=== PATIENT | female | born 1945 | race Caucasian/White ===

== ENCOUNTER 2018-05-11 12:46 | Outpatient (REF) | payer MEDICARE, BC, SELFPAY ==
[2018-05-11 13:46] LABS: Anion Gap 5.2 mmol/L (3-11); BUN 16 mg/dL (7-18); CO2 31.8 mmol/L (21.0-32.0); CREATININE 1.05 mg/dL (0.55-1.02); Calcium 9.4 mg/dL (8.5-10.1); Chloride 101 mmol/L (98-107); Estimated GFR 51.37 (mL/min/1.73m2); Glucose 179 mg/dL (70-100); Sodium 138 mmol/L (136-145)
== END 2018-05-11 13:06 ==
LOC: NCHCN 12:46
PROVIDERS: PCP Internal Medicine; Visit Provider Internal Medicine
DX: E10.9 Type 1 diabetes mellitus without complications (principal)
CPT/HCPCS: 80048

== ENCOUNTER 2018-05-24 00:45 | Outpatient (CLI) | payer MEDICARE, BC, SELFPAY ==
--- NOTE | 2018-05-24 09:15 | DI.CT_ITS ---
SYMPTOMS/DIAGNOSIS: PAROTID GLAND MASS, K11.[address]: CT scan of the neck was performed following the uneventful administration of intravenous contrast material. There are no priors for comparison. In the right parotid gland, there is an enhancing mass with cystic and solid components. The mass measures 2.9 cm AP x 2.6 cm transverse x 2.7 cm craniocaudad. No other right parotid masses are identified. The left parotid gland has a normal appearance. The submandibular glands are unremarkable. No significant cervical adenopathy is appreciated. The orbits and retro-orbital soft tissues are unremarkable. There is a mucous retention cyst or polyp in the right maxillary sinus. There is mild mucosal thickening in the right maxillary sinus. The remaining visualized paranasal sinuses are clear. The mastoid air cells are well pneumatized. The nasopharyngeal, oropharynx, hypopharynx and larynx are unremarkable. The thyroid gland has a normal appearance. The lung apices show no focal infiltrates. There is atherosclerosis of the cervical carotid arteries. The retropharyngeal soft tissues are unremarkable. There are degenerative changes seen in the cervical spine. IMPRESSION: 1. 2.9 cm complex right parotid mass. Differential considerations include both benign and malignant parotid tumors, lymphadenopathy or possible abscess. 2. No other cervical mass or adenopathy.
[2018-05-24] MEDS: Omnipaque 350 MG/ML 100 ML BTL IJ (09:23)
== END 2018-05-24 01:05 ==
PROVIDERS: PCP Internal Medicine; Visit Provider Internal Medicine
DX: K11.8 Other diseases of salivary glands (principal); J33.8 Other polyp of sinus
CPT/HCPCS: 70491; J3490

== ENCOUNTER 2018-11-28 14:05 | Outpatient (REF) | payer MEDICARE, BC, SELFPAY ==
[2018-11-28 22:20] LABS: Hemoglobin A1C 8.9 % (4.5-6.2)
== END 2018-11-28 14:25 ==
LOC: NCHCN 14:05
PROVIDERS: PCP Internal Medicine; Visit Provider Internal Medicine
DX: E10.9 Type 1 diabetes mellitus without complications (principal); I10 Essential (primary) hypertension; I25.810 Atherosclerosis of coronary artery bypass graft(s) without angina pectoris
CPT/HCPCS: 83036

== ENCOUNTER 2019-06-07 13:57 | Outpatient (REF) | payer MEDICARE, BC, SELFPAY ==
[2019-06-07 12:45] LABS: Anion Gap 8.2 mmol/L (3-11); BUN 16 mg/dL (7-18); CO2 28.8 mmol/L (21.0-32.0); CREATININE 0.98 mg/dL (0.55-1.02); Calculated LDL 61 mg/dL (<100); Chloride 104 mmol/L (98-107); Cholesterol 122 mg/dL (<200); Estimated GFR 55.48 (mL/min/1.73m2); Glucose 148 mg/dL (74-106); HDL Cholesterol 49 mg/dL (40-60); Potassium 4.7 mmol/L (3.5-5.1); Sodium 141 mmol/L (136-145); Triglyceride 60 mg/dL (<150)
== END 2019-06-07 14:17 ==
LOC: NCHCN 13:57
PROVIDERS: PCP Internal Medicine; Visit Provider Internal Medicine
DX: E78.5 Hyperlipidemia, unspecified (principal); I10 Essential (primary) hypertension
CPT/HCPCS: 80048; 80061

== ENCOUNTER 2019-10-23 01:13 | Outpatient (CLI) | payer MEDICARE, BC, SELFPAY ==
--- NOTE | 2019-10-23 | DI.MAMMO_ITS ---
EXAM: MG MAMMO SCREENING CLINICAL HISTORY: SCREENING, Z12.31 TECHNIQUE: Bilateral full field digital CC and MLO mammographic images were obtained with 3D tomosyn thesis and utilizing computer aided detection (CAD). COMPARISON: Available for comparison. FINDINGS: Masses/Architectural Distortion: There is an area of breast asymmetry in the medial posterior right b reast on the craniocaudad view. Microcalcifications: No suspicious pleomorphic-type are seen. Skin Thickening/Nipple Retraction: None. IMPRESSION: 1. Area of asymmetric breast tissue in the medial posterior right breast seen on the craniocaudad vie w. 2. Spot compression view and right breast ultrasound are requested for further evaluation. BI-RADS Category 0 - Assessment Incomplete: Need additional imaging evaluation Breast Density - Category C - Heterogeneously dense The mammogram demonstrates the patient's breast tissue is dense. Dense breast tissue is very common a nd is not abnormal but dense breast tissue can make it harder to find cancer on a mammogram. Also, de nse breast tissue may increase their breast cancer risk. This information [facility] the [facility] was provided to the patient to raise their awareness. Use this report when you speak wi th the patient about their risks for breast cancer, which includes their family history. At that time , you may recommend for more screening tests (Ultrasound or MRI) as they might be useful based on the ir risk. A negative radiographic report should not delay biopsy if a dominant or clinically suspicious mass is present. Up to ten percent of cancers are not identified on mammography. A negative report may reinforce clinical impression. Adenosis and dense breasts may obscure an underlying neoplasm. False positive reports average 6 to 10%. Patient will receive a letter notifying them of these results.
== END 2019-10-23 01:33 ==
PROVIDERS: PCP Internal Medicine; Visit Provider Internal Medicine
DX: Z12.31 Encounter for screening mammogram for malignant neoplasm of breast (principal); N64.89 Other specified disorders of breast
CPT/HCPCS: 77063; 77067

== ENCOUNTER 2019-11-06 01:01 | Outpatient (CLI) | payer MEDICARE, BC, SELFPAY ==
--- NOTE | 2019-11-06 09:10 | DI.MAMMO_ITS ---
EXAM: MG MAMMO SCREEN CALL BACK UNI CLINICAL HISTORY: F/U MAMMO, ASYMMETRIC BREAST TISSUE, MEDIAL POST RT BREAST TECHNIQUE: Mammograms were interpreted according to the usual protocol including computer analysis w ith CAD system, tomosynthesis and C-view imaging. COMPARISON: FINDINGS: Additional mammographic views of the right breast and right breast ultrasound are interpreted in conj unction. These examinations were obtained to evaluate questionable area asymmetric density projected in medial portion of right breast on CC view of recent mammogram. Additional mammographic views garrett l to show a discrete mass. Breast ultrasound shows no evidence of a mass or cyst. IMPRESSION: No specific evidence of malignancy at this time. Follow-up unilateral right breast mammogram recomme nded in 6 months. BI-RADS Category 3 - 6 month - Probably Benign Finding: Recommend follow-up mammography in 6 months Breast Density - Category C - Heterogeneously dense
== END 2019-11-06 01:21 ==
PROVIDERS: PCP Internal Medicine; Visit Provider Internal Medicine
DX: Z12.31 Encounter for screening mammogram for malignant neoplasm of breast (principal); R92.8 Other abnormal and inconclusive findings on diagnostic imaging of breast
CPT/HCPCS: 76642; 77063; 77067

== ENCOUNTER 2019-11-29 12:42 | Outpatient (REF) | payer MEDICARE, BC, SELFPAY | END 2019-11-29 13:02 | LOC: NCHCN 12:42 | PROVIDERS: PCP Internal Medicine; Visit Provider Internal Medicine | DX: R30.0 Dysuria (principal) | CPT/HCPCS: 87077; 87086; 87186 ==

== ENCOUNTER 2020-05-13 01:13 | Outpatient (CLI) | payer MEDICARE, BC, SELFPAY ==
--- NOTE | 2020-05-13 09:25 | DI.MAMMO_ITS ---
EXAM: MG MAMMO DIAGNOSTIC UNI CLINICAL HISTORY: DIAGNOSTIC, 6 MONTH FOLLOW UP, R92.8. TECHNIQUE: Craniocaudal and mediolateral oblique Full Field Digital Mammography views of the right b reast with Computer Aided Diagnosis followed by Tomosynthesis. COMPARISON: Priors available for comparison. FINDINGS: Mammography/Tomosynthesis: Masses/Architectural Distortion: None seen. Microcalcifictions: No suspicious pleomorphic-type are seen. Skin Thickening/Nipple Retraction: None. IMPRESSION: 1. No evidence of malignancy is noted. 2. Unless there is more urgent need, follow-up screening mammography is recommended, as per [employer] guidelines. 3. The findings were discussed with the patient on the date of the examination. BI-RADS Category 1 - Negative Breast Density - Category C - Heterogeneously dense Breast density Category C or D implies that the patient has dense breast tissue. Dense breast tissue can make it harder to find cancer on a mammogram. Dense breast tissue is also associated with an incr eased risk of breast cancer. This information about the result of the mammogram report was provided to the patient to raise their awareness. Use this report when you speak with the patient about their risks for breast cancer, which includes their family history. At that time, you may recommend additional screening tests (Ultrasoun d or MRI) as these tests may add significant information. A negative radiographic report should not delay biopsy if a dominant or clinically suspicious mass is present. Up to ten percent of cancers are not identified on mammography. A negative report may reinforce clinical impression. Adenosis and dense breasts may obscure an underlying neoplasm. False positive reports average 6 to 10%. Patient will receive a letter notifying them of these results.
== END 2020-05-13 01:14 ==
LOC: DI 01:13
PROVIDERS: PCP Internal Medicine; Visit Provider Internal Medicine
DX: R92.8 Other abnormal and inconclusive findings on diagnostic imaging of breast (principal); R92.2 Inconclusive mammogram
CPT/HCPCS: 77061; 77065; G0279

== ENCOUNTER 2020-06-19 08:53 | Outpatient (REF) | payer MEDICARE, BC, SELFPAY ==
--- OUTSIDE RECORDS SUMMARY | 2020-06-19 08:56 | XMS_ITS ---
:1945 Author Care Team Providers Name Role Phone DR. MAEGAN REY Primary Care Provider [phone] DR. MAEGAN REY Referring Provider [phone] DR. LO REY Primary Care Provider [phone] DR. LO REY Referring Provider [phone] Allergies Code Code System Name Reaction Severity Status Onset Adhesive Tape ? ? Active ? 703 RxNorm Amiodarone ? ? Active ? 623689 RxNorm Betadine ? ? Active ? 152860 RxNorm Boniva ? ? Active ? 778620 RxNorm Celebrex ? ? Active ? 2670 RxNorm Codeine ? ? Active ? DARVOCET-N ? ? Active ? 909203 RxNorm Fosamax ? ? Active ? 094451 RxNorm Macrobid ? ? Active ? 390013 RxNorm Neurontin ? ? Active ? 780 RxNorm Oxycodone ? ? Active ? 029137 RxNorm Pravachol ? ? Active ? 698822 RxNorm Zestril ? ? Active ? 468197 RxNorm Zetia ? ? Active ? 001407 RxNorm Zocor ? ? Active ? Medications Name Status Start Date Stop Date ? ? Asprin Ec Low Dose 81 mg tablet,delayed release Active ? Not available Take 1 tablet every day by oral route. atorvastatin 40 mg tablet Active ? Not av ailable Take 1 tablet every day by oral route for 90 days. bisoprolol fumarate 5 mg tablet Completed ? 01/26/2017 clindamycin HCl 300 mg capsule Completed ? 0 07/28/2016 Diovan 40 mg tablet Active ? Not availabl e Take 1 tablet every day by oral route. Embrace PRO test strips Active ? Not avai lable glucagon (human recombinant) 1 mg injection kit Active ? Not available INJECT 1 MILLILITER (1 MG) BY SUBCUTANEOUS ROUTE ONCE Humalog U-100 Insulin 100 unit/mL subcutaneous solution Active ? Not available 40-50 units via insulin pump Lantus Solostar U-100 Insulin 100 unit/mL (3 mL) subcutaneous pe n Active ? Not available Inject 28 units by subcutaneous route. meclizine 25 mg tablet Active ? Not avail able as needed Prevacid 30 mg capsule,delayed release Active ? Not available Take 1 capsule every day by oral route. tramadol 37.5 mg-acetaminophen 325 mg tablet Completed ? 08/09/2017 Take 1 tablet twice a day by oral route as needed. Vitamin B1 (Thiamine) 100 mg tablet Active ? Not available Take 1 tablet every day by oral route. Vitamin B6 200 mg tablet,extended release Active ? Not available Take 1 tablet every day by oral route. Vitamin D3 50 mcg (2,000 unit) capsule Active ? Not available Take 1 capsule every day by oral route. Problems Name Status Onset Date Source ? Charcot's Joint of Foot Active 07/28/2016 ? Type 1 Diabetes Mellitus Active 07/28/2016 ? Myocardial Infarction Active 07/28/2016 ? Osteoporosis Active 01/26/2017 ? Procedures Date Name Performed by ? ? Cataract Surgery Information not avai lable ? Cholecystectomy Information not avai lable ? Removal of Ovary(s) Information not avai lable ? Removal of Fallopian Tube Information no t available ? Hysterectomy Information not avai lable ? Breast Surgery Procedure Information not available ? Cardiac Surgery Procedure Information no t available ? Back Surgery Information not avai lable Notes: amputation great,2,3,4 to e right amputtion 2 toe left Results Lab Results Date Name Specimen Result Interpretation Description Value Range Status Address ? 08/24/2017 HbA1C ? No observation ? ? ? [facility] (Hemoglobin recorded. [facility] a1C), [facility]: [address] [place] [address] 08/09/2017 Glucose, Blood ? Blood 177 ? ? [facility] - Fingerstick, arterial Glucose: mg/dl Specialty: [address] [place] [address] 02/04/2017 HbA1C ? No observation ? ? ? [facility] (Hemoglobin recorded. [facility] a1C), [facility]: [address] [place] [address] 07/29/2016 HbA1C ? No observation ? ? ? [facility] (Hemoglobin recorded. [facility] a1C), [facility]: [address] [place] [address] ? Glucose, Blood ? Blood 119 ? ? [facility] - Fingerstick, capillary Glucose: mg/dl Specialty: [address] [facility] ? Glucose, Blood ? Blood 95 ? ? [facility] - Fingerstick, capillary Glucose: mg/dl Specialty: [address] [facility] Past Encounters None recorded. Social History Tobacco Smoking Status Never Smoker Notes: 7 Vaccine List None recorded. Plan of Care Reminders Provider Appointments None ? ? recorded. Lab None ? ? recorded. Referral None ? ? recorded. Procedures None ? ? recorded. Surgeries None ? ? recorded. Imaging None ? ? recorded. Vitals 08/09/2017 01:00PM ENDOCRINOLOGY FOLLOW UP 30 Height Weight BMI Blood Pressure 172.72 cm 80.29 kg 26.9 kg/m2 146/68 mm[Hg] 01/26/2017 08:30AM ENDOCRINOLOGY FOLLOW UP 30 Height Weight BMI Blood Pressure 172.72 cm 85.28 kg 28.6 kg/m2 146/72 mm[Hg] 07/28/2016 10:30AM ENDOCRINOLOGY NEW PATIENT 60 Height Weight BMI Blood Pressure 172.72 cm 83.46 kg 28 kg/m2 122/62 mm[Hg]
[2020-06-19 13:49] LABS: Anion Gap 8.9 mmol/L (3-11); BUN 22 mg/dL (7-18); CO2 27.1 mmol/L (21.0-32.0); Calcium 9.5 mg/dL (8.5-10.1); Chloride 102 mmol/L (98-107); Estimated GFR 54.05 (mL/min/1.73m2); Glucose 270 mg/dL (74-106); Potassium 4.3 mmol/L (3.5-5.1); Sodium 138 mmol/L (136-145)
== END 2020-06-19 08:54 | disposition home or self-care (01) ==
LOC: NCHCN 08:53
PROVIDERS: PCP Internal Medicine; Visit Provider Internal Medicine
DX: I10 Essential (primary) hypertension (principal)
CPT/HCPCS: 80048

== ENCOUNTER 2020-10-28 03:44 | Outpatient (CLI) | payer MEDICARE, BC, SELFPAY ==
[2020-10-28 07:50] LABS: Platelet Count 232 10^3/uL (130-400)
[2020-10-28 08:08] LABS: Prothrombin Time 9.9 sec (9.3-11.0)
== END 2020-10-28 03:45 | disposition home or self-care (01) ==
LOC: LBO 03:44
PROVIDERS: PCP Internal Medicine; Visit Provider Internal Medicine
DX: Z01.812 Encounter for preprocedural laboratory examination (principal); I25.810 Atherosclerosis of coronary artery bypass graft(s) without angina pectoris
CPT/HCPCS: 36415; 85049; 85610

== ENCOUNTER 2020-11-12 09:45 | Outpatient (REF) | payer MEDICARE, BC, SELFPAY ==
--- NOTE | 2020-11-12 08:30 | PAPNONF_PTH ---
PATIENT: Liane Cole LOC: [facility] U#:[id number] AGE/SX: 75/F ROOM: RE11/12/[address]: Domenico Perez MD : 1945 BED: DIS: 11/12/2020 SPEC #: [id number] RECD: 11/12/20 17:57 STATUS: VERA RERandy #: [id number] RADHA: 11/12/20 08:[address]: Domenico Perez DEPT: [facility] Cytology RECD BY: Daniela Montanez ENTERED: 11/12/20 17:57 SP TYPE: FANNY LLOYD DR: Alexander Adams Tissues: 1 - BODY FLUID CYTO-FINE NEEDLE [facility]IRATE[facility] Procedures: BODY FLUID CYTO-FINE NEEDLE ASPIRATE[facility] Comments: [id number]
== END 2020-11-12 09:46 | disposition home or self-care (01) ==
LOC: LBN 09:45
PROVIDERS: PCP Internal Medicine; Visit Provider Otolaryngology
DX: K11.8 Other diseases of salivary glands (principal)
CPT/HCPCS: 88104

== ENCOUNTER 2020-11-20 01:40 | Outpatient (CLI) | payer MEDICARE, BC, SELFPAY ==
--- NOTE | 2020-11-20 | DI.CT_ITS ---
Exam(s) CT LUMBAR SPINE WO EXAM: CT LUMBAR SPINE WO CLINICAL HISTORY: SPINAL STENOSIS, M48.06,DJD,M47.9,FAILED LUMBAR MYELOGRAM. TECHNIQUE: Imaging Protocol: Axial computed tomography images with coronal and sagittal reformatted images were created and reviewed COMPARISON: CR LUMBAR SPINE COMPLETE from 07/17/2013 CR LUMBAR SPINE AP, LAT from 07/25/2013 CR LUMBAR SPINE AP, LAT from 07/25/2013 FINDINGS: The prior 2013 plain films reveal transitional anatomy, with rudimentary 12th ribs CT SCAN LUMBAR SPINE: Bones: There is fusion hardware at L4-5 level comprised of posterior fusion bars and bilateral intra pedicular screws at these 2 levels. There is also an intervertebral disc space device at L4-5 level this is not retropulsed into the spinal canal.. There are no lytic osseous lesions evident. INDIVIDUAL LEVELS: T12-L1:No disc herniation nor canal stenosis. Facet joints unremarkable. No foraminal stenosis. L1-2: No disc herniation nor canal stenosis. Facet joints unremarkable. No foraminal stenosis. L2-3: This level now exhibits decreased disc height and vacuum phenomenon and there is a prominent S chmorl's node invagination into the inferior endplate of L2. There is mild posterior bony ridging. There is posterior annular bulging at this level which flattens the thecal sac resulting in mild-mode rate central spinal canal stenosis at this level. There are moderate degenerative changes in both fa cet joints at this level. There is mild bilateral foraminal stenosis due to the disc height loss. L3-4: This is 1 level above the fusion. This level maintains normal disc height. Somewhat difficul t to evaluate the disc because of beam hardening artifact from the somewhat cephalad angulated intra pedicular screw screws at L4 level. However, there does not appear to be an obvious disc herniation and central canal dimensions are lower normal. There is mild foraminal stenosis on both sides at thi s level. L4-5: This is the level of the fusion. There is 5 millimeter anterior fixed listhesis of L4 upon L5 , this secured by the hardware. On the left side of this disc space there is posterior bony ridging which extends posteriorly 5 millimeters. This extends into the left lateral recess. Similar finding is not seen on the opposite-right side at this level. There has been removal of posterior osseous e lements. Actual central canal dimensions are within normal limits. No significant foraminal stenosi s evident at this level. L5-S1: This is 1 level below the fusion. This level exhibits normal-preserved disc height on both s ides of the disc space and no evidence of disc herniation or central canal stenosis. Exiting neural foramina are patent bilaterally. There are mild-moderate degenerative facet joint changes at this le margo The visualized sacroiliac joints and sacrum appear unremarkable. PARASPINAL SOFT TISSUES: Visualized paraspinal tissues appear unremarkable. IMPRESSION: 1. Fusion hardware at L4-5 level. Findings as above. RADIATION DOSE DELIVERED: 764.43mGy.cm Total DLP DATA REPOSITORY: All CT scans at this facility are submitted to the National Radiology Data Registry (NRDR) Dose Index Registry (DIR) with the [employer] (ACR). RADIATION OPTIMIZATION: All CT scans at this facility use at least one of these dose optimization te chniques: automated exposure control; mA and/or kV adjustment per patient size (includes targeted exa ms where dose is matched to clinical indication); or iterative reconstruction.
== END 2020-11-20 02:00 ==
PROVIDERS: PCP Internal Medicine; Visit Provider Internal Medicine
DX: M47.817 Spondylosis without myelopathy or radiculopathy, lumbosacral region (principal); M48.061 Spinal stenosis, lumbar region without neurogenic claudication; M43.26 Fusion of spine, lumbar region
CPT/HCPCS: 72131

== ENCOUNTER 2021-05-19 09:43 | Outpatient (REF) | payer MEDICARE, BC, SELFPAY ==
--- NOTE | 2021-05-19 09:00 | PAPNONF_PTH ---
PATIENT: Liane Cole LOC: [facility] U#:[id number] AGE/SX: 75/F ROOM: RE05/19/[address]: Domenico Perez MD : 1945 BED: DIS: 05/19/2021 SPEC #: [id number] RECD: 05/19/21 16:24 STATUS: VERA RERandy #: [id number] RADHA: 05/19/21 09:[address]: Domenico Perez DEPT: [facility] Cytology RECD BY: Daniela Montanez ENTERED: 05/19/21 16:25 SP TYPE: FANNY LLOYD DR: Alexander Adams Tissues: 1 - BODY FLUID CYTO-FINE NEEDLE [facility]ATE[facility] Procedures: BODY FLUID CYTO-FINE NEEDLE ASPIRATE[facility] Comments: [id number] (OFFICE SUBMITTED IN [facility])
== END 2021-05-19 09:44 | disposition home or self-care (01) ==
LOC: LBN 09:43
PROVIDERS: PCP Internal Medicine; Visit Provider Otolaryngology
DX: D37.030 Neoplasm of uncertain behavior of the parotid salivary glands (principal)
CPT/HCPCS: 88104

== ENCOUNTER 2021-06-16 18:34 | Outpatient (REF) | payer MEDICARE, BC, SELFPAY ==
[2021-06-16 14:57] LABS: Anion Gap 7.8 mmol/L (3-11); BUN 20 mg/dL (7-18); CO2 27.2 mmol/L (21.0-32.0); Chloride 103 mmol/L (98-107); Estimated GFR 53.91 (mL/min/1.73m2); Glucose 139 mg/dL (74-106); Potassium 3.9 mmol/L (3.5-5.1); Sodium 138 mmol/L (136-145)
== END 2021-06-16 18:35 | disposition home or self-care (01) ==
LOC: NCHCN 18:34
PROVIDERS: PCP Internal Medicine; Visit Provider Internal Medicine
DX: I10 Essential (primary) hypertension (principal); E10.9 Type 1 diabetes mellitus without complications
CPT/HCPCS: 80048

== ENCOUNTER 2021-06-23 01:17 | Outpatient (CLI) | payer MEDICARE, BC, SELFPAY ==
--- NOTE | 2021-06-23 | DI.MAMMO_ITS ---
Exam(s) MAMMO SCREENING EXAM: MAMMO SCREENING CLINICAL HISTORY: SCREENING, Z12.39 TECHNIQUE: Mammograms were interpreted according to the usual protocol including computer analysis w [employer] CAD system, tomosynthesis and C-view imaging. COMPARISON: 2011 through 2020 FINDINGS: The breasts are composed of heterogeneously dense fibroglandular densities, Breast Density category C . No suspicious masses or suspicious microcalcifications are seen. Scarring left upper breast related to prior biopsy. Stable area of nodularity lower inner quadrant left breast. Vascular calcification s. Pacemaker over left pectoral muscle.. No skin thickening or abnormal axillary lymph nodes are seen. There has been no significant change from prior exams. IMPRESSION: BI-RADS Cat 2 - Benign Findings Yearly screening mammography is recommended. Breast Density Category C, heterogeneously Dense. The mammogram demonstrates the patient's breast tissue is dense. Dense breast tissue is very common a nd is not abnormal but dense breast tissue can make it harder to find cancer on a mammogram. Also, de nse breast tissue may increase breast cancer risk. This information about the result of the mammogram report was provided to the patient to raise their awareness. Use this report when you speak with the patient about their risks for breast cancer, which includes their family history. At that time, you may recommend additional screening tests (Ultrasound or MRI) as they might be useful based on their r isk. A negative radiographic report should not delay biopsy if a dominant or clinically suspicious mass is present. Up to ten percent of cancers are not identified on mammography. A negative report may reinforce clinical impression. Adenosis and dense breasts may obscure an underlying neoplasm. False positive reports average 6 to 10%.
== END 2021-06-23 01:37 ==
PROVIDERS: PCP Internal Medicine; Visit Provider Internal Medicine
DX: Z12.31 Encounter for screening mammogram for malignant neoplasm of breast (principal)
CPT/HCPCS: 77063; 77067

== ENCOUNTER 2021-12-23 17:57 | Outpatient (REF) | payer MEDICARE, BC, SELFPAY ==
[2021-12-23 16:47] LABS: Bilirubin Negative (Negative); Blood Negative (Negative); Clarity Clear (Clear); Glucose 500 mg/dL (Negative); Ketones Negative (Negative); Leukocyte Esterase Moderate (Negative); Nitrite Negative (Negative); Specific Gravity >= 1.030 (1.005-1.025)
[2021-12-23 16:59] LABS: Bacteria Few HPF (Negative); Crystals Many Calcium Oxalate HPF (Negative); Epithelial Cells Many HPF (Negative); Mucus Negative (Negative); Other Cells Negative (Negative); RBC Negative HPF (0-2); WBC >50 HPF (0-5)
[2021-12-23 17:00] LABS: C & S Indicated? No/Sq. Contamination; Casts Negative LPF (Negative)
== END 2021-12-23 17:58 | disposition home or self-care (01) ==
LOC: NCHCN 17:57
PROVIDERS: PCP Internal Medicine; Visit Provider Internal Medicine
DX: N39.3 Stress incontinence (female) (male) (principal)
CPT/HCPCS: 81003; 81015; 87086

== ENCOUNTER 2021-12-24 17:10 | Outpatient (REF) | payer MEDICARE, BC, SELFPAY ==
[2021-12-24 19:19] LABS: Bilirubin Negative (Negative); Blood Negative (Negative); Clarity Clear (Clear); Glucose 500 mg/dL (Negative); Ketones Negative (Negative); Leukocyte Esterase Negative (Negative); Nitrite Negative (Negative); Specific Gravity >= 1.030 (1.005-1.025)
[2021-12-24 19:41] LABS: Bacteria Rare HPF (Negative); Epithelial Cells Few HPF (Negative); RBC 0-2 HPF (0-2)
[2021-12-24 19:42] LABS: C & S Indicated? C&S Done As Ordered; Crystals Many Calcium Oxalate HPF (Negative); Mucus Trace (Negative)
== END 2021-12-24 17:11 | disposition home or self-care (01) ==
LOC: NCHCN 17:10
PROVIDERS: PCP Internal Medicine; Visit Provider Internal Medicine
DX: N39.3 Stress incontinence (female) (male) (principal)
CPT/HCPCS: 81003; 81015; 87086

== ENCOUNTER 2022-01-18 15:27 | Outpatient (REF) | payer MEDICARE, BC, SELFPAY | END 2022-01-18 15:28 | disposition home or self-care (01) | LOC: NCHCN 15:27 | PROVIDERS: PCP Internal Medicine; Visit Provider Internal Medicine | DX: R30.0 Dysuria (principal) | CPT/HCPCS: 87077; 87086; 87186 ==

== ENCOUNTER 2022-04-27 16:50 | Outpatient (REF) | payer MEDICARE, BC, SELFPAY | END 2022-04-27 16:51 | disposition home or self-care (01) | LOC: NCHCN 16:50 | PROVIDERS: PCP Internal Medicine; Visit Provider Internal Medicine | DX: R30.0 Dysuria (principal) | CPT/HCPCS: 87077; 87086; 87186 ==

== ENCOUNTER 2022-07-07 01:33 | Outpatient (CLI) | payer MEDICARE, BC, SELFPAY ==
--- NOTE | 2022-07-07 08:20 | DI.MAMMO_ITS ---
Exam(s) MAMMO SCREENING EXAM: MAMMO SCREENING CLINICAL HISTORY: SCREENING,Z12.31 TECHNIQUE: Mammograms were interpreted according to the usual protocol including computer analysis w [employer] CAD system, tomosynthesis and C-view imaging. COMPARISON: 2013 through 2021 FINDINGS: The breasts are composed of heterogeneously dense fibroglandular densities, Breast Density category C . No suspicious masses or suspicious microcalcifications are seen. No skin thickening or abnormal axillary lymph nodes are seen. There has been no significant change from prior exams. Pacemaker again noted over the left upper pec aisha muscle. IMPRESSION: BI-RADS Category 1, Negative mammogram. Yearly screening mammography is recommended. Breast Density Category C, heterogeneously Dense. The mammogram demonstrates the patient's breast tissue is dense. Dense breast tissue is very common a nd is not abnormal but dense breast tissue can make it harder to find cancer on a mammogram. Also, de nse breast tissue may increase breast cancer risk. This information about the result of the mammogram report was provided to the patient to raise their awareness. Use this report when you speak with the patient about their risks for breast cancer, which includes their family history. At that time, you may recommend additional screening tests (Ultrasound or MRI) as they might be useful based on their r isk. A negative radiographic report should not delay biopsy if a dominant or clinically suspicious mass is present. Up to ten percent of cancers are not identified on mammography. A negative report may reinforce clinical impression. Adenosis and dense breasts may obscure an underlying neoplasm. False positive reports average 6 to 10%.
== END 2022-07-07 01:53 ==
PROVIDERS: PCP Internal Medicine; Visit Provider Internal Medicine
DX: Z12.31 Encounter for screening mammogram for malignant neoplasm of breast (principal)
CPT/HCPCS: 77063; 77067

== ENCOUNTER 2022-08-03 09:28 | Outpatient (REF) | payer MEDICARE, BC, SELFPAY ==
[2022-08-03 14:35] LABS: HCT 37.7 % (36.0-46.0); HGB 12.3 g/dL (11.2-15.7); MCH 27.5 pg (27.0-33.0); MCHC 32.6 % (32.0-36.0); MCV 84 fL (80-95); Platelet Count 214 10^3/uL (130-400); RBC 4.48 10^6/uL (3.93-5.22); RDW 13.5 % (11.7-14.6); RDW-SD 41.8 fL; WBC 9.42 10^3/uL (4.4-10.8)
[2022-08-03 15:04] LABS: Anion Gap 5.8 mmol/L (3-11); BUN 19 mg/dL (7-18); CO2 29.2 mmol/L (21.0-32.0); CREATININE 1.1 mg/dL (0.55-1.02); Calcium 9.7 mg/dL (8.5-10.1); Chloride 104 mmol/L (98-107); Estimated GFR 51.75 (mL/min/1.73m2); Glucose 222 mg/dL (74-106); Potassium 4.7 mmol/L (3.5-5.1); Sodium 139 mmol/L (136-145)
== END 2022-08-03 09:29 | disposition home or self-care (01) ==
LOC: NCHCN 09:28
PROVIDERS: PCP Internal Medicine; Visit Provider Internal Medicine
DX: I10 Essential (primary) hypertension (principal); E10.40 Type 1 diabetes mellitus with diabetic neuropathy, unspecified; I25.810 Atherosclerosis of coronary artery bypass graft(s) without angina pectoris; K21.9 Gastro-esophageal reflux disease without esophagitis; F32.89 Other specified depressive episodes; R26.89 Other abnormalities of gait and mobility
CPT/HCPCS: 80048; 85027

== ENCOUNTER 2022-12-13 14:13 | Outpatient (REF) | payer MEDICARE, BC, SELFPAY | END 2022-12-13 14:14 | disposition home or self-care (01) | LOC: LBN 14:13 | PROVIDERS: PCP Internal Medicine; Visit Provider Podiatrist | DX: L03.032 Cellulitis of left toe (principal); S90.212A Contusion of left great toe with damage to nail, initial encounter | CPT/HCPCS: 87077; 87070; 87075; 87186; 87205 ==

== ENCOUNTER → 2022-12-20 02:29 | Outpatient (CLI) | payer MEDICARE, BC, SELFPAY ==
--- NOTE | 2022-12-20 10:13 | DI.RAD_ITS ---
Exam(s) XR FOOT LT COMPLETE EXAM: XR FOOT LT COMPLETE CLINICAL HISTORY: contusion left great toe,CELLULITIS,L03.90,S90.212A. TECHNIQUE: 2D digital imaging was performed of the left foot. Three images were obtained. AP, obli que and lateral views were obtained. COMPARISON: No exams were available for comparison FINDINGS: BONES: No acute fracture is present. No bony destructive lesion is seen. There are postsurgical torres es of an arthrodesis at the interphalangeal joint of the great toe. There has been resection of the distal phalanx of the 2nd toe. JOINTS: No dislocation present. There are degenerative changes seen in the foot characterized by join t space narrowing and osteophytes. There is chronic loss of the normal alignment of the tarsometatar otis joints. SOFT TISSUE: Atherosclerosis. There is soft tissue swelling of the great toe. IMPRESSION: Soft tissue swelling of the great toe. No findings radiographically to suggest osteomyelitis. DATA REPOSITORY: RADIATION DOSE DELIVERED:
== END ==
PROVIDERS: PCP Internal Medicine; Visit Provider Podiatrist
DX: X58.XXXA Exposure to other specified factors, initial encounter (principal); S90.212A Contusion of left great toe with damage to nail, initial encounter
CPT/HCPCS: 73630

== ENCOUNTER 2023-03-02 11:26 | Outpatient (REF) | payer MEDICARE, BC, SELFPAY | END 2023-03-02 11:27 | disposition home or self-care (01) | LOC: NCHCN 11:26 | PROVIDERS: PCP Family Medicine; Visit Provider Family Medicine | DX: N39.0 Urinary tract infection, site not specified (principal); R82.89 Other abnormal findings on cytological and histological examination of urine | CPT/HCPCS: 87086 ==

== ENCOUNTER → 2023-03-23 07:54 | Outpatient (BNVA) | payer MEDICARE, BC, SELFPAY | PROVIDERS: PCP Internal Medicine; Referring Provider Internal Medicine; Visit Provider Podiatrist | DX: E10.43 Type 1 diabetes mellitus with diabetic autonomic (poly)neuropathy (principal); E10.610 Type 1 diabetes mellitus with diabetic neuropathic arthropathy; E10.621 Type 1 diabetes mellitus with foot ulcer; L84 Corns and callosities; L60.3 Nail dystrophy; L03.90 Cellulitis, unspecified; I10 Essential (primary) hypertension | CPT/HCPCS: 11055; 11720; 97597 ==

== ENCOUNTER 2023-05-22 00:13 | Inpatient (IN) | payer MEDICARE, BC, SELFPAY ==
[2023-05-22] VITALS (20 sets, daily range): BP systolic 107–212; BP diastolic 20–84; PULSE 76–92; RESP 14–20; TEMP 35.8–37; O2SAT 97–100; BMI 25.5
--- NOTE | 2023-05-22 00:35 | W.ED.GENAD ---
HPI General Mode of arrival: EMS. Date/Time Provider Initiated Documentation: 05/22/23 00:26. Limitations to Documentation: no limitations. Information obtained by: patient and EMS. HPI Narrative: 77yo F with hx DM, HTN, HLD, CAD, ICD in place, presenting with left hip pain after a fall. Was in the bathroom, thought she was close to the wall but was not, lost her balance and fell landing on her left side. No HS or LOC. Baby ASA, no other AC. Reports pain in her left hip radiating down her left thigh, denies pain or injury elsewhere. No numbness or tingling in LLE. Was in her usual state of health prior to this event. No fevers, chills, rash, nausea, vomiting, lightheadedness, numbness, weakness, chest pain, shortness of breath, syncope, presycnope, or other concerns. Related Data Home Medications Medication Instructions Recorded Confirmed insulin aspart U-100 100 unit/mL 100 unit SQ DAILY 08/28/12 05/22/23 subcutaneous cartridge (Novolog PenFill U-100 Insulin aspart) thiamine mononitrate (vit B1) 100 200 mg PO DAILY 08/28/12 05/22/23 mg tablet (Vitamin B-1 (mononitrate)) atorvastatin 20 mg tablet (Lipitor) 40 mg PO DAILY 10/18/12 05/22/23 insulin glargine 100 unit/mL 28 units SQ DAILY PRN insulin pump 10/18/12 05/22/23 subcutaneous solution (Lantus failure U-100 Insulin) acetaminophen 500 mg capsule 500 mg PO Q6H PRN 11/05/20 05/22/23 cranberry extract 250 mg capsule 250 mg PO DAILY 11/05/20 05/22/23 glucagon 1 mg/0.2 mL subcutaneous 1 mg subcut ONCE 11/05/20 05/22/23 auto-injector vitamin B complex (B 1 tab PO DAILY 11/25/21 05/22/23 Complex-Vitamin B12 tablet) esomeprazole magnesium 40 mg 40 mg PO DAILY 12/30/21 05/22/23 capsule,delayed release pyridoxine (vitamin B6) 100 mg 200 mg PO DAILY 04/29/22 05/22/23 tablet sucralfate 1 gram tablet (Carafate) 1 g PO QACHS 04/29/22 05/22/23 aspirin 81 mg tablet,delayed 81 mg PO DAILY 05/09/22 05/22/23 release insulin regular human 100 unit/mL See Rx Instructions subcut 05/09/22 05/22/23 injection solution (Novolin R USEASDIRECTD Regular U-100 Insulin) meclizine 25 mg tablet 25 mg PO .Q6hrs PRN 05/09/22 05/22/23 valsartan 40 mg tablet 40 mg PO .COMPLEX PRN 05/10/22 05/22/23 cholecalciferol (vitamin D3) 50 5,000 unit PO DAILY 10/21/22 05/22/23 mcg (2,000 unit) tablet (Vitamin D3) duloxetine 40 mg capsule,delayed 40 mg PO DAILY 10/21/22 05/22/23 release silver sulfadiazine 1 % topical 1 applic topical ONCE #50 grams 03/23/23 05/22/23 cream (Silvadene) Previous Rx's Medication Instructions Recorded silver sulfadiazine 1 % topical 1 applic topical ONCE #50 grams 03/23/23 cream (Silvadene) Allergies Allergy/AdvReac Type Severity Reaction Status Date / Time alendronate sodium Allergy Severe chest pain Verified 05/22/23 00:21 [From Fosamax] ezetimibe [From Zetia] Allergy Severe Anaphylaxsi Verified 05/22/23 00:21 s lisinopril [From Zestril] Allergy Severe angioedema Verified 05/22/23 00:21 amiodarone Allergy Mild Skin Rash Verified 05/22/23 00:21 acetaminophen Allergy Other (See Verified 05/22/23 00:21 [From Darvocet-N] Comment) amoxicillin Allergy Other (See Verified 05/22/23 00:21 Comment) iodine Allergy Keller skin Verified 05/22/23 00:21 nitrofurantoin Allergy Other (See Verified 05/22/23 00:21 [From Macrobid] Comment) oxycodone Allergy Other (See Verified 05/22/23 00:21 Comment) propoxyphene Allergy Other (See Verified 05/22/23 00:21 [From Darvocet-N] Comment) pravastatin sodium AdvReac Severe dizziness Verified 05/22/23 00:21 [From Pravachol] celecoxib [From Celebrex] AdvReac Intermediate n/v/d Verified 05/22/23 00:21 gabapentin [From Neurontin] AdvReac Intermediate n/v/d Verified 05/22/23 00:21 simvastatin [From Zocor] AdvReac Intermediate mylagia Verified 05/22/23 00:21 povidone-iodine AdvReac Mild Skin Rash Verified 05/22/23 00:21 [From Betadine] codeine [Codeine] AdvReac n/v/d Verified 05/22/23 00:21 ibandronate sodium AdvReac joint pain Verified 05/22/23 00:21 [From Boniva] propoxyphene napsylate AdvReac n/v/d Verified 05/22/23 00:21 [From Darvocet-N 100] kiwi Allergy Severe Anaphylaxsi Uncoded 05/22/23 00:21 s Ivory Soap Allergy Itching Uncoded 05/22/23 00:21 adhesive tape AdvReac Skin Rash Uncoded 05/22/23 00:21 General Stated Complaint: Fall/Non TraumaCriteria MARJORIE: 3 Review of Systems Narrative: see HPI Exam Narrative Exam Narrative: GENERAL: Alert, no acute distress. SKIN: Warm and well perfused. No rashes, bruises, discolorations or abrasions. HEAD: Atraumatic, normocephalic without edema, discoloration or evidence of trauma. NECK: Trachea midline. No discolorations or edema. CV: Regular rate and rhythm, Normal s1 and s2. No murmurs, rubs, or gallops. PV: Radial pulses 2+ bilaterally and symmetric. Dorsalis pedis pulses 2+ bilaterally and symmetric. 2+ capillary refill. No extremity edema. CHEST: No abrasions or ecchymosis. Chest symmetric with respirations. No chest wall tenderness. Lungs are clear to auscultation bilaterally. ABDOMEN: No ecchymosis or abrasions. Soft, nondistended, nontender. BACK: No abrasions, skin openings, or ecchymosis. Spine without bony tenderness, no step offs. PELVIC: Pelvis stable, MSK: LLE internally rotated and shortened. NEURO: Alert and oriented to person, place, and time. GCS 15. Sensation grossly intact. Strength limited 2/t pain LLE, otherwise 5/5 in bilateral UE and LE. Course Vital Signs Vital signs: Vital Signs Temperature 36 C L 05/22/23 00:12 Pulse 79 05/22/23 00:12 Respiratory Rate 17 05/22/23 00:12 Blood Pressure 207/76 H 05/22/23 00:12 Pulse Oximetry 100 05/22/23 00:12 Temperature 36 C L 05/22/23 00:12 Temperature Source Oral 05/22/23 00:12 Pulse 79 05/22/23 00:12 Respiratory Rate 17 05/22/23 00:12 Respiratory Effort Normal 05/22/23 00:24 Blood Pressure 207/76 H 05/22/23 00:12 Blood Pressure Position Supine 05/22/23 00:12 Pulse Oximetry 100 05/22/23 00:12 Oxygen Delivery Method Room Air 05/22/23 00:12 Oxygen Flow Rate 0 05/22/23 00:12 Pain Level 7 05/22/23 00:12 Medical Decision Making 77yo F with hx DM, HTN, HLD, CAD, ICD in place, presenting with left hip pain after a MFFS. Hypertensive on arrival, vital signs otherwise reassuring. LLE internally rotated and foreshortened on exam, otherwise no significant traumatic findings. Pain control with tylenol/toradol/morphine. Plain films ordered and reviewed, no displaced fracture or dislocation on my view; agree with radiology read below. If no dislocation clinically concerning for occult fracture so CT ordered and independently reviewed, agree with radiology read below with intertroch left femur fracture. Labs reviewed as below, CBC & CMP reassuring with no actionable abnormalities. Discussed with Dr. Juarez orthopedics; plan for OR today. Discussed with hospitalist decontamination worker and accepted to medicine service; awaiting transfer to the floor. Imaging Data Radiologic Study: Imaging: X-Ray Radiologist's impression: IMPRESSION: No acute fracture Radiologic Study #2: Imaging: CT Scan Radiologist's impression: IMPRESSION: 1. Acute comminuted intertrochanteric left femur fracture. 2. Probable cystitis. Quality:SDOH Health Related Social Needs: No Data to Display PFSH All Active Problems (Updated 05/22/23 @ 03:58 by Anamaria Wyman MD) Coronary artery disease (Chronic) Diabetes (Chronic) Closed hip fracture (Acute) Intertrochanteric fracture of left hip (Acute 05/22/23) Diabetes mellitus with foot ulcer due to multiple causes (Acute) Contusion of left great toe with damage to nail (Acute) Cellulitis (Acute) Dystrophia unguium (Acute) Asymmetrical sensorineural hearing loss (Acute) S/P LORETTA-BSO (Acute) Insomnia (Acute) Renal insufficiency (Chronic) Hyperlipemia (Acute) CTS (carpal tunnel syndrome) (Acute) Ventricular arrhythmia (Acute) Spinal stenosis, lumbar (Acute) spinal fusion L4/5 Degenerative joint disease of spine (Acute) Loss of balance (Acute) GERD (gastroesophageal reflux disease) (Chronic) Osteoarthritis of fingers of both hands (Acute) Mass of parotid gland (Acute) Actinic keratoses (Acute) Urinary incontinence (Acute) with recurrent UTIs ICD (implantable cardioverter-defibrillator) in place (Acute 11/13/15) Medtronic John II VR, single lead 6947, [facility] [place] 07/01/2009 CAD (coronary artery disease) (Chronic 11/13/15) 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) (06/26/09) Surgical History H/O breast biopsy History of bilateral salpingo-oophorectomy (BSO) History of cataract surgery History of total abdominal hysterectomy Hx of cholecystectomy S/P CABG (coronary artery bypass graft) (11/13/15) Family History Father Heart disease Hypertension Mother Diabetes Heart disease Hypertension Social History Smoking/Tobacco Use Status: Former Tobacco Use Smoking risk assessment performed?: Yes Alcohol Intake: current Alcohol Intake frequency: holidays/special occasions only Alcohol type: wine Drug use: Never Household members: none What is your relationship status?: Panel score (0-1 are the most socially isolated patients): 0 Discharge Plan Disposition Patient Disposition: Admit to [facility] Condition: Serious Discharge Details Chief Complaint: Fall/Non TraumaCriteria Clinical Impression: Closed hip fracture, Diabetes, Coronary artery disease Primary Care Provider: Alexander Adams ED Provider: Anamaria Wyman Home Meds and New Rx's Prescriptions: No Action aspirin 81 mg tablet,delayed release (DR/EC) 81 mg PO DAILY Novolin R Regular U100 Insulin 100 unit/mL solution See Rx Instructions subcut USEASDIRECTD Rx Instructions: use with insulin pump meclizine 25 mg tablet 25 mg PO .Q6hrs PRN silver sulfadiazine [Silvadene] 1 % cream 1 applic topical ONCE Qty: 50 0RF Rx Instructions: apply a 1.5 mm thickness vitamin B complex [B Complex-Vitamin B12] Tablet 1 tab PO DAILY acetaminophen 500 mg capsule 500 mg PO Q6H PRN glucagon 1 mg/0.2 mL auto-injector 1 mg subcut ONCE Rx Instructions: as a single dose; may repeat once after 15 minutes if no response cranberry extract 250 mg capsule 250 mg PO DAILY Rx Instructions: administer with a meal esomeprazole magnesium 40 mg capsule,delayed release(DR/EC) 40 mg PO DAILY sucralfate [Carafate] 1 gram tablet 1 g PO QACHS pyridoxine (vitamin B6) 100 mg tablet 200 mg PO DAILY valsartan 40 mg tablet 40 mg PO .COMPLEX PRN Rx Instructions: 40 mg orally three times weekly only due to low bp PRN; cholecalciferol (vitamin D3) [Vitamin D3] 50 mcg (2,000 unit) tablet 5,000 unit PO DAILY duloxetine 40 mg capsule,delayed release(DR/EC) 40 mg PO DAILY insulin aspart U-100 [Novolog PenFill U-100 Insulin] 100 UNIT/1 ML cartridge 100 unit SQ DAILY Patient Comments: pt has insulin pump dose is between 40 and 50 units daily thiamine mononitrate (vit B1) [Vitamin B-1 (mononitrate)] 100 MG tablet 200 mg PO DAILY atorvastatin [Lipitor] 20 MG tablet 40 mg PO DAILY insulin glargine [Lantus U-100 Insulin] 100 UNITS/ML solution 28 units SQ DAILY PRN (Reason: insulin pump failure)
[2023-05-22 00:49] LABS: Abs Immature Grans 0.04 10^3/uL (0.0-0.06); Absolute Basophil Count 0.07 10^3/uL (0.0-0.2); Absolute Eosinophil Count 0.27 10^3/uL (0.0-0.7); Absolute Lymphocyte Count 2.43 10^3/uL (1.2-3.4); Absolute Monocyte Count 0.62 10^3/uL (0.1-0.8); Absolute Neutrophil Count 8.91 10^3/uL (1.2-6.7); Basophils % 0.6; Eosinophils % 2.2; HCT 35.8 % (36.0-46.0); HGB 11.7 g/dL (11.2-15.7); Immature Grans % 0.3; Lymphocytes % 19.7; MCH 26.8 pg (27.0-33.0); MCHC 32.7 % (32.0-36.0); MCV 82 fL (80-95); MPV 10.4 fL (8.0-11.0); Neutrophils % 72.2; Platelet Count 213 10^3/uL (130-400); RBC 4.37 10^6/uL (3.93-5.22); RDW 14.4 % (11.7-14.6); RDW-SD 42.4 fL; WBC 12.34 10^3/uL (4.4-10.8)
[2023-05-22] MEDS: Acetaminophen 500 MG TAB 1000 MG PO (00:52)
[2023-05-22] MEDS: MORPHine 10 MG/ML VIAL 2 MG IVP ×2 (00:53→02:16)
[2023-05-22] MEDS: Ketorolac 15 MG/ML VIAL IVP (00:53)
[2023-05-22 00:59] LABS: ALT 24 U/L (14-59); AST 22 U/L (15-37); Albumin 3.3 g/dL (3.4-5.0); Alkaline Phosphatase 98 U/L (46-116); Anion Gap 9.1 mmol/L (3-11); BUN 24 mg/dL (7-18); Bilirubin, Total 0.5 mg/dL (0.2-1.0); CO2 29.9 mmol/L (21.0-32.0); CREATININE 1.2 mg/dL (0.55-1.02); Calcium 9.4 mg/dL (8.5-10.1); Chloride 103 mmol/L (98-107); Estimated GFR 46.33 (mL/min/1.73m2); Glucose 177 mg/dL (74-106); Potassium 3.9 mmol/L (3.5-5.1); Sodium 142 mmol/L (136-145); Total Protein 7.1 g/dL (6.4-8.2)
--- NOTE | 2023-05-22 01:51 | DI.VRAD_ITS ---
PROCEDURE INFORMATION: Exam: XR Right Hip Exam date and time: 05/22/2023 12:59 AM Age: 77 years old Clinical indication: Injury or trauma; Blunt trauma (contusions or hematomas); Hip; Patient HX: Fall, left leg shortened and internally rotated TECHNIQUE: Imaging protocol: Radiologic exam of the right hip. Views: 2 or 3 views hip with pelvis when performed. COMPARISON: CT LUMBAR SPINE WO 11/20/2020 8:47 AM FINDINGS: Bones/joints: Osseous alignment is normal. No acute fracture. No significant arthritic change. Orthopedic hardware noted in the lower lumbar spine. Soft tissues: Unremarkable. IMPRESSION: No acute fracture Dictated and Authenticated by: Kendrick Lam MD. Ordering:GIANNI Conrad MD
--- NOTE | 2023-05-22 03:30 | DI.RAD_ITS ---
Exam(s) CT PELVIC WO XR HIP PELVIS ADULT BL XR FEMUR LT XR HIP LT AP LAT ONLY EXAM: CT PELVIC WO and XR femur LT, XR hip LT, XR hip bilateral CLINICAL HISTORY: fall, L leg internally rotated shortned, XR neg. TECHNIQUE: Imaging Protocol: Axial computed tomography images with coronal and sagittal reformatted images were created and reviewed. Ten images of the pelvis and hips were obtained. COMPARISON: Comparison x-ray is 03/29/2013. FINDINGS: X-rays: There is an acute intertrochanteric fracture of the left femur. The fracture is impacted. T here posterior spinal rods at L4-L5. There are degenerative changes of the hips bilaterally. No hip dislocation is seen. The sacroiliac joints are intact as is the symphysis pubis. Vascular calcific ations are present. Bones: There is an acute comminuted intertrochanteric fracture of the left femur. There is impactio n of the fracture. No other fractures identified. Mild degenerative changes are seen in the hips bi laterally. The sacroiliac joints are intact. Soft Tissues: Vascular calcifications are present. There is a small fat containing umbilical hernia. The patient is status post hysterectomy. The urinary bladder is intact. There is mild thickening of the wall of the urinary bladder which may be due to underdistention. Cystitis cannot be entirely excluded. IMPRESSION: Acute comminuted impacted intertrochanteric fracture of the left femur. RADIATION DOSE DELIVERED: 545.2mGy.cm Total DLP 545.2mGy.cmTotal DLP DATA REPOSITORY: All CT scans at this facility are submitted to the National Radiology Data Registry (NRDR) Dose Index Registry (DIR) with the [employer] (ACR). RADIATION OPTIMIZATION: All CT scans at this facility use at least one of these dose optimization te chniques: automated exposure control; mA and/or kV adjustment per patient size (includes targeted exa ms where dose is matched to clinical indication); or iterative reconstruction.
--- NOTE | 2023-05-22 03:30 | RT.EKG_ITS ---
APPROVED REPORT Exam: Resting ECG Reason for Exam: Pre OP Patient Location: E HR:88 bpm ECG Measurements Heart Rate 88 AXIS MT 203 P 53 QRSd 72 QRS 42 QT 378 T 64 QTc 457 Conclusion Sinus rhythm...normal P axis, V-rate 60- 99 Low voltage, extremity and precordial leads...extremity<0.5mV, precordial<1.0mV
--- NOTE | 2023-05-22 03:31 | DI.VRAD_ITS ---
PROCEDURE INFORMATION: Exam: CT Pelvis Without Contrast; Skeletal Exam date and time: 05/22/2023 2:26 AM Age: 77 years old Clinical indication: Injury or trauma; Blunt trauma (contusions or hematomas); Left; Hip; Patient HX: Fall, L leg internally rotated \T\ shortened, XR neg TECHNIQUE: Imaging protocol: Computed tomography of the pelvis without contrast. Exam focused on the skeleton. COMPARISON: CR XR HIP PELVIS ADULT BL 05/22/2023 12:59 AM FINDINGS: Urinary bladder: Probable cystitis. Bones/joints: Acute comminuted intertrochanteric left femur fracture. Soft tissues: Unremarkable. IMPRESSION: 1. Acute comminuted intertrochanteric left femur fracture. 2. Probable cystitis. Dictated and Authenticated by: Jin Hernadez MD. Ordering:GIANNI Conrad MD
--- NOTE | 2023-05-22 03:44 | W.ORTHOCONSU ---
Assessment and Plan Assessment and plan (1) Intertrochanteric fracture of left hip: Status: Acute Assessment and plan: 77 year old female with Left hip intertroch type fracture Balance issues, mechanical fall last night. Isolated left hip injury. Previous orthopedic shoulder surgeries. Denies any other injuries. Chronic foot problems, Charcot, diabetic neuropathy up to about the ankle, and diabetic wounds and toe amputations. No active infections on the left side. No significant pre-existing hip pain. Ambulated with a walker due to neuropathy and balance issues. Medical history as documented in the chart, reviewed EMR here and at [facility] with attention to cardiac history. Forwarded information to FACULTY SUPPORT COORDINATOR's. Exam shows comfortable patient, no signs of distress, no injuries or problems about bilateral shoulders or right lower extremity. Left hip soreness, not vigorously Tefft tested. Skin intact, no notable edema or ecchymosis yet. Knee and distal without signs of injury. Stiff foot and ankle, chronic. Neuropathy but sensory at baseline distally. Sluggish cap refill, also chronic. X-rays and CT scan show isolated left hip intertrochanteric type fracture. Discussed thoroughly, heightened risk for a problem due to cardiac disease, diabetes, neuropathy, and pre-existing ambulatory dysfunction. Also significant number of allergies and medical intolerances. Decision to proceed with surgery today Left hip intramedullary nailing The risks, benefits, and alternatives were thoroughly discussed. Patient was counseled regarding pain management, expected postoperative course, and recovery timeline. All questions were answered. Informed consent was obtained. Agree and understand treatment plan. Follow up 10-14 days after surgery. Hospitalist note reviewed. Discussed with FACULTY SUPPORT COORDINATOR and emergency room doctor. [facility] All Active Problems (Updated 05/22/23 @ 06:10 by Kory Garcia MD) Coronary artery disease (Chronic) Diabetes (Chronic) Closed hip fracture (Acute) Intertrochanteric fracture of left hip (Acute 05/22/23) Diabetes mellitus with foot ulcer due to multiple causes (Acute) Contusion of left great toe with damage to nail (Acute) Cellulitis (Acute) Dystrophia unguium (Acute) Asymmetrical sensorineural hearing loss (Acute) S/P LORETTA-BSO (Acute) Insomnia (Acute) Renal insufficiency (Chronic) Hyperlipemia (Acute) CTS (carpal tunnel syndrome) (Acute) Ventricular arrhythmia (Acute) Spinal stenosis, lumbar (Acute) spinal fusion L4/5 Degenerative joint disease of spine (Acute) Loss of balance (Acute) GERD (gastroesophageal reflux disease) (Chronic) Osteoarthritis of fingers of both hands (Acute) Mass of parotid gland (Acute) Actinic keratoses (Acute) Urinary incontinence (Acute) with recurrent UTIs ICD (implantable cardioverter-defibrillator) in place (Acute 11/13/15) [employer]tr[employer] John II VR, single lead 6947, [facility] [place] CAD (coronary artery disease) (Chronic 11/13/15) 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) (06/26/09) Surgical History H/O breast biopsy History of bilateral salpingo-oophorectomy (BSO) History of cataract surgery History of total abdominal hysterectomy Hx of cholecystectomy S/P CABG (coronary artery bypass graft) (11/13/15) Family History Father Heart disease Hypertension Mother Diabetes Heart disease Hypertension Social History Smoking/Tobacco Use Status: Former Tobacco Use Smoking risk assessment performed?: Yes Alcohol Intake: current Alcohol Intake frequency: holidays/special occasions only Alcohol type: wine Drug use: Never Household members: none Housing: house What is your relationship status?: Panel score (0-1 are the most socially isolated patients): 0 Results Last Vital Signs Temp 96.8 F L 05/22/23 00:12 Pulse 80 05/22/23 00:30 Resp 18 05/22/23 01:51 BP 212/84 H 05/22/23 00:30 Pulse Ox 100 05/22/23 01:51 Labs 05/22/23 00:38 05/22/23 00:38 Labs: Laboratory Results - last 24 hr 05/22/23 00:38 WBC 12.34 H RBC 4.37 Hgb 11.7 Hct 35.8 L MCV 82 MCH 26.8 L MCHC 32.7 RDW 14.4 Plt Count 213 MPV 10.4 Immature Gran % 0.3 Neutrophils % 72.2 Lymphocytes % 19.7 Monocytes % 5.0 Eosinophils % 2.2 Basophils % 0.6 Nucleated RBC % 0.0 Absolute Neutrophils 8.91 H Absolute Lymphocytes 2.43 Absolute Monocytes 0.62 Absolute Eosinophils 0.27 Absolute Basophils 0.07 Sodium 142 Potassium 3.9 Chloride 103 Carbon Dioxide 29.9 Anion Gap 9.1 BUN 24 H Creatinine 1.2 H Est GFR (CKD-EPI 2020) 46.33 Glucose 177 H Calcium 9.4 Total Bilirubin 0.5 AST 22 ALT 24 Alkaline Phosphatase 98 Total Protein 7.1 Albumin 3.3 L
[2023-05-22 04:47] LABS: Hemoglobin A1C 7.9 % (<5.7)
--- NOTE | 2023-05-22 05:01 | DI.VRAD_ITS ---
PROCEDURE INFORMATION: Exam: XR Left Femur Exam date and time: 05/22/2023 4:31 AM Age: 77 years old Clinical indication: Pain; Hip; Patient HX: Left intertroch FX TECHNIQUE: Imaging protocol: Radiologic exam of the left femur. Views: 2 views. COMPARISON: CR XR HIP LT AP LAT ONLY 05/22/2023 4:31 AM FINDINGS: Bones/joints: Acute intertrochanteric left femur fracture. Soft tissues: Unremarkable. IMPRESSION: Acute intertrochanteric left femur fracture. Dictated and Authenticated by: Jin Hernadez MD. Ordering:GIANNI Conrad MD
--- NOTE | 2023-05-22 05:03 | DI.VRAD_ITS ---
PROCEDURE INFORMATION: Exam: XR Left Hip Exam date and time: 05/22/2023 4:31 AM Age: 77 years old Clinical indication: Hip pain; Left hip; Patient HX: Left intertroch FX TECHNIQUE: Imaging protocol: Radiologic exam of the left hip. Views: 2 or 3 views hip with pelvis when performed. COMPARISON: CT PELVIC WO 05/22/2023 2:26 AM FINDINGS: Bones/joints: Acute intertrochanteric left femur fracture. No dislocation. Soft tissues: Unremarkable. IMPRESSION: Acute intertrochanteric left femur fracture. Dictated and Authenticated by: Jin Hernadez MD. Ordering:GIANNI Conrad MD
--- NOTE | 2023-05-22 05:23 | W.PM.HP.N ---
Date of service: 05/22/23 Time of Service: 05:24 Assessment and Plan Assessment and plan (1) Intertrochanteric fracture of left hip: Start date: 05/22/23 Start time: 05:52 Status: Acute Assessment and plan: The patient comes in w/ a fall today most likely attributed by her severe neuropathy and Charcot's foot w/ Type 1 DM. She did not hit her head or have any loss of consciousness. She is able to move her extremity but it results in pain with her left hip. Her X-ray reports of acute comminuted intertrochanteric left femur fracture. -Keep NPO and continue w/ pain management to include Morphine 2mg q3h, prn -Consult Ortho for ORIF -Suspect leukocytosis is most likely reactive w/ hip fx and pain. She has no other active symptoms. (2) Diabetes: Status: Chronic Assessment and plan: She is a type 1 DM and on an insulin pump. Her A1c is 7.9 and BG is 177. -Continue w/ basal insulin rate -BG 140-180 and use prn insulin if required -Recommend to discontinue prior to surgery Qualifiers: Diabetes mellitus type: type 1 Diabetes mellitus complication status: with hyperglycemia Qualified Code(s): E10.65 - Type 1 diabetes mellitus with hyperglycemia (3) HTN (hypertension): Status: Chronic Assessment and plan: Current Cr 1.2 w/ prior on 08/03/22 and Cr 1.1. Hold PO Valsartan for now -Use IV Hydralazine for BP >150/90 Qualifiers: Hypertension type: primary hypertension Qualified Code(s): I10 - Essential (primary) hypertension (4) Hyperlipemia: Status: Acute Assessment and plan: -Hold Lipitor 40mg daily and restart once surgery completed (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 The plan is to continue w/ active surveillance for now. -Evaluated by ENT DR Ana Acuña as well as at [facility] -Cont w/ active surveillance for now (6) CAD (coronary artery disease): Status: Chronic Assessment and plan: -Hold ASA 81mg daily -Hold Lipitor 40mg daily History of Present Illness History of Present Illness Chief Complaint: L Hip Pain Narrative: The patient is a 77 y/o C M w/ PMH CAD s/p CABG, type 1 DM on an insulin pump complicated with severe neuropathy and Charcot's foot who comes in today due to a fall. She has issues w/ gait instability due to her complications with diabetes. She was in the bathroom pulling up her underpants when she fell down on her left hip. She recalls hearing a pop when she fell and then noticed her leg was rotated. She was unable to get up or ambulate but she did not hit her head or have any loss of consciousness. She had to slowly crawl, which took over 1 hour, to her living room and the call her daughter and son-in-law for help. Her pain is only present when she moves her left leg at which time it is described as an intermittent dull pain. She is able to move her bilateral lower extremities but there is no worsening numbness. She has no fever, chills or night sweats. She has no chest pain, palpitations, coughing, wheezing or dyspnea. Review of Systems Constitutional Constitutional: Denies chills, Denies fatigue, Denies fever(s), Denies headache(s), Denies night sweats and Denies weight loss Eyes Eyes: Denies blurry vision, Denies loss of vision and Denies eye pain ENT Ears, Nose, Mouth, and Throat: Reports abnormal hearing (Hx of sensoineural hearing loss), Denies otalgia, Denies headache(s), Denies nasal congestion and Denies sinus pressure Cardiovascular Cardiovascular: Denies chest pain, Denies palpitations and Denies dyspnea Respiratory Respiratory: Denies cough, Denies dyspnea and Denies wheezing Gastrointestinal Gastrointestinal: Denies abdominal pain, Denies melena, Denies hematochezia, Denies constipation, Denies diarrhea, Denies nausea and Denies vomiting Musculoskeletal Musculoskeletal: Denies joint swelling and Denies muscle weakness Neurologic Neurologic: Reports abnormal hearing (Hx of sensoineural hearing loss), Denies abnormal speech, Denies confusion, Denies headache(s), Denies loss of vision and Reports paresthesias (Neuropathy w/ Type 1 DM) Psychiatric Psychiatric: Denies anxiety, Denies confusion and Denies depression Endocrine Endocrine: Denies fatigue and Denies palpitations Allergic/Immunologic Allergic/Immunologic: Denies wheezing PFSH All Active Problems (Updated 05/22/23 @ 06:10 by Kory Garcia MD) Coronary artery disease (Chronic) Diabetes (Chronic) Closed hip fracture (Acute) Intertrochanteric fracture of left hip (Acute 05/22/23) Diabetes mellitus with foot ulcer due to multiple causes (Acute) Contusion of left great toe with damage to nail (Acute) Cellulitis (Acute) Dystrophia unguium (Acute) Asymmetrical sensorineural hearing loss (Acute) S/P LORETTA-BSO (Acute) Insomnia (Acute) Renal insufficiency (Chronic) Hyperlipemia (Acute) CTS (carpal tunnel syndrome) (Acute) Ventricular arrhythmia (Acute) Spinal stenosis, lumbar (Acute) spinal fusion L4/5 Degenerative joint disease of spine (Acute) Loss of balance (Acute) GERD (gastroesophageal reflux disease) (Chronic) Osteoarthritis of fingers of both hands (Acute) Mass of parotid gland (Acute) Actinic keratoses (Acute) Urinary incontinence (Acute) with recurrent UTIs ICD (implantable cardioverter-defibrillator) in place (Acute 11/13/15) [email or web address], single lead [id number], [facility] 07/01/2009 CAD (coronary artery disease) (Chronic 11/13/15) 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) (06/26/09) Surgical History H/O breast biopsy History of bilateral salpingo-oophorectomy (BSO) History of cataract surgery History of total abdominal hysterectomy Hx of cholecystectomy S/P CABG (coronary artery bypass graft) (11/13/15) Family History Father Heart disease Hypertension Mother Diabetes Heart disease Hypertension Social History Smoking/Tobacco Use Status: Former Tobacco Use Smoking risk assessment performed?: Yes Alcohol Intake: current Alcohol Intake frequency: holidays/special occasions only Alcohol type: wine Drug use: Never Household members: none What is your relationship status?: Panel score (0-1 are the most socially isolated patients): 0 Meds Allergies and Home Medications Allergies Allergy/AdvReac Type Severity Reaction Status Date / Time alendronate sodium Allergy Severe chest pain Verified 05/22/23 00:21 [From Fosamax] ezetimibe [From Zetia] Allergy Severe Anaphylaxsi Verified 05/22/23 00:21 s lisinopril [From Zestril] Allergy Severe angioedema Verified 05/22/23 00:21 amiodarone Allergy Mild Skin Rash Verified 05/22/23 00:21 acetaminophen Allergy Other (See Verified 05/22/23 00:21 [From Darvocet-N] Comment) amoxicillin Allergy Other (See Verified 05/22/23 00:21 Comment) iodine Allergy Keller skin Verified 05/22/23 00:21 nitrofurantoin Allergy Other (See Verified 05/22/23 00:21 [From Macrobid] Comment) oxycodone Allergy Other (See Verified 05/22/23 00:21 Comment) propoxyphene Allergy Other (See Verified 05/22/23 00:21 [From Darvocet-N] Comment) pravastatin sodium AdvReac Severe dizziness Verified 05/22/23 00:21 [From Pravachol] celecoxib [From Celebrex] AdvReac Intermediate n/v/d Verified 05/22/23 00:21 gabapentin [From Neurontin] AdvReac Intermediate n/v/d Verified 05/22/23 00:21 simvastatin [From Zocor] AdvReac Intermediate mylagia Verified 05/22/23 00:21 povidone-iodine AdvReac Mild Skin Rash Verified 05/22/23 00:21 [From Betadine] codeine [Codeine] AdvReac n/v/d Verified 05/22/23 00:21 ibandronate sodium AdvReac joint pain Verified 05/22/23 00:21 [From Boniva] propoxyphene napsylate AdvReac n/v/d Verified 05/22/23 00:21 [From Yari-N 100] kiwi Allergy Severe Anaphylaxsi Uncoded 05/22/23 00:21 s Ivory Soap Allergy Itching Uncoded 05/22/23 00:21 adhesive tape AdvReac Skin Rash Uncoded 05/22/23 00:21 Home Medications Medication Instructions Recorded Confirmed Type insulin aspart U-100 100 unit/mL 100 unit SQ DAILY 08/28/12 05/22/23 History subcutaneous cartridge (Novolog PenFill U-100 Insulin aspart) thiamine mononitrate (vit B1) 100 200 mg PO DAILY 08/28/12 05/22/23 History mg tablet (Vitamin B-1 (mononitrate)) atorvastatin 20 mg tablet (Lipitor) 40 mg PO DAILY 10/18/12 05/22/23 History insulin glargine 100 unit/mL 28 units SQ DAILY PRN insulin pump 10/18/12 05/22/23 History subcutaneous solution (Lantus failure U-100 Insulin) acetaminophen 500 mg capsule 500 mg PO Q6H PRN 11/05/20 05/22/23 History cranberry extract 250 mg capsule 250 mg PO DAILY 11/05/20 05/22/23 History glucagon 1 mg/0.2 mL subcutaneous 1 mg subcut ONCE 11/05/20 05/22/23 History auto-injector vitamin B complex (B 1 tab PO DAILY 11/25/21 05/22/23 History Complex-Vitamin B12 tablet) esomeprazole magnesium 40 mg 40 mg PO DAILY 12/30/21 05/22/23 History capsule,delayed release pyridoxine (vitamin B6) 100 mg 200 mg PO DAILY 04/29/22 05/22/23 History tablet sucralfate 1 gram tablet (Carafate) 1 g PO QACHS 04/29/22 05/22/23 History aspirin 81 mg tablet,delayed 81 mg PO DAILY 05/09/22 05/22/23 History release insulin regular human 100 unit/mL See Rx Instructions subcut 05/09/22 05/22/23 History injection solution (Novolin R USEASDIRECTD Regular U-100 Insulin) meclizine 25 mg tablet 25 mg PO .Q6hrs PRN 05/09/22 05/22/23 History valsartan 40 mg tablet 40 mg PO .COMPLEX PRN 05/10/22 05/22/23 History cholecalciferol (vitamin D3) 50 5,000 unit PO DAILY 10/21/22 05/22/23 History mcg (2,000 unit) tablet (Vitamin D3) duloxetine 40 mg capsule,delayed 40 mg PO DAILY 10/21/22 05/22/23 History release silver sulfadiazine 1 % topical 1 applic topical ONCE #50 grams 03/23/23 05/22/23 Rx cream (Silvadene) Exam Const General: cooperative, healthy appearing, comfortable, no acute distress and well developed Nutritional Appearance: average body habitus Orientation: alert, awake and oriented x3 HENNM Head: normal to inspection Ears: external ears normal General nose exam: external nose normal Face and sinus: normal facial exam Eyes General: appearance normal, both eyes and all related structures Eyelids: eyelids normal Sclera: sclerae normal Pupils: PERRL Neck Neck: normal visual inspection and no lymphadenopathy Other: Enlarged right parotid gland Resp Effort & Inspection: normal respiratory effort, able to speak in complete sentences, no audible wheezes and no cough Auscultation: clear to auscultation bilaterally Cardio Rate: regular rate Rhythm: regular rhythm Heart Sounds: S1 normal and S2 normal GI Inspection: normal to inspection Palpation: soft Percussion: normal to percussion Auscultation: normal bowel sounds Skin General skin exam: no rashes or lesions noted Wounds: no wounds Neuro General: patient alert, patient awake, patient oriented x3 and CN's II-XI intact bilaterally Speech: speech normal Extrem General: normal to inspection Other: R foot w/ all of toes surgically resected Results Imaging Additional studies: 1. Acute comminuted intertrochanteric left femur fracture. Labs 05/22/23 00:38 05/22/23 00:38 Labs: Laboratory Results - last 24 hr 05/22/23 00:38 WBC 12.34 H RBC 4.37 Hgb 11.7 Hct 35.8 L MCV 82 MCH 26.8 L MCHC 32.7 RDW 14.4 Plt Count 213 MPV 10.4 Immature Gran % 0.3 Neutrophils % 72.2 Lymphocytes % 19.7 Monocytes % 5.0 Eosinophils % 2.2 Basophils % 0.6 Nucleated RBC % 0.0 Absolute Neutrophils 8.91 H Absolute Lymphocytes 2.43 Absolute Monocytes 0.62 Absolute Eosinophils 0.27 Absolute Basophils 0.07 Sodium 142 Potassium 3.9 Chloride 103 Carbon Dioxide 29.9 Anion Gap 9.1 BUN 24 H Creatinine 1.2 H Est GFR (CKD-EPI 2020) 46.33 Glucose 177 H Hemoglobin A1c 7.9 H Calcium 9.4 Total Bilirubin 0.5 AST 22 ALT 24 Alkaline Phosphatase 98 Total Protein 7.1 Albumin 3.3 L Last Vital Signs Temp 37 C 05/22/23 05:04 Pulse 92 H 05/22/23 05:04 Resp 20 05/22/23 05:04 BP 167/55 H 05/22/23 05:04 Pulse Ox 99 05/22/23 05:04 Time Spent Time spent with Patient: 40-54 minutes Time was spent: preparing to see the patient(eg.review tests), obtaining and/or reviewing separately otained hiistory, ordering medications,tests, procedures and counseling the patient
--- NOTE | 2023-05-22 08:45 | DI.VRAD_ITS ---
PROCEDURE INFORMATION: Exam: XR Chest Exam date and time: 05/22/2023 8:33 AM Age: 77 years old Clinical indication: Other: Preop; Prior surgery; Surgery date: 6+ months; Surgery type: Pacemaker TECHNIQUE: Imaging protocol: Radiologic exam of the chest. Views: 1 view. COMPARISON: No relevant prior studies are available for comparison. FINDINGS: Tubes, catheters and devices: Cardiac pacing device. Lungs: No focal consolidation seen. Pleural spaces: No large pleural effusion seen. Heart/Mediastinum: No cardiomegaly. Bones/joints: Degenerative changes in the glenohumeral joints. IMPRESSION: No acute findings to explain reported symptoms. Dictated and Authenticated by: Carisa Erwin MD. Ordering:MELISSA Victoria MD
--- NOTE | 2023-05-22 09:34 | DI.RAD_ITS ---
Exam(s) XR PORTABLE CHEST AP EXAM: XR PORTABLE CHEST AP CLINICAL HISTORY: Preop TECHNIQUE: 2D digital imaging was performed of the chest. One image was obtained. An AP view was ob tained. COMPARISON: CR PORTABLE AP CHEST from 06/21/2009 FINDINGS: MEDIASTINUM: Normal. HEART: Normal. Status post CABG. There is a cardiac device in place. PULMONARY VASCULATURE: Normal. LUNGS: Clear. PLEURAL SPACE: No pleural effusion or pneumothorax. BONE:Within normal limits for the patient's age. There are old healed right rib fractures. There are degenerative changes seen in the shoulders bilaterally, left greater than right. OTHER FINDINGS:There are surgical clips in the right upper quadrant of the abdomen and likely reflect ing prior cholecystectomy. IMPRESSION: No acute pulmonary findings. DATA REPOSITORY: RADIATION DOSE DELIVERED:
--- NOTE | 2023-05-22 09:42 | ANES.PREOP_ITS ---
General Info Date of Service Date Performed: 05/22/23 Height: 5 ft 8 in Weight: 76.2 kg Body Mass Index (BMI): 25.5 Surgical Procedure: Operation Date: 05/22/23 08:50 Proposed Procedure Side Surgeon p Femur IM Nailing Left Julien Penaloza MD Meds Allergies and Home Medications Allergies Allergy/AdvReac Type Severity Reaction Status Date / Time alendronate sodium Allergy Severe chest pain Verified 05/22/23 00:21 [From Fosamax] ezetimibe [From Zetia] Allergy Severe Anaphylaxsi Verified 05/22/23 00:21 s lisinopril [From Zestril] Allergy Severe angioedema Verified 05/22/23 00:21 amiodarone Allergy Mild Skin Rash Verified 05/22/23 00:21 acetaminophen Allergy Other (See Verified 05/22/23 00:21 [From Darvocet-N] Comment) amoxicillin Allergy Other (See Verified 05/22/23 00:21 Comment) iodine Allergy Keller skin Verified 05/22/23 00:21 nitrofurantoin Allergy Other (See Verified 05/22/23 00:21 [From Macrobid] Comment) oxycodone Allergy Other (See Verified 05/22/23 00:21 Comment) propoxyphene Allergy Other (See Verified 05/22/23 00:21 [From Darvocet-N] Comment) pravastatin sodium AdvReac Severe dizziness Verified 05/22/23 00:21 [From Pravachol] celecoxib [From Celebrex] AdvReac Intermediate n/v/d Verified 05/22/23 00:21 gabapentin [From Neurontin] AdvReac Intermediate n/v/d Verified 05/22/23 00:21 simvastatin [From Zocor] AdvReac Intermediate mylagia Verified 05/22/23 00:21 povidone-iodine AdvReac Mild Skin Rash Verified 05/22/23 00:21 [From Betadine] codeine [Codeine] AdvReac n/v/d Verified 05/22/23 00:21 ibandronate sodium AdvReac joint pain Verified 05/22/23 00:21 [From Boniva] propoxyphene napsylate AdvReac n/v/d Verified 05/22/23 00:21 [From Darvocet-N 100] kiwi Allergy Severe Anaphylaxsi Uncoded 05/22/23 00:21 s Ivory Soap Allergy Itching Uncoded 05/22/23 00:21 adhesive tape AdvReac Skin Rash Uncoded 05/22/23 00:21 Home Medication Medication Instructions Recorded insulin aspart U-100 100 unit/mL 100 unit SQ DAILY 08/28/12 subcutaneous cartridge (Novolog PenFill U-100 Insulin aspart) thiamine mononitrate (vit B1) 100 200 mg PO DAILY 08/28/12 mg tablet (Vitamin B-1 (mononitrate)) atorvastatin 20 mg tablet (Lipitor) 40 mg PO DAILY 10/18/12 insulin glargine 100 unit/mL 28 units SQ DAILY PRN insulin pump 10/18/12 subcutaneous solution (Lantus failure U-100 Insulin) acetaminophen 500 mg capsule 500 mg PO Q6H PRN 11/05/20 cranberry extract 250 mg capsule 250 mg PO DAILY 11/05/20 glucagon 1 mg/0.2 mL subcutaneous 1 mg subcut ONCE 11/05/20 auto-injector vitamin B complex (B 1 tab PO DAILY 11/25/21 Complex-Vitamin B12 tablet) esomeprazole magnesium 40 mg 40 mg PO DAILY 12/30/21 capsule,delayed release pyridoxine (vitamin B6) 100 mg 200 mg PO DAILY 04/29/22 tablet sucralfate 1 gram tablet (Carafate) 1 g PO QACHS 04/29/22 aspirin 81 mg tablet,delayed 81 mg PO DAILY 05/09/22 release insulin regular human 100 unit/mL See Rx Instructions subcut 05/09/22 injection solution (Novolin R USEASDIRECTD Regular U-100 Insulin) meclizine 25 mg tablet 25 mg PO .Q6hrs PRN 05/09/22 valsartan 40 mg tablet 40 mg PO .COMPLEX PRN 05/10/22 cholecalciferol (vitamin D3) 50 5,000 unit PO DAILY 10/21/22 mcg (2,000 unit) tablet (Vitamin D3) duloxetine 40 mg capsule,delayed 40 mg PO DAILY 10/21/22 release silver sulfadiazine 1 % topical 1 applic topical ONCE #50 grams 03/23/23 cream (Silvadene) Current Visit Medications: Current Medications Generic Name Dose Route Start Last Admin Trade Name Freq PRN Reason Stop Dose Admin Hydralazine HCl 10 mg 05/22/23 06:22 Hydralazine 20 Mg/Ml Vial IVP Q4H PRN PRN Insulin Aspart 0 units 05/22/23 06:32 Insulin Aspart 300 Units/3 Ml Pen SC Q4H PRN PRN Protocol Morphine Sulfate 2 mg 05/22/23 06:22 Morphine 10 Mg/Ml Vial IVP Q3H PRN PRN PFSH Active Problems Active Problems: Problem Status Onset Code Coronary artery disease I25.10 Diabetes E11.9 Closed hip fracture S72.009A Intertrochanteric fracture of left hip 05/22/23 S72.142A Diabetes mellitus with foot ulcer due to multiple causes E11.621, L97.509 Contusion of left great toe with damage to nail S90.212A Cellulitis L03.90 Dystrophia unguium L60.3 Asymmetrical sensorineural hearing loss H90.3 S/P LORETTA-BSO Z90.710, Z90.722, Z90.79 Insomnia G47.00 Renal insufficiency N28.9 Hyperlipemia E78.5 CTS (carpal tunnel syndrome) G56.00 Ventricular arrhythmia I49.9 Spinal stenosis, lumbar M48.061 Degenerative joint disease of spine M47.9 Loss of balance R26.89 GERD (gastroesophageal reflux disease) K21.9 Osteoarthritis of fingers of both hands M19.041, M19.042 Mass of parotid gland K11.8 Actinic keratoses L57.0 Urinary incontinence R32 ICD (implantable cardioverter-defibrillator) in place 11/13/15 Z95.810 CAD (coronary artery disease) 11/13/15 I25.10 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 11/13/15 E10.43 Essential hypertension 11/13/15 I10 Corns and callosities L84 Tumor of parotid gland D49.0 Sinusitis J32.9 Charcot foot due to diabetes mellitus HTN (hypertension) Follow up Z09 Medical History Medical History Abnormal mammogram of right breast History of pneumothorax History of sudden cardiac arrest (06/21/09) History of sudden cardiac arrest (11/13/15) History of tobacco use Mass of right parotid gland S/P CABG (coronary artery bypass graft) (06/26/09) Surgical History Surgical History H/O breast biopsy History of bilateral salpingo-oophorectomy (BSO) History of cataract surgery History of total abdominal hysterectomy Hx of cholecystectomy S/P CABG (coronary artery bypass graft) (11/13/15) Tobacco Smoking/Tobacco Use Status: Former Tobacco Use Alcohol Alcohol Intake: current Alcohol intake frequency: holidays/special occasions only Alcohol type: wine Substance Use Substance use: Never Vital Signs and Lab Results Vital Signs Most Recent Vital Signs in EMR: Most Recent Vital Signs Temp Pulse Resp BP Pulse Ox 36.1 C L 90 18 162/80 H 98 05/22/23 07:37 05/22/23 07:37 05/22/23 07:37 05/22/23 07:37 05/22/23 07:37 Lab Results 05/22/23 00:38 05/22/23 00:38 Blood Type / Crossmatch: 2 No Data to Display Complete Blood Count: 2 White Blood Count 12.34 10^3/uL (4.4-10.8) H 05/22/23 00:38 Red Blood Count 4.37 10^6/uL (3.93-5.22) 05/22/23 00:38 Hemoglobin 11.7 g/dL (11.2-15.7) 05/22/23 00:38 Hematocrit 35.8 % (36.0-46.0) L 05/22/23 00:38 Platelet Count 213 10^3/uL (130-400) 05/22/23 00:38 Complete Metabolic Panel: 2 Sodium 142 mmol/L (136-145) 05/22/23 00:38 Potassium 3.9 mmol/L (3.5-5.1) 05/22/23 00:38 Chloride 103 mmol/L (98-107) 05/22/23 00:38 Carbon Dioxide 29.9 mmol/L (21.0-32.0) 05/22/23 00:38 BUN 24 mg/dL (7-18) H 05/22/23 00:38 Creatinine 1.2 mg/dL (0.55-1.02) H 05/22/23 00:38 Est GFR (CKD-EPI 2020) 46.33 (mL/min/1.73m2) 05/22/23 00:38 Calcium 9.4 mg/dL (8.5-10.1) 05/22/23 00:38 Albumin 3.3 g/dL (3.4-5.0) L 05/22/23 00:38 Glucose 177 mg/dL (74-106) H 05/22/23 00:38 Hemoglobin A1c 7.9 % (<5.7) H 05/22/23 00:38 Liver Function Panel: 2 Alanine Aminotransferase (ALT/SGPT) 24 U/L (14-59) 05/22/23 00: 38 Aspartate Amino Transf (AST/SGOT) 22 U/L (15-37) 05/22/23 00:38 Coagulation Panel: 2 No Data to Display Cardiac Panel: 2 No Data to Display Arterial Blood Gas: 2 No Data to Display Venous Blood Gas: 2 No Data to Display Pancreas Panel: 2 No Data to Display Thyroid Panel: 2 No Data to Display Infectious Disease: 2 No Data to Display Blood Cultures: 2 No Data to Display Toxicology Panel: 2 No Data to Display Imaging and Studies Imaging and Studies Study information below may be from another EMR and interpreted by another provider. Please see original notes in EMR for more complete details. EKG Summary: 05/22/2023: Exam: Resting ECG Reason for Exam: Pre OP Patient Location: E HR:88 bpm ECG Measurements Heart Rate 88 AXIS OK 203 P 53 QRSd 72 QRS 42 QT 378 T64 QTc 457 Conclusion Sinus rhythm...normal P axis, V-rate 60- 99 Low voltage, extremity and precordial leads...extremity<0.5mV, precordial<1.0mV Anesthesia Assessment and Plan Anesthesia History Personal History: No History of Anesthesia Complications Family History: No Family History of Anesthesia Complications Exercise Tolerance Exercise Tolerance: Metabolic Equivalents>4 Cardiac & Pulmonary Exam Cardiac Exam: Normal S1/S2 Heart Sounds Pulmonary Exam: Clear Bilateral Breath Sounds Implantable Cardiac Device Does patient have a Pacemaker or an ICD?: Yes Device Rn Admission:: [employer] Reason for Placement:: Unclear: Known past cardiac arrest Date of Last Device Interrogation:: Overdue, per note in [facility] system, Dr. Penaloza and anesthesia aware Airway Exam Known Difficult Airway: No Mallampati Class: 1 Mouth Opening: Normal (> 3cm) Thyromental Distance: Greater than 3 cm Neck Range of Motion: Full ROM Neck Circumference: Normal Teeth Condition: Removable Dentures/Plates Upper ASA Classification ASA Score: ASA 3 Emergency Case?: Yes NPO Status NPO Status: NPO Clears >2 hours, Solids >8 hours (5pm) Anesthesia Plan Resuscitation Status: Full Code Anesthesia Technique: General Anesthesia Airway Planned: Endotracheal Tube Monitors Used: Standard Monitors and SedLine Preoperative Comments:: Overdue for pacer reprogramming, per [facility] note 2019 device battery exchange. [facility] notes reviewed to include last EP visit and last stress echo completed in 2013, EF 65%.
--- NOTE | 2023-05-22 10:05 | PDOC.CMIN ---
Date of service: 05/22/23 Time of Service: 10:05 Care Management Initial Assmt Initial Assessment REASON FOR HOSPITALIZATION:: L Hip Fracture PREVIOUS FUNCTIONAL STATUS/SOCIAL/FAMILY SUPPORTS:: Liane lives in [place] alone. for 30 years to Jose, but are not together. 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 CURRENT FUNCTIONAL STATUS:: Liane was sitting up in a chair when meeting with CM. Liane discussed her family; accomplishments and expressed how proud she was of her children and grandchildren. 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 Daughter Laura lives closest to Liane and is who Liane called when she fell and broke her hip. Liane described breaking her hip was her biggest fear. ADVANCE DIRECTIVES:: None on file INSURANCE COVERAGE / FINANCIAL ISSUES:: Medicare Part A & B /[facility] CURRENT HOME/COMMUNITY SERVICES/EQUIPMENT:: Cane, 2 electric scooters, crutches, reclining chair PRIMARY CARE PHYSICIAN:: Alexander Adams M.D. PATIENT/FAMILY EDUCATION NEEDS:: Review discharge instructions and limitations, discussion of care needs including Ask Me Three TRANSPORTATION:: Via private vehicle with family PLAN:: Liane will return home. She will follow up with her PCP and discharge plan of care. [facility] All Active Problems (Updated 05/23/23 @ 12:49 by Sadie Nevarez NP) Discharge planning issues (Acute) On deep vein thrombosis (DVT) prophylaxis (Acute) Coronary artery disease (Chronic) Diabetes (Chronic) Closed hip fracture (Acute) Intertrochanteric fracture of left hip (Acute 05/22/23) Diabetes mellitus with foot ulcer due to multiple causes (Acute) Contusion of left great toe with damage to nail (Acute) Cellulitis (Acute) Dystrophia unguium (Acute) Asymmetrical sensorineural hearing loss (Acute) S/P LORETTA-BSO (Acute) Insomnia (Acute) Renal insufficiency (Chronic) Hyperlipemia (Acute) CTS (carpal tunnel syndrome) (Acute) Ventricular arrhythmia (Acute) Spinal stenosis, lumbar (Acute) spinal fusion L4/5 Degenerative joint disease of spine (Acute) Loss of balance (Acute) GERD (gastroesophageal reflux disease) (Chronic) Osteoarthritis of fingers of both hands (Acute) Mass of parotid gland (Acute) Actinic keratoses (Acute) Urinary incontinence (Acute) with recurrent UTIs ICD (implantable cardioverter-defibrillator) in place (Acute 11/13/15) Medtronic John II VR[place] 6947[place] [facility] [place] CAD (coronary artery disease) (Chronic 11/13/15) 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) (06/26/09) Surgical History H/O breast biopsy History of bilateral salpingo-oophorectomy (BSO) History of cataract surgery History of total abdominal hysterectomy Hx of cholecystectomy S/P CABG (coronary artery bypass graft) (11/13/15) Family History Father Heart disease Hypertension Mother Diabetes Heart disease Hypertension Social History Smoking/Tobacco Use Status: Former Tobacco Use Smoking risk assessment performed?: Yes Alcohol Intake: current Alcohol Intake frequency: holidays/special occasions only Alcohol type: wine Drug use: Never Household members: none Housing: house What is your relationship status?: Panel score (0-1 are the most socially isolated patients): 0 SDOH(Care Management) Screening Will the Patient Participate in the Screening?: Yes Do you worry about having a steady place to live?: no In the past 12 months, have you had to go without electric, gas, oil or water in your home?: no Have you or anyone in your house had to go without enough food to eat?: no Has lack of transportation kept you from medical appointments or from doing things needed for daily living?: no Has anyone in your support network made you feel unsafe for any reason?: no
[2023-05-22] MEDS: Lactated Ringers 1,000 ML 30 ML IV (10:07)
[2023-05-22] MEDS: ceFAZolin 2 GM/50 ML BAG 100 GM (10:35)
[2023-05-22] MEDS: EPINEPHrine 10 MG/10 ML ML (11:16)
[2023-05-22] MEDS: Bupivacaine 0.25% Pres-Free 30 ML VIAL (11:16)
--- NOTE | 2023-05-22 11:29 | W.ANESVAS ---
Arterial Line Placement Date Performed: 05/22/23 Procedure Time: 10:57 Procedure Location: Operating Room Requesting Provider: Brittaney Stratton Requesting Provider (not listed above): Dr. Penaloza aware and agrees Timeout Performed: Yes Sedation Given (Indicate Dose Given): No Sedation given Patient Mental Status: Performed under general anesthesia Sterility: Hand Hygiene, Surgical Cap, Surgical Mask, Sterile Gloves and Chlorhexidine Laterality: Right Insertion Site: Radial Arterial Line Catheter: 20G Arrow Arterial Line Procedure: Vessel accessed with needle, Vessel accessed with catheter over needle, Guidewire met resistance and Unable to advance catheter Dressing: Other Ultrasound: Sterile probe cover and gel used Ultrasound Image Saved?: No Number of Attempts (See previous attempts in note section): 2 Procedure Tolerated: No Complications and Patient tolerated well Procedure Outcome: Unsuccessful Procedure Comment:: Able to hit the artery x2, unable to thread the catheter. Decision made to abort procedure and to continue with NIBP. Performed By: Brittaney Stratton
--- NOTE | 2023-05-22 11:37 | DI.RAD_ITS ---
Exam(s) XR HIP LT IN OR EXAM: XR HIP LT IN OR CLINICAL HISTORY: left hip fracture TECHNIQUE: 2D and realtime digital imaging was performed. CONTRAST MATERIAL: Refer to procedure report. COMPARISON: CT CT PELVIC WO from 05/22/2023 CR,XR XR HIP LT AP LAT ONLY from 05/22/2023 CR,XR XR HIP PELVIS ADULT BL from 05/22/2023 FINDINGS: Fluoroscopy was provided for Dr. Penaloza during the performance of a reduction and internal fixation of intertrochanteric fracture of the left femur. Please refer to the procedure report for complete d etails. Ka,r=7.52 mGy IMPRESSION: RADIATION DOSE DELIVERED:
--- NOTE | 2023-05-22 11:42 | W.PM.OP ---
Date of service: 05/22/23 Time of Service: 10:30 Operative Note Operative Note DATE OF PROCEDURE: 05/22/23 PRE-OP DIAGNOSIS: Left hip intertrochanteric fracture POST-OP DIAGNOSIS: same PROCEDURE: Left hip intramedullary nail, CPT #81808 SURGEON: Julien Penaloza INSULATION CUPOLA OPERATOR: Soren Snow ANESTHESIA TYPE: Local By Surgeon and General LMA/ETT Refer to Anesthesia Record ESTIMATED BLOOD LOSS: 10 COMPLICATIONS: None Patient was transported to: PACU Patient's condition: stable Implants: Synthes TFNA [id number] 130 deg, 95 mm TFNA helical blade, 34 mm 5.0mm distal locking screw Indications: Please see medical record for details Procedure Description: In the operating room, general anesthesia was induced. The patient was transferred and positioned supine on the fracture table. All bony prominences were well padded. Pre-operative antibiotics were administered. C-arm fluoroscopy was used to confirm appropriate provisional fracture reduction with traction and internal rotation. The correct patient, procedure, and side of the procedure were all verified prior to incision. The Left hip was prepped and draped in the usual sterile fashion. Local anesthetic with epinephrine was infiltrated about the planned start point as well as later about the lateral entry site for cephalomedullary and distal locking screws. C-arm fluoroscopy was used to locate the appropriate start point for the guide wire on the tip of the greater trochanter. This guide wire was advanced centrally down the proximal femur to the level of the lessor trochanter. Lateral images confirmed appropriate start point on the trochanter. Next the incision was extended about the guide wire to accommodate the nailing jig and this incision was carried down through the fascia and spread apart for ease of future instrument passage. The entry reamer was inserted used to open the proximal femur. The entry reamer and guidewire were removed from the proximal femur. The appropriately selected nail was assembled on the back table to the jig and tested to ensure proper passage of the cephalomedullary drill. This implant was manually inserted into the proximal femur and advanced to the appropriate level for cephalomedullary fixation. Another incision was made laterally to accommodate the cephalomedullary aiming tube and trochar, which were advanced down to bone. The guide wire was then advanced into the femoral neck and adjusted on AP and lateral fluoroscopy until it was placed near subchondral bone in the center-center position in the femoral head. The depth gauge was used to measure the helical blade length accommodating for depth of guidewire insertion. Next, the drills were used to open the lateral cortex, drill over the wire, and the helical blade was advanced to the appropriate depth by gentle mallet blows. The set screw was engaged and backed off 180 degrees to allow for rotationally-controlled sliding and compression. Traction was released, and the fracture was compressed appropriately via the buttress and compression nut on the jig. The setscrew was then retightened. The cephalomedullary aiming guide was removed. The distal locking screw guide was inserted through another small incision down the bone. The drill was used to drill for this static locking screw and measure the length. The appropriate length screw was then inserted bicortically. The jig was removed from the nail. Final AP and lateral fluoroscopic images were taken and confirmed appropriate fracture reduction and implant placement. All wounds were copiously irrigated. Deep layers were closed using 0 vicryl in an interrupted fashion. Subcutaneous tissue was closed using 2-0 monocryl in a buried interrupted fashion. Skin glue was applied to all incisions. Incisions were covered with Mepilex Band-Aids. The patient awoke from anesthesia without complication and was transferred to the recovery room in stable condition.
--- NOTE | 2023-05-22 11:49 | PGE_ITS ---
Date of Service Date of service: 05/22/23 Time of Service: 11:49 Assessment and Plan Assessment and plan (1) Intertrochanteric fracture of left hip: Status: Acute Assessment and plan: 77-year-old female postop day #0 status post Left hip IMN Comfortable, resting in PACU after surgery, left hip dressings clean dry intact, no significant edema or ecchymosis. Left lower extremity neurovascular exam at baseline. Tolerates passive hip motion without much difficulty. Complete 24 hours postoperative antibiotics Physical therapy: Weightbearing as tolerated with assist device Pain control-Multimodal May start chemical DVT prophylaxis this evening or tomorrow morning assuming hemodynamically stable: Recommend DVT prophylaxis for total 30 days with ADELAIDA vs SQH while inpatient and typically ASA 81 mg BID as outpatient Continue mechanical DVT prophylaxis with SCDs Follow-up with Dr. Penaloza outpatient [facility] in 10-14 days Appreciate medical management and discharge when medically appropriate Postop instructions? Keep bandages clean, dry and, intact for 7 to 10 days. May then remove and leave open to air or cover incisions with Band-Aids. Objective Last Vital Signs Temp 97.0 F L 05/22/23 07:37 Pulse 90 05/22/23 07:37 Resp 18 05/22/23 07:37 BP 162/80 H 05/22/23 07:37 Pulse Ox 98 05/22/23 07:37 Laboratory Results - last 24 hr 05/22/23 00:38 WBC 12.34 H RBC 4.37 Hgb 11.7 Hct 35.8 L MCV 82 MCH 26.8 L MCHC 32.7 RDW 14.4 Plt Count 213 MPV 10.4 Immature Gran % 0.3 Neutrophils % 72.2 Lymphocytes % 19.7 Monocytes % 5.0 Eosinophils % 2.2 Basophils % 0.6 Nucleated RBC % 0.0 Absolute Neutrophils 8.91 H Absolute Lymphocytes 2.43 Absolute Monocytes 0.62 Absolute Eosinophils 0.27 Absolute Basophils 0.07 Sodium 142 Potassium 3.9 Chloride 103 Carbon Dioxide 29.9 Anion Gap 9.1 BUN 24 H Creatinine 1.2 H Est GFR (CKD-EPI 2020) 46.33 Glucose 177 H Hemoglobin A1c 7.9 H Calcium 9.4 Total Bilirubin 0.5 AST 22 ALT 24 Alkaline Phosphatase 98 Total Protein 7.1 Albumin 3.3 L Time Spent with Patient Time Spent with Patient: 25-34 minutes Time was spent: preparing to see the patient(eg.review tests), ordering medications,tests, procedures, referring, communicating with other health chiropractic care, counseling the patient and care coordination
--- NOTE | 2023-05-22 14:52 | PT.INIE ---
PT Notes Visit Reasons: L Hip Fracture Inpatient Physical Therapy Evaluation Date: 05/22/23 Referring Doctor: Dr. Penaloza PT Orders: PT CONSULT: left intertrochanteric hip fx post op day 0 s/p left IM nail Precautions: WBAT LLE with assistive device Patient Profile/Admitting Diagnosis: 77 year old female with Left hip intertroch type fracture resulting from mechanical fall. Chronic foot problems, Charcot, diabetic neuropathy up to about the ankle, and diabetic wounds and toe amputations. Social History/Home Situation: Patient lives in a private home with 3 ARLETH. She uses a cane in the home and mobility scooter in the community. 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 She admits to several falls in the past, 2 within the past 6 months. Equipment Owned/DME: cane, FWW, scooter x 2 Subjective: Liane states that she is feeling well. Her hip is aching, but at a 2/10 for pain. Objective: General Observation: Resting in bed. Insulin pump in place. No additional lines. Toes amputated at PIP joints on right foot. Multiple areas of skin breakdown on both feet. Mental Status: A&Ox3. Very pleasant and cooperative. Pain: 2/10, increasing with ambulation Vital Signs: monitored by nursing throughout ROM: Right Upper Extremity: Shoulder flexion 120*. Elbow and wrist motion WFL. Left Upper Extremity: Shoulder flexion 70*, which patient reports is her baseline. Elbow and wrist motion WFL. Right Lower Extremity: Hip flexion to 100* or greater. Knee motion WFL. Ankle motion allows 40* arc of motion. Left Lower Extremity: Hip flexion to 90* or greater. Knee motion WFL. Ankle motion resticted in all planes. Strength: Right Upper Extremity: Shoulder flexion 3-/5. Biceps 5/5. Triceps 5/5. Composition Floor Setter is strong and equal. Left Upper Extremity: Shoulder flexion 3-/5. Biceps 5/5. Triceps 5/5. Composition Floor Setter is strong and equal. Right Lower Extremity: Hip flexoin 4/5. Quads 5/5. Ankle DF 3-/5. Left Lower Extremity: Hip flexion 3-/5. Quads 3/5 or greater. Ankle DF 3-/5. Sensation: generally asensate bilat feet. States that as of this morning, she's been able to feel pressure on the plantar aspects of her feet. Bed Mobility/Transfers: rolling in bed: mod A x 2 scooting in bed: max A x 2 supine-sit: min A sit-stand: min A stand-sit: min A Gait: Ambulates 3' x 2. Initially ambulates with CGA and FWW, with max cues for LLE placement to reduce pain. On second attempt at ambulation, she has a LOB to the left, requiring mod A for recovery. Assisted to chair, where she reports significant dizziness. Nursing present and monitoring vitals. Balance: Static Sitting: good Dynamic Sitting: good Static Standing: fair Dynamic Standing: poor Special Tests: Mobility Limitations Standardized Measure [facility] AM-PAC 6 clicks Basic Mobility Inpatient Short Form: Raw Score: 14 CMS Score: 61% impairment Informed Consent/Education: Patient instructed in purpose of PT consult and plan of care. Treatment: Initial evaluation (92154) Therapeutic Exercises (36944s2): Instructed in ankle pumps and quad sets for completion between PT sessions, 1 minute each every hour seated LAQ 5x each static standing, with gentle weight shifts to left to assess for weight bearing tolerance Therapeutic Activities (12527a3): instruction if FWW management during sit<->stand transfers -performed sit-stand x 3 gait training with WBAT LLE, cues for UE support through walker instruction in bed mobility technique Assessment: Patient is a 77 year old female referred to physical therapy services with the diagnosis of left intertrochanteric femur fx, s/p IM nail, post op day 0. Patient presents with clinical signs and symptoms consistent with diagnosis, and complicated by diabetic neuropathy with h/o toe amputations, Charcot foot, and balance impairments with h/o falls. She does have diabetic shoes and a right AFO, which she does not have here with her today; would benefit from having this available to improve safety and comfort with ambulation. She currently demonstrates the following impairment level findings: 1. decreased LE strength 2. post-op pain 3. decreased activity tolerance 4. decreased balance Impairments are contributing to the following functional limitations: 1. unable to ambulate independently 2. high fall risk with balance impairment and h/o falls 3. decreased activity tolerance Patient is assessed as Moderate 30375 complexity based on the following: History: as above. Complicating factors include baseline mobility impairments, balance deficits with h/o falls, and limited sensation in LEs. Examination: functional limitations as noted above Presentation: stable Decision Making: low Goals: Goals X1 week 1. Supine-Sit : independent 2. Sit-Supine : independent 3. Sit-Stand : independent 4. Stand-Sit : independent 5. Bed-Chair : supervision with FWW 6. Chair-Bed : supervision with FWW 7. Gait : supervision with FWW x 40' Plan of Care/Treatment Plan: 1-2x/day, 7 days/week x 1 week. Plan of care has been reviewed with the FIELD OPERATIONS MANAGER providing the service under Physical Therapy direction. Initiate Physical Therapy intervention for strengthening, bed mobility, transfers, gait, stairs, balance training, use of assistive device. DISCHARGE RECOMMENDATIONS: Home with PT vs SNF for rehabilitation prior to returning home. Will closely monitor patient's progress and mobility. TREATMENT CODE/TIME: [id number]; [id number] (22200, 97056, 71999) Please sign an return this page within 30 days if you agree with the above POC. Thank you! Physician Signature Date Chelo Molina, PT, DPT [facility] All Active Problems (Updated 05/22/23 @ 06:10 by Kory Garcia MD) Coronary artery disease (Chronic) Diabetes (Chronic) Closed hip fracture (Acute) Intertrochanteric fracture of left hip (Acute 05/22/23) Diabetes mellitus with foot ulcer due to multiple causes (Acute) Contusion of left great toe with damage to nail (Acute) Cellulitis (Acute) Dystrophia unguium (Acute) Asymmetrical sensorineural hearing loss (Acute) S/P LORETTA-BSO (Acute) Insomnia (Acute) Renal insufficiency (Chronic) Hyperlipemia (Acute) CTS (carpal tunnel syndrome) (Acute) Ventricular arrhythmia (Acute) Spinal stenosis, lumbar (Acute) spinal fusion L4/5 Degenerative joint disease of spine (Acute) Loss of balance (Acute) GERD (gastroesophageal reflux disease) (Chronic) Osteoarthritis of fingers of both hands (Acute) Mass of parotid gland (Acute) Actinic keratoses (Acute) Urinary incontinence (Acute) with recurrent UTIs ICD (implantable cardioverter-defibrillator) in place (Acute 11/13/15) Medtronic John II VR, single lead 6947, [facility] [place] CAD (coronary artery disease) (Chronic 11/13/15) 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) (06/26/09) Surgical History H/O breast biopsy History of bilateral salpingo-oophorectomy (BSO) History of cataract surgery History of total abdominal hysterectomy Hx of cholecystectomy S/P CABG (coronary artery bypass graft) (11/13/15)
[2023-05-22] MEDS: ceFAZolin 1 GM/50 ML BAG IVPB ×2 (15:08→22:28)
--- NOTE | 2023-05-22 16:06 | W.ANESPOSTOP ---
Postoperative Evaluation Date, Time and Location Date Performed: 05/22/23 Time Performed: 12:00 Patient Location: PACU Vital Signs Most Recent Imported Vital Signs: Most Recent Vital Signs Temp Pulse Resp BP Pulse Ox 35.8 C L 89 14 124/69 100 05/22/23 12:16 05/22/23 13:23 05/22/23 12:16 05/22/23 13:23 05/22/23 13:23 Pain Score Most Recent Pain Score: Most Recent Pain Score Pain Level 5 05/22/23 12:16 Assessment Mental Status: Awake (Alert & Oriented to Patient Baseline) Airway and Respiratory Function: Patent airway with normal (patient baseline) respiratory exam Cardiovascular Function: Hemodynamically Stable (Difficulty obtaining accurate diastolic reading. Patient reports no dizziness or symptoms of hypotension.) Hydration Status: Adequately Hydrated Nausea & Vomiting: No Nausea or Vomiting Pain: Pt. Denies Any Pain Peripheral Nerve Block: Patient did not receive a nerve block Postoperative Comments:: Verbal reports given to family in waiting room.
[2023-05-22] MEDS: ACETAMINOPHEN 1,000 MG/100 ML BTL 400 MG IVPB (17:39)
[2023-05-22] MEDS: Pantoprazole 40 MG VIAL IVP (17:59)
[2023-05-23] MEDS: ACETAMINOPHEN 1,000 MG/100 ML BTL 400 MG IVPB ×2 (00:30→09:06)
[2023-05-23 02:21] VITALS: BP 129/71; PULSE 82; RESP 18; TEMP 35.6; O2SAT 98
[2023-05-23] MEDS: ceFAZolin 1 GM/50 ML BAG IVPB (06:22)
[2023-05-23 07:34] LABS: Abs Immature Grans 0.03 10^3/uL (0.0-0.06); Absolute Basophil Count 0.02 10^3/uL (0.0-0.2); Absolute Lymphocyte Count 1.51 10^3/uL (1.2-3.4); Absolute Monocyte Count 0.57 10^3/uL (0.1-0.8); Absolute Neutrophil Count 4.82 10^3/uL (1.2-6.7); Basophils % 0.3; Eosinophils % 2.8; HCT 30.2 % (36.0-46.0); Immature Grans % 0.4; Lymphocytes % 21.1; MCH 27.2 pg (27.0-33.0); MCHC 33.1 % (32.0-36.0); MCV 82 fL (80-95); MPV 10.8 fL (8.0-11.0); Neutrophils % 67.4; Platelet Count 161 10^3/uL (130-400); RBC 3.67 10^6/uL (3.93-5.22); RDW 14.8 % (11.7-14.6); RDW-SD 44.7 fL; WBC 7.15 10^3/uL (4.4-10.8)
[2023-05-23 07:52] LABS: Anion Gap 7.9 mmol/L (3-11); BUN 30 mg/dL (7-18); CO2 29.1 mmol/L (21.0-32.0); CREATININE 1.5 mg/dL (0.55-1.02); Calcium 8.7 mg/dL (8.5-10.1); Chloride 101 mmol/L (98-107); Estimated GFR 35.45 (mL/min/1.73m2); Glucose 136 mg/dL (74-106); Potassium 3.9 mmol/L (3.5-5.1); Sodium 138 mmol/L (136-145)
--- NOTE | 2023-05-23 08:02 | W.PM.PROGNOT ---
Date of Service Date of service: 05/23/23 Time of Service: 08:02 Assessment and Plan Assessment and plan (1) Intertrochanteric fracture of left hip: Status: Acute Assessment and plan: 77-year-old female postop day #1 status post Left hip IMN Comfortable, awake alert resting in bed. Proximal left hip dressing with dry drainage. Early surrounding ecchymosis. Distal dressing clean dry intact. Thigh compartments soft. Tolerates passive hip motion without difficulty, neurovascular exam at baseline throughout the extremity with reasonable early active range of motion. Complete 24 hours postoperative antibiotics Physical therapy: Weightbearing as tolerated with assist device Pain control-Multimodal Start chemical DVT prophylaxis: Recommend DVT prophylaxis for total 30 days with ADELAIDA vs SQH while inpatient and typically ASA 81 mg BID as outpatient Continue mechanical DVT prophylaxis with SCDs Follow-up with Dr. Penaloza outpatient [facility] in 10-14 days Appreciate medical management and discharge when medically appropriate Postop instructions? Keep bandages clean, dry and, intact for 7 to 10 days. May then remove and leave open to air or cover incisions with Band-Aids. Objective Last Vital Signs Temp 96.1 F L 05/23/23 02:21 Pulse 82 05/23/23 02:21 Resp 18 05/23/23 02:21 BP 129/71 05/23/23 02:21 Pulse Ox 98 05/23/23 02:21 Laboratory Results - last 24 hr 05/23/23 07:10 WBC 7.15 RBC 3.67 L Hgb 10.0 L Hct 30.2 L MCV 82 MCH 27.2 MCHC 33.1 RDW 14.8 H Plt Count 161 MPV 10.8 Immature Gran % 0.4 Neutrophils % 67.4 Lymphocytes % 21.1 Monocytes % 8.0 Eosinophils % 2.8 Basophils % 0.3 Nucleated RBC % 0.0 Absolute Neutrophils 4.82 Absolute Lymphocytes 1.51 Absolute Monocytes 0.57 Absolute Eosinophils 0.20 Absolute Basophils 0.02 Sodium 138 Potassium 3.9 Chloride 101 Carbon Dioxide 29.1 Anion Gap 7.9 BUN 30 H Creatinine 1.5 H Est GFR (CKD-EPI 2020) 35.45 Glucose 136 H Calcium 8.7 Time Spent with Patient Time Spent with Patient: <25 minutes Time was spent: counseling the patient
[2023-05-23 09:01] VITALS: BP 113/50; PULSE 89; RESP 18; TEMP 36.5; O2SAT 100
[2023-05-23] MEDS: Pantoprazole 40 MG VIAL IVP (09:06)
--- NOTE | 2023-05-23 10:04 | PT.INTREAT ---
PT Notes Visit Reasons: L Hip Fracture Date: 05/23/23 PRECAUTIONS: WBAT LLE with assistive device SUBJECTIVE: Pt in when approached for therapy this morning, pt agrees to participating with session. pt seen later in the afternoon after pt family has been done visiting. pt agreed to participating. OBJECTIVE: ? PAIN: Incision site 3/10 at rest during weight bearing goes up to 6/10 when pt gets tired standing or walking Therapeutic Activities [id number]: Direct one-on-one instruction in dynamic activities to improve functional performance. ?? BED MOBILITY/TRANSFERS? Rolling L/R: Supervision Supine-sit:?Supervision ? Sit-supine: Supervision? Sit-stand: ?CGA? Stand-sit: ?CGA ? Bed-Chair:? CGA? Chair-bed: CGA Provided skilled cues and instruction on performance and technique throughout. GAIT? Assistive Device: ??FWW ? Weight bearing: WBAT Assist: CGA ?WC follow for seated rest break in between distances ? Distance:?10' AM, 50'x2 pm ? Deviation: ?Antalgic gait ? ASSESSMENT:?Pt pt able to go in and out of commode and was independent with perineal care. pt requested to stay in recliner post session to be able to eat lunch sitting up in recliner vs. laying down in bed. pt reported the pain slightly increasing after reaching 50' requiring pt to take seated rest break before heading back to pt room. Plan: Continue with global strengthening and general conditioning for improved mobility and activity tolerance. TREATMENT CODE/TIME: [id number] 15mins (8:39-8:54am). [id number] 25mins (4:05-4:30pm).
--- NOTE | 2023-05-23 12:41 | PGE_ITS ---
Date of Service Date of service: 05/23/23 Time of Service: 12:41 Assessment and Plan Assessment and plan (1) Intertrochanteric fracture of left hip: Status: Acute Assessment and plan: postop day #1 status post Left hip IMN has been re-amabulated with pain controlled continue routine post operative care per orthopedics Physical therapy: Weightbearing as tolerated with assist device Pain control-Multimodal Start chemical DVT prophylaxis: Recommend DVT prophylaxis for total 30 days with ADELAIDA vs SQH while inpatient and typically ASA 81 mg BID as outpatient Continue mechanical DVT prophylaxis with SCDs Follow-up with Dr. Penaloza outpatient [facility] in 10-14 days wound/dressing instructions? Keep bandages clean, dry and, intact for 7 to 10 days. May then remove and leave open to air or cover incisions with Band-Aids. (2) Diabetes: Status: Chronic Assessment and plan: She is a type 1 DM and on an insulin pump. Her A1c is 7.9 and BG well controlled -Continue w/ basal insulin rate -BG 140-180 and use prn insulin if required Qualifiers: Diabetes mellitus complication status: with hyperglycemia Diabetes mellitus type: type 1 Qualified Code(s): E10.65 - Type 1 diabetes mellitus with hyperglycemia (3) HTN (hypertension): Status: Chronic Assessment and plan: blood pressure has been controlled off medication continue to monitor and resume when appropriate Qualifiers: Hypertension type: primary hypertension Qualified Code(s): I10 - Essential (primary) hypertension (4) Hyperlipemia: Status: Acute Assessment and plan: resume Lipitor 40mg daily (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 The plan is to continue w/ active surveillance for now. -[place] ENT DR Ana Acuña [place] [facility] [place] for now (6) CAD (coronary artery disease): Status: Chronic Assessment and plan: -continue ASA 81mg daily -continue Lipitor 40mg daily (7) On deep vein thrombosis (DVT) prophylaxis: Status: Acute Assessment and plan: enoxaparin while hospitalized asa at discharge (8) Discharge planning issues: Status: Acute Assessment and plan: PT following case management following \ discussed with DR Mauricio Subjective Subjective Patient reports: no new complaints, feels better, pain is less and afebrile; denies shortness of breath Exam Const General: cooperative, healthy appearing, comfortable, no acute distress and well developed Nutritional Appearance: average body habitus Orientation: alert, awake and oriented x3 HENMT Head: normal to inspection Ears: external ears normal General nose exam: external nose normal Face and sinus: normal facial exam Eyes General: appearance normal, both eyes and all related structures Eyelids: eyelids normal Sclera: sclerae normal Pupils: PERRL Neck Neck: normal visual inspection Resp Effort & Inspection: normal respiratory effort and able to speak in complete sentences Auscultation: clear to auscultation bilaterally Cardio Rate: regular rate Rhythm: regular rhythm GI Inspection: normal to inspection Palpation: soft Percussion: normal to percussion Auscultation: normal bowel sounds Skin General skin exam: ecchymosis Lesions: other (surgical dressing CDI) Rashes: no rashes Neuro General: patient alert, patient awake and patient oriented x3 Extrem General: normal to inspection Other: R foot w/ all of toes surgically resected Objective Last Vital Signs Temp 36.5 C 05/23/23 09:01 Pulse 89 05/23/23 09:01 Resp 18 05/23/23 09:01 BP 113/50 L 05/23/23 09:01 Pulse Ox 100 05/23/23 09:01 Laboratory Results - last 24 hr 05/23/23 07:10 WBC 7.15 RBC 3.67 L Hgb 10.0 L Hct 30.2 L MCV 82 MCH 27.2 MCHC 33.1 RDW 14.8 H Plt Count 161 MPV 10.8 Immature Gran % 0.4 Neutrophils % 67.4 Lymphocytes % 21.1 Monocytes % 8.0 Eosinophils % 2.8 Basophils % 0.3 Nucleated RBC % 0.0 Absolute Neutrophils 4.82 Absolute Lymphocytes 1.51 Absolute Monocytes 0.57 Absolute Eosinophils 0.20 Absolute Basophils 0.02 Sodium 138 Potassium 3.9 Chloride 101 Carbon Dioxide 29.1 Anion Gap 7.9 BUN 30 H Creatinine 1.5 H Est GFR (CKD-EPI 2020) 35.45 Glucose 136 H Calcium 8.7 Time Spent with Patient Time Spent with Patient: 25-34 minutes Time was spent: preparing to see the patient(eg.review tests), obtaining and/or reviewing separately otained hiistory, ordering medications,tests, procedures, indepentently interpreting results and counseling the patient
[2023-05-23] MEDS: Enoxaparin 40 MG/0.4 ML SYR SC (13:17)
--- NOTE | 2023-05-23 14:28 | CMPROGNOTE_ITS ---
Date of service: 05/23/23 Care Management Progress Note Progress Note Text Progress Note Text: S/O: Liane was sitting in her chair when meeting with CM. Liane reported that she anticipates discharge this week. Reviewed discharge planning. Pt reported she would be agreeable to PT. A: Liane, a 77 year old female who was admitted to [facility] for L Hip Fracture P: Liane will discharge when medically cleared and transport home via private vehicle. She will F/U with her PCP and plan of care. SDOH(Care Management) Screening Will the Patient Participate in the Screening?: Yes Do you worry about having a steady place to live?: no In the past 12 months, have you had to go without electric, gas, oil or water in your home?: no Have you or anyone in your house had to go without enough food to eat?: no Has lack of transportation kept you from medical appointments or from doing things needed for daily living?: no Has anyone in your support network made you feel unsafe for any reason?: no
[2023-05-23 15:59] VITALS: BP 194/78; PULSE 67; RESP 18; TEMP 36.5; O2SAT 98
[2023-05-23] MEDS: Acetaminophen 500 MG TAB 1000 MG PO ×2 (16:38→23:48)
[2023-05-23] MEDS: Sucralfate 1 GM TAB PO ×2 (16:38→19:45)
[2023-05-24] MEDS: Enoxaparin 40 MG/0.4 ML SYR SC (07:41)
[2023-05-24] MEDS: Pantoprazole 40 MG TABCR PO (07:42)
[2023-05-24] MEDS: Atorvastatin 20 MG TAB 40 MG PO (07:42)
[2023-05-24] MEDS: Cholecalciferol (Vitamin D3) 1,000 UNIT TAB 5000 UNITS PO (07:42)
[2023-05-24] MEDS: Thiamine 100 MG TAB 200 MG PO (07:42)
[2023-05-24] MEDS: Aspirin E.C. 81 MG TABEC PO (07:43)
[2023-05-24] MEDS: Acetaminophen 500 MG TAB 1000 MG PO ×3 (07:43→23:34)
[2023-05-24] MEDS: Sucralfate 1 GM TAB PO ×4 (07:43→19:55)
[2023-05-24] MEDS: Vitamins B Comp w/C TAB 1 TAB PO (07:43)
[2023-05-24] MEDS: DULoxetine 20 MG CAP 40 MG PO (07:43)
[2023-05-24 08:29] VITALS: BP 164/56; PULSE 86; RESP 18; TEMP 36.7; O2SAT 97
--- NOTE | 2023-05-24 15:11 | PGE_ITS ---
Date of Service Date of service: 05/24/23 Time of Service: 15:11 Assessment and Plan Assessment and plan (1) Intertrochanteric fracture of left hip: Status: Acute Assessment and plan: postop day #2 status post Left hip IMN has been re-amabulated with pain controlled continue routine post operative care per orthopedics Physical therapy: Weightbearing as tolerated with assist device Pain control-Multimodal Start chemical DVT prophylaxis: Recommend DVT prophylaxis for total 30 days with ADELAIDA vs SQH while inpatient and typically ASA 81 mg BID as outpatient Continue mechanical DVT prophylaxis with SCDs Follow-up with Dr. Penaloza outpatient [facility] in 10-14 days wound/dressing instructions? Keep bandages clean, dry and, intact for 7 to 10 days. May then remove and leave open to air or cover incisions with Band-Aids. (2) Diabetes: Status: Chronic Assessment and plan: She is a type 1 DM and on an insulin pump. Her A1c is 7.9 and BG mostly well controlled but had a low overnight -Continue w/ basal insulin rate -BG 140-180 and use prn insulin if required Qualifiers: Diabetes mellitus type: type 1 Diabetes mellitus complication status: with hyperglycemia Qualified Code(s): E10.65 - Type 1 diabetes mellitus with hyperglycemia (3) HTN (hypertension): Status: Chronic Assessment and plan: blood pressure elevated today, will restart home meds continue to monitor and adjust as needed Qualifiers: Hypertension type: primary hypertension Qualified Code(s): I10 - Essential (primary) hypertension (4) Hyperlipemia: Status: Acute Assessment and plan: Lipitor 40mg daily (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 The plan is to continue w/ active surveillance for now. -[place] E[place] DR Ana Acuña [place] [facility] [place] w/ [place] for now (6) CAD (coronary artery disease): Status: Chronic Assessment and plan: -continue ASA 81mg daily -continue Lipitor 40mg daily (7) On deep vein thrombosis (DVT) prophylaxis: Status: Acute Assessment and plan: enoxaparin while hospitalized asa at discharge (8) Discharge planning issues: Status: Acute Assessment and plan: PT following case management following \anticipate home tomorrow with services. discussed with DR Campos Subjective Subjective Patient reports: still having pain, tolerating liquids well, tolerating a regular diet, voiding w/o difficulty and afebrile; denies shortness of breath Interval history since last seen: re-ambulated with PT, making good progress, able to do stairs Exam Const General: cooperative, healthy appearing, comfortable, no acute distress and well developed Nutritional Appearance: average body habitus Orientation: alert, awake and oriented x3 HENMT Head: normal to inspection Ears: external ears normal General nose exam: external nose normal Face and sinus: normal facial exam Eyes General: appearance normal, both eyes and all related structures Eyelids: eyelids normal Sclera: sclerae normal Pupils: PERRL Neck Neck: normal visual inspection Resp Effort & Inspection: normal respiratory effort and able to speak in complete sentences Auscultation: clear to auscultation bilaterally Cardio Rate: regular rate Rhythm: regular rhythm GI Inspection: normal to inspection Palpation: soft Percussion: normal to percussion Auscultation: normal bowel sounds Skin General skin exam: ecchymosis Lesions: other (surgical dressing CDI) Rashes: no rashes Neuro General: patient alert, patient awake and patient oriented x3 Extrem General: normal to inspection Other: R foot w/ all of toes surgically resected Objective Last Vital Signs Temp 36.7 C 05/24/23 08:29 Pulse 86 05/24/23 08:29 Resp 18 05/24/23 08:29 BP 164/56 H 05/24/23 08:29 Pulse Ox 97 05/24/23 08:29 Time Spent with Patient Time Spent with Patient: 35-49 minutes Time was spent: preparing to see the patient(eg.review tests), obtaining and/or reviewing separately otained hiistory, ordering medications,tests, procedures, indepentently interpreting results, counseling the patient and care coordination
[2023-05-24] MEDS: Ketorolac 15 MG/ML VIAL IVP (15:20)
[2023-05-24 15:49] VITALS: BP 151/76; PULSE 93; RESP 18; TEMP 36.1; O2SAT 98
--- NOTE | 2023-05-24 16:07 | PT.INTREAT ---
Date of service: 05/24/23 Time of Service: 09:30 PT Notes Visit Reasons: L Hip Fracture Inpatient Physical Therapy Treatment Note [facility] Date: 05/24/23 PRECAUTIONS: Fall, standard, activity as tolerated. WBAT LLE with AD. SUBJECTIVE: Patient reports feeling tender from walking yesterday. Steadfastly denies pain, but uses tender, sore, and discomfort frequently. AFTERNOON: Maintains sore and tender but not painful, agreeable to attempt stairs. After stairs, reports now that's hurting pretty good. OBJECTIVE: Supine in bed, agreeable to therapy ? PAIN: 07/12 AFTERNOON: 11/11, notified SANDRA Chaudhry and RHONDA Sainz. VITALS: monitored by nursing staff. BED MOBILITY/TRANSFERS? Rolling L/R: not assessed Supine-sit: modified independent with side rails? Sit-supine: min assist to raise affected leg into bed ? Sit-stand: SBA? Stand-sit: SBA ? Bed-Chair: CGA ? Chair-bed: CGA Gait Training ([id number]): Direct one-on-one instruction and skilled instruction in: [x] employing an assistive device [] modified weight-bearing status [x] movement sequencing [] turning and movement with proper form [] Provided verbal cues for equipment management and technique [x] Provided instruction in gait pattern [] Patient education regarding pacing and breathing techniques to maximize activity tolerance? GAIT? STAIRS: Patient ascends and descends 2x 2 four inch stairs with step to gait pattern, CGA, bilateral handrails. Cueing provided for gait sequence. ? Therapeutic Exercises ([id number]): Direct one-on-one instruction in therapeutic exercises to develop strength, endurance, range of motion and flexibility. ? Exercises ? [] Ambulation ? Assistive Device: FWW ? Weight bearing: WBAT Assist: CGA? Distance:? 150 feet ? Deviation: slow jacqueline, reduced step height and length, antalgic gait pattern with reduced stance time LLE. ? Provided skilled instruction in proper exercise performance Provided skilled manual cues to facilitate proper muscle recruitment and/or form. ASSESSMENT:? Patient reports increased pain after completing stairs in the afternoon, RN notified. PLAN: Continue global strengthening per plan of care until patient is medically cleared for discharge. TREATMENT CODE/TIME: 25 minutes beginning at 9:30 and 26 minutes beginning at 14:27 for a total of 51 minutes today.
--- NOTE | 2023-05-24 17:06 | PDOC.CMPRO ---
Date of service: 05/24/23 Time of Service: 17:06 Care Management Progress Note Progress Note Text Progress Note Text: S/O: Katelynn was sitting up in her chair when CM met with her. Her sister was visiting, but left shortly after CM entered the room. Katelynn discussed how supportive her family is, including her sister, brother, and children. She stated that her ex is a very close friend, and he will be taking her cat home with him, as she fears tripping over her. PT is recommending HH PT, and Katelynn reports that she feels that is a good plan, and she is looking forward to returning home. CM will continue to follow. A: Liane is a 77 year old female who was admitted to [facility] on 05/22/23 for L Hip Fracture. P: Liane will discharge when medically cleared with new orders for HH PT, and will transport home via private vehicle by her daughter. She will F/U with her PCP and discharge plan of care. SDOH(Care Management) Screening Will the Patient Participate in the Screening?: Yes Do you worry about having a steady place to live?: no In the past 12 months, have you had to go without electric, gas, oil or water in your home?: no Have you or anyone in your house had to go without enough food to eat?: no Has lack of transportation kept you from medical appointments or from doing things needed for daily living?: no Has anyone in your support network made you feel unsafe for any reason?: no
[2023-05-25 07:30] VITALS: BP 177/79; PULSE 79; RESP 16; TEMP 35.6; O2SAT 99
[2023-05-25] MEDS: Cholecalciferol (Vitamin D3) 1,000 UNIT TAB 5000 UNITS PO (08:44)
[2023-05-25] MEDS: DULoxetine 20 MG CAP 40 MG PO (08:45)
[2023-05-25] MEDS: Aspirin E.C. 81 MG TABEC PO (08:45)
[2023-05-25] MEDS: Atorvastatin 20 MG TAB 40 MG PO (08:45)
[2023-05-25] MEDS: Vitamins B Comp w/C TAB 1 TAB PO (08:45)
[2023-05-25] MEDS: Sucralfate 1 GM TAB PO ×2 (08:45→11:42)
[2023-05-25] MEDS: Acetaminophen 500 MG TAB 1000 MG PO (08:45)
[2023-05-25] MEDS: Pantoprazole 40 MG TABCR PO (08:45)
[2023-05-25] MEDS: Enoxaparin 40 MG/0.4 ML SYR SC (08:46)
[2023-05-25] MEDS: Normal Saline Flush 10 ML SYR IVP (08:46)
[2023-05-25] MEDS: Thiamine 100 MG TAB 200 MG PO (08:46)
--- NOTE | 2023-05-25 09:20 | PT.INTREAT ---
Date of service: 05/25/23 Time of Service: 09:22 PT Notes Visit Reasons: L Hip Fracture Inpatient Physical Therapy Treatment Note [facility] Date: 05/26/23 PRECAUTIONS: Fall, standard, activity as tolerated. WBAT LLE SUBJECTIVE: Patient reports soreness at distal anterior thigh that starts approximately 6 inches above knee and then shifts to the medial aspect of the knee. Denies any other discomfort. OBJECTIVE: Sitting up in bedside chair, agreeable to therapy ? PAIN: 07/12 VITALS: monitored by nursing staff. ? BED MOBILITY/TRANSFERS? Rolling L/R: not assessed Supine-sit: not assessed ? Sit-supine: not assessed ? Sit-stand: SBA ? Stand-sit: SBA ? Bed-Chair: SBA ? Chair-bed: SBA ? Therapeutic Exercises ([id number]): Direct one-on-one instruction in therapeutic exercises to develop strength, endurance, range of motion and flexibility. Ambulation ? Assistive Device: FWW? Weight bearing: WBAT Assist: SBA ? Distance:? 200 feet ? Deviation: antalgic gait pattern with reduced stance phase left side, reduced heel strike / toe off, reduced step height. ? Provided skilled instruction in proper exercise performance Provided skilled manual cues to facilitate proper muscle recruitment and/or form. ASSESSMENT:? Patient tolerates therapy well, declines additional stair training stating that she isn't worried about that. Reports no additional concerns about going home. PLAN: Patient is anticipated to discharge today with home health services. TREATMENT CODE/TIME: 26 minutes beginning at 9:22
--- NOTE | 2023-05-25 10:06 | PDOC.CMDIS ---
Date of service: 05/25/23 LACE Index Scoring Tool Questions: Length of Stay (in days): 3 Was the patient admitted via the E.D.?: Yes Comorbidities: Diabetes w/o Complication E.D. Visits: 0 Answers: Total Score: 7 Risk of Readmission: Low Risk Care Management Discharge Plan Reason for Hospitalization: L Hip Fracture Discharge Plan: Liane will return home via private vehicle. She will follow up with her PCP and plan of care as instructed. Liane will have new PT and RN. CM completed CO[facility] referral for meals on wheels. Patient/Family Education Needs: Review discharge instructions and discuss Ask ME Three [facility] Health Related Social Needs: No Data to Display
[2023-05-25] MEDS: Valsartan 40 MG TAB PO (10:32)
[2023-05-25] MEDS: Insulin Aspart 300 UNITS/3 ML PEN SC (13:58)
--- NOTE | 2023-05-25 14:39 | DSE_ITS ---
Date of service: 05/25/23 Time of Service: 09:30 DS: Diagnosis Discharge Diagnosis (1) Intertrochanteric fracture of left hip: Status: Acute (2) Diabetes: Status: Chronic (3) HTN (hypertension): Status: Chronic (4) Hyperlipemia: Status: Acute (5) Mass of parotid gland: Status: Acute (6) CAD (coronary artery disease): Status: Chronic Discharge Plan Disposition Patient Disposition: Home W/Home Health Services Condition: Improving Discharge Details Reason For Visit: L Hip Fracture Admit Date/Time: 05/22/23 06:18 Admit Provider: Kory Garcia Attending Provider: Kory Garcia Primary Care Provider: Alexander Adams Hospital Course Hospital Course: This 77 years old female patient's with past medical history of coronary artery disease status post CABG, type 1 diabetes mellitus on insulin pump complicated with severe neuropathy and Charcot's foot presented to the emergency room at [facility] on 05/22/2023 s/p fall. The patient reported hearing a pop after falling in the bathroom then noticing her left leg being internally rotated; was unable to get up or ambulate and at the time denied hitting her head or having loss consciousness. Patient reported slowly crawling over an hour to her living room and calling family members for help. Upon arrival to the ED patient complaining of pain radiating down her left leg. Pelvic CT showed an acute comminuted impacted intertrochanteric fracture of the left femur. Labs in the ED were unremarkable. An orthopedic consult was placed and repair in the operating room plan for the same day. The hospitalist was consulted and accepted the patient on the medical surgical floor for evaluation and management of left femur fracture. Upon arrival to the floor, the patient was kept n.p.o. and pain management was continued with morphine IV as needed. Hospitalists mentioned that suspected leukocytosis was most likely reactive with the trauma and pain. Her chronic condition was managed with her home med regimen including insulin pump for diabetes prior to call for surgery. Valsartan was held due to creatinine of 1.2 and IV push hydralazine with parameters was ordered for blood pressure management with parameters. ASA and Lipitor were initially held then resumed after surgery. Post surgical intervention with Dr. Penaloza, the recommendations were to continue DVT prophylaxis for total of 10 to 30 days with low molecular weight heparin or subcutaneous heparin while inpatient, and changed to aspirin 81 mg p.o. twice daily as outpatient. Mechanical DVT prophylaxis with SCDs was also recommended inpatient. Follow-up with Dr. Penaloza from orthopedics within 10 to 14 days is also needed; appointment made for 06/01/2023. A follow-up appointment with the primary care is also made for the same date. The dressing is to be kept intact for 7 to 10 days; will order home health nursing for dressing change every other day for that time frame. The patient was seen by physical therapy which followed the orthopedics recommendation for weight bearing as tolerated. The patient will be discharged with home health physical therapy to continue with global strengthening and general conditioning for improved mobility and activity tolerance, Occupational Therapy and nursing. The patient is also requesting assistance with meal preparation and care management is aware. Pain management initially done with, PRN morphine and ketorolac as well as scheduled acetaminophen. At the time of discharge, the patient is achieving pain management with scheduled acetaminophen; noting that the patient has allergies to celebrex, gabapetin and multiple opioids. Discussed with DR. Campos Home Meds and New Rx's Prescriptions: New aspirin 81 mg Tablet,Delayed Release (Dr/Ec) 81 mg PO BID Qty: 60 0RF Rx Instructions: Then refer to PCP after 30 days for low dose aspirin therapy acetaminophen 500 mg Tablet 1,000 mg PO Q8H Qty: 180 0RF Continued Novolin R Regular U100 Insulin 100 unit/mL solution See Rx Instructions subcut USEASDIRECTD Rx Instructions: use with insulin pump meclizine 25 mg tablet 25 mg PO .Q6hrs PRN silver sulfadiazine [Silvadene] 1 % cream 1 applic topical ONCE Qty: 50 0RF Rx Instructions: apply a 1.5 mm thickness vitamin B complex [B Complex-Vitamin B12] Tablet 1 tab PO DAILY glucagon 1 mg/0.2 mL auto-injector 1 mg subcut ONCE Rx Instructions: as a single dose; may repeat once after 15 minutes if no response cranberry extract 250 mg capsule 250 mg PO DAILY Rx Instructions: administer with a meal esomeprazole magnesium 40 mg capsule,delayed release(DR/EC) 40 mg PO DAILY sucralfate [Carafate] 1 gram tablet 1 g PO QACHS pyridoxine (vitamin B6) 100 mg tablet 200 mg PO DAILY valsartan 40 mg tablet 40 mg PO .COMPLEX PRN Rx Instructions: 40 mg orally three times weekly only due to low bp PRN; cholecalciferol (vitamin D3) [Vitamin D3] 50 mcg (2,000 unit) tablet 5,000 unit PO DAILY duloxetine 40 mg capsule,delayed release(DR/EC) 40 mg PO DAILY insulin aspart U-100 [Novolog PenFill U-100 Insulin] 100 UNIT/1 ML cartridge 100 unit SQ DAILY Patient Comments: pt has insulin pump dose is between 40 and 50 units daily thiamine mononitrate (vit B1) [Vitamin B-1 (mononitrate)] 100 MG tablet 200 mg PO DAILY atorvastatin [Lipitor] 20 MG tablet 40 mg PO DAILY insulin glargine [Lantus U-100 Insulin] 100 UNITS/ML solution 28 units SQ DAILY PRN (Reason: insulin pump failure) Discontinued aspirin 81 mg tablet,delayed release (DR/EC) 81 mg PO DAILY acetaminophen 500 mg capsule 500 mg PO Q6H PRN Discharge Instructions Additional Instructions: Per Dr. Penaloza- Recommend DVT prophylaxis for total 30 days with ADELAIDA vs SQH while inpatient and typically ASA 81 mg BID as outpatient Keep bandages clean, dry and, intact for 7 to 10 days. May then remove and leave open to air or cover incisions with Band-Aids. Follow up in 10-14 days Referrals: Vinayak Downs MD [ NON-[facility] STAFF PHYSICIAN] - 06/01/23 1:30 pm (Please arr nesha at 1:15pm.) Julien Penaloza MD [ [facility] STAFF PHYSICIAN] - 06/01/23 9:00 am Activity:: Activity as Tolerated Equipment/Supplies:: Walker Diet:: Diabetic and heart healthy Discharge Orders Discharge Orders: Discharge Order (Routine); Ordered 05/25/23 Ordered By: Melanie Chappell DS: Summary Time Spent with Patient providing and/or coordinating discharge services: Greater than 30 minutes Status at Discharge Functional status at discharge: uses cane/walker Overall status at discharge: patient is progressing back to baseline Mental Status: mental status grossly normal Speech and Movement: speech and movement normal Mood: congruent mood Affect: normal affect Quality:SDOH Health Related Social Needs: No Data to Display Exam Narrative Exam Narrative: Constitutional The patient is sitting in chair, doing morning hygiene care with assistance setting up, and cooperative during the interview. The patient is without acute distress HENMT: Head is atraumatic, normocephalic, no lymphadenopathy. Facial structures with normal appearance Eyes: Well aligned, intact ROM Neuro:alert and oriented to self, person, place, time and situation. No neurological focal deficit, PERRLA on ambient light Resp: Normal respiratory pattern, speaks in full sentences, unlabored breathing, clear lung bilaterally Cardio: regular rhythm, S1, S2, no murmur, capillary refill<3 sec., bilateral radial and dorsalis pedis pulses are positive but weak-tready at time, palpable GI: Abdomen is not distended, soft and non tender, bowel sounds are present : Negative Costovertebral angle tenderness, no bladder distension Back/spine/Pelvis: No back tenderness, normal alignment Integumentary: bruising to left hip, dressing ; mepilex dry clean and intact to surgical site Extremities: strength 4/5 to left lower extremity but 5/5 otherwise Psych: RASS 0, congruent mood and normal affect. Psych Mental Status: mental status grossly normal Speech and Movement: speech and movement normal Mood: congruent mood Affect: normal affect DS: Data Vitals/I&O Vitals and I&O: Vital Signs Temperature 35.6 C L 05/25/23 07:30 Temperature Source Tympanic 05/25/23 07:30 Pulse 79 05/25/23 07:30 Pulse Rhythm Regular 05/25/23 08:15 Pulse 78 05/22/23 01:51 Respiratory Rate 16 05/25/23 07:30 Respiratory Effort Normal 05/25/23 08:15 Respiratory Depth Normal 05/25/23 08:15 Respiratory Pattern Normal 05/25/23 08:15 Blood Pressure 177/79 H 05/25/23 07:30 Blood Pressure Mean 133 05/22/23 00:30 Blood Pressure Position Supine 05/22/23 00:12 Pulse Oximetry 99 05/25/23 07:30 Respiratory End-tidal CO2 36 05/22/23 12:00 Oxygen Delivery Method Room Air 05/25/23 07:30 Oxygen Flow Rate 0 05/25/23 07:30 Pain Level 1 05/25/23 09:45 Intake & Output 05/24/23 05/25/23 05/25/23 23:59 11:59 23:59 Intake Total 230 / 470 180 / 360 180 / 360 Output Total 350 / 350 Balance -120 / 120 180 / 360 180 / 360 Intake: IV Oral 220 / 460 180 / 360 180 / 360 Output: Urine 350 / 350 Other: Urine Color Straw Yellow Urine Appearance Clear Clear Urine Odor Normal None Stool Size Moderate Stool Characteristics Formed Voiding Methods Bedside Commode Data Completed and Pending Labs on day of discharge: Labs from last 24 hours 05/22/23 15:19 Urine Color Pending Urine Clarity Pending Urine pH Pending Ur Specific [place] Pending Urine Protein Pending Urine Ketones Pending Urine Blood Pending Urine Nitrite Pending Urine Bilirubin Pending Urine Urobilinogen Pending Ur Leukocyte Esterase Pending Urine Glucose Pending PFSH All Active Problems (Updated 05/23/23 @ 12:49 by Sadie Nevarez NP) Discharge planning issues (Acute) On deep vein thrombosis (DVT) prophylaxis (Acute) Coronary artery disease (Chronic) Diabetes (Chronic) Closed hip fracture (Acute) Intertrochanteric fracture of left hip (Acute 05/22/23) Diabetes mellitus with foot ulcer due to multiple causes (Acute) Contusion of left great toe with damage to nail (Acute) Cellulitis (Acute) Dystrophia unguium (Acute) Asymmetrical sensorineural hearing loss (Acute) S/P LORET[place]-BSO (Acute) Insomnia (Acute) Renal insufficiency (Chronic) Hyperlipemia (Acute) CTS (carpal tunnel syndrome) (Acute) Ventricular arrhythmia (Acute) Spinal stenosis, lumbar (Acute) spinal fusion L4/5 Degenerative joint disease of spine (Acute) Loss of balance (Acute) GERD (gastroesophageal reflux disease) (Chronic) Osteoarthritis of fingers of both hands (Acute) Mass of parotid gland (Acute) Actinic keratoses (Acute) Urinary incontinence (Acute) with recurrent UTIs ICD (implantable cardioverter-defibrillator) in place (Acute 11/13/15) [employer] John II VR, single lead [id number], [place] [facility] [place] 07/01/2009 CAD (coronary artery disease) (Chronic 11/13/15) 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) (06/26/09) Surgical History H/O breast biopsy History of bilateral salpingo-oophorectomy (BSO) History of cataract surgery History of total abdominal hysterectomy Hx of cholecystectomy S/P CABG (coronary artery bypass graft) (11/13/15) Family History Father Heart disease Hypertension Mother Diabetes Heart disease Hypertension Social History Smoking/Tobacco Use Status: Former Tobacco Use Smoking risk assessment performed?: Yes Alcohol Intake: current Alcohol Intake frequency: holidays/special occasions only Alcohol type: wine Drug use: Never Household members: none Housing: house What is your relationship status?: Panel score (0-1 are the most socially isolated patients): 0 Time Spent with Patient Time Spent with Patient: >85 minutes Time was spent: preparing to see the patient(eg.review tests), obtaining and/or reviewing separately otained hiistory, ordering medications,tests, procedures, referring, communicating with other health healthcare social worker, indepentently interpreting results, counseling the patient, care coordination and other
--- NOTE | 2023-05-25 15:33 | PDOC.HHF2F_ITS ---
Home Health Referral Home Health Orders Clinical synopsis of why skilled professionals are needed: S/p fall and left acute communited impacted intertrochanteric femur fracture and repair on 05/22/2023. Worked with PT and still needs home PT; assistance for ADL-hygiene, and meals. Will need dressing change every other day with mepilex application every other day; dressing to be kept dry, clean and covered 7-10 days post up after surgery. F/u with orthopedics and PCP on 06/01/23. Medical diagnosis necessitation home health referral: S/p repair of left acute communited impacted intertrochanteric femur fracture Registered Nurse: Check all that apply Assess for exacerbation of medical condition, instruct patient/caregivers on signs and symptoms to report for early detection: Ordered Assess wound for signs and symptoms of infection, instruct on wound care and/or provide skilled wound care consisting of: Dressing change: Wash with sterile saline, with sterile 4X4 compress and apply Mepilex every other day Physical Therapist: Check all that apply Increase strength & endurance for safe mobility at home: Ordered To design/establish home maintenance program: Ordered Fall reduction therapy program for patient with history of frequent falls: Ordered Home safety evaluation and teaching/gait training including stair management (if applicable): Ordered Occupational Therapist: Evaluate and treat for patient unable to perform ADL/IADL/self-care: Ordered Lead Systems Architect: Assist with community resources: Ordered Assist with ocean transportation intermediary care planning: Ordered Home Bound Status Requires the aid of supportive device (check all that apply): Walker Describe why leaving home would require a considerable and taxing effort: Requires frequent rest periods and Safety Concerns: describe (S/p fall and left femur fracture repair on 05/22/2023) Encounter Date and Reason: I certify that a FTF encounter for this patient was performed on May 25, 2023 and that such encounter was related to the primary reason the patient requires home health services. The encounter was conducted in the following manner: * By me as the certifying physician, COMPUTER HARDWARE TECHNICIAN, PA or * By an inpatient physician, COMPUTER HARDWARE TECHNICIAN or PA during an inpatient stay who communicated findings to me, Certification And Authentication I certify that I composed the above information based on my clinical judgment relating to this patient's medical condition and, if applicable, clinical findings communicated to me by the NPP or inpatient physician who performed the FTF encounter. Name of Provider that will be monitoring home health services: Alexander Adams
== END 2023-05-25 16:21 | disposition home health service (06) | DRG 482 ==
LOC: ER 06:54 → MS 07:27
PROVIDERS: Nurse Practitioner Acute Care; Student in an Organized Health Care Education/Training Program; Admitting Provider Student in an Organized Health Care Education/Training Program; Emergency Provider Student in an Organized Health Care Education/Training Program; PCP Internal Medicine; Visit Provider Student in an Organized Health Care Education/Training Program
PROC: 0QS706Z Reposition Left Upper Femur with Intramedullary Internal Fixation Device, Open Approach (ICD-10-PCS; CPT 27245; principal; 2023-05-22 08:50)
DX: S72.142A Displaced intertrochanteric fracture of left femur, initial encounter for closed fracture (principal); E78.5 Hyperlipidemia, unspecified; K11.8 Other diseases of salivary glands; Z79.899 Other long term (current) drug therapy; I25.10 Atherosclerotic heart disease of native coronary artery without angina pectoris; Z79.4 Long term (current) use of insulin; G47.00 Insomnia, unspecified; M48.061 Spinal stenosis, lumbar region without neurogenic claudication; K21.9 Gastro-esophageal reflux disease without esophagitis; Z95.810 Presence of automatic (implantable) cardiac defibrillator; Z95.1 Presence of aortocoronary bypass graft; Z87.891 Personal history of nicotine dependence; Z86.74 Personal history of sudden cardiac arrest; W18.39XA Other fall on same level, initial encounter; N18.9 Chronic kidney disease, unspecified; I12.9 Hypertensive chronic kidney disease with stage 1 through stage 4 chronic kidney disease, or unspecified chronic kidney disease; Z98.1 Arthrodesis status; M19.042 Primary osteoarthritis, left hand; M19.041 Primary osteoarthritis, right hand; E10.43 Type 1 diabetes mellitus with diabetic autonomic (poly)neuropathy; E10.22 Type 1 diabetes mellitus with diabetic chronic kidney disease; E10.42 Type 1 diabetes mellitus with diabetic polyneuropathy; E10.610 Type 1 diabetes mellitus with diabetic neuropathic arthropathy; D72.829 Elevated white blood cell count, unspecified; Z96.41 Presence of insulin pump (external) (internal); E10.65 Type 1 diabetes mellitus with hyperglycemia
CPT/HCPCS: 27245; 00123; 36415; 73521; 73552; 80048; 80053; 93005; 96374; 96375; 96376; 97110; 97116; 97161; 97530; 99223; 99285; J1650; 71045; 72192; 73501; 73502; 81003; 83036; 85025; 93010; 99222; 99232; 99239; J0131; J0665; J0690; J1100; J1805; J1815; J1885; J2001; J2270; J2371; J2405; J2470; J2704

== ENCOUNTER 2023-06-01 11:42 | Outpatient (CLI) | payer MEDICARE, BC, SELFPAY ==
--- NOTE | 2023-06-01 09:00 | DI.RAD_ITS ---
Exam(s) XR HIP LT AP LAT ONLY EXAM: XR HIP LT AP LAT ONLY INDICATION: F/U FRACTURE. COMPARISON: XA XR HIP LT IN OR from 05/22/2023 CR,XR XR HIP LT AP LAT ONLY from 05/22/2023 TECHNIQUE: 2D digital imaging was performed. Two views. FINDINGS: Intramedullary jamal and compression nail are noted in the proximal left femur. The hardware and fract ure alignment appears satisfactory. DATA REPOSITORY: RADIATION DOSE DELIVERED:
== END 2023-06-01 11:43 | disposition home or self-care (01) ==
LOC: DIORS 11:42
PROVIDERS: PCP Family Medicine; Referring Provider Internal Medicine; Visit Provider Student in an Organized Health Care Education/Training Program
DX: S72.142D Displaced intertrochanteric fracture of left femur, subsequent encounter for closed fracture with routine healing; X58.XXXD Exposure to other specified factors, subsequent encounter
CPT/HCPCS: 73502

== ENCOUNTER 2023-06-07 15:32 | Outpatient (REF) | payer MEDICARE, BC, SELFPAY ==
[2023-06-07 14:42] LABS: Hemoglobin A1C 7.7 % (<5.7)
== END 2023-06-07 15:33 | disposition home or self-care (01) ==
LOC: NCHCN 15:32
PROVIDERS: PCP Family Medicine; Visit Provider Family Medicine
DX: E10.9 Type 1 diabetes mellitus without complications (principal)
CPT/HCPCS: 83036

== ENCOUNTER → 2023-06-14 11:39 | Outpatient (BNVA) | payer MEDICARE, BC, SELFPAY | PROVIDERS: PCP Family Medicine; Referring Provider Family Medicine; Visit Provider Podiatrist | DX: E11.621 Type 2 diabetes mellitus with foot ulcer; E11.610 Type 2 diabetes mellitus with diabetic neuropathic arthropathy; L84 Corns and callosities | CPT/HCPCS: 11720; 17110 ==

== ENCOUNTER 2023-07-20 15:22 | Outpatient (CLI) | payer MEDICARE, BC, SELFPAY ==
--- NOTE | 2023-07-20 09:30 | DI.RAD_ITS ---
Exam(s) XR HIP LT AP LAT ONLY EXAM: XR HIP LT AP LAT ONLY INDICATION: F/U FRACTURE. COMPARISON: CR XR HIP LT AP LAT ONLY from 06/01/2023 TECHNIQUE: 2D digital imaging was performed. Two views. FINDINGS: There has been no change in fracture or hardware alignment. There has been some increased healing at the fracture site. No new abnormalities are seen. DATA REPOSITORY: RADIATION DOSE DELIVERED:
== END 2023-07-20 15:23 | disposition home or self-care (01) ==
LOC: DIORS 15:38
PROVIDERS: PCP Family Medicine; Referring Provider Family Medicine; Visit Provider Student in an Organized Health Care Education/Training Program
DX: S72.142D Displaced intertrochanteric fracture of left femur, subsequent encounter for closed fracture with routine healing (principal); X58.XXXD Exposure to other specified factors, subsequent encounter
CPT/HCPCS: 73502

== ENCOUNTER → 2023-08-17 07:59 | Outpatient (BNVA) | payer MEDICARE, BC, SELFPAY | PROVIDERS: PCP Family Medicine; Referring Provider Family Medicine; Visit Provider Podiatrist | DX: I70.203 Unspecified atherosclerosis of native arteries of extremities, bilateral legs; E11.621 Type 2 diabetes mellitus with foot ulcer; L84 Corns and callosities | CPT/HCPCS: 11719; 11720 ==

== ENCOUNTER 2023-12-11 18:40 | Observation (INO) | payer MEDICARE, BC, SELFPAY ==
[2023-12-11] VITALS (29 sets, daily range): BP systolic 114–174; BP diastolic 41–121; PULSE 83–94; RESP 14–26; TEMP 36.5–36.8; O2SAT 95–100
--- NOTE | 2023-12-11 18:45 | RT.EKG_ITS ---
APPROVED REPORT Exam: Resting ECG Reason for Exam: baseline/screening Patient Location: E HR:89 bpm ECG Measurements Heart Rate 89 AXIS PA 197 P 37 QRSd 77 QRS 47 QT 348 T 72 QTc 423 Conclusion Sinus rhythm 89 normal axis no stemi
--- NOTE | 2023-12-11 19:02 | ED.GENADUL_ITS ---
Discharge Plan Disposition Patient Disposition: Admit to [facility] Condition: Stable Discharge Details Chief Complaint: Nausea/Vomit/Diar Clinical Impression: Accidental overdose of insulin Primary Care Provider: Vinayak Downs ED Provider: Brenden Nevarez Home Meds and New Rx's Prescriptions: No Action Novolin R Regular U100 Insulin 100 unit/mL solution See Rx Instructions subcut USEASDIRECTD Rx Instructions: use with insulin pump meclizine 25 mg tablet 25 mg PO .Q6hrs PRN duloxetine 40 mg capsule,delayed release(DR/EC) 40 mg PO DAILY Rx Instructions: pt takes an additional 20mg (60mg dose total) prn. vitamin B complex [B Complex-Vitamin B12] Tablet 1 tab PO DAILY aspirin 81 mg tablet,delayed release (DR/EC) 81 mg PO DAILY glucagon 1 mg/0.2 mL auto-injector 1 mg subcut ONCE Rx Instructions: as a single dose; may repeat once after 15 minutes if no response cranberry extract 250 mg capsule 250 mg PO DAILY Rx Instructions: administer with a meal esomeprazole magnesium 40 mg capsule,delayed release(DR/EC) 40 mg PO DAILY sucralfate [Carafate] 1 gram tablet 1 g PO QACHS pyridoxine (vitamin B6) 100 mg tablet 200 mg PO DAILY valsartan 40 mg tablet 40 mg PO .COMPLEX PRN Rx Instructions: 40 mg orally three times weekly only due to low bp PRN; cholecalciferol (vitamin D3) [Vitamin D3] 50 mcg (2,000 unit) tablet 5,000 unit PO DAILY insulin aspart U-100 [Novolog PenFill U-100 Insulin] 100 UNIT/1 ML cartridge 100 unit SQ DAILY Patient Comments: pt has insulin pump dose is between 40 and 50 units daily atorvastatin [Lipitor] 20 MG tablet 40 mg PO DAILY insulin glargine [Lantus U-100 Insulin] 100 UNITS/ML solution 28 units SQ DAILY PRN (Reason: insulin pump failure) Patient Comments: 28 units at 1800 acetaminophen 500 mg Tablet 1,000 mg PO Q8H Qty: 180 0RF HPI General Date/Time Provider Initiated Documentation: 12/11/23 18:48 . HPI Narrative: 78 year-old female presents to ED today by EMS with a chief complaint of elevated blood sugar readings for the past 3 days, chronic type 1 diabetic. Quality described as feeling nauseous for the past few days, really crummy, no radiation to syncope, shakiness, altered mentation, chest pain, shortness of breath. Severity is described as moderate. Palliating factors include patient has an insulin pump on basal rate 1u/hr- took 28u of lantus at 1700 today. Provoking factors include nothing specific. Events leading up to the incident/Associated Symptoms: Patient had been treated for UTI recently. Patient not anticoagulated. Related Data Home Medications ?Medication ?Instructions ?Recorded ?Confirmed insulin aspart U-100 100 unit/mL 100 unit SQ DAILY 08/28/12 12/11/23 subcutaneous cartridge (Novolog PenFill U-100 Insulin aspart) atorvastatin 20 mg tablet (Lipitor) 40 mg PO DAILY 10/18/12 12/11/23 insulin glargine 100 unit/mL 28 units SQ DAILY PRN insulin pump 10/18/12 12/11/23 subcutaneous solution (Lantus failure U-100 Insulin) cranberry extract 250 mg capsule 250 mg PO DAILY 11/05/20 12/11/23 glucagon 1 mg/0.2 mL subcutaneous 1 mg subcut ONCE 11/05/20 12/11/23 auto-injector vitamin B complex (B 1 tab PO DAILY 11/25/21 12/11/23 Complex-Vitamin B12 tablet) esomeprazole magnesium 40 mg 40 mg PO DAILY 12/30/21 12/11/23 capsule,delayed release pyridoxine (vitamin B6) 100 mg 200 mg PO DAILY 04/29/22 12/11/23 tablet sucralfate 1 gram tablet (Carafate) 1 g PO QACHS 04/29/22 12/11/23 insulin regular human 100 unit/mL See Rx Instructions subcut 05/09/22 12/11/23 injection solution (Novolin R USEASDIRECTD Regular U-100 Insulin) meclizine 25 mg tablet 25 mg PO .Q6hrs PRN 05/09/22 12/11/23 valsartan 40 mg tablet 40 mg PO .COMPLEX PRN 05/10/22 12/11/23 cholecalciferol (vitamin D3) 50 5,000 unit PO DAILY 10/21/22 12/11/23 mcg (2,000 unit) tablet (Vitamin D3) acetaminophen 500 mg tablet 1,000 mg (2 x 500 mg) PO Q8H #180 02/21/24 09/08/24 tabs aspirin 81 mg tablet,delayed 81 mg PO DAILY 07/20/23 12/11/23 release duloxetine 40 mg capsule,delayed 40 mg PO DAILY 08/17/23 12/11/23 release Previous Rx's ?Medication ?Instructions ?Recorded acetaminophen 500 mg tablet 1,000 mg (2 x 500 mg) PO Q8H #180 05/25/23 tabs Allergies Allergy/AdvReac Type Severity Reaction Status Date / Time alendronate sodium (From Allergy Severe chest pain Verified 12/11/23 18:35 Fosamax) ezetimibe (From Zetia) Allergy Severe Anaphylaxsi Verified 12/11/23 18:35 s lisinopril (From Zestril) Allergy Severe angioedema Verified 12/11/23 18:35 amiodarone Allergy Mild Skin Rash Verified 12/11/23 18:35 amoxicillin Allergy Other (See Verified 12/11/23 18:35 Comment) iodine Allergy Keller skin Verified 12/11/23 18:35 nitrofurantoin (From Allergy Other (See Verified 12/11/23 18:35 Macrobid) Comment) oxycodone Allergy Other (See Verified 12/11/23 18:35 Comment) propoxyphene (From Allergy Other (See Verified 12/11/23 18:35 Darvocet-N) Comment) pravastatin sodium (From AdvReac Severe dizziness Verified 12/11/23 18:35 Pravachol) celecoxib (From Celebrex) AdvReac Intermediate n/v/d Verified 12/11/23 18:35 gabapentin (From Neurontin) AdvReac Intermediate n/v/d Verified 12/11/23 18:35 simvastatin (From Zocor) AdvReac Intermediate mylagia Verified 12/11/23 18:35 povidone-iodine (From AdvReac Mild Skin Rash Verified 12/11/23 18:35 Betadine) codeine (Codeine) AdvReac n/v/d Verified 12/11/23 18:35 ibandronate sodium (From AdvReac joint pain Verified 12/11/23 18:35 Boniva) propoxyphene napsylate (From AdvReac n/v/d Verified 12/11/23 18:35 Darvocet-N 100) kiwi Allergy Severe Anaphylaxsi Uncoded 12/11/23 18:35 s Ivory Soap Allergy Itching Uncoded 12/11/23 18:35 adhesive tape AdvReac Skin Rash Uncoded 12/11/23 18:35 General Stated Complaint: Nausea/Vomit/Diar MARJORIE: 3 Review of Systems All systems reviewed & are unremarkable except as noted in HPI and below Exam Narrative Exam Narrative: GENERAL APPEARANCE: Well-nourished, non-toxic, awake and alert, atraumatic, no acute distress. SKIN: Warm, pink, dry, intact, without rashes/lesions/ulcerations. HEAD: Normocephalic, atraumatic, normal hair distribution for gender/age. EYES: Normal conjunctiva, no exudates on lids/lashes. ENT: Nares patent, no circumoral cyanosis, no facial swelling NECK: Supple, trachea midline, painless cervical ROM. LUNGS/CHEST: Lungs CTA bilaterally - no rhonchi/rales/wheezes diffusely, non- labored respirations, normal A/P diameter, symmetrical expansion, no chest wall deformity HEART (CV/PV): Regular rate and rhythm without murmur, no peripheral edema, no JVD. ABDOMEN: Soft, non-distended, no guarding. MSK: Normal ROM, no swelling/deformity to bilateral UEs or LEs, moving all extremities without weakness, no cyanosis, spine midline without tenderness, normal curvature. NEURO: Mental Status AAOx4 - alert to person, place, time, events No facial droop, no forehead involvement. Motor: No focal weakness - strength 5/5 in bilateral UEs and LEs, proximal and distal, symmetric. Sensory: sensation intact to light touch globally. Gait normal: patient ambulated without ataxia into ED room. PSYCH: euthymic, cooperative, pleasant, appropriate speech Course Vital Signs Vital signs: Vital Signs Temperature 36.8 C 12/11/23 18:37 Pulse 94 H 12/11/23 18:37 Respiratory Rate 16 12/11/23 18:37 Pulse Oximetry 100 12/11/23 18:37 Temperature 36.8 C 12/11/23 18:37 Temperature Source Oral 12/11/23 18:37 Pulse 94 H 12/11/23 18:37 Respiratory Rate 16 12/11/23 18:37 Respiratory Effort Normal, Non-Labored 12/11/23 18:41 Blood Pressure Position Sitting 12/11/23 18:37 Pulse Oximetry 100 12/11/23 18:37 Oxygen Delivery Method Room Air 12/11/23 18:37 Oxygen Flow Rate 0 12/11/23 18:37 Pain Level 0 12/11/23 18:37 Medical Decision Making This dictation utilizes [id number] dictation software and may contain unedited grammatical errors. 78 year-old female presents to ED today by EMS with a chief complaint of elevated blood sugar readings for the past 3 days, chronic type 1 diabetic. Quality described as feeling nauseous for the past few days, really crummy, no radiation to syncope, shakiness, altered mentation, chest pain, shortness of breath. Severity is described as moderate. Palliating factors include patient has an insulin pump on basal rate 1u/hr- took 28u of lantus at 1700 today. Provoking factors include nothing specific. Events leading up to the incident/Associated Symptoms: Patient had been treated for UTI recently. Patients' medical history: Coronary artery disease, hypertension, history of sudden cardiac arrest, status post CABG, implanted ICD. Family and social history: Noncontributory. Pertinent exam findings / vital signs include nontoxic vitals, afebrile, benign cardiopulmonary exam, neuro intact, benign abdomen. Differential / pathologies of concern include diabetic ketoacidosis, insulin overdose, symptomatic hyperglycemia. Diagnostic studies of: -CBC, CMP, lactate, VBG, procalcitonin, lipase, magnesium, EKG. -CBC shows elevated leukocytes of 12.6, chronic anemia -Mild hyponatremia on CMP, elevated creatinine to 1.9 suspect mild dehydration, no anion gap -Glucose 322 on arrival -Lipase negative -Lactate 2.0, procalcitonin 3.8-concern for infectious etiology -VBG shows a pH of 7.34, no DKA -EKG without abnormalities Interventions of: -500 mL of fluid bolus, consult with hospitalist as the patient's blood sugars rapidly dropping on her glucose monitor to 200 by 2100hrs > OBS for glucose checks ED Course/Assessment/Plan: 78-year-old female presents with alma phenomenon hyperglycemia for the past 3 days, underwent treatment for UTI recently, has had numbers in the 5-6 100s today, her insulin pump is at a basal rate of 1 unit/h, her blood sugars have been improving by the end of the day but are very high in the morning, initially plan to consult the hospitalist to calculate for a bedtime Lantus long-acting dose which with 4 units was recommended. This brought to my attention that the patient injected 28 units subcutaneously with con current insulin pump use at 1700 hrs. today and has a high likelihood of developing hypoglycemia, will be ops overnight for glucose checks. Findings not consistent with DKA. Disposition of Accidental Overdose of Insulin. Patient verbalized understanding of the plan and return to ED criteria and engaged in shared decision making. Medical Records Medical records reviewed: Yes I reviewed the patient's medical records. Lab Data Lab results reviewed: Yes I reviewed the patient's lab results. Labs: Laboratory Tests Range/Units 12/11/23 12/11/23 18:43 19:06 WBC (4.4-10.8) 10^3/uL 12.69 H RBC (3.93-5.22) 10^6/uL 3.74 L Hgb (11.2-15.7) g/dL 10.0 L Hct (36.0-46.0) % 31.1 L MCV (80-95) fL 83 MCH (27.0-33.0) pg 26.7 L MCHC (32.0-36.0) % 32.2 RDW (11.7-14.6) % 14.9 H Plt Count (130-400) 10^3/uL 251 MPV (8.0-11.0) fL 9.9 Immature Gran % % 0.6 Neutrophils % % 84.5 Lymphocytes % % 9.5 Monocytes % % 5.2 Eosinophils % % 0.0 Basophils % % 0.2 Nucleated RBC % (0.0-0.3) % 0.0 Absolute Neutrophils (1.2-6.7) 10^3/uL 10.72 H Absolute Lymphocytes (1.2-3.4) 10^3/uL 1.21 Absolute Monocytes (0.1-0.8) 10^3/uL 0.66 Absolute Eosinophils (0.0-0.7) 10^3/uL 0.00 Absolute Basophils (0.0-0.2) 10^3/uL 0.03 VBG pH (7.31-7.41) 7.34 VBG pCO2 (41-51) mmHg 45 VBG pO2 mmHg 31 VBG HCO3 (23-28) mmol/L 25 VBG Total CO2 (24-29) mmol/L 23 L VBG O2 Saturation % 58 VBG Base Excess (-2-3) mmol/L -1 VBG Lactate (0.6-1.4) mmol/L 2.0 H Sodium (136-145) mmol/L 128 L Potassium (3.5-5.1) mmol/L 4.1 Chloride (98-107) mmol/L 94 L Carbon Dioxide (21.0-32.0) mmol/L 25.0 Anion Gap (3-11) mmol/L 9.0 BUN (7-18) mg/dL 44 H Creatinine (0.55-1.02) mg/dL 1.9 H Est GFR (CKD-EPI 2020) (mL/min/1.73m2) 26.53 Glucose (74-106) mg/dL 322 H Calcium (8.5-10.1) mg/dL 9.4 Magnesium (1.8-2.4) mg/dL 1.9 Total Bilirubin (0.2-1.0) mg/dL 0.54 AST (15-37) U/L 18 ALT (14-59) U/L 22 Alkaline Phosphatase (46-116) U/L 113 Total Protein (6.4-8.2) g/dL 7.0 Albumin (3.4-5.0) g/dL 3.4 Lipase (16-77) U/L 13 L Procalcitonin ng/mL 3.8 Quality:SDOH Health Related Social Needs: No Data to Display 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 (Acute) Contusion of left great toe with damage to nail (Acute) Cellulitis (Acute) Dystrophia unguium (Acute) Asymmetrical sensorineural hearing loss (Acute) S/P LORETTA-BSO (Acute) Insomnia (Acute) Renal insufficiency (Chronic) CTS (carpal tunnel syndrome) (Acute) Ventricular arrhythmia (Acute) Spinal stenosis, lumbar (Acute) spinal fusion L4/5 Degenerative joint disease of spine (Acute) Loss of balance (Acute) GERD (gastroesophageal reflux disease) (Chronic) Osteoarthritis of fingers of both hands (Acute) Actinic keratoses (Acute) Urinary incontinence (Acute) with recurrent UTIs ICD (implantable cardioverter-defibrillator) in place (Acute 11/13/15) [employer] John II VR, single lead [id number], [facility] [place] 07/01/2009 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) History of sudden cardiac arrest (06/21/09) Surgical History S/P CABG (coronary artery bypass graft) (11/13/15) History of cataract surgery Hx of cholecystectomy H/O breast biopsy History of bilateral salpingo-oophorectomy (BSO) History of total abdominal hysterectomy Family History Father Heart disease Hypertension Mother Diabetes Heart disease Hypertension Social History Smoking/Tobacco Use Status: Former Tobacco Use Smoking risk assessment performed?: Yes Alcohol Intake: current Alcohol Intake frequency: holidays/special occasions only Alcohol type: wine Drug use: Never Household members: none Housing: house What is your relationship status?: Panel score (0-1 are the most socially isolated patients): 0 Do you feel safe at home: Yes Do you feel safe in your relationship?: Yes
[2023-12-11 19:03] LABS: BE (Venous) -1 mmol/L (-2-3); HCO3 (Venous) 25 mmol/L (23-28); O2 Sat (Venous) 58 %; TCO2 (Venous) 23 mmol/L (24-29); pCO2 (Venous) 45 mmHg (41-51); pH (Venous) 7.34 (7.31-7.41); pO2 (Venous) 31 mmHg
[2023-12-11 19:10] LABS: Abs Immature Grans 0.08 10^3/uL (0.0-0.06); Absolute Basophil Count 0.03 10^3/uL (0.0-0.2); Absolute Lymphocyte Count 1.21 10^3/uL (1.2-3.4); Absolute Monocyte Count 0.66 10^3/uL (0.1-0.8); Absolute Neutrophil Count 10.72 10^3/uL (1.2-6.7); Basophils % 0.2 %; HCT 31.1 % (36.0-46.0); Immature Grans % 0.6 %; Lymphocytes % 9.5 %; MCH 26.7 pg (27.0-33.0); MCHC 32.2 % (32.0-36.0); MCV 83 fL (80-95); MPV 9.9 fL (8.0-11.0); Monocytes % 5.2 %; Neutrophils % 84.5 %; Platelet Count 251 10^3/uL (130-400); RBC 3.74 10^6/uL (3.93-5.22); RDW 14.9 % (11.7-14.6); WBC 12.69 10^3/uL (4.4-10.8)
[2023-12-11 19:22] LABS: ALT 22 U/L (14-59); AST 18 U/L (15-37); Albumin 3.4 g/dL (3.4-5.0); Alkaline Phosphatase 113 U/L (46-116); BUN 44 mg/dL (7-18); Bilirubin, Total 0.54 mg/dL (0.2-1.0); CREATININE 1.9 mg/dL (0.55-1.02); Calcium 9.4 mg/dL (8.5-10.1); Chloride 94 mmol/L (98-107); Estimated GFR 26.53 (mL/min/1.73m2); Glucose 322 mg/dL (74-106); Lipase 13 U/L (16-77); Magnesium 1.9 mg/dL (1.8-2.4); Potassium 4.1 mmol/L (3.5-5.1); Sodium 128 mmol/L (136-145)
[2023-12-11] MEDS: Normal Saline 1,000 ML 1000 ML IV (19:48)
[2023-12-11 19:56] LABS: Procalcitonin 3.8 ng/mL
--- NOTE | 2023-12-11 20:56 | HPE_ITS ---
Date of service: 12/11/23 Time of Service: 21:33 Assessment and Plan Assessment and plan (1) Accidental overdose of insulin: Status: Acute Assessment and plan: - Patient being admitted for concern of accidental overdose of insulin -While her insulin pump is working on his usual 1 unit/h, she states that she has been having blood sugars in the 500s over the last few days, prompting her to take 20 units of subcu Lantus at 5 PM prior to arrival to the emergency department which is normally reserved for when her insulin pump is not working -Upon arrival to the emergency department her blood sugar level was 322 and subsequently decreased to the low 200s, increased concern for potential development of hypoglycemia overnight -Will continue insulin pump at this time, as it is still possible that additional subcu Lantus and resulting decrease in blood sugar is appropriate reaction to appropriate dose -However, given the concern for potential hypoglycemia, will check [id number] blood sugar every 3 hours, and either give additional glucose/discontinue insulin pump (2) Essential hypertension: Status: Acute Assessment and plan: - (3) 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: Status: Acute Assessment and plan: - As noted above (4) Coronary artery disease: Assessment and plan: - Continue home daily aspirin, 40 mg atorvastatin, 40 mg valsartan, (5) GERD (gastroesophageal reflux disease): Status: Chronic Assessment and plan: - Continue home PPI History of Present Illness History of Present Illness Chief Complaint: hyperglycemia Narrative: 78-year-old female with past medical history of type 1 diabetes on insulin pump, hypertension, GERD, coronary artery disease status post CABG who presents to the emergency department with a chief complaint of elevated blood sugars over the last 3 days. Patient states that over the last few days she has felt nauseous, crummy, and weak, noting that her a.m. blood sugars have been in the 500s when she is historically very well controlled with her diabetes. She is on an insulin pump and runs about 1 unit/h, but given that she had persistently elevated blood sugars at home she took 28 units of Lantus at around 1700 today which is normally reserved for when her subcutaneous pump is not working. She denies any headache, lightheadedness, dizziness, chest pain, did complain of nausea but has since resolved. CBC unremarkable, CMP showed an initial blood glucose in the emergency department of 322 without anion gap, and VBG showed normal pH alleviating concerns for DKA. She did have mildly elevated lactic of 2.0, while she had an elevated procalcitonin given normal white blood cell count, afebrile, no symptoms to suggest an acute infection no antibiotics were initiated. Patient was given 500 mL bolus in the emergency department. However, after joint discussion with hospitalist decision was made for patient to be observed overnight for concerns of developing hypoglycemia. Review of Systems All systems reviewed & are unremarkable except as noted in HPI and below 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 (Acute) Contusion of left great toe with damage to nail (Acute) Cellulitis (Acute) Dystrophia unguium (Acute) Asymmetrical sensorineural hearing loss (Acute) S/P LORETTA-BSO (Acute) Insomnia (Acute) Renal insufficiency (Chronic) CTS (carpal tunnel syndrome) (Acute) Ventricular arrhythmia (Acute) Spinal stenosis, lumbar (Acute) spinal fusion L4/5 Degenerative joint disease of spine (Acute) Loss of balance (Acute) GERD (gastroesophageal reflux disease) (Chronic) Osteoarthritis of fingers of both hands (Acute) Actinic keratoses (Acute) Urinary incontinence (Acute) with recurrent UTIs ICD (implantable cardioverter-defibrillator) in place (Acute 11/13/15) [employer] John II VR, single lead [id number], [facility] [place] 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) History of sudden cardiac arrest (06/21/09) Surgical History S/P CABG (coronary artery bypass graft) (11/13/15) History of cataract surgery Hx of cholecystectomy H/O breast biopsy History of bilateral salpingo-oophorectomy (BSO) History of total abdominal hysterectomy Family History Father Heart disease Hypertension Mother Diabetes Heart disease Hypertension Social History Smoking/Tobacco Use Status: Former Tobacco Use Smoking risk assessment performed?: Yes Alcohol Intake: current Alcohol Intake frequency: holidays/special occasions only Alcohol type: wine Drug use: Never Household members: none Housing: house What is your relationship status?: Panel score (0-1 are the most socially isolated patients): 0 Do you feel safe at home: Yes Do you feel safe in your relationship?: Yes Meds Allergies and Home Medications Allergies Allergy/AdvReac Type Severity Reaction Status Date / Time alendronate sodium (From Allergy Severe chest pain Verified 12/11/23 18:35 Fosamax) ezetimibe (From Zetia) Allergy Severe Anaphylaxsi Verified 12/11/23 18:35 s lisinopril (From Zestril) Allergy Severe angioedema Verified 12/11/23 18:35 amiodarone Allergy Mild Skin Rash Verified 12/11/23 18:35 amoxicillin Allergy Other (See Verified 12/11/23 18:35 Comment) iodine Allergy Keller skin Verified 12/11/23 18:35 nitrofurantoin (From Allergy Other (See Verified 12/11/23 18:35 Macrobid) Comment) oxycodone Allergy Other (See Verified 12/11/23 18:35 Comment) propoxyphene (From Allergy Other (See Verified 12/11/23 18:35 Darvocet-N) Comment) pravastatin sodium (From AdvReac Severe dizziness Verified 12/11/23 18:35 Pravachol) celecoxib (From Celebrex) AdvReac Intermediate n/v/d Verified 12/11/23 18:35 gabapentin (From Neurontin) AdvReac Intermediate n/v/d Verified 12/11/23 18:35 simvastatin (From Zocor) AdvReac Intermediate mylagia Verified 12/11/23 18:35 povidone-iodine (From AdvReac Mild Skin Rash Verified 12/11/23 18:35 Betadine) codeine (Codeine) AdvReac n/v/d Verified 12/11/23 18:35 ibandronate sodium (From AdvReac joint pain Verified 12/11/23 18:35 Boniva) propoxyphene napsylate (From AdvReac n/v/d Verified 12/11/23 18:35 Darvocet-N 100) kiwi Allergy Severe Anaphylaxsi Uncoded 12/11/23 18:35 s Ivory Soap Allergy Itching Uncoded 12/11/23 18:35 adhesive tape AdvReac Skin Rash Uncoded 12/11/23 18:35 Home Medications ?Medication ?Instructions ?Recorded ?Confirmed ?Type insulin aspart U-100 100 unit/mL 100 unit SQ DAILY 08/28/12 12/11/23 History subcutaneous cartridge (Novolog PenFill U-100 Insulin aspart) atorvastatin 20 mg tablet (Lipitor) 40 mg PO DAILY 10/18/12 12/11/23 History insulin glargine 100 unit/mL 28 units SQ DAILY PRN insulin pump 10/18/12 12/11/23 History subcutaneous solution (Lantus failure U-100 Insulin) cranberry extract 250 mg capsule 250 mg PO DAILY 11/05/20 12/11/23 History glucagon 1 mg/0.2 mL subcutaneous 1 mg subcut ONCE 11/05/20 12/11/23 History auto-injector vitamin B complex (B 1 tab PO DAILY 11/25/21 12/11/23 History Complex-Vitamin B12 tablet) esomeprazole magnesium 40 mg 40 mg PO DAILY 12/30/21 12/11/23 History capsule,delayed release pyridoxine (vitamin B6) 100 mg 200 mg PO DAILY 04/29/22 12/11/23 History tablet sucralfate 1 gram tablet (Carafate) 1 g PO QACHS 04/29/22 12/11/23 History insulin regular human 100 unit/mL See Rx Instructions subcut 05/09/22 12/11/23 History injection solution (Novolin R USEASDIRECTD Regular U-100 Insulin) meclizine 25 mg tablet 25 mg PO .Q6hrs PRN 05/09/22 12/11/23 History valsartan 40 mg tablet 40 mg PO .COMPLEX PRN 05/10/22 12/11/23 History cholecalciferol (vitamin D3) 50 5,000 unit PO DAILY 10/21/22 12/11/23 History mcg (2,000 unit) tablet (Vitamin D3) acetaminophen 500 mg tablet 1,000 mg (2 x 500 mg) PO Q8H #180 05/25/23 12/11/23 Rx tabs aspirin 81 mg tablet,delayed 81 mg PO DAILY 07/20/23 12/11/23 History release duloxetine 40 mg capsule,delayed 40 mg PO DAILY 08/17/23 12/11/23 History release Exam Narrative Exam Narrative: well appearing female laying in bed in no acute distress, AOx4, heart RRR, lungs CTAB, abddomen soft, non-tender, non-distended Results Labs 12/12/23 06:10 12/11/23 18:43 Labs: Laboratory Results - last 24 hr 12/11/23 12/11/23 18:43 19:06 WBC 12.69 H RBC 3.74 L Hgb 10.0 L Hct 31.1 L MCV 83 MCH 26.7 L MCHC 32.2 RDW 14.9 H Plt Count 251 MPV 9.9 Immature Gran % 0.6 Neutrophils % 84.5 Lymphocytes % 9.5 Monocytes % 5.2 Eosinophils % 0.0 Basophils % 0.2 Nucleated RBC % 0.0 Absolute Neutrophils 10.72 H Absolute Lymphocytes 1.21 Absolute Monocytes 0.66 Absolute Eosinophils 0.00 Absolute Basophils 0.03 VBG pH 7.34 VBG pCO2 45 VBG pO2 31 VBG HCO3 25 VBG Total CO2 23 L VBG O2 Saturation 58 VBG Base Excess -1 VBG Lactate 2.0 H Sodium 128 L Potassium 4.1 Chloride 94 L Carbon Dioxide 25.0 Anion Gap 9.0 BUN 44 H Creatinine 1.9 H Est GFR (CKD-EPI 2020) 26.53 Glucose 322 H Calcium 9.4 Magnesium 1.9 Total Bilirubin 0.54 AST 18 ALT 22 Alkaline Phosphatase 113 Total Protein 7.0 Albumin 3.4 Lipase 13 L Procalcitonin 3.8 Last Vital Signs Temp 98.2 F 12/11/23 18:37 Pulse 94 H 12/11/23 18:37 Resp 16 12/11/23 18:37 Pulse Ox 100 12/11/23 18:37 Time Spent Time spent with Patient: >75 minutes Time was spent: preparing to see the patient(eg.review tests), obtaining and/or reviewing separately otained hiistory, ordering medications,tests, procedures, referring, communicating with other health childcare aide, indepentently interpreting results, counseling the patient and care coordination
--- NOTE | 2023-12-11 22:04 | W.PC.ACHO ---
Registration Status: Primary Language: Preferred Language: ED Information & Data Chief Complaint Nausea/Vomit/Diar 12/11/23 19:03 Triage Note pt with DM1 recent uti 12/11/23 18:37 finished abx, elevated bg over 500 for 3 days, emesis today, nonfever/chills, no nausea on arrival, iv by ems , alert and oriented. Medical / Surgical History (Last Reviewed 08/23/23 @ 09:30 by Domenico Perez MD) Coronary artery disease Diabetes Closed hip fracture Hyperlipemia Mass of parotid gland CAD (coronary artery disease) (11/13/15) HTN (hypertension) History of tobacco use Abnormal mammogram of right breast History of sudden cardiac arrest (11/13/15) Mass of right parotid gland History of pneumothorax S/P CABG (coronary artery bypass graft) (06/26/09) History of sudden cardiac arrest (06/21/09) (Last Reviewed 08/23/23 @ 09:30 by Domenico Perez MD) S/P CABG (coronary artery bypass graft) (11/13/15) History of cataract surgery Hx of cholecystectomy H/O breast biopsy History of bilateral salpingo-oophorectomy (BSO) History of total abdominal hysterectomy Most Recent Vital Signs Temperature 36.8 C 12/11/23 18:37 Temperature Source Oral 12/11/23 18:37 Pulse 83 12/11/23 21:00 Pulse 88 12/11/23 21:10 Respiratory Rate 24 12/11/23 21:10 Respiratory Effort Normal, Non-Labored 12/11/23 18:41 Blood Pressure 158/46 H 12/11/23 21:00 Blood Pressure Mean 87 12/11/23 21:00 Blood Pressure Position Sitting 12/11/23 18:37 Pulse Oximetry 96 12/11/23 21:01 Oxygen Delivery Method Room Air 12/11/23 18:37 Oxygen Flow Rate 0 12/11/23 18:37 Pain Level 0 12/11/23 18:37 Allergies alendronate sodium (From Fosamax) Allergy (Severe, Verified 12/11/23 18:35) chest pain ezetimibe (From Zetia) Allergy (Severe, Verified 12/11/23 18:35) Anaphylaxsis lisinopril (From Zestril) Allergy (Severe, Verified 12/11/23 18:35) angioedema amiodarone Allergy (Mild, Verified 12/11/23 18:35) Skin Rash amoxicillin Allergy (Verified 12/11/23 18:35) Other (See Comment) unk iodine Allergy (Verified 12/11/23 18:35) Keller skin nitrofurantoin (From Macrobid) Allergy (Verified 12/11/23 18:35) Other (See Comment) unk oxycodone Allergy (Verified 12/11/23 18:35) Other (See Comment) unk propoxyphene (From Darvocet-N) Allergy (Verified 12/11/23 18:35) Other (See Comment) unk pravastatin sodium (From Pravachol) Adverse Reaction (Severe, Verified 12/11/23 18:35) dizziness celecoxib (From Celebrex) Adverse Reaction (Intermediate, Verified 12/11/23 18:35) n/v/d gabapentin (From Neurontin) Adverse Reaction (Intermediate, Verified 12/11/23 18:35) n/v/d simvastatin (From Zocor) Adverse Reaction (Intermediate, Verified 12/11/23 18:35) mylagia povidone-iodine (From Betadine) Adverse Reaction (Mild, Verified 12/11/23 18:35) Skin Rash codeine (Codeine) Adverse Reaction (Verified 12/11/23 18:35) n/v/d ibandronate sodium (From Boniva) Adverse Reaction (Verified 12/11/23 18:35) joint pain propoxyphene napsylate (From Darvocet-N 100) Adverse Reaction (Verified 12/11/23 18:35) n/v/d kiwi Allergy (Severe, Uncoded 12/11/23 18:35) Anaphylaxsis Ivory Soap Allergy (Uncoded 12/11/23 18:35) Itching adhesive tape Adverse Reaction (Uncoded 12/11/23 18:35) Skin Rash Precautions Isolation Standard precaution 12/11/23 18:41 IV IV Catheter Type [Right Saline Lock Antecubital] IV Catheter Gauge [Right 20 Antecubital] Diagnostics 12/11/23 12/11/23 Range/Units 19:06 18:43 WBC 12.69 H (4.4-10.8) 10^3/uL RBC 3.74 L (3.93-5.22) 10^6/uL Hgb 10.0 L (11.2-15.7) g/dL Hct 31.1 L (36.0-46.0) % MCV 83 (80-95) fL MCH 26.7 L (27.0-33.0) pg MCHC 32.2 (32.0-36.0) % RDW 14.9 H (11.7-14.6) % Plt Count 251 (130-400) 10^3/uL MPV 9.9 (8.0-11.0) fL Immature Gran % 0.6 % Neutrophils % 84.5 % Lymphocytes % 9.5 % Monocytes % 5.2 % Eosinophils % 0.0 % Basophils % 0.2 % Nucleated RBC % 0.0 (0.0-0.3) % Absolute Neutrophils 10.72 H (1.2-6.7) 10^3/uL Absolute Lymphocytes 1.21 (1.2-3.4) 10^3/uL Absolute Monocytes 0.66 (0.1-0.8) 10^3/uL Absolute Eosinophils 0.00 (0.0-0.7) 10^3/uL Absolute Basophils 0.03 (0.0-0.2) 10^3/uL VBG pH 7.34 (7.31-7.41) VBG pCO2 45 (41-51) mmHg VBG pO2 31 mmHg VBG HCO3 25 (23-28) mmol/L VBG Total CO2 23 L (24-29) mmol/L VBG O2 Saturation 58 % VBG Base Excess -1 (-2-3) mmol/L VBG Lactate 2.0 H (0.6-1.4) mmol/L Sodium 128 L (136-145) mmol/L Potassium 4.1 (3.5-5.1) mmol/L Chloride 94 L (98-107) mmol/L Carbon Dioxide 25.0 (21.0-32.0) mmol/L Anion Gap 9.0 (3-11) mmol/L BUN 44 H (7-18) mg/dL Creatinine 1.9 H (0.55-1.02) mg/dL Est GFR (CKD-EPI 2020) 26.53 (mL/min/1.73m2) Glucose 322 H (74-106) mg/dL Calcium 9.4 (8.5-10.1) mg/dL Magnesium 1.9 (1.8-2.4) mg/dL Total Bilirubin 0.54 (0.2-1.0) mg/dL AST 18 (15-37) U/L ALT 22 (14-59) U/L Alkaline Phosphatase 113 (46-116) U/L Total Protein 7.0 (6.4-8.2) g/dL Albumin 3.4 (3.4-5.0) g/dL Lipase 13 L (16-77) U/L Procalcitonin 3.8 ng/mL [id number] Documentation Fingerstick Glucose Start: 12/11/23 18:40 Freq: Status: Active Protocol: Activity Type Activity Date Activity User E-sign Co-sign Detail Recorded Client Recorded Date Recorded By Document 12/11/23 18:36 BKG DAEMON(3) [id number] 12/11/23 18:40 BKG DAEMON(4) Intake and Output - 24 Hour Total 12/11/23 18:23 thru 12/11/23 21:01 Intake Total 1000 Balance 1000 Weight 72.575 kg Intake: IV 1000 Other: Emesis Description None Falls Risk Assessment History of Falls Previous History 12/11/23 18:48 Ambulatory Aids Independent 12/11/23 18:48 Tubes/Lines W/no contributing factors 12/11/23 18:48 Gait Evaluation No gait disturbance 12/11/23 18:48 Cognition No cognitive impairment 12/11/23 18:48 Fall Total Score 25 12/11/23 18:48 Level of Risk Moderate Risk 12/11/23 18:48 Problems (Last Reviewed 08/23/23 @ 09:30 by Domenico Perez MD) Accidental overdose of insulin (Acute) GERD (gastroesophageal reflux disease) (Chronic) 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 Information / Comments: Insulin pump is turned off, last blood sugar was 191; family member brought food in for pt and pt tolerating well, no nausea or vomiting. Report received from:MICHEL Urban RN
[2023-12-11 23:05] LABS: Bilirubin Moderate (Negative); Blood Negative (Negative); Clarity Clear (Clear); Glucose 500 mg/dL (Negative); Ketones 15 mg/dL (Negative); Leukocyte Esterase Small (Negative); Nitrite Negative (Negative); Specific Gravity 1.025 (1.005-1.025); Urobilinogen 0.2 mg/dL (Up to 0.2); pH 5.5 (5-8)
[2023-12-11 23:14] LABS: Bacteria Few HPF (Negative); C & S Indicated? Yes; Casts 0-2 Hyaline LPF (Negative); Crystals Negative HPF (Negative); Epithelial Cells Few HPF (Negative); Mucus Moderate (Negative); RBC 0-2 HPF (0-2)
[2023-12-12 02:02] VITALS: BP 121/49; PULSE 79; RESP 16; TEMP 37; O2SAT 94
[2023-12-12 06:43] LABS: HCT 28.8 % (36.0-46.0); HGB 9.5 g/dL (11.2-15.7); MCV 82 fL (80-95); MPV 10.4 fL (8.0-11.0); Platelet Count 209 10^3/uL (130-400); RBC 3.52 10^6/uL (3.93-5.22); RDW 15.2 % (11.7-14.6); RDW-SD 44.5 fL; WBC 12.82 10^3/uL (4.4-10.8)
[2023-12-12 07:07] LABS: Anion Gap 7.9 mmol/L (3-11); BUN 44 mg/dL (7-18); CO2 25.1 mmol/L (21.0-32.0); CREATININE 1.6 mg/dL (0.55-1.02); Chloride 99 mmol/L (98-107); Glucose 148 mg/dL (74-106); Magnesium 1.9 mg/dL (1.8-2.4); Potassium 3.5 mmol/L (3.5-5.1); Sodium 132 mmol/L (136-145)
[2023-12-12 07:12] LABS: Calcium 9.1 mg/dL (8.5-10.1)
[2023-12-12 07:18] VITALS: BP 140/56; PULSE 75; RESP 16; TEMP 37.1; O2SAT 94
[2023-12-12] MEDS: Aspirin E.C. 81 MG TABEC PO (08:05)
[2023-12-12] MEDS: Normal Saline Flush 10 ML SYR IVP ×3 (08:06→20:16)
[2023-12-12] MEDS: DULoxetine 20 MG CAP 40 MG PO (08:06)
[2023-12-12] MEDS: Esomeprazole 40 MG CAPCR PO (08:06)
[2023-12-12] MEDS: Acetaminophen 325 MG TAB PO (10:30)
[2023-12-12 11:26] VITALS: BP 189/69; PULSE 85; RESP 16; TEMP 36.8; O2SAT 95
[2023-12-12] MEDS: Valsartan 40 MG TAB PO (12:01)
--- NOTE | 2023-12-12 12:03 | W.PM.PROGNOT ---
Date of Service Date of service: 12/12/23 Time of Service: 12:04 Assessment and Plan Assessment and plan (1) Hyperglycemia: Status: Acute Assessment and plan: secondary to uti, begin Rocephin 1 gm iv daily pending her urine cultures. continue supplement of her insulin pump w/ Lantus. I gave her 14 units this morning. She took 28 units and her glucose got too low this morning. she is now back on her insulin at 1.2 units per hour. She was scheduled to go down to 1.05 units at noon and 1 unit/hr at 5 pm. I told her to stay on the 1.2 units per hour and if her glucose continues to go up then I will have her increase her to 1.5 units and give her additional longer acting insulin, possibly add carb coverage to her insulin regimen. 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 transplanted heart: [place] heart Associated angina: without angina Qualified Code(s): I25.10 - Atherosclerotic heart disease of [place] coronary artery without angina pectoris (5) GERD (gastroesophageal reflux disease): Status: Chronic Assessment and plan: - Continue home PPI Qualifiers: Esophagitis presence: without esophagitis Qualified Code(s): K21.9 - Gastro-esophageal reflux disease without esophagitis Subjective Subjective Interval history since last seen: 78 yr old female w/ hx of type I DM well controlled (last a1c 6.7% as of 09/14/23) who presented w/ rising glucose >500 mg/dL (too high for her meter or her CGM to read). She normally is controlled on her insulin pump. However she had recent UTI and reportedly has finished the last of her oral antibiotic on the day of her admission. When her glucose was not coming down at home while on her insulin pump she took 28 units of Lantus last night and overnight her glucose came down to 148 (lab drawn at 06:10 am,165 mg/dL per fingerstick at 07:17 am, although she got as low as 102 mg/dL at 04:25 am) She was as high as 322 mg/dL per labs on arrival last night. She was not in DKA (AG 9, HCO3 25, UA w/ trace of ketones. However her UA did suggest an ongoing UTI w/ small leukocyte esterase, 10-20 WBC/HPF, and a few bacteria, moderate mucus and few epithelial cells. WBC were also elevated at 12,690 and remain elevated at 12,820 and her procalcitonin is up at 3.8. She is afebrile but has dysuria. I have told her that we will put her on Rocephin 1 gm iv while awaiting her culture results. She is now back on her insulin pump but I have given her another dose of Lantus this morning to smooth the transition as her glucose has risen over 300 mg/dL this morning. Exam Narrative Exam Narrative: Liane is sitting up in her chair visiting w/ her family. she is eating lunch Lungs: clear Heart: RRR, no murmur or rub Abdomen: soft, nontender Objective Last Vital Signs Temp 36.8 C 12/12/23 11:26 Pulse 85 12/12/23 11:26 Resp 16 12/12/23 11:26 BP 189/69 H 12/12/23 11:26 Pulse Ox 95 12/12/23 11:26 Laboratory Results - last 24 hr 12/11/23 12/11/23 12/11/23 18:43 19:06 22:35 WBC 12.69 H RBC 3.74 L Hgb 10.0 L Hct 31.1 L MCV 83 MCH 26.7 L MCHC 32.2 RDW 14.9 H Plt Count 251 MPV 9.9 Immature Gran % 0.6 Neutrophils % 84.5 Lymphocytes % 9.5 Monocytes % 5.2 Eosinophils % 0.0 Basophils % 0.2 Nucleated RBC % 0.0 Absolute Neutrophils 10.72 H Absolute Lymphocytes 1.21 Absolute Monocytes 0.66 Absolute Eosinophils 0.00 Absolute Basophils 0.03 VBG pH 7.34 VBG pCO2 45 VBG pO2 31 VBG HCO3 25 VBG Total CO2 23 L VBG O2 Saturation 58 VBG Base Excess -1 VBG Lactate 2.0 H Sodium 128 L Potassium 4.1 Chloride 94 L Carbon Dioxide 25.0 Anion Gap 9.0 BUN 44 H Creatinine 1.9 H Est GFR (CKD-EPI 2020) 26.53 Glucose 322 H Calcium 9.4 Magnesium 1.9 Total Bilirubin 0.54 AST 18 ALT 22 Alkaline Phosphatase 113 Total Protein 7.0 Albumin 3.4 Lipase 13 L Procalcitonin 3.8 Urine Color Yellow Urine Clarity Clear Urine pH 5.5 Ur Specific [place] 1.025 Urine Protein Negative Urine Ketones 15 H Urine Blood Negative Urine Nitrite Negative Urine Bilirubin Moderate H Urine Urobilinogen 0.2 Ur Leukocyte Esterase Small H Urine RBC 0-2 Urine WBC 10-20 H Ur Epithelial Cells Few Urine Crystals Negative Urine Bacteria Few Urine Casts 0-2 Hyaline Urine Mucus Moderate Ur Culture Indicated? Yes Urine Glucose 500 H 12/12/23 06:10 WBC 12.82 H RBC 3.52 L Hgb 9.5 L Hct 28.8 L MCV 82 MCH 27.0 MCHC 33.0 RDW 15.2 H Plt Count 209 MPV 10.4 Immature Gran % Neutrophils % Lymphocytes % Monocytes % Eosinophils % Basophils % Nucleated RBC % Absolute Neutrophils Absolute Lymphocytes Absolute Monocytes Absolute Eosinophils Absolute Basophils VBG pH VBG pCO2 VBG pO2 VBG HCO3 VBG Total CO2 VBG O2 Saturation VBG Base Excess VBG Lactate Sodium 132 L Potassium 3.5 Chloride 99 Carbon Dioxide 25.1 Anion Gap 7.9 BUN 44 H Creatinine 1.6 H Est GFR (CKD-EPI 2020) 32.60 Glucose 148 H Calcium 9.1 Magnesium 1.9 Total Bilirubin AST ALT Alkaline Phosphatase Total Protein Albumin Lipase Procalcitonin Urine Color Urine Clarity Urine pH Ur Specific [place] Urine Protein Urine Ketones Urine Blood Urine Nitrite Urine Bilirubin Urine Urobilinogen Ur Leukocyte Esterase Urine RBC Urine WBC Ur Epithelial Cells Urine Crystals Urine Bacteria Urine Casts Urine Mucus Ur Culture Indicated? Urine Glucose Time Spent with Patient Time Spent with Patient: 25-34 minutes Time was spent: preparing to see the patient(eg.review tests), ordering medications,tests, procedures, referring, communicating with other health pediatric critical care nurse, indepentently interpreting results, counseling the patient and care coordination
[2023-12-12] MEDS: cefTRIAXone 1 GM/50 ML BAG IVPB (13:02)
--- NOTE | 2023-12-12 13:16 | INITIAL_ITS ---
Date of service: 12/12/23 Time of Service: 13:16 Care Management Initial Assmt Initial Assessment Reason for Hospitalization: hyperglycemia Functional Status/Living Situation Patient Presentation: Liane was sitting up in her chair eating lunch and visiting with her . She shared that although they are still , they live in separate homes, which works well for them. Liane stated that she just spoke with MD, and they discussed her remaining overnight for further observation, as her blood sugars have not stabilized. She stated that although she is looking forward to returnin home, she is ok with staying, as she wants to do what is best for her health. She reported that she is very active and independent, and has been working up until recently at [employer], and she is looking for another job at this time. She does not anticipate the need for any services upon discharge. CM will continue to follow. Town of Residence: [place] Resides with: Alone Significant Other/Family: Local Natural Supports: , Jose (do not live together, but are very supportive of each other) Daughter, Laura, lives in [place] Employment Status: Unemployed (currently looking for employment) Activities/Hobbies/SocialSupport: Liane likes to stay busy Medications Medication Management: No Issues/Barriers identified Advance Directives Advance Directives: Do you have an Advance Directive: N 11/17/20 09:52 AD On File at [facility]: N 11/17/20 09:52 Date Asked 12/11/23 12/11/23 19:04 AD Date Reviewed COLST On File at [facility] COLST Date Scanned Code Status Resuscitation Status Full Code Insurance Coverage/Financial Issues Insurance: [facility]/ Care Team Visit Care Team Role Provider Type Vinayak Downs MD Primary Care Provider NON-[facility] STAFF PHYSICIAN LAURA Lerma Emergency Provider [facility] Daniel Mauricio MD Admit Provider [facility] STAFF PHYSICIAN Attending Provider Discharge Potential Discharge Needs: PCP F/U Appt Anticipated Barriers to Discharge: None Identified Patient/Family Education Needs: Review discharge instructions, discuss Ask Me Three Transportation: Private vehicle Plan: Liane will return home once medically cleared with no anticipated services. Her will drive her home via private vehicle when ready. She will follow up with her PCP and discharge plan of care. CM will continue to follow. 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 (Acute) Contusion of left great toe with damage to nail (Acute) Cellulitis (Acute) Dystrophia unguium (Acute) Asymmetrical sensorineural hearing loss (Acute) S/P L[place]ET[place]-BSO (Acute) Insomnia (Acute) Renal insufficiency (Chronic) CTS (carpal tunnel syndrome) (Acute) Ventricular arrhythmia (Acute) Spinal stenosis, lumbar (Acute) spinal fusion L4/5 Degenerative joint disease of spine (Acute) Loss of balance (Acute) GERD (gastroesophageal reflux disease) (Chronic) Osteoarthritis of fingers of both hands (Acute) Actinic keratoses (Acute) Urinary incontinence (Acute) with recurrent UTIs ICD (implantable cardioverter-defibrillator) in place (Acute 11/13/15) [employer], single lead [id number], [facility] [place] 07/01/2009 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) History of sudden cardiac arrest (06/21/09) Surgical History S/P CABG (coronary artery bypass graft) (11/13/15) History of cataract surgery Hx of cholecystectomy H/O breast biopsy History of bilateral salpingo-oophorectomy (BSO) History of total abdominal hysterectomy Family History Father Heart disease Hypertension Mother Diabetes Heart disease Hypertension Social History Smoking/Tobacco Use Status: Former Tobacco Use Smoking risk assessment performed?: Yes Alcohol Intake: current Alcohol Intake frequency: holidays/special occasions only Alcohol type: wine Drug use: Never Household members: none Housing: house What is your relationship status?: Panel score (0-1 are the most socially isolated patients): 0 Do you feel safe at home: Yes Do you feel safe in your relationship?: Yes SDOH(Care Management) Screening Will the Patient Participate in the Screening?: Yes Do you worry about having a steady place to live?: no Problems where you live: no known problems In the past 12 months, have you had to go without electric, gas, oil or water in your home?: no Have you or anyone in your house had to go without enough food to eat?: no Has lack of transportation kept you from medical appointments or from doing things needed for daily living?: no Has anyone in your support network made you feel unsafe for any reason?: no
--- NOTE | 2023-12-12 13:33 | PHA.REVIEW2 ---
Pharmacy Admission Review Admission Clinical Review Admission Pharmacy Review: Accidental overdose of insulin (Acute) 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 (Acute 11/13/15) Essential hypertension (Acute 11/13/15) alendronate sodium (From Fosamax) Allergy (Severe, Verified 12/11/23 18:35) chest pain ezetimibe (From Zetia) Allergy (Severe, Verified 12/11/23 18:35) Anaphylaxsis lisinopril (From Zestril) Allergy (Severe, Verified 12/11/23 18:35) angioedema amiodarone Allergy (Mild, Verified 12/11/23 18:35) Skin Rash amoxicillin Allergy (Verified 12/11/23 18:35) Other (See Comment) iodine Allergy (Verified 12/11/23 18:35) Keller skin nitrofurantoin (From Macrobid) Allergy (Verified 12/11/23 18:35) Other (See Comment) oxycodone Allergy (Verified 12/11/23 18:35) Other (See Comment) propoxyphene (From Darvocet-N) Allergy (Verified 12/11/23 18:35) Other (See Comment) pravastatin sodium (From Pravachol) Adverse Reaction (Severe, Verified 12/11/23 18:35) dizziness celecoxib (From Celebrex) Adverse Reaction (Intermediate, Verified 12/11/23 18:35) n/v/d gabapentin (From Neurontin) Adverse Reaction (Intermediate, Verified 12/11/23 18:35) n/v/d simvastatin (From Zocor) Adverse Reaction (Intermediate, Verified 12/11/23 18:35) mylagia povidone-iodine (From Betadine) Adverse Reaction (Mild, Verified 12/11/23 18:35) Skin Rash codeine (Codeine) Adverse Reaction (Verified 12/11/23 18:35) n/v/d ibandronate sodium (From Boniva) Adverse Reaction (Verified 12/11/23 18:35) joint pain propoxyphene napsylate (From Darvocet-N 100) Adverse Reaction (Verified 12/11/23 18:35) n/v/d kiwi Allergy (Severe, Uncoded 12/11/23 18:35) Anaphylaxsis Ivory Soap Allergy (Uncoded 12/11/23 18:35) Itching adhesive tape Adverse Reaction (Uncoded 12/11/23 18:35) Skin Rash Resuscitation Status Full Code Height 5 ft 8 in Weight 74.843 kg Comments Comments/Follow Ups: Follow up with nursing regarding duloxetine dose if don't hear back Pharmacy Admission Review Renal Dosing Renal Dosing: BUN 44 mg/dL (7-18) H 12/12/23 06:10 Creatinine 1.6 mg/dL (0.55-1.02) H 12/12/23 06:10 Medications needing adjustments: Reviewed (CrCl 33.69 mL/min, SCr decreased from 1.9) List of meds needing interventions: Current medications are okay Anticoagulation Anticoagulation: Hgb 9.5 g/dL (11.2-15.7) L 12/12/23 06:10 Hct 28.8 % (36.0-46.0) L 12/12/23 06:10 Plt Count 209 10^3/uL (130-400) 12/12/23 06:10 Creatinine 1.6 mg/dL (0.55-1.02) H 12/12/23 06:10 DVT Prophylaxis: Intervened (None at this time, reached out to provider. Per provider, if patient is not discharged today then will put in order.) Relevant Labs Relevant Labs: Sodium 132 mmol/L (136-145) L 12/12/23 06:10 Potassium 3.5 mmol/L (3.5-5.1) 12/12/23 06:10 Chloride 99 mmol/L (98-107) 12/12/23 06:10 Magnesium 1.9 mg/dL (1.8-2.4) 12/12/23 06:10 Electrolytes, C-Reactive P, ESR: Reviewed (Na increased from 128) DM Control DM Control: Glucose 148 mg/dL (74-106) H 12/12/23 06:10 Finger Stick Blood Glucose 340 1249 Finger Stick Blood Glucose 340 1249 Finger Stick Blood Glucose 327 1134 Finger Stick Blood Glucose 327 1134 Finger Stick Blood Glucose 311 1008 Finger Stick Blood Glucose 311 1008 Finger Stick Blood Glucose 311 1000 Finger Stick Blood Glucose 165 0730 Finger Stick Blood Glucose 165 0717 Finger Stick Blood Glucose 165 0717 DM Control: Reviewed Insulin Dosing, Diabetic Medication: Patient has order pending for glargine 14 units at bedtime as well as patients own insulin pump. Waiting to hear back from provider before verifying glargine order - put order in as 14 units HS with now dose at 1210? Cardiac Review Cardiac Review: Blood Pressure 189/69 1126 Blood Pressure 140/56 0718 Blood Pressure 121/49 0202 BP, HR, EF%: Reviewed (HR WNL) List meds needing interventions: Patient takes valsartan 40mg three times a week QTc Review QTc: Reviewed (423 from 12/11/23) IV to PO Switch IV Medications: Reviewed (ceftriaxone) Home Meds Home Med List reviewed: Intervened Relevent Home Meds Not ordered & why?: Vitamin D3, cranberry, insulin aspart (has insulin pump), meclizine (PRN), vitamin B6, sucralfate and vitamin B complex Called nursing to confirm dose of duloxetine. On home med list it is 40mg daily but patient recently filled prescription for 20mg daily. Waiting to hear back. Reached out to provider as progress note stated to continue home valsartan but no order was put in. Provider then put order in. Current Meds Current Medication Order Review: Intervened Comments: Changed timing of esomeprazole from 0830 to 0730 per pharmacy protocol Pharmacy Antibiotic Review Relevant Labs: Relevant Labs 12/11/23 18:43 Procalcitonin 3.8 WBC 12.82 10^3/uL (4.4-10.8) H 12/12/23 06:10 Procalcitonin 3.8 ng/mL 12/11/23 18:43 Temperature 36.8 C Temperature 37.1 C Temperature 37 C Comments: Patient is on ceftriaxone, day 1, for possible UTI. WBC slightly increased from 12.69. Urine culture pending. Comments Comments/Follow Ups: Follow up with nursing regarding duloxetine dose if don't hear back
[2023-12-12] MEDS: Insulin Glargine 300 UNITS/3 ML PEN 14 UNITS SC (14:19)
--- NOTE | 2023-12-12 14:44 | W.NUTRFU ---
Date of service: 12/12/23 Time of Service: 14:00 Nutrition Note NOTE: Visited with Liane and family to see if any questions on diabtes mgt or concerns with nutrition status. Liane had elevated glucose for multiple days and gave herself basal insulin injection along with her usual insulin pump dosing. Was observation for nocturnal hypoglycemia but UTI was found and IV abx required. Kiwi allergy noted by patient states last A1C was 6.7% - been managing diabetes for >60 years. She has a good knowledge of management with diet and insulin administration at baseline and most likely experienced the concerning hyperglycemia due to her UTI infection. No significant education needs at this time and patient has no concerns regarding weight, intake, nutrition status. Time Spent in Nutritional Counseling and Treatment: 15 min
[2023-12-12 15:17] VITALS: BP 174/63; PULSE 76; RESP 16; TEMP 36.8; O2SAT 96
[2023-12-12] MEDS: Insulin NPH-Human 300 UNITS/3 ML PEN 20 UNIT SC (16:42)
[2023-12-12] MEDS: Insulin Aspart 300 UNITS/3 ML PEN SC (18:00)
[2023-12-12 19:42] VITALS: BP 166/66; PULSE 82; RESP 16; TEMP 36; O2SAT 97
[2023-12-12] MEDS: Atorvastatin 20 MG TAB 40 MG PO (20:15)
[2023-12-12] MEDS: Insulin Glargine 300 UNITS/3 ML PEN 10 UNITS SC (20:16)
[2023-12-12 23:21] VITALS: BP 161/67; PULSE 74; RESP 18; TEMP 36.5; O2SAT 92
[2023-12-13 03:08] VITALS: BP 130/50; PULSE 75; RESP 17; TEMP 36.2; O2SAT 98
[2023-12-13 06:16] LABS: Abs Immature Grans 0.02 10^3/uL (0.0-0.06); Absolute Basophil Count 0.04 10^3/uL (0.0-0.2); Absolute Eosinophil Count 0.41 10^3/uL (0.0-0.7); Absolute Lymphocyte Count 2.18 10^3/uL (1.2-3.4); Absolute Monocyte Count 0.53 10^3/uL (0.1-0.8); Absolute Neutrophil Count 4.52 10^3/uL (1.2-6.7); Basophils % 0.5 %; Eosinophils % 5.3 %; HCT 30.8 % (36.0-46.0); HGB 9.9 g/dL (11.2-15.7); Immature Grans % 0.3 %; Lymphocytes % 28.3 %; MCH 26.7 pg (27.0-33.0); MCHC 32.1 % (32.0-36.0); MCV 83 fL (80-95); MPV 10.7 fL (8.0-11.0); Monocytes % 6.9 %; Neutrophils % 58.7 %; Platelet Count 194 10^3/uL (130-400); RBC 3.71 10^6/uL (3.93-5.22); RDW 15.1 % (11.7-14.6); RDW-SD 45.1 fL
[2023-12-13 06:47] LABS: Anion Gap 7.4 mmol/L (3-11); BUN 30 mg/dL (7-18); CO2 28.6 mmol/L (21.0-32.0); CREATININE 1.3 mg/dL (0.55-1.02); Calcium 9.2 mg/dL (8.5-10.1); Chloride 102 mmol/L (98-107); Estimated GFR 41.83 (mL/min/1.73m2); Glucose 92 mg/dL (74-106); Potassium 3.9 mmol/L (3.5-5.1); Sodium 138 mmol/L (136-145)
[2023-12-13 07:18] VITALS: BP 148/57; PULSE 82; RESP 18; TEMP 36.8; O2SAT 97
[2023-12-13] MEDS: Enoxaparin 40 MG/0.4 ML SYR SC (07:39)
[2023-12-13] MEDS: Normal Saline Flush 10 ML SYR IVP ×2 (07:39→11:40)
[2023-12-13] MEDS: Esomeprazole 40 MG CAPCR PO (07:40)
[2023-12-13] MEDS: Aspirin E.C. 81 MG TABEC PO (07:41)
[2023-12-13] MEDS: DULoxetine 20 MG CAP 40 MG PO (07:41)
[2023-12-13 08:50] LABS: Ferritin 28 ng/mL (8-252); Folate 9.9 ng/mL (8.6-20.0); Vitamin B12 > 2000 pg/mL (193-986)
[2023-12-13 09:11] LABS: Iron 19 ug/dL (50-170); Total Iron Binding Capacity 291 ug/dL (250-450); Transferrin Sat 7 % (15-50)
--- NOTE | 2023-12-13 11:23 | DSE_ITS ---
Date of service: 12/13/23 Time of Service: 11:24 DS: Diagnosis Discharge Diagnosis (1) Hypoglycemia due to insulin: Status: Acute Asessment and Plan: Initially presented with hyperglycemia blood sugars greater than 500 at home glucose readings were unreadable on her glucometer. On arrival to the emergency department blood sugar readings were in the 300s per lab draw. However patient already treated herself with extra Lantus 28 units and her blood sugars are already on the way down she was monitored overnight found to have hypoglycemia. Her insulin pump was turned off and then the patient subsequently developed hyperglycemia the next day with blood sugars up in the 400s. Patient required additional intermediate long-acting insulin to bring her blood sugars down but then she had another hypoglycemic spell during the night from 12/11 to 12/13/2023 with blood sugars in the 70s. Her insulin pump was stopped and that her blood sugars came up on her own with additional oral carbohydrate supplementation. Patient's blood sugars are now running between 110-200 and she is back on her insulin pump. (2) UTI (urinary tract infection): Status: Acute Asessment and Plan: Greater than 100,000 colonies of mixed gram-positive vincent. Of note patient was symptomatic with dysuria and leukocytosis which is since resolved after initiation of ceftriaxone. Patient will be maintained on cefpodoxime 200 mg p.o. twice daily for 7 days. 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 This apparently has been a chronic issue and review of her outpatient labs going back to May 23, 2023 showed hemoglobin similar level of 10 g. Outpatient workup should be pursued including EGD and colonoscopy. B12 level and folate levels were checked and found to be normal however her serum iron is low at 19 and her ferritin is low at 28 with a transferrin saturation of 7% and a TIBC of 291. These findings are consistent with iron deficiency anemia. Patient be placed on iron supplementation however further evaluation should be performed as an outpatient to find the source of her anemia Discharge Plan Disposition Patient Disposition: Home Condition: Good Discharge Details Reason For Visit: Hypreglycemia Admit Date/Time: 12/11/23 20:56 Admit Provider: Daniel Mauricio Attending Provider: Daniel Mauricio Primary Care Provider: Vinayak Downs Hospital Course Hospital Course: This 78-year-old female with history of type 1 diabetes mellitus controlled with insulin pump presented to the emergency department with symptoms of hyperglycemia. Patient had recently been treated for UTI and just finished a 5- day course of Bactrim but was still having symptoms of dysuria and noted her blood sugars were over 500 at home. When her insulin pump failed to bring her blood sugars down she took 28 units of Lantus and then developed symptomatic hypoglycemia. She was admitted to hospital for observation while we adjusted her insulin and started her on treatment with antibiotics for UTI. Glucose readings on the evening of her admission were still elevated in the 350s but rapidly came down into the mid 100s and dropped as low as 102 on the following morning necessitating discontinuation of her insulin pump. However with that her blood sugars then evita throughout the day on 12/12/2023 and went up to as high as 421 necessitating additional intermediate and long-acting insulin including NPH and Lantus. However because of the overlap of the NPH and the Lantus as well as resumption of her insulin pump her blood sugars dropped during the night down to as low as 75. On the morning of discharge her blood sugars were running from 111-203 and she was feeling fine. Urine cultures were obtained on admission but she was not started on antibiotics initially however when I saw her on December 12, 2023 started on Rocephin 1 g IV daily. Her elevated leukocytosis of 12,820 came down to normal to 7700. Her dysuria symptoms resolved. Final urine culture is pending at this time but she appears to be growing gram-positive vincent greater than 100,000 colonies. She will be discharged home on 7-day course of cefpodoxime 200 mg p.o. twice daily. She should follow-up with her primary care provider in the next week. She is to resume her insulin pump at her previous settings and report any hypoglycemia or severe hyperglycemia. She should return the hospital if she has any nausea vomiting fever chills or uncontrollable blood sugars. Home Meds and New Rx's Prescriptions: New cefpodoxime 200 mg tablet 200 mg PO BID 7 Days Qty: 14 0RF Rx Instructions: must administer with a meal/food Continued Novolin R Regular U100 Insulin 100 unit/mL solution See Rx Instructions subcut USEASDIRECTD Rx Instructions: use with insulin pump meclizine 25 mg tablet 25 mg PO .Q6hrs PRN duloxetine 40 mg capsule,delayed release(DR/EC) 40 mg PO DAILY Rx Instructions: pt takes an additional 20mg (60mg dose total) prn. vitamin B complex [B Complex-Vitamin B12] Tablet 1 tab PO DAILY aspirin 81 mg tablet,delayed release (DR/EC) 81 mg PO DAILY glucagon 1 mg/0.2 mL auto-injector 1 mg subcut ONCE Rx Instructions: as a single dose; may repeat once after 15 minutes if no response cranberry extract 250 mg capsule 250 mg PO DAILY Rx Instructions: administer with a meal esomeprazole magnesium 40 mg capsule,delayed release(DR/EC) 40 mg PO DAILY sucralfate [Carafate] 1 gram tablet 1 g PO QACHS pyridoxine (vitamin B6) 100 mg tablet 200 mg PO DAILY valsartan 40 mg tablet 40 mg PO .COMPLEX PRN Rx Instructions: 40 mg orally three times weekly only due to low bp PRN; cholecalciferol (vitamin D3) [Vitamin D3] 50 mcg (2,000 unit) tablet 5,000 unit PO DAILY insulin aspart U-100 [Novolog PenFill U-100 Insulin] 100 UNIT/1 ML cartridge 100 unit SQ DAILY Patient Comments: pt has insulin pump dose is between 40 and 50 units daily insulin glargine [Lantus U-100 Insulin] 100 UNITS/ML solution 28 units SQ DAILY PRN (Reason: insulin pump failure) Patient Comments: 28 units at 1800 acetaminophen 500 mg Tablet 1,000 mg PO Q8H Qty: 180 0RF atorvastatin 40 mg tablet 40 mg PO DAILY Discharge Instructions Instructions: Low blood sugar in people with diabetes, Cefpodoxime, Urinary Tract Infection, Adult ED Additional Instructions: You developed hyperglycemia (elevated glucose levels) due to a UTI and then sustained hypoglycemia from over correction w/ the additional Lantus you took. we admitted you to monitor for further hypoglycemia. However you glucose levels evita into the 400's and necessitated additional insulin beyond your usual dosing from your pump. This caused you to have another hypoglycemia spell and we kept you one additional day. You glucose readings now seem to be more moderate from 110's to 200. You should continue on a week of antibiotics for your UTI and continue your insulin pump at your prior settings and follow your provider's instructions on managing elevated glucose readings. Return to the hospital for any severe glucose readings which you are not able to control or if you develope confusion, fevers, nausea or vomiting. Stand Alone Forms: Nursing Discharge Form Referrals: Vinayak Downs MD [Primary Care Provider] - 12/21/23 9:15 am Activity:: Activity as Tolerated Equipment/Supplies:: No Equipment Needed Diet:: Carb Counting Discharge Orders Discharge Orders: Discharge Order (Routine); Ordered 12/13/23 Ordered By: Soren Rob DS: Summary Time Spent with Patient providing and/or coordinating discharge services: Less than 30 minutes Specific discharge activities: Interview/exam of patient; review of discharge instructions, completion of prescriptions/discharge instructions; discussion w/ nursing and CM; documentation of hospital visit Status at Discharge Functional status at discharge: independent ambulation Overall status at discharge: patient is back to baseline Mental Status: mental status grossly normal Speech and Movement: speech and movement normal Mood: congruent mood Affect: normal affect Quality:SDOH Health Related Social Needs: No Data to Display Exam Narrative Exam Narrative: Liane is sitting up in bed, she has completed her breakfast, she feels fine. She did have a hypoglcyemia spell this morning d/t the overlap of the NPH given yesterday afternoon and the Lantus given at bedtime. Glucose was down to 75 during the night. She says she feels tired but otherwise fine. No nausea or vomiting. Eating well. Glucose now up to 111 before breakfast and up to 203 post breakfast Psych Mental Status: mental status grossly normal Speech and Movement: speech and movement normal Mood: congruent mood Affect: normal affect DS: Data Vitals/I&O Vitals and I&O: Vital Signs Temperature 36.8 C 12/13/23 07:18 Temperature Source Tympanic 12/13/23 07:18 Pulse 82 12/13/23 07:18 Pulse 88 12/11/23 21:10 Respiratory Rate 18 12/13/23 07:18 Respiratory Effort Normal, Non-Labored 12/11/23 22:30 Respiratory Depth Normal 12/11/23 22:30 Respiratory Pattern Normal 12/11/23 22:30 Blood Pressure 148/57 H 12/13/23 07:18 Blood Pressure Mean 87 12/11/23 21:00 Blood Pressure Position Sitting 12/11/23 18:37 Pulse Oximetry 97 12/13/23 07:18 Oxygen Delivery Method Room Air 12/13/23 07:18 Oxygen Flow Rate 0 12/13/23 07:18 Pain Level 0 12/13/23 07:18 Comment 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 I'll get vitals done afterwards. 12/13/23 11:21 Intake & Output 12/12/23 12/12/23 12/13/23 11:59 23:59 11:59 Intake Total 420 / 420 Output Total 325 / 2125 1800 / 2125 450 / 450 Balance -325 / -2125 -1800 / -2125 -30 / -30 Intake: Oral 420 / 420 Output: Urine 325 / 2125 1800 / 2125 450 / 450 Other: Urine Color Pale Yellow Pale Yellow Urine Appearance Clear Clear Clear Urine Odor Normal Voiding Methods Toilet Toilet Data Completed and Pending Labs on day of discharge: Labs from last 24 hours 12/13/23 12/13/23 12/13/23 Unknown 08:10 05:52 WBC 7.70 RBC 3.71 L Hgb 9.9 L Hct 30.8 L MCV 83 MCH 26.7 L MCHC 32.1 RDW 15.1 H Plt Count 194 MPV 10.7 Immature Gran % 0.3 Neutrophils % 58.7 Lymphocytes % 28.3 Monocytes % 6.9 Eosinophils % 5.3 Basophils % 0.5 Nucleated RBC % 0.0 Absolute Neutrophils 4.52 Absolute Lymphocytes 2.18 Absolute Monocytes 0.53 Absolute Eosinophils 0.41 Absolute Basophils 0.04 Sodium 138 Potassium 3.9 Chloride 102 Carbon Dioxide 28.6 Anion Gap 7.4 BUN 30 H Creatinine 1.3 H Est GFR (CKD-EPI 2020) 41.83 Glucose 92 Calcium 9.2 Iron 19 L TIBC 291 Transferrin % Sat 7 L Ferritin 28 C-Reactive Protein 1.00 H Vitamin B12 > 2000 H Folate 9.9 Add-On Test Request TNP Preliminary micro results at discharge 12/11/23 22:35 Urine Culture - Preliminary Urine - Reflex from Ua Gram Positive Vincent,Mixed PFSH All Active Problems (Updated 12/13/23 @ 11:35 by Soren Rob MD) Iron deficiency anemia (Acute) Hypoglycemia due to insulin (Acute) UTI (urinary tract infection) (Acute) Hyperglycemia (Acute) Accidental overdose of insulin (Acute) Skin ulcer of left ankle (Acute) Atherosclerosis of artery of both lower extremities (Acute) On deep vein thrombosis (DVT) prophylaxis (Acute) Intertrochanteric fracture of left hip (Acute 05/22/23) Diabetes mellitus with foot ulcer due to multiple causes (Acute) Contusion of left great toe with damage to nail (Acute) Cellulitis (Acute) Dystrophia unguium (Acute) Asymmetrical sensorineural hearing loss (Acute) S/P LORETTA-BSO (Acute) Insomnia (Acute) Renal insufficiency (Chronic) CTS (carpal tunnel syndrome) (Acute) Ventricular arrhythmia (Acute) Spinal stenosis, lumbar (Acute) spinal fusion L4/5 Degenerative joint disease of spine (Acute) Loss of balance (Acute) GERD (gastroesophageal reflux disease) (Chronic) Osteoarthritis of fingers of both hands (Acute) Actinic keratoses (Acute) Urinary incontinence (Acute) with recurrent UTIs ICD (implantable cardioverter-defibrillator) in place (Acute 11/13/15) [employer] John II VR, single lead [id number], [facility] [place] 07/01/2009 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) History of sudden cardiac arrest (06/21/09) Surgical History S/P CABG (coronary artery bypass graft) (11/13/15) History of cataract surgery Hx of cholecystectomy H/O breast biopsy History of bilateral salpingo-oophorectomy (BSO) History of total abdominal hysterectomy Family History Father Heart disease Hypertension Mother Diabetes Heart disease Hypertension Social History Smoking/Tobacco Use Status: Former Tobacco Use Smoking risk assessment performed?: Yes Alcohol Intake: current Alcohol Intake frequency: holidays/special occasions only Alcohol type: wine Drug use: Never Household members: none Housing: house What is your relationship status?: Panel score (0-1 are the most socially isolated patients): 0 Do you feel safe at home: Yes Do you feel safe in your relationship?: Yes Time Spent with Patient Time Spent with Patient: <45 minutes Time was spent: preparing to see the patient(eg.review tests), ordering medications,tests, procedures, referring, communicating with other health ocular care aide, indepentently interpreting results, counseling the patient and care coordination
[2023-12-13 11:33] VITALS: BP 193/76; PULSE 91; RESP 20; TEMP 37; O2SAT 95
[2023-12-13] MEDS: cefTRIAXone 1 GM/50 ML BAG IVPB (11:40)
[2023-12-13] MEDS: Insulin Aspart 300 UNITS/3 ML PEN SC (11:47)
[2023-12-13] MEDS: Valsartan 40 MG TAB PO (12:00)
[2023-12-13 12:57] VITALS: BP 155/78; PULSE 88; RESP 17; TEMP 36.9; O2SAT 97
--- NOTE | 2023-12-13 14:52 | CHAPLAIN ---
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 She was happy to tell me that she is being discharged today. She came in for a UTI that was also causing problems with her blood sugar levels.
--- NOTE | 2023-12-13 15:08 | PDOC.CMDIS ---
Date of service: 12/13/23 Time of Service: 15:08 Care Management Discharge Plan Reason for Hospitalization: Hyperglycemia Discharge Plan: Liane will return home when ready per MD; no additional services anticipated at this time. She will transport via private vehicle with family. Patient/Family Education Needs: Review discharge instructions, discuss Ask Me Three. SDOH Health Related Social Needs: No Data to Display
== END 2023-12-13 13:57 | disposition home or self-care (01) ==
LOC: ER 21:00 → MS 22:16
PROVIDERS: Internal Medicine; Admitting Provider Family Medicine; Emergency Provider Physician Assistant; PCP Family Medicine; Visit Provider Family Medicine
DX: T38.3X1A Poisoning by insulin and oral hypoglycemic [antidiabetic] drugs, accidental (unintentional), initial encounter (principal); E10.649 Type 1 diabetes mellitus with hypoglycemia without coma; I10 Essential (primary) hypertension; E10.65 Type 1 diabetes mellitus with hyperglycemia; E10.43 Type 1 diabetes mellitus with diabetic autonomic (poly)neuropathy; I25.10 Atherosclerotic heart disease of native coronary artery without angina pectoris; K21.9 Gastro-esophageal reflux disease without esophagitis; Z96.41 Presence of insulin pump (external) (internal); Z95.1 Presence of aortocoronary bypass graft; N39.0 Urinary tract infection, site not specified; Z95.810 Presence of automatic (implantable) cardiac defibrillator
CPT/HCPCS: 00123; 36415; 36416; 80048; 80053; 82805; 82962; 83690; 84145; 85027; 93005; 96361; 96365; 96366; 96372; 99285; J1650; 81003; 81015; 82607; 82728; 82746; 83540; 83550; 83605; 83735; 85025; 86140; 87086; 93010; 99223; 99231; 99238; G0378; J0696; J1815

== ENCOUNTER 2024-02-15 21:55 | Outpatient (REF) | payer MEDICARE, BC, SELFPAY ==
[2024-02-15 15:36] LABS: COMMENT (LAB VIEW ONLY) 166.61 mg/dL; Microalb ug/mg Crea 28.5 ug/mg Cr
--- OUTSIDE RECORDS SUMMARY | 2024-02-15 22:01 | XMS_ITS | Encounter Summary ---
Author Organization [facility] [place] [address] Care Team Providers Care Nursing Services Manager Name Role Phone Vinayak Downs MD Primary Care Provider [phone] Encounter Details Date Type Department Care Team (Latest Contact Info) Description 09/21/2023 Travel Social History Tobacco Use Types Packs/Day Years Used Date Smoking Tobacco: Former Cigarettes Q uit: 06/20/1975 Smokeless Tobacco: Never Alcohol Use Standard Drinks/Week Comments No 0 (1 standard drink = 0.6 oz pur e alcohol) Sex and Gender Information Value Date Recorded Sex Assigned at Not on file Gender Identity Not on file Sexual Orientation Not on file documented as of this encounter Plan of Treatment Upcoming Encounters Date Type Department Care Team (Late st Contact Info) Description 02/29/2024 10:00 AM EST Office Visit Cardiology at [address] [place] [id number] Ruben Hartman, PA [facility] [place] [address] 04/26/2024 10:00 AM EST Hospital Encounter Non-Invasive [place] [address] Arrived 09/24/2024 4:00 PM EDT Office Visit Cardiology at [address] [place] [address] Nathaniel Keita MD [facility] [place] [address] documented as of this encounter Visit Diagnoses Not on filedocumented in this encounter Care Teams Nursing Services Manager Relationship Specialty Start Date End Date Vinayak Downs MD [address] [place] [address] PCP - General Family Medicine 07/27/23 documented as of this encounter
--- OUTSIDE RECORDS SUMMARY | 2024-02-15 22:01 | XMS_ITS | Encounter Summary ---
[place] [address] Care Team Providers Care Manager Of Training And Development Name Role Phone Vinayak Downs MD Primary Care Provider [phone] Encounter Details Date Type Department Care Team (Latest Contact Info) Description 10/29/2023 10:00 AM EDT - 10/29/2023 11:59 PM EDT Hospital Encounter Non-[place] [id number] Discharge Disposition: Home Social History Tobacco Use Types Packs/Day Years Used Date Smoking Tobacco: Former Cigarettes Q uit: 06/20/1975 Smokeless Tobacco: Never Alcohol Use Standard Drinks/Week Comments No 0 (1 standard drink = 0.6 oz pur e alcohol) Sex and Gender Information Value Date Recorded Sex Assigned at Not on file Gender Identity Not on file Sexual Orientation Not on file documented as of this encounter Medications at Time of Discharge Medication Sig Dispensed Refills Start Date End Date DULoxetine DR (Cymbalta) [address] capsule Take 60 mg by mouth daily. Cranberry Extract 250 mg Capsule Taking 2 capsules daily 11/05/2020 sucralfate (Carafate) 1 gram Tablet 1 g 4 times daily as needed. 06/09/2021 esomeprazole (NexIUM) 20 mg Capsule, Delayed Release(E.C.) Take 40 mg by mouth every morning (before breakfast). cyanocobalamin, vitamin B-12, 500 mcg Tablet Take 1,000 mcg by mouth daily. cholecalciferol, Vitamin D3, 5,000 unit Tablet Take 2,000 Units by mouth daily. acetaminophen (TYLENOL) 500 mg Tablet Take 1,000 mg by mouth every 6 hours as needed for Pain. valsartan (DIOVAN) 40 mg Tablet Take 40 mg by mouth daily. Takes 2-3 times per week thiamine 100 mg Tablet Take 100 mg by mouth daily. insulin glargine (LANTUS) Solution Inject 28 Units subcutaneously daily. PRN for pump failure 10 mL 09/08/2015 insulin lispro (HUMALOG) Solution Inject 35-40 Units subcutaneously continuous. Daily via insulin pump diag code E10.319 40 mL 3 04/30/2015 atorvastatin (LIPITOR) 40 mg Tablet Take 40 mg by mouth daily. glucagon, human recombinant, 1 mg injection Inject 1 mL into the muscle as needed. 1 each prn 05/08/2013 aspirin 81 mg chewable tablet Take 81 mg by mouth daily. Pyridoxine (VITAMIN B-6) 200 mg Tab 200 mg PO Once daily 03/24/2010 documented as of this encounter Plan of Treatment Upcoming Encounters Date Type Department Care Team (Late st Contact Info) Description 02/29/2024 10:00 AM EST Office Visit Cardiology at [address] [address] Ruben Hartman, PA [facility] [place] [address] 04/26/2024 10:00 AM EST Hospital Encounter Non-[place] [address] Arrived 09/24/2024 4:00 PM EDT Office Visit Cardiology at [address] [address] Nathaniel Keita MD [facility] [place] [address] documented as of this encounter Procedures Procedure Name Priority Date/Time Associated Diagnosis Comments PRO ICD INTERROGATION REMOTE UP TO 90 DAYS Routine 08/31/2023 12:16 PM EDT documented in this encounter Results * Cardiac Device Check - Remote (08/31/2023 12:16 PM EDT) Anatomical Region Laterality Modality Other 08/31/2023 12:1 6 PM EDT Vimal Meyers MD IMPLANTABLE CARDIAC DEVICE documented in this encounter Visit Diagnoses Not on filedocumented in this encounter Care Teams Manager Of Training And Development Relationship Specialty Start Date End Date Vinayak Downs MD [address] [place] [id number] PCP - General Family Medicine 07/27/23 documented as of this encounter
--- OUTSIDE RECORDS SUMMARY | 2024-02-15 22:01 | XMS_ITS | Encounter Summary ---
[place] [address] Care Team Providers Care Technical Specialist Cytology Name Role Phone Vinayak Downs MD Primary Care Provider [phone] Encounter Details Date Type Department Care Team (Latest Contact Info) Description 01/27/2024 10:00 AM EDT - 01/27/2024 11:59 PM EDT Hospital Encounter Non-[place] [phone] Discharge Disposition: Home Social History Tobacco Use [...] 10:00 AM EST Office Visit Cardiology at [address] [phone] Ruben Hartman, PA [facility] [place] [address] 04/26/2024 10:00 AM EST Hospital Encounter Non-[place]vasive [place] [address] Arrived 09/24/2024 4:00 PM EDT Office Visit Cardiology at [address] [address] Nathaniel Keita MD [facility] [place] [address] documented as of this encounter Visit Diagnoses Not on filedocumented in this encounter Care Teams Technical Specialist Cytology Relationship Specialty Start Date End Date Vinayak Downs MD [address] [place] [address] PCP - General Family Medicine 07/27/23 documented as of this encounter
--- OUTSIDE RECORDS SUMMARY | 2024-02-15 22:01 | XMS_ITS | Encounter Summary ---
Author Organization [facility] Address [facility] [place] [address] Care Team Providers Care Apartment Maintenance Manager Name Role Phone Vinayak Downs MD Primary Care Provider [phone] Reason for Visit * Reason Comments Ventricular Arrhythmia Medtronic ICD for Ventricular fibrillation Coronary Artery Disease Hypertension Encounter Details Date Type Department Care Team (Late st Contact Info) Description 09/21/2023 3:40 PM EDT Office Visit Cardiology at [address] [address] Nathaniel Keita MD [facility] [place] [address] Coronary artery disease, unspecified vessel or lesion type, unspecified whether angina present, unspecified whether ewiiaapaayp or transplanted heart; Ventricular fibrillation- with Medtronic ICD implanted 2009 Social History Tobacco Use Types Packs/Day Years Used Date Smoking Tobacco: Former Cigarettes Q uit: 06/20/1975 Smokeless Tobacco: Never Alcohol Use Standard Drinks/Week Comments No 0 (1 standard drink = 0.6 oz pur e alcohol) Sex and Gender Information Value Date Recorded Sex Assigned at Not on file Gender Identity Not on file Sexual Orientation Not on file documented as of this encounter Last Filed Vital Signs Vital Sign Reading Time Taken Comments Blood Pressure 120/66 09/21/2023 3:56 PM EDT Pulse 78 09/21/2023 3:56 PM EDT Temperature - - Respiratory Rate - - Oxygen Saturation - - Inhaled Oxygen Concentration - - Weight 73.9 kg (163 lb) 09/21/2023 3:56 PM EDT Height 172.7 cm (5' 8) 09/21/2023 3:56 PM EDT Body Mass Index 24.78 09/21/2023 3:56 PM EDT documented in this encounter Progress Notes * Nathaniel Keita MD - 09/21/2023 3:40 PM EDT Images from the original note were not included. Subjective: Patient ID: Liane Cole is a 77 y.o. female who presents on follow-up for: Chief Complaint Patient presents with Ventricular Arrhythmia Medtronic ICD for Ventricular fibrillation Coronary Artery Disease Hypertension HPI Last seen by me 10/2018, at which time her device was at [facility]. . The generator was changed, and she last saw EP 07/2023 at which time no changes were made. Since then, she has been doing well from a cardiovascular standpoint. Limited activity is due to MSK issues (hip, back, balance) but is without angina nor utnoward dyspnea (unless she overdoes it). No palpitation/LH. Looking forward to going camping in the [facility] area. Bp well controlled Current Outpatient Medications Medication Instructions acetaminophen (TYLENOL) 1,000 mg, Oral, EVERY 6 HOURS PRN aspirin 81 mg, DAILY atorvastatin (LIPITOR) 40 mg, Oral, DAILY cholecalciferoL (Vitamin D3) (VITAMIN D3) 2,000 Units, Oral, DAILY Cranberry Extract 250 mg Capsule Taking 2 capsules daily cyanocobalamin (vitamin B-12) (VITAMIN B-12) 1,000 mcg, Oral, DAILY DULoxetine DR (CYMBALTA) 60 mg, Oral, DAILY esomeprazole (NEXIUM) 40 mg, Oral, EVERY MORNING BEFORE BREAKFAST glucagon (human recombinant) 1 mg, Intramuscular, PRN insulin glargine (LANTUS U-100 INSULIN) 28 Units, Subcutaneous, DAILY, PRN for pump failure insulin lispro (HUMALOG) 35-40 Units, Subcutaneous, CONTINUOUS, Daily via insulin pump diag code E10.319 Pyridoxine (VITAMIN B-6) 200 mg Tab 200 mg PO Once daily sucralfate (CARAFATE) 1 g, 4 TIMES DAILY PRN thiamine (VITAMIN B-1) 100 mg, Oral, DAILY valsartan (DIOVAN) 40 mg, Oral, DAILY, Takes 2-3 times per week Patient Active Problem List Diagnosis Ventricular fibrillation- with Medtronic ICD implanted 200906/21/2009 [facility]--- VF presenting, ROSC post shock by EMS, intubated; Dual chamber ICD - 07/02/2009 Medtronic John II VR Model# [id number], Serial# [id number] (pulse generator replaced 01/12/2019) (Old) Ventricular electrode: Medtronic Sprint Quattro MRI Model# 6947-58cm, Serial #[id number] Implanted 07/01/2009 (New)Pulse generator: Medtronic VISIA AF MRI Model# [id number], Serial# [id number] Implanted 01/12/2019 CAD, out of hosp arrest and 2v CABG in 2009, preserved LV function 06/2009: out of hospital cardiac VF arrest. cath >> 3vD and EDP 30 >> 2v CABG (Dr. Bonilla) and ICD implantation. 01/2012: Echo --- EF 60% with no wma's and no valve disease. 09/2013: Preop DSE-- very small area of apical ischemia. 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 Gen: pleasant female in NAD Cor: rrr, s1/s2 of nl character and amplitude, no pathologic m/r/g. Estimated RAP not elevated. Carotids with normal upstroke without bruit. Pulm: CTAB. Normal diaphragmatic movement without use of accessory muscles Assessment and Plan: CAD, out of hosp arrest and 2v CABG in 2009, preserved LV function No angina per history. - Anti-Thrombosis: asa 81 - Anti- Lipemic: lipitor 40 - Anti- Anginals:none Ventricular fibrillation- with Medtronic ICD implanted 2009 Well functioning device per recent interrogation. RTC 12 months; will check device then (remote checks active) Nathaniel Keita MD documented in this encounter Miscellaneous Notes * Assessment & Plan Note - Nathaniel Keita MD - 09/21/2023 4:13 PM EDT Associated Problem(s): Ventricular fibrillation- with Medtronic ICD implanted 2009 Well functioning device per recent interrogation. * Assessment & Plan Note - Nathaniel Keita MD - 09/21/2023 4:13 PM EDT Associated Problem(s): CAD, out of hosp arrest and 2v CABG in 2009, preserved LV function No angina per history. - Anti-Thrombosis: asa 81 - Anti- Lipemic: lipitor 40 - Anti- Anginals:none documented in this encounter Plan of Treatment Upcoming Encounters Date Type Department Care Team (Late st Contact Info) Description 02/29/2024 10:00 AM EST Office Visit Cardiology at [address] [phone] Ruben Hartman PA [facility] [place] [address] 04/26/2024 10:00 AM EST Hospital Encounter Non[place] [address] Arrived 09/24/2024 4:00 PM EDT Office Visit Cardiology at [address] [phone] Nathaniel Keita MD [facility] [place] [address] documented as of this encounter Visit Diagnoses Diagnosis Coronary artery disease, unspecified vessel or lesion type, unspecified whether angina present, unspecified whether ewiiaapaayp or transplanted heart Ventricular fibrillation- with Medtronic ICD implanted 2009 Ventricular fibrillation documented in this encounter Care Teams Apartment Maintenance Manager Relationship Specialty Start Date End Date Vinayak Downs MD [address] [place] [address] PCP - General Family Medicine 07/27/23 documented as of this encounter
--- OUTSIDE RECORDS SUMMARY | 2024-02-15 22:01 | XMS_ITS | Encounter Summary ---
Author Organization [facility] [place] [address] Care Team Providers Care Cafe Operator Name Role Phone Vinayak Downs MD Primary Care Provider [phone] Reason for Referral * Diagnostic Test (Routine) - Closed Specialty Diagnoses / Procedures Referred By Contac t Referred To Contact Cardiology Diagnoses Ventricular fibrillation Coronary artery disease without angina pectoris, unspecified vessel or lesion type, unspecified whether te-moak or transplanted heart Hypertension, unspecified type Procedures Echocardiogram Transthoracic Ruben Hartman PA [facility] [place] [address] Referral ID Status Reason Start Date Expiration Date V isits Requested Visits Authorized [id number] Closed Specialty Service Requested 07/27/2023 01/23/2024 1 1 Reason for Visit * Reason Comments Ventricular Arrhythmia Ventricular Fibri llation Encounter Details Date Type Department Care Team (Late st Contact Info) Description 07/27/2023 9:00 AM EDT Office Visit Cardiology at [address] [place] [address] Ruben Hartman PA [facility] [place] [address] Ventricular fibrillation- with Medtronic ICD implanted 2009; Coronary artery disease without angina pectoris, unspecified vessel or lesion type, unspecified whether te-moak or transplanted heart; Hypertension, unspecified type Social History Tobacco Use Types Packs/Day Years [...] Sign Reading Time Taken Comments Blood Pressure 155/71 07/27/2023 9:19 AM EDT Pulse 93 07/27/2023 9:19 AM EDT Temperature - - Respiratory Rate - - Oxygen Saturation - - Inhaled Oxygen Concentration - - Weight 72.6 kg (160 lb) 07/27/2023 9:19 AM EDT Height 172.7 cm (5' 8) 07/27/2023 9:19 AM EDT Body Mass Index 24.33 07/27/2023 9:19 AM EDT documented in this encounter Progress Notes * Ruben Hartman PA - 07/27/2023 9:00 AM EDT Cardiac Electrophysiology Clinic Visit Subjective: Patient ID: Liane Cole is a 77 y.o. female. CC: Follow up of ICD programming HPI: 77 y.o. female with past medical history of out of hospital cardiac arrest - following which she was found to have 3-vessel CAD and underwent a 2V CABG (considered to have had an incomplete revascularisaton), s/p single-chamber ICD implant June 2009, generator change January 2019, placed on amiodarone for a period, but had intolerable nausea on this and it was discontinued, so her beta beto was maximised instead. Fortunately, she has done well on this, with no recurrent ventricular arrhythmias. Subjective: - Patient reports a history of a broken hip and was treated in hospital. Patient expressed, I'm dealing with a broken hip and noted a rapid recovery, stating the hip is almost healed. 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 Patient also has a history of smoking but quit 48 years ago at age 29. Objective History: - Patient is remotely monitored for ICD function, with the last transmission on June 07 showing good battery life and no significant issues. - Patient is mobile and able to perform daily activities. - No recent echocardiogram; last one was in 2011 Patient Active Problem List Diagnosis Ventricular fibrillation- with Medtronic ICD implanted 2009 Overview Note: 06/21/2009 [facility]--- VF presenting, ROSC post shock by EMS, intubated; Dual chamber ICD - 07/02/2009 Medtronic John II VR Model# [id number], Serial# [id number] (pulse generator replaced 01/12/2019) (Old) Ventricular electrode: Medtronic Sprint Quattro MRI Model# 6947-58cm, Serial #[id number] Implanted 07/01/2009 (New)Pulse generator: Medtronic VISIA AF MRI Model# [id number], Serial# [id number] Implanted 01/12/2019 CAD, out of hosp arrest and 2v CABG in 2009, preserved LV function Overview Note: 06/2009: out of hospital cardiac VF arrest. cath >> 3vD and EDP 30 >> 2v CABG (Dr. Bonilla) and ICD implantation. 01/2012: Echo --- EF 60% with no wma's and no valve disease. 09/2013: Preop DSE-- very small area of apical ischemia. 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 Cranberry Extract 250 mg Capsule Taking 2 capsules daily sucralfate (Carafate) 1 gram Tablet 1 g 4 times daily as needed. esomeprazole (NexIUM) 20 mg Capsule, Delayed Release(E.C.) Take 40 mg by mouth every morning (before breakfast). cyanocobalamin, vitamin B-12, 500 mcg Tablet Take 1,000 mcg by mouth daily. cholecalciferol, Vitamin D3, 5,000 unit Tablet Take 2,000 Units by mouth daily. acetaminophen (TYLENOL) 500 mg Tablet Take 1,000 mg by mouth every 6 hours as needed for Pain. thiamine 100 mg Tablet Take 100 mg by mouth daily. insulin glargine (LANTUS) Solution Inject 28 Units subcutaneously daily. PRN for pump failure 10 mLprn insulin lispro (HUMALOG) Solution Inject 35-40 Units subcutaneously continuous. Daily via insulin pump diag code E10.319 (Patient taking differently: Inject 40- 50 Units subcutaneously continuous. Daily via insulin pump diag code E10.319) 40 mL 3 atorvastatin (LIPITOR) 40 mg Tablet Take 40 mg by mouth daily. glucagon, human recombinant, 1 mg injection Inject 1 mL into the muscle as needed. 1 each prn aspirin 81 mg chewable tablet Take 81 mg by mouth daily. Pyridoxine (VITAMIN B-6) 200 mg Tab 200 mg PO Once daily valsartan (DIOVAN) 40 mg Tablet Take 40 mg by mouth daily. 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 Tobacco Use Smoking status: Former Types: Cigarettes Quit date: 06/20/1975 Years since quittin.1 Smokeless tobacco: Never Vaping Use Vaping Use: Never used Substance and Sexual Activity Alcohol use: No Drug use: Not on file Sexual activity: Not on file Other Topics Concern Not on file Social History Narrative Not on file Social Determinants of Health Financial Resource Strain: Not on file Food Insecurity: Not on file Transportation Needs: Not on file Physical Activity: Not on file Intimate Partner Violence: Not on file Housing Stability: Not on file Objective: Vitals: Vitals: 07/27/23 0919 BP: 155/71 BP Location (NBP): Left arm Patient Position: Sitting Pulse: 93 Weight: 72.6 kg (160 lb) Height: 172.7 cm (5' 8) Physical Exam: General- No acute distress, sitting comfortably in exam room chair HEENT- Head atraumatic, normocephalic Skin- Pocket incision is well healed. No evidence of erosion or need of revision Neck- No JVD noted Cardiovascular- S1/S2 regular rate and rhythm. No murmur, rub or gallop Lungs- Clear to auscultation bilaterally Extremities- Pulses equal bilaterally. No edema noted Neuro- A&Ox3 Data Single-chamber ICD - 07/02/2009 Medtronic John II VR Model# [id number], Serial# [id number] (pulse generator replaced 01/12/2019) Ventricular electrode: Medtronic Sprint Quattro MRI Model# 6947-58cm, Serial #[id number] Implanted 07/01/2009 (New)Pulse generator: Medtronic VISIA AF MRI Model# [id number], Serial# [id number] Implanted 01/12/2019 Diagnostics Tachy Mode: AF Monitor VF ON >200 bpm ATP During Charging, 35J x 6 FVT Via VF 200-250 bpm Burst(1), 35J x 5 VT ON 182-200 bpm Burst(3), 20J, 35J x 4 Pacing Mode: VVI 40 Presenting EGMs: V-sensed Underlying Rhythm: Sinus 90's Atrial Episodes: --- Ventricular Episodes: 678 NSVT episodes since 02/14/2019 with available EGM showing only a few episodes of NSVT lasting seconds; other EGM's showing SVT lasting upwards of 4 minutes on January 09, 2023. Atrial Pacing: --- Ventricular Pacing: <0.1% Thoracic Impedance: OptiVol impedence below threshold (was previously above threshold earlier this year) HR Histogram Distribution: Appropriate Battery and Leads Voltage: N/A Status: 7.6 yrs Magnet Rate: --- Charge Time: N/A Impedances (ohms) Sensing (mV) Thresholds HV RA RV LV RA RV LV RA RV LV RV=43 SVC=58 ---- 703 --- --- 7.0 --- --- 0.75V @ 0.40ms ---- Comments: - Pocket incision is well healed without signs or symptoms of infection - Device is functioning appropriately Assessment and Plan: 1. ICD Follow-up - Assessment: Stable ICD function with no recent cardiac events. - Investigations planned: Device interrogation performed during the visit confirmed proper functionand battery life. - Treatment planned: Continue current management and remote monitoring. - Relevant referrals: None indicated at this time. 2. Hyperlipidemia - Assessment: Managed on Lipitor 40 mg. - Investigations planned: Annual cholesterol checks by primary care physician. - Treatment planned: Continue current dose of Lipitor. 3. Hypertension - Assessment: Uncontrolled in clinic today - Investigations planned: Monitor BP trends at home. - Treatment planned: Consider increase antihypertensives depending on blood pressure trends at homelonger term. - Referral: Discuss findings with PCP 4. Post-operative Hip Recovery - Assessment: Rapid healing of broken hip with minimal pain and good mobility. - Investigations planned: None indicated at this time. - Treatment planned: Encouraged continued recovery and mobility exercises at home. - Relevant referrals: None indicated at this time. 5. Paroxysmal SVT/PVC's/NSVT, asymptomatic - Assessment: No significant arrhythmias noted on remote monitoring; occasional SVT and PVCs without symptoms. - Investigations planned: None indicated at this time as patient is asymptomatic. - Treatment planned: Advised to possibly avoid caffeine to reduce SVT episodes. Consider trial of low-dose diltiazem or metoprolol if recurring episodes and/or symptoms develop. - Relevant referrals: None indicated at this time. 6. Follow-Up/Disposition - Assessment: Patient is an active individual with a positive outlook and extensive social support. - Investigations planned: Echocardiogram recommended before next follow-up with Doctor Keita to assess cardiac function. - Treatment planned: Encouraged healthy lifestyle and continuation of current activities. - Relevant referrals: Schedule follow-up with Doctor Keita and arrange for echocardiogram prior tothe appointment. Follow-up with in for device check in 6 months. documented in this encounter Plan of Treatment Upcoming Encounters Date Type Department Care Team (Late st Contact Info) Description 02/29/2024 10:00 AM EST Office Visit Cardiology at [address] [place] [phone] Ruben Hartman PA [facility] [place] [address] 04/26/2024 10:00 AM EST Hospital Encounter Non-Invasive [facility] [place] [address] Arrived 09/24/2024 4:00 PM EDT Office Visit Cardiology at [address] [place] [address] Nathaniel Keita MD [facility] [place] [address] Scheduled Orders Name Type Priority Associated Diagnoses Orde r Schedule Echocardiogram Transthoracic Echocardiography Routine Ventricular fibrillation- with Medtronic ICD implanted 2009 Coronary artery disease without angina pectoris, unspecified vessel or lesion type, unspecified whether te-moak or transplanted heart Hypertension, unspecified type Expected: 10/26/2023, Expires: 04/26/2024 documented as of this encounter Visit Diagnoses Diagnosis Ventricular fibrillation- with Medtronic ICD implanted 2009 Ventricular fibrillation Coronary artery disease without angina pectoris, unspecified vessel or lesion type, unspecified whether te-moak or transplanted heart Hypertension, unspecified type documented in this encounter Care Teams Cafe Operator Relationship Specialty Start Date End Date Vinayak Downs MD [address] [place] [address] PCP - General Family Medicine 07/27/23 documented as of this encounter
--- OUTSIDE RECORDS SUMMARY | 2024-02-15 22:01 | XMS_ITS | Encounter Summary ---
[place] [address] Care Team Providers Care Facilities Assistant Name Role Phone Alexander Adams MD Primary Care Provider [phone] Encounter Details Date Type Department Care Team (Late st Contact Info) Description 05/23/2023 Telephone Cardiology at [address] [place] [address] Tammy Machado, RN Social History Tobacco Use Types Packs/Day Years Used Date Smoking Tobacco: Former Cigarettes Q uit: 06/20/1975 Smokeless Tobacco: Never Alcohol Use Standard Drinks/Week Comments No 0 (1 standard drink = 0.6 oz pur e alcohol) Sex and Gender Information Value Date Recorded Sex Assigned at Not on file Gender Identity Not on file Sexual Orientation Not on file documented as of this encounter Miscellaneous Notes * Telephone Encounter - Tammy Machado, RN - 05/23/2023 10:14 AM EST Liane called from her patient bed at [facility]. She is recovering from a fractured hip and cannot keep the planned appointment with Carlos Hartman on 06/01/2023. documented in this encounter Plan of Treatment Upcoming Encounters Date Type Department Care Team (Late st Contact Info) Description 02/29/2024 10:00 AM EST Office Visit Cardiology at [address] [phone] Ruben Hartman PA [facility] [place] [address] 04/26/2024 10:00 AM EST Hospital Encounter Non-Invasive [place] [address] Arrived 09/24/2024 4:00 PM EDT Office Visit Cardiology at [address] [phone] Nathaniel Keita MD [facility] [place] [address] documented as of this encounter Visit Diagnoses Not on filedocumented in this encounter Care Teams Facilities Assistant Relationship Specialty Start Date End Date Alexander Adams MD [address] [place] [address] PCP - General 04/06/12 07/26/23 documented as of this encounter
--- OUTSIDE RECORDS SUMMARY | 2024-02-15 22:01 | XMS_ITS | Encounter Summary ---
Author Organization [facility] [place] [address] Care Team Providers Care Software Security Consultant Name Role Phone Vinayak Downs MD Primary Care Provider [phone] Encounter Details Date Type Department Care Team (Latest Contact Info) Description 07/27/2023 Travel Social History Tobacco Use Types Packs/Day [...] 10:00 AM EST Office Visit Cardiology at [address] [place] [phone] Ruben Hartman, PA [facility] [place] [address] 04/26/2024 10:00 AM EST Hospital Encounter Non-Invasive [place] [address] Arrived 09/24/2024 4:00 PM EDT Office Visit Cardiology at [address] [place] [address] Nathaniel Keita MD [facility] [place] [address] documented as of this encounter Visit Diagnoses Not on filedocumented in this encounter Care Teams Software Security Consultant Relationship Specialty Start Date End Date Vinayak Downs MD [address] [place] [address] PCP - General Family Medicine 07/27/23 documented as of this encounter
--- OUTSIDE RECORDS SUMMARY | 2024-02-15 22:01 | XMS_ITS | Clinical Summary ---
[place] [address] Care Team Providers Care Neurology Director Name Role Phone Vinayak Downs MD Primary Care Provider [phone] Allergies Active Allergy Reactions Criticality Noted Date Comments Adhesive 08/29/2018 Adhesive Tape Alendronate Sodium Other (See Comments) chest pain Amiodarone Other (See Comments) Medium fatigue and dsypnea Povidone-Iodine Other (See Comments) 05/29/2014 Localized skin irritation / burning Carvedilol Medium 06/23/2015 dizzy Celecoxib Nausea And Vomiting Nausea/Vomiting Codeine Nausea And Vomiting 11/28/2014 Codeine Phosphate Nausea And Vomiting Ezetimibe Lipid Results Elevated with 40 MG dosage Gabapentin Nausea And Vomiting Ibandronate Sodium Medium multiple joint aches and edema Kiwi Other (See Comments) SWELLING AND RASH Lisinopril Anaphylaxis High Metoprolol Medium 06/23/2015 dizzy Propoxyphene N-Acetaminophen Nausea And Vomiting Medications Medication Sig Dispensed Refills Start Date End Date Status Pyridoxine (VITAMIN B-6) 200 mg Tab 200 mg PO Once daily 03/24/2010 Acti ve aspirin 81 mg chewable tablet Take 81 mg by mouth daily. Active glucagon, human recombinant, 1 mg injection Inject 1 mL into the muscle as needed. 1 each prn 05/08/2013 Active atorvastatin (LIPITOR) 40 mg Tablet Take 40 mg by mouth daily. Active insulin lispro (HUMALOG) Solution Inject 35-40 Units subcutaneously continuous. Daily via insulin pump diag code E10.319 40 mL 3 04/30/2015 Active Additional Information Patient taking differently: 40-50 UnitsSubcutaneous CONTINUOUS, Daily via insulin pump diag code E10.319, Reported on 03/31/2017 insulin glargine (LANTUS) Solution Inject 28 Units subcutaneously daily. PRN for pump failure 10 mL 09/08/2015 Active thiamine 100 mg Tablet Take 100 mg by mouth daily. Active acetaminophen (TYLENOL) 500 mg Tablet Take 1,000 mg by mouth every 6 hours as needed for Pain. Active valsartan (DIOVAN) 40 mg Tablet Take 40 mg by mouth daily. Takes 2-3 times per week Active cholecalciferol, Vitamin D3, 5,000 unit Tablet Take 2,000 Units by mouth daily. Active cyanocobalamin, vitamin B-12, 500 mcg Tablet Take 1,000 mcg by mouth daily. Active Cranberry Extract 250 mg Capsule Taking 2 capsules daily 11/05/2020 Active sucralfate (Carafate) 1 gram Tablet 1 g 4 times daily as needed. 06/09/2021 Active esomeprazole (NexIUM) 20 mg Capsule, Delayed Release(E.C.) Take 40 mg by mouth every morning (before breakfast). Active DULoxetine DR (Cymbalta) [address] capsule Take 60 mg by mouth daily. Active Active Problems Problem Noted Date Diagnosed Date Ventricular fibrillation- with Medtronic ICD imp lanted 200907/20/2010 Overview (01/12/2019): 06/21/2009 [facility]--- VF presenting, ROSC post shock by EMS, intubated; Dual chamber ICD - 07/02/2009 Medtronic John II VR Model# [id number], Serial# [id number] (pulse generator replaced 01/12/2019) (Old) Ventricular electrode: Medtronic Sprint Quattro MRI Model# 6947-58cm, Serial #[id number] Implanted 07/01/2009 (New)Pulse generator: Medtronic VISIA AF MRI Model# [id number], Serial# [id number] Implanted 01/12/2019 Assessment & Plan (09/21/2023 4:13 PM EDT): Well functioning device per recent interrogation. 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 cath >> 3vD and EDP 30 >> 2v CABG (Dr. Bonilla) and ICD implantation. 01/2012: Echo --- EF 60% with no wma's and no valve disease. 09/2013: Preop DSE-- very small area of apical ischemia. Assessment & Plan (09/21/2023 4:13 PM EDT): No angina per history. - Anti-Thrombosis: asa 81 - Anti- Lipemic: lipitor 40 - Anti- Anginals:none Gastroesophageal reflux disease Hypertension Encounters Date Type Department Care Team Description 01/27/2024 10:00 AM EDT - 01/27/2024 11:59 PM EDT Hospital Encounter Non-[place] [address] Discharge Disposition: Home from Last 3 Months Immunizations Name Administration Dates Next Due Influenza PF, Split 02/17/2015,01/11/2013 Influenza Vaccine, Whole 04/21/2009 Pneumococcal 23-Valent Polysaccharide (Pneumovax 23) 01/02/1985 Family History Medical History Relation Comments Heart Disease Brother 1 Heart Disease Brother 2 Heart Disease Father Hypertension Father Heart Disease Maternal Grandfather Diabetes Maternal Grandmother Heart Disease Maternal Grandmother Diabetes Maternal Uncle 1 Diabetes Maternal Uncle 2 Diabetes Mother Heart Disease Mother Hypertension Mother Stroke Mother Heart Disease Paternal Grandmother Hypertension Paternal Grandmother Amblyopia Neg Hx Blindness Neg Hx Cancer Neg Hx Cataracts Neg Hx Glaucoma Neg Hx Macular Degeneration Neg Hx Retinal Detachment Neg Hx Strabismus Neg Hx Thyroid Disease Neg Hx Relation Status Comments Brother 1 Brother 2 Alive Father Maternal Grandfather Maternal Grandmother Maternal Uncle 1 Maternal Uncle 2 Mother Paternal Grandmother Social History Tobacco Use Types Packs/Day Years Used Date Smoking Tobacco: Former Cigarettes Q uit: 06/20/1975 Smokeless Tobacco: Never Alcohol Use Standard Drinks/Week Comments No 0 (1 standard drink = 0.6 oz pur e alcohol) Sex and Gender Information Value Date Recorded Sex Assigned at Not on file Gender Identity Not on file Sexual Orientation Not on file Last Filed Vital Signs Vital Sign Reading Time Taken Comments Blood Pressure 120/66 09/21/2023 3:56 PM EDT Pulse 78 09/21/2023 3:56 PM EDT Temperature 36.8 ??C (98.2 ??F) 01/12/2019 7:26 AM ED T Respiratory Rate 16 07/02/2021 11:25 AM EDT Oxygen Saturation 100% 07/02/2021 11:25 AM EDT Inhaled Oxygen Concentration - - Weight 73.9 kg (163 lb) 09/21/2023 3:56 PM EDT Height 172.7 cm (5' 8) 09/21/2023 3:56 PM EDT Body Mass Index 24.78 09/21/2023 3:56 PM EDT Plan of Treatment Upcoming Encounters Date Type Department Care Team (Late st Contact Info) Description 02/29/2024 10:00 AM EST Office Visit Cardiology at [address] [phone] Ruben Hartman PA [facility] [place] [address] 04/26/2024 10:00 AM EST Hospital Encounter Non-Invasive [place] [address] Arrived 09/24/2024 4:00 PM EDT Office Visit Cardiology at [address] [phone] Nathaniel Keita MD [facility] [place] [address] Health Maintenance Due Date Last Done Comments Hepatitis C Screening 1963 Tetanus/Diphtheria/Pertussis Vaccines (1 - Tdap) 10/31/1963 Pneumoccocal Vaccine: 65+ (2 of 2 - PCV) 01/02/1986 01/02/1985 Zoster vaccine (1 of 2) 1994 Advance Directive 10/31/1999 Bone Density Scan 2009 DM Opthalmology Exam 08/14/2015 08/13/2014, 07/31/2014, 05/29/2014, Additional history exists DM Hemoglobin A1c 12/09/2015 09/08/2015, , 08/15/2014, Additional history exists DM Urine Microalbumin yearly 02/18/2016, 02/14/2014, 05/08/2013, Additional history exists DM Creatinine yearly 01/13/2020 01/12/2019, 02/17/2015, 02/14/2014, Additional history exists Covid-19 Vaccine ( - 2023-2 5 season) 2023 Influenza (Flu) vaccine (1 o f 1 - Influenza standard series) 12/04/2023 02/17/2015, 01/11/2013, 04/21/2009 Medical Devices Implanted Type Area Furnace Mechanic Helper Device Identifier Shelf Expiration Date Model / Serial / Lot Mdt : [id number] John Ii Vr : [id number] Implanted: (Quantity not on file) Explanted:02/2019 by Vimal Meyers MD (Quantity not on file) Defibrillator Medtronic Inc. JOHN II VR [id number] / [id number] / Description:Medtronic : [id number] John II VR : [id number] Mdt : [id number] : [id number] Implanted:02/2019 by Vimal Meyers MD (Quantity not on file) Defibrillator Left: Chest Medtronic Inc. [id number] / [id number] / Procedures Procedure Name Priority Date/Time Associated Diagnosis Comments BMP W/FASTING GLUCOSE STAT 01/12/2019 7:18 AM EDT HEMOGLOBIN A1C Routine 09/08/2015 3:01 PM EDT Type 1 diabetes mellitus with diabetic retinopathy without macular edema U ALBUMIN/CRE RATIO STAT 02/17/2015 9 :27 AM EST Type 1 diabetes mellitus with diabetic neuropathy from Last 3 Months or Most Recently Relevant to Health Maintenance Results * (ABNORMAL) BMP w/fasting Glucose (01/12/2019 7:18 AM EDT) Glucose Fasting 216(H) 65 - 99 mg/dL [facility] Comment: ?Fasting* Glucose Interpretive Criteria Normal ?65-99 mg/dL Impaired Fasting glucose ?100-125 mg/dL Consistent with Diabetes Mellitus ? >or= 126 mg/dL *Fasting is defined as no caloric intake for at least 8 hours In the absence of unequivocal hyperglycemia a plasma glucose value of >or= 126 mg/dL should be repeated on a subsequent day. Diagnosis and Classification of Diabetes Mellitus, Position Statement from the [place] [employer]. ??Diabetes Care, Volume 33, Supplement 1, Apr 2009 Blood Urea Nitrogen 18 8 - 18 mg/dL [facility] Creatinine 0.89 0.70 - 1.20 mg/dL [facility] Sodium 141 135 - 145 mmol/L [facility] Potassium 4.4 3.5 - 5.0 mmol/L [facility] Comment: Please note: ??Patients with WBC >100,000 may have falsely elevated Potassium levels. ??For accurate Potassium quantification in these patients send serum separator tube (gold top) for subsequent determinations. ??Contact the Clinical Chemistry Laboratory if there are any questions. Chloride 101 98 - 107 mmol/L [facility] Carbon Dioxide 27 22 - 31 mmol/L [facility] Anion Gap 13 5 - 15 mmol/L [facility] Calcium 9.4 8.5 - 10.5 mg/dL [facility] Est Glomerular Filtration Rate 64 >=60 mL/min/1. 73 m?? [facility] Comment: The eGFR was calculated using the CKD-EPI equation. As with all creatinine based estimates of kidney function, eGFR values calculated with the CKD-EPI equation are not accurate in patients with acute kidney failure, extremes of body mass or the acutely ill. [email or web address] [email or web address] eGFR 74 >=60 mL/min/1. 73 m?? [facility] Comment: The eGFR was calculated using the CKD-EPI equation. As with all creatinine based estimates of kidney function, eGFR values calculated with the CKD-EPI equation are not accurate in patients with acute kidney failure, extremes of body mass or the acutely ill. [email or web address] [email or web address] Blood specimen (specimen) 01/12/2019 7:18 AM EDT 01/12/2019 7:38 AM EDT Narrative Resulting Agency Comment Spec In Lab Vimal Meyers MD CHEMISTRY ORDERABLES [facility] [place] [address] * (ABNORMAL) Hemoglobin A1c (09/08/2015 3:01 PM EDT) Hemoglobin A1c 8.4(H) 4.3 - 5.6 % [facility] Comment: Reference Range: 4.3 - 5.6% 5.7 - 6.4% - Increased Risk of Developing Diabetes Mellitus >= 6.5% - Consistent with diagnosis of Diabetes Mellitus In the absence of hyperglycemia (i.e. plasma glucose > 200 mg/dL) or classic symptoms of hyperglycemia a repeat measurement of HbA1c should be performed on a separate sample to confirm the diagnosis. Diagnosis and Classification of Diabetes Mellitus, Diabetes Care 2013; 36: Suppl. 1, D47-49 Estimated Average Glucose See note mg/dL [facility] Comment: Estimated Average Glucose not appropriate for patients over 70 years of age. eAG equivalents for HbA1c percentages: HbA1c(%) ?eAG(mg/dL) 6.0 ?126 6.5 ?140 7.0 ?154 7.5 ?169 8.0 ?183 8.5 ?197 9.0 ?212 9.5 ?226 10.0 ? 240 Limitations: The eAG calculation has not been validated on women, individuals below 18 years old and above 70 years old, and individuals with hemoglobinopathies. Additional resources are available on the ADA website: [email or web address] Alfred JEFFRIES, Risa J, Sergio R, et al. ??Translating the A1C assay into estimated average glucose values. ??Diabetes Care 2008:31(8):3872-3611. Blood specimen (specimen) 09/08/2015 3:01 PM EDT 09/08/2015 3:13 PM EDT Narrative Resulting Agency Comment Spec In Lab Chris Chatman MD CHEMISTRY ORDERABLES [facility] [place] [address] * Microalbumin, urine, random (02/17/2015 9:27 AM EST) Creatinine, Urine 102 mg/dL CE RNER MILLENNIUM Albumin, Urine <3.0 mg/L CERNE R MILLENNIUM Albumin / Creatinin Ratio, Urine <3 mcg/mg Cr [facility] Comment: Reference Range* Random collection (mcg/mg creatinine) Normal ?<30 Microalbuminuria ?? 30 - 300 Clinical Albuminuria ?? >300 *[place] Diabetes Association. Diabetic Nephropathy. Diabetes Care 1997;(Suppl 1):S24-S27 Exercise within 24 hour, infection, fever, CHF, marked hyperglycemia, and marked hypertension may elevate urinary albumin excretion over baseline values. Urine specimen (specimen) 02/17/2015 9:27 AM EST 02/17/2015 9:34 AM EST Narrative Resulting Agency Comment Spec In Lab Elisha Nichols MD URINE ORDERABLES CERNER MILLENNIUM from Last 3 Months or Most Recently Relevant to Health Maintenance Advance Directives * Full Code (Latest Code Status on File) Date Activated Date Inactivated Comments 01/12/2019 8:08 AM 01/12/2019 2:17 PM Question Answer Comments Does patient have capacity to make decision: Yes Care Teams Neurology Director Relationship Specialty Start Date End Date Vinayak Downs MD [address] [place] [address] PCP - General Family Medicine 07/27/23
--- OUTSIDE RECORDS SUMMARY | 2024-02-15 22:01 | XMS_ITS | Encounter Summary ---
[place] [address] Care Team Providers Care Title One Kindergarten Teacher Name Role Phone Alexander Adams MD Primary Care Provider [phone] Encounter Details Date Type Department Care Team (Late st Contact Info) Description 06/13/2023 Telephone Cardiology at [address] [phone] Lorenza Velazquez Social History Tobacco Use Types Packs/Day Years [...] encounter Miscellaneous Notes * Telephone Encounter - Lorenza Velazquez - 06/13/2023 3:36 PM EDT LVM to call back and schedule patient for a device check. Ok to have it done in [place] with Ruben or Dr Meyers. In the comments, please put, B>AX Lorenza Velazquez EP Scheduling documented in this encounter Plan of Treatment Upcoming Encounters Date Type Department Care Team (Late st Contact Info) Description 02/29/2024 10:00 AM EST Office Visit Cardiology at [address] [phone] Ruben Hartman, [facility] [place] [address] 04/26/2024 10:00 AM EST Hospital Encounter Non-Invasive [place] [address] Arrived 09/24/2024 4:00 PM EDT Office Visit Cardiology at [address] [phone] Nathaniel Keita MD [facility] [place] [address] documented as of this encounter Visit Diagnoses Not on filedocumented in this encounter Care Teams Title One Kindergarten Teacher Relationship Specialty Start Date End Date Alexander Adams MD [address] [place] [address] PCP - General 04/06/12 07/26/23 documented as of this encounter
--- OUTSIDE RECORDS SUMMARY | 2024-02-15 22:01 | XMS_ITS | Encounter Summary ---
[place] [address] Care Team Providers Care Health Administration Teacher Name Role Phone Vinayak Downs MD Primary Care Provider [phone] Encounter Details Date Type Department Care Team (Latest Contact Info) Description 07/31/2023 10:00 AM EDT - 07/31/2023 11:59 PM EDT Hospital Encounter Non-[place] [phone] Discharge Disposition: Home Social History Tobacco Use [...] 10:00 AM EST Office Visit Cardiology at [address] [phone] Ruben Hartman, PA [facility] [place] [address] 04/26/2024 10:00 AM EST Hospital Encounter Non-[place]vasive [place] [address] Arrived 09/24/2024 4:00 PM EDT Office Visit Cardiology at [address] [phone] Nathaniel Keita MD [facility] [place] [address] documented as of this encounter Procedures Procedure Name Priority Date/Time Associated Diagnosis Comments PRO ICD INTERROGATION REMOTE UP TO 90 DAYS Routine 06/08/2023 1:25 PM EST documented in this encounter Results * Cardiac Device Check - Remote (06/08/2023 1:25 PM EST) Anatomical Region Laterality Modality Other 06/08/2023 1:25 PM EST Ifeanyi Pardo MD IMPLANTABLE CARDIAC DEVICE documented in this encounter Visit Diagnoses Not on filedocumented in this encounter Care Teams Health Administration Teacher Relationship Specialty Start Date End Date Vinayak Downs MD [address] [place] [address] PCP - General Family Medicine 07/27/23 documented as of this encounter
--- OUTSIDE RECORDS SUMMARY | 2024-02-15 22:02 | XMS_ITS | Encounter Summary ---
Author Organization [facility] Address [facility] [place] [address] Care Team Providers Care Safety Instruction Police Officer Name Role Phone Alexander Adams MD Primary Care Provider [phone] Encounter Details Date Type Department Care Team (Late st Contact Info) Description 06/10/2021 External Results [place] [phone] Provider, Scanning Social History Tobacco Use Types Packs/Day Years [...] 10:00 AM EST Office Visit Cardiology at [address] [phone] Ruben Hartman PA [facility] [place] [address] 04/26/2024 10:00 AM EST Hospital Encounter Non-Invasive Cardiology Lab [facility] [place] [address] Arrived 09/24/2024 4:00 PM EDT Office Visit Cardiology at [address] [place] [address] Nathaniel Keita MD [facility] [place] [address] documented as of this encounter Procedures Procedure Name Priority Date/Time Associated Diagnosis Comments CYTOLOGY SCAN Routine 06/10/2021 documented in this encounter Results * Scan Doc: Cytology (06/10/2021) Historical Provider MD PEÑA MGR SCAN EX T ORDR/RSLT documented in this encounter Visit Diagnoses Not on filedocumented in this encounter Care Teams Safety Instruction Police Officer Relationship Specialty Start Date End Date Alexander Adams MD [address] [place] [address] PCP - General 04/06/12 07/26/23 documented as of this encounter
--- OUTSIDE RECORDS SUMMARY | 2024-02-15 22:02 | XMS_ITS | Encounter Summary ---
[place] [address] Care Team Providers Care Business Partner Name Role Phone Alexander Adams MD Primary Care Provider [phone] Reason for Visit * Reason Comments Follow-up 6 month f/u Medtr[employer] Pacer. No complaints Encounter Details Date Type Department Care Team (Late st Contact Info) Description 05/25/2018 8:20 AM EST Office Visit Cardiology at [address] [phone] Rudy Moralez Jr., MD [address] [place] [address] [phone] Coronary artery disease, angina presence unspecified, unspecified vessel or lesion type, unspecified whether [place] or transplanted heart; Ventricular fibrillation- with Medtronic ICD implanted 2009; Essential hypertension; ICD (implantable cardioverter-defibril lator) battery depletion Social History Tobacco Use Types Packs/Day Years [...] Sign Reading Time Taken Comments Blood Pressure 118/60 05/25/2018 8:35 AM EST Pulse 92 05/25/2018 8:35 AM EST Temperature - - Respiratory Rate - - Oxygen Saturation - - Inhaled Oxygen Concentration - - Weight 73.5 kg (162 lb) 05/25/2018 8:35 AM EST Height 172.7 cm (5' 8) 05/25/2018 8:35 AM EST Body Mass Index 24.63 05/25/2018 8:35 AM EST documented in this encounter Progress Notes * Rudy Moralez Jr., MD - 05/25/2018 8:20 AM EST Subjective: Patient ID: Liane Cole is a 72 y.o. female. Chief Complaint Patient presents with ??? Follow-up 6 month f/u [employer] Pacer. No complaints HPI She has been feeling well and has been very active walking and working again. She denies chest pain or limiting dyspnea. She does get tired at the end of a long day. She feels occasional brief palpitations, no prolonged episodes and denies dizziness. She has had no edema, PND or orthopnea. Her energy level is good. Review of Systems blood sugar variable, otherwise negative except as above Allergies Allergen Reactions ??? Lisinopril Anaphylaxis ??? Amiodarone Other (See Comments) fatigue and dsypnea ??? Carvedilol dizzy ??? Ibandronate Sodium multiple joint aches and edema ??? Metoprolol dizzy ??? Adhesive Tape ??? Alendronate Sodium Other (See Comments) chest pain ??? Betadine [Povidone-Iodine] Other (See Comments) Localized skin irritation / burning ??? Celecoxib Nausea And Vomiting Nausea/Vomiting ??? Codeine Nausea And Vomiting ??? Codeine Phosphate Nausea And Vomiting ??? Ezetimibe Lipid Results Elevated with 40 MG dosage ??? Gabapentin Nausea And Vomiting ??? Kiwi Other (See Comments) SWELLING AND RASH ??? Propoxyphene N-Acetaminophen Nausea And Vomiting Current Outpatient Medications Medication Sig Dispense Refill ??? acetaminophen (TYLENOL) 500 mg Tablet Take 1,000 mg by mouth every 6 hours as needed for Pain. ??? valsartan (DIOVAN) 40 mg Tablet Take 40 mg by mouth daily. ??? thiamine 100 mg Tablet Take 100 mg by mouth daily. ??? insulin glargine (LANTUS) Solution Inject 28 Units subcutaneously daily. PRN for pump failure 10 mL prn ??? insulin lispro (HUMALOG) Solution Inject 35-40 Units subcutaneously continuous. Daily via insulin pump diag code E10.319 (Patient taking differently: Inject 40-50 Units subcutaneously continuous.Daily via insulin pump diag code E10.319) 40 mL 3 ??? atorvastatin (LIPITOR) 40 mg Tablet Take 40 mg by mouth daily. ??? lansoprazole (PREVACID) 30 mg capsule Take 30 mg by mouth daily. ??? glucagon, human recombinant, 1 mg injection Inject 1 mL into the muscle as needed. 1 each prn ??? Cholecalciferol, Vitamin D3, (VITAMIN D-3) 2,000 unit Cap Take 2,000 Units by mouth daily. ??? aspirin 81 mg chewable tablet Take 81 mg by mouth daily. ??? Pyridoxine (VITAMIN B-6) 200 mg Tab 200 mg PO Once daily No current facility-administered medications for this visit. Patient Active Problem List Diagnosis ??? Ventricular fibrillation- with Medtronic ICD implanted 200906/21/2009 [facility]--- VF presenting, ROSC post shock by EMS, intubated; Dual chamber ICD - 07/02/2009 Medtronic John II VR Model# [id number], Serial# [id number] ??? CAD, out of hosp arrest and 2v CABG in 2009, preserved LV function 06/2009: out of hospital cardiac VF arrest. cath >> 3vD and EDP 30 >> 2v CABG (Dr. Bonilla) and ICD implantation. 01/2012: Echo --- EF 60% with no wma's and no valve disease. 09/2013: Preop DSE-- very small area of apical ischemia. ??? Gastroesophageal reflux disease ??? Hypertension ??? 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 NAD No JVD/HJR Chest clear Cor RR, no murmur Abd benign Ext no edema Interrogation: VT 0 VT-NS 68 VF 0 Mode VVI 40 Ventricular Impedance (ohms) 703, defib 41 Threshold (volts) 1.5 P/R (mVolts) 3.1 % paced <0.1 Battery Voltage: 2.64 V (FILTER MACHINE OPERATOR 2.63) charge time 11.3 Rate Responsiveness adequate for level of activity Electrogram clean Reprogramming: Increased V output to 3V Assessment and Plan: Normal ICD function- reprogram to give adequate safety margin for rare V pacing. Nearing but not atRRT Stable frequency of NSVT Well controlled angina Good BP Follow up 3 months to check battery status documented in this encounter Plan of Treatment Upcoming Encounters Date Type Department Care Team (Late st Contact Info) Description 02/29/2024 10:00 AM EST Office Visit Cardiology at [address] [phone] Ruben Hartman, LAURA [facility] [place] [address] 04/26/2024 10:00 AM EST Hospital Encounter [place] [address] Arrived 09/24/2024 4:00 PM EDT Office Visit Cardiology at [address] [phone] Nathaniel Keita MD [facility] [place] [address] documented as of this encounter Visit Diagnoses Diagnosis Coronary artery disease, angina presence unspecified, unspecified vessel or lesion type, unspecified whether [place] or transplanted heart Ventricular fibrillation- with Medtronic ICD implanted 2009 Ventricular fibrillation Essential hypertension Unspecified essential hypertension ICD (implantable cardioverter-defibrillator) battery depletion documented in this encounter Care Teams Business Partner Relationship Specialty Start Date End Date Alexander Adams MD [address] [place] [address] PCP - General 04/06/12 07/26/23 documented as of this encounter
--- OUTSIDE RECORDS SUMMARY | 2024-02-15 22:02 | XMS_ITS | Encounter Summary ---
[place] [address] Care Team Providers Care Clinical Statistics Manager Name Role Phone Alexander Adams MD Primary Care Provider [phone] Encounter Details Date Type Department Care Team (Latest Contact Info) Description 06/21/2020 - 06/21/2020 11:59 PM EDT Hospital Encounter Non[place] [address] Norm Garcia MD [facility] [place] [address] Ventricular fibrillation Discharge Disposition: Home Social History Tobacco Use [...] Sig Dispensed Refills Start Date End Date cyanocobalamin, vitamin B-12, 500 mcg Tablet Take [...] Tab 200 mg PO Once daily 03/24/2010 loratadine (CLARITIN) 10 mg Tablet Take 10 mg by mouth daily as needed. 07/27/2023 lansoprazole (PREVACID) 30 mg capsule Take 30 mg by mouth daily. 07/27/2023 documented as of this encounter Plan of Treatment Upcoming Encounters Date Type Department Care Team (Late st Contact Info) Description 02/29/2024 10:00 AM EST Office Visit Cardiology at [address] [phone] Ruben Hartman, PA [facility] [place] [address] 04/26/2024 10:00 AM EST Hospital Encounter Non[place] [address] Arrived 09/24/2024 4:00 PM EDT Office Visit Cardiology at [address] [phone] Nathaniel Keita MD [facility] [place] [address] documented as of this encounter Procedures Procedure Name Priority Date/Time Associated Diagnosis Comments ICD INTERROGATION 3 MONTH Routine 06/23/2020 7:21 AM EDT Ventricular fibrillation documented in this encounter Results * ICD INTERROGATION 3 MONTH (06/23/2020 7:21 AM EDT) Anatomical Region Laterality Modality Other Narrative 06/23/2020 4:21 PM EDT Outpatient remote interrogation report: See full report as a linked pdf document Date of transmission: 06/21/2020 Device wheel setter: SWATHI Device type: SC ICD Presenting rhythm: vs MAIL CARRIER TECHNICIAN <1% Battery: 3.03V, 10.5 years Episodes: Frequent brief episodes of tachy; uncertain if these events represent ventricular or supraventricular events in this single chamber device. no AF Stable lead trends. Activity 1 hr/day Alyson Oshea MD 06/23/2020 4:15 PM Norm Garcia MD IMPLANTABLE CARDIAC DEVICE documented in this encounter Visit Diagnoses Diagnosis Ventricular fibrillation documented in this encounter Care Teams Clinical Statistics Manager Relationship Specialty Start Date End Date Alexander Adams MD [address] [place] [address] PCP - General 04/06/12 07/26/23 documented as of this encounter
--- OUTSIDE RECORDS SUMMARY | 2024-02-15 22:02 | XMS_ITS | Encounter Summary ---
[place] [address] Care Team Providers Care Drafting Teacher Name Role Phone Alexander Adams MD Primary Care Provider [phone] Encounter Details Date Type Department Care Team (Late st Contact Info) Description 08/28/2019 Notes Only Cardiology at [address] [phone] Vimal Meyers MD [facility] [place] [address] Social History Tobacco Use Types Packs/Day Years Used Date Smoking Tobacco: Former Cigarettes Q uit: 06/20/1975 Smokeless Tobacco: Never Alcohol Use Standard Drinks/Week Comments No 0 (1 standard drink = 0.6 oz pur e alcohol) Sex and Gender Information Value Date Recorded Sex Assigned at Not on file Gender Identity Not on file Sexual Orientation Not on file documented as of this encounter Progress Notes * Vimal Meyers MD - 08/28/2019 10:55 AM EDT Cardiac Device Remote Monitoring Report Summary Medtronic Carelink 08/28/19 Device: ICD Model: VISIA AF MRI VR Battery: 3.06 v, estimated longevity 11 year,1 month Pacing percentage: 100% v sensed Events: Low amplitude R wave (stable for years) Non sustained ventricular high rate events are noted (brief, a few seconds) Impression Normal device function Follow Up As per schedule - in-clinic and remote VIMAL MEYERS MD documented in this encounter Plan of Treatment Upcoming Encounters Date Type Department Care Team (Late st Contact Info) Description 02/29/2024 10:00 AM EST Office Visit Cardiology at [address] [phone] Ruben Hartman PA [facility] [place] [address] 04/26/2024 10:00 AM EST Hospital Encounter Non-[place] [address] Arrived 09/24/2024 4:00 PM EDT Office Visit Cardiology at [address] [phone] Nathaniel Keita MD [facility] [place] [address] documented as of this encounter Visit Diagnoses Not on filedocumented in this encounter Care Teams Drafting Teacher Relationship Specialty Start Date End Date Alexander Adams MD [address] [place] [address] PCP - General 04/06/12 07/26/23 documented as of this encounter
--- OUTSIDE RECORDS SUMMARY | 2024-02-15 22:02 | XMS_ITS | Encounter Summary ---
[place] [address] Care Team Providers Care Shake Out Worker Name Role Phone Alexander Adams MD Primary Care Provider [phone] Encounter Details Date Type Department Care Team (Late st Contact Info) Description 08/10/2019 Telephone Cardiology at [address] [phone] Vimal Meyers MD [facility] [place] [address] Social History Tobacco Use Types Packs/Day Years [...] encounter Miscellaneous Notes * Telephone Encounter - Liane Gutierrez - 08/10/2019 8:15 AM EDT Patient appt for 08/15/2019 has been cancelled, she is very receptive to having remote downloads of her pacemaker. She is doing fine. She asks to have the downloads done in the night time as she is not always at home during the day. Thank you. documented in this encounter Plan of Treatment Upcoming Encounters Date Type Department Care Team (Late st Contact Info) Description 02/29/2024 10:00 AM EST Office Visit Cardiology at [address] [phone] Ruben Hartman PA [facility] [place] [address] 04/26/2024 10:00 AM EST Hospital Encounter Non-[place]vasive [place] [address] Arrived 09/24/2024 4:00 PM EDT Office Visit Cardiology at [address] [phone] Nathaniel Keita MD [facility] [place] [address] documented as of this encounter Visit Diagnoses Not on filedocumented in this encounter Care Teams Shake Out Worker Relationship Specialty Start Date End Date Alexander Adams MD [address] [place] [address] PCP - General 04/06/12 07/26/23 documented as of this encounter
--- OUTSIDE RECORDS SUMMARY | 2024-02-15 22:02 | XMS_ITS | Encounter Summary ---
[place] [address] Care Team Providers Care Inbound Telemarketer Name Role Phone Alexander Adams MD Primary Care Provider [phone] Reason for Referral * Diagnostic Test (Routine) - Closed Specialty Diagnoses / Procedures Referred By Contac t Referred To Contact Radiology Diagnoses Mass of right parotid gland Procedures CT Neck Soft Tissue w Contrast (Generic) Otoniel Brown PA [facility] [place] [address] [facility] [place] [address] Referral ID Status Reason Start Date Expiration Date V isits Requested Visits Authorized [id number] Closed Specialty Service Requested 06/29/2021 08/27/2021 1 1 Reason for Visit * Diagnostic Test (Routine) - Closed Specialty Diagnoses / Procedures Referred By Contbonifacio t Referred To Contact Radiology Diagnoses Mass of right parotid gland Procedures CT Neck Soft Tissue w Contrast (Generic) Otoniel Brown PA [facility] [place] [address] [facility] [place] [address] Referral ID Status Reason Start Date Expiration Date V isits Requested Visits Authorized [id number] Closed Specialty Service Requested 06/29/2021 08/27/2021 1 1 Encounter Details Date Type Department Care Team (Latest Contact Info) Description 07/02/2021 8:28 AM EDT - 07/02/2021 11:59 PM EDT Hospital Encounter CT Scan at [facility] [place] [address] Inocente [place] MD [facility] [place] [address] Mass of right parotid gland Discharge Disposition: Home Social History Tobacco Use [...] Sig Dispensed Refills Start Date End Date Cranberry Extract 250 mg Capsule Taking 2 [...] 10:00 AM EST Office Visit Cardiology at [address] [phone] Ruben Hartman PA [facility] [place] [address] 04/26/2024 10:00 AM EST Hospital Encounter Non-Invasive [place] [address] Arrived 09/24/2024 4:00 PM EDT Office Visit Cardiology at [address] [phone] Nathaniel Keita MD [facility] [place] [address] documented as of this encounter Procedures Procedure Name Priority Date/Time Associated Diagnosis Comments CT NECK SOFT TISSUE W CONTRAST Routine 07/02/2021 8:52 AM EDT Mass of right parotid gland documented in this encounter Results * CT Neck Soft Tissue w Contrast (Generic) (07/02/2021 8:52 AM EDT) Anatomical Region Laterality Modality Neck, Head Computed Tomogra phy 07/02/2021 9:24 AM EDT Impressions 07/02/2021 10:11 AM EDT 1. ??A nonspecific heterogeneous 3.2 cm right parotid mass with adjacent parotid and periparotid edema with equivocal internal hemorrhage in the setting of contrast. 2. ??No cervical lymphadenopathy. 3. ??No evidence of regional distant metastases. Thank you for letting us participate in the care of this patient. ??If you are a health care provider and have any questions regarding this report, please contact the number below. ??For patients who have questions please contact the health patient care specialist that requested your imaging first. ? Electronically signed by: Giovanni Gonzalez MD, [facility] ([phone]), at 07/02/2021 10:11 AM Narrative 07/02/2021 10:11 AM EDT EXAMINATION: CT NECK SOFT TISSUE W CONTRAST (GENERIC) CLINICAL HISTORY: Neck mass, nonpulsatile; Right parotid mass. Right parotid mass for many years, FNA x 2 non-diagnostic. TECHNIQUE: CT neck performed after the intravenous administration of contrast. Administered 110.0 ml of OMNIPAQUE 350.00 mg/ml. COMPARISON: None FINDINGS: There is an enhancing heterogeneous mass in the right parotid gland superficial lobe that measures 3.2 cm in transverse width by 2.9 cm in craniocaudad length by 2.8 cm in AP diameter. There is mild surrounding edema within the parotid glands and mildly so in the adjacent subcutaneous fat and likely in the adjacent sternocleidomastoid muscle. There may be internal hemorrhage but this is difficult to discern in the setting of contrast. No additional primary mass lesion throughout the neck. No cervical lymphadenopathy. The visualized portions of the lungs show no pulmonary nodules. No osseous abnormalities to suggest metastases. The visualized portions the brain are grossly normal. Incidental nonobstructing mucus retention cyst in the right maxillary sinus. Procedure Note Giovanni Gonzalez MD - 07/02/2021 EXAMINATION: CT NECK SOFT TISSUE W CONTRAST (GENERIC) CLINICAL HISTORY: Neck mass, nonpulsatile; Right parotid mass. Right parotid mass for many years, FNA x 2 non-diagnostic. TECHNIQUE: CT neck performed after the intravenous administration of contrast.Administered 110.0 ml of OMNIPAQUE 350.00 mg/ml. COMPARISON: None FINDINGS: There is an enhancing heterogeneous mass in the right parotid glandsuperficial lobe that measures 3.2 cm in transverse width by 2.9 cm in craniocaudadlength by 2.8 cm in AP diameter. There is mild surrounding edema within theparotid glands and mildly so in the adjacent subcutaneous fat and likely in theadjacent sternocleidomastoid muscle. There may be internal hemorrhage but this is difficult to discern in the setting of contrast. No additional primary mass lesion throughout the neck. No cervical lymphadenopathy. The visualized portions of the lungs show no pulmonary nodules. Noosseous abnormalities to suggest metastases. The visualized portions the brainare grossly normal. Incidental nonobstructing mucus retention cyst in the right maxillarysinus. IMPRESSION 1. A nonspecific heterogeneous 3.2 cm right parotid mass with adjacentparotid and periparotid edema with equivocal internal hemorrhage in the settingof contrast. 2. No cervical lymphadenopathy. 3. No evidence of regional distant metastases. Thank you for letting us participate in the care of this patient. If youare a health care provider and have any questions regarding this report,please contact the number below. For patients who have questions please contactthe health patient care specialist that requested your imaging first. Electronically signed by: Giovanni Gonzalez MD, [facility]([phone]), at 07/02/2021 10:11 AM Inocente [place] MD IM CT ORDERABLES documented in this encounter Visit Diagnoses Diagnosis Mass of right parotid gland documented in this encounter Administered Medications Inactive Administered Medications - up to 3 most recent administrations Medication Order MAR Action Action Date Dose Rate Site iohexoL (Omnipaque) (350 mg/mL) solution 0-200 mL 0-200 mL, Intravenous, ONCE PRN, 1 dose, Starting on Beatriz 07/02/21 at 0852, Until Beatriz 07/02/21 at 0852, Per Protocol, Warning Vesicant/Irritant Medication , Radiology Contrast, Routine Given 07/02/2021 8:52 AM EDT 110 mLs documented in this encounter Care Teams Inbound Telemarketer Relationship Specialty Start Date End Date Alexander Adams MD [address] [place] [address] PCP - General 04/06/12 07/26/23 documented as of this encounter
--- OUTSIDE RECORDS SUMMARY | 2024-02-15 22:02 | XMS_ITS | Encounter Summary ---
[place] [address] Care Team Providers Care Biomedical Scientist Name Role Phone Alexander Adams MD Primary Care Provider [phone] Reason for Visit * Reason Comments Follow-up 6 month F/U CAD, VT, HTN, Medtronic ICD Encounter Details Date Type Department Care Team (Late st Contact Info) Description 09/29/2017 11:20 AM EDT Office Visit Cardiology at [address] [phone] Rudy Moralez Jr., MD [address] [place] [phone] Ventricular fibrillation- with Medtronic ICD implanted 2009; Essential hypertension; Coronary artery disease, angina presence unspecified, unspecified vessel or lesion type, unspecified whether iroquois or transplanted heart Social History Tobacco Use Types Packs/Day Years [...] Sign Reading Time Taken Comments Blood Pressure 136/68 09/29/2017 11:19 AM EDT Pulse 82 09/29/2017 11:14 AM EDT Temperature - - Respiratory Rate - - Oxygen Saturation - - Inhaled Oxygen Concentration - - Weight 80.7 kg (178 lb) 09/29/2017 11:14 AM EDT Height 172.7 cm (5' 8) 09/29/2017 11:14 AM EDT Body Mass Index 27.06 09/29/2017 11:14 AM EDT documented in this encounter Progress Notes * Rudy Moralez Jr., MD - 09/29/2017 11:20 AM EDT Subjective: Patient ID: Liane Cole is a 71 y.o. female. Chief Complaint Patient presents with ??? Follow-up 6 month F/U CAD, VT, HTN, Medtronic ICD HPI She is feeling well and doing her usual activities comfortably. She has an occasional brief flutter but no prolonged episodes. She denies chest pain or worsening dyspnea. She has had no dizziness, edema, PND or orthopnea. She has not felt any ICD discharges. Review of Systems denies other issues Allergies Allergen Reactions ??? Lisinopril Anaphylaxis ??? [...] Propoxyphene N-Acetaminophen Nausea And Vomiting Current Outpatient Prescriptions Medication Sig Dispense Refill ??? acetaminophen (TYLENOL) 500 mg Tablet Take 1,000 mg by mouth every 6 hours as needed for Pain. ??? valsartan (DIOVAN) 40 mg Tablet Take 40 mg by mouth daily. ??? thiamine 100 mg Tablet Take 100 mg by mouth daily. ??? insulin lispro (HUMALOG) Solution Inject 35-40 [...] mg Tab 200 mg PO Once daily ??? insulin glargine (LANTUS) Solution Inject 28 Units subcutaneously daily. PRN for pump failure 10 mL prn No current facility-administered medications for this visit. Patient Active Problem List Diagnosis ??? Ventricular fibrillation- with Medtronic ICD implanted 200906/21/2009 [facility]--- VF presenting, ROSC post shock by EMS, intubated; Dual chamber ICD - 07/02/2009 Medtronic John II VR Model# [id number], Serial# [id number] ??? CAD, out of hosp arrest and [...] - Insulin pump Objective: Physical Exam BP 136/68 (BP Location (NBP): Left arm, Patient Position: Standing) Pulse 82 Ht 172.7 cm (5' 8) Wt 80.7 kg (178 lb) BMI 27.06 kg/m2 NAD No JVD/HJR Chest clear Cor RR, no murmur Abd benign Ext no edema Interrogation: VT 0 VT-NS 55 VF 0 Mode VVI 40 Ventricular Impedance (ohms) 741, defib 45 Threshold (volts) x P/R (mVolts) 3.0 % paced 0 Battery 2.75 V charge time 10.5 s Rate Responsiveness adequate for level of activity Electrogram clean Reprogramming: none Assessment and Plan: Normal ICD function Brief NSVT- minimal symptoms- continue to monitor Well controlled angina Good BP Follow up 6 months documented in this encounter Plan of Treatment Upcoming Encounters Date Type Department Care Team (Late st Contact Info) Description 02/29/2024 10:00 AM EST Office Visit Cardiology at [address] [phone] Ruben Hartman, LAURA [facility] [place] [address] 04/26/2024 10:00 AM EST Hospital Encounter Non-Invasive [place] [address] Arrived 09/24/2024 4:00 PM EDT Office Visit Cardiology at [address] [phone] Nathaniel Keita MD [facility] [place] [address] documented as of this encounter Visit Diagnoses Diagnosis Ventricular fibrillation- with Medtronic ICD implanted 2009 Ventricular fibrillation Essential hypertension Unspecified essential hypertension Coronary artery disease, angina presence unspecified, unspecified vessel or lesion type, unspecified whether iroquois or transplanted heart documented in this encounter Care Teams Biomedical Scientist Relationship Specialty Start Date End Date Alexander Adams MD [address] [place] [address] PCP - General 04/06/12 07/26/23 documented as of this encounter
--- OUTSIDE RECORDS SUMMARY | 2024-02-15 22:02 | XMS_ITS | Encounter Summary ---
[place] [address] Care Team Providers Care Debt Collection Specialist Name Role Phone Alexander Adams MD Primary Care Provider [phone] Encounter Details Date Type Department Care Team (Latest Contact Info) Description 08/05/2022 10:00 AM EDT - 08/05/2022 11:59 PM EDT Hospital Encounter Non-[place] [phone] Discharge Disposition: Home Social History Tobacco Use [...] 10:00 AM EST Office Visit Cardiology at [address] [phone] Ruben Hartman PA [facility] [place] [address] 04/26/2024 10:00 AM EST Hospital Encounter Non-[place]vasive [place] [address] Arrived 09/24/2024 4:00 PM EDT Office Visit Cardiology at [address] [phone] Nathaniel Keita MD [facility] [address] [place] [address] documented as of this encounter Procedures Procedure Name Priority Date/Time Associated Diagnosis Comments PRO ICD INTERROGATION REMOTE UP TO 90 DAYS Routine 06/09/2022 10:22 AM EST documented in this encounter Results * Cardiac Device Check - Remote (06/09/2022 10:22 AM EST) Anatomical Region Laterality Modality Other 06/09/2022 10:2 2 AM EST Ifeanyi Pardo MD IMPLANTABLE CARDIAC DEVICE documented in this encounter Visit Diagnoses Not on filedocumented in this encounter Care Teams Debt Collection Specialist Relationship Specialty Start Date End Date Alexander Adams MD [address] [place] [address] PCP - General 04/06/12 07/26/23 documented as of this encounter
--- OUTSIDE RECORDS SUMMARY | 2024-02-15 22:02 | XMS_ITS | Encounter Summary ---
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 [place] [address] Referral ID Status Reason Start Date Expiration Date V isits Requested Visits Authorized [id number] Closed Consult, Test & Treat 05/28/2021 05/28/2022 1 1 Encounter Details Date Type Department Care Team (Late st Contact Info) Description 07/02/2021 11:40 AM EDT Office [place] [address] Inocente Phoenix MD [facility] [place] [address] Mass of right parotid gland Social History Tobacco Use Types Packs/Day Years [...] Sign Reading Time Taken Comments Blood Pressure - - Pulse 96 07/02/2021 11:25 AM EDT Temperature - - Respiratory Rate 16 07/02/2021 11:25 AM EDT Oxygen Saturation 100% 07/02/2021 11:25 AM EDT Inhaled Oxygen Concentration - - Weight 77.1 kg (170 lb) 07/02/2021 11:25 AM EDT Height 172.7 cm (5' 8) 07/02/2021 11:25 AM EDT Body Mass Index 25.85 07/02/2021 11:25 AM EDT documented in this encounter Progress Notes * Inocente Phoenix MD - 07/02/2021 11:40 AM EDT [facility] OTOLARYNGOLOGY NEW PATIENT CONSULTATION I was asked to see Liane Cole in consultation by Domenico Perez for right parotid mass. History was obtained through review of the relevant records, discussion with referring physician and/or patient interview. History of present illness: This is a 75 y.o. 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 Has been seeing Dr. Perez for this Had a CT in the past at [facility], we do not have this image in our system. She does not think it has gotten any bigger, but she does think its fluctuant. Has been biopsied twice with no specific diagnosis. Most recent one within the past month. Does not cause any pain. No skinchanges. No difficulty with swallowing. No ear problems. No eye twitching. No drooping of the lip. No facial paralysis. No fever, chills or night sweats. No other lumps or bumps on the face or neck. Multiple orthopedic surgeries. Most recent major surgery was 7 years ago. No head and neck surgeries. Occasionally has a glass of wine. Hasn't smoked since 1975, smoked 3 packs a day for 5 years, 15 pack year hx. No skin cancers on the head and neck in the past. Patient only interested in surgery ifabsolutely necessary. 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 She lives in [place] alone withher cat named Loree. PROBLEM LIST Patient Active Problem List Diagnosis Code ??? CAD, out of hosp arrest and 2v CABG in 2009, preserved LV function I25.10 ??? 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 Gastroesophageal reflux disease K21.9 ??? Hypertension I10 ??? Ventricular fibrillation- with Medtronic ICD implanted 2009 I49.01 PAST MEDICAL HISTORY Past Medical History: Diagnosis Date ??? Allergic state ??? Allergy ??? Arthritis ??? CAD (coronary artery disease) ??? Cardiac disease 2010 Hear attack ??? Diabetes mellitus ??? Diabetic oculopathy ??? DM eyes ??? GERD (gastroesophageal reflux disease) ??? Hyperlipidemia ??? Hypertension ??? [place] (myocardial infarction) 2009 ??? Neuropathy ??? 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 Smoking status: Former Smoker Types: Cigarettes Quit date: 06/20/1975 Years since quittin.0 ??? Smokeless tobacco: Never Used Substance Use Topics ??? Alcohol use: No MEDICATIONS Current Outpatient Medications on File Prior to Visit Medication Sig Dispense Refill ??? cyanocobalamin, vitamin B-12, 500 mcg Tablet Take 1,000 mcg by mouth daily. ??? cholecalciferol, Vitamin D3, 5,000 unit Tablet Take 5,000 Units by mouth daily. ??? loratadine (CLARITIN) 10 mg Tablet Take 10 mg by mouth daily as needed. ??? acetaminophen (TYLENOL) 500 mg Tablet Take [...] muscle as needed. 1 each prn ??? aspirin 81 mg chewable tablet Take 81 mg by mouth daily. ??? Pyridoxine (VITAMIN B-6) 200 mg Tab 200 mg PO Once daily Current Facility-Administered Medications on File Prior to Visit Medication Dose Route Frequency Provider Last Rate Last Admin ??? [COMPLETED] iohexoL (Omnipaque) (350 mg/mL) solution 0-200 mL 0-200 mL Intravenous Once PRN Brittaney Pearl MD 110 mL at 07/02/21 0852 ALLERGIES Allergies Allergen Reactions ??? Lisinopril Anaphylaxis ??? Amiodarone Other (See Comments) fatigue and dsypnea ??? Carvedilol dizzy ??? Ibandronate Sodium multiple joint aches and edema ??? Metoprolol dizzy ??? Adhesive ??? Adhesive Tape ??? Alendronate Sodium Other [...] RASH ??? Propoxyphene N-Acetaminophen Nausea And Vomiting ROS 8 point Review of Systems was normal except for pertinent positives and negatives included in the History of Present Illness. PHYSICAL EXAMINATION Physical Examination: VITALS - Pulse 96, resp. rate 16, height 172.7 cm (5' 8), weight 77.1 kg (170 lb), SpO2 100 %. GENERAL - Well dressed and well nourished. - Breathing comfortably without stridor. - No acute distress. FACE - Full and symmetric facial movement. - No dysmorphic facial features. EYES - Periocular structures and conjunctiva healthy without lesions. - Pupils are equal, round, and reactive to light. - Extraocular movement is full and intact. - No evidence of nystagmus. EARS Left: - Auricle normal exam. - External auditory canal normal exam. - Tympanic membrane champion and translucent. Right: - Auricle normal exam. - External auditory canal normal exam. - Tympanic membrane champion and translucent. NOSE - Patent anteriorly with adequate airflow, healthy pink mucosa. - Septal spur on right. - Inferior turbinates normal exam. MOUTH - Lips and gingiva pink, moist, without lesions. - Upper denture. Partial bridge, bottom left. - Tongue and floor of mouth soft without lesions or masses. - Hard palate without lesions. SALIVARY - right tail of parotid mass 3x 2.5 non adherent to the skin, mobile. - Normal exam of the submandibular glands. PHARYNX - Soft palate without lesions. - Uvula is midline. - Oropharynx symmetric. NECK - Soft, supple, without significant lymphadenopathy. - Thyroid gland without masses or asymmetry. - Trachea midline without deviation. SKIN - Skin survey of the head and neck is without concerning lesion. NEURO - Cranial nerves II-XII intact and symmetric. - Responds appropriately to questions. PSYCHE - Normal mood and affect. PROCEDURES - REVIEW OF IMAGES/STUDIES 07/02/2021 EXAMINATION: CT NECK SOFT TISSUE W CONTRAST (GENERIC) ?? CLINICAL HISTORY: Neck mass, nonpulsatile; Right parotid mass. Right parotid mass for many years, FNA x 2 non-diagnostic. ?? TECHNIQUE: CT neck performed after the intravenous administration of contrast. Administered 110.0 ml of OMNIPAQUE 350.00 mg/ml. ?? COMPARISON: None ?? FINDINGS: There is an enhancing heterogeneous mass [...] to discern in the setting of contrast. ?? No additional primary mass lesion throughout the neck. ?? No cervical lymphadenopathy. ?? The visualized portions of the lungs show no pulmonary nodules. No osseous abnormalities to suggest metastases. The visualized portions the brain are grossly normal. ?? Incidental nonobstructing mucus retention cyst in the right maxillary sinus. ? IMPRESSION 1. A nonspecific heterogeneous 3.2 cm right parotid mass with adjacent parotid and periparotid edema with equivocal internal hemorrhage in the setting of contrast. 2. No cervical lymphadenopathy. 3. No evidence of regional distant metastases. ASSESSMENT/RECOMMENDATIONS Liane Cole is a 75 y.o. female with right parotid mass. Patient counseled that given the lack of growth, symptoms and biopsies this is likely a benign mass. Unfortunately we will not likely know what the etiology of the mass is without taking it out. Patient is not interested in doing surgery at this time. Patient counseled that these masses can transform to a malignant mass so it should continue to be monitored. She would like to continue to being monitored with Dr. Perez. Will request original imaging to compare. - The patient expressed understanding of these points and agreement with the plan, and all questions that were asked were answered to the patient's satisfaction. Plan: > Continue monitoring mass with Dr. Perez. > Follow up with us PRN. > Patient should call if their symptoms worsen or fail to improve, if new concerning symptoms arise, or if they have any questions or concerns regarding their treatment. I appreciate the opportunity to be involved in Ms. Cole's care. Yadira Mayo PA-C [place], [place] [address] Office 07/02/2021 [facility] Otolaryngology Attending Note Patient seen and examined with the Associate Provider. I have reviewed and agree with the history, physical, and assessment and plan. Pertinent Exam Findings/Procedure Performed/Imaging Reviewed This patient presents with a several year history of a right parotid mass. No real symptoms, no facial weakness, pain, blepharospasm, etc. CT of the neck was reviewed and there is no adenopathy or evidence of infiltration of tumor. On exam she has normal facial nerve function. 3 cm mass in the left parotid. FNA was reviewed at [facility] and no neoplastic cells although low cellularity. She has had a prior FNA one year ago which was also low cellularity with malignancy (although we donot have those records). Assessment/Recommendations Stable parotid mass over a several year period. Statistically and given her history and imaging/biopsy results this is very likely benign. I did explain to her that I could not say 100% without removing the mass however, I would be comfortable with continued clinical monitoring. I did recommend that she continue to follow up with Dr. Perez and to call my office if she should notice any changes such as progression in size, pain, facial weakness, or other masses/adenopathy. Follow up as needed. documented in this encounter Plan of Treatment Upcoming Encounters Date Type Department Care Team (Late st Contact Info) Description 02/29/2024 10:00 AM EST Office Visit Cardiology at [address] [phone] Ruben Hartman, LAURA [facility] [place] [address] 04/26/2024 10:00 AM EST Hospital Encounter Non-[place] [address] Arrived 09/24/2024 4:00 PM EDT Office Visit Cardiology at [address] [phone] Nathaniel Keita MD [facility] [place] [address] documented as of this encounter Visit Diagnoses Diagnosis Mass of right parotid gland documented in this encounter Care Teams Anesthesiologist Attending Relationship Specialty Start Date End Date Alexander Adams MD [address] [place] [address] PCP - General 04/06/12 07/26/23 documented as of this encounter
--- OUTSIDE RECORDS SUMMARY | 2024-02-15 22:02 | XMS_ITS | Encounter Summary ---
Author Organization [facility] [place] [address] Care Team Providers Care Publications Manager Name Role Phone Alexander Adams MD Primary Care Provider [phone] Reason for Visit * Reason Onset Date Comments Medication Refill 09/23/2016 Encounter Details Date Type Department Care Team (Late st Contact Info) Description 09/23/2016 [place] [address] Donna Driscoll LNA Social History Tobacco Use Types Packs/Day Years [...] 10:00 AM EST Office Visit Cardiology at [address] [phone] Ruben Hartman, LAURA [facility] [place] [address] 04/26/2024 10:00 AM EST Hospital Encounter Non-Invasive Cardiology Lab [facility] [place] [address] Arrived 09/24/2024 4:00 PM EDT Office Visit Cardiology at [address] [place] [address] Nathaniel Keita MD [facility] [place] [address] documented as of this encounter Visit Diagnoses Not on filedocumented in this encounter Care Teams Publications Manager Relationship Specialty Start Date End Date Alexander Adams MD [address] [place] [address] PCP - General 04/06/12 07/26/23 documented as of this encounter
--- OUTSIDE RECORDS SUMMARY | 2024-02-15 22:02 | XMS_ITS | Encounter Summary ---
[place] [address] Care Team Providers Care Executive Director Global Brand Marketing Name Role Phone Alexander Adams MD Primary Care Provider [phone] Encounter Details Date Type Department Care Team (Latest Contact Info) Description 12/23/2020 - 12/23/2020 11:59 PM EDT Hospital Encounter Non-[place] [address] Vimal Meyers MD [facility] [place] [address] Ventricular fibrillation Discharge Disposition: Home Social History [...] mg Capsule Taking 2 capsules daily 11/05/2020 cyanocobalamin, vitamin B-12, 500 mcg Tablet Take [...] AM EST Office Visit Cardiology at [address] [phone] Ruben Hartman PA [facility] [place] [address] 04/26/2024 10:00 AM EST Hospital Encounter Non-[place]vasive [place] [address] Arrived 09/24/2024 4:00 PM EDT Office Visit Cardiology at [address] [phone] Nathaniel Keita MD [facility] [place] [address] documented as of this encounter Procedures Procedure Name Priority Date/Time Associated Diagnosis Comments ICD INTERROGATION 3 MONTH Routine 12/24/2020 7:31 AM EDT Ventricular fibrillation documented in this encounter Results * ICD INTERROGATION 3 MONTH (12/24/2020 7:31 AM EDT) Anatomical Region Laterality Modality Other Narrative 12/24/2020 8:31 AM EDT Cardiac Device Remote Monitoring Report Summary [employer] Carelink Device: ICD Model: VISIA AF Battery: 3.02 v, estimated longevity 10 years 3 months Pacing percentage: minimal RV pacing Events: The presenting rhythm is ventricular sensed Brief ventricular high rate episodes are observed Impression Normal device function Follow Up As per schedule - in-clinic and remote VIMAL MEYERS MD 12/24/20 Vimal Meyers MD IMPLANTABLE CARDIAC DEVICE documented in this encounter Visit Diagnoses Diagnosis Ventricular fibrillation documented in this encounter Care Teams Executive Director Global Brand Marketing Relationship Specialty Start Date End Date Alexander Adams MD [address] [place] [address] PCP - General 04/06/12 07/26/23 documented as of this encounter
--- OUTSIDE RECORDS SUMMARY | 2024-02-15 22:02 | XMS_ITS | Encounter Summary ---
[place] [address] Care Team Providers Care Mobile Marketing Manager Name Role Phone Alexander Adams MD Primary Care Provider [phone] Encounter Details Date Type Department Care Team (Late st Contact Info) Description 04/08/2016 Telephone Cardiology at [address] [phone] Katelyn Cespedes Social History Tobacco Use Types Packs/Day Years [...] encounter Miscellaneous Notes * Telephone Encounter - Katelyn Byrd - 04/08/2016 9:43 AM EST Spoke with patient. She has transferred her care to a local [facility], Dr. Smith in [place], [place].They will be following her ICD as well. documented in this encounter Plan of Treatment Upcoming Encounters Date Type Department Care Team (Late st Contact Info) Description 02/29/2024 10:00 AM EST Office Visit Cardiology at [address] [phone] Ruben Hartman PA [facility] [place] [address] 04/26/2024 10:00 AM EST Hospital Encounter Non-Invasive [place] [address] Arrived 09/24/2024 4:00 PM EDT Office Visit Cardiology at [address] [phone] Nathaniel Keita MD [facility] [place] [address] documented as of this encounter Visit Diagnoses Not on filedocumented in this encounter Care Teams Mobile Marketing Manager Relationship Specialty Start Date End Date Alexander Adams MD [address] [place] [address] PCP - General 04/06/12 07/26/23 documented as of this encounter
--- OUTSIDE RECORDS SUMMARY | 2024-02-15 22:02 | XMS_ITS | Encounter Summary ---
Author Organization [facility] Address [facility] [place] [address] Care Team Providers Care Automotive Worker Name Role Phone Alexander Adams MD Primary Care Provider [phone] Reason for Visit * Reason Comments Establish Care Medtronic ICD * Consultation (Routine) - Closed Specialty Diagnoses / Procedures Referred By Contact Referred To Contact Electrophysiology / Cardiology Diagnoses Ventricular fibrillation StormsNathaniel MD [facility] [place] [address] [facility] Cardiology [address] [place] [phone] Referral ID Status Reason Start Date Expiration Date V isits Requested Visits Authorized [id number] Closed Consult, Test & Treat 2018 2019 1 1 Encounter Details Date Type Department Care Team (Late st Contact Info) Description 12/13/2018 2:20 PM EDT Office Visit Cardiology at [address] [phone] Parvez Meyers MD [facility] [place] [address] ICD (implantable cardioverter-defibril lator) in place Social History Tobacco Use Types Packs/Day Years [...] Sign Reading Time Taken Comments Blood Pressure 137/57 12/13/2018 2:33 PM EDT Pulse 78 12/13/2018 2:29 PM EDT Temperature - - Respiratory Rate - - Oxygen Saturation - - Inhaled Oxygen Concentration - - Weight 78 kg (172 lb) 12/13/2018 2:29 PM EDT Height 172.7 cm (5' 8) 12/13/2018 2:29 PM EDT Body Mass Index 26.15 12/13/2018 2:29 PM EDT documented in this encounter Patient Instructions * Patient Instructions* Parvez Meyers MD - 12/13/2018 2:20 PM EDT Images from the original note were not included. It was nice to see you in the Cardiac Electrophysiology Clinic today. We discussed the ICD, the role of the battery replacement for the ICD You should continue with your medicines as before I made no changes to your medicines today I will arrange for the followin) ICD replacement under moderate sedation If you do not hear from our schedulers in the next 2 weeks, call [phone] and speak to'Ruma', ' Laura' For any questions, call my office: [phone] To access your health care information, go to the web at: [email or web address] (you will need to register) For educational materials: [email or web address], Clinical Cardiac Electrophysiology, [facility], [facility] A Healthy Heart: After Your Visit Heart disease occurs when the vessels that supply oxygen-rich blood to your heart become narrow or blocked. A heart attack happens when blood flow is completely blocked. A high-fat diet, smoking, andother factors increase the risk of heart disease. Abnormal heart rhythms can occur in the presence and absence of other heart disease. You can do lots of things to keep your heart healthy. It may not be easy, but you can change your diet, exercise more, and quit smoking. These steps really work to lower your chance of heart disease. Follow-up care is a mauricio part of your treatment and safety. Be sure to make and go to all appointments, and call your doctor if you are having problems. It???s also a good idea to know your test results and keep a list of the medicines you take. A heart-healthy lifestyle is important for everyone, not just for people with existing health problems. It can help you keep your heart and blood vessels healthy. If you already have heart or blood vessel problems, such as high cholesterol or high blood pressure, a healthy lifestyle can help you lower your risk of a heart attack and stroke. If you have children, you can be their healthy role model. If your habits are healthy, your children are more likely to build those habits in their own lives. Don't smoke Everyone who uses tobacco would benefit from quitting. When you quit smoking--no matter how old youare--you will decrease your risk of heart attack, stroke, and many other health problems. For help with quitting smoking, see these topics: Your Care Instructions How can you care for yourself at home? Diet ?? Use less salt when you cook and eat. This helps lower your blood pressure. Taste food before salting. Add only a little salt when you think you need it. With time, your taste buds will adjust to less salt. ?? Eat fewer snack items, fast foods, canned soups, and other high-salt, high- fat, processed foods. ?? Read food labels and try to avoid saturated and trans fats. They increase your risk of heart disease by raising cholesterol levels. ?? Limit the amount of solid fat--butter, margarine, and shortening--you eat. Use olive, peanut, orcanola oil when you cook. Bake, broil, and steam foods instead of frying them. ?? Eating fish can lower your risk for heart disease. Eat at least 2 servings of fish a week. Mcallen, mackerel, valdez, sardines, and chunk light tuna are very good choices. These fish contain omega-3 fatty acids. ?? Eat a variety of fruit and vegetables every day. Dark green, deep orange, red, or yellow fruits and vegetables are especially good for you. Examples include spinach, carrots, peaches, and berries.You may need to eat these in moderation if you are taking coumadin or warfarin ?? Foods high in fiber can reduce your cholesterol and provide important vitamins and minerals. High-fiber foods include whole-grain cereals and breads, oatmeal, beans, brown rice, citrus fruits, andapples. ?? Limit drinks and foods with added sugar. These include candy, desserts, and soda pop. Lifestyle changes ?? If your doctor recommends it, get more exercise. Walking is a good choice. Bit by bit, increase the amount you walk every day. Try for at least 30 minutes on most days of the week. You also may want to swim, bike, or do other activities. ?? Do not smoke. If you need help quitting, talk to your doctor about stop- smoking programs and medicines. These can increase your chances of quitting for good. Quitting smoking may be the most important step you can take to protect your heart. It is never too late to quit. You will get health benefits right away. ?? Limit alcohol to 2 drinks a day for men and 1 drink a day for women. Too much alcohol can cause health problems. Medicines ?? Take your medicines exactly as prescribed. Call your doctor if you think you are having a problem with your medicine. ?? If your doctor recommends aspirin, take the amount directed each day. Make sure you take aspirinand not another kind of pain reliever, such as acetaminophen (Tylenol). If you take ibuprofen (suchas Advil or Motrin) for other problems, take aspirin at least 2 hours before taking ibuprofen. When should you call for help? Call 911 if you have symptoms of a heart attack. These may include: ?? You have chest pain or pressure. This may occur with: ?? Chest pain or pressure, or a strange feeling in the chest. ?? Sweating. ?? Shortness of breath. ?? Pain, pressure, or a strange feeling in the back, neck, jaw, or upper belly or in one or both shoulders or arms. ?? Lightheadedness or sudden weakness. ?? A fast or irregular heartbeat. After you call 911, the bending machine operator may tell you to chew 1 adult-strength or 2 to 4 low-dose aspirin. Wait for an ambulance. Do not try to drive yourself. Watch closely for changes in your health, and be sure to contact your doctor if: ?? Your symptoms are slowly getting worse. ?? You do not get better as expected. Where can you learn more? Visit our health information library at [email or web address]/healthinfo. You can alsoview health information on [employer], your personal patient account. Log in or sign up today. Enter F075 in the search box to learn more about A Healthy Heart: After Your Visit. ?? [id number] [employer] documented in this encounter Progress Notes * Parvez Meyers MD - 12/13/2018 2:20 PM EDT Images from the original note were not included. Section of Cardiology/Cardiac Electrophysiology Clinical Cardiac Electrophysiology Consult Patient ID Liane Cole 1945 [id number] Liane Cole is referred to the EP clinic by Dr Keita Chief Complaint ICD approaching/at KP History This is a 73 y.o. female following up/being seen in clinic for an ICD that is at elective replacement voltage. 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 She was placed on amiodarone for a period, but had intolerable nausea on this and it was discontinued, so her beta beto was maximised instead. Fortunately, she has done well on this, with no recurrent ventricular arrhythmias. The device is a Medtronic single chamber ICD that has been programmed to VVI 40. She has remained active, with no significant limitations to activity. There have been no ICD discharges since her initial implant. No lightheadedness, dizziness or syncope. No chest pain. No heart failure symptoms (no edema, PND, orthopnea). 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 No heavy lifting; can climb one flight. No pain or discomfort at the site. Problem List Patient Active Problem List Diagnosis ??? Ventricular fibrillation- with Medtronic ICD implanted 200906/21/2009 [facility]--- VF presenting, ROSC post shock by EMS, intubated; Dual chamber ICD - 07/02/2009 Medtronic John II VR Model# [id number], Serial# [id number] ??? CAD, out of hosp arrest and [...] laser surgery, - microalbuminuria - Insulin pump Review of Systems Review of Systems Cardiovascular: Positive for irregular heartbeat (rare). Musculoskeletal: Positive for back pain. Meds Current Outpatient Medications Medication Sig Dispense Refill ??? cholecalciferol, Vitamin D3, 5,000 unit Tablet [...] No current facility-administered medications for this visit. Social History Social History Socioeconomic History ??? Marital status: Spouse name: None ??? Number of children: None ??? Years of education: None ??? Highest education level: None Occupational History ??? 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 Financial resource strain: None ??? Food insecurity: Worry: None Inability: None ??? Transportation needs: Medical: None Non-medical: None Tobacco Use ??? Smoking status: Former Smoker Types: Cigarettes Last attempt to quit: 06/20/1975 Years since quittin.5 ??? Smokeless tobacco: Never Used Substance and Sexual Activity ??? Alcohol use: No ??? Drug use: None ??? Sexual activity: None Lifestyle ??? Physical activity: Days per week: None Minutes per session: None ??? Stress: None Relationships ??? Social connections: Talks on phone: None Gets together: None Attends spiritism service: None Active member of club or organization: None Attends meetings of clubs or organizations: None Relationship status: None ??? Intimate partner violence: Fear of current or ex partner: None Emotionally abused: None Physically abused: None Forced sexual activity: None Other Topics Concern ??? None Social History Narrative ??? None Family History Family History Problem Relation Age of Onset ??? Heart Disease Brother ??? Heart Disease Brother ??? Diabetes Mother ??? Hypertension Mother ??? Stroke Mother ??? Heart Disease Mother ??? Hypertension Father ??? Heart Disease Father ??? Diabetes Maternal Uncle ??? Diabetes Maternal Grandmother ??? Heart Disease Maternal Grandmother ??? Heart Disease Maternal Grandfather ??? Hypertension Paternal Grandmother ??? Heart Disease Paternal Grandmother ??? Diabetes Maternal Uncle ??? Amblyopia Neg Hx ??? Blindness Neg Hx ??? Cancer Neg Hx ??? Cataracts Neg Hx ??? Glaucoma Neg Hx ??? Macular Degeneration Neg Hx ??? Retinal Detachment Neg Hx ??? Strabismus Neg Hx ??? Thyroid Disease Neg Hx Exam Most Recent Vitals: 12/13/18 1433 BP: 137/57 Pulse: Physical Exam Constitutional: She is oriented to person, place, and time. She appears well- developed. No distress. Body mass index is 26.15 kg/m??. Pulmonary/Chest: Effort normal. Well healed left sided ICD site Abdominal: Soft. Neurological: She is alert and oriented to person, place, and time. Skin: Skin is warm and dry. I personally performed a device interrogation Likewise Software JOHN II VR Serial Number [id number] Battery 2.63 v, KP 2.63v RV lead 703 ohms, RV 41 ohms, SVC 52 ohms No noise on RV lead maneuvers with maneuvers Impression Liane Cole is seen in the EP clinic for follow up of her ICD. The ICD is at elective replacement voltage, although the elective replacement indicator has not yet treated. We had a discussion about the role of pulse generator change, and the approach used. There appearedto be no issues concerning for lead integrity, although she understands that if there were issues during the procedure she may end up with an additional lead. For now I think we should start planning for a pulse generator change under moderate sedation (she has mild back pain, I believe she would tolerate this procedure under moderate sedation), in the next several weeks. 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 documented in this encounter Plan of Treatment Upcoming Encounters Date Type Department Care Team (Late st Contact Info) Description 02/29/2024 10:00 AM EST Office Visit Cardiology at [address] [phone] Ruben Hartman PA [facility] [place] [address] 04/26/2024 10:00 AM EST Hospital Encounter Non-Invasive Cardiology Lab [facility] [place] [address] Arrived 09/24/2024 4:00 PM EDT Office Visit Cardiology at [address] [phone] Nathaniel Keiat MD [facility] [place] [address] documented as of this encounter Procedures Procedure Name Priority Date/Time Associated Diagnosis Comments ELECTROPHYSIOLOGY PROCEDURE Routine 01/12/2019 9:43 AM EDT ICD (implantable cardioverter-defi brillator) in place documented in this encounter Results * ELECTROPHYSIOLOGY PROCEDURE (01/12/2019 9:43 AM EDT) Anatomical Region Laterality Modality Other Narrative 01/12/2019 10:24 AM EDT VVIR ICD Pulse Generator Change, Moderate Sedation Indications: Cardiomyopathy with LVEF <=35% and Congestive Heart Failure, ICD at KP Operators: ??PARVEZ MEYERS MD Procedure: ??The patient was brought to the Electrophysiology Lab in the fasting state and continuous electrocardiographic monitoring was instituted. ??Moderate sedation was performed with incremental doses of midazolam and fentanyl. The left subclavicular fossa was prepped and draped in the usual sterile fashion and a 2:3 mixture of 2% lidocaine and 0.5% bupivicaine was instilled for local anesthesia and postoperative analgesia through the old incision scar. ??The incision was made and the dissection was carried down to the level of the old pocket, which was entered with a combination of ?? blunt and sharp dissection and cautious use of 'PlasmaBlade' electrocautery. The old device was liberated from the pocket ( there was extensive scar tissue). The old lead(s) were intact where visible (although only a short portion of lead could be mobilised secondary to extensive scar tissue) The old lead(s) were detached from the old device and tested with the PSA, there were satisfactory lead parameters. After flushing the pocket extensively with Neosporin antibiotic solution, the old lead(s) were attached to a new device. A 'tug' test was performed; it was difficult to mobilise enough proximal lead to insert into the header. The old lead and new device were placed in the previously formed pocket with the electrode situated beneath it after it had been flushed with Neosporin antibiotic solution. ?? Final Parameters: (Old) Ventricular electrode: ?? MedMaxta Sprint Quattro MRI Model# 6947-58cm, Serial #[id number] Implanted 07/01/2009 ? Bipolar, steroid-tipped, active-fixation, DF-1 lead ? Access: ?Axillary vein ? Location: ?? Right ventricular apex ? R wave, PSA: ?3.0 mV (chronic) ? R wave, ICD: ?4.8 mV (progammed tip to RV coil) ? Pacing threshold, PSA: 0.6 V at 0.5 ms ? Pacing threshold, ICD: 0.75 V at 0.4 ms ? Impedance, PSA: ??650 ohms ? Impedance, ICD: ??551 ohms ? HVB Impedance ?? 38 ohms ? SVC Impedance ?? 49 ohms (New)Pulse generator: ? Medtronic VISIA AF MRI ??Model# MNAH2R0, Serial# [id number] Implanted 01/12/2019 ? VVIR ICD ? Location: ?? Subcutaneous Defibrillation testing was not performed. Explanted device Medtronic [id number] Serial Number [id number] Implanted 07/01/2009, explanted 01/12/2019 The wound was closed with interrupted stitches of 2-0 Monocryl, continuous 2-0 Monocryl (ie two layers) ??and the skin was closed with a subcuticular stitch of 4-0 Monocryl. ??Medical adhesive (Dermabond) was applied to the incision which was covered with a Mepilex dressing. ??Cinefluoroscopy documented the final implant positions. Antibiotic: 2 grasm cefazolin IV at 0831 Incision time: 0855 Fluoroscopy time: 0 seconds Sedation Start: 836 Sedation End: 942 Estimated ??Blood loss: < 10 cc The patient tolerated the procedure well. PARVEZ MEYERS MD was the switch operators supervisor, present for the entire sedation period and performed the procedure without a fellow or resident. Parvez Meyers MD EP PROCEDURE ORDERAB LES documented in this encounter Visit Diagnoses Diagnosis ICD (implantable cardioverter-defibrillator) in place ICD (implantable cardioverter-defibrillator) in place documented in this encounter Care Teams Automotive Worker Relationship Specialty Start Date End Date Alexander Adams MD [address] [place] [address] PCP - General 04/06/12 07/26/23 documented as of this encounter
--- OUTSIDE RECORDS SUMMARY | 2024-02-15 22:02 | XMS_ITS | Encounter Summary ---
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 / 2nd opinion Domenico Perez MD [address] [place] [address] [place] [address] Inocente Phoenix MD [facility] [place] [address] Referral ID Status Reason Start Date Expiration Date V isits Requested Visits Authorized [id number] Closed Consult, Test & Treat 05/28/2021 05/28/2022 1 1 Encounter Details Date Type Department Care Team (Late st Contact Info) Description 05/28/2021 Transcribe Orders [place] [phone] Domenico Perez MD [address] [place] [address] [place] [address] Mass of right parotid gland Social History [...] 10:00 AM EST Office Visit Cardiology at [address] [phone] Ruben Hartman, PA [facility] [place] [address] 04/26/2024 10:00 AM EST Hospital Encounter Non-[place]vasive [place] [address] Arrived 09/24/2024 4:00 PM EDT Office Visit Cardiology at [address] [phone] Nathaniel Keita MD [facility] [place] [address] Scheduled Referrals Name Type Priority Associated Diagnoses Orde r Schedule Referral to ENT Outpatient Referral Routine Mass of right parotid gland Ordered: 05/28/2021 documented as of this encounter Visit Diagnoses Diagnosis Mass of right parotid gland documented in this encounter Care Teams Roll Plugger Machine Operator Relationship Specialty Start Date End Date Alexander Adams MD [address] [place] [address] PCP - General 04/06/12 07/26/23 documented as of this encounter
--- OUTSIDE RECORDS SUMMARY | 2024-02-15 22:02 | XMS_ITS | Encounter Summary ---
[place] [address] Care Team Providers Care Pond Sawyer Name Role Phone Alexander Adams MD Primary Care Provider [phone] Encounter Details Date Type Department Care Team (Latest Contact Info) Description 05/02/2023 10:00 AM EST - 05/02/2023 11:59 PM [facility] Hospital Encounter Non-Invasive [place] [phone] Discharge Disposition: Home Social History Tobacco Use [...] 10:00 AM EST Office Visit Cardiology at [address] [phone] Ruben Hartman PA [facility] [place] [address] 04/26/2024 10:00 AM EST Hospital Encounter Non-Invasive [place] [address] Arrived 09/24/2024 4:00 PM EDT Office Visit Cardiology at [address] [phone] Nathaniel Keita MD [facility] [place] [address] documented as of this encounter Procedures Procedure Name Priority Date/Time Associated Diagnosis Comments PRO ICD INTERROGATION REMOTE UP TO 90 DAYS Routine 03/08/2023 10:37 AM EST documented in this encounter Results * Cardiac Device Check - Remote (03/08/2023 10:37 AM EST) Anatomical Region Laterality Modality Other 03/08/2023 10:3 7 AM EST Vimal Meyers MD IMPLANTABLE CARDIAC DEVICE documented in this encounter Visit Diagnoses Not on filedocumented in this encounter Care Teams Pond Sawyer Relationship Specialty Start Date End Date Alexander Adams MD [address] [place] [address] PCP - General 04/06/12 07/26/23 documented as of this encounter
--- OUTSIDE RECORDS SUMMARY | 2024-02-15 22:02 | XMS_ITS | Encounter Summary ---
[place] [address] Care Team Providers Care Operational Risk Analyst Name Role Phone Alexander Adams MD Primary Care Provider [phone] Reason for Visit * Reason Comments Follow-up Medtronic ICD device check Encounter Details Date Type Department Care Team (Late st Contact Info) Description 02/14/2019 8:30 AM EST Office Visit Cardiology at [address] [phone] Vimal Meyers MD [facility] [place] [address] ICD (implantable cardioverter-defibril lator) in place Social [...] Sign Reading Time Taken Comments Blood Pressure 154/70 02/14/2019 8:24 AM EST Pulse 78 02/14/2019 8:24 AM EST Temperature - - Respiratory Rate - - Oxygen Saturation - - Inhaled Oxygen Concentration - - Weight 81.2 kg (179 lb) 02/14/2019 8:24 AM EST Height 172.7 cm (5' 8) 02/14/2019 8:24 AM EST Body Mass Index 27.22 02/14/2019 8:24 AM EST documented in this encounter Progress Notes * Vimal Meyers MD - 02/14/2019 8:30 AM EST Images from the original note were not included. Section of Cardiology/Cardiac Electrophysiology [facility] Clinical Cardiac Electrophysiology Follow Up Patient ID Liane Cole [id number] Liane Cole is following up in EP clinic Chief Complaint ICD s/p pulse generator replacement History This is a 73 y.o. female following up/being seen in clinic for follow up after her recent ICD pulsegenerator change for an ICD that was elective replacement indicator. The procedure was performed on12 January 2019, and was uncomplicated. She was seen in the [facility] on 26 January for routine postop follow-up, her incision site appeared to be healing well at that time. She has been doing well since then and has resumed her normal activities. She returned to work within a couple of daysof her surgery. She was intolerant of amiodarone in the past. She is not currently on a beta- beto, she has had multiple adverse reactions. Otherwise she appears to be doing well, the incision site is healed nicely. No lightheadedness, dizziness or syncope. No chest pain. No heart failure symptoms (no edema, PND, orthopnea) Problem List Patient Active Problem List Diagnosis ??? Ventricular fibrillation- with Medtronic ICD implanted 200906/21/2009 [facility]--- VF presenting, ROSC post shock by EMS, intubated; Dual chamber ICD - 07/02/2009 Medtronic John II VR Model# [id number], Serial# [id number] (pulse generator replaced 01/12/2019) (Old) Ventricular electrode: Medtronic Sprint Quattro MRI Model# 6947-58cm, Serial #[id number] Implanted 07/01/2009 (New)Pulse generator: Medtronic VISIA AF MRI Model# [id number], Serial# [id number] Implanted 01/12/2019 ??? CAD, out of hosp arrest and [...] microalbuminuria - Insulin pump Review of Systems ROS Meds Current Outpatient Medications Medication Sig Dispense Refill ??? cyanocobalamin, vitamin [...] Socioeconomic History ??? Marital status: Spouse name: Not on file ??? Number of children: Not on file ??? Years of education: Not on file ??? Highest education level: Not on file Occupational History ??? 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 Financial resource strain: Not on file ??? Food insecurity: Worry: Not on file Inability: Not on file ??? Transportation needs: Medical: Not on file Non-medical: Not on file Tobacco Use ??? Smoking status: Former Smoker Types: Cigarettes Last attempt to quit: 06/20/1975 Years since quittin.6 ??? Smokeless tobacco: Never Used Substance and Sexual Activity ??? Alcohol use: No ??? Drug use: Not on file ??? Sexual activity: Not on file Lifestyle ??? Physical activity: Days per week: Not on file Minutes per session: Not on file ??? Stress: Not on file Relationships ??? Social connections: Talks on phone: Not on file Gets together: Not on file Attends christian service: Not on file Active member of club or organization: Not on file Attends meetings of clubs or organizations: Not on file Relationship status: Not on file ??? Intimate partner violence: Fear of current or ex partner: Not on file Emotionally abused: Not on file Physically abused: Not on file Forced sexual activity: Not on file Other Topics Concern ??? Not on file Social History Narrative ??? Not on file Family History Family History Problem Relation Age [...] Disease Neg Hx Exam Most Recent Vitals: 02/14/19 0824 BP: 154/70 Pulse: 78 Physical Exam Constitutional: She is oriented to person, place, and time. She appears well- developed. No distress. Body mass index is 27.22 kg/m??. Pulmonary/Chest: Left sided ICD site well healed Neurological: She is alert and oriented to person, place, and time. Skin: Skin is warm and dry. I personally reviewed the device interrogation Medtronic VISIA AF MRI VR Single-chamber ICD Programmed mode VVI lower rate limit 40 bpm R wave 7.5 mV, threshold 0.75 V 0.4 ms, pacing impedance 665 ohms RV pacing impedance 41 ohms, SVC impedance 54 ohms No significant arrhythmias Remaining longevity 11.3 years Impression Liane Cole is seen in the EP clinic for routine follow-up after her recent ICD pulse generator change. She recovered well from the procedure which was uncomplicated. Her ICD incision was checked a few weeks ago, and is healing nicely. Device function is normal today. She has been able to do remote downloads. No changes in medications. I do note that she is not currently on a beta-beto, she has had multiple adverse reactions. In the future, should it become necessary to start a beta- beto pindolol or nebivolol might be options. Recommendations / Plan A) No changes to current medications B) Routine follow-up in the ICD clinic at [place] in about 6 months time C) Continue to do 3 monthly remote downloads from her ICD D) Consideration for use of pindolol if she needs beta-beto therapy VIMAL MEYERS MD 15 minutes of this 20 minute encounter were spent in counselling, as described above 5minutes of time with device interrogation Cc: Alexander Adams MD documented in this encounter Plan of Treatment Upcoming Encounters Date Type Department Care Team (Late st Contact Info) Description 02/29/2024 10:00 AM EST Office Visit Cardiology at [address] [place] [address] Ruben Hartman, [facility] [place] [address] 04/26/2024 10:00 AM EST Hospital Encounter Non-Invasive Cardiology Lab [facility] [place] [address] Arrived 09/24/2024 4:00 PM EDT Office Visit Cardiology at [address] [place] [address] Nathaniel Keita MD [facility] [place] [address] documented as of this encounter Visit Diagnoses Diagnosis ICD (implantable cardioverter-defibrillator) in place documented in this encounter Care Teams Operational Risk Analyst Relationship Specialty Start Date End Date Alexander Adams MD [address] [place] [address] PCP - General 04/06/12 07/26/23 documented as of this encounter
--- OUTSIDE RECORDS SUMMARY | 2024-02-15 22:02 | XMS_ITS | Encounter Summary ---
[place] [address] Care Team Providers Care Wash Rack Operator Name Role Phone Alexander Adams MD Primary Care Provider [phone] Encounter Details Date Type Department Care Team (Latest Contact Info) Description 06/10/2021 9:08 AM EST - 06/10/2021 11:59 PM [facility] Hospital [place] [phone] Discharge Disposition: Home Social History Tobacco Use [...] g 4 times daily as needed. 06/09/2021 cyanocobalamin, vitamin B-12, 500 mcg Tablet Take [...] AM EST Office Visit Cardiology at [address] [phone] Ruben Hartman PA [facility] [place] [address] 04/26/2024 10:00 AM EST Hospital Encounter Non-Invasive [place] [address] Arrived 09/24/2024 4:00 PM EDT Office Visit Cardiology at [place] [address] [place] [phone] Nathaniel Keita MD [facility] [place] [address] documented as of this encounter Procedures Procedure Name Priority Date/Time Associated Diagnosis Comments NON-CLINCHING MACHINE OPERATOR FINAL REPORT Routine 06/10/2021 9:09 AM EST documented in this encounter Results * Non-Cloth Tearer Final Report (06/10/2021 9:09 AM EST) Non-Cloth Tearer Final Report [id number] ? Location: [facility]W The signing pathologist has (i) examined the relevant preparation(s) for the specimen(s) and (ii) rendered or confirmed the diagnosis(es). . ? Non-Cloth Tearer Final DIAGNOSIS Atypical Electronically signed by: ?Tracy GOMEZ, Brandyn Mendez Verified: ??06/13/2021 15:35 ??Pathologist Performed at: ??-[facility] Dept. of Pathology, [place], [place] DISCUSSION Parotid gland, right (FNA): Hypocellular aspirate; predominantly debris and white blood cells present. Rare atypical degenerated epithelioid cells noted. Scant cellularity precludes further characterization. CLINICAL INFORMATION CONSULTATION CASE Source: ? Parotid gland, right (FNA) Clinical History: ? Right parotid mass. Received 1 slide(s) labeled [id number] Received 0 block(s). Specimen collection date: ?05/19/2021. For the full text of the [facility] ([facility]) report(s), please refer to [facility] Tracking #: ? [id number] . Report to: [facility] Pathology & Laboratory Medicine Main [id number] [place] [address] LABORATORY 06/10/2021 9:09 AM EST Inocente Phoenix MD PATHOLOGY/CYTOLOGY ORDERABLES [facility] [address] documented in this encounter Visit Diagnoses Not on filedocumented in this encounter Care Teams Wash Rack Operator Relationship Specialty Start Date End Date Alexander Adams MD [address] [place] [address] PCP - General 04/06/12 07/26/23 documented as of this encounter
--- OUTSIDE RECORDS SUMMARY | 2024-02-15 22:02 | XMS_ITS | Encounter Summary ---
[place] [address] Care Team Providers Care Cash Register Balancer Name Role Phone Alexander Adams MD Primary Care Provider Reason for Visit * Reason Comments Establish Care medtronic Coronary Artery Disease * Consultation (Routine) - Closed Specialty Diagnoses / Procedures Referred By Contac t Referred To Contact Cardiology Diagnoses CORONARY ARTERY DISEASE Alexander Adams MD [address] [place] [address] Rudy Moralez Jr., MD [address] [place] [id number] Referral ID Status Reason Start Date Expiration Date V isits Requested Visits Authorized [id number] Closed Consult, Test & Treat Connection Center 02/10/2017 02/10/2018 1 1 Encounter Details Date Type Department Care Team (Late st Contact Info) Description 03/31/2017 11:20 AM EST Office Visit Cardiology at [address] [phone] Rudy Moralez Jr., MD [address] [place] [address] [phone] ASCVD (arteriosclerotic cardiovascular disease); VT (ventricular tachycardia); Essential hypertension Social History Tobacco Use Types Packs/Day Years [...] Sign Reading Time Taken Comments Blood Pressure 150/80 03/31/2017 11:46 AM EST Pulse 84 03/31/2017 11:46 AM EST Temperature - - Respiratory Rate 14 03/31/2017 11:46 AM EST Oxygen Saturation - - Inhaled Oxygen Concentration - - Weight 81.6 kg (180 lb) 03/31/2017 11:46 AM EST Height 172.7 cm (5' 8) 03/31/2017 11:46 AM EST Body Mass Index 27.37 03/31/2017 11:46 AM EST documented in this encounter Progress Notes * Rudy Moralez Jr., MD - 03/31/2017 11:20 AM EST Subjective: Patient ID: Liane Cole is a 71 y.o. female. Chief Complaint Patient presents with ??? Establish Care medtronic ??? Coronary Artery Disease HPI She is switching follow up to nm after previously following at [facility] [place] [place] then with [facility] cardiology. She has had no chest pain and has felt no limiting dyspnea or dizziness. She has rare brief palpitations with no associated symptoms. She has had no ICD discharge. Her energy level is stable. BP at home has been 110- 120 systolic. Review of Systems foot pain limits her walking, she uses a cane Allergies Allergen Reactions ??? Lisinopril Anaphylaxis ??? [...] Outpatient Prescriptions Medication Sig Dispense Refill ??? thiamine 100 mg Tablet Take 100 mg by mouth daily. ??? cyanocobalamin 1,000 mcg Tablet Take 1,000 mcg by mouth daily. ??? insulin glargine (LANTUS) Solution Inject 28 Units subcutaneously daily. PRN for pump failure 10 mL prn ??? insulin lispro (HUMALOG) Solution Inject 35-40 Units subcutaneously continuous. Daily via insulin pump diag code E10.319 (Patient taking differently: Inject 40-50 Units subcutaneously continuous.Daily via insulin pump diag code E10.319) 40 mL 3 ??? valsartan (DIOVAN) 40 mg Tablet Take 1 tablet by mouth every other day. (Alternating with carvedilol) (Patient taking differently: Take 40 mg by mouth daily. (Alternating with carvedilol)) 45 tablet 3 ??? traMADol-acetaminophen (ULTRACET) 37.5-325 mg Tablet Take 1 tablet by mouth 2 times daily as needed for Pain. 60 tablet 3 ??? atorvastatin (LIPITOR) 40 mg Tablet [...] Take 81 mg by mouth daily. ??? acetaminophen (TYLENOL) 325 mg tablet Take 650 mg by mouth every 4 hours as needed. ??? Pyridoxine (VITAMIN B-6) 200 mg Tab 200 mg PO Once daily No current facility-administered medications for this visit. Patient Active Problem List Diagnosis ??? Ventricular fibrillation- with Medtronic ICD implanted 200906/21/2009 [facility]--- VF presenting, ROSC post shock by EMS, intubated; Dual chamber ICD - 07/02/2009 Medtronic John II VR Model# [id number], Serial# [id number] ??? CAD, out of hosp arrest and [...] - Insulin pump Objective: Physical Exam BP 150/80 Pulse 84 Resp 14 Ht 172.7 cm (5' 8) Wt 81.6 kg (180 lb) BMI 27.37 kg/m2 NAD No JVD/HJR Chest clear Cor RR, no murmur Abd benign Ext no edema Interrogation: VT 1, pace terminated VT-NS 78 VF 0 Mode VVI 40 Ventricular Impedance (ohms) 741, defib 43 Threshold (volts) 0.75 P/R (mVolts) 3.8 % paced 0 Battery 2.86 V charge time 9.9 Rate Responsiveness adequate for level of activity Electrogram clean Reprogramming: cleared event counters Assessment and Plan: Normal ICD function, appropriate pace terminated VT. Stable rate of NSVT (reviewing data over years). As she is intolerant of beta blockers options are to continue as is with defibrillator protectingher from dangerous arrhythmias or add diltiazem to help with NSVT. For now will not add new meds Well controlled angina- encouraged to keep up activity as tolerated BP controlled (by home numbers) Phone check of defibrillator every 3 months, office visit in 6 months documented in this encounter Plan of Treatment Upcoming Encounters Date Type Department Care Team (Late st Contact Info) Description 02/29/2024 10:00 AM EST Office Visit Cardiology at [address] [phone] Ruben Hartman, PA [facility] [place] [address] 04/26/2024 10:00 AM EST Hospital Encounter Non-Invasive Cardiology Lab [facility] [place] [address] Arrived 09/24/2024 4:00 PM EDT Office Visit Cardiology at [address] [place] [phone] Nathaniel Keita MD [facility] [place] [address] documented as of this encounter Visit Diagnoses Diagnosis ASCVD (arteriosclerotic cardiovascular disease) Unspecified cardiovascular disease VT (ventricular tachycardia) Paroxysmal ventricular tachycardia Essential hypertension Unspecified essential hypertension documented in this encounter Care Teams Cash Register Balancer Relationship Specialty Start Date End Date Alexander Adams MD [address] [place] [address] PCP - General 04/06/12 07/26/23 documented as of this encounter
--- OUTSIDE RECORDS SUMMARY | 2024-02-15 22:02 | XMS_ITS | Encounter Summary ---
[place] [address] Care Team Providers Care Secretary Receptionist Name Role Phone Alexander Adams MD Primary Care Provider [phone] Encounter Details Date Type Department Care Team (Late Contact Info) Description 11/20/2020 Ancillary Procedure Radiology at [facility] [address] [place] [phone] Bhavna Malin MD [address] [place] [address] Social History Tobacco Use Types Packs/Day Years [...] 10:00 AM EST Office Visit Cardiology at [address] [phone] [facility]man[facility] [place] [address] 04/26/2024 10:00 AM EST Hospital Encounter Non-Invasive Cardiology Lab [facility] [place] [address] Arrived 09/24/2024 4:00 PM EDT Office Visit Cardiology at [address] [place] [phone] Nathaniel Keita MD [facility] [place] [address] documented as of this encounter Procedures Procedure Name Priority Date/Time Associated Diagnosis Comments FILM LIBRARY STORAGE ONLY CT SPINE Routine 11/20/2020 12:00 AM EDT documented in this encounter Results * Film Library- Storage Only CT Spine (11/20/2020 12:00 AM EDT) Narrative [facility] - 11/24/2020 9:59 AM EDT This exam is auto-finalizing. It's purpose is for storage only. Bhavna Malin MD IMG FILM LIBRARY ORDERABLES Performing Organization Address City/State/[facility] Co de Phone Number [place], [place] documented in this encounter Visit Diagnoses Not on filedocumented in this encounter Care Teams Secretary Receptionist Relationship Specialty Start Date End Date Alexander Adams MD [address] [place] [address] PCP - General 04/06/12 07/26/23 documented as of this encounter
--- OUTSIDE RECORDS SUMMARY | 2024-02-15 22:02 | XMS_ITS | Encounter Summary ---
Author Organization [facility] [place] [address] Care Team Providers Care Train Braker Name Role Phone Alexander Adams MD Primary Care Provider Reason for Referral * Consultation (Routine) - Duplicate Referral Specialty Diagnoses / Procedures Referred By Contac t Referred To Contact Otolaryngology Diagnoses Other diseases of salivary glands Domenico Perez MD [address] [place] [address] [place] [address] Inocente Phoenix MD [facility] [place] [address] Referral ID Status Reason Start Date Expiration Date Visits Requested Visits Authorized [id number] Duplicate Referral Consult, Test & Treat 06/19/2021 06/19/2022 1 1 Encounter Details Date Type Department Care Team (Late st Contact Info) Description 06/19/2021 Transcribe Orders eDH Incoming Referrals [phone] Domenico Perez MD [address] [place] [address] [address] [place], [place] [id number] Other diseases of salivary glands Social History Tobacco Use Types Packs/Day Years [...] AM EST Office Visit Cardiology at [address] [phone] Ruben Hartman PA [facility] [place] [address] 04/26/2024 10:00 AM EST Hospital Encounter Non-Invasive [place] [address] Arrived 09/24/2024 4:00 PM EDT Office Visit Cardiology at [address] [phone] Nathaniel Keita MD [facility] [place] [address] Scheduled Referrals Name Type Priority Associated Diagnoses Orde r Schedule Referral to ENT Outpatient Referral Routine Other diseases of salivary glands Ordered: 06/19/2021 documented as of this encounter Visit Diagnoses Diagnosis Other diseases of salivary glands documented in this encounter Care Teams Train Braker Relationship Specialty Start Date End Date Alexander Adams MD [address] [place] [address] PCP - General 04/06/12 07/26/23 documented as of this encounter
--- OUTSIDE RECORDS SUMMARY | 2024-02-15 22:02 | XMS_ITS | Encounter Summary ---
Author Organization [facility] [place] [address] Care Team Providers Care Stencil Printer Name Role Phone Alexander Adams MD Primary Care Provider [phone] Encounter Details Date Type Department Care Team (Late st Contact Info) Description 03/10/2022 Orders Only Cardiology at [address] [phone] Paolo Bailey MD [facility] [place] [address] Social History Tobacco Use Types Packs/Day Years [...] 10:00 AM EST Office Visit Cardiology at [address] [phone] Ruben Hartman, PA [facility] [place] [address] 04/26/2024 10:00 AM EST Hospital Encounter Non-Invasive Cardiology Lab Count Includes [facility] [place] [address] Arrived 09/24/2024 4:00 PM EDT Office Visit Cardiology at [address] [place] [phone] Nathaniel Keita MD [facility] [place] [address] documented as of this encounter Procedures Procedure Name Priority Date/Time Associated Diagnosis Comments CARDIAC DEVICE CHECK - REMOTE Routine 03/10/2022 11:28 AM EST documented in this encounter Results * Cardiac Device Check - Remote (03/10/2022 11:28 AM EST) Anatomical Region Laterality Modality Other 03/10/2022 11:2 8 AM EST Paolo Bailey MD IMPLANTABLE CARDIAC DEVICE documented in this encounter Visit Diagnoses Not on filedocumented in this encounter Care Teams Stencil Printer Relationship Specialty Start Date End Date Alexander Adams MD [address] [place] [address] PCP - General 04/06/12 07/26/23 documented as of this encounter
--- OUTSIDE RECORDS SUMMARY | 2024-02-15 22:02 | XMS_ITS | Encounter Summary ---
Author Organization [facility] [place] [address] Care Team Providers Care Hydroelectric Component Machinist Name Role Phone Alexander Adams MD Primary Care Provider [phone] Reason for Visit * Reason Onset Date Comments Medication Refill 11/14/2015 Encounter Details Date Type Department Care Team (Late st Contact Info) Description 11/14/2015 Refill [place] [address] Donna Driscoll LNA Social History Tobacco Use [...] AM EST Office Visit Cardiology at [address] [phone] Ruben Hartman, [facility] [place] [place] [address] 04/26/2024 10:00 AM EST Hospital Encounter Non-Invasive Cardiology Lab [facility] [address] Arrived 09/24/2024 4:00 PM EDT Office Visit Cardiology at [address] [place] [address] Nathaniel Keita MD [facility] [place] [address] documented as of this encounter Visit Diagnoses Not on filedocumented in this encounter Care Teams Hydroelectric Component Machinist Relationship Specialty Start Date End Date Alexander Adams MD [address] [place] [address] PCP - General 04/06/12 07/26/23 documented as of this encounter
--- OUTSIDE RECORDS SUMMARY | 2024-02-15 22:02 | XMS_ITS | Encounter Summary ---
[place] [address] Care Team Providers Care Security Clerk Name Role Phone Alexander Adams MD Primary Care Provider [phone] Encounter Details Date Type Department Care Team (Latest Contact Info) Description 02/01/2023 10:00 AM EDT - 02/01/2023 11:59 PM EDT Hospital Encounter [place] [phone] Discharge Disposition: Home Social History Tobacco Use [...] 10:00 AM EST Office Visit Cardiology at [address] [phone] Ruben Hartman PA [facility] [place] [address] 04/26/2024 10:00 AM EST Hospital Encounter Non-[place] [address] Arrived 09/24/2024 4:00 PM EDT Office Visit Cardiology at [address] [phone] Nathaniel Keita MD [facility] [place] [address] documented as of this encounter Procedures Procedure Name Priority Date/Time Associated Diagnosis Comments PRO ICD INTERROGATION REMOTE UP TO 90 DAYS Routine 12/08/2022 3:16 AM EDT documented in this encounter Results * Cardiac Device Check - Remote (12/08/2022 3:16 AM EDT) Anatomical Region Laterality Modality Other 12/08/2022 3:16 AM EDT Paolo Bailey MD IMPLANTABLE CARDIAC DEVICE documented in this encounter Visit Diagnoses Not on filedocumented in this encounter Care Teams Security Clerk Relationship Specialty Start Date End Date Alexander Adams MD [address] [place] [id number] PCP - General 04/06/12 07/26/23 documented as of this encounter
--- OUTSIDE RECORDS SUMMARY | 2024-02-15 22:02 | XMS_ITS | Encounter Summary ---
Author Organization [facility] Address [facility] [place] [address] Care Team Providers Care Granite Installer Name Role Phone Alexander Adams MD Primary Care Provider [phone] Reason for Referral * Consultation (Routine) - Closed Specialty Diagnoses / Procedures Referred By Contact Referred To Contact Electrophysiology / Cardiology Diagnoses Ventricular fibrillation Nathaniel Keita MD [facility] [place] [address] [address] Referral ID Status Reason Start Date Expiration Date V isits Requested Visits Authorized [id number] Closed Consult, Test & Treat 2018 2019 1 1 Reason for Visit * Reason Comments Follow-up 2 months, Medtronic pacemaker Encounter Details Date Type Department Care Team (Late st Contact Info) Description 2018 11:20 AM EDT Office Visit Cardiology at [address] [address] Nathaniel Keita MD [facility] [place] [address] Ventricular fibrillation- with Medtronic ICD implanted 2009 [...] Sign Reading Time Taken Comments Blood Pressure 131/56 2018 11:07 AM EDT Pulse 93 2018 11:07 AM EDT Temperature - - Respiratory Rate 16 2018 11:0 7 AM EDT Oxygen Saturation - - Inhaled Oxygen Concentration - - Weight 76.2 kg (168 lb) 2018 11:0 7 AM EDT previous weight was transposed (actual 164#) 2 months ago Height 172.7 cm (5' 8) 2018 11:0 7 AM EDT Body Mass Index 25.54 2018 11:07 AM EDT documented in this encounter Progress Notes * Nathaniel Keita MD - 2018 11:20 AM EDT Subjective: Patient ID: Liane Cole is a 73 y.o. female. Chief Complaint Patient presents with ??? Follow-up 2 months, Medtronic pacemaker HPI 73 F presents on follow-up for device check. It was last checked in August, at which time it was bordering on KP. In the interim, she has done well. No new symptoms. No hvt, lightheadedness. Has sporadic palpitations but for 1-4 seconds at a time. Denies syncope. Less active because of foot issues; however, walks around at work without angina, dyspnea. Review of Systems 11 point ros either negative or per hpi Allergies Allergen Reactions ??? Lisinopril Anaphylaxis ??? [...] Outpatient Medications Medication Sig Dispense Refill ??? loratadine (CLARITIN) 10 mg Tablet Take 10 mg by mouth daily. ??? acetaminophen (TYLENOL) 500 mg Tablet Take [...] Ventricular fibrillation- with Medtronic ICD implanted 200906/21/2009 [facility]--- VF presenting, ROSC post shock by EMS, intubated; Dual chamber ICD - 07/02/2009 Medtronic John II VR Model# [id number], Serial# [id number] ??? CAD, out of hosp arrest and [...] - Insulin pump Objective: Physical Exam BP 131/56 (BP Location (NBP): Left arm, Patient Position: Sitting, BP Cuff Sizes: Adult (25-34 cm)) Pulse 93 Resp 16 Ht 172.7 cm (5' 8) Wt 76.2 kg (168 lb) Comment: previous weight was transposed (actual 164#) 2 months ago LMP (LMP Unknown) BMI 25.54 kg/m?? General : pleasant female in NAD Cor: rrr, s1/s2 of nl character and amplitude, no mrg. jvp not elevated Pulm: ctab Ab: soft, nt, nd Ext: no cce. Dp/pt ++ Neuro: without focal deficit Ventricular Impedance (ohms) 741, defib 42 Threshold (volts) nt % paced 0 Battery 2.63 V (KP 2.63) charge time 12 s Rate Responsiveness adequate for level of activity Episodes: 1-2 episodes per occasional days with 1-4 seconds of slow unifocal VT Reprogramming: none Assessment and Plan: ICD at KP- will see EP here for consideration of battery change Well controlled angina Good BP RTC depending on device change timeframe Nathaniel Keita MD documented in this encounter Plan of Treatment Upcoming Encounters Date Type Department Care Team (Late st Contact Info) Description 02/29/2024 10:00 AM EST Office Visit Cardiology at [address] [phone] [address]en [address]LAURA [facility] [place] [address] 04/26/2024 10:00 AM EST Hospital Encounter Non-Invasive Cardiology Lab [facility] [place] [address] Arrived 09/24/2024 4:00 PM EDT Office Visit Cardiology at [address] [place] [phone] Nathaniel Keita MD [facility] [place] [address] Scheduled Referrals Name Type Priority Associated Diagnoses Order Schedule Referral to Cardiac Electrophysiology Outpatient Referral Routine Ventricular fibrillation- with Medtronic ICD implanted 2009 Ordered: 2018 documented as of this encounter Visit Diagnoses Diagnosis Ventricular fibrillation- with Medtronic ICD implanted 2009 Ventricular fibrillation documented in this encounter Care Teams Granite Installer Relationship Specialty Start Date End Date Alexander Adams MD [address] [place] [address] PCP - General 04/06/12 07/26/23 documented as of this encounter
--- OUTSIDE RECORDS SUMMARY | 2024-02-15 22:02 | XMS_ITS | Encounter Summary ---
[place] [address] Care Team Providers Care Per Diem Nurse Name Role Phone Alexander Adams MD Primary Care Provider [phone] Encounter Details Date Type Department Care Team (Late st Contact Info) Description 08/10/2019 Telephone Cardiology at [address] [place] [address] Nathaniel Keita MD [facility] [place] [address] Social History Tobacco Use Types Packs/Day Years [...] encounter Miscellaneous Notes * Telephone Encounter - Anamaria Wills RN - 08/10/2019 9:41 AM EDT See chart, patient scheduled a remote download. * Telephone Encounter - Liane Gutierrez - 08/10/2019 8:11 AM EDT Patient saw you end of October 2018. She had a new Pacemaker placed. She is asking when she should seeyou again. No issues. #[phone] documented in this encounter Plan of Treatment Upcoming Encounters Date Type Department Care Team (Late st Contact Info) Description 02/29/2024 10:00 AM EST Office Visit Cardiology at [address] [phone] Ruben Hartman PA [facility] [place] [address] 04/26/2024 10:00 AM EST Hospital Encounter Non-[place] [address] Arrived 09/24/2024 4:00 PM EDT Office Visit Cardiology at [address] [phone] Nathaniel Keita MD [facility] [place] [address] documented as of this encounter Visit Diagnoses Not on filedocumented in this encounter Care Teams Per Diem Nurse Relationship Specialty Start Date End Date Alexander Adams MD [address] [place] [address] PCP - General 04/06/12 07/26/23 documented as of this encounter
--- OUTSIDE RECORDS SUMMARY | 2024-02-15 22:02 | XMS_ITS | Encounter Summary ---
[place] [address] Care Team Providers Care Consumer Services Advisor Name Role Phone Alexander Adams MD Primary Care Provider [phone] Encounter Details Date Type Department Care Team (Latest Contact Info) Description 02/26/2020 - 02/26/2020 11:59 PM EST Hospital Encounter Non-Invasive [place] [address] Paolo Bailey MD [facility] [place] [address] Ventricular fibrillation Discharge Disposition: Home Social History [...] AM EST Office Visit Cardiology at [address] [phone] Ruben Hartmna PA [facility] [place] [address] 04/26/2024 10:00 AM EST Hospital Encounter Non-Invasive [place] [address] Arrived 09/24/2024 4:00 PM EDT Office Visit Cardiology at [address] [phone] Nathaniel Keita MD [facility] [place] [address] Pending Results Name Type Priority Associated Diagnoses Date /Time Cardiac Device Check - Remote Scheduled Implantable Cardiac Device Routine Ventricular fibrillation 02/27/2020 9:18 AM EST Scheduled Orders Name Type Priority Associated Diagnoses Orde r Schedule Cardiac Device Check - Remote Scheduled Implantable Cardiac Device Routine Ventricular fibrillation 1 Occurrences starting 02/27/2020 until 02/27/2020 documented as of this encounter Visit Diagnoses Diagnosis Ventricular fibrillation documented in this encounter Care Teams Consumer Services Advisor Relationship Specialty Start Date End Date Alexander Adams MD [address] [place] [address] PCP - General 04/06/12 07/26/23 documented as of this encounter
--- OUTSIDE RECORDS SUMMARY | 2024-02-15 22:02 | XMS_ITS | Encounter Summary ---
[place] [address] Care Team Providers Care General Operator Name Role Phone Alexander Adams MD Primary Care Provider [phone] Encounter Details Date Type Department Care Team (Late st Contact Info) Description 03/31/2023 Telephone Cardiology at [address] [phone] Lorenza Velazquez Social History Tobacco Use Types [...] * Telephone Encounter - Lorenza Velazquez - 03/31/2023 11:55 AM EST LVM for patient to call back - patient need an in-clinic device clinic visit scheduled for reprogramming of her ICD - Next available RN or RENEE Velazquez EP Scheduling documented in this encounter Plan of Treatment Upcoming Encounters Date Type Department Care Team (Late st Contact Info) Description 02/29/2024 10:00 AM EST Office Visit Cardiology at [address] [place] [address] Rubne Hartman PA [facility] [place] [place] [address] 04/26/2024 10:00 AM EST Hospital Encounter [place] [address] Arrived 09/24/2024 4:00 PM EDT Office Visit Cardiology at [address] [place] [phone] Nathaniel Keita MD [facility] [place] [address] documented as of this encounter Visit Diagnoses Not on filedocumented in this encounter Care Teams General Operator Relationship Specialty Start Date End Date Alexander Adams MD [address] [place] [address] PCP - General 04/06/12 07/26/23 documented as of this encounter
--- OUTSIDE RECORDS SUMMARY | 2024-02-15 22:02 | XMS_ITS | Encounter Summary ---
[place] [address] Care Team Providers Care Ham Sawyer Name Role Phone Alexander Adams MD Primary Care Provider Encounter Details Date Type Department Care Team (Late st Contact Info) Description 07/09/2019 External Results Cardiology at [address] [phone] Alexander Adams MD [address] [place], [place] [phone] Social History Tobacco Use Types Packs/Day Years [...] 10:00 AM EST Office Visit Cardiology at [address] [place] [address] Ruben Hartman, PA [facility] [place] [address] 04/26/2024 10:00 AM EST Hospital Encounter Non-Invasive Cardiology Lab [facility] [place] [address] Arrived 09/24/2024 4:00 PM EDT Office Visit Cardiology at [address] [place] [phone] Nathaniel Keita MD [facility] [place] [place] [address] documented as of this encounter Procedures Procedure Name Priority Date/Time Associated Diagnosis Comments EP DEVICE SCAN Routine 05/16/2019 documented in this encounter Results * Scan Doc: EP Device (05/16/2019) Anatomical Region Laterality Modality Other Alexander Adams MD MEDIA MGR SCAN EXT O RDR/RSLT documented in this encounter Visit Diagnoses Not on filedocumented in this encounter Care Teams Ham Sawyer Relationship Specialty Start Date End Date Alexander Adams MD [address] [place] [address] PCP - General 04/06/12 07/26/23 documented as of this encounter
--- OUTSIDE RECORDS SUMMARY | 2024-02-15 22:02 | XMS_ITS | Encounter Summary ---
[place] [address] Care Team Providers Care Studio Grip Name Role Phone Alexander Adams MD Primary Care Provider [phone] Reason for Referral * Diagnostic Test (Routine) - Closed Specialty Diagnoses / Procedures Referred By Contbonifacio enriquez Referred To Contact Radiology Diagnoses Mass of right parotid gland Procedures CT Neck Soft Tissue w Contrast (Generic) Otoniel Brown PA [facility] [address] [place] [address] [facility] [place] [address] Referral ID Status Reason Start Date Expiration Date V isits Requested Visits Authorized [id number] Closed Specialty Service Requested 06/29/2021 08/27/2021 1 1 Encounter Details Date Type Department Care Team (Late st Contact Info) Description 06/05/2021 Orders [place] [address] Otoniel Brown PA [facility] [place] [address] Mass of right parotid gland Social History [...] 10:00 AM EST Office Visit Cardiology at [address] [phone] Ruben Hartman PA [facility] [place] [address] 04/26/2024 10:00 AM EST Hospital Encounter Non-[place] [address] Arrived 09/24/2024 4:00 PM EDT Office Visit Cardiology at [address] [phone] Nathaniel Keita MD [facility] [place] [address] documented as of this encounter Procedures Procedure Name Priority Date/Time Associated Diagnosis Comments CARDIAC DEVICE CHECK - REMOTE Routine 02/05/2022 9:35 AM EDT documented in this encounter Results * Cardiac Device Check - Remote (02/05/2022 9:35 AM EDT) Anatomical Region Laterality Modality Other 02/05/2022 9:35 AM EDT Vimal Meyers MD IMPLANTABLE CARDIAC DEVICE * CT Neck Soft Tissue w Contrast [...] who have questions please contact the health medical care administrator that requested your imaging first. ? Narrative 07/02/2021 10:11 AM EDT EXAMINATION: CT [...] patients who have questions please contactthe health medical care administrator that requested your imaging first. 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
--- OUTSIDE RECORDS SUMMARY | 2024-02-15 22:02 | XMS_ITS | Encounter Summary ---
[place] [address] Care Team Providers Care Batteryman Name Role Phone Alexander Adams MD Primary Care Provider [phone] Reason for Visit * Auth/Cert Specialty Diagnoses / Procedures Referred By Contac t Referred To Contact Diagnoses ICD (implantable cardioverter-defibrillator) in place [Z95.810] Procedures ELECTROPHYSIOLOGY PROCEDURE Referral ID Status Reason Start Date Expiration Date Visits Re quested Visits Authorized [id number] 1 1 Encounter Details Date Type Department Care Team (Late st Contact Info) Description 01/12/2019 8:30 AM EDT - 01/12/2019 10:30 AM EDT Surgery [place] [address] Parvez Meyers MD [facility] [place] [address] ELECTROPHYSIOLOGY PROCEDURE Social History Tobacco Use Types Packs/Day Years [...] Sign Reading Time Taken Comments Blood Pressure 145/65 01/12/2019 10:20 AM EDT Pulse 90 01/12/2019 10:20 AM EDT Temperature 36.8 ??C (98.2 ??F) 01/12/2019 7:26 AM ED T Respiratory Rate 16 01/12/2019 10:20 AM EDT Oxygen Saturation 96% 01/12/2019 10:20 AM EDT Inhaled Oxygen Concentration - - Weight 74.8 kg (165 lb) 01/12/2019 7:26 AM EDT Height - - Body Mass Index 25.09 12/13/2018 2:29 PM EDT documented in this encounter Discharge Instructions * Patient Instructions* Parvez Meyers MD - 01/12/2019 9:48 AM EDT FINAL ICD/PACEMAKER RECOMMENDATIONS: 1. Standard post implant discharge instructions (see below): 2. Medications as listed above. ?? You may use ice packs over the incision. Make sure to use a clothes presser (such as a towel) in between the ice pack and the bare skin and that it stays DRY. 3. Follow up in pacemaker clinic in 10 days for a wound check and device check. DEVICE CLINIC 1. You will be scheduled for a ~10 day wound check in the Device Clinic for: ?? Incision check ?? Device interrogation ?? Review of remote follow up and set up of home monitor 2. Your device will be checked every 3 months (either in clinic or by remote). 3. Prior to discharge, you will be given a home monitor so that your device can send clinical data to the device clinic nurses. If you are unable to set this up at home prior to your wound check, we will review this at the time of your appointment NOTE: The device data we review from your home monitor is comparable to an in- office appointment. Therefore, your insurance company will be billed for review of your data. Depending on your coverage,you may be responsible for a portion of his charge. We recommend that you contact your insurance carrier for more details about your particular coverage. WOUND CARE FOR YOUR INCISION: Your wound will usually heal in 7-10 days. Your wound may be tender, it may appear slightly red andbumpy and there may be dry, crusty scabbing. These are all normal. How to Care for your Incision: - Either you or someone with you needs to look at the wound every day. - Report any signs of infection immediately: ?? Drainage ?? Swelling ?? Warmth ?? Increased pain ?? Fevers/chills - Call if you are concerned about infection or the edges of the wound separate - A needle should not be put into the wound area because this can damage the device. ?? You may need to remind your healthcare provider of this concern - There are sutures inside the incision that will dissolve on their own - Do not scratch or rub the wound - Do not apply creams, lotions, or ointments to the incision until is completely healed. - You may cover the wound with gauze if it rubs on clothing and causes discomfort - Protect your wound from injury until the skin has had sufficient time to heal - Do not shower for 48 hours after implant - While in the shower, turn your back to the water nozzle so you avoid direct water pressure on thewound. Continue this for 7-10 days. - After 48 hours, you may wash the wound gently with soap and water (unless there is DermaBond on the incision - see below) - Do not submerge the incision (bathtubs, hot tubs, or swimming) for at least two weeks Your incision has been covered with a Mepilex dressing. - This dressing will stay on for 7 days. - Please remove the dressing on: 01/22/2019 - If the edges pull up substantially or fluid gets underneath the Mepilex dressing, remove it sooner - Once removed, you may notice some grayish discoloration. This is normal. Your incision has been closed with: Dermabond - This is a sterile, liquid skin adhesive that holds wound edges together. The film will usually remain in place for a few weeks, then naturally sloughs (falls) off your skin. - Do not scratch, rub, or pick at the Dermabond adhesive film. This may loosen the film before yourwound is healed. - Protect the wound from prolonged exposure to sunlight or tanning lamps while the film is in place - You may occasionally and briefly wet your wound in the shower or bath. Do not soak or scrub your wound, do not swim, and avoid periods of heavy perspiration until the Dermabond adhesive has naturally fallen off. After showering or bathing, gently blot your wound dry with a soft towel CALL IMMEDIATELY: If you develop chest pain, shortness of breath, bleeding, discharge from the incision, opening of the incision and/or fever/temperature >100 degrees F. The office scheduling phone number is [phone]. ARM MOVEMENT RESTRICTIONS POST-IMPLANT - Do not raise your elbow on the operated side above the shoulder for 1 week - Do not lift greater than 7 pounds (equal to a gallon of milk) on the operated side for 1 week - Do not fully extend this arm in any direction away from the torso for 1 week - You may use your arm on the operated side, but do not make extreme movement (such as stretching or reaching for a heavy object) for 1 week If you have any questions or concerns about this product, please call the office at [phone]. documented in this encounter Medications at Time of Discharge Medication Sig Dispensed Refills Start Date End Date cholecalciferol, Vitamin D3, 5,000 unit Tablet Take [...] daily. 07/27/2023 documented as of this encounter H&P Notes * Parvez Meyers MD - 01/12/2019 7:55 AM EDT Liane Cole [id number] 01/12/2019 73 y.o. Cardiology EP History and Physical PCP: Alexander Adams MD I performed a history and physical exam of the patient Admission Diagnosis: ICD at [facility] for replacement Date of Evaluation: 01/12/2019 Date of Admission: 01/12/2019 Problem List: Active Non-Hospital Problems Diagnosis ??? Ventricular fibrillation- with Medtronic ICD implanted 2009 ??? CAD, out of hosp arrest and 2v CABG in 2009, preserved LV function ??? Gastroesophageal reflux disease ??? Hypertension ??? 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 cholecalciferol, Vitamin D3, 5,000 unit Tablet Take 5,000 Units by mouth daily. 01/10/2019 at Unknown time ??? valsartan (DIOVAN) 40 mg Tablet Take 40 mg by mouth daily. 01/11/2019 at Unknown time ??? thiamine 100 mg Tablet Take 100 mg by mouth daily. 01/10/2019 at Unknown time ??? insulin glargine (LANTUS) Solution Inject 28 Units subcutaneously daily. PRN for pump failure 10 mL prn Past Month at Unknown time ??? insulin lispro (HUMALOG) Solution Inject 35-40 Units subcutaneously continuous. Daily via insulin pump diag code E10.319 (Patient taking differently: Inject 40-50 Units subcutaneously continuous.Daily via insulin pump diag code E10.319) 40 mL 3 01/11/2019 at Unknown time ??? atorvastatin (LIPITOR) 40 mg Tablet Take 40 mg by mouth daily. 01/12/2019 at Unknown time ??? lansoprazole (PREVACID) 30 mg capsule Take 30 mg by mouth daily. 01/12/2019 at Unknown time ??? glucagon, human recombinant, 1 mg injection Inject 1 mL into the muscle as needed. 1 each prn 01/11/2019 at Unknown time ??? aspirin 81 mg chewable tablet Take 81 mg by mouth daily. 01/11/2019 at Unknown time ??? Pyridoxine (VITAMIN B-6) 200 mg Tab 200 mg PO Once daily 01/10/2019 at Unknown time ??? loratadine (CLARITIN) 10 mg Tablet Take 10 mg by mouth daily as needed. More than a month at Unknown time ??? acetaminophen (TYLENOL) 500 mg Tablet Take 1,000 mg by mouth every 6 hours as needed for Pain. More than a month at Unknown time HPI: This 73 y.o. female is admitted with a chief complaint of ICD at [facility]. When she was seen in the EP clinic recently '..The original device was implanted in 2009, after [...] this, with no recurrent ventricular arrhythmias. The deviceis a Medtronic single chamber ICD that has been programmed to VVI 40...' Since that visit, she has been doing well. No new symptoms. NPO since last night. No fevers, chills. Has an iodine allergy (skin, local reaction) I have reviewed the available records, interviewed and examined the patient. This patient is admitted post PCI for IV hydration, pain management, access site management in the setting of anticoagulation, serial cardiac biomarker monitoring, telemetry monitoring, evaluation oftheir medical condition, and cardiac rehabilitation. ROS/PMHx/Fam Hx/Soc Hx: Reviewed, see outpatient note. Physical Exam: Vital signs: BP 147/58 (BP Location (NBP): Left arm) Pulse 97 Temp 36.8 ??C (98.2 ??F) (Temporal) Resp 18 Wt 74.8 kg (165 lb) LMP (LMP Unknown) SpO2 100% BMI 25.09 kg/m?? Physical Exam Constitutional: She is oriented to person, place, and time. She appears well- developed. No distress. Body mass index is 25.09 kg/m??. HENT: Mouth/Throat: No oropharyngeal exudate. Eyes: No scleral icterus. Neck: No JVD present. Cardiovascular: Normal rate and regular rhythm. Pulmonary/Chest: Effort normal. Lymphadenopathy: She has no cervical adenopathy. Neurological: She is alert and oriented to person, place, and time. Skin: Skin is warm and dry. Psychiatric: She has a normal mood and affect. Lab (Last 24 Hours): Recent Results (from the past 24 hour(s)) Hemogram Result Value Ref Range WBC 8.8 4.0 - 9.5 x10(3)/mcL RBC 4.03 4.00 - 5.21 x10(6)/mcL Hemoglobin 11.7 11.7 - 15.5 gm/dL Hematocrit 36.2 35.7 - 45.8 % MCV 89.8 82.6 - 94.4 fL MCH 29.0 27.1 - 32.0 pg MCHC 32.3 31.7 - 35.0 gm/dL Platelets 224 145 - 357 x10(3)/mcL RDWSD 44.5 37.0 - 46.0 fL RDWCV 13.5 11.5 - 14.1 % MPV 10.6 7.6 - 12.9 fL nRBC % Auto 0.0 % nRBC Abs Auto 0.000 0.000 - 0.000 x10(3)/mcL Differential, Automated Result Value Ref Range Neutrophils % 59.6 % Neutr Abs (ANC) 5.23 1.70 - 6.10 x10(3)/mcL Lymphocytes % 29.0 % Lymphocytes Abs 2.5 0.9 - 3.2 x10(3)/mcL Monocytes % 6.6 % Monocyte Abs 0.6 0.3 - 0.9 x10(3)/mcL Eosinophils % 3.8 % Eosinophils Abs 0.3 0.0 - 0.4 x10(3)/mcL Basophils % 0.5 % Basophils Abs 0.0 0.0 - 0.1 x10(3)/mcL Immature Gran % 0.50 % Joana Gran Abs 0.04 0.00 - 0.04 x10(3)/mcL POCT Glucose Result Value Ref Range POC Glucose 224 (H) 65 - 199 mg/dL Assessment: 1. 73 y.o. woman with ICD at [facility] here for elective pulse generator replacement 2. Consent obtained, anticipate discharge to home later today Plan: 1. The working diagnosis and plan of management was reviewed with the patient, available family 2. Questions were addressed. 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 PARVEZ MEYERS MD 01/12/2019 documented in this encounter Plan of Treatment Upcoming Encounters Date Type Department Care Team (Late st Contact Info) Description 02/29/2024 10:00 AM EST Office Visit Cardiology at [address] [place] [address] Ruben Hartman, PA [facility] [place] [address] 04/26/2024 10:00 AM EST Hospital Encounter Non-Invasive Cardiology Lab [facility] [place] [address] Arrived 09/24/2024 4:00 PM EDT Office Visit Cardiology at [address] [address] Nathaniel Keita MD [facility] [place] [address] documented as of this encounter Procedures Procedure Name Priority Date/Time Associated Diagnosis Comments POCT GLUCOSE Routine 01/12/2019 10:09 AM EDT POCT GLUCOSE Routine 01/12/2019 7:33 AM EDT BMP W/FASTING GLUCOSE STAT 01/12/2019 7:18 AM EDT HEMOGRAM STAT 01/12/2019 7:18 AM EDT DIFFERENTIAL, AUTOMATED STAT 01/12/2019 7:18 AM EDT HC VENIPUNCTURE STAT 01/12/2019 7:18 AM EDT IMPLANTABLE DEVICES SCAN 01/12/2019 12:00 AM EDT documented in this encounter Results * (ABNORMAL) POCT Glucose (01/12/2019 10:09 AM EDT) Glucose, POC 351(H) 65 - 199 mg/dL [facility] Comment: Supplemental ranges: <140 mg/dL before meals <180 mg/dL all other times of the day Blood specimen (specimen) 01/12/2019 10:09 AM EDT 01/12/2019 10:09 AM EDT Parvez Meyers MD POINT OF CARE TEST O KAMARI Performing Organization Address [facility] Co de Phone Number [facility] [place] [address] * (ABNORMAL) POCT Glucose (01/12/2019 7:33 AM EDT) Glucose, POC 224(H) 65 - 199 mg/dL [facility] Comment: Supplemental ranges: <140 mg/dL before meals <180 mg/dL all other times of the day Blood specimen (specimen) 01/12/2019 7:33 AM EDT 01/12/2019 7:33 AM EDT Parvez Meyers MD POINT OF CARE TEST O KAMARI Performing Organization Address [facility] Co de Phone Number [facility] [place] [address] * Differential, Automated (01/12/2019 7:18 AM EDT) Neutrophil % 59.6 % [facility] Neutrophil Absolute 5.23 1.70 - 6.10 x10(3)/[facility] Lymph % 29.0 % [facility] Lymphocytes Abs 2.5 0.9 - 3.2 x10(3)/[facility] Monocyte % 6.6 % [facility] Monocyte Abs 0.6 0.3 - 0.9 x10(3)/[facility] Eos % 3.8 % [facility] Eosinophils Abs 0.3 0.0 - 0.4 x10(3)/[facility] Basophil % 0.5 % [facility] Baso Absolute 0.0 0.0 - 0.1 x10(3)/[facility] Immature Gran % 0.50 % [facility] Comment: Immature granulocytes(IG's)percentage and absolute count will include metamyelocytes, myelocytes, and promyelocytes. Blood smears from CBCs yielding IG's will be scanned manually for concordance. If this scan disagrees with the automated IG or if promyelocytes are noted, a manual differential will be performed. Immature Gran Absolute 0.04 0.00 - 0.04 x10(3)/[facility] Blood specimen (specimen) 01/12/2019 7:18 AM EDT 01/12/2019 7:38 AM EDT Narrative Resulting Agency Comment Spec In Lab Parvez Meyers MD HEMATOLOGY ORDERABLE S Performing Organization Address City/State/[facility] Co de Phone Number [facility] [place] [address] * Hemogram (01/12/2019 7:18 AM EDT) White Blood Cell 8.8 4.0 - 9.5 x10(3)/[facility] Red Blood Cell 4.03 4.00 - 5.21 x10(6)/[facility] Hemoglobin 11.7 11.7 - 15.5 gm/dL [facility] Hematocrit 36.2 35.7 - 45.8 % [facility] Mean Cell Volume 89.8 82.6 - 94.4 fL [facility] Mean Cell Hemoglobin 29.0 27.1 - 32.0 pg [facility] Mean Cell Hemoglobin Concentration 32.3 31.7 - 35.0 gm/dL [facility] Platelet 224 145 - 357 x10(3)/[facility] RDW Standard Deviation 44.5 37.0 - 46.0 fL [facility] RDW coefficient of variation 13.5 11.5 - 14.1 % [facility] Mean Platelet Volume 10.6 7.6 - 12.9 [facility] NRBC% auto 0.0 % [facility] NRBC Absolute 0.000 0.000 - 0.000 x10(3)/mcL [facility] Blood specimen (specimen) 01/12/2019 7:18 AM EDT 01/12/2019 7:38 AM EDT Narrative Resulting Agency Comment Spec In Lab Parvez Meyers MD HEMATOLOGY ORDERABLE S Performing Organization Address City/State/[facility] Co de Phone Number [facility] [place] [address] * (ABNORMAL) BMP w/fasting Glucose (01/12/2019 7:18 AM EDT) Glucose Fasting 216(H) 65 - 99 mg/dL [facility] Comment: ?Fasting* Glucose Interpretive Criteria Normal [...] of Diabetes Mellitus, Position Statement from the [place] [employer]. ??Diabetes Care, Volume 33, Supplement 1, Apr 2009 Blood Urea Nitrogen 18 8 - 18 mg/dL [facility] Creatinine 0.89 0.70 - 1.20 mg/dL [facility] Sodium 141 135 - 145 mmol/L [facility] Potassium 4.4 3.5 - 5.0 mmol/L [facility] Comment: Please note: ??Patients with WBC >100,000 may have falsely elevated Potassium levels. ??For accurate Potassium quantification in these patients send serum separator tube (gold top) for subsequent determinations. ??Contact the Clinical Chemistry Laboratory if there are any questions. Chloride 101 98 - 107 mmol/L [facility] Carbon Dioxide 27 22 - 31 mmol/L [facility] Anion Gap 13 5 - 15 mmol/L [facility] Calcium 9.4 8.5 - 10.5 mg/dL [facility] Est Glomerular Filtration Rate 64 >=60 mL/min/1. 73 m?? [facility] Comment: The eGFR was calculated using the CKD-EPI equation. As with all creatinine based estimates of kidney function, eGFR values calculated with the CKD-EPI equation are not accurate in patients with acute kidney failure, extremes of body mass or the acutely ill. [email or web address] eGFR 74 >=60 mL/min/1. 73 m?? [facility] Comment: The eGFR was calculated using the CKD-EPI equation. As with all creatinine based estimates of kidney function, eGFR values calculated with the CKD-EPI equation are not accurate in patients with acute kidney failure, extremes of body mass or the acutely ill. [email or web address] Blood specimen (specimen) 01/12/2019 7:18 AM EDT 01/12/2019 7:38 AM EDT Narrative Resulting Agency Comment Spec In Lab Parvez Meyers MD CHEMISTRY ORDERABLES [facility] [place] [address] * SCAN DOC: IMPLANTABLE DEVICES (01/12/2019 12:00 AM EDT) Narrative 01/12/2019 12:00 AM EDT Ordered by an unspecified provider. Scanning Provider MEDIA MGR SCAN EXT O RDR/RSLT documented in this encounter Visit Diagnoses Diagnosis ICD (implantable cardioverter-defibrillator) in place documented in this encounter Administered Medications Inactive Administered Medications - up to 3 most recent administrations Medication Order MAR Action Action Date Dose Rate Site BUpivacaine (PF) (MARCAINE) 0.5 % (5 mg/mL) injection 150 mg 150 mg (30 mL), Subcutaneous, ONCE, 1 dose, On Tue01/12/19 at 0900, EP (Intra-Procedure), Routine Given 01/12/2019 8:51 AM EDT 150 mg ceFAZolin (ANCEF) 2g in dextrose 5% 100 mL 2 g, Intravenous, ONCE, 1 dose, On Tue01/12/19 at 0800, Administer over 30 Minutes, For use in the electrophysiology lab (EP lab) only with direct provider supervision and verbal order., EP (Intra-Procedure), Indication for (Active or Suspected): Prophylaxis New Bag 01/12/2019 8:31 AM EDT 2 g 200 mL/hr fentaNYL (PF) 50mcg/mL injection 25-50 mcg, Intravenous, EVERY 5 MIN PRN, Starting on Tue01/12/19 at 0836, Until Tue01/12/19 at 1056, Pain, As needed to induce or maintain moderate sedation per [facility] Moderate Sedation Policy for the duration of the EP procedure., As needed to induce or maintain moderate sedation per [facility] Moderate Sedation Policy for the duration of the EP procedure. For use in the electrophysiology lab (EP lab) only for procedural sedation with direct provider supervision and verbal order. RASS goal (-)2 to (-)3. Start at 25 mcg, Dose not to exceed 50 mcg/dose, 250 mcg/hr, or 20 mcg/kg per case., EP (Intra-Procedure), Routine Given 01/12/2019 9:06 AM EDT 25 mcg Given 01/12/2019 8:53 AM EDT 25 mcg Given 01/12/2019 8:48 AM EDT 25 mcg lidocaine (XYLOCAINE) 20 mg/mL (2 %) injection 400 mg 400 mg (20 mL), Subcutaneous, ONCE, 1 dose, On Tue01/12/19 at 0900, EP (Intra-Procedure), Routine Given 01/12/2019 8:52 AM EDT 400 mg midazolam (PF) (VERSED) multi-dose injection 0.5-1 mg 0.5-1 mg, Intravenous, EVERY 5 MIN PRN, Starting on Tue01/12/19 at 0836, Until Tue01/12/19 at 1056, Anxiety, As needed to induce or maintain moderate sedation per [facility] Moderate Sedation Policy for the duration of the EP procedure., As needed to induce or maintain moderate sedation per [facility] Moderate Sedation Policy for the duration of the EP procedure. For use in the electrophysiology lab (EP lab) only for procedural sedation with direct provider supervision and verbal order. RASS goal (-)2 to (-)3. Dose not to exceed 1 mg per dose, 5mg/hour, or 0.2mg/kg per case., EP (Intra-Procedure), Routine Given 01/12/2019 9:09 AM EDT 0.5 mg Given 01/12/2019 8:53 AM EDT 0.5 mg Given 01/12/2019 8:48 AM EDT 0.5 mg neomycin-polymyxin B (NEOSPORIN) irrigation solution Irrigation, ONCE, On Tue01/12/19 at 0900, 1 dose, EP (Intra-Procedure) Given 01/12/2019 8:52 AM EDT documented in this encounter Active and Recently Administered Medications Times are shown in EDT. Scheduled Medication Order 01/10/2019 01/11/2019 01/12/2019 BUpivacaine (PF) (MARCAINE) 0.5 % (5 mg/mL) injection 150 mg (COMPLETED) 150 mg (30 mL), Subcutaneous, ONCE, 1 dose, On Tue01/12/19 at 0900, EP (Intra-Procedure), Routine 0851 (Given - Provid er: Parvez Meyers MD) ceFAZolin (ANCEF) 2g in dextrose 5% 100 mL (COMPLETED) 2 g, Intravenous, ONCE, 1 dose, On Tue01/12/19 at 0800, Administer over 30 Minutes, For use in the electrophysiology lab (EP lab) only with direct provider supervision and verbal order., EP (Intra-Procedure), Indication for (Active or Suspected): Prophylaxis 0831 (New Bag - Prov ider: Alyson Mercado RN)0850 (Stopped - Provider: Alyson Mercado RN) lidocaine (XYLOCAINE) 20 mg/mL (2 %) injection 400 mg (COMPLETED) 400 mg (20 mL), Subcutaneous, ONCE, 1 dose, On Tue01/12/19 at 0900, EP (Intra-Procedure), Routine 0852 (Given - Provid er: Parvez Meyers MD) neomycin-polymyxin B (NEOSPORIN) irrigation solution (COMPLETED) Irrigation, ONCE, On Tue01/12/19 at 0900, 1 dose, EP (Intra-Procedure) 0852 (Given - Provid er: Parvez Meyers MD) PRN Medication Order 01/10/2019 01/11/2019 01/12/2019 fentaNYL (PF) 50mcg/mL injection (CANCELED) 25-50 mcg, Intravenous, EVERY 5 MIN PRN, Starting on Tue01/12/19 at 0836, Until Tue01/12/19 at 1056, Pain, As needed to induce or maintain moderate sedation per [facility] Moderate Sedation Policy for the duration of the EP procedure., As needed to induce or maintain moderate sedation per [facility] Moderate Sedation Policy for the duration of the EP procedure. For use in the electrophysiology lab (EP lab) only for procedural sedation with direct provider supervision and verbal order. RASS goal (-)2 to (-)3. Start at 25 mcg, Dose not to exceed 50 mcg/dose, 250 mcg/hr, or 20 mcg/kg per case., EP (Intra-Procedure), Routine 0837 (Given - Provid er: Alyson Mercado RN)0841 (Given - Provider: Alyson Mercado RN)0848 (Given - Provider: Alyson Mercado RN)0853 (Given - Provider: Alyson Mercado RN)0906 (Given - Provider: Alyson Mercado RN) midazolam (PF) (VERSED) multi-dose injection 0.5-1 mg (CANCELED) 0.5-1 mg, Intravenous, EVERY 5 MIN PRN, Starting on Tue01/12/19 at 0836, Until Tue01/12/19 at 1056, Anxiety, As needed to induce or maintain moderate sedation per [facility] Moderate Sedation Policy for the duration of the EP procedure., As needed to induce or maintain moderate sedation per [facility] Moderate Sedation Policy for the duration of the EP procedure. For use in the electrophysiology lab (EP lab) only for procedural sedation with direct provider supervision and verbal order. RASS goal (-)2 to (-)3. Dose not to exceed 1 mg per dose, 5mg/hour, or 0.2mg/kg per case., EP (Intra-Procedure), Routine 0837 (Given - Provid er: Alyson Mercado RN)0841 (Given - Provider: Alyson Mercado RN)0848 (Given - Provider: Alyson Mercado RN)0853 (Given - Provider: Alyson Mercado RN)0909 (Given - Provider: Alyson Mercado RN) documented in this encounter Care Teams Batteryman Relationship Specialty Start Date End Date Alexander Adams MD [address] [place] [address] PCP - General 04/06/12 07/26/23 documented as of this encounter
--- OUTSIDE RECORDS SUMMARY | 2024-02-15 22:02 | XMS_ITS | Encounter Summary ---
[place] [address] Care Team Providers Care Software Clerk Name Role Phone Alexander Adams MD Primary Care Provider [phone] Encounter Details Date Type Department Care Team (Latest Contact Info) Description 11/03/2022 10:00 AM EDT - 11/03/2022 11:59 PM EDT Hospital Encounter Non-[place] [phone] Discharge Disposition: Home Social History Tobacco Use [...] 10:00 AM EST Office Visit Cardiology at [address] [phone] Ruben Hartman PA [facility] [address] 04/26/2024 10:00 AM EST Hospital Encounter Non-[place]vasive [place] [address] Arrived 09/24/2024 4:00 PM EDT Office Visit Cardiology at [address] [phone] Nathaniel Keita MD [facility] [place] [address] documented as of this encounter Procedures Procedure Name Priority Date/Time Associated Diagnosis Comments PRO ICD INTERROGATION REMOTE UP TO 90 DAYS Routine 09/08/2022 10:37 AM EDT documented in this encounter Results * Cardiac Device Check - Remote (09/08/2022 10:37 AM EDT) Anatomical Region Laterality Modality Other 09/08/2022 10:3 7 AM EDT Vimal Meyers MD IMPLANTABLE CARDIAC DEVICE documented in this encounter Visit Diagnoses Not on filedocumented in this encounter Care Teams Software Clerk Relationship Specialty Start Date End Date Alexander Adams MD [address] [place] [address] PCP - General 04/06/12 07/26/23 documented as of this encounter
--- OUTSIDE RECORDS SUMMARY | 2024-02-15 22:02 | XMS_ITS | Encounter Summary ---
[place] [address] Care Team Providers Care Occasional Caregiver Name Role Phone Alexander Adams MD Primary Care Provider [phone] Reason for Visit * Auth/Cert Specialty Diagnoses / Procedures Referred By Contac t Referred To Contact Diagnoses ICD (implantable cardioverter-defibrillator) in place [Z95.810] Procedures ELECTROPHYSIOLOGY PROCEDURE Referral ID Status Reason Start Date Expiration Date Visits Re quested Visits Authorized [id number] 1 1 Encounter Details Date Type Department Care Team (Latest Contact Info) Description 01/12/2019 6:54 AM EDT - 01/12/2019 12:00 PM EDT Hospital Encounter [place] [address] Parvez Meyers MD [facility] [place] [address] Discharge Disposition: Home Social History Tobacco Use [...] Sign Reading Time Taken Comments Blood Pressure 143/67 01/12/2019 10:45 AM EDT Pulse 92 01/12/2019 10:45 AM EDT Temperature 36.8 ??C (98.2 ??F) 01/12/2019 7:26 AM ED T Respiratory Rate 16 01/12/2019 10:45 AM EDT Oxygen Saturation 97% 01/12/2019 10:45 AM EDT Inhaled Oxygen Concentration - - [...] the incision. Make sure to use a cloth mercerizer back tender (such as a towel) in between the [...] F. The office scheduling phone number is [phone]. ARM MOVEMENT RESTRICTIONS POST-IMPLANT - Do not [...] this product, please call the office at [phone]. documented in this encounter Medications at Time [...] - 01/12/2019 7:55 AM EDT Liane Cole [id number] 01/12/2020 73 y.o. Cardiology EP History and [...] with a chief complaint of ICD at [facility]. When she was seen in the EP [...] 1. 73 y.o. woman with ICD at [facility] here for elective pulse generator replacement 2. [...] 10:00 AM EST Office Visit Cardiology at [address] [phone] Ruben Hartman, [facility] [place] [address] 04/26/2024 10:00 AM EST Hospital Encounter Non-Invasive Cardiology Lab [facility] [place] [address] Arrived 09/24/2024 4:00 PM EDT Office Visit Cardiology at [address] [place] [address] Nathaniel Keita MD [facility] [place] [address] documented as of this encounter Procedures Procedure [...] Glucose, POC 351(H) 65 - 199 mg/dL [facility] Comment: Supplemental ranges: <140 mg/dL before meals <180 mg/dL all other times of the day Blood specimen (specimen) 01/12/2019 10:09 AM EDT 01/12/2019 10:09 AM EDT Parvez Meyers MD POINT OF CARE TEST O KAMARI Performing Organization Address [facility] Co de Phone Number [facility] [place] [address] * (ABNORMAL) POCT Glucose (01/12/2019 7:33 AM EDT) Glucose, POC 224(H) 65 - 199 mg/dL [facility] Comment: Supplemental ranges: <140 mg/dL before meals <180 mg/dL all other times of the day Blood specimen (specimen) 01/12/2019 7:33 AM EDT 01/12/2019 7:33 AM EDT Parvez Meyers MD POINT OF CARE TEST O KAMARI Performing Organization Address City/[facility] Co de Phone Number [facility] [place] [address] * Differential, Automated (01/12/2019 7:18 AM EDT) Neutrophil % 59.6 % [facility] Neutrophil Absolute 5.23 1.70 - 6.10 x10(3)/[facility] Lymph % 29.0 % [facility] Lymphocytes Abs 2.5 0.9 - 3.2 x10(3)/[facility] Monocyte % 6.6 % [facility] Monocyte Abs 0.6 0.3 - 0.9 x10(3)/[facility] Eos % 3.8 % [facility] Eosinophils Abs 0.3 0.0 - 0.4 x10(3)/[facility] Basophil % 0.5 % [facility] Baso Absolute 0.0 0.0 - 0.1 x10(3)/[facility] Immature Gran % 0.50 % [facility] Comment: Immature granulocytes(IG's)percentage and absolute count will include metamyelocytes, myelocytes, and promyelocytes. Blood smears from CBCs yielding IG's will be scanned manually for concordance. If this scan disagrees with the automated IG or if promyelocytes are noted, a manual differential will be performed. Immature Gran Absolute 0.04 0.00 - 0.04 x10(3)/[facility] Blood specimen (specimen) 01/12/2019 7:18 AM EDT 01/12/2019 7:38 AM EDT Narrative Resulting Agency Comment Spec In Lab Parvez Meyers MD HEMATOLOGY ORDERABLE S [facility] [place] [address] * Hemogram (01/12/2019 7:18 AM EDT) White Blood Cell 8.8 4.0 - 9.5 x10(3)/[facility] Red Blood Cell 4.03 4.00 - 5.21 x10(6)/[facility] Hemoglobin 11.7 11.7 - 15.5 gm/dL [facility] Hematocrit 36.2 35.7 - 45.8 % [facility] Mean Cell Volume 89.8 82.6 - 94.4 fL [facility] Mean Cell Hemoglobin 29.0 27.1 - 32.0 pg [facility] Mean Cell Hemoglobin Concentration 32.3 31.7 - 35.0 gm/dL [facility] Platelet 224 145 - 357 x10(3)/[facility] RDW Standard Deviation 44.5 37.0 - 46.0 fL [facility] RDW coefficient of variation 13.5 11.5 - 14.1 % [facility] Mean Platelet Volume 10.6 7.6 - 12.9 fL [facility] NRBC% auto 0.0 % [facility] NRBC Absolute 0.000 0.000 - 0.000 x10(3)/mcL [facility] Blood specimen (specimen) 01/12/2019 7:18 AM EDT 01/12/2019 7:38 AM EDT Narrative Resulting Agency Comment Spec In Lab Parvez Meyers MD HEMATOLOGY ORDERABLE S [facility] [place] [address] * (ABNORMAL) BMP w/fasting Glucose (01/12/2019 7:18 AM EDT) Glucose Fasting 216(H) 65 - 99 mg/dL [facility] Comment: ?Fasting* Glucose Interpretive [...] of Diabetes Mellitus, Position Statement from the [place] [employer]. ??Diabetes Care, Volume 33, Supplement 1, Apr 2009 Blood Urea Nitrogen 18 8 - 18 mg/dL [facility] Creatinine 0.89 0.70 - 1.20 mg/dL [facility] Sodium 141 135 - 145 mmol/L [facility] Potassium 4.4 3.5 - 5.0 mmol/L [facility] Comment: Please note: ??Patients with WBC >100,000 may have falsely elevated Potassium levels. ??For accurate Potassium quantification in these patients send serum separator tube (gold top) for subsequent determinations. ??Contact the Clinical Chemistry Laboratory if there are any questions. Chloride 101 98 - 107 mmol/L [facility] Carbon Dioxide 27 22 - 31 mmol/L [facility] Anion Gap 13 5 - 15 mmol/L [facility] Calcium 9.4 8.5 - 10.5 mg/dL [facility] Est Glomerular Filtration Rate 64 >=60 mL/min/1. 73 m?? [facility] Comment: The eGFR was calculated using the CKD-EPI equation. As with all creatinine based estimates of kidney function, eGFR values calculated with the CKD-EPI equation are not accurate in patients with acute kidney failure, extremes of body mass or the acutely ill. [email or web address]/[facility] eGFR 74 >=60 mL/min/1. 73 m?? [facility] Comment: The eGFR was calculated using the CKD-EPI equation. As with all creatinine based estimates of kidney function, eGFR values calculated with the CKD-EPI equation are not accurate in patients with acute kidney failure, extremes of body mass or the acutely ill. [email or web address] Blood specimen (specimen) 01/12/2019 7:18 AM EDT 01/12/2019 7:38 AM EDT Narrative Resulting Agency Comment Spec In Lab Parvez Meyers MD CHEMISTRY ORDERABLES [facility] [place] [place] [address] * SCAN DOC: IMPLANTABLE DEVICES (01/12/2019 12:00 AM EDT) Narrative 01/12/2019 12:00 AM EDT Ordered by an unspecified provider. Scanning Provider MEDIA MGR SCAN EXT O RDR/RSLT documented in this encounter Visit Diagnoses Not on filedocumented in this encounter Administered Medications Inactive Administered [...] to induce or maintain moderate sedation per [facility] Moderate Sedation Policy for the duration of the EP procedure., As needed to induce or maintain moderate sedation per [facility] Moderate Sedation Policy for the duration of [...] to induce or maintain moderate sedation per [facility] Moderate Sedation Policy for the duration of the EP procedure., As needed to induce or maintain moderate sedation per [facility] Moderate Sedation Policy for the duration of [...] to induce or maintain moderate sedation per [facility] Moderate Sedation Policy for the duration of the EP procedure., As needed to induce or maintain moderate sedation per [facility] Moderate Sedation Policy for the duration of [...] to induce or maintain moderate sedation per [facility] Moderate Sedation Policy for the duration of the EP procedure., As needed to induce or maintain moderate sedation per [facility] Moderate Sedation Policy for the duration of [...] RN) documented in this encounter Care Teams Occasional Caregiver Relationship Specialty Start Date End Date Alexander Adams MD [address] [place] [address] PCP - General 04/06/12 07/26/23 documented as of this encounter
--- OUTSIDE RECORDS SUMMARY | 2024-02-15 22:02 | XMS_ITS | Encounter Summary ---
[place] [address] Care Team Providers Care Parts Driver Name Role Phone Alexander Adams MD Primary Care Provider [phone] Reason for Visit * Reason Comments Follow-up CAD, Medtronic pacem layton battery check Encounter Details Date Type Department Care Team (Late st Contact Info) Description 08/29/2018 8:20 AM EDT Office Visit Cardiology at [address] [phone] Rudy Moralez Jr., MD [address] [place] [address] Coronary artery disease, angina presence unspecified, unspecified vessel or lesion type, unspecified whether kaibab or transplanted heart; Ventricular fibrillation- with Medtronic ICD implanted 2009; Essential hypertension Social History Tobacco Use Types [...] Sign Reading Time Taken Comments Blood Pressure 132/70 08/29/2018 8:18 AM EDT Pulse 88 08/29/2018 8:18 AM EDT Temperature - - Respiratory Rate 16 08/29/2018 8:18 AM EDT Oxygen Saturation - - Inhaled Oxygen Concentration - - Weight 66.2 kg (146 lb) 08/29/2018 8:18 AM EDT Height 172.7 cm (5' 8) 08/29/2018 8:18 AM EDT Body Mass Index 22.2 08/29/2018 8:18 AM EDT documented in this encounter Progress Notes * Rudy Moralez Jr., MD - 08/29/2018 8:20 AM EDT Subjective: Patient ID: Liane Cole is a 72 y.o. female. Chief Complaint Patient presents with ??? Follow-up CAD, Medtronic pacemaker battery check HPI She is feeling well and denies chest pain or limiting dyspnea. Her foot issues limit long walksbut she has been doing chores and work comfortably. She denies palpitations or dizziness. She has had no ICD firing. She denies edema, PND or orthopnea. Review of Systems mild allergy symptoms- has been taking claritin-D Allergies Allergen Reactions ??? Lisinopril Anaphylaxis ??? [...] Ventricular fibrillation- with Medtronic ICD implanted 200906/21/2009 [facility]--- VF presenting, ROSC post shock by EMS, intubated; Dual chamber ICD - 07/02/2009 Medtronic John II VR Model# [id number], Serial# [id number] ??? CAD, out of hosp arrest and [...] - Insulin pump Objective: Physical Exam BP 132/70 (BP Location (NBP): Right arm, Patient Position: Sitting, BP Cuff Sizes: Adult (25-34 cm)) Pulse 88 Resp 16 Ht 172.7 cm (5' 8) Wt 66.2 kg (146 lb) LMP (LMP Unknown) BMI 22.20 kg/m?? NAD No JVD/HJR Chest clear Cor RR, no murmur Abd benign Ext no edema Interrogation: VT 0 VT-NS 19 VF 0 Mode VVI 40 Ventricular Impedance (ohms) 646, defib 51 Threshold (volts) nt P/R (mVolts) 3.1 % paced 0 Battery 2.64 V (KP 2.63) charge time 12 s Rate Responsiveness adequate for level of activity Electrogram clean Reprogramming: none Assessment and Plan: ICD nearing but not at KP- continue close monitoring Allergy medication- decongestant could trigger arrhythmias- advised to take regular claritin Well controlled angina Good BP Follow up 2 months to keep close eye on battery voltage documented in this encounter Plan of Treatment Upcoming Encounters Date Type Department Care Team (Late st Contact Info) Description 02/29/2024 10:00 AM EST Office Visit Cardiology at [address] [phone] Ruben Hartman, [facility] [place] [address] 04/26/2024 10:00 AM EST Hospital Encounter Non-[place] [address] Arrived 09/24/2024 4:00 PM EDT Office Visit Cardiology at [address] [phone] Nathaniel Keita MD [place] [address] documented as of this encounter Visit Diagnoses Diagnosis Coronary artery disease, angina presence unspecified, unspecified vessel or lesion type, unspecified whether kaibab or transplanted heart Ventricular fibrillation- with Medtronic ICD implanted 2009 Ventricular fibrillation Essential hypertension Unspecified essential hypertension documented in this encounter Care Teams Parts Driver Relationship Specialty Start Date End Date Alexander Adams MD [address] [place] [address] PCP - General 04/06/12 07/26/23 documented as of this encounter
--- OUTSIDE RECORDS SUMMARY | 2024-02-15 22:02 | XMS_ITS | Encounter Summary ---
Author Organization [facility] [place] [address] Care Team Providers Care Die Cutter Diamond Name Role Phone Alexander Admas MD Primary Care Provider [phone] Encounter Details Date Type Department Care Team (Late st Contact Info) Description 03/30/2017 Abstract Cardiology at [address] [phone] Laura Marin, RN Social History Tobacco Use Types Packs/Day [...] st Contact Info) Description 02/29/2024 10:00 AM [facility] Office Visit Cardiology at [address] [phone] Ruben Hartman PA [facility] [place] [address] 04/26/2024 10:00 AM EST Hospital Encounter Non-Invasive Cardiology Lab [facility] [place] [address] Arrived 09/24/2024 4:00 PM EDT Office Visit Cardiology at [address] [place] [address] Nathaniel Keita MD [facility] [place] [address] documented as of this encounter Visit Diagnoses Not on filedocumented in this encounter Care Teams Die Cutter Diamond Relationship Specialty Start Date End Date Alexander Adams MD [address] [place] [address] PCP - General 04/06/12 07/26/23 documented as of this encounter
--- OUTSIDE RECORDS SUMMARY | 2024-02-15 22:02 | XMS_ITS | Encounter Summary ---
[place] [address] Care Team Providers Care Cut Off Saw Operator Metal Name Role Phone Alexander Adams MD Primary Care Provider [phone] Encounter Details Date Type Department Care Team (Latest Contact Info) Description 09/24/2020 - 09/24/2020 11:59 PM EDT Hospital Encounter Non-[place] [address] Vimal Meyers MD [facility] [place] [address] Ventricular fibrillation Discharge Disposition: Home Social History [...] 10:00 AM EST Office Visit Cardiology at [address] [phone] Ruben Hartman, PA [facility] [place] [address] 04/26/2024 10:00 AM EST Hospital Encounter Non-[place]vasive [place] [address] Arrived 09/24/2024 4:00 PM EDT Office Visit Cardiology at [address] [phone] Nathaniel Keita MD [facility] [place] [address] documented as of this encounter Procedures Procedure Name Priority Date/Time Associated Diagnosis Comments ICD INTERROGATION 3 MONTH Routine 09/25/2020 8:03 AM EDT Ventricular fibrillation documented in this encounter Results * ICD INTERROGATION 3 MONTH (09/25/2020 8:03 AM EDT) Anatomical Region Laterality Modality Other Narrative 10/02/2020 2:23 PM EDT Cardiac Device Remote Monitoring Report Summary Medtronic Carelink Device: ICD Model: VISIA AF Battery: 3.01 v, estimated longevity 10 years, 6 months Pacing percentage: Minimal pacing Events: The presenting rhythm is ventricular sensed Slight decrease in nonsustained ventricular tachycardia since last remote download Impression Normal device function Follow Up As per schedule - in-clinic and remote VIMAL MEYERS MD 10/02/20 Vimal Meyers MD IMPLANTABLE CARDIAC DEVICE documented in this encounter Visit Diagnoses Diagnosis Ventricular fibrillation documented in this encounter Care Teams Cut Off Saw Operator Metal Relationship Specialty Start Date End Date Alexander Adams MD [address] [place] [address] PCP - General 04/06/12 07/26/23 documented as of this encounter
--- OUTSIDE RECORDS SUMMARY | 2024-02-15 22:02 | XMS_ITS | Encounter Summary ---
[place] [address] Care Team Providers Care Photographic Supervisor Name Role Phone Alexander Adams MD Primary Care Provider [phone] Encounter Details Date Type Department Care Team (Latest Contact Info) Description 03/25/2021 - 03/25/2021 11:59 PM EST Hospital Encounter Non-Invasive [place] [address] Alyson Oshea MD [facility] [place] [address] Ventricular fibrillation Discharge Disposition: Home Social History [...] AM EST Office Visit Cardiology at [address] [phone] Ruben Hartman, [facility] [place] [address] 04/26/2024 10:00 AM EST Hospital Encounter Non-Invasive Cardiology Lab [facility] [place] [address] Arrived 09/24/2024 4:00 PM EDT Office Visit Cardiology at [address] [phone] Nathaniel Keita MD [facility] [place] [address] documented as of this encounter Procedures Procedure Name Priority Date/Time Associated Diagnosis Comments ICD INTERROGATION 3 MONTH Routine 03/26/2021 12:48 PM EST Ventricular fibrillation documented in this encounter Results * ICD INTERROGATION 3 MONTH (03/26/2021 12:48 PM EST) Anatomical Region Laterality Modality Other Narrative 03/30/2021 1:19 PM EST Outpatient remote interrogation report: See full report as a linked pdf document Date of transmission: 03/26/2021 Device health and wellness director: SWATHI Device type: SC ICD Presenting rhythm: vs ADMINISTRATIVE SERVICES DIRECTOR <1% Battery: 3.01V, 10 years Episodes: Multiple brief tachy events; SVT vs NSVT Stable lead trends. Activity 1 hr/day Alyson Oshea MD 03/30/2021 1:17 PM Alyson Oshea MD IMPLANTABLE CARDIAC DEVICE documented in this encounter Visit Diagnoses Diagnosis Ventricular fibrillation documented in this encounter Care Teams Photographic Supervisor Relationship Specialty Start Date End Date Alexander Adams MD [address] [place] [address] PCP - General 04/06/12 07/26/23 documented as of this encounter
--- OUTSIDE RECORDS SUMMARY | 2024-02-15 22:03 | XMS_ITS | Encounter Summary ---
[place] [address] Care Team Providers Care Account Support Manager Name Role Phone Alexander Adams MD Primary Care Provider [phone] Reason for Visit * Reason Comments Cardiomyopathy ICD check Follow-up Encounter Details Date Type Department Care Team (Late st Contact Info) Description 05/16/2014 9:00 AM EST Office Visit Cardiology at [address] [phone] Kellie Geronimo, SANDRA Ventricular fibrillation- with Medtronic ICD implanted 2009 [...] Sign Reading Time Taken Comments Blood Pressure 130/60 05/16/2014 9:02 AM EST Pulse 88 05/16/2014 9:02 AM EST Temperature - - Respiratory Rate - - Oxygen Saturation 99% 05/16/2014 9:02 AM EST Inhaled Oxygen Concentration - - Weight 88.5 kg (195 lb) 05/16/2014 9:02 AM EST Height 172.7 cm (5' 8) 05/16/2014 9:02 AM EST Body Mass Index 29.65 05/16/2014 9:02 AM EST documented in this encounter Progress Notes * Kellie Green - 05/16/2014 9:25 AM EST DSE Monitoring Ms. Cole is a 68 years old female who presents to the clinic today for ICD interrogation. The ICDwas implanted 07/01/2009 due to Secondary prevention s/p ventricular fibrillation cardiac arrest. She voices no device-related complaints today and she is seeing Dr. Beasley as well. Pt enrolled in SLS study. PCP: ALEXANDER ADAMS MD Commutator V Ring Assembler: Milind Beasley MD Device and lead information Final Parameters: Ventricular lead: Viibartronic Sprint Quattro Model# 6947-58 cm Serial #[id number] ??? Bipolar, steroid-tipped, active-fixation IS-1, DF-1 lead ??? Access: Left axillary vein ??? Location: Right ventricular apex ??? R wave, ICD: 8.0 mV ??? Pacing threshold, ICD: 1.0 V at 0.5 ms ??? Impedance, ICD: 532 ohms ??? HVB Impedance 33 ohms ??? SVC Impedance 39 ohms ??? Pace the diaphragm at 10 V: No Pulse generator: Medtronic John II VR Model# [id number] Serial# [id number] ??? Single-chamber ICD ??? Location: Subcutaneous Parameters: VF detection rate: >200 bpm VF therapy: ATP during charging, 30J, 35J x 5 FVT detection rate: via VF 250 bpm FVT therapy: Burst(1), 30J, 35J x 4 VT detection rate:182 bpm VT therapy: Burst(3), 20J, 35J x 4 Enhancement: Wavelet, VT Monitor Bradycardia pacing: VVI 40 Follow-up Battery status: 3.08 V BREAD OVEN OPERATOR: 2.63 V Charge time: 8.8 sec 01/01/2014 SIC: 0 Pace/Sensing Leads -Right Ventricular: R wave: 5.1 mV (stable per trend review) Threshold: 0.75 V at 0.4 ms Impedance: 779 ohms EGM quality: clean -Shocking leads: V Defib impedance: 45 ohms SVC (HVX) impedance: 59 ohms EGM quality: clean Lead impedance values all stable Therapy Administered: None Observations: 12, NSVT seen on interrogation. EGMs suggest brief VT with VCL ~ 280ms-330 ms. 6-12 beats in duration. Patient states feeling the occasional palpitation. Pacing percentages: VS 100% Histogram is well distributed. Underlying rhythm: SR 80-90 bpm Incision site: well healed left chest. Impression: Appropriate ICD function. Changes made this session: None Plan: 3 mos Care Link. 6 mos device clinic I have personally analyzed and reviewed the device printout, and noted that the device is functioning normally. Donavan De La O MD documented in this encounter Plan of Treatment Upcoming Encounters Date Type Department Care Team (Late st Contact Info) Description 02/29/2024 10:00 AM EST Office Visit Cardiology at [address] [phone] Ruben Hartman, LAURA [facility] [place] [place] [address] 04/26/2024 10:00 AM EST Hospital Encounter Non-[place] [address] Arrived 09/24/2024 4:00 PM EDT Office Visit Cardiology at [address] [address] Nathaniel Keita MD [facility] [place] [place] [address] documented as of this encounter Visit Diagnoses Diagnosis Ventricular fibrillation- with Medtronic ICD implanted 2009 Ventricular fibrillation documented in this encounter Care Teams Account Support Manager Relationship Specialty Start Date End Date Alexander Adams MD [address] [place] [address] PCP - General 04/06/12 07/26/23 documented as of this encounter
--- OUTSIDE RECORDS SUMMARY | 2024-02-15 22:03 | XMS_ITS | Encounter Summary ---
[place] [address] Care Team Providers Care Vice President Research Name Role Phone Alexander Adams MD Primary Care Provider [phone] Reason for Visit * Reason Onset Date Comments Medication Refill 12/06/2014 Encounter Details Date Type Department Care Team (Late st Contact Info) Description 12/06/2014 [place] [address] Jaylin Salcido [facility] [place] [address] Social History Tobacco Use Types Packs/Day Years [...] 10:00 AM EST Office Visit Cardiology at [address] [place] [phone] Ruben Hartman, LAURA [facility] [place] [address] 04/26/2024 10:00 AM EST Hospital Encounter Non-Invasive Cardiology Lab [facility] [place] [address] Arrived 09/24/2024 4:00 PM EDT Office Visit Cardiology at [address] [place] [address] Nathaniel Keita MD [facility] [place] [address] documented as of this encounter Visit Diagnoses Not on filedocumented in this encounter Care Teams Vice President Research Relationship Specialty Start Date End Date Alexander Adams MD [address] [place] [address] PCP - General 04/06/12 07/26/23 documented as of this encounter
--- OUTSIDE RECORDS SUMMARY | 2024-02-15 22:03 | XMS_ITS | Encounter Summary ---
[place] [address] Care Team Providers Care Rn Float Name Role Phone Alexander Adams MD Primary Care Provider [phone] Reason for Visit * Reason Comments PDR 14 month F/U for PDR OU post PRP OU Encounter Details Date Type Department Care Team (Late st Contact Info) Description 05/29/2014 1:15 PM EST Follow-[place] [address] Melissa Cleary MD Diabetic retinopathy of left eye, due to underlying condition, without macular edema, with proliferative retinopathy Discharge Disposition: Home Social History Tobacco Use [...] as of this encounter Progress Notes * Melissa Cleary MD - 05/29/2014 2:51 PM EST Stable PDR OU, with full PRP and complete involution. Plan: RTC 1 yr. documented in this encounter Plan of Treatment Upcoming Encounters Date Type Department Care Team (Late st Contact Info) Description 02/29/2024 10:00 AM EST Office Visit Cardiology at [address] [address] Ruben Hartman, PA [facility] [place] [address] 04/26/2024 10:00 AM EST Hospital Encounter Non[place] [address] Arrived 09/24/2024 4:00 PM EDT Office Visit Cardiology at [address] [phone] Nathaniel Keita MD [facility] [place] [address] documented as of this encounter Visit Diagnoses Diagnosis Diabetic retinopathy of left eye, due to underlying condition, without macular edema, with proliferative retinopathy documented in this encounter Care Teams Rn Float Relationship Specialty Start Date End Date Alexander Adams MD [address] [place] [address] PCP - General 04/06/12 07/26/23 documented as of this encounter
--- OUTSIDE RECORDS SUMMARY | 2024-02-15 22:03 | XMS_ITS | Encounter Summary ---
[place] [address] Care Team Providers Care Seed Laboratory Technician Name Role Phone Alexander Adams MD Primary Care Provider [phone] Encounter Details Date Type Department Care Team (Late st Contact Info) Description 08/15/2014 External Results Cardiology at [address] [phone] Alexander Adams MD [address] [place], [place] [id number] Social History Tobacco Use Types Packs/Day Years [...] AM EST Office Visit Cardiology at [address] [place] [address] Ruben Hartman, PA [facility] [place] [address] 04/26/2024 10:00 AM EST Hospital Encounter Non-Invasive Cardiology [place] [address] Arrived 09/24/2024 4:00 PM EDT Office Visit Cardiology at [address] [place] [address] Nathaniel Keita MD [facility] [place] [address] documented as of this encounter Procedures Procedure Name Priority Date/Time Associated Diagnosis Comments EP DEVICE SCAN Routine 08/13/2014 documented in this encounter Results * Scan Doc: EP Device (08/13/2014) Anatomical Region Laterality Modality Other Alexander Adams MD MEDIA MGR SCAN EXT O RDR/RSLT documented in this encounter Visit Diagnoses Not on filedocumented in this encounter Care Teams Seed Laboratory Technician Relationship Specialty Start Date End Date Alexander Adams MD [address] [place] [address] PCP - General 04/06/12 07/26/23 documented as of this encounter
--- OUTSIDE RECORDS SUMMARY | 2024-02-15 22:03 | XMS_ITS | Encounter Summary ---
[place] [address] Care Team Providers Care Ornamental Ironworker Helper Name Role Phone Alexander Adams MD Primary Care Provider [phone] Encounter Details Date Type Department Care Team (Late st Contact Info) Description 08/13/2014 Orders Only Cardiology at [address] [address] Social History Tobacco Use Types Packs/Day Years [...] 10:00 AM EST Office Visit Cardiology at [address] [phone] Ruben Hartman, LAURA [place] [address] 04/26/2024 10:00 AM EST Hospital Encounter Non-Invasive [place] [address] Arrived 09/24/2024 4:00 PM EDT Office Visit Cardiology at [address] [place] [address] Nathaniel Keita MD [facility] [place] [address] documented as of this encounter Procedures Procedure Name Priority Date/Time Associated Diagnosis Comments CARDIAC DEVICE CHECK - REMOTE Routine 08/13/2014 7:35 AM EDT documented in this encounter Results * (ABNORMAL) Cardiac device check - Remote (08/13/2014 7:35 AM EDT) Date Time Interrogation Session [id number] IDCO Implantable Pulse Generator Geotechnical Engineer Medtronic IDCO Implantable Pulse Generator Model John II VR [id number] IDCO Implantable Pulse Generator Serial Number [id number] IDCO Type Interrogation Session Remote IDCO Implantable Pulse Generator Type Defibrillator IDCO Implantable Pulse Generator Implant Date [id number] IDCO Marcel Setting Mode (NBG Code) VVI IDCO Marcel Setting Lower Rate Limit 40 {beats}/ min IDCO Marcel Setting Hysterisis Rate DISABLED IDCO Lead Channel Setting Sensing Polarity Bipolar IDCO Lead Channel Setting Sensing Anode Location Right Ventricle IDCO Lead Channel Setting Sensing Anode Terminal Ring IDCO Lead Channel Setting Sensing Cathode Location Right Ventricle IDCO Lead Channel Setting Sensing Cathode Terminal Tip IDCO Lead Channel Setting Sensing Sensitivity 0.3 mV IDCO Lead Channel Setting Pacing Polarity Bipolar IDCO Lead Channel Setting Pacing Anode Location Right Ventricle IDCO Lead Channel Setting Pacing Anode Terminal Ring IDCO Lead Channel Setting Sensing Cathode Location Right Ventricle IDCO Lead Channel Setting Sensing Cathode Terminal Tip IDCO Lead Channel Setting Pacing Pulse Width 0.4 ms IDCO Lead Channel Setting Pacing Amplitude 2 V IDCO Zone Setting Type Category AT/AF IDCO Zone Setting Type Category VF IDCO Zone Setting Detection Interval 300 ms IDCO Zone Setting Detection Beats Numerator 18 {beats} IDCO Zone Setting Detection Beats Denominator 24 {beats} IDCO Zone Setting Type Category VT IDCO Zone Setting Detection Interval 240 ms IDCO Zone Setting Detection Interval 330 ms IDCO Zone Setting Detection Interval 370 ms IDCO Battery Date Time of Measurements [id number] IDCO Battery Status OK IDCO Battery BUSINESS MANAGEMENT ASSOCIATE Trigger 2.6251 IDCO Battery Voltage 3.06 V IDCO Capacitor Charge Type Reformation IDCO Capacitor Last Charge Date Time [id number] IDCO Capacitor Charge Time 8.908 s IDCO Capacitor Charge Energy 35 J IDCO Episode Identifier 104 IDCO Episode Date Time [id number] IDCO Episode Duration 6 s IDCO Episode Identifier 103 IDCO Episode Date Time [id number] IDCO Episode Duration 2 s IDCO Episode Identifier 102 IDCO Episode Date Time [id number] IDCO Episode Duration 1 s IDCO Episode Identifier 101 IDCO Episode Date Time [id number] IDCO Episode Duration 0 s IDCO Episode Identifier 100 IDCO Episode Date Time [id number] IDCO Episode Duration 1 s IDCO Episode Identifier 99 IDCO Episode Date Time [id number] IDCO Episode Duration 1 s IDCO Episode Identifier 98 IDCO Episode Date Time [id number] IDCO Episode Duration 2 s IDCO Episode Identifier 97 IDCO Episode Date Time [id number] IDCO Episode Duration 1 s IDCO Episode Identifier 96 IDCO Episode Date Time [id number] IDCO Episode Duration 3 s IDCO Episode Identifier 95 IDCO Episode Date Time [id number] IDCO Episode Duration 6 s IDCO Episode Identifier 94 IDCO Episode Date Time [id number] IDCO Episode Duration 3 s IDCO Episode Identifier 93 IDCO Episode Date Time [id number] IDCO Episode Duration 2 s IDCO Episode Identifier 92 IDCO Episode Date Time [id number] IDCO Episode Duration 3 s IDCO Episode Identifier 91 IDCO Episode Date Time [id number] IDCO Episode Duration 2 s IDCO Episode Identifier 90 IDCO Episode Date Time [id number] IDCO Episode Duration 1 s IDCO Marcel Statistic Date Time Start [id number] IDCO Marcel Statistic Date Time End 00558141332625 IDCO Marcel Statistic RV Percent Paced 0.00 % IDCO Therapy Statistic Recent Shocks Delivered 0 IDCO Therapy Statistic Recent Shocks Aborted 0 IDCO Therapy Statistic Recent ATP Delivered 0 IDCO Therapy Statistic Recent Date Time Start 18214280162185 IDCO Therapy Statistic Recent Date Time End [id number] IDCO Therapy Statistic Total Shocks Delivered 0 IDCO Therapy Statistic Total Shocks Aborted 0 IDCO Therapy Statistic Total ATP Delivered 0 IDCO Therapy Statistic Total Date Time Start 44850082370374 IDCO Therapy Statistic Total Date Time End [id number] IDCO Episode Statistic Recent Count 0 IDCO Episode Statistic Type Category VF IDCO Episode Statistic Recent Count 0 IDCO Episode Statistic Type Category VT IDCO Episode Statistic Recent Count 0 IDCO Episode Statistic Recent Count 0 IDCO Episode Statistic Recent Count 13 IDCO Episode Statistic Recent Count 0 IDCO Episode Statistic Type Category SVT IDCO Episode Statistic Recent Date Time Start 97587259743401 IDCO Episode Statistic Recent Date Time End 68703296162866 IDCO Episode Statistic Recent Date Time Start [id number] IDCO Episode Statistic Recent Date Time End 75043040318901 IDCO Episode Statistic Recent Date Time Start 99044622297756 IDCO Episode Statistic Recent Date Time End 49151494259582 IDCO Episode Statistic Recent Date Time Start 67762236172813 IDCO Episode Statistic Recent Date Time End 01935788001675 IDCO Episode Statistic Recent Date Time Start 47643507080856 IDCO Episode Statistic Recent Date Time End 92702316359675 IDCO Episode Statistic Recent Date Time Start 58242670273338 IDCO Episode Statistic Recent Date Time End 09073529926250 IDCO Episode Statistic Total Count 0 IDCO Episode Statistic Type Category VF IDCO Episode Statistic Total Count 0 IDCO Episode Statistic Type Category VT IDCO Episode Statistic Total Count 0 IDCO Episode Statistic Total Count 0 IDCO Episode Statistic Total Count 104 IDCO Episode Statistic Total Count 0 IDCO Episode Statistic Type Category SVT IDCO Episode Statistic Total Date Time Start 55040579513138 IDCO Episode Statistic Total Date Time End 08365058100499 IDCO Episode Statistic Total Date Time Start 10558984804804 IDCO Episode Statistic Total Date Time End 52729884623238 IDCO Episode Statistic Total Date Time Start 07766341366565 IDCO Episode Statistic Total Date Time End 43704264556172 IDCO Episode Statistic Total Date Time Start 87643575541473 IDCO Episode Statistic Total Date Time End 10913804461457 IDCO Episode Statistic Total Date Time Start 66129587064964 IDCO Episode Statistic Total Date Time End 65231411603234 IDCO Episode Statistic Total Date Time Start 42054338587465 IDCO Episode Statistic Total Date Time End 08875675833370 IDCO Anatomical Region Laterality Modality Other 08/13/2014 7:35 AM EDT Physician Cardiology IMPLANTABLE CARD IAC DEVICE documented in this encounter Visit Diagnoses Not on filedocumented in this encounter Care Teams Ornamental Ironworker Helper Relationship Specialty Start Date End Date Alexnader Adams MD [address] [place] [address] PCP - General 04/06/12 07/26/23 documented as of this encounter
--- OUTSIDE RECORDS SUMMARY | 2024-02-15 22:03 | XMS_ITS | Encounter Summary ---
Author Organization [facility] [place] [address] Care Team Providers Care Forest Resource Specialist Name Role Phone Alexander Adams MD Primary Care Provider [phone] Reason for Visit * Reason Onset Date Comments Medication Refill 11/12/2015 Encounter Details Date Type Department Care Team (Late st Contact Info) Description 11/12/2015 Refill [place]ocr[place] [address] Donna Driscoll LNA Social History Tobacco Use [...] 10:00 AM EST Office Visit Cardiology at [address] [phone] Ruben Hartman, LAURA [facility] [place] [address] 04/26/2024 10:00 AM EST Hospital Encounter Non-Invasive Cardiology Lab [facility] [place] [address] Arrived 09/24/2024 4:00 PM EDT Office Visit Cardiology at [address] [place] [address] Nathaniel Keita MD [facility] [place] [address] documented as of this encounter Visit Diagnoses Not on filedocumented in this encounter Care Teams Forest Resource Specialist Relationship Specialty Start Date End Date Alexander Adams MD [address] [place] [address] PCP - General 04/06/12 07/26/23 documented as of this encounter
--- OUTSIDE RECORDS SUMMARY | 2024-02-15 22:03 | XMS_ITS | Encounter Summary ---
[place] [address] Care Team Providers Care Recenterer Name Role Phone Alexander Adams MD Primary Care Provider [phone] Reason for Visit * Reason Onset Date Comments Appointment 08/26/2015 Encounter Details Date Type Department Care Team (Late st Contact Info) Description 08/26/2015 [place] [phone] Melissa Cleary MD Appointment Social History Tobacco Use Types Packs/Day Years [...] encounter Miscellaneous Notes * Telephone Encounter - Dagmar Betancourt - 08/26/2015 11:07 AM EDT Lft msg to lance 1Y w NOLAN due 05/2015. documented in this encounter Plan of Treatment Upcoming Encounters Date Type Department Care Team (Late st Contact Info) Description 02/29/2024 10:00 AM EST Office Visit Cardiology at [address] [phone] Ruben Hartman PA [facility] [place] [address] 04/26/2024 10:00 AM EST Hospital Encounter Non-[place] [address] Arrived 09/24/2024 4:00 PM EDT Office Visit Cardiology at [address] [phone] Nathaniel Keita MD [facility] [place] [address] documented as of this encounter Visit Diagnoses Not on filedocumented in this encounter Care Teams Recenterer Relationship Specialty Start Date End Date Alexander Adams MD [address] [place] [address] PCP - General 04/06/12 07/26/23 documented as of this encounter
--- OUTSIDE RECORDS SUMMARY | 2024-02-15 22:03 | XMS_ITS | Encounter Summary ---
[place] [address] Care Team Providers Care Car Repair Supervisor Name Role Phone Alexander Adams MD Primary Care Provider [phone] Reason for Visit * Reason Comments Cardiomyopathy Encounter Details Date Type Department Care Team (Late st Contact Info) Description 11/28/2014 2:40 PM EDT Office Visit Cardiology at [address] [phone] Thaddeus Cespedes RN Ventricular fibrillation- with Medtronic ICD implanted 2009 Discharge Disposition: Home Social History Tobacco Use [...] Sign Reading Time Taken Comments Blood Pressure 108/58 11/28/2014 2:52 PM EDT Pulse 85 11/28/2014 2:52 PM EDT Temperature - - Respiratory Rate - - Oxygen Saturation 98% 11/28/2014 2:52 PM EDT Inhaled Oxygen Concentration - - Weight 78.5 kg (173 lb) 11/28/2014 2:52 PM EDT Height 172.7 cm (5' 8) 11/28/2014 2:52 PM EDT Body Mass Index 26.3 11/28/2014 2:52 PM EDT documented in this encounter Progress Notes * Thaddeus Cespedes RN - 11/28/2014 3:00 PM EDT DSE Monitoring Ms. Cole is a 69 years old female who presents to the clinic today for ICD interrogation. The ICDwas implanted 07/01/2009 due to Secondary prevention s/p ventricular fibrillation cardiac arrest. She voices no device-related complaints today Pt enrolled in SLS study. PCP: ALEXANDER ADAMS MD (General) Band Reamer Machine Operator: Milind Beasley MD Device and lead information Final Parameters: Ventricular lead: Medtronic Sprint Quattro Model# 6947-58 cm Serial #[id number] ??? Bipolar, steroid-tipped, active-fixation IS-1, DF-1 lead ??? Access: Left axillary vein ??? Location: Right ventricular apex ??? R wave, ICD: 8.0 mV ??? Pacing threshold, ICD: 1.0 V at 0.5 ms ??? Impedance, ICD: 532 ohms ??? HVB Impedance 33 ohms ??? SVC Impedance 39 ohms ??? Pace the diaphragm at 10 V: No Pulse generator: Medtronic John II VR Model# [id number] Serial# [id number] ??? Single-chamber ICD ??? Location: Subcutaneous Parameters: VF detection rate: >200 bpm VF therapy: ATP during charging, 30J, 35J x 5 FVT detection rate: via VF 250 bpm FVT therapy: Burst(1), 30J, 35J x 4 VT detection rate:182 bpm VT therapy: Burst(3), 20J, 35J x 4 Enhancement: Wavelet, VT Monitor Bradycardia pacing: VVI 40 Follow-up Battery status: 3.05 V RN CLINICAL REVIEW: 2.63 V Charge time: 8.9 sec 07/03/2014 SIC: 0 Pace/Sensing Leads -Right Ventricular: R wave: 5 mV (stable per trend review) Threshold: 1 V at 0.4 ms Impedance: 798 ohms EGM quality: clean -Shocking leads: V Defib impedance: 46 ohms SVC (HVX) impedance: 63 ohms EGM quality: clean Lead impedance values all stable Therapy Administered: None Observations: 47 NSVT recorded. Avg vent rate 176-211 bpm, all brief, similar to that seen before Pacing percentages: VS 100% Histogram is well distributed. Underlying rhythm: SR 80-90 bpm Incision site: well healed left chest. I have reviewed the programming printouts, and the device is functioning normally. Changes made this session: None Plan: 3 mos Care Link. 6 mos device clinic Nathan Gale MD documented in this encounter Plan of Treatment Upcoming Encounters Date Type Department Care Team (Late st Contact Info) Description 02/29/2024 10:00 AM EST Office Visit Cardiology at [address] [address] Ruben Hartman PA [facility] [address] 04/26/2024 10:00 AM EST Hospital Encounter Non-[place] [address] Arrived 09/24/2024 4:00 PM EDT Office Visit Cardiology at [address] [address] Nathaniel Keita MD [facility] [place] [address] documented as of this encounter Visit Diagnoses Diagnosis Ventricular fibrillation- with Medtronic ICD implanted 2009 Ventricular fibrillation documented in this encounter Care Teams Car Repair Supervisor Relationship Specialty Start Date End Date Alexander Adams MD [address] [place] [address] PCP - General 04/06/12 07/26/23 documented as of this encounter
--- OUTSIDE RECORDS SUMMARY | 2024-02-15 22:03 | XMS_ITS | Encounter Summary ---
[place] [address] Care Team Providers Care Picking Table Worker Name Role Phone Alexander Adams MD Primary Care Provider [phone] Reason for Visit * Reason Comments Diabetes Encounter Details Date Type Department Care Team (Late st Contact Info) Description 02/14/2014 9:30 AM EST Office [place] [address] Jaylin Salcido APRN [facility] [place] [address] Type I (juvenile type) diabetes mellitus with neurological manifestations, not stated as uncontrolled(250.61) Discharge Disposition: Home Social History Tobacco Use [...] Sign Reading Time Taken Comments Blood Pressure 164/69 02/14/2014 10:57 AM EST Pulse 80 02/14/2014 10:57 AM EST Temperature - - Respiratory Rate - - Oxygen Saturation - - Inhaled Oxygen Concentration - - Weight 86.3 kg (190 lb 3.2 oz) 02/14/2014 10:57 AM EST Height 172.7 cm (5' 8) 02/14/2014 10:57 AM EST Body Mass Index 28.92 02/14/2014 10:57 AM EST documented in this encounter Patient Instructions * Patient Instructions* Jaylin Salcido APRN - 02/14/2014 12:10 PM EST May need 1 or 2 more units of bolus before meals to get HGBA1C <8% documented in this encounter Progress Notes * Jaylin Salcido APRN - 02/14/2014 12:03 PM EST DATE OF VISIT: 02/14/2014. REASON FOR VISIT: Followup type 1 DM, now in poor control. Also, hypertension close to goal, hyperlipidemia at goal, overweight. BRIEF HISTORY: Presents for 90-day followup for managing type 1 DM with MiniMed insulin pump. DATE OF DIAGNOSIS OF DIABETES: Over 50 years ago. DIABETES REGIMEN: MiniMed 723 insulin pump, uses Humalog. Basal rates 12 a.m., 1.1; 4 a.m., 1.2; 7 a.m., 1.3; 12 noon, 1.2; 10 p.m., 1.15. Total basal 28.8. Total daily doses range from 35.8 to 45.8. 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 Followed closely by autocad detailer. History of cardiac arrest in 2009. Prevention strategies are up-to-date. She plans to get a flu vaccine tomorrow at PCP office. REVIEW OF SYSTEMS: Depression and Mood: Overall, is doing very well. 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 Eyes: No recent vision changes. No recent headaches or chest pain or shortness of breath. No recent GI symptoms. Appetite is good. Sleep Pattern: States she has never been a good sleeper. Extremities: She has much less back pain since surgery for fusion, is very pleased with the outcome. PHYSICAL EXAM: Appearance: She is overweight, 190 pounds. Blood pressure 164/69. Appears in excellent health. Ambulates with assistance of a cane related to neuropathy in feet and partial toe amputations and Charcot changes. Pleasant and talkative with good eye contact. Eyes: No retinopathy with green light exam. Neck: No thyromegaly or lymphadenopathy. Heart: Regular rate and rhythm. No murmurs. Lungs are clear to auscultation. 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 Pulses are present. Neuro: No sensation to 10 g of pressure. She has podiatry care with Dr. King in [place]. Hemoglobin A1c 8.6%, previous was 7.8%. IMPRESSION AND PLAN: Diabetes mellitus type 1 with complications. Reviewed glucose results. The patient was surprised that hemoglobin A1c was higher because she states her home glucose readings are just as good now as they were at previous office visit if not better. Advised the patient okay to take 1 or 2 more units of boluses, but not to change the basal rates. The patient discusses the need to return to Endocrinology every nine days especially during the winter months. Advised okay to have next appointment with PCP and return to Endocrinology in [address] Nichols. Will check hemoglobin A1c and other labs that she is due for. This was a 35-minute office visit with 34 minutes spent counseling face to face with the patient in the management of glucose levels, she has not been having low glucose levels recently, reviewed prevention and treatment of low glucose levels, reviewed blood pressure targets and cholesterol targets, reviewed her lab results and gave her a copy. Recent Results (from the past 72 hour(s)) COMPREHENSIVE METABOLIC PANEL (NON-FASTING) Result Value Range Glucose Lvl 183 60 - 199 mg/dL BUN 22 (*) 8 - 18 mg/dL Creatinine 1.05 0.70 - 1.20 mg/dL Sodium 139 135 - 145 mmol/L Potassium 4.6 3.5 - 5.0 mmol/L Chloride 101 98 - 107 mmol/L CO2 29 22 - 31 mmol/L Anion Gap 9 5 - 15 mmol/L Calcium 9.8 8.5 - 10.5 mg/dL Total Protein 6.9 6.4 - 8.3 gm/dL Albumin 3.9 3.2 - 5.2 gm/dL AST 32 (*) 0 - 30 unit/L ALT 31 (*) 0 - 30 unit/L Alk Phos 130 (*) 40 - 104 unit/L Total Bilirubin 0.4 0.2 - 1.3 mg/dL Bili, Direct 0.1 0.0 - 0.3 mg/dL Estimated GFR 52 (*) >=60 HEMOGLOBIN A1C Result Value Range Hemoglobin A1C 8.6 (*) <=5.6 % Est Avg Gluc 200 HDL/CHOL PROFILE Result Value Range Chol, Total 146 <=199 mg/dL HDL 39 (*) >=40 mg/dL Chol/HDL Ratio 3.7 LDL CHOLESTEROL, DIRECT Result Value Range LDL Chol Direct 89 <=99 mg/dL MICROALBUMIN, URINE, RANDOM Result Value Range U Creatinine 196 U Ran Malb Conc 20.3 U Ran Malb Calc 10 documented in this encounter Plan of Treatment Upcoming Encounters Date Type Department Care Team (Late st Contact Info) Description 02/29/2024 10:00 AM EST Office Visit Cardiology at [address] [phone] Ruben Hartman PA [facility] [place] [address] 04/26/2024 10:00 AM EST Hospital Encounter Non-[place] [address] Arrived 09/24/2024 4:00 PM EDT Office Visit Cardiology at [address] [phone] Nathaniel Keita MD [facility] [place] [address] documented as of this encounter Procedures Procedure Name Priority Date/Time Associated Diagnosis Comments U ALBUMIN/CRE RATIO Routine 02/14/2014 9 :44 AM EST Type I (juvenile type) diabetes mellitus with neurological manifestations, not stated as uncontrolled(250.61) LDL CHOLESTEROL, DIRECT Routine 02/14/2014 9:38 AM EST Type I (juvenile type) diabetes mellitus with neurological manifestations, not stated as uncontrolled(250.61) HDL/CHOL PROFILE Routine 02/14/2014 9:38 AM EST Type I (juvenile type) diabetes mellitus with neurological manifestations, not stated as uncontrolled(250.61) HEMOGLOBIN A1C Routine 02/14/2014 9:38 AM EST Type I (juvenile type) diabetes mellitus with neurological manifestations, not stated as uncontrolled(250.61) COMPREHENSIVE METABOLIC PANEL Routine 02/14/2014 9:38 AM EST Type I (juvenile type) diabetes mellitus with neurological manifestations, not stated as uncontrolled(250.61) documented in this encounter Results * TSH (08/15/2014 12:55 PM EDT) Thyroid Stimulating Hormone 0.66 0.27 - 4.20 mcIU/mL [facility] Blood specimen (specimen) 08/15/2014 12:55 PM EDT 08/15/2014 1:04 PM EDT Narrative Resulting Agency Comment Spec In Lab Chris Chatman MD CHEMISTRY ORDERABLES [facility] * (ABNORMAL) Hemoglobin A1c (08/15/2014 12:55 PM EDT) Hemoglobin A1c 7.6(H) 4.3 - 5.6 % [facility] Comment: Reference Range: 4.3 - 5.6% 5.7 - 6.4% - Increased Risk of Developing Diabetes Mellitus 6.5% - Consistent with diagnosis of Diabetes Mellitus In the absence of hyperglycemia (i.e. plasma glucose > 200 mg/dL) or classic symptoms of hyperglycemia a repeat measurement of HbA1c should be performed on a separate sample to confirm the diagnosis. Diagnosis and Classification of Diabetes Mellitus, Diabetes Care 2013; 36: Suppl. 1, G20-68 Estimated Average Glucose 171 mg/dL [facility] Comment: eAG equivalents for HbA1c percentages: HbA1c(%) ?eAG(mg/dL) 6.0 ?126 6.5 ?140 7.0 ?154 7.5 ?169 8.0 ?183 8.5 ?197 9.0 ?212 9.5 ?226 10.0 ? 240 Limitations: The eAG calculation has not been validated on women, individuals below 18 years old and above 70 years old, and individuals with hemoglobinopathies. Additional resources are available on the ADA website: http://GumGum.kooldiner/DHMCadacalc Alfred JEFFRIES, Risa J, Sergio R, et al. ??Translating the A1C assay into estimated average glucose values. ??Diabetes Care 2008:31(8):4071-6033. Blood specimen (specimen) 08/15/2014 12:55 PM EDT 08/15/2014 1:04 PM EDT Narrative Resulting Agency Comment Spec In Lab Chris Chatman MD CHEMISTRY ORDERABLES [facility] * Microalbumin, urine, random (02/14/2014 9:44 AM EST) Creatinine, Urine 196 mg/dL BECKY JACKSONIUM Albumin, Urine 20.3 mg/L JOSE Connor MILLENNIUM Albumin / Creatinin Ratio, Urine 10 mcg/mg Cr [facility] Comment: Reference Range* Random collection (mcg/mg creatinine) Normal ?<30 Microalbuminuria ?? 30 - 300 Clinical Albuminuria ?? >300 *[place] Diabetes Association. Diabetic Nephropathy. Diabetes Care 1997;(Suppl 1):S24-S27 Exercise within 24 hour, infection, fever, CHF, marked hyperglycemia, and marked hypertension may elevate urinary albumin excretion over baseline values. Urine specimen (specimen) 02/14/2014 9:44 AM EST 02/14/2014 9:51 AM EST Narrative Resulting Agency Comment Spec In Lab Chris Chatman MD URINE ORDERABLES Performing Organization Address [facility] de Phone Number [facility] * LDL Cholesterol, Direct (02/14/2014 9:38 AM EST) LDL Cholesterol, Direct 89 <=99 mg/dL [facility] Comment: The National Cholesterol Education Program (NCEP) has set the following guidelines for LDL Cholesterol: Reference range: ?? Optimal: ?<100 mg/dL ?? Near Optimal/Above Optimal: ?? 100-129 mg/dL ?? Borderline high: ?130-159 mg/dL ?? High: ? 160-189 mg/dL ?? Very high: ?>ln=712 mg/dL REJI 2001: 285(19):3062-7444 Blood specimen (specimen) 02/14/2014 9:38 AM EST 02/14/2014 9:51 AM EST Narrative Resulting Agency Comment Spec In Lab Chris Chatman MD CHEMISTRY ORDERABLES Performing Organization Address [facility] de Phone Number [facility] * (ABNORMAL) HDL/Cholesterol Profile (02/14/2014 9:38 AM EST) Cholesterol, Total 146 <=199 mg/dL [facility] Comment: Recommendations of the NCEP Adult Treatment Panel for the following risk cutoff thresholds for the [place] population: Desirable: <200 mg/dL Borderline High: 200-239 mg/dL High: > or = 240 mg/dL HDL Cholesterol 39(L) >=40 mg/dL ZAKIYA OLIVIA JANELJUWANANNIKA Comment: Reference range: ??Low HDL: ?? < 40 mg/dL ??Normal: ?40-60 mg/dL ??Desirable: > 60 mg/dL REJI 2001; 285(19):2962-6692 Cholesterol/HDL Ratio 3.7 ratio THOMPSON JANELCHAY Comment: A Cholesterol to HDL ratio below 4:1 is desirable. ??Studies suggest that increased CAD risk occurs at ratios above 5 for females and above 6 for men. ? [place] Heart Association ??(http://www.americanheart.org) ? Aurelia Int Med, 1994; 121:641 ? AM J Med, 1998; 105(1A):48S Blood specimen (specimen) 02/14/2014 9:38 AM EST 02/14/2014 9:51 AM EST Narrative Resulting Agency Comment Spec In Lab Chris Chatman MD CHEMISTRY ORDERABLES [facility]OMPSON JANELJUWANANNIKA * (ABNORMAL) Hemoglobin A1c (02/14/2014 9:38 AM EST) Hemoglobin A1c 8.6(H) <=5.6 % JOSE TENA Comment: Reference Range: 4.3 - 5.6% 5.7 - 6.4% - Increased Risk of Developing Diabetes Mellitus 6.5% - Consistent with diagnosis of Diabetes Mellitus In the absence of hyperglycemia (i.e. plasma glucose > 200 mg/dL) or classic symptoms of hyperglycemia a repeat measurement of HbA1c should be performed on a separate sample to confirm the diagnosis. Diagnosis and Classification of Diabetes Mellitus, Diabetes Care 2013; 36: Suppl. 1, A33-46 Estimated Average Glucose 200 mg/dL [facility] Comment: eAG equivalents for HbA1c percentages: HbA1c(%) ?eAG(mg/dL) 6.0 ?126 6.5 ?140 7.0 ?154 7.5 ?169 8.0 ?183 8.5 ?197 9.0 ?212 9.5 ?226 10.0 ? 240 Limitations: The eAG calculation has not been validated on women, individuals below 18 years old and above 70 years old, and individuals with hemoglobinopathies. Additional resources are available on the ADA website: http://GumGum.com/[facility] VINITAadacalc Alfred JEFFRIES, Risa J, Sergio R, et al. ??Translating the A1C assay into estimated average glucose values. ??Diabetes Care 2008:31(8):0905-6486. Blood specimen (specimen) 02/14/2014 9:38 AM EST 02/14/2014 9:51 AM EST Narrative Resulting Agency Comment Spec In Lab Chris Chatman MD CHEMISTRY ORDERABLES [facility] * (ABNORMAL) Comprehensive metabolic panel (non-fasting) (02/14/2014 9:38 AM EST) Glucose 183 60 - 199 mg/dL [facility] MILLENNIUM Comment:Diabetes: >=200 mg/d L plus symptoms Blood Urea Nitrogen 22(H) 8 - 18 mg/dL CERNER MILLENNIUM Creatinine 1.05 0.70 - 1.20 mg/dL CERNER MILLENNIUM Comment: Please note that the pediatric reference intervals supplied above were not validated at [facility]. Results from pediatric patients should be interpreted in conjunction to the patient's age, height and muscle mass. Sodium 139 135 - 145 mmol/L CERNER MILLENNIUM Potassium 4.6 3.5 - 5.0 mmol/L CERNER MILLENNIUM Comment: Please note: ??Patients with WBC >100,000 may have falsely elevated Potassium levels. ??For accurate Potassium quantification in these patients send serum separator tube (gold top) for subsequent determinations. ??Contact the Clinical Chemistry Laboratory if there are any questions. Chloride 101 98 - 107 mmol/L CERNER MILLENNIUM Carbon Dioxide 29 22 - 31 mmol/L CERNER MILLENNIUM Anion Gap 9 5 - 15 mmol/L CERNER MILLENNIUM Calcium 9.8 8.5 - 10.5 mg/dL CERNER MILLENNIUM Protein, Total 6.9 6.4 - 8.3 gm/dL CERNER MILLENNIUM Albumin 3.9 3.2 - 5.2 gm/dL CERNER MILLENNIUM Aspartate Aminotransferase 32(H) 0 - 30 unit/L CERNER MILLENNIUM Alanine Aminotransferase 31(H) 0 - 30 unit/L CERNER MILLENNIUM Alkaline Phosphatase 130(H) 40 - 104 unit/L CERNER MILLENNIUM Bilirubin, Total 0.4 0.2 - 1.3 mg/dL CERNER MILLENNIUM Bilirubin, Direct 0.1 0.0 - 0.3 mg/dL CERNER MILLENNIUM Est Glomerular Filtration Rate 52(L) >=60 CERNER MILLENNIUM Comment: This estimated GFR (eGFR) value was calculated using the MDRD equation which has been validated on patients between the ages of 18 and 70. The MDRD should not be used to assess kidney function in patients < 18 years of age or in patients with extremes of body mass, or in patients with acute kidney failure. This value should be multiplied by 1.2 for patients. For further information please copy and paste the following links into your internet browser. http://[employer]/DHnkdep http://[employer]/DHMCnkf Blood specimen (specimen) 02/14/2014 9:38 AM EST 02/14/2014 9:51 AM EST Narrative Resulting Agency Comment Spec In Lab Chris Chatman MD CHEMISTRY ORDERABLES CERNE JACKSONIUM documented in this encounter Visit Diagnoses Diagnosis Type I (juvenile type) diabetes mellitus with neurological manifestations, not stated as uncontrolled(250.61) Type I (juvenile type) diabetes mellitus with neurological manifestations, not stated as uncontrolled documented in this encounter Care Teams Picking Table Worker Relationship Specialty Start Date End Date Alexander Adams MD [address] [place] [address] PCP - General 04/06/12 07/26/23 documented as of this encounter
--- OUTSIDE RECORDS SUMMARY | 2024-02-15 22:03 | XMS_ITS | Encounter Summary ---
[place] [address] Care Team Providers Care Lens Assistant Name Role Phone Alexander Adams MD Primary Care Provider [phone] Reason for Visit * Reason Comments Diabetes Encounter Details Date Type Department Care Team (Late st Contact Info) Description 09/08/2015 4:00 PM EDT Office [place] [address] Jaylin Salcido [facility] [place] [address] Type 1 diabetes mellitus with diabetic neuropathy Social History Tobacco Use Types Packs/Day Years [...] Sign Reading Time Taken Comments Blood Pressure 149/80 09/08/2015 3:45 PM EDT Pulse 91 09/08/2015 3:45 PM EDT Temperature - - Respiratory Rate - - Oxygen Saturation - - Inhaled Oxygen Concentration - - Weight 81.6 kg (180 lb) 09/08/2015 3:45 PM EDT Height 172.7 cm (5' 7.99) 09/08/2015 3:45 PM ED T Body Mass Index 27.38 09/08/2015 3:45 PM EDT documented in this encounter Patient Instructions * Patient Instructions* Jaylin Salcido APRN - 09/08/2015 4:30 PM EDT You continue to do an amazing job managing glucose levels!! documented in this encounter Progress Notes * Jaylin Salcido APRN - 09/08/2015 5:28 PM EDT REASON FOR VISIT: Followup type 1 DM, in continued good/fair overall control. Also, hypertension in good control; hyperlipidemia; overweight. BRIEF HISTORY: Presents for 90-day followup for managing type DM using a MiniMed pump, alternates visits between PCP office and Endocrinology. Date of diagnosis of diabetes: 53 years ago. Complications: Retinopathy, neuropathy. Diabetes regimen: MiniMed 723 pump. Basal rates, 12 a.m. 1.0, 4 a.m. 1.05, 7 a.m. 1.1, 12 noon 1.2, 5 p.m. 1.2, 10 p.m. 1.1. Total basal 26.8. SBGM 4 times a day. Reason for higher-frequency testing is to avoid severe hypoglycemia and avoid severe hyperglycemia. Patient lives along. Past medical history is significant for cardiac arrest in 2009. Has an ICD. Plans to have Cardiology followup in [facility]. Prevention strategies are up to date. Has dilated eye exams in [place], [place]. REVIEW OF SYSTEMS: Depression in mood. Recently returned from [employer] in [place]. 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 Eyes: No recent vision changes. No recent headaches. No chest pain or shortness of breath. No recent GI symptoms. Sleep patterns: States she has never been a good sleeper. Extremities: Followed closely by Dr. King in [place]. PHYSICAL EXAM: APPEARANCE: She appears in very good health. She is overweight, 180 pounds. Blood pressure 149/80. EYES: No retinopathy with green light exam. NECK: No thyromegaly or lymphadenopathy. HEART: Regular rate and rhythm. LUNGS: Clear to auscultation. FEET: The distal tips of her right toes, 1 through 4, have been surgically removed. Ambulates with assistance of a cane. Hemoglobin A1c result not available during office visit; at time of dictation, 8.4%, previous was 7.7%. Most likely related to traveling, she drove to [place]. Also, patient has had back surgery. Requested a vial of Lantus to be used in case of pump failure. Prescription was done. Patient does an excellent job managing glucose levels and always has treatment available to treat a low glucose level and always checks glucose level before driving. Return to Endocrinology [place] [address] Chatman. Will check hemoglobin A1c and creatinine. This was a 34-minute office visit with 33 minutes spent counseling face to face with patient on the management of glucose levels, reviewing prevention and treatment of hypoglycemia, filling prescription for Lantus to be used in case of pump failure. Recent Results (from the past 72 hour(s)) Hemoglobin A1c Result Value Ref Range Hemoglobin A1C 8.4 (H) 4.3 - 5.6 % Est Avg Gluc See note mg/dL TSH Result Value Ref Range TSH 0.86 0.27 - 4.20 mcIU/mL documented in this encounter Plan of Treatment Upcoming Encounters Date Type Department Care Team (Late st Contact Info) Description 02/29/2024 10:00 AM EST Office Visit Cardiology at [address] [place] [address] Ruben Hartman PA [facility] [place] [address] 04/26/2024 10:00 AM EST Hospital Encounter Non-Invasive Cardiology Lab [facility] [place] [address] Arrived 09/24/2024 4:00 PM EDT Office Visit Cardiology at [address] [place] [address] Nathaniel Keita MD [facility] [place] [address] documented as of this encounter Visit Diagnoses Diagnosis Type 1 diabetes mellitus with diabetic neuropathy Type I (juvenile type) diabetes mellitus with neurological manifestations, not stated as uncontrolled documented in this encounter Care Teams Lens Assistant Relationship Specialty Start Date End Date Alexander Adams MD [address] [place] [address] PCP - General 04/06/12 07/26/23 documented as of this encounter
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
--- OUTSIDE RECORDS SUMMARY | 2024-02-15 22:03 | XMS_ITS | Encounter Summary ---
[place] [address] Care Team Providers Care Mechanical Service Technician Name Role Phone Alexander Adams MD Primary Care Provider [phone] Encounter Details Date Type Department Care Team (Late st Contact Info) Description 12/19/2014 [place] [phone] Stella Hernandez LPN Social History Tobacco Use Types Packs/Day Years [...] encounter Miscellaneous Notes * Telephone Encounter - Stella Hernandez LPN - 12/20/2014 8:10 AM EDT Per patient she is getting her pump supplies from [facility] not [employer]. Denial faxed back to [employer]. * Telephone Encounter - Stella Hernandez LPN - 12/19/2014 4:26 PM EDT Rx request received from [employer] for insulin pump supplies and testing supplies. Called patient no answer. Message left on home v/m for patient to r/c to nurse to verify that she is getting supplies from [employer] as Rx in August went to [facility] diabetes. documented in this encounter Plan of Treatment Upcoming Encounters Date Type Department Care Team (Late st Contact Info) Description 02/29/2024 10:00 AM EST Office Visit Cardiology at [address] [address] Ruben Hartman PA [facility] [place] [address] 04/26/2024 10:00 AM EST Hospital Encounter Non-[place] [address] Arrived 09/24/2024 4:00 PM EDT Office Visit Cardiology at [address] [phone] Nathaniel Keita MD [facility] [place] [address] documented as of this encounter Visit Diagnoses Not on filedocumented in this encounter Care Teams Mechanical Service Technician Relationship Specialty Start Date End Date Alexander Adams MD [address] [place] [address] PCP - General 04/06/12 07/26/23 documented as of this encounter
--- OUTSIDE RECORDS SUMMARY | 2024-02-15 22:03 | XMS_ITS | Encounter Summary ---
[place] [address] Care Team Providers Care Smt Technician Name Role Phone Alexander Adams MD Primary Care Provider [phone] Reason for Visit * Reason Onset Date Comments Medication Refill 01/23/2014 Encounter Details Date Type Department Care Team (Late st Contact Info) Description 01/23/2014 Refill [place] [address] Jaylin Salcido [facility] DR ENDOCRINOLOGY [place] [address] Social History Tobacco Use Types Packs/Day Years [...] 10:00 AM EST Office Visit Cardiology at [address] [place] [phone] Ruben Hartman, [facility] [place] [address] 04/26/2024 10:00 AM EST Hospital Encounter Non-Invasive Cardiology Lab [facility] [place] [address] Arrived 09/24/2024 4:00 PM EDT Office Visit Cardiology at [address] [place] [address] Nathaniel Keita MD [facility] [place] [address] documented as of this encounter Visit Diagnoses Not on filedocumented in this encounter Care Teams Smt Technician Relationship Specialty Start Date End Date Alexander Adams MD [address] [place] [address] PCP - General 04/06/12 07/26/23 documented as of this encounter
--- OUTSIDE RECORDS SUMMARY | 2024-02-15 22:03 | XMS_ITS | Encounter Summary ---
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 [place] [address] 04/26/2024 10:00 AM EST Hospital Encounter Non-Invasive [place] [address] Arrived 09/24/2024 4:00 PM EDT Office Visit Cardiology at [address] [place] [address] Nathaniel Keita MD 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 1, S67-45 Estimated Average Glucose See note mg/dL [facility] Comment: Estimated Average Glucose not appropriate [...] resources are available on the ADA website: [email or web address] Alfred JEFFRIES, Risa J, Sergio R, et al. ??Translating the A1C assay into estimated average glucose values. ??Diabetes Care 2008:31(8):9106-3164. 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
--- OUTSIDE RECORDS SUMMARY | 2024-02-15 22:03 | XMS_ITS | Encounter Summary ---
[place] [address] Care Team Providers Care Analytical Laboratory Technician Name Role Phone Alexander Adams MD Primary Care Provider [phone] Reason for Visit * Reason Onset Date Comments Medication Refill 08/08/2014 Encounter Details Date Type Department Care Team (Late st Contact Info) Description 08/08/2014 [place] [address] Elisha Nichols MD [facility] [place] [address] Social History Tobacco Use Types Packs/Day Years [...] 10:00 AM EST Office Visit Cardiology at [address] [place] [phone] Ruben Hartman PA [facility] [place] [address] 04/26/2024 10:00 AM EST Hospital Encounter Non-Invasive Cardiology Lab [facility] [place] [address] Arrived 09/24/2024 4:00 PM EDT Office Visit Cardiology at [address] [place] [address] Nathaniel Keita MD [facility] [place] [address] documented as of this encounter Visit Diagnoses Not on filedocumented in this encounter Care Teams Analytical Laboratory Technician Relationship Specialty Start Date End Date Alexander Adams MD [address] [place] [address] PCP - General 04/06/12 07/26/23 documented as of this encounter
--- OUTSIDE RECORDS SUMMARY | 2024-02-15 22:03 | XMS_ITS | Encounter Summary ---
[place] [address] Care Team Providers Care Harness Rigger Name Role Phone Alexander Adams MD Primary Care Provider [phone] Encounter Details Date Type Department Care Team (Late st Contact Info) Description 09/23/2015 Orders Only Cardiology at [address] [phone] Social History Tobacco Use Types Packs/Day Years [...] as of this encounter Progress Notes * Norm Garcia MD - 09/23/2015 11:59 PM EDT Cardiac Electrophysiology Cardiac Rhythm Device Upload This patient's ICD data was uploaded September 23, 2015. I subsequently overread and reviewed the ICD interrogation data. For detailed pacemaker and lead specifics and detailed interrogation data, please refer to the Cardiac device check - Remote found under the Card/Vasc tab of eD-H. Comments (interval data since last reset June 23, 2015): Cell voltage (3.01 V) and charge time (9.1 seconds) acceptable Underlying conducted sinus rhythm Right Ventricular Lead: Acceptable ventricular lead impedances; sensing marginal at 2.4 mV, but stable Ventricular pacing <0.1% Ventricular dysrhythmias detected: Nonsustained x 12 Physiologic Monitoring: Patient activity during past week per sensor ~2.4/hour (average). Conclusion: Normal device function. Minimal ventricular pacing. No significant dysrhythmias detected. __ Norm Garcia MD documented in this encounter Plan of Treatment Upcoming Encounters Date Type Department Care Team (Late st Contact Info) Description 02/29/2024 10:00 AM EST Office Visit Cardiology at [address] [phone] Ruben Hartman PA [facility] [place] [address] 04/26/2024 10:00 AM EST Hospital Encounter Non-Invasive [place] [address] Arrived 09/24/2024 4:00 PM EDT Office Visit Cardiology at [address] [address] Nathaniel Keita MD [facility] [place] [address] documented as of this encounter Procedures Procedure Name Priority Date/Time Associated Diagnosis Comments CARDIAC DEVICE CHECK - REMOTE Routine 09/23/2015 6:28 AM EDT documented in this encounter Results * (ABNORMAL) Cardiac device check - Remote (09/23/2015 6:28 AM EDT) Date Time Interrogation Session [id number] [employer] Implantable Pulse Generator Grooming Assistant [employer] IDCO Implantable Pulse Generator Model MANUEL II VR [id number] [employer]CO Implantable Pulse Generator Serial Number [id number] IDCO Type Interrogation Session Remote [employer] Implantable Pulse Generator Type Defibrillator [employer] Implantable Pulse Generator Implant Date IDCO Macrel Setting Mode (NBG Code) VVI IDCO Marcel [...] ms IDCO Battery Date Time of Measurements [id number] IDCO Battery Status OK [employer]CO Battery DISTRIBUTION ASSOCIATE Trigger 2.6251 IDCO Battery Voltage 3.01 V IDCO Capacitor Charge Type Reformation IDCO Capacitor Last Charge Date Time [id number] IDCO Capacitor Charge Time 9.148 s IDCO Capacitor Charge Energy 35 J IDCO Episode Identifier 191 IDCO Episode Date Time [id number] IDCO Episode Duration 2 s IDCO Episode Identifier 190 IDCO Episode Date Time [id number] IDCO Episode Duration 0 s IDCO Episode Identifier 189 IDCO Episode Date Time [id number] IDCO Episode Duration 0 s IDCO Episode Identifier 188 IDCO Episode Date Time [id number] IDCO Episode Duration 1 s IDCO Episode Identifier 187 IDCO Episode Date Time [id number] IDCO Episode Duration 2 s IDCO Episode Identifier 186 IDCO Episode Date Time [id number] IDCO Episode Duration 1 s IDCO Episode Identifier 185 IDCO Episode Date Time [id number] IDCO Episode Duration 1 s IDCO Episode Identifier 184 IDCO Episode Date Time [id number] IDCO Episode Duration 1 s IDCO Episode Identifier 183 IDCO Episode Date Time [id number] IDCO Episode Duration 2 s IDCO Episode Identifier 182 IDCO Episode Date Time [id number] IDCO Episode Duration 0 s IDCO Episode Identifier 181 IDCO Episode Date Time [id number] IDCO Episode Duration 2 s IDCO Episode Identifier 180 IDCO Episode Date Time [id number] IDCO Episode Duration 0 s IDCO Episode Identifier 179 IDCO Episode Date Time [id number] IDCO Episode Duration 0 s IDCO Episode Identifier 178 IDCO Episode Date Time [id number] IDCO Episode Duration 0 s IDCO Episode Identifier 177 IDCO Episode Date Time [id number] IDCO Episode Duration 2 s IDCO Marcel Statistic Date Time Start [id number] IDCO Marcel Statistic Date Time End IDCO Marcel Statistic RV Percent Paced 0.00 % IDCO Therapy Statistic Recent Shocks Delivered 0 IDCO Therapy Statistic Recent Shocks Aborted 0 IDCO Therapy Statistic Recent ATP Delivered 0 IDCO Therapy Statistic Recent Date Time Start [id number] IDCO Therapy Statistic Recent Date Time End IDCO Therapy Statistic Total Shocks Delivered 0 IDCO Therapy Statistic Total Shocks Aborted 0 IDCO Therapy Statistic Total ATP Delivered 0 IDCO Therapy Statistic Total Date Time Start [id number] IDCO Therapy Statistic Total Date Time End IDCO Episode Statistic Recent Count 0 IDCO Episode Statistic Type Category VF IDCO Episode Statistic Recent Count 0 IDCO Episode Statistic Type Category [place] IDCO Episode Statistic Recent Count 0 IDCO Episode Statistic Recent Count 0 IDCO Episode Statistic Recent Count 12 IDCO Episode Statistic Recent Count 0 IDCO Episode Statistic Type Category SVT IDCO Episode Statistic Recent Date Time Start [id number] IDCO Episode Statistic Recent Date Time End IDCO Episode Statistic Recent Date Time Start [id number] IDCO Episode Statistic Recent Date Time End IDCO Episode Statistic Recent Date Time Start [id number] IDCO Episode Statistic Recent Date Time End IDCO Episode Statistic Recent Date Time Start [id number] IDCO Episode Statistic Recent Date Time End [id number] IDCO Episode Statistic Recent Date Time Start [id number] IDCO Episode Statistic Recent Date Time End IDCO Episode Statistic Recent Date Time Start [id number] IDCO Episode Statistic Recent Date Time End IDCO Episode Statistic Total Count 0 IDCO Episode Statistic Type Category VF IDCO Episode Statistic Total Count 0 IDCO Episode Statistic Type Category [place] IDCO Episode Statistic Total Count 0 IDCO Episode Statistic Total Count 0 IDCO Episode Statistic Total Count 190 IDCO Episode Statistic Total Count 1 IDCO Episode Statistic Type Category SVT IDCO Episode Statistic Total Date Time Start [id number] IDCO Episode Statistic Total Date Time End IDCO Episode Statistic Total Date Time Start [id number] IDCO Episode Statistic Total Date Time End IDCO Episode Statistic Total Date Time Start 12080386320331 IDCO Episode Statistic Total Date Time End IDCO Episode Statistic Total Date Time Start [id number] IDCO Episode Statistic Total Date Time End IDCO Episode Statistic Total Date Time Start [id number] IDCO Episode Statistic Total Date Time End IDCO Episode Statistic Total Date Time Start [id number] IDCO Episode Statistic Total Date Time End IDCO Anatomical Region Laterality Modality Other 09/23/2015 6:28 AM EDT Physician Cardiology IMPLANTABLE CARD IAC DEVICE documented in this encounter Visit Diagnoses Not on filedocumented in this encounter Care Teams Harness Rigger Relationship Specialty Start Date End Date Alexander Adams MD [address] [place] [address] PCP - General 04/06/12 07/26/23 documented as of this encounter
--- OUTSIDE RECORDS SUMMARY | 2024-02-15 22:03 | XMS_ITS | Encounter Summary ---
[place] [address] Care Team Providers Care Portfolio Architect Name Role Phone Alexander Adams MD Primary Care Provider [phone] Reason for Visit * Reason Onset Date Comments Medication Refill 04/30/2015 Encounter Details Date Type Department Care Team (Late st Contact Info) Description 04/30/2015 Ref[place] [address] Jaylin Salcido [facility] [place] [address] Social History Tobacco Use Types Packs/Day Years [...] encounter Miscellaneous Notes * Telephone Encounter - Richa Falcon RN - 04/30/2015 2:00 PM EST Liane calls nurse triage line and left voicemail message that she recently found out that Medicare Part B will cover insulin because it goes through her pump. States that she would like to get [facility] [place] so she make check on the damian of this. documented in this encounter Plan of Treatment Upcoming Encounters Date Type Department Care Team (Late st Contact Info) Description 02/29/2024 10:00 AM EST Office Visit Cardiology at [address] [address] Ruben Hartman, PA [facility] [place] [address] 04/26/2024 10:00 AM EST Hospital Encounter Non-[place] [address] Arrived 09/24/2024 4:00 PM EDT Office Visit Cardiology at [address] [address] Nathaniel Keita MD [facility] [place] [address] documented as of this encounter Visit Diagnoses Not on filedocumented in this encounter Care Teams Portfolio Architect Relationship Specialty Start Date End Date Alexander Adams MD [address] [place] [address] PCP - General 04/06/12 07/26/23 documented as of this encounter
--- OUTSIDE RECORDS SUMMARY | 2024-02-15 22:03 | XMS_ITS | Encounter Summary ---
[place] [address] Care Team Providers Care Advertising Sales Agent Name Role Phone Alexander Adams MD Primary Care Provider [phone] Reason for Visit * Reason Comments Diabetes Encounter Details Date Type Department Care Team (Late st Contact Info) Description 02/17/2015 10:30 AM EST Office [place] [address] [facility] 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 Given flu vaccine documented in this encounter Progress Notes * Jaylin Salcido APRN - 02/17/2015 2:05 PM EST DATE OF VISIT: 02/17/2015 REASON FOR VISIT: Follow up type 1 DM in continued good overall control. Also, hypertension in good control, hyperlipidemia at goal, overweight. BRIEF HISTORY: Presents for 90-day followup for managing type 1 DM using a MiniMed insulin pump. DATE OF DIAGNOSIS OF DIABETES: 53 years ago. DIABETES REGIMEN: MiniMed 723 pump. Basal rates 12 a.m. 1.0, 4 a.m. 1.05, 7 a.m. 1.1, noon 1.2, 5 p.m. 1.2, 10 p.m. 1.1. Total basal 26.8. Total daily doses range from 33.35 to 36.8. 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 PREVENTION STRATEGIES: Up to date. REVIEW OF SYSTEMS: Depression and Mood: from her approximately a year ago. States life is much better. Lives alone. Eyes: No recent vision changes. No recent headaches or chest pain or shortness of breath. No recent GI symptoms. Sleep Pattern: Same. States she has never been a good sleeper. Extremities: Followed closely by Dr. King. Recently had the tips of right second and third toes removed. History of back surgery. PHYSICAL EXAMINATION: Appearance: She appears in very good health. She is overweight, pleasant and talkative with good eye contact. Weight 171 pounds. Eyes: No retinopathy with green light exam. Neck: No thyromegaly or lymphadenopathy. Heart: Regular rate and rhythm. No murmurs. Has an ICD device implanted. Lungs: Clear to auscultation. Feet: Foot exam deferred. Has an appointment tomorrow with Dr. King. She is wearing a walking boot on right and ambulating with assistance of a cane. Hemoglobin A1c 7.7%, previous was 7.6%. IMPRESSION AND PLAN: Diabetes mellitus type 1 for over 50 years with complications of retinopathy and neuropathy. No change in regimen today. Reviewed prevention and treatment of hypoglycemia. SBGM, four times a day. Reason for higher frequency testing is to avoid severe hypoglycemia. The patient lives alone. Requested refill of medication for hypertension and tramadol, which were done. Gave the patient tramadol prescription. Has appointment with PCP in 90 days. Return to Endocrinology in 180 days. Will check hemoglobin A1c and TSH. This was a 34-minute office visit with 33 minutes spent counseling byix-la-nore with patient in the management of glucose levels, reviewing prevention and treatment of hypoglycemia. Immunization up date, offered patient Prevnar 13, but she states she had a terrible reaction to a pneumonia vaccine in the past and declines the Prevnar 13. documented in this encounter Plan of Treatment Upcoming Encounters Date Type Department Care Team (Late st Contact Info) Description 02/29/2024 10:00 AM EST Office Visit Cardiology at [address] [address] Ruben Hartman, PA [facility] [place] [address] 04/26/2024 10:00 AM EST Hospital Encounter Non-[place]vasive [place] [address] Arrived 09/24/2024 4:00 PM EDT Office Visit Cardiology at [address] [address] Nathaniel Keita MD [facility] [place] [place] [address] documented as of this encounter Results * TSH (09/08/2015 3:01 PM EDT) Thyroid Stimulating Hormone 0.86 0.27 - 4.20 mcIU/mL [facility] Blood specimen (specimen) 09/08/2015 3:01 PM EDT 09/08/2015 3:13 PM EDT Narrative Resulting Agency Comment Spec In Lab Chris Chatman MD CHEMISTRY ORDERABLES [facility] [place] [place] [address] * (ABNORMAL) Hemoglobin A1c (09/08/2015 3:01 PM EDT) Pathologist [facility] Hemoglobin A1c 8.4(H) 4.3 - 5.6 % [facility] Comment: Reference Range: 4.3 - [...] Mellitus, Diabetes Care 2013; 36: Suppl. 1, S84-29 Estimated Average Glucose See note mg/dL [facility] Comment: Estimated Average Glucose not [...] resources are available on the ADA website: http://[employer]/DHMCadacalc Alfred JEFFRIES, Risa J, Sergio R, et al. ??Translating the A1C assay into estimated average glucose values. ??Diabetes Care 2008:31(8):7456-2104. 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
--- OUTSIDE RECORDS SUMMARY | 2024-02-15 22:03 | XMS_ITS | Encounter Summary ---
[place] [address] Care Team Providers Care Biological Scientist Name Role Phone Alexander Adams MD Primary Care Provider [phone] Encounter Details Date Type Department Care Team (Late st Contact Info) Description 05/06/2015 Notes Only [place] [phone] Richa Falcon, RN Social History Tobacco Use Types Packs/Day [...] as of this encounter Progress Notes * Richa Falcon, RN - 05/06/2015 8:40 AM EST Faxed DWO to [facility]ara [facility]ura for Insulin documented in this encounter Plan of Treatment Upcoming Encounters Date Type Department Care Team (Late st Contact Info) Description 02/29/2024 10:00 AM EST Office Visit Cardiology at [address] [place] [address] Ruben Hartman, LAURA [facility] [place] [address] 04/26/2024 10:00 AM EST Hospital Encounter Non-Invasive Cardiology Lab [facility] [place] [address] Arrived 09/24/2024 4:00 PM EDT Office Visit Cardiology at [address] [place] [address] Nathaniel Keita MD [facility] [place] [address] documented as of this encounter Visit Diagnoses Not on filedocumented in this encounter Care Teams Biological Scientist Relationship Specialty Start Date End Date Alexander Adams MD [address] [place] [address] PCP - General 04/06/12 07/26/23 documented as of this encounter
--- OUTSIDE RECORDS SUMMARY | 2024-02-15 22:03 | XMS_ITS | Encounter Summary ---
[place] [address] Care Team Providers Care Finished Cloth Examiner Name Role Phone Alexander Adams MD Primary Care Provider [phone] Reason for Visit * Reason Onset Date Comments Medication Refill 05/20/2014 Encounter Details Date Type Department Care Team (Late st Contact Info) Description 05/20/2014 Refill [place] [address] Jaylin Salcido APRN [facility] DR [place] [address] Social History Tobacco Use Types Packs/Day Years [...] Telephone Encounter - Richa Falcon RN - 05/20/2014 2:05 PM EST Received faxed in request from [employer] for metoprolol for liane documented in this encounter Plan of Treatment Upcoming Encounters Date Type Department Care Team (Late st Contact Info) Description 02/29/2024 10:00 AM EST Office Visit Cardiology at [address] [phone] Ruben Hartman PA [facility] [place] [address] 04/26/2024 10:00 AM EST Hospital Encounter Non-Invasive Cardiology Lab [facility] [address] Arrived 09/24/2024 4:00 PM EDT Office Visit Cardiology at [address] [phone] Nathaniel Keita MD [facility] [address] documented as of this encounter Visit Diagnoses Not on filedocumented in this encounter Care Teams Finished Cloth Examiner Relationship Specialty Start Date End Date Alexander Adams MD [address] [place] [address] PCP - General 04/06/12 07/26/23 documented as of this encounter
--- OUTSIDE RECORDS SUMMARY | 2024-02-15 22:03 | XMS_ITS | Encounter Summary ---
[place] [address] Care Team Providers Care Pattern Stamper Name Role Phone Alexander Adams MD Primary Care Provider [phone] Reason for Visit * Reason Onset Date Comments Questions 09/16/2014 wants latest Rx, has notes we faxed earlier Encounter Details Date Type Department Care Team (Late st Contact Info) Description 09/16/2014 Telephone [place] [phone] Melissa Cleary MD Questions (wants latest Rx, has notes we faxed earlier) Social History Tobacco Use Types Packs/Day Years [...] encounter Miscellaneous Notes * Telephone Encounter - Milind Reilly COMT - 09/16/2014 2:15 PM EDT NO Rx done here. documented in this encounter Plan of Treatment Upcoming Encounters Date Type Department Care Team (Late st Contact Info) Description 02/29/2024 10:00 AM EST Office Visit Cardiology at [address] [phone] Ruben Hartman, LAURA [facility] [place] [address] 04/26/2024 10:00 AM EST Hospital Encounter Non-Invasive [place] [address] Arrived 09/24/2024 4:00 PM EDT Office Visit Cardiology at [address] [phone] Nathaniel Keita MD [facility] [place] [address] documented as of this encounter Visit Diagnoses Not on filedocumented in this encounter Care Teams Pattern Stamper Relationship Specialty Start Date End Date Alexander Adams MD [address] [place] [address] PCP - General 04/06/12 07/26/23 documented as of this encounter
--- OUTSIDE RECORDS SUMMARY | 2024-02-15 22:03 | XMS_ITS | Encounter Summary ---
[place] [address] Care Team Providers Care Biometrics Technician Name Role Phone Alexander Adams MD Primary Care Provider [phone] Encounter Details Date Type Department Care Team (Latest Contact Info) Description 03/04/2015 5:57 AM EST - 03/04/2015 11:59 PM [facility] Hospital Encounter [place] [address] Edita Myers MD [facility] [address] Discharge Disposition: Home Social History Tobacco Use [...] Sig Dispensed Refills Start Date End Date atorvastatin (LIPITOR) 40 mg Tablet Take 40 mg by mouth daily. glucagon, human recombinant, 1 mg injection Inject 1 mL into the muscle as needed. 1 each prn 05/08/2013 aspirin 81 mg chewable tablet Take 81 mg by mouth daily. Pyridoxine (VITAMIN B-6) 200 mg Tab 200 mg PO Once daily 03/24/2010 valsartan (DIOVAN) 40 mg TabletIndications:Ty pe 1 diabetes mellitus with diabetic retinopathy without macular edema, with unspecified retinopathy severity Take 1 tablet by mouth every other day. (Alternating with carvedilol) 45 tablet 3 02/17/2015 09/29/2017 traMADol-acetaminoph en (ULTRACET) 37.5-325 mg Tablet Take 1 tablet by mouth 2 times daily as needed for Pain. 60 tablet 3 02/17/2015 09/29/2017 insulin lispro (HUMALOG) Solution Inject 35-40 Units subcutaneously continuous. Daily via insulin pump 40 mL 3 12/11/2014 04/30/2015 Diabetic Supplies, [employer] [facility] Fax from to [facility] for pump supplies 100 each 12 08/27/2014 11/12/2015 Diabetic Supplies, [employer] [facility] Fax form to [facility] for testing supplies 100 each 12 08/08/2014 03/31/2017 carvedilol (COREG) 3.125 mg Tablet Take 3.125 mg by mouth every other day. (Alternating with DIOVAN) 06/23/2015 lansoprazole (PREVACID) 30 mg capsule Take 30 mg by mouth daily. 07/27/2023 insulin glargine (LANTUS) vial injection Inject 28 Units subcutaneously daily. PRN for pump failure 10 mL prn 05/08/2013 09/08/2015 Blood Sugar Diagnostic (ONE TOUCH ULTRA TEST) test strip Test BG 5-6 times daily. Diagnosis code 250.63 600 each 3 03/12/2013 03/31/2017 Blood-Glucose Meter (ONE TOUCH ULTRA 2) monitoring kit 1 each by [facility].(Non-Drug; Combo Route) route as needed for Other. Test BG 5-6 times daily. Diagnosis code 250.63 1 each 0 03/12/2013 03/31/2017 Lancets (ONE TOUCH ULTRASOFT LANCETS) Mis 1 each by [facility].(Non-Drug; Combo Route) route 6 times daily. Diag code 250.63 600 each 3 03/12/2013 03/31/2017 cholecalciferol, Vitamin D3, (CHOLECALCIFEROL, VITAMIN D3,) 2,000 unit Capsule Take 2,000 Units by mouth daily. 12/13/2018 Insulin [place], Disposable, (BD INSULIN PEN NEEDLE UF SHORT) 31 X 08/17 Ndle by [facility].(Non-Drug; Combo Route) route. 03/31/2017 SUBCUTANEOUS INSULIN PUMP (INSULIN PUMP [id number] [facility]) by [facility].(Non-Drug; Combo Route) route. 03/31/2017 acetaminophen (TYLENOL) 325 mg tablet Take 650 mg by mouth every 4 hours as needed. 09/29/2017 multivitamin (DAILY MULTIPLE) tablet 03/24/2010 03/31/2017 thiamine (VITAMIN B-1) 250 mg tablet 250 mg PO Once daily 03/24/2010 1 06/01/2016 documented as of this encounter Plan of Treatment Upcoming Encounters Date Type Department Care Team (Late st Contact Info) Description 02/29/2024 10:00 AM EST Office Visit Cardiology at [address] [phone] Ruben Hartman PA [facility] [place] [address] 04/26/2024 10:00 AM EST Hospital Encounter [place] [address] Arrived 09/24/2024 4:00 PM EDT Office Visit Cardiology at [address] [phone] Nathaniel Keita MD [facility] [place] [address] documented as of this encounter Visit Diagnoses Not on filedocumented in this encounter Care Teams Biometrics Technician Relationship Specialty Start Date End Date Alexander Adams MD [address] [place] [address] PCP - General 04/06/12 07/26/23 documented as of this encounter
--- OUTSIDE RECORDS SUMMARY | 2024-02-15 22:03 | XMS_ITS | Encounter Summary ---
[place] [address] Care Team Providers Care Gandy Dancer Name Role Phone Alexander Adams MD Primary Care Provider Encounter Details Date Type Department Care Team (Late st Contact Info) Description 03/26/2015 External Results Cardiology at [address] [phone] Alexander Adams MD [address] [place], [place] [id number] Social History Tobacco Use Types Packs/Day Years [...] 10:00 AM EST Office Visit Cardiology at [address] [place] [address] Ruben Hartman, PA [facility] [place] [address] 04/26/2024 10:00 AM EST Hospital Encounter Non-Invasive Cardiology Lab [facility] [place] [address] Arrived 09/24/2024 4:00 PM EDT Office Visit Cardiology at [address] [place] [phone] Nathaniel Keita MD [facility] [place] [address] documented as of this encounter Procedures Procedure Name Priority Date/Time Associated Diagnosis Comments EP DEVICE SCAN Routine 03/04/2015 documented in this encounter Results * Scan Doc: EP Device (03/04/2015) Anatomical Region Laterality Modality Other Alexander Adams MD MEDIA MGR SCAN EXT O RDR/RSLT documented in this encounter Visit Diagnoses Not on filedocumented in this encounter Care Teams Gandy Dancer Relationship Specialty Start Date End Date Alexander Adams MD [address] [place] [address] PCP - General 04/06/12 07/26/23 documented as of this encounter
--- OUTSIDE RECORDS SUMMARY | 2024-02-15 22:03 | XMS_ITS | Encounter Summary ---
[place] [address] Care Team Providers Care Color Dipper Name Role Phone Alexander Adams MD Primary Care Provider [phone] Reason for Visit * Reason Onset Date Comments Medication Refill 08/15/2014 Encounter Details Date Type Department Care Team (Late st Contact Info) Description 08/15/2014 Refill [place] [address] Elisha Nichols MD [facility] [address] [place] [address] Social History Tobacco Use Types Packs/Day Years [...] Telephone Encounter - Stella Hernandez LPN - 08/27/2014 7:57 AM EDT Message on endo nurse line from patient that she now get her insulin pump supplies from [facility]. * Telephone Encounter - Stella Hernandez LPN - 08/15/2014 3:05 PM EDT Rx request received from [facility] diabetes. Called patient. No answer message left on home v/m for patient to r/c to nurse to verify this is where she is not getting her pump supplies documented in this encounter Plan of Treatment Upcoming Encounters Date Type Department Care Team (Late st Contact Info) Description 02/29/2024 10:00 AM EST Office Visit Cardiology at [address] [address] Ruben Hartman PA [facility] [place] [address] 04/26/2024 10:00 AM EST Hospital Encounter Non-[place]vasive [place] [address] Arrived 09/24/2024 4:00 PM EDT Office Visit Cardiology at [address] [address] Nathaniel Keita MD [facility] [place] [address] documented as of this encounter Visit Diagnoses Not on filedocumented in this encounter Care Teams Color Dipper Relationship Specialty Start Date End Date Alexander Adams MD [address] [place] [address] PCP - General 04/06/12 07/26/23 documented as of this encounter
--- OUTSIDE RECORDS SUMMARY | 2024-02-15 22:03 | XMS_ITS | Encounter Summary ---
[place] [address] Care Team Providers Care Pneumatic Hoist Operator Name Role Phone Alexander Adams MD Primary Care Provider [phone] Reason for Visit * Reason Comments Blurred Vision 2 week F/U for Possi ble Vitrous Hemorrhage OS PDR 2.5 months since las t f/u for PDR OU post PRP OU Encounter Details Date Type Department Care Team (Late st Contact Info) Description 08/13/2014 8:00 AM EDT Follow[place] [address] Melissa Cleary MD Vitreous hemorrhage of left eye Discharge Disposition: Home Social History Tobacco Use [...] Progress Notes * Melissa Cleary MD - 08/13/2014 8:55 AM EDT Stable PDR OU, with full PRP and complete involution. 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 No intervention required. Call prn any decrease in central vision OS. Reassurance given. Plan: RTC 6 months. documented in this encounter Plan of Treatment Upcoming Encounters Date Type Department Care Team (Late st Contact Info) Description 02/29/2024 10:00 AM EST Office Visit Cardiology at [address] [address] Ruben Hartman, LAURA [facility] [place] [address] 04/26/2024 10:00 AM EST Hospital Encounter Non-[place] [address] Arrived 09/24/2024 4:00 PM EDT Office Visit Cardiology at [address] [address] Nathaniel Keita MD [facility] [place] [address] documented as of this encounter Visit Diagnoses Diagnosis Vitreous hemorrhage of left eye Vitreous hemorrhage documented in this encounter Care Teams Pneumatic Hoist Operator Relationship Specialty Start Date End Date Alexander Adams MD [address] [place] [address] PCP - General 04/06/12 07/26/23 documented as of this encounter
--- OUTSIDE RECORDS SUMMARY | 2024-02-15 22:03 | XMS_ITS | Encounter Summary ---
[place] [address] Care Team Providers Care Senior Construction Estimator Name Role Phone Alexander Adams MD Primary Care Provider [phone] Reason for Visit * Reason Onset Date Comments Eye Problem 07/31/2014 vision changes Encounter Details Date Type Department Care Team (Late st Contact Info) Description 07/31/2014 [place] [address] Celena Briceño MD [facility] [place] [address] Eye Problem (vision changes) Social History Tobacco Use Types Packs/Day Years [...] Miscellaneous Notes * Telephone Encounter - Liane Gillette, COT - 07/31/2014 9:04 AM EDT Patient with sudden onset of blurry vision in the left eye yesterday, used AT's with hopes would beimproved in AM. Not improved today, still very foggy/cloudy at distance and near. Denies any floaters, curtains, flashing lights etc. WTW with Dr. Briceño at 3:15PM today. S/p CE OU 2002/MEZ and PRP OU/NOLAN. * Telephone Encounter - Liane Gillette COT - 07/31/2014 8:54 AM EDT Patient Demographics Patient Name MRN Sex Address Phone Liane Cole [id number] Female 1945 [address] [facility] [phone] Message Good Morning, Yesterday I started having some cloudy vision with my right eye. Thought it would maybe just go away but is still there this morning. I had this same thing happen a few years ago (think it was my left eye that time) and it turned out that my lens implant needed to be zapped so Dr. Santoyo gave me atreatment and that took care if it. The last time this happened I waited several days and was told not to wait so long if it happened again so wanted to let you know about it. Thank you. Liane Hernández Kelsey : 1945 Melissa Cleary MD at 05/29/2014 2:51 PM Author Type: Physician Status: Signed Manager Civil: Melissa Cleary MD (Physician) Expand All Collapse All Stable PDR OU, with full PRP and complete involution. Plan: RTC 1 yr. documented in this encounter Plan of Treatment Upcoming Encounters Date Type Department Care Team (Late st Contact Info) Description 02/29/2024 10:00 AM EST Office Visit Cardiology at [address] [place] [phone] Ruben Hartman, LAURA [facility] [place] [address] 04/26/2024 10:00 AM EST Hospital Encounter Non-Invasive [place] [address] Arrived 09/24/2024 4:00 PM EDT Office Visit Cardiology at [address] [place] [phone] Nathaniel Keita MD [facility] [place] [address] documented as of this encounter Visit Diagnoses Not on filedocumented in this encounter Care Teams Senior Construction Estimator Relationship Specialty Start Date End Date Alexander Adams MD [address] [place] [address] PCP - General 04/06/12 07/26/23 documented as of this encounter
--- OUTSIDE RECORDS SUMMARY | 2024-02-15 22:03 | XMS_ITS | Encounter Summary ---
Author Organization [facility] [place] [address] Care Team Providers Care Automotive Service Professional Name Role Phone Alexander Adams MD Primary Care Provider [phone] Encounter Details Date Type Department Care Team (Latest Contact Info) Description 08/15/2014 12:51 PM EDT - 08/15/2014 11:59 PM EDT [place] [phone] Chris Chatman MD [facility] [place] [address] Type I (juvenile type) diabetes mellitus with neurological manifestations, not stated as uncontrolled Discharge Disposition: Home Social History Tobacco Use [...] Sig Dispensed Refills Start Date End Date glucagon, human recombinant, 1 mg injection Inject 1 mL into the muscle as needed. 1 each prn 05/08/2013 aspirin 81 mg chewable tablet Take 81 mg by mouth daily. Pyridoxine (VITAMIN B-6) 200 mg Tab 200 mg PO Once daily 03/24/2010 Diabetic Supplies, Miscellan. [facility] Fax from to [facility] diabetes for pump supplies 100 each 12 08/27/2014 11/12/2015 Diabetic Supplies, Miscellan. [facility] Fax form to [facility] for testing supplies 100 each 12 08/08/2014 03/31/2017 carvedilol (COREG) 3.125 mg Tablet Take 3.125 mg by mouth every other day. (Alternating with DIOVAN) 06/23/2015 traMADol-acetaminoph en (ULTRACET) 37.5-325 mg Tablet Take 1 tablet by mouth 2 times daily as needed for Pain. 60 tablet 5 07/29/2014 02/17/2015 Diabetic Supplies, cartmian. [facility] Fax form to [employer] for INSULIN PUMP SUPPLIES 100 each 12 01/23/2014 08/27/2014 valsartan (DIOVAN) 40 mg TabletIndications:DM (diabetes mellitus) Take 1 tablet by mouth daily. 90 tablet 3 01/04/2014 02/17/2015 insulin lispro (HUMALOG) Solution Inject 50-60 Units subcutaneously continuous. Daily via insulin pump 60 mL 3 12/21/2013 12/06/2014 lansoprazole (PREVACID) 30 mg capsule Take 30 [...] ULTRA 2) monitoring kit 1 each by [facility].(Non-Drug; Combo Route) route as needed for Other. Test BG 5-6 times daily. Diagnosis code 250.63 1 each 0 03/12/2013 03/31/2017 Lancets (ONE TOUCH ULTRASOFT LANCETS) Mis 1 each by [facility].(Non-Drug; Combo Route) route 6 times daily. Diag code 250.63 600 each 3 03/12/2013 03/31/2017 cholecalciferol, Vitamin D3, (CHOLECALCIFEROL, VITAMIN D3,) 2,000 unit Capsule Take 2,000 Units by mouth daily. 12/13/2018 atorvastatin (LIPITOR) 20 mg tablet Take 40 mg by mouth daily. 11/28/2014 Insulin [place], Disposable, (BD INSULIN PEN NEEDLE UF SHORT) 31 X 08/17 Ndle by [facility].(Non-Drug; Combo Route) route. 03/31/2017 SUBCUTANEOUS INSULIN PUMP (INSULIN PUMP SG0550 [facility]) by [facility].(Non-Drug; Combo Route) route. 03/31/2017 acetaminophen (TYLENOL) 325 [...] AM EST Office Visit Cardiology at [address] [address] Ruben Hartman PA [facility] [place] [place] [address] 04/26/2024 10:00 AM EST Hospital Encounter Non[place] [address] Arrived 09/24/2024 4:00 PM EDT Office Visit Cardiology at [address] [address] Nathaniel Keita MD [facility] [place] [address] documented as of this encounter Procedures Procedure Name Priority Date/Time Associated Diagnosis Comments TSH Routine 08/15/2014 12:55 PM EDT Type I (juvenile type) diabetes mellitus with neurological manifestations, not stated as uncontrolled HEMOGLOBIN A1C Routine 08/15/2014 12:55 PM EDT Type I (juvenile type) diabetes mellitus with neurological manifestations, not stated as uncontrolled documented in this encounter Results * TSH (08/15/2014 12:55 PM EDT) Thyroid Stimulating Hormone 0.66 0.27 - 4.20 mcIU/mL [facility] Blood specimen (specimen) 08/15/2014 12:55 PM EDT 08/15/2014 1:04 PM EDT Narrative Resulting Agency Comment Spec In Lab Chris Chatman MD CHEMISTRY ORDERABLES [facility] * (ABNORMAL) Hemoglobin A1c (08/15/2014 12:55 PM EDT) Hemoglobin A1c 7.6(H) 4.3 - 5.6 % [facility] Comment: Reference Range: 4.3 - 5.6% 5.7 [...] Mellitus, Diabetes Care 2013; 36: Suppl. 1, S67-74 Estimated Average Glucose 171 mg/dL [facility] Comment: eAG equivalents for HbA1c percentages: HbA1c(%) ?eAG(mg/dL) 6.0 ?126 6.5 ?140 7.0 ?154 7.5 ?169 8.0 ?183 8.5 ?197 9.0 ?212 9.5 ?226 10.0 ? 240 Limitations: The eAG calculation has not been validated on women, individuals below 18 years old and above 70 years old, and individuals with hemoglobinopathies. Additional resources are available on the ADA website: http://CorporateWorld.Hosted Systems/DHMCadacalc Alfred JEFFRIES, Risa J, Sergio R, et al. ??Translating the A1C assay into estimated average glucose values. ??Diabetes Care 2008:31(8):3234-0025. Blood specimen (specimen) 08/15/2014 12:55 PM EDT 08/15/2014 1:04 PM EDT Narrative Resulting Agency Comment Spec In Lab Chris Chatman MD CHEMISTRY ORDERABLES Performing Organization Address City/State/ZIP Co ks Phone Number [facility] documented in this encounter Visit Diagnoses Diagnosis Type I (juvenile type) diabetes mellitus with neurological manifestations, not stated as uncontrolled(250.61) Type I (juvenile type) diabetes mellitus with neurological manifestations, not stated as uncontrolled documented in this encounter Care Teams Automotive Service Professional Relationship Specialty Start Date End Date Alexander Adams MD [address] [place] [address] PCP - General 04/06/12 07/26/23 documented as of this encounter
--- OUTSIDE RECORDS SUMMARY | 2024-02-15 22:03 | XMS_ITS | Encounter Summary ---
[place] [address] Care Team Providers Care Electronic Prepress System Operator Name Role Phone Alexander Adams MD Primary Care Provider [phone] Encounter Details Date Type Department Care Team (Latest Contact Info) Description 09/23/2015 9:28 AM EDT - 09/23/2015 11:59 PM EDT Hospital Encounter Non-[place]vasive [place] [address] Norm Garcia MD [facility] [place] [address] Discharge Disposition: Home Social History Tobacco Use [...] Sig Dispensed Refills Start Date End Date insulin glargine (LANTUS) Solution Inject 28 Units [...] for Pain. 60 tablet 3 02/17/2015 09/29/2017 Diabetic Supplies, i-design Multimediaan. [facility] Fax from to [facility] for pump supplies 100 each 12 08/27/2014 11/12/2015 Diabetic Supplies, AiCuriscellan. [facility] Fax form to [facility] for testing supplies 100 each 12 08/08/2014 03/31/2017 lansoprazole (PREVACID) 30 mg capsule Take 30 mg by mouth daily. 07/27/2023 Blood Sugar Diagnostic (ONE TOUCH ULTRA TEST) test strip Test BG 5-6 times daily. Diagnosis code 250.63 600 each 3 03/12/2013 03/31/2017 Blood-Glucose Meter (ONE TOUCH ULTRA 2) monitoring kit 1 each by [facility].(Non-Drug; Combo Route) route as needed for Other. Test BG 5-6 times daily. Diagnosis code 250.63 1 each 0 03/12/2013 03/31/2017 Lancets (ONE TOUCH ULTRASOFT LANCETS) Misc 1 each by [facility].(Non-Drug; Combo Route) route 6 times daily. Diag code 250.63 600 each 3 03/12/2013 03/31/2017 cholecalciferol, Vitamin D3, (CHOLECALCIFEROL, VITAMIN D3,) 2,000 unit Capsule Take 2,000 Units by mouth daily. 12/13/2018 Insulin [place], Disposable, (BD INSULIN PEN NEEDLE UF SHORT) 31 X 08/17 Ndle by [facility].(Non-Drug; Combo Route) route. 03/31/2017 SUBCUTANEOUS INSULIN PUMP (INSULIN PUMP [id number] [facility]) by [facility].(Non-Drug; Combo Route) route. [...] AM EST Office Visit Cardiology at [address] [address] Ruben Hartman, PA [facility] [place] [address] 04/26/2024 10:00 AM EST Hospital Encounter Non-[place]vasive [place] [address] Arrived 09/24/2024 4:00 PM EDT Office Visit Cardiology at [address] [phone] Nathaniel Keita MD [facility] [place] [address] documented as of this encounter Visit Diagnoses Not on filedocumented in this encounter Care Teams Electronic Prepress System Operator Relationship Specialty Start Date End Date Alexander Adams MD [address] [place] [address] PCP - General 04/06/12 07/26/23 documented as of this encounter
--- OUTSIDE RECORDS SUMMARY | 2024-02-15 22:03 | XMS_ITS | Encounter Summary ---
[place] [address] Care Team Providers Care Director Life Sciences Name Role Phone Alexander Adams MD Primary Care Provider [phone] Reason for Visit * Reason Comments Cardiomyopathy Encounter Details Date Type Department Care Team (Late st Contact Info) Description 06/23/2015 3:00 PM EDT Office Visit Cardiology at [address] [phone] Thaddeus Cespedes, RN Ventricular fibrillation- with Medtronic ICD implanted [...] Time Taken Comments Blood Pressure 152/70 06/23/2015 2:50 PM EDT Pulse 88 06/23/2015 2:50 PM EDT Temperature - - Respiratory Rate - - Oxygen Saturation 98% 06/23/2015 2:50 PM EDT Inhaled Oxygen Concentration - - Weight 78 kg (172 lb) 06/23/2015 2:50 PM EDT Height 172.7 cm (5' 8) 06/23/2015 2:50 PM EDT Body Mass Index 26.15 06/23/2015 2:50 PM EDT documented in this encounter Progress Notes * Thaddeus Cespedes RN - 06/23/2015 2:52 PM EDT Ms. Cole is a 69 years old female who presents to the clinic today for ICD interrogation. The ICDwas implanted 07/01/2009 due to Secondary prevention s/p ventricular fibrillation cardiac arrest. She voices no device-related complaints today Pt enrolled in SLS study. PCP: ALEXANDER ADAMS MD Nail Feeder: Milind Beasley MD Device and lead information Final Parameters: Ventricular lead: Medtronic Sprint Quattro Model# 6947-58 cm Serial #[id number] ??? Bipolar, steroid-tipped, active-fixation IS-1, DF-1 lead ??? Access: Left axillary vein ??? Location: Right ventricular apex ??? R wave, ICD: 8.0 mV ??? Pacing threshold, ICD: 1.0 V at 0.5 ms ??? Impedance, ICD: 532 ohms ??? HVB Impedance 33 ohms ??? SVC Impedance 39 ohms ??? Pace the diaphragm at 10 V: No Pulse generator: Medtronic John II VR Model# [id number] Serial# [id number] ??? Single-chamber ICD ??? Location: Subcutaneous Parameters: VF detection rate: >200 bpm VF therapy: ATP during charging, 30J, 35J x 5 FVT detection rate: via VF 250 bpm FVT therapy: Burst(1), 30J, 35J x 4 VT detection rate:182 bpm VT therapy: Burst(3), 20J, 35J x 4 Enhancement: Wavelet, VT Monitor Bradycardia pacing: VVI 40 Follow-up Battery status: 3.05 V HELPER COORDINATOR: 2.63 V Charge time: 9.1 sec 01/02/2015 SIC: 0 Pace/Sensing Leads -Right Ventricular: R wave: 3.9 mV (stable per trend review) Threshold: 0.75 V at 0.4 ms Impedance: 779 ohms EGM quality: clean -Shocking leads: V Defib impedance: 43 ohms SVC impedance: 58 ohms EGM quality: clean Lead impedance values all stable Therapy Administered: None Observations: 40 NSVT recorded and 1 SVT. Avg vent rate 176-214 bpm, all brief, similar to that seen before Pacing percentages: VS 100% Histogram is well distributed. Underlying rhythm: SR 80 bpm Incision site: well healed left chest. Changes made this session: None Plan: 3 mos Care Link. 6 mos device clinic Addendum I have personally reviewed the device interrogation as performed by Thaddeus Cespedes RN Single chamber ICD 100% V sensed Reasonable rate histogram(s) Non sustained VT Probable SVT also seen Normal device function Summary 1) Normal device function 2) Routine follow up as planned VIMAL MEYERS MD documented in this encounter Plan of Treatment Upcoming Encounters Date Type Department Care Team (Late st Contact Info) Description 02/29/2024 10:00 AM EST Office Visit Cardiology at [address] [address] Ruben Hartman PA [facility] [place] [address] 04/26/2024 10:00 AM EST Hospital Encounter Non-[place]vasive [place] [address] Arrived 09/24/2024 4:00 PM EDT Office Visit Cardiology at [address] [phone] Nathaniel Keita MD [facility] [place] [place] [address] documented as of this encounter Visit Diagnoses Diagnosis Ventricular fibrillation- with Medtronic ICD implanted 2009 Ventricular fibrillation documented in this encounter Care Teams Director Life Sciences Relationship Specialty Start Date End Date Alexander Adams MD [address] [place] [address] PCP - General 04/06/12 07/26/23 documented as of this encounter
--- OUTSIDE RECORDS SUMMARY | 2024-02-15 22:03 | XMS_ITS | Encounter Summary ---
[place] [address] Care Team Providers Care Medical Staff Coordinator Name Role Phone Alexander Adams MD Primary Care Provider [phone] Reason for Visit * Reason Comments Blurred Vision DOC visit, 2 day h/o foggy vision OS Encounter Details Date Type Department Care Team (Latest Contact Info) Description 07/31/2014 3:15 PM EDT Office [place] [address] Celena Briceño MD [facility] [place] [address] Diabetic retinopathy of left eye, due to underlying condition, without macular edema, with proliferative retinopathy; Vitreous hemorrhage of left eye; Posterior vitreous detachment of left eye Discharge Disposition: Home Social [...] as of this encounter Progress Notes * Celena Briceño MD - 07/31/2014 3:49 PM EDT Liane Cole is a 68 y.o. 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 PDR OU s/p PRP OU in 1988. 2. Focal vitreous hemorrhage OS with vit debris. Appearance of traction at border of PRP scars. No fluid on OCT. Preserved vision 20/25, but pt notices foggy vision. No NV noted. ?hemorrhagic PVD. 3. Pseudophakic OU. Clear posterior capsule OU. Plan: F/u with Retina service (Dr. Cleary or Olga) in 3-4 weeks. She is leaving in 2 days for 2weeks to [place]. Patient to seek local care if sudden change in vision. Cleena Briceño MD documented in this encounter Plan of Treatment Upcoming Encounters Date Type Department Care Team (Late st Contact Info) Description 02/29/2024 10:00 AM EST Office Visit Cardiology at [address] [address] Ruben Hartman PA [facility] [address] [place] [address] 04/26/2024 10:00 AM EST Hospital Encounter Non-[place]vasive [place] [address] Arrived 09/24/2024 4:00 PM EDT Office Visit Cardiology at [address] [address] Nathaniel Keita MD [facility] [address] [place] [address] documented as of this encounter Procedures Procedure Name Priority Date/Time Associated Diagnosis Comments OCT RETINA - OS - LEFT EYE Routine 07/31/2014 5:43 PM EDT Diabetic retinopathy of left eye, due to underlying condition, without macular edema, with proliferative retinopathy Vitreous hemorrhage of left eye Posterior vitreous detachment of left eye documented in this encounter Results * OCT Omvxqw-EV-FLOO EYE (07/31/2014 5:43 PM EDT) Anatomical Region Laterality Modality Other Narrative 07/31/2014 5:43 PM EDT No macular edema. ??No vitreous traction noted in tested area. ?? Celena Briceño MD OPHTHALMOLOGY SERVIC ES ORDERABLES documented in this encounter Visit Diagnoses Diagnosis Diabetic retinopathy of left eye, due to underlying condition, without macular edema, with proliferative retinopathy Vitreous hemorrhage of left eye Vitreous hemorrhage Posterior vitreous detachment of left eye Vitreous degeneration documented in this encounter Care Teams Medical Staff Coordinator Relationship Specialty Start Date End Date Alexander Adams MD [address] [place] [address] PCP - General 04/06/12 07/26/23 documented as of this encounter
--- OUTSIDE RECORDS SUMMARY | 2024-02-15 22:03 | XMS_ITS | Encounter Summary ---
[place] [address] Care Team Providers Care Lithographic Platemaker Name Role Phone Alexander Adams MD Primary Care Provider [phone] Encounter Details Date Type Department Care Team (Late st Contact Info) Description 04/14/2015 Notes [place] [phone] Stella Hernandez LPN Social History Tobacco Use [...] as of this encounter Progress Notes * Stella Hernandez LPN - 04/14/2015 2:08 PM EST Statement of Certifying physician for therapeutic shoes signed by Dr Mendoza faxed to Dr Kan King documented in this encounter Plan of Treatment Upcoming Encounters Date Type Department Care Team (Late st Contact Info) Description 02/29/2024 10:00 AM EST Office Visit Cardiology at [address] [address] Ruben Hartman PA [place] [address] 04/26/2024 10:00 AM EST Hospital Encounter Non-Invasive Cardiology Lab [facility] [place] [address] Arrived 09/24/2024 4:00 PM EDT Office Visit Cardiology at [address] [phone] Nathaniel Keita MD [place] [address] documented as of this encounter Visit Diagnoses Not on filedocumented in this encounter Care Teams Lithographic Platemaker Relationship Specialty Start Date End Date Alexander Adams MD [address] [place] [address] PCP - General 04/06/12 07/26/23 documented as of this encounter
--- OUTSIDE RECORDS SUMMARY | 2024-02-15 22:03 | XMS_ITS | Encounter Summary ---
[place] [address] Care Team Providers Care Pediatrics Physician Name Role Phone Alexander Adams MD Primary Care Provider [phone] Reason for Visit * Reason Onset Date Comments Medication Refill 12/10/2014 Encounter Details Date Type Department Care Team (Late st Contact Info) Description 12/10/2014 Refill [place] [address] Jaylin Salcido [facility] DR END[place]IN[place] [address] Social History Tobacco Use Types Packs/Day Years [...] 10:00 AM EST Office Visit Cardiology at [address] [phone] Ruben Hartman, LAURA [facility] [place] [address] 04/26/2024 10:00 AM EST Hospital Encounter Non-Invasive Cardiology Lab [facility] [place] [address] Arrived 09/24/2024 4:00 PM EDT Office Visit Cardiology at [address] [address] Nathaniel Keita MD [facility] [place] [address] documented as of this encounter Visit Diagnoses Not on filedocumented in this encounter Care Teams Pediatrics Physician Relationship Specialty Start Date End Date Alexander Adams MD [address] [place] [address] PCP - General 04/06/12 07/26/23 documented as of this encounter
--- OUTSIDE RECORDS SUMMARY | 2024-02-15 22:03 | XMS_ITS | Encounter Summary ---
[place] [address] Care Team Providers Care Scallop Raker Name Role Phone Alexander Adams MD Primary Care Provider [phone] Reason for Visit * Reason Onset Date Comments Medication Refill 07/29/2014 Encounter Details Date Type Department Care Team (Late st Contact Info) Description 07/29/2014 Ref[place] [address] Jaylin Salcido [facility] [place] [address] Social History Tobacco Use Types Packs/Day Years [...] 10:00 AM EST Office Visit Cardiology at [address] [place] [phone] Ruben Hartman, LAURA [facility] [place] [address] 04/26/2024 10:00 AM EST Hospital Encounter Non-Invasive Cardiology Lab [facility] [place] [address] Arrived 09/24/2024 4:00 PM EDT Office Visit Cardiology at [address] [place] [address] Nathaniel Keita MD [facility] [place] [place] [address] documented as of this encounter Visit Diagnoses Not on filedocumented in this encounter Care Teams Scallop Raker Relationship Specialty Start Date End Date Alexander Adams MD [address] [place] [address] PCP - General 04/06/12 07/26/23 documented as of this encounter
--- OUTSIDE RECORDS SUMMARY | 2024-02-15 22:03 | XMS_ITS | Encounter Summary ---
[place] [address] Care Team Providers Care Cloth Wire Weaver Name Role Phone Alexander Adams MD Primary Care Provider [phone] Encounter Details Date Type Department Care Team (Late st Contact Info) Description 07/07/2015 Notes [place] [phone] [place] [address] Social History Tobacco Use Types Packs/Day Years [...] as of this encounter Progress Notes * Lu Huitron LD - 07/07/2015 11:26 AM EDT Insulin Pump Supplies Paperwork filled out and needs to be signed by Jaylin Salcido. Once signed paperwork will be faxed to [employer]. documented in this encounter Plan of Treatment Upcoming Encounters Date Type Department Care Team (Late st Contact Info) Description 02/29/2024 10:00 AM EST Office Visit Cardiology at [address] [phone] Ruben Hartman PA [facility] [place] [address] 04/26/2024 10:00 AM EST Hospital Encounter [place] [address] Arrived 09/24/2024 4:00 PM EDT Office Visit Cardiology at [address] [phone] Nathaniel Keita MD [facility] [place] [address] documented as of this encounter Visit Diagnoses Not on filedocumented in this encounter Care Teams Cloth Wire Weaver Relationship Specialty Start Date End Date Alexander Adams MD [address] [place] [address] PCP - General 04/06/12 07/26/23 documented as of this encounter
--- OUTSIDE RECORDS SUMMARY | 2024-02-15 22:03 | XMS_ITS | Encounter Summary ---
Author Organization [facility] [place] [address] Care Team Providers Care Bible Teacher Name Role Phone Alexander Adams MD Primary Care Provider [phone] Reason for Visit * Reason Comments Follow-up Encounter Details Date Type Department Care Team (Late st Contact Info) Description 05/16/2014 9:10 AM EST Follow-Up Cardiology at [address] [address] Thaddeus Cespedes RN Andrus, Bruce W, MD [facility] [place] [address] Ventricular fibrillation- with ICD; Essential hypertension; CHD, s/p arrest and 2v CABG in 2009, preserved LV function Discharge Disposition: Home Social History Tobacco Use [...] Time Taken Comments Blood Pressure 130/60 05/16/2014 9:09 AM EST Pulse 88 05/16/2014 9:09 AM EST Temperature - - Respiratory Rate - - Oxygen Saturation 99% 05/16/2014 9:09 AM EST Inhaled Oxygen Concentration - - Weight 88.5 kg (195 lb) 05/16/2014 9:09 AM EST Height 172.7 cm (5' 7.99) 05/16/2014 9:09 AM ES T Body Mass Index 29.66 05/16/2014 9:09 AM EST documented in this encounter Progress Notes * Milind Beasley MD - 05/16/2014 8:57 AM EST [facility] Cardiology Clinic Identification Ms. Cole is a 68 y.o. capsule filler followed by Dr. Adams, an auriculotherapist in [place], [place] with the following CV issues: 1. CAD presenting with OOH VF arrest, 2v CABG and ICD implanted June 2009, preserved LVEF 2. Medtronic defibrillator, single lead, implanted for secondary prevention in 2009 following out of hospital arrest (in bed at 2 am) 3. Hypertension, labile, likely autonomic neuropathy. Comorbidities include DM type 1 (onset age 16, on pump), GERD, and lumbar spine disease (s/p fusionJune 2013) Present Illness Last seen Jan 2013 Has spinal fusion in September at [facility] and it made a BIG difference No cardiac concerns. No angina, sob, edema, palpitations. No ICD discharges Had DSE preop in September and it showed only apical ischemia. Walking 3 miles per hour. Last A1c was 7.9. Increased insulin to 1 unit for every 8 gms of CHO. Social History (Phillip) Lives in [place], [place]. Near [facility]. 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 Family History Notable for diabetes, coronary disease, and strokes. Medications Current Outpatient Prescriptions Medication Sig Dispense Refill ??? Diabetic Supplies, Miscellan. [facility] Fax form to [employer] for INSULIN PUMP SUPPLIES 100 each 12 ??? valsartan (DIOVAN) 40 mg Tablet Take 1 tablet by mouth daily. 90 tablet 3 ??? insulin lispro (HUMALOG) Solution Inject 50-60 Units subcutaneously continuous. Daily via insulin pump 60 mL 3 ??? traMADol-acetaminophen (ULTRACET) 37.5-325 mg per tablet Take 1 tablet by mouth 2 times daily as needed for Pain. 60 tablet 5 ??? lansoprazole (PREVACID) 30 mg capsule Take 30 mg by mouth daily. ??? insulin glargine (LANTUS) vial injection Inject 28 Units subcutaneously daily. PRN for pump failure 10 mL prn ??? metoprolol succinate (TOPROL-XL) 25 mg 24 hr tablet Take 0.5 tablets by mouth daily. 45 tablet 3 ??? glucagon, human recombinant, 1 mg injection Inject 1 mL into the muscle as needed. 1 each prn ??? Blood Sugar Diagnostic (ONE TOUCH ULTRA TEST) test strip Test BG 5-6 times daily. Diagnosis code 250.63 600 each 3 ??? Blood-Glucose Meter (ONE TOUCH ULTRA 2) monitoring kit 1 each by [facility].(Non- Drug; Combo Route) route as needed for Other. Test BG 5-6 times daily. Diagnosis code 250.63 1 each 0 ??? Lancets (ONE TOUCH ULTRASOFT LANCETS) [facility] 1 each by [facility].(Non-Drug; Combo Route) route 6 timesdaily. Diag code 250.63 600 each 3 ??? Cholecalciferol, Vitamin D3, (VITAMIN D-3) 2,000 unit Cap Take 2,000 Units by mouth daily. ??? atorvastatin (LIPITOR) 20 mg tablet Take 20 mg by mouth daily. ??? Insulin [place], Disposable, (BD INSULIN PEN NEEDLE UF SHORT) 31 X 5/16 Ndle by [facility].(Non-Drug; Combo Route) route. ??? SUBCUTANEOUS INSULIN PUMP (INSULIN PUMP [id number] [facility]) by [facility].(Non-Drug; Combo Route) route. ??? aspirin 81 mg chewable tablet Take 81 mg by mouth daily. ??? acetaminophen (TYLENOL) 325 mg tablet Take 650 mg by mouth every 4 hours as needed. ??? multivitamin (DAILY MULTIPLE) tablet ??? thiamine (VITAMIN B-1) 250 mg tablet 250 mg PO Once daily ??? Pyridoxine (VITAMIN B-6) 200 mg Tab 200 mg PO Once daily No current facility-administered medications for this visit. Allergies Lisinopril; Amiodarone; Ibandronate sodium; Adhesive tape; Alendronate sodium; Celecoxib; Codeine phosphate; Ezetimibe; Gabapentin; Kiwi; and Propoxyphene n-acetaminophen Physical Exam VS: BP 130/60 Pulse 88 Ht 172.7 cm (5' 7.99) Wt 88.451 kg (195 lb) BMI 29.66 kg/m2 SpO2 99% General: She is a pleasant healthy appearing woman in no acute distress. She is here alone. Skin: Warm and dry. HEENT: No scleral icterus. Lungs: Clear. Heart: JVP not elevated. No hepatojugular reflux. No carotid bruits. Heart sounds regular without murmurs. Abd: Soft and nontender. Ext: No edema. Neuro: Good cognition. Psych: Appropriate affect Assessment 1. Coronary disease s/p 2v CABG in 2009 doing very well. No angina. 2. Hx ventricular fibrillation with defibrillator in 2010 stable 3. Labile hypertension well controlled Plan ?? Recommended increase in atorvastatin to 40 mg daily regardless of lipid results ?? RTC in 1 year Milind Beasley MD 05/16/2014 CC: ALEXANDER ADAMS MD [address] / [facility] [address] documented in this encounter Plan of Treatment Upcoming Encounters Date Type Department Care Team (Late st Contact Info) Description 02/29/2024 10:00 AM EST Office Visit Cardiology at [address] [phone] Ruben Hartman, PA [facility] [place] [address] 04/26/2024 10:00 AM EST Hospital Encounter Non-Invasive [place] [address] Arrived 09/24/2024 4:00 PM EDT Office Visit Cardiology at [address] [phone] Nathaniel Keita MD [facility] [place] [address] documented as of this encounter Visit Diagnoses Diagnosis Ventricular fibrillation- with ICD Ventricular fibrillation Essential hypertension Unspecified essential hypertension CHD, s/p arrest and 2v CABG in 2009, preserved LV function Coronary atherosclerosis of unspecified type of vessel, [place] or graft documented in this encounter Care Teams Bible Teacher Relationship Specialty Start Date End Date Alexander Adams MD [address] [place] [address] PCP - General 04/06/12 07/26/23 documented as of this encounter
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
--- OUTSIDE RECORDS SUMMARY | 2024-02-15 22:03 | XMS_ITS | Encounter Summary ---
[place] [address] Care Team Providers Care French Comber Name Role Phone Alexander Adams MD Primary Care Provider [phone] Encounter Details Date Type Department Care Team (Late st Contact Info) Description 03/04/2015 Orders Only Cardiology at [address] [address] Social History Tobacco Use Types Packs/Day Years [...] AM EST Office Visit Cardiology at [address] [phone] Ruben Hartman, [facility] [place] [address] 04/26/2024 10:00 AM EST Hospital Encounter Non-Invasive Cardiology Lab Formerly [facility] [place] [address] Arrived 09/24/2024 4:00 PM EDT Office Visit Cardiology at [address] [place] [address] Nathaniel Keita MD [facility] [place] [address] documented as of this encounter Procedures Procedure Name Priority Date/Time Associated Diagnosis Comments CARDIAC DEVICE CHECK - REMOTE Routine 03/04/2015 8:33 AM EST documented in this encounter Results * (ABNORMAL) Cardiac device check - Remote (03/04/2015 8:33 AM EST) Date Time Interrogation Session [id number] [employer]CO Implantable Pulse Generator Data Engineer Medtronic IDCO Implantable Pulse Generator Model John II VR [id number] IDCO Implantable Pulse Generator Serial Number [id number] IDCO Type Interrogation Session Remote IDCO Implantable Pulse Generator Type Defibrillator IDCO Implantable Pulse Generator Implant Date [id number] IDCO Marcel Setting Mode (NBG Code) VVI [...] ms IDCO Battery Date Time of Measurements [id number] IDCO Battery Status OK IDCO Battery CORK INSULATOR HELPER Trigger 2.6251 IDCO Battery Voltage 3.05 V IDCO Capacitor Charge Type Reformation IDCO Capacitor Last Charge Date Time [id number] IDCO Capacitor Charge Time 9.118 s IDCO Capacitor Charge Energy 35 J IDCO Episode Identifier 141 IDCO Episode Type Category SVT IDCO Episode Date Time [id number] IDCO Episode Duration 5 s IDCO Episode Identifier 153 IDCO Episode Date Time [id number] IDCO Episode Duration 1 s IDCO Episode Identifier 152 IDCO Episode Date Time [id number] IDCO Episode Duration 0 s IDCO Episode Identifier 151 IDCO Episode Date Time [id number] IDCO Episode Duration 1 s IDCO Episode Identifier 150 IDCO Episode Date Time [id number] IDCO Episode Duration 1 s IDCO Episode Identifier 149 IDCO Episode Date Time [id number] IDCO Episode Duration 1 s IDCO Episode Identifier 148 IDCO Episode Date Time [id number] IDCO Episode Duration 0 s IDCO Episode Identifier 147 IDCO Episode Date Time [id number] IDCO Episode Duration 0 s IDCO Episode Identifier 146 IDCO Episode Date Time [id number] IDCO Episode Duration 0 s IDCO Episode Identifier 145 IDCO Episode Date Time [id number] IDCO Episode Duration 2 s IDCO Episode Identifier 144 IDCO Episode Date Time [id number] IDCO Episode Duration 1 s IDCO Episode Identifier 143 IDCO Episode Date Time [id number] IDCO Episode Duration 1 s IDCO Episode Identifier 142 IDCO Episode Date Time [id number] IDCO Episode Duration 1 s IDCO Episode Identifier 140 IDCO Episode Date Time [id number] IDCO Episode Duration 1 s IDCO Episode Identifier 139 IDCO Episode Date Time [id number] IDCO Episode Duration 1 s IDCO Episode Identifier 138 IDCO Episode Date Time [id number] IDCO Episode Duration 2 s IDCO Marcel Statistic Date Time Start [id number] IDCO Marcel Statistic Date Time End [id number] IDCO Marcel Statistic RV Percent Paced 0.00 % IDCO Therapy Statistic Recent Shocks Delivered 0 IDCO Therapy Statistic Recent Shocks Aborted 0 IDCO Therapy Statistic Recent ATP Delivered 0 IDCO Therapy Statistic Recent Date Time Start [id number] IDCO Therapy Statistic Recent Date Time End [id number] IDCO Therapy Statistic Total Shocks Delivered 0 IDCO Therapy Statistic Total Shocks Aborted 0 IDCO Therapy Statistic Total ATP Delivered 0 IDCO Therapy Statistic Total Date Time Start [id number] IDCO Therapy Statistic Total Date Time End [id number] IDCO Episode Statistic Recent Count 0 IDCO Episode Statistic Type Category VF IDCO Episode Statistic Recent Count 0 IDCO Episode Statistic Type Category VT IDCO Episode Statistic Recent Count 0 IDCO Episode Statistic Recent Count 0 IDCO Episode Statistic Recent Count 14 IDCO Episode Statistic Recent Count 1 IDCO Episode Statistic Type Category SVT IDCO Episode Statistic Recent Date Time Start [id number] IDCO Episode Statistic Recent Date Time End [id number] IDCO Episode Statistic Recent Date Time Start [id number] IDCO Episode Statistic Recent Date Time End [id number] IDCO Episode Statistic Recent Date Time Start [id number] IDCO Episode Statistic Recent Date Time End [id number] IDCO Episode Statistic Recent Date Time Start 22167495074052 IDCO Episode Statistic Recent Date Time End [id number] IDCO Episode Statistic Recent Date Time Start 84577897834103 IDCO Episode Statistic Recent Date Time End [id number] IDCO Episode Statistic Recent Date Time Start 48911897129567 IDCO Episode Statistic Recent Date Time End [id number] IDCO Episode Statistic Total Count 0 IDCO Episode Statistic Type Category VF IDCO Episode Statistic Total Count 0 IDCO Episode Statistic Type Category VT IDCO Episode Statistic Total Count 0 IDCO Episode Statistic Total Count 0 IDCO Episode Statistic Total Count 152 IDCO Episode Statistic Total Count 1 IDCO Episode Statistic Type Category SVT IDCO Episode Statistic Total Date Time Start 04591688873383 IDCO Episode Statistic Total Date Time End [id number] IDCO Episode Statistic Total Date Time Start 29395706603418 IDCO Episode Statistic Total Date Time End 71286580067361 IDCO Episode Statistic Total Date Time Start 87614064707223 IDCO Episode Statistic Total Date Time End 79661499143036 IDCO Episode Statistic Total Date Time Start 11569334745638 IDCO Episode Statistic Total Date Time End [id number] IDCO Episode Statistic Total Date Time Start 80232619980606 IDCO Episode Statistic Total Date Time End 11318902375048 IDCO Episode Statistic Total Date Time Start 76888216053374 IDCO Episode Statistic Total Date Time End 95406554436111 IDCO Anatomical Region Laterality Modality Other 03/04/2015 8:33 AM EST Physician Cardiology IMPLANTABLE CARD IAC DEVICE documented in this encounter Visit Diagnoses Not on filedocumented in this encounter Care Teams French Comber Relationship Specialty Start Date End Date Alexander Adams MD [address] [place] [address] PCP - General 04/06/12 07/26/23 documented as of this encounter
--- OUTSIDE RECORDS SUMMARY | 2024-02-15 22:04 | XMS_ITS | Encounter Summary ---
Author Organization [facility] [place] [address] Care Team Providers Care Dry Plasterer Name Role Phone Alexander Adams MD Primary Care Provider [phone] Encounter Details Date Type Department Care Team (Latest Contact Info) Description 07/06/2012 9:19 AM EDT - 07/06/2012 11:59 PM EDT Hospital [place] [address] Chris Chatman MD [facility] [place] [address] Type I (juvenile type) diabetes mellitus with neurological manifestations, not stated as uncontrolled; Hyperlipidemia Discharge Disposition: Home Social History Tobacco Use [...] Sig Dispensed Refills Start Date End Date aspirin 81 mg chewable tablet Take 81 mg by mouth daily. Pyridoxine (VITAMIN B-6) 200 mg Tab 200 mg PO Once daily 03/24/2010 metoprolol succinate (TOPROL-XL) 25 mg 24 hr tabletIndications:H ypertension Take 0.5 tablets by mouth daily. 90 tablet 3 06/19/2012 05/08/2013 insulin aspart (NOVOLOG) 100 unit/mL vial injection Inject subcutaneously. 50 to 60 units daily 60 mL 5 01/20/2012 03/12/2013 Diabetic Supplies, Miscellan. Misc by [facility].(Non-Drug; Combo Route) route. Insulin Pump Supplies and Diabetes Testing Supplies. Pt. Tests BS 4x/day. 90 day supply. Manually faxed to [employer] @[phone]. 12/13/2011 02/22/2013 simvastatin (ZOCOR) 20 mg tabletIndications:H yperlipidemia Take 1 tablet by mouth nightly. 90 tablet 3 12/02/2011 10/09/2012 esomeprazole (NEXIUM) 40 mg capsule Take 1 capsule by mouth daily. 90 capsule 3 12/02/2011 01/11/2013 traMADol-acetaminop hen (ULTRACET) 37.5-325 mg per tablet Take 1 tablet by mouth 2 times daily as needed for Pain. 60 tablet PRN 12/02/2011 01/11/2013 insulin glargine (LANTUS) 100 unit/mL vial injection Inject 28 Units subcutaneously every evening. PRN for pump failure 10 mL prn 12/02/2011 05/08/2013 valsartan (DIOVAN) 40 mg tablet Take 1 tablet by mouth daily. 90 tablet 3 08/16/2011 11/04/2012 Blood Sugar Diagnostic, Drum (ACCU-CHEK COMPACT TEST) Strp 6 strips by [facility].(Non-Drug; Combo Route) route 6 times daily. 4-6 times daily 6 Box 3 03/15/2011 05/08/2013 Insulin Belle, Disposable, (BD INSULIN PEN NEEDLE UF SHORT) 31 X 08/17 Ndle by [facility].(Non-Drug; Combo Route) route. 03/31/2017 SUBCUTANEOUS INSULIN PUMP (INSULIN PUMP [id number] [facility]) by [facility].(Non-Drug; Combo Route) route. 03/31/2017 acetaminophen (TYLENOL) 325 mg tablet Take 650 mg by mouth every 4 hours as needed. 09/29/2017 multivitamin (DAILY MULTIPLE) tablet 03/24/2010 03/31/2017 glucagon, human recombinant, 1 mg injection as directed IM PRN 03/24/2010 4 thiamine (VITAMIN B-1) 250 mg tablet 250 mg PO Once daily 03/24/2010 1 06/01/2016 DOCOSAHEXANOIC ACID/EPA (FISH OIL ORAL) 03/24/2010 01/11/2013 Cholecalciferol, Vitamin D3, (VITAMIN D) 1,000 unit Cap 03/24/2010 01/11/2013 documented as of this encounter Plan of Treatment Upcoming Encounters Date Type Department Care Team (Late st Contact Info) Description 02/29/2024 10:00 AM EST Office Visit Cardiology at [address] [phone] Ruben Hartman PA [facility] [place] [address] 04/26/2024 10:00 AM EST Hospital Encounter Non-[place] [address] Arrived 09/24/2024 4:00 PM EDT Office Visit Cardiology at [address] [phone] Nathaniel Keita MD [facility] [place] [address] documented as of this encounter Procedures Procedure Name Priority Date/Time Associated Diagnosis Comments U ALBUMIN/CRE RATIO Routine 07/06/2012 9 :36 AM EDT Type I (juvenile type) diabetes mellitus with neurological manifestations, not stated as uncontrolled VITAMIN D, 25-HYDROXY Routine 07/06/2012 9:25 AM EDT Type I (juvenile type) diabetes mellitus with neurological manifestations, not stated as uncontrolled LDL CHOLESTEROL, DIRECT Routine 07/06/2012 9:25 AM EDT Hyperlipidemia HDL/CHOL PROFILE Routine 07/06/2012 9:25 AM EDT Hyperlipidemia HEMOGLOBIN A1C Routine 07/06/2012 9:25 AM EDT Type I (juvenile type) diabetes mellitus with neurological manifestations, not stated as uncontrolled COMPREHENSIVE METABOLIC PANEL Routine 07/06/2012 9:25 AM EDT documented in this encounter Results * Microalbumin, urine, random (07/06/2012 9:36 AM EDT) Creatinine, Urine 126 mg/dL CE RNER MILLENNIUM Albumin, Urine 10.0 mg/L CERNE R MILLENNIUM Albumin / Creatinin Ratio, Urine 8 mcg/mg Cr [facility] Comment: Reference Range* Random collection (mcg/mg creatinine) Normal ?<30 Microalbuminuria ?? 30 - 300 Clinical Albuminuria ?? >300 *Citizen Of [place] Diabetes Association. Diabetic Nephropathy. Diabetes Care 1997;(Suppl 1):S24-S27 Exercise within 24 hour, infection, fever, CHF, marked hyperglycemia, and marked hypertension may elevate urinary albumin excretion over baseline values. Urine specimen (specimen) 07/06/2012 9:36 AM EDT 07/06/2012 9:45 AM EDT Narrative Resulting Agency Comment Spec In Lab Chris Chatman MD URINE ORDERABLES [facility] * (ABNORMAL) Comprehensive metabolic panel (non-fasting) (07/06/2012 9:25 AM EDT) Glucose 295(H) 60 - 199 mg/dL [facility] Comment:Diabetes: >=200 mg/d L plus symptoms Blood Urea Nitrogen 19(H) 8 - 18 mg/dL [facility]ERNER MILLENNIUM Creatinine 1.16 0.70 - 1.20 mg/dL [facility]ENNI[facility] Comment: Please note that the pediatric reference intervals supplied above were not validated at [facility]. Results from pediatric patients should be interpreted in conjunction to the patient's age, height and muscle mass. Sodium 136 135 - 145 mmol/L [facility]ERN[facility] MILLENNI[facility] Potassium 4.1 3.5 - 5.0 mmol/L [facility]NI[facility] Comment: Please note: ??Patients with WBC >100,000 may have falsely elevated Potassium levels. ??For accurate Potassium quantification in these patients send serum separator tube (gold top) for subsequent determinations. ??Contact the Clinical Chemistry Laboratory if there are any questions. Chloride 97(L) 98 - 107 mmol/L [facility] Carbon Dioxide 30 22 - 31 mmol/L [facility]ILLENNI[facility] Anion Gap 9 5 - 15 mmol/L [facility] MILLENNI[facility] Calcium 10.0 8.5 - 10.5 mg/dL CERN[facility] MILLENNIUM Protein, Total 7.2 6.4 - 8.3 gm/dL CERNER MILLENNIUM Albumin 4.1 3.2 - 5.2 gm/dL [facility]ERN[facility] MILLENNIUM Aspartate Aminotransferase 27 0 - 30 unit/L CERNER MILLENNIUM Alanine Aminotransferase 23 0 - 30 unit/L CERNER MILLENNIUM Alkaline Phosphatase 102 40 - 104 unit/L CERNER MILLENNIUM Bilirubin, Total 0.4 0.2 - 1.3 mg/dL CERNER MILLENNIUM Bilirubin, Direct 0.1 0.0 - 0.3 mg/dL CERN[facility] MILLENNIUM Est Glomerular Filtration Rate 47(L) >=60 [facility]NI[facility] Comment: The National Kidney Disease Education Program (NKDEP) has recommended all laboratories report estimated GFR (eGFR) along with plasma creatinine measurements to assist you with recognition of early kidney disease. Caveats: ??Plasma creatinine should be at steady-state (unchanged within the past week). For patients multiply eGFR by 1.2. The MDRD equation was developed using patients between the ages of 18 and 70 years. ?? The MDRD equation has not been validated for patients < 18 years of age and should not be used to assess renal function in the pediatric population. ??The MDRD eGFR equation will also overestimate the true GFR of patients above the age of 70. ??This overestimation is variable but increases with age. At present, NKDEP does NOT recommend using the MDRD equation for drug dosing purposes and pharmacists should continue to use their current dosing methods. In addition, numerical eGFR values greater than 60 ml/min/1.73 square meters should be treated as > 60, and not an exact number due to greater inaccuracies at these higher values. Per NKDEP, they classify normal renal function as any GFR >60ml/min/1.73 square meters; chronic kidney disease when GFR <60, and renal failure when GFR <15. ??This calculation may not be valid for patients with atypical muscle mass (very lean or obese), acute renal failure, and in patients with diabetic kidney disease. References: http://nkdep.nih.gov/resources/NKDEP_Suggestn4Labs_0606_508.pdf http://www.kidney.org/professionals/kls/pdf/faq_gfr.pdf Azar K, Phylicia NA, Cristobal AK, Bob TS, Anup AD, Luis Daniel BENJAMIN. Relative performance of the MDRD and CKD-EPI equations for estimating glomerular filtration rate among patients with varied clinical presentations. Clin J Am Soc Nephrol;6:1963-72. Blood specimen (specimen) 07/06/2012 9:25 AM EDT 07/06/2012 9:46 AM EDT Narrative Resulting Agency Comment Spec In Lab Chris Chatman MD CHEMISTRY ORDERABLES [facility] * (ABNORMAL) LDL Cholesterol, Direct (07/06/2012 9:25 AM EDT) LDL Cholesterol, Direct 114(H) <=99 mg/dL [facility] Comment: The National Cholesterol Education Program (NCEP) has set the following guidelines for LDL Cholesterol: Reference range: ?? Optimal: ?<100 mg/dL ?? Near Optimal/Above Optimal: ?? 100-129 mg/dL ?? Borderline high: ?130-159 mg/dL ?? High: ? 160-189 mg/dL ?? Very high: ?>rg=699 mg/dL REJI 2001: 285(19):2831-9560 Blood specimen (specimen) 07/06/2012 9:25 AM EDT 07/06/2012 9:46 AM EDT Narrative Resulting Agency Comment Spec In Lab Chris Chatman MD CHEMISTRY ORDERABLES Performing Organization Address [facility] de Phone Number [facility] * HDL/Cholesterol Profile (07/06/2012 9:25 AM EDT) Cholesterol, Total 187 <=199 mg/dL [facility] Comment: Recommendations of the NCEP Adult Treatment Panel for the following risk cutoff thresholds for the [place] Citizen [place] population: Desirable: <200 mg/dL Borderline High: 200-239 mg/dL High: > or = 240 mg/dL HDL Cholesterol 43 >=40 mg/dL [facility] Comment: Reference range: ??Low HDL: ?? < 40 mg/dL ??Normal: ?40-60 mg/dL ??Desirable: > 60 mg/dL REJI 2001; 285(19):6988-0652 Cholesterol/HDL Ratio 4.3 ratio [facility] Comment: A Cholesterol to HDL ratio below 4:1 is desirable. ??Studies suggest that increased CAD risk occurs at ratios above 5 for females and above 6 for men. ? Citizen Of [place] Heart Association ??(http://www.americanheart.org) ? Aurelia Int Med, 1994; 121:641 ? AM J Med, 1998; 105(1A):48S Blood specimen (specimen) 07/06/2012 9:25 AM EDT 07/06/2012 9:46 AM EDT Narrative Resulting Agency Comment Spec In Lab Chris Chatman MD CHEMISTRY ORDERABLES Performing Organization Address [facility] de Phone Number [facility] * VIT D Total Evaluation (07/06/2012 9:25 AM EDT) Vitamin D Total 25 OH 36 30 - 100 ng/mL [facility] Comment: Deficient <10 ng/mL Insufficient 10 to 29 ng/mL Sufficient 30 to 100 ng/mL Potential Intoxication >100 ng/mL According to the US National Osteoporosis Foundation, Vitamin D concentrations >30 ng/mL are sufficient to protect bone health. ??The National Kidney Foundation has similarly stated that patients with Vitamin D concentrations <30ng/mL should be considered to be insufficient or deficient. http://www.kidney.org/professionals/KDOQI/guidelines_bone/Guide7.htm http://www.nof.org/professionals/clinical-guidelines The IDS iSYS Vitamin D Immunoassay detects both 25-OH Vitamin D2 and 25-OH Vitamin D3, but only a total Vitamin D concentration is reported. Blood specimen (specimen) 07/06/2012 9:25 AM EDT 07/06/2012 9:46 AM EDT Narrative Resulting Agency Comment Spec In Lab Chris Chatman MD CHEMISTRY ORDERABLES [facility] * (ABNORMAL) Hemoglobin A1c (07/06/2012 9:25 AM EDT) Hemoglobin A1c 7.8(H) 4.3 - 6.1 % [facility] Comment: The [place] Diabetes Association (ADA) has stated that HbA1c values >or= 6.5% are consistent with the diagnosis of diabetes mellitus. In the absence of hyperglycemia (i.e. plasma glucose > 200 mg/dL) or classic symptoms of hyperglycemia a repeat measurement of HbA1c should be performed on a separate sample to confirm the diagnosis. The ADA also considers an HbA1c value between 5.7% and 6.4% to be consistent with an increased risk of diabetes (prediabetes). Patients with an HbA1c value in this range should be counseled about their increased risk of progressing to diabetes. Reference: Position Statement: Standards of Medical Care in Diabetes 2013. Diabetes Care 2013:36;suppl 1:S11-S66. Estimated Average Glucose 177 mg/dL [facility] Comment: eAG equivalents for HbA1c percentages: HbA1c(%) ?eAG(mg/dL) 6.0 ?126 6.5 ?140 7.0 ?154 7.5 ?169 8.0 ?183 8.5 ?197 9.0 ?212 9.5 ?226 10.0 ? 240 Limitations: The eAG calculation has not been validated on women, individuals below 18 years old and above 70 years old, and individuals with hemoglobinopathies. Additional resources are available on the ADA website: ??http://professional.diabetes.org/glucosecalculator.aspx Alfred JEFFRIES, Risa J, Sergio R, et al. ??Translating the A1C assay into estimated average glucose values. ??Diabetes Care 2008:31(8):4184-0261. Blood specimen (specimen) 07/06/2012 9:25 AM EDT 07/06/2012 9:46 AM EDT Narrative Resulting Agency Comment Spec In Lab Chris Chatman MD CHEMISTRY ORDERABLES [facility] documented in this encounter Visit Diagnoses Diagnosis Type I (juvenile type) diabetes mellitus with neurological manifestations, not stated as uncontrolled(250.61) Type I (juvenile type) diabetes mellitus with neurological manifestations, not stated as uncontrolled Hyperlipidemia Other and unspecified hyperlipidemia documented in this encounter Care Teams Dry Plasterer Relationship Specialty Start Date End Date Alexander Adams MD [address] [place] [address] PCP - General 04/06/12 07/26/23 documented as of this encounter
--- OUTSIDE RECORDS SUMMARY | 2024-02-15 22:04 | XMS_ITS | Encounter Summary ---
[place] [address] Care Team Providers Care Wheel Blocker Name Role Phone Alexander Adams MD Primary Care Provider [phone] Reason for Visit * Reason Comments Medication Refill Encounter Details Date Type Department Care Team (Late st Contact Info) Description 08/02/2012 Refill [place] [address] [facility] [place] [address] Social History Tobacco Use Types Packs/Day Years [...] 10:00 AM EST Office Visit Cardiology at [address] [phone] Ruben Hartman, PA [facility] [place] [address] 04/26/2024 10:00 AM EST Hospital Encounter Non-Invasive Cardiology Lab [facility] [place] [address] Arrived 09/24/2024 4:00 PM EDT Office Visit Cardiology at [address] [place] [address] [address] [facility] [place] [address] documented as of this encounter Visit Diagnoses Not on filedocumented in this encounter Care Teams Wheel Blocker Relationship Specialty Start Date End Date Alexander Adams MD [address] [place] [address] PCP - General 04/06/12 07/26/23 documented as of this encounter
--- OUTSIDE RECORDS SUMMARY | 2024-02-15 22:04 | XMS_ITS | Encounter Summary ---
[place] [address] Care Team Providers Care Barrel Assembler Helper Name Role Phone Alexander Adams MD Primary Care Provider Encounter Details Date Type Department Care Team (Late st Contact Info) Description 10/18/2012 External Results Cardiology at [address] [phone] Neva Pugh MD [address] [place] [phone] Social History Tobacco Use Types Packs/Day Years [...] AM EST Office Visit Cardiology at [address] [place] [address] Rubne Hartman, PA [facility] [place] [address] 04/26/2024 10:00 AM EST Hospital Encounter Non-Invasive Cardiology Lab [facility] [place] [address] Arrived 09/24/2024 4:00 PM EDT Office Visit Cardiology at [address] [place] [phone] Nathaniel Keita MD [facility] [place] [address] documented as of this encounter Procedures Procedure Name Priority Date/Time Associated Diagnosis Comments EP DEVICE SCAN Routine 10/10/2012 documented in this encounter Results * Scan Doc: EP Device (10/10/2012) Anatomical Region Laterality Modality Other Neva Pugh MD MEDIA MGR SCAN EXT O RDR/RSLT documented in this encounter Visit Diagnoses Not on filedocumented in this encounter Care Teams Barrel Assembler Helper Relationship Specialty Start Date End Date Alexander Adams MD [address] [place] [address] PCP - General 04/06/12 07/26/23 documented as of this encounter
--- OUTSIDE RECORDS SUMMARY | 2024-02-15 22:04 | XMS_ITS | Encounter Summary ---
[place] [address] Care Team Providers Care Diesel Locomotive Crane Operator Name Role Phone Alexander Adams MD Primary Care Provider [phone] Reason for Visit * Reason Onset Date Comments Medication Refill 11/19/2013 Encounter Details Date Type Department Care Team (Late st Contact Info) Description 11/19/2013 Refill [place] [address] Jaylin Sandoval APRN [facility] [place] [address] Social History Tobacco Use Types Packs/Day Years [...] encounter Miscellaneous Notes * Telephone Encounter - Martha Rod RN - 11/20/2013 7:52 AM EDTFrom: Liane Cole To: Jaylin Sandoval APRN Sent: 11/19/2013 10:56 AM EDT Subject: Medication Renewal Request Original authorizing provider: PERLA NINO would like a refill of the following medications: traMADol-acetaminophen (ULTRACET) 37.5-325 mg per tablet [JAYLIN SANDOVAL APRN] Preferred pharmacy: [id number] - [place], [place] - [address] Comment: When I phoned for my refill today I was told that as of today this Rx. is now refillable only for 6months instead of 1 year as it used to be. Please renew this at [facility] in [place], [place] for the 60 tablets with 5 refills. Thanks so much. Katelynn Cole documented in this encounter Plan of Treatment Upcoming Encounters Date Type Department Care Team (Late st Contact Info) Description 02/29/2024 10:00 AM EST Office Visit Cardiology at [address] [address] Ruben Hartman PA [facility] [place] [address] 04/26/2024 10:00 AM EST Hospital Encounter Non-Invasive [place] [address] Arrived 09/24/2024 4:00 PM EDT Office Visit Cardiology at [address] [address] Nathaniel Keita MD [facility] [place] [address] documented as of this encounter Visit Diagnoses Not on filedocumented in this encounter Care Teams Diesel Locomotive Crane Operator Relationship Specialty Start Date End Date Alexander Adams MD [address] [place] [address] PCP - General 04/06/12 07/26/23 documented as of this encounter
--- OUTSIDE RECORDS SUMMARY | 2024-02-15 22:04 | XMS_ITS | Encounter Summary ---
[place] [address] Care Team Providers Care Cmm Technician Name Role Phone Alexander Adams MD Primary Care Provider [phone] Encounter Details Date Type Department Care Team (Latest Contact Info) Description 09/14/2013 10:00 AM EDT Clinical Support Cardiology at [address] [phone] Adrian Shrestha, HYDRAULIC PLUMBER HELPER [facility] [place] [address] Ventricular fibrillation Social History Tobacco Use Types Packs/Day Years [...] as of this encounter Progress Notes * Adrian Shrestha - 09/14/2013 10:25 AM EDT DSE Monitoring Ms. Cole is a 67 years old female who presents to the clinic today for ICD interrogation. The ICDwas implanted 07/01/2009 due to Secondary prevention s/p ventricular fibrillation cardiac arrest. She voices no device-related complaints today. I have been asked to monitor for a DSE. Pt enrolled in SLS study. PCP: ALEXANDER ADAMS MD Installer Interior Assemblies: Milind Beasley MD Device and lead information Final Parameters: Ventricular lead: Medtronic Sprint Quattro Model# 6947-58 cm Serial #[id number] Bipolar, steroid-tipped, active-fixation IS-1, DF-1 lead Access: Left axillary vein Location: Right ventricular apex R wave, ICD: 8.0 mV Pacing threshold, ICD: 1.0 V at 0.5 ms Impedance, ICD: 532 ohms HVB Impedance 33 ohms SVC Impedance 39 ohms Pace the diaphragm at 10 V: No Pulse generator: MedEmerald Logic John II VR Model# [id number] Serial# [id number] Single-chamber ICD Location: Subcutaneous Parameters: VF detection rate: >200 bpm VF therapy: ATP during charging, 30J, 35J x 5 FVT detection rate: via VF 250 bpm FVT therapy: Burst(1), 30J, 35J x 4 VT detection rate:182 bpm VT therapy: Burst(3), 20J, 35J x 4 Enhancement: Wavelet, VT Monitor Bradycardia pacing: VVI 40 Follow-up Battery status: 3.10 V MANUAL MACHINIST: 2.63 V Charge time: 8.7 sec 07/02/2009 SIC: 0 Pace/Sensing Leads -Right Ventricular: R wave: 2.9 mV (stable per trend review) Threshold: 1 V at 0.4 ms Impedance: 741 ohms EGM quality: clean -Shocking leads: V Defib impedance: 46 ohms SVC (HVX) impedance: 61 ohms EGM quality: clean Lead impedance values all stable Therapy Administered: None Observations: None. Pacing percentages: VS 100% Histogram is well distributed. Underlying rhythm: SR 80 bpm Incision site: Not evaluated, DSE. Impression: Appropriate ICD function. Changes made this session: Patient device interrogated prior to DSE and found to have normal function. No observations were noted and device detection suspended. The DSE was event free and once completed the device detection was resumed. Plan: 3 mos Care Link. 6 mos device clinic Adrian Shrestha, MSN, HYDRAULIC PLUMBER HELPER, CCDS documented in this encounter Plan of Treatment Upcoming Encounters Date Type Department Care Team (Late st Contact Info) Description 02/29/2024 10:00 AM EST Office Visit Cardiology at [address] [address] Ruben Hartman PA [facility] [place] [address] 04/26/2024 10:00 AM EST Hospital Encounter Non-[place] [address] Arrived 09/24/2024 4:00 PM EDT Office Visit Cardiology at [address] [address] Nathaniel Keita MD [facility] [place] [address] documented as of this encounter Visit Diagnoses Diagnosis Ventricular fibrillation documented in this encounter Care Teams Cmm Technician Relationship Specialty Start Date End Date Alexander Adams MD [address] [place] [address] PCP - General 04/06/12 07/26/23 documented as of this encounter
--- OUTSIDE RECORDS SUMMARY | 2024-02-15 22:04 | XMS_ITS | Encounter Summary ---
Author Organization [facility] [place] [address] Care Team Providers Care Inside Finisher Name Role Phone Alexander Adams MD Primary Care Provider [phone] Encounter Details Date Type Department Care Team (Late st Contact Info) Description 10/22/2013 Interpretation Only Radiology [address] [place] [address] [place] [phone] Unknown None Social History Tobacco Use Types Packs/Day Years [...] AM EST Office Visit Cardiology at [address] [phone] Ruben Hartman, [facility] [place] [address] 04/26/2024 10:00 AM EST Hospital Encounter Non-Invasive Cardiology Lab [address] [place] [address] Arrived 09/24/2024 4:00 PM EDT Office Visit Cardiology at [address] [place] [address] Nathaniel Keita MD [facility] [place] [address] documented as of this encounter Procedures Procedure Name Priority Date/Time Associated Diagnosis Comments XR LUMBAR SPINE AP FLEXION AND EXTENSION ONLY Routine 10/22/2013 1:23 PM EDT documented in this encounter Results * XR Lumbar Spine AP & Flexion & Extension Only (10/22/2013 1:23 PM EDT) Anatomical Region Laterality Modality L-spine N/A Radiographic Bushra ging 10/22/2013 1:23 PM EDT Narrative 10/22/2013 1:23 PM EDT APD Historical Result Principal Filter Machine Operator: ??DEEPTI ??HOOVER LUMBAR SPINE - FLEXION AND EXTENSION: HISTORY: ??Status post L4-5 posterior lumbar interbody fusion. COMPARISON: ??September 17, 2013, C-arm images. FINDINGS: Lateral neutral, flexion, and extension images submitted. ??Posterior interpedicular fusion, L4-5, with interposition graft is intact. ??The L5 pedicle screws extend to the posterior half of the L5 vertebral body. One of the L4 pedicle screws projects at the pedicle and does not breach the posterior vertebral body cortical margin while the other L4 pedicle screw minimally extends into the posterior L4 vertebral body. ??The appearance is grossly unchanged when compared to the limited C-arm images. ??There is approximately 7 mm anterolisthesis of L4 on L5 again noted. ??The remainder of the alignment is anatomic. ??Relative disc space narrowing and sclerosis at L4-5 is re-identified as well as at L2-3. Increased facet sclerosis consistent with facet osteoarthritis is noted. On voluntarily-positioned flexion and extension imaging, there is suggestion of mild increase of anterolisthesis of L4 on L5 measuring 9 to 10 mm on flexion imaging when compared to the neutral position. There does not appear to be significant change on extension imaging of the subluxation. ??The remainder of the alignment is unchanged. Extensive vascular calcifications are noted. IMPRESSION: Status post L4-5 posterior lumbar interbody fusion. ??There is suggestion of motion at the fusion on flexion imaging. Deepti Hoover MD BALAJI/radha [id number] CC: Procedure Note Unknown - 10/02/2018 APD Historical Result Principal Filter Machine Operator: DEEPTI HOOVER LUMBAR SPINE - FLEXION AND EXTENSION: HISTORY: Status post L4-5 posterior lumbar interbody fusion. COMPARISON: September 17, 2013, C-arm images. FINDINGS: Lateral neutral, flexion, and extension images submitted. Posteriorinterpedicular fusion, L4-5, with interposition graft is intact. The L5 pedicle screws extend tothe posterior half of the L5 vertebral body. One of the L4 pedicle screws projects at the pedicle anddoes not breach the posterior vertebral body cortical margin while the other L4 pedicle screwminimally extends into the posterior L4 vertebral body. The appearance is grossly unchanged whencompared to the limited C-arm images. There is approximately 7 mm anterolisthesis of L4 on U9kfogm noted. The remainder of the alignment is anatomic. Relative disc space narrowing and sclerosis atL4-5 is re-identified as well as at L2-3. Increased facet sclerosis consistent with facetosteoarthritis is noted. On voluntarily-positioned flexion and extension imaging, there issuggestion of mild increase of anterolisthesis of L4 on L5 measuring 9 to 10 mm on flexion imagingwhen compared to the neutral position. There does not appear to be significant change on extensionimaging of the subluxation. The remainder of the alignment is unchanged. Extensive vascular calcifications are noted. IMPRESSION: Status post L4-5 posterior lumbar interbody fusion. There issuggestion of motion at the fusion on flexion imaging. Deepti Hoover MD BALAJI/radha [id number] CC: Unknown IMG DX ORDERABLES documented in this encounter Visit Diagnoses Not on filedocumented in this encounter Care Teams Inside Finisher Relationship Specialty Start Date End Date Alexander Adams MD [address] [place] [address] PCP - General 04/06/12 07/26/23 documented as of this encounter
--- OUTSIDE RECORDS SUMMARY | 2024-02-15 22:04 | XMS_ITS | Encounter Summary ---
[place] [address] Care Team Providers Care Circulation Crew Leader Name Role Phone Alexander Adams MD Primary Care Provider [phone] Reason for Visit * Reason Comments Diabetes Encounter Details Date Type Department Care Team (Late st Contact Info) Description 05/08/2013 10:00 AM EST Office [place] [phone] [facility] 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 .. ALL 52 years of managing them! 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 BRIEF HISTORY: Presents and states glucose levels have generally been okay. SBGM: Four times a day. DX CODE: 250.53. Reason for higher frequency testing is to avoid severe hypoglycemia. DIABETES REGIMEN: MiniMed insulin pump. Basal rate 12 a.m. 1.2, 5 a.m. 1.15, 7 a.m. 1.2, 12 noon 1.2, 5 p.m. 1.25, 10 p.m. 1.15. Total basal 28.85. Insulin to carb 1:10 and correction factor 25. Target glucose 95 to 110. 24-HOUR MEAL PLAN: Same as at previous office visit. DATE OF DIAGNOSIS OF DIABETES: Fifty two years ago at age 16. Interestingly, two other family members were diagnosed with DM at age 16 as well. PREVENTION STRATEGIES: Prevention strategies are up to date. REVIEW OF SYSTEMS: Depression and Mood: Overall is doing okay. 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 Eyes: Followed closely by senior bookkeeper. No recent headaches or chest pain, has an ICD. GI symptoms: States she had cold symptoms and was vomiting for a while, but now that has resolved. Sleep pattern varies depending on amount of back pain she has. Extremities: Has little feeling in her feet, followed by building maintenance supervisor, Dr. King in [place]. PHYSICAL EXAMINATION: Appearance: She is overweight. Appears in good health. Weight today 191 pounds, same as January. Blood pressure 127/78. Eyes: No retinopathy with green light exam. Neck: No thyromegaly or lymphadenopathy. Heart: Regular rate and rhythm. No murmurs. Lungs are clear to auscultation. Feet: Right first toe, distal amputation, second left toe with distal amputation. Charcot changes. No arches. Pulses are present. Neuro: Decreased sensation to 10 g of pressure. LAB DONE TODAY: Hemoglobin A1c 8.2%, previous was 8.1% and other labs were drawn. 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 No change in regimen today. Advised the Patient that hemoglobin A1c at 8.2 % is acceptable to avoid hypoglycemia which she has had in the past. Requested refills which were done and sent to her pharmacy. Blood pressure is at goal. Return to office in [address] Nichols. Will check hemoglobin A1c and CMP. Gave the patient copy of her lab results today and reviewed them with her. This was a 35-minute office visit with 34 minutes spent counseling face to face with the patient in the management of glucose levels, reviewing prevention and treatment of hypoglycemia, reviewing her lab results, and gave her a copy. Recent Results (from the past 72 hour(s)) HEMOGLOBIN A1C Component Value Range Hemoglobin A1C 8.2 (*) <=5.6 % Est Avg Gluc 189 TSH Component Value Range TSH 1.21 0.27 - 4.20 mcIU/mL MICROALBUMIN, URINE, RANDOM Component Value Range U Creatinine 134 U Ran Malb Conc 16.4 U Ran Malb Calc 12 documented in this encounter Plan of Treatment Upcoming Encounters Date Type Department Care Team (Late st Contact Info) Description 02/29/2024 10:00 AM EST Office Visit Cardiology at [address] [phone] Ruben Hartman PA [facility] [place] [address] 04/26/2024 10:00 AM EST Hospital Encounter Non-Invasive Cardiology Lab [facility] [place] [address] Arrived 09/24/2024 4:00 PM EDT Office Visit Cardiology at [address] [place] [address] Nathaniel Keita MD [facility] [place] [address] documented as of this encounter Procedures Procedure Name Priority Date/Time Associated Diagnosis Comments U ALBUMIN/CRE RATIO Routine 05/08/2013 9 :51 AM EST Type I (juvenile type) diabetes mellitus with neurological manifestations, 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 This change is accompanied by a new interpretive statement and flags. Please review the new interpretive statement and contact Dr. Murphy or Dr. Gunter with questions. Reference Range: 4.3 ? 5.6% 5.7 ? 6.4% - Increased Risk of Developing Diabetes Mellitus 6.5% - Consistent with diagnosis of Diabetes Mellitus In the absence of hyperglycemia (i.e. plasma glucose > 200 mg/dL) or classic symptoms of hyperglycemia a repeat measurement of HbA1c should be performed on a separate sample to confirm the diagnosis. Diagnosis and Classification of Diabetes Mellitus, Diabetes Care 2013; 36: Suppl. 1, J38-70 Estimated Average Glucose 206 mg/dL THOMPSON TENA Comment: eAG equivalents for HbA1c percentages: HbA1c(%) [...] into estimated average glucose values. ??Diabetes Care 2008:31(8):1540-3407. Blood specimen (specimen) 08/08/2013 9:44 AM EDT 08/08/2013 9:52 AM EDT Narrative Resulting Agency Comment Spec In Lab Chris Chatman MD CHEMISTRY ORDERABLES THOMPSON JANELJUWANIUM * Microalbumin, urine, random (05/08/2013 9:51 AM EST) Creatinine, Urine 134 mg/dL CE RNMICHEL MILLENNIUM Albumin, Urine 16.4 mg/L JOSE R MILLENNIUM Albumin / Creatinin Ratio, Urine 12 mcg/mg Cr THOMPSON JACKSONIUM Comment: Reference Range* Random collection (mcg/mg creatinine) Normal ?<30 Microalbuminuria ?? 30 - 300 Clinical Albuminuria ?? >300 *[place] Diabetes Association. Diabetic Nephropathy. Diabetes Care 1997;(Suppl 1):S24-S27 Exercise within 24 hour, infection, fever, CHF, marked hyperglycemia, and marked hypertension may elevate urinary albumin excretion over baseline values. Urine specimen (specimen) 05/08/2013 9:51 AM EST 05/08/2013 10:09 AM EST Narrative Resulting Agency Comment Spec In Lab Chris Chatman MD URINE ORDERABLES Performing Organization Address [facility] de Phone Number [facility] * TSH (05/08/2013 9:49 AM EST) Thyroid Stimulating Hormone 1.21 0.27 - 4.20 mcIU/mL [facility] Blood specimen (specimen) 05/08/2013 9:49 AM EST 05/08/2013 10:09 AM EST Narrative Resulting Agency Comment Spec In Lab Chris Chatman MD CHEMISTRY ORDERABLES Performing Organization Address [facility] de Phone Number [facility] * (ABNORMAL) Hemoglobin A1c (05/08/2013 9:49 AM EST) Hemoglobin A1c 8.2(H) <=5.6 % JOSE TENA Comment: As of 2013 the methodology for Hemoglobin A1c testing has changed. This change is accompanied by a new interpretive statement and flags. Please review the new interpretive statement and contact Dr. Murphy or Dr. Gunter with questions. Reference Range: 4.3 ? 5.6% 5.7 ? 6.4% - Increased Risk of Developing Diabetes [...] 36: Suppl. 1, S67-74 Estimated Average Glucose 189 mg/dL [facility] Comment: eAG equivalents for HbA1c percentages: HbA1c(%) [...] into estimated average glucose values. ??Diabetes Care 2008:31(8):1665-4166. 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
--- OUTSIDE RECORDS SUMMARY | 2024-02-15 22:04 | XMS_ITS | Encounter Summary ---
Author Organization [facility] [place] [address] Care Team Providers Care Level Designer Name Role Phone Alexander Adams MD Primary Care Provider [phone] Encounter Details Date Type Department Care Team (Late st Contact Info) Description 01/09/2014 Interpretation Only Radiology [address] [place] [address] [place] [address] Unknown None Social History Tobacco Use Types [...] AM EST Office Visit Cardiology at [address] [address] Ruben Hartman, [facility] [place] [address] 04/26/2024 10:00 AM EST Hospital Encounter Non-Invasive Cardiology Lab [facility] [place] [address] Arrived 09/24/2024 4:00 PM EDT Office Visit Cardiology at [address] [place] [address] Nathaniel Keita MD [facility] [place] [place] [address] documented as of this encounter Procedures Procedure Name Priority Date/Time Associated Diagnosis Comments XR LUMBAR SPINE AP FLEXION AND EXTENSION ONLY Routine 01/09/2014 10:07 AM EDT documented in this encounter Results * XR Lumbar Spine AP & Flexion & Extension Only (01/09/2014 10:07 AM EDT) Anatomical Region Laterality Modality L-spine N/A Radiographic Bushra ging 01/09/2014 10:0 7 AM EDT Narrative 01/09/2014 10:07 AM EDT APD Historical Result Principal Coin Machine Supervisor: ??ANTOINE ??CHEO LUMBAR SPINE - TWO VIEWS: HISTORY: ??Posterior lumbar interpedicular fusion. FINDINGS: Lateral views of the lumbar spine are obtained in neutral, flexion, and extension positioning. The patient is status post fusion of L4-5 with laminotomy, September 17, 2013. ??Interbody fusion device is in place. ??The anterolisthesis of L4 on L5 appears fixated and stable with flexion, extension, and neutral positioning. ??There is no apparent motion within the limits of radiographic measurement. Degenerative change is present at the L2-3 level. ??Appropriate motion is demonstrated above the fused level. ??There is no appreciable motion of L5 on S1. IMPRESSION: Fused level remains stable with flexion, extension, and neutral positioning. Antoine Holden MD OL/radha [id number] CC: Procedure Note Unknown - 10/02/2018 APD Historical Result Principal Coin Machine Supervisor: ANTOINE HOLDEN LUMBAR SPINE - TWO VIEWS: HISTORY: Posterior lumbar interpedicular fusion. FINDINGS: Lateral views of the lumbar spine are obtained in neutral, flexion, andextension positioning. The patient is status post fusion of L4-5 with laminotomy, September 17, 2013.Interbody fusion device is in place. The anterolisthesis of L4 on L5 appears fixated and stable withflexion, extension, and neutral positioning. There is no apparent motion within the limits ofradiographic measurement. Degenerative change is present at the L2-3 level. Appropriate motion isdemonstrated above the fused level. There is no appreciable motion of L5 on S1. IMPRESSION: Fused level remains stable with flexion, extension, andneutral positioning. Antoine Holden MD OL/radha [id number] CC: Unknown IMG DX ORDERABLES documented in this encounter Visit Diagnoses Not on filedocumented in this encounter Care Teams Level Designer Relationship Specialty Start Date End Date Alexander Adams MD [address] [place] [address] PCP - General 04/06/12 07/26/23 documented as of this encounter
--- OUTSIDE RECORDS SUMMARY | 2024-02-15 22:04 | XMS_ITS | Encounter Summary ---
[place] [address] Care Team Providers Care Director Advertising Name Role Phone Alexander Adams MD Primary Care Provider [phone] Encounter Details Date Type Department Care Team (Late st Contact Info) Description 02/28/2013 [place] [address] Melissa Cleary MD Social History Tobacco Use Types Packs/Day Years [...] 10:00 AM EST Office Visit Cardiology at [address] [phone] Ruben Hartman, LAURA [facility] [address] 04/26/2024 10:00 AM EST Hospital Encounter Non-Invasive Cardiology Lab [facility] [address] Arrived 09/24/2024 4:00 PM EDT Office Visit Cardiology at [address] [place] [address] Nathaniel Keita MD [facility] [place] [address] documented as of this encounter Visit Diagnoses Not on filedocumented in this encounter Care Teams Director Advertising Relationship Specialty Start Date End Date Alexander Adams MD [address] [place] [address] PCP - General 04/06/12 07/26/23 documented as of this encounter
--- OUTSIDE RECORDS SUMMARY | 2024-02-15 22:04 | XMS_ITS | Encounter Summary ---
[place] [address] Care Team Providers Care Embroidery Supervisor Name Role Phone Alexander Adams MD Primary Care Provider [phone] Reason for Visit * Reason Onset Date Comments Medication Refill 05/08/2013 Encounter Details Date Type Department Care Team (Late st Contact Info) Description 05/08/2013 Refill [place] [address] Jaylin Salcido [facility] [address] [place] [address] Social History Tobacco Use Types Packs/Day Years [...] 10:00 AM EST Office Visit Cardiology at [address] [place] [phone] Ruben Hartman, LAURA [facility] [place] [address] 04/26/2024 10:00 AM EST Hospital Encounter Non-Invasive Cardiology Lab [place] [address] Arrived 09/24/2024 4:00 PM EDT Office Visit Cardiology at [address] [place] [address] Nathaniel Keita MD [facility] [place] [address] documented as of this encounter Visit Diagnoses Not on filedocumented in this encounter Care Teams Embroidery Supervisor Relationship Specialty Start Date End Date Alexander Adams MD [address] [place] [address] PCP - General 04/06/12 07/26/23 documented as of this encounter
--- OUTSIDE RECORDS SUMMARY | 2024-02-15 22:04 | XMS_ITS | Encounter Summary ---
[place] [address] Care Team Providers Care Cardiology Fellow Name Role Phone Alexander Adams MD Primary Care Provider [phone] Encounter Details Date Type Department Care Team (Late st Contact Info) Description 03/05/2013 Telephone [place] [phone] Stella Hernandez LPN Social History Tobacco Use [...] Telephone Encounter - Stella Hernandez LPN - 03/05/2013 3:28 PM EST C-peptide,FBG and last office note faxed to [employer]. Confirmation on fax received. documented in this encounter Plan of Treatment Upcoming Encounters Date Type Department Care Team (Late st Contact Info) Description 02/29/2024 10:00 AM EST Office Visit Cardiology at [address] [address] Ruben Hartman PA [facility] [place] [address] 04/26/2024 10:00 AM EST Hospital Encounter Non-Invasive Cardiology Lab [facility] [place] [address] Arrived 09/24/2024 4:00 PM EDT Office Visit Cardiology at [address] [phone] Nathaniel Keita MD [facility] [place] [address] documented as of this encounter Visit Diagnoses Not on filedocumented in this encounter Care Teams Cardiology Fellow Relationship Specialty Start Date End Date Alexander Adams MD [address] [place] [address] PCP - General 04/06/12 07/26/23 documented as of this encounter
--- OUTSIDE RECORDS SUMMARY | 2024-02-15 22:04 | XMS_ITS | Encounter Summary ---
[place] [address] Care Team Providers Care Laborer Steel Handling Name Role Phone Alexander Adams MD Primary Care Provider [phone] Encounter Details Date Type Department Care Team (Late Contact Info) Description 06/15/2013 Telephone [place] [phone] Stella Hernandez LPN Social History Tobacco Use [...] encounter Miscellaneous Notes * Telephone Encounter - tSella Hernandez LPN - 06/15/2013 9:51 AM EDT Message on endo nurse line from patient that due to insurance change she will need to get insulin pump supplies form new supplier. [facility] will be faxing a request to our office documented in this encounter Plan of Treatment Upcoming Encounters Date Type Department Care Team (Late Contact Info) Description 02/29/2024 10:00 AM EST Office Visit Cardiology at [address] [phone] Ruben Hartman PA [facility] [place] [address] 04/26/2024 10:00 AM EST Hospital Encounter [place] [address] Arrived 09/24/2024 4:00 PM EDT Office Visit Cardiology at [address] [phone] Nathaniel Keita MD [facility] [place] [address] documented as of this encounter Visit Diagnoses Not on filedocumented in this encounter Care Teams Laborer Steel Handling Relationship Specialty Start Date End Date Alexander Adams MD [address] [place] [address] PCP - General 04/06/12 07/26/23 documented as of this encounter
--- OUTSIDE RECORDS SUMMARY | 2024-02-15 22:04 | XMS_ITS | Encounter Summary ---
[place] [address] Care Team Providers Care Top Precipitator Operator Name Role Phone Alexander Adams MD Primary Care Provider [phone] Reason for Visit * Reason Onset Date Comments Medication Refill 01/04/2014 Encounter Details Date Type Department Care Team (Late st Contact Info) Description 01/04/2014 Refill [place] [address] Melisa Randhawa MD [facility] [place] [address] DM (diabetes mellitus) (Primary Dx) Social History Tobacco Use Types Packs/Day Years [...] AM EST Office Visit Cardiology at [address] [phone] Ruben Hartman, LAURA [facility] [address] 04/26/2024 10:00 AM EST Hospital Encounter Non-Invasive Cardiology Lab [facility] [place] [address] Arrived 09/24/2024 4:00 PM EDT Office Visit Cardiology at [address] [place] [phone] Nathaniel Keita MD [facility] [place] [address] documented as of this encounter Visit Diagnoses Diagnosis DM (diabetes mellitus)- Primary Type II or unspecified type diabetes mellitus without mention of complication, not stated as uncontrolled documented in this encounter Care Teams Top Precipitator Operator Relationship Specialty Start Date End Date Alexander Adams MD [address] [place] [address] PCP - General 04/06/12 07/26/23 documented as of this encounter
--- OUTSIDE RECORDS SUMMARY | 2024-02-15 22:04 | XMS_ITS | Encounter Summary ---
[place] [address] Care Team Providers Care Solution Maker Name Role Phone Alexander Adams MD Primary Care Provider Encounter Details Date Type Department Care Team (Late st Contact Info) Description 06/08/2013 External Results Cardiology at [address] [phone] Neva Pugh MD [address] [place] [id number] Social History Tobacco Use Types Packs/Day Years [...] AM EST Office Visit Cardiology at [address] [place] [address] Ruben Hartman, PA [facility] [place] [address] 04/26/2024 10:00 AM EST Hospital Encounter Non-Invasive Cardiology Lab [facility] [place] [address] Arrived 09/24/2024 4:00 PM EDT Office Visit Cardiology at [address] [place] [phone] Nathaniel Keita MD [facility] [place] [address] documented as of this encounter Procedures Procedure Name Priority Date/Time Associated Diagnosis Comments EP DEVICE SCAN Routine 04/17/2013 documented in this encounter Results * Scan Doc: EP Device (04/17/2013) Anatomical Region Laterality Modality Other Neva Pugh MD MEDIA MGR SCAN EXT O RDR/RSLT documented in this encounter Visit Diagnoses Not on filedocumented in this encounter Care Teams Solution Maker Relationship Specialty Start Date End Date Alexander Adams MD [address] [place] [address] PCP - General 04/06/12 07/26/23 documented as of this encounter
--- OUTSIDE RECORDS SUMMARY | 2024-02-15 22:04 | XMS_ITS | Encounter Summary ---
[place] [address] Care Team Providers Care Pelletizer Operator Name Role Phone Alexander Adams MD Primary Care Provider [phone] Reason for Visit * Reason Comments Cardiomyopathy ICD interrogation Encounter Details Date Type Department Care Team (Late st Contact Info) Description 01/11/2013 9:15 AM EDT Follow-Up Cardiology at [address] [address] Thaddeus Cespedes RN Sangha, Rajbir S, MD [facility] [place] [address] CHD, s/p arrest and 2v CABG in 2009, preserved LV function (Primary Dx) Discharge Disposition: Home Social History Tobacco Use [...] as of this encounter Progress Notes * Thaddeus Cespedes RN - 01/11/2013 9:58 AM EDT ICD Clinic Follow-up Ms. Cole is a 67 years old female who presents to the clinic today for ICD interrogation. The ICDwas implanted 07/01/2009 due to Secondary prevention s/p ventricular fibrillation cardiac arrest. She voices no device-related complaints today. Pt enrolled in SLS study. PCP: ALEXANDER ADAMS MD Fishing Rod Mechanic: Milind Beasley MD Device and lead information Final Parameters: Ventricular lead: Medtronic Sprint Quattro Model# 6947-58 cm Serial #[id number] Bipolar, steroid-tipped, active-fixation IS-1, DF-1 lead Access: Left axillary vein Location: Right ventricular apex R wave, ICD: 8.0 mV Pacing threshold, ICD: 1.0 V at 0.5 ms Impedance, ICD: 532 ohms HVB Impedance 33 ohms SVC Impedance 39 ohms Pace the diaphragm at 10 V: No Pulse generator: Medtronic John II VR Model# [id number] Serial# [id number] Single-chamber ICD Location: Subcutaneous Parameters: VF detection rate: >200 bpm VF therapy: ATP during charging, 30J, 35J x 5 FVT detection rate: via VF 250 bpm FVT therapy: Burst(1), 30J, 35J x 4 VT detection rate:182 bpm VT therapy: Burst(3), 20J, 35J x 4 Enhancement: Wavelet, VT Monitor Bradycardia pacing: VVI 40 Follow-up Battery status: 3.10 V HYDRAULIC PRESS OPERATOR: 2.63 V Charge time: 8.6 sec 01/01/2013 SIC: 0 Pace/Sensing Leads -Right Ventricular: R wave: 2.4 mV (stable) Threshold: 1 V at 0.4 ms Impedance: 703 ohms EGM quality: clean -Shocking leads: V Defib impedance: 45 ohms SVC (HVX) impedance: 58 ohms EGM quality: clean Lead impedance values all stable Therapy Administered: None Events: 21 Monitored VT episodes, available EGMs show a tachy morphology similar to that of the underlying rhythm, abrupt onset and spontaneous termination, VCL ~360 to 300 ms, could represent VT or SVT, similar to events detected before Pacing percentages: VS 100% Histogram is well distributed. Underlying rhythm: SR 85 bpm Incision site: well healed L chest good skin thickness Impression: Appropriate ICD function. Changes made this session: None Plan: 3 mos Care Link. 6 mos device clinic Addendum I have personally reviewed the device interrogation as performed by Thaddeus Cespedes RN Single chamber ICD 100% V sensed Reasonable rate histogram Non sustained tachy episodes seen - might be SVT versus non sustained VT Summary 1) Normal device function 2) Routine follow up as planned VIMAL MEYERS MD documented in this encounter Plan of Treatment Upcoming Encounters Date Type Department Care Team (Late st Contact Info) Description 02/29/2024 10:00 AM EST Office Visit Cardiology at [address] [phone] Ruben Hartman PA [facility] [place] [address] 04/26/2024 10:00 AM EST Hospital Encounter Non-Invasive [place] [address] Arrived 09/24/2024 4:00 PM EDT Office Visit Cardiology at [address] [phone] Nathaniel Keita MD [facility] [place] [address] documented as of this encounter Visit Diagnoses Diagnosis CHD, s/p arrest and 2v CABG in 2009, preserved LV function- Primary Coronary atherosclerosis of unspecified type of vessel, [place] or graft documented in this encounter Care Teams Pelletizer Operator Relationship Specialty Start Date End Date Alexander Adams MD [address] [place] [address] PCP - General 04/06/12 07/26/23 documented as of this encounter
--- OUTSIDE RECORDS SUMMARY | 2024-02-15 22:04 | XMS_ITS | Encounter Summary ---
Author [place] [address] Care Team Providers Care Video Games Mechanic Name Role Phone Alexander Adams MD Primary Care Provider [phone] Reason for Visit * Reason Comments Diabetes Encounter Details Date Type Department Care Team (Late st Contact Info) Description 11/13/2013 9:30 AM EDT Office [place] [address] Jaylin Salcido [facility] [place] [address] DM (diabetes mellitus) (Primary Dx); Type I (juvenile type) diabetes mellitus with [...] Sign Reading Time Taken Comments Blood Pressure 136/61 11/13/2013 10:31 AM EDT Pulse 86 11/13/2013 10:31 AM EDT Temperature - - Respiratory Rate - - Oxygen Saturation - - Inhaled Oxygen Concentration - - Weight 86.2 kg (190 lb) 11/13/2013 10:31 AM EDT Height - - Body Mass Index 28.89 08/08/2013 10:28 AM EDT documented in this encounter Patient Instructions * Patient Instructions* Jaylin Salcido APRN - 11/13/2013 10:53 AM EDT Have advanced directives scanned into medical record documented in this encounter Progress Notes * Jaylin Salcido APRN - 11/13/2013 11:36 AM EDT DATE OF VISIT: 11/13/2013 REASON FOR VISIT: Follow up type 1 DM in good control. Also, hypertension in good control, hyperlipidemia in good control. BRIEF HISTORY: Presents and discusses how much better she feels since she had spinal fusion done at [email or web address]. She states she is walking every morning and has very Little back pain now. DIABETES REGIMEN: MiniMed insulin pump. Basal rates 12 a.m. 1.1, 4 a.m. 1.15, 7 a.m. 1.3, 12 noon 1.2, 5 p.m. 1.2, and 10 p.m. 1.1. Total basal 28.55. [id number] 1 to 15. Correction factor 25. Target glucose 95 to 125. COMPLICATIONS: Retinopathy treated in the past, neuropathy, and Charcot foot changes. PAST MEDICAL HISTORY: Significant for bypass, had ICD placed, history of cardiac arrest. REVIEW OF SYSTEMS: Depression and Mood: At home is her supportive . He walks with her in the mornings. 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 Eyes: No recent vision changes. No recent headaches or chest pain or shortness of breath. No recent GI symptoms. Appetite is good. Sleep pattern is better since surgery. Extremities: Has no feeling in her feet. Has podiatry care with Dr. King in [place]. DATE OF DIAGNOSIS OF DIABETES: 1962. PHYSICAL EXAMINATION: Appearance: She appears in excellent health. Weight 190 pounds. She has lost 2 pounds since previous office visit. Blood pressure 136/61. Eyes: No retinopathy with panophthalmoscope. Neck: No thyromegaly or lymphadenopathy. Heart: Regular rate and rhythm. No murmurs. Lungs are clear to auscultation. Feet: Second left toe tip amputation, right first toe tip amputation, Charcot changes. Pulses are present. Neuro: No sensation to 10 g of pressure. Does have sensation on her lower legs. Ambulates with the assistance of a cane to prevent falls. Hemoglobin A1c is 7.8%, previous was 8.8%. No hypoglycemia recently. IMPRESSION AND PLAN: Diabetes mellitus type 1 with complications. No change in regimen today. The patient is happy to be able to be walking daily. She is considering purchasing a treadmill for the winter months. She does have a stationary bike. Blood pressure is at goal. Requested refill of Diovan, which was done. Return to office in February. Will check hemoglobin A1c, CMP, HDL, VLDL, and microalbumin. This was a 35-minute office visit with 34 minutes spent counseling [id number] with the patient in the management of glucose levels, reviewing blood pressure targets and cholesterol targets, reviewing prevention and treatment of hypoglycemia. She does not need temporary basal during her walk at this time because she usually walks after Breakfast. Recent Results (from the past 72 hour(s)) HEMOGLOBIN A1C Component Value Range Hemoglobin A1C 7.8 (*) <=5.6 % Est Avg Gluc 177 documented in this encounter Plan of Treatment Upcoming Encounters Date Type Department Care Team (Late st Contact Info) Description 02/29/2024 10:00 AM EST Office Visit Cardiology at [address] [place] [address] Ruben Hartman, LAURA [facility] [place] [address] 04/26/2024 10:00 AM EST Hospital Encounter Non-Invasive Cardiology Lab [facility] [place] [address] Arrived 09/24/2024 4:00 PM EDT Office Visit Cardiology at [address] [place] [address] Nathaniel Keita MD [facility] [place] [address] documented as of this encounter Results * Microalbumin, urine, random (02/14/2014 9:44 AM EST) Creatinine, Urine 196 mg/dL CE RNER MILLENNIUM Albumin, Urine 20.3 mg/L CERNE R MILLENNIUM Albumin / Creatinin Ratio, Urine 10 mcg/mg Cr CERNER MILLENNIUM Comment: Reference Range* Random collection (mcg/mg creatinine) Normal ?<30 Microalbuminuria ?? 30 - 300 Clinical Albuminuria ?? >300 *[place] Diabetes Association. Diabetic Nephropathy. Diabetes Care 1997;(Suppl 1):S24-S27 Exercise within 24 hour, infection, fever, CHF, marked hyperglycemia, and marked hypertension may elevate urinary albumin excretion over baseline values. Urine specimen (specimen) 02/14/2014 9:44 AM EST 02/14/2014 9:51 AM EST Narrative Resulting Agency Comment Spec In Lab Chris Chatman MD URINE ORDERABLES [facility] * LDL Cholesterol, Direct (02/14/2014 9:38 AM EST) LDL Cholesterol, Direct 89 <=99 mg/dL [facility] Comment: The National Cholesterol Education Program (NCEP) has set the following guidelines for LDL Cholesterol: Reference range: ?? Optimal: ?<100 mg/dL ?? Near Optimal/Above Optimal: ?? 100-129 mg/dL ?? Borderline high: ?130-159 mg/dL ?? High: ? 160-189 mg/dL ?? Very high: ?>jt=461 mg/dL REJI 2001: 285(19):9846-3463 Blood specimen (specimen) 02/14/2014 9:38 AM EST 02/14/2014 9:51 AM EST Narrative Resulting Agency Comment Spec In Lab Chris Chatman MD CHEMISTRY ORDERABLES Performing Organization Address [facility] de Phone Number THOMPSON JACKSONIUM * (ABNORMAL) HDL/Cholesterol Profile (02/14/2014 9:38 AM EST) Cholesterol, Total 146 <=199 mg/dL CERNER MILLENNIUM Comment: Recommendations of the NCEP Adult Treatment Panel for the following risk cutoff thresholds for the [place] population: Desirable: <200 mg/dL Borderline High: 200-239 mg/dL High: > or = 240 mg/dL HDL Cholesterol 39(L) >=40 mg/dL CER NER MILLENNIUM Comment: Reference range: ??Low HDL: ?? < 40 mg/dL ??Normal: ?40-60 mg/dL ??Desirable: > 60 mg/dL REJI 2001; 285(19):6768-9409 Cholesterol/HDL Ratio 3.7 ratio CERNER MILLENNIUM Comment: A Cholesterol to HDL ratio below 4:1 is desirable. ??Studies suggest that increased CAD risk occurs at ratios above 5 for females and above 6 for men. ? [place] Heart Association ??(http://www.americanheart.org) ? Aurelia Int Med, 1994; 121:641 ? AM J Med, 1998; 105(1A):48S Blood specimen (specimen) 02/14/2014 9:38 AM EST 02/14/2014 9:51 AM EST Narrative Resulting Agency Comment Spec In Lab Chris Chatman MD CHEMISTRY ORDERABLES Performing Organization Address [facility] Co de Phone Number THOMPSON ISLASENNIUM * (ABNORMAL) Hemoglobin A1c (02/14/2014 9:38 AM EST) Hemoglobin A1c 8.6(H) <=5.6 % JOSE Connor [facility] Comment: Reference Range: 4.3 - 5.6% 5.7 [...] 36: Suppl. 1, S67-74 Estimated Average Glucose 200 mg/dL [facility]OM[facility]ON [facility] Comment: eAG equivalents for HbA1c percentages: HbA1c(%) ?eAG(mg/dL) 6.0 ?126 6.5 ?140 7.0 ?154 7.5 ?169 8.0 ?183 8.5 ?197 9.0 ?212 9.5 ?226 10.0 ? 240 Limitations: The eAG calculation has not been validated on women, individuals below 18 years old and above 70 years old, and individuals with hemoglobinopathies. Additional resources are available on the ADA website: [email or web address].com/DHMCadacalc Alfred JEFFRIES, Risa J, Sergio R, et al. ??Translating the A1C assay into estimated average glucose values. ??Diabetes Care 2008:31(8):2947-8568. Blood specimen (specimen) 02/14/2014 9:38 AM EST 02/14/2014 9:51 AM EST Narrative Resulting Agency Comment Spec In Lab Chris Chatman MD CHEMISTRY ORDERABLES THOMPSON MILLENNIUM * (ABNORMAL) Comprehensive metabolic panel (non-fasting) (02/14/2014 9:38 AM EST) [facility] Glucose 183 60 - 199 mg/dL CERNER MILLENNIUM Comment:Diabetes: >=200 mg/d L plus symptoms Blood Urea Nitrogen 22(H) 8 - 18 mg/dL CERNER MILLENNIUM Creatinine 1.05 0.70 - 1.20 mg/dL CERNER MILLENNIUM Comment: Please note that the pediatric reference intervals supplied above were not validated at [facility]. Results from pediatric patients should be interpreted [...] the following links into your internet browser. [email or web address] Blood specimen (specimen) 02/14/2014 9:38 AM EST 02/14/2014 9:51 AM EST Narrative Resulting Agency Comment Spec In Lab Chris Chatman MD CHEMISTRY ORDERABLES [facility] documented in this encounter Visit Diagnoses Diagnosis DM (diabetes mellitus)- Primary Type II or unspecified type diabetes mellitus without mention of complication, not stated as uncontrolled Type I (juvenile type) diabetes mellitus with neurological manifestations, not stated as uncontrolled(250.61) Type I (juvenile type) diabetes mellitus with neurological manifestations, not stated as uncontrolled documented in this encounter Care Teams Video Games Mechanic Relationship Specialty Start Date End Date Alexander Adams MD [address] [place] [address] PCP - General 04/06/12 07/26/23 documented as of this encounter
--- OUTSIDE RECORDS SUMMARY | 2024-02-15 22:04 | XMS_ITS | Encounter Summary ---
[place] [address] Care Team Providers Care Property Analyst Name Role Phone Alexander Adams MD Primary Care Provider [phone] Encounter Details Date Type Department Care Team (Late st Contact Info) Description 08/20/2013 Notes [place] [phone] Kusum Lutz RN Social History Tobacco Use Types Packs/Day [...] as of this encounter Progress Notes * Kusum Lutz RN - 08/20/2013 1:[address] [facility] Diabetes form Insulin Pump & Pump Supplies Replacement Form/Certificate of Medical Necessity completed and given to Dr. Nichols for signature, along with requested office notes/A1c of 08/08/13 and 05/08/13. To be faxed back to [facility] at [phone]. documented in this encounter Plan of Treatment Upcoming Encounters Date Type Department Care Team (Late st Contact Info) Description 02/29/2024 10:00 AM EST Office Visit Cardiology at [address] [phone] Ruben Hartman PA [facility] [place] [address] 04/26/2024 10:00 AM EST Hospital Encounter Non-Invasive Cardiology Lab [facility] [place] [address] Arrived 09/24/2024 4:00 PM EDT Office Visit Cardiology at [address] [phone] Nathaniel Keita MD [facility] [place] [address] documented as of this encounter Visit Diagnoses Not on filedocumented in this encounter Care Teams Property Analyst Relationship Specialty Start Date End Date Alexander Adams MD [address] [place] [address] PCP - General 04/06/12 07/26/23 documented as of this encounter
--- OUTSIDE RECORDS SUMMARY | 2024-02-15 22:04 | XMS_ITS | Encounter Summary ---
[place] [address] Care Team Providers Care Blocker Metal Base Name Role Phone Alexander Adams MD Primary Care Provider [phone] Reason for Visit * Reason Comments Medication Refill Encounter Details Date Type Department Care Team (Late st Contact Info) Description 11/04/2012 Refill [place] [phone] Jaylin Salcido [facility] [place] [address] DM (diabetes mellitus) (Primary Dx) Social History [...] 10:00 AM EST Office Visit Cardiology at [address] [place] [address] Ruben Hartman PA [facility] [address] 04/26/2024 10:00 AM EST Hospital Encounter Non-Invasive Cardiology Lab [facility] [place] [address] Arrived 09/24/2024 4:00 PM EDT Office Visit Cardiology at [address] [place] [address] Nathaniel Keita MD [facility] [address] documented as of this encounter Visit Diagnoses Diagnosis DM (diabetes mellitus)- Primary Type II or unspecified type diabetes mellitus without mention of complication, not stated as uncontrolled documented in this encounter Care Teams Blocker Metal Base Relationship Specialty Start Date End Date Alexander Adams MD [address] [place] [address] PCP - General 04/06/12 07/26/23 documented as of this encounter
--- OUTSIDE RECORDS SUMMARY | 2024-02-15 22:04 | XMS_ITS | Encounter Summary ---
[place] [address] Care Team Providers Care Permit Review Assistant Name Role Phone Alexander Adams MD Primary Care Provider [phone] Reason for Visit * Reason Onset Date Comments Medication Refill 03/13/2013 Encounter Details Date Type Department Care Team (Late st Contact Info) Description 03/13/2013 Refill [place] [address] Jaylin Salcido [facility] [place] [address] Social History Tobacco Use Types Packs/Day Years [...] 10:00 AM EST Office Visit Cardiology at [address] [place] [phone] Ruben Hartman, LAURA [facility] [place] [address] 04/26/2024 10:00 AM EST Hospital Encounter Non-Invasive Cardiology Lab [facility] [place] [address] Arrived 09/24/2024 4:00 PM EDT Office Visit Cardiology at [address] [place] [address] Nathaniel Keita MD [facility] [place] [address] documented as of this encounter Visit Diagnoses Not on filedocumented in this encounter Care Teams Permit Review Assistant Relationship Specialty Start Date End Date Alexander Adams MD [address] [place] [address] PCP - General 04/06/12 07/26/23 documented as of this encounter
--- OUTSIDE RECORDS SUMMARY | 2024-02-15 22:04 | XMS_ITS | Encounter Summary ---
[place] [address] Care Team Providers Care Tools Administrator Name Role Phone Alexander Adams MD Primary Care Provider [phone] Encounter Details Date Type Department Care Team (Late st Contact Info) Description 06/06/2013 Notes [place] [phone] Ruthy Moody LPN Social History Tobacco Use Types Packs/Day [...] as of this encounter Progress Notes * Ruthy Moody LPN - 06/06/2013 1:46 PM EST Faxed requested documents to Kyra at [employer] [facility], last BP reading in 2012, office visit note dated before 10/01/12 with HTN as diagnosis (faxed documented in this encounter Plan of Treatment Upcoming Encounters Date Type Department Care Team (Late st Contact Info) Description 02/29/2024 10:00 AM EST Office Visit Cardiology at [address] [place] [address] Ruben Hartman, LAURA [facility] [place] [address] 04/26/2024 10:00 AM EST Hospital Encounter Non-[place] [address] Arrived 09/24/2024 4:00 PM EDT Office Visit Cardiology at [address] [phone] Nathaniel Keita MD [facility] [place] [address] documented as of this encounter Visit Diagnoses Not on filedocumented in this encounter Care Teams Tools Administrator Relationship Specialty Start Date End Date Alexander Adams MD [address] [place] [address] PCP - General 04/06/12 07/26/23 documented as of this encounter
--- OUTSIDE RECORDS SUMMARY | 2024-02-15 22:04 | XMS_ITS | Encounter Summary ---
[place] [address] Care Team Providers Care Surface Mount Technology Operator Name Role Phone Alexander Adams MD Primary Care Provider [phone] Reason for Visit * Reason Onset Date Comments Medication Refill 06/15/2013 Encounter Details Date Type Department Care Team (Late st Contact Info) Description 06/15/2013 [place] [address] Chris Chatman MD [facility] [place] [address] Social History Tobacco Use Types Packs/Day Years [...] AM EST Office Visit Cardiology at [address] [phone] Ruben Hartman, LAURA [facility] [address] 04/26/2024 10:00 AM EST Hospital Encounter Non-Invasive Cardiology Lab [facility] [address] [place] [address] Arrived 09/24/2024 4:00 PM EDT Office Visit Cardiology at [address] [place] [address] Nathaniel Keita MD [facility] [place] [address] documented as of this encounter Visit Diagnoses Not on filedocumented in this encounter Care Teams Surface Mount Technology Operator Relationship Specialty Start Date End Date Alexander Adams MD [address] [place] [address] PCP - General 04/06/12 07/26/23 documented as of this encounter
--- OUTSIDE RECORDS SUMMARY | 2024-02-15 22:04 | XMS_ITS | Encounter Summary ---
Author Organization [facility] [place] [address] Care Team Providers Care Nail Sticker Name Role Phone Alexander Adams MD Primary Care Provider [phone] Encounter Details Date Type Department Care Team (Latest Contact Info) Description 11/13/2013 9:23 AM EDT - 11/13/2013 11:59 PM EDT Hospital [place] [address] Elisha Nichols MD [facility] 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 90 tablet 3 11/13/2013 01/04/2014 lansoprazole (PREVACID) 30 mg capsule Take 30 mg by mouth daily. 07/27/2023 Diabetic Supplies, [facility] Fax form to [facility] Diabetes INSULIN PUMP SUPPLIES 100 each 12 06/15/2013 01/23/2014 insulin glargine (LANTUS) vial injection Inject 28 Units subcutaneously daily. PRN for pump failure 10 mL prn 05/08/2013 09/08/2015 insulin lispro (HUMALOG) injection Inject 50-60 Units subcutaneously daily. 60 mL 3 05/08/2013 12/20/2013 metoprolol succinate (TOPROL-XL) 25 mg 24 hr tabletIndications:Hy pertension Take 0.5 tablets by mouth daily. 45 tablet 3 05/08/2013 05/20/2014 Blood Sugar Diagnostic (ONE TOUCH ULTRA TEST) test strip Test BG 5-6 times daily. Diagnosis code 250.63 600 each 3 03/12/2013 03/31/2017 Blood-Glucose Meter (ONE TOUCH ULTRA 2) monitoring kit [address] [facility].(Non-Drug; Combo Route) route as needed for Other. Test BG 5-6 times daily. Diagnosis code 250.63 1 each 0 03/12/2013 03/31/2017 Lancets (ONE TOUCH ULTRASOFT LANCETS) Misc [address] [facility].(Non-Drug; Combo Route) route 6 times daily. Diag code 250.63 600 each 3 03/12/2013 03/31/2017 cholecalciferol, Vitamin D3, (CHOLECALCIFEROL, VITAMIN D3,) 2,000 unit Capsule Take 2,000 Units by mouth daily. 12/13/2018 traMADol-acetaminoph en (ULTRACET) 37.5-325 mg per tablet Take 1 tablet by mouth 2 times daily as needed for Pain. 60 tablet 11 01/11/2013 11/20/2013 atorvastatin (LIPITOR) 20 mg tablet Take 40 mg by mouth daily. 11/28/2014 Insulin Dinosaur, Disposable, (BD INSULIN PEN NEEDLE UF SHORT) 31 X 08/[address] [facility].(Non-Drug; Combo Route) route. 03/31/2017 SUBCUTANEOUS INSULIN PUMP (INSULIN PUMP [id number] [facility]) by [facility].(Non-Drug; Combo Route) route. 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 5.6% 5.7 ? [...] Mellitus, Diabetes Care 2013; 36: Suppl. 1, M27-51 Estimated Average Glucose 177 mg/dL [facility] Comment: eAG equivalents for HbA1c percentages: HbA1c(%) ?eAG(mg/dL) 6.0 ?126 6.5 ?140 7.0 ?154 7.5 ?169 8.0 ?183 8.5 ?197 9.0 ?212 9.5 ?226 10.0 ? 240 Limitations: The eAG calculation has not been validated on women, individuals below 18 years old and above 70 years old, and individuals with hemoglobinopathies. Additional resources are available on the ADA website: http://Eyepic.com/DHMCadacalc Alfred JEFFRIES, Risa J, Sergio R, et al. ??Translating the A1C assay into estimated average glucose values. ??Diabetes Care 2008:31(8):2187-2818. 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
--- OUTSIDE RECORDS SUMMARY | 2024-02-15 22:04 | XMS_ITS | Encounter Summary ---
Author Organization [facility] Vanessa [place]ias [place] [address] Care Team Providers Care Area Development Consultant Name Role Phone Alexander Adams MD Primary Care Provider [phone] Encounter Details Date Type Department Care Team (Late st Contact Info) Description 09/17/2013 Interpretation Only Radiology [address] [place] [address] [place] [phone] Unknown None Social History Tobacco Use Types [...] AM EST Office Visit Cardiology at [address] [address] Ruben Hartman, LAURA [facility] [place] [place] [address] 04/26/2024 10:00 AM EST Hospital Encounter Non-Invasive Cardiology Lab [facility] [place] [address] Arrived 09/24/2024 4:00 PM EDT Office Visit Cardiology at [address] [place] [phone] Nathaniel Keita MD [facility] [place] [address] documented as of this encounter Procedures Procedure Name Priority Date/Time Associated Diagnosis Comments XR FLUORO NO RAD <1HR - RADIOLOGY USE Routine 09/17/2013 6:34 AM EDT documented in this encounter Results * XR Fluoro <1Hr - Radiology Use (09/17/2013 6:34 AM EDT) Anatomical Region Laterality Modality N/A Radiographic Bushra ging 09/17/2013 6:34 AM EDT Narrative 09/17/2013 6:34 AM EDT [facility] Historical Result Principal Blow Pit Helper: ??DEEPTI ??JEANMARIE C-ARM: HISTORY: ??Left L4-5 posterior lumbar interbody fusion,screw fusion, and laminotomy. COMPARISON: ??CT lumbar spine, May 04, 2013. FINDINGS: Fluoroscopy was provided for Dr Malin. ??No Radiologist was present for the procedure. ??A total of 7 image intensifier films were archived to PACS, demonstrating interval steps for L4-5 posterior fusion with interposition graft. ??Minimal anterolisthesis of L3 on L4 is again noted. ?? Laminotomy changes are suggested. Total fluoro time equals 41.5 seconds. ??The estimated cumulative dose is 3.4 rad. IMPRESSION: Postsurgical changes. ??Please refer to separate procedure report. Deepti Hoover MD Melanie [id number] CC: Procedure Note Unknown - 10/02/2018 APD Historical Result Principal Blow Pit Helper: DEEPTI HOOVER C-ARM: HISTORY: Left L4-5 posterior lumbar interbody fusion,screw fusion, andlaminotomy. COMPARISON: CT lumbar spine, May 04, 2013. FINDINGS: Fluoroscopy was provided for Dr Malin. No Radiologist was presentfor the procedure. A total of 7 image intensifier films were archived to PACS, demonstratinginterval steps for L4-5 posterior fusion with interposition graft. Minimal anterolisthesis of L3 on L4 isagain noted. Laminotomy changes are suggested. Total fluoro time equals 41.5 seconds. The estimated cumulative dose is3.4 rad. IMPRESSION: Postsurgical changes. Please refer to separate procedurereport. Deepti Hoover MD BALAJI/radha [id number] CC: Unknown IMG FLUORO ORDERABLE S documented in this encounter Visit Diagnoses Not on filedocumented in this encounter Care Teams Area Development Consultant Relationship Specialty Start Date End Date Alexander Adams MD [address] [place] [address] PCP - General 04/06/12 07/26/23 documented as of this encounter
--- OUTSIDE RECORDS SUMMARY | 2024-02-15 22:04 | XMS_ITS | Encounter Summary ---
[place] [address] Care Team Providers Care Log Preparer Name Role Phone Alexander Adams MD Primary Care Provider [phone] Encounter Details Date Type Department Care Team (Late st Contact Info) Description 06/18/2013 Telephone [place] [phone] Stella Hernandez LPN Social History Tobacco Use [...] Telephone Encounter - Stella Hernandez LPN - 06/18/2013 10:30 AM EDT Rx request received from [facility] Called patient [facility] will supply pump supplies. [facility] will be supplier for testing supplies for now. documented in this encounter Plan of Treatment Upcoming Encounters Date Type Department Care Team (Late st Contact Info) Description 02/29/2024 10:00 AM EST Office Visit Cardiology at [address] [phone] Ruben Hartman PA [facility] [place] [address] 04/26/2024 10:00 AM EST Hospital Encounter Non-[place] [address] Arrived 09/24/2024 4:00 PM EDT Office Visit Cardiology at [address] [phone] Nathaniel Keita MD [facility] [place] [address] documented as of this encounter Visit Diagnoses Not on filedocumented in this encounter Care Teams Log Preparer Relationship Specialty Start Date End Date Alexander Adams MD [address] [place] [address] PCP - General 04/06/12 07/26/23 documented as of this encounter
--- OUTSIDE RECORDS SUMMARY | 2024-02-15 22:04 | XMS_ITS | Encounter Summary ---
[place] [address] Care Team Providers Care Marketing Education Teacher Name Role Phone Alexander Adams MD Primary Care Provider [phone] Reason for Visit * Reason Comments PDR 14 months FU PDR OU post PRP OU. Encounter Details Date Type Department Care Team (Late st Contact Info) Description 03/21/2013 3:30 PM EST [place] [address] Melissa Cleary MD PDR (proliferative diabetic retinopathy) (Primary Dx) Discharge Disposition: Home Social History [...] Progress Notes * Melissa Cleary MD - 03/21/2013 5:20 PM EST Stable PDR OU, with full PRP and complete involution. Plan: RTC 1 yr. documented in this encounter Plan of Treatment Upcoming Encounters Date Type Department Care Team (Late st Contact Info) Description 02/29/2024 10:00 AM EST Office Visit Cardiology at [address] [address] Ruben Hartman PA [facility] [place] [address] 04/26/2024 10:00 AM EST Hospital Encounter Non-Invasive Cardiology Lab [facility] [place] [address] Arrived 09/24/2024 4:00 PM EDT Office Visit Cardiology at [address] [address] Nathaniel Keita MD [facility] [place] [address] documented as of this encounter Visit Diagnoses Diagnosis PDR (proliferative diabetic retinopathy)- Primary Type II or unspecified type diabetes mellitus with ophthalmic manifestations, not stated as uncontrolled documented in this encounter Care Teams Marketing Education Teacher Relationship Specialty Start Date End Date Alexander Adams MD [address] [place] [address] PCP - General 04/06/12 07/26/23 documented as of this encounter
--- OUTSIDE RECORDS SUMMARY | 2024-02-15 22:04 | XMS_ITS | Encounter Summary ---
[place] [address] Care Team Providers Care Cell Lead Name Role Phone Alexander Adams MD Primary Care Provider [phone] Reason for Visit * Reason Comments Diabetes Encounter Details Date Type Department Care Team (Late st Contact Info) Description 10/09/2012 10:00 AM EDT Office [place] [address] Jaylin Salcido [facility] [address] Type I (juvenile type) diabetes mellitus with neurological manifestations, uncontrolled (Primary Dx); Hyperlipidemia Discharge Disposition: Home Social History Tobacco [...] Sign Reading Time Taken Comments Blood Pressure 160/73 10/09/2012 11:02 AM EDT Pulse 81 10/09/2012 11:02 AM EDT Temperature - - Respiratory Rate - - Oxygen Saturation - - Inhaled Oxygen Concentration - - Weight 87.8 kg (193 lb 9.6 oz) 10/09/2012 11:02 AM EDT with black boot on Height - - Body Mass Index 29.44 01/06/2012 8:58 AM EDT documented in this encounter Patient Instructions * Patient Instructions* Jaylin Salcido APRN - 10/09/2012 11:27 AM EDT Consider changing target glucose to 95-115 or 120 Scooter store soon documented in this encounter Progress Notes * Jaylin Salcido APRN - 10/09/2012 11:34 AM EDT DATE OF VISIT: 10/09/2012 REASON FOR VISIT: 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 BRIEF HISTORY: Presents and states she was on antibiotics at the end of August for a sinus infection and then she was on antibiotics recently for a right first toe infection. Has planned partial right first toe amputation for October [address] King in [place], [place]. DIABETES REGIMEN: NovoLog vial, MiniMed insulin pump 722. Basal Rates: 12 a.m., 1.2; 4 a.m., 1.15; 6 a.m., 1.2; 12 noon, 1.15; 5 p.m., 1.2; 10 p.m., 1.1. Total basal 28.25. Zaqfzpy-db-tmjw 1:10. Correction factor 25. Target glucose 95 to 125. DATE OF DIAGNOSIS OF DIABETES: 1962. SBGM: Six times a day to prevent severe hypo- or hyper-glycemia. DX CODE: 250.63. Prevention strategies are up to date. She does take a statin and an ARB. REVIEW OF SYSTEMS: Depression and Mood: Overall is doing okay. Discusses how lousy she felt when she had the sinus infection. Eyes: No recent vision changes. Has some floaters at times. GI Symptoms: Takes Nexium for GERD. Sleep Pattern: Has never slept well. Extremities: Ambulating with use of crutches today and wearing a walking soft shoe splint on right. PHYSICAL EXAMINATION: Appearance: She appears in very good health. She is overweight, 193 pounds. She has lost 3 pounds since April. Blood pressure 160/73. Eyes: No retinopathy by green light exam. Neck: No thyromegaly or lymphadenopathy. Heart: Regular rate and rhythm. No murmurs. Lungs are clear to auscultation. She declines a foot exam since she is followed closely by Dr. King and has appointment for distal partial amputation of first right toe scheduled for next week. 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 LABORATORY DATA: Hemoglobin A1c 8.9% today, previous was 7.8%. The patient states she is not surprised that it is elevated since she has been taking antibiotics for so long and did not feel well while treating the sinus infection. Consider lowering target blood glucose from 125 to 120 or even 115. The patient states she will think about that. 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 She states she will contact the scooter store to start the process. This was a 30-minute office visit with 29 minutes spent counseling [id number] with the patient in the management of glucose levels, encouraging her to consider lowering target glucose from 125 to 120 and encouraging her to use a scooter to prevent further skin changes on her feet in the future. Return to office in 90 days per Medicare. Will check hemoglobin A1c and other labs that she is due for. Recent Results (from the past 72 hour(s)) HEMOGLOBIN A1C Component Value Range Hemoglobin A1C 8.9 (*) 4.3 - 6.1 % Est Avg Gluc 209 documented in this encounter Plan of Treatment Upcoming Encounters Date Type Department Care Team (Late st Contact Info) Description 02/29/2024 10:00 AM EST Office Visit Cardiology at [address] [place] [address] Ruben Hartman, LAURA [facility] [place] [address] 04/26/2024 10:00 AM EST Hospital Encounter Non-Invasive Cardiology Lab [facility] [place] [address] Arrived 09/24/2024 4:00 PM EDT Office Visit Cardiology at [address] [place] [phone] Nathaniel Keita MD [facility] [place] [address] documented as of this encounter Results * HDL/Cholesterol Profile (01/11/2013 9:48 AM EDT) [facility] Signature Cholesterol, Total 161 <=199 mg/dL [facility] Comment: Recommendations of the NCEP Adult Treatment Panel for the following risk cutoff thresholds for the [place] population: Desirable: <200 mg/dL Borderline High: 200-239 mg/dL High: > or = 240 mg/dL HDL Cholesterol 50 >=40 mg/dL [facility]AKIYA OLIVIA [facility] Comment: Reference range: ??Low HDL: ?? < 40 mg/dL ??Normal: ?40-60 mg/dL ??Desirable: > 60 mg/dL REJI 2001; 285(19):1365-2747 Cholesterol/HDL Ratio 3.2 ratio [facility] Comment: A Cholesterol to HDL ratio below 4:1 is desirable. ??Studies suggest that increased CAD risk occurs at ratios above 5 for females and above 6 for men. ? [place] Heart Association ??(http://www.americanheart.org) ? Aurelia Int Med, 1994; 121:641 ? AM J Med, 1998; 105(1A):48S Blood specimen (specimen) 01/11/2013 9:48 AM EDT 01/11/2013 9:57 AM EDT Narrative Resulting Agency Comment Spec In Lab Chris Chatman MD CHEMISTRY ORDERABLES [facility] * LDL Cholesterol, Direct (01/11/2013 9:48 AM EDT) LDL Cholesterol, Direct 98 <=99 mg/dL [facility] Comment: The National Cholesterol Education Program (NCEP) has set the following guidelines for LDL Cholesterol: Reference range: ?? Optimal: ?<100 mg/dL ?? Near Optimal/Above Optimal: ?? 100-129 mg/dL ?? Borderline high: ?130-159 mg/dL ?? High: ? 160-189 mg/dL ?? Very high: ?>vb=962 mg/dL REJI 2001: 285(27):0910-7717 Blood specimen (specimen) 01/11/2013 9:48 AM EDT 01/11/2013 9:57 AM EDT Narrative Resulting Agency Comment Spec In Lab Chris Chatman MD CHEMISTRY ORDERABLES [facility] * (ABNORMAL) Hemoglobin A1c (01/11/2013 9:48 AM EDT) [facility] Hemoglobin A1c 8.1(H) 4.3 - 6.1 % [facility] Comment: The [place] Diabetes Association (ADA) has stated that HbA1c [...] Diabetes Care 2013:36;suppl 1:S11-S66. Estimated Average Glucose 186 mg/dL [facility] Comment: eAG equivalents for HbA1c percentages: [...] into estimated average glucose values. ??Diabetes Care 2008:31(8):4271-3452. Blood specimen (specimen) 01/11/2013 9:48 AM EDT 01/11/2013 9:57 AM EDT Narrative Resulting Agency Comment Spec In Lab Chris Chatman MD CHEMISTRY ORDERABLES [facility] * (ABNORMAL) Comprehensive metabolic panel (non-fasting) (01/11/2013 9:48 AM EDT) Glucose 315(H) 60 - 199 mg/dL [facility] Comment:Diabetes: >=200 mg/d L plus symptoms Blood Urea Nitrogen 21(H) 8 - 18 mg/dL [facility] Creatinine 1.17 0.70 - 1.20 mg/dL [facility] Comment: Please note that the pediatric reference intervals supplied above were not validated at [facility] [place] [place]. Results from pediatric patients should be interpreted in conjunction to the patient's age, height and muscle mass. Sodium 136 135 - 145 mmol/L [facility]ILLENNIUM Potassium 4.5 3.5 - 5.0 mmol/L [facility] Comment: Please note: ??Patients with WBC >100,000 may have falsely elevated Potassium levels. ??For accurate Potassium quantification in these patients send serum separator tube (gold top) for subsequent determinations. ??Contact the Clinical Chemistry Laboratory if there are any questions. Chloride 99 98 - 107 mmol/L [facility] MILLENNIUM Carbon Dioxide 29 22 - 31 mmol/L [facility] MILLENNIUM Anion Gap 8 5 - 15 mmol/L [facility] MILLENNIUM Calcium 9.5 8.5 - 10.5 mg/dL [facility] MILLENNIUM Protein, Total 7.4 6.4 - 8.3 gm/dL [facility] MILLENNIUM Albumin 4.3 3.2 - 5.2 gm/dL [facility] MILLENNIUM Aspartate Aminotransferase 29 0 - 30 unit/L [facility] MILLENNIUM Alanine Aminotransferase 29 0 - 30 unit/L [facility] MILLENNIUM Alkaline Phosphatase 116(H) 40 - 104 unit/L [facility] MILLENNIUM Bilirubin, Total 0.4 0.2 - 1.3 mg/dL [facility] MILLENNIUM Bilirubin, Direct 0.1 0.0 - 0.3 mg/dL [facility] MILLENNIUM Est Glomerular Filtration Rate 46(L) >=60 [facility]ILLENNI[facility] Comment: This estimated GFR [...] the following links into your internet browser. http://www.nkdep.nih.gov/lab-evaluation.shtml http://www.kidney.org/professionals/ Blood specimen (specimen) 01/11/2013 9:48 AM EDT 01/11/2013 9:57 AM EDT Narrative Resulting Agency Comment Spec In Lab Chris Chatman MD CHEMISTRY ORDERABLES [facility] documented in this encounter Visit Diagnoses Diagnosis Type I (juvenile type) diabetes mellitus with neurological manifestations, uncontrolled(250.63)- Primary Type I (juvenile type) diabetes mellitus with neurological manifestations, uncontrolled Hyperlipidemia Other and unspecified hyperlipidemia documented in this encounter Care Teams Cell Lead Relationship Specialty Start Date End Date Alexander Adams MD [address] [place] [id number] PCP - General 04/06/12 07/26/23 documented as of this encounter
--- OUTSIDE RECORDS SUMMARY | 2024-02-15 22:04 | XMS_ITS | Encounter Summary ---
[place] [address] Care Team Providers Care Grip Wrapper Name Role Phone Alexander Adams MD Primary Care Provider [phone] Reason for Visit * Reason Onset Date Comments Medication Refill 02/22/2013 Encounter Details Date Type Department Care Team (Late st Contact Info) Description 02/22/2013 Refill [place] [address] Elisha Nichols MD [facility] [place] [address] Social History Tobacco Use Types Packs/Day Years [...] AM EST Office Visit Cardiology at [address] [place] [phone] Ruben Hartman PA [facility] [place] [address] 04/26/2024 10:00 AM EST Hospital Encounter Non-Invasive Cardiology Lab [facility] [place] [address] Arrived 09/24/2024 4:00 PM EDT Office Visit Cardiology at [address] [place] [address] Nathaniel Keita MD [facility] [place] [address] documented as of this encounter Visit Diagnoses Not on filedocumented in this encounter Care Teams Grip Wrapper Relationship Specialty Start Date End Date Alexander Adams MD [address] [place] [id number] PCP - General 04/06/12 07/26/23 documented as of this encounter
--- OUTSIDE RECORDS SUMMARY | 2024-02-15 22:04 | XMS_ITS | Encounter Summary ---
[place] [address] Care Team Providers Care Traffic Safety Administrator Name Role Phone Alexander Adams MD Primary Care Provider [phone] Reason for Visit * Reason Comments Diabetes Encounter Details Date Type Department Care Team (Late st Contact Info) Description 08/08/2013 9:30 AM EDT Office Visit [place] [address] Elisha Nichols MD [facility] [place] [address] Type 1 diabetes mellitus with diabetic nephropathy; [...] Sign Reading Time Taken Comments Blood Pressure 137/76 08/08/2013 10:28 AM EDT Pulse 78 08/08/2013 10:28 AM EDT Temperature - - Respiratory Rate - - Oxygen Saturation - - Inhaled Oxygen Concentration - - Weight 87.4 kg (192 lb 9.6 oz) 08/08/2013 10:28 AM EDT Height 172.7 cm (5' 8) 08/08/2013 10:28 AM EDT Body Mass Index 29.28 08/08/2013 10:28 AM EDT documented in this encounter Progress Notes * Elisha Nichols MD - 08/05/2013 8:08 AM EDT PRIMARY CARE PROVIDER: Alexander Adams M.D. [...] need x___ lifetime until ___/___/___ Last Hga1c 8.8, 08/15; 8.2, 05/18; 8.1, 01/14; 7.8%, 07/15; 7.9%, 04/16 Regimen: MiniMed 722 insulin pump, uses NovoLog. Basal rates 12 a.m. 1.15, 5 a.m. 1.15, 7:30 a.m. 1.20, 12 noon 1.20, 5 p.m. 1.30, and 10 p.m. 1.15. Total basal 28.85. Yyfzlhp-ss-ozbl 1:12. Correction factor 25. Target 95 to 125. Complications: dentist-01/14; eyes- IPDR 04/17 ; Cr-1.17, 01/14; ma-12, 05/18 ; neuropathy-Charcot feet ; CAD-CABG 2009; lipids- TChol 161, HDL- 50, LDL- 98, 01/14 DM health maintenance: beta beto-metoprolol 25 ; ASA 81 ; SLOANE/ARB-diovan 40 ; statin-simvastatin 20 ; flu shot-2012 ; pneomovax-had one with bad reaction ; smoking-no ; TSH-1.21, 05/18 Since her last visit, Ms. Cole has had a couple of upper respiratory infections, a urinary tract infection, worsening back pain, and is actually going to have back surgery done in mid September. With these illnesses and the pain, she has noticed blood sugars have been up a little bit in the morning. She has made some adjustments in her basal rate on her pump and sugars are coming down now. Mornings were running 130 to 160, now they are back down to about 120 to 140. Lunch and supper less than 120. Bedtime, she aims for about 140 to 150, if she is lower than that she will have a low blood sugar overnight. EXERCISE: She cannot do anything because of her back. Her diet, for breakfast bagel thin with factory cream cheese. For lunch usually a sandwich and an apple or an orange and for supper last night she had a small piece of steak, potatoes, and green beans and no snacks. Complication evaluation is up-to-date. Her proliferative retinopathy is involutional and stable. Renal function has been stable. She has dense neuropathy in her feet with significant Charcot changes, but no recent ulceration. She sees her lead cytogenetic technologist regularly. She has coronary disease. She had a bypass and an ICD placed, but recent EKG showed no evidence of any past heart injury and she is asymptomatic. No angina and doing well. Lipids are noted above. PAST MEDICAL HISTORY: Type 1 diabetes complicated [...] shoulder surgery, hysterectomy, endometriosis surgery, three breast lumpectomies. Current Outpatient Prescriptions Medication Sig Dispense Refill ??? lansoprazole (PREVACID) 30 mg capsule Take 30 mg by mouth daily. ??? Diabetic Supplies, Miscellan. [facility] [place] form to [facility] Diabetes INSULIN PUMP SUPPLIES 100 each 12 ??? insulin glargine (LANTUS) vial injection Inject 28 Units subcutaneously daily. PRN for pump failure 10 mL prn ??? insulin lispro (HUMALOG) injection Inject 50-60 Units subcutaneously daily. 60 mL 3 ??? metoprolol succinate (TOPROL-XL) 25 mg 24 [...] ULTRA 2) monitoring kit 1 each by [facility]Non- Drug; Combo Route) route as needed for Other. Test BG 5-6 times daily. Diagnosis code 250.63 1 each 0 ??? Lancets (ONE TOUCH ULTRASOFT LANCETS) [facility] 1 each by [facility]Non-Drug; Combo Route) route 6 timesdaily. Diag code 250.63 600 each 3 ??? Cholecalciferol, Vitamin D3, (VITAMIN D-3) 2,000 unit Cap Take 2,000 Units by mouth daily. ??? traMADol-acetaminophen (ULTRACET) 37.5-325 mg per tablet Take 1 tablet by mouth 2 times daily as needed for Pain. 60 tablet 11 ??? DIOVAN 40 mg tablet TAKE ONE TABLET BY MOUTH EVERY DAY 90 tablet 3 ??? atorvastatin (LIPITOR) 20 mg tablet Take 20 mg by mouth daily. ??? Insulin [place] [employer], Disposable, (BD INSULIN PEN NEEDLE UF SHORT) 31 X 5/16 Ndle by [facility].(Non-Drug; Combo Route) route. ??? SUBCUTANEOUS INSULIN PUMP (INSULIN PUMP QZ8859 [facility]) by [facility].(Non-Drug; Combo Route) route. ??? aspirin 81 mg chewable tablet Take 81 mg by mouth daily. ??? acetaminophen (TYLENOL) 325 mg tablet Take 650 mg by mouth every 4 hours as needed. ??? multivitamin (DAILY MULTIPLE) tablet ??? thiamine (VITAMIN B-1) 250 mg tablet 250 mg PO Once daily ??? Pyridoxine (VITAMIN B-6) 200 mg Tab 200 mg PO Once daily Allergies Allergen Reactions ??? Lisinopril Anaphylaxis ??? Amiodarone Other (See Comments) fatigue and dsypnea ??? Ibandronate Sodium multiple joint aches and edema ??? Adhesive Tape ??? Alendronate Sodium Other (See Comments) chest pain ??? Celecoxib Nausea And Vomiting Nausea/Vomiting ??? Codeine Phosphate Nausea And Vomiting ??? Ezetimibe Lipid Results Elevated with 40 MG dosage ??? Gabapentin Nausea And Vomiting ??? Kiwi Other (See Comments) SWELLING AND RASH ??? Propoxyphene N-Acetaminophen Nausea And Vomiting SOCIAL HISTORY: Nonsmoker and nondrinker. twice. Most recently for 23 years. Two children, 49 and 46. 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 REVIEW OF SYSTEMS: Complete review of systems, occasional dizziness, which she attributes to some of her medications. Lot of significant back pain and left hip pain. Occasional dysuria and urinary tract infections, but otherwise negative. PHYSICAL EXAMINATION: On physical exam, blood pressure is 137/76, pulse 78, weight 192, height 5 feet 8 inches. In general, she really looks well. Her skin is smooth, warm, and dry. No ulceration. Some hypertrophic toenail. Cardiovascular, 2+ pulses. No edema. On neurologic exam, marked decrease to light touch sensation up to the knees. Extremities: Her foot shows Charcot deformity. Psych: Mood and affect are appropriate. LABORATORY TESTS: Hemoglobin A1c 8.8%. IMPRESSION: 1. Diabetes. Blood pressure control has worsened since May, most likely explained by her upper respiratory tract and urinary tract infections and her pain. She has made some adjustments in her pump and blood sugars are coming down. PLAN: 1. Continue current insulin. 2. She will come and see Jaylin Salcido in three months. We will check hemoglobin A1c at that time. documented in this encounter Plan of Treatment Upcoming Encounters Date Type Department Care Team (Late st Contact Info) Description 02/29/2024 10:00 AM EST Office Visit Cardiology at [address] [place] [phone] Ruben Hartman PA [facility] [place] [address] 04/26/2024 10:00 AM EST Hospital Encounter Non-Invasive Cardiology Lab [facility] [place] [address] Arrived 09/24/2024 4:00 PM EDT Office Visit Cardiology at [address] [place] [phone] Nathaniel Keita MD [facility] [place] [address] documented as of this encounter Results * (ABNORMAL) Hemoglobin A1c (11/13/2013 9:26 AM EDT) [facility] Hemoglobin A1c 7.8(H) <=5.6 % [facility] TENA [...] Mellitus, Diabetes Care 2013; 36: Suppl. 1, Y57-12 Estimated Average Glucose 177 mg/dL [facility] Comment: eAG equivalents for HbA1c percentages: HbA1c(%) ?eAG(mg/dL) 6.0 ?126 6.5 ?140 7.0 ?154 7.5 ?169 8.0 ?183 8.5 ?197 9.0 ?212 9.5 ?226 10.0 ? 240 Limitations: The eAG calculation has not been validated on women, individuals below 18 years old and above 70 years old, and individuals with hemoglobinopathies. Additional resources are available on the ADA website: http://[employer].com/DHMCadacalc Alfred JEFFRIES, Risa J, Sergio R, et al. ??Translating the A1C assay into estimated average glucose values. ??Diabetes Care 2008:31(8):6646-0430. 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
--- OUTSIDE RECORDS SUMMARY | 2024-02-15 22:04 | XMS_ITS | Encounter Summary ---
[place] [address] Care Team Providers Care Marketing Planning Manager Name Role Phone Alexander Adams MD Primary Care Provider Encounter Details Date Type Department Care Team (Late st Contact Info) Description 12/19/2013 External Results Cardiology at [address] [phone] Alexander Adams MD [address] [place], [place] [id number] Social History Tobacco Use Types Packs/Day Years [...] AM EST Office Visit Cardiology at [address] [place] [address] Ruben Hartman, PA [facility] [place] [address] 04/26/2024 10:00 AM EST Hospital Encounter Non-Invasive Cardiology Lab [facility] [place] [address] Arrived 09/24/2024 4:00 PM EDT Office Visit Cardiology at [address] [place] [phone] Nathaniel Keita MD [facility] [place] [address] documented as of this encounter Procedures Procedure Name Priority Date/Time Associated Diagnosis Comments EP DEVICE SCAN Routine 12/18/2013 documented in this encounter Results * Scan Doc: EP Device (12/18/2013) Anatomical Region Laterality Modality Other Alexander Adams MD MEDIA MGR SCAN EXT O RDR/RSLT documented in this encounter Visit Diagnoses Not on filedocumented in this encounter Care Teams Marketing Planning Manager Relationship Specialty Start Date End Date Alexander Adams MD [address] [place] [address] PCP - General 04/06/12 07/26/23 documented as of this encounter
--- OUTSIDE RECORDS SUMMARY | 2024-02-15 22:04 | XMS_ITS | Encounter Summary ---
[place] [address] Care Team Providers Care Anesthesiologist Physician Name Role Phone Alexander Adams MD Primary Care Provider [phone] Reason for Visit * Reason Onset Date Comments Medication Refill 12/20/2013 Encounter Details Date Type Department Care Team (Late st Contact Info) Description 12/20/2013 Refill [place] [address] Jaylin Salcido [facility] [place] [address] Social History Tobacco Use Types Packs/Day Years [...] 10:00 AM EST Office Visit Cardiology at [address] [place] [phone] Ruben Hartman, LAURA [facility] [place] [address] 04/26/2024 10:00 AM EST Hospital Encounter Non-Invasive Cardiology Lab [facility] [place] [address] Arrived 09/24/2024 4:00 PM EDT Office Visit Cardiology at [address] [place] [address] Nathaniel Keita MD [facility] [place] [address] documented as of this encounter Visit Diagnoses Not on filedocumented in this encounter Care Teams Anesthesiologist Physician Relationship Specialty Start Date End Date Alexander Adams MD [address] [place] [address] PCP - General 04/06/12 07/26/23 documented as of this encounter
--- OUTSIDE RECORDS SUMMARY | 2024-02-15 22:04 | XMS_ITS | Encounter Summary ---
[place] [address] Care Team Providers Care Professor Of Geology Name Role Phone Alexander Adams MD Primary Care Provider [phone] Reason for Visit * Reason Comments Diabetes Encounter Details Date Type Department Care Team (Late st Contact Info) Description 07/06/2012 9:30 AM EDT Office [place] [address] Elisha Nichols MD [facility] [place] [address] Type I (juvenile type) diabetes mellitus with neurological manifestations, not stated as uncontrolled (Primary Dx); Type I (juvenile type) diabetes mellitus with ophthalmic manifestations, not stated as uncontrolled Discharge Disposition: [...] Sign Reading Time Taken Comments Blood Pressure 168/81 07/06/2012 10:23 AM EDT Pulse 87 07/06/2012 10:23 AM EDT Temperature - - Respiratory Rate - - Oxygen Saturation - - Inhaled Oxygen Concentration - - Weight 89.7 kg (197 lb 12.8 oz) 013 10:23 AM EDT Height - - Body Mass Index 30.08 01/06/2012 8:58 AM EDT documented in this encounter Patient Instructions * Patient Instructions* Elisha Nichols MD - 07/06/2012 10:36 AM EDT Recent Results (from the past 24 hour(s)) HEMOGLOBIN A1C Component Value Range Hemoglobin A1C 7.8 (*) 4.3 - 6.1 % Est Avg Gluc 177 HDL/CHOL PROFILE Component Value Range Chol, Total 187 <=199 mg/dL HDL 43 >=40 mg/dL Chol/HDL Ratio 4.3 LDL CHOLESTEROL, DIRECT Component Value Range LDL Chol Direct 114 (*) <=99 mg/dL COMPREHENSIVE METABOLIC PANEL (NON-FASTING) Component Value Range Glucose Lvl 295 (*) 60 - 199 mg/dL BUN 19 (*) 8 - 18 mg/dL Creatinine 1.16 0.70 - 1.20 mg/dL Sodium 136 135 - 145 mmol/L Potassium 4.1 3.5 - 5.0 mmol/L Chloride 97 (*) 98 - 107 mmol/L CO2 30 22 - 31 mmol/L Anion Gap 9 5 - 15 mmol/L Calcium 10.0 8.5 - 10.5 mg/dL Total Protein 7.2 6.4 - 8.3 gm/dL Albumin 4.1 3.2 - 5.2 gm/dL AST 27 0 - 30 unit/L ALT 23 0 - 30 unit/L Alk Phos 102 40 - 104 unit/L Total Bilirubin 0.4 0.2 - 1.3 mg/dL Bili, Direct 0.1 0.0 - 0.3 mg/dL Estimated GFR 47 (*) >=60 MICROALBUMIN, URINE, RANDOM Component Value Range U Creatinine 126 U Ran Malb Conc 10.0 U Ran Malb Calc 8 documented in this encounter Progress Notes * Elisha Nichols MD - 07/04/2012 5:31 PM EDT PRIMARY CARE PROVIDER: Alexander Adams M.D. CC: Here for f/u of type 1 DM Year of diagnosis: 1962 Regimen ____ oral agents only ____ basal insulin __x__ insulin/pump Diagnosis codes 250.03 _x__ Type 1 250.02 ____Type 2 Glucose test strip brand: accochek compact Number of Tests prescribed per day ___ 2 ___ 3 ___ 4 _x__ 5-8 ___>8 Prescriber: _ ELROY Chatman MD _LYNN Perdue _ Carlos Heart MD _ Fuazia Saha MD x_ José Nichols MD Justification for more than 3 tests a day ___x_ prevent severe hypoglycemia ____ prevent severe hyperglycemia ____ widely fluctuating blood sugars ____ overnight hypoglycemia Duration of need x___ lifetime until ___/___/___ Last Hga1c 7.8%, 07/15; 7.9%, 04/16 Regimen: MiniMed 722 insulin pump, uses NovoLog. Basal rates 12 a.m. 1.15, 4 a.m. 1.15, 6 a.m. 1.2, 12 noon 1.15, 5 p.m. 1.2, and 10 p.m. 1.1. Total basal 28.05. Cmvaqcf-mg-zplt 1:10. Correction factor 25. Target 95 to 125. Complications: dentist-01/13 ; eyes- PDR 01/13 ; Cr-1.16, 07/15 ; ma-8, 07/15 ; neuropathy-Charcot feet ; CAD-CABG 2011 ; lipids- TChol 187, HDL-43 , LDL-114, 07/15 DM health maintenance: beta beto-metoprolol 25 ; ASA 81 ; SLOANE/ARB-diovan 40 ; statin-mjynexwxqte42 ; flu shot-2011 ; pneomovax-had one with bad reaction ; smoking-no ; TSH-0.78, 11/13 Since her last visit, MsRobert Kelsey has been doing very well. Checks her blood sugars usually four to six times a day. Fastings are running 110 to 130, lunch and supper usually below 120, bedtime she likes it to be 140 or more, she will have a low overnight and she tried lowering the overnight basal rates then she was high in the morning, so she will just take a little snack if her blood sugars below 140 and then she does fine. DIET: For breakfast, usually small bagel with fat free strawberry cream cheese. For lunch, yesterday she had a chicken sandwich and a cutie. For supper, she had roast beef, potato, and peas, and evening snack another cutie. She is up-to-date with her complications and then feeling well. PAST MEDICAL HISTORY: Type 1 diabetes, coronary artery disease, CABG in 2010, hypertension, hyperlipidemia, GERD, and allergic rhinitis. PAST SURGICAL HISTORY: Had 22 surgeries left second toe-tip amputation, CABG in 2009, hysterectomy, endometriosis surgery, three breast lumpectomies, bilateral shoulder surgery, thumb surgery, left great toe fusion, couple of other toe surgeries. Current Outpatient Prescriptions on File Prior to Visit Medication Sig Dispense Refill ??? metoprolol succinate (TOPROL-XL) 25 mg 24 hr tablet Take 0.5 tablets by mouth daily. 90 tablet 3 ??? insulin aspart (NOVOLOG) 100 unit/mL vial injection Inject subcutaneously. 50 to 60 units daily 60 mL 5 ??? Diabetic Supplies, Miscellan. Misc by Misc.(Non-Drug; Combo Route) route. Insulin Pump Suppliesand Diabetes Testing Supplies. Pt. Tests BS 4x/day. 90 day supply. Manually faxed to [employer] @ . ??? simvastatin (ZOCOR) 20 mg tablet Take 1 tablet by mouth nightly. 90 tablet 3 ??? esomeprazole (NEXIUM) 40 mg capsule Take 1 capsule by mouth daily. 90 capsule 3 ??? traMADol-acetaminophen (ULTRACET) 37.5-325 mg per tablet Take 1 tablet by mouth 2 times daily as needed for Pain. 60 tablet PRN ??? insulin glargine (LANTUS) 100 unit/mL vial injection Inject 28 Units subcutaneously every evening. PRN for pump failure 10 mL prn ??? valsartan (DIOVAN) 40 mg tablet Take 1 tablet by mouth daily. 90 tablet 3 ??? Blood Sugar Diagnostic, Drum (ACCU-CHEK COMPACT TEST) Strp 6 strips by [facility].(Non-Drug; Combo Route) route 6 times daily. 4-6 times daily 6 Box 3 ??? Insulin Grace, Disposable, (BD INSULIN PEN NEEDLE UF SHORT) 31 X 5/16 Ndle by [facility].(Non-Drug; Combo Route) route. ??? SUBCUTANEOUS INSULIN PUMP (INSULIN PUMP AZ4342 [facility]) by [facility].(Non-Drug; Combo Route) route. ??? aspirin 81 mg chewable tablet Take 81 mg by mouth daily. ??? acetaminophen (TYLENOL) 325 mg tablet Take 650 mg by mouth every 4 hours as needed. ??? multivitamin (DAILY MULTIPLE) tablet ??? thiamine (VITAMIN B-1) 250 mg tablet 250 mg PO Once daily ??? Pyridoxine (VITAMIN B-6) 200 mg Tab 200 mg PO Once daily ??? DOCOSAHEXANOIC ACID/EPA (FISH OIL ORAL) ??? Cholecalciferol, Vitamin D3, (VITAMIN D) 1,000 unit Cap ??? glucagon, human recombinant, 1 mg injection as directed IM PRN Allergies Allergen Reactions ??? Lisinopril Anaphylaxis ??? 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 She is , nonsmoker, nondrinker. Review of systems is positive for a lot of back pain and diffuse arthralgias mostly in the morning. She is stiff when she gets up. PHYSICAL EXAMINATION: Initial blood pressure 116/81, this morning it was 118/54, pulse 87, weight 197 pounds, decreased 3 pounds. In general, she looks well. Her skin is smooth, warm, and dry. She has calluses on both feet on the great toe and thus over the fifth metatarsal head, and on her right foot on the fifth toe as well. No ulcerations. Cardiovascular: 1+ pulses, no edema. On neurologic exam, she has marked decreased to light touch sensation to the knees in the feet. Her gait is unsteady. Psych: Mood and affect are appropriate. LABORATORY TESTS: Hemoglobin A1c 7.8%; lipids, creatinine, microalbumin are noted above. IMPRESSION: 1. Diabetes, is under good control, but post breakfast blood sugar today was high at 295 and I expect Ms. Omer might spike blood sugars after eating and this could explain why her hemoglobin A1c is 7.8% despite good premeal blood sugars. She is going to start checking some postprandial blood sugars and if they are high she might try taking her bolus insulin 15 to 30 minutes before her meals to see if she can help smooth things out a little bit. 2. Hypertension, is under good control at home. 3. Hyperlipidemia, reasonable control. 4. Coronary artery disease, is stable, no recent angina. PLAN: 1. Adjust insulin as noted above. 2. Followup in three months with hemoglobin A1c in a quick draw lab. Results for LIANE OMER ( ) as of 07/10/2012 12:12 Ref. Range 07/06/2012 09:25 07/06/2012 09:36 Sodium Latest Range: 135-145 mmol/L 136 Potassium Latest Range: 3.5-5.0 mmol/L 4.1 Chloride Latest Range: 98-107 mmol/L 97 (L) CO2 Latest Range: 22-31 mmol/L 30 Anion Gap Latest Range: 5-15 mmol/L 9 BUN Latest Range: 8-18 mg/dL 19 (H) Creatinine Latest Range: 0.70-1.20 mg/dL 1.16 Estimated GFR Latest Range: >=60 47 (L) Glucose Lvl Latest Range: 60-199 mg/dL 295 (H) Calcium Latest Range: 8.5-10.5 mg/dL 10.0 Hemoglobin A1C Latest Range: 4.3-6.1 % 7.8 (H) Est Avg Gluc No range found 177 Total Protein Latest Range: 6.4-8.3 gm/dL 7.2 Albumin Latest Range: 3.2-5.2 gm/dL 4.1 Total Bilirubin Latest Range: 0.2-1.3 mg/dL 0.4 Bili, Direct Latest Range: 0.0-0.3 mg/dL 0.1 Alk Phos Latest Range: 40-104 unit/L 102 AST Latest Range: 0-30 unit/L 27 ALT Latest Range: 0-30 unit/L 23 25-OH Vit D Total Latest Range: 30-100 ng/mL 36 Chol, Total Latest Range: <=199 mg/dL 187 HDL Latest Range: >=40 mg/dL 43 Chol/HDL Ratio No range found 4.3 LDL Chol Direct Latest Range: <=99 mg/dL 114 (H) U Creatinine No range found 126 U Ran Malb Calc No range found 8 U Ran Malb Conc No range found 10.0 documented in this encounter Plan of Treatment Upcoming Encounters Date Type Department Care Team (Late st Contact Info) Description 02/29/2024 10:00 AM EST Office Visit Cardiology at [address] [address] Ruben Hartman, PA [facility] [address] 04/26/2024 10:00 AM EST Hospital Encounter Non-[place] [address] Arrived 09/24/2024 4:00 PM EDT Office Visit Cardiology at [address] [address] Nathaniel Keita MD [facility] [address] documented as of this encounter Results * (ABNORMAL) Hemoglobin A1c (10/09/2012 10:01 AM EDT) Hemoglobin A1c 8.9(H) 4.3 - 6.1 % [facility] Comment: The [place] Diabetes Association (ADA) has stated that HbA1c [...] Diabetes Care 2013:36;suppl 1:S11-S66. Estimated Average Glucose 209 mg/dL [facility] Comment: eAG equivalents for HbA1c percentages: [...] into estimated average glucose values. ??Diabetes Care 2008:31(8):1337-4936. Blood specimen (specimen) 10/09/2012 10:01 AM EDT 10/09/2012 10:09 AM EDT Narrative Resulting Agency Comment Spec In Lab Elisha Nichols MD CHEMISTRY ORDERAB LES [facility] documented in this encounter Visit Diagnoses Diagnosis Type I (juvenile type) diabetes mellitus with neurological manifestations, not stated as uncontrolled(250.61)- Primary Type I (juvenile type) diabetes mellitus with neurological manifestations, not stated as uncontrolled Type I (juvenile type) diabetes mellitus with ophthalmic manifestations, not stated as uncontrolled(250.51) Type I (juvenile type) diabetes mellitus with ophthalmic manifestations, not stated as uncontrolled documented in this encounter Care Teams Professor Of Geology Relationship Specialty Start Date End Date Alexander Adams MD [address] [place] [id number] PCP - General 04/06/12 07/26/23 documented as of this encounter
--- OUTSIDE RECORDS SUMMARY | 2024-02-15 22:04 | XMS_ITS | Encounter Summary ---
[place] [address] Care Team Providers Care Underwriting Account Representative Name Role Phone Alexander Adams MD Primary Care Provider [phone] Reason for Visit * Reason Onset Date Comments Medication Refill 03/12/2013 Encounter Details Date Type Department Care Team (Late st Contact Info) Description 03/12/2013 Refill [place] [address] Jaylin Salcido [facility] [place] [address] Social History Tobacco Use Types Packs/Day Years [...] 10:00 AM EST Office Visit Cardiology at [address] [place] [phone] Ruben Hartman, LAURA [facility] [place] [address] 04/26/2024 10:00 AM EST Hospital Encounter Non-Invasive Cardiology Lab [facility] [place] [address] Arrived 09/24/2024 4:00 PM EDT Office Visit Cardiology at [address] [place] [address] Nathaniel Keita MD [facility] [place] [address] documented as of this encounter Visit Diagnoses Not on filedocumented in this encounter Care Teams Underwriting Account Representative Relationship Specialty Start Date End Date Alexander Adams MD [address] [place] [id number] PCP - General 04/06/12 07/26/23 documented as of this encounter
--- OUTSIDE RECORDS SUMMARY | 2024-02-15 22:04 | XMS_ITS | Encounter Summary ---
Author [place] [address] Care Team Providers Care Purchasing Manager Name Role Phone Alexander Adams MD Primary Care Provider [phone] Encounter Details Date Type Department Care Team (Late st Contact Info) Description 01/11/2013 8:40 AM EDT Follow-Up Cardiology at [address] [phone] Milind Quezada MD [facility] [place] [address] CHD, s/p arrest and 2v CABG in 2009, preserved LV function (Primary Dx); Hypertension; Ventricular fibrillation- with ICD Discharge Disposition: Home Social History Tobacco Use [...] Sign Reading Time Taken Comments Blood Pressure 166/86 01/11/2013 8:45 AM EDT Pulse 90 01/11/2013 8:45 AM EDT Temperature - - Respiratory Rate - - Oxygen Saturation 99% 01/11/2013 8:45 AM EDT Inhaled Oxygen Concentration - - Weight 87.5 kg (193 lb) 01/11/2013 8:45 AM EDT Height 172.7 cm (5' 8) 01/11/2013 8:45 AM EDT Body Mass Index 29.35 01/11/2013 8:45 AM EDT documented in this encounter Progress Notes * Milind Quezada MD - 01/10/2013 8:51 PM EDT Images from the original note were not included. Milind Quezada MD, MS, [facility] [address] Cardiology Office Visit Patient Active Problem List Diagnosis Code ??? 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 Diabetes mellitus type 1 250.01 ??? GERD (gastroesophageal reflux disease) 530.81 ??? Hypertension 401.9 ??? Ventricular fibrillation- with ICD 427.41 History Ms. Cole is a patient of Dr. Alexander Adams, an director of clinical education in [place], [place]. Her cardiovascular history includes the following details... 06/2009: out of hospital cardiac VF arrest. cath >> 3vD and EDP 30 >> 2v CABG (Dr. Bonilla) and ICD implantation. 01/2012: Echo --- EF 60% with no wma's and no valve disease. Today, she is doing well now 3 years following out of hospital cardiac arrest and urgent bypass with defibrillator implantation. She's had no defibrillator shocks. She's had no angina. 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 She notices some orthostatic lightheadedness and her blood pressures at home are consistently in the 80/60 range when she is feeling lightheaded. Normally her blood pressures are 110-120 systolic at home. She feels she has office hypertension. She's been compliant with her medications. She's managed to lose some weight. Lipids were checked by Dr. Adams and revealed a total cholesterol of 152. Social History She is to [place] and lives in [place], [place]. 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 Family History Notable for diabetes, coronary disease, and strokes. Medications has a current medication list which includes the following prescription(s): cholecalciferol (vitamin d3), diovan, atorvastatin, accu-chek compact test, metoprolol succinate, insulin aspart, diabetic supplies, miscellan., esomeprazole, tramadol-acetaminophen, insulin glargine, blood sugar diagnostic, drum, insulin needles (disposable), subcutaneous insulin pump, aspirin, acetaminophen, daily multiple, glucagon (human recombinant), vitamin b-1, and vitamin b-6. Allergies Lisinopril; Amiodarone; Ibandronate sodium; Adhesive tape; Alendronate sodium; Celecoxib; Codeine phosphate; Ezetimibe; Gabapentin; Kiwi; and Propoxyphene n-acetaminophen Physical Exam VS: BP 166/86 Pulse 90 Ht 172.7 cm (5' 8) Wt 87.544 kg (193 lb) BMI 29.35 kg/m2 SpO2 99% General: She is a pleasant healthy appearing woman in no acute distress. She is here alone. Skin: Warm and dry. HEENT: No scleral icterus. Lungs: Clear. Heart: JVP not elevated. No hepatojugular reflux. No carotid bruits. Heart sounds regular without murmurs. Abd: Soft and nontender. Ext: No edema. Neuro: Good cognition. Psych: Appropriate affect Labs As noted above. Twelve-lead ECG is normal. Assessment/Plan 1. Coronary disease status post emergent 2 vessel bypass surgery--- doing very well. No angina. Sheis on an appropriate medical regimen. We'll make no changes 2. History of ventricular fibrillation with defibrillator--- stable. We'll get overdue ICD check today. 3. Labile hypertension--- given her relatively elevated blood pressure here in the office, I don't wish to decrease her antihypertensives. 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 Follow up: One year. MILIND QUEZADA MD 01/11/2013 CC: ALEXANDER ADAMS MD [address] / [facility] [address] documented in this encounter Plan of Treatment Upcoming Encounters Date Type Department Care Team (Late st Contact Info) Description 02/29/2024 10:00 AM EST Office Visit Cardiology at [address] [place] [phone] Ruben Hartman PA [facility] [place] [address] 04/26/2024 10:00 AM EST Hospital Encounter Non-Invasive Cardiology Lab [facility] [place] [address] Arrived 09/24/2024 4:00 PM EDT Office Visit Cardiology at [address] [place] [phone] Nathaniel Keita MD [facility] [place] [address] documented as of this encounter Procedures Procedure Name Priority Date/Time Associated Diagnosis Comments EKG 12-LEAD Routine 01/11/2013 8:54 AM EDT CHD, s/p arrest and 2v CABG in 2009, preserved LV function documented in this encounter Results * EKG 12 Lead (01/11/2013 8:54 AM EDT) Ventricular rate 80 BPM MUSE SYSTEM Atrial Rate 80 BPM MUSE SYSTEM P-R Interval 180 ms MUSE SYSTEM QRS Duration 80 ms MUSE SYSTEM Q-T Interval 362 ms MUSE SYSTEM QTC Calculated (Bezet) 417 ms MUSE SYSTEM Calculated P [place] 82 degrees MUSE SYSTEM Calculated R [place] 66 degrees MUSE SYSTEM Calculated T [place] 69 degrees MUSE SYSTEM INTERPRETATION Normal sinus rhythm Low voltage QRS Borderline ECG When compared with ECG of 24-MAR-2010 07:53, No significant change was found Confirmed by MD HUI, VANESSA ([id number]) on 01/11/2013 10:28:31 AM MUSE SYSTEM 01/11/2013 8:54 AM EDT 01/11/2013 10:28 AM EDT Milind Quezada MD ECG ORDERABLES [employer] [facility] documented in this encounter Visit Diagnoses Diagnosis CHD, s/p arrest and 2v CABG in 2009, preserved LV function- Primary Coronary atherosclerosis of unspecified type of vessel, sho[place] or graft Hypertension Unspecified essential hypertension Ventricular fibrillation- with ICD Ventricular fibrillation documented in this encounter Care Teams Purchasing Manager Relationship Specialty Start Date End Date Alexander Adams MD [address] [place] [address] PCP - General 04/06/12 07/26/23 documented as of this encounter
--- OUTSIDE RECORDS SUMMARY | 2024-02-15 22:04 | XMS_ITS | Encounter Summary ---
[place] [address] Care Team Providers Care Mig Tig Welder Name Role Phone Alexander Adams MD Primary Care Provider [phone] Encounter Details Date Type Department Care Team (Latest Contact Info) Description 09/14/2013 9:21 AM EDT - 09/14/2013 11:59 PM EDT Hospital Encounter Non[place] [id number] CLINIC, Bhavna Moura MD Heart disease, unspecified; Pre-op evaluation Discharge Disposition: Home Social History Tobacco Use [...] Sign Reading Time Taken Comments Blood Pressure 176/73 09/14/2013 10:27 AM EDT Pulse 84 09/14/2013 10:27 AM EDT Temperature - - Respiratory Rate - - Oxygen Saturation 99% 09/14/2013 10:27 AM EDT Inhaled Oxygen Concentration - - Weight 87 kg (191 lb 12.8 oz) 09/14/2013 10:27 A M EDT Height - - Body Mass Index 29.16 08/08/2013 10:28 AM EDT documented in this encounter Medications at Time of Discharge Medication Sig Dispensed Refills Start Date End Date glucagon, human recombinant, 1 mg injection Inject 1 mL into the muscle as needed. 1 each prn 05/08/2013 aspirin 81 mg chewable tablet Take 81 mg by mouth daily. Pyridoxine (VITAMIN B-6) 200 mg Tab 200 mg PO Once daily 03/24/2010 lansoprazole (PREVACID) 30 mg capsule Take 30 mg by mouth daily. 07/27/2023 Diabetic Supplies, [employer]. [facility] Fax form to [facility] Diabetes INSULIN PUMP SUPPLIES 100 [...] [facility] [place]Non-Drug; Combo Route) route as needed for Other. Test BG 5-6 times daily. Diagnosis code 250.63 1 each 0 03/12/2013 03/31/2017 Lancets (ONE TOUCH ULTRASOFT LANCETS) Misc 1 each by [facility].(Non-Drug; Combo Route) route 6 times daily. Diag code 250.63 600 each 3 03/12/2013 03/31/2017 cholecalciferol, Vitamin D3, (CHOLECALCIFEROL, VITAMIN D3,) 2,000 unit Capsule Take 2,000 Units by mouth daily. 12/13/2018 traMADol-acetaminoph en (ULTRACET) 37.5-325 mg per tablet Take 1 tablet by mouth 2 times daily as needed for Pain. 60 tablet 11 01/11/2013 11/20/2013 DIOVAN 40 mg tabletIndications:DM (diabetes mellitus) TAKE ONE TABLET BY MOUTH EVERY DAY 90 tablet 3 11/04/2012 11/13/2013 atorvastatin (LIPITOR) 20 mg tablet Take 40 mg by mouth daily. 11/28/2014 Insulin [place], Disposable, (BD INSULIN PEN NEEDLE UF SHORT) 31 X 08/17 Ndle by [facility].(Non-Drug; Combo Route) route. 03/31/2017 SUBCUTANEOUS INSULIN PUMP (INSULIN PUMP [id number] [facility]) by [facility].(Non-Drug; Combo Route) route. 03/31/2017 acetaminophen (TYLENOL) 325 [...] AM EST Office Visit Cardiology at [address] [address] Ruben Hartman, LAURA [facility] [place] [address] 04/26/2024 10:00 AM EST Hospital Encounter Non-[place] [address] Arrived 09/24/2024 4:00 PM EDT Office Visit Cardiology at [address] [address] Nathaniel Keita MD [facility] [place] [address] documented as of this encounter Procedures Procedure Name Priority Date/Time Associated Diagnosis Comments ECHOCARDIOGRAM PHARMACOLOGICAL STRESS TEST (DSE) Routine 09/14/2013 10:47 AM EDT Heart disease, unspecified Pre-op evaluation documented in this encounter Results * Echo pharm stress test (DSE) (09/14/2013 10:47 AM EDT) EF 65 HEARTLAB SYSTEM Anatomical Region Laterality Modality Other 09/14/2013 Narrative 09/14/2013 11:37 AM EDT Procedure: ? Stress Echocardiogram Patient: ? KAN Tyler ? (Age): 1945(67) Med Rec#: ?[id number] ? Sex: ?F ? [place] [place] Ht / Wt: ??172(cm)/87(kg) Pt. Loc: ? Echo Lab ? BSA: ?2 Study Date: ?09/14/2013 ? Pt. Type: Outpatient Tape: ? Referring: Bhavna Malin Referring: BHAVNA MALIN B Regional Economist: Gifty Fleming Nurse: Esvin Messer RN Diagnosis:CPT Code(s): ??Color Doppler (06301), ??ECG Interpretation (46310), ??Definity (48859UJ), ??Stress Echo (42724), ??Spectral Doppler (48165), Indication(s): ??Pre-op cardiovascular evaluation Medication(s): ?? Rhythm: Stage ?HR ?BP Rest ? 88 ?176/73 ?? Low dose ? 90 ?207/93 ?? Peak ? 134 ? 182/64 ?? Recovery ? 84 ?181/77 ?? SUMMARY: 1. REST: Left ventricular chamber size, wall thickness, global and segmental systolic function are within normal limits. Ejection fraction is estimated to be 65%. Right ventricular chamber size, wall thickness, and systolic function are within normal limits. Other echo and stress findings as noted in report. 2. STRESS: The patient received incremental doses of Dobutamine to a peak of 20 mcg/kg/min, achieving a peak heart rate of 134 bpm (max pred.), and peak BP of 207/93 mmHg. ??With stress he was asymptomatic, hemodynamically stable, had no arrhythmias and developed no significant ST-TW changes. With stress the apical cap became akinetic. All other segments became appropriately hyperdynamic. 3. IMPRESSION: There was a very small area of apical ischemia at this diagnostic level of stress. FINDINGS: Rest Left Ventricle ?Left ventricular chamber size, wall thickness, global and segmental systolic function are within normal limits. Ejection fraction is estimated to be 65%. Left Atrium ?The left atrium is probably normal in size. Right Ventricle ?Right ventricular chamber size, wall thickness, and systolic function are within normal limits. ?A pacemaker wire is visualized in the right ventricle. Right Atrium ?The right atrium is probably normal in size. ?A pacemaker wire is visualized in the right atrium. Aortic Valve ?The aortic valve is tricuspid. ?The aortic valve leaflets are mildly thickened. ?There is no evidence of aortic valve stenosis. ?There is no evidence of aortic regurgitation. Mitral Valve ?The mitral valve appears normal in structure and function. ?There is trace mitral regurgitation present. Tricuspid Valve ?The tricuspid valve appears normal in structure and function. ?There is trace tricuspid regurgitation present. Pericardium ?The pericardium appears normal and there is no evidence of a pericardial effusion. Aorta ?The ascending aorta is normal in size. Stress ?EKG: normal sinus rhythm. ?The patient's oxygen saturation was 98-99% throughout test ?The patient is taking a beta beto. ?The patient is taking a lipid lowering agent. ?The patient is taking aspirin. Misc ?Other echo and stress findings as noted in report. ?Definity contrast (one 1.5 ml vial)was used to enhance endocardial definition. Excess contrast was discarded. ?Stress echo, limited spectral Doppler, color Doppler and ECG interpretation performed. FINDINGS: Low dose Stress ?EKG: normal sinus rhythm. FINDINGS: Peak Left Ventricle ?Global left ventricular systolic function appears hyperdynamic. Stress ?Maximum heart rate achieved was 134, which is 88% of the maximum(152 beats/min). ?The target heart rate was achieved. ?The peak dose of Dobutamine infused was 20 ug/kg/min. ?The patient was administered 3 mg of Metoprolol during recovery. ?The patient performed hand squeezes to accelerate heart rate. ?The patient did not express feelings of chest discomfort. ?The blood pressure response was hypertensive. ?There were no arrhythmias. ?There were no significant ST segment changes. ?This was a positive echocardiographic stress test. ?EKG: sinus tachycardia. Wall Motion: Segment Name ?Rest ?Peak ? Base-Anteroseptal ?? Normal ?Normal ? Base-Anterior ? Normal ?Normal ? Base-Anterolateral ??Normal ?Normal ? Base-Posterolateral Normal ?Normal ? Base-Inferior ? Normal ?Normal ? Base-Inferoseptal ?? Normal ?Normal ? Mid-Anteroseptal ?Normal ?Normal ? Mid-Anterior ?Normal ?Normal ? Mid-Anterolateral ?? Normal ?Normal ? Mid-Posterolateral ??Normal ?Normal ? Mid-Inferior ?Normal ?Normal ? Mid-Inferoseptal ?Normal ?Normal ? Alto-Septal ? Normal ?Normal ? Alto-Anterior ? Normal ?Normal ? Alto-Lateral ?Normal ?Normal ? Alto-Inferior ? Normal ?Normal ? Alto-Tip ?Normal ?Akinetic ? Chambers ?Value ?Units (Range) ? LV EF Est ? 65 ? % (55 to 80) ? Asc Ao ?3 ?cm (2 to 3.5) ? Mitral Valve ?Value ?Units (Range) ? E peak ?1.08 ? m/sec ? E/A ratio ? 1 ?ratio ? MVDT ?225 ?msec ? E1 ?0.03 ? m/sec ? E/E1 ?36 ? ratio ? Tricuspid/Pulmonic Valves ?Value ?Units (Range) ? TR peak margo ? 2.7 ?m/sec ? This report has been electronically signed by: Carter Mota MD ? 09/14/2013 11:22:11 Images reviewed and interpretation verified [facility] Cardiac Ultrasound Laboratory Procedure Note Carter Mota MD - 09/14/2013 Procedure: Stress Echocardiogram Patient: KAN MATHIS(Age): 1945(67) Med Rec#: [id number] Sex: F [place] [facility] Ht / Wt: 172(cm)/87(kg) Pt. Loc: Echo Lab BSA: 2 Study Date: 09/14/2013 Pt. Type: Outpatient Tape: Referring: Bhavna Malin Referring: BHAVNA MALIN B Regional Economist: Gifty Fleming Nurse: Esvin Messer RN Diagnosis:CPT Code(s): Color Doppler (77989), ECG Interpretation (26336), Definity ([id number]), Stress Echo (60944), Spectral Doppler (47085), Indication(s): Pre-op cardiovascular evaluation Medication(s): Rhythm: Stage HR BP Rest 88 176/73 Low dose 90 207/93 Peak 134 182/64 Recovery 84 181/77 SUMMARY: 1. REST: Left ventricular chamber size, wall thickness, global and segmental systolic function are within normal limits. Ejection fraction is estimated to be 65%. Right ventricular chamber size, wall thickness, and systolic function are within normal limits. Other echo and stress findings as noted in report. 2. STRESS: The patient received incremental doses of Dobutamine to a peak of 20 mcg/kg/min, achieving a peak heart rate of 134 bpm (max pred.), and peak BP of 207/93 mmHg. With stress he was asymptomatic, hemodynamically stable, had no arrhythmias and developed no significant ST-TW changes. With stress the apical cap became akinetic. All other segments became appropriately hyperdynamic. 3. IMPRESSION: There was a very small area of apical ischemia at this diagnostic level of stress. FINDINGS: Rest Left Ventricle Left ventricular chamber size, wall thickness, global and segmental systolic function are within normal limits. Ejection fraction is estimated to be 65%. Left Atrium The left atrium is probably normal in size. Right Ventricle Right ventricular chamber size, wall thickness, and systolic function are within normal limits. A pacemaker wire is visualized in the right ventricle. Right Atrium The right atrium is probably normal in size. A pacemaker wire is visualized in the right atrium. Aortic Valve The aortic valve is tricuspid. The aortic valve leaflets are mildly thickened. There is no evidence of aortic valve stenosis. There is no evidence of aortic regurgitation. Mitral Valve The mitral valve appears normal in structure and function. There is trace mitral regurgitation present. Tricuspid Valve The tricuspid valve appears normal in structure and function. There is trace tricuspid regurgitation present. Pericardium The pericardium appears normal and there is no evidence of a pericardial effusion. Aorta The ascending aorta is normal in size. Stress EKG: normal sinus rhythm. The patient's oxygen saturation was 98-99% throughout test The patient is taking a beta beto. The patient is taking a lipid lowering agent. The patient is taking aspirin. [facility] Other echo and stress findings as noted in report. Definity contrast (one 1.5 ml vial)was used to enhance endocardial definition. Excess contrast was discarded. Stress echo, limited spectral Doppler, color Doppler and ECG interpretation performed. FINDINGS: Low dose Stress EKG: normal sinus rhythm. FINDINGS: Peak Left Ventricle Global left ventricular systolic function appears hyperdynamic. Stress Maximum heart rate achieved was 134, which is 88% of the maximum(152 beats/min). The target heart rate was achieved. The peak dose of Dobutamine infused was 20 ug/kg/min. The patient was administered 3 mg of Metoprolol during recovery. The patient performed hand squeezes to accelerate heart rate. The patient did not express feelings of chest discomfort. The blood pressure response was hypertensive. There were no arrhythmias. There were no significant ST segment changes. This was a positive echocardiographic stress test. EKG: sinus tachycardia. Wall Motion: Segment Name Rest Peak Base-Anteroseptal Normal Normal Base-Anterior Normal Normal Base-Anterolateral Normal Normal Base-Posterolateral Normal Normal Base-Inferior Normal Normal Base-Inferoseptal Normal Normal Mid-Anteroseptal Normal Normal Mid-Anterior Normal Normal Mid-Anterolateral Normal Normal Mid-Posterolateral Normal Normal Mid-Inferior Normal Normal Mid-Inferoseptal Normal Normal Alto-Septal Normal Normal Alto-Anterior Normal Normal Alto-Lateral Normal Normal Alto-Inferior Normal Normal Alto-Tip Normal Akinetic Chambers Value Units (Range) LV EF Est 65 % (55 to 80) Asc Ao 3 cm (2 to 3.5) Mitral Valve Value Units (Range) E peak 1.08 m/sec E/A ratio 1 ratio MVDT 225 msec E1 0.03 m/sec E/E1 36 ratio Tricuspid/Pulmonic Valves Value Units (Range) TR peak margo 2.7 m/sec This report has been electronically signed by: Carter Mota MD 09/14/2013 11:22:11 Images reviewed and interpretation verified [facility] Cardiac Ultrasound Laboratory Bhavna Malin MD ECHO ORDERABLES documented in this encounter Visit Diagnoses Diagnosis Heart disease, unspecified Pre-op evaluation Preoperative examination, unspecified documented in this encounter Administered Medications Inactive Administered Medications - up to 3 most recent administrations Medication Order MAR Action Action Date Dose Rate Site DOBUTamine 500 mg in sodium chloride 0.9% 250 mL (ECHO LAB) 20 mcg/kg/min ? 87 kg (rounded to 52.2 mL/hr), Intravenous, ONCE, 1 dose, On Tue09/14/13 at 1045, Echo Lab (Intra-Procedure) Given 09/14/2013 10:45 AM EDT 1.74 mg/min 52.2 mL/hr metoprolol (LOPRESSOR) injection 3 mg 3 mg, Intravenous, ONCE, 1 dose, On Tue09/14/13 at 1045, Echo Lab (Intra-Procedure), Routine Given 09/14/2013 10:45 AM EDT 3 mg perflutren lipid microspheres (DEFINITY) injection 0.7 mL 0.7 mL (0.675 mL), Intravenous, ONCE PRN, 1 dose, Starting on Tue09/14/13 at 1048, Until Tue09/14/13 at 1015, Other, for enhancement of sub-optimal echo images, Echo Lab (Intra-Procedure), Routine Given 09/14/2013 10:15 AM EDT 0.7 mLs documented in this encounter Care Teams Mig Tig Welder Relationship Specialty Start Date End Date Alexander Adams MD [address] [place] [address] PCP - General 04/06/12 07/26/23 documented as of this encounter
--- OUTSIDE RECORDS SUMMARY | 2024-02-15 22:04 | XMS_ITS | Encounter Summary ---
Author Organization [facility] [place] [address] Care Team Providers Care Inspector Finishing Name Role Phone Alexander Adams MD Primary Care Provider [phone] Encounter Details Date Type Department Care Team (Latest Contact Info) Description 10/09/2012 9:52 AM EDT - 10/09/2012 11:59 PM EDT [place] [address] Elisha Nichols MD [facility] [place] [address] Type I (juvenile type) diabetes mellitus with [...] Tab 200 mg PO Once daily 03/24/2010 atorvastatin (LIPITOR) 20 mg tablet Take 40 mg by mouth daily. 11/28/2014 ACCU-CHEK COMPACT TEST Strp USE ONE STRIP 4-6 TIMES DAILY 500 each 4 08/02/2012 05/08/2013 metoprolol succinate (TOPROL-XL) 25 mg 24 hr tabletIndications:H ypertension Take 0.5 tablets by mouth daily. 90 tablet 3 06/19/2012 05/08/2013 insulin aspart (NOVOLOG) 100 unit/mL vial injection Inject subcutaneously. 50 to 60 units daily 60 mL 5 01/20/2012 03/12/2013 Diabetic Supplies, [employer]. Misc by [facility]Non-Drug; Combo Route) route. Insulin Pump Supplies and Diabetes Testing Supplies. Pt. Tests BS 4x/day. 90 day supply. Manually faxed to [employer] @[phone]. 12/13/2011 02/22/2013 esomeprazole (NEXIUM) 40 mg capsule Take 1 [...] (ACCU-CHEK COMPACT TEST) Strp 6 strips by [facility].(Non-Drug; Combo Route) route 6 times daily. 4-6 times daily 6 Box 3 03/15/2011 05/08/2013 Insulin [place], Disposable, (BD INSULIN PEN NEEDLE UF SHORT) 31 X 08/17 Ndle by [facility]Non-Drug; Combo Route) route. 03/31/2017 SUBCUTANEOUS INSULIN PUMP (INSULIN PUMP [id number] [facility]) by [facility]Non-Drug; Combo Route) route. 03/31/2017 acetaminophen (TYLENOL) 325 [...] 10:00 AM EST Office Visit Cardiology at [address] [address] Ruben Hartman, PA [facility] [place] [address] 04/26/2024 10:00 AM EST Hospital Encounter [place] [address] Arrived 09/24/2024 4:00 PM EDT Office Visit Cardiology at [address] [address] Nathaniel Keita MD [facility] [place] [address] documented as of this encounter Procedures Procedure Name Priority Date/Time Associated Diagnosis Comments HEMOGLOBIN A1C STAT 10/09/2012 10:01 AM EDT 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 Estimated Average Glucose 209 mg/dL [facility] Comment: eAG equivalents for HbA1c percentages: HbA1c(%) [...] into estimated average glucose values. ??Diabetes Care 2008:31(8):5888-9976. 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
--- OUTSIDE RECORDS SUMMARY | 2024-02-15 22:04 | XMS_ITS | Encounter Summary ---
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 [address] [facility] [address] [place] [phone] Referral ID Status Reason Start Date Expiration Date Visits Requested Visits Authorized [id number] Complete-Ref Provider Notified Consult, Test & Treat 3 07/10/2013 1 1 Reason for Visit * Reason Comments Diabetes Encounter Details Date Type Department Care Team (Late st Contact Info) Description 01/11/2013 9:30 AM EDT Office [place] [address] Jaylin Salcido APRN [facility] ENDOCRINOLOGY DEPT. [facility] [place] [address] Type I (juvenile type) diabetes mellitus with neurological manifestations, uncontrolled; Hyperlipidemia Discharge Disposition: Home Social History [...] Sign Reading Time Taken Comments Blood Pressure 181/94 01/11/2013 10:36 AM EDT Pulse 83 01/11/2013 10:36 AM EDT Temperature - - Respiratory Rate - - Oxygen Saturation - - Inhaled Oxygen Concentration - - Weight 87.1 kg (192 lb) 01/11/2013 10:36 AM EDT Height - - Body Mass Index 29.19 01/11/2013 8:45 AM EDT documented in this encounter Patient Instructions * Patient Instructions* Jaylin Salcido APRN - 01/11/2013 11:06 AM EDT Keep up the good work managing diabetes! I love my pancreas song by ritesh Hart advanced directives Lowered target glucose 95--110 documented in this encounter Progress Notes * Jaylin Salcido APRN - 01/11/2013 1:27 PM EDT DATE OF VISIT: 01/11/2013. REASON FOR VISIT: Follow up type 1 DM, in good overall control with complications of retinopathy, neuropathy, Charcot foot. BRIEF HISTORY: She had an appointment earlier this a.m. with urban planning teacher, Dr. Beasley. She states they discussed that today's blood pressure result was high. She states she does not have high blood pressure when she checks it at home. Date of dx : 50 yrs ago DIABETES REGIMEN: MiniMed insulin pump. Basal rates: 12 a.m., 1.2; 5 a.m., 1.15; 7 a.m., 1.2; 12 noon, 1.2; 5 p.m., 1.25; 10 p.m., 1.15. Total basal, 28.85. Insulin to carb, 1:10. Correction factor 25. Target glucose 95 to 125. Prevention strategies are up to date. REVIEW OF SYSTEMS: Depression and Mood: Overall, is doing well. She is bothered by persistent back pain. Eyes: Due for annual appointment with district court reporter. No recent headaches or chest pain or shortness of breath. No recent GI symptoms. Appetite is good. Sleep Pattern: She is bothered by back pain. Extremities: No feeling in her lower legs and feet. PHYSICAL EXAMINATION: Appearance: She is overweight. She appears in very good health. Weight 192 pounds. Blood pressure today 181/94. Eyes: Scars noted by green light exam. Neck: No thyromegaly or lymphadenopathy. Heart: Regular rate and rhythm, has a pacemaker. Lungs are clear to auscultation. 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 King, sales engineer account manager in [place]. 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 Hemoglobin A1c 8.1%, previous was 8.9%. IMPRESSION AND PLAN: Diabetes mellitus type 1, diagnosed 51 years ago, with complications. Will change target on pump to 95 to 110. She has not had low glucose levels recently. SBGM: Four to six times a day. She uses the Accu-Chek drum. Reason for higher frequency testing is to avoid severe hypoglycemia. IMMUNIZATION UPDATE: Given flu vaccine by Dariel Hubbard LPN. Prescription sent for Tramadol, which helps to manage neuropathy. Encouraged the patient to follow up with PCP for management of back pain. 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 She has never tried acupuncture. Return to office in 90 days, per Medicare. Will check hemoglobin A1c and other labs that she is due for. This was a 36-minute office visit with 35 minutes spent counseling [id number] with the patient in the management of glucose levels, lowering target glucose on pump to 110, reviewing blood pressure targets and cholesterol targets. Recent Results (from the past 72 hour(s)) EKG 12-LEAD Component Value Range Ventricular rate 80 Atrial Rate 80 P-R Interval 180 QRS Duration 80 Q-T Interval 362 QTC Calculated (Bezet) 417 Calculated P Torrey 82 Calculated R Torrey 66 Calculated T Torrey 69 INTERPRETATION Value: Normal sinus rhythm Low voltage QRS Borderline ECG When compared with ECG of 24-MAR-2010 07:53, No significant change was found Confirmed by MD HUI, VANESSA ([id number]) on 01/11/2013 10:28:31 AM COMPREHENSIVE METABOLIC PANEL (NON-FASTING) Component Value Range Glucose Lvl 315 (*) 60 - 199 mg/dL BUN 21 (*) 8 - 18 mg/dL Creatinine 1.17 0.70 - 1.20 mg/dL Sodium 136 135 - 145 mmol/L Potassium 4.5 3.5 - 5.0 mmol/L Chloride 99 98 - 107 mmol/L CO2 29 22 - 31 mmol/L Anion Gap 8 5 - 15 mmol/L Calcium 9.5 8.5 - 10.5 mg/dL Total Protein 7.4 6.4 - 8.3 gm/dL Albumin 4.3 3.2 - 5.2 gm/dL AST 29 0 - 30 unit/L ALT 29 0 - 30 unit/L Alk Phos 116 (*) 40 - 104 unit/L Total Bilirubin 0.4 0.2 - 1.3 mg/dL Bili, Direct 0.1 0.0 - 0.3 mg/dL Estimated GFR 46 (*) >=60 HEMOGLOBIN A1C Component Value Range Hemoglobin A1C 8.1 (*) 4.3 - 6.1 % Est Avg Gluc 186 LDL CHOLESTEROL, DIRECT Component Value Range LDL Chol Direct 98 <=99 mg/dL HDL/CHOL PROFILE Component Value Range Chol, Total 161 <=199 mg/dL HDL 50 >=40 mg/dL Chol/HDL Ratio 3.2 documented in this encounter Plan of Treatment Upcoming Encounters Date Type Department Care Team (Late st Contact Info) Description 02/29/2024 10:00 AM EST Office Visit Cardiology at [address] [place] [address] Ruben Hartman, PA [facility] [place] [address] 04/26/2024 10:00 AM EST Hospital Encounter Non-Invasive Cardiology Lab [facility] [place] [address] Arrived 09/24/2024 4:00 PM EDT Office Visit Cardiology at [address] [place] [phone] Nathaniel Keita MD [facility] [place] [address] Scheduled Referrals Name Type Priority Associated Diagnoses Orde r Schedule Referral to Ophthalmology Outpatient Referral Routine Type I (juvenile type) diabetes mellitus with neurological manifestations, uncontrolled Ordered: 01/11/2013 documented as of this encounter Procedures Procedure Name Priority Date/Time Associated Diagnosis Comments LDL CHOLESTEROL, DIRECT Routine 01/11/2013 9:48 AM EDT Hyperlipidemia HDL/CHOL PROFILE Routine 01/11/2013 9:48 AM EDT Hyperlipidemia HEMOGLOBIN A1C Routine 01/11/2013 9:48 AM EDT Type I (juvenile type) diabetes mellitus with neurological manifestations, uncontrolled COMPREHENSIVE METABOLIC PANEL Routine 01/11/2013 9:48 AM EDT Type I (juvenile type) diabetes mellitus with neurological manifestations, uncontrolled documented in this encounter Results * Microalbumin, urine, random (05/08/2013 9:51 AM EST) Creatinine, Urine 134 mg/dL CE ERROL MILLENNIUM Albumin, Urine 16.4 mg/L JOSE Connor MILLENNIUM Albumin / Creatinin Ratio, Urine 12 mcg/mg Cr THOMPSON MILLENNIUM Comment: Reference Range* Random collection (mcg/mg creatinine) Normal ?<30 Microalbuminuria ?? 30 - 300 Clinical Albuminuria ?? >300 *[place] Diabetes Association. Diabetic Nephropathy. Diabetes Care 1997;(Suppl 1):S24-S27 Exercise within 24 hour, infection, fever, CHF, marked hyperglycemia, and marked hypertension may elevate urinary albumin excretion over baseline values. Urine specimen (specimen) 05/08/2013 9:51 AM EST 05/08/2013 10:09 AM EST Narrative Resulting Agency Comment Spec In Lab Chris Chatman MD URINE ORDERABLES Performing Organization Address [facility] Co de Phone Number [facility] * TSH (05/08/2013 9:49 AM EST) Thyroid Stimulating Hormone 1.21 0.27 - 4.20 mcIU/mL [facility] Blood specimen (specimen) 05/08/2013 9:49 AM EST 05/08/2013 10:09 AM EST Narrative Resulting Agency Comment Spec In Lab Chris Chatman MD CHEMISTRY ORDERABLES Performing Organization Address [facility] Co de Phone Number [facility] * (ABNORMAL) Hemoglobin A1c (05/08/2013 9:49 AM EST) Hemoglobin A1c 8.2(H) <=5.6 % [facility] Comment: As of 2013 the methodology for [...] Mellitus, Diabetes Care 2013; 36: Suppl. 1, T27-57 Estimated Average Glucose 189 mg/dL [facility] Comment: eAG equivalents for HbA1c [...] into estimated average glucose values. ??Diabetes Care 2008:31(8):9932-0347. Blood specimen (specimen) 05/08/2013 9:49 AM EST 05/08/2013 10:09 AM EST Narrative Resulting Agency Comment Spec In Lab Chris Chatman MD CHEMISTRY ORDERABLES [facility] * HDL/Cholesterol Profile (01/11/2013 9:48 AM EDT) Cholesterol, Total 161 <=199 mg/dL [facility] Comment: Recommendations of the NCEP Adult Treatment Panel for the following risk cutoff thresholds for the [place] population: Desirable: <200 mg/dL Borderline High: 200-239 mg/dL High: > or = 240 mg/dL HDL Cholesterol 50 >=40 mg/dL [facility] Comment: Reference range: ??Low HDL: ?? < 40 mg/dL ??Normal: ?40-60 mg/dL ??Desirable: > 60 mg/dL REJI 2001; 285(19):4118-2523 Cholesterol/HDL Ratio 3.2 ratio [facility] Comment: A Cholesterol to HDL ratio below 4:1 is desirable. ??Studies suggest that increased CAD risk occurs at ratios above 5 for females and above 6 for men. ? [place] Heart Association ??(http://www.americanheart.org) ? Aurelia Int Med, 1994; 121:641 ? AM J Med, 1998; 105(1A):48S Blood specimen (specimen) 01/11/2013 9:48 AM EDT 01/11/2013 9:57 AM EDT Narrative Resulting Agency Comment Spec In Lab Chris Chatman MD CHEMISTRY ORDERABLES Performing Organization Address [email or web address]] de Phone Number [facility] * LDL Cholesterol, Direct (01/11/2013 9:48 AM EDT) LDL Cholesterol, Direct 98 <=99 mg/dL [facility] Comment: The National Cholesterol Education Program (NCEP) has set the following guidelines for LDL Cholesterol: Reference range: ?? Optimal: ?<100 mg/dL ?? Near Optimal/Above Optimal: ?? 100-129 mg/dL ?? Borderline high: ?130-159 mg/dL ?? High: ? 160-189 mg/dL ?? Very high: ?>jr=925 mg/dL REJI 2001: 285(19):1988-2784 Blood specimen (specimen) 01/11/2013 9:48 AM EDT 01/11/2013 9:57 AM EDT Narrative Resulting Agency Comment Spec In Lab Chris Chatman MD CHEMISTRY ORDERABLES Performing Organization Address [facility] [[email or web address]] de Phone Number [facility] * (ABNORMAL) Hemoglobin A1c (01/11/2013 9:48 AM EDT) Hemoglobin A1c 8.1(H) 4.3 - 6.1 % [facility] Comment: The [place] Diabetes Association (ADA) has stated that HbA1c [...] 2013:36;suppl 1:S11-S66. Estimated Average Glucose 186 mg/dL [facility] Comment: eAG equivalents for HbA1c [...] into estimated average glucose values. ??Diabetes Care 2008:31(8):9459-3725. Blood specimen (specimen) 01/11/2013 9:48 AM EDT 01/11/2013 9:57 AM EDT Narrative Resulting Agency Comment Spec In Lab Chris Chatman MD CHEMISTRY ORDERABLES CERNER MILLENNIUM * (ABNORMAL) Comprehensive metabolic panel (non-fasting) (01/11/2013 9:48 AM EDT) Glucose 315(H) 60 - 199 mg/dL [facility] MILLENNI[facility] Comment:Diabetes: >=200 mg/d L plus symptoms Blood Urea Nitrogen 21(H) 8 - 18 mg/dL CERNER MILLENNIUM Creatinine 1.17 0.70 - 1.20 mg/dL [facility] MILLENNI[facility] Comment: Please note that the pediatric reference intervals supplied above were not validated at [facility]. 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
--- OUTSIDE RECORDS SUMMARY | 2024-02-15 22:04 | XMS_ITS | Encounter Summary ---
[place] [address] Care Team Providers Care Agricultural Commodities Inspector Name Role Phone Alexander Adams MD Primary Care Provider [phone] Reason for Visit * Reason Onset Date Comments Medication Refill 12/21/2013 Encounter Details Date Type Department Care Team (Late st Contact Info) Description 12/21/2013 Refill [place] [address] Jaylin Salcido [facility] [place] [address] Social History Tobacco Use Types Packs/Day Years [...] AM EST Office Visit Cardiology at [address] [place] [phone] Ruben Hartman, LAURA [facility] [place] [address] 04/26/2024 10:00 AM EST Hospital Encounter Non-Invasive Cardiology Lab [facility] [place] [address] Arrived 09/24/2024 4:00 PM EDT Office Visit Cardiology at [address] [place] [address] Nathaniel Keita MD [facility] [place] [address] documented as of this encounter Visit Diagnoses Not on filedocumented in this encounter Care Teams Agricultural Commodities Inspector Relationship Specialty Start Date End Date Alexander dAams MD [address] [place] [id number] PCP - General 04/06/12 07/26/23 documented as of this encounter
--- OUTSIDE RECORDS SUMMARY | 2024-02-15 22:04 | XMS_ITS | Encounter Summary ---
Author Organization [facility] [place] [address] Care Team Providers Care Supervisor Gas Meter Repair Name Role Phone Alexander Adams MD Primary Care Provider [phone] Encounter Details Date Type Department Care Team (Latest Contact Info) Description 08/08/2013 9:38 AM EDT - 08/08/2013 11:59 PM EDT Hospital [place] [phone] Chris Chatman MD 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 07/27/2023 [facility] Fax form to [facility] INSULIN PUMP SUPPLIES 100 each 12 [...] ULTRA 2) monitoring kit 1 each by [facility].(Non-Drug; Combo Route) route as needed for Other. Test BG 5-6 times daily. Diagnosis code 250.63 1 each 0 03/12/2013 03/31/2017 Lancets (ONE TOUCH ULTRASOFT LANCETS) [facility] 1 each by [facility].(Non-Drug; Combo Route) route 6 times daily. Diag [...] 40 mg by mouth daily. 11/28/2014 Insulin [place], Disposable, (BD INSULIN PEN NEEDLE UF SHORT) 31 X 08/17 Ndle by Misc.(Non-Drug; Combo Route) route. 03/31/2017 SUBCUTANEOUS INSULIN PUMP (INSULIN PUMP [id number] MIS) by Misc.(Non-Drug; Combo Route) route. 03/31/2017 acetaminophen (TYLENOL) 325 [...] 10:00 AM EST Office Visit Cardiology at [address] [address] Ruben Hartman, PA [facility] [place] [address] 04/26/2024 10:00 AM EST Hospital Encounter Non-[place] [address] Arrived 09/24/2024 4:00 PM EDT Office Visit Cardiology at [address] [address] [facility] [place] [address] documented as of this encounter Procedures Procedure Name Priority Date/Time Associated Diagnosis Comments HEMOGLOBIN A1C Routine 08/08/2013 9:44 AM EDT Type I (juvenile type) diabetes [...] 36: Suppl. 1, S67-74 Estimated Average Glucose 206 mg/dL [facility] Comment: eAG equivalents for [...] into estimated average glucose values. ??Diabetes Care 2008:31(8):4814-2163. 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
--- OUTSIDE RECORDS SUMMARY | 2024-02-15 22:05 | XMS_ITS | Encounter Summary ---
[place] [address] Care Team Providers Care Technology Program Manager Name Role Phone Alexander Adams MD Primary Care Provider [phone] Reason for Visit * Reason Onset Date Comments Medication Refill 06/19/2012 Encounter Details Date Type Department Care Team (Late st Contact Info) Description 06/19/2012 [place] [address] Elisha Nichols MD [facility] [place] [address] Hypertension (Primary Dx) Social History Tobacco Use Types [...] 10:00 AM EST Office Visit Cardiology at [address] [address] Ruben Hartman PA [facility] [place] [address] 04/26/2024 10:00 AM EST Hospital Encounter Non-Invasive Cardiology Lab Count Includes [facility] [address] Arrived 09/24/2024 4:00 PM EDT Office Visit Cardiology at [address] [place] [address] Nathaniel Keita MD [facility] [place] [address] documented as of this encounter Visit Diagnoses Diagnosis Hypertension- Primary Unspecified essential hypertension documented in this encounter Care Teams Technology Program Manager Relationship Specialty Start Date End Date Alexander Adams MD [address] [place] [address] PCP - General 04/06/12 07/26/23 documented as of this encounter
--- OUTSIDE RECORDS SUMMARY | 2024-02-15 22:05 | XMS_ITS | Encounter Summary ---
Author Organization [facility] [place] [address] Care Team Providers Care Nut Feeder Name Role Phone Neva Pugh MD Primary Care Provider [phone] Encounter Details Date Type Department Care Team (Latest Contact Info) Description 08/09/2011 12:38 PM EDT - 08/09/2011 11:59 PM EDT Hospital [place] [phone] Elisha Nichols MD [facility] [place] [address] DM type 1 (diabetes mellitus, type 1) Discharge Disposition: Home Social History Tobacco Use [...] Once daily 03/24/2010 valsartan (DIOVAN) 40 mg tablet Take 40 mg by mouth daily. 08/16/2011 Blood Sugar Diagnostic, Drum (ACCU-CHEK COMPACT TEST) Strp 6 strips [place] [facility]Non-Drug; Combo Route) route 6 times daily. 4-6 times daily 6 Box 3 03/15/2011 05/08/2013 furosemide (LASIX) 20 mg tabletIndications:h ypertension Take by mouth daily as needed. Tue/tue/tue Indications: Hypertension 90 tablet 3 01/25/2011 12/02/2011 insulin aspart (NOVOLOG) 100 unit/mL vial injection Inject 50-60 Units subcutaneously daily. 60 mL PRN 12/29/2010 01/11/2012 traMADol-acetaminop hen (ULTRACET) 37.5-325 mg per tablet Take 1 tablet by mouth 2 times daily as needed for Pain. 40 tablet PRN 12/29/2010 12/02/2011 esomeprazole (NEXIUM) 40 mg capsule Take 1 capsule by mouth daily. 90 capsule 3 12/17/2010 12/02/2011 metoprolol succinate (TOPROL-XL) 25 mg 24 hr tabletIndications:H ypertension Take 1 tablet by mouth daily. 90 tablet 3 10/19/2010 12/02/2011 simvastatin (ZOCOR) 20 mg tabletIndications:H yperlipidemia Take 1 tablet by mouth nightly. 90 tablet 3 10/19/2010 12/02/2011 Insulin [place], Disposable, (BD INSULIN PEN NEEDLE UF SHORT) 31 X 5/16 [place]dle by [facility]Non-Drug; Combo Route) route. 03/31/2017 SUBCUTANEOUS INSULIN PUMP (INSULIN PUMP [id number] [facility] by [facility].(Non-Drug; Combo Route) route. 03/31/2017 acetaminophen (TYLENOL) 325 mg tablet Take 650 mg by mouth every 4 hours as needed. 09/29/2017 multivitamin (DAILY MULTIPLE) tablet 03/24/2010 03/31/2017 glucagon, human recombinant, 1 mg injection as directed IM PRN 03/24/2010 4 thiamine (VITAMIN B-1) 250 mg tablet 250 mg PO Once daily 03/24/2010 1 06/01/2016 insulin glargine (LANTUS) 100 unit/mL injection 22 units SQ prn pump failure 03/24/2010 12/02/2011 DOCOSAHEXANOIC ACID/EPA (FISH OIL ORAL) 03/24/2010 01/11/2013 Cholecalciferol, Vitamin D3, (VITAMIN D) 1,000 unit Cap 03/24/2010 01/11/2013 senna-docusate (SENOKOT-S) 8.6-50 mg per tablet 2 Tablet(s), PO, Once daily,PRN 03/24/2010 07/06/2012 documented as of this encounter Plan of Treatment Upcoming Encounters Date Type Department Care Team (Late st Contact Info) Description 02/29/2024 10:00 AM EST Office Visit Cardiology at [address] [phone] Ruebn Hartman PA [facility] [address] 04/26/2024 10:00 AM EST Hospital Encounter Non-Invasive [place] [address] Arrived 09/24/2024 4:00 PM EDT Office Visit Cardiology at [address] [phone] Nathaniel Keita MD [facility] [place] [address] documented as of this encounter Procedures Procedure Name Priority Date/Time Associated Diagnosis Comments LDL CHOLESTEROL, DIRECT Routine 08/09/2011 12:43 PM EDT DM type 1 (diabetes mellitus, type 1) HDL/CHOL PROFILE Routine 08/09/2011 12:4 3 PM EDT DM type 1 (diabetes mellitus, type 1) HEMOGLOBIN A1C Routine 08/09/2011 12:43 PM EDT DM type 1 (diabetes mellitus, type 1) documented in this encounter Results * (ABNORMAL) HDL/Cholesterol Profile (08/09/2011 12:43 PM EDT) Cholesterol, Total 222(H) <=199 mg/dL [facility] Comment: Recommendations of the NCEP Adult Treatment Panel for the following risk cutoff thresholds for the [place] population: Desirable: <200 mg/dL Borderline High: 200-239 mg/dL High: > or = 240 mg/dL HDL Cholesterol 49 >=40 mg/dL [facility] Comment: Reference range: ??Low HDL: ?? < 40 mg/dL ??Normal: ?40-60 mg/dL ??Desirable: > 60 mg/dL REJI 2001; 285(19):6014-0075 Cholesterol/HDL Ratio 4.5 ratio [facility] Comment: A Cholesterol to HDL ratio below 4:1 is desirable. ??Studies suggest that increased CAD risk occurs at ratios above 5 for females and above 6 for men. ? [place] Heart Association ??(http://www.americanheart.org) ? Aurelia Int Med, 1994; 121:641 ? AM J Med, 1998; 105(1A):48S Blood specimen (specimen) 08/09/2011 12:43 PM EDT 08/09/2011 12:54 PM EDT Narrative Resulting Agency Comment Spec In Lab Elisha Nichols MD CHEMISTRY ORDERAB LES [facility] * (ABNORMAL) LDL Cholesterol, Direct (08/09/2011 12:43 PM EDT) LDL Cholesterol, Direct 142(H) <=99 mg/dL [facility] Comment: The National Cholesterol Education Program (NCEP) has set the following guidelines for LDL Cholesterol: Reference range: ?? Optimal: ?<100 mg/dL ?? Near Optimal/Above Optimal: ?? 100-129 mg/dL ?? Borderline high: ?130-159 mg/dL ?? High: ? 160-189 mg/dL ?? Very high: ?>ip=281 mg/dL REJI 2001: 285(19):2182-8191 Blood specimen (specimen) 08/09/2011 12:43 PM EDT 08/09/2011 12:54 PM EDT Narrative Resulting Agency Comment Spec In Lab Elisha Nichols MD CHEMISTRY ORDERAB LES [facility] * (ABNORMAL) Hemoglobin A1c (08/09/2011 12:43 PM EDT) Hemoglobin A1c 8.6(H) 4.3 - 6.1 % [facility] Estimated Average Glucose 200 mg/dL [facility] Comment: eAG equivalents for HbA1c percentages: HbA1c(%) ?eAG(mg/dL) 6.0 ?126 6.5 ?140 7.0 ?154 7.5 ?169 8.0 ?183 8.5 ?197 9.0 ?212 9.5 ?226 10.0 ? 240 Limitations: The eAG calculation has not been validated on women, individuals below 18 years old and above 70 years old, and individuals with hemoglobinopathies. Additional resources are available on the ADA website: ??http://professional.diabetes.org/glucosecalculator.aspx Reference: Alfred JEFFRIES, Risa J, Sergio R, et al. ??Translating the A1C assay into estimated average glucose values. ??Diabetes Care 2008:31(8):8885-9404. Blood specimen (specimen) 08/09/2011 12:43 PM EDT 08/09/2011 12:54 PM EDT Narrative Resulting Agency Comment Spec In Lab Elisha Nichols MD CHEMISTRY ORDERAB LES Performing Organization Address City/State/[facility] Co de Phone Number [facility] documented in this encounter Visit Diagnoses Diagnosis DM type 1 (diabetes mellitus, type 1) Type I (juvenile type) diabetes mellitus without mention of complication, not stated as uncontrolled documented in this encounter Care Teams Nut Feeder Relationship Specialty Start Date End Date Neva Pugh MD [address] [place] [address] PCP - General 02/24/10 04/05/12 documented as of this encounter
--- OUTSIDE RECORDS SUMMARY | 2024-02-15 22:05 | XMS_ITS | Encounter Summary ---
[place] [address] Care Team Providers Care Operations Administrative Assistant Name Role Phone Neva Pugh MD Primary Care Provider [phone] Reason for Visit * Reason Onset Date Comments Medication Refill 12/29/2010 Encounter Details Date Type Department Care Team (Late st Contact Info) Description 12/29/2010 Ref[place] [address] Elisha Nichols MD [facility] [place] [address] Social History Tobacco Use Types Packs/Day Years [...] AM EST Office Visit Cardiology at [address] [place] [phone] Ruben Hartman PA [facility] [place] [address] 04/26/2024 10:00 AM EST Hospital Encounter Non-Invasive Cardiology Lab [facility] [place] [address] Arrived 09/24/2024 4:00 PM EDT Office Visit Cardiology at [address] [place] [address] Nathaniel Keita MD [facility] [place] [address] documented as of this encounter Visit Diagnoses Not on filedocumented in this encounter Care Teams Operations Administrative Assistant Relationship Specialty Start Date End Date Neva Pugh MD [address] [place] [address] PCP - General 02/24/10 04/05/12 documented as of this encounter
--- OUTSIDE RECORDS SUMMARY | 2024-02-15 22:05 | XMS_ITS | Encounter Summary ---
[place] [address] Care Team Providers Care Index Clerk Name Role Phone Neva Pugh MD Primary Care Provider [phone] Reason for Visit * Reason Onset Date Comments Medication Refill 08/16/2011 Encounter Details Date Type Department Care Team (Late st Contact Info) Description 08/16/2011 Ref[place] [address] Jaylin Salcido [facility] DR ENDOCRINOLOGY [place] [address] Social History Tobacco Use Types Packs/Day Years [...] AM EST Office Visit Cardiology at [address] [place] [phone] Ruben Hartman, LAURA [facility] [place] [address] 04/26/2024 10:00 AM EST Hospital Encounter Non-Invasive Cardiology Lab Count Includes [facility] [address] Arrived 09/24/2024 4:00 PM EDT Office Visit Cardiology at [address] [place] [address] Nathaniel Keita MD [facility] [address] documented as of this encounter Visit Diagnoses Not on filedocumented in this encounter Care Teams Index Clerk Relationship Specialty Start Date End Date Neva Pugh MD [address] [place] [address] PCP - General 02/24/10 04/05/12 documented as of this encounter
--- OUTSIDE RECORDS SUMMARY | 2024-02-15 22:05 | XMS_ITS | Encounter Summary ---
[place] [address] Care Team Providers Care Telecommunications Manager Name Role Phone Neva uPgh MD Primary Care Provider [phone] Encounter Details Date Type Department Care Team (Latest Contact Info) Description 01/06/2012 12:46 PM EDT - 01/06/2012 11:59 PM EDT Hospital Encounter Non-Invasive [place] [phone] CARDIO, ECHO SIXTY MIN APPT None Milind Beasley MD [facility] [place] [address] Fatigue Discharge Disposition: Home Social History Tobacco Use [...] tablets by mouth daily. 90 tablet 3 01/06/2012 06/19/2012 Diabetic Supplies, Miscellan. Misc by [facility].(Non-Drug; Combo Route) route. Insulin Pump Supplies and Diabetes Testing Supplies. Pt. Tests BS 4x/day. 90 day supply. Manually faxed to [employer] [phone]. 12/13/2011 02/22/2013 simvastatin (ZOCOR) 20 mg tabletIndications:H [...] (ACCU-CHEK COMPACT TEST) Strp 6 strips by [facility].(Non-Drug; Combo Route) route 6 times daily. 4-6 times daily 6 Box 3 03/15/2011 05/08/2013 insulin aspart (NOVOLOG) 100 unit/mL vial injection Inject 50-60 Units subcutaneously daily. 60 mL PRN 12/29/2010 01/11/2012 Insulin [place], Disposable, (BD INSULIN PEN NEEDLE UF SHORT) 31 X 5/16 Ndle by [facility].(Non-Drug; Combo Route) route. 03/31/2017 SUBCUTANEOUS INSULIN PUMP (INSULIN PUMP [id number] [facility]) by [facility].(Non-Drug; Combo Route) route. 03/31/2017 [...] AM EST Office Visit Cardiology at [address] [phone] Ruben Hartman PA [facility] [place] [address] 04/26/2024 10:00 AM EST Hospital Encounter Non-Invasive [place] [address] Arrived 09/24/2024 4:00 PM EDT Office Visit Cardiology at [address] [phone] Nathaniel Keita MD [facility] [place] [address] documented as of this encounter Procedures Procedure Name Priority Date/Time Associated Diagnosis Comments ECHOCARDIOGRAM TRANSTHORACIC Routine 01/06/2012 2:30 PM EDT Fatigue documented in this encounter Results * Echo Transthoracic (Complete) (01/06/2012 2:30 PM EDT) EF 60 HEARTLAB SYSTEM Anatomical Region Laterality Modality Other 01/06/2012 Narrative 01/06/2012 2:42 PM EDT Procedure: ? Transthoracic Echocardiogram Patient: ? KAN Tyler ? (Age): 1945(66) Med Rec#: ?[id number] ? Sex: ?F ? Site Loc: [place] ? Ht / Wt: ??172(cm)/91(kg) Pt. Loc: ? Echo Lab ? BSA: ?2.09 Study Date: ?01/06/2012 ? Pt. Type: Outpatient Tape: ? Referring: Milind Beasley ([id number]) Chain Maker Machine: Erendira Keller RDCS Diagnosis: ??CAD, unspecified (414.4) ??Fatigue (780.79) CPT Code(s): ??Echo Full (60468), ??Spectral Doppler (71075), ??Color Doppler (53744), ??Definity (21814WI), Indication(s): ??Fatigue Rhythm: HR ?BP 85 ?145/80 ?? SUMMARY: 1. Technically difficult study. ??Definity contrast was used to enhance endocardial definition. 2. Left ventricular chamber size, wall thickness, global and segmental systolic function are within normal limits. Ejection fraction is estimated to be 60%. 3. Right ventricular chamber size, wall thickness, and systolic function are within normal limits. 4. There is no hemodynamically significant valve disease. 5. See remainder of report for additional findings. FINDINGS: Left Ventricle ?Left ventricular chamber size, wall thickness, global and segmental systolic function are within normal limits. Ejection fraction is estimated to be 60%. ?There are no left ventricular segmental wall motion abnormalities. ?Doppler assessment is consistent with normal left sided filling pressure. Left Atrium ?The left atrium is normal in size. Right Ventricle ?Right ventricular chamber size, wall thickness, and systolic function are within normal limits. ?A pacemaker wire is visualized in the right ventricle. ?No pulmonary hypertension is noted. ?The estimated pulmonary artery systolic pressure is 37 mmHg. ?The estimated right atrial pressure is 3 mmHg. Right Atrium ?The right atrium is normal in size. Aortic Valve ?The aortic valve is trileaflet. The leaflets are thin with normal excursion. There is no aortic stenosis or regurgitation present. Mitral Valve ?The mitral valve appears normal in structure and function. ?There is mild (1+/4+) mitral regurgitation present. Tricuspid Valve ?The tricuspid valve appears normal in structure and function. ?There is mild (1+/4+) tricuspid regurgitation present. Pulmonic Valve ?The pulmonic valve appears normal in structure and function. Pericardium ?The pericardium appears normal and there is no evidence of a pericardial effusion. Pulmonary Artery ?The main pulmonary artery appears normal. Venous ?The inferior vena cava appears normal in size. ?There is a greater than 50% respiratory change in the inferior vena cava dimension. Misc ?Technically difficult study. ?See remainder of report for additional findings. ?Two-dimensional echo, spectral Doppler and color Doppler performed. ?Definity contrast (one 1.5 ml vial)was used to enhance endocardial definition. Excess contrast was discarded. Wall Motion: Segment Name ?Rest ? Base-Anteroseptal ?? Normal ? Base-Anterior ? Normal ? Base-Anterolateral ??Normal ? Base-Posterolateral Normal ? Base-Inferior ? Normal ? Base-Inferoseptal ?? Normal ? Mid-Anteroseptal ?Normal ? Mid-Anterior ?Normal ? Mid-Anterolateral ?? Normal ? Mid-Posterolateral ??Normal ? Mid-Inferior ?Normal ? Mid-Inferoseptal ?Normal ? [place]-Septal ? Normal ? [place]-Anterior ? Normal ? [place]-Lateral ?Normal ? [place]-Inferior ? Normal ? [place]-Tip ?Normal ? Chambers ?Value ?Units (Range) ? LV EF Est ? 60 ? % (55 to 80) ? LVIDd 2D ?5 ?cm ? LA area ? 13 ? cm2 (<21) ? RA area ? 13 ? cm2 (<18) ? Ao root ? 2.9 ?cm (2.1 to 3.6) ? Asc Ao ?2.7 ?cm (2 to 3.5) ? Mitral Valve ?Value ?Units (Range) ? E peak ?1.1 ?m/sec ? E/A ratio ? 1 ?ratio ? MVDT ?122 ?msec ? E1 ?0.08 ? m/sec ? E/E1 ?13 ? ratio ? Tricuspid/Pulmonic Valves ?Value ?Units (Range) ? TR peak margo ? 2.9 ?m/sec ? RAP ? 3 ?mmHg ? RVSP/PASP ? 37 ? mmHg ? This report has been electronically signed by: Alexander Abernathy M.D. ? 01/06/2012 14:41:31 Images reviewed and interpretation verified [facility] Cardiac Ultrasound Laboratory Procedure Note Alexander Abernathy MD - 01/06/2012 Procedure: Transthoracic Echocardiogram Patient: KAN MATHIS(Age): 1945(66) Med Rec#: [id number] Sex: F Site Loc: [facility] Ht / Wt: 172(cm)/91(kg) Pt. Loc: Echo Lab BSA: 2.09 Study Date: 01/06/2012 Pt. Type: Outpatient Tape: Referring: Milind Beasley ([id number]) Chain Maker Machine: Erendira Keller RUST Diagnosis: CAD, unspecified (414.4) Fatigue (780.79) CPT Code(s): Echo Full (58900), Spectral Doppler (02064), Color Doppler (32381), Definity (12322UP), Indication(s): Fatigue Rhythm: HR BP 85 145/80 SUMMARY: 1. Technically difficult study. Definity contrast was used to enhance endocardial definition. 2. Left ventricular chamber size, wall thickness, global and segmental systolic function are within normal limits. Ejection fraction is estimated to be 60%. 3. Right ventricular chamber size, wall thickness, and systolic function are within normal limits. 4. There is no hemodynamically significant valve disease. 5. See remainder of report for additional findings. FINDINGS: Left Ventricle Left ventricular chamber size, wall thickness, global and segmental systolic function are within normal limits. Ejection fraction is estimated to be 60%. There are no left ventricular segmental wall motion abnormalities. Doppler assessment is consistent with normal left sided filling pressure. Left Atrium The left atrium is normal in size. Right Ventricle Right ventricular chamber size, wall thickness, and systolic function are within normal limits. A pacemaker wire is visualized in the right ventricle. No pulmonary hypertension is noted. The estimated pulmonary artery systolic pressure is 37 mmHg. The estimated right atrial pressure is 3 mmHg. Right Atrium The right atrium is normal in size. Aortic Valve The aortic valve is trileaflet. The leaflets are thin with normal excursion. There is no aortic stenosis or regurgitation present. Mitral Valve The mitral valve appears normal in structure and function. There is mild (1+/4+) mitral regurgitation present. Tricuspid Valve The tricuspid valve appears normal in structure and function. There is mild (1+/4+) tricuspid regurgitation present. Pulmonic Valve The pulmonic valve appears normal in structure and function. Pericardium The pericardium appears normal and there is no evidence of a pericardial effusion. Pulmonary Artery The main pulmonary artery appears normal. Venous The inferior vena cava appears normal in size. There is a greater than 50% respiratory change in the inferior vena cava dimension. Misc Technically difficult study. See remainder of report for additional findings. Two-dimensional echo, spectral Doppler and color Doppler performed. Definity contrast (one 1.5 ml vial)was used to enhance endocardial definition. Excess contrast was discarded. Wall Motion: Segment Name Rest Base-Anteroseptal Normal Base-Anterior Normal Base-Anterolateral Normal Base-Posterolateral Normal Base-Inferior Normal Base-Inferoseptal Normal Mid-Anteroseptal Normal Mid-Anterior Normal Mid-Anterolateral Normal Mid-Posterolateral Normal Mid-Inferior Normal Mid-Inferoseptal Normal [place]-Septal Normal [place]-Anterior Normal [place]-Lateral Normal [place]-Inferior Normal [place]-Tip Normal Chambers Value Units (Range) LV EF Est 60 % (55 to 80) LVIDd 2D 5 cm LA area 13 cm2 (<21) RA area 13 cm2 (<18) Ao root 2.9 cm (2.1 to 3.6) Asc Ao 2.7 cm (2 to 3.5) Mitral Valve Value Units (Range) E peak 1.1 m/sec E/A ratio 1 ratio MVDT 122 msec E1 0.08 m/sec E/E1 13 ratio Tricuspid/Pulmonic Valves Value Units (Range) TR peak margo 2.9 m/sec RAP 3 mmHg RVSP/PASP 37 mmHg This report has been electronically signed by: Alexander Abernathy M.D. 01/06/2012 14:41:31 Images reviewed and interpretation verified [facility] Cardiac Ultrasound Laboratory Milind Beasley MD ECHO ORDERABLES documented in this encounter Visit Diagnoses Diagnosis Fatigue Other malaise and fatigue documented in this encounter Administered Medications Inactive Administered Medications - up to 3 most recent administrations Medication Order MAR Action Action Date Dose Rate Site perflutren lipid microspheres (DEFINITY) injection 0.5 mL 0.5 mL, Intravenous, IMG ONCE PRN, 1 dose, Starting on Beatriz 10 at 1431, Until Beatriz 10 at 1431, Other, for enhancement of sub-optimal echo images, Echo Lab (Intra-Procedure), Routine Given 01/06/2012 2:31 PM EDT 0.5 mLs documented in this encounter Care Teams Telecommunications Manager Relationship Specialty Start Date End Date Neva Pugh MD [address] [place] [address] PCP - General 02/24/10 04/05/12 documented as of this encounter
--- OUTSIDE RECORDS SUMMARY | 2024-02-15 22:05 | XMS_ITS | Encounter Summary ---
[place] [address] Care Team Providers Care Utility Forester Name Role Phone Alexander Adams MD Primary Care Provider [phone] Reason for Visit * Reason Comments Diabetes Encounter Details Date Type Department Care Team (Late st Contact Info) Description 04/06/2012 9:00 AM EST Office [place] [id number] Jaylin Salcido [facility] ENDOCRINOLOGY [place] [address] Diabetes mellitus; DM neuro manif type I; Hyperlipidemia Discharge Disposition: Home Social History Tobacco [...] Sign Reading Time Taken Comments Blood Pressure 145/64 04/06/2012 10:09 AM EST Pulse 88 04/06/2012 10:09 AM EST Temperature - - Respiratory Rate - - Oxygen Saturation - - Inhaled Oxygen Concentration - - Weight 88.9 kg (196 lb) 04/06/2012 10:09 AM EST Height - - Body Mass Index 29.81 01/06/2012 8:58 AM EDT documented in this encounter Patient Instructions * Patient Instructions* Jaylin Salcido APRN - 04/06/2012 10:35 AM EST Keep up the good work managing glucose levels Hydration daily! documented in this encounter Progress Notes * Jaylin Salcido APRN - 04/06/2012 11:47 AM EST DATE OF VISIT: 04/06/2012 REASON FOR VISIT: Followup DM with many complications. BRIEF HISTORY: Presents and states she feels well. States glucose levels have generally been okay. DIABETES REGIMEN: MiniMed 722 insulin pump, uses NovoLog. Basal rates 12 a.m. 1.15, 4 a.m. 1.15, 6 a.m. 1.2, 12 noon 1.15, 5 p.m. 1.2, and 10 p.m. 1.1. Total basal 28.05. [id number] 1:10. Correction factor 25. Target 95 to 125. PAST MEDICAL HISTORY: Significant for CABG status post cardiac arrest in 2009. 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 Retinopathy with laser to both eyes. Nephropathy. 24-HOUR MEAL PLAN: Breakfast is toast. Lunch varies, sometimes a chicken sandwich. Dinner was pork roast, carrots, and potatoes. PHYSICAL ACTIVITY: Not much related to low back pain. Does have a stationary bike that she tries to use as often as possible. Prevention strategies are up-to-date. REVIEW OF SYSTEMS: Depression and Mood: States generally she is doing well. Does have fatigue and low back pain. Eyes: No recent vision changes. No recent headaches or chest pain. Has an annual visit with adjudication specialist. No recent shortness of breath. No recent GI symptoms. Appetite is good. Sleep pattern is good. Skin: No rashes. No sores. Had basal cell cancer removed from upper L arm. Feet: Followed by Dr. King, regroover in [place], [place]. PHYSICAL EXAMINATION: Appearance: She appears in very good health. Overweight. Blood pressure 145/64. States her home blood pressure this morning was 104/56. Eyes: No retinopathy by green light exam. Neck: No thyromegaly or lymphadenopathy. Heart: Regular rate and rhythm. No murmurs. Lungs are clear to auscultation. Feet: Changes consistent with Charcot. Pulses are normal. Neuro: Has decreased sensation from mid lower legs distally. Hemoglobin A1c 7.9%, previous was 8.0%. Creatinine is elevated and GFR is 31. IMPRESSION AND PLAN: Diabetes mellitus with complications. Consider referral to proration clerk. The patient states she definitely could drink more water daily and she is going to try to do that. Will consider referral to proration clerk at next office visit if kidney function continues to deteriorate. Blood pressure is at goal from home reading results. No recent hypoglycemia. No change in diabetes regimen today. Weight 196 pounds same as it has been, unfortunately the patient is not able to be more physically active related to low back pain. This was a 34-minute office visit with 33 minutes spent counseling with the patient in the management of glucose levels, reviewing her lab results, gave her copy, and reviewing prevention and treatment of hypoglycemia. Return to office in [address] Nichols. Will check hemoglobin A1c and BMP. LDL is not at goal, but she is not able to tolerate a higher dose of statin. Has tried that in the past. documented in this encounter Plan of Treatment Upcoming Encounters Date Type Department Care Team (Late st Contact Info) Description 02/29/2024 10:00 AM EST Office Visit Cardiology at [address] [place] [address] Ruben Hartman, LAURA [facility] [place] [address] 04/26/2024 10:00 AM EST Hospital Encounter Non-Invasive Cardiology Lab [facility] [place] [address] Arrived 09/24/2024 4:00 PM EDT Office Visit Cardiology at [address] [place] [address] Nathaniel Keita MD [facility] [place] [address] documented as of this encounter Procedures Procedure Name Priority Date/Time Associated Diagnosis Comments DIFFERENTIAL, AUTOMATED Routine 04/06/2012 9:08 AM EST CBC (WITH DIFF) Routine 04/06/2012 9:08 AM EST Diabetes mellitus HEMOGLOBIN A1C Routine 04/06/2012 9:08 AM EST Diabetes mellitus COMPREHENSIVE METABOLIC PANEL Routine 04/06/2012 9:08 AM EST Diabetes mellitus documented in this encounter Results * Microalbumin, urine, random (07/06/2012 9:36 AM EDT) Creatinine, Urine 126 mg/dL CE ERROL MILLENNIUM Albumin, Urine 10.0 mg/L JOSE Connor MILLENNIUM Albumin / Creatinin Ratio, Urine 8 mcg/mg Cr [facility] [employer] Comment: Reference Range* Random collection (mcg/mg creatinine) Normal ?<30 Microalbuminuria ?? 30 - 300 Clinical Albuminuria ?? >300 *[place] Diabetes Association. Diabetic Nephropathy. Diabetes Care 1997;(Suppl 1):S24-S27 Exercise within 24 hour, infection, fever, CHF, marked hyperglycemia, and marked hypertension may elevate urinary albumin excretion over baseline values. Urine specimen (specimen) 07/06/2012 9:36 AM EDT 07/06/2012 9:45 AM EDT Narrative Resulting Agency Comment Spec In Lab Chris Chatman MD URINE ORDERABLES [facility] [employer] * (ABNORMAL) LDL Cholesterol, Direct (07/06/2012 9:25 AM EDT) LDL Cholesterol, Direct 114(H) <=99 mg/dL [facility] Comment: The National Cholesterol Education Program (NCEP) has set the following guidelines for LDL Cholesterol: Reference range: ?? Optimal: ?<100 mg/dL ?? Near Optimal/Above Optimal: ?? 100-129 mg/dL ?? Borderline high: ?130-159 mg/dL ?? High: ? 160-189 mg/dL ?? Very high: ?>tl=850 mg/dL REJI 2001: 285(19):2014-3902 Blood specimen (specimen) 07/06/2012 9:25 AM EDT 07/06/2012 9:46 AM EDT Narrative Resulting Agency Comment Spec In Lab Chris Chatman MD CHEMISTRY ORDERABLES [facility] * HDL/Cholesterol Profile (07/06/2012 9:25 AM EDT) Cholesterol, Total 187 <=199 mg/dL [facility] Comment: Recommendations of the NCEP Adult Treatment Panel for the following risk cutoff thresholds for the [place] population: Desirable: <200 mg/dL Borderline High: 200-239 mg/dL High: > or = 240 mg/dL HDL Cholesterol 43 >=40 mg/dL [facility] Comment: Reference range: ??Low HDL: ?? < 40 mg/dL ??Normal: ?40-60 mg/dL ??Desirable: > 60 mg/dL REJI 2001; 285(19):6782-1254 Cholesterol/HDL Ratio 4.3 ratio [facility] Comment: A Cholesterol to HDL ratio below 4:1 is desirable. ??Studies suggest that increased CAD risk occurs at ratios above 5 for females and above 6 for men. ? [place] Heart Association ??(http://www.americanheart.org) ? Aurelia Int Med, 1994; 121:641 ? AM J Med, 1998; 105(1A):48S Blood specimen (specimen) 07/06/2012 9:25 AM EDT 07/06/2012 9:46 AM EDT Narrative Resulting Agency Comment Spec In Lab Chris Chatman MD CHEMISTRY ORDERABLES Performing Organization Address [facility] de Phone Number [facility] * VIT D Total Evaluation (07/06/2012 9:25 AM EDT) Vitamin D Total 25 OH 36 30 - 100 ng/mL [facility] Comment: Deficient <10 ng/mL Insufficient 10 to [...] Narrative Resulting Agency Comment Spec In Lab Chrsi Chatman MD CHEMISTRY ORDERABLES Performing Organization Address [facility] de Phone Number [facility] * (ABNORMAL) Hemoglobin A1c (07/06/2012 9:25 AM EDT) Hemoglobin A1c 7.8(H) 4.3 - 6.1 % [facility] Comment: The [place] Diabetes Association (ADA) has stated that HbA1c [...] 2013:36;suppl 1:S11-S66. Estimated Average Glucose 177 mg/dL [facility] Comment: eAG equivalents for HbA1c percentages: [...] the ADA website: ??http://professional.diabetes.org/glucosecalculator.aspx Alfred JEFFRIES, Risa Chavez, Sergio R, et al. ??Translating the A1C assay into estimated average glucose values. ??Diabetes Care 2008:31(8):1322-2342. Blood specimen (specimen) 07/06/2012 9:25 AM EDT 07/06/2012 9:46 AM EDT Narrative Resulting Agency Comment Spec In Lab Chris Chatman MD CHEMISTRY ORDERABLES [facility] * Differential, Automated (04/06/2012 9:08 AM EST) Neutrophil % 62.5 34.0 - 71.0 % CERNER MILLENNIUM Neutrophil Absolute 5.91 1.50 - 6.30 x10(3)/mcL CERNER MILLENNIUM Lymph % 30.0 19.0 - 53.0 % CERNER MILLENNIUM Lymphocytes Abs 2.8 1.0 - 3.6 x10(3)/mcL CERNER MILLENNIUM Monocyte % 4.6 4.0 - 13.0 % CERNER MILLENNIUM Monocyte Abs 0.4 0.2 - 1.0 x10(3)/mcL CERNER MILLENNIUM Eos % 2.5 0.0 - 7.0 % CERNER MILLENNIUM Eosinophils Abs 0.2 0.0 - 0.5 x10(3)/mcL CERNER MILLENNIUM Basophil % 0.3 0.0 - 2.0 % CERNER MILLENNIUM Baso Absolute 0.0 0.0 - 0.2 x10(3)/mcL CERNER MILLENNIUM Immature Gran % 0.10 0.00 - 0.66 % CERNER MILLENNIUM Comment: Immature granulocytes(IG's)percentage and absolute count will include metamyelocytes, myelocytes, and promyelocytes. Blood smears from CBCs yielding IG's will be scanned manually for concordance. If this scan disagrees with the automated IG or if promyelocytes are noted, a manual differential will be performed. Immature Gran Absolute 0.01 0.00 - 0.05 x10(3)/mcL CERNER MILLENNIUM Blood specimen (specimen) 04/06/2012 9:08 AM EST 04/06/2012 9:10 AM EST Chris Chatman MD HEMATOLOGY ORDERABLE S CERNER MILLENNIUM * CBC (with Diff) (04/06/2012 9:08 AM EST) White Blood Cell 9.5 4.0 - 10.0 x10(3)/mcL CERNER MILLENNIUM Red Blood Cell 4.62 3.93 - 5.22 x10(6)/mcL CERNER MILLENNIUM Hemoglobin 13.6 11.2 - 15.7 gm/dL CERNER MILLENNIUM Hematocrit 40.5 34.0 - 45.0 % CERNER MILLENNIUM Mean Cell Volume 87.7 79.0 - 94.0 fL CERNER MILLENNIUM Mean Cell Hemoglobin 29.4 26.6 - 32.2 pg CERNER MILLENNIUM Mean Cell Hemoglobin Concentration 33.6 32.0 - 36.5 gm/dL CERNER MILLENNIUM Platelet 205 145 - 370 x10(3)/mcL CERNER MILLENNIUM RDW Standard Deviation 42.5 35.0 - 46.0 fL CERNER MILLENNIUM RDW coefficient of variation 13.4 10.9 - 14.4 % CERNER MILLENNIUM Mean Platelet Volume 10.3 9.0 - 12.0 fL CERNER MILLENNIUM Blood specimen (specimen) 04/06/2012 9:08 AM EST 04/06/2012 9:10 AM EST Narrative Resulting Agency Comment Spec In Lab Chris Chatman MD HEMATOLOGY ORDERABLE S [facility] * (ABNORMAL) Hemoglobin A1c (04/06/2012 9:08 AM EST) Hemoglobin A1c 7.9(H) 4.3 - 6.1 % CERNER MILLENNIUM Estimated Average Glucose 180 mg/dL CERNER MILLENNIUM Comment: eAG equivalents for HbA1c percentages: HbA1c(%) [...] into estimated average glucose values. ??Diabetes Care 2008:31(8):0175-6187. Blood specimen (specimen) 04/06/2012 9:08 AM EST 04/06/2012 9:10 AM EST Narrative Resulting Agency Comment Spec In Lab Chris Chatman MD CHEMISTRY ORDERABLES [facility] * (ABNORMAL) Comprehensive metabolic panel (non-fasting) (04/06/2012 9:08 AM EST) Glucose 252(H) 60 - 199 mg/dL CERNER MILLENNIUM Comment:Diabetes: >=200 mg/d L plus symptoms Blood Urea Nitrogen 23(H) 8 - 18 mg/dL CERNER MILLENNIUM Creatinine 1.63(H) 0.70 - 1.20 mg/dL CERNER MILLENNIUM Comment: Please note that the pediatric reference intervals supplied above were not validated at [facility]. Results from pediatric patients should be interpreted in conjunction to the patient's age, height and muscle mass. Sodium 135 135 - 145 mmol/L CERNER MILLENNIUM Potassium 4.8 3.5 - 5.0 mmol/L CERNER MILLENNIUM Comment: Please note: ??Patients with WBC >100,000 may have falsely elevated Potassium levels. ??For accurate Potassium quantification in these patients send serum separator tube (gold top) for subsequent determinations. ??Contact the Clinical Chemistry Laboratory if there are any questions. Chloride 100 98 - 107 mmol/L CERNER MILLENNIUM Carbon Dioxide 28 22 - 31 mmol/L CERNER MILLENNIUM Anion Gap 7 5 - 15 mmol/L CERNER MILLENNIUM Calcium 9.5 8.5 - 10.5 mg/dL CERNER MILLENNIUM Protein, Total 7.4 6.4 - 8.3 gm/dL CERNER MILLENNIUM Albumin 4.1 3.2 - 5.2 gm/dL CERNER MILLENNIUM Aspartate Aminotransferase 29 0 - 30 unit/L CERNER MILLENNIUM Alanine Aminotransferase 27 0 - 30 unit/L CERNER MILLENNIUM Alkaline Phosphatase 107(H) 40 - 104 unit/L CERNER MILLENNIUM Bilirubin, Total 0.3 0.2 - 1.3 mg/dL CERNER MILLENNIUM Bilirubin, Direct 0.1 0.0 - 0.3 mg/dL CERNER MILLENNIUM Est Glomerular Filtration Rate 31(L) >=60 CERNER MILLENNIUM Comment: The National Kidney [...] J Am Soc Nephrol;6:1963-72. Blood specimen (specimen) 04/06/2012 9:08 AM EST 04/06/2012 9:10 AM EST Narrative Resulting Agency Comment Spec In Lab Chris Chatman MD CHEMISTRY ORDERABLES Performing Organization Address City/State/[facility] nm Phone Number [facility] documented in this encounter Visit Diagnoses Diagnosis Diabetes mellitus Type II or unspecified type diabetes mellitus without mention of complication, not stated as uncontrolled Type I (juvenile type) diabetes mellitus with neurological manifestations, not stated as uncontrolled(250.61) Type I (juvenile type) diabetes mellitus with neurological manifestations, not stated as uncontrolled Hyperlipidemia Other and unspecified hyperlipidemia documented in this encounter Care Teams Utility Forester Relationship Specialty Start Date End Date Alexander Adams MD [address] [place] [id number] PCP - General 04/06/12 07/26/23 documented as of this encounter
--- OUTSIDE RECORDS SUMMARY | 2024-02-15 22:05 | XMS_ITS | Encounter Summary ---
[place] [address] Care Team Providers Care Clinical Pharmacist Name Role Phone Neva Pugh MD Primary Care Provider [phone] Reason for Visit * Reason Onset Date Comments Medication Refill 08/27/2010 Encounter Details Date Type Department Care Team (Late st Contact Info) Description 08/27/2010 Refill [place] [address] Elisha Nichols MD [facility] [place] [address] Social History Tobacco Use Types Packs/Day Years Used Date Smoking Tobacco: Former Cigarettes Q uit: 06/20/1975 Alcohol Use Standard Drinks/Week Comments Not Asked 0 (1 standard drink = 0.6 oz pur e alcohol) Sex and Gender Information Value Date Recorded Sex Assigned at Not on file Gender Identity Not on file Sexual Orientation Not on file documented as of this encounter Plan of Treatment Upcoming Encounters Date Type Department Care Team (Late st Contact Info) Description 02/29/2024 10:00 AM EST Office Visit Cardiology at [address] [address] Ruben Small PA [facility] [place] [address] 04/26/2024 10:00 AM EST Hospital Encounter Non-Invasive Cardiology Lab [facility] [place] [address] Arrived 09/24/2024 4:00 PM EDT Office Visit Cardiology at [address] [place] [phone] Nathaniel Keita MD [facility] [place] [address] documented as of this encounter Visit Diagnoses Not on filedocumented in this encounter Care Teams Clinical Pharmacist Relationship Specialty Start Date End Date Neva Pugh MD [address] [place] [address] PCP - General 02/24/10 04/05/12 documented as of this encounter
--- OUTSIDE RECORDS SUMMARY | 2024-02-15 22:05 | XMS_ITS | Encounter Summary ---
[place] [address] Care Team Providers Care Parts Driver Name Role Phone Neva Pugh MD Primary Care Provider [phone] Reason for Visit * Reason Comments Diabetes Encounter Details Date Type Department Care Team (Late st Contact Info) Description 08/09/2011 12:30 PM EDT Office Visit [place] [address] Jaylin Salcido [facility] [place] [address] Diabetes mellitus; Hyperlipidemia Discharge Disposition: Home Social History Tobacco [...] Sign Reading Time Taken Comments Blood Pressure 114/52 08/09/2011 1:22 PM EDT Pulse 82 08/09/2011 1:22 PM EDT Temperature - - Respiratory Rate - - Oxygen Saturation - - Inhaled Oxygen Concentration - - Weight 89.6 kg (197 lb 9.6 oz) 08/09/2011 1:22 P M EDT Height 172.7 cm (5' 8) 08/09/2011 1:22 PM EDT Body Mass Index 30.04 08/09/2011 1:22 PM EDT documented in this encounter Patient Instructions * Patient Instructions* Jaylin Salcido APRN - 08/09/2011 1:56 PM EDT Discuss possible medication ( ambien) for insomnia Keep up the good work that you do managing glucose levels! documented in this encounter Progress Notes * Jaylin Salcido APRN - 08/09/2011 5:34 PM EDT DATE OF VISIT: 08/09/2011 REASON FOR VISIT: Follow up type 1 DM with complications of retinopathy, neuropathy, and history of cardiac arrest. BRIEF HISTORY: Presents for followup, states overall she feels well. DIABETES REGIMEN: MiniMed insulin pump, uses NovoLog. Basal rates 12 a.m. 1.05, 5 a.m. 1.1, 8 a.m. 1.15, 12 noon 1.1, 5:30 p.m. 1.1, 10 p.m. 1.0. Total basal 26.15. Total daily doses range from 39.55 to 27.95. 24-HOUR MEAL PLAN: Breakfast is Cheerios and toast. Lunch is a turkey sandwich. Dinner was turkey, potatoes, and green beans. PHYSICAL ACTIVITY: Tries to follow the recommendations from cardiac rehab. Prevention strategies are up-to-date. She takes Zocor and Diovan, has annual dilated eye exams, has podiatry care with Dr. King. REVIEW OF SYSTEMS: Depression and Mood: Overall is doing well. Eyes: Followed closely by customs import specialist, wears glasses. No recent headaches or chest pain or shortness of breath. No recent GI symptoms, takes Nexium. Sleep Pattern: She does have more shortness of breath than she was having previously. Extremities: Wearing a walking shoe prescribed by Dr. King, had a mole removed on her left foot and report came back suspicious. Plans to have a larger margin removed, has appointment scheduled with Dr. King and declines the foot exam today. PHYSICAL EXAMINATION: Appearance: She appears in good health. She is overweight. Weight today 197 pounds. Eyes: No retinopathy by green light exam. Neck: No thyromegaly or lymphadenopathy. Heart: Regular rate and rhythm. No murmurs. Lungs are clear to auscultation. Feet: Declines exam today. LAB DONE TODAY: Hemoglobin A1c, result not available during the office visit. Also, the patient's left second toe distal phalange has been amputated related to a hammertoe. Review of blood glucose results from memory; fasting glucose today was 100, no change in basal rates. No change in regimen until after the hemoglobin A1c result. Return to office in 90 days. Will recheck hemoglobin A1c and other labs that she is due for. She has an annual followup with dye and chemical coordinator and she plans to discuss her shortness of breath and the possibility of trial of Ambien for insomnia with Dr. Baesley. This was a 33-minute office visit with 32 minutes spent counseling with the patient in the management of glucose levels. She is proudly wearing her 50-year [employer] Insulin Medal for diabetes. In 90 days, we will check hemoglobin A1c and other labs that she is due for. documented in this encounter Plan of Treatment Upcoming Encounters Date Type Department Care Team (Late st Contact Info) Description 02/29/2024 10:00 AM EST Office Visit Cardiology at [address] [address] Ruben Hartman PA [facility] [place] [address] 04/26/2024 10:00 AM EST Hospital Encounter Non-Invasive Cardiology Lab [facility] [place] [address] Arrived 09/24/2024 4:00 PM EDT Office Visit Cardiology at [address] [place] [address] Nathaniel Keita MD [facility] [address] [place] [id number] documented as of this encounter Results * (ABNORMAL) LDL Cholesterol, Direct (12/02/2011 2:20 PM EDT) LDL Cholesterol, Direct 132(H) <=99 mg/dL [facility] Comment: The National Cholesterol Education Program (NCEP) has set the following guidelines for LDL Cholesterol: Reference range: ?? Optimal: ?<100 mg/dL ?? Near Optimal/Above Optimal: ?? 100-129 mg/dL ?? Borderline high: ?130-159 mg/dL ?? High: ? 160-189 mg/dL ?? Very high: ?>co=772 mg/dL REJI 2001: 28519):4356-4187 Blood specimen (specimen) 12/02/2011 2:20 PM EDT 12/02/2011 2:38 PM EDT Narrative Resulting Agency Comment Spec In Lab Chris Chatman MD CHEMISTRY ORDERABLES Performing Organization Address [facility] Co de Phone Number [facility] * TSH (12/02/2011 2:20 PM EDT) Thyroid Stimulating Hormone 0.78 0.27 - 4.20 mcIU/mL [facility] Blood specimen (specimen) 12/02/2011 2:20 PM EDT 12/02/2011 2:38 PM EDT Narrative Resulting Agency Comment Spec In Lab Chris Chatman MD CHEMISTRY ORDERABLES Performing Organization Address [facility]/State/ZIP Co de Phone Number [facility] * (ABNORMAL) Hemoglobin A1c (12/02/2011 2:20 PM EDT) Hemoglobin A1c 8.0(H) 4.3 - 6.1 % [facility] Estimated Average Glucose 183 mg/dL [facility] Comment: eAG equivalents for HbA1c [...] into estimated average glucose values. ??Diabetes Care 2008:31(8):4020-0680. Blood specimen (specimen) 12/02/2011 2:20 PM EDT 12/02/2011 2:38 PM EDT Narrative Resulting Agency Comment Spec In Lab Chris Chatman MD CHEMISTRY ORDERABLES [facility] * (ABNORMAL) Comprehensive metabolic panel (non-fasting) (12/02/2011 2:20 PM EDT) Glucose 110 60 - 199 mg/dL [facility] Comment:Diabetes: >=200 mg/d L plus symptoms Blood Urea Nitrogen 21(H) 8 - 18 mg/dL [facility]NI[facility] Creatinine 1.11 0.70 - 1.20 mg/dL [facility] MILLENNI[facility] Comment: Please note that the pediatric reference intervals supplied above were not validated at [facility]. Results from pediatric patients should be interpreted in conjunction to the patient's age, height and muscle mass. Sodium 138 135 - 145 mmol/L [facility] Potassium 4.7 3.5 - 5.0 mmol/L [facility] Comment: [...] - 10.5 mg/dL [facility] Protein, Total 7.5 6.4 - 8.3 gm/dL [facility] Albumin 4.3 3.2 - 5.2 gm/dL [facility] Aspartate Aminotransferase 53(H) 0 - 30 unit/L [facility] Alanine Aminotransferase 55(H) 0 - 30 unit/L [facility] Alkaline Phosphatase 135(H) 40 - 104 unit/L [facility] Bilirubin, Total 0.3 0.2 - 1.3 mg/dL [facility] Bilirubin, Direct 0.1 0.0 - 0.3 mg/dL [facility] Est Glomerular Filtration Rate 49(L) >=60 [facility]ERN[facility] MILLENNIUM Comment: The National Kidney [...] with diabetic kidney disease. References: http://nkdep.nih.gov/resources/NKDEP_Suggestn4Labs_0606_508.pdf http://www.kidney.org/professionals/kls/pdf/faq_gfr.pdf Aazr K, Phylicia NA, Cristobal AK, Bob TS, Anup AD, Luis Daniel BENJAMIN. Relative performance of the MDRD and CKD-EPI equations for estimating glomerular filtration rate among patients with varied clinical presentations. Clin J Am Soc Nephrol;6:1963-72. Blood specimen (specimen) 12/02/2011 2:20 PM EDT 12/02/2011 2:38 PM EDT Narrative Resulting Agency Comment Spec In Lab Chris Chatman MD CHEMISTRY ORDERABLES Performing Organization Address City/State/[facility] Co ri Phone Number [facility] documented in this encounter Visit Diagnoses Diagnosis Diabetes mellitus Type II or unspecified type diabetes mellitus without mention of complication, not stated as uncontrolled Hyperlipidemia Other and unspecified hyperlipidemia documented in this encounter Care Teams Parts Driver Relationship Specialty Start Date End Date Neva Pugh MD [address] [place] [address] PCP - General 02/24/10 04/05/12 documented as of this encounter
--- OUTSIDE RECORDS SUMMARY | 2024-02-15 22:05 | XMS_ITS | Encounter Summary ---
[place] [address] Care Team Providers Care Social Secretary Name Role Phone Neva Pugh MD Primary Care Provider [phone] Reason for Visit * Reason Comments Medication Refill Encounter Details Date Type Department Care Team (Late st Contact Info) Description 01/14/2012 Refill [place] [address] Elisha Nichols MD [facility] [place] [address] Social History Tobacco Use Types Packs/Day Years [...] AM EST Office Visit Cardiology at [address] [phone] Ruben Hartman, PA [facility] [place] [address] 04/26/2024 10:00 AM EST Hospital Encounter Non-Invasive Cardiology Lab [facility] [place] [address] Arrived 09/24/2024 4:00 PM EDT Office Visit Cardiology at [address] [place] [address] Nathaniel Keita MD [facility] [place] [address] documented as of this encounter Visit Diagnoses Not on filedocumented in this encounter Care Teams Social Secretary Relationship Specialty Start Date End Date Neva Pugh MD [address] [place] [address] PCP - General 02/24/10 04/05/12 documented as of this encounter
--- OUTSIDE RECORDS SUMMARY | 2024-02-15 22:05 | XMS_ITS | Encounter Summary ---
[place] [address] Care Team Providers Care Garment Cutter Name Role Phone Neva Pugh MD Primary Care Provider [phone] Reason for Visit * Reason Onset Date Comments Medication Refill 01/20/2012 Encounter Details Date Type Department Care Team (Late st Contact Info) Description 01/20/2012 Refill [place] [address] Elisha Nichols MD [facility] [place] [address] Social History Tobacco Use Types Packs/Day Years [...] AM EST Office Visit Cardiology at [address] [place] [phone] Ruben Hartman PA [facility] [place] [address] 04/26/2024 10:00 AM EST Hospital Encounter Non-Invasive Cardiology Lab [facility] [place] [address] Arrived 09/24/2024 4:00 PM EDT Office Visit Cardiology at [address] [place] [address] Nathaniel Keita MD [facility] [place] [address] documented as of this encounter Visit Diagnoses Not on filedocumented in this encounter Care Teams Garment Cutter Relationship Specialty Start Date End Date Neva Pugh MD [address] [place] [address] PCP - General 02/24/10 04/05/12 documented as of this encounter
--- OUTSIDE RECORDS SUMMARY | 2024-02-15 22:05 | XMS_ITS | Encounter Summary ---
[place] [address] Care Team Providers Care Group Home Worker Name Role Phone Neva Pugh MD Primary Care Provider [phone] Reason for Visit * Reason Onset Date Comments Medication Refill 01/20/2012 Encounter Details Date Type Department Care Team (Late st Contact Info) Description 01/20/2012 [place] [address] Elisha Nichols MD [facility] [place] [address] Social History Tobacco Use Types Packs/Day Years [...] AM EST Office Visit Cardiology at [address] [place] [phone] Ruben Hartman PA [facility] [place] [address] 04/26/2024 10:00 AM EST Hospital Encounter Non-Invasive Cardiology Lab [facility] [place] [address] Arrived 09/24/2024 4:00 PM EDT Office Visit Cardiology at [address] [place] [address] Nathaniel Keita MD [facility] [place] [address] documented as of this encounter Visit Diagnoses Not on filedocumented in this encounter Care Teams Group Home Worker Relationship Specialty Start Date End Date Neva Pugh MD [address] [place] [address] PCP - General 02/24/10 04/05/12 documented as of this encounter
--- OUTSIDE RECORDS SUMMARY | 2024-02-15 22:05 | XMS_ITS | Encounter Summary ---
[place] [address] Care Team Providers Care Test Rider Name Role Phone Neva Pugh MD Primary Care Provider [phone] Encounter Details Date Type Department Care Team (Late st Contact Info) Description 08/05/2011 External Results [place] [address] Neva Pugh MD [address] [place] [phone] Social History Tobacco Use Types Packs/Day Years [...] AM EST Office Visit Cardiology at [address] [place] [address] Ruben Hartman, PA [facility] [address] 04/26/2024 10:00 AM EST Hospital Encounter Non-Invasive Cardiology Lab [facility] [place] [address] Arrived 09/24/2024 4:00 PM EDT Office Visit Cardiology at [address] [place] [address] Nathaniel Keita MD [facility] [place] [address] documented as of this encounter Procedures Procedure Name Priority Date/Time Associated Diagnosis Comments EP DEVICE SCAN Routine 07/20/2011 documented in this encounter Results * Scan Doc: EP Device (07/20/2011) Anatomical Region Laterality Modality Other Neva Pugh MD MEDIA MGR SCAN EXT O RDR/RSLT documented in this encounter Visit Diagnoses Not on filedocumented in this encounter Care Teams Test Rider Relationship Specialty Start Date End Date Neva Pugh MD [address] [place] [address] PCP - General 02/24/10 04/05/12 documented as of this encounter
--- OUTSIDE RECORDS SUMMARY | 2024-02-15 22:05 | XMS_ITS | Encounter Summary ---
[place] [address] Care Team Providers Care Doctor Of Naprapathic Medicine Name Role Phone Neva Pugh MD Primary Care Provider [phone] Reason for Visit * Reason Comments Atrial Fibrillation Encounter Details Date Type Department Care Team (Late st Contact Info) Description 01/25/2011 12:40 PM EDT Follow-Up Cardiology at [address] [phone] Candie Valiente PA [facility] [place] [address] Ventricular fibrillation (Primary Dx) Discharge Disposition: Home Social History [...] Sign Reading Time Taken Comments Blood Pressure 138/82 01/25/2011 12:41 PM EDT Pulse 86 01/25/2011 12:41 PM EDT Temperature - - Respiratory Rate - - Oxygen Saturation - - Inhaled Oxygen Concentration - - Weight 88.5 kg (195 lb) 01/25/2011 12:41 PM EDT Height 170.2 cm (5' 7) 01/25/2011 12:41 PM EDT Body Mass Index 30.54 01/25/2011 12:41 PM EDT documented in this encounter Progress Notes * Candie Valiente PA - 01/25/2011 1:30 PM EDT ICD Clinic Follow-up Ms. Cole is a 64 year old female who presents to the clinic today for routine ICD interrogation. The ICD was implanted 07/01/09 due to Secondary prevention s/p ventricular fibrillation cardiac arrest. She has no device related complaints. [place] dizzy over the summer. Her precise winder, Milind Beasley,changed her lasix to PRN and now she has been much better. She denies chest pain, dizziness, syncope or near-syncope. Pt enrolled in SLS study. Implanting EPS MD: Norm Garcia MD PCP: Neva Pugh MD Patient Active Problem List Diagnoses ??? Ventricular fibrillation 06/21/2009 [facility]--- VF presenting, ROSC post shock by EMS, intubated; Dual chamber ICD - 07/02/2009 Medtronic John II VR Model# [id number], Serial# [id number] ??? CHD, s/p arrest and 2v CABG in 2009, preserved LV function 06/11: out of hospital cardiac VF arrest. cath >> 3vD and EDP 30, >> 2v CABG (Dr. Bonilla) and ICD implantation, EF 50-60% with diastolic dysfunction and large bilateral pleural effusions noted at time of surgery. Diuretic resistant. ??? GERD (gastroesophageal reflux disease) ??? Hypertension ??? Diabetes mellitus type 1 2. 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 - neuropathy of her bilateral feet - proliferative retinopathy, which has been treated with laser surgery, - microalbuminuria - Insulin pump Device and lead information Final Parameters: Ventricular lead: Medtronic Sprint Quattro Model# 6947-58 cm Serial #[id number] Bipolar, steroid-tipped, active-fixation IS-1, DF-1 lead Access: Left axillary vein Location: Right ventricular apex R wave, ICD: 8.0 mV Pacing threshold, ICD: 1.0 V at 0.5 ms Impedance, ICD: 532 ohms HVB Impedance 33 ohms SVC Impedance 39 ohms Pace the diaphragm at 10 V: No Pulse generator: Medtronic John II VR Model# [id number] Serial# [id number] Single-chamber ICD Location: Subcutaneous Parameters: VF detection rate: >200bpm VF therapy: ATP during charging,30J,35Jx5 FVT detection rate: 200-250bpm FVT therapy: Burst(1),30J,35Jx4 VT detection rate:182-200bpm VT therapy:Burst(3),20J,35Jx4 Enhancement: Wavelet, VT Monitor Bradycardia pacing: VVI 40 Short V-V intervals: 0 Pacing percentages: VS 100% Histogram is well distributed. Underlying rhythm: SR 80bpm WV 200ms (pt states this is normal for her) Follow-up Battery status: 3.16V KP: 2.63V Charge time: 8.1 sec; Last Full Charge: 12/31/10 Pace/Sensing Leads -Right Ventricular: R wave: 5.0mV Threshold: 1.0V at 0.4ms Impedance: 684 ohms EGM quality: clean -Shocking leads: V Defib impedance: 47 ohms SVC (HVX) impedance: 61 ohms EGM quality: clean Therapy Administered: None Events: 6 NS Monitored VT episodes 5-8 beat runs, avg V rate 171-211bpm Wound/generator site: well healed L chest good skin thickness Impression: Appropriate ICD function. Changes made this session: None Plan: 1. RTC in 6 mos. Apr, 2011, please coordinate with Dr Nichols appt. 2. [facility] in July 2011. Provider: Candie Valiente Provider #: [id number] Consult attending physician: Norm Garcia MD documented in this encounter Plan of Treatment Upcoming Encounters Date Type Department Care Team (Late st Contact Info) Description 02/29/2024 10:00 AM EST Office Visit Cardiology at [address] [place] [address] Ruben Hartman PA [facility] [place] [address] 04/26/2024 10:00 AM EST Hospital Encounter Non-Invasive Cardiology Lab [facility] [place] [address] Arrived 09/24/2024 4:00 PM EDT Office Visit Cardiology at [address] [place] [address] Nathaniel Keita MD [facility] [place] [address] documented as of this encounter Visit Diagnoses Diagnosis Ventricular fibrillation- Primary documented in this encounter Care Teams Doctor Of Naprapathic Medicine Relationship Specialty Start Date End Date Neva Pugh MD [address] [place] [address] PCP - General 02/24/10 04/05/12 documented as of this encounter
--- OUTSIDE RECORDS SUMMARY | 2024-02-15 22:05 | XMS_ITS | Encounter Summary ---
[place] [address] Care Team Providers Care Sugar Drier Name Role Phone Neva Pugh MD Primary Care Provider [phone] Reason for Visit * Reason Comments PDR 1 yr PDR OU Encounter Details Date Type Department Care Team (Late st Contact Info) Description 01/06/2012 10:30 AM EDT Follow-[place] [phone] Melissa Cleary MD PDR (proliferative diabetic retinopathy) [...] Progress Notes * Melissa Cleary MD - 01/06/2012 11:37 AM EDT Stable PDR OU, with full PRP and complete involution. Plan: RTC 1 yr. documented in this encounter Nursing Notes * 01/06/2012 10:30 AM EDT >> MELISSA CLEARY MD [facility] Jan 06, 2012 11:36 AM PDR post PRP with fine involution OU. >> Parker Ferguson [facility] Jan 06, 2012 10:31 AM 1 yr PDR OU ck, s/p PRP OU, states no change with vision, denies pain/flashes/floaters. documented in this encounter Plan of Treatment Upcoming Encounters Date Type Department Care Team (Late st Contact Info) Description 02/29/2024 10:00 AM EST Office Visit Cardiology at [address] [phone] Ruben Hartman PA [facility] [place] [address] 04/26/2024 10:00 AM EST Hospital Encounter Non-Invasive [place] [address] Arrived 09/24/2024 4:00 PM EDT Office Visit Cardiology at [address] [phone] Nathaniel Keita MD [facility] [place] [address] documented as of this encounter Visit Diagnoses Diagnosis PDR (proliferative diabetic retinopathy)- Primary Type II or unspecified type diabetes mellitus with ophthalmic manifestations, not stated as uncontrolled documented in this encounter Care Teams Sugar Drier Relationship Specialty Start Date End Date Neva Pugh MD [address] [place] [address] PCP - General 02/24/10 04/05/12 documented as of this encounter
--- OUTSIDE RECORDS SUMMARY | 2024-02-15 22:05 | XMS_ITS | Encounter Summary ---
[place] [address] Care Team Providers Care Hospital Account Manager Name Role Phone Neva Pugh MD Primary Care Provider [phone] Reason for Visit * Reason Onset Date Comments Medication Refill 12/13/2011 Encounter Details Date Type Department Care Team (Late st Contact Info) Description 12/13/2011 [place] [address] Elisha Nichols MD [facility] [place] [address] Social History Tobacco Use Types Packs/Day Years [...] AM EST Office Visit Cardiology at [address] [place] [phone] Ruben Hartman PA [facility] [address] 04/26/2024 10:00 AM EST Hospital Encounter Non-Invasive Cardiology Lab [facility] [place] [address] Arrived 09/24/2024 4:00 PM EDT Office Visit Cardiology at [address] [place] [address] Nathaniel Keita MD [facility] [address] documented as of this encounter Visit Diagnoses Not on filedocumented in this encounter Care Teams Hospital Account Manager Relationship Specialty Start Date End Date Neva Pugh MD [address] [place] [address] PCP - General 02/24/10 04/05/12 documented as of this encounter
--- OUTSIDE RECORDS SUMMARY | 2024-02-15 22:05 | XMS_ITS | Encounter Summary ---
[place] [address] Care Team Providers Care Aquatics Group Fitness Instructor Name Role Phone Neva Pugh MD Primary Care Provider [phone] Encounter Details Date Type Department Care Team (Late st Contact Info) Description 01/25/2011 10:30 AM EDT Office [place] [phone] Elisha Nichols MD [facility] [place] [address] Diabetes; Hypertension; DM type 1 (diabetes mellitus, type 1) [...] Time Taken Comments Blood Pressure 138/82 01/25/2011 12:31 PM EDT Pulse - - Temperature - - Respiratory Rate - - Oxygen Saturation - - Inhaled Oxygen Concentration - - Weight - - Height - - Body Mass Index - - documented in this encounter Patient Instructions * Patient Instructions* Elisha Nichols MD - 01/25/2011 12:08 PM EDT Recent Results (from the past 24 hour(s)) HEMOGLOBIN A1C Component Value Range ??? Hemoglobin A1C 7.9 (*) 4.3 - 6.1 (%) ??? Est Avg Gluc 180 (mg/dL) I'll let you know the results of the lab tests documented in this encounter Progress Notes * Elisha Nichols MD - 01/25/2011 12:55 PM EDT DATE OF : 1945 PRIMARY CARE PROVIDER: Neva Pugh M.D. Ms. Cole is here for a followup of her very long-standing type 1 diabetes. Hemoglobin A1c in October was 8.2%. Since then she has had a couple of problems. She has had a hammertoe and had surgery on that a couple of weeks ago. Blood sugars were running high perioperatively. She also had a severe UTI in the end of December and blood sugars were running high a couple of days with that as well, so she expects her hemoglobin A1c will be up. Otherwise, fasting sugars are usually 60 to 100, lunchtime 100 to 140, supper 90 to 120, in bedtime she tries to keep them above 140. If they are below that, she will have a gram cracker for snack. Her diet is unchanged. For breakfast, whole grain cereals and skimmed milk. For lunch, a sandwich or half a sandwich and fruits or a yogurt. Supper usually a meat, vegetable, and a fruit. Last night she had a buffet for her 's 69th birthday, so just had a couple of pieces of turkey and cheese and a little bit of macaroni and cheese. Evening snack only if she is low at bedtime. She is on the [employer] pump, it is about six years old and is giving her some trouble, not alarming appropriately or recording all the insulin she injects, so we will give her the numbers to be in touch with [employer] and she will arrange for a new pump. Her basal rate, midnight 1.0; 5 a.m. 1.05; 8 a.m. 1.15; noon 1.10; 5:30 p.m. 1.15; 10 p.m. 0.95 for a daily dose of 25.85. Carb ratio 1 per 14 g. Correction factor of 30. COMPLICATIONS: She is up to date with her dentist. Had her eyes examined in 12/2010, has involutional proliferative retinopathy. Microalbumin is pending from today. Creatinine 1.15 in 10/2010. Neuropathy, she has Charcot changes in both feet. Cardiovascular: She has a pacemaker defibrillator. No angina. Lipids, 07/2010, LDL cholesterol 113. She does not tolerate a higher dose of simvastatin. DIABETIC HEALTH MAINTENANCE: Beta-Taryn: Toprol 25 mg a day. Aspirin: 81 mg. ARB: Diovan 40 mg. Statin: Simvastatin 20 mg. Flu Shot: She will get in February. SHE IS ALLERGIC TO THE PNEUMOVAX. She is a nonsmoker. TSH 0.68 in 10/2010. Clinically, she is really feeling very well. Current outpatient prescriptions ordered prior to encounter Medication Sig Dispense Refill ??? furosemide (LASIX) 20 mg tablet Take by mouth daily as needed. Mon/tue/fri Indications: Hypertension 90 tablet 3 ??? insulin aspart (NOVOLOG) 100 unit/mL vial injection Inject 50-60 Units subcutaneously daily. 60mL PRN ??? traMADol-acetaminophen (ULTRACET) 37.5-325 mg per tablet Take 1 tablet by mouth 2 times daily as needed for Pain. 40 tablet PRN ??? esomeprazole (NEXIUM) 40 mg capsule Take 1 capsule by mouth daily. 90 capsule 3 ??? metoprolol succinate (TOPROL-XL) 25 mg 24 hr tablet Take 1 tablet by mouth daily. 90 tablet 3 ??? simvastatin (ZOCOR) 20 mg tablet Take 1 tablet by mouth nightly. 90 tablet 3 ??? Insulin [place], Disposable, (BD INSULIN PEN NEEDLE UF SHORT) 31 X 516 Ndle by [facility].(Non-Drug; Combo Route) route. ??? SUBCUTANEOUS INSULIN PUMP (INSULIN PUMP [id number] [facility] [place]) by [facility].(Non-Drug; Combo Route) route. ??? aspirin 81 mg chewable tablet Take 81 mg by mouth daily. ??? acetaminophen (TYLENOL) 325 mg tablet Take 650 mg by mouth every 4 hours as needed. ??? valsartan (DIOVAN) 40 mg tablet Take 1 tablet by mouth daily. 90 tablet 3 ??? multivitamin (DAILY MULTIPLE) tablet ??? glucagon, human recombinant, 1 mg injection as directed IM PRN ??? thiamine (VITAMIN B-1) 250 mg tablet 250 mg PO Once daily ??? Pyridoxine (VITAMIN B-6) 200 mg Tab 200 mg PO Once daily ??? insulin glargine (LANTUS) 100 unit/mL injection 22 units SQ prn pump failure ??? DOCOSAHEXANOIC ACID/EPA (FISH OIL ORAL) ??? Cholecalciferol, Vitamin D3, (VITAMIN D) 1,000 unit Cap ??? senna-docusate (SENOKOT-S) 8.6-50 mg per tablet 2 Tablet(s), PO, Once daily,PRN Allergies Allergen Reactions ??? Lisinopril Anaphylaxis ??? Ibandronate Sodium multiple joint aches and edema ??? Amiodarone Other (See Comments) fatigue and dsypnea ??? Codeine Phos Nausea And Vomiting ??? Propoxyphene N-acetaminophen Nausea And Vomiting ??? Adhesive Tape ??? Kiwi (Actinidia Chinensis) Other (See Comments) SWELLING AND RASH ??? Alendronate Sodium Other (See Comments) chest pain ??? Celecoxib Nausea And Vomiting Nausea/Vomiting ??? Gabapentin Nausea And Vomiting ??? Ezetimibe Lipid Results Elevated with 40 MG dosage On physical exam, blood pressure was 138/82 (at home it runs 100 to 110 over 55 to 70). In fact, she had to lower her Lasix to three times a week instead of daily because she was having some orthostatic symptoms. In general, she looks well. Her skin is smooth and warm and dry. She has a dressing on her left foot which I did not take down but she had it looked at earlier this week, and her lesion was healing well. Right Foot: She has minimal callus and Charcot changes. Cardiovascular: 2+ pulses. No peripheral edema. On neurologic exam, she has marked decrease to light touch sensation to the knees. LABORATORY TEST: Hemoglobin A1c 7.9%. Microalbumin is pending. IMPRESSION/PLAN: Diabetes remains in very good control. Expect the high blood sugars related to the surgery and the urinary tract infections explain the A1c being a little on the high side. We will continue her current insulin setting for now. We will see her in followup in three months with hemoglobin A1c in the quick draw lab. Recent Results (from the past 72 hour(s)) HEMOGLOBIN A1C Component Value Range ??? Hemoglobin A1C 7.9 (*) 4.3 - 6.1 (%) ??? Est Avg Gluc 180 (mg/dL) MICROALBUMIN, URINE, RANDOM Component Value Range ??? U Creatinine 20 (mg/dL) ??? U Ran Malb Conc 4.8 (mg/L) ??? U Ran Malb Calc 24 (mcg/mg Cr) documented in this encounter Plan of Treatment Upcoming Encounters Date Type Department Care Team (Late st Contact Info) Description 02/29/2024 10:00 AM EST Office Visit Cardiology at [address] [address] Ruben Hartman PA [facility] [address] 04/26/2024 10:00 AM EST Hospital Encounter Non-Invasive [place] [address] Arrived 09/24/2024 4:00 PM EDT Office Visit Cardiology at [address] [address] Nathaniel Keita MD [facility] [address] documented as of this encounter Procedures Procedure Name Priority Date/Time Associated Diagnosis Comments U ALBUMIN/CRE RATIO Routine 01/25/2011 1 1:13 AM EDT Diabetes HEMOGLOBIN A1C Routine 01/25/2011 10:40 AM EDT Diabetes documented in this encounter Results * (ABNORMAL) Hemoglobin A1c (04/29/2011 12:03 PM EST) Hemoglobin A1c 8.3(H) 4.3 - 6.1 % [facility] Estimated Average Glucose 192 mg/dL [facility] Comment: eAG equivalents for [...] into estimated average glucose values. ??Diabetes Care 2008:31(8):4914-7034. Blood specimen (specimen) 04/29/2011 12:03 PM EST 04/29/2011 12:09 PM EST Elisha Nichols MD CHEMISTRY ORDERAB LES [facility] * Microalbumin, urine, random (01/25/2011 11:13 AM EDT) Creatinine, Urine 20 mg/dL [facility] Albumin, Urine 4.8 mg/L CERNE R MILLENNIUM Albumin / Creatinin Ratio, Urine 24 mcg/mg Cr [facility] Comment: Reference Range* Random collection (mcg/mg creatinine) Normal ?<30 Microalbuminuria ?? 30 - 300 Clinical Albuminuria ?? >300 *[place] Diabetes [employer]. Diabetic Nephropathy. Diabetes Care 1997;(Suppl 1):S24-S27 Exercise within 24 hour, infection, fever, CHF, marked hyperglycemia, and marked hypertension may elevate urinary albumin excretion over baseline values. Urine specimen (specimen) 01/25/2011 11:13 AM EDT 01/25/2011 11:25 AM EDT Chris Chatman MD URINE ORDERABLES [facility] * (ABNORMAL) Hemoglobin A1c (01/25/2011 10:40 AM EDT) Hemoglobin A1c 7.9(H) 4.3 - 6.1 % [facility] Estimated Average Glucose 180 mg/dL [facility] Comment: eAG equivalents for HbA1c percentages: HbA1c(%) [...] into estimated average glucose values. ??Diabetes Care 2008:31(8):4460-3512. Blood specimen (specimen) 01/25/2011 10:40 AM EDT 01/25/2011 11:00 AM EDT Chris Chatman MD CHEMISTRY ORDERABLES [facility] documented in this encounter Visit Diagnoses Diagnosis Diabetes Type II or unspecified type diabetes mellitus without mention of complication, not stated as uncontrolled Hypertension Unspecified essential hypertension DM type 1 (diabetes mellitus, type 1) Type I (juvenile type) diabetes mellitus without mention of complication, not stated as uncontrolled documented in this encounter Care Teams Aquatics Group Fitness Instructor Relationship Specialty Start Date End Date Neva Pugh MD [address] [place] [address] PCP - General 02/24/10 04/05/12 documented as of this encounter
--- OUTSIDE RECORDS SUMMARY | 2024-02-15 22:05 | XMS_ITS | Encounter Summary ---
[place] [address] Care Team Providers Care Dress Operator Name Role Phone Alexander Adams MD Primary Care Provider [phone] Reason for Visit * Reason Comments Medication Refill Encounter Details Date Type Department Care Team (Late st Contact Info) Description 06/07/2012 [place] [phone] Elisha Nichols MD [facility] [place] [address] Social History Tobacco Use Types Packs/Day Years [...] Telephone Encounter - Stella Hernandez LPN - 06/08/2012 8:18 AM EST Called patient test strips not needed. Rx needed for glucometer as it documented in this encounter Plan of Treatment Upcoming Encounters Date Type Department Care Team (Late st Contact Info) Description 02/29/2024 10:00 AM EST Office Visit Cardiology at [address] [address] Ruben Hartman PA [facility] [place] [address] 04/26/2024 10:00 AM EST Hospital Encounter Non-[place] [address] Arrived 09/24/2024 4:00 PM EDT Office Visit Cardiology at [address] [phone] Nathaniel Keita MD [facility] [address] documented as of this encounter Visit Diagnoses Not on filedocumented in this encounter Care Teams Dress Operator Relationship Specialty Start Date End Date Alexander Adams MD [address] [place] [address] PCP - General 04/06/12 07/26/23 documented as of this encounter
--- OUTSIDE RECORDS SUMMARY | 2024-02-15 22:05 | XMS_ITS | Encounter Summary ---
[place] [address] Care Team Providers Care Cider Maker Name Role Phone Neva Pugh MD Primary Care Provider [phone] Reason for Visit * Reason Comments Pacemaker Problem rotary check Encounter Details Date Type Department Care Team (Late st Contact Info) Description 07/20/2010 2:40 PM EDT Follow-Up Cardiology at [address] [phone] Lauren Cook, RN Ventricular fibrillation (Primary Dx) Discharge Disposition: Home [...] Reading Time Taken Comments Blood Pressure 118/60 07/20/2010 2:47 PM EDT Pulse 76 07/20/2010 2:47 PM EDT Temperature - - Respiratory Rate - - Oxygen Saturation - - Inhaled Oxygen Concentration - - Weight 90.3 kg (199 lb) 07/20/2010 2:47 PM EDT Height 172.7 cm (5' 8) 07/20/2010 2:47 PM EDT Body Mass Index 30.26 07/20/2010 2:47 PM EDT documented in this encounter Progress Notes * Lauren Cook - 07/20/2010 3:31 PM EDT ICD Clinic Follow-up Ms. Cole is a 64 year old female who presents to the clinic today for routine ICD interrogation. The ICD was implanted 07/01/09 due to Secondary prevention s/p ventricular fibrillation cardiac arrest. She reports is slowly beginning to return to normal activities but continues to feel fatigued, however she reports feeling fatigued prior to getting her device. Pt enrolled in SLS study. Implanting EPS MD: Norm Garcia MD PCP: Neva Pugh MD Device and lead information Final Parameters: Ventricular lead: Medtronic Sprint Quattro Model# 6947-58 cm Serial #[id number] Bipolar, steroid-tipped, active-fixation IS-1, DF-1 lead Access: Left axillary vein Location: Right ventricular apex R wave, ICD: 8.0 mV Pacing threshold, ICD: 1.0 V at 0.5 ms Impedance, ICD: 532 ohms HVB Impedance 33 ohms SVC Impedance 39 ohms Pace the diaphragm at 10 V: No Pulse generator: Medtronic John II VR Model# [id number] Serial# [id number] Single-chamber ICD Location: Subcutaneous Parameters: VF detection rate: >200bpm VF therapy: ATP during charging,30J,35Jx5 FVT detection rate: 200-250bpm FVT therapy: Burst(1),30J,35Jx4 VT detection rate:182-200bpm VT therapy:Burst(3),20J,35Jx4 Enhancement: Wavelet, VT Monitor Bradycardia pacing: VVI 40 Pacing percentages: VS 100% Histogram is well distributed. Underlying rhythm: SR 80bpm MI 200ms (pt states this is normal for her) Follow-up Battery status: 3.18V KP: 2.63V Charge time: 8.0sec; Last Full Charge: 07/02/10 Pace/Sensing Leads -Right Ventricular: R wave: 3.3-3.4mV per device, 4.0-4.5mV measured Threshold: 1.0V at 0.4ms Impedance: 703 ohms EGM quality: clean -Shocking leads: V Defib impedance: 45 ohms SVC (HVX) impedance: 58 ohms EGM quality: clean Therapy Administered: None Events: 6 Monitored VT episodes 5-8 beat runs, avg V rate 188-214bpm. Wound/generator site: well healed L chest good skin thickness Impression: Appropriate ICD function. Changes made this session: None Plan: 1. RTC in 6 mos. 01/12, please coordinate with Dr Nichols appt. 2. [facility] in October 2010 Provider: Lauren Cook, RN Provider #: [id number] Consult attending physician: Donavan De La O MD documented in this encounter Plan of Treatment Upcoming Encounters Date Type Department Care Team (Late st Contact Info) Description 02/29/2024 10:00 AM EST Office Visit Cardiology at [address] [phone] Ruben Hartman PA [facility] [place] [address] 04/26/2024 10:00 AM EST Hospital Encounter Non-Invasive [place] [address] Arrived 09/24/2024 4:00 PM EDT Office Visit Cardiology at [address] [phone] Nathaniel Keita MD [facility] [place] [address] documented as of this encounter Visit Diagnoses Diagnosis Ventricular fibrillation- Primary documented in this encounter Care Teams Cider Maker Relationship Specialty Start Date End Date Neva Pugh MD [address] [place] [address] PCP - General 02/24/10 04/05/12 documented as of this encounter
--- OUTSIDE RECORDS SUMMARY | 2024-02-15 22:05 | XMS_ITS | Encounter Summary ---
[place] [address] Care Team Providers Care Ship Fastener Name Role Phone Neva Pugh MD Primary Care Provider [phone] Encounter Details Date Type Department Care Team (Late st Contact Info) Description 10/22/2010 Orders Only Cardiology at [address] [phone] Neva Pugh MD [address] [place], [place] [id number] Social History Tobacco Use Types Packs/Day Years Used Date Smoking Tobacco: Former Cigarettes Q uit: 06/20/1975 Smokeless Tobacco: Never Alcohol Use Standard Drinks/Week Comments Not Asked [...] 10:00 AM EST Office Visit Cardiology at [address] [phone] Ruben Hartman, PA [facility] [place] [address] 04/26/2024 10:00 AM EST Hospital Encounter Non-Invasive Cardiology Lab [facility] [place] [address] Arrived 09/24/2024 4:00 PM EDT Office Visit Cardiology at [address] [place] [phone] Nathaniel Keita MD [facility] [place] [place] [address] documented as of this encounter Procedures Procedure Name Priority Date/Time Associated Diagnosis Comments EP DEVICE SCAN Routine 10/20/2010 documented in this encounter Results * Scan Doc: EP Device (10/20/2010) Anatomical Region Laterality Modality Other Neva Pugh MD MEDIA MGR SCAN EXT O RDR/RSLT documented in this encounter Visit Diagnoses Not on filedocumented in this encounter Care Teams Ship Fastener Relationship Specialty Start Date End Date Neva Pugh MD [address] [place] [address] PCP - General 02/24/10 04/05/12 documented as of this encounter
--- OUTSIDE RECORDS SUMMARY | 2024-02-15 22:05 | XMS_ITS | Encounter Summary ---
[place] [address] Care Team Providers Care Sport Psychologist Name Role Phone Neva Pugh MD Primary Care Provider Encounter Details Date Type Department Care Team (Late st Contact Info) Description 01/05/2012 [place] [address] Melissa Cleary MD Social History Tobacco Use [...] AM EST Office Visit Cardiology at [address] [phone] Ruben Hartman, [facility] [place] [address] 04/26/2024 10:00 AM EST Hospital Encounter Non-Invasive Cardiology Lab [facility] [place] [address] Arrived 09/24/2024 4:00 PM EDT Office Visit Cardiology at [address] [place] [address] Nathaniel Keita MD [facility] [place] [address] documented as of this encounter Visit Diagnoses Not on filedocumented in this encounter Care Teams Sport Psychologist Relationship Specialty Start Date End Date Neva Pugh MD [address] [place] [address] PCP - General 02/24/10 04/05/12 documented as of this encounter
--- OUTSIDE RECORDS SUMMARY | 2024-02-15 22:05 | XMS_ITS | Encounter Summary ---
[place] [address] Care Team Providers Care Branch Services Manager Name Role Phone Neva Pugh MD Primary Care Provider [phone] Reason for Visit * Reason Comments Medication Refill Encounter Details Date Type Department Care Team (Late st Contact Info) Description 01/11/2012 [place] [address] Elisha Nichols MD [facility] [place] [address] Social History Tobacco Use Types Packs/Day Years [...] AM EST Office Visit Cardiology at [address] [phone] Ruben Hartman, PA [facility] [place] [address] 04/26/2024 10:00 AM EST Hospital Encounter Non-Invasive Cardiology Lab [facility] [place] [address] Arrived 09/24/2024 4:00 PM EDT Office Visit Cardiology at [address] [place] [phone] Nathaniel Keita MD [facility] [address] documented as of this encounter Visit Diagnoses Not on filedocumented in this encounter Care Teams Branch Services Manager Relationship Specialty Start Date End Date Neva Pugh MD [address] [place] [address] PCP - General 02/24/10 04/05/12 documented as of this encounter
--- OUTSIDE RECORDS SUMMARY | 2024-02-15 22:05 | XMS_ITS | Encounter Summary ---
[place] [address] Care Team Providers Care What Job Titles Mean Name Role Phone Alexander Adams MD Primary Care Provider [phone] Encounter Details Date Type Department Care Team (Late st Contact Info) Description 04/25/2012 External Results Cardiology at [address] [phone] Neva Pugh MD [address] [place] [phone] Social History Tobacco Use Types Packs/Day Years [...] AM EST Office Visit Cardiology at [address] [place] [address] Ruben Hartman, PA [facility] [place] [address] 04/26/2024 10:00 AM EST Hospital Encounter Non-Invasive Cardiology Lab [facility] [place] [address] Arrived 09/24/2024 4:00 PM EDT Office Visit Cardiology at [address] [place] [phone] Nathaniel Keita MD [facility] [place] [address] documented as of this encounter Procedures Procedure Name Priority Date/Time Associated Diagnosis Comments EP DEVICE SCAN Routine 04/11/2012 documented in this encounter Results * Scan Doc: EP Device (04/11/2012) Anatomical Region Laterality Modality Other Neva Pugh MD MEDIA MGR SCAN EXT O RDR/RSLT documented in this encounter Visit Diagnoses Not on filedocumented in this encounter Care Teams What Job Titles Mean Relationship Specialty Start Date End Date Alexander Adams MD [address] [place] [address] PCP - General 04/06/12 07/26/23 documented as of this encounter
--- OUTSIDE RECORDS SUMMARY | 2024-02-15 22:05 | XMS_ITS | Encounter Summary ---
[place] [address] Care Team Providers Care Automatic Lump Making Machine Tender Name Role Phone Neva Pugh MD Primary Care Provider [phone] Encounter Details Date Type Department Care Team (Late st Contact Info) Description 07/17/2010 Orders [place] [address] Jaylin Salcido, [facility] [place] [address] Social History Tobacco Use Types Packs/Day Years Used Date Smoking Tobacco: Never Assessed Sex and Gender Information Value Date Recorded Sex Assigned at Not on file Gender Identity Not on file Sexual Orientation Not on file documented as of this encounter Plan of Treatment Upcoming Encounters Date Type Department Care Team (Late st Contact Info) Description 02/29/2024 10:00 AM EST Office Visit Cardiology at [address] [phone] Ruben Hartman, PA [facility] [place] [address] 04/26/2024 10:00 AM EST Hospital Encounter Non-Invasive Cardiology Lab [facility] [place] [address] Arrived 09/24/2024 4:00 PM EDT Office Visit Cardiology at [address] [place] [address] Nathaniel Keita MD [facility] [place] [address] documented as of this encounter Visit Diagnoses Not on filedocumented in this encounter Care Teams Automatic Lump Making Machine Tender Relationship Specialty Start Date End Date Neva Pugh MD [address] [place] [address] PCP - General 02/24/10 04/05/12 documented as of this encounter
--- OUTSIDE RECORDS SUMMARY | 2024-02-15 22:05 | XMS_ITS | Encounter Summary ---
[place] [address] Care Team Providers Care Rheologist Name Role Phone Neva Pugh MD Primary Care Provider [phone] Reason for Visit * Reason Onset Date Comments Medication Refill 07/21/2010 Encounter Details Date Type Department Care Team (Late st Contact Info) Description 07/21/2010 Refill [place] [address] Jaylin Salcido [facility] [address] [place] [address] Hypertension Social History Tobacco Use Types Packs/Day Years [...] AM EST Office Visit Cardiology at [address] [address] Ruben Small PA [facility] [place] [address] 04/26/2024 10:00 AM EST Hospital Encounter Non-Invasive Cardiology Lab [facility] [place] [address] Arrived 09/24/2024 4:00 PM EDT Office Visit Cardiology at [address] [place] [phone] Nathaniel Keita MD [facility] [place] [address] documented as of this encounter Visit Diagnoses Diagnosis Hypertension Unspecified essential hypertension documented in this encounter Care Teams Rheologist Relationship Specialty Start Date End Date Neva Pugh MD [address] [place] [address] PCP - General 02/24/10 04/05/12 documented as of this encounter
--- OUTSIDE RECORDS SUMMARY | 2024-02-15 22:05 | XMS_ITS | Encounter Summary ---
[place] [address] Care Team Providers Care Nuisance Wildlife Control Operator Name Role Phone Neva Pugh MD Primary Care Provider [phone] Reason for Visit * Reason Comments Cardiac Arrest Encounter Details Date Type Department Care Team (Late st Contact Info) Description 04/29/2011 11:15 AM EST Follow-Up Cardiology at [address] [phone] Lauren Cook, RN Cardiac arrest - ventricular fibrillation (Primary Dx) Discharge Disposition: Home Social [...] Sign Reading Time Taken Comments Blood Pressure 140/80 04/29/2011 11:15 AM EST Pulse 78 04/29/2011 11:15 AM EST Temperature - - Respiratory Rate - - Oxygen Saturation 99% 04/29/2011 11:15 AM EST Inhaled Oxygen Concentration - - Weight 90.4 kg (199 lb 4.8 oz) 04/29/2011 11:15 AM EST Height 172.7 cm (5' 8) 04/29/2011 11:15 AM EST Body Mass Index 30.3 04/29/2011 11:15 AM EST documented in this encounter Progress Notes * Lauren Cook - 04/29/2011 11:34 AM EST ICD Clinic Follow-up Ms. Cole is a 65 year old female who presents to the clinic today for routine ICD interrogation. The ICD was implanted 07/01/09 due to Secondary prevention s/p ventricular fibrillation cardiac arrest. She reports is slowly beginning to return to normal activities but continues to feel fatigued, however she reports feeling fatigued prior to getting her device due to chronic insomnia. Pt enrolled in SLS study. Implanting EPS MD: Norm Garcia MD PCP: Neva Pugh MD Blood pressure 140/80, pulse 78, height 172.7 cm (5' 8), weight 90.402 kg (199 lb 4.8 oz), SpO2 99.00%. Device and lead information Final Parameters: Ventricular lead: Medtronic Sprint Quattro Model# 6947-58 cm Serial #[id number] Bipolar, steroid-tipped, active-fixation IS-1, DF-1 lead Access: Left axillary vein Location: Right ventricular apex R wave, ICD: 8.0 mV Pacing threshold, ICD: 1.0 V at 0.5 ms Impedance, ICD: 532 ohms HVB Impedance 33 ohms SVC Impedance 39 ohms Pace the diaphragm at 10 V: No Pulse generator: Medtronic John II VR Model# [id number] Serial# [id number] Single-chamber ICD Location: Subcutaneous Parameters: VF detection rate: >200bpm VF therapy: ATP during charging,30J,35Jx5 FVT detection rate: 200-250bpm FVT therapy: Burst(1),30J,35Jx4 VT detection rate:182-200bpm VT therapy:Burst(3),20J,35Jx4 Enhancement: Wavelet, VT Monitor Bradycardia pacing: VVI 40 Pacing percentages: VS 100% Histogram is well distributed. Underlying rhythm: SR 75bpm ND 200ms Follow-up Battery status: 3.17V KP: 2.63V Charge time: 8.1sec; Last Full Charge: 12/31/10 Pace/Sensing Leads -Right Ventricular: R wave: 2.4-3.4mV per device, 3.0-4.5mV measured Threshold: 1.0V at 0.4ms Impedance: 684 ohms EGM quality: clean -Shocking leads: V Defib impedance: 45 ohms SVC (HVX) impedance: 56 ohms EGM quality: clean Therapy Administered: None Events: 1 Monitored VT episodes 9 beat run, avg V rate 198bpm. Wound/generator site: well healed L chest good skin thickness Impression: Appropriate ICD function. Changes made this session: None Plan: 1. RTC in 6 mos. 10/13, please coordinate with Dr Nichols appt. 2. [facility] in July 2011. I have personally reviewed the device printout and agree with the note above. Donavan De La O MD documented in this encounter Plan of Treatment Upcoming Encounters Date Type Department Care Team (Late st Contact Info) Description 02/29/2024 10:00 AM EST Office Visit Cardiology at [address] [phone] Ruben Hartman PA [facility] [place] [address] 04/26/2024 10:00 AM EST Hospital Encounter Non-[place] [address] Arrived 09/24/2024 4:00 PM EDT Office Visit Cardiology at [address] [phone] Nathaniel Keita MD [facility] [place] [address] documented as of this encounter Visit Diagnoses Diagnosis Cardiac arrest - ventricular fibrillation- Primary Ventricular fibrillation documented in this encounter Care Teams Nuisance Wildlife Control Operator Relationship Specialty Start Date End Date Neva Pugh MD [address] [place] [address] PCP - General 02/24/10 04/05/12 documented as of this encounter
--- OUTSIDE RECORDS SUMMARY | 2024-02-15 22:05 | XMS_ITS | Encounter Summary ---
[place] [address] Care Team Providers Care Answering Service Telephone Operator Name Role Phone Neva Pugh MD Primary Care Provider Encounter Details Date Type Department Care Team (Late st Contact Info) Description 04/29/2011 12:30 PM EST Office Visit [place] [phone] Elisha Nichols MD [facility] [place] [address] DM type 1 (diabetes mellitus, type 1) (Primary Dx) Discharge Disposition: Home Social History [...] Sign Reading Time Taken Comments Blood Pressure 113/48 04/29/2011 1:17 PM EST Pulse 82 04/29/2011 1:17 PM EST Temperature - - Respiratory Rate - - Oxygen Saturation - - Inhaled Oxygen Concentration - - Weight 89.9 kg (198 lb 3.2 oz) 04/29/2011 1:17 P M EST Height 172.7 cm (5' 8) 04/29/2011 1:17 PM EST Body Mass Index 30.14 04/29/2011 1:17 PM EST documented in this encounter Patient Instructions * Patient Instructions* Elisha Nichols MD - 04/29/2011 1:49 PM EST Recent Results (from the past 24 hour(s)) HEMOGLOBIN A1C Component Value Range ??? Hemoglobin A1C 8.3 (*) 4.3 - 6.1 (%) ??? Est Avg Gluc 192 (mg/dL) Check post meal sugars. documented in this encounter Progress Notes * Elisha Nichols MD - 04/29/2011 2:11 PM EST OFFICE NOTE DATE OF DICTATION: 04/29/2011 PRIMARY CARE PROVIDER: Neva Pugh M.D. Liane is here for followup of her type 1 diabetes which she has for almost 50 years, on May 20 it will be 50 years. Hemoglobin A1c in January was 7.9%. She checks her blood sugars usually four times a day. Couple weeks ago, she was running high fasting sugars 160/190 for about two weeks. She does not know what the underlying cause was. She bumped up her basal rates overnight and now morning sugars are running about 130, lunchtime about 190 to 120, supper 100 to 140, and bedtime 120 to 180. Rare hypoglycemia. EXERCISE: She uses her exercise bike. Her diet is unchanged. For breakfast, cereal and milk. For lunch, half a sandwich and pizza and fruit. For supper, meat, potato, and vegetable. Her insulin basal rate; midnight 1.05, 5 a.m. 1.1, 8 a.m. 1.15, noon 1.1, 5:30 p.m. 1.15, and 10 a.m. 1.0 units per hour. Basal daily dose 26.35. Total daily dose range from 36.4 to 39.3 over the past four days. Carb ratio 1 unit per 14 g. Correction factor of 30. COMPLICATIONS: She is up-to-date with the dentist. Had her eyes examined in December. Has involutional proliferative retinopathy. Microalbumin 24 in 01/2010. Neuropathy, she has Charcot changes in her feet. They sometimes ache at night. She has coronary disease. Had V-fib arrest with an ICD and pacemaker implant and two-vessel CABG in 06/2009. No recent angina. Lipids in 07/2010, LDL cholesterol 113. DIABETIC HEALTH MAINTENANCE: Beta-Taryn: Toprol 25 mg. Aspirin: 81 mg. ARB: Diovan 40 mg. Simvastatin: 20 mg. Flu Shot: 2010. Pneumovax: She is allergic. She is a nonsmoker. TSH 0.68 in 10/2010. Clinically, she is really feeling quite well. PAST MEDICAL HISTORY: Type 1 diabetes, ASCVD, GERD, hypertension. Current outpatient prescriptions ordered prior to encounter Medication Sig Dispense Refill ??? Blood Sugar Diagnostic, Drum (ACCU-CHEK COMPACT TEST) Strp 6 strips by [facility].(Non-Drug; Combo Route) route 6 times daily. 4-6 times daily 6 Box 3 ??? furosemide (LASIX) 20 mg tablet Take by mouth daily as needed. Mon/wed/fri Indications: Hypertension 90 tablet 3 ??? insulin [...] mouth nightly. 90 tablet 3 ??? Insulin [place], Disposable, (BD INSULIN PEN NEEDLE UF SHORT) 31 X 5/16 Ndle by [facility].(Non-Drug; Combo Route) route. ??? SUBCUTANEOUS INSULIN PUMP (INSULIN PUMP CF6391 [facility]) by [facility].(Non-Drug; Combo Route) route. ??? aspirin 81 mg [...] MG dosage On physical exam, blood pressure 113/48, pulse 82, weight 198 pounds, and height 5 feet 8 inches. In general, she looks well. Her skin is smooth and warm and dry. There are no ulcerations. She has Charcot changes in her feet and she has had an amputated tip of the left second toe since her last visit, but it is well healed and she has a hammertoe right second toe. Psychiatric: Mood and affect are appropriate. LABORATORY TESTS: Hemoglobin A1c 8.3%. IMPRESSION: 1. Diabetes. Blood sugars are worsened a bit, perhaps it is related to the high fasting sugars she had for a couple of weeks, but I have asked her to check some postmeal blood sugars. Her ratio of basal to bolus is a little off. Take a little more basal, little less bolus than she might need. So, she will check some postmeal sugars, and if those are spiking up, we can adjust her carb ratio and then if she low blood sugars, lower her basal rates. PLAN: 1. Adjust insulin as noted above. 2. Follow up in three months with Analia with hemoglobin A1c and lipids in the quick draw lab. documented in this encounter Plan of Treatment Upcoming Encounters Date Type Department Care Team (Late st Contact Info) Description 02/29/2024 10:00 AM EST Office Visit Cardiology at [address] [phone] Ruben Hartman PA [facility] [address] 04/26/2024 10:00 AM EST Hospital Encounter Non-[place] [address] Arrived 09/24/2024 4:00 PM EDT Office Visit Cardiology at [address] [phone] Nathaniel Keita MD [facility] [address] documented as of this encounter Procedures Procedure Name Priority Date/Time Associated Diagnosis Comments HEMOGLOBIN A1C VERNON 04/29/2011 12:03 PM EST DM type 1 (diabetes mellitus, type 1) documented in this encounter Results * (ABNORMAL) HDL/Cholesterol Profile (08/09/2011 12:43 PM EDT) [facility] Cholesterol, Total 222(H) <=199 mg/dL [facility] Comment: Recommendations of the NCEP Adult Treatment Panel for the following risk cutoff thresholds for the [place] population: Desirable: <200 mg/dL Borderline High: 200-239 mg/dL High: > or = 240 mg/dL HDL Cholesterol 49 >=40 mg/dL [facility] Comment: Reference range: ??Low HDL: ?? < 40 mg/dL ??Normal: ?40-60 mg/dL ??Desirable: > 60 mg/dL REJI 2001; 285(19):8528-4440 Cholesterol/HDL Ratio 4.5 ratio [facility] Comment: A Cholesterol to HDL ratio below 4:1 is desirable. ??Studies suggest that increased CAD risk occurs at ratios above 5 for females and above 6 for men. ? [place] Heart Association ??(http://www.americanheart.org) ? A[place]lia Int Med, 1994; 121:641 ? AM J Med, 1998; 105(1A):48S Blood specimen (specimen) 08/09/2011 12:43 PM EDT 08/09/2011 12:54 PM EDT Narrative Resulting Agency Comment Spec In Lab Elisha Nichols MD CHEMISTRY ORDERAB LES [facility] * (ABNORMAL) LDL Cholesterol, Direct (08/09/2011 12:43 PM EDT) LDL Cholesterol, Direct 142(H) <=99 mg/dL [facility] Comment: The National Cholesterol Education Program (NCEP) has set the following guidelines for LDL Cholesterol: Reference range: ?? Optimal: ?<100 mg/dL ?? Near Optimal/Above Optimal: ?? 100-129 mg/dL ?? Borderline high: ?130-159 mg/dL ?? High: ? 160-189 mg/dL ?? Very high: ?>tg=132 mg/dL REJI 2001: 285(19):5989-0297 Blood specimen (specimen) 08/09/2011 12:43 PM EDT 08/09/2011 12:54 PM EDT Narrative Resulting Agency Comment Spec In Lab Elisha Nichols MD CHEMISTRY ORDERAB LES [facility] * (ABNORMAL) Hemoglobin A1c (08/09/2011 12:43 PM EDT) Hemoglobin A1c 8.6(H) 4.3 - 6.1 % [facility] Estimated Average Glucose 200 mg/dL [facility] Comment: eAG equivalents for HbA1c percentages: [...] into estimated average glucose values. ??Diabetes Care 2008:31(8):0642-0132. Blood specimen (specimen) 08/09/2011 12:43 PM EDT 08/09/2011 12:54 PM EDT Narrative Resulting Agency Comment Spec In Lab Elisha Nichols MD CHEMISTRY ORDERAB LES [facility] * (ABNORMAL) Hemoglobin A1c (04/29/2011 12:03 PM EST) Hemoglobin A1c 8.3(H) 4.3 - 6.1 % [facility] Estimated Average Glucose 192 mg/dL [facility] Comment: eAG equivalents for HbA1c percentages: [...] ADA website: ??http://professional.diabetes.org/glucosecalculator.aspx Reference: Alfred JEFFRIES, Risa Chavez, Sergio R, et al. ??Translating the A1C assay into estimated average glucose values. ??Diabetes Care 2008:31(8):3668-6220. Blood specimen (specimen) 04/29/2011 12:03 PM EST 04/29/2011 12:09 PM EST Elisha Nichols MD CHEMISTRY ORDERAB LES [facility] documented in this encounter Visit Diagnoses Diagnosis DM type 1 (diabetes mellitus, type 1)- Primary Type I (juvenile type) diabetes mellitus without mention of complication, not stated as uncontrolled documented in this encounter Care Teams Answering Service Telephone Operator Relationship Specialty Start Date End Date Neva Pugh MD [address] [place] [address] PCP - General 02/24/10 04/05/12 documented as of this encounter
--- OUTSIDE RECORDS SUMMARY | 2024-02-15 22:05 | XMS_ITS | Encounter Summary ---
[place] [address] Care Team Providers Care Kai Whakaruruhau Name Role Phone Neva Pugh MD Primary Care Provider [phone] Reason for Visit * Reason Comments Diabetes Encounter Details Date Type Department Care Team (Late st Contact Info) Description 07/20/2010 4:00 PM EDT Office Visit [place] [phone] Jaylin Salcido [facility] [place] [address] Diabetes; Hypertension Discharge Disposition: Home Social History Tobacco Use Types Packs/Day Years Used Date Smoking Tobacco: Former Cigarettes Q uit: 06/20/1975 Tobacco Cessation:Counseling Given: No Alcohol Use Standard Drinks/Week Comments Not Asked 0 (1 standard drink = 0.6 oz pur e alcohol) Sex and Gender Information Value Date Recorded Sex Assigned at Not on file Gender Identity Not on file Sexual Orientation Not on file documented as of this encounter Last Filed Vital Signs Vital Sign Reading Time Taken Comments Blood Pressure 147/71 07/20/2010 4:57 PM EDT Pulse 81 07/20/2010 4:57 PM EDT Temperature - - Respiratory Rate - - Oxygen Saturation - - Inhaled Oxygen Concentration - - Weight 90.7 kg (200 lb) 07/20/2010 4:57 PM EDT Height - - Body Mass Index 30.41 07/20/2010 2:47 PM EDT documented in this encounter Progress Notes * Jaylin Salcido, PERLA - 07/20/2010 6:42 PM EDT DATE OF VISIT: 07/20/2010 REASON FOR VISIT: Followup DM, in good overall control. Also, followup hypertension, in good control. BRIEF HISTORY: Presents and states generally she feels well except she has low energy. Has had insomnia for years. DIABETES REGIMEN: MiniMed insulin pump. Basal rates 12 a.m. 0.95, 5 a.m. 1.0, 8 a.m. 1.25, 12 noon 1.05, 5:30 p.m. 1.1, 10 p.m. 1.0. Total basal 25.5. Total daily doses range from 42.65 to 47 units. Insulin to carb 1:12. Correction factor 25. Target blood glucose 90 to 120. 24-HOUR MEAL PLAN: Tries to follow the recommendations made at cardiac rehab. Physical activity using the stationary bike. Took phase III of cardiac rehab during the winter. States it encourages her to be much more active then she would on her own. Plans to take phase III again in the fall. Prevention strategies are up-to-date. Has an eye appointment scheduled in September. REVIEW OF SYSTEMS: Depression and Mood: States generally she is doing well. Eyes: No recent vision changes. No headaches. No chest pain. No shortness of breath. No GI symptoms. Appetite is good. Sleep Pattern: Has not slept well for years. Extremities: Numbness from midcalf distally. Skin Changes: Has an open area on right forefoot. PHYSICAL EXAM: Appears in good health. Neatly dressed. Pleasant and talkative c good eye contact. Eyes: no retinopathy be green light exam Neck: no lymphadenopathy or thyroidmegaly Heart: RRR no murmur. Has pacemaker Lungs: clear to auscultation Feet: changes consistent c charcot. No sensation to 10 g of pressure Superficial open area on R lateral forefoot, no erythema or pus Lab done today, hemoglobin A1c 7.5%, previous was greater than 8%. IMPRESSION AND PLAN: Diabetes mellitus, in good overall control with complications of neuropathy. Has an appointment scheduled tomorrow with Dr. King in [facility] for open area on right forefoot. No redness. No pus. No change in diabetes regimen. Reviewed prevention and treatment of hypoglycemia. She will be traveling to [place] and to [place] later this year. She does a very good job managing her diabetes and her heart disease. Blood pressure is at goal. Request refills for Lasix and Diovan which were given to the patient. Return to office in October on same day as Dr. Beasley. Of this 32-minute office visit, I spent 30 minutes counseling with the patient on the following issues: Target blood glucose ranges, prevention and treatment of hypoglycemia, discussing high-risk feet she never goes barefoot, reviewing a healthy meal plan, and physical activity regimen. documented in this encounter Plan of Treatment Upcoming Encounters Date Type Department Care Team (Late st Contact Info) Description 02/29/2024 10:00 AM EST Office Visit Cardiology at [address] [address] Ruben Hartman, [facility] [place] [address] 04/26/2024 10:00 AM EST Hospital Encounter Non-Invasive [place] [address] Arrived 09/24/2024 4:00 PM EDT Office Visit Cardiology at [address] [address] Nathaniel Keita MD [facility] [address] documented as of this encounter Procedures Procedure Name Priority Date/Time Associated Diagnosis Comments LDL CHOLESTEROL, DIRECT Routine 07/20/2010 2:20 PM EDT Diabetes HEMOGLOBIN A1C Routine 07/20/2010 2:20 PM EDT Diabetes documented in this encounter Results * Vitamin D 25 hydroxy (10/19/2010 12:28 PM EDT) 25-Hydroxy D2 <4.0 ng/mL [facility] Comment: Test Performed by: [place] [address] Carton Forming Machine Operator: Daniela Thakur, Ph.D. 25-Hydroxy D3 33 ng/mL [facility] Comment: Test Performed by: [place] [address] Carton Forming Machine Operator: Daniela Thakur, Ph.D. Vitamin D Total 25 OH 33 ng/mL [facility] Comment: -- REFERENCE VALUE -- 25-HYDROXY D TOTAL (D2+D3) Optimum levels in the normal population are 25-80 Test Performed by: [place] [address] Cart[employer] Forming Machine Operator: Daniela Thakur, Ph.D. Blood specimen (specimen) 10/19/2010 12:28 PM EDT 10/19/2010 1:09 PM EDT Chris Chatman MD CHEMISTRY ORDERABLES Performing Organization Address [facility] de Phone Number [facility] * TSH (10/19/2010 12:28 PM EDT) Pathologist [facility] Thyroid Stimulating Hormone 0.68 0.27 - 4.20 mcIU/mL [facility] Blood specimen (specimen) 10/19/2010 12:28 PM EDT 10/19/2010 12:34 PM EDT Chris Chatman MD CHEMISTRY ORDERABLES Performing Organization Address [facility] de Phone Number [facility] * (ABNORMAL) Basic metabolic panel (10/19/2010 12:28 PM EDT) Glucose 85 60 - 199 mg/dL [facility] Comment:Diabetes: >=200 mg/d L plus symptoms Blood Urea Nitrogen 18 8 - 18 mg/dL CERNER MILLENNIUM Creatinine 1.15 0.70 - 1.20 mg/dL CERNER MILLENNIUM Sodium 140 135 - 145 mmol/L CERNER MILLENNIUM Potassium 4.2 3.5 - 5.0 mmol/L CERNER MILLENNIUM Comment: [...] 5 - 15 mmol/L CERNER MILLENNIUM Calcium 9.4 8.5 - 10.5 mg/dL CERNER MILLENNIUM Est Glomerular Filtration Rate 47(L) >=60 CERNER MILLENNIUM Comment: The National Kidney Disease Education Program (NKDEP) has recommended all laboratories report estimated GFR (eGFR) along with plasma creatinine measurements to assist you with recognition of early kidney disease. Caveats: ??Plasma creatinine should be at steady-state (unchanged within the past week). For patients multiply eGFR by 1.2.MDRD equation has not been validated for pediatric patients and is only valid for patients with age >= 18 years. At present, NKDEP does NOT recommend using [...] with diabetic kidney disease. References: http://nkdep.nih.gov/resources/NKDEP_Suggestn4Labs_0606_508.pdf http://www.kidney.org/professionals/kls/pdf/faq_gfr.pdf Blood specimen (specimen) 10/19/2010 12:28 PM EDT 10/19/2010 12:34 PM EDT Chris Chatman MD CHEMISTRY ORDERABLES Performing Organization Address City/[facility] Co de Phone Number [facility] * (ABNORMAL) Hemoglobin A1c (10/19/2010 12:28 PM EDT) Hemoglobin A1c 8.2(H) 4.3 - 6.1 % [facility] Estimated Average Glucose 189 mg/dL [facility] Comment: eAG equivalents for HbA1c percentages: [...] into estimated average glucose values. ??Diabetes Care 2008:31(8):4678-1947. Blood specimen (specimen) 10/19/2010 12:28 PM EDT 10/19/2010 12:34 PM EDT Chris Chatman MD CHEMISTRY ORDERABLES Performing Organization Address City/[facility]/ZIP Co de Phone Number [facility] * (ABNORMAL) LDL cholesterol, direct (07/20/2010 2:20 PM EDT) LDL Cholesterol, Direct 113(H) <=99 mg/dL [facility] Comment: The National Cholesterol Education Program (NCEP) has set the following guidelines for LDL Cholesterol: Reference range: ?? Optimal: ?<100 mg/dL ?? Near Optimal/Above Optimal: ?? 100-129 mg/dL ?? Borderline high: ?130-159 mg/dL ?? High: ? 160-189 mg/dL ?? Very high: ?>qx=941 mg/dL REJI 2001: 285(13):3524-7960 Blood specimen (specimen) 07/20/2010 2:20 PM EDT 07/20/2010 2:24 PM EDT Chris Chatman MD CHEMISTRY ORDERABLES [facility] * (ABNORMAL) Hemoglobin A1c (07/20/2010 2:20 PM EDT) Hemoglobin A1c 7.5(H) 4.3 - 6.1 % [facility] Estimated Average Glucose 169 mg/dL [facility] Comment: eAG equivalents for HbA1c percentages: [...] into estimated average glucose values. ??Diabetes Care 2008:31(8):3666-9930. Blood specimen (specimen) 07/20/2010 2:20 PM EDT 07/20/2010 2:24 PM EDT Chris Chatman MD CHEMISTRY ORDERABLES Performing Organization Address City/State/[facility] [place] Phone Number [facility] documented in this encounter Visit Diagnoses Diagnosis Diabetes Type II or unspecified type diabetes mellitus without mention of complication, not stated as uncontrolled Hypertension Unspecified essential hypertension documented in this encounter Care Teams Kai Whakaruruhau Relationship Specialty Start Date End Date Neva Pugh MD [address] [place] [address] PCP - General 02/24/10 04/05/12 documented as of this encounter
--- OUTSIDE RECORDS SUMMARY | 2024-02-15 22:05 | XMS_ITS | Encounter Summary ---
[place] [address] Care Team Providers Care Cheese Supervisor Name Role Phone Neva Pugh MD Primary Care Provider [phone] Reason for Visit * Reason Comments Cardiomyopathy ICD interrogation Encounter Details Date Type Department Care Team (Late st Contact Info) Description 01/06/2012 8:45 AM EDT Follow-Up Cardiology at [address] [phone] Thaddeus Cespedes RN Cardiac arrest - ventricular fibrillation (Primary Dx) Social History Tobacco Use Types [...] Sign Reading Time Taken Comments Blood Pressure 150/90 01/06/2012 8:51 AM EDT Pulse 84 01/06/2012 8:51 AM EDT Temperature - - Respiratory Rate - - Oxygen Saturation 98% 01/06/2012 8:51 AM EDT Inhaled Oxygen Concentration - - Weight 90.9 kg (200 lb 4.8 oz) 01/06/2012 8:51 A M EDT Height 172.7 cm (5' 8) 01/06/2012 8:51 AM EDT Body Mass Index 30.46 01/06/2012 8:51 AM EDT documented in this encounter Progress Notes * Thaddeus Cespedes RN - 01/06/2012 9:00 AM EDT ICD Clinic Follow-up Ms. Cole is a 66 years old female who presents to the clinic today for ICD interrogation. The ICDwas implanted 07/01/2009 due to Secondary prevention s/p ventricular fibrillation cardiac arrest. She voices no device-related complaints today. Pt enrolled in SLS study. PCP: Neva Pugh MD Device and lead information Final Parameters: Ventricular lead: Medtronic Sprint Quattro Model# 6947-58 cm Serial #[id number] Bipolar, steroid-tipped, active-fixation IS-1, DF-1 lead Access: Left axillary vein Location: Right ventricular apex R wave, ICD: 8.0 mV Pacing threshold, ICD: 1.0 V at 0.5 ms Impedance, ICD: 532 ohms HVB Impedance 33 ohms SVC Impedance 39 ohms Pace the diaphragm at 10 V: No Pulse generator: Medtronic John II VR Model# [id number] Serial# [id number] Single-chamber ICD Location: Subcutaneous Parameters: VF detection rate: >200 bpm VF therapy: ATP during charging, 30J, 35J x 5 FVT detection rate: via VF 250 bpm FVT therapy: Burst(1), 30J, 35J x 4 VT detection rate:182 bpm VT therapy: Burst(3), 20J, 35J x 4 Enhancement: Wavelet, VT Monitor Bradycardia pacing: VVI 40 Follow-up Battery status: 3.12 V BACTERIOLOGY RESEARCH ASSISTANT: 2.63 V Charge time: 8.3 sec 01/01/2012 SIC: 0 Pace/Sensing Leads -Right Ventricular: R wave: 2 mV Threshold: 1 V at 0.4 ms Impedance: 741 ohms EGM quality: clean -Shocking leads: V Defib impedance: 48 ohms SVC (HVX) impedance: 61 ohms EGM quality: clean Therapy Administered: None Events: 17 Monitored VT episodes, available EGMs show a tachy morphology similar to that of the underlying rhythm, abrupt onset and spontaneous termination, VCL ~290 ms, could represent VT or SVT Pacing percentages: VS 100% Histogram is well distributed. Underlying rhythm: SR 85 bpm Wound/generator site: well healed L chest good skin thickness Impression: Appropriate ICD function. Changes made this session: None Plan: 3 mos Care Link. 6 mos device clinic documented in this encounter Plan of Treatment Upcoming Encounters Date Type Department Care Team (Late st Contact Info) Description 02/29/2024 10:00 AM EST Office Visit Cardiology at [address] [address] Ruben Hartman PA [facility] [place] [address] 04/26/2024 10:00 AM EST Hospital Encounter Non-Invasive [place] [address] Arrived 09/24/2024 4:00 PM EDT Office Visit Cardiology at [address] [address] Nathaniel Keita MD [facility] [place] [address] documented as of this encounter Visit Diagnoses Diagnosis Cardiac arrest - ventricular fibrillation- Primary Ventricular fibrillation documented in this encounter Care Teams Cheese Supervisor Relationship Specialty Start Date End Date Neva Pugh MD [address] [place] [address] PCP - General 02/24/10 04/05/12 documented as of this encounter
--- OUTSIDE RECORDS SUMMARY | 2024-02-15 22:05 | XMS_ITS | Encounter Summary ---
[place] [address] Care Team Providers Care Labeler Name Role Phone Neva Pugh MD Primary Care Provider [phone] Reason for Visit * Reason Onset Date Comments Medication Refill 03/13/2011 Encounter Details Date Type Department Care Team (Late st Contact Info) Description 03/13/2011 Refill [place] [address] Elisha Nichols MD [facility] [place] [address] Social History Tobacco Use Types Packs/Day Years [...] AM EST Office Visit Cardiology at [address] [place] [phone] Ruben Hartman PA [facility] [place] [address] 04/26/2024 10:00 AM EST Hospital Encounter Non-Invasive Cardiology Lab [facility] [place] [address] Arrived 09/24/2024 4:00 PM EDT Office Visit Cardiology at [address] [place] [address] Nathaniel Keita MD [facility] [place] [address] documented as of this encounter Visit Diagnoses Not on filedocumented in this encounter Care Teams Labeler Relationship Specialty Start Date End Date Neva Pugh MD [address] [place] [address] PCP - General 02/24/10 04/05/12 documented as of this encounter
--- OUTSIDE RECORDS SUMMARY | 2024-02-15 22:05 | XMS_ITS | Encounter Summary ---
[place] [address] Care Team Providers Care Chemist Intern Name Role Phone Neva Pugh MD Primary Care Provider [phone] Reason for Visit * Reason Comments Diabetes 18 months check for PDR OU. Pt thinks that VA OU is stable, no complaints. Encounter Details Date Type Department Care Team (Late st Contact Info) Description 12/10/2010 3:00 PM EDT [place] [phone] Melissa Cleary MD PDR (proliferative diabetic retinopathy) [...] Progress Notes * Melissa Cleary MD - 12/10/2010 5:01 PM EDT Involutional PDR post PRP OU. No Rx. RTC 1 yr. documented in this encounter Nursing Notes * 12/10/2010 3:00 PM EDT >> MELISSA CLEARY MD [facility] Dec 10, 2010 5:01 PM No change in vision OU. >> MARIA GUADALUPE IVORY [facility] Dec 10, 2010 3:52 PM Description:Patient presents with: Diabetes - 18 months check for PDR OU. Pt thinks that VA OU is stable, no complaints. Location: both eye Duration: 18 months Rapidity of Onset:gradual Severity: Condition:No Change Pain:none Associated Symptoms: Last BSL measured this PM: 123 documented in this encounter Plan of Treatment Upcoming Encounters Date Type Department Care Team (Late st Contact Info) Description 02/29/2024 10:00 AM EST Office Visit Cardiology at [address] [address] Ruben Hartman PA [facility] [place] [address] 04/26/2024 10:00 AM EST Hospital Encounter Non-Invasive [place] [address] Arrived 09/24/2024 4:00 PM EDT Office Visit Cardiology at [address] [address] Nathaniel Keita MD [facility] [place] [address] documented as of this encounter Visit Diagnoses Diagnosis PDR (proliferative diabetic retinopathy)- Primary Type II or unspecified type diabetes mellitus with ophthalmic manifestations, not stated as uncontrolled documented in this encounter Care Teams Chemist Intern Relationship Specialty Start Date End Date Neva Pugh MD [address] [place] [address] PCP - General 02/24/10 04/05/12 documented as of this encounter
--- OUTSIDE RECORDS SUMMARY | 2024-02-15 22:05 | XMS_ITS | Encounter Summary ---
[place] [address] Care Team Providers Care Hospice Case Manager Name Role Phone Neva Pugh MD Primary Care Provider [phone] Reason for Visit * Reason Onset Date Comments Medication Refill 12/17/2010 Encounter Details Date Type Department Care Team (Late st Contact Info) Description 12/17/2010 [place] [address] Elisha Nichols MD [facility] [address] [place] [address] Social History Tobacco Use Types Packs/Day Years [...] AM EST Office Visit Cardiology at [address] [place] [phone] Ruben Hartman PA [facility] [place] [address] 04/26/2024 10:00 AM EST Hospital Encounter Non-Invasive Cardiology Lab [facility] [place] [address] Arrived 09/24/2024 4:00 PM EDT Office Visit Cardiology at [address] [place] [address] Nathaniel Keita MD [facility] [place] [address] documented as of this encounter Visit Diagnoses Not on filedocumented in this encounter Care Teams Hospice Case Manager Relationship Specialty Start Date End Date Neva Pugh MD [address] [place] [address] PCP - General 02/24/10 04/05/12 documented as of this encounter
--- OUTSIDE RECORDS SUMMARY | 2024-02-15 22:05 | XMS_ITS | Encounter Summary ---
[place] [address] Care Team Providers Care Dental Laboratory Technician Name Role Phone Alexander Adams MD Primary Care Provider [phone] Reason for Visit * Reason Onset Date Comments Medication Refill 06/08/2012 Encounter Details Date Type Department Care Team (Late st Contact Info) Description 06/08/2012 Refill [place] [address] Jaylin Salcido [facility] 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, uncontrolled (Primary Dx) Social History Tobacco Use Types [...] 10:00 AM EST Office Visit Cardiology at [address] [place] [address] Ruben Hartman PA [facility] [place] [address] 04/26/2024 10:00 AM EST Hospital Encounter Non-Invasive Cardiology Lab [facility] [address] Arrived 09/24/2024 4:00 PM EDT Office Visit Cardiology at [address] [address] Nathaniel Keita MD [facility] [place] [address] documented as of this encounter Visit Diagnoses Diagnosis Type II or unspecified type diabetes mellitus with ophthalmic manifestations, uncontrolled(250.52)- Primary Type II or unspecified type diabetes mellitus with ophthalmic manifestations, uncontrolled documented in this encounter Care Teams Dental Laboratory Technician Relationship Specialty Start Date End Date Alexander Adams MD [address] [place] [address] PCP - General 04/06/12 07/26/23 documented as of this encounter
--- OUTSIDE RECORDS SUMMARY | 2024-02-15 22:05 | XMS_ITS | Encounter Summary ---
Author [place] [address] Care Team Providers Care Training Coordinator Name Role Phone Neva Field MD Primary Care Provider Reason for Visit * Reason Comments Follow-up Encounter Details Date Type Department Care Team (Late st Contact Info) Description 12/21/2010 10:10 AM EDT Follow-Up Cardiology at [address] [address] Milind Quezada MD [facility] [place] [address] Coronary artery disease; History of sudden cardiac arrest; Ventricular fibrillation Discharge Disposition: Home Social History [...] Sign Reading Time Taken Comments Blood Pressure 130/56 12/21/2010 10:24 AM EDT Pulse 80 12/21/2010 10:24 AM EDT Temperature - - Respiratory Rate 16 12/21/2010 10:24 AM EDT Oxygen Saturation 99% 12/21/2010 10:24 AM EDT Inhaled Oxygen Concentration - - Weight 88.5 kg (195 lb) 12/21/2010 10:24 AM EDT Height 170.2 cm (5' 7) 12/21/2010 10:24 AM EDT Body Mass Index 30.54 12/21/2010 10:24 AM EDT documented in this encounter Progress Notes * Milind Quezada MD - 12/21/2010 12:02 PM EDT [facility] [place] Visit ID/PMH: The patient is a 65 y.o. followed by NEVA FIELD MD with the following medical problems: Patient Active Problem List Diagnoses ??? Ventricular fibrillation 06/21/2009 [facility]--- VF presenting, ROSC post shock by EMS, intubated; Dual chamber ICD - 07/02/2009 Medtronic John II VR Model# [id number], Serial# [id number] ??? CHD, s/p arrest and 2v CABG [...] laser surgery, - microalbuminuria - Insulin pump Present Illness: Patient seen to followup on her chronic coronary disease and history of hospital cardiac arrest. She is now 18 months out following her [place] and out of hopsital arrest. She's done well. She has some mild fatigue but attributes this in part to back pain which limits her physical activity. She's had noangina. She denies orthopnea PND or palpitations. Her ICD has never fired. She eats a healthy diet. She tolerated her medications well. She's had diabetes now for almost 50 years. Treatment is been very successful with the pump. She underwent foot surgery since I last saw her which was uncomplicated and is anticipating left foot hammertoe surgery. This be done by Dr. Jon in [facility]. She asks about the advisability of epidural spinal injections which she would pursue at [facility]. She's hadno bleeding problems. Review of Systems: She occasionally has some lightheadedness upon standing quickly. Recent blood pressure readings checked at home and range between 100-110 systolic. Otherwise negative. Medications: Current outpatient prescriptions Medication Sig Dispense Refill ??? traMADol-acetaminophen (ULTRACET) 37.5-325 mg per tablet Take 1 tablet by mouth 2 times daily as needed for Pain. 40 tablet 0 ??? insulin aspart (NOVOLOG) 100 unit/mL vial injection Inject 50-60 Units subcutaneously daily. 30mL PRN ??? esomeprazole (NEXIUM) 40 mg capsule Take 1 capsule by mouth daily. 90 capsule 3 ??? metoprolol succinate (TOPROL-XL) 25 mg 24 hr tablet Take 1 tablet by mouth daily. 90 tablet 3 ??? simvastatin (ZOCOR) 20 mg tablet Take 1 tablet by mouth nightly. 90 tablet 3 ??? Insulin [place], Disposable, (BD INSULIN PEN NEEDLE UF SHORT) 31 X 5/16 Ndle by [facility].(Non-Drug; Combo Route) route. ??? SUBCUTANEOUS INSULIN PUMP (INSULIN PUMP [id number] [facility]) by [facility].(Non-Drug; Combo Route) route. ??? aspirin 81 mg [...] per tablet 2 Tablet(s), PO, Once daily,PRN ??? furosemide (LASIX) 20 mg tablet Take 2 tablets by mouth daily as needed. Indications: Hypertension 90 tablet 3 Allergies: Lisinopril, Ibandronate sodium, Amiodarone, Codeine phos, Propoxyphene n- acetaminophen, Adhesive tape, Kiwi (actinidia chinensis), Alendronate sodium, Celecoxib, Gabapentin and Ezetimibe Physical Exam: VS: Blood pressure 130/56, pulse 80, resp. rate 16, height 170.2 cm (5' 7), weight 88.451 kg (195 lb), SpO2 99.00%. Gen: Is a pleasant mildly overweight woman in no acute distress Skin: Warm and dry. No echymoses. HEENT: Nonicteric. Chest: Clear to ausculatation Cardiac: JVP not elevated. No carotid bruits. Heart sounds regular without murmurs rubs or gallops.Abdomen soft nontender Abd: Soft and nontender. Ext: Trace edema Neuro: Appropriate affect. Good cognition. No focal motor deficits. Assessment: She's doing well. I think she is likely symptomatic from mild orthostatic hypotension. I think she can decrease her diuretic to 20 mg of Lasix 3 times a week with an additional tablet when necessary.I see no contraindication to epidural spinal injection or foot surgery. Action: ?? I explained my impression and answered all questions. ?? Continued current medications with the change in Lasix dose as noted above Follow up one year MILIND QUEZADA MD 12/21/2010 documented in this encounter Plan of Treatment Upcoming Encounters Date Type Department Care Team (Late st Contact Info) Description 02/29/2024 10:00 AM EST Office Visit Cardiology at [address] [place] [address] Ruben Hartman PA [facility] [address] 04/26/2024 10:00 AM EST Hospital Encounter Non-Invasive Cardiology Lab [facility] [place] [phone] Arrived 09/24/2024 4:00 PM EDT Office Visit Cardiology at [address] [place] [address] Nathaniel Keita MD [facility] [place] [address] documented as of this encounter Visit Diagnoses Diagnosis Coronary artery disease Coronary atherosclerosis of unspecified type of vessel, lime or graft History of sudden cardiac arrest Personal history of sudden cardiac arrest Ventricular fibrillation documented in this encounter Care Teams Training Coordinator Relationship Specialty Start Date End Date Neva Field MD [address] [place] [address] PCP - General 02/24/10 04/05/12 documented as of this encounter
--- OUTSIDE RECORDS SUMMARY | 2024-02-15 22:05 | XMS_ITS | Encounter Summary ---
[place] [address] Care Team Providers Care Supervisor Assembling Name Role Phone Neva Pugh MD Primary Care Provider [phone] Reason for Visit * Reason Comments Diabetes Encounter Details Date Type Department Care Team (Late st Contact Info) Description 10/19/2010 12:00 PM EDT Office [place] [phone] Jaylin Salcido [facility] [place] [address] Diabetes; Hypertension; Hyperlipidemia Discharge Disposition: Home Social History Tobacco [...] Sign Reading Time Taken Comments Blood Pressure 137/40 10/19/2010 12:39 PM EDT Pulse 88 10/19/2010 12:39 PM EDT Temperature - - Respiratory Rate - - Oxygen Saturation - - Inhaled Oxygen Concentration - - Weight 89.4 kg (197 lb) 10/19/2010 12:39 PM EDT Height 169.1 cm (5' 6.58) 10/19/2010 12:39 PM E DT Body Mass Index 31.25 10/19/2010 12:39 PM EDT documented in this encounter Patient Instructions * Patient Instructions* Jaylin Salcido APRN - 10/19/2010 1:12 PM EDT Keep up the good work managing glucose levels! documented in this encounter Progress Notes * Jaylin Salcido APRN - 10/19/2010 1:29 PM EDT OFFICE VISIT DATE OF VISIT: 10/19/2010 REASON FOR VISIT: Followup type 1 DM, in good overall control, using an insulin pump. Also, followup hypertension and hyperlipidemia. BRIEF HISTORY: Presents for followup. Has been having some back pain recently. States glucose levels are generally okay. Had surgery on right fifth toe which healed well. DIABETES REGIMEN: MiniMed insulin pump. Basal Rates: 12 a.m. 1.0, 5 a.m. 1.05, 8 a.m. 1.20, 12 noon 1.15, 5:30 p.m. 1.20, and 10 p.m. 0.95. Total basal 26.6 units. Total daily doses range from 39.5 to 43.5. 24-HOUR MEAL PLAN: Breakfast is whole grain, Cheerios, and skim milk. No morning snack. Lunch is a sandwich or half a sandwich with lettuce, tomato, and cheese and a piece of fruit. No afternoon snack. Dinner is meat and vegetables and fruit. Evening snack is a rice crispy snack bar. PHYSICAL ACTIVITY: Enjoys walking, but has been advised not to do a lot of walking related to high-risk feet. Has been advised to use a stationary bike. COMPLICATIONS: Charcot feet. Cardiac: Has a pacemaker and a defibrillator. History of cardiac arrest. PREVENTION STRATEGIES: States her eye appointment has been canceled three times. Is hoping that the December scheduled appointment occurs. All other prevention strategies are up-to-date. REVIEW OF SYSTEMS: Depression and Mood: States she is doing well. Recently, her parish has been changed. Eyes: No recent vision changes. No headaches. No chest pain. No shortness of breath. She does have occasional GI symptoms and wonders if her Nexium should be changed to a different medication. Sleep pattern is okay. Skin: No rashes, no sores. Extremities: Feet are numb and has back pain. Has podiatry care with Dr. King every three months in [facility]. PHYSICAL EXAMINATION: Appearance: She is overweight. She appears in very good health. Neatly dressed. Very pleasant and talkative with good eye contact. Eyes: No retinopathy by green light exam. Neck: No thyromegaly or lymphadenopathy. Heart: Regular rate and rhythm. Pulse is 60. States she has a pacemaker test tonight. Lungs are clear to auscultation. Feet: Skin is normal. Pulses are present. Neuro: Decreased sensation to 10 g of pressure. Changes consistent with Charcot foot. LAB DONE TODAY: Hemoglobin A1c, result not available during office visit and other lab results not available. IMPRESSION AND PLAN: Diabetes mellitus type 1. Reviewed blood glucose results from memory. No change in regimen today until after hemoglobin A1c result. Blood pressure is low diastolic which she states it is always low. Denies dizziness or lightheadedness, although she states occasionally it does occur, symptoms do occur after a meal or if she changes position too quickly. Requests a letter for travel which will be done and mailed to her. Return to office in three months. Will check hemoglobin A1c and other labs that she is due for. Of this 31-minute office visit, I spent 30 minutes counseling with the patient on the following issues: Target blood glucose ranges and reviewing blood pressure targets and cholesterol targets. documented in this encounter Plan of Treatment Upcoming Encounters Date Type Department Care Team (Late st Contact Info) Description 02/29/2024 10:00 AM EST Office Visit Cardiology at [address] [place] [address] Ruben Hartman, [facility] [place] [address] 04/26/2024 10:00 AM EST Hospital Encounter Non-Invasive Cardiology Lab [facility] [place] [address] Arrived 09/24/2024 4:00 PM EDT Office Visit Cardiology at [address] [place] [phone] Nathaniel Keita MD [facility] [place] [address] documented as of this encounter Procedures Procedure Name Priority Date/Time Associated Diagnosis Comments VITAMIN D, 25-HYDROXY Routine 10/19/2010 12:28 PM EDT Diabetes TSH Routine 10/19/2010 12:28 PM EDT Diabetes HEMOGLOBIN A1C Routine 10/19/2010 12:28 PM EDT Diabetes BASIC METABOLIC PANEL Routine 10/19/2010 12:28 PM EDT Diabetes Hypertension documented in this encounter Results * Microalbumin, urine, random (01/25/2011 11:13 AM EDT) Creatinine, Urine 20 mg/dL CE RNER MILLENNIUM Albumin, Urine 4.8 mg/L JOSE Connor MILLENNIUM Albumin / Creatinin Ratio, Urine 24 mcg/mg Cr [facility]OMPSON ISLASENNIUM Comment: Reference Range* Random collection (mcg/mg creatinine) Normal ?<30 Microalbuminuria ?? 30 - 300 Clinical Albuminuria ?? >300 *[place] [employer]. Diabetic Nephropathy. Diabetes Care 1997;(Suppl 1):S24-S27 Exercise within 24 hour, infection, fever, CHF, marked hyperglycemia, and marked hypertension may elevate urinary albumin excretion over baseline values. Urine specimen (specimen) 01/25/2011 11:13 AM EDT 01/25/2011 11:25 AM EDT Chris Chatman MD URINE ORDERABLES [facility] * (ABNORMAL) Hemoglobin A1c (01/25/2011 10:40 AM EDT) [facility] Hemoglobin A1c 7.9(H) 4.3 - 6.1 % [facility] Estimated Average Glucose 180 mg/dL [facility] Comment: eAG equivalents for HbA1c percentages: [...] into estimated average glucose values. ??Diabetes Care 2008:31(8):6820-7178. Blood specimen (specimen) 01/25/2011 10:40 AM EDT 01/25/2011 11:00 AM EDT Chris Chatman MD CHEMISTRY ORDERABLES [facility] * Vitamin D 25 hydroxy (10/19/2010 12:28 PM EDT) [facility] 25-Hydroxy D2 <4.0 ng/mL CERNER MILLENNIUM Comment: Test Performed by: [facility] [place] [address] [employer] Consultant: Daniela Thakur, Ph.D. 25-Hydroxy D3 33 ng/mL CERNER MILLENNIUM Comment: Test Performed by: [facility] [place] [address] [employer] Consultant: Daniela Thakur, Ph.D. Vitamin D Total 25 OH 33 ng/mL CERNER MILLENNIUM Comment: -- REFERENCE VALUE -- 25-HYDROXY D TOTAL (D2+D3) Optimum levels in the normal population are 25-80 Test Performed by: [facility] [place] [address] [employer] Consultant: Daniela Thakur, Ph.D. Blood specimen (specimen) 10/19/2010 12:28 PM EDT 10/19/2010 1:09 PM EDT Chris Chatman MD CHEMISTRY ORDERABLES Performing Organization Address [facility] de Phone Number CERNER MILLENNIUM * TSH (10/19/2010 12:28 PM EDT) Thyroid Stimulating Hormone 0.68 0.27 - 4.20 mcIU/mL CERNER MILLENNIUM Blood specimen (specimen) 10/19/2010 12:28 PM EDT 10/19/2010 12:34 PM EDT Chris Chatman MD CHEMISTRY ORDERABLES Performing Organization Address [facility] de Phone Number CERNER MILLENNIUM * (ABNORMAL) Basic metabolic panel (10/19/2010 12:28 PM EDT) Glucose 85 60 - 199 mg/dL CERNER MILLENNIUM Comment:Diabetes: [...] PM EDT Chris Chatman MD CHEMISTRY ORDERABLES [facility] * (ABNORMAL) Hemoglobin A1c (10/19/2010 12:28 PM EDT) Hemoglobin A1c 8.2(H) 4.3 - 6.1 % [facility] Estimated Average Glucose 189 mg/dL [facility] Comment: eAG equivalents for HbA1c percentages: [...] into estimated average glucose values. ??Diabetes Care 2008:31(8):2927-5985. Blood specimen (specimen) 10/19/2010 12:28 PM EDT 10/19/2010 12:34 PM EDT Chris Chatman MD CHEMISTRY ORDERABLES [facility] documented in this encounter Visit Diagnoses Diagnosis Diabetes Type II or unspecified type diabetes mellitus without mention of complication, not stated as uncontrolled Hypertension Unspecified essential hypertension Hyperlipidemia Other and unspecified hyperlipidemia documented in this encounter Care Teams Supervisor Assembling Relationship Specialty Start Date End Date Neva Pugh MD [address] [place] [address] PCP - General 02/24/10 04/05/12 documented as of this encounter
--- OUTSIDE RECORDS SUMMARY | 2024-02-15 22:05 | XMS_ITS | Encounter Summary ---
[place] [address] Care Team Providers Care Electrical Engineering Drafting Officer Name Role Phone Neva Pugh MD Primary Care Provider [phone] Reason for Visit * Reason Comments Diabetes Encounter Details Date Type Department Care Team (Late st Contact Info) Description 12/02/2011 2:30 PM EDT Office [place] [phone] Jaylin Salcido [facility] [place] [address] Diabetes mellitus; Hyperlipidemia; Hypertension Discharge Disposition: Home Social History Tobacco [...] Sign Reading Time Taken Comments Blood Pressure 190/93 12/02/2011 3:24 PM EDT Pulse 98 12/02/2011 3:24 PM EDT Temperature - - Respiratory Rate 16 12/02/2011 3:24 PM EDT Oxygen Saturation - - Inhaled Oxygen Concentration - - Weight 92.1 kg (203 lb) 12/02/2011 3:24 PM EDT Height 172.7 cm (5' 8) 12/02/2011 3:24 PM EDT Body Mass Index 30.87 12/02/2011 3:24 PM EDT documented in this encounter Patient Instructions * Patient Instructions* Jaylin Salcido APRN - 12/02/2011 4:03 PM EDT Change target glucose 95-125 documented in this encounter Progress Notes * Jaylin Salcido APRN - 12/02/2011 5:23 PM EDT DATE OF VISIT: 12/02/2011 REASON FOR VISIT: Followup type 1 DM, in fair control using an insulin pump. Also, followup hypertension, hyperlipidemia, and overweight. BRIEF HISTORY: Presents for followup. States her pump and she had to use Lantus insulin for two days until a new pump was delivered. States she expects her hemoglobin A1c to be higher. DIABETES REGIMEN: MiniMed 722 insulin pump. Uses NovoLog. Basal rate 12 a.m. 1.1, 5 a.m. 1.2, 8 a.m. 1.2, 12 noon 1.2, 5 p.m. 1.25, 10 p.m. 1.1. Total basal 28.35. Insulin to carb 1:10 correction factor 1 to 25. Target glucose 80 to 120. Prevention strategies are up-to-date. COMPLICATIONS: Neuropathy, Charcot foot, history of cardiac arrest, has ICD. REVIEW OF SYSTEMS: Depression and Mood: Had a wonderful vacation in [place] with her . Eyes: No recent vision changes. No recent headaches, chest pain, or shortness of breath. No recent GI symptoms. Appetite is good. Sleep pattern has never been good most of her life. Extremities: Feet numbness, Charcot foot. Has podiatry care with Dr. King in [place]. 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 She is overweight. Very pleasant and talkative with good eye contact. Weight today 203 pounds, she has gained 4 pounds since April. Blood pressure was high 190/93, which she states was because she was worried about being late for this appointment and waited a long time to have ICD check but was not able to have that done because the clinic was running behind. Eyes: No retinopathy by green light exam. Neck: No thyromegaly or lymphadenopathy. Heart: Regular rate and rhythm. No murmurs. Lungs are clear to auscultation. Feet: Changes consistent with Charcot foot. Pulses are present. Neuro: Decreased sensation to 10 g of pressure. Some toes overlap other toes. She is wearing a Band-Aid on left second toe. She stubbed it this morning in the shower. LAB DONE TODAY: Hemoglobin A1c 8.0%, previous was 8.6%. IMPRESSION AND PLAN: Diabetes mellitus type 1. The patient was surprised that hemoglobin A1c was lower this time than it was last time because she thinks her pump was not working as effectively as it should have even before it actually stopped working. We reviewed glucose results from memory. No change in regimen today. Reviewed prevention and treatment of hypoglycemia. Reviewed a 24-hour meal plan. States she is eating lots of vegetables during the garden season. Goal for this visit is to lose the 4 pounds that she has gained in the past year. She uses the stationary bike for physical activity. This was a 30-minute office visit with 29-minute spent counseling with patient in the management of glucose levels. We changed her target glucose to 95 to 125 to avoid hypoglycemia. Return to office in 90 days. Will check hemoglobin A1c and other labs that she is due for. Hypertension. Will adjust medications at next office visit, if not closer to 130/80. She requested several refills to be done, which were done and sent to her pharmacy. documented in this encounter Plan of Treatment Upcoming Encounters Date Type Department Care Team (Late st Contact Info) Description 02/29/2024 10:00 AM EST Office Visit Cardiology at [address] [phone] Ruben Hartman, [facility] [place] [address] 04/26/2024 10:00 AM EST Hospital Encounter Non-Invasive Cardiology Lab [facility] [place] [address] Arrived 09/24/2024 4:00 PM EDT Office Visit Cardiology at [address] [place] [phone] Nathaniel Keita MD [facility] [place] [address] documented as of this encounter Procedures Procedure Name Priority Date/Time Associated Diagnosis Comments TSH Routine 12/02/2011 2:20 PM EDT Diabetes mellitus LDL CHOLESTEROL, DIRECT Routine 12/02/2011 2:20 PM EDT Hyperlipidemia HEMOGLOBIN A1C Routine 12/02/2011 2:20 PM EDT Diabetes mellitus COMPREHENSIVE METABOLIC PANEL Routine 12/02/2011 2:20 PM EDT Diabetes mellitus documented in this encounter Results * CBC (with Diff) (04/06/2012 9:08 AM [...] of variation 13.4 10.9 - 14.4 % [facility] Mean Platelet Volume 10.3 9.0 - 12.0 fL [facility] Blood specimen (specimen) 04/06/2012 9:08 AM EST 04/06/2012 9:10 AM EST Narrative Resulting Agency Comment Spec In Lab Chris Chatman MD HEMATOLOGY ORDERABLE S [facility] * (ABNORMAL) Hemoglobin A1c (04/06/2012 9:08 AM EST) Hemoglobin A1c 7.9(H) 4.3 - 6.1 % [facility] Estimated Average Glucose 180 mg/dL [facility] Comment: eAG equivalents for [...] into estimated average glucose values. ??Diabetes Care 2008:31(8):5751-9901. Blood specimen (specimen) 04/06/2012 9:08 AM EST 04/06/2012 9:10 AM EST Narrative Resulting Agency Comment Spec In Lab Chris Chatman MD CHEMISTRY ORDERABLES CERNER MILLENNIUM * (ABNORMAL) Comprehensive metabolic panel (non-fasting) (04/06/2012 9:08 AM EST) Glucose 252(H) 60 - 199 mg/dL [facility] Comment:Diabetes: >=200 mg/d L plus symptoms Blood Urea Nitrogen 23(H) 8 - 18 mg/dL [facility] MILLENNIUM Creatinine 1.63(H) 0.70 - 1.20 mg/dL [facility] MILLENNI[facility] Comment: Please note that the pediatric reference intervals supplied above were not validated at [facility]. Results from pediatric patients should be interpreted [...] MILLENNIUM Est Glomerular Filtration Rate 31(L) >=60 [facility] Comment: The National Kidney Disease Education Program [...] MD CHEMISTRY ORDERABLES CERNER MILLENNIUM * (ABNORMAL) LDL Cholesterol, Direct (12/02/2011 2:20 PM EDT) LDL Cholesterol, Direct 132(H) <=99 mg/dL [facility] Comment: The National Cholesterol Education Program (NCEP) has set the following guidelines for LDL Cholesterol: Reference range: ?? Optimal: ?<100 mg/dL ?? Near Optimal/Above Optimal: ?? 100-129 mg/dL ?? Borderline high: ?130-159 mg/dL ?? High: ? 160-189 mg/dL ?? Very high: ?>or=687 mg/dL REJI 2001: 285(36):1665-3492 Blood specimen (specimen) 12/02/2011 2:20 PM EDT 12/02/2011 2:38 PM EDT Narrative Resulting Agency Comment Spec In Lab Chris Chatman MD CHEMISTRY ORDERABLES Performing Organization Address [facility] Co de Phone Number [facility] * TSH (12/02/2011 2:20 PM EDT) Thyroid Stimulating Hormone 0.78 0.27 - 4.20 mcIU/mL [facility] Blood specimen (specimen) 12/02/2011 2:20 PM EDT 12/02/2011 2:38 PM EDT Narrative Resulting Agency Comment Spec In Lab Chris Chatman MD CHEMISTRY ORDERABLES Performing Organization Address [facility] Co de Phone Number [facility] * (ABNORMAL) Hemoglobin A1c (12/02/2011 2:20 PM EDT) Hemoglobin A1c 8.0(H) 4.3 - 6.1 % [facility] Estimated Average Glucose 183 mg/dL [facility] Comment: eAG equivalents for HbA1c percentages: [...] into estimated average glucose values. ??Diabetes Care 2008:31(8):4823-1956. Blood specimen (specimen) 12/02/2011 2:20 PM EDT 12/02/2011 2:38 PM EDT Narrative Resulting Agency Comment Spec In Lab Chris Chatman MD CHEMISTRY ORDERABLES [facility] * (ABNORMAL) Comprehensive metabolic panel (non-fasting) (12/02/2011 2:20 PM EDT) [facility] Glucose 110 60 - 199 mg/dL [facility] Comment:Diabetes: >=200 mg/d L plus symptoms Blood Urea Nitrogen 21(H) 8 - 18 mg/dL [facility] Creatinine 1.11 0.70 - 1.20 mg/dL [facility] Comment: Please note that the pediatric reference intervals supplied above were not validated at [facility]. Results from pediatric patients should be interpreted [...] In Lab Chris Chatman MD CHEMISTRY ORDERABLES [facility] documented in this encounter Visit Diagnoses Diagnosis Diabetes mellitus Type II or unspecified type diabetes mellitus without mention of complication, not stated as uncontrolled Hyperlipidemia Other and unspecified hyperlipidemia Hypertension Unspecified essential hypertension documented in this encounter Care Teams Electrical Engineering Drafting Officer Relationship Specialty Start Date End Date Neva Pugh MD [address] [place] [address] PCP - General 02/24/10 04/05/12 documented as of this encounter
--- OUTSIDE RECORDS SUMMARY | 2024-02-15 22:05 | XMS_ITS | Encounter Summary ---
[place] [address] Care Team Providers Care Embedded Firmware Engineer Name Role Phone Charleen Field MD Primary Care Provider [phone] Reason for Visit * Reason Comments Follow-up Encounter Details Date Type Department Care Team (Late st Contact Info) Description 01/06/2012 9:10 AM EDT Follow-Up Cardiology at [address] [phone] Thaddeus Cespedes RN Andrus, Bruce W, MD [facility] [place] [address] Fatigue (Primary Dx); Hypertension Discharge Disposition: Home Social History Tobacco [...] Time Taken Comments Blood Pressure 150/90 01/06/2012 8:58 AM EDT Pulse 84 01/06/2012 8:58 AM EDT Temperature - - Respiratory Rate - - Oxygen Saturation 98% 01/06/2012 8:58 AM EDT Inhaled Oxygen Concentration - - Weight 90.9 kg (200 lb 4.8 oz) 01/06/2012 8:58 A M EDT Height 172.7 cm (5' 7.99) 01/06/2012 8:58 AM ED T Body Mass Index 30.46 01/06/2012 8:58 AM EDT documented in this encounter Progress Notes * Milind Quezada MD - 01/06/2012 9:53 AM EDT [facility] The patient is a 66 y.o. followed by CHARLEEN FIELD MD with the following problems: Patient Active Problem List Diagnoses Code ??? CHD, s/p arrest and 2v CABG in 2009, preserved LV function 414.00A ??? Diabetes mellitus type 1 250.01BD ??? GERD (gastroesophageal reflux disease) 530.81S ??? Hypertension 401.9AJ ??? Ventricular fibrillation- with ICD 427.41 Current outpatient prescriptions Medication Sig Dispense Refill ??? metoprolol succinate [...] by mouth daily. 90 tablet 3 ??? SUBCUTANEOUS INSULIN PUMP (INSULIN PUMP BS1338 [facility]) by [facility]Non-Drug; Combo Route) route. ??? aspirin 81 mg chewable tablet Take 81 mg by mouth daily. ??? acetaminophen (TYLENOL) 325 mg tablet Take 650 mg by mouth every 4 hours as needed. ??? multivitamin (DAILY MULTIPLE) tablet ??? glucagon, [...] tablet 2 Tablet(s), PO, Once daily,PRN ??? Diabetic Supplies, Miscellan. Misc by [facility]Non-Drug; Combo Route) route. Insulin Pump Suppliesand Diabetes Testing Supplies. Pt. Tests BS 4x/day. 90 day supply. Manually faxed to [email or web address] @ . ??? Blood Sugar Diagnostic, Drum (ACCU-CHEK COMPACT TEST) Strp 6 strips by [facility].(Non-Drug; Combo Route) route 6 times daily. 4-6 times daily 6 Box 3 ??? insulin aspart (NOVOLOG) 100 unit/mL vial injection Inject 50-60 Units subcutaneously daily. 60mL PRN ??? Insulin [place], Disposable, (BD INSULIN PEN NEEDLE UF SHORT) 31 X 5/16 Ndle by [facility].(Non-Drug; Combo Route) route. Allergies: Lisinopril, Ibandronate sodium, Amiodarone, Codeine phos, Propoxyphene n- acetaminophen, Adhesive tape, Kiwi (actinidia chinensis), Alendronate sodium, Celecoxib, Gabapentin and Ezetimibe BP 150/90 Pulse 84 Ht 172.7 cm (5' 7.99) Wt 90.855 kg (200 lb 4.8 oz) BMI 30.46 kg/m2 SpO2 98% Interval History: Liane is seen in followup for her cardiovascular problems. These include [id number] cardiac arrest with implantation of ICD and bypass surgery. Since I last saw her, she continues to complain of symptoms of fatigue. These have been persistent. She feels like she just does not have as much energy as she would like. She does not seem to develop stamina. She worries that her thyroid may be to blame. Her TSH levels have been on the low-normal side; she misinterpreted this as suggesting underactive thyroid. She will discuss this more with the scrum project manager. She self-discontinued her Lasix entirely because of some persistent dizziness. She has had some nonsustained ventricular tachycardia, but it is not clear whether this correlates with her symptoms of dizziness. Her dizziness is better off the diuretic, and she has had no peripheral edema. She has also decreased her metoprolol to a half a tablet, or only 12.5 mg once daily. Home blood pressure readings have been excellent. She and her sleep in different bedrooms. She does not snore. She tries to keep the room dark. She has had long-standing insomnia and poor quality sleep since her late 30s or early 40s. She has not been tested for sleep apnea. Physical Examination: This is a pleasant, mildly overweight woman in no acute distress. Her vital signs are noted above. Her office reading contrasts sharply with her home blood pressure readings. Skin: Warm and dry. HEENT: Nonicteric. Lungs are clear to auscultation posteriorly and anteriorly. Heart: Venous pressure is not elevated. No carotid bruits. Heart sounds are regular. She has no murmurs, rubs, or gallops. Abdomen: Soft, nontender. Extremities: No edema. Neurologic: Appropriate affect, good cognition. She does not appear depressed. She has no focal motor deficits. Laboratory Data: She has not had an echocardiogram since her bypass surgery in 2009. Assessment and Plan: 1. Persistent fatigue: I think this is likely related to her relatively poor quality and quantity of sleep. I think this is unlikely to represent a manifestation of cardiac dysfunction, but I think it is prudent to assess LV function, as it has been several years and she has a symptom. This will be arranged for today. I have asked her to decrease her metoprolol to 12.5 mg once daily as a regular dose, and I have discontinued her Lasix. 2. ICD for tqy-hm-hlsgwzop cardiac arrest: Good function. She is not using this for pacing at all. She has had only nonsustained episodes, which have spontaneously converted. 3. Concern regarding thyroid: She will bring this up with Endocrinology. 4. Next visit in one year, sooner if needed. Results of echocardiogram by letter. MILIND QUEZADA MD 01/06/2012 CC: CHARLEEN FIELD MD documented in this encounter Plan of Treatment Upcoming Encounters Date Type Department Care Team (Late st Contact Info) Description 02/29/2024 10:00 AM EST Office Visit Cardiology at [address] [place] [phone] Ruben Hartman PA [facility] [place] [address] 04/26/2024 10:00 AM EST Hospital Encounter Non-Invasive Cardiology Lab [facility] [place] [address] Arrived 09/24/2024 4:00 PM EDT Office Visit Cardiology at [address] [place] [phone] Nathaniel Keita MD [facility] [place] [address] documented as of this encounter Results * Echo Transthoracic (Complete) (01/06/2012 2:30 PM EDT) EF 60 [employer] Anatomical Region Laterality Modality Other 01/06/2012 Narrative 01/06/2012 2:42 PM EDT Procedure: ? Transthoracic Echocardiogram Patient: ? KAN Tyler ? (Age): 1945(66) Med Rec#: ?[id number] ? Sex: ?F ? Site Loc: [facility] ? Ht / Wt: ??172(cm)/91(kg) Pt. Loc: ? Echo Lab ? BSA: ?2.09 Study Date: ?01/06/2012 ? Pt. Type: Outpatient Tape: ? Referring: Milind Quezada ([id number]) Battery Container Tester Aluminum: Erendira Keller RDCS Diagnosis: ??CAD, unspecified (414.4) ??Fatigue (780.79) CPT Code(s): ??Echo Full (75500), ??Spectral Doppler (69847), ??Color Doppler (14714), ??Definity (33747XD), Indication(s): ??Fatigue Rhythm: HR ?BP 85 ?145/80 [...] ? Mid-Inferior ?Normal ? Mid-Inferoseptal ?Normal ? [place]-Septal ? Normal ? [place]-Anterior ? Normal ? [place]-Lateral ?Normal ? [place]-Inferior ? Normal ? [place]-Tip ?Normal ? Chambers ?Value ?Units (Range) ? [...] 01/06/2012 14:41:31 Images reviewed and interpretation verified [facility] Cardiac Ultrasound Laboratory Procedure Note Alexander Abernathy MD - 01/06/2012 Procedure: Transthoracic Echocardiogram Patient: KAN Tyler (Age): 1945(66) Med Rec#: [id number] Sex: F Site Loc: [facility] Ht / Wt: 172(cm)/91(kg) Pt. Loc: Echo Lab BSA: 2.09 Study Date: 01/06/2012 Pt. Type: Outpatient Tape: Referring: Milind Quezada ([id number]) Battery Container Tester Aluminum: Erendira Keller [facility] Diagnosis: CAD, unspecified (414.4) Fatigue (780.79) CPT Code(s): Echo Full (57866), Spectral Doppler (19518), Color Doppler (26013), Definity (09003BI), Indication(s): Fatigue Rhythm: HR BP 85 145/80 [...] Normal Mid-Posterolateral Normal Mid-Inferior Normal Mid-Inferoseptal Normal [place]-Septal Normal [place]-Anterior Normal [place]-Lateral Normal [place]-Inferior Normal [place]-Tip Normal Chambers Value Units (Range) LV EF [...] 01/06/2012 14:41:31 Images reviewed and interpretation verified [facility] Cardiac Ultrasound Laboratory Milind Quezada MD ECHO ORDERABLES documented in this encounter Visit Diagnoses Diagnosis Fatigue- Primary Other malaise and fatigue Hypertension Unspecified essential hypertension Fatigue Other malaise and fatigue documented in this encounter Care Teams Embedded Firmware Engineer Relationship Specialty Start Date End Date Charleen Field MD [address] [place] [address] PCP - General 02/24/10 04/05/12 documented as of this encounter
--- OUTSIDE RECORDS SUMMARY | 2024-02-15 22:06 | XMS_ITS | Encounter Summary ---
Author Organization [facility] Address [address] [place] [address] Care Team Providers Care Composition Weatherboard Applier Name Role Phone Alexander Adams MD Primary Care Provider [phone] Encounter Details Date Type Department Care Team ([facility] st Contact Info) Description 11/22/2014 Results Only [facility] [phone] Kan King, DPNayeli [address] [place] [phone] Social History Tobacco Use Types Packs/Day Years Used Date Smoking Tobacco: Never Assessed Comments Unknown Sex and Gender Information Value Date Recorded Sex Assigned at Female 12/22/2020 11:08 EDT Legal Sex Female 18:47 EST Gender Identity Female 12/22/2020 11:08 EDT Sexual Orientation Not on file documented as of this encounter Plan of Treatment Not on file documented as of this encounter Procedures Procedure Name Priority Date/Time Associated Diagnosis Comments SURGICAL PATHOLOGY Routine 11/22/2014 8:39 EDT documented in this encounter Results * SURGICAL PATHOLOGY (11/22/2014 8:39 EDT) Pathology Report: SURGICAL PATHOLOGY REPORT Reports generated via electronic interface contain original data; however they are lacking the format of the original report. Caution should be taken when reading/interpret ing unformatted reports. Name: ? LIANE OMER ? Accession #: ? [id number] ? : ? 1945 (Age: 69) ??F ? Collect Date: ? 11/22/2014 ? Location: ? [facility] ? Receive Date: ? 11/22/2014 ? Provider: KAN KING DPM Copy to: ALEXANDER ADAMS MD ? Final Pathologic Diagnosis: RIGHT FOURTH TOE, DIABETIC ULCER, AMPUTATION (GROSS ONLY): - ??Ulcer to subcutaneous tissue. - ??Distal margin grossly viable. Document reviewed and electronically signed by: DIDI BEARD MD Report ??Date: 11/26/2014 17:59 By the signature above, the attending physician certifies that he/she has personally conducted a gross and/or microscopic examination of the described specimens and rendered or confirmed the above diagnosis. Specimen(s) Received: Right 4th toe, chronic diabetic ulcer PIPJ to distal Clinical History: Diabetic ulcer, tip, Rt 4th toe, with hammertoe deformity Gross Description: ? Received in formalin labelled with proper patient identification (initials M, S) and right 4th toe, chronic diabetic ulcer is a single distal toe amputation (2.5 cm from proximal to distal x 2.3 cm from medial to lateral x 2.3 cm from dorsal to plantar) that has been amputated proximal to the distal phalanx. ??The skin is cartwright-pink with a clean cut, grossly viable margin. ??The unguis is disrupted, with an adjacent cartwright-purple hemorrhagic ulcer (1.2 x 0.7 cm). ??The bone and soft tissue margin is grossly viable. ??Also within the container is a portion of bone (1.3 x 0.8 x 0.6 cm) with a minimal amount of attached soft tissue. ??No sections are submitted. ??Gross only. 11/25/2014 9:25 AM End of Report [facility] 11/22/2014 8:39 EDT 11/22/2014 8:39 EDT us Kan King DPM PATHOLOGY ORDERABLES Fin al Result Performing Organization Address City/State/[facility] Co de Phone Number [facility] [address] [place] [address] documented in this encounter Visit Diagnoses Not on filedocumented in this encounter Care Teams Composition Weatherboard Applier Relationship Specialty Start Date End Date Alexander Adams MD [address] [place] [address] PCP - General 10/23/12 documented as of this encounter
--- OUTSIDE RECORDS SUMMARY | 2024-02-15 22:06 | XMS_ITS | Encounter Summary ---
Author Organization [facility] [place] [address] Care Team Providers Care Measuring Machine Tender Name Role Phone Neva Pugh MD Primary Care Provider [phone] Encounter Details Date Type Department Care Team (Late st Contact Info) Description 03/24/2010 [place] [id number] Jaylin Salcido APRN [facility] [place] [address] Social History Tobacco Use Types Packs/Day Years [...] AM EST Office Visit Cardiology at [address] [address] Ruben Hartman, PA [facility] [place] [address] 04/26/2024 10:00 AM EST Hospital Encounter Non-Invasive Cardiology Lab [facility] [place] [address] Arrived 09/24/2024 4:00 PM EDT Office Visit Cardiology at [address] [place] [phone] Nathaniel Keita MD [facility] [place] [address] documented as of this encounter Procedures Procedure Name Priority Date/Time Associated Diagnosis Comments U ALBUMIN/CRE RATIO Routine 03/24/2010 8 :40 AM EST DIFFERENTIAL, AUTOMATED VERNON 03/24/20 10 7:41 AM EST CBC (WITH DIFF) VERNON 03/24/2010 7:41 AM EST ALANINE AMINOTRANSFERASE VERNON 010 7:41 AM EST ASPARTATE AMINOTRANSFERASE VERNON 03/24/2010 7:41 AM EST LDL CHOLESTEROL, DIRECT VERNON 03/24/20 10 7:41 AM EST HDL/CHOL PROFILE VERNON 03/24/2010 7:41 AM EST HEMOGLOBIN A1C VERNON 03/24/2010 7:41 AM EST BASIC METABOLIC PANEL VERNON 03/24/2010 7:41 AM EST documented in this encounter Results * MICROALBUMIN LEVEL RANDOM URINE (03/24/2010 8:40 AM EST) Creatinine, Urine 149 mg/dL CE RNER MILLENNIUM Albumin, Urine 23.4 mg/L JOSE Connor MILLENNIUM Albumin / Creatinin Ratio, Urine 16 mcg/mg Cr THOM[facility]ON ISLASENNIUM Comment: Reference Range* Random collection (mcg/mg creatinine) Normal ?<30 Microalbuminuria ?? 30 - 300 Clinical Albuminuria ?? >300 *[place] Diabetes Association. Diabetic Nephropathy. Diabetes Care 1997;(Suppl 1):S24-S27 Exercise within 24 hour, infection, fever, CHF, marked hyperglycemia, and marked hypertension may elevate urinary albumin excretion over baseline values. Urine specimen (specimen) 03/24/2010 8:40 AM EST 03/24/2010 9:03 AM EST Jaylin Patito Deepthia PICKER FEEDER URINE ORDERABLES Performing Organization Address [facility] de Phone Number [facility] * (ABNORMAL) HDL CHOLESTEROL (03/24/2010 7:41 AM EST) Cholesterol, Total 267(H) <=199 mg/dL [facility] Comment: Recommendations of the NCEP Adult Treatment Panel for the following risk cutoff thresholds for the [place] population: Desirable: <200 mg/dL Borderline High: 200-239 mg/dL High: > or = 240 mg/dL HDL Cholesterol 46 >=40 mg/dL [facility] Comment: Reference range: ??Low HDL: ?? < 40 mg/dL ??Normal: ?40-60 mg/dL ??Desirable: > 60 mg/dL REJI 2001; 285(19):2342-7819 Cholesterol/HDL Ratio 5.8 ratio [facility] Comment: A Cholesterol to HDL ratio below 4:1 is desirable. ??Studies suggest that increased CAD risk occurs at ratios above 5 for females and above 6 for men. ? [place] Heart Association ??(http://www.americanheart.org) ? Aurelia Int Med, 1994; 121:641 ? AM J Med, 1998; 105(1A):48S Blood specimen (specimen) 03/24/2010 7:41 AM EST 03/24/2010 7:55 AM EST Jaylin Patito Omari MARSHALLN CHEMISTRY ORDERABLE S Performing Organization Address [facility] de Phone Number [facility] * (ABNORMAL) LDL CHOLESTEROL, DIRECT (03/24/2010 7:41 AM EST) LDL Cholesterol, Direct 188(H) <=99 mg/dL CERNER MILLENNIUM Comment: The National Cholesterol Education Program (NCEP) has set the following guidelines for LDL Cholesterol: Reference range: ?? Optimal: ?<100 mg/dL ?? Near Optimal/Above Optimal: ?? 100-129 mg/dL ?? Borderline high: ?130-159 mg/dL ?? High: ? 160-189 mg/dL ?? Very high: ?>qs=398 mg/dL REJI 2001: 285(50):0250-2867 Blood specimen (specimen) 03/24/2010 7:41 AM EST 03/24/2010 7:55 AM EST Jaylin Salcido APRN CHEMISTRY ORDERABLE S [facility] * (ABNORMAL) BASIC METABOLIC PANEL (NON-FASTING) (03/24/2010 7:41 AM EST) Glucose 155 <=199 mg/dL CERNER MILLENNIUM Comment:Diabetes: >=200 mg/d L plus symptoms Blood Urea Nitrogen 29(H) 8 - 18 mg/dL CERNER MILLENNIUM Creatinine 1.10 0.70 - 1.20 mg/dL CERNER MILLENNIUM Sodium 137 135 - 145 mmol/L CERNER MILLENNIUM Potassium [...] 5 - 15 mmol/L CERNER MILLENNIUM Calcium 9.6 8.5 - 10.5 mg/dL CERNER MILLENNIUM Est Glomerular Filtration Rate 50(L) >=60 CERNER MILLENNIUM Comment: The National Kidney Disease Education Program (NKDEP) has recommended all laboratories report estimated GFR (eGFR) along with plasma creatinine measurements to assist you with recognition of early kidney disease. Caveats: ??Plasma creatinine should be at steady-state (unchanged within the past week). ??Patient age > = 18 years, and for Americans multiply eGFR by 1.2. At present, NKDEP does NOT recommend using [...] disease. References: http://nkdep.nih.gov/resources/NKDEP_Suggestn4Labs_0606_508.pdf http://www.kidney.org/professionals/kls/pdf/faq_gfr.pdf Blood specimen (specimen) 03/24/2010 7:41 AM EST 03/24/2010 7:55 AM EST Jaylin E Bilotta PICKER FEEDER CHEMISTRY ORDERABLE S Performing Organization Address [facility] Co de Phone Number [facility] [employer] * ASPARTATE AMINOTRANSFERASE (03/24/2010 7:41 AM EST) Aspartate Aminotransferase 29 0 - 30 unit/L CERNER MILLENNIUM Blood specimen (specimen) 03/24/2010 7:41 AM EST 03/24/2010 7:55 AM EST Jaylin E Bilotta PICKER FEEDER CHEMISTRY ORDERABLE S Performing Organization Address City/[facility] Co de Phone Number THOM[facility]ON TENA * ALANINE AMINOTRANSFERASE (03/24/2010 7:41 AM EST) Alanine Aminotransferase 30 0 - 30 unit/L [facility] TENA Blood specimen (specimen) 03/24/2010 7:41 AM EST 03/24/2010 7:55 AM EST Jaylin Salcido PICKER FEEDER CHEMISTRY ORDERABLE S [facility] * (ABNORMAL) HEMOGLOBIN A1C (03/24/2010 7:41 AM EST) Hemoglobin A1c 8.0(H) 4.3 - 6.1 % [facility] Estimated Average Glucose 183 mg/dL [facility] Comment: eAG equivalents for HbA1c percentages: HbA1c(%) ?eAG(mg/dL) 6.0 ?126 6.5 ?140 7.0 ?154 7.5 ?169 8.0 ?183 8.5 ?197 9.0 ?212 9.5 ?226 10.0 ? 240 Limitations: The eAG calculation has not been validated on women, individuals below 18 years old and above 70 years old, and individuals with hemoglobinopathies. Additional resources are available on the ADA website: ??http://professional.diabetes.org/glucosecalculator.aspx Reference: lAfred JEFFRIES, Risa Chavez, Sergio R, et al. ??Translating the A1C assay into estimated average glucose values. ??Diabetes Care 2008:31(8):6277-7058. Blood specimen (specimen) 03/24/2010 7:41 AM EST 03/24/2010 7:55 AM EST Jaylin E Bilotta PICKER FEEDER CHEMISTRY ORDERABLE S [facility] ISLASENNI[facility] * REFLEX LAB-A-DIFF (03/24/2010 7:41 AM EST) Neutrophil % 63.9 34.0 - 71.0 % CERNER MILLENNIUM Neutrophil Absolute 5.19 1.50 - 6.30 x10(3)/mcL CERNER MILLENNIUM Lymph % 26.5 19.0 - 53.0 % CERNER MILLENNIUM Lymphocytes Abs 2.2 1.0 - 3.6 x10(3)/mcL CERNER MILLENNIUM Monocyte % 5.9 4.0 - 13.0 % CERNER MILLENNIUM Monocyte Abs 0.5 0.2 - 1.0 x10(3)/mcL CERNER MILLENNIUM Eos % 3.0 0.0 - 7.0 % CERNER MILLENNIUM Eosinophils Abs 0.2 0.0 - 0.5 x10(3)/mcL CERNER MILLENNIUM Basophil % 0.5 0.0 - 2.0 % CERNER MILLENNIUM Baso Absolute 0.0 0.0 - 0.2 x10(3)/mcL CERNER MILLENNIUM Immature Gran % 0.20 0.00 - 0.66 % CERNER MILLENNIUM Comment: Immature granulocytes(IG's)percentage and absolute count will include metamyelocytes, myelocytes, and promyelocytes. Blood smears from CBC's yielding IG's will be scanned manually for concordance. If this scan disagrees with the automated IG or if promyelocytes are noted, a manual differential will be performed. Immature Gran Absolute 0.02 0.00 - 0.05 x10(3)/mcL CERNER MILLENNIUM Blood specimen (specimen) 03/24/2010 7:41 AM EST 03/24/2010 7:55 AM EST Jaylin E Bilotta PICKER FEEDER HEMATOLOGY ORDERABL ES C[facility]ER MILLENNIUM * CBC (03/24/2010 7:41 AM EST) White Blood Cell 8.1 4.0 - 10.0 x10(3)/mcL CERNER MILLENNIUM Red Blood Cell 4.28 3.93 - 5.22 x10(6)/mcL CERNER MILLENNIUM Hemoglobin 12.9 11.2 - 15.7 gm/dL CERNER MILLENNIUM Hematocrit 37.4 34.0 - 45.0 % CERNER MILLENNIUM Mean Cell Volume 87.4 79.0 - 94.0 fL CERNER MILLENNIUM Mean Cell Hemoglobin 30.1 26.6 - 32.2 pg CERNER MILLENNIUM Mean Cell Hemoglobin Concentration 34.5 32.0 - 36.5 gm/dL CERNER MILLENNIUM Platelet 198 145 - 370 x10(3)/mcL CERNER MILLENNIUM RDW Standard Deviation 42.8 35.0 - 46.0 fL CERNER MILLENNIUM RDW coefficient of variation 13.5 10.9 - 14.4 % CERNER MILLENNIUM Mean Platelet Volume 10.4 9.0 - 12.0 fL CERNER MILLENNIUM Blood specimen (specimen) 03/24/2010 7:41 AM EST 03/24/2010 7:55 AM EST Jaylin E Deepthia PICKER FEEDER HEMATOLOGY ORDERABL ES [facility] TENA documented in this encounter Visit Diagnoses Not on filedocumented in this encounter Care Teams Measuring Machine Tender Relationship Specialty Start Date End Date Neva Pugh MD [address] [place] [address] PCP - General 02/24/10 04/05/12 documented as of this encounter
--- OUTSIDE RECORDS SUMMARY | 2024-02-15 22:06 | XMS_ITS | Encounter Summary ---
Author Organization [facility] Address [address] [place] [address] Care Team Providers Care Dyeing Machine Feeder Name Role Phone Alexander Adams MD Primary Care Provider [phone] Encounter Details Date Type Department Care Team (Late st Contact Info) Description 06/27/2014 Results Only [facility] Laboratory Services - [facility] ([facility] [address] [place] [address] Esvin Hackett, [address] [facility] ,[facility] [address] [place], [place] [id number] Social History Tobacco Use Types Packs/Day Years [...] Date/Time Associated Diagnosis Comments SURGICAL PATHOLOGY Routine 06/26/2014 8:51 EDT documented in this encounter Results * SURGICAL PATHOLOGY (06/26/2014 8:51 EDT) Pathology Report: SURGICAL PATHOLOGY REPORT Reports generated via electronic interface contain original data; however they are lacking the format of the original report. Caution should be taken when reading/interpreting unformatted reports. Name: ? LIANE OMER ? Accession #: ? [id number] ? : ? 1945 (Age: 68) ??F ? Collect Date: ? 06/26/2014 ? Location: ? [facility] ? Receive Date: ? 06/27/2014 ? Provider: ESVIN HACKETT DO Copy to: ? Final Pathologic Diagnosis: SKIN OF ARM, RIGHT UPPER, EXCISION: - Squamous cell carcinoma in situ. ?? - Follicular involvement not identified. - Margins negative for squamous cell carcinoma in situ. ?? Microscopic Description: The stratum corneum is thickened by confluent parakeratosis. ??The epidermis is hyperplastic with accentuation of the rete architecture. ??The keratinocytes show a significant degree of nuclear atypia that involves the full thickness of the epidermis. ??The cells have an increased nuclear-cytoplasmic ratio with nuclear pleomorphism and hyperchromasia. ??There is a moderately dense lymphohistiocytic infiltrate in the superficial dermis. ??(Dr. Longoria)/ljn Document reviewed and electronically signed by: MARIUM LONGOIRA MD Report ??Date: 06/28/2014 14:14 By the signature above, the attending physician certifies that he/she has personally conducted a gross and/or microscopic examination of the described specimens and rendered or confirmed the above diagnosis. Specimen(s) Received: Lesion right upper arm Clinical History: Right posterior arm skin lesion Gross Description: ? Received in formalin labelled with proper patient identification (initials M, S) and right upper arm is an unoriented elliptical excision of pink-cartwright skin (2.0 x 1.1 cm and is excised to a depth of 0.5 cm). There is a central cartwright-yellow scaly plaque (1.5 x 0.9 x 0.1 cm) that includes an eccentric cartwright-brown granular papule that measures 0.5 x 0.5 x 0.2 cm. The margins are inked blue. The specimen is serially sectioned and entirely submitted as 1-4 central sections and 5 tips, reverse en face. Sp [place] 06/27/2014 9:18 AM End of Report [facility] 06/26/2014 8:51 EDT 06/27/2014 8:51 EDT us Esvin Hackett DO PATHOLOGY ORDERABLES Fi nal Result [facility] [address] [place] [address] documented in this encounter Visit Diagnoses Not on filedocumented in this encounter Care Teams Dyeing Machine Feeder Relationship Specialty Start Date End Date Alexander Adams MD [address] [place] [id number] PCP - General 10/23/12 documented as of this encounter
--- OUTSIDE RECORDS SUMMARY | 2024-02-15 22:06 | XMS_ITS | Encounter Summary ---
Author Organization [facility] Address [address] [place] [address] Care Team Providers Care Service Line Layer Name Role Phone Neva Pugh MD Primary Care Provider [phone] Encounter Details Date Type Department Care Team (Late st Contact Info) Description 07/31/2010 Results Only [facility] Laboratory Services - [facility] ([facility]) [address] [place] [address] Kan King, [facility] [address] [place] [address] Social History Tobacco Use Types Packs/Day [...] Date/Time Associated Diagnosis Comments SURGICAL PATHOLOGY Routine 07/31/2010 0:00 EDT documented in this encounter Results * SURGICAL PATHOLOGY (07/31/2010 0:00 EDT) Pathology Report: SURGICAL PATHOLOGY REPORT ? Reports generated via electronic interface contain original data; ? however they are lacking the format of the original report. ? Caution should be taken when reading/interpreti ng unformatted reports. ? Name: ? KAN, LIANE Tyler ? Accession #: ? [id number] ? : ? 1945 (Age: 64) ??F ? Collect Date: ? 07/31/2010 ? Location: ? [facility] ? Receive Date: ? 07/31/2010 ? Provider: KAN S SCHEIN DPM ? Copy to: NEVA BERRIAN MD ? Final Pathologic Diagnosis: ? Bone, right 5th metatarsal head, amputation: ? 1. ?Bone with cartilaginous cap. ? - Negative for osteomyelitis. ? Document reviewed and electronically signed by: ? DIDI BEARD MD ? Report ??Date: 08/10/2010 10:47 ? By the signature above, the attending physician certifies that he/she has ? personally conducted a gross and/or microscopic examination of the described ? specimens and rendered or confirmed the above diagnosis. ? Specimen(s) Received: ? Right 5th metatarsal head ? Clinical History: ? Right 5th metatarsal head, possible osteomyelitis/diab etic ulcer ? Gross Description: ? Received in formalin labelled Liane Cole and right 5th metatarsal ? head is a cartwright-yellow 1.4 x 1.3 x 0.9 cm portion of bone consistent with an end adjacent to a joint space. ??The external aspect is cartwright-yellow and smooth. ??The ?? cut surfaces of the trabecular bone are yellow and homogeneous. ??The specimen is longitudinally trisected and two registered representative sections are submitted in one ?? cassette following decalcification. ??/adi ? End of Report ? [facility] 07/31/2010 07/31/2010 17: 53 EDT us Kan King DPM PATHOLOGY ORDERABLES Fin al Result Performing Organization Address City/State/[facility] Co de Phone Number [facility] [address] [place] [address] documented in this encounter Visit Diagnoses Not on filedocumented in this encounter Care Teams Service Line Layer Relationship Specialty Start Date End Date Neva Pugh MD [address] [place] [address] PCP - General 03/12/09 10/22/12 documented as of this encounter
--- OUTSIDE RECORDS SUMMARY | 2024-02-15 22:06 | XMS_ITS | Encounter Summary ---
Author Organization [facility] Address [address] [place] [address] Care Team Providers Care Filling Station Attendant Name Role Phone Neva Pugh MD Primary Care Provider [phone] Encounter Details Date Type Department Care Team (Late st Contact Info) Description 03/02/2012 Results Only [facility] Laboratory Services - [facility] ([facility] [place]) [address] [place] [address] Alexander Adams MD [address] [place], [place] [address] Social History Tobacco Use Types Packs/Day Years [...] Date/Time Associated Diagnosis Comments SURGICAL PATHOLOGY Routine 03/02/2012 0:00 EST documented in this encounter Results * SURGICAL PATHOLOGY (03/02/2012 0:00 EST) Pathology Report: SURGICAL PATHOLOGY REPORT Reports generated via electronic interface contain original data; however they are lacking the format of the original report. Caution should be taken when reading/interpreti ng unformatted reports. Name: ? LIANE OMER ? Accession #: ? [id number] ? : ? 1945 (Age: 66) ??F ? Collect Date: ? 03/02/2012 ? Location: ? [facility] ? Receive Date: ? 03/03/2012 ? Provider: ALEXANDER ADAMS MD Copy to: NEVA PUGH MD ? Final Pathologic Diagnosis: ? Skin of forearm, left, shave excision: 1. 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 ?- Lesion extends to peripheral edge and base of biopsy specimen. Microscopic Description: ? The stratum corneum is thickened by confluent parakeratosis. ??The epidermis is hyperplastic with accentuation of the rete architecture. ??The keratinocytes show a significant degree of nuclear atypia that involves the full thickness of the epidermis. ??The cells have an increased nuclear-cytoplasmi c ratio with nuclear pleomorphism and hyperchromasia. ??The atypia also involves the epithelium of follicular structures. ??There is a moderately dense lymphohistiocytic infiltrate in the superficial dermis. ??(Dr. Valentine)/[facility] Document reviewed and electronically signed by: SOLOMON VALENTINE MD Report ??Date: 03/06/2012 13:19 By the signature above, the attending physician certifies that he/she has personally conducted a gross and/or microscopic examination of the described specimens and rendered or confirmed the above diagnosis. Specimen(s) Received: ? 1.0 cm crusted lesion L forearm shave excision Clinical History: ? Enlarging, lichenified lesion L forearm; R/O squamous cell CA Gross Description: ? Received in formalin labelled Liane Omer and L forearm is a 1.0 x 0.7 x 0.4 cm ovoid, cartwright-white, focally cartwright, crusted nodule. ??The margin is inked. ??The specimen is trisected and entirely submitted in a single cassette. (Darinel Sarah)/larry End of Report [facility] 03/02/2012 03/03/2012 7:2 8 EST us Alexander Adams MD PATHOLOGY ORDERABLES Final Res ult [facility] [address] [place] [address] documented in this encounter Visit Diagnoses Not on filedocumented in this encounter Care Teams Filling Station Attendant Relationship Specialty Start Date End Date Neva Pugh MD [address] [place] [id number] PCP - General 03/12/09 10/22/12 documented as of this encounter
--- OUTSIDE RECORDS SUMMARY | 2024-02-15 22:06 | XMS_ITS | Encounter Summary ---
[place] [address] Care Team Providers Care Phytopathologist Name Role Phone Neva Pugh MD Primary Care Provider [phone] Encounter Details Date Type Department Care Team (Late st Contact Info) Description 03/24/2010 8:30 AM EST Office [place] [address] Jaylin Salcido [facility] [place] [address] Discharge Disposition: Home Social History Tobacco Use [...] AM EST Office Visit Cardiology at [address] [address] Ruben Hartman, PA [facility] [address] 04/26/2024 10:00 AM EST Hospital Encounter Non-Invasive Cardiology Lab [facility] [place] [address] Arrived 09/24/2024 4:00 PM EDT Office Visit Cardiology at [address] [place] [id number] Nathaniel Keita MD [facility] [place] [address] documented as of this encounter Visit Diagnoses Not on filedocumented in this encounter Care Teams Phytopathologist Relationship Specialty Start Date End Date Neva Pugh MD [address] [place] [address] PCP - General 02/24/10 04/05/12 documented as of this encounter
--- OUTSIDE RECORDS SUMMARY | 2024-02-15 22:06 | XMS_ITS | Referral Summary ---
Author Organization [facility] Address [address] [place] [address] Care Team Providers Care Transcription Typist Name Role Phone Alexander Adams MD Primary Care Provider [phone] Social History Tobacco Use Types Packs/Day Years Used Date Smoking Tobacco: Never Assessed Comments Unknown Sex and Gender Information Value Date Recorded Sex Assigned at Female 12/22/2020 11:08 EDT Legal Sex Female 18:47 EST Gender Identity Female 12/22/2020 11:08 EDT Sexual Orientation Not on file Plan of Treatment Not on file Insurance [facility] [place] [employer] [place] Care Teams Transcription Typist Relationship Specialty Start Date End Date Alexander Adams MD [address] [place], [place] [id number] PCP - General 10/23/12
--- OUTSIDE RECORDS SUMMARY | 2024-02-15 22:06 | XMS_ITS | Encounter Summary ---
Author Organization [facility] Address [address] [place] [address] Care Team Providers Care Channel Manager Name Role Phone Alexander Adams MD Primary Care Provider [phone] Encounter Details Date Type Department Care Team (Latest Contact Info) Description 11/22/2014 15:36 EDT - 11/22/2014 23:59 EDT Hospital Encounter [address] [address] Unknown, Provider, Discharge Disposition: Home or Self Care Social History Tobacco Use Types Packs/Day Years Used Date Smoking Tobacco: Never Assessed Comments Unknown Sex and Gender Information Value Date Recorded Sex Assigned at Female 12/22/2020 11:08 EDT Legal Sex Female 18:47 EST Gender Identity Female 12/22/2020 11:08 EDT Sexual Orientation Not on file documented as of this encounter Discharge Disposition Disposition Code Departure Means Destination Home or Self Longterm documented in this encounter Plan of Treatment Not on file documented as of this encounter Visit Diagnoses Not on filedocumented in this encounter Care Teams Channel Manager Relationship Specialty Start Date End Date Alexander Adams MD [address] [place] [address] PCP - General 10/23/12 documented as of this encounter
--- OUTSIDE RECORDS SUMMARY | 2024-02-15 22:06 | XMS_ITS | Encounter Summary ---
Author Organization [facility] Address [address] [place] [address] Care Team Providers Care Medicare Insurance Specialist Name Role Phone Alexander Adams MD Primary Care Provider [phone] Encounter Details Date Type Department Care Team (Latest Contact Info) Description 02/12/2015 11:29 EST - 02/12/2015 23:59 EST Hospital Encounter [address] [address] Unknown, Provider, Discharge Disposition: Home or Self [...] Code Departure Means Destination Home or Self Correction documented in this encounter Plan of Treatment Not on file documented as of this encounter Visit Diagnoses Not on filedocumented in this encounter Care Teams Medicare Insurance Specialist Relationship Specialty Start Date End Date Alexander Adams MD [address] [place] [address] PCP - General 10/23/12 documented as of this encounter
--- OUTSIDE RECORDS SUMMARY | 2024-02-15 22:06 | XMS_ITS | Encounter Summary ---
Author Organization [facility] Address [address] [place] [address] Care Team Providers Care Professional Bass Fisherman Name Role Phone Alexander Adams MD Primary Care Provider [phone] Encounter Details Date Type Department Care Team ([facility] st Contact Info) Description 02/12/2015 Results Only [facility] [phone] Kan King, DPNayeli [address] [place] [phone] Social History Tobacco Use Types Packs/Day [...] Date/Time Associated Diagnosis Comments SURGICAL PATHOLOGY Routine 02/12/2015 19 :51 EST documented in this encounter Results * SURGICAL PATHOLOGY (02/12/2015 19:51 EST) Pathology Report: SURGICAL PATHOLOGY REPORT Reports generated via electronic interface contain original data; however they are lacking the format of the original report. Caution should be taken when reading/interpret ing unformatted reports. Name: ? LIANE OMER ? Accession #: ? [id number] ? : ? 1945 (Age: 69) ??F ? Collect Date: ? 02/12/2015 ? Location: ? [facility] ? Receive Date: ? 02/12/2015 ? Provider: KAN KING DPM Copy to: ALEXANDER ADAMS MD ? Final Pathologic Diagnosis: A. ??TOE, RIGHT SECOND, WITH CUTANEOUS ULCER AND SCAB, AMPUTATION: ?? - Toe and separate piece of bone, grossly consistent with clinical history of amputation of second right toe. Gross only. B. ??TOE, RIGHT THIRD, WITH CUTANEOUS ULCER, AMPUTATION: - Toe and separate piece of bone, consistent with clinical history of amputation of third right toe, with gross features consistent with diabetic angiopathy. Gross only. Document reviewed and electronically signed by: Natalia Herrera MD Report ??Date: 02/15/2015 13:06 By the signature above, the attending physician certifies that he/she has personally conducted a gross and/or microscopic examination of the described specimens and rendered or confirmed the above diagnosis. Specimen(s) Received: A. ?Products of amputation 2nd toe right B. ? Products of amputation 3rd toe right Clinical History: Diabetic ulcer affecting 2nd & 3rd tip toes right; hammer toe deformities Gross Description: A. ?Received in formalin labelled with proper patient identification (initials M, S) and 1. products of amputation 2nd toe right is a distal portion of toe (2.5 cm in length x 1.7 cm plantar to dorsum x 1.6 cm medial to lateral) along with a separate piece of bone (0.7 cm in length x 1.1 cm in width x 0.7 cm plantar-dorsum). The dorsum surface of the toe has a cartwright-brown scab (0.5 x 0.4 cm), located 0.7 cm from the cutaneous proximal surgical margin. The medial and lateral aspect of the toe in close proximity to the toenail is mildly umbilicated and has pinpoint defects in the center of the umbilication and appear to be iatrogenic from the procedure (lateral umbilication measures 0.7 cm diameter and medial umbilication measures 0.3 cm in diameter). The cutaneous surface is otherwise generally smooth and white. The toenail is white and appears unremarkable and the skin at the proximal surgical margin appears viable. The cutaneous surface at the proximal resection margin has small focal intermittent black surgical pen markings. The bone resection margin is covered by smooth pale yellow-white periosteum. One end of the separately received piece of bone is convex and covered by smooth cartwright-yellow periosteum while the other end is yellow, slightly irregular, slightly umbilicated and appears not to be covered by periosteum. There is only a scant amount of soft tissue focally loosely attached to the 2nd piece of bone. Gross only. B. ?Received in formalin labelled with proper patient identification (initials M, S) and 2. products of amputation 3rd toe right is a distal portion of toe (2.5 cm in length x 2.1 cm medial to lateral x 2.2 cm plantar-dorsum) along with a separate piece of bone (0.5 cm in length x 1.2 cm in width x 0.8 cm from plantar-dorsum). The distal right aspect of the toe has a healing ulcer (0.9 x 0.7 cm) which is 0.5 cm distal from the irregular dark cartwright-brown toenail. The ulcer has a granular cartwright base. The medial and lateral aspect of the toe in close proximity to the toenail is mildly umbilicated and has pinpoint defects in the center of the umbilication and appear to be iatrogenic from the procedure (lateral umbilication measures 0.4 centers in diameter and the medial umbilication measures 0.3 cm in diameter). The cutaneous surface at the proximal resection margin appears viable and has small focal intermittent black pen markings. The bone resection margin is covered by smooth white and pale yellow periosteum. One end of the separately received pieces of bone is convex and covered by smooth cartwright-yellow periosteum while the other end is slightly irregular, yellow and appears not to be covered by periosteum. Gross only. Inocente Banerjee 02/13/2015 12:06 PM End of Report [facility] 02/12/2015 19:5 1 EST 02/12/2015 19:51 EST us Kan King DPM PATHOLOGY ORDERABLES Fin al Result [facility] [address] [place] [address] documented in this encounter Visit Diagnoses Not on filedocumented in this encounter Care Teams Professional Bass Fisherman Relationship Specialty Start Date End Date Alexander Adams MD [address] [place] [address] PCP - General 10/23/12 documented as of this encounter
--- OUTSIDE RECORDS SUMMARY | 2024-02-15 22:06 | XMS_ITS | Encounter Summary ---
[place] [address] Care Team Providers Care Quality Assurance Supervisor Chassis Name Role Phone Neva Pugh MD Primary Care Provider [phone] Encounter Details Date Type Department Care Team (Late st Contact Info) Description 03/24/2010 7:40 AM EST Follow-Up Cardiology at [address] [address] Milind Beasley MD [facility] [place] [address] Discharge Disposition: Home Social History Tobacco Use [...] AM EST Office Visit Cardiology at [address] [address] Ruben Hartman, PA [facility] [place] [address] 04/26/2024 10:00 AM EST Hospital Encounter Non-Invasive Cardiology Lab [facility] [place] [address] Arrived 09/24/2024 4:00 PM EDT Office Visit Cardiology at [address] [place] [address] Nathaniel Keita MD [facility] [place] [address] documented as of this encounter Visit Diagnoses Not on filedocumented in this encounter Care Teams Quality Assurance Supervisor Chassis Relationship Specialty Start Date End Date Neva Pugh MD [address] [place] [address] PCP - General 02/24/10 04/05/12 documented as of this encounter
--- OUTSIDE RECORDS SUMMARY | 2024-02-15 22:06 | XMS_ITS | Encounter Summary ---
Author Organization [facility] Address [address] [place] [address] Care Team Providers Care Circuit Breaker Mechanic Name Role Phone Neva Pugh MD Primary Care Provider [phone] Encounter Details Date Type Department Care Team (Late st Contact Info) Description 03/24/2012 Results Only [facility] Laboratory Services - [facility] ([facility] [address] [place] [address] Esvin Hackett, [address] [facility] ,[facility] [address] [place], [place] [id number] Social History Tobacco Use Types Packs/Day Years [...] Date/Time Associated Diagnosis Comments SURGICAL PATHOLOGY Routine 03/24/2012 9:09 EST documented in this encounter Results * SURGICAL PATHOLOGY (03/24/2012 9:09 EST) Pathology Report: SURGICAL PATHOLOGY REPORT Reports generated via electronic interface contain original data; however they are lacking the format of the original report. Caution should be taken when reading/interpreti ng unformatted reports. Name: ? LIANE OMER ? Accession #: ? [id number] ? : ? 1945 (Age: 66) ??F ? Collect Date: ? 03/24/2012 ? Location: ? [facility] ? Receive Date: ? 03/25/2012 ? Provider: ESVIN HACKETT DO Copy to: LO REY MD ? Final Pathologic Diagnosis: ? Skin of arm, left, wide excision: 1. ?Epidermal reparative change and dermal scar, consistent with biopsy site. 2. ? No residual squamous cell carcinoma in situ identified. Document reviewed and electronically signed by: MARIUM MAIER MD Report ??Date: 03/30/2012 14:52 By the signature above, the attending physician certifies that he/she has personally conducted a gross and/or microscopic examination of the described specimens and rendered or confirmed the above diagnosis. Specimen(s) Received: ? Wide exc arm Clinical History: ? Left arm squamous cell CA of skin Gross Description: ? Received in formalin labelled FelipeLiane and wide exc forearm is an unoriented ellipse of light cartwright skin and subcutis measuring 1.9 x 0.8 cm and excised to a depth of 0.6 cm. ??Centrally on the skin surface is a cartwright-white plaque measuring 0.7 x 0.5 cm in greatest dimensions. ??The margins of the specimen are inked black. ??The specimen is serially sectioned and submitted entirely as (A1) through (A3) central sections and (A4) tips, reverse en face. (SHIRLEY Banerjee)/ljn End of Report [facility] 03/24/2012 9:09 EST 03/25/2012 9:09 EST us Esvin Hackett DO PATHOLOGY ORDERABLES Fi nal Result [facility] [address] [place] [address] documented in this encounter Visit Diagnoses Not on filedocumented in this encounter Care Teams Circuit Breaker Mechanic Relationship Specialty Start Date End Date Neva Pugh MD [address] [place] [address] PCP - General 03/12/09 10/22/12 documented as of this encounter
--- OUTSIDE RECORDS SUMMARY | 2024-02-15 22:06 | XMS_ITS | Encounter Summary ---
Author Organization [facility] Address [address] [place] [address] Care Team Providers Care Square Cutter Name Role Phone Alexander Adams MD Primary Care Provider [phone] Encounter Details Date Type Department Care Team (Late st Contact Info) Description 11/13/2020 Lab Requisition [facility] Pathology & Laboratory Medicine - [facility] [address] [place] [address] Domenico Perez MD [address] [place] [address] Encounter for other general examination Social History Tobacco Use Types Packs/Day Years [...] Procedure Name Priority Date/Time Associated Diagnosis Comments NON ATTIC BLOWER/FNA CYTOLOGY Today 11/12/2020 8:30 EDT Encounter for other general examination documented in this encounter Results * NON ATTIC BLOWER/FNA CYTOLOGY (11/12/2020 8:30 EDT) Note to Patient The following pathology results have been interpreted by your pathologist and may be available to you before your health provider has had the opportunity to review them. Please allow time for your provider to receive these results and explore management options, if applicable. 11/13/2020 15:16 [facility] Final Diagnosis PAROTID, RIGHT MASS, FINE-NEEDLE ASPIRATION: - Nondiagnostic specimen. See comment. 11/13/2020 15:16 [facility] Diagnosis Comment The aspirate consists of blood and granular amorphous debris and extremely rare degenerated epithelioid cells that are difficult to further characterize. The scant cellularity precludes definitive diagnosis. 11/13/2020 15:16 [facility] Attestation By the signature below, the attending physician certifies that they have personally conducted a gross and/or microscopic examination of the described specimens and rendered or confirmed the above diagnosis. 11/13/2020 15:16 [facility] at 1516 Clinical History Right parotid mass. 11/13/2020 15:16 [facility] Gross Description A. One vial of CytoLyt was received and processed by selective cellular enhancement technique. 11/13/2020 15:16 [facility] Performing Lab [facility] 11/13/2020 15:16 [facility] Scanned Images 11/13/2020 15:16 [facility] Fine Needle Aspirate PAROTID GLAND STRUCTURE / Unknown 11/12/2020 8:30 EDT 11/13/2020 7:36 EDT us Domenico Perez MD PATHOLOGY ORDERABLES Final Resul t [facility] [address] [place] [address] documented in this encounter Visit Diagnoses Diagnosis Encounter for other general examination documented in this encounter Care Teams Square Cutter Relationship Specialty Start Date End Date Alexander Adams MD [address] [place] [address] PCP - General 10/23/12 documented as of this encounter
--- OUTSIDE RECORDS SUMMARY | 2024-02-15 22:06 | XMS_ITS | Clinical Summary ---
Author Organization [facility] Address [address] [place] [address] Care Team Providers Care Proposal Manager Writer Name Role Phone Alexander Adams MD Primary Care Provider [phone] Social History Tobacco Use Types Packs/Day Years Used Date Smoking Tobacco: Never Assessed Comments Unknown Sex and Gender Information Value Date Recorded Sex Assigned at Female 12/22/2020 11:08 EDT Legal Sex Female 18:47 EST Gender Identity Female 12/22/2020 11:08 EDT Sexual Orientation Not on file Plan of Treatment Health Maintenance Due Date Last Done Comments Hepatitis C Screen 1945 Fall Risk Screening 2009 RSV Immunization ( o r 60+ Years) (1 - 1-dose 75+ series) 10/31/2019 COVID-19 Vaccine ( season) 2023 Insurance [facility] [place] Care Teams Proposal Manager Writer Relationship Specialty Start Date End Date Alexander Adams MD [address] [place] [address] PCP - General 10/23/12
--- OUTSIDE RECORDS SUMMARY | 2024-02-15 22:06 | XMS_ITS | Encounter Summary ---
[place] [address] Care Team Providers Care Baseball Glove Stuffer Name Role Phone Neva Pugh MD Primary Care Provider [phone] Reason for Visit * Reason Onset Date Comments Labs Only 07/04/2010 Encounter Details Date Type Department Care Team (Late st Contact Info) Description 07/04/2010 [place] [address] Jaylin Salcido APRN [facility] [place] [address] Labs Only Social History Tobacco Use Types Packs/Day Years Used Date Smoking Tobacco: Never Assessed Sex and Gender Information Value Date Recorded Sex Assigned at Not on file Gender Identity Not on file Sexual Orientation Not on file documented as of this encounter Miscellaneous Notes * Telephone Encounter - Jaylin Salcido APRN - 07/17/2010 8:48 PM EDT labs documented in this encounter Plan of Treatment Upcoming Encounters Date Type Department Care Team (Late st Contact Info) Description 02/29/2024 10:00 AM EST Office Visit Cardiology at [address] [place] [address] Ruben Hartman PA [facility] [place] [address] 04/26/2024 10:00 AM EST Hospital Encounter Non-Invasive Cardiology Lab [facility] [place] [address] Arrived 09/24/2024 4:00 PM EDT Office Visit Cardiology at [address] [place] [phone] Nathaniel Keita MD [facility] [place] [address] documented as of this encounter Results * (ABNORMAL) LDL cholesterol, direct (07/20/2010 2:20 PM EDT) LDL Cholesterol, Direct 113(H) <=99 mg/dL [facility] Comment: The National Cholesterol Education Program (NCEP) has set the following guidelines for LDL Cholesterol: Reference range: ?? Optimal: ?<100 mg/dL ?? Near Optimal/Above Optimal: ?? 100-129 mg/dL ?? Borderline high: ?130-159 mg/dL ?? High: ? 160-189 mg/dL ?? Very high: ?>xg=856 mg/dL REJI 2001: 285(19):4544-9041 Blood specimen (specimen) 07/20/2010 2:20 PM EDT 07/20/2010 2:24 PM EDT Chris Chatman MD CHEMISTRY ORDERABLES [facility] * (ABNORMAL) Hemoglobin A1c (07/20/2010 2:20 PM EDT) Hemoglobin A1c 7.5(H) 4.3 - 6.1 % [facility] Estimated Average Glucose 169 mg/dL [facility] Comment: eAG equivalents for HbA1c percentages: [...] into estimated average glucose values. ??Diabetes Care 2008:31(8):0654-2445. Blood specimen (specimen) 07/20/2010 2:20 PM EDT 07/20/2010 2:24 PM EDT Chris Chatman MD CHEMISTRY ORDERABLES Performing Organization Address [facility] [place]/ZIP Co de Phone Number [facility] documented in this encounter Visit Diagnoses Diagnosis Diabetes- Primary Type II or unspecified type diabetes mellitus without mention of complication, not stated as uncontrolled documented in this encounter Care Teams Baseball Glove Stuffer Relationship Specialty Start Date End Date Neva Pugh MD [address] [place] [address] PCP - General 02/24/10 04/05/12 documented as of this encounter
--- OUTSIDE RECORDS SUMMARY | 2024-02-15 22:06 | XMS_ITS | Encounter Summary ---
Author Organization [facility] Address [address] [place] [address] Care Team Providers Care Pigment Making Supervisor Name Role Phone Alexander Adams MD Primary Care Provider [phone] Encounter Details Date Type Department Care Team (Latest Contact Info) Description 06/26/2014 11:20 EDT - 06/26/2014 23:59 EDT Hospital Encounter [address] [address] Unknown, Provider, Discharge Disposition: Home or Self [...] Code Departure Means Destination Home or Self Assisted documented in this encounter Plan of Treatment Not on file documented as of this encounter Visit Diagnoses Not on filedocumented in this encounter Care Teams Pigment Making Supervisor Relationship Specialty Start Date End Date Alexander Adams MD [address] [place] [address] PCP - General 10/23/12 documented as of this encounter
--- OUTSIDE RECORDS SUMMARY | 2024-02-15 22:06 | XMS_ITS | Encounter Summary ---
Author Organization [facility] Address [address] [place] [address] Care Team Providers Care Marine Insulator Name Role Phone Alexander Adams MD Primary Care Provider [phone] Encounter Details Date Type Department Care Team (Late st Contact Info) Description 05/20/2021 Lab Requisition [facility] Pathology & Laboratory Medicine - [facility] [address] [place] [address] Domenico Perez MD [address] [place] [address] Encounter for other general examination Social [...] Name Priority Date/Time Associated Diagnosis Comments NON CENTRIFUGAL SEPARATOR/FNA CYTOLOGY Today 05/19/2021 9:00 EST Encounter for other general examination documented in this encounter Results * NON CENTRIFUGAL SEPARATOR/FNA CYTOLOGY (05/19/2021 9:00 EST) Note to Patient The following pathology results have been interpreted by your pathologist and may be available to you before your health provider has had the opportunity to review them. Please allow time for your provider to receive these results and explore management options, if applicable. 05/21/2021 13:17 [facility] Final Diagnosis A. PAROTID GLAND, RIGHT, MASS, FINE NEEDLE ASPIRATION: - Rare atypical cells. See comment. 05/21/2021 13:17 [facility] Diagnosis Comment Cytologic evaluation demonstrates a paucicellular specimen composed mostly of granular amorphous debris with rare degenerated epithelioid cells, histiocytes, and mixed inflammatory cells. The scant nature of the specimen precludes further characterization. Oil Speculator slides of this case were reviewed at the intradepartmental consultation conference. 05/21/2021 13:17 [facility] Attestation There was significant resident/fellow involvement in the diagnostic evaluation of this case. By the signature below, the attending physician certifies that they have personally conducted a gross and/or microscopic examination of the described specimens and rendered or confirmed the above diagnosis. 05/21/2021 13:17 [facility] at 1317 Clinical History Right parotid mass 05/21/2021 13:17 [facility] Gross Description A. One vial of CytoLyt was received and processed by selective cellular enhancement technique. 05/21/2021 13:17 [facility] Resident/Fell ow: Gayatri Ramsay MD 05/21/2021 13:17 [facility] Performing Lab [facility] 05/21/2021 13:17 [facility] Scanned Images 05/21/2021 13:17 [facility] Fine Needle Aspirate PAROTID GLAND STRUCTURE / Unknown 05/19/2021 9:00 EST 05/20/2021 6:44 EST us Domenico Perez MD PATHOLOGY ORDERABLES Final Resul t [facility] [address] [place] [address] documented in this encounter Visit Diagnoses Diagnosis Encounter for other general examination documented in this encounter Care Teams Marine Insulator Relationship Specialty Start Date End Date Alexander Adams MD [address] [place] [address] PCP - General 10/23/12 documented as of this encounter
--- OUTSIDE RECORDS SUMMARY | 2024-02-15 22:06 | XMS_ITS | Encounter Summary ---
Author Organization [facility] Address [address] [place] [address] Care Team Providers Care Zinc Etcher Name Role Phone Neva Pugh MD Primary Care Provider [phone] Encounter Details Date Type Department Care Team (Late st Contact Info) Description 10/20/2012 Results Only [facility] Laboratory Services - [facility] ([facility]) [address] [place] [address] Kan King, [facility] [address] [place] [address] Social History Tobacco Use Types [...] Date/Time Associated Diagnosis Comments SURGICAL PATHOLOGY Routine 10/20/2012 7:58 EDT documented in this encounter Results * SURGICAL PATHOLOGY (10/20/2012 7:58 EDT) Pathology Report: SURGICAL PATHOLOGY REPORT Reports generated via electronic interface contain original data; however they are lacking the format of the original report. Caution should be taken when reading/interpreti ng unformatted reports. Name: ? LIANE OMER ? Accession #: ? [id number] ? : ? 1945 (Age: 66) ??F ? Collect Date: ? 10/20/2012 ? Location: ? [facility] ? Receive Date: ? 10/20/2012 ? Provider: KAN KING DPM Copy to: LO REY MD ? Final Pathologic Diagnosis: TOE, RIGHT FIREST (GREAT), AMPUTATION: - ??Nonhealing plantar skin ulcer. - ??Margins of resection appear viable. Document reviewed and electronically signed by: GABI VICENTE MD Report ??Date: 10/25/2012 18:37 By the signature above, the attending physician certifies that he/she has personally conducted a gross and/or microscopic examination of the described specimens and rendered or confirmed the above diagnosis. Specimen(s) Received: Ulcer right great toe Clinical History: Diabetic ulcer right great toe; diabetic/chronic ulcer Gross Description: ? Received in formalin labelled with proper patient identification (initials M, S) and right great toe is a toe amputation (3.5 cm from proximal to distal x 3.2 cm from medial to lateral x 2.0 cm from dorsal to plantar). ??The skin is fair in color. ??The skin is remarkable for an area of ulceration measuring 1.9 x 1.4 x 0.3 cm. ??It measures 0.9 cm from the soft tissue resection margin and 2.6 cm from the bony disarticulation ??The unguis is normal in gross appearance. ??The bone at the soft tissue margin is viable appearing and the bone and soft tissue at the margin appear viable. ??No sections are submitted. ??Gross only. Dr. Zelaya 10/23/2012 06:58 PM End of Report [facility] 10/20/2012 7:58 EDT 10/20/2012 7:58 EDT us Kan King DPM PATHOLOGY ORDERABLES Fin al Result Performing Organization Address City/State/[facility] Co de Phone Number [facility] [address] [place] [address] documented in this encounter Visit Diagnoses Not on filedocumented in this encounter Care Teams Zinc Etcher Relationship Specialty Start Date End Date Neva Pugh MD [address] [place] [address] PCP - General 03/12/09 10/22/12 documented as of this encounter
== END 2024-02-15 21:56 | disposition home or self-care (01) ==
LOC: NCHCN 21:55
PROVIDERS: PCP Family Medicine; Visit Provider Family Medicine
DX: E10.40 Type 1 diabetes mellitus with diabetic neuropathy, unspecified (principal)
CPT/HCPCS: 82043; 82570

== ENCOUNTER → 2024-02-23 09:34 | Outpatient (BNVA) | payer MEDICARE, BC, SELFPAY | PROVIDERS: PCP Family Medicine; Referring Provider Family Medicine; Visit Provider Podiatrist | DX: I70.203 Unspecified atherosclerosis of native arteries of extremities, bilateral legs (principal); E11.621 Type 2 diabetes mellitus with foot ulcer; E11.610 Type 2 diabetes mellitus with diabetic neuropathic arthropathy; L84 Corns and callosities; L60.0 Ingrowing nail; L97.329 Non-pressure chronic ulcer of left ankle with unspecified severity; R25.2 Cramp and spasm; R60.0 Localized edema | CPT/HCPCS: 11720 ==

== ENCOUNTER 2024-04-17 15:37 | Outpatient (CLI) | payer MEDICARE, BC, SELFPAY ==
--- NOTE | 2024-04-17 09:30 | DI.RAD_ITS ---
Exam(s) XR HIP LT AP LAT ONLY EXAM: XR HIP LT AP LAT ONLY INDICATION: LEFT HIP PAIN. COMPARISON: CR XR HIP LT AP LAT ONLY from 07/20/2023 TECHNIQUE: 2D digital imaging was performed. Two views. FINDINGS: Stable positioning of proximal femoral hardware. Fracture has healed minimal deformity. No new abno rmalities. DATA REPOSITORY: RADIATION DOSE DELIVERED:
== END 2024-04-17 15:38 | disposition home or self-care (01) ==
LOC: DIORS 15:37
PROVIDERS: PCP Family Medicine; Referring Provider Family Medicine; Visit Provider Student in an Organized Health Care Education/Training Program
DX: M48.061 Spinal stenosis, lumbar region without neurogenic claudication; S72.142D Displaced intertrochanteric fracture of left femur, subsequent encounter for closed fracture with routine healing; X58.XXXD Exposure to other specified factors, subsequent encounter
CPT/HCPCS: 99213; 73502

== ENCOUNTER 2024-04-24 21:24 | Outpatient (REF) | payer MEDICARE, BC, SELFPAY ==
--- OUTSIDE RECORDS SUMMARY | 2024-04-24 21:25 | XMS_ITS | Clinical Summary ---
[place] [address] Care Team Providers Care Market Master Name Role Phone Vinayak Downs MD Primary Care Provider [phone] Allergies Active Allergy Reactions Criticality Noted Date [...] - 07/02/2009 Medtronic John II VR Model# [id number], Serial# [id number] (pulse generator replaced 01/12/2019) (Old) Ventricular electrode: Medtronic Sprint Quattro MRI Model# 6947-58cm, Serial #[id number] Implanted 07/01/2009 (New)Pulse generator: Medtronic VISIA AF MRI Model# [id number], Serial# [id number] Implanted 01/12/2019 Assessment & Plan (09/21/2023 4:13 [...] Encounters Date Type Department Care Team Description 04/18/2024 Transcribe Orders eDH Incoming Referrals [phone] Vinayak Downs MD Spinal stenosis, lumbar region, without neurogenic claudication 04/17/2024 Ancillary Procedure Radiology Library at [facility] [place] [address] Vinayak Downs MD 01/27/2024 10:00 AM EDT - 01/27/2024 11:59 PM EDT Hospital Encounter Non-[place] [address] Discharge Disposition: Home from Last 3 Months Immunizations Name Administration Dates Next Due Influenza Trivalent, Preservative Free 5,01/11/2013 Influenza Vaccine, Whole 04/21/2009 Pneumococcal 23-Valent Polysaccharide [...] Care Team (Late st Contact Info) Description 04/25/2024 11:30 AM EST Office Visit Cardiology at [address] [place] [phone] Ruben Hartman PA [facility] [place] [address] 04/26/2024 10:00 AM EST Hospital Encounter Non-Invasive Cardiology Lab [place] [phone] Arrived 09/24/2024 4:00 PM EDT Office Visit Cardiology at [address] [place] [address] Nathaniel Keita MD [facility] [place] [address] Health Maintenance Due Date Last Done Comments Hepatitis C Screening 1963 Tetanus/Diphtheria/Pertussis Vaccines (1 - Tdap) 10/31/1963 Pneumoccocal Vaccine: 50+ (2 of 2 - PCV) 01/02/1986 01/02/1985 Zoster vaccine (1 of 2) 1994 Advance Directive 10/31/1999 Bone Density Scan 2009 DM Opthalmology Exam 08/14/2015 08/13/2014, 07/31/2014, 05/29/2014, Additional history exists DM Hemoglobin A1c 12/09/2015 09/08/2015, , 08/15/2014, Additional history exists DM Urine Microalbumin yearly 02/18/2016, 02/14/2014, 05/08/2013, Additional history exists RSV Vaccine (1 - 1-dose 75+ series) 10/31/2019 DM Creatinine yearly 01/13/2020 01/12/2019, 02/17/2015, 02/14/2014, Additional history exists Covid-19 Vaccine ( - 2023-2 5 season) 2023 Influenza (Flu) vaccine (1 o f 1 - Influenza standard series) 12/04/2023 02/17/2015, 01/11/2013, 04/21/2009 Medical Devices Implanted Type Area Drop Hammer Set Up Operator Device Identifier Shelf Expiration Date Model / Serial / Lot Mdt : [id number] John Ii Vr : [id number] Implanted: (Quantity not on file) Explanted:02/2019 by Vimal Meyers MD (Quantity not on file) Defibrillator Medtronic Inc. JOHN II VR [id number] / [id number] / Description:Medtronic : [id number] John II VR : [id number] Mdt : [id number] : [id number] Implanted:02/2019 by Vimal Meyers MD (Quantity not on file) Defibrillator Left: Chest Medtronic Inc. 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 Scanning Provider MEDIA MGR SCAN EXT O RDR/RSLT * Film Library- Storage Only DX Hip (04/17/2024 12:00 AM EST) Narrative DESTINY - 04/18/2024 1:40 PM EST This exam is auto-finalizing. It's purpose is for storage only. Vinayak Downs MD IMG FILM LIBRARY ORD ERABLES [place], [place] * Cardiac Device Check - Remote (03/01/2024 2:27 PM EST) Anatomical Region Laterality Modality Other 03/01/2024 2:27 PM EST Paolo Bailey MD IMPLANTABLE CARDIAC DEVICE * (ABNORMAL) BMP w/fasting Glucose (01/12/2019 7:18 AM EDT) [facility] Glucose Fasting 216(H) 65 - 99 mg/dL [facility] Comment: ?Fasting* Glucose Interpretive Criteria [...] of Diabetes Mellitus, Position Statement from the [place] Diabetes Association. ??Diabetes Care, Volume 33, Supplement 1, Apr 2009 Blood Urea Nitrogen 18 8 - 18 mg/dL [facility] Creatinine 0.89 0.70 - 1.20 mg/dL [facility] Sodium 141 135 - 145 mmol/L [facility] Potassium 4.4 3.5 - 5.0 mmol/L [facility] Comment: Please note: ??Patients with WBC >100,000 may have falsely elevated Potassium levels. ??For accurate Potassium quantification in these patients send serum separator tube (gold top) for subsequent determinations. ??Contact the Clinical Chemistry Laboratory if there are any questions. Chloride 101 98 - 107 mmol/L [facility] Carbon Dioxide 27 22 - 31 mmol/L [facility] Anion Gap 13 5 - 15 mmol/L [facility] Calcium 9.4 8.5 - 10.5 mg/dL [facility] Est Glomerular Filtration Rate 64 >=60 mL/min/1. 73 m?? [facility] Comment: The eGFR was calculated using the CKD-EPI equation. As with all creatinine based estimates of kidney function, eGFR values calculated with the CKD-EPI equation are not accurate in patients with acute kidney failure, extremes of body mass or the acutely ill. [email or web address]MAN[facility] eGFR 74 >=60 mL/min/1. 73 m?? [facility] Comment: The eGFR was calculated using the CKD-EPI equation. As with all creatinine based estimates of kidney function, eGFR values calculated with the CKD-EPI equation are not accurate in patients with acute kidney failure, extremes of body mass or the acutely ill. [email or web address] Blood specimen (specimen) 01/12/2019 7:18 AM EDT 01/12/2019 7:38 AM EDT Narrative Resulting Agency Comment Spec In Lab Vimal Meyers MD CHEMISTRY ORDERABLES [facility] [place] [address] * (ABNORMAL) Hemoglobin A1c (09/08/2015 3:01 PM EDT) Hemoglobin A1c 8.4(H) 4.3 - 5.6 % [facility] Comment: Reference Range: 4.3 - [...] Mellitus, Diabetes Care 2013; 36: Suppl. 1, S36-71 Estimated Average Glucose See note mg/dL [facility] Comment: Estimated Average Glucose not [...] resources are available on the ADA website: [email or web address]/[facility]MCadacalc Alfred JEFFRIES, Risa J, Sergio R, et al. ??Translating the A1C assay into estimated average glucose values. ??Diabetes Care 2008:31(8):9737-2657. Blood specimen (specimen) 09/08/2015 3:01 PM EDT 09/08/2015 3:13 PM EDT Narrative Resulting Agency Comment Spec In Lab Chris Chatman MD CHEMISTRY ORDERABLES Performing Organization Address [facility] Co de Phone Number [facility] [place] [phone] * Microalbumin, urine, random (02/17/2015 9:27 AM EST) Creatinine, Urine 102 mg/dL CE RNER MILLENNIUM Albumin, Urine <3.0 mg/L CERNE R MILLENNIUM Albumin / Creatinin Ratio, Urine <3 mcg/mg Cr [facility]ERN[facility] MILLENNI[facility] Comment: Reference Range* Random collection (mcg/mg creatinine) Normal ?<30 Microalbuminuria ?? 30 - 300 Clinical Albuminuria ?? >300 *[place] Diabetes Association. Diabetic Nephropathy. Diabetes Care 1997;(Suppl 1):S24-S27 Exercise within 24 hour, infection, fever, CHF, marked hyperglycemia, and marked hypertension may elevate urinary albumin excretion over baseline values. Urine specimen (specimen) 02/17/2015 9:27 AM EST 02/17/2015 9:34 AM EST Narrative Resulting Agency Comment Spec In Lab Elisha Nichols MD URINE ORDERABLES THOM[facility]ON ISLASENNIUM from Last 3 Months or Most Recently Relevant to Health Maintenance Advance Directives * Full Code (Latest Code Status on File) Date Activated Date Inactivated Comments 01/12/2019 8:08 AM 01/12/2019 2:17 PM Question Answer Comments Does patient have capacity to make decision: Yes Care Teams Market Master Relationship Specialty Start Date End Date Vinayak Downs MD [address] [place] [address] PCP - General Family Medicine 07/27/23
--- OUTSIDE RECORDS SUMMARY | 2024-04-24 21:25 | XMS_ITS | Encounter Summary ---
Author Organization [facility] [place] [address] Care Team Providers Care Forestry Patrolman Name Role Phone Vinayak Downs MD Primary Care Provider [phone] Encounter Details Date Type Department Care Team (Late st Contact Info) Description 04/17/2024 Ancillary Procedure Radiology Library [place] [facility] [place] [phone] Vinayak Downs MD [address] [place], [place] [id number] Social History Tobacco Use Types Packs/Day Years [...] 11:30 AM EST Office Visit Cardiology at [address] [address] Ruben Hartman, PA [facility] [place] [address] 04/26/2024 10:00 AM EST Hospital Encounter Non-Invasive Cardiology Lab [facility] [place] [address] Arrived 09/24/2024 4:00 PM EDT Office Visit Cardiology at [address] [place] [phone] Nathaniel Keita MD [facility] [place] [place] [address] documented as of this encounter Procedures Procedure Name Priority Date/Time Associated Diagnosis Comments FILM LIBRARY STORAGE ONLY DX HIP Routine 04/17/2024 12:00 AM EST documented in this encounter Results * Film Library- Storage Only DX Hip (04/17/2024 12:00 AM EST) Narrative [facility] - 04/18/2024 1:40 PM EST This exam is auto-finalizing. It's purpose is for storage only. Vinayak Downs MD IMG FILM LIBRARY ORD ERABLES [place] documented in this encounter Visit Diagnoses Not on filedocumented in this encounter Care Teams Forestry Patrolman Relationship Specialty Start Date End Date Vinayak Downs MD [address] [place] [address] PCP - General Family Medicine 07/27/23 documented as of this encounter
--- OUTSIDE RECORDS SUMMARY | 2024-04-24 21:25 | XMS_ITS | Encounter Summary ---
[place] [address] Care Team Providers Care Physician Non Invasive Cardiologist Name Role Phone Vinayak Downs MD Primary Care Provider Encounter Details Date Type Department Care Team (Latest Contact Info) Description 01/27/2024 10:00 AM EDT - 01/27/2024 11:59 PM EDT Hospital Encounter [place] [phone] Discharge Disposition: Home Social History Tobacco Use [...] 11:30 AM EST Office Visit Cardiology at [address] [address] Ruben Hartman, PA [facility] [place] [address] 04/26/2024 10:00 AM EST Hospital Encounter [place] [address] Arrived 09/24/2024 4:00 PM EDT Office Visit Cardiology at [address] [address] Nathaniel Keita MD [facility] [place] [address] documented as of this encounter Procedures Procedure Name Priority Date/Time Associated Diagnosis Comments PRO ICD INTERROGATION REMOTE UP TO 90 DAYS Routine 11/30/2023 9:33 PM EDT documented in this encounter Results * Cardiac Device Check - Remote (11/30/2023 9:33 PM EDT) Anatomical Region Laterality Modality Other 11/30/2023 9:33 PM EDT Joey Berman MD IMPLANTABLE CARDIAC DEVICE documented in this encounter Visit Diagnoses Not on filedocumented in this encounter Care Teams Physician Non Invasive Cardiologist Relationship Specialty Start Date End Date Vinayak Downs MD [address] [place] [address] PCP - General Family Medicine 07/27/23 documented as of this encounter
--- OUTSIDE RECORDS SUMMARY | 2024-04-24 21:25 | XMS_ITS | Encounter Summary ---
[place] [address] Care Team Providers Care Group Insurance Specialist Name Role Phone Vinayak Downs MD Primary Care Provider [phone] Reason for Referral * Consultation (Routine) - Authorized Specialty Diagnoses / Procedures Referred By Contac t Referred To Contact Neurosurgery Diagnoses Spinal stenosis, lumbar region, without neurogenic claudication Vinayak Downs MD [address] [place] [address] Bhavna Malin [place] [address] Referral ID Status Reason Start Date Expiration Date Visits Requested Visits Authorized [id number] Authorized Consult, Test & Treat 04/18/2024 04/18/2025 1 1 Encounter Details Date Type Department Care Team (Latest Contact Info) Description 04/18/2024 Transcribe Orders eDH Incoming Referrals [phone] Vinayak Downs MD [address] [place] [address] Spinal stenosis, lumbar region, without neurogenic claudication Social History Tobacco Use Types Packs/Day Years [...] 11:30 AM EST Office Visit Cardiology at [address] [phone] Ruben Hartman PA [facility] [place] [address] 04/26/2024 10:00 AM EST Hospital Encounter Non-[place] [address] Arrived 09/24/2024 4:00 PM EDT Office Visit Cardiology at [address] [address] Nathaniel Keita MD [facility] [place] [address] Scheduled Referrals Name Type Priority Associated Diagnoses Orde r Schedule Referral to Neurosurgery Outpatient Referral Routine Spinal stenosis, lumbar region, without neurogenic claudication Ordered: 04/18/2024 documented as of this encounter Visit Diagnoses Diagnosis Spinal stenosis, lumbar region, without neurogenic claudication documented in this encounter Care Teams Group Insurance Specialist Relationship Specialty Start Date End Date Vinayak Downs MD [address] [place] [address] PCP - General Family Medicine 07/27/23 documented as of this encounter
--- OUTSIDE RECORDS SUMMARY | 2024-04-24 21:25 | XMS_ITS | Encounter Summary ---
[place] [address] Care Team Providers Care Executive Officer Special Warfare Team Name Role Phone Vinayak Downs MD Primary Care Provider [phone] Encounter Details Date Type Department Care Team (Latest Contact Info) Description 10/29/2023 10:00 AM EDT - 10/29/2023 11:59 PM EDT Hospital Encounter [place] [phone] Discharge Disposition: Home Social History Tobacco Use [...] 11:30 AM EST Office Visit Cardiology at [address] [address] Ruben Hartman, PA [facility] [place] [address] 04/26/2024 10:00 AM EST Hospital Encounter Non-[place] [address] Arrived 09/24/2024 4:00 PM EDT Office Visit Cardiology at [address] [address] Nathaniel Keita MD [facility] [place] [address] documented as of this encounter Procedures Procedure [...] on filedocumented in this encounter Care Teams Executive Officer Special Warfare Team Relationship Specialty Start Date End Date Vinayak Downs MD [address] [place] [address] PCP - General Family Medicine 07/27/23 documented as of this encounter
--- OUTSIDE RECORDS SUMMARY | 2024-04-24 21:26 | XMS_ITS | Encounter Summary ---
[place] [address] Care Team Providers Care Chest Pain Coordinator Name Role Phone Alexander Adams MD Primary Care Provider [phone] Encounter Details Date Type Department Care Team (Late st Contact Info) Description 08/10/2019 Telephone Cardiology at [address] [phone] Vimal Meyers MD [facility] [place] [address] Social History Tobacco Use Types Packs/Day Years [...] 11:30 AM EST Office Visit Cardiology at [address] [address] Ruben Hartman PA [facility] [place] [address] 04/26/2024 10:00 AM EST Hospital Encounter Non-[place] [address] Arrived 09/24/2024 4:00 PM EDT Office Visit Cardiology at [address] [address] Nathaniel Keita MD [facility] [place] [address] documented as of this encounter Visit Diagnoses Not on filedocumented in this encounter Care Teams Chest Pain Coordinator Relationship Specialty Start Date End Date Alexander Adams MD [address] [place] [address] PCP - General 04/06/12 07/26/23 documented as of this encounter
--- OUTSIDE RECORDS SUMMARY | 2024-04-24 21:26 | XMS_ITS | Encounter Summary ---
Author Organization [facility] Address [facility] [place] [address] Care Team Providers Care Operator Weapon Locating Radar Name Role Phone Vinayak Downs MD Primary Care Provider [phone] Reason for Visit * Reason Comments Ventricular Arrhythmia Medtronic ICD for Ventricular fibrillation Coronary Artery Disease Hypertension Encounter Details Date Type Department Care Team (Late st Contact Info) Description 09/21/2023 3:40 PM EDT Office Visit Cardiology at [address] [address] Nathaniel Keita MD [facility] [place] [address] Coronary artery disease, unspecified vessel or lesion type, unspecified whether angina present, unspecified whether [place] or transplanted heart; Ventricular fibrillation- with Medtronic [...] Looking forward to going camping in the [facility] area. Bp well controlled Current Outpatient [...] - 07/02/2009 Medtronic John II VR Model# [id number], Serial# [id number] (pulse generator replaced 01/12/2019) (Old) Ventricular electrode: Medtronic Sprint Quattro MRI Model# 6947-58cm, Serial #[id number] Implanted 07/01/2009 (New)Pulse generator: Medtronic VISIA AF MRI Model# [id number], Serial# [id number] Implanted 01/12/2019 CAD, out of hosp arrest [...] 11:30 AM EST Office Visit Cardiology at [address] [phone] Ruben Hartman PA [facility] [place] [address] 04/26/2024 10:00 AM EST Hospital Encounter Non-Invasive [place] [address] Arrived 09/24/2024 4:00 PM EDT Office Visit Cardiology at [address] [phone] Nathaniel Keita MD [facility] [place] [address] documented as of this encounter Visit Diagnoses Diagnosis Coronary artery disease, unspecified vessel or lesion type, unspecified whether angina present, unspecified whether [place] or transplanted heart Ventricular fibrillation- with Medtronic ICD implanted 2009 Ventricular fibrillation documented in this encounter Care Teams Operator Weapon Locating Radar Relationship Specialty Start Date End Date Vinayak Downs MD [address] [place] [address] PCP - General Family Medicine 07/27/23 documented as of this encounter
--- OUTSIDE RECORDS SUMMARY | 2024-04-24 21:26 | XMS_ITS | Encounter Summary ---
[place] [address] Care Team Providers Care Manager Of Supply Chain Name Role Phone Alexander Adams MD Primary Care Provider [phone] Encounter Details Date Type Department Care Team (Latest Contact Info) Description 02/01/2023 10:00 AM EDT - 02/01/2023 11:59 PM EDT Hospital Encounter Non-[place] [phone] Discharge Disposition: Home Social History Tobacco Use [...] 11:30 AM EST Office Visit Cardiology at [address] [phone] Ruben Hartman PA [facility] [place] [address] 04/26/2024 10:00 AM EST Hospital Encounter Non-[place] [address] Arrived 09/24/2024 4:00 PM EDT Office Visit Cardiology at [address] [phone] Nathaniel Keita MD [facility] [place] [address] documented as of this encounter Procedures Procedure [...] in this encounter Care Teams Manager Of Supply Chain Relationship Specialty Start Date End Date Alexander Adams MD [address] [place] [address] PCP - General 04/06/12 07/26/23 documented as of this encounter
--- OUTSIDE RECORDS SUMMARY | 2024-04-24 21:26 | XMS_ITS | Encounter Summary ---
Author Organization [facility] [place] [address] Care Team Providers Care Paper Box Cutter Name Role Phone Alexander Adams MD Primary Care Provider [phone] Encounter Details Date Type Department Care Team (Late st Contact Info) Description 08/10/2019 Telephone Cardiology at [address] [place] [address] Nathaniel Keita MD [facility] [place] [address] Social History Tobacco Use Types Packs/Day Years [...] when she should seeyou again. No issues. #[phone] documented in this encounter Plan of Treatment Upcoming Encounters Date Type Department Care Team (Late st Contact Info) Description 04/25/2024 11:30 AM EST Office Visit Cardiology at [address] [address] Ruben Hartman PA [facility] [place] [address] 04/26/2024 10:00 AM EST Hospital Encounter Non-Invasive [place] [address] Arrived 09/24/2024 4:00 PM EDT Office Visit Cardiology at [address] [phone] Nathaniel Keita MD [facility] [place] [address] documented as of this encounter Visit Diagnoses Not on filedocumented in this encounter Care Teams Paper Box Cutter Relationship Specialty Start Date End Date Alexander Adams MD [address] [place] [address] PCP - General 04/06/12 07/26/23 documented as of this encounter
--- OUTSIDE RECORDS SUMMARY | 2024-04-24 21:26 | XMS_ITS | Encounter Summary ---
[place] [address] Care Team Providers Care Acute Care Physical Therapist Name Role Phone Alexander Adams MD Primary Care Provider [phone] Encounter Details Date Type Department Care Team (Latest Contact Info) Description 08/05/2022 10:00 AM EDT - 08/05/2022 11:59 PM EDT Hospital Encounter Non-Invasive [place] [phone] Discharge Disposition: Home Social History Tobacco Use [...] 11:30 AM EST Office Visit Cardiology at [address] [phone] Ruben Hartman PA [facility] [place] [address] 04/26/2024 10:00 AM EST Hospital Encounter Non-Invasive [place] [address] Arrived 09/24/2024 4:00 PM EDT Office Visit Cardiology at [address] [phone] Nathaniel Keita MD [facility] [place] [address] documented as of this encounter Procedures Procedure [...] on filedocumented in this encounter Care Teams Acute Care Physical Therapist Relationship Specialty Start Date End Date Alexander Adams MD [address] [place] [address] PCP - General 04/06/12 07/26/23 documented as of this encounter
--- OUTSIDE RECORDS SUMMARY | 2024-04-24 21:26 | XMS_ITS | Encounter Summary ---
[place] [address] Care Team Providers Care Campaign Director Name Role Phone Alexander Adams MD Primary Care Provider [phone] Encounter Details Date Type Department Care Team (Late st Contact Info) Description 06/13/2023 Telephone Cardiology at [address] [phone] Lorenza Velazquez Social History Tobacco Use Types [...] check. Ok to have it done in [place] with Ruben or Dr Meyers. In the comments, please put, B>AX Lorenza Velazquez EP Scheduling documented in this encounter Plan of Treatment Upcoming Encounters Date Type Department Care Team (Late st Contact Info) Description 04/25/2024 11:30 AM EST Office Visit Cardiology at [address] [phone] Ruben Hartman, [facility]A [facility] [place] [address] 04/26/2024 10:00 AM EST Hospital Encounter [place] [address] Arrived 09/24/2024 4:00 PM EDT Office Visit Cardiology at [address] [phone] Nathaniel Keita MD [facility] [place] [address] documented as of this encounter Visit Diagnoses Not on filedocumented in this encounter Care Teams Campaign Director Relationship Specialty Start Date End Date Alexander Adams MD [address] [place] [address] PCP - General 04/06/12 07/26/23 documented as of this encounter
--- OUTSIDE RECORDS SUMMARY | 2024-04-24 21:26 | XMS_ITS | Encounter Summary ---
Author Organization [facility] [place] [address] Care Team Providers Care Wheel Roller Name Role Phone Alexander Adams MD Primary Care Provider Encounter Details Date Type Department Care Team (Late st Contact Info) Description 06/01/2023 Ancillary Procedure Radiology Library at [facility] MAGGIE Kimball [phone] Vinayak Downs MD [address] [place], [place] [phone] Social History Tobacco Use Types Packs/Day Years [...] 11:30 AM EST Office Visit Cardiology at [address] [phone] Ruben Hartman, PA [facility] [place] [id number] 04/26/2024 10:00 AM EST Hospital Encounter Non-Invasive Cardiology Lab [facility] [address] Arrived 09/24/2024 4:00 PM EDT Office Visit Cardiology at [address] [place] [address] Nathaniel Keita MD [facility] [place] [address] documented as of this encounter Procedures Procedure Name Priority Date/Time Associated Diagnosis Comments FILM LIBRARY STORAGE ONLY DX HIP Routine 06/01/2023 12:00 AM EST documented in this encounter Results * Film Library- Storage Only DX Hip (06/01/2023 12:00 AM EST) Narrative [facility] - 04/18/2024 1:31 PM EST This exam is auto-finalizing. It's purpose is for storage only. Vinayak Downs MD IMG FILM LIBRARY ORD ERABLES [place], [place] documented in this encounter Visit Diagnoses Not on filedocumented in this encounter Care Teams Wheel Roller Relationship Specialty Start Date End Date Alexander Adams MD [address] [place] [address] PCP - General 04/06/12 07/26/23 documented as of this encounter
--- OUTSIDE RECORDS SUMMARY | 2024-04-24 21:26 | XMS_ITS | Encounter Summary ---
[place] [address] Care Team Providers Care Radiology Specialist Name Role Phone Alexander Adams MD Primary Care Provider [phone] Reason for Referral * Diagnostic Test (Routine) - Closed Specialty Diagnoses / Procedures Referred By Contac t Referred To Contact Radiology Diagnoses Mass of right parotid gland Procedures CT Neck Soft Tissue w Contrast (Generic) Otoniel Brown PA [facility] [place] [address] [facility] [place] [address] Referral ID Status Reason Start Date Expiration Date V isits Requested Visits Authorized [id number] Closed Specialty Service Requested 06/29/2021 08/27/2021 1 1 Reason for Visit * Diagnostic Test (Routine) - Closed Specialty Diagnoses / Procedures Referred By Contac t Referred To Contact Radiology Diagnoses Mass of right parotid gland Procedures CT Neck Soft Tissue w Contrast (Generic) Otoniel Brown PA [facility] [place] [address] [facility] [place] [address] Referral ID Status Reason Start Date Expiration Date V isits Requested Visits Authorized [id number] Closed Specialty Service Requested 06/29/2021 08/27/2021 1 1 Encounter Details Date Type Department Care Team (Latest Contact Info) Description 07/02/2021 8:28 AM EDT - 07/02/2021 11:59 PM EDT Hospital Encounter CT Scan at [facility] [place] [address] Inocente Phoenix MD [facility] [place] [address] Mass of right parotid gland [...] 11:30 AM EST Office Visit Cardiology at [address] [phone] Ruben Hartman PA [facility] [place] [address] 04/26/2024 10:00 AM EST Hospital Encounter Non-[place] [address] Arrived 09/24/2024 4:00 PM EDT Office Visit Cardiology at [address] [address] Nathaniel Keita MD [facility] [place] [address] documented as of this encounter Procedures Procedure [...] who have questions please contact the health critical care unit nurse that requested your imaging first. ? Narrative [...] patients who have questions please contactthe health critical care unit nurse that requested your imaging first. Inocente Phoenix MD IM CT ORDERABLES documented [...] mLs documented in this encounter Care Teams Radiology Specialist Relationship Specialty Start Date End Date Alexander Adams MD [address] [place] [address] PCP - General 04/06/12 07/26/23 documented as of this encounter
--- OUTSIDE RECORDS SUMMARY | 2024-04-24 21:26 | XMS_ITS | Encounter Summary ---
[place] [address] Care Team Providers Care Brick Maker Name Role Phone Alexander Adams MD Primary Care Provider [phone] Encounter Details Date Type Department Care Team (Late st Contact Info) Description 11/20/2020 Ancillary Procedure Radiology at [facility] [address] [place] [phone] Bhavna Malin MD [address] [place] [address] Social History Tobacco Use Types Packs/Day Years [...] 11:30 AM EST Office Visit Cardiology at [address] [phone] Ruben HartmanLAURA [facility] [place] [address] 04/26/2024 10:00 AM EST Hospital Encounter Non-Invasive Cardiology Lab [facility] [place] [address] Arrived 09/24/2024 4:00 PM EDT Office Visit Cardiology at [address] [place] [phone] Nathaniel Keita MD [facility] [place] [address] documented as of this encounter Procedures Procedure Name Priority Date/Time Associated Diagnosis Comments FILM LIBRARY STORAGE ONLY CT SPINE Routine 11/20/2020 12:00 AM EDT documented in this encounter Results * Film Library- Storage Only CT Spine (11/20/2020 12:00 AM EDT) Narrative [facility] - 11/24/2020 9:59 AM EDT This exam is auto-finalizing. It's purpose is for storage only. Bhavna Malin MD IMG FILM LIBRARY ORDERABLES Performing Organization Address City/State/[facility] Co de Phone Number [place], [place] documented in this encounter Visit Diagnoses Not on filedocumented in this encounter Care Teams Brick Maker Relationship Specialty Start Date End Date Alexander Adams MD [address] [place] [address] PCP - General 04/06/12 07/26/23 documented as of this encounter
--- OUTSIDE RECORDS SUMMARY | 2024-04-24 21:26 | XMS_ITS | Encounter Summary ---
Author Organization [facility] Address [facility] [place] [address] Care Team Providers Care Client Account Assistant Name Role Phone Alexander Adams MD Primary Care Provider [phone] Encounter Details Date Type Department Care Team (Late st Contact Info) Description 06/10/2021 External Results [place] [phone] Provider, Scanning Social History Tobacco Use Types [...] AM EST Office Visit Cardiology at [address] [address] Ruben Hartman PA [facility] [place] [address] 04/26/2024 10:00 AM EST Hospital Encounter Non-Invasive Cardiology Lab [facility] [place] [address] Arrived 09/24/2024 4:00 PM EDT Office Visit Cardiology at [address] [place] [address] Nathaniel Keita MD [facility] [place] [address] documented as of this encounter Procedures Procedure Name Priority Date/Time Associated Diagnosis Comments CYTOLOGY SCAN Routine 06/10/2021 documented in this encounter Results * Scan Doc: Cytology (06/10/2021) Historical Provider MD PEÑA MGR SCAN EX T ORDR/RSLT documented in this encounter Visit Diagnoses Not on filedocumented in this encounter Care Teams Client Account Assistant Relationship Specialty Start Date End Date Alexander Adams MD [address] [place] [address] PCP - General 04/06/12 07/26/23 documented as of this encounter
--- OUTSIDE RECORDS SUMMARY | 2024-04-24 21:26 | XMS_ITS | Encounter Summary ---
Author Organization [facility] [place] [address] Care Team Providers Care Manager Mission Name Role Phone Alexander Adams MD Primary Care Provider [phone] Encounter Details Date Type Department Care Team (Late st Contact Info) Description 05/22/2023 12:15 AM EST Ancillary Procedure Radiology Library at [facility] [place] [phone] Vinayak Downs MD [address] [place], [place] [phone] Social History Tobacco Use Types Packs/Day Years [...] AM EST Office Visit Cardiology at [address] [phone] Ruben Hartman, [facility] [place] [address] 04/26/2024 10:00 AM EST Hospital Encounter Non-Invasive Cardiology Lab [facility] [place] [address] Arrived 09/24/2024 4:00 PM EDT Office Visit Cardiology at [address] [place] [address] Nathaniel Keita MD [facility] [place] [address] documented as of this encounter Procedures Procedure Name Priority Date/Time Associated Diagnosis Comments FILM LIBRARY STORAGE ONLY DX HIP Routine 05/22/2023 12:15 AM EST documented in this encounter Results * Film Library- Storage Only DX Hip (05/22/2023 12:15 AM EST) Narrative [facility] - 04/18/2024 1:31 PM EST This exam is auto-finalizing. It's purpose is for storage only. Vinayak Downs MD IMG FILM LIBRARY ORD ERABLES [place], [place] documented in this encounter Visit Diagnoses Not on filedocumented in this encounter Care Teams Manager Mission Relationship Specialty Start Date End Date Alexander Adams MD [address] [place] [address] PCP - General 04/06/12 07/26/23 documented as of this encounter
--- OUTSIDE RECORDS SUMMARY | 2024-04-24 21:26 | XMS_ITS | Encounter Summary ---
Author Organization [facility] [place] [address] Care Team Providers Care Junior Manufacturing Engineer Name Role Phone Alexander Adams MD Primary Care Provider Encounter Details Date Type Department Care Team (Late st Contact Info) Description 05/22/2023 Ancillary Procedure Radiology Library at [facility] [place] [place] [phone] Vinayak Downs MD [address] [place], [place] [phone] Social History Tobacco Use Types Packs/Day Years [...] 11:30 AM EST Office Visit Cardiology at [address] [phone] Ruben Hartman, PA [facility] [place] [address] 04/26/2024 10:00 AM EST Hospital Encounter Non-Invasive Cardiology Lab [facility] [place] [address] Arrived 09/24/2024 4:00 PM EDT Office Visit Cardiology at [address] [place] [address] Nathaniel Keita MD [facility] [place] [address] documented as of this encounter Procedures Procedure Name Priority Date/Time Associated Diagnosis Comments FILM LIBRARY STORAGE ONLY DX HIP Routine 05/22/2023 12:00 AM EST documented in this encounter Results * Film Library- Storage Only DX Hip (05/22/2023 12:00 AM EST) Narrative [facility] - 04/18/2024 1:31 PM EST This exam is auto-finalizing. It's purpose is for storage only. Vinayak Downs MD IMG FILM LIBRARY ORD ERABLES [place], [place] documented in this encounter Visit Diagnoses Not on filedocumented in this encounter Care Teams Junior Manufacturing Engineer Relationship Specialty Start Date End Date Alexander Adams MD [address] [place] [address] PCP - General 04/06/12 07/26/23 documented as of this encounter
--- OUTSIDE RECORDS SUMMARY | 2024-04-24 21:26 | XMS_ITS | Encounter Summary ---
[place] [address] Care Team Providers Care Vessel Welder Name Role Phone Vinayak Downs MD Primary Care Provider [phone] Encounter Details Date Type Department Care Team (Latest Contact Info) Description 07/31/2023 10:00 AM EDT - 07/31/2023 11:59 PM EDT Hospital Encounter [place] [phone] Discharge Disposition: Home Social History Tobacco Use [...] 11:30 AM EST Office Visit Cardiology at [address] [address] Ruben Hartman, PA [facility] [place] [address] 04/26/2024 10:00 AM EST Hospital Encounter [place] [address] Arrived 09/24/2024 4:00 PM EDT Office Visit Cardiology at [address] [address] Nathaniel Keita MD [facility] [place] [address] documented as of this encounter Procedures Procedure [...] on filedocumented in this encounter Care Teams Vessel Welder Relationship Specialty Start Date End Date Vinayak Downs MD [address] [place] [address] PCP - General Family Medicine 07/27/23 documented as of this encounter
--- OUTSIDE RECORDS SUMMARY | 2024-04-24 21:26 | XMS_ITS | Encounter Summary ---
[place] [address] Care Team Providers Care Medical Assistant Name Role Phone Alexander Adams MD Primary Care Provider [phone] Encounter Details Date Type Department Care Team (Latest Contact Info) Description 03/25/2021 - 03/25/2021 11:59 PM EST Hospital Encounter Non-Invasive [place] [address] Alyson Oshea MD [facility] [place] [address] Ventricular fibrillation Discharge Disposition: Home Social History [...] AM EST Office Visit Cardiology at [address] [address] Ruben Hartman, LA[facility] [place] [address] 04/26/2024 10:00 AM EST Hospital Encounter Non-Invasive Cardiology Lab [facility] [place] [address] Arrived 09/24/2024 4:00 PM EDT Office Visit Cardiology at [address] [address] Nathaniel Keita MD [facility] [place] [address] documented as of this encounter Procedures Procedure [...] pdf document Date of transmission: 03/26/2021 Device item repair manager: SWATHI Device type: SC ICD Presenting rhythm: vs EL TEACHER <1% Battery: 3.01V, 10 years Episodes: Multiple brief tachy events; SVT vs NSVT Stable lead trends. Activity 1 hr/day Alyson Oshea MD 03/30/2021 1:17 PM Alyson Oshea MD IMPLANTABLE CARDIAC DEVICE documented in this encounter Visit Diagnoses Diagnosis Ventricular fibrillation documented in this encounter Care Teams Medical Assistant Relationship Specialty Start Date End Date Alexander Adams MD [address] [place] [address] PCP - General 04/06/12 07/26/23 documented as of this encounter
--- OUTSIDE RECORDS SUMMARY | 2024-04-24 21:26 | XMS_ITS | Encounter Summary ---
[place] [address] Care Team Providers Care Preparer Samples And Repairs Name Role Phone Alexander Adams MD Primary Care Provider [phone] Reason for Referral * Diagnostic Test (Routine) - Closed Specialty Diagnoses / Procedures Referred By Contbonifacio enriquez Referred To Contact Radiology Diagnoses Mass of right parotid gland Procedures CT Neck Soft Tissue w Contrast (Generic) Otoniel Brown PA [facility] DR [place] [address] [facility] [place] [address] Referral ID Status Reason Start Date Expiration Date V isits Requested Visits Authorized [id number] Closed Specialty Service Requested 06/29/2021 08/27/2021 1 1 Encounter Details Date Type Department Care Team (Late st Contact Info) Description 06/05/2021 Orders [place] [address] Otoniel Brown PA [facility] [place] [address] Mass of right parotid gland [...] 11:30 AM EST Office Visit Cardiology at [address] [phone] Ruben Hartman PA [facility] [place] [address] 04/26/2024 10:00 AM EST Hospital Encounter Non-[place] [address] Arrived 09/24/2024 4:00 PM EDT Office Visit Cardiology at [address] [phone] Nathaniel Keita MD [facility] [address] documented as of this encounter Procedures Procedure [...] who have questions please contact the health hospice home care coordinator that requested your imaging first. ? Electronically signed by: Giovanni Gonzalez MD, [facility] ([phone]), at 07/02/2021 10:11 AM Narrative 07/02/2021 10:11 [...] patients who have questions please contactthe health hospice home care coordinator that requested your imaging first. 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
--- OUTSIDE RECORDS SUMMARY | 2024-04-24 21:26 | XMS_ITS | Encounter Summary ---
[place] [address] Care Team Providers Care Drupal Web Developer Name Role Phone Alexander Adams MD Primary Care Provider [phone] Encounter Details Date Type Department Care Team (Latest Contact Info) Description 12/23/2020 - 12/23/2020 11:59 PM EDT Hospital Encounter [place] [address] [facility] [place] [address] Ventricular fibrillation Discharge Disposition: Home Social History [...] 11:30 AM EST Office Visit Cardiology at [address] [address] [facility] [place] [address] 04/26/2024 10:00 AM EST Hospital Encounter Non-[place] [address] Arrived 09/24/2024 4:00 PM EDT Office Visit Cardiology at [address] [phone] Nathaniel Keita MD [facility] [place] [address] documented as of this encounter Procedures Procedure Name Priority Date/Time Associated Diagnosis Comments ICD INTERROGATION 3 MONTH Routine 12/24/2020 7:31 AM EDT Ventricular fibrillation documented in this encounter Results * ICD INTERROGATION 3 MONTH (12/24/2020 7:31 AM EDT) Anatomical Region Laterality Modality Other Narrative 12/24/2020 8:31 AM EDT Cardiac Device Remote Monitoring Report Summary Scil Proteins Carelink Device: ICD Model: VISIA AF Battery: [...] fibrillation documented in this encounter Care Teams Drupal Web Developer Relationship Specialty Start Date End Date Alexander Adams MD [address] [place] [address] PCP - General 04/06/12 07/26/23 documented as of this encounter
--- OUTSIDE RECORDS SUMMARY | 2024-04-24 21:26 | XMS_ITS | Encounter Summary ---
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 Section of Cardiology/Cardiac Electrophysiology [facility] Clinical Cardiac Electrophysiology Follow Up Patient ID Liane Cole [id number] Liane Cole is following up in EP clinic Chief Complaint ICD s/p pulse generator replacement History This is a 73 y.o. female following up/being seen in clinic for follow up after her recent ICD pulsegenerator change for an ICD that was elective replacement indicator. The procedure was performed on12 January 2019, and was uncomplicated. She was seen in the [facility] on 26 January for routine postop [...] Ventricular fibrillation- with Medtronic ICD implanted 200906/21/2009 [facility]--- VF presenting, ROSC post shock by EMS, intubated; Dual chamber ICD - 07/02/2009 Medtronic John II VR Model# [id number], Serial# [id number] (pulse generator replaced 01/12/2019) (Old) Ventricular electrode: Medtronic Sprint Quattro MRI Model# 6947-58cm, Serial #[id number] Implanted 07/01/2009 (New)Pulse generator: Medtronic VISIA AF MRI Model# DEYI3O8, Serial# [id number] Implanted 01/12/2019 ??? CAD, out of hosp [...] Not on file Occupational History ??? 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 Social Needs [...] file Gets together: Not on file Attends scientologist service: Not on file Active member of [...] Routine follow-up in the ICD clinic at [place] in about 6 months time C) Continue [...] AM EST Office Visit Cardiology at [address] [place] [address] Ruben Hartman, [facility]A [facility] [address] [place] [address] 04/26/2024 10:00 AM EST Hospital Encounter Non-Invasive Cardiology Lab [facility] [place] [address] Arrived 09/24/2024 4:00 PM EDT Office Visit Cardiology at [address] [place] [address] Nathaniel Keita MD [facility] [place] [place] [address] documented as of this encounter Visit Diagnoses Diagnosis ICD (implantable cardioverter-defibrillator) in place documented in this encounter Care Teams Inspector Conveyor Line Relationship Specialty Start Date End Date Alexander Adams MD [address] [place] [address] PCP - General 04/06/12 07/26/23 documented as of this encounter
--- OUTSIDE RECORDS SUMMARY | 2024-04-24 21:26 | XMS_ITS | Encounter Summary ---
Author Organization Formerly [facility] [place] [address] Care Team Providers Care Scalloper Name Role Phone Alexander Adams MD Primary Care Provider Encounter Details Date Type Department Care Team (Late st Contact Info) Description 05/22/2023 12:10 AM EST Ancillary Procedure Radiology Library [place] [phone] Vinayak Downs MD [address] [place], [place] [phone] Social History Tobacco Use Types Packs/Day Years [...] AM EST Office Visit Cardiology at [address] [phone] Ruben Hartman, LA[facility] [place] [address] 04/26/2024 10:00 AM EST Hospital Encounter Non-Invasive Cardiology Lab [facility] [place] [address] Arrived 09/24/2024 4:00 PM EDT Office Visit Cardiology at [address] [place] [address] Nathaniel Keita MD [facility] [place] [address] documented as of this encounter Procedures Procedure Name Priority Date/Time Associated Diagnosis Comments FILM LIBRARY STORAGE ONLY DX HIP Routine 05/22/2023 12:10 AM EST documented in this encounter Results * Film Library- Storage Only DX Hip (05/22/2023 12:10 AM EST) Narrative [facility] - 04/18/2024 1:31 PM EST This exam is auto-finalizing. It's purpose is for storage only. Vinayak Downs MD IMG FILM LIBRARY ORD ERABLES [place], [place] documented in this encounter Visit Diagnoses Not on filedocumented in this encounter Care Teams Scalloper Relationship Specialty Start Date End Date Alexander Adams MD [address] [place] [address] PCP - General 04/06/12 07/26/23 documented as of this encounter
--- OUTSIDE RECORDS SUMMARY | 2024-04-24 21:26 | XMS_ITS | Encounter Summary ---
Author Organization [facility] Vanessa [place] [address] Care Team Providers Care Front Office Java Developer Name Role Phone Vinayak Downs MD Primary Care Provider [phone] Encounter Details Date Type Department Care Team [...] 11:30 AM EST Office Visit Cardiology at [address] [place] [phone] Ruben Hartman, PA [facility] [address] [place] [address] 04/26/2024 10:00 AM EST Hospital Encounter Non-Invasive [place] [phone] Arrived 09/24/2024 4:00 PM EDT Office Visit Cardiology at [address] [address] Nathaniel Keita MD [facility] [place] [address] documented as of this encounter Visit Diagnoses Not on filedocumented in this encounter Care Teams Front Office Java Developer Relationship Specialty Start Date End Date Vinayak Downs MD [address] [place] [address] PCP - General Family Medicine 07/27/23 documented as of this encounter
--- OUTSIDE RECORDS SUMMARY | 2024-04-24 21:26 | XMS_ITS | Encounter Summary ---
[place] [address] Care Team Providers Care Shipping Room Supervisor Name Role Phone Alexander Adams MD Primary Care Provider [phone] Encounter Details Date Type Department Care Team (Latest Contact Info) Description 09/24/2020 - 09/24/2020 11:59 PM EDT Hospital Encounter Non-[place] [address] Vimal Meyers MD [facility] [place] [address] Ventricular fibrillation Discharge Disposition: Home Social History [...] 11:30 AM EST Office Visit Cardiology at [address] [address] Ruben Hartman, PA [facility] [place] [address] 04/26/2024 10:00 AM EST Hospital Encounter Non-[place] [address] Arrived 09/24/2024 4:00 PM EDT Office Visit Cardiology at [address] [address] Nathaniel Keita MD [facility] [place] [address] documented as of this encounter Procedures Procedure [...] fibrillation documented in this encounter Care Teams Shipping Room Supervisor Relationship Specialty Start Date End Date Alexander Adams MD [address] [place] [address] PCP - General 04/06/12 07/26/23 documented as of this encounter
--- OUTSIDE RECORDS SUMMARY | 2024-04-24 21:26 | XMS_ITS | Encounter Summary ---
[place] [address] Care Team Providers Care Communications Station Manager Name Role Phone Alexander Adams MD Primary Care Provider [phone] Encounter Details Date Type Department Care Team (Latest Contact Info) Description 06/21/2020 - 06/21/2020 11:59 PM EDT Hospital Encounter Non-[place] [address] Norm Garcia MD [facility] [address] Ventricular fibrillation Discharge Disposition: Home Social History [...] 11:30 AM EST Office Visit Cardiology at [address] [address] Ruben Hartman, PA [facility] [place] [address] 04/26/2024 10:00 AM EST Hospital Encounter Non-[place]vasive [place] [address] Arrived 09/24/2024 4:00 PM EDT Office Visit Cardiology at [address] [address] Nathaniel Keita MD [facility] [address] documented as of this encounter Procedures Procedure [...] pdf document Date of transmission: 06/21/2020 Device washing machine operator: SWATHI Device type: SC ICD Presenting rhythm: vs ARCHIVAL RECORDS CLERK <1% Battery: 3.03V, 10.5 years Episodes: Frequent brief episodes of tachy; uncertain if these events represent ventricular or supraventricular events in this single chamber device. no AF Stable lead trends. Activity 1 hr/day Alyson Oshea MD 06/23/2020 4:15 PM Norm Garcia MD IMPLANTABLE CARDIAC DEVICE documented in this encounter Visit Diagnoses Diagnosis Ventricular fibrillation documented in this encounter Care Teams Communications Station Manager Relationship Specialty Start Date End Date Alexander Adams MD [address] [place] [address] PCP - General 04/06/12 07/26/23 documented as of this encounter
--- OUTSIDE RECORDS SUMMARY | 2024-04-24 21:26 | XMS_ITS | Encounter Summary ---
[place] [address] Care Team Providers Care Drafter Plumbing Name Role Phone Alexander Adams MD Primary Care Provider [phone] Encounter Details Date Type Department Care Team (Latest Contact Info) Description 11/03/2022 10:00 AM EDT - 11/03/2022 11:59 PM EDT Hospital Encounter Non[place] [address] Discharge Disposition: Home Social History Tobacco Use [...] 11:30 AM EST Office Visit Cardiology at [address] [phone] Ruben Hartman PA [facility] [place] [address] 04/26/2024 10:00 AM EST Hospital Encounter Non-[place] [address] Arrived 09/24/2024 4:00 PM EDT Office Visit Cardiology at [address] [phone] Nathaniel Keita MD [facility] [place] [address] documented as of this encounter Procedures Procedure [...] on filedocumented in this encounter Care Teams Drafter Plumbing Relationship Specialty Start Date End Date Alexander Adams MD [address] [place] [address] PCP - General 04/06/12 07/26/23 documented as of this encounter
--- OUTSIDE RECORDS SUMMARY | 2024-04-24 21:26 | XMS_ITS | Encounter Summary ---
[place] [address] Care Team Providers Care Bookmobile Clerk Name Role Phone Alexander Adams MD Primary Care Provider [phone] Encounter Details Date Type Department Care Team (Late st Contact Info) Description 05/23/2023 Telephone Cardiology at [address] [place] [address] Tammy Machado, RN Social History [...] Liane called from her patient bed at [facility]. She is recovering from a fractured hip and cannot keep the planned appointment with Carlos Hartman on 06/01/2023. documented in this encounter Plan of Treatment Upcoming Encounters Date Type Department Care Team (Late st Contact Info) Description 04/25/2024 11:30 AM EST Office Visit Cardiology at [address] [address] Ruben Hartman PA [facility] [place] [address] 04/26/2024 10:00 AM EST Hospital Encounter Non-[place] [address] Arrived 09/24/2024 4:00 PM EDT Office Visit Cardiology at [address] [address] Nathaniel Keita MD [facility] [place] [address] documented as of this encounter Visit Diagnoses Not on filedocumented in this encounter Care Teams Bookmobile Clerk Relationship Specialty Start Date End Date Alexander Adams MD [address] [place] [address] PCP - General 04/06/12 07/26/23 documented as of this encounter
--- OUTSIDE RECORDS SUMMARY | 2024-04-24 21:26 | XMS_ITS | Encounter Summary ---
[place] [address] Care Team Providers Care Multimedia Specialist Name Role Phone Alexander Adams MD Primary Care Provider [phone] Reason for Visit * Auth/Cert Specialty Diagnoses / Procedures Referred By Contac t Referred To Contact Diagnoses ICD (implantable cardioverter-defibrillator) in place [Z95.810] Procedures ELECTROPHYSIOLOGY PROCEDURE Referral ID Status Reason Start Date Expiration Date Visits Re quested Visits Authorized [id number] 1 1 Encounter Details Date Type Department Care Team (Late st Contact Info) Description 01/12/2019 8:30 AM EDT - 01/12/2019 10:30 AM EDT Surgery [place] [address] Parvez Meyers MD [facility] [place] [address] ELECTROPHYSIOLOGY PROCEDURE Social History Tobacco Use Types [...] encounter Discharge Instructions * Patient Instructions* Parvez Meyesr MD - 01/12/2019 9:48 AM EDT FINAL ICD/PACEMAKER RECOMMENDATIONS: 1. Standard post implant discharge instructions (see below): 2. Medications as listed above. ?? You may use ice packs over the incision. Make sure to use a wiping cloth cutter (such as a towel) in between the [...] F. The office scheduling phone number is [phone]. ARM MOVEMENT RESTRICTIONS POST-IMPLANT - Do not [...] this product, please call the office at [phone]. documented in this encounter Medications at Time [...] - 01/12/2019 7:55 AM EDT Liane Cole [id number] 01/12/2019 73 y.o. Cardiology EP History and [...] with a chief complaint of ICD at [facility]. When she was seen in the [...] 1. 73 y.o. woman with ICD at [facility] here for elective pulse generator replacement [...] 11:30 AM EST Office Visit Cardiology at [address] [place] [address] Ruben Hartman, PA [facility] [place] [address] 04/26/2024 10:00 AM EST Hospital Encounter Non-Invasive Cardiology Lab [facility] [address] Arrived 09/24/2024 4:00 PM EDT Office Visit Cardiology at [address] [address] Nathaniel Keita MD [facility] [place] [address] documented as of this encounter Procedures Procedure [...] Glucose, POC 351(H) 65 - 199 mg/dL [facility] Comment: Supplemental ranges: <140 mg/dL before meals <180 mg/dL all other times of the day Blood specimen (specimen) 01/12/2019 10:09 AM EDT 01/12/2019 10:09 AM EDT Parvez Meyers MD POINT OF CARE TEST O KAMARI Performing Organization Address [facility] Co de Phone Number [facility] [place] [address] * (ABNORMAL) POCT Glucose (01/12/2019 7:33 AM EDT) Glucose, POC 224(H) 65 - 199 mg/dL [facility] Comment: Supplemental ranges: <140 mg/dL before meals <180 mg/dL all other times of the day Blood specimen (specimen) 01/12/2019 7:33 AM EDT 01/12/2019 7:33 AM EDT Parvez Meyers MD POINT OF CARE TEST O KAMARI Performing Organization Address [facility] Co de Phone Number [facility] [place] [address] * Differential, Automated (01/12/2019 7:18 AM EDT) Neutrophil % 59.6 % [facility] Neutrophil Absolute 5.23 1.70 - 6.10 x10(3)/[facility] Lymph % 29.0 % [facility] Lymphocytes Abs 2.5 0.9 - 3.2 x10(3)/[facility] Monocyte % 6.6 % [facility] Monocyte Abs 0.6 0.3 - 0.9 x10(3)/[facility] Eos % 3.8 % [facility] Eosinophils Abs 0.3 0.0 - 0.4 x10(3)/[facility] Basophil % 0.5 % [facility] Baso Absolute 0.0 0.0 - 0.1 x10(3)/[facility] Immature Gran % 0.50 % [facility] Comment: Immature granulocytes(IG's)percentage and absolute count will include metamyelocytes, myelocytes, and promyelocytes. Blood smears from CBCs yielding IG's will be scanned manually for concordance. If this scan disagrees with the automated IG or if promyelocytes are noted, a manual differential will be performed. Immature Gran Absolute 0.04 0.00 - 0.04 x10(3)/[facility] Blood specimen (specimen) 01/12/2019 7:18 AM EDT 01/12/2019 7:38 AM EDT Narrative Resulting Agency Comment Spec In Lab Parvez Meyers MD HEMATOLOGY ORDERABLE S Performing Organization Address City/State/[facility] Co de Phone Number [facility] [place] [address] * Hemogram (01/12/2019 7:18 AM EDT) White Blood Cell 8.8 4.0 - 9.5 x10(3)/[facility] Red Blood Cell 4.03 4.00 - 5.21 x10(6)/[facility] Hemoglobin 11.7 11.7 - 15.5 gm/dL [facility] Hematocrit 36.2 35.7 - 45.8 % [facility] Mean Cell Volume 89.8 82.6 - 94.[address] [facility] Mean Cell Hemoglobin 29.0 27.1 - 32.[address] [facility] Mean Cell Hemoglobin Concentration 32.3 31.7 - 35.0 gm/dL [facility] Platelet 224 145 - 357 x10(3)/[facility] RDW Standard Deviation 44.5 37.0 - 46.[address] [facility] RDW coefficient of variation 13.5 11.5 - 14.1 % [facility] Mean Platelet Volume 10.6 7.6 - 12.9 [facility] NRBC% auto 0.0 % [facility] NRBC Absolute 0.000 0.000 - 0.000 x10(3)/mcL [facility] Blood specimen (specimen) 01/12/2019 7:18 AM EDT 01/12/2019 7:38 AM EDT Narrative Resulting Agency Comment Spec In Lab Parvez Meyers MD HEMATOLOGY ORDERABLE S Performing Organization Address City/State/[facility] Co de Phone Number [facility] [place] [address] * (ABNORMAL) BMP w/fasting Glucose (01/12/2019 7:18 AM EDT) Glucose Fasting 216(H) 65 - 99 mg/dL [facility] Comment: ?Fasting* Glucose Interpretive Criteria [...] of Diabetes Mellitus, Position Statement from the [place] [employer]. ??Diabetes Care, Volume 33, Supplement 1, Apr 2009 Blood Urea Nitrogen 18 8 - 18 mg/dL [facility] Creatinine 0.89 0.70 - 1.20 mg/dL [facility] Sodium 141 135 - 145 mmol/L [facility] Potassium 4.4 3.5 - 5.0 mmol/L [facility] Comment: Please note: ??Patients with WBC >100,000 may have falsely elevated Potassium levels. ??For accurate Potassium quantification in these patients send serum separator tube (gold top) for subsequent determinations. ??Contact the Clinical Chemistry Laboratory if there are any questions. Chloride 101 98 - 107 mmol/L [facility] Carbon Dioxide 27 22 - 31 mmol/L [facility] Anion Gap 13 5 - 15 mmol/L [facility] Calcium 9.4 8.5 - 10.5 mg/dL [facility] Est Glomerular Filtration Rate 64 >=60 mL/min/1. 73 m?? [facility] Comment: The eGFR was calculated using the CKD-EPI equation. As with all creatinine based estimates of kidney function, eGFR values calculated with the CKD-EPI equation are not accurate in patients with acute kidney failure, extremes of body mass or the acutely ill. [email or web address]/[facility] eGFR 74 >=60 mL/min/1. 73 m?? [facility] Comment: The eGFR was calculated using the CKD-EPI equation. As with all creatinine based estimates of kidney function, eGFR values calculated with the CKD-EPI equation are not accurate in patients with acute kidney failure, extremes of body mass or the acutely ill. [email or web address] Blood specimen (specimen) 01/12/2019 7:18 AM EDT 01/12/2019 7:38 AM EDT Narrative Resulting Agency Comment Spec In Lab Parvez Meyers MD CHEMISTRY ORDERABLES [facility] [place] [address] * SCAN DOC: IMPLANTABLE DEVICES (01/12/2019 12:00 [...] to induce or maintain moderate sedation per [facility] Moderate Sedation Policy for the duration of the EP procedure., As needed to induce or maintain moderate sedation per [facility] Moderate Sedation Policy for the duration of [...] to induce or maintain moderate sedation per [facility] Moderate Sedation Policy for the duration of the EP procedure., As needed to induce or maintain moderate sedation per [facility] Moderate Sedation Policy for the duration of [...] to induce or maintain moderate sedation per [facility] Moderate Sedation Policy for the duration of the EP procedure., As needed to induce or maintain moderate sedation per [facility] Moderate Sedation Policy for the duration of [...] to induce or maintain moderate sedation per [facility] Moderate Sedation Policy for the duration of the EP procedure., As needed to induce or maintain moderate sedation per [facility] Moderate Sedation Policy for the duration of [...] RN) documented in this encounter Care Teams Multimedia Specialist Relationship Specialty Start Date End Date Alexander Adams MD [address] [place] [address] PCP - General 04/06/12 07/26/23 documented as of this encounter
--- OUTSIDE RECORDS SUMMARY | 2024-04-24 21:26 | XMS_ITS | Encounter Summary ---
Author Organization Formerly [facility] [place] [address] Care Team Providers Care Belt Loop Machine Operator Name Role Phone Alexander Adams MD Primary Care Provider [phone] Encounter Details Date Type Department Care Team (Late st Contact Info) Description 07/20/2023 Ancillary Procedure Radiology Library at [facility] [place] [place] [phone] Vinayak Downs MD [address] [place], [place] [phone] Social History Tobacco Use Types Packs/Day Years [...] 11:30 AM EST Office Visit Cardiology at [address] [address] Ruben Hartman, PA [facility] [place] [address] 04/26/2024 10:00 AM EST Hospital Encounter Non-Invasive Cardiology Lab [facility] [place] [address] Arrived 09/24/2024 4:00 PM EDT Office Visit Cardiology at [address] [place] [place] [phone] Nathaniel Keita MD [facility] [place] [address] documented as of this encounter Procedures Procedure Name Priority Date/Time Associated Diagnosis Comments FILM LIBRARY STORAGE ONLY DX HIP Routine 07/20/2023 12:00 AM EDT documented in this encounter Results * Film Library- Storage Only DX Hip (07/20/2023 12:00 AM EDT) [facility]ative [facility] 1[facility]31 PM EST This exam is auto-finalizing. It's purpose is for storage only. Vinayak Downs MD IMG FILM LIBRARY ORD ERABLES [place], [place] documented in this encounter Visit Diagnoses Not on filedocumented in this encounter Care Teams Belt Loop Machine Operator Relationship Specialty Start Date End Date Alexander Adams MD [address] [place] [address] PCP - General 04/06/12 07/26/23 documented as of this encounter
--- OUTSIDE RECORDS SUMMARY | 2024-04-24 21:26 | XMS_ITS | Encounter Summary ---
Author Organization [facility] [place] [address] Care Team Providers Care Can Handler Name Role Phone Alexander Adams MD Primary Care Provider [phone] Reason for Referral * Consultation (Routine) - Duplicate Referral Specialty Diagnoses / Procedures Referred By Contac t Referred To Contact Otolaryngology Diagnoses Other diseases of salivary glands Domenico Perez MD [address] [place] [address] [place] [address] Inocente Phoenix MD [facility] [place] [address] Referral ID Status Reason Start Date Expiration Date Visits Requested Visits Authorized [id number] Duplicate Referral Consult, Test & Treat 06/19/2021 06/19/2022 1 1 Encounter Details Date Type Department Care Team (Late st Contact Info) Description 06/19/2021 Transcribe Orders eDH Incoming Referrals [phone] Domenico Perez MD [address] [place] [address] [address] [place], [place] [id number] Other diseases of salivary glands Social History [...] 11:30 AM EST Office Visit Cardiology at [address] [address] Ruben Hartman PA [facility] [place] [address] 04/26/2024 10:00 AM EST Hospital Encounter Non[place] [address] Arrived 09/24/2024 4:00 PM EDT Office Visit Cardiology at [address] [phone] Nathaniel Keita MD [facility] [place] [address] Scheduled Referrals Name Type Priority Associated Diagnoses Orde r Schedule Referral to ENT Outpatient Referral Routine Other diseases of salivary glands Ordered: 06/19/2021 documented as of this encounter Visit Diagnoses Diagnosis Other diseases of salivary glands documented in this encounter Care Teams Can Handler Relationship Specialty Start Date End Date Alexander Adams MD [address] [place] [address] PCP - General 04/06/12 07/26/23 documented as of this encounter
--- OUTSIDE RECORDS SUMMARY | 2024-04-24 21:26 | XMS_ITS | Encounter Summary ---
[place] [address] Care Team Providers Care Electric Relay Tester Name Role Phone Alexander Adams MD Primary Care Provider [phone] Encounter Details Date Type Department Care Team (Late st Contact Info) Description 03/31/2023 Telephone Cardiology at [address] [phone] Lorenza Velazquez Social History Tobacco Use Types [...] 11:30 AM EST Office Visit Cardiology at [address] [place] [address] Ruben Hartman PA [facility] [place] [address] 04/26/2024 10:00 AM EST Hospital Encounter Non[place] [address] Arrived 09/24/2024 4:00 PM EDT Office Visit Cardiology at [address] [place] [phone] Nathaniel Keita MD [facility] [place] [address] documented as of this encounter Visit Diagnoses Not on filedocumented in this encounter Care Teams Electric Relay Tester Relationship Specialty Start Date End Date Alexander Adams MD [address] [place] [address] PCP - General 04/06/12 07/26/23 documented as of this encounter
--- OUTSIDE RECORDS SUMMARY | 2024-04-24 21:26 | XMS_ITS | Encounter Summary ---
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 / 2nd opinion Domenico Perez MD [address] [place] [address] [place] [address] Inocente Phoenix MD [facility] [place] [address] Referral ID Status Reason Start Date Expiration Date V isits Requested Visits Authorized [id number] Closed Consult, Test & Treat 05/28/2021 05/28/2022 1 1 Encounter Details Date Type Department Care Team (Late st Contact Info) Description 07/02/2021 11:40 AM EDT Office [place] [address] Inocente Phoenix MD [facility] [place] [address] Mass of right parotid gland Social History [...] Phoenix MD - 07/02/2021 11:40 AM EDT [facility] OTOLARYNGOLOGY NEW PATIENT CONSULTATION I was asked [...] Had a CT in the past at [facility], we do not have this image in [...] in surgery ifabsolutely necessary. 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 [place] in [place] alone withher cat named Loree. PROBLEM LIST [...] reflux disease) ??? Hyperlipidemia ??? Hypertension ??? UT (myocardial infarction) 2009 ??? Neuropathy ??? Traumatic [...] in Ms. Cole's care. Yadira Mayo PA-C [place], [place] [address] Office 07/02/2021 [facility] Otolaryngology Attending Note Patient seen and examined [...] the left parotid. FNA was reviewed at [facility] and no neoplastic cells although low cellularity. [...] 11:30 AM EST Office Visit Cardiology at [address] [address] Ruben Hartman, LAURA [facility] [place] [address] 04/26/2024 10:00 AM EST Hospital Encounter Non[place] [address] Arrived 09/24/2024 4:00 PM EDT Office Visit Cardiology at [address] [address] Nathaniel Keita MD [facility] [place] [address] documented as of this encounter Visit Diagnoses Diagnosis Mass of right parotid gland documented in this encounter Care Teams Barge Pilot Relationship Specialty Start Date End Date Alexander Adams MD [address] [place] [address] PCP - General 04/06/12 07/26/23 documented as of this encounter
--- OUTSIDE RECORDS SUMMARY | 2024-04-24 21:26 | XMS_ITS | Encounter Summary ---
[place] [address] Care Team Providers Care Diving Instructor Name Role Phone Alexander Adams MD Primary Care Provider [phone] Encounter Details Date Type Department Care Team (Late st Contact Info) Description 08/28/2019 Notes Only Cardiology at [address] [phone] Vimal Meyers MD [facility] [place] [address] Social History Tobacco Use Types Packs/Day Years [...] 11:30 AM EST Office Visit Cardiology at [address] [address] Ruben Hartman PA [facility] [place] [address] 04/26/2024 10:00 AM EST Hospital Encounter Non-[place] [address] Arrived 09/24/2024 4:00 PM EDT Office Visit Cardiology at [address] [address] Nathaniel Keita MD [facility] [place] [address] documented as of this encounter Visit Diagnoses Not on filedocumented in this encounter Care Teams Diving Instructor Relationship Specialty Start Date End Date Alexander Adams MD [address] [place] [address] PCP - General 04/06/12 07/26/23 documented as of this encounter
--- OUTSIDE RECORDS SUMMARY | 2024-04-24 21:26 | XMS_ITS | Encounter Summary ---
Author Organization [facility] [place] [address] Care Team Providers Care Pavilion Cutter Name Role Phone Alexander Adams MD Primary Care Provider Encounter Details Date Type Department Care Team (Late st Contact Info) Description 05/22/2023 12:05 AM EST Ancillary Procedure Radiology Library at [facility] [place] [phone] Vinayak Downs MD [address] [place], [place] [id number] Social History Tobacco Use Types Packs/Day Years [...] 11:30 AM EST Office Visit Cardiology at [address] [phone] Ruben Hartman, LAURA [facility] [address] 04/26/2024 10:00 AM EST Hospital Encounter Non-Invasive Cardiology Lab [facility] [place] [address] Arrived 09/24/2024 4:00 PM EDT Office Visit Cardiology at [address] [place] [address] Nathaniel Keita MD [facility] [place] [address] documented as of this encounter Procedures Procedure Name Priority Date/Time Associated Diagnosis Comments FILM LIBRARY STORAGE ONLY CT PELVIS Routine 05/22/2023 12:05 AM EST documented in this encounter Results * Film Library- Storage Only CT Pelvis (05/22/2023 12:05 AM EST) Narrative [facility] - 04/18/2024 1:31 PM EST This exam is auto-finalizing. It's purpose is for storage only. Vinayak Downs MD IMG FILM LIBRARY ORD ERABLES [place], [place] documented in this encounter Visit Diagnoses Not on filedocumented in this encounter Care Teams Pavilion Cutter Relationship Specialty Start Date End Date Alexander Adams MD [address] [place] [address] PCP - General 04/06/12 07/26/23 documented as of this encounter
--- OUTSIDE RECORDS SUMMARY | 2024-04-24 21:26 | XMS_ITS | Encounter Summary ---
Author Organization [facility] [place] [address] Care Team Providers Care Perinatal Educator Name Role Phone Alexander Adams MD Primary Care Provider [phone] Encounter Details Date Type Department Care Team (Late st Contact Info) Description 03/10/2022 Orders Only Cardiology at [address] [address] Paolo Bailey MD [facility] [place] [address] Social History Tobacco Use Types Packs/Day Years [...] 11:30 AM EST Office Visit Cardiology at [address] [address] Ruben Hartman, PA [facility] [place] [address] 04/26/2024 10:00 AM EST Hospital Encounter Non-Invasive Cardiology Lab [facility] [place] [address] Arrived 09/24/2024 4:00 PM EDT Office Visit Cardiology at [address] [place] [phone] Nathaniel Keita MD [facility] [place] [address] documented as of this encounter Procedures Procedure [...] on filedocumented in this encounter Care Teams Perinatal Educator Relationship Specialty Start Date End Date Alexander Adams MD [address] [place] [address] PCP - General 04/06/12 07/26/23 documented as of this encounter
--- OUTSIDE RECORDS SUMMARY | 2024-04-24 21:26 | XMS_ITS | Encounter Summary ---
[place] [address] Care Team Providers Care Drain Tile Machine Operator Name Role Phone Alexander Adams MD Primary Care Provider [phone] Encounter Details Date Type Department Care Team (Latest Contact Info) Description 05/02/2023 10:00 AM EST - 05/02/2023 11:59 PM [facility] Hospital Encounter Non-[place] [phone] Discharge Disposition: Home Social History Tobacco Use [...] AM EST Office Visit Cardiology at [address] [phone] Ruben Hartman PA [facility] [place] [place] [address] 04/26/2024 10:00 AM EST Hospital Encounter Non-[place]vasive [place] [address] Arrived 09/24/2024 4:00 PM EDT Office Visit Cardiology at [address] [phone] Nathaniel Keita MD [facility] [place] [address] documented as of this encounter Procedures Procedure [...] on filedocumented in this encounter Care Teams Drain Tile Machine Operator Relationship Specialty Start Date End Date Alexander Adams MD [address] [place] [address] PCP - General 04/06/12 07/26/23 documented as of this encounter
--- OUTSIDE RECORDS SUMMARY | 2024-04-24 21:26 | XMS_ITS | Encounter Summary ---
Author Organization [facility] [place] [address] Care Team Providers Care Director Of Strategic Marketing Name Role Phone Vinayak Downs MD Primary Care Provider [phone] Reason for Referral * Diagnostic Test (Routine) - Closed Specialty Diagnoses / Procedures Referred By Contac t Referred To Contact Cardiology Diagnoses Ventricular fibrillation Coronary artery disease without angina pectoris, unspecified vessel or lesion type, unspecified whether clark's point or transplanted heart Hypertension, unspecified type Procedures Echocardiogram Transthoracic Ruben Hartman PA [facility] [place] [address] Referral ID Status Reason Start Date Expiration Date V isits Requested Visits Authorized [id number] Closed Specialty Service Requested 07/27/2023 01/23/2024 1 1 Reason for Visit * Reason Comments Ventricular Arrhythmia Ventricular Fibri llation Encounter Details Date Type Department Care Team (Late st Contact Info) Description 07/27/2023 9:00 AM EDT Office Visit Cardiology at [address] [place] [address] Ruben Hartman PA [facility] [place] [address] Ventricular fibrillation- with Medtronic ICD implanted 2009; Coronary artery disease without angina pectoris, unspecified vessel or lesion type, unspecified whether clark's point or transplanted heart; Hypertension, unspecified type Social [...] 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 Follow-up with la for device check in 6 months. documented in this encounter Plan of Treatment Upcoming Encounters Date Type Department Care Team (Late st Contact Info) Description 04/25/2024 11:30 AM EST Office Visit Cardiology at [address] [place] [address] Ruben Hartman PA [facility] [place] [address] 04/26/2024 10:00 AM EST Hospital Encounter Non-Invasive Cardiology Lab [facility] [place] [address] Arrived 09/24/2024 4:00 PM EDT Office Visit Cardiology at [address] [place] [address] Nathaniel Keita MD [facility] [place] [address] Scheduled Orders Name Type Priority Associated Diagnoses Orde r Schedule Echocardiogram Transthoracic Echocardiography Routine Ventricular fibrillation- with Medtronic ICD implanted 2009 Coronary artery disease without angina pectoris, unspecified vessel or lesion type, unspecified whether clark's point or transplanted heart Hypertension, unspecified type Expected: 10/26/2023, Expires: 04/26/2024 documented as of this encounter Visit Diagnoses Diagnosis Ventricular fibrillation- with Medtronic ICD implanted 2009 Ventricular fibrillation Coronary artery disease without angina pectoris, unspecified vessel or lesion type, unspecified whether clark's point or transplanted heart Hypertension, unspecified type documented in this encounter Care Teams Director Of Strategic Marketing Relationship Specialty Start Date End Date Vinayak Downs MD [address] [place] [address] PCP - General Family Medicine 07/27/23 documented as of this encounter
--- OUTSIDE RECORDS SUMMARY | 2024-04-24 21:26 | XMS_ITS | Encounter Summary ---
Author Organization [facility] [place] [address] Care Team Providers Care Circulation Manager Name Role Phone Vinayak Downs MD Primary Care Provider [phone] Encounter Details Date Type Department Care Team [...] 11:30 AM EST Office Visit Cardiology at [address] [place] [phone] Ruben Hartman, PA [facility] [place] [address] 04/26/2024 10:00 AM EST Hospital Encounter Non-[place] [phone] Arrived 09/24/2024 4:00 PM EDT Office Visit Cardiology at [address] [place] [address] Nathaniel Keita MD [facility] [place] [address] documented as of this encounter Visit Diagnoses Not on filedocumented in this encounter Care Teams Circulation Manager Relationship Specialty Start Date End Date Vinayak Downs MD [address] [place] [address] PCP - General Family Medicine 07/27/23 documented as of this encounter
--- OUTSIDE RECORDS SUMMARY | 2024-04-24 21:26 | XMS_ITS | Encounter Summary ---
[place] [address] Care Team Providers Care Couture Alterations Dressmaker Name Role Phone Alexander Adams MD Primary Care Provider [phone] Encounter Details Date Type Department Care Team (Latest Contact Info) Description 06/10/2021 9:08 AM EST - 06/10/2021 11:59 PM [facility] Hospital [place] [phone] Discharge Disposition: Home Social History Tobacco Use [...] 11:30 AM EST Office Visit Cardiology at [address] [phone] Ruben Hartman PA [facility] [place] [address] 04/26/2024 10:00 AM EST Hospital Encounter Non-Invasive [place] [address] Arrived 09/24/2024 4:00 PM EDT Office Visit Cardiology at [place] [address] [place] [address] Nathaniel Keita MD [facility] [place] [address] documented as of this encounter Procedures Procedure Name Priority Date/Time Associated Diagnosis Comments NON-CHIROPRACTOR ASSISTANT FINAL REPORT Routine 06/10/2021 9:09 AM EST documented in this encounter Results * Non-Carton Stenciler Final Report (06/10/2021 9:09 AM EST) Non-Carton Stenciler Final Report [id number] ? Location: [facility] The signing pathologist has (i) examined the relevant preparation(s) for the specimen(s) and (ii) rendered or confirmed the diagnosis(es). . ? Non-Carton Stenciler Final DIAGNOSIS Atypical Electronically signed by: ?Tracy GOMEZ, Brandyn Mendez Verified: ??06/13/2021 15:35 ??Pathologist Performed at: ??-[facility] Dept. of Pathology, [place], [place] DISCUSSION Parotid gland, right (FNA): Hypocellular aspirate; predominantly debris and white blood cells present. Rare atypical degenerated epithelioid cells noted. Scant cellularity precludes further characterization. CLINICAL INFORMATION CONSULTATION CASE Source: ? Parotid gland, right (FNA) Clinical History: ? Right parotid mass. Received 1 slide(s) labeled [id number] Received 0 block(s). Specimen collection date: ?05/19/2021. For the full text of the [facility] ([facility]) report(s), please refer to [facility] Tracking #: ? [id number] . Report to: [facility] Pathology & Laboratory Medicine Main [phone] [place] [address] LABORATORY 06/10/2021 9:09 AM EST Inocente Phoenix MD PATHOLOGY/CYTOLOGY ORDERABLES [facility] [place] [address] documented in this encounter Visit Diagnoses Not on filedocumented in this encounter Care Teams Couture Alterations Dressmaker Relationship Specialty Start Date End Date Alexander Adams MD [address] [place] [address] PCP - General 04/06/12 07/26/23 documented as of this encounter
--- OUTSIDE RECORDS SUMMARY | 2024-04-24 21:26 | XMS_ITS | Encounter Summary ---
[place] [address] Care Team Providers Care Clinical Trials Nurse Name Role Phone Alexander Adams MD Primary Care Provider [phone] Encounter Details Date Type Department Care Team (Latest Contact Info) Description 02/26/2020 - 02/26/2020 11:59 PM EST Hospital Encounter Non-[place]vasive [place] [address] Paolo Bailey MD [facility] [place] [place] [address] Ventricular fibrillation Discharge Disposition: Home Social History [...] 11:30 AM EST Office Visit Cardiology at [address] [address] Ruben Hartman PA [facility] [place] [address] 04/26/2024 10:00 AM EST Hospital Encounter Non-[place]vasive [place] [address] Arrived 09/24/2024 4:00 PM EDT Office Visit Cardiology at [address] [phone] Nathaniel Keita MD [facility] [place] [address] Pending Results Name Type Priority Associated Diagnoses [...] documented in this encounter Care Teams Clinical Trials Nurse Relationship Specialty Start Date End Date Alexander Adams MD [address] [place] [address] PCP - General 04/06/12 07/26/23 documented as of this encounter
--- OUTSIDE RECORDS SUMMARY | 2024-04-24 21:26 | XMS_ITS | Encounter Summary ---
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 Tumor / 2nd opinion Domenico Perez MD [address] [place] [address] [place] [address] Inocente Phoenix MD [facility] [place] [address] Referral ID Status Reason Start Date Expiration Date V isits Requested Visits Authorized [id number] Closed Consult, Test & Treat 05/28/2021 05/28/2022 1 1 Encounter Details Date Type Department Care Team (Late st Contact Info) Description 05/28/2021 Transcribe Orders [place] [phone] Domenico Perez MD [address] [place] [address] [place] [address] Mass of right parotid gland Social History [...] AM EST Office Visit Cardiology at [address] [address] Ruben Hartman, PA [facility] [place] [address] 04/26/2024 10:00 AM EST Hospital Encounter Non-[place] [address] Arrived 09/24/2024 4:00 PM EDT Office Visit Cardiology at [address] [address] Nathaniel Keita MD [facility] [place] [address] Scheduled Referrals Name Type Priority Associated Diagnoses Orde r Schedule Referral to ENT Outpatient Referral Routine Mass of right parotid gland Ordered: 05/28/2021 documented as of this encounter Visit Diagnoses Diagnosis Mass of right parotid gland documented in this encounter Care Teams Residential Installer Relationship Specialty Start Date End Date Alexander Adams MD [address] [place] [address] PCP - General 04/06/12 07/26/23 documented as of this encounter
--- OUTSIDE RECORDS SUMMARY | 2024-04-24 21:26 | XMS_ITS | Encounter Summary ---
[place] [address] Care Team Providers Care Billing Control Clerk Name Role Phone Alexander Adams MD Primary Care Provider [phone] Encounter Details Date Type Department Care Team (Late st Contact Info) Description 07/09/2019 External Results Cardiology at [address] [phone] Alexander Adams MD [address] [place], [place] [phone] Social History Tobacco Use Types Packs/Day Years [...] AM EST Office Visit Cardiology at [address] [place] [address] Ruben Hartman, PA [facility] DR [place] [address] 04/26/2024 10:00 AM EST Hospital Encounter Non-Invasive Cardiology Lab [facility] [place] [address] Arrived 09/24/2024 4:00 PM EDT Office Visit Cardiology at [address] [place] [phone] Nathaniel Keita MD [facility] [place] [place] [address] documented as of this encounter Procedures Procedure Name Priority Date/Time Associated Diagnosis Comments EP DEVICE SCAN Routine 05/16/2019 documented in this encounter Results * Scan Doc: EP Device (05/16/2019) Anatomical Region Laterality Modality Other Alexander Admas MD MEDIA MGR SCAN EXT O RDR/RSLT documented in this encounter Visit Diagnoses Not on filedocumented in this encounter Care Teams Billing Control Clerk Relationship Specialty Start Date End Date Alexander Adams MD [address] [place] [address] PCP - General 04/06/12 07/26/23 documented as of this encounter
--- OUTSIDE RECORDS SUMMARY | 2024-04-24 21:27 | XMS_ITS | Encounter Summary ---
[place] [address] Care Team Providers Care Entertainment Reporter Name Role Phone Alexander Adams MD Primary Care Provider [phone] Encounter Details Date Type Department Care Team (Late st Contact Info) Description 04/14/2015 Notes [place] [phone] Stella Hernandez LPN Social History Tobacco Use [...] AM EST Office Visit Cardiology at [address] [address] Ruben Hartman PA [facility] [place] [place] [address] 04/26/2024 10:00 AM EST Hospital Encounter Non-Invasive Cardiology Lab [facility] [place] [address] Arrived 09/24/2024 4:00 PM EDT Office Visit Cardiology at [address] [phone] Nathaniel Keita MD [facility] [place] [address] documented as of this encounter Visit Diagnoses Not on filedocumented in this encounter Care Teams Entertainment Reporter Relationship Specialty Start Date End Date Alexander Adams MD [address] [place] [address] PCP - General 04/06/12 07/26/23 documented as of this encounter
--- OUTSIDE RECORDS SUMMARY | 2024-04-24 21:27 | XMS_ITS | Encounter Summary ---
[place] [address] Care Team Providers Care Geothermal Plant Manager Name Role Phone Alexander Adams MD Primary Care Provider [phone] Reason for Visit * Reason Onset Date Comments Questions 09/16/2014 wants latest Rx, has notes we faxed earlier Encounter Details Date Type Department Care Team (Late st Contact Info) Description 09/16/2014 [place] [phone] Melissa Cleary MD Questions (wants latest Rx, [...] AM EST Office Visit Cardiology at [address] [phone] Ruben Hartman, [facility] [place] [address] 04/26/2024 10:00 AM EST Hospital Encounter Non-[place] [address] Arrived 09/24/2024 4:00 PM EDT Office Visit Cardiology at [address] [phone] Nathaniel Keita MD [facility] [place] [address] documented as of this encounter Visit Diagnoses Not on filedocumented in this encounter Care Teams Geothermal Plant Manager Relationship Specialty Start Date End Date Alexander Adams MD [address] [place] [address] PCP - General 04/06/12 07/26/23 documented as of this encounter
--- OUTSIDE RECORDS SUMMARY | 2024-04-24 21:27 | XMS_ITS | Encounter Summary ---
[place] [address] Care Team Providers Care Motion Picture Actor Name Role Phone Alexander Adams MD Primary Care Provider [phone] Encounter Details Date Type Department Care Team (Latest Contact Info) Description 09/23/2015 9:28 AM EDT - 09/23/2015 11:59 PM EDT Hospital Encounter Non-[place]vasive [place] [address] Norm Garcia MD [facility] [place] [address] Discharge Disposition: Home Social History Tobacco Use [...] 60 tablet 3 02/17/2015 09/29/2017 Diabetic Supplies, fitograman. [facility] Fax from to [facility] for pump supplies 100 each 12 08/27/2014 11/12/2015 Diabetic Supplies, [place] Productivitycellan. [facility] Fax form to [facility] for testing supplies 100 each 12 08/08/2014 03/31/2017 lansoprazole (PREVACID) 30 mg capsule Take 30 mg by mouth daily. 07/27/2023 Blood Sugar Diagnostic (ONE TOUCH ULTRA TEST) test strip Test BG 5-6 times daily. Diagnosis code 250.63 600 each 3 03/12/2013 03/31/2017 Blood-Glucose Meter (ONE TOUCH ULTRA 2) monitoring kit 1 each by [facility].(Non-Drug; Combo Route) route as needed for Other. Test BG 5-6 times daily. Diagnosis code 250.63 1 each 0 03/12/2013 03/31/2017 Lancets (ONE TOUCH ULTRASOFT LANCETS) Misc 1 each by [facility].(Non-Drug; Combo Route) route 6 times daily. Diag code 250.63 600 each 3 03/12/2013 03/31/2017 cholecalciferol, Vitamin D3, (CHOLECALCIFEROL, VITAMIN D3,) 2,000 unit Capsule Take 2,000 Units by mouth daily. 12/13/2018 Insulin [place], Disposable, (BD INSULIN PEN NEEDLE UF SHORT) 31 X 08/17 Ndle by [facility].(Non-Drug; Combo Route) route. 03/31/2017 SUBCUTANEOUS INSULIN PUMP (INSULIN PUMP [id number] [facility] [place] [place]) by [facility].(Non-Drug; Combo Route) route. 03/31/2017 acetaminophen (TYLENOL) 325 [...] 11:30 AM EST Office Visit Cardiology at [address] [address] Ruben Hartman, PA [facility] [place] [address] 04/26/2024 10:00 AM EST Hospital Encounter Non-Invasive [place] [address] Arrived 09/24/2024 4:00 PM EDT Office Visit Cardiology at [address] [phone] Nathaniel Keita MD [facility] [place] [address] documented as of this encounter Visit Diagnoses Not on filedocumented in this encounter Care Teams Motion Picture Actor Relationship Specialty Start Date End Date Alexander Adams MD [address] [place] [address] PCP - General 04/06/12 07/26/23 documented as of this encounter
--- OUTSIDE RECORDS SUMMARY | 2024-04-24 21:27 | XMS_ITS | Encounter Summary ---
[place] [address] Care Team Providers Care Coffee Blender Name Role Phone Alexander Adams MD Primary Care Provider [phone] Encounter Details Date Type Department Care Team (Latest Contact Info) Description 03/04/2015 5:57 AM EST - 03/04/2015 11:59 PM [facility] Hospital Encounter [place] [address] Edita Myers MD Discharge Disposition: Home Social History Tobacco Use [...] 40 mL 3 12/11/2014 04/30/2015 Diabetic Supplies, Sati[place]. [facility] Fax from to [facility] for pump supplies 100 each 12 08/27/2014 11/12/2015 Diabetic Supplies, Satiety. [facility] Fax form to [facility] for testing supplies 100 each [...] ULTRA 2) monitoring kit 1 each by [facility].(Non-Drug; Combo Route) route as needed for Other. Test BG 5-6 times daily. Diagnosis code 250.63 1 each 0 03/12/2013 03/31/2017 Lancets (ONE TOUCH ULTRASOFT LANCETS) Misc 1 each by [facility].(Non-Drug; Combo Route) route 6 times daily. Diag code 250.63 600 each 3 03/12/2013 03/31/2017 cholecalciferol, Vitamin D3, (CHOLECALCIFEROL, VITAMIN D3,) 2,000 unit Capsule Take 2,000 Units by mouth daily. 12/13/2018 Insulin [place], Disposable, (BD INSULIN PEN NEEDLE UF SHORT) 31 X 5/16 Ndle by [facility].(Non-Drug; Combo Route) route. 03/31/2017 SUBCUTANEOUS INSULIN PUMP (INSULIN PUMP [id number] [facility] by [facility].(Non-Drug; Combo Route) route. 03/31/2017 acetaminophen (TYLENOL) 325 [...] AM EST Office Visit Cardiology at [address] [phone] Ruben Hartman, PA [facility] [place] [address] 04/26/2024 10:00 AM EST Hospital Encounter Non[place] [address] Arrived 09/24/2024 4:00 PM EDT Office Visit Cardiology at [address] [address] Nathaniel Keita MD [facility] [place] [address] documented as of this encounter Visit Diagnoses Not on filedocumented in this encounter Care Teams Coffee Blender Relationship Specialty Start Date End Date Alexander Adams MD [address] [place] [address] PCP - General 04/06/12 07/26/23 documented as of this encounter
--- OUTSIDE RECORDS SUMMARY | 2024-04-24 21:27 | XMS_ITS | Encounter Summary ---
[place] [address] Care Team Providers Care Collection Administrator Name Role Phone Alexander Adams MD Primary Care Provider [phone] Reason for Visit * Reason Comments Follow-up CAD, Medtronic pacem layton battery check Encounter Details Date Type Department Care Team (Late st Contact Info) Description 08/29/2018 8:20 AM EDT Office Visit Cardiology at [address] [address] Rudy Moralez Jr., MD Coronary artery disease, angina presence unspecified, unspecified vessel or lesion type, unspecified whether tejon or transplanted heart; Ventricular fibrillation- with Medtronic [...] Ventricular fibrillation- with Medtronic ICD implanted 200906/21/2009 [facility]--- VF presenting, ROSC post shock by EMS, intubated; Dual chamber ICD - 07/02/2009 Medtronic John II VR Model# [id number], Serial# [id number] ??? CAD, out of hosp arrest and [...] AM EST Office Visit Cardiology at [address] [address] Ruben Hartman, LAURA [facility] [place] [address] 04/26/2024 10:00 AM EST Hospital Encounter Non[place] [address] Arrived 09/24/2024 4:00 PM EDT Office Visit Cardiology at [address] [address] Nathaniel Keita MD [facility] [place] [address] documented as of this encounter Visit Diagnoses Diagnosis Coronary artery disease, angina presence unspecified, unspecified vessel or lesion type, unspecified whether tejon or transplanted heart Ventricular fibrillation- with Medtronic ICD implanted 2009 Ventricular fibrillation Essential hypertension Unspecified essential hypertension documented in this encounter Care Teams Collection Administrator Relationship Specialty Start Date End Date Alexander Adams MD [address] [place] [address] PCP - General 04/06/12 07/26/23 documented as of this encounter
--- OUTSIDE RECORDS SUMMARY | 2024-04-24 21:27 | XMS_ITS | Encounter Summary ---
[place] [address] Care Team Providers Care Crop Or Livestock Tenant Farmer Name Role Phone Alexander Adams MD Primary Care Provider Encounter Details Date Type Department Care Team (Late st Contact Info) Description 08/15/2014 External Results Cardiology at [address] [phone] Alexander Adams MD [address] [place], [place] [id number] Social History Tobacco Use Types Packs/Day Years [...] AM EST Office Visit Cardiology at [address] [place] [address] Ruben Hartman, PA [facility] [place] [address] 04/26/2024 10:00 AM EST Hospital Encounter Non-Invasive Cardiology Lab [facility] [place] [address] Arrived 09/24/2024 4:00 PM EDT Office Visit Cardiology at [address] [place] [phone] Nathaniel Keita MD [facility] [place] [address] documented as of this encounter Procedures Procedure Name Priority Date/Time Associated Diagnosis Comments EP DEVICE SCAN Routine 08/13/2014 documented in this encounter Results * Scan Doc: EP Device (08/13/2014) Anatomical Region Laterality Modality Other Alexander Adams MD MEDIA MGR SCAN EXT O RDR/RSLT documented in this encounter Visit Diagnoses Not on filedocumented in this encounter Care Teams Crop Or Livestock Tenant Farmer Relationship Specialty Start Date End Date Alexander Adams MD [address] [place] [address] PCP - General 04/06/12 07/26/23 documented as of this encounter
--- OUTSIDE RECORDS SUMMARY | 2024-04-24 21:27 | XMS_ITS | Encounter Summary ---
[place] [address] Care Team Providers Care Supervisor Bindery Name Role Phone Alexander Adams MD Primary Care Provider [phone] Encounter Details Date Type Department Care Team (Late st Contact Info) Description 07/07/2015 Notes [place] [phone] Lu Robbins LD Social History Tobacco Use Types Packs/Day Years [...] Once signed paperwork will be faxed to [place]. documented in this encounter Plan of Treatment Upcoming Encounters Date Type Department Care Team (Late st Contact Info) Description 04/25/2024 11:30 AM EST Office Visit Cardiology at [address] [place] [phone] Ruben Hartman PA [facility] [place] [address] 04/26/2024 10:00 AM EST Hospital Encounter [place] [address] Arrived 09/24/2024 4:00 PM EDT Office Visit Cardiology at [address] [place] [address] Nathaniel Keita MD [facility] [place] [address] documented as of this encounter Visit Diagnoses Not on filedocumented in this encounter Care Teams Supervisor Bindery Relationship Specialty Start Date End Date Alexander Adams MD [address] [place] [address] PCP - General 04/06/12 07/26/23 documented as of this encounter
--- OUTSIDE RECORDS SUMMARY | 2024-04-24 21:27 | XMS_ITS | Encounter Summary ---
[place] [address] Care Team Providers Care Vice President Of Recruiting Name Role Phone Alexander Adams MD Primary Care Provider [phone] Encounter Details Date Type Department Care Team (Late st Contact Info) Description 08/13/2014 Orders Only Cardiology at [address] [address] Social History Tobacco Use Types Packs/Day Years [...] 11:30 AM EST Office Visit Cardiology at [address] [phone] Ruben Hartman, LAURA [facility] [address] 04/26/2024 10:00 AM EST Hospital Encounter Non-Invasive [place] [address] Arrived 09/24/2024 4:00 PM EDT Office Visit Cardiology at [address] [place] [address] Nathaniel Keita MD [facility] [place] [address] documented as of this encounter Procedures Procedure Name Priority Date/Time Associated Diagnosis Comments CARDIAC DEVICE CHECK - REMOTE Routine 08/13/2014 7:35 AM EDT documented in this encounter Results * (ABNORMAL) Cardiac device check - Remote (08/13/2014 7:35 AM EDT) Date Time Interrogation Session [id number] IDCO Implantable Pulse Generator Rewind Operator Medtronic IDCO Implantable Pulse Generator Model John II VR [id number] IDCO Implantable Pulse Generator Serial Number [id number] IDCO Type Interrogation Session Remote IDCO Implantable Pulse Generator Type Defibrillator IDCO Implantable Pulse Generator Implant Date [id number] IDCO Marcel Setting Mode (NBG Code) VVI [...] ms IDCO Battery Date Time of Measurements [id number] IDCO Battery Status OK IDCO Battery WEED SPRAYER Trigger 2.6251 IDCO Battery Voltage 3.06 V IDCO Capacitor Charge Type Reformation IDCO Capacitor Last Charge Date Time [id number] IDCO Capacitor Charge Time 8.908 s IDCO Capacitor Charge Energy 35 J IDCO Episode Identifier 104 IDCO Episode Date Time [id number] IDCO Episode Duration 6 s IDCO Episode Identifier 103 IDCO Episode Date Time [id number] IDCO Episode Duration 2 s IDCO Episode Identifier 102 IDCO Episode Date Time [id number] IDCO Episode Duration 1 s IDCO Episode Identifier 101 IDCO Episode Date Time [id number] IDCO Episode Duration 0 s IDCO Episode Identifier 100 IDCO Episode Date Time [id number] IDCO Episode Duration 1 s IDCO Episode Identifier 99 IDCO Episode Date Time [id number] IDCO Episode Duration 1 s IDCO Episode Identifier 98 IDCO Episode Date Time [id number] IDCO Episode Duration 2 s IDCO Episode Identifier 97 IDCO Episode Date Time [id number] IDCO Episode Duration 1 s IDCO Episode Identifier 96 IDCO Episode Date Time [id number] IDCO Episode Duration 3 s IDCO Episode Identifier 95 IDCO Episode Date Time [id number] IDCO Episode Duration 6 s IDCO Episode Identifier 94 IDCO Episode Date Time [id number] IDCO Episode Duration 3 s IDCO Episode Identifier 93 IDCO Episode Date Time [id number] IDCO Episode Duration 2 s IDCO Episode Identifier 92 IDCO Episode Date Time [id number] IDCO Episode Duration 3 s IDCO Episode Identifier 91 IDCO Episode Date Time [id number] IDCO Episode Duration 2 s IDCO Episode Identifier 90 IDCO Episode Date Time [id number] IDCO Episode Duration 1 s IDCO Marcel Statistic Date Time Start [id number] IDCO Marecl Statistic Date Time End [id number] IDCO Marcel Statistic RV Percent Paced 0.00 % IDCO Therapy Statistic Recent Shocks Delivered 0 IDCO Therapy Statistic Recent Shocks Aborted 0 IDCO Therapy Statistic Recent ATP Delivered 0 IDCO Therapy Statistic Recent Date Time Start [id number] IDCO Therapy Statistic Recent Date Time End [id number] IDCO Therapy Statistic Total Shocks Delivered 0 IDCO Therapy Statistic Total Shocks Aborted 0 IDCO Therapy Statistic Total ATP Delivered 0 IDCO Therapy Statistic Total Date Time Start 24325489336519 IDCO Therapy Statistic Total Date Time End 99220811391516 IDCO Episode Statistic Recent Count 0 IDCO Episode Statistic Type Category VF IDCO Episode Statistic Recent Count 0 IDCO Episode Statistic Type Category VT IDCO Episode Statistic Recent Count 0 IDCO Episode Statistic Recent Count 0 IDCO Episode Statistic Recent Count 13 IDCO Episode Statistic Recent Count 0 IDCO Episode Statistic Type Category SVT IDCO Episode Statistic Recent Date Time Start [id number] IDCO Episode Statistic Recent Date Time End 09659698023257 IDCO Episode Statistic Recent Date Time Start 01057531544556 IDCO Episode Statistic Recent Date Time End 63207979481047 IDCO Episode Statistic Recent Date Time Start 75077419412202 IDCO Episode Statistic Recent Date Time End 76114729240300 IDCO Episode Statistic Recent Date Time Start 04734633662296 IDCO Episode Statistic Recent Date Time End 23709091865052 IDCO Episode Statistic Recent Date Time Start 88854743714023 IDCO Episode Statistic Recent Date Time End 78174072718739 IDCO Episode Statistic Recent Date Time Start 32648669855521 IDCO Episode Statistic Recent Date Time End 80048298574981 IDCO Episode Statistic Total Count 0 IDCO Episode Statistic Type Category VF IDCO Episode Statistic Total Count 0 IDCO Episode Statistic Type Category VT IDCO Episode Statistic Total Count 0 IDCO Episode Statistic Total Count 0 IDCO Episode Statistic Total Count 104 IDCO Episode Statistic Total Count 0 IDCO Episode Statistic Type Category SVT IDCO Episode Statistic Total Date Time Start 04690339152307 IDCO Episode Statistic Total Date Time End 77128569178509 IDCO Episode Statistic Total Date Time Start 29598647124022 IDCO Episode Statistic Total Date Time End 06193887533442 IDCO Episode Statistic Total Date Time Start 99289008938909 IDCO Episode Statistic Total Date Time End 64619994212076 IDCO Episode Statistic Total Date Time Start 27973836743533 IDCO Episode Statistic Total Date Time End 12339419283588 IDCO Episode Statistic Total Date Time Start 39563041687505 IDCO Episode Statistic Total Date Time End 15719945824706 IDCO Episode Statistic Total Date Time Start 79756943459592 IDCO Episode Statistic Total Date Time End 04570115490976 IDCO Anatomical Region Laterality Modality Other 08/13/2014 7:35 AM EDT Physician Cardiology IMPLANTABLE CARD IAC DEVICE documented in this encounter Visit Diagnoses Not on filedocumented in this encounter Care Teams Vice President Of Recruiting Relationship Specialty Start Date End Date Alexander Adams MD [address] [place] [address] PCP - General 04/06/12 07/26/23 documented as of this encounter
--- OUTSIDE RECORDS SUMMARY | 2024-04-24 21:27 | XMS_ITS | Encounter Summary ---
[place] [address] Care Team Providers Care Contract Coordinator Name Role Phone Alexander Adams MD Primary Care Provider [phone] Encounter Details Date Type Department Care Team (Latest Contact Info) Description 09/08/2015 2:50 PM EDT Laboratory [place] [phone] Type 1 diabetes mellitus with diabetic retinopathy [...] 11:30 AM EST Office Visit Cardiology at [address] [address] Ruben Hartman, PA [facility] [place] [address] 04/26/2024 10:00 AM EST Hospital Encounter Non-[place] [address] Arrived 09/24/2024 4:00 PM EDT Office Visit Cardiology at [address] [place] [address] Nathaniel Keita MD [facility] [place] [address] documented as of this encounter Procedures Procedure [...] Stimulating Hormone 0.86 0.27 - 4.20 mcIU/mL [facility] Blood specimen (specimen) 09/08/2015 3:01 PM EDT 09/08/2015 3:13 PM EDT Narrative Resulting Agency Comment Spec In Lab Chris Chatman MD CHEMISTRY ORDERABLES [facility] [place] [address] * (ABNORMAL) Hemoglobin A1c (09/08/2015 3:01 PM [...] Mellitus, Diabetes Care 2013; 36: Suppl. 1, S67-09 Estimated Average Glucose See note mg/dL [facility] [...] resources are available on the ADA website: [email or web address] Alfred JEFFRIES, Risa J, Sergio R, et al. ??Translating the A1C assay into estimated average glucose values. ??Diabetes Care 2008:31(8):2992-4385. 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
--- OUTSIDE RECORDS SUMMARY | 2024-04-24 21:27 | XMS_ITS | Encounter Summary ---
[place] [address] Care Team Providers Care Tourist Information Officer Name Role Phone Alexander Adams MD Primary Care Provider [phone] Reason for Visit * Reason Comments Diabetes Encounter Details Date Type Department Care Team (Late st Contact Info) Description 09/08/2015 4:00 PM EDT Office [place] [phone] Jaylin Salcido APRN Type 1 diabetes mellitus with diabetic neuropathy [...] ICD. Plans to have Cardiology followup in [facility]. Prevention strategies are up to date. Has dilated eye exams in [place], [place]. REVIEW OF SYSTEMS: Depression in mood. Recently returned from [employer] in [place]. 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 Eyes: No recent vision changes. No recent headaches. No chest pain or shortness of breath. No recent GI symptoms. Sleep patterns: States she has never been a good sleeper. Extremities: Followed closely by Dr. King in [place]. PHYSICAL EXAM: APPEARANCE: She appears in very [...] likely related to traveling, she drove to [place]. Also, patient has had back surgery. Requested [...] AM EST Office Visit Cardiology at [address] [address] Ruben Hartman, LAURA [facility] [place] [address] 04/26/2024 10:00 AM EST Hospital Encounter Non-Invasive Cardiology Lab [facility] [address] Arrived 09/24/2024 4:00 PM EDT Office Visit Cardiology at [address] [address] Nathaniel Keita MD [facility] [place] [address] documented as of this encounter Visit Diagnoses Diagnosis Type 1 diabetes mellitus with diabetic neuropathy Type I (juvenile type) diabetes mellitus with neurological manifestations, not stated as uncontrolled documented in this encounter Care Teams Tourist Information Officer Relationship Specialty Start Date End Date Alexander Adams MD [address] [place] [address] PCP - General 04/06/12 07/26/23 documented as of this encounter
--- OUTSIDE RECORDS SUMMARY | 2024-04-24 21:27 | XMS_ITS | Encounter Summary ---
[place] [address] Care Team Providers Care Senior Engineering Associate Name Role Phone Alexander Adams MD Primary Care Provider [phone] Encounter Details Date Type Department Care Team (Late st Contact Info) Description 08/15/2014 1:00 PM EDT Office [place] [phone] Elisha Nichols MD Type 1 diabetes mellitus with diabetic neuropathy [...] 28.0. Total daily doses range from 29.25-44.2. [id number]-it-[id number] 1:7. Correction factor 25. Target 95 to [...] Sig Dispense Refill ??? Diabetic Supplies, Miscellan. Misc Fax form to [facility] Medical for testing supplies 100 each 12 ??? carvedilol (COREG) 3.125 mg Tablet Take 3.125 mg by mouth daily. ??? traMADol-acetaminophen (ULTRACET) 37.5-325 mg Tablet Take 1 tablet by mouth 2 times daily as needed for Pain. 60 tablet 5 ??? Diabetic Supplies, Miscellan. [facility] SUPPLIES (Patient taking differently: [...] ULTRA 2) monitoring kit 1 each by [facility].(Non- Drug; Combo Route) route as needed for Other. Test BG 5-6 times daily. Diagnosis code 250.63 1 each 0 ??? Cholecalciferol, Vitamin D3, (VITAMIN D-3) 2,000 unit Cap Take 2,000 Units by mouth daily. ??? atorvastatin (LIPITOR) 20 mg tablet Take 40 mg by mouth daily. ??? Insulin Scribner, Disposable, (BD INSULIN PEN NEEDLE UF SHORT) 31 X 516 Ndle by [facility].(Non-Drug; Combo Route) route. ??? SUBCUTANEOUS INSULIN PUMP (INSULIN PUMP [id number] [facility]) by [facility].(Non-Drug; Combo Route) route. ??? aspirin 81 mg [...] TOUCH ULTRASOFT LANCETS) Misc 1 each by Mis.(Non-Drug; Combo Route) route 6 timesdaily. Diag code [...] is going well. 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 documented in this encounter Plan of Treatment Upcoming Encounters Date Type Department Care Team (Late st Contact Info) Description 04/25/2024 11:30 AM EST Office Visit Cardiology at [address] [address] Ruben Hartman PA [facility] [place] [address] 04/26/2024 10:00 AM EST Hospital Encounter Non-Invasive [place] [address] Arrived 09/24/2024 4:00 PM EDT Office Visit Cardiology at [address] [address] Nathaniel Keita MD [facility] [place] [address] documented as of this encounter Results * Microalbumin, urine, random (02/17/2015 9:27 AM EST) Creatinine, Urine 102 mg/dL BECKY NORTON MILLENNIUM Albumin, Urine <3.0 mg/L JOSE Connor MILLENNIUM Albumin / Creatinin Ratio, Urine <3 mcg/mg Cr THOMPSON TENA Comment: Reference Range* Random collection (mcg/mg creatinine) Normal ?<30 Microalbuminuria ?? 30 - 300 Clinical Albuminuria ?? >300 *[place] Diabetes Association. Diabetic Nephropathy. Diabetes Care 1997;(Suppl 1):S24-S27 Exercise within 24 hour, infection, fever, CHF, marked hyperglycemia, and marked hypertension may elevate urinary albumin excretion over baseline values. Urine specimen (specimen) 02/17/2015 9:27 AM EST 02/17/2015 9:34 AM EST Narrative Resulting Agency Comment Spec In Lab Elisha Nichols MD URINE ORDERABLES [facility] * HDL/Cholesterol Profile (02/17/2015 9:21 AM EST) Cholesterol, Total 132 <=199 mg/dL [facility] Comment: Recommendations of the NCEP Adult Treatment Panel for the following risk cutoff thresholds for the [place] population: Desirable: <200 mg/dL Borderline High: 200-239 mg/dL High: > or = 240 mg/dL HDL Cholesterol 52 >=40 mg/dL [facility] Comment: Reference range: ??Low HDL: ?? < 40 mg/dL ??Normal: ?40-60 mg/dL ??Desirable: > 60 mg/dL REJI 2001; 285(19):9027-1431 Cholesterol/HDL Ratio 2.5 ratio [facility] Comment: A Cholesterol to HDL ratio below 4:1 is desirable. ??Studies suggest that increased CAD risk occurs at ratios above 5 for females and above 6 for men. ? [place] Heart Association ??(http://www.americanheart.org) ? Aurelia Int Med, 1994; 121:641 ? AM J Med, 1998; 105(1A):48S Blood specimen (specimen) 02/17/2015 9:21 AM EST 02/17/2015 9:28 AM EST Narrative Resulting Agency Comment Spec In Lab Elisha Nichols MD CHEMISTRY ORDERAB LES Performing Organization Address [facility] Co de Phone Number [facility] * (ABNORMAL) Creatinine (02/17/2015 9:21 AM EST) [facility] Creatinine 0.95 0.70 - 1.20 mg/dL [facility] Comment: Please note that the pediatric reference intervals supplied above were not validated at [facility]. Results from pediatric patients should be interpreted in conjunction to the patient's age, height and muscle mass. Est Glomerular Filtration Rate 58(L) >=60 [facility] Comment: This estimated GFR (eGFR) value [...] the following links into your internet browser. [email or web address] Blood specimen (specimen) 02/17/2015 9:21 AM EST 02/17/2015 9:28 AM EST Narrative Resulting Agency Comment Spec In Lab Elisha Nichols MD CHEMISTRY ORDERAB LES Performing Organization Address [facility] Co de Phone Number [facility] * (ABNORMAL) Hemoglobin A1c (02/17/2015 9:21 AM EST) Hemoglobin A1c 7.7(H) 4.3 - 5.6 % [facility] Comment: Reference Range: 4.3 - 5.6% [...] Mellitus, Diabetes Care 2013; 36: Suppl. 1, V04-46 Estimated Average Glucose See note mg/dL CERNER MILLENNIUM Comment: Estimated Average Glucose not appropriate for [...] resources are available on the [facility] website: http://[employer].com/DHMCadacalc Alfred JEFFRIES, Risa J, Sergio R, et al. ??Translating the A1C assay into estimated average glucose values. ??Diabetes Care 2008:31(8):2980-2413. Blood specimen (specimen) 02/17/2015 9:21 AM EST 02/17/2015 9:28 AM EST Narrative Resulting Agency Comment Spec In Lab Elisha Nichols MD CHEMISTRY ORDERAB LES [facility] documented in this encounter Visit Diagnoses Diagnosis Type 1 diabetes mellitus with diabetic neuropathy Type I (juvenile type) diabetes mellitus with neurological manifestations, not stated as uncontrolled documented in this encounter Care Teams Senior Engineering Associate Relationship Specialty Start Date End Date Alexander Adams MD [address] [place] [address] PCP - General 04/06/12 07/26/23 documented as of this encounter
--- OUTSIDE RECORDS SUMMARY | 2024-04-24 21:27 | XMS_ITS | Encounter Summary ---
Author Organization [facility] [place] [address] Care Team Providers Care Warehouse Inventory Clerk Name Role Phone Alexander Adams MD Primary Care Provider [phone] Reason for Visit * Reason Onset Date Comments Medication Refill 11/14/2015 Encounter Details Date Type Department Care Team (Late st Contact Info) Description 11/14/2015 Ref[place] [address] Donna Driscoll LNA Social History Tobacco Use [...] 11:30 AM EST Office Visit Cardiology at [address] [phone] Ruben Hartman, LAURA [facility] [place] [address] 04/26/2024 10:00 AM EST Hospital Encounter Non-Invasive Cardiology Lab [facility] [place] [address] Arrived 09/24/2024 4:00 PM EDT Office Visit Cardiology at [address] [place] [address] Nathaniel Keita MD [facility] [place] [address] documented as of this encounter Visit Diagnoses Not on filedocumented in this encounter Care Teams Warehouse Inventory Clerk Relationship Specialty Start Date End Date Alexander Adams MD [address] [place] [address] PCP - General 04/06/12 07/26/23 documented as of this encounter
--- OUTSIDE RECORDS SUMMARY | 2024-04-24 21:27 | XMS_ITS | Encounter Summary ---
[place] [address] Care Team Providers Care Promotions Manager Name Role Phone Alexander Adams MD Primary Care Provider [phone] Encounter Details Date Type Department Care Team (Late st Contact Info) Description 12/19/2014 Telephone [place] [phone] Stella Hernandez LPN Social History Tobacco Use [...] Medtronic as Rx in August went to [facility] diabetes. documented in this encounter Plan of Treatment Upcoming Encounters Date Type Department Care Team (Late st Contact Info) Description 04/25/2024 11:30 AM EST Office Visit Cardiology at [address] [address] Ruben Hartman PA [facility] [place] [address] 04/26/2024 10:00 AM EST Hospital Encounter Non-Invasive [place] [address] Arrived 09/24/2024 4:00 PM EDT Office Visit Cardiology at [address] [phone] Nathaniel Keita MD [facility] [place] [address] documented as of this encounter Visit Diagnoses Not on filedocumented in this encounter Care Teams Promotions Manager Relationship Specialty Start Date End Date Alexander Adams MD [address] [place] [address] PCP - General 04/06/12 07/26/23 documented as of this encounter
--- OUTSIDE RECORDS SUMMARY | 2024-04-24 21:27 | XMS_ITS | Encounter Summary ---
Author Organization [facility] [place] [address] Care Team Providers Care Armature Winder Helper Repair Name Role Phone Alexander Adams MD Primary Care Provider [phone] Reason for Visit * Reason Onset Date Comments Medication Refill 09/23/2016 Encounter Details Date Type Department Care Team (Late st Contact Info) Description 09/23/2016 Ref[place] [address] Donna Driscoll LNA Social History Tobacco Use [...] 11:30 AM EST Office Visit Cardiology at [address] [phone] Ruben Hartman, LAURA [facility] [place] [address] 04/26/2024 10:00 AM EST Hospital Encounter Non-Invasive Cardiology Lab [facility] [place] [address] Arrived 09/24/2024 4:00 PM EDT Office Visit Cardiology at [address] [place] [address] Nathaniel Keita MD [facility] [place] [address] documented as of this encounter Visit Diagnoses Not on filedocumented in this encounter Care Teams Armature Winder Helper Repair Relationship Specialty Start Date End Date Alexander Adams MD [address] [place] [address] PCP - General 04/06/12 07/26/23 documented as of this encounter
--- OUTSIDE RECORDS SUMMARY | 2024-04-24 21:27 | XMS_ITS | Encounter Summary ---
Author Organization [facility] [place] [address] Care Team Providers Care Marker Assembler Name Role Phone Alexander Adams MD Primary Care Provider [phone] Reason for Visit * Reason Onset Date Comments Medication Refill 12/06/2014 Encounter Details Date Type Department Care Team (Late st Contact Info) Description 12/06/2014 [place] [address] Jaylin Salcido APRN Social History Tobacco Use Types Packs/Day Years [...] 11:30 AM EST Office Visit Cardiology at [address] [phone] Ruben Hartman, PA [facility] [place] [address] 04/26/2024 10:00 AM EST Hospital Encounter Non-Invasive Cardiology Lab [facility] [place] [address] Arrived 09/24/2024 4:00 PM EDT Office Visit Cardiology at [address] [place] [address] Nathaniel Keita MD [facility] [place] [address] documented as of this encounter Visit Diagnoses Not on filedocumented in this encounter Care Teams Marker Assembler Relationship Specialty Start Date End Date Alexander Adams MD [address] [place] [address] PCP - General 04/06/12 07/26/23 documented as of this encounter
--- OUTSIDE RECORDS SUMMARY | 2024-04-24 21:27 | XMS_ITS | Encounter Summary ---
[place] [address] Care Team Providers Care Christian Science Reader Name Role Phone Alexander Adams MD Primary Care Provider [phone] Reason for Visit * Reason Onset Date Comments Medication Refill 08/15/2014 Encounter Details Date Type Department Care Team (Late st Contact Info) Description 08/15/2014 [place] [phone] Elisha Nichols MD Social History Tobacco Use Types Packs/Day [...] 3:05 PM EDT Rx request received from [facility]. Called patient. No answer message left on home v/m for patient to r/c to nurse to verify this is where she is not getting her pump supplies documented in this encounter Plan of Treatment Upcoming Encounters Date Type Department Care Team (Late st Contact Info) Description 04/25/2024 11:30 AM EST Office Visit Cardiology at [address] [address] Ruben Hartman PA [facility] [place] [address] 04/26/2024 10:00 AM EST Hospital Encounter [place] [address] Arrived 09/24/2024 4:00 PM EDT Office Visit Cardiology at [address] [phone] Nathaniel Keita MD [facility] [place] [address] documented as of this encounter Visit Diagnoses Not on filedocumented in this encounter Care Teams Christian Science Reader Relationship Specialty Start Date End Date Alexander Adams MD [address] [place] [address] PCP - General 04/06/12 07/26/23 documented as of this encounter
--- OUTSIDE RECORDS SUMMARY | 2024-04-24 21:27 | XMS_ITS | Encounter Summary ---
[place] [address] Care Team Providers Care U.S. Revenue Officer Name Role Phone Alexander Adams MD Primary Care Provider [phone] Reason for Visit * Reason Comments Blurred Vision 2 week F/U for Possi ble Vitrous Hemorrhage OS PDR 2.5 months since las t f/u for PDR OU post PRP OU Encounter Details Date Type Department Care Team (Late st Contact Info) Description 08/13/2014 8:00 AM EDT [place] [address] Melissa Cleary MD Vitreous hemorrhage of left [...] 11:30 AM EST Office Visit Cardiology at [address] [address] Ruben Hartman, LAURA [facility] [place] [address] 04/26/2024 10:00 AM EST Hospital Encounter Non-Invasive Cardiology Lab [facility] [address] Arrived 09/24/2024 4:00 PM EDT Office Visit Cardiology at [address] [address] Nathaniel Keita MD [facility] [place] [address] documented as of this encounter Visit Diagnoses Diagnosis Vitreous hemorrhage of left eye Vitreous hemorrhage documented in this encounter Care Teams U.S. Revenue Officer Relationship Specialty Start Date End Date Alexander Adams MD [address] [place] [address] PCP - General 04/06/12 07/26/23 documented as of this encounter
--- OUTSIDE RECORDS SUMMARY | 2024-04-24 21:27 | XMS_ITS | Encounter Summary ---
[place] [address] Care Team Providers Care Butt Trimmer Name Role Phone Alexander Adams MD Primary Care Provider [phone] Reason for Visit * Reason Comments Cardiomyopathy Encounter Details Date Type Department Care Team (Late st Contact Info) Description 11/28/2014 2:40 PM EDT Office Visit Cardiology at [address] [phone] Thaddeus Cespedes RN Ventricular fibrillation- with Medtronic [...] SLS study. PCP: ALEXANDER ADAMS MD (General) Filler Shredder Machine: Milind Beasley MD Device and lead information Final Parameters: Ventricular lead: Medtronic Sprint Quattro Model# 6947-58 cm Serial #[id number] ??? Bipolar, steroid-tipped, active-fixation IS-1, DF-1 lead ??? Access: Left axillary vein ??? Location: Right ventricular apex ??? R wave, ICD: 8.0 mV ??? Pacing threshold, ICD: 1.0 V at 0.5 ms ??? Impedance, ICD: 532 ohms ??? HVB Impedance 33 ohms ??? SVC Impedance 39 ohms ??? Pace the diaphragm at 10 V: No Pulse generator: Medtronic John II VR Model# [id number] Serial# [id number] ??? Single-chamber ICD ??? Location: Subcutaneous Parameters: VF detection rate: >200 bpm VF therapy: ATP during charging, 30J, 35J x 5 FVT detection rate: via VF 250 bpm FVT therapy: Burst(1), 30J, 35J x 4 VT detection rate:182 bpm VT therapy: Burst(3), 20J, 35J x 4 Enhancement: Wavelet, VT Monitor Bradycardia pacing: VVI 40 Follow-up Battery status: 3.05 V [employer]: 2.63 V Charge time: 8.9 sec 07/03/2014 [...] 11:30 AM EST Office Visit Cardiology at [address] [address] Ruben Hartman PA [facility] [address] 04/26/2024 10:00 AM EST Hospital Encounter Non-Invasive [place] [address] Arrived 09/24/2024 4:00 PM EDT Office Visit Cardiology at [address] [address] Nathaniel Keita MD [facility] [place] [address] documented as of this encounter Visit Diagnoses Diagnosis Ventricular fibrillation- with Medtronic ICD implanted 2009 Ventricular fibrillation documented in this encounter Care Teams Butt Trimmer Relationship Specialty Start Date End Date Alexander Adams MD [address] [place] [address] PCP - General 04/06/12 07/26/23 documented as of this encounter
--- OUTSIDE RECORDS SUMMARY | 2024-04-24 21:27 | XMS_ITS | Encounter Summary ---
[place] [address] Care Team Providers Care Pick Up And Delivery Driver Name Role Phone Alexander Adams MD Primary Care Provider [phone] Reason for Visit * Reason Comments Follow-up 6 month f/u Medtroni c Pacer. No complaints Encounter Details Date Type Department Care Team (Late st Contact Info) Description 05/25/2018 8:20 AM EST Office Visit Cardiology at [address] [address] Rudy Moralez Jr., MD Coronary artery disease, angina presence unspecified, unspecified vessel or lesion type, unspecified whether [place]ip or transplanted heart; Ventricular fibrillation- with Medtronic [...] presents with ??? Follow-up 6 month f/u Medtronic Pacer. No complaints HPI She has been [...] Ventricular fibrillation- with Medtronic ICD implanted 200906/21/2009 [facility]--- VF presenting, ROSC post shock by EMS, intubated; Dual chamber ICD - 07/02/2009 Medtronic John II VR Model# [id number], Serial# [id number] ??? CAD, out of hosp arrest and [...] % paced <0.1 Battery Voltage: 2.64 V (SENIOR CREDIT OFFICER 2.63) charge time 11.3 Rate Responsiveness adequate [...] AM EST Office Visit Cardiology at [address] [address] Ruben Hartman, LAURA [facility] [place] [address] 04/26/2024 10:00 AM EST Hospital Encounter [place] [address] Arrived 09/24/2024 4:00 PM EDT Office Visit Cardiology at [address] [phone] Nathaniel Keita MD [facility] [place] [address] documented as of this encounter Visit Diagnoses Diagnosis Coronary artery disease, angina presence unspecified, unspecified vessel or lesion type, unspecified whether tul[place] or transplanted heart Ventricular fibrillation- with Medtronic ICD implanted 2009 Ventricular fibrillation Essential hypertension Unspecified essential hypertension ICD (implantable cardioverter-defibrillator) battery depletion documented in this encounter Care Teams Pick Up And Delivery Driver Relationship Specialty Start Date End Date Alexander Adams MD [address] [place] [address] PCP - General 04/06/12 07/26/23 documented as of this encounter
--- OUTSIDE RECORDS SUMMARY | 2024-04-24 21:27 | XMS_ITS | Encounter Summary ---
[place] [address] Care Team Providers Care Casting Machine Operator Helper Name Role Phone Alexander Adams MD Primary Care Provider [phone] Reason for Visit * Reason Onset Date Comments Medication Refill 04/30/2015 Encounter Details Date Type Department Care Team (Late st Contact Info) Description 04/30/2015 Refill [place] [phone] Jaylin Salcido APRN Social History Tobacco Use [...] like to get a prescription sent to [facility] in [place] so she make check on the damian of this. documented in this encounter Plan of Treatment Upcoming Encounters Date Type Department Care Team (Late st Contact Info) Description 04/25/2024 11:30 AM EST Office Visit Cardiology at [address] [address] Ruben Hartman PA [facility] [place] [address] 04/26/2024 10:00 AM EST Hospital Encounter Non-[place] [address] Arrived 09/24/2024 4:00 PM EDT Office Visit Cardiology at [address] [phone] Nathaniel Keita MD [facility] [place] [address] documented as of this encounter Visit Diagnoses Not on filedocumented in this encounter Care Teams Casting Machine Operator Helper Relationship Specialty Start Date End Date Alexander Adams MD [address] [place] [address] PCP - General 04/06/12 07/26/23 documented as of this encounter
--- OUTSIDE RECORDS SUMMARY | 2024-04-24 21:27 | XMS_ITS | Encounter Summary ---
[place] [address] Care Team Providers Care Training Coordinator Name Role Phone Alexander Adams MD Primary Care Provider [phone] Reason for Visit * Reason Onset Date Comments Appointment 08/26/2015 Encounter Details Date Type Department Care Team (Late st Contact Info) Description 08/26/2015 [place] [phone] Melissa Cleary MD Appointment Social History Tobacco [...] AM EST Office Visit Cardiology at [address] [address] Ruben Hartman PA [facility] [place] [address] 04/26/2024 10:00 AM EST Hospital Encounter [place] [address] Arrived 09/24/2024 4:00 PM EDT Office Visit Cardiology at [address] [phone] Nathaniel Keita MD [facility] [place] [address] documented as of this encounter Visit Diagnoses Not on filedocumented in this encounter Care Teams Training Coordinator Relationship Specialty Start Date End Date Alexander Adams MD [address] [place] [address] PCP - General 04/06/12 07/26/23 documented as of this encounter
--- OUTSIDE RECORDS SUMMARY | 2024-04-24 21:27 | XMS_ITS | Encounter Summary ---
[place] [address] Care Team Providers Care Material Spreader Name Role Phone Alexander Adams MD Primary Care Provider [phone] Encounter Details Date Type Department Care Team (Late st Contact Info) Description 09/23/2015 Orders Only Cardiology at [address] [phone] Social History Tobacco Use Types Packs/Day Years [...] 11:30 AM EST Office Visit Cardiology at [address] [address] Ruben Hartman PA [facility] [place] [address] 04/26/2024 10:00 AM EST Hospital Encounter [place] [address] Arrived 09/24/2024 4:00 PM EDT Office Visit Cardiology at [address] [address] Nathaniel Keita MD [facility] [place] [address] documented as of this encounter Procedures Procedure Name Priority Date/Time Associated Diagnosis Comments CARDIAC DEVICE CHECK - REMOTE Routine 09/23/2015 6:28 AM EDT documented in this encounter Results * (ABNORMAL) Cardiac device check - Remote (09/23/2015 6:28 AM EDT) Date Time Interrogation Session [id number] IDCO Implantable Pulse Generator Farmworker Vegetable Medtronic IDCO Implantable Pulse Generator Model MANUEL II VR [id number] IDCO Implantable Pulse Generator Serial Number [id number] IDCO Type Interrogation Session Remote IDCO Implantable Pulse Generator Type Defibrillator IDCO Implantable Pulse Generator Implant Date IDCO Marcel Setting Mode (NBG Code) VVI [...] ms IDCO Battery Date Time of Measurements [id number] IDCO Battery Status OK IDCO Battery SEXUAL ASSAULT RESPONSE COORDINATOR Trigger 2.6251 IDCO Battery Voltage 3.01 V IDCO Capacitor Charge Type Reformation IDCO Capacitor Last Charge Date Time [id number] IDCO Capacitor Charge Time 9.148 s IDCO Capacitor Charge Energy 35 J IDCO Episode Identifier 191 IDCO Episode Date Time [id number] IDCO Episode Duration 2 s IDCO Episode Identifier 190 IDCO Episode Date Time [id number] IDCO Episode Duration 0 s IDCO Episode Identifier 189 IDCO Episode Date Time [id number] IDCO Episode Duration 0 s IDCO Episode Identifier 188 IDCO Episode Date Time [id number] IDCO Episode Duration 1 s IDCO Episode Identifier 187 IDCO Episode Date Time [id number] IDCO Episode Duration 2 s IDCO Episode Identifier 186 IDCO Episode Date Time [id number] IDCO Episode Duration 1 s IDCO Episode Identifier 185 IDCO Episode Date Time [id number] IDCO Episode Duration 1 s IDCO Episode Identifier 184 IDCO Episode Date Time [id number] IDCO Episode Duration 1 s IDCO Episode Identifier 183 IDCO Episode Date Time [id number] IDCO Episode Duration 2 s IDCO Episode Identifier 182 IDCO Episode Date Time [id number] IDCO Episode Duration 0 s IDCO Episode Identifier 181 IDCO Episode Date Time [id number] IDCO Episode Duration 2 s IDCO Episode Identifier 180 IDCO Episode Date Time [id number] IDCO Episode Duration 0 s IDCO Episode Identifier 179 IDCO Episode Date Time [id number] IDCO Episode Duration 0 s IDCO Episode Identifier 178 IDCO Episode Date Time [id number] IDCO Episode Duration 0 s IDCO Episode Identifier 177 IDCO Episode Date Time [id number] IDCO Episode Duration 2 s IDCO Marcel Statistic Date Time Start [id number] IDCO Marcel Statistic Date Time End IDCO Marcel Statistic RV Percent Paced 0.00 % IDCO Therapy Statistic Recent Shocks Delivered 0 IDCO Therapy Statistic Recent Shocks Aborted 0 IDCO Therapy Statistic Recent ATP Delivered 0 IDCO Therapy Statistic Recent Date Time Start [id number] IDCO Therapy Statistic Recent Date Time End IDCO Therapy Statistic Total Shocks Delivered 0 IDCO Therapy Statistic Total Shocks Aborted 0 IDCO Therapy Statistic Total ATP Delivered 0 IDCO Therapy Statistic Total Date Time Start [id number] IDCO Therapy Statistic Total Date Time End [...] IDCO Episode Statistic Recent Date Time Start [id number] IDCO Episode Statistic Recent Date Time End IDCO Episode Statistic Recent Date Time Start [id number] IDCO Episode Statistic Recent Date Time End IDCO Episode Statistic Recent Date Time Start [id number] IDCO Episode Statistic Recent Date Time End IDCO Episode Statistic Recent Date Time Start [id number] IDCO Episode Statistic Recent Date Time End [id number] IDCO Episode Statistic Recent Date Time Start [id number] IDCO Episode Statistic Recent Date Time End IDCO Episode Statistic Recent Date Time Start [id number] IDCO Episode Statistic Recent Date Time End [...] IDCO Episode Statistic Total Date Time Start [id number] IDCO Episode Statistic Total Date Time End IDCO Episode Statistic Total Date Time Start [id number] IDCO Episode Statistic Total Date Time End IDCO Episode Statistic Total Date Time Start [id number] IDCO Episode Statistic Total Date Time End IDCO Episode Statistic Total Date Time Start [id number] IDCO Episode Statistic Total Date Time End IDCO Episode Statistic Total Date Time Start [id number] IDCO Episode Statistic Total Date Time End IDCO Episode Statistic Total Date Time Start [id number] IDCO Episode Statistic Total Date Time End IDCO Anatomical Region Laterality Modality Other 09/23/2015 6:28 AM EDT Physician Cardiology IMPLANTABLE CARD IAC DEVICE documented in this encounter Visit Diagnoses Not on filedocumented in this encounter Care Teams Material Spreader Relationship Specialty Start Date End Date Alexander Adams MD [address] [place] [address] PCP - General 04/06/12 07/26/23 documented as of this encounter
--- OUTSIDE RECORDS SUMMARY | 2024-04-24 21:27 | XMS_ITS | Encounter Summary ---
[place] [address] Care Team Providers Care Precision Dyer Name Role Phone Alexander Adams MD Primary Care Provider [phone] Reason for Visit * Reason Comments Diabetes Encounter Details Date Type Department Care Team (Late st Contact Info) Description 02/17/2015 10:30 AM EST Office [place] [phone] Jaylin Salcido APRN Type 1 diabetes mellitus with diabetic retinopathy [...] has an extensive cardiac history followed by sample color maker, history of cardiac arrest 2009. PREVENTION STRATEGIES: [...] office visit with 33 minutes spent counseling [id number] with patient in the management of glucose [...] 11:30 AM EST Office Visit Cardiology at [address] [phone] Ruben Hartman PA [facility] [place] [address] 04/26/2024 10:00 AM EST Hospital Encounter Non-[place] [address] Arrived 09/24/2024 4:00 PM EDT Office Visit Cardiology at [address] [phone] Nathaniel Keita MD [facility] [place] [address] documented as of this encounter Results * TSH (09/08/2015 3:01 PM EDT) Thyroid Stimulating Hormone 0.86 0.27 - 4.20 mcIU/mL [facility] Blood specimen (specimen) 09/08/2015 3:01 PM EDT 09/08/2015 3:13 PM EDT Narrative Resulting Agency Comment Spec In Lab Chris Chatman MD CHEMISTRY ORDERABLES [facility] [place] [address] * (ABNORMAL) Hemoglobin A1c (09/08/2015 3:01 PM EDT) Pathologist [facility] Hemoglobin A1c 8.4(H) 4.3 - 5.6 % [...] Mellitus, Diabetes Care 2013; 36: Suppl. 1, S67-49 Estimated Average Glucose See note mg/dL [facility] [...] resources are available on the ADA website: http://WorldOne.Captricity/DHMCadacalc Alfred JEFFRIES, Risa J, Sergio R, et al. ??Translating the A1C assay into estimated average glucose values. ??Diabetes Care 2008:31(8):3904-4355. 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
--- OUTSIDE RECORDS SUMMARY | 2024-04-24 21:27 | XMS_ITS | Encounter Summary ---
[place] [address] Care Team Providers Care Superintendent [employer] Name Role Phone Alexander Adams MD Primary Care Provider [phone] Reason for Visit * Auth/Cert Specialty Diagnoses / Procedures Referred By Contac t Referred To Contact Diagnoses ICD (implantable cardioverter-defibrillator) in place [Z95.810] Procedures ELECTROPHYSIOLOGY PROCEDURE Referral ID Status Reason Start Date Expiration Date Visits Re quested Visits Authorized [id number] 1 1 Encounter Details Date Type Department Care Team (Latest Contact Info) Description 01/12/2019 6:54 AM EDT - 01/12/2019 12:00 PM EDT Hospital Encounter [place] [address] Parvez Meyers MD [facility] [place] [address] Discharge Disposition: Home Social History Tobacco Use [...] incision. Make sure to use a cloth tearer (such as a towel) in between the [...] F. The office scheduling phone number is [phone]. ARM MOVEMENT RESTRICTIONS POST-IMPLANT - Do not [...] this product, please call the office at [phone]. documented in this encounter Medications at Time [...] - 01/12/2019 7:55 AM EDT Liane Cole [id number] 01/12/2019 73 y.o. Cardiology EP History and [...] 11:30 AM EST Office Visit Cardiology at [address] [address] Ruben Hartman, LAURA [facility] [place] [address] 04/26/2024 10:00 AM EST Hospital Encounter Non-Invasive Cardiology Lab [facility] [address] [place] [address] Arrived 09/24/2024 4:00 PM EDT Office Visit Cardiology at [address] [place] [address] Nathaniel Keita MD [facility] [place] [address] documented as of this encounter Procedures Procedure [...] CARE TEST O KAMARI Performing Organization Address [facility] Co de Phone Number [facility] [place] [address] * (ABNORMAL) POCT Glucose (01/12/2019 7:33 AM EDT) Glucose, POC 224(H) 65 - 199 mg/dL [facility] Comment: Supplemental ranges: <140 mg/dL before meals <180 mg/dL all other times of the day Blood specimen (specimen) 01/12/2019 7:33 AM EDT 01/12/2019 7:33 AM EDT Parvez Meyers MD POINT OF CARE TEST O KAMARI Performing Organization Address City/[facility] Co de Phone Number [facility] [place] [address] * Differential, Automated (01/12/2019 7:18 AM EDT) Neutrophil % 59.6 % [facility] Neutrophil Absolute 5.23 1.70 - 6.10 x10(3)/[facility] Lymph % 29.0 % [facility] Lymphocytes Abs 2.5 0.9 - 3.2 x10(3)/[facility] Monocyte % 6.6 % [facility] Monocyte Abs 0.6 0.3 - 0.9 x10(3)/[facility] Eos % 3.8 % [facility] Eosinophils Abs 0.3 0.0 - 0.4 x10(3)/[facility] Basophil % 0.5 % [facility] Baso Absolute 0.0 0.0 - 0.1 x10(3)/[facility] Immature Gran % 0.50 % [facility] Comment: Immature granulocytes(IG's)percentage and absolute count will include metamyelocytes, myelocytes, and promyelocytes. Blood smears from CBCs yielding IG's will be scanned manually for concordance. If this scan disagrees with the automated IG or if promyelocytes are noted, a manual differential will be performed. Immature Gran Absolute 0.04 0.00 - 0.04 x10(3)/[facility] Blood specimen (specimen) 01/12/2019 7:18 AM EDT 01/12/2019 7:38 AM EDT Narrative Resulting Agency Comment Spec In Lab Parvez Meyers MD HEMATOLOGY ORDERABLE S [facility] [place] [address] * Hemogram (01/12/2019 7:18 AM EDT) White Blood Cell 8.8 4.0 - 9.5 x10(3)/[facility] Red Blood Cell 4.03 4.00 - 5.21 x10(6)/[facility] Hemoglobin 11.7 11.7 - [...] HOSPITAL LABORATORY Platelet 224 145 - 357 x10(3)/[facility] RDW Standard Deviation 44.5 37.0 - 46.0 fL [facility] RDW coefficient of variation 13.5 11.5 - 14.1 % [facility] Mean Platelet Volume 10.6 7.6 - 12.9 fL [facility] NRBC% auto 0.0 % [facility] NRBC Absolute 0.000 0.000 - 0.000 x10(3)/mcL [facility] Blood specimen (specimen) 01/12/2019 7:18 AM EDT 01/12/2019 7:38 AM EDT Narrative Resulting Agency Comment Spec In Lab Parvez Meyers MD HEMATOLOGY ORDERABLE S [facility] [place] [address] * (ABNORMAL) BMP w/fasting Glucose (01/12/2019 7:18 [...] of Diabetes Mellitus, Position Statement from the [place] Diabetes Association. ??Diabetes Care, Volume 33, Supplement [...] of body mass or the acutely ill. http://Carbonite/MUSCOGEEnkf eGFR 74 >=60 mL/min/1. 73 m?? [facility] Comment: The eGFR was calculated using the CKD-EPI equation. As with all creatinine based estimates of kidney function, eGFR values calculated with the CKD-EPI equation are not accurate in patients with acute kidney failure, extremes of body mass or the acutely ill. http://Carbonite/DHMCnkf Blood specimen (specimen) 01/12/2019 7:18 AM EDT 01/12/2019 7:38 AM EDT Narrative Resulting Agency Comment Spec In Lab Parvez Meyers MD CHEMISTRY ORDERABLES [facility] [place] [address] * SCAN DOC: IMPLANTABLE DEVICES (01/12/2019 12:00 [...] to induce or maintain moderate sedation per [place] Moderate Sedation Policy for the duration of the EP procedure., As needed to induce or maintain moderate sedation per [place] Moderate Sedation Policy for the duration of [...] to induce or maintain moderate sedation per [place] Moderate Sedation Policy for the duration of the EP procedure., As needed to induce or maintain moderate sedation per [place] Moderate Sedation Policy for the duration of [...] to induce or maintain moderate sedation per [place] Moderate Sedation Policy for the duration of the EP procedure., As needed to induce or maintain moderate sedation per [place] Moderate Sedation Policy for the duration of [...] to induce or maintain moderate sedation per [place] Moderate Sedation Policy for the duration of the EP procedure., As needed to induce or maintain moderate sedation per [place] Moderate Sedation Policy for the duration of [...] RN) documented in this encounter Care Teams Superintendent [employer] Relationship Specialty Start Date End Date Alexander Adams MD [address] [place] [address] PCP - General 04/06/12 07/26/23 documented as of this encounter
--- OUTSIDE RECORDS SUMMARY | 2024-04-24 21:27 | XMS_ITS | Encounter Summary ---
Author Organization [facility] [place] [address] Care Team Providers Care Jet Blade Polisher Name Role Phone Alexander Adams MD Primary Care Provider [phone] Reason for Visit * Reason Onset Date Comments Medication Refill 11/12/2015 Encounter Details Date Type Department Care Team (Late st Contact Info) Description 11/12/2015 Refill [place] [address] Donna Driscoll LNA Social History Tobacco Use [...] 11:30 AM EST Office Visit Cardiology at [address] [phone] Ruben Hartman, [facility] [place] [address] 04/26/2024 10:00 AM EST Hospital Encounter Non-Invasive Cardiology [place] [address] Arrived 09/24/2024 4:00 PM EDT Office Visit Cardiology at [address] [place] [address] Nathaniel Keita MD [facility] [place] [address] documented as of this encounter Visit Diagnoses Not on filedocumented in this encounter Care Teams Jet Blade Polisher Relationship Specialty Start Date End Date Alexander Adams MD [address] [place] [address] PCP - General 04/06/12 07/26/23 documented as of this encounter
--- OUTSIDE RECORDS SUMMARY | 2024-04-24 21:27 | XMS_ITS | Encounter Summary ---
[place] [address] Care Team Providers Care Social Welfare Administrator Name Role Phone Alexander Adams MD Primary Care Provider [phone] Reason for Visit * Reason Comments Establish Care medtronic Coronary Artery Disease * Consultation (Routine) - Closed Specialty Diagnoses / Procedures Referred By Contac t Referred To Contact Cardiology Diagnoses CORONARY ARTERY DISEASE Alexander Adams MD [address] [place] [address] Rudy Moralez Jr., MD [address] [place] [address] Referral ID Status Reason Start Date Expiration Date V isits Requested Visits Authorized [id number] Closed Consult, Test & Treat [facility] 02/10/2017 02/10/2018 1 1 Encounter Details Date Type Department Care Team (Latest Contact Info) Description 03/31/2017 11:20 AM EST Office Visit Cardiology at [address] [phone] Rudy Moralez Jr., MD ASCVD (arteriosclerotic cardiovascular disease); VT (ventricular tachycardia); [...] HPI She is switching follow up to [place] after previously following at [facility] then with [facility] cardiology. She has had no chest [...] - 07/02/2009 Medtronic John II VR Model# [id number], Serial# [id number] ??? CAD, out of hosp arrest and [...] 11:30 AM EST Office Visit Cardiology at [address] [place] [address] Ruben Hartman, LA[facility]A [facility] [place] [address] 04/26/2024 10:00 AM EST Hospital Encounter Non-[place] [address] Arrived 09/24/2024 4:00 PM EDT Office Visit Cardiology at [address] [place] [phone] Nathaniel Keita MD [facility] [place] [address] documented as of this encounter Visit Diagnoses Diagnosis ASCVD (arteriosclerotic cardiovascular disease) Unspecified cardiovascular disease VT (ventricular tachycardia) Paroxysmal ventricular tachycardia Essential hypertension Unspecified essential hypertension documented in this encounter Care Teams Social Welfare Administrator Relationship Specialty Start Date End Date Alexander Adams MD [address] [place] [address] PCP - General 04/06/12 07/26/23 documented as of this encounter
--- OUTSIDE RECORDS SUMMARY | 2024-04-24 21:27 | XMS_ITS | Encounter Summary ---
Author Organization [facility] [place] [address] Care Team Providers Care Credit Counselor Name Role Phone Alexander Adams MD Primary Care Provider [phone] Encounter Details Date Type Department Care Team (Latest Contact Info) Description 08/15/2014 12:51 PM EDT - 08/15/2014 11:59 PM EDT Hospital [place] [phone] Chris Chatman MD [facility] [place] [place] [address] Type I (juvenile type) diabetes mellitus with [...] PO Once daily 03/24/2010 Diabetic Supplies, Miscellan. [facility] Fax from to [facility] diabetes for pump supplies 100 each 12 08/27/2014 11/12/2015 Diabetic Supplies, Miscellan. [facility] Fax form to [facility] for testing supplies 100 each 12 08/08/2014 03/31/2017 carvedilol (COREG) 3.125 mg Tablet Take 3.125 mg by mouth every other day. (Alternating with DIOVAN) 06/23/2015 traMADol-acetaminoph en (ULTRACET) 37.5-325 mg Tablet Take 1 tablet by mouth 2 times daily as needed for Pain. 60 tablet 5 07/29/2014 02/17/2015 Diabetic Supplies, Xolaan. [facility] Fax form to [employer] for INSULIN PUMP SUPPLIES 100 each 12 [...] ULTRA 2) monitoring kit 1 each by [facility].(Non-Drug; Combo Route) route as needed for Other. Test BG 5-6 times daily. Diagnosis code 250.63 1 each 0 03/12/2013 03/31/2017 Lancets (ONE TOUCH ULTRASOFT LANCETS) Mis 1 each by [facility].(Non-Drug; Combo Route) route 6 times daily. Diag code 250.63 600 each 3 03/12/2013 03/31/2017 cholecalciferol, Vitamin D3, (CHOLECALCIFEROL, VITAMIN D3,) 2,000 unit Capsule Take 2,000 Units by mouth daily. 12/13/2018 atorvastatin (LIPITOR) 20 mg tablet Take 40 mg by mouth daily. 11/28/2014 Insulin Rollins, Disposable, (BD INSULIN PEN NEEDLE UF SHORT) 31 X 08/17 Ndle by [facility].(Non-Drug; Combo Route) route. 03/31/2017 SUBCUTANEOUS INSULIN PUMP (INSULIN PUMP [id number] [facility]) by [facility].(Non-Drug; Combo Route) route. 03/31/2017 acetaminophen (TYLENOL) 325 [...] AM EST Office Visit Cardiology at [address] [address] Ruben Hartman PA [facility] [place] [address] 04/26/2024 10:00 AM EST Hospital Encounter Non-Invasive [place] [address] Arrived 09/24/2024 4:00 PM EDT Office Visit Cardiology at [address] [address] Nathaniel Keita MD [facility] [place] [address] documented as of this encounter Procedures Procedure [...] Stimulating Hormone 0.66 0.27 - 4.20 mcIU/mL [facility] Blood specimen (specimen) 08/15/2014 12:55 PM EDT 08/15/2014 1:04 PM EDT Narrative Resulting Agency Comment Spec In Lab Chris Chatman MD CHEMISTRY ORDERABLES [facility] * (ABNORMAL) Hemoglobin A1c (08/15/2014 12:55 PM EDT) Hemoglobin A1c 7.6(H) 4.3 - 5.6 % [facility] Comment: Reference Range: 4.3 - 5.6% [...] 1, S67-74 Estimated Average Glucose 171 mg/dL [facility] Comment: eAG equivalents for HbA1c percentages: HbA1c(%) ?eAG(mg/dL) 6.0 ?126 6.5 ?140 7.0 ?154 7.5 ?169 8.0 ?183 8.5 ?197 9.0 ?212 9.5 ?226 10.0 ? 240 Limitations: The eAG calculation has not been validated on women, individuals below 18 years old and above 70 years old, and individuals with hemoglobinopathies. Additional resources are available on the ADA website: http://mana.bo.Wifi Online/DHMCadacalc Alfred JEFFRIES, Risa J, Sergio R, et al. ??Translating the A1C assay into estimated average glucose values. ??Diabetes Care 2008:31(8):1094-1072. Blood specimen (specimen) 08/15/2014 12:55 PM EDT 08/15/2014 1:04 PM EDT Narrative Resulting Agency Comment Spec In Lab Chris Chatman MD CHEMISTRY ORDERABLES Performing Organization Address City/State/ZIP [place] Phone Number [facility] documented in this encounter Visit Diagnoses Diagnosis Type I (juvenile type) diabetes mellitus with neurological manifestations, not stated as uncontrolled(250.61) Type I (juvenile type) diabetes mellitus with neurological manifestations, not stated as uncontrolled documented in this encounter Care Teams Credit Counselor Relationship Specialty Start Date End Date Alexander Adams MD [address] [place] [address] PCP - General 04/06/12 07/26/23 documented as of this encounter
--- OUTSIDE RECORDS SUMMARY | 2024-04-24 21:27 | XMS_ITS | Encounter Summary ---
[place] [address] Care Team Providers Care Stator Tester Name Role Phone Alexander Adams MD Primary Care Provider [phone] Reason for Visit * Reason Comments Cardiomyopathy Encounter Details Date Type Department Care Team (Late st Contact Info) Description 06/23/2015 3:00 PM EDT Office Visit Cardiology at [address] [phone] Thaddeus Cespedes, RN Ventricular fibrillation- with Medtronic [...] in SLS study. PCP: ALEXANDER ADAMS MD Shoe Lining Fitter: Milind Beasley MD Device and lead information Final Parameters: Ventricular lead: Medtronic Sprint Quattro Model# 6947-58 cm Serial #[id number] ??? Bipolar, steroid-tipped, active-fixation IS-1, DF-1 lead ??? Access: Left axillary vein ??? Location: Right ventricular apex ??? R wave, ICD: 8.0 mV ??? Pacing threshold, ICD: 1.0 V at 0.5 ms ??? Impedance, ICD: 532 ohms ??? HVB Impedance 33 ohms ??? SVC Impedance 39 ohms ??? Pace the diaphragm at 10 V: No Pulse generator: Medtronic John II VR Model# [id number] Serial# [id number] ??? Single-chamber ICD ??? Location: Subcutaneous Parameters: VF detection rate: >200 bpm VF therapy: ATP during charging, 30J, 35J x 5 FVT detection rate: via VF 250 bpm FVT therapy: Burst(1), 30J, 35J x 4 VT detection rate:182 bpm VT therapy: Burst(3), 20J, 35J x 4 Enhancement: Wavelet, VT Monitor Bradycardia pacing: VVI 40 Follow-up Battery status: 3.05 V STEVEDORING SUPERVISOR: 2.63 V Charge time: 9.1 sec 01/02/2015 [...] AM EST Office Visit Cardiology at [address] [address] Ruben Hartman PA [facility] [place] [address] 04/26/2024 10:00 AM EST Hospital Encounter Non[place] [address] Arrived 09/24/2024 4:00 PM EDT Office Visit Cardiology at [address] [address] Nathaniel Keita MD [facility] [place] [address] documented as of this encounter Visit Diagnoses Diagnosis Ventricular fibrillation- with Medtronic ICD implanted 2009 Ventricular fibrillation documented in this encounter Care Teams Stator Tester Relationship Specialty Start Date End Date Alexander Adams MD [address] [place] [address] PCP - General 04/06/12 07/26/23 documented as of this encounter
--- OUTSIDE RECORDS SUMMARY | 2024-04-24 21:27 | XMS_ITS | Encounter Summary ---
[place] [address] Care Team Providers Care Document Control Specialist Name Role Phone Alexander Adams MD Primary Care Provider [phone] Encounter Details Date Type Department Care Team (Late st Contact Info) Description 03/04/2015 Orders Only Cardiology at [address] [address] Social History Tobacco Use Types Packs/Day Years [...] 11:30 AM EST Office Visit Cardiology at [address] [phone] Ruben Hartman, [facility] [place] [address] 04/26/2024 10:00 AM EST Hospital Encounter Non-Invasive Cardiology Lab [facility] [place] [address] Arrived 09/24/2024 4:00 PM EDT Office Visit Cardiology at [address] [place] [address] Nathaniel Keita MD [facility] [place] [address] documented as of this encounter Procedures Procedure Name Priority Date/Time Associated Diagnosis Comments CARDIAC DEVICE CHECK - REMOTE Routine 03/04/2015 8:33 AM EST documented in this encounter Results * (ABNORMAL) Cardiac device check - Remote (03/04/2015 8:33 AM EST) Date Time Interrogation Session [id number] [employer] Implantable Pulse Generator Director Digital Marketing Medtronic IDCO Implantable Pulse Generator Model John II VR [id number] IDCO Implantable Pulse Generator Serial Number [id number] IDCO Type Interrogation Session Remote IDCO Implantable Pulse Generator Type Defibrillator IDCO Implantable Pulse Generator Implant Date [id number] IDCO Amrcel Setting Mode (NBG Code) VVI IDCO Marcel [...] ms IDCO Battery Date Time of Measurements [id number] IDCO Battery Status OK IDCO Battery CLOTHES SHAKER Trigger 2.6251 IDCO Battery Voltage 3.05 V IDCO Capacitor Charge Type Reformation IDCO Capacitor Last Charge Date Time [id number] IDCO Capacitor Charge Time 9.118 s IDCO Capacitor Charge Energy 35 J IDCO Episode Identifier 141 IDCO Episode Type Category SVT IDCO Episode Date Time [id number] IDCO Episode Duration 5 s IDCO Episode Identifier 153 IDCO Episode Date Time [id number] IDCO Episode Duration 1 s IDCO Episode Identifier 152 IDCO Episode Date Time [id number] IDCO Episode Duration 0 s IDCO Episode Identifier 151 IDCO Episode Date Time [id number] IDCO Episode Duration 1 s IDCO Episode Identifier 150 IDCO Episode Date Time [id number] IDCO Episode Duration 1 s IDCO Episode Identifier 149 IDCO Episode Date Time [id number] IDCO Episode Duration 1 s IDCO Episode Identifier 148 IDCO Episode Date Time [id number] IDCO Episode Duration 0 s IDCO Episode Identifier 147 IDCO Episode Date Time [id number] IDCO Episode Duration 0 s IDCO Episode Identifier 146 IDCO Episode Date Time [id number] IDCO Episode Duration 0 s IDCO Episode Identifier 145 IDCO Episode Date Time [id number] IDCO Episode Duration 2 s IDCO Episode Identifier 144 IDCO Episode Date Time [id number] IDCO Episode Duration 1 s IDCO Episode Identifier 143 IDCO Episode Date Time [id number] IDCO Episode Duration 1 s IDCO Episode Identifier 142 IDCO Episode Date Time [id number] IDCO Episode Duration 1 s IDCO Episode Identifier 140 IDCO Episode Date Time [id number] IDCO Episode Duration 1 s IDCO Episode Identifier 139 IDCO Episode Date Time [id number] IDCO Episode Duration 1 s IDCO Episode Identifier 138 IDCO Episode Date Time [id number] IDCO Episode Duration 2 s IDCO Marcel Statistic Date Time Start [id number] IDCO Marcel Statistic Date Time End [id number] IDCO Marcel Statistic RV Percent Paced 0.00 % IDCO Therapy Statistic Recent Shocks Delivered 0 IDCO Therapy Statistic Recent Shocks Aborted 0 IDCO Therapy Statistic Recent ATP Delivered 0 IDCO Therapy Statistic Recent Date Time Start [id number] IDCO Therapy Statistic Recent Date Time End [id number] IDCO Therapy Statistic Total Shocks Delivered 0 IDCO Therapy Statistic Total Shocks Aborted 0 IDCO Therapy Statistic Total ATP Delivered 0 IDCO Therapy Statistic Total Date Time Start 41563076395735 IDCO Therapy Statistic Total Date Time End [id number] IDCO Episode Statistic Recent Count 0 IDCO Episode Statistic Type Category VF IDCO Episode Statistic Recent Count 0 IDCO Episode Statistic Type Category VT IDCO Episode Statistic Recent Count 0 IDCO Episode Statistic Recent Count 0 IDCO Episode Statistic Recent Count 14 IDCO Episode Statistic Recent Count 1 IDCO Episode Statistic Type Category SVT IDCO Episode Statistic Recent Date Time Start [id number] IDCO Episode Statistic Recent Date Time End 58338511474775 IDCO Episode Statistic Recent Date Time Start 92756839869115 IDCO Episode Statistic Recent Date Time End 68289180146409 IDCO Episode Statistic Recent Date Time Start 65038830748591 IDCO Episode Statistic Recent Date Time End 60603467487975 IDCO Episode Statistic Recent Date Time Start 77534683832327 IDCO Episode Statistic Recent Date Time End 54421241022772 IDCO Episode Statistic Recent Date Time Start 04013781507757 IDCO Episode Statistic Recent Date Time End 72933142628821 IDCO Episode Statistic Recent Date Time Start 25855431008008 IDCO Episode Statistic Recent Date Time End [id number] IDCO Episode Statistic Total Count 0 IDCO Episode Statistic Type Category VF IDCO Episode Statistic Total Count 0 IDCO Episode Statistic Type Category VT IDCO Episode Statistic Total Count 0 IDCO Episode Statistic Total Count 0 IDCO Episode Statistic Total Count 152 IDCO Episode Statistic Total Count 1 IDCO Episode Statistic Type Category SVT IDCO Episode Statistic Total Date Time Start 27397589330267 IDCO Episode Statistic Total Date Time End 21233386721510 IDCO Episode Statistic Total Date Time Start 70317592998598 IDCO Episode Statistic Total Date Time End 76389252004300 IDCO Episode Statistic Total Date Time Start 05287733235395 IDCO Episode Statistic Total Date Time End 74281065174249 IDCO Episode Statistic Total Date Time Start 06302806938561 IDCO Episode Statistic Total Date Time End 17838334402709 IDCO Episode Statistic Total Date Time Start 94575801140881 IDCO Episode Statistic Total Date Time End 62538063910215 IDCO Episode Statistic Total Date Time Start 31873474806126 IDCO Episode Statistic Total Date Time End 71128876710737 IDCO Anatomical Region Laterality Modality Other 03/04/2015 8:33 AM EST Physician Cardiology IMPLANTABLE CARD IAC DEVICE documented in this encounter Visit Diagnoses Not on filedocumented in this encounter Care Teams Document Control Specialist Relationship Specialty Start Date End Date Alexander Adams MD [address] [place] [address] PCP - General 04/06/12 07/26/23 documented as of this encounter
--- OUTSIDE RECORDS SUMMARY | 2024-04-24 21:27 | XMS_ITS | Encounter Summary ---
[place] [address] Care Team Providers Care Unscrambler Name Role Phone Alexander Adams MD Primary Care Provider [phone] Reason for Visit * Reason Comments Follow-up 6 month F/U CAD, [place], HTN, Medtronic ICD Encounter Details Date Type Department Care Team (Late st Contact Info) Description 09/29/2017 11:20 AM EDT Office Visit Cardiology at [address] [address] Rudy Moralez Jr., MD Ventricular fibrillation- with Medtronic ICD implanted 2009; Essential hypertension; Coronary artery disease, angina presence unspecified, unspecified vessel or lesion type, unspecified whether [place] or transplanted heart Social History Tobacco Use [...] - 07/02/2009 Medtronic John II VR Model# [id number], Serial# [id number] ??? CAD, out of hosp arrest and [...] 11:30 AM EST Office Visit Cardiology at [address] [address] Ruben Hartman, PA [facility] [place] [address] 04/26/2024 10:00 AM EST Hospital Encounter Non-[place] [address] Arrived 09/24/2024 4:00 PM EDT Office Visit Cardiology at [address] [phone] Nathaniel Keita MD [facility] [place] [address] documented as of this encounter Visit Diagnoses Diagnosis Ventricular fibrillation- with Medtronic ICD implanted 2009 Ventricular fibrillation Essential hypertension Unspecified essential hypertension Coronary artery disease, angina presence unspecified, unspecified vessel or lesion type, unspecified whether [place] or transplanted heart documented in this encounter Care Teams Unscrambler Relationship Specialty Start Date End Date Alexander Adams MD [address] [place] [address] PCP - General 04/06/12 07/26/23 documented as of this encounter
--- OUTSIDE RECORDS SUMMARY | 2024-04-24 21:27 | XMS_ITS | Encounter Summary ---
Author Organization [facility] [place] [address] Care Team Providers Care Core Java Engineer Name Role Phone Alexander Adams MD Primary Care Provider [phone] Encounter Details Date Type Department Care Team (Late st Contact Info) Description 03/30/2017 Abstract Cardiology at [address] [phone] Laura Marin, RN Social History Tobacco Use [...] 11:30 AM EST Office Visit Cardiology at [address] [phone] Ruben Hartman PA [facility] [address] [place] [address] 04/26/2024 10:00 AM EST Hospital Encounter Non-Invasive Cardiology Lab [facility] [place] [address] Arrived 09/24/2024 4:00 PM EDT Office Visit Cardiology at [address] [place] [address] Nathaniel Keita MD [facility] [place] [address] documented as of this encounter Visit Diagnoses Not on filedocumented in this encounter Care Teams Core Java Engineer Relationship Specialty Start Date End Date Alexander Adams MD [address] [place] [address] PCP - General 04/06/12 07/26/23 documented as of this encounter
--- OUTSIDE RECORDS SUMMARY | 2024-04-24 21:27 | XMS_ITS | Encounter Summary ---
Author Organization [facility] [address] Care Team Providers Care Bibliographic Services Specialist Name Role Phone Alexander Adams MD Primary Care Provider [phone] Reason for Visit * Reason Onset Date Comments Medication Refill 08/08/2014 Encounter Details Date Type Department Care Team (Late st Contact Info) Description 08/08/2014 [place] [address] Elisha Nichols MD Social History Tobacco Use [...] 11:30 AM EST Office Visit Cardiology at [address] [phone] Ruben Hartman, PA [facility] [place] [address] 04/26/2024 10:00 AM EST Hospital Encounter Non-Invasive Cardiology Lab [facility] [place] [address] Arrived 09/24/2024 4:00 PM EDT Office Visit Cardiology at [address] [place] [phone] Nathaniel Keita MD [facility] [place] [place] [address] documented as of this encounter Visit Diagnoses Not on filedocumented in this encounter Care Teams Bibliographic Services Specialist Relationship Specialty Start Date End Date Alexander Adams MD [address] [place] [address] PCP - General 04/06/12 07/26/23 documented as of this encounter
--- OUTSIDE RECORDS SUMMARY | 2024-04-24 21:27 | XMS_ITS | Encounter Summary ---
Author Organization [facility] Address [facility] [place] [address] Care Team Providers Care Tape Folding Machine Operator Name Role Phone Alexander Adams MD Primary Care Provider [phone] Reason for Visit * Reason Comments Establish Care Medtronic ICD * Consultation (Routine) - Closed Specialty Diagnoses / Procedures Referred By Contact Referred To Contact Electrophysiology / Cardiology Diagnoses Ventricular fibrillation StormsNathaniel MD [facility] [place] [address] [facility] Cardiology [address] [place] [phone] Referral ID Status Reason Start Date Expiration Date V isits Requested Visits Authorized [id number] Closed Consult, Test & Treat 2018 2019 1 1 Encounter Details Date Type Department Care Team (Late st Contact Info) Description 12/13/2018 2:20 PM EDT Office Visit Cardiology at [address] [address] Vimal Meyers MD [facility] [place] [address] ICD (implantable cardioverter-defibril lator) in [...] this encounter Patient Instructions * Patient Instructions* Vimal Meyers MD - 12/13/2018 2:20 PM EDT [...] schedulers in the next 2 weeks, call [phone] and speak to'Ruma', ' Laura' For any questions, call my office: [phone] To access your health care information, go to the web at: [email or web address] (you will need to register) For educational materials: [email or web address] Vimal [email or web address], Clinical Cardiac Electrophysiology, [facility], [facility] A Healthy Heart: After Your Visit Heart [...] least 2 servings of fish a week. Smoot, mackerel, valdez, sardines, and chunk light tuna [...] irregular heartbeat. After you call [address], [address] roller operator hot mix may tell you to chew 1 adult-strength [...] more? Visit our health information library at [email or web address]. You can alsoview health information on [employer], your personal patient account. Log in or sign up today. Enter F075 in the search box to learn more about A Healthy Heart: After Your Visit. ?? [phone] [employer] documented in this encounter Progress Notes * Vimal Meyers MD - 12/13/2018 2:20 PM EDT Images from the original note were not included. 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 No heavy lifting; can climb one flight. No pain or discomfort at the site. Problem List Patient Active Problem List Diagnosis ??? Ventricular fibrillation- with Medtronic ICD implanted 200906/21/2009 [facility]--- VF presenting, ROSC post shock by EMS, intubated; Dual chamber ICD - 07/02/2009 Medtronic John II VR Model# [id number], Serial# [id number] ??? CAD, out of hosp arrest and [...] education level: None Occupational History ??? 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 I personally performed a device interrogation Celect JOHN II VR Serial Number [id number] Battery 2.63 v, KP 2.63v RV lead [...] pulse generator replacement C) Follow up in [place] device [facility] after implant VIMAL MEYERS MD 20 minutes of this 25minute [...] 11:30 AM EST Office Visit Cardiology at [address] [address] Ruben Hartman PA [facility] [place] [address] 04/26/2024 10:00 AM EST Hospital Encounter Non-Invasive Cardiology Lab [facility] [place] [address] Arrived 09/24/2024 4:00 PM EDT Office Visit Cardiology at [address] [phone] Nathaniel Keita MD [facility] [place] [address] documented as of this encounter Procedures Procedure [...] Congestive Heart Failure, ICD at KP Operators: ??VIMAL MEYERS MD Procedure: ??The patient was brought [...] ?? Final Parameters: (Old) Ventricular electrode: ?? [employer] Sprint Quattro MRI Model# 6947-58cm, Serial #[id number] Implanted 07/01/2009 ? Bipolar, steroid-tipped, active-fixation, DF-1 [...] generator: ? Medtronic VISIA AF MRI ??Model# [id number], Serial# [id number] Implanted 01/12/2019 ? VVIR ICD ? Location: ?? Subcutaneous Defibrillation testing was not performed. Explanted device Medtronic [id number] Serial Number [id number] Implanted 07/01/2009, explanted 01/12/2019 The wound was [...] cc The patient tolerated the procedure well. VIMAL MEYERS MD was the knitting machine operator, present for the entire sedation period and performed the procedure without a fellow or resident. Vimal Meyers MD EP PROCEDURE ORDERAB LES documented in this encounter Visit Diagnoses Diagnosis ICD (implantable cardioverter-defibrillator) in place ICD (implantable cardioverter-defibrillator) in place documented in this encounter Care Teams Tape Folding Machine Operator Relationship Specialty Start Date End Date Alexander Adams MD [address] [place] [address] PCP - General 04/06/12 07/26/23 documented as of this encounter
--- OUTSIDE RECORDS SUMMARY | 2024-04-24 21:27 | XMS_ITS | Encounter Summary ---
[place] [address] Care Team Providers Care Sales Trainee Name Role Phone Alexander Adams MD Primary Care Provider [phone] Encounter Details Date Type Department Care Team (Late st Contact Info) Description 04/08/2016 Telephone Cardiology at [address] [phone] Katelyn Cespedes Social History Tobacco Use Types [...] has transferred her care to a local Automobile Upholsterer, Dr. Smith in [place], [place].They will be following her ICD as well. documented in this encounter Plan of Treatment Upcoming Encounters Date Type Department Care Team (Late st Contact Info) Description 04/25/2024 11:30 AM EST Office Visit Cardiology at [address] [phone] Ruben Hartman PA [facility] [place] [address] 04/26/2024 10:00 AM EST Hospital Encounter Non-Invasive [place] [address] Arrived 09/24/2024 4:00 PM EDT Office Visit Cardiology at [address] [phone] Nathaniel Keita MD [facility] [place] [address] documented as of this encounter Visit Diagnoses Not on filedocumented in this encounter Care Teams Sales Trainee Relationship Specialty Start Date End Date Alexander Adams MD [address] [place] [address] PCP - General 04/06/12 07/26/23 documented as of this encounter
--- OUTSIDE RECORDS SUMMARY | 2024-04-24 21:27 | XMS_ITS | Encounter Summary ---
Author Organization [facility] Address [facility] [place] [address] Care Team Providers Care Hotel Engineer Name Role Phone Alexander Adams MD Primary Care Provider [phone] Reason for Referral * Consultation (Routine) - Closed Specialty Diagnoses / Procedures Referred By Contact Referred To Contact Electrophysiology / Cardiology Diagnoses Ventricular fibrillation Nathaniel Keita MD [facility] [place] [address] [address] Referral ID Status Reason Start Date Expiration Date V isits Requested Visits Authorized [id number] Closed Consult, Test & Treat 2018 2019 1 1 Reason for Visit * Reason Comments Follow-up 2 months, Medtronic pacemaker Encounter Details Date Type Department Care Team (Late st Contact Info) Description 2018 11:20 AM EDT Office Visit Cardiology at [address] [address] Nathaniel Keita MD [facility] [place] [address] Ventricular fibrillation- with Medtronic ICD implanted 2009 [...] Ventricular fibrillation- with Medtronic ICD implanted 200906/21/2009 [facility]--- VF presenting, ROSC post shock by EMS, intubated; Dual chamber ICD - 07/02/2009 Medtronic John II VR Model# [id number], Serial# [id number] ??? CAD, out of hosp arrest and [...] AM EST Office Visit Cardiology at [address] [address] Ruben HartmanLAURA [facility] [place] [address] 04/26/2024 10:00 AM EST Hospital Encounter Non-Invasive Cardiology Lab [facility] [place] [address] Arrived 09/24/2024 4:00 PM EDT Office Visit Cardiology at [address] [place] [phone] Nathaniel Keita MD [facility] [place] [address] Scheduled Referrals Name Type Priority Associated Diagnoses Order Schedule Referral to Cardiac Electrophysiology Outpatient Referral Routine Ventricular fibrillation- with Medtronic ICD implanted 2009 Ordered: 2018 documented as of this encounter Visit Diagnoses Diagnosis Ventricular fibrillation- with Medtronic ICD implanted 2009 Ventricular fibrillation documented in this encounter Care Teams Hotel Engineer Relationship Specialty Start Date End Date Alexander Adams MD [address] [place] [address] PCP - General 04/06/12 07/26/23 documented as of this encounter
--- OUTSIDE RECORDS SUMMARY | 2024-04-24 21:27 | XMS_ITS | Encounter Summary ---
[place] [address] Care Team Providers Care Bagman/Woman Name Role Phone Alexander Adams MD Primary Care Provider Encounter Details Date Type Department Care Team (Late st Contact Info) Description 03/26/2015 External Results Cardiology at [address] [phone] Alexander Adams MD [address] [place], [place] [id number] Social History Tobacco Use Types Packs/Day Years [...] AM EST Office Visit Cardiology at [address] [place] [address] Ruben Hartman, PA [facility] [place] [address] 04/26/2024 10:00 AM EST Hospital Encounter Non-Invasive Cardiology Lab [facility] [place] [address] Arrived 09/24/2024 4:00 PM EDT Office Visit Cardiology at [address] [place] [phone] Nathaniel Keita MD [facility] [place] [address] documented as of this encounter Procedures Procedure Name Priority Date/Time Associated Diagnosis Comments EP DEVICE SCAN Routine 03/04/2015 documented in this encounter Results * Scan Doc: EP Device (03/04/2015) Anatomical Region Laterality Modality Other Alexander Adams MD MEDIA MGR SCAN EXT O RDR/RSLT documented in this encounter Visit Diagnoses Not on filedocumented in this encounter Care Teams Bagman/Woman Relationship Specialty Start Date End Date Alexander Adams MD [address] [place] [address] PCP - General 04/06/12 07/26/23 documented as of this encounter
--- OUTSIDE RECORDS SUMMARY | 2024-04-24 21:27 | XMS_ITS | Encounter Summary ---
Author Organization [facility] [place] [address] Care Team Providers Care Beater Worker Helper Name Role Phone Alexander Adams MD Primary Care Provider [phone] Reason for Visit * Reason Onset Date Comments Medication Refill 12/10/2014 Encounter Details Date Type Department Care Team (Late st Contact Info) Description 12/10/2014 Ref[place] [address] Jaylin Salcido APRN Social History Tobacco Use [...] 11:30 AM EST Office Visit Cardiology at [address] [phone] Ruben Hartman, PA [facility] [place] [address] 04/26/2024 10:00 AM EST Hospital Encounter Non-Invasive Cardiology Lab [facility] [place] [address] Arrived 09/24/2024 4:00 PM EDT Office Visit Cardiology at [address] [place] [address] Nathaniel Keita MD [facility] [place] [address] documented as of this encounter Visit Diagnoses Not on filedocumented in this encounter Care Teams Beater Worker Helper Relationship Specialty Start Date End Date Alexander Adams MD [address] [place] [address] PCP - General 04/06/12 07/26/23 documented as of this encounter
--- OUTSIDE RECORDS SUMMARY | 2024-04-24 21:27 | XMS_ITS | Encounter Summary ---
Author Organization [facility] [place] [address] Care Team Providers Care Acid Tank Liner Name Role Phone Alexander Adams MD Primary Care Provider [phone] Reason for Visit * Reason Comments Follow-up Encounter Details Date Type Department Care Team (Late st Contact Info) Description 06/23/2015 3:30 PM EDT Office Visit Cardiology at [address] [address] Milind Beasley MD [facility] [place] [address] Coronary artery disease, angina presence unspecified, unspecified vessel or lesion type, unspecified whether yomba shoshone or transplanted heart; Ventricular fibrillation- with Medtronic [...] Beasley MD - 06/08/2015 10:23 AM EST [facility] Cardiovascular Medicine Identification [...] . from second in 2014. Lives in [place], [place]. 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 Family History [...] Disp: , Rfl: ??? Diabetic Supplies, Miscellan. [facility], Fax from to [facility] diabetes for pump supplies, Disp: 100 each, Rfl: 12 ??? Diabetic Supplies, Miscellan. [facility], Fax form to [facility] for testing supplies, Disp: 100 each, [...] ULTRA 2) monitoring kit, 1 each by [facility].(Non- Drug; Combo Route) route as needed for Other. Test BG 5-6 times daily. Diagnosis code 250.63, Disp: 1 each, Rfl: 0 ??? Lancets (ONE TOUCH ULTRASOFT LANCETS) [facility], 1 each by [facility].(Non-Drug; Combo Route) route 6 times daily. Diag code 250.63, Disp: 600 each, Rfl: 3 ??? Cholecalciferol, Vitamin D3, (VITAMIN D-3) 2,000 unit Cap, Take 2,000 Units by mouth daily., Disp: , Rfl: ??? Insulin [place], Disposable, (BD INSULIN PEN NEEDLE UF SHORT) 31 X 5/16 Ndle, by [facility].(Non-Drug; Combo Route) route., Disp: , Rfl: ??? SUBCUTANEOUS INSULIN PUMP (INSULIN PUMP [id number] [facility] by [facility].(Non-Drug; Combo Route) route., Disp: , Rfl: ??? [...] 78.019 kg (172 lb) BMI 26.16 kg/m2 BdC627%. She is a pleasant woman in no [...] Hx ventricular fibrillation with defibrillator [place]ed [place] [facility] [place] Intolerant of beta blockers 3. Labile hypertension On ARB Assessment She's doing well and free of angina, heart failure, and symptomatic arrhythmias. She cannot tolerate multiple beta blockers and so will not try any more. This may be because she has lost weight. Plan ?? Continue current medications ?? Follow-up in 1 year Milind Beasley MD [facility] cc: ?? ALEXANDER ADAMS MD [address] / [place] [address] documented in this encounter Plan of Treatment Upcoming Encounters Date Type Department Care Team (Late st Contact Info) Description 04/25/2024 11:30 AM EST Office Visit Cardiology at [address] [place] [address] Ruben Hartman PA [facility] [place] [address] 04/26/2024 10:00 AM EST Hospital Encounter Non-Invasive Cardiology Lab [facility] [address] Arrived 09/24/2024 4:00 PM EDT Office Visit Cardiology at [address] [place] [address] Nathaniel Keita MD [facility] [place] [address] documented as of this encounter Visit Diagnoses Diagnosis Coronary artery disease, angina presence unspecified, unspecified vessel or lesion type, unspecified whether yomba shoshone or transplanted heart Ventricular fibrillation- with Medtronic ICD implanted 2009 Ventricular fibrillation Essential hypertension Unspecified essential hypertension documented in this encounter Care Teams Acid Tank Liner Relationship Specialty Start Date End Date Alexander Adams MD [address] [place] [address] PCP - General 04/06/12 07/26/23 documented as of this encounter
--- OUTSIDE RECORDS SUMMARY | 2024-04-24 21:27 | XMS_ITS | Encounter Summary ---
[place] [address] Care Team Providers Care Net Developer Programmer Name Role Phone Alexander Adams MD Primary Care Provider [phone] Encounter Details Date Type Department Care Team (Late st Contact Info) Description 05/06/2015 Notes Only [place] [phone] Richa Falcon, RN Social History Tobacco Use [...] AM EST Office Visit Cardiology at [address] [place] [address] Ruben Hartman, LA[facility]A [facility] [place] [address] 04/26/2024 10:00 AM EST Hospital Encounter Non-Invasive Cardiology Lab [facility] [place] [address] Arrived 09/24/2024 4:00 PM EDT Office Visit Cardiology at [address] [place] [address] Nathaniel Keita MD [facility] [place] [address] documented as of this encounter Visit Diagnoses Not on filedocumented in this encounter Care Teams Net Developer Programmer Relationship Specialty Start Date End Date Alexander Adams MD [address] [place] [address] PCP - General 04/06/12 07/26/23 documented as of this encounter
--- OUTSIDE RECORDS SUMMARY | 2024-04-24 21:28 | XMS_ITS | Encounter Summary ---
[place] [address] Care Team Providers Care Epic Manager Name Role Phone Alexander Adams MD Primary Care Provider [phone] Encounter Details Date Type Department Care Team (Late st Contact Info) Description 01/11/2013 8:40 AM EDT Follow-Up Cardiology at [address] [phone] Milind Quezada MD [facility] [place] [address] CHD, s/p arrest and 2v CABG in [...] were not included. Milind Quezada MD, [place], [facility] [place] [address] Cardiology Office Visit Patient Active Problem List Diagnosis Code ??? 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 Diabetes mellitus type 1 250.01 ??? GERD (gastroesophageal reflux disease) 530.81 ??? Hypertension 401.9 ??? Ventricular fibrillation- with ICD 427.41 History Ms. Cole is a patient of Dr. Alexander Adams, an developmental education instructor in [place], [place]. Her cardiovascular history includes the following [...] angina. 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 She notices some orthostatic lightheadedness and her [...] of 152. Social History She is to [place] and lives in [place], [place]. 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 Family History Notable [...] ALEXANDER ADAMS MD [address] / [facility] [address] documented in this encounter Plan of Treatment Upcoming Encounters Date Type Department Care Team (Late st Contact Info) Description 04/25/2024 11:30 AM EST Office Visit Cardiology at [address] [place] [phone] Ruben Hartman PA [facility] [place] [address] 04/26/2024 10:00 AM EST Hospital Encounter Non-Invasive Cardiology Lab [facility] [place] [address] Arrived 09/24/2024 4:00 PM EDT Office Visit Cardiology at [address] [place] [address] Nathaniel Keita MD [facility] [place] [address] documented as of this encounter Procedures Procedure [...] (Bezet) 417 ms MUSE SYSTEM Calculated P Lindsay 82 degrees MUSE SYSTEM Calculated R Lindsay 66 degrees MUSE SYSTEM Calculated T Lindsay 69 degrees MUSE SYSTEM INTERPRETATION Normal sinus rhythm Low voltage QRS Borderline ECG When compared with ECG of 24-MAR-2010 07:53, No significant change was found Confirmed by MD HUI, VANESSA ([id number]) on 01/11/2013 10:28:31 AM MUSE SYSTEM 01/11/2013 8:54 AM EDT 01/11/2013 10:28 AM EDT Milind Quezada MD ECG ORDERABLES [employer] documented in this encounter Visit Diagnoses Diagnosis CHD, s/p arrest and 2v CABG in 2009, preserved LV function- Primary Coronary atherosclerosis of unspecified type of vessel, three affiliated or graft Hypertension Unspecified essential hypertension Ventricular fibrillation- with ICD Ventricular fibrillation documented in this encounter Care Teams Epic Manager Relationship Specialty Start Date End Date Alexander Adams MD [address] [place] [address] PCP - General 04/06/12 07/26/23 documented as of this encounter
--- OUTSIDE RECORDS SUMMARY | 2024-04-24 21:28 | XMS_ITS | Encounter Summary ---
[place] [address] Care Team Providers Care Straightening Press Operator Helper Name Role Phone Alexander Adams MD Primary Care Provider Encounter Details Date Type Department Care Team (Late st Contact Info) Description 12/19/2013 External Results Cardiology at [address] [phone] Alexander Adams MD [address] [place], [place] [phone] Social History Tobacco Use Types Packs/Day Years [...] AM EST Office Visit Cardiology at [address] [place] [address] Ruben Hartman, PA [facility] [place] [address] 04/26/2024 10:00 AM EST Hospital Encounter Non-Invasive Cardiology Lab [facility] [place] [address] Arrived 09/24/2024 4:00 PM EDT Office Visit Cardiology at [address] [place] [phone] Nathaniel Keita MD [facility] [place] [address] documented as of this encounter Procedures Procedure Name Priority Date/Time Associated Diagnosis Comments EP DEVICE SCAN Routine 12/18/2013 documented in this encounter Results * Scan Doc: EP Device (12/18/2013) Anatomical Region Laterality Modality Other Alexander Adams MD MEDIA MGR SCAN EXT O RDR/RSLT documented in this encounter Visit Diagnoses Not on filedocumented in this encounter Care Teams Straightening Press Operator Helper Relationship Specialty Start Date End Date Alexander Adams MD [address] [place] [address] PCP - General 04/06/12 07/26/23 documented as of this encounter
--- OUTSIDE RECORDS SUMMARY | 2024-04-24 21:28 | XMS_ITS | Encounter Summary ---
[place] [address] Care Team Providers Care Weave Defect Charting Clerk Name Role Phone Alexander Adams MD Primary Care Provider [phone] Encounter Details Date Type Department Care Team (Late st Contact Info) Description 08/20/2013 Notes [place] [phone] Kusum Lutz RN Social History Tobacco Use [...] Lutz RN - 08/20/2013 1:51 PM EDT [facility] Diabetes form Insulin Pump & Pump Supplies Replacement Form/Certificate of Medical Necessity completed and given to Dr. Nichols for signature, along with requested office notes/A1c of 08/08/13 and 05/08/13. To be faxed back to [facility] at [phone]. documented in this encounter Plan of Treatment Upcoming Encounters Date Type Department Care Team (Late st Contact Info) Description 04/25/2024 11:30 AM EST Office Visit Cardiology at [address] [address] Ruben Hartman PA [facility] [place] [address] 04/26/2024 10:00 AM EST Hospital Encounter Non-Invasive Cardiology Lab [facility] [place] [address] Arrived 09/24/2024 4:00 PM EDT Office Visit Cardiology at [address] [phone] Nathaniel Keita MD [facility] [place] [address] documented as of this encounter Visit Diagnoses Not on filedocumented in this encounter Care Teams Weave Defect Charting Clerk Relationship Specialty Start Date End Date Alexander Adams MD [address] [place] [address] PCP - General 04/06/12 07/26/23 documented as of this encounter
--- OUTSIDE RECORDS SUMMARY | 2024-04-24 21:28 | XMS_ITS | Encounter Summary ---
Author Organization [facility] [place] [address] Care Team Providers Care Travel Professional Name Role Phone Alexander Adams MD Primary Care Provider [phone] Reason for Visit * Reason Onset Date Comments Medication Refill 03/13/2013 Encounter Details Date Type Department Care Team (Late st Contact Info) Description 03/13/2013 Refill [place] [address] Jaylin Salcido APRN Social History Tobacco Use [...] 11:30 AM EST Office Visit Cardiology at [address] [phone] Ruben Hartman, PA [facility] [place] [address] 04/26/2024 10:00 AM EST Hospital Encounter Non-Invasive Cardiology Lab [facility] [place] [address] Arrived 09/24/2024 4:00 PM EDT Office Visit Cardiology at [address] [place] [address] Nathaniel Keita MD [facility] [place] [address] documented as of this encounter Visit Diagnoses Not on filedocumented in this encounter Care Teams Travel Professional Relationship Specialty Start Date End Date Alexander Adams MD [address] [place] [address] PCP - General 04/06/12 07/26/23 documented as of this encounter
--- OUTSIDE RECORDS SUMMARY | 2024-04-24 21:28 | XMS_ITS | Encounter Summary ---
[place] [address] Care Team Providers Care Electrical Experimental Mechanic Name Role Phone Alexander Adams MD Primary Care Provider [phone] Reason for Visit * Reason Comments Diabetes Encounter Details Date Type Department Care Team (Late st Contact Info) Description 08/08/2013 9:30 AM EDT Office [place] [phone] Elisha Nichols MD Type 1 diabetes mellitus with diabetic nephropathy; [...] Heart MD _ Fauzia Saha MD x_ José Nichols MD Justification [...] and 10 p.m. 1.15. Total basal 28.85. Fiklcod-eo-gagd 1:12. Correction factor 25. Target 95 to [...] but no recent ulceration. She sees her proced tech regularly. She has coronary disease. She had [...] by mouth daily. ??? Diabetic Supplies, Miscellan. [facility] F[facility] form to [facility] INSULIN PUMP SUPPLIES 100 [...] ULTRA 2) monitoring kit 1 each by [facility].(Non- Drug; Combo Route) route as needed for Other. Test BG 5-6 times daily. Diagnosis code 250.63 1 each 0 ??? Lancets (ONE TOUCH ULTRASOFT LANCETS) [facility] 1 each by [facility].(Non-Drug; Combo Route) route 6 timesdaily. Diag code [...] 20 mg by mouth daily. ??? Insulin [place], Disposable, (BD INSULIN PEN NEEDLE UF SHORT) 31 X 5/16 Ndle by [facility].(Non-Drug; Combo Route) route. ??? SUBCUTANEOUS INSULIN PUMP (INSULIN PUMP [id number] [facility]) by [facility].(Non-Drug; Combo Route) route. ??? aspirin 81 mg [...] children, 49 and 46. 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 REVIEW OF SYSTEMS: Complete review of systems, [...] 11:30 AM EST Office Visit Cardiology at [address] [place] [phone] Ruben Hartman PA [facility] [place] [address] 04/26/2024 10:00 AM EST Hospital Encounter Non-Invasive Cardiology Lab [facility] [place] [address] Arrived 09/24/2024 4:00 PM EDT Office Visit Cardiology at [address] [place] [address] Nathaniel Keita MD [facility] [place] [address] documented as of this encounter Results * [...] Mellitus, Diabetes Care 2013; 36: Suppl. 1, V92-59 Estimated Average Glucose 177 mg/dL THOMPSON TENA [...] resources are available on the ADA website: [email or web address]/[email or web address] Alfred JEFFRIES, Risa J, Sergio R, et al. ??Translating the A1C assay into estimated average glucose values. ??Diabetes Care 2008:31(8):2070-4174. 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
--- OUTSIDE RECORDS SUMMARY | 2024-04-24 21:28 | XMS_ITS | Encounter Summary ---
[place] [address] Care Team Providers Care Hazardous Substances Engineer Name Role Phone Alexander Adams MD Primary Care Provider [phone] Reason for Visit * Reason Onset Date Comments Eye Problem 07/31/2014 vision changes Encounter Details Date Type Department Care Team (Late st Contact Info) Description 07/31/2014 [place] [address] Celena Briceño MD [facility] [place] [address] Eye Problem (vision changes) Social History Tobacco [...] Demographics Patient Name MRN Sex Address Phone Liaen Cole [id number] Female 1945 [address] [facility] [phone] Message Good Morning, Yesterday I started having [...] 2:51 PM Author Type: Physician Status: Signed Software Design Engineer: Melissa Cleary MD (Physician) Expand All Collapse All Stable PDR OU, with full PRP and complete involution. Plan: RTC 1 yr. documented in this encounter Plan of Treatment Upcoming Encounters Date Type Department Care Team (Late st Contact Info) Description 04/25/2024 11:30 AM EST Office Visit Cardiology at [address] [place] [phone] Ruben Hartman, LA[facility] [place] [address] 04/26/2024 10:00 AM EST Hospital Encounter Non-Invasive [place] [address] Arrived 09/24/2024 4:00 PM EDT Office Visit Cardiology at [address] [place] [phone] Nathaniel Keita MD [facility] [place] [place] [address] documented as of this encounter Visit Diagnoses Not on filedocumented in this encounter Care Teams Hazardous Substances Engineer Relationship Specialty Start Date End Date Alexander Adams MD [address] [place] [address] PCP - General 04/06/12 07/26/23 documented as of this encounter
--- OUTSIDE RECORDS SUMMARY | 2024-04-24 21:28 | XMS_ITS | Encounter Summary ---
Author Organization [facility] Address [facility] [place] [address] Care Team Providers Care Group Worker Name Role Phone Alexander Adams MD Primary Care Provider [phone] Encounter Details Date Type Department Care Team (Late st Contact Info) Description 10/22/2013 Interpretation Only Radiology [address] [place] [address] [place] [phone] Unknown None Social History Tobacco Use Types [...] AM EST Office Visit Cardiology at [address] [address] Ruben Hartman, LA[facility]A [facility] [place] [id number] 04/26/2024 10:00 AM EST Hospital Encounter Non-Invasive Cardiology Lab [facility] [place] [address] Arrived 09/24/2024 4:00 PM EDT Office Visit Cardiology at [address] [place] [address] Nathaniel Keita MD [facility] [place] [address] documented as of this encounter Procedures Procedure [...] 1:23 PM EDT APD Historical Result Principal Temperature Inspector: ??DEEPTI ??HOOVER LUMBAR SPINE - FLEXION AND [...] on flexion imaging. Deepti Hoover MD BALAJI/radha [id number] CC: Procedure Note Unknown - 10/02/2018 APD Historical Result Principal Temperature Inspector: DEEPTI HOOVER LUMBAR SPINE - FLEXION AND [...] approximately 7 mm anterolisthesis of L4 on [id number] noted. The remainder of the alignment is [...] on flexion imaging. Deepti Hoover MD BALAJI/radha [id number] CC: Unknown IMG DX ORDERABLES documented in this encounter Visit Diagnoses Not on filedocumented in this encounter Care Teams Group Worker Relationship Specialty Start Date End Date Alexander Adams MD [address] [place] [address] PCP - General 04/06/12 07/26/23 documented as of this encounter
--- OUTSIDE RECORDS SUMMARY | 2024-04-24 21:28 | XMS_ITS | Encounter Summary ---
Author Organization [facility] [place] [address] Care Team Providers Care Occupational Ther Name Role Phone Alexander Adams MD Primary Care Provider [phone] Encounter Details Date Type Department Care Team (Latest Contact Info) Description 08/08/2013 9:38 AM EDT - 08/08/2013 11:59 PM EDT Hospital [place] [phone] Chris Chatman MD [facility] [place] [address] Type I (juvenile type) diabetes mellitus with [...] mg by mouth daily. 07/27/2023 [facility] Fax form to [facility] Diabetes INSULIN PUMP SUPPLIES 100 each 12 [...] ULTRA 2) monitoring kit 1 each by [facility].(Non-Drug; Combo Route) route as needed for Other. Test BG 5-6 times daily. Diagnosis code 250.63 1 each 0 03/12/2013 03/31/2017 Lancets (ONE TOUCH ULTRASOFT LANCETS) [facility] 1 each by [facility].(Non-Drug; Combo Route) route 6 times [...] 40 mg by mouth daily. 11/28/2014 Insulin [place], Disposable, (BD INSULIN PEN NEEDLE UF SHORT) 31 X 08/17 Ndle by Misc.(Non-Drug; Combo Route) route. 03/31/2017 SUBCUTANEOUS INSULIN PUMP (INSULIN PUMP [id number] MIS) by Misc.(Non-Drug; Combo Route) route. 03/31/2017 [...] 11:30 AM EST Office Visit Cardiology at [address] [address] Ruben Hartman, PA [facility] [address] 04/26/2024 10:00 AM EST Hospital Encounter [place] [address] Arrived 09/24/2024 4:00 PM EDT Office Visit Cardiology at [address] [address] Nathaniel Keita MD [facility] [address] documented as of this encounter Procedures Procedure [...] 1, S67-74 Estimated Average Glucose 206 mg/dL [facility] Comment: eAG equivalents for HbA1c percentages: [...] into estimated average glucose values. ??Diabetes Care 2008:31(8):0171-0904. 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
--- OUTSIDE RECORDS SUMMARY | 2024-04-24 21:28 | XMS_ITS | Encounter Summary ---
Author Organization [facility] Address [facility] [place] [address] Care Team Providers Care It Sales Executive Name Role Phone Alexander Adams MD Primary Care Provider [phone] Encounter Details Date Type Department Care Team (Late st Contact Info) Description 01/09/2014 Interpretation Only Radiology [address] [place] [address] [place] [phone] Unknown None Social History Tobacco Use Types [...] 11:30 AM EST Office Visit Cardiology at [address] [address] Ruben Hartman, LAURA [facility] [place] [address] 04/26/2024 10:00 AM EST Hospital Encounter Non-Invasive Cardiology Lab [facility] [place] [address] Arrived 09/24/2024 4:00 PM EDT Office Visit Cardiology at [address] [place] [address] Nathaniel Keita MD [facility] [place] [address] documented as of this encounter Procedures Procedure [...] 10:07 AM EDT APD Historical Result Principal Gasoline Catalyst Operator: ??ANTOINE ??CHEO LUMBAR SPINE - TWO VIEWS: [...] and neutral positioning. Antoine Holden MD OL/radha [id number] CC: Procedure Note Unknown - 10/02/2018 APD Historical Result Principal Gasoline Catalyst Operator: ANTOINE HOLDEN LUMBAR SPINE - TWO VIEWS: [...] extension, andneutral positioning. Antoine Holden MD OL/radha [id number] CC: Unknown IMG DX ORDERABLES documented in this encounter Visit Diagnoses Not on filedocumented in this encounter Care Teams It Sales Executive Relationship Specialty Start Date End Date Alexander Adams MD [address] [place] [address] PCP - General 04/06/12 07/26/23 documented as of this encounter
--- OUTSIDE RECORDS SUMMARY | 2024-04-24 21:28 | XMS_ITS | Encounter Summary ---
[place] [address] Care Team Providers Care Educational Fundraising Director Name Role Phone Alexander Adams MD Primary Care Provider [phone] Reason for Visit * Reason Comments Diabetes Encounter Details Date Type Department Care Team (Late st Contact Info) Description 05/08/2013 10:00 AM EST Office [place] [phone] Jaylin Salcido APRN Type I (juvenile type) diabetes mellitus with [...] Progress Notes * Jaylin Salcido APRN - 05/09/2013 9:19 AM EST DATE [...] is doing okay. 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 Eyes: Followed closely by reliability technician. No recent headaches or chest pain, has an ICD. GI symptoms: States she had cold symptoms and was vomiting for a while, but now that has resolved. Sleep pattern varies depending on amount of back pain she has. Extremities: Has little feeling in her feet, followed by rural route mail carrier, Dr. King in [place]. PHYSICAL EXAMINATION: Appearance: She is overweight. Appears [...] 11:30 AM EST Office Visit Cardiology at [address] [place] [address] Ruben Hartman, LAURA [facility] [place] [address] 04/26/2024 10:00 AM EST Hospital Encounter Non-Invasive Cardiology Lab [facility] [place] [address] Arrived 09/24/2024 4:00 PM EDT Office Visit Cardiology at [address] [place] [address] Nathaniel Keita MD [facility] [place] [address] documented as of this encounter Procedures Procedure [...] 1, S67-74 Estimated Average Glucose 206 mg/dL [facility] [...] into estimated average glucose values. ??Diabetes Care 2008:31(8):2359-0475. Blood specimen (specimen) 08/08/2013 9:44 AM EDT 08/08/2013 9:52 AM EDT Narrative Resulting Agency Comment Spec In Lab Chris Chatman MD CHEMISTRY ORDERABLES [facility] * Microalbumin, urine, random (05/08/2013 9:51 AM EST) Creatinine, Urine 134 mg/dL [facility] Albumin, Urine 16.4 mg/L CERNE R [facility] Albumin / Creatinin Ratio, Urine 12 mcg/mg Cr [facility] Comment: Reference Range* Random collection (mcg/mg creatinine) Normal ?<30 Microalbuminuria ?? 30 - 300 Clinical Albuminuria ?? >300 *[employer] Diabetes [employer]. Diabetic Nephropathy. Diabetes Care 1997;(Suppl 1):S24-S27 Exercise within 24 hour, infection, fever, CHF, marked hyperglycemia, and marked hypertension may elevate urinary albumin excretion over baseline values. Urine specimen (specimen) 05/08/2013 9:51 AM EST 05/08/2013 10:09 AM EST Narrative Resulting Agency Comment Spec In Lab Chris Chatman MD URINE ORDERABLES Performing Organization Address [facility] Co de Phone Number [facility] * TSH (05/08/2013 9:49 AM EST) Thyroid Stimulating Hormone 1.21 0.27 - 4.20 mcIU/mL [facility] Blood specimen (specimen) 05/08/2013 9:49 AM EST 05/08/2013 10:09 AM EST Narrative Resulting Agency Comment Spec In Lab Chris Chatman MD CHEMISTRY ORDERABLES Performing Organization Address [facility] Co de Phone Number [facility] * (ABNORMAL) Hemoglobin A1c (05/08/2013 9:49 AM EST) Hemoglobin A1c 8.2(H) <=5.6 % [facility] Comment: As of 2013 the methodology for [...] Mellitus, Diabetes Care 2013; 36: Suppl. 1, O27-97 Estimated Average Glucose 189 mg/dL [facility] Comment: eAG equivalents for HbA1c percentages: HbA1c(%) [...] into estimated average glucose values. ??Diabetes Care 2008:31(8):4278-5949. 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
--- OUTSIDE RECORDS SUMMARY | 2024-04-24 21:28 | XMS_ITS | Encounter Summary ---
Author Organization [facility] Address [facility] [place] [address] Care Team Providers Care Senior Data Architect Name Role Phone Alexander Adams MD Primary Care Provider [phone] Encounter Details Date Type Department Care Team (Late st Contact Info) Description 09/17/2013 Interpretation Only Radiology [address] [place] [address] [place] [phone] Unknown None Social History Tobacco Use Types [...] AM EST Office Visit Cardiology at [address] [phone] Ruben Hartman, LAURA [facility] [place] [place] [address] 04/26/2024 10:00 AM EST Hospital Encounter Non-Invasive Cardiology [place] [address] Arrived 09/24/2024 4:00 PM EDT Office Visit Cardiology at [address] [place] [phone] Nathaniel Keita MD [facility] [place] [address] documented as of this encounter Procedures Procedure Name Priority Date/Time Associated Diagnosis Comments XR FLUORO NO RAD <1HR - RADIOLOGY USE Routine 09/17/2013 6:34 AM EDT documented in this encounter Results * XR Fluoro <1Hr - Radiology Use (09/17/2013 6:34 AM EDT) Anatomical Region Laterality Modality N/A Radiographic Bushra ging 09/17/2013 6:34 AM EDT Narrative 09/17/2013 6:34 AM EDT APD Historical Result Principal Delivery Driver Assistant: ??DEEPTI ??JEANMARIE C-ARM: HISTORY: ??Left L4-5 posterior [...] separate procedure report. Deepti Hoover MD Melanie [id number] CC: Procedure Note Unknown - 10/02/2018 APD Historical Result Principal Delivery Driver Assistant: DEEPTI HOOVER C-ARM: HISTORY: Left L4-5 posterior [...] to separate procedurereport. Deepti Hoover MD BALAJI/radha [id number] CC: Unknown IMG FLUORO ORDERABLE S documented in this encounter Visit Diagnoses Not on filedocumented in this encounter Care Teams Senior Data Architect Relationship Specialty Start Date End Date Alexander Adams MD [address] [place] [address] PCP - General 04/06/12 07/26/23 documented as of this encounter
--- OUTSIDE RECORDS SUMMARY | 2024-04-24 21:28 | XMS_ITS | Encounter Summary ---
Author Organization [place] [address] Care Team Providers Care Staff Home Therapy Rn Name Role Phone Alexander Adams MD Primary Care Provider [phone] Reason for Visit * Reason Comments Follow-up Encounter Details Date Type Department Care Team (Late st Contact Info) Description 05/16/2014 9:10 AM EST Follow-Up Cardiology at [address] [address] Thaddeus Cespedes RN Andrus, Bruce W, MD [facility] [place] [address] Ventricular fibrillation- with ICD; Essential hypertension; CHD, [...] Beasley MD - 05/16/2014 8:57 AM EST [facility] Cardiology Clinic Identification Ms. Cole is a 68 y.o. patient care followed by Dr. Adams, an china and silverware salesperson in [place], [place] with the following CV issues: 1. [...] 2013 Has spinal fusion in September at [facility] and it made a BIG difference No cardiac concerns. No angina, sob, edema, palpitations. No ICD discharges Had DSE preop in September and it showed only apical ischemia. Walking 3 miles per hour. Last A1c was 7.9. Increased insulin to 1 unit for every 8 gms of CHO. Social History (Phillip) Lives in [place], [place]. Near [facility]. 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 Family History Notable for diabetes, coronary disease, and strokes. Medications Current Outpatient Prescriptions Medication Sig Dispense Refill ??? Diabetic Supplies, [facility] F[facility] to [employer] for INSULIN PUMP SUPPLIES 100 each 12 [...] ULTRA 2) monitoring kit 1 each by [facility].(Non- Drug; Combo Route) route as needed for Other. Test BG 5-6 times daily. Diagnosis code 250.63 1 each 0 ??? Lancets (ONE TOUCH ULTRASOFT LANCETS) [facility] 1 each by [facility].(Non-Drug; Combo Route) route 6 timesdaily. Diag code 250.63 600 each 3 ??? Cholecalciferol, Vitamin D3, (VITAMIN D-3) 2,000 unit Cap Take 2,000 Units by mouth daily. ??? atorvastatin (LIPITOR) 20 mg tablet Take 20 mg by mouth daily. ??? Insulin [place], Disposable, (BD INSULIN PEN NEEDLE UF SHORT) 31 X 5/16 Ndle by [facility].(Non-Drug; Combo Route) route. ??? SUBCUTANEOUS INSULIN PUMP (INSULIN PUMP [id number] [employer] [facility] [employer]) by [facility].(Non-Drug; Combo Route) route. ??? aspirin 81 mg [...] ALEXANDER ADAMS MD [address] / [facility] [address] documented in this encounter Plan of Treatment Upcoming Encounters Date Type Department Care Team (Late st Contact Info) Description 04/25/2024 11:30 AM EST Office Visit Cardiology at [address] [phone] Ruben Hartman, PA [facility] [place] [address] 04/26/2024 10:00 AM EST Hospital Encounter Non-Invasive [place] [address] Arrived 09/24/2024 4:00 PM EDT Office Visit Cardiology at [address] [phone] Nathaniel Keita MD [facility] [place] [address] documented as of this encounter Visit Diagnoses Diagnosis Ventricular fibrillation- with ICD Ventricular fibrillation Essential hypertension Unspecified essential hypertension CHD, s/p arrest and 2v CABG in 2009, preserved LV function Coronary atherosclerosis of unspecified type of vessel, knik or graft documented in this encounter Care Teams Staff Home Therapy Rn Relationship Specialty Start Date End Date Alexander Adams MD [address] [place] [address] PCP - General 04/06/12 07/26/23 documented as of this encounter
--- OUTSIDE RECORDS SUMMARY | 2024-04-24 21:28 | XMS_ITS | Encounter Summary ---
Author Organization [facility] [place] [address] Care Team Providers Care Solutions Executive Cloud Sales Name Role Phone Alexander Adams MD Primary Care Provider [phone] Reason for Visit * Reason Onset Date Comments Medication Refill 12/21/2013 Encounter Details Date Type Department Care Team (Late st Contact Info) Description 12/21/2013 Refill [place] [address] Jaylin Salcido APRN Social History Tobacco Use [...] AM EST Office Visit Cardiology at [address] [phone] Ruben Hratman, PA [facility] [place] [address] 04/26/2024 10:00 AM EST Hospital Encounter Non-Invasive Cardiology Lab [facility] [place] [address] Arrived 09/24/2024 4:00 PM EDT Office Visit Cardiology at [address] [place] [address] Nathaniel Keita MD [facility] [place] [address] documented as of this encounter Visit Diagnoses Not on filedocumented in this encounter Care Teams Solutions Executive Cloud Sales Relationship Specialty Start Date End Date Alexander Adams MD [address] [place] [address] PCP - General 04/06/12 07/26/23 documented as of this encounter
--- OUTSIDE RECORDS SUMMARY | 2024-04-24 21:28 | XMS_ITS | Encounter Summary ---
Author Organization [facility] [place] [address] Care Team Providers Care Wardrobe Stylist Name Role Phone Alexander Adams MD Primary Care Provider [phone] Reason for Visit * Reason Onset Date Comments Medication Refill 03/12/2013 Encounter Details Date Type Department Care Team (Late st Contact Info) Description 03/12/2013 [place] [address] Jaylin Salcido APRN Social History Tobacco Use [...] AM EST Office Visit Cardiology at [address] [phone] Ruben Hartman, PA [facility] [place] [address] 04/26/2024 10:00 AM EST Hospital Encounter Non-Invasive Cardiology Lab [facility] [place] [address] Arrived 09/24/2024 4:00 PM EDT Office Visit Cardiology at [address] [place] [address] Nathaniel Keita MD [facility] [place] [address] documented as of this encounter Visit Diagnoses Not on filedocumented in this encounter Care Teams Wardrobe Stylist Relationship Specialty Start Date End Date Alexander Adams MD [address] [place] [address] PCP - General 04/06/12 07/26/23 documented as of this encounter
--- OUTSIDE RECORDS SUMMARY | 2024-04-24 21:28 | XMS_ITS | Encounter Summary ---
[place] [address] Care Team Providers Care Equipment Mechanic Name Role Phone Alexander Adams MD Primary Care Provider [phone] Reason for Visit * Reason Onset Date Comments Medication Refill 01/04/2014 Encounter Details Date Type Department Care Team (Late st Contact Info) Description 01/04/2014 [place] [address] Melisa Randhawa MD [facility] [place] [address] DM (diabetes mellitus) (Primary Dx) Social History [...] AM EST Office Visit Cardiology at [address] [address] Ruben Hartman, LAURA [facility] [place] [address] 04/26/2024 10:00 AM EST Hospital Encounter Non-Invasive Cardiology Lab [facility] [place] [address] Arrived 09/24/2024 4:00 PM EDT Office Visit Cardiology at [address] [place] [phone] Nathaniel Keita MD [facility] [place] [address] documented as of this encounter Visit Diagnoses Diagnosis DM (diabetes mellitus)- Primary Type II or unspecified type diabetes mellitus without mention of complication, not stated as uncontrolled documented in this encounter Care Teams Equipment Mechanic Relationship Specialty Start Date End Date Alexander Adams MD [address] [place] [address] PCP - General 04/06/12 07/26/23 documented as of this encounter
--- OUTSIDE RECORDS SUMMARY | 2024-04-24 21:28 | XMS_ITS | Encounter Summary ---
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 [address] [facility] [address] [place] [phone] Referral ID Status Reason Start Date Expiration Date Visits Requested Visits Authorized [id number] Complete-Ref Provider Notified Consult, Test & Treat 3 07/10/2013 1 1 Reason for Visit * Reason Comments Diabetes Encounter Details Date Type Department Care Team (Late st Contact Info) Description 01/11/2013 9:30 AM EDT Office [place] [address] Jaylin Salcido APRN Type I (juvenile type) [...] had an appointment earlier this a.m. with magazine feeder, Dr. Beasley. She states they discussed that [...] pain. Eyes: Due for annual appointment with wired sweatband cutter. 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 Hemoglobin A1c [...] office visit with 35 minutes spent counseling [id number] with the patient in the management of glucose levels, lowering target glucose on pump to 110, reviewing blood pressure targets and cholesterol targets. Recent Results (from the past 72 hour(s)) EKG 12-LEAD Component Value Range Ventricular rate 80 Atrial Rate 80 P-R Interval 180 QRS Duration 80 Q-T Interval 362 QTC Calculated (Bezet) 417 Calculated P [place] 82 Calculated R [place] 66 Calculated T [place] 69 INTERPRETATION Value: Normal sinus rhythm Low voltage QRS Borderline ECG When compared with ECG of 21-DEC-2010 07:53, No significant change was found Confirmed by MD AMES SCOTT ([id number]) on 01/11/2013 10:28:31 AM COMPREHENSIVE METABOLIC PANEL [...] 11:30 AM EST Office Visit Cardiology at [address] [place] [address] Ruben Hartman, LAURA [facility] [place] [address] 04/26/2024 10:00 AM EST Hospital Encounter Non-Invasive Cardiology Lab [facility] [phone] Arrived 09/24/2024 4:00 PM EDT Office Visit Cardiology at [address] [place] [address] Nathaniel Keita MD [facility] [place] [address] Scheduled Referrals Name Type Priority Associated Diagnoses [...] CE RNER MILLENNIUM Albumin, Urine 16.4 mg/L CERROSALINDA R MILLENNIUM Albumin / Creatinin Ratio, Urine 12 mcg/mg Cr [facility] Comment: Reference Range* Random collection (mcg/mg creatinine) Normal ?<30 Microalbuminuria ?? 30 - 300 Clinical Albuminuria ?? >300 *[place] Diabetes Association. Diabetic Nephropathy. Diabetes Care 1997;(Suppl 1):S24-S27 Exercise within 24 hour, infection, fever, CHF, marked hyperglycemia, and marked hypertension may elevate urinary albumin excretion over baseline values. Urine specimen (specimen) 05/08/2013 9:51 AM EST 05/08/2013 10:09 AM EST Narrative Resulting Agency Comment Spec In Lab Chris Chatman MD URINE ORDERABLES [facility] * TSH (05/08/2013 9:49 AM EST) Thyroid Stimulating Hormone 1.21 0.27 - 4.20 mcIU/mL [facility] Blood specimen (specimen) 05/08/2013 9:49 AM EST 05/08/2013 10:09 AM EST Narrative Resulting Agency Comment Spec In Lab Chris Chatman MD CHEMISTRY ORDERABLES [facility] * (ABNORMAL) Hemoglobin A1c (05/08/2013 9:49 AM EST) Hemoglobin A1c 8.2(H) <=5.6 % [facility] Comment: As of 2013 the methodology [...] Mellitus, Diabetes Care 2013; 36: Suppl. 1, Y97-77 Estimated Average Glucose 189 mg/dL [facility] Comment: eAG equivalents for HbA1c percentages: [...] into estimated average glucose values. ??Diabetes Care 2008:31(8):5761-8742. Blood specimen (specimen) 05/08/2013 9:49 AM EST 05/08/2013 10:09 AM EST Narrative Resulting Agency Comment Spec In Lab Chris Chatman MD CHEMISTRY ORDERABLES [facility] * HDL/Cholesterol Profile (01/11/2013 9:48 AM EDT) Cholesterol, Total 161 <=199 mg/dL [facility] Comment: Recommendations of the NCEP Adult Treatment Panel for the following risk cutoff thresholds for the [place] population: Desirable: <200 mg/dL Borderline High: 200-239 mg/dL High: > or = 240 mg/dL HDL Cholesterol 50 >=40 mg/dL [facility] Comment: Reference range: ??Low HDL: ?? < 40 mg/dL ??Normal: ?40-60 mg/dL ??Desirable: > 60 mg/dL REJI 2001; 285(19):4833-9663 Cholesterol/HDL Ratio 3.2 ratio [facility] Comment: A Cholesterol to HDL ratio below 4:1 is desirable. ??Studies suggest that increased CAD risk occurs at ratios above 5 for females and above 6 for men. ? [place] Heart Association ??(http://www.americanheart.org) ? Aurelia Int Med, 1994; 121:641 ? AM J Med, 1998; 105(1A):48S Blood specimen (specimen) 01/11/2013 9:48 AM EDT 01/11/2013 9:57 AM EDT Narrative Resulting Agency Comment Spec In Lab Chris Chatman MD CHEMISTRY ORDERABLES Performing Organization Address [facility] de Phone Number [facility] * LDL Cholesterol, Direct (01/11/2013 9:48 AM EDT) LDL Cholesterol, Direct 98 <=99 mg/dL [facility] Comment: The National Cholesterol Education Program (NCEP) has set the following guidelines for LDL Cholesterol: Reference range: ?? Optimal: ?<100 mg/dL ?? Near Optimal/Above Optimal: ?? 100-129 mg/dL ?? Borderline high: ?130-159 mg/dL ?? High: ? 160-189 mg/dL ?? Very high: ?>ld=865 mg/dL REJI 2001: 285(19):5216-8586 Blood specimen (specimen) 01/11/2013 9:48 AM EDT 01/11/2013 9:57 AM EDT Narrative Resulting Agency Comment Spec In Lab Chris Chatman MD CHEMISTRY ORDERABLES Performing Organization Address [facility] de Phone Number [facility] * (ABNORMAL) Hemoglobin A1c (01/11/2013 9:48 AM EDT) Hemoglobin A1c 8.1(H) 4.3 - 6.1 % [facility] Comment: The [place] Diabetes Association (ADA) has stated that HbA1c [...] 2013:36;suppl 1:S11-S66. Estimated Average Glucose 186 mg/dL [facility] Comment: eAG equivalents for HbA1c percentages: HbA1c(%) ?eAG(mg/dL) 6.0 ?126 6.5 ?140 7.0 ?154 7.5 ?169 8.0 ?183 8.5 ?197 9.0 ?212 9.5 ?226 10.0 ? 240 Limitations: The eAG calculation has not been validated on women, individuals below 18 years old and above 70 years old, and individuals with hemoglobinopathies. Additional resources are available on the ADA website: ??http://professional.diabetes.org/glucosecalculator.aspx Aflred JEFFRIES, Risa Chavez, Sergio R, et al. ??Translating the A1C assay into estimated average glucose values. ??Diabetes Care 2008:31(8):8197-0183. Blood specimen (specimen) 01/11/2013 9:48 AM EDT 01/11/2013 9:57 AM EDT Narrative Resulting Agency Comment Spec In Lab Chris Chatman MD CHEMISTRY ORDERABLES [facility] * (ABNORMAL) Comprehensive metabolic panel (non-fasting) (01/11/2013 9:48 AM EDT) [facility] Glucose 315(H) 60 - 199 mg/dL CERNER MILLENNIUM Comment:Diabetes: >=200 mg/d L plus symptoms Blood Urea Nitrogen 21(H) 8 - 18 mg/dL CERNER MILLENNIUM Creatinine 1.17 0.70 - 1.20 mg/dL [facility]ILL[facility] Comment: Please note that the pediatric reference intervals supplied above were not validated at [facility]. 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
--- OUTSIDE RECORDS SUMMARY | 2024-04-24 21:28 | XMS_ITS | Encounter Summary ---
[place] [address] Care Team Providers Care Ammonia Solution Preparer Name Role Phone Alexander Adams MD Primary Care Provider [phone] Encounter Details Date Type Department Care Team (Late st Contact Info) Description 10/18/2012 External Results Cardiology at [address] [phone] Neva Pugh MD [address] [place] [id number] Social History Tobacco Use Types Packs/Day Years [...] 11:30 AM EST Office Visit Cardiology at [address] [place] [address] Ruben Hartman, PA [facility] [place] [address] 04/26/2024 10:00 AM EST Hospital Encounter Non-Invasive Cardiology Lab [facility] [place] [address] Arrived 09/24/2024 4:00 PM EDT Office Visit Cardiology at [address] [place] [phone] Nathaniel Keita MD [facility] [place] [place] [address] documented as of this encounter Procedures Procedure Name Priority Date/Time Associated Diagnosis Comments EP DEVICE SCAN Routine 10/10/2012 documented in this encounter Results * Scan Doc: EP Device (10/10/2012) Anatomical Region Laterality Modality Other Neva Pugh MD MEDIA MGR SCAN EXT O RDR/RSLT documented in this encounter Visit Diagnoses Not on filedocumented in this encounter Care Teams Ammonia Solution Preparer Relationship Specialty Start Date End Date Alexander Adams MD [address] [place] [address] PCP - General 04/06/12 07/26/23 documented as of this encounter
--- OUTSIDE RECORDS SUMMARY | 2024-04-24 21:28 | XMS_ITS | Encounter Summary ---
[place] [address] Care Team Providers Care Cake Stripper Name Role Phone Alexander Adams MD Primary Care Provider [phone] Encounter Details Date Type Department Care Team (Latest Contact Info) Description 09/14/2013 9:21 AM EDT - 09/14/2013 11:59 PM EDT Hospital Encounter Non-[place] [phone] CLINIC, Bhavna Moura MD Heart disease, unspecified; [...] mg by mouth daily. 07/27/2023 Diabetic Supplies, [employer]. [facility] Fax form to [facility] Diabetes INSULIN PUMP SUPPLIES 100 each [...] ULTRA 2) monitoring kit 1 each by [facility].(Non-Drug; Combo Route) route as needed for Other. Test BG 5-6 times daily. Diagnosis code 250.63 1 each 0 03/12/2013 03/31/2017 Lancets (ONE TOUCH ULTRASOFT LANCETS) Misc 1 each by [facility].(Non-Drug; Combo Route) route 6 times daily. Diag [...] 40 mg by mouth daily. 11/28/2014 Insulin [place], Disposable, (BD INSULIN PEN NEEDLE UF SHORT) 31 X 08/17 Ndle by [facility].(Non-Drug; Combo Route) route. 03/31/2017 SUBCUTANEOUS INSULIN PUMP (INSULIN PUMP [id number] [facility]) by [facility].(Non-Drug; Combo Route) route. 03/31/2017 acetaminophen (TYLENOL) 325 [...] AM EST Office Visit Cardiology at [address] [address] Ruben Hartman, LAURA [facility] [place] [address] 04/26/2024 10:00 AM EST Hospital Encounter Non-[place] [address] Arrived 09/24/2024 4:00 PM EDT Office Visit Cardiology at [address] [address] Nathaniel Keita MD [facility] [place] [address] documented as of this encounter Procedures Procedure [...] KAN Tyler ? (Age): 1945(67) Med Rec#: ?[id number] ? Sex: ?F ? [place] Loc[place] [place] Ht / Wt: ??172(cm)/87(kg) Pt. Loc: ? Echo Lab ? BSA: ?2 Study Date: ?09/14/2013 ? Pt. Type: Outpatient Tape: ? Referring: Bhavna Malin Referring: BHAVNA MALIN B Side Stitcher: Gifty Fleming Nurse: Esvin Messer RN Diagnosis:CPT Code(s): ??Color Doppler (98970), ??ECG Interpretation (94960), ??Definity (01171XQ), ??Stress Echo (78009), ??Spectral Doppler (30072), Indication(s): ??Pre-op cardiovascular evaluation Medication(s): ?? Rhythm: [...] ?Normal ?Normal ? Mid-Inferoseptal ?Normal ?Normal ? [place]-Septal ? Normal ?Normal ? [place]-Anterior ? Normal ?Normal ? [place]-Lateral ?Normal ?Normal ? [place]-Inferior ? Normal ?Normal ? [place]-Tip ?Normal ?Akinetic ? Chambers ?Value ?Units (Range) [...] 09/14/2013 11:22:11 Images reviewed and interpretation verified [facility] Cardiac Ultrasound Laboratory Procedure Note Carter Mota MD - 09/14/2013 Procedure: Stress Echocardiogram Patient: KAN MATHIS(Age): 1945(67) Med Rec#: [id number] Sex: F [place] Loc[place] [facility] [place] Ht / Wt: 172(cm)/87(kg) Pt. Loc: Echo Lab BSA: 2 Study Date: 09/14/2013 Pt. Type: Outpatient Tape: Referring: Bhavna Malin Referring: BHAVNA MALIN B Side Stitcher: Gifty Fleming Nurse: Esvin Messer RN Diagnosis:CPT Code(s): Color Doppler (19179), ECG Interpretation (79563), Definity (94109MH), Stress Echo (55127), Spectral Doppler (75793), Indication(s): Pre-op cardiovascular evaluation Medication(s): Rhythm: Stage [...] lowering agent. The patient is taking aspirin. [facility] Other echo and stress findings as noted [...] Normal Mid-Inferior Normal Normal Mid-Inferoseptal Normal Normal [place]-Septal Normal Normal [place]-Anterior Normal Normal [place]-Lateral Normal Normal [place]-Inferior Normal Normal [place]-Tip Normal Akinetic Chambers Value Units (Range) LV [...] 09/14/2013 11:22:11 Images reviewed and interpretation verified [facility] Cardiac Ultrasound Laboratory Bhavna Malin MD ECHO [...] mLs documented in this encounter Care Teams Cake Stripper Relationship Specialty Start Date End Date Alexander Adams MD [address] [place] [address] PCP - General 04/06/12 07/26/23 documented as of this encounter
--- OUTSIDE RECORDS SUMMARY | 2024-04-24 21:28 | XMS_ITS | Encounter Summary ---
[place] [address] Care Team Providers Care Top Lifter Name Role Phone Alexander Adams MD Primary Care Provider [phone] Reason for Visit * Reason Onset Date Comments Medication Refill 11/19/2013 Encounter Details Date Type Department Care Team (Late st Contact Info) Description 11/19/2013 [place] [phone] Jaylin Sandoval APRN Social History Tobacco Use Types Packs/Day [...] traMADol-acetaminophen (ULTRACET) 37.5-325 mg per tablet [JAYLIN SANDOVAL, FOOT SPECIALIST] Preferred pharmacy: [facility] - [place], [place] - [address] [facility] Comment: When I phoned for my refill today I was told that as of today this Rx. is now refillable only for 6months instead of 1 year as it used to be. Please renew this at [facility] in [place], [place] for the 60 tablets with 5 refills. Thanks so much. Katelynn Cole documented in this encounter Plan of Treatment Upcoming Encounters Date Type Department Care Team (Late st Contact Info) Description 04/25/2024 11:30 AM EST Office Visit Cardiology at [address] [address] Ruben Hartman PA [facility] [place] [address] 04/26/2024 10:00 AM EST Hospital Encounter Non-Invasive [place] [address] Arrived 09/24/2024 4:00 PM EDT Office Visit Cardiology at [address] [address] Nathaniel Keita MD [facility] [place] [address] documented as of this encounter Visit Diagnoses Not on filedocumented in this encounter Care Teams Top Lifter Relationship Specialty Start Date End Date Alexander Adams MD [address] [place] [address] PCP - General 04/06/12 07/26/23 documented as of this encounter
--- OUTSIDE RECORDS SUMMARY | 2024-04-24 21:28 | XMS_ITS | Encounter Summary ---
Author Organization [facility] [place] [address] Care Team Providers Care Pump Mechanic Name Role Phone Alexander Adams MD Primary Care Provider [phone] Reason for Visit * Reason Onset Date Comments Medication Refill 05/08/2013 Encounter Details Date Type Department Care Team (Late st Contact Info) Description 05/08/2013 Refill [place] [address] Jaylin Salcido APRN Social History Tobacco Use [...] 11:30 AM EST Office Visit Cardiology at [address] [phone] Ruben Hartman, PA [facility] [place] [address] 04/26/2024 10:00 AM EST Hospital Encounter Non-Invasive Cardiology Lab [facility] [place] [address] Arrived 09/24/2024 4:00 PM EDT Office Visit Cardiology at [address] [place] [address] Nathaniel Keita MD [facility] [place] [address] documented as of this encounter Visit Diagnoses Not on filedocumented in this encounter Care Teams Pump Mechanic Relationship Specialty Start Date End Date Alexander Adams MD [address] [place] [address] PCP - General 04/06/12 07/26/23 documented as of this encounter
--- OUTSIDE RECORDS SUMMARY | 2024-04-24 21:28 | XMS_ITS | Encounter Summary ---
Author Organization [facility] [place] [address] Care Team Providers Care Storeperson Name Role Phone Alexander Adams MD Primary Care Provider [phone] Reason for Visit * Reason Onset Date Comments Medication Refill 02/22/2013 Encounter Details Date Type Department Care Team (Late st Contact Info) Description 02/22/2013 Refill [place] [address] Elisha Nichols MD Social History Tobacco Use [...] AM EST Office Visit Cardiology at [address] [phone] Ruben Hartman, PA [facility] [place] [address] 04/26/2024 10:00 AM EST Hospital Encounter Non-Invasive Cardiology Lab [facility] [place] [address] Arrived 09/24/2024 4:00 PM EDT Office Visit Cardiology at [address] [place] [phone] Nathaniel Keita MD [facility] [place] [address] documented as of this encounter Visit Diagnoses Not on filedocumented in this encounter Care Teams Storeperson Relationship Specialty Start Date End Date Alexander Adams MD [address] [place] [address] PCP - General 04/06/12 07/26/23 documented as of this encounter
--- OUTSIDE RECORDS SUMMARY | 2024-04-24 21:28 | XMS_ITS | Encounter Summary ---
[place] [address] Care Team Providers Care Autocad Name Role Phone Alexander Adams MD Primary Care Provider [phone] Reason for Visit * Reason Comments Diabetes Encounter Details Date Type Department Care Team (Late st Contact Info) Description 11/13/2013 9:30 AM EDT Office [place] [phone] Jaylin Salcido APRN DM (diabetes mellitus) (Primary Dx); Type I [...] since she had spinal fusion done at [facility]. She states she is walking every morning and has very Little back pain now. DIABETES REGIMEN: MiniMed insulin pump. Basal rates 12 a.m. 1.1, 4 a.m. 1.15, 7 a.m. 1.3, 12 noon 1.2, 5 p.m. 1.2, and 10 p.m. 1.1. Total basal 28.55. [id number] 1 to 15. Correction factor 25. Target glucose 95 to 125. COMPLICATIONS: Retinopathy treated in the past, neuropathy, and Charcot foot changes. PAST MEDICAL HISTORY: Significant for bypass, had ICD placed, history of cardiac arrest. REVIEW OF SYSTEMS: Depression and Mood: At home is her supportive . He walks with her in the mornings. 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 Eyes: No recent vision changes. No recent headaches or chest pain or shortness of breath. No recent GI symptoms. Appetite is good. Sleep pattern is better since surgery. Extremities: Has no feeling in her feet. Has podiatry care with Dr. King in [place]. DATE OF DIAGNOSIS OF DIABETES: 1962. PHYSICAL [...] office visit with 34 minutes spent counseling [id number] with the patient in the management of [...] 11:30 AM EST Office Visit Cardiology at [address] [address] Ruben Hartman PA [facility] [place] [address] 04/26/2024 10:00 AM EST Hospital Encounter Non-Invasive Cardiology Lab [facility] [place] [address] Arrived 09/24/2024 4:00 PM EDT Office Visit Cardiology at [address] [address] Nathaniel Keita MD [facility] [address] [place] [id number] documented as of this encounter Results * Microalbumin, urine, random (02/14/2014 9:44 AM EST) Creatinine, Urine 196 mg/dL CE RNER MILLENNIUM Albumin, Urine 20.3 mg/L CERNE R MILLENNIUM Albumin / Creatinin Ratio, Urine 10 mcg/mg Cr [facility] Comment: Reference Range* Random collection (mcg/mg creatinine) Normal ?<30 Microalbuminuria ?? 30 - 300 Clinical Albuminuria ?? >300 *[place] Diabetes Association. Diabetic Nephropathy. Diabetes Care 1997;(Suppl 1):S24-S27 Exercise within 24 hour, infection, fever, CHF, marked hyperglycemia, and marked hypertension may elevate urinary albumin excretion over baseline values. Urine specimen (specimen) 02/14/2014 9:44 AM EST 02/14/2014 9:51 AM EST Narrative Resulting Agency Comment Spec In Lab Chris Chatman MD URINE ORDERABLES [facility] * LDL Cholesterol, Direct (02/14/2014 9:38 AM EST) LDL Cholesterol, Direct 89 <=99 mg/dL [facility] Comment: The National Cholesterol Education Program (NCEP) has set the following guidelines for LDL Cholesterol: Reference range: ?? Optimal: ?<100 mg/dL ?? Near Optimal/Above Optimal: ?? 100-129 mg/dL ?? Borderline high: ?130-159 mg/dL ?? High: ? 160-189 mg/dL ?? Very high: ?>qk=403 mg/dL REJI 2001: 285(19):1112-4842 Blood specimen (specimen) 02/14/2014 9:38 AM EST 02/14/2014 9:51 AM EST Narrative Resulting Agency Comment Spec In Lab Chris Chatman MD CHEMISTRY ORDERABLES Performing Organization Address [facility]/ZIP Co de Phone Number [facility] * (ABNORMAL) HDL/Cholesterol Profile (02/14/2014 9:38 AM EST) Cholesterol, Total 146 <=199 mg/dL [facility] MILLENNIUM Comment: Recommendations of the NCEP Adult Treatment Panel for the following risk cutoff thresholds for the [place] population: Desirable: <200 mg/dL Borderline High: 200-239 mg/dL High: > or = 240 mg/dL HDL Cholesterol 39(L) >=40 mg/dL [facility]ER N[facility] MILLENNIUM Comment: Reference range: ??Low HDL: ?? < 40 mg/dL ??Normal: ?40-60 mg/dL ??Desirable: > 60 mg/dL REJI 2001; 285(19):5259-9569 Cholesterol/HDL Ratio 3.7 ratio [facility] MILLENNIUM Comment: A Cholesterol to HDL ratio below 4:1 is desirable. ??Studies suggest that increased CAD risk occurs at ratios above 5 for females and above 6 for men. ? [place] Heart Association ??(http://www.americanheart.org) ? Aurelia Int Med, 1994; 121:641 ? AM J Med, 1998; 105(1A):48S Blood specimen (specimen) 02/14/2014 9:38 AM EST 02/14/2014 9:51 AM EST Narrative Resulting Agency Comment Spec In Lab Chris Chatman MD CHEMISTRY ORDERABLES [facility] * (ABNORMAL) Hemoglobin A1c (02/14/2014 9:38 AM EST) Hemoglobin A1c 8.6(H) <=5.6 % CERROSALINDA R MILLENNIUM Comment: Reference Range: 4.3 - 5.6% 5.7 [...] Mellitus, Diabetes Care 2013; 36: Suppl. 1, S67-85 Estimated Average Glucose 200 mg/dL [facility] Comment: eAG equivalents for HbA1c percentages: HbA1c(%) ?eAG(mg/dL) 6.0 ?126 6.5 ?140 7.0 ?154 7.5 ?169 8.0 ?183 8.5 ?197 9.0 ?212 9.5 ?226 10.0 ? 240 Limitations: The eAG calculation has not been validated on women, individuals below 18 years old and above 70 years old, and individuals with hemoglobinopathies. Additional resources are available on the ADA website: http://Kazaanal.com/DHMCadacalc Alfred JEFFRIES, Risa Chavez, Sergio R, et al. ??Translating the A1C assay into estimated average glucose values. ??Diabetes Care 2008:31(8):1848-9927. Blood specimen (specimen) 02/14/2014 9:38 AM EST 02/14/2014 9:51 AM EST Narrative Resulting Agency Comment Spec In Lab Chris Chatman MD CHEMISTRY ORDERABLES [facility] * (ABNORMAL) Comprehensive metabolic panel (non-fasting) (02/14/2014 9:38 AM EST) [facility] Glucose 183 60 - 199 mg/dL CERNER MILLENNIUM Comment:Diabetes: >=200 mg/d L plus symptoms Blood Urea Nitrogen 22(H) 8 - 18 mg/dL [facility]ERNER MILLENNIUM Creatinine 1.05 0.70 - 1.20 mg/dL CERNER MILLENNIUM Comment: Please note that the pediatric reference intervals supplied above were not validated at [facility]. Results from pediatric patients should be interpreted [...] the following links into your internet browser. [email or web address] Blood specimen (specimen) 02/14/2014 9:38 AM EST 02/14/2014 9:51 AM EST Narrative Resulting Agency Comment Spec In Lab Chris Chatman MD CHEMISTRY ORDERABLES Performing Organization Address City/State/[facility] Co pa Phone Number [facility] documented in this encounter Visit Diagnoses Diagnosis DM (diabetes mellitus)- Primary Type II or unspecified type diabetes mellitus without mention of complication, not stated as uncontrolled Type I (juvenile type) diabetes mellitus with neurological manifestations, not stated as uncontrolled(250.61) Type I (juvenile type) diabetes mellitus with neurological manifestations, not stated as uncontrolled documented in this encounter Care Teams Autocad Relationship Specialty Start Date End Date Alexander Adams MD [address] [place] [address] PCP - General 04/06/12 07/26/23 documented as of this encounter
--- OUTSIDE RECORDS SUMMARY | 2024-04-24 21:28 | XMS_ITS | Encounter Summary ---
Author Organization [facility] [place] [address] Care Team Providers Care Drying Unit Felting Machine Operator Name Role Phone Alexander Adams MD Primary Care Provider [phone] Reason for Visit * Reason Onset Date Comments Medication Refill 01/23/2014 Encounter Details Date Type Department Care Team (Late st Contact Info) Description 01/23/2014 Refill [place] [address] Jaylin Salcido APRN Social History Tobacco Use [...] AM EST Office Visit Cardiology at [address] [phone] Ruben Hartman, PA [facility] [place] [address] 04/26/2024 10:00 AM EST Hospital Encounter Non-Invasive Cardiology Lab [facility] [place] [address] Arrived 09/24/2024 4:00 PM EDT Office Visit Cardiology at [address] [place] [address] Nathaniel Keita MD [facility] [place] [address] documented as of this encounter Visit Diagnoses Not on filedocumented in this encounter Care Teams Drying Unit Felting Machine Operator Relationship Specialty Start Date End Date Alexander Adams MD [address] [place] [address] PCP - General 04/06/12 07/26/23 documented as of this encounter
--- OUTSIDE RECORDS SUMMARY | 2024-04-24 21:28 | XMS_ITS | Encounter Summary ---
[place] [address] Care Team Providers Care Transformer Maker Name Role Phone Alexander Adams MD Primary Care Provider [phone] Encounter Details Date Type Department Care Team (Late st Contact Info) Description 06/06/2013 Notes [place] [phone] Ruthy Moody LPN Social History Tobacco Use [...] 11:30 AM EST Office Visit Cardiology at [address] [place] [address] Ruben Hartman, [facility] [place] [address] 04/26/2024 10:00 AM EST Hospital Encounter Non-[place] [address] Arrived 09/24/2024 4:00 PM EDT Office Visit Cardiology at [address] [place] [phone] Nathaniel Keita MD [facility] [place] [address] documented as of this encounter Visit Diagnoses Not on filedocumented in this encounter Care Teams Transformer Maker Relationship Specialty Start Date End Date Alexander Adams MD [address] [place] [address] PCP - General 04/06/12 07/26/23 documented as of this encounter
--- OUTSIDE RECORDS SUMMARY | 2024-04-24 21:28 | XMS_ITS | Encounter Summary ---
[place] [address] Care Team Providers Care Leather Lacer Name Role Phone Alexander Adams MD Primary Care Provider [phone] Encounter Details Date Type Department Care Team (Late st Contact Info) Description 06/18/2013 Telephone [place] [phone] Stella Hernandez LPN Social History Tobacco Use [...] 10:30 AM EDT Rx request received from [facility] Called patient [facility] will supply pump supplies. [facility] will be supplier for testing supplies for now. documented in this encounter Plan of Treatment Upcoming Encounters Date Type Department Care Team (Late st Contact Info) Description 04/25/2024 11:30 AM EST Office Visit Cardiology at [address] [phone] Ruben Hartman PA [facility] [place] [address] 04/26/2024 10:00 AM EST Hospital Encounter [place] [address] Arrived 09/24/2024 4:00 PM EDT Office Visit Cardiology at [address] [phone] Nathaniel Keita MD [facility] [place] [address] documented as of this encounter Visit Diagnoses Not on filedocumented in this encounter Care Teams Leather Lacer Relationship Specialty Start Date End Date Alexander Adams MD [address] [place] [address] PCP - General 04/06/12 07/26/23 documented as of this encounter
--- OUTSIDE RECORDS SUMMARY | 2024-04-24 21:28 | XMS_ITS | Encounter Summary ---
[place] [address] Care Team Providers Care Manager Branch Name Role Phone Alexander Adams MD Primary Care Provider [phone] Encounter Details Date Type Department Care Team (Late st Contact Info) Description 03/05/2013 Telephone [place] [phone] Stella Hernandez LPN Social History Tobacco Use [...] encounter Miscellaneous Notes * Telephone Encounter - Setlla Hernandez LPN - 03/05/2013 3:28 PM EST C-peptide,FBG and last office note faxed to [email or web address]. Confirmation on fax received. documented in this encounter Plan of Treatment Upcoming Encounters Date Type Department Care Team (Late st Contact Info) Description 04/25/2024 11:30 AM EST Office Visit Cardiology at [address] [address] Rbuen Hartman PA [facility] [place] [address] 04/26/2024 10:00 AM EST Hospital Encounter Non-Invasive Cardiology Lab [facility] [place] [address] Arrived 09/24/2024 4:00 PM EDT Office Visit Cardiology at [address] [phone] Nathaniel Keita MD [facility] [place] [address] documented as of this encounter Visit Diagnoses Not on filedocumented in this encounter Care Teams Manager Branch Relationship Specialty Start Date End Date Alexander Adams MD [address] [place] [address] PCP - General 04/06/12 07/26/23 documented as of this encounter
--- OUTSIDE RECORDS SUMMARY | 2024-04-24 21:28 | XMS_ITS | Encounter Summary ---
[place] [address] Care Team Providers Care Aluminum Molder Name Role Phone Alexander Adams MD Primary Care Provider [phone] Reason for Visit * Reason Comments PDR 14 months FU PDR OU post PRP OU. Encounter Details Date Type Department Care Team (Late st Contact Info) Description 03/21/2013 3:30 PM EST Follow-[place] [address] Melissa Cleary MD PDR (proliferative diabetic retinopathy) [...] 11:30 AM EST Office Visit Cardiology at [address] [phone] Ruben Hartman PA [facility] [place] [address] 04/26/2024 10:00 AM EST Hospital Encounter Non-Invasive Cardiology Lab [facility] [place] [address] Arrived 09/24/2024 4:00 PM EDT Office Visit Cardiology at [address] [address] Nathaniel Keita MD [facility] [place] [address] documented as of this encounter Visit Diagnoses Diagnosis PDR (proliferative diabetic retinopathy)- Primary Type II or unspecified type diabetes mellitus with ophthalmic manifestations, not stated as uncontrolled documented in this encounter Care Teams Aluminum Molder Relationship Specialty Start Date End Date Alexander Adams MD [address] [place] [address] PCP - General 04/06/12 07/26/23 documented as of this encounter
--- OUTSIDE RECORDS SUMMARY | 2024-04-24 21:28 | XMS_ITS | Encounter Summary ---
[place] [address] Care Team Providers Care Library Supervisor Name Role Phone Alexander Adams MD Primary Care Provider [phone] Reason for Visit * Reason Comments Diabetes Encounter Details Date Type Department Care Team (Late st Contact Info) Description 02/14/2014 9:30 AM EST Office [place] [phone] Jaylin Salcido APRN Type I (juvenile type) [...] has extensive cardiac history. Followed closely by flanging operator. History of cardiac arrest in 2009. Prevention strategies are up-to-date. She plans to get a flu vaccine tomorrow at PCP office. REVIEW OF SYSTEMS: Depression and Mood: Overall, is doing very well. 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 Eyes: No recent [...] has podiatry care with Dr. King in [place]. Hemoglobin A1c 8.6%, previous was 7.8%. IMPRESSION [...] AM EST Office Visit Cardiology at [address] [address] Ruben Hartman PA [facility] [place] [address] 04/26/2024 10:00 AM EST Hospital Encounter [place] [address] Arrived 09/24/2024 4:00 PM EDT Office Visit Cardiology at [address] [address] Nathaniel Keita MD [facility] [place] [address] documented as of this encounter Procedures Procedure [...] Stimulating Hormone 0.66 0.27 - 4.20 mcIU/mL [facility] Blood specimen (specimen) 08/15/2014 12:55 PM EDT 08/15/2014 1:04 PM EDT Narrative Resulting Agency Comment Spec In Lab Chris Chatman MD CHEMISTRY ORDERABLES [facility] * (ABNORMAL) Hemoglobin A1c (08/15/2014 12:55 PM EDT) Hemoglobin A1c 7.6(H) 4.3 - 5.6 % [facility] Comment: Reference Range: 4.3 - 5.6% 5.7 [...] Mellitus, Diabetes Care 2013; 36: Suppl. 1, G88-79 Estimated Average Glucose 171 mg/dL [facility] Comment: eAG equivalents for HbA1c percentages: HbA1c(%) ?eAG(mg/dL) 6.0 ?126 6.5 ?140 7.0 ?154 7.5 ?169 8.0 ?183 8.5 ?197 9.0 ?212 9.5 ?226 10.0 ? 240 Limitations: The eAG calculation has not been validated on women, individuals below 18 years old and above 70 years old, and individuals with hemoglobinopathies. Additional resources are available on the ADA website: [email or web address] [email or web address].[email or web address]/[email or web address] Alfred JEFFRIES, Risa J, Sergio R, et al. ??Translating the A1C assay into estimated average glucose values. ??Diabetes Care 2008:31(8):8928-3526. Blood specimen (specimen) 08/15/2014 12:55 PM EDT 08/15/2014 1:04 PM EDT Narrative Resulting Agency Comment Spec In Lab Chris Chatman MD CHEMISTRY ORDERABLES [facility] * Microalbumin, urine, random (02/14/2014 9:44 AM EST) Creatinine, Urine 196 mg/dL CE RNER MILLENNIUM Albumin, Urine 20.3 mg/L CERNE R MILLENNIUM Albumin / Creatinin Ratio, Urine 10 mcg/mg Cr [facility] Comment: Reference Range* Random collection (mcg/mg creatinine) Normal ?<30 Microalbuminuria ?? 30 - 300 Clinical Albuminuria ?? >300 *[place] Diabetes Association. Diabetic Nephropathy. Diabetes Care 1997;(Suppl 1):S24-S27 Exercise within 24 hour, infection, fever, CHF, marked hyperglycemia, and marked hypertension may elevate urinary albumin excretion over baseline values. Urine specimen (specimen) 02/14/2014 9:44 AM EST 02/14/2014 9:51 AM EST Narrative Resulting Agency Comment Spec In Lab Chris Chatman MD URINE ORDERABLES Performing Organization Address [facility] de Phone Number [facility] * LDL Cholesterol, Direct (02/14/2014 9:38 AM EST) LDL Cholesterol, Direct 89 <=99 mg/dL [facility] Comment: The National Cholesterol Education Program (NCEP) has set the following guidelines for LDL Cholesterol: Reference range: ?? Optimal: ?<100 mg/dL ?? Near Optimal/Above Optimal: ?? 100-129 mg/dL ?? Borderline high: ?130-159 mg/dL ?? High: ? 160-189 mg/dL ?? Very high: ?>xa=377 mg/dL REJI 2001: 28519):[id number] Blood specimen (specimen) 02/14/2014 9:38 AM EST 02/14/2014 9:51 AM EST Narrative Resulting Agency Comment Spec In Lab Chris Chatman MD CHEMISTRY ORDERABLES Performing Organization Address [facility] de Phone Number [facility] * (ABNORMAL) HDL/Cholesterol Profile (02/14/2014 9:38 AM EST) Cholesterol, Total 146 <=199 mg/dL [facility] Comment: Recommendations of the NCEP Adult Treatment Panel for the following risk cutoff thresholds for the [place] population: Desirable: <200 mg/dL Borderline High: 200-239 mg/dL High: > or = 240 mg/dL HDL Cholesterol 39(L) >=40 mg/dL [facility] Comment: Reference range: ??Low HDL: ?? < 40 mg/dL ??Normal: ?40-60 mg/dL ??Desirable: > 60 mg/dL REJI 2001; 285(19):3819-1128 Cholesterol/HDL Ratio 3.7 ratio [facility] Comment: A Cholesterol to HDL ratio below 4:1 is desirable. ??Studies suggest that increased CAD risk occurs at ratios above 5 for females and above 6 for men. ? [place] Heart Association ??(http://www.americanheart.org) ? Aurelia Int Med, 1994; 121:641 ? AM J Med, 1998; 105(1A):48S Blood specimen (specimen) 02/14/2014 9:38 AM EST 02/14/2014 9:51 AM EST Narrative Resulting Agency Comment Spec In Lab Chris Chatman MD CHEMISTRY ORDERABLES [facility] * (ABNORMAL) Hemoglobin A1c (02/14/2014 9:38 AM [...] S67-74 Estimated Average Glucose 200 mg/dL [facility] Comment: eAG equivalents for HbA1c percentages: HbA1c(%) ?eAG(mg/dL) 6.0 ?126 6.5 ?140 7.0 ?154 7.5 ?169 8.0 ?183 8.5 ?197 9.0 ?212 9.5 ?226 10.0 ? 240 Limitations: The eAG calculation has not been validated on women, individuals below 18 years old and above 70 years old, and individuals with hemoglobinopathies. Additional resources are available on the ADA website: http://Contour Innovations.com/[facility] CITY[facility]alc Alfred JEFFRIES, Risa J, Sergio R, et al. ??Translating the A1C assay into estimated average glucose values. ??Diabetes Care 2008:31(8):7065-0883. Blood specimen (specimen) 02/14/2014 9:38 AM EST 02/14/2014 9:51 AM EST Narrative Resulting Agency Comment Spec In Lab Chris Chatman MD CHEMISTRY ORDERABLES [facility] * (ABNORMAL) Comprehensive metabolic panel (non-fasting) (02/14/2014 9:38 AM EST) [facility] Glucose 183 60 - 199 mg/dL [facility] Comment:Diabetes: >=200 mg/d L plus symptoms Blood Urea Nitrogen 22(H) 8 - 18 mg/dL [facility] MILLENNI[facility] Creatinine 1.05 0.70 - 1.20 mg/dL [facility] Comment: Please note that the pediatric reference intervals supplied above were not validated at [facility]. Results from pediatric patients should be [...] the following links into your internet browser. [email or web address] Blood specimen (specimen) 02/14/2014 9:38 AM EST 02/14/2014 9:51 AM EST Narrative Resulting Agency Comment Spec In Lab Chris Chatman MD CHEMISTRY ORDERABLES [facility] MILLENNIUM documented in this encounter Visit Diagnoses Diagnosis Type I (juvenile type) diabetes mellitus with neurological manifestations, not stated as uncontrolled(250.61) Type I (juvenile type) diabetes mellitus with neurological manifestations, not stated as uncontrolled documented in this encounter Care Teams Library Supervisor Relationship Specialty Start Date End Date Alexander Adams MD [address] [place] [address] PCP - General 04/06/12 07/26/23 documented as of this encounter
--- OUTSIDE RECORDS SUMMARY | 2024-04-24 21:28 | XMS_ITS | Encounter Summary ---
Author Organization [facility] [place] [address] Care Team Providers Care Mixer Helper Name Role Phone Alexander Adams MD Primary Care Provider [phone] Reason for Visit * Reason Onset Date Comments Medication Refill 12/20/2013 Encounter Details Date Type Department Care Team (Late st Contact Info) Description 12/20/2013 Refill [place] [address] Jaylin Salcido APRN Social History Tobacco Use [...] AM EST Office Visit Cardiology at [address] [phone] Ruben Hartman, PA [facility] [place] [place] [address] 04/26/2024 10:00 AM EST Hospital Encounter Non-Invasive Cardiology Lab [place] [address] Arrived 09/24/2024 4:00 PM EDT Office Visit Cardiology at [address] [place] [address] Nathaniel Keita MD [facility] [place] [address] documented as of this encounter Visit Diagnoses Not on filedocumented in this encounter Care Teams Mixer Helper Relationship Specialty Start Date End Date Alexander Adams MD [address] [place] [address] PCP - General 04/06/12 07/26/23 documented as of this encounter
--- OUTSIDE RECORDS SUMMARY | 2024-04-24 21:28 | XMS_ITS | Encounter Summary ---
Author Organization [facility] [place] [address] Care Team Providers Care Pushcart Peddler Name Role Phone Alexander Adams MD Primary Care Provider [phone] Reason for Visit * Reason Onset Date Comments Medication Refill 07/29/2014 Encounter Details Date Type Department Care Team (Late st Contact Info) Description 07/29/2014 Refill [place] [address] Jaylin Salcido APRN Social History Tobacco Use [...] AM EST Office Visit Cardiology at [address] [phone] Ruben Hartman, PA [facility] [place] [address] 04/26/2024 10:00 AM EST Hospital Encounter Non-Invasive Cardiology Lab [facility] [place] [address] Arrived 09/24/2024 4:00 PM EDT Office Visit Cardiology at [address] [place] [address] Nathaniel Keita MD [facility] [place] [address] documented as of this encounter Visit Diagnoses Not on filedocumented in this encounter Care Teams Pushcart Peddler Relationship Specialty Start Date End Date Alexander Adams MD [address] [place] [address] PCP - General 04/06/12 07/26/23 documented as of this encounter
--- OUTSIDE RECORDS SUMMARY | 2024-04-24 21:28 | XMS_ITS | Encounter Summary ---
Author Organization [facility] [place] [address] Care Team Providers Care Survey Research Professor Name Role Phone Alexander Adams MD Primary Care Provider [phone] Reason for Visit * Reason Comments Medication Refill Encounter Details Date Type Department Care Team (Late st Contact Info) Description 11/04/2012 Refill [place] [phone] Jaylin Salcido APRN DM (diabetes mellitus) (Primary Dx) Social History [...] AM EST Office Visit Cardiology at [address] [phone] Ruben Hartman, [facility]URA [facility] [place] [address] 04/26/2024 10:00 AM EST Hospital Encounter Non-Invasive Cardiology Lab [place] [address] Arrived 09/24/2024 4:00 PM EDT Office Visit Cardiology at [address] [place] [phone] Nathaniel Keita MD [facility] [place] [address] documented as of this encounter Visit Diagnoses Diagnosis DM (diabetes mellitus)- Primary Type II or unspecified type diabetes mellitus without mention of complication, not stated as uncontrolled documented in this encounter Care Teams Survey Research Professor Relationship Specialty Start Date End Date Alexander Adams MD [address] [place] [address] PCP - General 04/06/12 07/26/23 documented as of this encounter
--- OUTSIDE RECORDS SUMMARY | 2024-04-24 21:28 | XMS_ITS | Encounter Summary ---
[place] [address] Care Team Providers Care Medical Social Worker Name Role Phone Alexander Adams MD Primary Care Provider Encounter Details Date Type Department Care Team (Late st Contact Info) Description 06/08/2013 External Results Cardiology at [address] [phone] Neva Pugh MD [address] [place] [address] Social History Tobacco Use Types Packs/Day Years [...] AM EST Office Visit Cardiology at [address] [place] [address] Ruben Hartman, PA [facility] [place] [address] 04/26/2024 10:00 AM EST Hospital Encounter Non-Invasive Cardiology Lab [facility] [place] [place] [address] Arrived 09/24/2024 4:00 PM EDT Office Visit Cardiology at [address] [place] [phone] Nathaniel Keita MD [facility] [place] [address] documented as of this encounter Procedures Procedure Name Priority Date/Time Associated Diagnosis Comments EP DEVICE SCAN Routine 04/17/2013 documented in this encounter Results * Scan Doc: EP Device (04/17/2013) Anatomical Region Laterality Modality Other Neva Pugh MD MEDIA MGR SCAN EXT O RDR/RSLT documented in this encounter Visit Diagnoses Not on filedocumented in this encounter Care Teams Medical Social Worker Relationship Specialty Start Date End Date Alexander Adams MD [address] [place] [address] PCP - General 04/06/12 07/26/23 documented as of this encounter
--- OUTSIDE RECORDS SUMMARY | 2024-04-24 21:28 | XMS_ITS | Encounter Summary ---
[place] [address] Care Team Providers Care Leather Leveler Name Role Phone Alexander Adams MD Primary Care Provider [phone] Encounter Details Date Type Department Care Team (Latest Contact Info) Description 09/14/2013 10:00 AM EDT Clinical Support Cardiology at [address] [phone] Adrian Shrestha, MACHINE FEEDER FLOORPERSON [facility] [place] [address] Ventricular fibrillation Social History Tobacco Use Types [...] in SLS study. PCP: ALEXANDER ADAMS MD Commercial Housekeeper: Milind Beasley MD Device and lead information Final Parameters: Ventricular lead: Medtronic Sprint Quattro Model# 6947-58 cm Serial #[id number] Bipolar, steroid-tipped, active-fixation IS-1, DF-1 lead Access: Left axillary vein Location: Right ventricular apex R wave, ICD: 8.0 mV Pacing threshold, ICD: 1.0 V at 0.5 ms Impedance, ICD: 532 ohms HVB Impedance 33 ohms SVC Impedance 39 ohms Pace the diaphragm at 10 V: No Pulse generator: [employer] John II VR Model# [id number] Serial# [id number] Single-chamber ICD Location: Subcutaneous Parameters: VF detection rate: >200 bpm VF therapy: ATP during charging, 30J, 35J x 5 FVT detection rate: via VF 250 bpm FVT therapy: Burst(1), 30J, 35J x 4 VT detection rate:182 bpm VT therapy: Burst(3), 20J, 35J x 4 Enhancement: Wavelet, VT Monitor Bradycardia pacing: VVI 40 Follow-up Battery status: 3.10 V POUNCER MACHINE: 2.63 V Charge time: 8.7 sec 07/02/2009 [...] 6 mos device clinic Adrian Shrestha, MSN, MACHINE FEEDER FLOORPERSON, CCDS documented in this encounter Plan of Treatment Upcoming Encounters Date Type Department Care Team (Late st Contact Info) Description 04/25/2024 11:30 AM EST Office Visit Cardiology at [address] [address] Ruben Hartman PA [facility] [place] [address] 04/26/2024 10:00 AM EST Hospital Encounter [place] [address] Arrived 09/24/2024 4:00 PM EDT Office Visit Cardiology at [address] [address] Nathaniel Keita MD [facility] [place] [address] documented as of this encounter Visit Diagnoses Diagnosis Ventricular fibrillation documented in this encounter Care Teams Leather Leveler Relationship Specialty Start Date End Date Alexander Adams MD [address] [place] [address] PCP - General 04/06/12 07/26/23 documented as of this encounter
--- OUTSIDE RECORDS SUMMARY | 2024-04-24 21:28 | XMS_ITS | Encounter Summary ---
[place] [address] Care Team Providers Care Marine Gear Keeper Name Role Phone Alexnader Adams MD Primary Care Provider [phone] Reason for Visit * Reason Onset Date Comments Medication Refill 05/20/2014 Encounter Details Date Type Department Care Team (Late st Contact Info) Description 05/20/2014 Refill [place] [phone] Jaylin Salcido, PERLA Social History Tobacco Use Types Packs/Day Years [...] PM EST Received faxed in request from [employer] for metoprolol for liane documented in this encounter Plan of Treatment Upcoming Encounters Date Type Department Care Team (Late st Contact Info) Description 04/25/2024 11:30 AM EST Office Visit Cardiology at [address] [place] [phone] Ruben Hartman PA [facility] [place] [address] 04/26/2024 10:00 AM EST Hospital Encounter Non-[place]vasive [place] [address] Arrived 09/24/2024 4:00 PM EDT Office Visit Cardiology at [address] [place] [phone] Nahtaniel Keita MD [facility] [place] [address] documented as of this encounter Visit Diagnoses Not on filedocumented in this encounter Care Teams Marine Gear Keeper Relationship Specialty Start Date End Date Alexander Adams MD [address] [place] [address] PCP - General 04/06/12 07/26/23 documented as of this encounter
--- OUTSIDE RECORDS SUMMARY | 2024-04-24 21:28 | XMS_ITS | Encounter Summary ---
[place] [address] Care Team Providers Care Foundry Hand Name Role Phone Alexander Adams MD Primary Care Provider [phone] Reason for Visit * Reason Comments Blurred Vision DOC visit, 2 day h/o foggy vision OS Encounter Details Date Type Department Care Team (Latest Contact Info) Description 07/31/2014 3:15 PM EDT Office [place] [address] Celena Briceño MD [facility] [place] [address] Diabetic retinopathy of left eye, due to [...] leaving in 2 days for 2weeks to [place]. Patient to seek local care if sudden change in vision. Celena Briceño MD documented in this encounter Plan of Treatment Upcoming Encounters Date Type Department Care Team (Late st Contact Info) Description 04/25/2024 11:30 AM EST Office Visit Cardiology at [address] [address] Ruben Hartman PA [facility] [place] [address] 04/26/2024 10:00 AM EST Hospital Encounter Non-Invasive [place] [address] Arrived 09/24/2024 4:00 PM EDT Office Visit Cardiology at [address] [address] Nathaniel Keita MD [facility] [place] [address] documented as of this encounter Procedures Procedure Name Priority Date/Time Associated Diagnosis Comments OCT RETINA - OS - LEFT EYE Routine 07/31/2014 5:43 PM EDT Diabetic retinopathy of left eye, due to underlying condition, without macular edema, with proliferative retinopathy Vitreous hemorrhage of left eye Posterior vitreous detachment of left eye documented in this encounter Results * OCT [id number]-[id number] EYE (07/31/2014 5:43 PM EDT) Anatomical Region [...] degeneration documented in this encounter Care Teams Foundry Hand Relationship Specialty Start Date End Date Alexander Adams MD [address] [place] [address] PCP - General 04/06/12 07/26/23 documented as of this encounter
--- OUTSIDE RECORDS SUMMARY | 2024-04-24 21:28 | XMS_ITS | Encounter Summary ---
[place] [address] Care Team Providers Care Dry Sander Name Role Phone Alexander Adams MD Primary Care Provider [phone] Reason for Visit * Reason Comments Cardiomyopathy ICD interrogation Encounter Details Date Type Department Care Team (Late st Contact Info) Description 01/11/2013 9:15 AM EDT Follow-Up Cardiology at [address] [address] Thaddeus Cespedes RN Sangha, Rajbir S, MD [facility] [place] [address] CHD, s/p arrest and 2v CABG in [...] in SLS study. PCP: ALEXANDER ADAMS MD Brand Marketing Coordinator: Milind Beasley MD Device and lead information Final Parameters: Ventricular lead: Medtronic Sprint Quattro Model# 6947-58 cm Serial #[id number] Bipolar, steroid-tipped, active-fixation IS-1, DF-1 lead Access: Left axillary vein Location: Right ventricular apex R wave, ICD: 8.0 mV Pacing threshold, ICD: 1.0 V at 0.5 ms Impedance, ICD: 532 ohms HVB Impedance 33 ohms SVC Impedance 39 ohms Pace the diaphragm at 10 V: No Pulse generator: Medtronic John II VR Model# [id number] Serial# [id number] Single-chamber ICD Location: Subcutaneous Parameters: VF detection rate: >200 bpm VF therapy: ATP during charging, 30J, 35J x 5 FVT detection rate: via VF 250 bpm FVT therapy: Burst(1), 30J, 35J x 4 VT detection rate:182 bpm VT therapy: Burst(3), 20J, 35J x 4 Enhancement: Wavelet, VT Monitor Bradycardia pacing: VVI 40 Follow-up Battery status: 3.10 V STRATEGY EXECUTION CONSULTANT: 2.63 V Charge time: 8.6 sec 01/01/2013 [...] AM EST Office Visit Cardiology at [address] [phone] Ruben Hartman PA [facility] [place] [address] 04/26/2024 10:00 AM EST Hospital Encounter [place] [address] Arrived 09/24/2024 4:00 PM EDT Office Visit Cardiology at [address] [phone] Nathaniel Keita MD [facility] [place] [address] documented as of this encounter Visit Diagnoses Diagnosis CHD, s/p arrest and 2v CABG in 2009, preserved LV function- Primary Coronary atherosclerosis of unspecified type of vessel, [place] or graft documented in this encounter Care Teams Dry Sander Relationship Specialty Start Date End Date Alexander Adams MD [address] [place] [address] PCP - General 04/06/12 07/26/23 documented as of this encounter
--- OUTSIDE RECORDS SUMMARY | 2024-04-24 21:28 | XMS_ITS | Encounter Summary ---
[place] [address] Care Team Providers Care Sales Development Representative Name Role Phone Alexander Adams MD Primary Care Provider [phone] Encounter Details Date Type Department Care Team (Late st Contact Info) Description 02/28/2013 [place] [address] Melissa Cleary MD Social History Tobacco Use [...] AM EST Office Visit Cardiology at [address] [phone] Ruben Hartman, LAURA [facility] [place] [address] 04/26/2024 10:00 AM EST Hospital Encounter Non-Invasive Cardiology Lab [facility] [place] [address] Arrived 09/24/2024 4:00 PM EDT Office Visit Cardiology at [address] [place] [address] Nathaniel Keita MD [facility] [place] [place] [address] documented as of this encounter Visit Diagnoses Not on filedocumented in this encounter Care Teams Sales Development Representative Relationship Specialty Start Date End Date Alexander Adams MD [address] [place] [address] PCP - General 04/06/12 07/26/23 documented as of this encounter
--- OUTSIDE RECORDS SUMMARY | 2024-04-24 21:28 | XMS_ITS | Encounter Summary ---
[place] [address] Care Team Providers Care Headlight Adjuster Name Role Phone Alexander Adams MD Primary Care Provider [phone] Reason for Visit * Reason Onset Date Comments Medication Refill 06/15/2013 Encounter Details Date Type Department Care Team (Late st Contact Info) Description 06/15/2013 Refill [place] [address] [facility] [place] [address] Social History Tobacco Use Types Packs/Day Years [...] AM EST Office Visit Cardiology at [address] [phone] Ruben Hartman, [facility]URA [facility] [place] [address] 04/26/2024 10:00 AM EST Hospital Encounter Non-Invasive Cardiology Lab [facility] [address] Arrived 09/24/2024 4:00 PM EDT Office Visit Cardiology at [address] [place] [address] [facility] [place] [address] documented as of this encounter Visit Diagnoses Not on filedocumented in this encounter Care Teams Headlight Adjuster Relationship Specialty Start Date End Date Alexander Adams MD [address] [place] [address] PCP - General 04/06/12 07/26/23 documented as of this encounter
--- OUTSIDE RECORDS SUMMARY | 2024-04-24 21:28 | XMS_ITS | Encounter Summary ---
[place] [address] Care Team Providers Care Cafe Worker Name Role Phone Alexander Adams MD Primary Care Provider [phone] Encounter Details Date Type Department Care Team (Latest Contact Info) Description 11/13/2013 9:23 AM EDT - 11/13/2013 11:59 PM EDT Hospital [place] [phone] Elisha Nichols MD Type 1 diabetes mellitus [...] mg by mouth daily. 07/27/2023 [facility], [facility] Fax form to [facility] Diabetes INSULIN PUMP SUPPLIES 100 [...] ULTRA 2) monitoring kit 1 each by [facility].(Non-Drug; Combo Route) route as needed for Other. Test BG 5-6 times daily. Diagnosis code 250.63 1 each 0 03/12/2013 03/31/2017 Lancets (ONE TOUCH ULTRASOFT LANCETS) [facility] 1 each by [facility].(Non-Drug; Combo Route) route 6 times [...] 40 mg by mouth daily. 11/28/2014 Insulin [place], Disposable, (BD INSULIN PEN NEEDLE UF SHORT) 31 X 5/16 Ndle by [facility].(Non-Drug; Combo Route) route. 03/31/2017 SUBCUTANEOUS INSULIN PUMP (INSULIN PUMP [id number] [facility]) by [facility].(Non-Drug; Combo Route) route. 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 Comment: Reference Range: 4.3 ? 5.6% 5.7 [...] 36: Suppl. 1, S67-74 Estimated Average Glucose 177 mg/dL [facility] Comment: eAG equivalents for HbA1c percentages: HbA1c(%) ?eAG(mg/dL) 6.0 ?126 6.5 ?140 7.0 ?154 7.5 ?169 8.0 ?183 8.5 ?197 9.0 ?212 9.5 ?226 10.0 ? 240 Limitations: The eAG calculation has not been validated on women, individuals below 18 years old and above 70 years old, and individuals with hemoglobinopathies. Additional resources are available on the ADA website: http://BrandCont.com/DHMCadacalc Alfred JEFFRIES, Risa J, Sergio R, et al. ??Translating the A1C assay into estimated average glucose values. ??Diabetes Care 2008:31(8):4761-2551. 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
--- OUTSIDE RECORDS SUMMARY | 2024-04-24 21:28 | XMS_ITS | Encounter Summary ---
[place] [address] Care Team Providers Care Staple Side Laster Name Role Phone Alexander Adams MD Primary Care Provider [phone] Reason for Visit * Reason Comments PDR 14 month F/U for PDR OU post PRP OU Encounter Details Date Type Department Care Team (Late st Contact Info) Description 05/29/2014 1:15 PM EST Follow-[place] [address] Melissa Cleary MD Diabetic retinopathy of left [...] AM EST Office Visit Cardiology at [address] [address] Ruben Hartman, PA [facility] [place] [address] 04/26/2024 10:00 AM EST Hospital Encounter Non-Invasive Cardiology Lab [place] [address] Arrived 09/24/2024 4:00 PM EDT Office Visit Cardiology at [address] [phone] Nathaniel Keita MD [facility] [place] [address] documented as of this encounter Visit Diagnoses Diagnosis Diabetic retinopathy of left eye, due to underlying condition, without macular edema, with proliferative retinopathy documented in this encounter Care Teams Staple Side Laster Relationship Specialty Start Date End Date Alexander Adams MD [address] [place] [address] PCP - General 04/06/12 07/26/23 documented as of this encounter
--- OUTSIDE RECORDS SUMMARY | 2024-04-24 21:28 | XMS_ITS | Encounter Summary ---
[place] [address] Care Team Providers Care Technology Integration Specialist Name Role Phone Alexander Adams MD Primary Care Provider [phone] Reason for Visit * Reason Comments Cardiomyopathy ICD check Follow-up Encounter Details Date Type Department Care Team (Late st Contact Info) Description 05/16/2014 9:00 AM EST Office Visit Cardiology at [address] [phone] Kellie Geronimo, SANDRA Ventricular fibrillation- with Medtronic [...] in SLS study. PCP: ALEXANDER ADAMS MD First Aid Trainer: Milind Beasley MD Device and lead information Final Parameters: Ventricular lead: [employer]tronic Sprint Quattro Model# 6947-58 cm Serial #[id number] ??? Bipolar, steroid-tipped, active-fixation IS-1, DF-1 lead ??? Access: Left axillary vein ??? Location: Right ventricular apex ??? R wave, ICD: 8.0 mV ??? Pacing threshold, ICD: 1.0 V at 0.5 ms ??? Impedance, ICD: 532 ohms ??? HVB Impedance 33 ohms ??? SVC Impedance 39 ohms ??? Pace the diaphragm at 10 V: No Pulse generator: Medtronic John II VR Model# [id number] Serial# [id number] ??? Single-chamber ICD ??? Location: Subcutaneous Parameters: VF detection rate: >200 bpm VF therapy: ATP during charging, 30J, 35J x 5 FVT detection rate: via VF 250 bpm FVT therapy: Burst(1), 30J, 35J x 4 VT detection rate:182 bpm VT therapy: Burst(3), 20J, 35J x 4 Enhancement: Wavelet, VT Monitor Bradycardia pacing: VVI 40 Follow-up Battery status: 3.08 V METALLURGY LABORATORY TECHNICIAN: 2.63 V Charge time: 8.8 sec 01/01/2014 [...] AM EST Office Visit Cardiology at [address] [address] Ruben Hartman, LAURA [facility] [place] [address] 04/26/2024 10:00 AM EST Hospital Encounter Non-[place] [address] Arrived 09/24/2024 4:00 PM EDT Office Visit Cardiology at [address] [address] Nathaniel Keita MD [facility] [place] [address] documented as of this encounter Visit Diagnoses Diagnosis Ventricular fibrillation- with Medtronic ICD implanted 2009 Ventricular fibrillation documented in this encounter Care Teams Technology Integration Specialist Relationship Specialty Start Date End Date Alexander Adams MD [address] [facility] [place] [address] PCP - General 04/06/12 07/26/23 documented as of this encounter
--- OUTSIDE RECORDS SUMMARY | 2024-04-24 21:28 | XMS_ITS | Encounter Summary ---
[place] [address] Care Team Providers Care Drama Critic Name Role Phone Alexander Adams MD Primary Care Provider [phone] Encounter Details Date Type Department Care Team (Late Contact Info) Description 06/15/2013 Telephone [place] [phone] Stella Hernandez LPN Social History Tobacco Use [...] Telephone Encounter - Stella Hernandez LPN - 06/15/2013 9:51 AM EDT Message on endo nurse line from patient that due to insurance change she will need to get insulin pump supplies form new supplier. [facility] will be faxing a request to our office documented in this encounter Plan of Treatment Upcoming Encounters Date Type Department Care Team (Late Contact Info) Description 04/25/2024 11:30 AM EST Office Visit Cardiology at [address] [place] [address] Ruben Hartman PA [facility] [place] [address] 04/26/2024 10:00 AM EST Hospital Encounter Non[place] [address] Arrived 09/24/2024 4:00 PM EDT Office Visit Cardiology at [address] [phone] Nathaniel Keita MD [facility] [place] [address] documented as of this encounter Visit Diagnoses Not on filedocumented in this encounter Care Teams Drama Critic Relationship Specialty Start Date End Date Alexander Adams MD [address] [place] [address] PCP - General 04/06/12 07/26/23 documented as of this encounter
--- OUTSIDE RECORDS SUMMARY | 2024-04-24 21:29 | XMS_ITS | Encounter Summary ---
[place] [address] Care Team Providers Care Channel Machine Operator Name Role Phone Alexander Adams MD Primary Care Provider [phone] Reason for Visit * Reason Comments Diabetes Encounter Details Date Type Department Care Team (Late st Contact Info) Description 10/09/2012 10:00 AM EDT Office [place] [phone] Jaylin Salcido APRN Type I (juvenile type) [...] for October [address] King in [place], [place]. DIABETES REGIMEN: NovoLog vial, MiniMed insulin pump 722. Basal Rates: 12 a.m., 1.2; 4 a.m., 1.15; 6 a.m., 1.2; 12 noon, 1.15; 5 p.m., 1.2; 10 p.m., 1.1. Total basal 28.25. Yvqcoic-kj-lbbz 1:10. Correction factor 25. 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 She states she will contact the scooter store to start the process. This was a 30-minute office visit with 29 minutes spent counseling [id number] with the patient in the management of [...] AM EST Office Visit Cardiology at [address] [address] Ruben Hartman, LAURA [facility] [place] [address] 04/26/2024 10:00 AM EST Hospital Encounter Non-Invasive Cardiology Lab [facility] [place] [address] Arrived 09/24/2024 4:00 PM EDT Office Visit Cardiology at [address] [place] [phone] Nathaniel Keita MD [facility] [place] [address] documented as of this encounter Results * HDL/Cholesterol Profile (01/11/2013 9:48 AM EDT) Cholesterol, Total 161 <=199 mg/dL [facility] Comment: Recommendations of the NCEP Adult Treatment Panel for the following risk cutoff thresholds for the [place] population: Desirable: <200 mg/dL Borderline High: 200-239 mg/dL High: > or = 240 mg/dL HDL Cholesterol 50 >=40 mg/dL [facility] Comment: Reference range: ??Low HDL: ?? < 40 mg/dL ??Normal: ?40-60 mg/dL ??Desirable: > 60 mg/dL REJI 2001; 285(19):3926-9467 Cholesterol/HDL Ratio 3.2 ratio [facility] Comment: A Cholesterol to HDL ratio below 4:1 is desirable. ??Studies suggest that increased CAD risk occurs at ratios above 5 for females and above 6 for men. ? [place] Heart Association ??(http://www.americanheart.org) ? Aurelia Int Med, 1994; 121:641 ? AM J Med, 1998; 105(1A):48S Blood specimen (specimen) 01/11/2013 9:48 AM EDT 01/11/2013 9:57 AM EDT Narrative Resulting Agency Comment Spec In Lab Chris Chatman MD CHEMISTRY ORDERABLES [facility] * LDL Cholesterol, Direct (01/11/2013 9:48 AM EDT) LDL Cholesterol, Direct 98 <=99 mg/dL [facility] Comment: The National Cholesterol Education Program (NCEP) has set the following guidelines for LDL Cholesterol: Reference range: ?? Optimal: ?<100 mg/dL ?? Near Optimal/Above Optimal: ?? 100-129 mg/dL ?? Borderline high: ?130-159 mg/dL ?? High: ? 160-189 mg/dL ?? Very high: ?>pv=144 mg/dL REJI 2001: 285(89):1741-9396 Blood specimen (specimen) 01/11/2013 9:48 AM EDT 01/11/2013 9:57 AM EDT Narrative Resulting Agency Comment Spec In Lab Chris Chatman MD CHEMISTRY ORDERABLES [facility] * (ABNORMAL) Hemoglobin A1c (01/11/2013 9:48 AM EDT) Hemoglobin A1c 8.1(H) 4.3 - 6.1 % [facility] Comment: The [place] Diabetes Association (ADA) has stated that HbA1c [...] 2013:36;suppl 1:S11-S66. Estimated Average Glucose 186 mg/dL [facility] Comment: eAG equivalents for HbA1c [...] into estimated average glucose values. ??Diabetes Care 2008:31(8):8377-4818. Blood specimen (specimen) 01/11/2013 9:48 AM EDT 01/11/2013 9:57 AM EDT Narrative Resulting Agency Comment Spec In Lab Chirs Chatman MD CHEMISTRY ORDERABLES [facility] * (ABNORMAL) Comprehensive metabolic panel (non-fasting) (01/11/2013 9:48 AM EDT) [facility] Glucose 315(H) 60 - 199 mg/dL [facility] Comment:Diabetes: >=200 mg/d L plus symptoms Blood Urea Nitrogen 21(H) 8 - 18 mg/dL [facility] MILLENNIUM Creatinine 1.17 0.70 - 1.20 mg/dL [facility] MILLENNIUM Comment: Please note that the pediatric reference intervals supplied above were not validated at [facility] [place]. 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
--- OUTSIDE RECORDS SUMMARY | 2024-04-24 21:29 | XMS_ITS | Encounter Summary ---
[place] [address] Care Team Providers Care Aba Therapist Name Role Phone Alexander Adams MD Primary Care Provider Encounter Details Date Type Department Care Team (Late st Contact Info) Description 04/25/2012 External Results Cardiology at [address] [phone] Neva Pugh MD [address] [place] [phone] Social History Tobacco Use Types Packs/Day Years [...] AM EST Office Visit Cardiology at [address] [place] [address] Ruben Hartman, PA [facility] [place] [address] 04/26/2024 10:00 AM EST Hospital Encounter Non-Invasive Cardiology Lab [facility] [place] [address] Arrived 09/24/2024 4:00 PM EDT Office Visit Cardiology at [address] [place] [phone] Nathaniel Keita MD [facility] [place] [address] documented as of this encounter Procedures Procedure Name Priority Date/Time Associated Diagnosis Comments EP DEVICE SCAN Routine 04/11/2012 documented in this encounter Results * Scan Doc: EP Device (04/11/2012) Anatomical Region Laterality Modality Other Neva Pugh MD MEDIA MGR SCAN EXT O RDR/RSLT documented in this encounter Visit Diagnoses Not on filedocumented in this encounter Care Teams Aba Therapist Relationship Specialty Start Date End Date Alexander Adams MD [address] [place] [address] PCP - General 04/06/12 07/26/23 documented as of this encounter
--- OUTSIDE RECORDS SUMMARY | 2024-04-24 21:29 | XMS_ITS | Encounter Summary ---
Author Organization [facility] [place] [address] Care Team Providers Care Truck Hop Name Role Phone Neva Pugh MD Primary Care Provider [phone] Reason for Visit * Reason Onset Date Comments Medication Refill 01/20/2012 Encounter Details Date Type Department Care Team (Late st Contact Info) Description 01/20/2012 Ref[place] [address] Elisha Nichols MD Social History Tobacco Use [...] AM EST Office Visit Cardiology at [address] [phone] Ruben Hartman, PA [facility] [place] [address] 04/26/2024 10:00 AM EST Hospital Encounter Non-Invasive Cardiology Lab [facility] [place] [address] Arrived 09/24/2024 4:00 PM EDT Office Visit Cardiology at [address] [place] [phone] Nathaniel Keita MD [facility] [place] [address] documented as of this encounter Visit Diagnoses Not on filedocumented in this encounter Care Teams Truck Hop Relationship Specialty Start Date End Date Neva Pugh MD [address] [place] [address] PCP - General 02/24/10 04/05/12 documented as of this encounter
--- OUTSIDE RECORDS SUMMARY | 2024-04-24 21:29 | XMS_ITS | Encounter Summary ---
Author Organization [facility] [place] [address] Care Team Providers Care Store Clerk Cashier Name Role Phone Neva Pugh MD Primary Care Provider [phone] Reason for Visit * Reason Comments Medication Refill Encounter Details Date Type Department Care Team (Late st Contact Info) Description 01/14/2012 Refill [place] [address] Elisha Nichols MD Social History Tobacco Use [...] AM EST Office Visit Cardiology at [address] [phone] Ruben Hartman, PA [facility] [place] [address] 04/26/2024 10:00 AM EST Hospital Encounter Non-Invasive Cardiology Lab [facility] [place] [address] Arrived 09/24/2024 4:00 PM EDT Office Visit Cardiology at [address] [place] [address] Nathaniel Keita MD [facility] [place] [address] documented as of this encounter Visit Diagnoses Not on filedocumented in this encounter Care Teams Store Clerk Cashier Relationship Specialty Start Date End Date Neva Pugh MD [address] [place] [address] PCP - General 02/24/10 04/05/12 documented as of this encounter
--- OUTSIDE RECORDS SUMMARY | 2024-04-24 21:29 | XMS_ITS | Encounter Summary ---
[place] [address] Care Team Providers Care Log Sorter Name Role Phone Alexander Adams MD Primary Care Provider [phone] Reason for Visit * Reason Comments Medication Refill Encounter Details Date Type Department Care Team (Late st Contact Info) Description 06/07/2012 [place] [phone] Elisha Nichols MD Social History Tobacco Use [...] 11:30 AM EST Office Visit Cardiology at [address] [phone] Ruben Hartman PA [facility] [place] [address] 04/26/2024 10:00 AM EST Hospital Encounter Non-[place] [address] Arrived 09/24/2024 4:00 PM EDT Office Visit Cardiology at [address] [phone] Nathaniel Keita MD [facility] [place] [address] documented as of this encounter Visit Diagnoses Not on filedocumented in this encounter Care Teams Log Sorter Relationship Specialty Start Date End Date Alexander Adams MD [address] [place] [address] PCP - General 04/06/12 07/26/23 documented as of this encounter
--- OUTSIDE RECORDS SUMMARY | 2024-04-24 21:29 | XMS_ITS | Encounter Summary ---
[place] [address] Care Team Providers Care Grades 6 Through 8 Teacher Name Role Phone Alexander Adams MD Primary Care Provider [phone] Reason for Visit * Reason Onset Date Comments Medication Refill 06/08/2012 Encounter Details Date Type Department Care Team (Late st Contact Info) Description 06/08/2012 Refill [place] [phone] Jaylin Salcido APRN Type II or unspecified type diabetes mellitus [...] 11:30 AM EST Office Visit Cardiology at [address] [phone] Ruben Hartman, PA [facility] [place] [address] 04/26/2024 10:00 AM EST Hospital Encounter Non-Invasive Cardiology Lab [facility] [place] [address] Arrived 09/24/2024 4:00 PM EDT Office Visit Cardiology at [address] [place] [address] Nathaniel Keita MD [facility] [place] [address] documented as of this encounter Visit Diagnoses Diagnosis Type II or unspecified type diabetes mellitus with ophthalmic manifestations, 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
--- OUTSIDE RECORDS SUMMARY | 2024-04-24 21:29 | XMS_ITS | Encounter Summary ---
[place] [address] Care Team Providers Care Dowel Pin Man Name Role Phone Neva Pugh MD Primary Care Provider [phone] Encounter Details Date Type Department Care Team (Late st Contact Info) Description 10/22/2010 Orders Only Cardiology at [address] [phone] Neva Pugh MD [address] [place], [place] [phone] Social History Tobacco Use Types Packs/Day Years [...] 11:30 AM EST Office Visit Cardiology at [address] [phone] Ruben Hartman, PA [facility] [place] [address] 04/26/2024 10:00 AM EST Hospital Encounter Non-Invasive Cardiology Lab [facility] [place] [address] Arrived 09/24/2024 4:00 PM EDT Office Visit Cardiology at [address] [place] [phone] Nathaniel Keita MD [facility] [place] [address] documented as of this encounter Procedures Procedure Name Priority Date/Time Associated Diagnosis Comments EP DEVICE SCAN Routine 10/20/2010 documented in this encounter Results * Scan Doc: EP Device (10/20/2010) Anatomical Region Laterality Modality Other Neva Pugh MD MEDIA MGR SCAN EXT O RDR/RSLT documented in this encounter Visit Diagnoses Not on filedocumented in this encounter Care Teams Dowel Pin Man Relationship Specialty Start Date End Date Neva Pugh MD [address] [place] [address] PCP - General 02/24/10 04/05/12 documented as of this encounter
--- OUTSIDE RECORDS SUMMARY | 2024-04-24 21:29 | XMS_ITS | Encounter Summary ---
[place] [address] Care Team Providers Care Certified Paralegal Name Role Phone Neva Pugh MD Primary Care Provider [phone] Reason for Visit * Reason Comments Diabetes Encounter Details Date Type Department Care Team (Late st Contact Info) Description 08/09/2011 12:30 PM EDT Office [place] [phone] Jaylin Salcido APRN Diabetes mellitus; Hyperlipidemia Discharge Disposition: Home Social [...] is doing well. Eyes: Followed closely by stitching machine feeder or offbearer, wears glasses. No recent headaches or chest [...] for. She has an annual followup with candy forming machine operator and she plans to discuss her shortness of breath and the possibility of trial of Ambien for insomnia with Dr. Beasley. This was a 33-minute office visit with [...] AM EST Office Visit Cardiology at [address] [phone] Ruben Hartman, LAURA [facility] [place] [address] 04/26/2024 10:00 AM EST Hospital Encounter Non[place] [address] Arrived 09/24/2024 4:00 PM EDT Office Visit Cardiology at [address] [address] Nathaniel Keita MD [facility] [place] [address] documented as of this encounter Results * (ABNORMAL) LDL Cholesterol, Direct (12/02/2011 2:20 PM EDT) LDL Cholesterol, Direct 132(H) <=99 mg/dL [facility] Comment: The National Cholesterol Education Program (NCEP) has set the following guidelines for LDL Cholesterol: Reference range: ?? Optimal: ?<100 mg/dL ?? Near Optimal/Above Optimal: ?? 100-129 mg/dL ?? Borderline high: ?130-159 mg/dL ?? High: ? 160-189 mg/dL ?? Very high: ?>vq=843 mg/dL REJI 2001: 285(63):4587-2789 Blood specimen (specimen) 12/02/2011 2:20 PM EDT 12/02/2011 2:38 PM EDT Narrative Resulting Agency Comment Spec In Lab Chris Chatman MD CHEMISTRY ORDERABLES Performing Organization Address [facility] de Phone Number [facility] * TSH (12/02/2011 2:20 PM EDT) Thyroid Stimulating Hormone 0.78 0.27 - 4.20 mcIU/mL [facility] Blood specimen (specimen) 12/02/2011 2:20 PM EDT 12/02/2011 2:38 PM EDT Narrative Resulting Agency Comment Spec In Lab Chris Chatman MD CHEMISTRY ORDERABLES Performing Organization Address [facility] de Phone Number [facility] * (ABNORMAL) Hemoglobin A1c (12/02/2011 2:20 PM EDT) Hemoglobin A1c 8.0(H) 4.3 - 6.1 % [facility] Estimated Average Glucose 183 mg/dL [facility] Comment: eAG equivalents for HbA1c [...] into estimated average glucose values. ??Diabetes Care 2008:31(8):9374-8773. Blood specimen (specimen) 12/02/2011 2:20 PM EDT 12/02/2011 2:38 PM EDT Narrative Resulting Agency Comment Spec In Lab Chris Chatman MD CHEMISTRY ORDERABLES [facility] * (ABNORMAL) Comprehensive metabolic panel (non-fasting) (12/02/2011 2:20 PM EDT) Glucose 110 60 - 199 mg/dL [facility] Comment:Diabetes: >=200 mg/d L plus symptoms Blood Urea Nitrogen 21(H) 8 - 18 mg/dL [facility] Creatinine 1.11 0.70 - 1.20 mg/dL [facility] Comment: Please note that the pediatric reference intervals supplied above were not validated [place] [facility] [place] Results from pediatric patients [...] In Lab Chris Chatman MD CHEMISTRY ORDERABLES [facility] documented in this encounter Visit Diagnoses Diagnosis Diabetes mellitus Type II or unspecified type diabetes mellitus without mention of complication, not stated as uncontrolled Hyperlipidemia Other and unspecified hyperlipidemia documented in this encounter Care Teams Certified Paralegal Relationship Specialty Start Date End Date Neva Pugh MD [address] [place] [address] PCP - General 02/24/10 04/05/12 documented as of this encounter
--- OUTSIDE RECORDS SUMMARY | 2024-04-24 21:29 | XMS_ITS | Encounter Summary ---
[place] [address] Care Team Providers Care Grooming Assistant Name Role Phone Neva Pugh MD Primary Care Provider [phone] Encounter Details Date Type Department Care Team (Latest Contact Info) Description 08/09/2011 12:38 PM EDT - 08/09/2011 11:59 PM EDT Hospital [place] [phone] Elisha Nichols MD DM type 1 (diabetes mellitus, type 1) [...] by mouth daily. 08/16/2011 Blood Sugar Diagnostic, Maggie (ACCU-CHEK COMPACT TEST) Strp 6 strips by [facility]Non-Drug; Combo Route) route 6 times daily. 4-6 times daily 6 Box 3 03/15/2011 05/08/2013 furosemide (LASIX) 20 mg tabletIndications:h ypertension Take by mouth daily as needed. Mon/wed/fri Indications: Hypertension 90 tablet 3 01/25/2011 12/02/2011 [...] nightly. 90 tablet 3 10/19/2010 12/02/2011 Insulin [place], Disposable, (BD INSULIN PEN NEEDLE UF SHORT) 31 X 5/16 Ndle [place] [facility]Non-Drug; Combo Route) route. 03/31/2017 SUBCUTANEOUS INSULIN PUMP (INSULIN PUMP [id number] [facility]) by [facility]Non-Drug; Combo Route) route. 03/31/2017 acetaminophen (TYLENOL) 325 [...] 11:30 AM EST Office Visit Cardiology at [address] [address] Ruben Hartman PA [facility] [place] [address] 04/26/2024 10:00 AM EST Hospital Encounter Non-Invasive Cardiology Lab [facility] [place] [address] Arrived 09/24/2024 4:00 PM EDT Office Visit Cardiology at [address] [address] Nathaniel Keita MD [facility] [place] [address] documented as of this encounter Procedures Procedure [...] PM EDT) Cholesterol, Total 222(H) <=199 mg/dL [facility] Comment: Recommendations of the NCEP Adult Treatment Panel for the following risk cutoff thresholds for the [place] population: Desirable: <200 mg/dL Borderline High: 200-239 mg/dL High: > or = 240 mg/dL HDL Cholesterol 49 >=40 mg/dL [facility] Comment: Reference range: ??Low HDL: ?? < 40 mg/dL ??Normal: ?40-60 mg/dL ??Desirable: > 60 mg/dL REJI 2001; 285(19):9891-2284 Cholesterol/HDL Ratio 4.5 ratio [facility] Comment: A Cholesterol to HDL ratio below 4:1 is desirable. ??Studies suggest that increased CAD risk occurs at ratios above 5 for females and above 6 for men. ? [place] Heart Association ??(http://www.americanheart.org) ? Aurelia Int Med, 1994; 121:641 ? AM J Med, 1998; 105(1A):48S Blood specimen (specimen) 08/09/2011 12:43 PM EDT 08/09/2011 12:54 PM EDT Narrative Resulting Agency Comment Spec In Lab Elisha Nichols MD CHEMISTRY ORDERAB LES [facility] * (ABNORMAL) LDL Cholesterol, Direct (08/09/2011 12:43 PM EDT) LDL Cholesterol, Direct 142(H) <=99 mg/dL [facility] Comment: The National Cholesterol Education Program (NCEP) has set the following guidelines for LDL Cholesterol: Reference range: ?? Optimal: ?<100 mg/dL ?? Near Optimal/Above Optimal: ?? 100-129 mg/dL ?? Borderline high: ?130-159 mg/dL ?? High: ? 160-189 mg/dL ?? Very high: ?>vf=268 mg/dL REJI 2001: 285(19):2911-0310 Blood specimen (specimen) 08/09/2011 12:43 PM EDT 08/09/2011 12:54 PM EDT Narrative Resulting Agency Comment Spec In Lab Elisha Nichols MD CHEMISTRY ORDERAB LES [facility] * (ABNORMAL) Hemoglobin A1c (08/09/2011 12:43 PM EDT) Hemoglobin A1c 8.6(H) 4.3 - 6.1 % [facility] Estimated Average Glucose 200 mg/dL [facility] Comment: eAG equivalents for HbA1c [...] into estimated average glucose values. ??Diabetes Care 2008:31(8):1910-8277. Blood specimen (specimen) 08/09/2011 12:43 PM EDT 08/09/2011 12:54 PM EDT Narrative Resulting Agency Comment Spec In Lab Elisha Nichols MD CHEMISTRY ORDERAB LES Performing Organization Address City/State/[facility] Co de Phone Number [facility] documented in this encounter Visit Diagnoses Diagnosis DM type 1 (diabetes mellitus, type 1) Type I (juvenile type) diabetes mellitus without mention of complication, not stated as uncontrolled documented in this encounter Care Teams Grooming Assistant Relationship Specialty Start Date End Date Neva Pugh MD [address] [place] [address] PCP - General 02/24/10 04/05/12 documented as of this encounter
--- OUTSIDE RECORDS SUMMARY | 2024-04-24 21:29 | XMS_ITS | Encounter Summary ---
[place] [address] Care Team Providers Care Script Manager Name Role Phone Charleen Field MD Primary Care Provider [phone] Reason for Visit * Reason Comments Follow-up Encounter Details Date Type Department Care Team (Late st Contact Info) Description 01/06/2012 9:10 AM EDT Follow-Up Cardiology at [address] [phone] Thaddeus Cespedes RN Andrus, Bruce W, MD [facility] [place] [address] Fatigue (Primary Dx); Hypertension Discharge Disposition: Home [...] Quezada MD - 01/06/2012 9:53 AM EDT [facility] Clinic [...] 3 ??? SUBCUTANEOUS INSULIN PUMP (INSULIN PUMP [id number] [facility] by [facility]Non-Drug; Combo Route) route. ??? aspirin 81 mg [...] daily,PRN ??? Diabetic Supplies, Miscellan. Misc by [facility]Non-Drug; Combo Route) route. Insulin Pump Suppliesand Diabetes Testing Supplies. Pt. Tests BS 4x/day. 90 day supply. Manually faxed to [employer] @ . ??? Blood Sugar Diagnostic, Drum (ACCU-CHEK COMPACT TEST) Strp 6 strips by [facility].(Non-Drug; Combo Route) route 6 times daily. 4-6 times daily 6 Box 3 ??? insulin aspart (NOVOLOG) 100 unit/mL vial injection Inject 50-60 Units subcutaneously daily. 60mL PRN ??? Insulin [place], Disposable, (BD INSULIN PEN NEEDLE UF SHORT) 31 X 5/16 Ndle by [facility].(Non-Drug; Combo Route) route. Allergies: Lisinopril, Ibandronate sodium, Amiodarone, Codeine phos, Propoxyphene n- acetaminophen, Adhesive tape, Kiwi (actinidia chinensis), Alendronate sodium, Celecoxib, Gabapentin and Ezetimibe BP 150/90 Pulse 84 Ht 172.7 cm (5' 7.99) Wt 90.855 kg (200 lb 4.8 oz) BMI 30.46 kg/m2 SpO2 98% Interval History: Liane is seen in followup for her cardiovascular problems. These include wgj-ol-ptxshlic cardiac arrest with implantation of ICD and [...] She will discuss this more with the solo truck driver. She self-discontinued her Lasix entirely because of [...] have discontinued her Lasix. 2. ICD for esk-gp-sudxgjmw cardiac arrest: Good function. She is not [...] AM EST Office Visit Cardiology at [address] [place] [phone] Ruben Hartman PA [facility] [place] [address] 04/26/2024 10:00 AM EST Hospital Encounter Non-Invasive Cardiology Lab [facility] [place] [address] Arrived 09/24/2024 4:00 PM EDT Office Visit Cardiology at [address] [place] [phone] Nathaniel Keita MD [facility] [place] [address] documented as of this encounter Results * Echo Transthoracic (Complete) (01/06/2012 2:30 PM EDT) EF 60 HEARTShoppable SYSTEM Anatomical Region Laterality Modality Other 01/06/2012 Narrative 01/06/2012 2:42 PM EDT Procedure: ? Transthoracic Echocardiogram Patient: ? KAN Tyler ? (Age): 1945(66) Med Rec#: ?[id number] ? Sex: ?F ? Site Loc: [facility] ? Ht / Wt: ??172(cm)/91(kg) Pt. Loc: ? Echo Lab ? BSA: ?2.09 Study Date: ?01/06/2012 ? Pt. Type: Outpatient Tape: ? Referring: Milind Quezada ([id number]) Molding Cutter: Erendira Keller RDCS Diagnosis: ??CAD, unspecified (414.4) ??Fatigue (780.79) CPT Code(s): ??Echo Full (30235), ??Spectral Doppler (90979), ??Color Doppler (13041), ??Definity (49105BB), Indication(s): ??Fatigue Rhythm: HR ?BP 85 ?145/80 [...] ? Mid-Inferior ?Normal ? Mid-Inferoseptal ?Normal ? Lizella-Septal ? Normal ? Lizella-Anterior ? Normal ? Lizella-Lateral ?Normal ? Lizella-Inferior ? Normal ? Lizella-Tip ?Normal ? Chambers ?Value ?Units (Range) ? [...] 01/06/2012 14:41:31 Images reviewed and interpretation verified [facility] Cardiac Ultrasound Laboratory Procedure Note Alexander Abernathy MD - 01/06/2012 Procedure: Transthoracic Echocardiogram Patient: KAN Tyler (Age): 1945(66) Med Rec#: [id number] Sex: F Site Loc: [facility] Ht / Wt: 172(cm)/91(kg) Pt. Loc: Echo Lab BSA: 2.09 Study Date: 01/06/2012 Pt. Type: Outpatient Tape: Referring: Milind Quezada ([id number]) Molding Cutter: Erendira Keller [facility] Diagnosis: CAD, unspecified (414.4) Fatigue (780.79) CPT Code(s): Echo Full (90237), Spectral Doppler (90742), Color Doppler (18051), Definity (85391YY), Indication(s): Fatigue Rhythm: HR BP 85 145/80 [...] Normal Mid-Posterolateral Normal Mid-Inferior Normal Mid-Inferoseptal Normal Lizella-Septal Normal Lizella-Anterior Normal Lizella-Lateral Normal Lizella-Inferior Normal Lizella-Tip Normal Chambers Value Units (Range) LV EF [...] 01/06/2012 14:41:31 Images reviewed and interpretation verified [facility] Cardiac Ultrasound Laboratory Milind Quezada MD ECHO ORDERABLES documented in this encounter Visit Diagnoses Diagnosis Fatigue- Primary Other malaise and fatigue Hypertension Unspecified essential hypertension Fatigue Other malaise and fatigue documented in this encounter Care Teams Script Manager Relationship Specialty Start Date End Date Charleen Field MD [address] [place] [address] PCP - General 02/24/10 04/05/12 documented as of this encounter
--- OUTSIDE RECORDS SUMMARY | 2024-04-24 21:29 | XMS_ITS | Encounter Summary ---
Author Organization [facility] [place] [address] Care Team Providers Care Car Sealer Name Role Phone Alexander Adams MD Primary Care Provider [phone] Reason for Visit * Reason Comments Medication Refill Encounter Details Date Type Department Care Team (Late st Contact Info) Description 08/02/2012 [place] [address] Elisha Nichols MD Social History Tobacco Use [...] AM EST Office Visit Cardiology at [address] [address] Ruben Hartman, PA [facility] [place] [address] 04/26/2024 10:00 AM EST Hospital Encounter Non-Invasive Cardiology Lab [facility] [place] [address] Arrived 09/24/2024 4:00 PM EDT Office Visit Cardiology at [address] [place] [address] Nathaniel Keita MD [facility] [place] [address] documented as of this encounter Visit Diagnoses Not on filedocumented in this encounter Care Teams Car Sealer Relationship Specialty Start Date End Date Alexander Adams MD [address] [place] [address] PCP - General 04/06/12 07/26/23 documented as of this encounter
--- OUTSIDE RECORDS SUMMARY | 2024-04-24 21:29 | XMS_ITS | Encounter Summary ---
[place] [address] Care Team Providers Care Window Cutter Name Role Phone Neva Pugh MD Primary Care Provider Reason for Visit * Reason Comments Cardiac Arrest Encounter Details Date Type Department Care Team (Late st Contact Info) Description 04/29/2011 11:15 AM EST Follow-Up Cardiology at [address] [phone] Lauren Cook, RN Cardiac arrest - ventricular [...] Medtronic Sprint Quattro Model# 6947-58 cm Serial #[id number] Bipolar, steroid-tipped, active-fixation IS-1, DF-1 lead Access: Left axillary vein Location: Right ventricular apex R wave, ICD: 8.0 mV Pacing threshold, ICD: 1.0 V at 0.5 ms Impedance, ICD: 532 ohms HVB Impedance 33 ohms SVC Impedance 39 ohms Pace the diaphragm at 10 V: No Pulse generator: Medtronic John II VR Model# [id number] Serial# [id number] Single-chamber ICD Location: Subcutaneous Parameters: VF detection rate: >200bpm VF therapy: ATP during charging,30J,35Jx5 FVT detection rate: 200-250bpm FVT therapy: Burst(1),30J,35Jx4 VT detection rate:182-200bpm VT therapy:Burst(3),20J,35Jx4 Enhancement: Wavelet, VT Monitor Bradycardia pacing: VVI 40 Pacing percentages: VS 100% Histogram is well distributed. Underlying rhythm: SR 75bpm FL 200ms Follow-up Battery status: 3.17V KP: 2.63V [...] AM EST Office Visit Cardiology at [address] [phone] Ruben Hartman PA [facility] [place] [address] 04/26/2024 10:00 AM EST Hospital Encounter Non-Invasive [place] [address] Arrived 09/24/2024 4:00 PM EDT Office Visit Cardiology at [address] [phone] Nathaniel Keita MD [facility] [place] [address] documented as of this encounter Visit Diagnoses Diagnosis Cardiac arrest - ventricular fibrillation- Primary Ventricular fibrillation documented in this encounter Care Teams Window Cutter Relationship Specialty Start Date End Date Neva Pugh MD [address] [place] [address] PCP - General 02/24/10 04/05/12 documented as of this encounter
--- OUTSIDE RECORDS SUMMARY | 2024-04-24 21:29 | XMS_ITS | Encounter Summary ---
[place] [address] Care Team Providers Care Skiver Counter Name Role Phone Neva Pugh MD Primary Care Provider [phone] Encounter Details Date Type Department Care Team (Late st Contact Info) Description 04/29/2011 12:30 PM EST Office Visit [place] [phone] Elisha Nichols MD DM type 1 (diabetes [...] (ACCU-CHEK COMPACT TEST) Strp 6 strips by [facility].(Non-Drug; Combo Route) route 6 times daily. 4-6 [...] mouth nightly. 90 tablet 3 ??? Insulin [place], Disposable, (BD INSULIN PEN NEEDLE UF SHORT) 31 X 5/16 Ndle by [facility].(Non-Drug; Combo Route) route. ??? SUBCUTANEOUS INSULIN PUMP (INSULIN PUMP [id number] [facility]) by [facility].(Non-Drug; Combo Route) route. ??? aspirin 81 mg [...] AM EST Office Visit Cardiology at [address] [address] Ruben Hartman, [facility] [place] [address] 04/26/2024 10:00 AM EST Hospital Encounter Non-[place] [address] Arrived 09/24/2024 4:00 PM EDT Office Visit Cardiology at [address] [address] Nathaniel Keita MD [facility] [place] [place] [address] documented as of this encounter Procedures Procedure Name Priority Date/Time Associated Diagnosis Comments HEMOGLOBIN A1C VERNON 04/29/2011 12:03 PM EST DM type 1 (diabetes mellitus, type 1) documented in this encounter Results * (ABNORMAL) HDL/Cholesterol Profile (08/09/2011 12:43 PM EDT) [facility] Signature Cholesterol, Total 222(H) <=199 mg/dL [facility] [employer] Comment: Recommendations of the NCEP Adult Treatment Panel for the following risk cutoff thresholds for the [place] population: Desirable: <200 mg/dL Borderline High: 200-239 mg/dL High: > or = 240 mg/dL HDL Cholesterol 49 >=40 mg/dL [facility] [employer] Comment: Reference range: ??Low HDL: ?? < 40 mg/dL ??Normal: ?40-60 mg/dL ??Desirable: > 60 mg/dL REJI 2001; 285(19):8203-8067 Cholesterol/HDL Ratio 4.5 ratio [facility] Comment: A Cholesterol to HDL ratio below 4:1 is desirable. ??Studies suggest that increased CAD risk occurs at ratios above 5 for females and above 6 for men. ? [place] Heart Association ??(http://www.americanheart.org) ? Aurelia Int Med, 1994; 121:641 ? AM J Med, 1998; 105(1A):48S Blood specimen (specimen) 08/09/2011 12:43 PM EDT 08/09/2011 12:54 PM EDT Narrative Resulting Agency Comment Spec In Lab Elisha Nichols MD CHEMISTRY ORDERAB LES [facility] * (ABNORMAL) LDL Cholesterol, Direct (08/09/2011 12:43 PM EDT) LDL Cholesterol, Direct 142(H) <=99 mg/dL [facility] Comment: The National Cholesterol Education Program (NCEP) has set the following guidelines for LDL Cholesterol: Reference range: ?? Optimal: ?<100 mg/dL ?? Near Optimal/Above Optimal: ?? 100-129 mg/dL ?? Borderline high: ?130-159 mg/dL ?? High: ? 160-189 mg/dL ?? Very high: ?>si=099 mg/dL REJI 2001: 285(19):6487-5965 Blood specimen (specimen) 08/09/2011 12:43 PM EDT 08/09/2011 12:54 PM EDT Narrative Resulting Agency Comment Spec In Lab Elisha Nichols MD CHEMISTRY ORDERAB LES Performing Organization Address [facility]/ZIP Co de Phone Number THOMPSON TENA * (ABNORMAL) Hemoglobin A1c (08/09/2011 12:43 PM EDT) Hemoglobin A1c 8.6(H) 4.3 - 6.1 % [facility] Estimated Average Glucose 200 mg/dL [facility] Comment: eAG equivalents for HbA1c percentages: [...] into estimated average glucose values. ??Diabetes Care 2008:31(8):9853-3383. Blood specimen (specimen) 08/09/2011 12:43 PM EDT 08/09/2011 12:54 PM EDT Narrative Resulting Agency Comment Spec In Lab Elisha Nichols MD CHEMISTRY ORDERAB LES Performing Organization Address City/[facility]/ZIP Co de Phone Number CERNER MILLENNIUM * (ABNORMAL) Hemoglobin A1c (04/29/2011 12:03 PM EST) Hemoglobin A1c 8.3(H) 4.3 - 6.1 % [facility] Estimated Average Glucose 192 mg/dL [facility] Comment: eAG equivalents for HbA1c percentages: [...] into estimated average glucose values. ??Diabetes Care 2008:31(8):0321-5448. Blood specimen (specimen) 04/29/2011 12:03 PM EST 04/29/2011 12:09 PM EST Elisha Nichols MD CHEMISTRY ORDERAB LES [facility] documented in this encounter Visit Diagnoses Diagnosis DM type 1 (diabetes mellitus, type 1)- Primary Type I (juvenile type) diabetes mellitus without mention of complication, not stated as uncontrolled documented in this encounter Care Teams Skiver Counter Relationship Specialty Start Date End Date Neva Pugh MD [address] [place] [address] PCP - General 02/24/10 04/05/12 documented as of this encounter
--- OUTSIDE RECORDS SUMMARY | 2024-04-24 21:29 | XMS_ITS | Encounter Summary ---
[place] [address] Care Team Providers Care Multi Slide Machine Tender Name Role Phone Alexander Adams MD Primary Care Provider [phone] Reason for Visit * Reason Comments Diabetes Encounter Details Date Type Department Care Team (Late st Contact Info) Description 04/06/2012 9:00 AM EST Office [place] [phone] Jaylin Salcido APRN Diabetes mellitus; DM neuro manif type I; [...] and 10 p.m. 1.1. Total basal 28.05. Qczjnjk-io-ftxo 1:10. Correction factor 25. Target 95 to [...] chest pain. Has an annual visit with revenue stamp clerk. No recent shortness of breath. No recent GI symptoms. Appetite is good. Sleep pattern is good. Skin: No rashes. No sores. Had basal cell cancer removed from upper L arm. Feet: Followed by Dr. King, mixer foam rubber in [place], [place]. PHYSICAL EXAMINATION: Appearance: She appears in [...] Diabetes mellitus with complications. Consider referral to camp boss. The patient states she definitely could drink more water daily and she is going to try to do that. Will consider referral to camp boss at next office visit if kidney function [...] AM EST Office Visit Cardiology at [address] [address] Ruben Hartman PA [facility] [place] [address] 04/26/2024 10:00 AM EST Hospital Encounter Non-Invasive Cardiology Lab [facility] [place] [address] Arrived 09/24/2024 4:00 PM EDT Office Visit Cardiology at [address] [place] [address] Nathaniel Keita MD [facility] [address] documented as of this encounter Procedures Procedure [...] CE RNER MILLENNIUM Albumin, Urine 10.0 mg/L JOSE R MILLENNIUM Albumin / Creatinin Ratio, Urine 8 mcg/mg Cr [facility] Comment: Reference Range* Random collection (mcg/mg creatinine) Normal ?<30 Microalbuminuria ?? 30 - 300 Clinical Albuminuria ?? >300 *[place] Diabetes Association. Diabetic Nephropathy. Diabetes Care 1997;(Suppl 1):S24-S27 Exercise within 24 hour, infection, fever, CHF, marked hyperglycemia, and marked hypertension may elevate urinary albumin excretion over baseline values. Urine specimen (specimen) 07/06/2012 9:36 AM EDT 07/06/2012 9:45 AM EDT Narrative Resulting Agency Comment Spec In Lab Chris Chatman MD URINE ORDERABLES [facility] * (ABNORMAL) LDL Cholesterol, Direct (07/06/2012 9:25 AM EDT) LDL Cholesterol, Direct 114(H) <=99 mg/dL [facility] Comment: The National Cholesterol Education Program (NCEP) has set the following guidelines for LDL Cholesterol: Reference range: ?? Optimal: ?<100 mg/dL ?? Near Optimal/Above Optimal: ?? 100-129 mg/dL ?? Borderline high: ?130-159 mg/dL ?? High: ? 160-189 mg/dL ?? Very high: ?>uk=427 mg/dL REJI 2001: 285(19):7147-0095 Blood specimen (specimen) 07/06/2012 9:25 AM EDT 07/06/2012 9:46 AM EDT Narrative Resulting Agency Comment Spec In Lab Chris Chatman MD CHEMISTRY ORDERABLES [facility] * HDL/Cholesterol Profile (07/06/2012 9:25 AM EDT) Cholesterol, Total 187 <=199 mg/dL [facility] Comment: Recommendations of the NCEP Adult Treatment Panel for the following risk cutoff thresholds for the [place] population: Desirable: <200 mg/dL Borderline High: 200-239 mg/dL High: > or = 240 mg/dL HDL Cholesterol 43 >=40 mg/dL [facility] MILLENNIUM Comment: Reference range: ??Low HDL: ?? < 40 mg/dL ??Normal: ?40-60 mg/dL ??Desirable: > 60 mg/dL REJI 2001; 285(19):7791-1441 Cholesterol/HDL Ratio 4.3 ratio [facility] Comment: A Cholesterol to HDL ratio below 4:1 is desirable. ??Studies suggest that increased CAD risk occurs at ratios above 5 for females and above 6 for men. ? [place] Heart Association ??(http://www.americanheart.org) ? Aurelia Int Med, 1994; 121:641 ? AM J Med, 1998; 105(1A):48S Blood specimen (specimen) 07/06/2012 9:25 AM EDT 07/06/2012 9:46 AM EDT Narrative Resulting Agency Comment Spec In Lab Chris Chatman MD CHEMISTRY ORDERABLES Performing Organization Address [facility] de Phone Number [facility] * VIT D Total Evaluation (07/06/2012 9:25 AM EDT) Vitamin D Total 25 OH 36 30 - 100 ng/mL [facility] Comment: Deficient <10 ng/mL Insufficient 10 [...] Chatman MD CHEMISTRY ORDERABLES Performing Organization Address [facility] de Phone Number [facility] * (ABNORMAL) Hemoglobin A1c (07/06/2012 9:25 AM EDT) Hemoglobin A1c 7.8(H) 4.3 - 6.1 % [facility] Comment: The [place] Diabetes Association (ADA) has stated that HbA1c [...] 2013:36;suppl 1:S11-S66. Estimated Average Glucose 177 mg/dL [facility] Comment: eAG equivalents for HbA1c percentages: [...] into estimated average glucose values. ??Diabetes Care 2008:31(8):8133-2109. Blood specimen (specimen) 07/06/2012 9:25 AM EDT 07/06/2012 9:46 AM EDT Narrative Resulting Agency Comment Spec In Lab Chris Chatman MD CHEMISTRY ORDERABLES [facility] * Differential, Automated (04/06/2012 9:08 AM EST) Neutrophil % 62.5 34.0 - 71.0 % [facility] Neutrophil Absolute 5.91 1.50 - 6.30 x10(3)/mcL [...] Chris Chatman MD HEMATOLOGY ORDERABLE S CERNER JANELENNIUM * CBC (with Diff) (04/06/2012 9:08 AM EST) White Blood Cell 9.5 4.0 - 10.0 x10(3)/mcL [facility] MILLENNI[facility] Red Blood Cell 4.62 3.93 - 5.22 x10(6)/mcL [facility] MILLENNI[facility] Hemoglobin 13.6 11.2 - 15.7 gm/dL [facility] MILL[facility]NI[facility] Hematocrit 40.5 34.0 - 45.0 % C[facility] MILLENNIUM Mean Cell Volume 87.7 79.0 - 94.0 fL [facility] MILLENNIUM Mean Cell Hemoglobin 29.4 26.6 - 32.2 pg THOMPSON MILLENNIUM Mean Cell Hemoglobin Concentration 33.6 32.0 - 36.5 gm/dL CERNE ISLASENNIUM Platelet 205 145 - 370 x10(3)/mcL [facility] MILLENNI[facility] RDW Standard Deviation 42.5 35.0 - 46.0 fL C[facility] MILLENNIUM RDW coefficient of variation 13.4 10.9 - 14.4 % CERNE MILLENNIUM Mean Platelet Volume 10.3 9.0 - 12.0 fL [facility] MILLENNIUM Blood specimen (specimen) 04/06/2012 9:08 AM EST 04/06/2012 9:10 AM EST Narrative Resulting Agency Comment Spec In Lab Chris Chatman MD HEMATOLOGY ORDERABLE S [facility] * (ABNORMAL) Hemoglobin A1c (04/06/2012 9:08 AM EST) Hemoglobin A1c 7.9(H) 4.3 - 6.1 % [facility]OM[facility]ON ISLASENNIUM Estimated Average Glucose 180 mg/dL [facility] Comment: eAG equivalents for HbA1c percentages: HbA1c(%) [...] into estimated average glucose values. ??Diabetes Care 2008:31(8):2097-8893. Blood specimen (specimen) 04/06/2012 9:08 AM EST [...] diabetic kidney disease. References: http://nkdep.nih.gov/resources/NKDEP_Suggestn4Labs_0606_508.pdf http://www.kidney.org/professionals/kls/pdf/faq_gfr.pdf Azar Kumar, Phylicia NA, Cristobal AK, Bob TS, Anup [...] hyperlipidemia documented in this encounter Care Teams Multi Slide Machine Tender Relationship Specialty Start Date End Date Alexander Adams MD [address] [place] [address] PCP - General 04/06/12 07/26/23 documented as of this encounter
--- OUTSIDE RECORDS SUMMARY | 2024-04-24 21:29 | XMS_ITS | Encounter Summary ---
Author Organization [facility] [place] [address] Care Team Providers Care Associate Director Regulatory Affairs Name Role Phone Alexander Adams MD Primary Care Provider [phone] Encounter Details Date Type Department Care Team (Latest Contact Info) Description 07/06/2012 9:19 AM EDT - 07/06/2012 11:59 PM EDT [place] [phone] Chris Chatman MD [facility] [place] [address] Type I (juvenile type) diabetes mellitus with [...] 01/20/2012 03/12/2013 Diabetic Supplies, Miscellan. Misc by [facility]Non-Drug; Combo Route) route. Insulin Pump Supplies and Diabetes Testing Supplies. Pt. Tests BS 4x/day. 90 day supply. Manually faxed to [employer] @[phone]. 12/13/2011 02/22/2013 simvastatin (ZOCOR) 20 mg tabletIndications:H [...] (ACCU-CHEK COMPACT TEST) Strp [address] [facility]Non-Drug; Combo Route) route 6 times daily. 4-6 times daily 6 Box 3 03/15/2011 05/08/2013 Insulin [place], Disposable, (BD INSULIN PEN NEEDLE UF SHORT) 31 X 08/[address] [facility]Non-Drug; Combo Route) route. 03/31/2017 SUBCUTANEOUS INSULIN PUMP (INSULIN PUMP [id number] [facility] [place] by [facility]Non-Drug; Combo Route) route. 03/31/2017 acetaminophen (TYLENOL) 325 [...] 11:30 AM EST Office Visit Cardiology at [address] [phone] Ruben Hartman PA [facility] [place] [address] 04/26/2024 10:00 AM EST Hospital Encounter Non-[place] [address] Arrived 09/24/2024 4:00 PM EDT Office Visit Cardiology at [address] [address] Nathaniel Keita MD [facility] [place] [address] documented as of this encounter Procedures Procedure [...] 30 - 300 Clinical Albuminuria ?? >300 *[place] Diabetes Association. Diabetic Nephropathy. Diabetes Care 1997;(Suppl 1):S24-S27 Exercise within 24 hour, infection, fever, CHF, marked hyperglycemia, and marked hypertension may elevate urinary albumin excretion over baseline values. Urine specimen (specimen) 07/06/2012 9:36 AM EDT 07/06/2012 9:45 AM EDT Narrative Resulting Agency Comment Spec In Lab Chris Chatman MD URINE ORDERABLES [facility] * (ABNORMAL) Comprehensive metabolic panel (non-fasting) (07/06/2012 9:25 AM EDT) Glucose 295(H) 60 - 199 mg/dL [facility] Comment:Diabetes: >=200 mg/d L plus symptoms Blood Urea Nitrogen 19(H) 8 - 18 mg/dL [facility] Creatinine 1.16 0.70 - 1.20 mg/dL [facility] Comment: Please note that the pediatric reference intervals supplied above were not validated at [facility] [place]. Results from pediatric [...] CHEMISTRY ORDERABLES [facility] * (ABNORMAL) LDL Cholesterol, Direct (07/06/2012 9:25 AM EDT) LDL Cholesterol, Direct 114(H) <=99 mg/dL [facility] Comment: The National Cholesterol Education Program (NCEP) has set the following guidelines for LDL Cholesterol: Reference range: ?? Optimal: ?<100 mg/dL ?? Near Optimal/Above Optimal: ?? 100-129 mg/dL ?? Borderline high: ?130-159 mg/dL ?? High: ? 160-189 mg/dL ?? Very high: ?>gd=449 mg/dL REJI 2001: 285(19):9473-8287 Blood specimen (specimen) 07/06/2012 9:25 AM EDT 07/06/2012 9:46 AM EDT Narrative Resulting Agency Comment Spec In Lab Chris Chatman MD CHEMISTRY ORDERABLES Performing Organization Address [facility] de Phone Number [facility] * HDL/Cholesterol Profile (07/06/2012 9:25 AM EDT) Cholesterol, Total 187 <=199 mg/dL [facility] Comment: Recommendations of the NCEP Adult Treatment Panel for the following risk cutoff thresholds for the [place] population: Desirable: <200 mg/dL Borderline High: 200-239 mg/dL High: > or = 240 mg/dL HDL Cholesterol 43 >=40 mg/dL [facility] Comment: Reference range: ??Low HDL: ?? < 40 mg/dL ??Normal: ?40-60 mg/dL ??Desirable: > 60 mg/dL REJI 2001; 285(19):6910-2688 Cholesterol/HDL Ratio 4.3 ratio [facility] Comment: A Cholesterol to HDL ratio below 4:1 is desirable. ??Studies suggest that increased CAD risk occurs at ratios above 5 for females and above 6 for men. ? [place] Heart Association ??(http://www.americanheart.org) ? A[place]lia Int Med, 1994; 121:641 ? AM J Med, 1998; 105(1A):48S Blood specimen (specimen) 07/06/2012 9:25 AM EDT 07/06/2012 9:46 AM EDT Narrative Resulting Agency Comment Spec In Lab Chris Chatman MD CHEMISTRY ORDERABLES Performing Organization Address [facility] de Phone Number [facility] * VIT D Total Evaluation (07/06/2012 9:25 AM EDT) Vitamin D Total 25 OH 36 30 - 100 ng/mL [facility] Comment: Deficient <10 ng/mL Insufficient 10 [...] [facility] * (ABNORMAL) Hemoglobin A1c (07/06/2012 9:25 AM EDT) Hemoglobin A1c 7.8(H) 4.3 - 6.1 % [facility] Comment: The [place] Diabetes Association (ADA) has stated that HbA1c [...] 2013:36;suppl 1:S11-S66. Estimated Average Glucose 177 mg/dL [facility] Comment: eAG equivalents [...] into estimated average glucose values. ??Diabetes Care 2008:31(8):4147-8892. Blood specimen (specimen) 07/06/2012 9:25 AM EDT 07/06/2012 9:46 AM EDT Narrative Resulting Agency Comment Spec In Lab Chris Chatman MD CHEMISTRY ORDERABLES [facility] documented in this encounter Visit Diagnoses Diagnosis Type I (juvenile type) diabetes mellitus with neurological manifestations, not stated as uncontrolled(250.61) Type I (juvenile type) diabetes mellitus with neurological manifestations, not stated as uncontrolled Hyperlipidemia Other and unspecified hyperlipidemia documented in this encounter Care Teams Associate Director Regulatory Affairs Relationship Specialty Start Date End Date Alexander Adams MD [address] [place] [address] PCP - General 04/06/12 07/26/23 documented as of this encounter
--- OUTSIDE RECORDS SUMMARY | 2024-04-24 21:29 | XMS_ITS | Encounter Summary ---
Author Organization [facility] [place] [address] Care Team Providers Care Manager Car Name Role Phone Neva Pugh MD Primary Care Provider [phone] Reason for Visit * Reason Onset Date Comments Medication Refill 03/13/2011 Encounter Details Date Type Department Care Team (Late st Contact Info) Description 03/13/2011 [place] [address] Elisha Nichols MD Social History Tobacco Use [...] AM EST Office Visit Cardiology at [address] [phone] Ruben Hartman, PA [facility] [place] [address] 04/26/2024 10:00 AM EST Hospital Encounter Non-Invasive Cardiology Lab [facility] [place] [address] Arrived 09/24/2024 4:00 PM EDT Office Visit Cardiology at [address] [place] [phone] Nathaniel Keita MD [facility] [place] [address] documented as of this encounter Visit Diagnoses Not on filedocumented in this encounter Care Teams Manager Car Relationship Specialty Start Date End Date Neva Pugh MD [address] [place] [address] PCP - General 02/24/10 04/05/12 documented as of this encounter
--- OUTSIDE RECORDS SUMMARY | 2024-04-24 21:29 | XMS_ITS | Encounter Summary ---
[place] [address] Care Team Providers Care Ocean Freight Agent Name Role Phone Alexander Adams MD Primary Care Provider [phone] Reason for Visit * Reason Comments Diabetes Encounter Details Date Type Department Care Team (Late st Contact Info) Description 07/06/2012 9:30 AM EDT Office [place] [phone] Elisha Nichols MD Type I (juvenile type) diabetes mellitus with [...] and 10 p.m. 1.1. Total basal 28.05. Viomxxu-uy-kcek 1:10. Correction factor 25. Target 95 to 125. Complications: dentist-01/13 ; eyes- PDR 01/13 ; Cr-1.16, 07/15 ; ma-8, 07/15 ; neuropathy-Charcot feet ; CAD-CABG 2011 ; lipids- TChol 187, HDL-43 , LDL-114, 07/15 DM health maintenance: beta beto-metoprolol 25 ; ASA 81 ; SLOANE/ARB-diovan 40 ; statin-ljmtvezltqj27 ; flu shot-2011 ; pneomovax-had one with bad reaction ; smoking-no ; TSH-0.78, 11/13 Since her last visit, Ms. Omer has been doing very well. Checks her [...] surgeries left second toe-tip amputation, CABG in 2010, hysterectomy, endometriosis surgery, three breast lumpectomies, bilateral [...] 5 ??? Diabetic Supplies, Miscellan. Misc by [facility]Non-Drug; Combo Route) route. Insulin Pump Suppliesand Diabetes Testing Supplies. Pt. Tests BS 4x/day. 90 day supply. Manually faxed to [employer] @ . ??? simvastatin (ZOCOR) 20 mg [...] (ACCU-CHEK COMPACT TEST) Strp 6 strips by Misc.(Non-Drug; Combo Route) route 6 times daily. 4-6 times daily 6 Box 3 ??? Insulin [place], Disposable, (BD INSULIN PEN NEEDLE UF SHORT) 31 X 516 Ndle by [facility].(Non-Drug; Combo Route) route. ??? SUBCUTANEOUS INSULIN PUMP (INSULIN PUMP [id number] [facility] by [facility].(Non-Drug; Combo Route) route. ??? aspirin 81 mg [...] AM EST Office Visit Cardiology at [address] [address] Ruben Hartman, [facility] [place] [address] 04/26/2024 10:00 AM EST Hospital Encounter Non-Invasive [place] [address] Arrived 09/24/2024 4:00 PM EDT Office Visit Cardiology at [address] [phone] Nathaniel Keita MD [facility] [place] [address] documented as of this encounter Results * (ABNORMAL) Hemoglobin A1c (10/09/2012 10:01 AM EDT) [facility] Signature Hemoglobin A1c 8.9(H) 4.3 - 6.1 % [facility] Comment: The [place] Diabetes Association (ADA) has stated that HbA1c [...] 2013:36;suppl 1:S11-S66. Estimated Average Glucose 209 mg/dL [facility] Comment: eAG equivalents for HbA1c [...] into estimated average glucose values. ??Diabetes Care 2008:31(8):9022-1938. Blood specimen (specimen) 10/09/2012 10:01 AM EDT 10/09/2012 10:09 AM EDT Narrative Resulting Agency Comment Spec In Lab Elisha Nichols MD CHEMISTRY ORDERAB LES [facility] documented in this encounter Visit [...] uncontrolled documented in this encounter Care Teams Ocean Freight Agent Relationship Specialty Start Date End Date Alexander Adams MD [address] [place] [address] PCP - General 04/06/12 07/26/23 documented as of this encounter
--- OUTSIDE RECORDS SUMMARY | 2024-04-24 21:29 | XMS_ITS | Encounter Summary ---
Author Organization [facility] [place] [address] Care Team Providers Care Ink Blender Name Role Phone Neva Pugh MD Primary Care Provider [phone] Reason for Visit * Reason Onset Date Comments Medication Refill 12/13/2011 Encounter Details Date Type Department Care Team (Late st Contact Info) Description 12/13/2011 [place] [address] Elisha Nichols MD Social History Tobacco Use [...] Office Visit Cardiology at [address] [phone] Ruben Hartman, PA [facility] [place] [address] 04/26/2024 10:00 AM EST Hospital Encounter Non-Invasive Cardiology Lab [place] [address] Arrived 09/24/2024 4:00 PM EDT Office Visit Cardiology at [address] [place] [phone] Nathaniel Keita MD [facility] [place] [address] documented as of this encounter Visit Diagnoses Not on filedocumented in this encounter Care Teams Ink Blender Relationship Specialty Start Date End Date Neva Pugh MD [address] [place] [address] PCP - General 02/24/10 04/05/12 documented as of this encounter
--- OUTSIDE RECORDS SUMMARY | 2024-04-24 21:29 | XMS_ITS | Encounter Summary ---
Author Organization [facility] [place] [address] Care Team Providers Care Human Resources Trainer Name Role Phone Neva Pugh MD Primary Care Provider Reason for Visit * Reason Onset Date Comments Medication Refill 08/16/2011 Encounter Details Date Type Department Care Team (Late st Contact Info) Description 08/16/2011 [place] [address] Jaylin Salcido APRN Social History Tobacco Use [...] AM EST Office Visit Cardiology at [address] [phone] Ruben Hartman, PA [facility] [place] [address] 04/26/2024 10:00 AM EST Hospital Encounter Non-Invasive Cardiology Lab [facility] [place] [address] Arrived 09/24/2024 4:00 PM EDT Office Visit Cardiology at [address] [place] [address] Nathaniel Keita MD [facility] [place] [address] documented as of this encounter Visit Diagnoses Not on filedocumented in this encounter Care Teams Human Resources Trainer Relationship Specialty Start Date End Date Neva Pugh MD [address] [place] [address] PCP - General 02/24/10 04/05/12 documented as of this encounter
--- OUTSIDE RECORDS SUMMARY | 2024-04-24 21:29 | XMS_ITS | Encounter Summary ---
[place] [address] Care Team Providers Care Sales Account Associate Name Role Phone Neva Pugh MD Primary Care Provider [phone] Reason for Visit * Reason Comments PDR 1 yr PDR OU Encounter Details Date Type Department Care Team (Late st Contact Info) Description 01/06/2012 10:30 AM EDT [place] [phone] Melissa Cleary MD PDR (proliferative diabetic retinopathy) [...] 10:30 AM EDT >> MELISSA CLEARY MD [facility] Jan 06, 2012 11:36 AM PDR post PRP with fine involution OU. >> Parker Ferguson [facility] Jan 06, 2012 10:31 AM 1 yr PDR OU ck, s/p PRP OU, states no change with vision, denies pain/flashes/floaters. documented in this encounter Plan of Treatment Upcoming Encounters Date Type Department Care Team (Late st Contact Info) Description 04/25/2024 11:30 AM EST Office Visit Cardiology at [address] [phone] Ruben Hartman PA [facility] [place] [address] 04/26/2024 10:00 AM EST Hospital Encounter Non-[place] [address] Arrived 09/24/2024 4:00 PM EDT Office Visit Cardiology at [address] [phone] Nathaniel Keita MD [facility] [place] [address] documented as of this encounter Visit Diagnoses Diagnosis PDR (proliferative diabetic retinopathy)- Primary Type II or unspecified type diabetes mellitus with ophthalmic manifestations, not stated as uncontrolled documented in this encounter Care Teams Sales Account Associate Relationship Specialty Start Date End Date Neva Pugh MD [address] [place] [address] PCP - General 02/24/10 04/05/12 documented as of this encounter
--- OUTSIDE RECORDS SUMMARY | 2024-04-24 21:29 | XMS_ITS | Encounter Summary ---
[place] [address] Care Team Providers Care Printing Plate Clerk Name Role Phone Neva Pugh MD Primary Care Provider [phone] Encounter Details Date Type Department Care Team (Late st Contact Info) Description 01/25/2011 10:30 AM EDT Office [place] [phone] Elisha Nichols MD Diabetes; Hypertension; DM type 1 (diabetes mellitus, [...] tablet Take by mouth daily as needed. Mon/tue/tue Indications: Hypertension 90 tablet 3 ??? insulin [...] mouth nightly. 90 tablet 3 ??? Insulin [place], Disposable, (BD INSULIN PEN NEEDLE UF SHORT) 31 X 5/16 Ndle by [facility] [place]Non-Drug; Combo Route) route. ??? SUBCUTANEOUS INSULIN PUMP (INSULIN PUMP [id number] [facility]) by [facility] [place] [...] AM EST Office Visit Cardiology at [address] [phone] Ruben Hartman, [facility] [place] [address] 04/26/2024 10:00 AM EST Hospital Encounter Non[place] [address] Arrived 09/24/2024 4:00 PM EDT Office Visit Cardiology at [address] [address] Nathaniel Keita MD [facility] [place] [address] documented as of this encounter Procedures Procedure Name Priority Date/Time Associated Diagnosis Comments U ALBUMIN/CRE RATIO Routine 01/25/2011 1 1:13 AM EDT Diabetes HEMOGLOBIN A1C Routine 01/25/2011 10:40 AM EDT Diabetes documented in this encounter Results * (ABNORMAL) Hemoglobin A1c (04/29/2011 12:03 PM EST) Hemoglobin A1c 8.3(H) 4.3 - 6.1 % [facility] Estimated Average Glucose 192 mg/dL [facility] Comment: eAG equivalents for HbA1c [...] into estimated average glucose values. ??Diabetes Care 2008:31(8):3452-3420. Blood specimen (specimen) 04/29/2011 12:03 PM EST 04/29/2011 12:09 PM EST Elisha Nichols MD CHEMISTRY ORDERAB LES [facility] * Microalbumin, urine, random (01/25/2011 11:13 AM EDT) Creatinine, Urine 20 mg/dL [facility] Albumin, Urine 4.8 mg/L [facility] Albumin / Creatinin Ratio, Urine 24 mcg/mg Cr [facility] Comment: Reference Range* Random collection (mcg/mg creatinine) Normal ?<30 Microalbuminuria ?? 30 - 300 Clinical Albuminuria ?? >300 *[place] Diabetes Association. Diabetic Nephropathy. Diabetes Care 1997;(Suppl 1):S24-S27 Exercise within 24 hour, infection, fever, CHF, marked hyperglycemia, and marked hypertension may elevate urinary albumin excretion over baseline values. Urine specimen (specimen) 01/25/2011 11:13 AM EDT 01/25/2011 11:25 AM EDT Chris Chatman MD URINE ORDERABLES [facility] * (ABNORMAL) Hemoglobin A1c (01/25/2011 10:40 AM EDT) Hemoglobin A1c 7.9(H) 4.3 - 6.1 % [facility] Estimated Average Glucose 180 mg/dL [facility] Comment: eAG equivalents for HbA1c [...] ??http://professional.diabetes.org/glucosecalculator.aspx Reference: Alfred JEFFRIES, Risa Chavez, Sergio Connor, et al. ??Translating the A1C assay into estimated average glucose values. ??Diabetes Care 2008:31(8):2276-3383. Blood specimen (specimen) 01/25/2011 10:40 AM EDT 01/25/2011 11:00 AM EDT Chris Chatman MD CHEMISTRY ORDERABLES Performing Organization Address City/State/[facility] Co id Phone Number [facility] documented in this encounter Visit Diagnoses Diagnosis Diabetes Type II or unspecified type diabetes mellitus without mention of complication, not stated as uncontrolled Hypertension Unspecified essential hypertension DM type 1 (diabetes mellitus, type 1) Type I (juvenile type) diabetes mellitus without mention of complication, not stated as uncontrolled documented in this encounter Care Teams Printing Plate Clerk Relationship Specialty Start Date End Date Neva Pugh MD [address] [place] [address] PCP - General 02/24/10 04/05/12 documented as of this encounter
--- OUTSIDE RECORDS SUMMARY | 2024-04-24 21:29 | XMS_ITS | Encounter Summary ---
[place] [address] Care Team Providers Care Computer Peripheral Equipment Operator Name Role Phone Alexander Adams MD Primary Care Provider [phone] Encounter Details Date Type Department Care Team (Latest Contact Info) Description 10/09/2012 9:52 AM EDT - 10/09/2012 11:59 PM EDT [place] [phone] Elisha Nichols MD Type I (juvenile type) [...] 01/20/2012 03/12/2013 Diabetic Supplies, Miscellan. Misc by [facility] [place].(Non-Drug; Combo Route) route. Insulin Pump Supplies and Diabetes Testing Supplies. Pt. Tests BS 4x/day. 90 day supply. Manually faxed to [employer] @[phone]. 12/13/2011 02/22/2013 esomeprazole (NEXIUM) 40 mg capsule [...] (ACCU-CHEK COMPACT TEST) Strp 6 strips by [facility].(Non-Drug; Combo Route) route 6 times daily. 4-6 times daily 6 Box 3 03/15/2011 05/08/2013 Insulin [place], Disposable, (BD INSULIN PEN NEEDLE UF SHORT) 31 X /16 Ndle by [facility].(Non-Drug; Combo Route) route. 03/31/2017 SUBCUTANEOUS INSULIN PUMP (INSULIN PUMP [id number] [facility] [place] by [facility].(Non-Drug; Combo Route) route. 03/31/2017 acetaminophen (TYLENOL) 325 [...] AM EST Office Visit Cardiology at [address] [address] Ruben Hartman PA [facility] [place] [address] 04/26/2024 10:00 AM EST Hospital Encounter Non[place] [address] Arrived 09/24/2024 4:00 PM EDT Office Visit Cardiology at [address] [address] Nathaniel Keita MD [facility] [place] [place] [address] documented as of this encounter Procedures Procedure Name Priority Date/Time Associated Diagnosis Comments HEMOGLOBIN A1C STAT 10/09/2012 10:01 AM EDT 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 Estimated Average Glucose 209 mg/dL [facility] Comment: eAG equivalents for HbA1c [...] into estimated average glucose values. ??Diabetes Care 2008:31(8):1733-0737. 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
--- OUTSIDE RECORDS SUMMARY | 2024-04-24 21:29 | XMS_ITS | Encounter Summary ---
Author Organization [facility] [place] [address] Care Team Providers Care Patrol Man Name Role Phone Neva Pugh MD Primary Care Provider [phone] Reason for Visit * Reason Comments Medication Refill Encounter Details Date Type Department Care Team (Late st Contact Info) Description 01/11/2012 [place] [address] Elisha Nichols MD Social History Tobacco Use [...] AM EST Office Visit Cardiology at [address] [address] Ruben Hartman, PA [facility] [place] [address] 04/26/2024 10:00 AM EST Hospital Encounter Non-Invasive Cardiology Lab [facility] [place] [address] Arrived 09/24/2024 4:00 PM EDT Office Visit Cardiology at [address] [place] [address] Nathaniel Keita MD [facility] [place] [address] documented as of this encounter Visit Diagnoses Not on filedocumented in this encounter Care Teams Patrol Man Relationship Specialty Start Date End Date Neva Pugh MD [address] [place] [address] PCP - General 02/24/10 04/05/12 documented as of this encounter
--- OUTSIDE RECORDS SUMMARY | 2024-04-24 21:29 | XMS_ITS | Encounter Summary ---
[place] [address] Care Team Providers Care Care Companion Name Role Phone Neva Pugh MD Primary Care Provider [phone] Reason for Visit * Reason Comments Atrial Fibrillation Encounter Details Date Type Department Care Team (Late st Contact Info) Description 01/25/2011 12:40 PM EDT Follow-Up Cardiology at [address] [phone] Candie Valiente PA Ventricular fibrillation (Primary Dx) Discharge Disposition: Home [...] arrest. She has no device related complaints. [place] dizzy over the summer. Her deputy general counsel, Milind Beasley,changed her lasix to PRN and [...] - 07/02/2009 Medtronic John II VR Model# [id number], Serial# [id number] ??? CHD, s/p arrest and 2v CABG [...] Medtronic Sprint Quattro Model# 6947-58 cm Serial #[id number] Bipolar, steroid-tipped, active-fixation IS-1, DF-1 lead Access: Left axillary vein Location: Right ventricular apex R wave, ICD: 8.0 mV Pacing threshold, ICD: 1.0 V at 0.5 ms Impedance, ICD: 532 ohms HVB Impedance 33 ohms SVC Impedance 39 ohms Pace the diaphragm at 10 V: No Pulse generator: Medtronic John II VR Model# [id number] Serial# [id number] Single-chamber ICD Location: Subcutaneous Parameters: VF detection rate: >200bpm VF therapy: ATP during charging,30J,35Jx5 FVT detection rate: 200-250bpm FVT therapy: Burst(1),30J,35Jx4 VT detection rate:182-200bpm VT therapy:Burst(3),20J,35Jx4 Enhancement: Wavelet, VT Monitor Bradycardia pacing: VVI 40 Short V-V intervals: 0 Pacing percentages: VS 100% Histogram is well distributed. Underlying rhythm: SR 80bpm MA 200ms (pt states this is normal for [...] July 2011. Provider: Candie Valiente Provider #: [id number] Consult attending physician: Norm Garcia MD documented in this encounter Plan of Treatment Upcoming Encounters Date Type Department Care Team (Late st Contact Info) Description 04/25/2024 11:30 AM EST Office Visit Cardiology at [address] [phone] Ruben Hartman PA [facility] [place] [address] 04/26/2024 10:00 AM EST Hospital Encounter Non-Invasive Cardiology Lab [facility] [place] [address] Arrived 09/24/2024 4:00 PM EDT Office Visit Cardiology at [address] [place] [address] Nathaniel Keita MD [facility] [place] [address] documented as of this encounter Visit Diagnoses Diagnosis Ventricular fibrillation- Primary documented in this encounter Care Teams Care Companion Relationship Specialty Start Date End Date Neva Pugh MD [address] [place] [address] PCP - General 02/24/10 04/05/12 documented as of this encounter
--- OUTSIDE RECORDS SUMMARY | 2024-04-24 21:29 | XMS_ITS | Encounter Summary ---
[place] [address] Care Team Providers Care Arch Support Technician Name Role Phone Neva Field MD Primary Care Provider [phone] Reason for Visit * Reason Comments Follow-up Encounter Details Date Type Department Care Team (Late st Contact Info) Description 12/21/2010 10:10 AM EDT Follow-Up Cardiology at [address] [address] Milind Quezada MD [facility] [place] [address] Coronary artery disease; History of sudden cardiac [...] Quezada MD - 12/21/2010 12:02 PM EDT [facility] Cardiology Office Visit ID/PMH: The patient is a 65 y.o. followed by NEVA FIELD MD with the following medical problems: Patient Active Problem List Diagnoses ??? Ventricular fibrillation 06/21/2009 [facility]--- VF presenting, ROSC post shock by EMS, intubated; Dual chamber ICD - 07/02/2009 Medtronic John II VR Model# [id number], Serial# [id number] ??? CHD, s/p arrest and 2v CABG [...] This be done by Dr. Jon in [facility] She asks about the advisability of epidural spinal injections which she would pursue at [facility]. She's hadno bleeding problems. Review of Systems: [...] mouth nightly. 90 tablet 3 ??? Insulin [place], Disposable, (BD INSULIN PEN NEEDLE UF SHORT) 31 X 5/16 Ndle by [facility]Non-Drug; Combo Route) route. ??? SUBCUTANEOUS INSULIN PUMP (INSULIN PUMP [id number] [facility]) by [facility].(Non-Drug; Combo Route) route. ??? aspirin 81 mg [...] AM EST Office Visit Cardiology at [address] [place] [address] Ruben Hartman PA [facility] [place] [address] 04/26/2024 10:00 AM EST Hospital Encounter Non-Invasive Cardiology Lab [facility] [place] [phone] Arrived 09/24/2024 4:00 PM EDT Office Visit Cardiology at [address] [place] [address] Nathaniel Keita MD [facility] [place] [address] documented as of this encounter Visit Diagnoses Diagnosis Coronary artery disease Coronary atherosclerosis of unspecified type of vessel, [place] or graft History of sudden cardiac arrest Personal history of sudden cardiac arrest Ventricular fibrillation documented in this encounter Care Teams Arch Support Technician Relationship Specialty Start Date End Date Neva Field MD [address] [place] [address] PCP - General 02/24/10 04/05/12 documented as of this encounter
--- OUTSIDE RECORDS SUMMARY | 2024-04-24 21:29 | XMS_ITS | Encounter Summary ---
[place] [address] Care Team Providers Care Conveyor Line Bakery Worker Name Role Phone Neva Pugh MD Primary Care Provider [phone] Reason for Visit * Reason Comments Cardiomyopathy ICD interrogation Encounter Details Date Type Department Care Team (Late st Contact Info) Description 01/06/2012 8:45 AM EDT Follow-Up Cardiology at [address] [phone] Thaddeus Cespedes RN Cardiac arrest - ventricular [...] Medtronic Sprint Quattro Model# 6947-58 cm Serial #[id number] Bipolar, steroid-tipped, active-fixation IS-1, DF-1 lead Access: Left axillary vein Location: Right ventricular apex R wave, ICD: 8.0 mV Pacing threshold, ICD: 1.0 V at 0.5 ms Impedance, ICD: 532 ohms HVB Impedance 33 ohms SVC Impedance 39 ohms Pace the diaphragm at 10 V: No Pulse generator: Medtronic John II VR Model# [id number] Serial# [id number] Single-chamber ICD Location: Subcutaneous Parameters: VF detection rate: >200 bpm VF therapy: ATP during charging, 30J, 35J x 5 FVT detection rate: via VF 250 bpm FVT therapy: Burst(1), 30J, 35J x 4 VT detection rate:182 bpm VT therapy: Burst(3), 20J, 35J x 4 Enhancement: Wavelet, VT Monitor Bradycardia pacing: VVI 40 Follow-up Battery status: 3.12 V CONTROLS PROJECT ENGINEER: 2.63 V Charge time: 8.3 sec 01/01/2012 [...] AM EST Office Visit Cardiology at [address] [address] Ruben Hartman PA [facility] [place] [address] 04/26/2024 10:00 AM EST Hospital Encounter Non-[place] [address] Arrived 09/24/2024 4:00 PM EDT Office Visit Cardiology at [address] [address] Nathaniel Keita MD [facility] [place] [address] documented as of this encounter Visit Diagnoses Diagnosis Cardiac arrest - ventricular fibrillation- Primary Ventricular fibrillation documented in this encounter Care Teams Conveyor Line Bakery Worker Relationship Specialty Start Date End Date Neva Pugh MD [address] [place] [address] PCP - General 02/24/10 04/05/12 documented as of this encounter
--- OUTSIDE RECORDS SUMMARY | 2024-04-24 21:29 | XMS_ITS | Encounter Summary ---
[place] [address] Care Team Providers Care Communications Writer Name Role Phone Neva Pugh MD Primary Care Provider [phone] Encounter Details Date Type Department Care Team (Late st Contact Info) Description 08/05/2011 External Results [place] [address] Neva Pugh MD [address] [place] [id number] Social History Tobacco Use Types Packs/Day Years [...] AM EST Office Visit Cardiology at [address] [place] [address] Ruben Hartman, PA [facility] [place] [address] 04/26/2024 10:00 AM EST Hospital Encounter Non-Invasive Cardiology Lab [facility] [place] [address] Arrived 09/24/2024 4:00 PM EDT Office Visit Cardiology at [address] [place] [address] Nathaniel Keita MD [facility] [place] [address] documented as of this encounter Procedures Procedure Name Priority Date/Time Associated Diagnosis Comments EP DEVICE SCAN Routine 07/20/2011 documented in this encounter Results * Scan Doc: EP Device (07/20/2011) Anatomical Region Laterality Modality Other Neva Pugh MD MEDIA MGR SCAN EXT O RDR/RSLT documented in this encounter Visit Diagnoses Not on filedocumented in this encounter Care Teams Communications Writer Relationship Specialty Start Date End Date Neva Pugh MD [address] [place] [address] PCP - General 02/24/10 04/05/12 documented as of this encounter
--- OUTSIDE RECORDS SUMMARY | 2024-04-24 21:29 | XMS_ITS | Encounter Summary ---
Author Organization [facility] [place] [address] Care Team Providers Care Public Area Supervisor Name Role Phone Neva Pugh MD Primary Care Provider [phone] Reason for Visit * Reason Onset Date Comments Medication Refill 12/17/2010 Encounter Details Date Type Department Care Team (Late st Contact Info) Description 12/17/2010 [place] [address] Elisha Nichols MD Social History Tobacco Use [...] AM EST Office Visit Cardiology at [address] [phone] Ruben Hartman, PA [facility] [place] [address] 04/26/2024 10:00 AM EST Hospital Encounter Non-Invasive Cardiology Lab [facility] [place] [address] Arrived 09/24/2024 4:00 PM EDT Office Visit Cardiology at [address] [place] [phone] Nathaniel Keita MD [facility] [place] [address] documented as of this encounter Visit Diagnoses Not on filedocumented in this encounter Care Teams Public Area Supervisor Relationship Specialty Start Date End Date Neva Pugh MD [address] [place] [address] PCP - General 02/24/10 04/05/12 documented as of this encounter
--- OUTSIDE RECORDS SUMMARY | 2024-04-24 21:29 | XMS_ITS | Encounter Summary ---
[place] [address] Care Team Providers Care Business Process Associate Name Role Phone Neva Pugh MD Primary Care Provider [phone] Encounter Details Date Type Department Care Team (Latest Contact Info) Description 01/06/2012 12:46 PM EDT - 01/06/2012 11:59 PM EDT Hospital Encounter Non[place] [phone] CARDIO, ECHO SIXTY MIN APPT None Milind Beasley MD [facility] [place] [address] Fatigue Discharge Disposition: Home Social History Tobacco [...] 01/06/2012 06/19/2012 Diabetic Supplies, Miscellan. Misc by [facility].(Non-Drug; Combo Route) route. Insulin Pump Supplies and Diabetes Testing Supplies. Pt. Tests BS 4x/day. 90 day supply. Manually faxed to [address] @[phone]. 12/13/2011 02/22/2013 simvastatin (ZOCOR) 20 mg tabletIndications:H [...] (ACCU-CHEK COMPACT TEST) Strp 6 strips by [facility].(Non-Drug; Combo Route) route 6 times daily. 4-6 times daily 6 Box 3 03/15/2011 05/08/2013 insulin aspart (NOVOLOG) 100 unit/mL vial injection Inject 50-60 Units subcutaneously daily. 60 mL PRN 12/29/2010 01/11/2012 Insulin [place], Disposable, (BD INSULIN PEN NEEDLE UF SHORT) 31 X 5/16 Ndle by [facility].(Non-Drug; Combo Route) route. 03/31/2017 SUBCUTANEOUS INSULIN PUMP (INSULIN PUMP [id number] [facility]) by [facility].(Non-Drug; Combo Route) route. 03/31/2017 acetaminophen (TYLENOL) 325 [...] AM EST Office Visit Cardiology at [address] [address] Ruben Hartman PA [facility] [place] [address] 04/26/2024 10:00 AM EST Hospital Encounter Non-[place] [address] Arrived 09/24/2024 4:00 PM EDT Office Visit Cardiology at [address] [phone] Nathaniel Keita MD [facility] [place] [address] documented as of this encounter Procedures Procedure Name Priority Date/Time Associated Diagnosis Comments ECHOCARDIOGRAM TRANSTHORACIC Routine 01/06/2012 2:30 PM EDT Fatigue documented in this encounter Results * Echo Transthoracic (Complete) (01/06/2012 2:30 PM EDT) EF 60 HEARTLAB SYSTEM Anatomical Region Laterality Modality Other 01/06/2012 Narrative 01/06/2012 2:42 PM EDT Procedure: ? Transthoracic Echocardiogram Patient: ? KAN Tyler ? (Age): 1945(66) Med Rec#: ?[id number] ? Sex: ?F ? Site Loc: ?[facility] ? Ht / Wt: ??172(cm)/91(kg) Pt. Loc: ? Echo Lab ? BSA: ?2.09 Study Date: ?01/06/2012 ? Pt. Type: Outpatient Tape: ? Referring: Milind Beasley ([id number]) Airplane Dispatcher: Erendira Keller RDCS Diagnosis: ??CAD, unspecified (414.4) ??Fatigue (780.79) CPT Code(s): ??Echo Full (09399), ??Spectral Doppler (10705), ??Color Doppler (88276), ??Definity (40789XJ), Indication(s): ??Fatigue Rhythm: HR ?BP 85 ?145/80 [...] ? Mid-Inferior ?Normal ? Mid-Inferoseptal ?Normal ? [place]-Septal ? Normal ? [place]-Anterior ? Normal ? [place]-Lateral ?Normal ? [place]-Inferior ? Normal ? [place]-Tip ?Normal ? Chambers ?Value ?Units (Range) ? [...] Valves ?Value ?Units (Range) ? TR peak mrago ? 2.9 ?m/sec ? RAP ? 3 ?mmHg ? RVSP/PASP ? 37 ? mmHg ? This report has been electronically signed by: Alexander Abernathy M.D. ? 01/06/2012 14:41:31 Images reviewed and interpretation verified [facility] Cardiac Ultrasound Laboratory Procedure Note Alexander Abernathy MD - 01/06/2012 Procedure: Transthoracic Echocardiogram Patient: KAN MATHIS(Age): 1945(66) Med Rec#: [id number] Sex: F Site Loc: [facility] Ht / Wt: 172(cm)/91(kg) Pt. Loc: Echo Lab BSA: 2.09 Study Date: 01/06/2012 Pt. Type: Outpatient Tape: Referring: Milind Beasley ([id number]) Airplane Dispatcher: Erendira Keller [facility] Diagnosis: CAD, unspecified (414.4) Fatigue (780.79) CPT Code(s): Echo Full (82828), Spectral Doppler (22424), Color Doppler (57013), Definity (31340XB), Indication(s): Fatigue Rhythm: HR BP 85 145/80 [...] Normal Mid-Posterolateral Normal Mid-Inferior Normal Mid-Inferoseptal Normal [place]-Septal Normal [place]-Anterior Normal [place]-Lateral Normal [place]-Inferior Normal [place]-Tip Normal Chambers Value Units (Range) LV EF [...] 01/06/2012 14:41:31 Images reviewed and interpretation verified [facility] Cardiac Ultrasound Laboratory Milind Beasley MD ECHO [...] mLs documented in this encounter Care Teams Business Process Associate Relationship Specialty Start Date End Date Neva Pugh MD [address] [place] [address] PCP - General 02/24/10 04/05/12 documented as of this encounter
--- OUTSIDE RECORDS SUMMARY | 2024-04-24 21:29 | XMS_ITS | Encounter Summary ---
Author Organization [facility] [place] [address] Care Team Providers Care Real Estate Office Supervisor Name Role Phone Neva Pugh MD Primary Care Provider [phone] Reason for Visit * Reason Onset Date Comments Medication Refill 01/20/2012 Encounter Details Date Type Department Care Team (Late st Contact Info) Description 01/20/2012 [place] [address] Elisha Nichols MD Social History Tobacco Use [...] AM EST Office Visit Cardiology at [address] [phone] Ruben Hartman, PA [facility] [place] [address] 04/26/2024 10:00 AM EST Hospital Encounter Non-Invasive Cardiology [place] [address] Arrived 09/24/2024 4:00 PM EDT Office Visit Cardiology at [address] [place] [phone] Nathaniel Keita MD [facility] [place] [address] documented as of this encounter Visit Diagnoses Not on filedocumented in this encounter Care Teams Real Estate Office Supervisor Relationship Specialty Start Date End Date Neva Pugh MD [address] [place] [address] PCP - General 02/24/10 04/05/12 documented as of this encounter
--- OUTSIDE RECORDS SUMMARY | 2024-04-24 21:29 | XMS_ITS | Encounter Summary ---
[place] [address] Care Team Providers Care Mirror Fabrication Supervisor Name Role Phone Neva Pugh MD Primary Care Provider [phone] Reason for Visit * Reason Comments Diabetes Encounter Details Date Type Department Care Team (Late st Contact Info) Description 12/02/2011 2:30 PM EDT Office [place] [phone] Jaylin Salcido APRN Diabetes mellitus; Hyperlipidemia; Hypertension Discharge Disposition: Home [...] and Mood: Had a wonderful vacation in [place] with her . Eyes: No recent vision changes. No recent headaches, chest pain, or shortness of breath. No recent GI symptoms. Appetite is good. Sleep pattern has never been good most of her life. Extremities: Feet numbness, Charcot foot. Has podiatry care with Dr. King in [place]. 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 [place] [address] 04/26/2024 10:00 AM EST Hospital Encounter Non-Invasive Cardiology Lab Count Includes [facility] [place] [address] Arrived 09/24/2024 4:00 PM EDT Office Visit Cardiology at [address] [place] [address] Nathaniel Keita MD [facility] [place] [address] documented as of this encounter Procedures Procedure [...] Lab Chris Chatman MD HEMATOLOGY ORDERABLE S [facility] * (ABNORMAL) Hemoglobin A1c (04/06/2012 9:08 AM EST) Hemoglobin A1c 7.9(H) 4.3 - 6.1 % [facility] Estimated Average Glucose 180 mg/dL [facility] Comment: eAG equivalents for [...] into estimated average glucose values. ??Diabetes Care 2008:31(8):7160-9723. Blood specimen (specimen) 04/06/2012 9:08 AM EST 04/06/2012 9:10 AM EST Narrative Resulting Agency Comment Spec In Lab Chris Chatman MD CHEMISTRY ORDERABLES [facility] * (ABNORMAL) Comprehensive metabolic panel (non-fasting) (04/06/2012 9:08 AM EST) Glucose 252(H) 60 - 199 mg/dL [facility] Comment:Diabetes: >=200 mg/d L plus symptoms Blood Urea Nitrogen 23(H) 8 - 18 mg/dL [facility] Creatinine 1.63(H) 0.70 - 1.20 mg/dL [facility] Comment: Please note that the pediatric reference intervals supplied above were not validated at [facility]. Results from pediatric patients should be interpreted [...] Lab Chris Chatman MD CHEMISTRY ORDERABLES [facility] * (ABNORMAL) LDL Cholesterol, Direct (12/02/2011 2:20 PM EDT) LDL Cholesterol, Direct 132(H) <=99 mg/dL [facility] Comment: The National Cholesterol Education Program (NCEP) has set the following guidelines for LDL Cholesterol: Reference range: ?? Optimal: ?<100 mg/dL ?? Near Optimal/Above Optimal: ?? 100-129 mg/dL ?? Borderline high: ?130-159 mg/dL ?? High: ? 160-189 mg/dL ?? Very high: ?>lo=354 mg/dL REJI 2001: 285(07):5685-9649 Blood specimen (specimen) 12/02/2011 2:20 PM EDT 12/02/2011 2:38 PM EDT Narrative Resulting Agency Comment Spec In Lab Chris Chatman MD CHEMISTRY ORDERABLES Performing Organization Address [facility] de Phone Number [facility] * TSH (12/02/2011 2:20 PM EDT) Thyroid Stimulating Hormone 0.78 0.27 - 4.20 mcIU/mL [facility] Blood specimen (specimen) 12/02/2011 2:20 PM EDT 12/02/2011 2:38 PM EDT Narrative Resulting Agency Comment Spec In Lab Chris Chatman MD CHEMISTRY ORDERABLES Performing Organization Address [facility] de Phone Number [facility] * (ABNORMAL) Hemoglobin A1c (12/02/2011 2:20 PM EDT) Hemoglobin A1c 8.0(H) 4.3 - 6.1 % [facility] Estimated Average Glucose 183 mg/dL [facility] Comment: eAG equivalents for [...] into estimated average glucose values. ??Diabetes Care 2008:31(8):2868-5328. Blood specimen (specimen) 12/02/2011 2:20 PM EDT 12/02/2011 2:38 PM EDT Narrative Resulting Agency Comment Spec In Lab Chris Chatman MD CHEMISTRY ORDERABLES [facility] * (ABNORMAL) Comprehensive metabolic panel (non-fasting) (12/02/2011 2:20 PM EDT) [facility] Glucose 110 60 - 199 mg/dL [facility] Comment:Diabetes: >=200 mg/d L plus symptoms Blood Urea Nitrogen 21(H) 8 - 18 mg/dL [facility] Creatinine 1.11 0.70 - 1.20 mg/dL [facility] Comment: Please note that the pediatric reference intervals supplied above were not validated at [facility]. Results from pediatric patients should be interpreted [...] Lab Chris Chatman MD CHEMISTRY ORDERABLES [facility] documented in this encounter Visit Diagnoses Diagnosis Diabetes mellitus Type II or unspecified type diabetes mellitus without mention of complication, not stated as uncontrolled Hyperlipidemia Other and unspecified hyperlipidemia Hypertension Unspecified essential hypertension documented in this encounter Care Teams Mirror Fabrication Supervisor Relationship Specialty Start Date End Date Neva Pugh MD [address] [place] [address] PCP - General 02/24/10 04/05/12 documented as of this encounter
--- OUTSIDE RECORDS SUMMARY | 2024-04-24 21:29 | XMS_ITS | Encounter Summary ---
[place] [address] Care Team Providers Care Scene Painter Name Role Phone Alexander Adams MD Primary Care Provider [phone] Reason for Visit * Reason Onset Date Comments Medication Refill 06/19/2012 Encounter Details Date Type Department Care Team (Late st Contact Info) Description 06/19/2012 [place] [phone] Elisha Nichols MD Hypertension (Primary Dx) Social History Tobacco Use [...] 11:30 AM EST Office Visit Cardiology at [address] [place] [phone] Ruben Hartman, PA [facility] [place] [address] 04/26/2024 10:00 AM EST Hospital Encounter Non-Invasive Cardiology Lab [facility] [place] [address] Arrived 09/24/2024 4:00 PM EDT Office Visit Cardiology at [address] [place] [phone] Nathaniel Keita MD [facility] [place] [address] documented as of this encounter Visit Diagnoses Diagnosis Hypertension- Primary Unspecified essential hypertension documented in this encounter Care Teams Scene Painter Relationship Specialty Start Date End Date Alexander Adams MD [address] [place] [address] PCP - General 04/06/12 07/26/23 documented as of this encounter
--- OUTSIDE RECORDS SUMMARY | 2024-04-24 21:29 | XMS_ITS | Encounter Summary ---
[place] [address] Care Team Providers Care Bicycle Designer Name Role Phone Neva Pugh MD Primary Care Provider [phone] Reason for Visit * Reason Comments Diabetes 18 months check for PDR OU. Pt thinks that VA OU is stable, no complaints. Encounter Details Date Type Department Care Team (Late st Contact Info) Description 12/10/2010 3:00 PM EDT [place] [phone] Melissa Cleary MD PDR (proliferative diabetic retinopathy) [...] 3:00 PM EDT >> MELISSA CLEARY MD [facility] Dec 10, 2010 5:01 PM No change in vision OU. >> MARIA GUADALUPE IVORY [facility] Dec 10, 2010 3:52 PM Description:Patient [...] AM EST Office Visit Cardiology at [address] [address] Ruben Hartman PA [facility] [place] [address] 04/26/2024 10:00 AM EST Hospital Encounter [place] [address] Arrived 09/24/2024 4:00 PM EDT Office Visit Cardiology at [address] [address] Nathaniel Keita MD [facility] [place] [address] documented as of this encounter Visit Diagnoses Diagnosis PDR (proliferative diabetic retinopathy)- Primary Type II or unspecified type diabetes mellitus with ophthalmic manifestations, not stated as uncontrolled documented in this encounter Care Teams Bicycle Designer Relationship Specialty Start Date End Date Neva Pugh MD [address] [place] [address] PCP - General 02/24/10 04/05/12 documented as of this encounter
--- OUTSIDE RECORDS SUMMARY | 2024-04-24 21:29 | XMS_ITS | Encounter Summary ---
[place] [address] Care Team Providers Care Roll On Man Name Role Phone Neva Pugh MD Primary Care Provider [phone] Encounter Details Date Type Department Care Team (Late st Contact Info) Description 01/05/2012 [place] [address] Melissa Cleary MD Social History Tobacco Use [...] 11:30 AM EST Office Visit Cardiology at [address] [phone] Ruben Hartman, LAURA [facility] [place] [address] 04/26/2024 10:00 AM EST Hospital Encounter Non-Invasive Cardiology Lab [facility] [place] [address] Arrived 09/24/2024 4:00 PM EDT Office Visit Cardiology at [address] [place] [address] Nathaniel Keita MD [facility] [place] [address] documented as of this encounter Visit Diagnoses Not on filedocumented in this encounter Care Teams Roll On Man Relationship Specialty Start Date End Date Neva Pugh MD [address] [place] [address] PCP - General 02/24/10 04/05/12 documented as of this encounter
--- OUTSIDE RECORDS SUMMARY | 2024-04-24 21:29 | XMS_ITS | Encounter Summary ---
Author Organization [facility] [place] [address] Care Team Providers Care Advertising Account Manager Name Role Phone Neva Pugh MD Primary Care Provider [phone] Reason for Visit * Reason Onset Date Comments Medication Refill 12/29/2010 Encounter Details Date Type Department Care Team (Late st Contact Info) Description 12/29/2010 [place] [address] Elisha Nichols MD Social History Tobacco Use [...] 11:30 AM EST Office Visit Cardiology at [address] [phone] Ruben Hartman, PA [facility] [place] [address] 04/26/2024 10:00 AM EST Hospital Encounter Non-Invasive Cardiology Lab [facility] [place] [address] Arrived 09/24/2024 4:00 PM EDT Office Visit Cardiology at [address] [place] [address] Nathaniel Keita MD [facility] [place] [address] documented as of this encounter Visit Diagnoses Not on filedocumented in this encounter Care Teams Advertising Account Manager Relationship Specialty Start Date End Date Neva Pugh MD [address] [place] [address] PCP - General 02/24/10 04/05/12 documented as of this encounter
--- OUTSIDE RECORDS SUMMARY | 2024-04-24 21:30 | XMS_ITS | Encounter Summary ---
Author Organization [facility] Address [address] [place] [address] Care Team Providers Care Boilerhouse Mechanic Name Role Phone Alexander Adams MD Primary Care Provider Encounter Details Date Type Department Care Team ([facility] st Contact Info) Description 11/22/2014 Results Only [facility] [phone] Kan King, DPNayeli [address] [place] [phone] Social History Tobacco Use Types Packs/Day [...] ? LIANE OMER ? Accession #: ? [id number] ? : ? 1945 (Age: 69) ??F [...] only. 11/25/2014 9:25 AM End of Report [facility] 11/22/2014 8:39 EDT 11/22/2014 8:39 EDT us Kan King DPM PATHOLOGY ORDERABLES Fin al Result Performing Organization Address City/State/[facility] Co de Phone Number [facility] [address] [place] [address] documented in this encounter Visit Diagnoses Not on filedocumented in this encounter Care Teams Boilerhouse Mechanic Relationship Specialty Start Date End Date Alexander Adams MD [address] [place] [address] PCP - General 10/23/12 documented as of this encounter
--- OUTSIDE RECORDS SUMMARY | 2024-04-24 21:30 | XMS_ITS | Encounter Summary ---
Author Organization [facility] Address [address] [place] [address] Care Team Providers Care Global Ceo Name Role Phone Alexander Adams MD Primary Care Provider [phone] Encounter Details Date Type Department Care Team (Late st Contact Info) Description 11/13/2020 Lab Requisition [facility]ology & [facility] - [facility] [address] [place] [address] Domenico Perez MD [address] [place] [address] Encounter for other general examination Social [...] Name Priority Date/Time Associated Diagnosis Comments NON TREATMENT MANAGER/FNA CYTOLOGY Today 11/12/2020 8:30 EDT Encounter for other general examination documented in this encounter Results * NON TREATMENT MANAGER/FNA CYTOLOGY (11/12/2020 8:30 EDT) Note to Patient The following pathology results have been interpreted by your pathologist and may be available to you before your health provider has had the opportunity to review them. Please allow time for your provider to receive these results and explore management options, if applicable. 11/13/2020 15:16 [facility] Final Diagnosis PAROTID, RIGHT MASS, FINE-NEEDLE ASPIRATION: - Nondiagnostic specimen. See comment. 11/13/2020 15:16 [facility] Diagnosis Comment The aspirate consists of blood and granular amorphous debris and extremely rare degenerated epithelioid cells that are difficult to further characterize. The scant cellularity precludes definitive diagnosis. 11/13/2020 15:16 [facility] Attestation By the signature below, the attending physician certifies that they have personally conducted a gross and/or microscopic examination of the described specimens and rendered or confirmed the above diagnosis. 11/13/2020 15:16 [facility] at 1516 Clinical History Right parotid mass. 11/13/2020 15:16 [facility] Gross Description A. One vial of CytoLyt was received and processed by selective cellular enhancement technique. 11/13/2020 15:16 [facility] Performing Lab [facility] 11/13/2020 15:16 [facility] Scanned Images 11/13/2020 15:16 [facility] Fine Needle Aspirate PAROTID GLAND STRUCTURE / Unknown 11/12/2020 8:30 EDT 11/13/2020 7:36 EDT us Domenico Perez MD PATHOLOGY ORDERABLES Final Resul t [facility] [address] [place] [address] documented in this encounter Visit Diagnoses Diagnosis Encounter for other general examination documented in this encounter Care Teams Global Ceo Relationship Specialty Start Date End Date Alexander Adams MD [address] [place] [address] PCP - General 10/23/12 documented as of this encounter
--- OUTSIDE RECORDS SUMMARY | 2024-04-24 21:30 | XMS_ITS | Encounter Summary ---
Author Organization [facility] Address [address] [place] [address] Care Team Providers Care Mathematical Physicist Name Role Phone Alexander Adams MD Primary Care Provider [phone] Encounter Details Date Type Department Care Team (Late st Contact Info) Description 06/27/2014 Results Only [facility] Laboratory Services - [facility] ([facility] [address] [place] [address] Esvin Hackett, [address] [facility] ,[facility] [address] [place], [place] [id number] Social History Tobacco Use Types Packs/Day Years [...] ? LIANE OMER ? Accession #: ? [id number] ? : ? 1945 (Age: 68) ??F [...] Document reviewed and electronically signed by: MARIUM LONGORIA MD Report ??Date: 06/28/2014 14:14 By the [...] Miller 06/27/2014 9:18 AM End of Report [facility] 06/26/2014 8:51 EDT 06/27/2014 8:51 EDT us Esvin Hackett DO PATHOLOGY ORDERABLES Fi nal Result [facility] [address] [place] [address] documented in this encounter Visit Diagnoses Not on filedocumented in this encounter Care Teams Mathematical Physicist Relationship Specialty Start Date End Date Alexander Adams MD [address] [place] [address] PCP - General 10/23/12 documented as of this encounter
--- OUTSIDE RECORDS SUMMARY | 2024-04-24 21:30 | XMS_ITS | Encounter Summary ---
Author Organization [facility] Address [address] [place] [address] Care Team Providers Care Applications Processor Name Role Phone Alexander Adams MD Primary Care Provider [phone] Encounter Details Date Type Department Care Team (Latest Contact Info) Description 06/26/2014 11:20 EDT - 06/26/2014 23:59 EDT Hospital Encounter [address] [address] Unknown, Provider, Discharge Disposition: Home or Self [...] on filedocumented in this encounter Care Teams Applications Processor Relationship Specialty Start Date End Date Alexander Adams MD [address] [place] [address] PCP - General 10/23/12 documented as of this encounter
--- OUTSIDE RECORDS SUMMARY | 2024-04-24 21:30 | XMS_ITS | Encounter Summary ---
[place] [address] Care Team Providers Care Hogshead Hooper Name Role Phone Neva Pugh MD Primary Care Provider [phone] Reason for Visit * Reason Comments Diabetes Encounter Details Date Type Department Care Team (Late st Contact Info) Description 07/20/2010 4:00 PM EDT Office [place] [phone] Jaylin Salcido APRN Diabetes; Hypertension Discharge Disposition: Home Social History [...] this encounter Progress Notes * Jaylin Salcido, COSMETIC ASSEMBLER - 07/20/2010 6:42 PM EDT DATE OF [...] of hypoglycemia. She will be traveling to [place] and to [place] later this year. She does a very [...] 11:30 AM EST Office Visit Cardiology at [address] [address] Ruben Hartman PA [facility] [place] [address] 04/26/2024 10:00 AM EST Hospital Encounter Non[place] [address] Arrived 09/24/2024 4:00 PM EDT Office Visit Cardiology at [address] [address] Nathaniel Keita MD [facility] [place] [address] documented as of this encounter Procedures Procedure Name Priority Date/Time Associated Diagnosis Comments LDL CHOLESTEROL, DIRECT Routine 07/20/2010 2:20 PM EDT Diabetes HEMOGLOBIN A1C Routine 07/20/2010 2:20 PM EDT Diabetes documented in this encounter Results * Vitamin D 25 hydroxy (10/19/2010 12:28 PM EDT) 25-Hydroxy D2 <4.0 ng/mL [facility] Comment: Test Performed by: [facility] [place] [address] Keyboard Specialist: Daniela Thakur, Ph.D. 25-Hydroxy D3 33 ng/mL [facility] Comment: Test Performed by: [place] [address] Keyboard Specialist: Daniela Thakur, Ph.D. Vitamin D Total 25 OH 33 ng/mL [facility] Comment: -- REFERENCE VALUE -- 25-HYDROXY D TOTAL (D2+D3) Optimum levels in the normal population are 25-80 Test Performed by: [place] [address] Keyboard Specialist: Daniela Thakur, Ph.D. Blood specimen (specimen) 10/19/2010 12:28 PM EDT 10/19/2010 1:09 PM EDT Chris Chatman MD CHEMISTRY ORDERABLES Performing Organization Address [facility] de Phone Number [facility] * TSH (10/19/2010 12:28 PM EDT) Pathologist [facility] Thyroid Stimulating Hormone 0.68 0.27 - 4.20 mcIU/mL [facility] Blood specimen (specimen) 10/19/2010 12:28 PM EDT 10/19/2010 12:34 PM EDT Chris Chatman MD CHEMISTRY ORDERABLES Performing Organization Address [facility] Co de Phone Number [facility] * (ABNORMAL) Basic metabolic panel (10/19/2010 12:28 PM EDT) Glucose 85 60 - 199 mg/dL [facility] Comment:Diabetes: >=200 mg/d L plus symptoms Blood [...] PM EDT Chris Chatman MD CHEMISTRY ORDERABLES [facility] * (ABNORMAL) Hemoglobin A1c (10/19/2010 12:28 PM [...] into estimated average glucose values. ??Diabetes Care 2008:31(8):2225-8621. Blood specimen (specimen) 10/19/2010 12:28 PM EDT 10/19/2010 12:34 PM EDT Chris Chatman MD CHEMISTRY ORDERABLES Performing Organization Address [facility] Co de Phone Number [facility] * (ABNORMAL) LDL cholesterol, direct (07/20/2010 2:20 PM EDT) LDL Cholesterol, Direct 113(H) <=99 mg/dL [facility] Comment: The National Cholesterol Education Program (NCEP) has set the following guidelines for LDL Cholesterol: Reference range: ?? Optimal: ?<100 mg/dL ?? Near Optimal/Above Optimal: ?? 100-129 mg/dL ?? Borderline high: ?130-159 mg/dL ?? High: ? 160-189 mg/dL ?? Very high: ?>kv=442 mg/dL REJI 2001: 285(40):9578-6816 Blood specimen (specimen) 07/20/2010 2:20 PM EDT [...] into estimated average glucose values. ??Diabetes Care 2008:31(8):9168-5086. Blood specimen (specimen) 07/20/2010 2:20 PM EDT 07/20/2010 2:24 PM EDT Chris Chatman MD CHEMISTRY ORDERABLES Performing Organization Address City/State/[facility] Co ut Phone Number [facility] documented in this encounter Visit Diagnoses Diagnosis Diabetes Type II or unspecified type diabetes mellitus without mention of complication, not stated as uncontrolled Hypertension Unspecified essential hypertension documented in this encounter Care Teams Hogshead Hooper Relationship Specialty Start Date End Date Neva Pugh MD [address] [place] [address] PCP - General 02/24/10 04/05/12 documented as of this encounter
--- OUTSIDE RECORDS SUMMARY | 2024-04-24 21:30 | XMS_ITS | Encounter Summary ---
Author Organization [facility] [place] [address] Care Team Providers Care Plate Roller Name Role Phone Neva Pugh MD Primary Care Provider [phone] Encounter Details Date Type Department Care Team (Late st Contact Info) Description 07/17/2010 Orders [place] [address] Jaylin Salcido APRN Social History Tobacco Use [...] AM EST Office Visit Cardiology at [address] [phone] Ruben Hartman, [facility] [place] [address] 04/26/2024 10:00 AM EST Hospital Encounter Non-[place]vasive [place] [address] Arrived 09/24/2024 4:00 PM EDT Office Visit Cardiology at [address] [place] [address] Nathaniel Keita MD [facility] [place] [place] [address] documented as of this encounter Visit Diagnoses Not on filedocumented in this encounter Care Teams Plate Roller Relationship Specialty Start Date End Date Neva Pugh MD [address] [place] [address] PCP - General 02/24/10 04/05/12 documented as of this encounter
--- OUTSIDE RECORDS SUMMARY | 2024-04-24 21:30 | XMS_ITS | Encounter Summary ---
Author Organization [facility] [place] [address] Care Team Providers Care Security Lead Name Role Phone Neva Pugh MD Primary Care Provider [phone] Reason for Visit * Reason Onset Date Comments Medication Refill 08/27/2010 Encounter Details Date Type Department Care Team (Late st Contact Info) Description 08/27/2010 Refill [place] [address] Elisha Nichols MD Social History Tobacco Use [...] AM EST Office Visit Cardiology at [address] [address] Ruben Hartman, PA [facility] [place] [address] 04/26/2024 10:00 AM EST Hospital Encounter Non-Invasive Cardiology Lab [facility] [place] [address] Arrived 09/24/2024 4:00 PM EDT Office Visit Cardiology at [address] [place] [address] Nathaniel Keita MD [facility] [place] [address] documented as of this encounter Visit Diagnoses Not on filedocumented in this encounter Care Teams Security Lead Relationship Specialty Start Date End Date Neva Pugh MD [address] [place] [address] PCP - General 02/24/10 04/05/12 documented as of this encounter
--- OUTSIDE RECORDS SUMMARY | 2024-04-24 21:30 | XMS_ITS | Referral Summary ---
Author Organization [facility] Address [address] [place] [address] Care Team Providers Care Value Stream Manager Name Role Phone Alexander Adams MD Primary Care Provider [phone] Social History Tobacco Use Types Packs/Day Years Used Date Smoking Tobacco: Never Assessed Comments Unknown Sex and Gender Information Value Date Recorded Sex Assigned at Female 12/22/2020 11:08 EDT Legal Sex Female 18:47 EST Gender Identity Female 12/22/2020 11:08 EDT Sexual Orientation Not on file Plan of Treatment Not on file Insurance [facility] [place] Care Teams Value Stream Manager Relationship Specialty Start Date End Date Alexander Adams MD [address] [place], [place] [id number] PCP - General 10/23/12
--- OUTSIDE RECORDS SUMMARY | 2024-04-24 21:30 | XMS_ITS | Encounter Summary ---
[place] [address] Care Team Providers Care Wood And Hardware Outfitter Name Role Phone Neva Pugh MD Primary Care Provider [phone] Encounter Details Date Type Department Care Team (Late st Contact Info) Description 03/24/2010 7:40 AM EST Follow-Up Cardiology at [address] [address] Milind Beasley MD [facility] [place] [address] Discharge Disposition: Home Social History Tobacco Use [...] AM EST Office Visit Cardiology at [address] [address] Ruben Hartman, PA [facility] [place] [place] [address] 04/26/2024 10:00 AM EST Hospital Encounter Non-Invasive Cardiology Lab [place] [address] Arrived 09/24/2024 4:00 PM EDT Office Visit Cardiology at [address] [place] [address] Nathaniel Keita MD [facility] [place] [address] documented as of this encounter Visit Diagnoses Not on filedocumented in this encounter Care Teams Wood And Hardware Outfitter Relationship Specialty Start Date End Date Neva Pugh MD [address] [place] [address] PCP - General 02/24/10 04/05/12 documented as of this encounter
--- OUTSIDE RECORDS SUMMARY | 2024-04-24 21:30 | XMS_ITS | Encounter Summary ---
Author Organization [facility] [place] [address] Care Team Providers Care Private Household Worker Name Role Phone Neva Pugh MD Primary Care Provider [phone] Reason for Visit * Reason Onset Date Comments Medication Refill 07/21/2010 Encounter Details Date Type Department Care Team (Late st Contact Info) Description 07/21/2010 Refill [place] [address] Jaylin Salcido APRN Hypertension Social History Tobacco Use Types Packs/Day [...] AM EST Office Visit Cardiology at [address] [address] Ruben Hartman, PA [facility] [place] [address] 04/26/2024 10:00 AM EST Hospital Encounter Non-Invasive Cardiology Lab [facility] [place] [address] Arrived 09/24/2024 4:00 PM EDT Office Visit Cardiology at [address] [place] [address] Nathaniel Keita MD [facility] [place] [address] documented as of this encounter Visit Diagnoses Diagnosis Hypertension Unspecified essential hypertension documented in this encounter Care Teams Private Household Worker Relationship Specialty Start Date End Date Neva Pugh MD [address] [place] [address] PCP - General 02/24/10 04/05/12 documented as of this encounter
--- OUTSIDE RECORDS SUMMARY | 2024-04-24 21:30 | XMS_ITS | Encounter Summary ---
Author Organization [facility] [place] [address] Care Team Providers Care Salesperson Corsets Name Role Phone Neva uPgh MD Primary Care Provider [phone] Encounter Details Date Type Department Care Team (Late st Contact Info) Description 03/24/2010 8:30 AM EST Office [place] [address] Jaylin Salcido, PERLA Discharge Disposition: Home Social History Tobacco Use [...] AM EST Office Visit Cardiology at [address] [place] [phone] Ruben Hartman PA [facility] [address] [place], [place] [address] 04/26/2024 10:00 AM EST Hospital Encounter Non-[place] [address] Arrived 09/24/2024 4:00 PM EDT Office Visit Cardiology at [address] [place] [address] Nathaniel Keita MD [facility] [place] [address] documented as of this encounter Visit Diagnoses Not on filedocumented in this encounter Care Teams Salesperson Corsets Relationship Specialty Start Date End Date Neva Pugh MD [address] [place] [address] PCP - General 02/24/10 04/05/12 documented as of this encounter
--- OUTSIDE RECORDS SUMMARY | 2024-04-24 21:30 | XMS_ITS | Encounter Summary ---
Author Organization [facility] Address [address] [place] [address] Care Team Providers Care Plastic Duplicator Name Role Phone Alexander Adams MD Primary Care Provider [phone] Encounter Details Date Type Department Care Team (Latest Contact Info) Description 11/22/2014 15:36 EDT - 11/22/2014 23:59 EDT Hospital Encounter [address] [address] Unknown, Provider, Discharge Disposition: Home or Self [...] Code Departure Means Destination Home or Self Intermediate documented in this encounter Plan of Treatment Not on file documented as of this encounter Visit Diagnoses Not on filedocumented in this encounter Care Teams Plastic Duplicator Relationship Specialty Start Date End Date Alexander Adams MD [address] [place] [address] PCP - General 10/23/12 documented as of this encounter
--- OUTSIDE RECORDS SUMMARY | 2024-04-24 21:30 | XMS_ITS | Encounter Summary ---
Author Organization [facility] Address [address] [place] [address] Care Team Providers Care Mold Burner Name Role Phone Alexander Adams MD Primary Care Provider [phone] Encounter Details Date Type Department Care Team (Latest Contact Info) Description 02/12/2015 11:29 EST - 02/12/2015 23:59 EST Hospital Encounter [address] [address] Unknown, Provider, Discharge Disposition: Home or Self [...] Code Departure Means Destination Home or Self Skilled Nursing documented in this encounter Plan of Treatment Not on file documented as of this encounter Visit Diagnoses Not on filedocumented in this encounter Care Teams Mold Burner Relationship Specialty Start Date End Date Alexander Adams MD [address] [place] [address] PCP - General 10/23/12 documented as of this encounter
--- OUTSIDE RECORDS SUMMARY | 2024-04-24 21:30 | XMS_ITS | Encounter Summary ---
Author Organization [facility] Address [address] [place] [address] Care Team Providers Care Supervisor Compounding And Finishing Name Role Phone Neva Pugh MD Primary Care Provider [phone] Encounter Details Date Type Department Care Team (Late st Contact Info) Description 10/20/2012 Results Only [facility] Laboratory Services - [facility] ([facility]) [address] [place] [address] Kan King, [facility] [address] [place] [address] Social History Tobacco Use Types [...] ? LIANE OMER ? Accession #: ? [id number] ? : ? 1945 (Age: 66) ??F [...] ORDERABLES Fin al Result Performing Organization Address City/State/[facility] Co de Phone Number [facility] [address] [place] [address] documented in this encounter Visit Diagnoses Not on filedocumented in this encounter Care Teams Supervisor Compounding And Finishing Relationship Specialty Start Date End Date Neva Pugh MD [address] [place] [address] PCP - General 03/12/09 10/22/12 documented as of this encounter
--- OUTSIDE RECORDS SUMMARY | 2024-04-24 21:30 | XMS_ITS | Encounter Summary ---
[place] [address] Care Team Providers Care Management Aide Name Role Phone Neva Pugh MD Primary Care Provider [phone] Reason for Visit * Reason Comments Diabetes Encounter Details Date Type Department Care Team (Late st Contact Info) Description 10/19/2010 12:00 PM EDT Office [place] [phone] Jaylin Salcido APRN Diabetes; Hypertension; Hyperlipidemia Discharge Disposition: Home Social [...] with Dr. King every three months in [facility]. PHYSICAL EXAMINATION: Appearance: She is [...] 11:30 AM EST Office Visit Cardiology at [address] [place] [phone] Ruben Hartman, LAURA [facility] [place] [address] 04/26/2024 10:00 AM EST Hospital Encounter [facility] [place] [address] Arrived 09/24/2024 4:00 PM EDT Office Visit Cardiology at [address] [place] [address] Natahniel Keita MD [facility] [place] [address] documented as of this encounter Procedures Procedure [...] AM EDT) Creatinine, Urine 20 mg/dL CE [facility]OL [facility] Albumin, Urine 4.8 mg/L JOSE Connor MILLENNIUM Albumin / Creatinin Ratio, Urine 24 mcg/mg Cr THOMPSON [facility] Comment: Reference Range* Random collection (mcg/mg creatinine) Normal ?<30 Microalbuminuria ?? 30 - 300 Clinical Albuminuria ?? >300 *[place] Diabetes Association. Diabetic Nephropathy. Diabetes Care 1997;(Suppl 1):S24-S27 Exercise within 24 hour, infection, fever, CHF, marked hyperglycemia, and marked hypertension may elevate urinary albumin excretion over baseline values. Urine specimen (specimen) 01/25/2011 11:13 AM EDT 01/25/2011 11:25 AM EDT Chris Chatman MD URINE ORDERABLES [facility] * (ABNORMAL) Hemoglobin A1c (01/25/2011 10:40 AM EDT) Hemoglobin A1c 7.9(H) 4.3 - 6.1 % [facility] Estimated Average Glucose 180 mg/dL [facility] Comment: eAG equivalents for HbA1c percentages: [...] into estimated average glucose values. ??Diabetes Care 2008:31(8):6434-0124. Blood specimen (specimen) 01/25/2011 10:40 AM EDT 01/25/2011 11:00 AM EDT Chris Chatman MD CHEMISTRY ORDERABLES [facility] * Vitamin D 25 hydroxy (10/19/2010 12:28 PM EDT) [facility] 25-Hydroxy D2 <4.0 ng/mL [facility] Comment: Test Performed by: Roe Roam[facility] [address], [place] [address] Wrapper And Preserver: Daniela Thakur, Ph.D. 25-Hydroxy D3 33 ng/mL [facility] Comment: Test Performed by: [facility] [place] [address] Wrapper And Preserver: Daniela Thakur, Ph.D. Vitamin D Total 25 OH 33 ng/mL [facility] Comment: -- REFERENCE VALUE -- 25-HYDROXY D TOTAL (D2+D3) Optimum levels in the normal population are 25-80 Test Performed by: [facility] [place] [address] Wrapper And Preserver: Daniela Thakur, Ph.D. Blood specimen (specimen) 10/19/2010 12:28 PM EDT 10/19/2010 1:09 PM EDT Chris Chatman MD CHEMISTRY ORDERABLES Performing Organization Address [facility] Co de Phone Number [facility] * TSH (10/19/2010 12:28 PM EDT) Thyroid Stimulating Hormone 0.68 0.27 - 4.20 mcIU/mL [facility] Blood specimen (specimen) 10/19/2010 12:28 PM EDT 10/19/2010 12:34 PM EDT Chris Chatman MD CHEMISTRY ORDERABLES Performing Organization Address [facility]/ZIP Co de Phone Number [facility] * (ABNORMAL) Basic metabolic panel (10/19/2010 12:28 PM EDT) Glucose 85 60 - 199 mg/dL [facility] MILLENNIUM Comment:Diabetes: >=200 mg/d L plus symptoms [...] PM EDT Chris Chatman MD CHEMISTRY ORDERABLES [facility] * (ABNORMAL) Hemoglobin A1c (10/19/2010 12:28 PM EDT) Hemoglobin A1c 8.2(H) 4.3 - 6.1 % C[facility]ER [facility] Estimated Average Glucose 189 mg/dL [facility] Comment: eAG equivalents for HbA1c percentages: [...] into estimated average glucose values. ??Diabetes Care 2008:31(8):9078-0364. Blood specimen (specimen) 10/19/2010 12:28 PM EDT 10/19/2010 12:34 PM EDT Chris Chatman MD CHEMISTRY ORDERABLES [facility] documented in this encounter Visit Diagnoses Diagnosis Diabetes Type II or unspecified type diabetes mellitus without mention of complication, not stated as uncontrolled Hypertension Unspecified essential hypertension Hyperlipidemia Other and unspecified hyperlipidemia documented in this encounter Care Teams Management Aide Relationship Specialty Start Date End Date Neva Pugh MD [address] [place] [address] PCP - General 02/24/10 04/05/12 documented as of this encounter
--- OUTSIDE RECORDS SUMMARY | 2024-04-24 21:30 | XMS_ITS | Encounter Summary ---
Author Organization [facility] [place] [address] Care Team Providers Care Flexographic Press Set Up Operator Name Role Phone Neva Pugh MD Primary Care Provider [phone] Encounter Details Date Type Department Care Team (Late st Contact Info) Description 03/24/2010 [place] [address] Jaylin Salcido APRN Social History Tobacco Use [...] AM EST Office Visit Cardiology at [address] [address] Ruben Hartman PA [facility] [place] [address] 04/26/2024 10:00 AM EST Hospital Encounter Non-[place] [address] Arrived 09/24/2024 4:00 PM EDT Office Visit Cardiology at [address] [place] [address] Nathaniel Keita MD [facility] [place] [address] documented as of this encounter Procedures Procedure [...] AM EST) Creatinine, Urine 149 mg/dL CE ERROL MILL[facility]NIUM Albumin, Urine 23.4 mg/L JOSE Connor MILLENNIUM Albumin / Creatinin Ratio, Urine 16 mcg/mg Cr [facility]ON [facility] Comment: Reference Range* Random collection (mcg/mg creatinine) Normal ?<30 Microalbuminuria ?? 30 - 300 Clinical Albuminuria ?? >300 *[place] Diabetes Association. Diabetic Nephropathy. Diabetes Care 1997;(Suppl 1):S24-S27 Exercise within 24 hour, infection, fever, CHF, marked hyperglycemia, and marked hypertension may elevate urinary albumin excretion over baseline values. Urine specimen (specimen) 03/24/2010 8:40 AM EST 03/24/2010 9:03 AM EST Jaylin Patito Deepthia ADVERTISEMENT COMPOSITOR URINE ORDERABLES Performing Organization Address [facility] de Phone Number [facility] * (ABNORMAL) HDL CHOLESTEROL (03/24/2010 7:41 AM EST) Cholesterol, Total 267(H) <=199 mg/dL [facility] Comment: Recommendations of the NCEP Adult Treatment Panel for the following risk cutoff thresholds for the [place] population: Desirable: <200 mg/dL Borderline High: 200-239 mg/dL High: > or = 240 mg/dL HDL Cholesterol 46 >=40 mg/dL CER NER MILLENNIUM Comment: Reference range: ??Low HDL: ?? < 40 mg/dL ??Normal: ?40-60 mg/dL ??Desirable: > 60 mg/dL REJI 2001; 285(19):8850-4404 Cholesterol/HDL Ratio 5.8 ratio CERNER MILLENNIUM Comment: A Cholesterol to HDL ratio below 4:1 is desirable. ??Studies suggest that increased CAD risk occurs at ratios above 5 for females and above 6 for men. ? [place] Heart Association ??(http://www.americanheart.org) ? Aurelia Int Med, 1994; 121:641 ? AM J Med, 1998; 105(1A):48S Blood specimen (specimen) 03/24/2010 7:41 AM EST 03/24/2010 7:55 AM EST Jaylin Salcido APRN CHEMISTRY ORDERABLE S Performing Organization Address [facility] de Phone Number [facility] * (ABNORMAL) LDL CHOLESTEROL, DIRECT (03/24/2010 7:41 AM EST) LDL Cholesterol, Direct 188(H) <=99 mg/dL CERNER EtactsENNIUM Comment: The National Cholesterol Education Program (NCEP) has set the following guidelines for LDL Cholesterol: Reference range: ?? Optimal: ?<100 mg/dL ?? Near Optimal/Above Optimal: ?? 100-129 mg/dL ?? Borderline high: ?130-159 mg/dL ?? High: ? 160-189 mg/dL ?? Very high: ?>zz=741 mg/dL REJI 2001: 285(92):1982-9454 Blood specimen (specimen) 03/24/2010 7:41 AM EST 03/24/2010 7:55 AM EST Jaylin Patito Omari ADVERTISEMENT COMPOSITOR CHEMISTRY ORDERABLE S [facility] * (ABNORMAL) BASIC METABOLIC PANEL (NON-FASTING) (03/24/2010 [...] 03/24/2010 7:55 AM EST Jaylin E Bilotta ADVERTISEMENT COMPOSITOR CHEMISTRY ORDERABLE S Performing Organization Address [facility] Co de Phone Number [facility] * ASPARTATE AMINOTRANSFERASE (03/24/2010 7:41 AM EST) Aspartate Aminotransferase 29 0 - 30 unit/L [facility] Blood specimen (specimen) 03/24/2010 7:41 AM EST 03/24/2010 7:55 AM EST Jaylin E Bilotta ADVERTISEMENT COMPOSITOR CHEMISTRY ORDERABLE S Performing Organization Address [facility] Co de Phone Number [facility] * ALANINE AMINOTRANSFERASE (03/24/2010 7:41 AM EST) Alanine Aminotransferase 30 0 - 30 unit/L [facility] Blood specimen (specimen) 03/24/2010 7:41 AM EST 03/24/2010 7:55 AM EST Jaylin Salcido ADVERTISEMENT COMPOSITOR CHEMISTRY ORDERABLE S [facility] * (ABNORMAL) HEMOGLOBIN A1C (03/24/2010 7:41 AM EST) Hemoglobin A1c 8.0(H) 4.3 - 6.1 % [facility] Estimated Average Glucose 183 mg/dL [facility] Comment: eAG equivalents for HbA1c percentages: [...] into estimated average glucose values. ??Diabetes Care 2008:31(8):1695-7913. Blood specimen (specimen) 03/24/2010 7:41 AM EST 03/24/2010 7:55 AM EST Jaylin E Bilotta ADVERTISEMENT COMPOSITOR CHEMISTRY ORDERABLE S [facility] * REFLEX LAB-A-DIFF (03/24/2010 7:41 AM EST) [...] 03/24/2010 7:55 AM EST Jaylin E Bilotta ADVERTISEMENT COMPOSITOR HEMATOLOGY ORDERABL ES [facility]OM[facility]ON TENA * CBC (03/24/2010 7:41 AM EST) White [...] AM EST 03/24/2010 7:55 AM EST Jaylin Laceya ADVERTISEMENT COMPOSITOR HEMATOLOGY ORDERABL ES [facility] TE[facility] documented in this encounter Visit Diagnoses Not on filedocumented in this encounter Care Teams Flexographic Press Set Up Operator Relationship Specialty Start Date End Date Neva Pugh MD [address] [place] [address] PCP - General 02/24/10 04/05/12 documented as of this encounter
--- OUTSIDE RECORDS SUMMARY | 2024-04-24 21:30 | XMS_ITS | Encounter Summary ---
[place] [address] Care Team Providers Care Pot Runner Name Role Phone Neva Pugh MD Primary Care Provider [phone] Reason for Visit * Reason Onset Date Comments Labs Only 07/04/2010 Encounter Details Date Type Department Care Team (Late st Contact Info) Description 07/04/2010 Telephone [place] [phone] Jaylin Salcido APRN Labs Only Social History Tobacco Use Types [...] AM EST Office Visit Cardiology at [address] [address] Ruben Hartman PA [facility] [place] [address] 04/26/2024 10:00 AM EST Hospital Encounter Non-Invasive Cardiology Lab [facility] [place] [address] Arrived 09/24/2024 4:00 PM EDT Office Visit Cardiology at [address] [phone] Nathaniel Keita MD [facility] [place] [address] documented as of this encounter Results * (ABNORMAL) LDL cholesterol, direct (07/20/2010 2:20 PM EDT) LDL Cholesterol, Direct 113(H) <=99 mg/dL [facility] Comment: The National Cholesterol Education Program (NCEP) has set the following guidelines for LDL Cholesterol: Reference range: ?? Optimal: ?<100 mg/dL ?? Near Optimal/Above Optimal: ?? 100-129 mg/dL ?? Borderline high: ?130-159 mg/dL ?? High: ? 160-189 mg/dL ?? Very high: ?>ts=412 mg/dL REJI 2001: 285(19):3559-4216 Blood specimen (specimen) 07/20/2010 2:20 PM EDT 07/20/2010 2:24 PM EDT Chris Chatman MD CHEMISTRY ORDERABLES [facility] * (ABNORMAL) Hemoglobin A1c (07/20/2010 2:20 PM EDT) Hemoglobin A1c 7.5(H) 4.3 - 6.1 % [facility] Estimated Average Glucose 169 mg/dL [facility] Comment: eAG equivalents for HbA1c percentages: [...] into estimated average glucose values. ??Diabetes Care 2008:31(8):7111-7734. Blood specimen (specimen) 07/20/2010 2:20 PM EDT 07/20/2010 2:24 PM EDT Chris Chatman MD CHEMISTRY ORDERABLES [facility] documented in this encounter Visit Diagnoses Diagnosis Diabetes- Primary Type II or unspecified type diabetes mellitus without mention of complication, not stated as uncontrolled documented in this encounter Care Teams Pot Runner Relationship Specialty Start Date End Date Neva Pugh MD [address] [place], [place] [address] PCP - General 02/24/10 04/05/12 documented as of this encounter
--- OUTSIDE RECORDS SUMMARY | 2024-04-24 21:30 | XMS_ITS | Clinical Summary ---
Author Organization [facility] Address [address] [place] [address] Care Team Providers Care Diamond Driller Helper Name Role Phone Alexander Adams MD Primary Care Provider [phone] Social History Tobacco Use Types Packs/Day Years [...] 10/31/2019 COVID-19 Vaccine ( season) 2023 Insurance [facility] [place] Care Teams Diamond Driller Helper Relationship Specialty Start Date End Date Alexander Adams MD [address] [place] [address] PCP - General 10/23/12
--- OUTSIDE RECORDS SUMMARY | 2024-04-24 21:30 | XMS_ITS | Encounter Summary ---
Author Organization [facility] Address [address] [place] [address] Care Team Providers Care Chief Of Field Operations Name Role Phone Alexander Adams MD Primary Care Provider [phone] Encounter Details Date Type Department Care Team (Late st Contact Info) Description 05/20/2021 Lab Requisition [facility] Pathology & Laboratory Medicine - [facility] [address] [place] [address] Domenico Perez MD [address] [place] [address] Encounter for other general examination Social [...] Name Priority Date/Time Associated Diagnosis Comments NON WAREHOUSE PACKAGING SUPERVISOR/FNA CYTOLOGY Today 05/19/2021 9:00 EST Encounter for other general examination documented in this encounter Results * NON WAREHOUSE PACKAGING SUPERVISOR/FNA CYTOLOGY (05/19/2021 9:00 EST) Note to Patient The following pathology results have been interpreted by your pathologist and may be available to you before your health provider has had the opportunity to review them. Please allow time for your provider to receive these results and explore management options, if applicable. 05/21/2021 13:17 [facility] Final Diagnosis A. PAROTID GLAND, RIGHT, MASS, FINE NEEDLE ASPIRATION: - Rare atypical cells. See comment. 05/21/2021 13:17 [facility] Diagnosis Comment Cytologic evaluation demonstrates a paucicellular specimen composed mostly of granular amorphous debris with rare degenerated epithelioid cells, histiocytes, and mixed inflammatory cells. The scant nature of the specimen precludes further characterization. Boiler Plant Operator slides of this case were reviewed at the intradepartmental consultation conference. 05/21/2021 13:17 [facility] Attestation There was significant resident/fellow involvement in the diagnostic evaluation of this case. By the signature below, the attending physician certifies that they have personally conducted a gross and/or microscopic examination of the described specimens and rendered or confirmed the above diagnosis. 05/21/2021 13:17 [facility] at [address] Clinical History Right parotid mass 05/21/2021 13:17 [facility] Gross Description A. One vial of CytoLyt was received and processed by selective cellular enhancement technique. 05/21/2021 13:17 [facility] Resident/Fell ow: Gayatri Ramsay MD 05/21/2021 13:17 [facility] Performing Lab [facility] 05/21/2021 13:17 [facility] Scanned Images 05/21/2021 13:17 [facility] Fine Needle Aspirate PAROTID GLAND STRUCTURE / Unknown 05/19/2021 9:00 EST 05/20/2021 6:44 EST us Domenico Perez MD PATHOLOGY ORDERABLES Final Resul t [facility] [address] [place] [address] documented in this encounter Visit Diagnoses Diagnosis Encounter for other general examination documented in this encounter Care Teams Chief Of Field Operations Relationship Specialty Start Date End Date Alexander Adams MD [address] [place] [address] PCP - General 10/23/12 documented as of this encounter
--- OUTSIDE RECORDS SUMMARY | 2024-04-24 21:30 | XMS_ITS | Encounter Summary ---
Author Organization [facility] Address [address] [place] [address] Care Team Providers Care Computer Hardware Technician Name Role Phone Neva Pugh MD Primary Care Provider Encounter Details Date Type Department Care Team (Late st Contact Info) Description 03/24/2012 Results Only [facility] Laboratory Services - [facility] ([facility]) [address] [place] [address] Esvin Hackett, [address] [facility] ,[facility] [address] [place], [place] [id number] Social History Tobacco Use Types Packs/Day Years [...] ? LIANE OMER ? Accession #: ? [id number] ? : ? 1945 (Age: 66) ??F [...] Fi nal Result [facility] [address] [place] [address] documented in this encounter Visit Diagnoses Not on filedocumented in this encounter Care Teams Computer Hardware Technician Relationship Specialty Start Date End Date Neva Pugh MD [address] [place] [address] PCP - General 03/12/09 10/22/12 documented as of this encounter
--- OUTSIDE RECORDS SUMMARY | 2024-04-24 21:30 | XMS_ITS | Encounter Summary ---
[place] [address] Care Team Providers Care Product Expert Name Role Phone Neva Pugh MD Primary Care Provider Reason for Visit * Reason Comments Pacemaker Problem rotary check Encounter Details Date Type Department Care Team (Late st Contact Info) Description 07/20/2010 2:40 PM EDT Follow-Up Cardiology at [address] [phone] Lauren Cook, RN Ventricular fibrillation (Primary Dx) [...] 3:31 PM EDT ICD Clinic Follow-up Ms. oCle is a 64 year old female who [...] Medtronic Sprint Quattro Model# 6947-58 cm Serial #[id number] Bipolar, steroid-tipped, active-fixation IS-1, DF-1 lead Access: Left axillary vein Location: Right ventricular apex R wave, ICD: 8.0 mV Pacing threshold, ICD: 1.0 V at 0.5 ms Impedance, ICD: 532 ohms HVB Impedance 33 ohms SVC Impedance 39 ohms Pace the diaphragm at 10 V: No Pulse generator: Medtronic John II VR Model# [id number] Serial# [id number] Single-chamber ICD Location: Subcutaneous Parameters: VF detection rate: >200bpm VF therapy: ATP during charging,30J,35Jx5 FVT detection rate: 200-250bpm FVT therapy: Burst(1),30J,35Jx4 VT detection rate:182-200bpm VT therapy:Burst(3),20J,35Jx4 Enhancement: Wavelet, VT Monitor Bradycardia pacing: VVI 40 Pacing percentages: VS 100% Histogram is well distributed. Underlying rhythm: SR 80bpm NC 200ms (pt states this is normal for [...] 2010 Provider: Lauren Cook, RN Provider #: [id number] Consult attending physician: Donavan De La O MD documented in this encounter Plan of Treatment Upcoming Encounters Date Type Department Care Team (Late st Contact Info) Description 04/25/2024 11:30 AM EST Office Visit Cardiology at [address] [address] Ruben Hartman PA [facility] [place] [address] 04/26/2024 10:00 AM EST Hospital Encounter Non-[place]vasive [place] [address] Arrived 09/24/2024 4:00 PM EDT Office Visit Cardiology at [address] [phone] Nathaniel Keita MD [facility] [place] [address] documented as of this encounter Visit Diagnoses Diagnosis Ventricular fibrillation- Primary documented in this encounter Care Teams Product Expert Relationship Specialty Start Date End Date Neva Pugh MD [address] [place] [address] PCP - General 02/24/10 04/05/12 documented as of this encounter
--- OUTSIDE RECORDS SUMMARY | 2024-04-24 21:30 | XMS_ITS | Encounter Summary ---
Author Organization [facility] Address [address] [place] [address] Care Team Providers Care Recycling Sorter Name Role Phone Alexander Adams MD Primary Care Provider [phone] Encounter Details Date Type Department Care Team ([facility] st Contact Info) Description 02/12/2015 Results Only [facility]- PRISM [phone] Kan King, DPNayeli [address] [place] [phone] Social History Tobacco Use Types Packs/Day [...] ? LIANE OMER ? Accession #: ? [id number] ? : ? 1945 (Age: 69) ??F [...] Banerjee 02/13/2015 12:06 PM End of Report [facility] 02/12/2015 19:5 1 EST 02/12/2015 19:51 EST us Kan King DPM PATHOLOGY ORDERABLES Fin al Result [facility] [address] [place] [address] documented in this encounter Visit Diagnoses Not on filedocumented in this encounter Care Teams Recycling Sorter Relationship Specialty Start Date End Date Alexander Adams MD [address] [place] [address] PCP - General 10/23/12 documented as of this encounter
--- OUTSIDE RECORDS SUMMARY | 2024-04-24 21:31 | XMS_ITS | Encounter Summary ---
Author Organization [facility] Address [address] [place] [address] Care Team Providers Care Solar Installation Supervisor Name Role Phone Neva Pugh MD Primary Care Provider [phone] Encounter Details Date Type Department Care Team (Late st Contact Info) Description 07/31/2010 Results Only [facility] - [facility] ([facility] [address] [place] [address] Kan King, [facility] [address] [place] [address] Social History Tobacco Use Types [...] KAN, LIANE Tyler ? Accession #: ? [id number] ? : ? 1945 (Age: 64) ??F [...] ??The specimen is longitudinally trisected and two instruments sales representative sections are submitted in one ?? cassette following decalcification. ??/adi ? End of Report ? [facility] 07/31/2010 07/31/2010 17: 53 EDT us Kan King DPM PATHOLOGY ORDERABLES Fin al Result Performing Organization Address City/State/[facility] Co de Phone Number [facility] [address] [place] [address] documented in this encounter Visit Diagnoses Not on filedocumented in this encounter Care Teams Solar Installation Supervisor Relationship Specialty Start Date End Date Neva Pugh MD [address] [place] [address] PCP - General 03/12/09 10/22/12 documented as of this encounter
--- OUTSIDE RECORDS SUMMARY | 2024-04-24 21:31 | XMS_ITS | Encounter Summary ---
Author Organization [facility] Address [address] [place] [address] Care Team Providers Care Analyst Geochemical Prospecting Name Role Phone Neva Pugh MD Primary Care Provider [phone] Encounter Details Date Type Department Care Team (Late st Contact Info) Description 03/02/2012 Results Only [facility] Laboratory Services - [facility] ([facility]) [address] [place] [address] Alexander Adams MD [address] [place], [place] [address] Social History Tobacco Use Types Packs/Day Years [...] ? LIANE OMER ? Accession #: ? [id number] ? : ? 1945 (Age: 66) ??F [...] lymphohistiocytic infiltrate in the superficial dermis. ??(Dr. Valentine)/[facility] Document reviewed and electronically signed by: SOLOMON [...] ORDERABLES Final Res ult [facility] [address] [place] [address] documented in this encounter Visit Diagnoses Not on filedocumented in this encounter Care Teams Analyst Geochemical Prospecting Relationship Specialty Start Date End Date Neva Pugh MD [address] [place] [id number] PCP - General 03/12/09 10/22/12 documented as of this encounter
[2024-04-24 21:40] LABS: Abs Immature Grans 0.03 10^3/uL (0.0-0.06); Absolute Basophil Count 0.04 10^3/uL (0.0-0.2); Absolute Eosinophil Count 0.31 10^3/uL (0.0-0.7); Absolute Lymphocyte Count 2.02 10^3/uL (1.2-3.4); Absolute Monocyte Count 0.53 10^3/uL (0.1-0.8); Absolute Neutrophil Count 5.71 10^3/uL (1.2-6.7); Basophils % 0.5 %; Eosinophils % 3.6 %; HCT 37.4 % (36.0-46.0); HGB 12.3 g/dL (11.2-15.7); Immature Grans % 0.3 %; Lymphocytes % 23.4 %; MCH 28.6 pg (27.0-33.0); MCHC 32.9 % (32.0-36.0); MCV 87 fL (80-95); MPV 11.1 fL (8.0-11.0); Monocytes % 6.1 %; Neutrophils % 66.1 %; Platelet Count 204 10^3/uL (130-400); RDW 13.5 % (11.7-14.6); RDW-SD 42.6 fL; WBC 8.64 10^3/uL (4.4-10.8)
[2024-04-24 22:28] LABS: Ferritin 60 ng/mL (8-252)
== END 2024-04-24 21:25 | disposition home or self-care (01) ==
LOC: NCHCN 21:24
PROVIDERS: PCP Family Medicine; Visit Provider Family Medicine
DX: D50.9 Iron deficiency anemia, unspecified (principal)
CPT/HCPCS: 82728; 85025

== ENCOUNTER 2024-05-03 21:41 | Inpatient (IN) | payer MEDICARE, BC, SELFPAY ==
[2024-05-03] VITALS (22 sets, daily range): BP systolic 199–248; BP diastolic 63–169; PULSE 78–87; RESP 13–28; TEMP 36.8; O2SAT 93–100
--- OUTSIDE RECORDS SUMMARY | 2024-05-03 21:55 | XMS_ITS | Clinical Summary ---
Author Organization [facility] Address [facility] [place] [address] Care Team Providers Care Educational Administrator Name Role Phone Vinayak Downs MD Primary Care Provider [phone] Allergies Active Allergy Reactions Criticality Noted Date [...] for pump failure 10 mL 09/08/2015 Active Additional Information Patient taking differently: 35 UnitsSubcutaneous DAILY, PRN for pump failure, Reported on 04/25/2024 thiamine 100 mg Tablet Take 100 mg by mouth daily. Active acetaminophen (TYLENOL) 500 mg Tablet Take 1,000 mg by mouth every 6 hours as needed for Pain. Active valsartan (DIOVAN) 40 mg Tablet Take 40 mg by mouth daily. Active cholecalciferol, Vitamin D3, 5,000 unit Tablet Take 2,000 Units by mouth daily. Active cyanocobalamin, vitamin B-12, 500 mcg Tablet Take 1,000 mcg by mouth daily. Active Cranberry Extract 250 mg Capsule Taking 2 capsules daily 11/05/2020 A ctive esomeprazole (NexIUM) 20 mg Capsule, Delayed Release(E.C.) Take 40 mg by mouth every morning (before breakfast). Active DULoxetine DR (Cymbalta) [address] capsule Take 60 mg by mouth daily. Active carvediloL (Coreg) 3.125 mg tablet Take 1 tablet by mouth daily. 30 tablet 3 04/25/2024 Active Active Problems Problem Noted Date Diagnosed Date Ventricular fibrillation- with Medtronic ICD imp lanted 200907/20/2010 Overview (01/12/2019): 06/21/2009 [facility]--- VF presenting, ROSC post shock by EMS, intubated; Dual chamber ICD - 07/02/2009 Medtronic John II VR Model# [id number], Serial# [id number] (pulse generator replaced 01/12/2019) (Old) Ventricular electrode: Medtronic Sprint Quattro MRI Model# 6947-58cm, Serial #[id number] Implanted 07/01/2009 (New)Pulse generator: Medtronic VISIA AF MRI Model# IAQS6V1, Serial# [id number] Implanted 01/12/2019 Assessment & Plan (09/21/2023 4:13 [...] Encounters Date Type Department Care Team Description 04/27/2024 Telephone Cardiology at [address] [phone] Ruben Hartman PA 04/26/2024 10:00 AM EST - 04/26/2024 11:59 PM EST Hospital Encounter Non-[place] [address] Discharge Disposition: Home 04/25/2024 11:30 AM EST Office Visit Cardiology at [address] [place] [address] Ruben Hartman PA 04/25/2024 Travel 04/25/2024 Orders [place] [phone] Krysta Sanz APRN 04/18/2024 Transcribe Orders eD Incoming Referrals [phone] Vinayak Downs MD Spinal stenosis, lumbar region, without neurogenic claudication 04/17/2024 Ancillary Procedure Radiology Library at [facility] [place] [address] Vinayak Downs MD from Last 3 Months Immunizations Name Administration [...] Sign Reading Time Taken Comments Blood Pressure 186/80 04/25/2024 11:35 AM EST Pulse 80 04/25/2024 11:35 AM EST Temperature 36.8 ??C (98.2 ??F) 01/12/2019 7:26 AM ED T Respiratory Rate 16 07/02/2021 11:25 AM EDT Oxygen Saturation 100% 07/02/2021 11:25 AM EDT Inhaled Oxygen Concentration - - Weight 75.3 kg (166 lb) 04/25/2024 11:35 AM EST Height 172.7 cm (5' 8) 04/25/2024 11:35 AM EST Body Mass Index 25.24 04/25/2024 11:35 AM EST Plan of Treatment Upcoming Encounters Date Type Department Care Team (Late st Contact Info) Description 07/25/2024 10:00 AM EDT Hospital Encounter Non-Invasive Cardiology Lab [facility] [place] [address] Arrived 09/24/2024 4:00 PM EDT Office Visit Cardiology at [address] [place] [phone] Nathaniel Keita MD [facility] [place] [address] 11/28/2024 10:30 AM EDT Office Visit Cardiology at [address] [place] [address] Ruben Hartman, PA [facility] [place] [address] Health Maintenance Due Date Last Done Comments [...] 02/17/2015, 02/14/2014, Additional history exists Covid-19 Vaccine (2023-2 5 season) 2023 Influenza (Flu) vaccine (1 o f 1 - Influenza standard series) 12/04/2023 02/17/2015, 01/11/2013, 04/21/2009 Medical Devices Implanted Type Area Briquetting Machine Operator Device Identifier Shelf Expiration Date Model / Serial / Lot Mdt : [id number] John Ii Vr : [id number] Implanted: (Quantity not on file) Explanted:02/2019 by Vimal Meyers MD (Quantity not on file) Defibrillator Medtronic Inc. JOHN II VR [id number] / [id number] / Description:Medtronic : [id number] VRC John II VR : [id number] Mdt : [id number] : [id number] Implanted:02/2019 by Vimal Meyers MD (Quantity not on file) Defibrillator Left: Chest Medtronic Inc. [id number] / [id number] H / Procedures Procedure Name Priority Date/Time Associated Diagnosis Comments ORDS - PROVIDER CARE SCAN 04/23/2024 12:00 AM EST FILM LIBRARY STORAGE ONLY DX HIP Routine 04/17/2024 12:00 AM EST PRO ICD INTERROGATION REMOTE UP TO 90 DAYS Routine 03/01/2024 2:27 PM EST BMP W/FASTING [...] DX Hip (04/17/2024 12:00 AM EST) Narrative [facility] RAD - 04/18/2024 1:40 PM EST This exam is auto-finalizing. It's purpose is for storage only. Vinayak Downs MD IMG FILM LIBRARY ORD ERABLES DH [place], [place] * Cardiac Device Check - Remote (03/01/2024 2:27 PM EST) Anatomical Region Laterality Modality Other 03/01/2024 2:27 PM EST Paolo Bailey MD IMPLANTABLE CARDIAC DEVICE * (ABNORMAL) BMP w/fasting Glucose (01/12/2019 7:18 AM EDT) Glucose Fasting 216(H) 65 - 99 mg/dL [facility] Comment: ?Fasting* Glucose Interpretive Criteria [...] of Diabetes Mellitus, Position Statement from the [place] Diabetes Association. ??Diabetes Care, Volume 33, Supplement 1, Apr 2009 Blood Urea Nitrogen 18 8 - 18 mg/dL [facility] Creatinine 0.89 0.70 - 1.20 mg/dL [facility] Sodium 141 135 - 145 mmol/L [facility] Potassium 4.4 3.5 - 5.0 mmol/L [facility] Comment: Please note: ??Patients with WBC >100,000 may have falsely elevated Potassium levels. ??For accurate Potassium quantification in these patients send serum separator tube (gold top) for subsequent determinations. ??Contact the Clinical Chemistry Laboratory if there are any questions. Chloride 101 98 - 107 mmol/L [facility] Carbon Dioxide 27 22 - 31 mmol/L [facility] Anion Gap 13 5 - 15 mmol/L [facility] Calcium 9.4 8.5 - 10.5 mg/dL [facility] Est Glomerular Filtration Rate 64 >=60 mL/min/1. 73 m?? [facility] Comment: The eGFR was calculated using the CKD-EPI equation. As with all creatinine based estimates of kidney function, eGFR values calculated with the CKD-EPI equation are not accurate in patients with acute kidney failure, extremes of body mass or the acutely ill. http://[employer] Predict[employer] Corporationnkf eGFR 74 >=60 mL/min/1. 73 m?? [facility] Comment: The eGFR was calculated using the CKD-EPI equation. As with all creatinine based estimates of kidney function, eGFR values calculated with the CKD-EPI equation are not accurate in patients with acute kidney failure, extremes of body mass or the acutely ill. http://[employer]/[facility] TULSAnkf Blood specimen (specimen) 01/12/2019 7:18 AM EDT 01/12/2019 7:38 AM EDT Narrative Resulting Agency Comment Spec In Lab Vimal Meyers MD CHEMISTRY ORDERABLES [facility] [place] [address] * (ABNORMAL) Hemoglobin A1c (09/08/2015 3:01 PM EDT) Hemoglobin A1c 8.4(H) 4.3 - 5.6 % [facility] Comment: Reference Range: 4.3 - [...] 36: Suppl. 1, S67-74 Estimated Average Glucose See note mg/dL [facility] Comment: Estimated Average Glucose not [...] resources are available on the ADA website: http://Privacy Networksl.com/DHMCadacalc Alfred JEFFRIES, Risa J, Sergio R, et al. ??Translating the A1C assay into estimated average glucose values. ??Diabetes Care 2008:31(8):3303-3465. Blood specimen (specimen) 09/08/2015 3:01 PM EDT 09/08/2015 3:13 PM EDT Narrative Resulting Agency Comment Spec In Lab Chris Chatman MD CHEMISTRY ORDERABLES [facility] [place] [address] * Microalbumin, urine, random (02/17/2015 9:27 AM EST) Creatinine, Urine 102 mg/dL CE RNER MILLENNI[facility] Albumin, Urine <3.0 mg/L CERNE R MILLENNIUM Albumin / Creatinin Ratio, Urine <3 mcg/mg Cr [facility] Comment: Reference Range* Random collection (mcg/mg creatinine) Normal ?<30 Microalbuminuria ?? 30 - 300 Clinical Albuminuria ?? >300 *[place] Diabetes Association. Diabetic Nephropathy. Diabetes Care 1997;(Suppl [...] capacity to make decision: Yes Care Teams Educational Administrator Relationship Specialty Start Date End Date Vinayak Downs MD [address] [place], [place] [address] PCP - General Family Medicine 07/27/23
--- OUTSIDE RECORDS SUMMARY | 2024-05-03 21:55 | XMS_ITS | Encounter Summary ---
Author Organization [facility] [address] Care Team Providers Care Nanotechnology Engineering Technician Name Role Phone Vinayak Downs MD Primary Care Provider [phone] Encounter Details Date Type Department Care Team (Late st Contact Info) Description 04/27/2024 Telephone Cardiology at [address] [address] Ruben Hartman PA [facility] [address] Social History Tobacco Use Types Packs/Day Years [...] Miscellaneous Notes * Telephone Encounter - Tammy Machado RN - 04/30/2024 1:19 PM EST Liane started carvedilol after it was available for warp picker April 26. Three times a day vital signs check at home: Tuesday P 77 176/86 P 67 102/66 P 88 153/71 Tuesday P 81 149/75 P 92 160/69 P 86 176/81 Tuesday P 78 150/79 P 80 160/74 * Telephone Encounter - Maru Pandya - 04/27/2024 3:06 PM EST Patient called on 04/27/24 @ 3:05 p.m.. She asked that we let Ruben Minajoe know that she will call on 04/30/24 with the info he wanted regarding Carvedilol 3.125 mg. She reported she was unable to start taking the Carvedilol until today, due to the prescription not being ready in time. She would also like to check with Dr. Keita as to whether or not she needs to attend her scheduled 1 yr in September, since she has been seeing Ruben Minnie. She will call back on 04/30/24. She can be reached @ [phone]. documented in this encounter Plan of Treatment Upcoming Encounters Date Type Department Care Team (Late st Contact Info) Description 07/25/2024 10:00 AM EDT Hospital Encounter Non-[place] [address] Arrived 09/24/2024 4:00 PM EDT Office Visit Cardiology at [address] [phone] Nathaniel Keita MD [facility] [place] [address] 11/28/2024 10:30 AM EDT Office Visit Cardiology at [address] [address] Ruben Hartman PA [facility] [place] [address] documented as of this encounter Visit Diagnoses Not on filedocumented in this encounter Care Teams Nanotechnology Engineering Technician Relationship Specialty Start Date End Date Vinayak Downs MD [address] [place] [address] PCP - General Family Medicine 07/27/23 documented as of this encounter
--- OUTSIDE RECORDS SUMMARY | 2024-05-03 21:55 | XMS_ITS | Encounter Summary ---
Author Organization [facility] [place] [address] Care Team Providers Care Crts Name Role Phone Vinayak Downs MD Primary Care Provider [phone] Encounter Details Date Type Department Care Team (Latest Contact Info) Description 04/25/2024 Travel Social History Tobacco Use Types Packs/Day [...] AM EDT Hospital Encounter Non-Invasive [place] [address] Arrived 09/24/2024 4:00 PM EDT Office Visit Cardiology at [address] [phone] Nathaniel Keita MD [facility] [place] [address] 11/28/2024 10:30 AM EDT Office Visit Cardiology at [address] [place] [address] Ruben Hartman, [facility] [place] [address] documented as of this encounter Visit Diagnoses Not on filedocumented in this encounter Care Teams Crts Relationship Specialty Start Date End Date Vinayak Downs MD [address] [place] [address] PCP - General Family Medicine 07/27/23 documented as of this encounter
--- OUTSIDE RECORDS SUMMARY | 2024-05-03 21:55 | XMS_ITS | Encounter Summary ---
[place] [address] Care Team Providers Care Cloud Administrator Name Role Phone Vinayak Downs MD Primary Care Provider [phone] Encounter Details Date Type Department Care Team (Latest Contact Info) Description 04/26/2024 10:00 AM EST - 04/26/2024 11:59 PM EST Hospital Encounter Non-Invasive [place] [phone] Discharge Disposition: Home Social History Tobacco Use [...] Sig Dispensed Refills Start Date End Date carvediloL (Coreg) 3.125 mg tablet Take 1 tablet by mouth daily. 30 tablet 3 04/25/[address] (Cymbalta) [address] capsule Take 60 mg by mouth daily. Cranberry Extract 250 mg Capsule Taking 2 capsules daily 11/05/2020 esomeprazole (NexIUM) 20 mg Capsule, Delayed Release(E.C.) [...] Tablet Take 40 mg by mouth daily. thiamine 100 mg Tablet Take 100 mg [...] AM EDT Hospital Encounter Non-Invasive [place] [address] Arrived 09/24/2024 4:00 PM EDT Office Visit Cardiology at [address] [address] Nathaniel Keita MD [facility] [place] [address] 11/28/2024 10:30 AM EDT Office Visit Cardiology at [address] [address] Ruben Hartman PA [facility] [place] [address] documented as of this encounter Procedures Procedure Name Priority Date/Time Associated Diagnosis Comments PRO ICD INTERROGATION REMOTE UP TO 90 DAYS Routine 03/01/2024 2:27 PM EST documented in this encounter Results * Cardiac Device Check - Remote (03/01/2024 2:27 PM EST) Anatomical Region Laterality Modality Other 03/01/2024 2:27 PM EST Paolo Bailey MD IMPLANTABLE CARDIAC DEVICE documented in this encounter Visit Diagnoses Not on filedocumented in this encounter Care Teams Cloud Administrator Relationship Specialty Start Date End Date Vinayak Downs MD [address] [place] [address] PCP - General Family Medicine 07/27/23 documented as of this encounter
--- OUTSIDE RECORDS SUMMARY | 2024-05-03 21:56 | XMS_ITS | Encounter Summary ---
[place] [address] Care Team Providers Care Soil Fertility Extension Specialist Name Role Phone Alexander Adams MD Primary Care Provider [phone] Encounter Details Date Type Department Care Team (Latest Contact Info) Description 08/05/2022 10:00 AM EDT - 08/05/2022 11:59 PM EDT Hospital Encounter Non-Invasive [place] [phone] Discharge Disposition: Home Social History Tobacco Use [...] Tab 200 mg PO Once daily 03/24/2010 sucralfate (Carafate) 1 gram Tablet 1 g 4 times daily as needed. 06/09/2021 04/25/2024 loratadine (CLARITIN) 10 mg Tablet Take 10 mg by mouth daily as needed. 07/27/2023 lansoprazole (PREVACID) 30 mg capsule Take 30 mg by mouth daily. 07/27/2023 documented as of this encounter Plan of Treatment Upcoming Encounters Date Type Department Care Team (Late st Contact Info) Description 07/25/2024 10:00 AM EDT Hospital Encounter Non-Invasive Cardiology Lab [facility] [place] [address] Arrived 09/24/2024 4:00 PM EDT Office Visit Cardiology at [address] [phone] Nathaniel Keita MD [facility] [place] [address] 11/28/2024 10:30 AM EDT Office Visit Cardiology at [address] [phone] Ruben Hartman PA [facility] [place] [address] documented as of this encounter Procedures Procedure [...] on filedocumented in this encounter Care Teams Soil Fertility Extension Specialist Relationship Specialty Start Date End Date Alexander Adams MD [address] [place] [address] PCP - General 04/06/12 07/26/23 documented as of this encounter
--- OUTSIDE RECORDS SUMMARY | 2024-05-03 21:56 | XMS_ITS | Encounter Summary ---
Author Organization [facility] [address] Care Team Providers Care Wood Bucker Name Role Phone Vinayak Downs MD Primary Care Provider [phone] Reason for Referral * Consultation (Routine) - Authorized Specialty Diagnoses / Procedures Referred By Contac t Referred To Contact Neurosurgery Diagnoses Spinal stenosis, lumbar region, without neurogenic claudication Vinayak Downs MD [address] [place] [address] Bhavna Malin MD [facility] [address] Referral ID Status Reason Start Date Expiration Date Visits Requested Visits Authorized [id number] Authorized Consult, Test & Treat 04/18/2024 04/18/2025 1 1 Encounter Details Date Type Department Care Team (Latest Contact Info) Description 04/18/2024 Transcribe Orders eD Incoming Referrals [phone] Vinayak Downs MD [address] [place] [address] Spinal stenosis, lumbar region, without [...] AM EDT Hospital Encounter Non-[place] [address] Arrived 09/24/2024 4:00 PM EDT Office Visit Cardiology at [address] [phone] Nathaniel Keita MD [facility] [place] [address] 11/28/2024 10:30 AM EDT Office Visit Cardiology at [address] [phone] Ruben Hartman PA [facility] [place] [address] Scheduled Referrals Name Type Priority Associated Diagnoses Orde r Schedule Referral to Neurosurgery Outpatient Referral Routine Spinal stenosis, lumbar region, without neurogenic claudication Ordered: 04/18/2024 documented as of this encounter Visit Diagnoses Diagnosis Spinal stenosis, lumbar region, without neurogenic claudication documented in this encounter Care Teams Wood Bucker Relationship Specialty Start Date End Date Vinayak Downs MD [address] [place] [address] PCP - General Family Medicine 07/27/23 documented as of this encounter
--- OUTSIDE RECORDS SUMMARY | 2024-05-03 21:56 | XMS_ITS | Encounter Summary ---
[place] [address] Care Team Providers Care Water Superintendent Name Role Phone Alexander Adams MD Primary Care Provider [phone] Encounter Details Date Type Department Care Team (Latest Contact Info) Description 11/03/2022 10:00 AM EDT - 11/03/2022 11:59 PM EDT Hospital Encounter Non-[place] [phone] Discharge Disposition: Home Social History Tobacco Use [...] AM EDT Hospital Encounter Non-Invasive Cardiology Lab [facility] [place] [address] Arrived 09/24/2024 4:00 PM EDT Office Visit Cardiology at [address] [phone] Nathaniel Keita MD [facility] [place] [address] 11/28/2024 10:30 AM EDT Office Visit Cardiology at [address] [phone] Ruben Hartman PA [facility] [place] [address] documented as of this encounter Procedures Procedure [...] on filedocumented in this encounter Care Teams Water Superintendent Relationship Specialty Start Date End Date Alexander Adams MD [address] [place] [address] PCP - General 04/06/12 07/26/23 documented as of this encounter
--- OUTSIDE RECORDS SUMMARY | 2024-05-03 21:56 | XMS_ITS | Encounter Summary ---
Author Organization [facility] [place] [address] Care Team Providers Care Refinery Process Engineer Name Role Phone Alexander Adams MD Primary Care Provider Encounter Details Date Type Department Care Team (Late st Contact Info) Description 05/22/2023 12:15 AM EST Ancillary Procedure Radiology Library at [facility] [place] [address] Vinayak Downs MD [address] [place] [address] Social History Tobacco Use Types Packs/Day Years [...] AM EDT Hospital Encounter Non-Invasive Cardiology Lab [facility] [place] [address] Arrived 09/24/2024 4:00 PM EDT Office Visit Cardiology at [address] [address] Nathaniel Keita MD [facility] [place] [place] [address] 11/28/2024 10:30 AM EDT Office Visit Cardiology at [address] [place] [address] Ruben Hartman PA [facility] [place] [address] documented as of this encounter Procedures Procedure Name Priority Date/Time Associated Diagnosis Comments FILM LIBRARY STORAGE ONLY DX HIP Routine 05/22/2023 12:15 AM EST documented in this encounter Results * Film Library- Storage Only DX Hip (05/22/2023 12:15 AM EST) Narrative [facility] - 04/18/2024 1:31 PM EST This exam is auto-finalizing. It's purpose is for storage only. Vinayak Downs MD IMG FILM LIBRARY ORD ERABLES Performing Organization Address City/State/[facility] Co de Phone Number [place], [place] documented in this encounter Visit Diagnoses Not on filedocumented in this encounter Care Teams Refinery Process Engineer Relationship Specialty Start Date End Date Alexander Adams MD [address] [place] [address] PCP - General 04/06/12 07/26/23 documented as of this encounter
--- OUTSIDE RECORDS SUMMARY | 2024-05-03 21:56 | XMS_ITS | Encounter Summary ---
Author Organization [facility] [place] [address] Care Team Providers Care Room Service Runner Name Role Phone Alexander Adams MD Primary Care Provider Encounter Details Date Type Department Care Team (Late st Contact Info) Description 05/22/2023 12:05 AM EST Ancillary Procedure Radiology Library at [facility] [place] [address] Vinayak Downs MD [address] [place] [address] Social History Tobacco Use Types [...] AM EDT Hospital Encounter Non-Invasive Cardiology Lab [facility] [place] [address] Arrived 09/24/2024 4:00 PM EDT Office Visit Cardiology at [address] [address] Nathaniel Keita MD [facility] [place] [address] 11/28/2024 10:30 AM EDT Office Visit Cardiology at [address] [place] [address] Ruben Hartman PA [facility] [place] [address] documented as of this encounter Procedures Procedure Name Priority Date/Time Associated Diagnosis Comments FILM LIBRARY STORAGE ONLY CT PELVIS Routine 05/22/2023 12:05 AM EST documented in this encounter Results * Film Library- Storage Only CT Pelvis (05/22/2023 12:05 AM EST) Narrative [facility] - 04/18/2024 1:31 PM EST This exam is auto-finalizing. It's purpose is for storage only. Vinayak Downs MD IMG FILM LIBRARY ORD ERABLES Performing Organization Address City/State/[facility] Co de Phone Number [place], [place] documented in this encounter Visit Diagnoses Not on filedocumented in this encounter Care Teams Room Service Runner Relationship Specialty Start Date End Date Alexander Adams MD [address] [place] [address] PCP - General 04/06/12 07/26/23 documented as of this encounter
--- OUTSIDE RECORDS SUMMARY | 2024-05-03 21:56 | XMS_ITS | Encounter Summary ---
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 / 2nd opinion Domenico Perez MD [address] [place] [address] [place] [address] Inocente Phoenix MD [facility] [place] [address] Referral ID Status Reason Start Date Expiration Date V isits Requested Visits Authorized [id number] Closed Consult, Test & Treat 05/28/2021 05/28/2022 1 1 Encounter Details Date Type Department Care Team (Late st Contact Info) Description 07/02/2021 11:40 AM EDT Office [place] [address] Inocente Phoenix MD [facility] OTOLARYNGOLOGYoselin [place], [place] [id number] Mass of right parotid gland Social History [...] Phoenix MD - 07/02/2021 11:40 AM EDT [facility] OTOLARYNGOLOGY NEW PATIENT CONSULTATION I was asked [...] Had a CT in the past at [facility], we do not have this image [...] interested in surgery ifabsolutely necessary. 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 She lives in [place] alone withher cat named Loree. PROBLEM LIST Patient Active Problem List Diagnosis Code ??? CAD, out of hosp arrest and 2v CABG in 2010, preserved LV function I25.10 ??? 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 Gastroesophageal reflux disease K21.9 ??? Hypertension I10 ??? Ventricular fibrillation- with Medtronic ICD implanted 2009 I49.01 PAST MEDICAL HISTORY Past Medical History: Diagnosis Date ??? Allergic state ??? Allergy ??? Arthritis ??? CAD (coronary artery disease) ??? Cardiac disease 2009 Hear attack ??? Diabetes mellitus ??? Diabetic oculopathy ??? DM eyes ??? GERD (gastroesophageal reflux disease) ??? Hyperlipidemia ??? Hypertension ??? NC (myocardial infarction) 2009 ??? Neuropathy ??? Traumatic [...] in Ms. Cole's care. Yadira Mayo PA-C [place], [place] [address] Office 07/02/2021 [facility] Otolaryngology Attending Note Patient seen and examined [...] the left parotid. FNA was reviewed at [facility] and no neoplastic cells although low cellularity. [...] AM EDT Hospital Encounter Non-[place] [address] Arrived 09/24/2024 4:00 PM EDT Office Visit Cardiology at [address] [address] Nathaniel Keita MD [facility] [place] [address] 11/28/2024 10:30 AM EDT Office Visit Cardiology at [address] [address] Ruben Hartman, LAURA [facility] [place] [address] documented as of this encounter Visit Diagnoses Diagnosis Mass of right parotid gland documented in this encounter Care Teams Nut Sorter Operator Relationship Specialty Start Date End Date Alexander Adams MD [address] [place] [address] PCP - General 04/06/12 07/26/23 documented as of this encounter
--- OUTSIDE RECORDS SUMMARY | 2024-05-03 21:56 | XMS_ITS | Encounter Summary ---
Author Organization [facility] [address] Care Team Providers Care Stamp Press Operator Name Role Phone Alexander Adams MD Primary Care Provider [phone] Encounter Details Date Type Department Care Team (Latest Contact Info) Description 03/25/2021 - 03/25/2021 11:59 PM EST Hospital Encounter Non-[place] [phone] Alyson Oshea MD [facility] [place] [address] Ventricular fibrillation Discharge Disposition: Home Social History [...] AM EDT Hospital Encounter Non-[place] [address] Arrived 09/24/2024 4:00 PM EDT Office Visit Cardiology at [address] [phone] Nathaniel Keita MD [facility] [place] [address] 11/28/2024 10:30 AM EDT Office Visit Cardiology at [address] [phone] Ruben Hartman PA [facility] [place] [address] documented as of this encounter Procedures Procedure [...] pdf document Date of transmission: 03/26/2021 Device network systems engineer: SWATHI Device type: SC ICD Presenting rhythm: vs SUPERVISOR GAS METER REPAIR <1% Battery: 3.01V, 10 years Episodes: Multiple brief tachy events; SVT vs NSVT Stable lead trends. Activity 1 hr/day Alyson Oshea MD 03/30/2021 1:17 PM Alyson Oshea MD IMPLANTABLE CARDIAC DEVICE documented in this encounter Visit Diagnoses Diagnosis Ventricular fibrillation documented in this encounter Care Teams Stamp Press Operator Relationship Specialty Start Date End Date Alexander Adams MD [address] [place] [address] PCP - General 04/06/12 07/26/23 documented as of this encounter
--- OUTSIDE RECORDS SUMMARY | 2024-05-03 21:56 | XMS_ITS | Encounter Summary ---
Author Organization [place] [address] Care Team Providers Care Food And Drug Inspector Name Role Phone Alexander Adams MD Primary Care Provider [phone] Encounter Details Date Type Department Care Team (Latest Contact Info) Description 06/10/2021 9:08 AM EST - 06/10/2021 11:59 PM [facility] Hospital [place] [phone] Discharge Disposition: Home Social History Tobacco Use [...] AM EDT Hospital Encounter Non-Invasive [place] [address] Arrived 09/24/2024 4:00 PM EDT Office Visit Cardiology at [address] [phone] Nathaniel Keita MD [facility] [place] [address] 11/28/2024 10:30 AM EDT Office Visit Cardiology at [address] [phone] Ruben Hartman PA [facility] [place] [address] documented as of this encounter Procedures Procedure Name Priority Date/Time Associated Diagnosis Comments NON-MRB ENGINEER FINAL REPORT Routine 06/10/2021 9:09 AM EST documented in this encounter Results * Non-City Council Member Final Report (06/10/2021 9:09 AM EST) Non-City Council Member Final Report [id number] ? Location: OPW The signing pathologist has (i) examined the relevant preparation(s) for the specimen(s) and (ii) rendered or confirmed the diagnosis(es). . ? Non-City Council Member Final DIAGNOSIS Atypical Electronically signed by: ?Tracy GOMEZ, Brandyn Mendez Verified: ??06/13/2021 15:35 ??Pathologist Performed at: ??-[facility] Dept. of Pathology, [place], [place] DISCUSSION Parotid gland, right (FNA): Hypocellular aspirate; predominantly debris and white blood cells present. Rare atypical degenerated epithelioid cells noted. Scant cellularity precludes further characterization. CLINICAL INFORMATION CONSULTATION CASE Source: ? Parotid gland, right (FNA) Clinical History: ? Right parotid mass. Received 1 slide(s) labeled [id number] Received 0 block(s). Specimen collection date: ?05/19/2021. For the full text of the [facility] ([facility]) report(s), please refer to Critical access hospital Tracking #: ? [id number] . Report to: [facility] Pathology & Laboratory Medicine Main [place] [address] [place] [id number] [place] [address] LABORATORY 06/10/2021 9:09 AM EST Inocente Phoenix MD PATHOLOGY/CYTOLOGY ORDERABLES [facility] [place] [address] documented in this encounter Visit Diagnoses Not on filedocumented in this encounter Care Teams Food And Drug Inspector Relationship Specialty Start Date End Date Alexander Adams MD [address] [place] [address] PCP - General 04/06/12 07/26/23 documented as of this encounter
--- OUTSIDE RECORDS SUMMARY | 2024-05-03 21:56 | XMS_ITS | Encounter Summary ---
Author Organization [facility] Address [facility] [place] [address] Care Team Providers Care Gear Shaper Set Up Operator Name Role Phone Vinayak Downs MD Primary Care Provider [phone] Reason for Visit * Reason Comments Ventricular Arrhythmia Medtronic ICD for Ventricular fibrillation Coronary Artery Disease Hypertension Encounter Details Date Type Department Care Team (Late st Contact Info) Description 09/21/2023 3:40 PM EDT Office Visit Cardiology at [address] [address] Nathaniel Keita MD [facility] [place] [address] Coronary artery disease, unspecified vessel or lesion type, unspecified whether angina present, unspecified whether [place]k or transplanted heart; Ventricular fibrillation- with Medtronic [...] Looking forward to going camping in the [facility] area. Bp well controlled Current Outpatient [...] - 07/02/2009 Medtronic John II VR Model# [id number], Serial# [id number] (pulse generator replaced 01/12/2019) (Old) Ventricular electrode: Medtronic Sprint Quattro MRI Model# 6947-58cm, Serial #[id number] Implanted 07/01/2009 (New)Pulse generator: Medtronic VISIA AF MRI Model# [id number], Serial# [id number] Implanted 01/12/2019 CAD, out of hosp arrest [...] AM EDT Hospital Encounter Non-[place] [address] Arrived 09/24/2024 4:00 PM EDT Office Visit Cardiology at [address] [phone] Nathaniel Keita MD [facility] [place] [address] 11/28/2024 10:30 AM EDT Office Visit Cardiology at [address] [phone] Ruben Hartman PA [facility] [place] [address] documented as of this encounter Visit Diagnoses Diagnosis Coronary artery disease, unspecified vessel or lesion type, unspecified whether angina present, unspecified whether tat[place]k or transplanted heart Ventricular fibrillation- with Medtronic ICD implanted 2009 Ventricular fibrillation documented in this encounter Care Teams Gear Shaper Set Up Operator Relationship Specialty Start Date End Date Vinayak Downs MD [address] [place] [address] PCP - General Family Medicine 07/27/23 documented as of this encounter
--- OUTSIDE RECORDS SUMMARY | 2024-05-03 21:56 | XMS_ITS | Encounter Summary ---
Author Organization [facility] [place] [address] Care Team Providers Care Industrial Twisting Machine Operator Name Role Phone Vinayak Downs MD Primary Care Provider Encounter Details Date Type Department Care Team (Late st Contact Info) Description 04/17/2024 Ancillary Procedure Radiology Library at [facility] [place] [address] Vinayak Downs MD [address] [place] [address] Social History Tobacco Use Types [...] AM EDT Hospital Encounter Non-Invasive Cardiology Lab [facility] [place] [address] Arrived 09/24/2024 4:00 PM EDT Office Visit Cardiology at [address] [address] Nathaniel Keita MD [facility] [place] [address] 11/28/2024 10:30 AM EDT Office Visit Cardiology at [address] [place] [address] Ruben Hartman PA [facility] [place] [address] documented as of this encounter Procedures Procedure Name Priority Date/Time Associated Diagnosis Comments FILM LIBRARY STORAGE ONLY DX HIP Routine 04/17/2024 12:00 AM EST documented in this encounter Results * Film Library- Storage Only DX Hip (04/17/2024 12:00 AM EST) Narrative [facility] - 04/18/2024 1:40 PM EST This exam is auto-finalizing. It's purpose is for storage only. Vinayak Downs MD IMG FILM LIBRARY ORD ERABLES [place], [place] documented in this encounter Visit Diagnoses Not on filedocumented in this encounter Care Teams Industrial Twisting Machine Operator Relationship Specialty Start Date End Date Vinayak Downs MD [address] [place] [address] PCP - General Family Medicine 07/27/23 documented as of this encounter
--- OUTSIDE RECORDS SUMMARY | 2024-05-03 21:56 | XMS_ITS | Encounter Summary ---
[place] [address] Care Team Providers Care Stock Speculator Name Role Phone Alexander Adams MD Primary Care Provider Reason for Referral * Consultation (Routine) - Closed Specialty Diagnoses / Procedures Referred By Jessy enriquez Referred To Contact Otolaryngology Diagnoses Mass of right parotid gland Possible Warthin's Tumor / 2nd opinion Domenico Perez MD [address] [place] [address] [place] [address] Inocente Phoenix MD [facility] [place] [address] Referral ID Status Reason Start Date Expiration Date V isits Requested Visits Authorized [id number] Closed Consult, Test & Treat 05/28/2021 05/28/2022 1 1 Encounter Details Date Type Department Care Team (Late st Contact Info) Description 05/28/2021 Transcribe [place] [address] Domenico Perez MD [address] [place] [address] [place] [address] Mass of right parotid gland Social History [...] AM EDT Hospital Encounter Non-Invasive [place] [address] Arrived 09/24/2024 4:00 PM EDT Office Visit Cardiology at [address] [phone] Nathaniel Keita MD [facility] [place] [address] 11/28/2024 10:30 AM EDT Office Visit Cardiology at [address] [address] Ruben Hartman PA [facility] [place] [address] Scheduled Referrals Name Type Priority Associated Diagnoses Orde r Schedule Referral to ENT Outpatient Referral Routine Mass of right parotid gland Ordered: 05/28/2021 documented as of this encounter Visit Diagnoses Diagnosis Mass of right parotid gland documented in this encounter Care Teams Stock Speculator Relationship Specialty Start Date End Date Alexander Adams MD [address] [place] [address] PCP - General 04/06/12 07/26/23 documented as of this encounter
--- OUTSIDE RECORDS SUMMARY | 2024-05-03 21:56 | XMS_ITS | Encounter Summary ---
Author Organization [facility] Address [facility] [place] [address] Care Team Providers Care Refinery Operator Polymerization Plant Name Role Phone Alexander Adams MD Primary Care Provider [phone] Reason for Visit * Reason Comments Follow-up Medtronic ICD device check Encounter Details Date Type Department Care Team (Late st Contact Info) Description 02/14/2019 8:30 AM EST Office Visit Cardiology at [address] [address] Vimal Meyers MD [facility] [place] [address] ICD (implantable cardioverter-defibril lator) in place Social [...] were not included. Section of Cardiology/Cardiac Electrophysiology [facility] Clinical Cardiac Electrophysiology Follow Up Patient ID Liane Cole [id number] Liane Cole is following up in EP clinic Chief Complaint ICD s/p pulse generator replacement History This is a 73 y.o. female following up/being seen in clinic for follow up after her recent ICD pulsegenerator change for an ICD that was elective replacement indicator. The procedure was performed on12 January 2019, and was uncomplicated. She was seen in the [facility] on 26 January for routine postop [...] fibrillation- with Medtronic ICD implanted 200906/21/2009 [facility]--- VF presenting, ROSC post shock by EMS, intubated; Dual chamber ICD - 07/02/2009 Medtronic John II VR Model# [id number], Serial# [id number] (pulse generator replaced 01/12/2019) (Old) Ventricular electrode: Medtronic Sprint Quattro MRI Model# 6947-58cm, Serial #[id number] Implanted 07/01/2009 (New)Pulse generator: Medtronic VISIA AF MRI Model# [id number], Serial# [id number] Implanted 01/12/2019 ??? CAD, out of hosp [...] Not on file Occupational History ??? 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 Social Needs [...] file Gets together: Not on file Attends muslim service: Not on file Active member of [...] Routine follow-up in the ICD clinic at [place] in about 6 months time C) Continue [...] AM EDT Hospital Encounter Non-Invasive [place] [address] Arrived 09/24/2024 4:00 PM EDT Office Visit Cardiology at [address] [place] [phone] Nathaniel Keita MD [facility] [place] [address] 11/28/2024 10:30 AM EDT Office Visit Cardiology at [address] [address] Ruben Hartman, [facility] [place] [address] documented as of this encounter Visit Diagnoses Diagnosis ICD (implantable cardioverter-defibrillator) in place documented in this encounter Care Teams Refinery Operator Polymerization Plant Relationship Specialty Start Date End Date Alexander Adams MD [address] [place] [address] PCP - General 04/06/12 07/26/23 documented as of this encounter
--- OUTSIDE RECORDS SUMMARY | 2024-05-03 21:56 | XMS_ITS | Encounter Summary ---
[place] [address] Care Team Providers Care Photoengraving Printer Name Role Phone Alexander Adams MD Primary Care Provider [phone] Encounter Details Date Type Department Care Team (Latest Contact Info) Description 12/23/2020 - 12/23/2020 11:59 PM EDT Hospital Encounter Non-[place] [phone] Vimal Meyers MD [facility] [place] [place] [address] Ventricular fibrillation Discharge Disposition: Home Social History [...] AM EDT Hospital Encounter Non-[place] [address] Arrived 09/24/2024 4:00 PM EDT Office Visit Cardiology at [address] [phone] Nathaniel Keita MD [facility] [place] [address] 11/28/2024 10:30 AM EDT Office Visit Cardiology at [address] [phone] Ruben Hartman PA [facility] [place] [address] documented as of this encounter Procedures Procedure [...] fibrillation documented in this encounter Care Teams Photoengraving Printer Relationship Specialty Start Date End Date Alexander Adams MD [address] [place] [address] PCP - General 04/06/12 07/26/23 documented as of this encounter
--- OUTSIDE RECORDS SUMMARY | 2024-05-03 21:56 | XMS_ITS | Encounter Summary ---
Author Organization [facility] Address [facility] [place] [address] Care Team Providers Care Telehealth Nurse Name Role Phone Alexander Adams MD Primary Care Provider [phone] Encounter Details Date Type Department Care Team (Latest Contact Info) Description 02/26/2020 - 02/26/2020 11:59 PM EST Hospital Encounter Non-In[place] [phone] Paolo Bailey MD [facility] [place] [place] [address] Ventricular fibrillation Discharge Disposition: Home Social History [...] AM EDT Hospital Encounter Non-Invasive [place] [address] Arrived 09/24/2024 4:00 PM EDT Office Visit Cardiology at [address] [phone] Nathaniel Keita MD [facility] [place] [address] 11/28/2024 10:30 AM EDT Office Visit Cardiology at [address] [phone] Ruben Hartman PA [facility] [place] [address] Pending Results Name Type Priority Associated Diagnoses [...] fibrillation documented in this encounter Care Teams Telehealth Nurse Relationship Specialty Start Date End Date Alexander Adams MD [address] [place] [address] PCP - General 04/06/12 07/26/23 documented as of this encounter
--- OUTSIDE RECORDS SUMMARY | 2024-05-03 21:56 | XMS_ITS | Encounter Summary ---
[place] [address] Care Team Providers Care Parcel Post Weigher Name Role Phone Vinayak Downs MD Primary Care Provider [phone] Encounter Details Date Type Department Care Team (Latest Contact Info) Description 07/31/2023 10:00 AM EDT - 07/31/2023 11:59 PM EDT Hospital Encounter Non-Invasive [place] [phone] Discharge Disposition: Home Social History Tobacco Use [...] 4 times daily as needed. 06/09/2021 04/25/2024 documented as of this encounter Plan of Treatment Upcoming Encounters Date Type Department Care Team (Late st Contact Info) Description 07/25/2024 10:00 AM EDT Hospital Encounter Non-Invasive [place] [address] Arrived 09/24/2024 4:00 PM EDT Office Visit Cardiology at [address] [phone] Nathaniel Keita MD [facility] [place] [address] 11/28/2024 10:30 AM EDT Office Visit Cardiology at [address] [phone] Ruben Hartman PA [facility] [place] [address] documented as of this encounter Procedures Procedure [...] on filedocumented in this encounter Care Teams Parcel Post Weigher Relationship Specialty Start Date End Date Vinayak Downs MD [address] [place] [address] PCP - General Family Medicine 07/27/23 documented as of this encounter
--- OUTSIDE RECORDS SUMMARY | 2024-05-03 21:56 | XMS_ITS | Encounter Summary ---
Author Organization [facility] [place] [address] Care Team Providers Care Bottle Carrier Name Role Phone Vinayak Downs MD Primary Care Provider [phone] Encounter Details Date Type Department Care Team (Late st Contact Info) Description 04/25/2024 [place] [address] Krysta Sanz APRN [facility] [place] [address] Social History Tobacco Use Types Packs/Day Years [...] AM EDT Hospital Encounter Non-[place] [phone] Arrived 09/24/2024 4:00 PM EDT Office Visit Cardiology at [address] [address] Nathaniel Keita MD [facility] [place] [address] 11/28/2024 10:30 AM EDT Office Visit Cardiology at [address] [place] [address] Ruben Hartman PA [facility] [place] [address] documented as of this encounter Visit Diagnoses Not on filedocumented in this encounter Care Teams Bottle Carrier Relationship Specialty Start Date End Date Vinayak Downs MD [address] [address] PCP - General Family Medicine 07/27/23 documented as of this encounter
--- OUTSIDE RECORDS SUMMARY | 2024-05-03 21:56 | XMS_ITS | Encounter Summary ---
[place] [address] Care Team Providers Care Dub Room Engineer Name Role Phone Alexander Adams MD Primary Care Provider [phone] Encounter Details Date Type Department Care Team (Late st Contact Info) Description 11/20/2020 Ancillary Procedure Radiology at [facility] [address] [place] [phone] Bhavna Malin MD [address] [place] [address] Social History Tobacco Use Types Packs/Day Years [...] AM EDT Hospital Encounter Non-[place] [address] Arrived 09/24/2024 4:00 PM EDT Office Visit Cardiology at [address] [phone] Nathaniel Keita MD [facility] [place] [address] 11/28/2024 10:30 AM EDT Office Visit Cardiology at [address] [place] [phone] Ruben Hartman PA [facility] [place] [address] documented as of this encounter Procedures Procedure Name Priority Date/Time Associated Diagnosis Comments FILM LIBRARY STORAGE ONLY CT SPINE Routine 11/20/2020 12:00 AM EDT documented in this encounter Results * Film Library- Storage Only CT Spine (11/20/2020 12:00 AM EDT) Narrative [facility] - 11/24/2020 9:59 AM EDT This exam is auto-finalizing. It's purpose is for storage only. Bhavna Malin MD IMG FILM LIBRARY ORDERABLES [place], [place] documented in this encounter Visit Diagnoses Not on filedocumented in this encounter Care Teams Dub Room Engineer Relationship Specialty Start Date End Date Alexander Adams MD [address] [place] [address] PCP - General 04/06/12 07/26/23 documented as of this encounter
--- OUTSIDE RECORDS SUMMARY | 2024-05-03 21:56 | XMS_ITS | Encounter Summary ---
Author Organization [facility] [place] [address] Care Team Providers Care Curriculum Advisory Teacher Name Role Phone Alexander Adams MD Primary Care Provider [phone] Encounter Details Date Type Department Care Team (Late st Contact Info) Description 03/10/2022 Orders Only Cardiology at [address] [address] Paolo Bailey MD [facility] [place] [address] Social History Tobacco Use Types Packs/Day Years [...] AM EDT Hospital Encounter Non-[place] [address] Arrived 09/24/2024 4:00 PM EDT Office Visit Cardiology at [address] [address] Nathaniel Keita MD [facility] [place] [address] 11/28/2024 10:30 AM EDT Office Visit Cardiology at [address] [place] [phone] Ruben Hartman PA [facility] [place] [address] documented as of this encounter Procedures Procedure [...] on filedocumented in this encounter Care Teams Curriculum Advisory Teacher Relationship Specialty Start Date End Date Alexander Adams MD [address] [place] [address] PCP - General 04/06/12 07/26/23 documented as of this encounter
--- OUTSIDE RECORDS SUMMARY | 2024-05-03 21:56 | XMS_ITS | Encounter Summary ---
[place] [address] Care Team Providers Care Manufacturing Assembler Name Role Phone Alexander Adams MD Primary Care Provider Encounter Details Date Type Department Care Team (Late st Contact Info) Description 07/09/2019 External Results Cardiology at [address] [address] Alexander Adams MD [address] [place] [address] Social History Tobacco Use Types [...] AM EDT Hospital Encounter Non-[place] [address] Arrived 09/24/2024 4:00 PM EDT Office Visit Cardiology at [address] [phone] Nathaniel Keita MD [facility] [place] [address] 11/28/2024 10:30 AM EDT Office Visit Cardiology at [address] [place] [address] Ruben Hartman PA [facility] [place] [address] documented as of this encounter Procedures Procedure Name Priority Date/Time Associated Diagnosis Comments EP DEVICE SCAN Routine 05/16/2019 documented in this encounter Results * Scan Doc: EP Device (05/16/2019) Anatomical Region Laterality Modality Other Alexander Adams MD MEDIA MGR SCAN EXT O RDR/RSLT documented in this encounter Visit Diagnoses Not on filedocumented in this encounter Care Teams Manufacturing Assembler Relationship Specialty Start Date End Date Alexander Adams MD [address] [place] [address] PCP - General 04/06/12 07/26/23 documented as of this encounter
--- OUTSIDE RECORDS SUMMARY | 2024-05-03 21:56 | XMS_ITS | Encounter Summary ---
[place] [address] Care Team Providers Care Hydrogenation Operator Name Role Phone Vinayak Downs MD Primary Care Provider [phone] Encounter Details Date Type Department Care Team (Latest Contact Info) Description 10/29/2023 10:00 AM EDT - 10/29/2023 11:59 PM EDT Hospital Encounter [place] [phone] Discharge Disposition: Home Social History Tobacco Use [...] AM EDT Hospital Encounter Non-[place] [address] Arrived 09/24/2024 4:00 PM EDT Office Visit Cardiology at [address] [phone] Nathaniel Keita MD [facility] [place] [address] 11/28/2024 10:30 AM EDT Office Visit Cardiology at [address] [phone] Ruben Hartman PA [facility] [place] [address] documented as of this encounter Procedures Procedure [...] on filedocumented in this encounter Care Teams Hydrogenation Operator Relationship Specialty Start Date End Date Vinayak Downs MD [address] [place] [address] PCP - General Family Medicine 07/27/23 documented as of this encounter
--- OUTSIDE RECORDS SUMMARY | 2024-05-03 21:56 | XMS_ITS | Encounter Summary ---
Author Organization [facility] [place] [address] Care Team Providers Care Clinical Services Professional Name Role Phone Vinayak Downs MD Primary Care Provider [phone] Encounter Details Date Type Department Care Team [...] AM EDT Hospital Encounter Non-[place] [address] Arrived 09/24/2024 4:00 PM EDT Office Visit Cardiology at [address] [phone] Nathaniel Keita MD [facility] [place] [address] 11/28/2024 10:30 AM EDT Office Visit Cardiology at [address] [place] [address] Ruben Hartman, [facility] [place] [place] [address] documented as of this encounter Visit Diagnoses Not on filedocumented in this encounter Care Teams Clinical Services Professional Relationship Specialty Start Date End Date Vinayak Donws MD [address] [place] [address] PCP - General Family Medicine 07/27/23 documented as of this encounter
--- OUTSIDE RECORDS SUMMARY | 2024-05-03 21:56 | XMS_ITS | Encounter Summary ---
Author Organization [facility] [place] [address] Care Team Providers Care Major Account Representative Name Role Phone Alexander Adams MD Primary Care Provider [phone] Reason for Referral * Diagnostic Test (Routine) - Closed Specialty Diagnoses / Procedures Referred By Jessy enriquez Referred To Contact Radiology Diagnoses Mass of right parotid gland Procedures CT Neck Soft Tissue w Contrast (Generic) Otoniel Brown PA [facility] [place] [address] [facility] [place] [address] Referral ID Status Reason Start Date Expiration Date V isits Requested Visits Authorized [id number] Closed Specialty Service Requested 06/29/2021 08/27/2021 1 1 Encounter Details Date Type Department Care Team (Late st Contact Info) Description 06/05/2021 Orders [place] [address] Otoniel Brown PA [facility] [place] [place] [address] Mass of right parotid gland [...] AM EDT Hospital Encounter Non-Invasive [place] [address] Arrived 09/24/2024 4:00 PM EDT Office Visit Cardiology at [address] [phone] Nathaniel Keita MD [facility] [place] [address] 11/28/2024 10:30 AM EDT Office Visit Cardiology at [address] [phone] Ruben Hartman PA [facility] [place] [address] documented as of this encounter Procedures Procedure [...] who have questions please contact the health geriatric personal care aide that requested your imaging first. ? Narrative [...] patients who have questions please contactthe health geriatric personal care aide that requested your imaging first. 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
--- OUTSIDE RECORDS SUMMARY | 2024-05-03 21:56 | XMS_ITS | Encounter Summary ---
Author Organization [facility] [place] [address] Care Team Providers Care Billiard Parlor Manager Name Role Phone Alexander Adams MD Primary Care Provider [phone] Encounter Details Date Type Department Care Team (Late st Contact Info) Description 06/01/2023 Ancillary Procedure Radiology Library at [facility] [place] [phone] Vinayak Downs MD [address] [place] [address] Social History Tobacco Use Types [...] AM EDT Hospital Encounter Non-Invasive Cardiology Lab [facility] [place] [address] Arrived 09/24/2024 4:00 PM EDT Office Visit Cardiology at [address] [phone] Nathaniel Keita MD [facility] [place] [address] 11/28/2024 10:30 AM EDT Office Visit Cardiology at [address] [place] [address] Ruben Hartman PA [facility] [place] [address] documented as of this encounter Procedures Procedure Name Priority Date/Time Associated Diagnosis Comments FILM LIBRARY STORAGE ONLY DX HIP Routine 06/01/2023 12:00 AM EST documented in this encounter Results * Film Library- Storage Only DX Hip (06/01/2023 12:00 AM EST) Narrative [facility] - 04/18/2024 1:31 PM EST This exam is auto-finalizing. It's purpose is for storage only. Vinayak Downs MD IMG FILM LIBRARY ORD ERABLES [place], [place] documented in this encounter Visit Diagnoses Not on filedocumented in this encounter Care Teams Billiard Parlor Manager Relationship Specialty Start Date End Date Alexander Adams MD [address] [place] [address] PCP - General 04/06/12 07/26/23 documented as of this encounter
--- OUTSIDE RECORDS SUMMARY | 2024-05-03 21:56 | XMS_ITS | Encounter Summary ---
[place] [address] Care Team Providers Care Flange Turner Name Role Phone Alexander Adams MD Primary Care Provider [phone] Encounter Details Date Type Department Care Team (Late st Contact Info) Description 03/31/2023 Telephone Cardiology at [address] [phone] Lorenza Velazquez Social History Tobacco Use Types [...] AM EDT Hospital Encounter [place] [address] Arrived 09/24/2024 4:00 PM EDT Office Visit Cardiology at [address] [place] [phone] Nathaniel Keita MD [facility] [place] [address] 11/28/2024 10:30 AM EDT Office Visit Cardiology at [address] [place] [phone] Ruben Hartman, PA [facility] [place] [address] documented as of this encounter Visit Diagnoses Not on filedocumented in this encounter Care Teams Flange Turner Relationship Specialty Start Date End Date Alexander Adams MD [address] [place] [address] PCP - General 04/06/12 07/26/23 documented as of this encounter
--- OUTSIDE RECORDS SUMMARY | 2024-05-03 21:56 | XMS_ITS | Encounter Summary ---
[place] [address] Care Team Providers Care Rental Management Trainee Name Role Phone Alexander Adams MD Primary Care Provider [phone] Encounter Details Date Type Department Care Team (Latest Contact Info) Description 09/24/2020 - 09/24/2020 11:59 PM EDT Hospital Encounter [place] [phone] Vimal Meyers MD [facility] [place] [address] Ventricular fibrillation Discharge Disposition: Home Social History [...] AM EDT Hospital Encounter Non[place] [address] Arrived 09/24/2024 4:00 PM EDT Office Visit Cardiology at [address] [phone] Nathaniel Keita MD [facility] [place] [address] 11/28/2024 10:30 AM EDT Office Visit Cardiology at [address] [phone] Ruben Hartman PA [facility] [place] [address] documented as of this encounter Procedures Procedure [...] fibrillation documented in this encounter Care Teams Rental Management Trainee Relationship Specialty Start Date End Date Alexander Adams MD [address] [place] [address] PCP - General 04/06/12 07/26/23 documented as of this encounter
--- OUTSIDE RECORDS SUMMARY | 2024-05-03 21:56 | XMS_ITS | Encounter Summary ---
Author Organization [facility] Address [facility] [place] [address] Care Team Providers Care Instrument Lens Inspector Name Role Phone Vinayak Downs MD Primary Care Provider [phone] Reason for Referral * Diagnostic Test (Routine) - Closed Specialty Diagnoses / Procedures Referred By Contac t Referred To Contact Cardiology Diagnoses Ventricular fibrillation Coronary artery disease without angina pectoris, unspecified vessel or lesion type, unspecified whether [place] or transplanted heart Hypertension, unspecified type Procedures Echocardiogram Transthoracic Ruben Hartman PA [facility] [place] [address] Referral ID Status Reason Start Date Expiration Date V isits Requested Visits Authorized [id number] Closed Specialty Service Requested 07/27/2023 01/23/2024 1 1 Reason for Visit * Reason Comments Ventricular Arrhythmia Ventricular Fibri llation Encounter Details Date Type Department Care Team (Late st Contact Info) Description 07/27/2023 9:00 AM EDT Office Visit Cardiology at [address] [address] Ruben Hartman PA [facility] [place] [address] Ventricular fibrillation- with Medtronic ICD implanted 2009; Coronary artery disease without angina pectoris, unspecified vessel or lesion type, unspecified whether [place] or transplanted heart; Hypertension, unspecified type Social [...] 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): Left arm Patient Position: Sitting Pulse: 93 [...] - 07/02/2009 Medtronic John II VR Model# [id number], Serial# [id number] (pulse generator replaced 01/12/2019) Ventricular electrode: Medtronic Sprint Quattro MRI Model# 6947-58cm, Serial #[id number] Implanted 07/01/2009 (New)Pulse generator: Medtronic VISIA AF MRI Model# [id number], Serial# [id number] Implanted 01/12/2019 Diagnostics Tachy Mode: AF Monitor [...] for echocardiogram prior tothe appointment. Follow-up with [place] for device check in 6 months. documented in this encounter Plan of Treatment Upcoming Encounters Date Type Department Care Team (Late st Contact Info) Description 07/25/2024 10:00 AM EDT Hospital Encounter Non-[place] [address] Arrived 09/24/2024 4:00 PM EDT Office Visit Cardiology at [address] [place] [address] Nathaniel Keita MD [facility] [address] 11/28/2024 10:30 AM EDT Office Visit Cardiology at [address] [place] [address] Ruben Hartman PA [facility] [place] [address] Scheduled Orders Name Type Priority Associated Diagnoses Orde r Schedule Echocardiogram Transthoracic Echocardiography Routine Ventricular fibrillation- with Medtronic ICD implanted 2009 Coronary artery disease without angina pectoris, unspecified vessel or lesion type, unspecified whether [place] or transplanted heart Hypertension, unspecified type Expected: 10/26/2023, Expires: 04/26/2024 documented as of this encounter Visit Diagnoses Diagnosis Ventricular fibrillation- with Medtronic ICD implanted 2009 Ventricular fibrillation Coronary artery disease without angina pectoris, unspecified vessel or lesion type, unspecified whether [place] or transplanted heart Hypertension, unspecified type documented in this encounter Care Teams Instrument Lens Inspector Relationship Specialty Start Date End Date Vinayak Downs MD [address] [place] [address] PCP - General Family Medicine 07/27/23 documented as of this encounter
--- OUTSIDE RECORDS SUMMARY | 2024-05-03 21:56 | XMS_ITS | Encounter Summary ---
Author Organization [facility] [place] [address] Care Team Providers Care Tire Recapping Machine Operator Name Role Phone Alexander Adams MD Primary Care Provider [phone] Encounter Details Date Type Department Care Team (Late Contact Info) Description 05/23/2023 Telephone Cardiology at [address] [place] [address] Tammy Machado, RN Social History [...] Liane called from her patient bed at [facility]. She is recovering from a fractured hip and cannot keep the planned appointment with Carlos Hartman on 06/01/2023. documented in this encounter Plan of Treatment Upcoming Encounters Date Type Department Care Team (Late Contact Info) Description 07/25/2024 10:00 AM EDT Hospital Encounter [place] [address] Arrived 09/24/2024 4:00 PM EDT Office Visit Cardiology at [address] [phone] Nathaniel Keita MD [facility] [place] [address] 11/28/2024 10:30 AM EDT Office Visit Cardiology at [address] [phone] Ruben Hartman, LAUR[facility] [place] [address] documented as of this encounter Visit Diagnoses Not on filedocumented in this encounter Care Teams Tire Recapping Machine Operator Relationship Specialty Start Date End Date Alexander Adams MD [address] [place] [address] PCP - General 04/06/12 07/26/23 documented as of this encounter
--- OUTSIDE RECORDS SUMMARY | 2024-05-03 21:56 | XMS_ITS | Encounter Summary ---
Author Organization [facility]ly [facility] [place] [address] Care Team Providers Care Microelectronics Assembler Name Role Phone Alexander Adams MD Primary Care Provider Reason for Referral * Consultation (Routine) - Duplicate Referral Specialty Diagnoses / Procedures Referred By Contac t Referred To Contact Otolaryngology Diagnoses Other diseases of salivary glands Domenico Perez MD [address] [place] [address] [place] [address] Inocente Phoenix MD [facility] [place] [address] Referral ID Status Reason Start Date Expiration Date Visits Requested Visits Authorized [id number] Duplicate Referral Consult, Test & Treat 06/19/2021 06/19/2022 1 1 Encounter Details Date Type Department Care Team (Late st Contact Info) Description 06/19/2021 Transcribe Orders eDH Incoming Referrals [phone] Domenico Perez MD [address] [place] [address] [place] [address] Other diseases of salivary glands Social History [...] AM EDT Hospital Encounter Non-[place]vasive [place] [address] Arrived 09/24/2024 4:00 PM EDT Office Visit Cardiology at [address] [address] Nathaniel Keita MD [facility] [place] [address] 11/28/2024 10:30 AM EDT Office Visit Cardiology at [address] [address] Ruben Hartman PA [facility] [place] [address] Scheduled Referrals Name Type Priority Associated Diagnoses Orde r Schedule Referral to ENT Outpatient Referral Routine Other diseases of salivary glands Ordered: 06/19/2021 documented as of this encounter Visit Diagnoses Diagnosis Other diseases of salivary glands documented in this encounter Care Teams Microelectronics Assembler Relationship Specialty Start Date End Date Alexander Adams MD [address] [place] [address] PCP - General 04/06/12 07/26/23 documented as of this encounter
--- OUTSIDE RECORDS SUMMARY | 2024-05-03 21:56 | XMS_ITS | Encounter Summary ---
[place] [address] Care Team Providers Care Cereal Maker Name Role Phone Alexander Adams MD Primary Care Provider [phone] Encounter Details Date Type Department Care Team (Late st Contact Info) Description 06/13/2023 Telephone Cardiology at [address] [address] Lorenza Velazquez Social History Tobacco Use Types [...] check. Ok to have it done in [place] with Ruben or Dr Meyers. In the comments, please put, B>AX Lorenza Velazquez EP Scheduling documented in this encounter Plan of Treatment Upcoming Encounters Date Type Department Care Team (Late st Contact Info) Description 07/25/2024 10:00 AM EDT Hospital Encounter Non[place] [address] Arrived 09/24/2024 4:00 PM EDT Office Visit Cardiology at [address] [phone] Nathaniel Keita MD [facility] [place] [address] 11/28/2024 10:30 AM EDT Office Visit Cardiology at [address] [phone] Ruben Hartman PA [facility] [place] [address] documented as of this encounter Visit Diagnoses Not on filedocumented in this encounter Care Teams Cereal Maker Relationship Specialty Start Date End Date Alxeander Adams MD [address] [place] [address] PCP - General 04/06/12 07/26/23 documented as of this encounter
--- OUTSIDE RECORDS SUMMARY | 2024-05-03 21:56 | XMS_ITS | Encounter Summary ---
Author Organization [facility] [place] [address] Care Team Providers Care Punch Card Operator Name Role Phone Alexander Adams MD Primary Care Provider [phone] Encounter Details Date Type Department Care Team (Late st Contact Info) Description 06/10/2021 External [place] [address] Provider, Scanning Social History Tobacco Use Types [...] AM EDT Hospital Encounter Non-Invasive [place] [phone] Arrived 09/24/2024 4:00 PM EDT Office Visit Cardiology at [address] [phone] Nathaniel Keita MD [facility] [place] [address] 11/28/2024 10:30 AM EDT Office Visit Cardiology at [address] [place] [phone] Ruben Hartman, LAURA [facility] [place] [address] documented as of this encounter Procedures Procedure Name Priority Date/Time Associated Diagnosis Comments CYTOLOGY SCAN Routine 06/10/2021 documented in this encounter Results * Scan Doc: Cytology (06/10/2021) Historical Provider MD PEÑA MGR SCAN EX T ORDR/RSLT documented in this encounter Visit Diagnoses Not on filedocumented in this encounter Care Teams Punch Card Operator Relationship Specialty Start Date End Date Alexander Adams MD [address] [place] [address] PCP - General 04/06/12 07/26/23 documented as of this encounter
--- OUTSIDE RECORDS SUMMARY | 2024-05-03 21:56 | XMS_ITS | Encounter Summary ---
Author Organization [facility] [place] [address] Care Team Providers Care Medical Collections Representative Name Role Phone Alexander Adams MD Primary Care Provider [phone] Encounter Details Date Type Department Care Team (Latest Contact Info) Description 06/21/2020 - 06/21/2020 11:59 PM EDT Hospital Encounter [place] [phone] Norm Garcia MD [facility] [place] [address] Ventricular fibrillation Discharge Disposition: Home Social History [...] AM EDT Hospital Encounter [place] [address] Arrived 09/24/2024 4:00 PM EDT Office Visit Cardiology at [address] [phone] Nathaniel Keita MD [facility] [place] [address] 11/28/2024 10:30 AM EDT Office Visit Cardiology at [address] [phone] Ruben Hartman PA [facility] [place] [address] documented as of this encounter Procedures Procedure [...] pdf document Date of transmission: 06/21/2020 Device coal hauler: SWATHI Device type: SC ICD Presenting rhythm: vs TOOL SETTER <1% Battery: 3.03V, 10.5 years Episodes: Frequent brief episodes of tachy; uncertain if these events represent ventricular or supraventricular events in this single chamber device. no AF Stable lead trends. Activity 1 hr/day Alyson Oshea MD 06/23/2020 4:15 PM Norm Garcia MD IMPLANTABLE CARDIAC DEVICE documented in this encounter Visit Diagnoses Diagnosis Ventricular fibrillation documented in this encounter Care Teams Medical Collections Representative Relationship Specialty Start Date End Date Alexander Adams MD [address] [place] [address] PCP - General 04/06/12 07/26/23 documented as of this encounter
--- OUTSIDE RECORDS SUMMARY | 2024-05-03 21:56 | XMS_ITS | Encounter Summary ---
Author Organization [facility] [place] [address] Care Team Providers Care Manager Lan Name Role Phone Alexander Adams MD Primary Care Provider [phone] Encounter Details Date Type Department Care Team (Late st Contact Info) Description 05/22/2023 12:10 AM EST Ancillary Procedure Radiology Library at [facility] [place] [address] Vinayak Downs MD [address] [place] [address] Social History Tobacco Use Types [...] AM EDT Hospital Encounter Non-Invasive Cardiology Lab [facility] [place] [address] Arrived 09/24/2024 4:00 PM EDT Office Visit Cardiology at [address] [address] Nathaniel Keita MD [facility] [place] [address] 11/28/2024 10:30 AM EDT Office Visit Cardiology at [address] [place] [address] Ruben Hartman PA [facility] [place] [address] documented as of this encounter Procedures Procedure Name Priority Date/Time Associated Diagnosis Comments FILM LIBRARY STORAGE ONLY DX HIP Routine 05/22/2023 12:10 AM EST documented in this encounter Results * Film Library- Storage Only DX Hip (05/22/2023 12:10 AM EST) Narrative [facility] - 04/18/2024 1:31 PM EST This exam is auto-finalizing. It's purpose is for storage only. Vinayak Downs MD IMG FILM LIBRARY ORD ERABLES Performing Organization Address City/State/[facility] Co de Phone Number [place], [place] documented in this encounter Visit Diagnoses Not on filedocumented in this encounter Care Teams Manager Lan Relationship Specialty Start Date End Date Alexander Adams MD [address] [place] [address] PCP - General 04/06/12 07/26/23 documented as of this encounter
--- OUTSIDE RECORDS SUMMARY | 2024-05-03 21:56 | XMS_ITS | Encounter Summary ---
Author Organization [facility] Address [facility] [place] [address] Care Team Providers Care Business Risk Consultant Name Role Phone Alexander Adams MD Primary Care Provider [phone] Encounter Details Date Type Department Care Team (Late st Contact Info) Description 08/28/2019 Notes Only Cardiology at [address] [phone] Vimal Meyers MD [facility] [place] [address] Social History Tobacco Use Types Packs/Day Years [...] AM EDT Hospital Encounter [place] [address] Arrived 09/24/2024 4:00 PM EDT Office Visit Cardiology at [address] [phone] Ntahaniel Keita MD [facility] [place] [address] 11/28/2024 10:30 AM EDT Office Visit Cardiology at [address] [phone] Ruben Hartman PA [facility] [place] [address] documented as of this encounter Visit Diagnoses Not on filedocumented in this encounter Care Teams Business Risk Consultant Relationship Specialty Start Date End Date Alexander Adams MD [address] [place] [address] PCP - General 04/06/12 07/26/23 documented as of this encounter
--- OUTSIDE RECORDS SUMMARY | 2024-05-03 21:56 | XMS_ITS | Encounter Summary ---
Author Organization Replaced By [facility] [place] [address] Care Team Providers Care Appliance Repair Technician Name Role Phone Alexander Adams MD Primary Care Provider [phone] Encounter Details Date Type Department Care Team (Late st Contact Info) Description 08/10/2019 Telephone Cardiology at [address] [phone] Vimal Meyers MD [facility] [place] [address] Social History Tobacco Use Types Packs/Day Years [...] AM EDT Hospital Encounter Non-Invasive Cardiology Lab [facility] [place] [address] Arrived 09/24/2024 4:00 PM EDT Office Visit Cardiology at [address] [phone] Nathaniel Keita MD [facility] [place] [address] 11/28/2024 10:30 AM EDT Office Visit Cardiology at [address] [phone] Ruben Hartman PA [facility] [place] [address] documented as of this encounter Visit Diagnoses Not on filedocumented in this encounter Care Teams Appliance Repair Technician Relationship Specialty Start Date End Date Alexander Adams MD [address] [place] [address] PCP - General 04/06/12 07/26/23 documented as of this encounter
--- OUTSIDE RECORDS SUMMARY | 2024-05-03 21:56 | XMS_ITS | Encounter Summary ---
[place] [address] Care Team Providers Care Cyber Security Systems Engineer Name Role Phone Alexander Adams MD Primary Care Provider [phone] Encounter Details Date Type Department Care Team (Latest Contact Info) Description 05/02/2023 10:00 AM EST - 05/02/2023 11:59 PM [facility] Hospital Encounter Non[place] [address] Discharge Disposition: Home Social History Tobacco Use [...] AM EDT Hospital Encounter Non-[place] [address] Arrived 09/24/2024 4:00 PM EDT Office Visit Cardiology at [address] [phone] Nathaniel Keita MD [facility] [place] [address] 11/28/2024 10:30 AM EDT Office Visit Cardiology at [address] [phone] Ruben Hartman PA [facility] [place] [address] documented as of this encounter Procedures Procedure [...] on filedocumented in this encounter Care Teams Cyber Security Systems Engineer Relationship Specialty Start Date End Date Alexander Adams MD [address] [place] [address] PCP - General 04/06/12 07/26/23 documented as of this encounter
--- OUTSIDE RECORDS SUMMARY | 2024-05-03 21:56 | XMS_ITS | Encounter Summary ---
Author Organization [facility] [place] [address] Care Team Providers Care Playground Monitor Name Role Phone Vinayak Downs MD Primary Care Provider [phone] Encounter Details Date Type Department Care Team [...] AM EDT Hospital Encounter Non-Invasive [place] [address] Arrived 09/24/2024 4:00 PM EDT Office Visit Cardiology at [address] [phone] Nathaniel Keita MD [facility] [place] [address] 11/28/2024 10:30 AM EDT Office Visit Cardiology at [address] [place] [address] Ruben Hartman, LAURA [facility] [place] [address] documented as of this encounter Visit Diagnoses Not on filedocumented in this encounter Care Teams Playground Monitor Relationship Specialty Start Date End Date Vinayak Downs MD [address] [place] [address] PCP - General Family Medicine 07/27/23 documented as of this encounter
--- OUTSIDE RECORDS SUMMARY | 2024-05-03 21:56 | XMS_ITS | Encounter Summary ---
Author Organization [facility] Address [facility] [place] [address] Care Team Providers Care Project Landscape Architect Name Role Phone Vinayak Downs MD Primary Care Provider [phone] Reason for Visit * Reason Comments Ventricular Arrhythmia Medtronic ICD Encounter Details Date Type Department Care Team (Late st Contact Info) Description 04/25/2024 11:30 AM EST Office Visit Cardiology at [address] [phone] Ruben Hartman, LAURA [facility] [place] [address] Social History Tobacco Use Types Packs/Day Years [...] Pulse 80 04/25/2024 11:35 AM EST Temperature - - Respiratory Rate - - Oxygen Saturation - - Inhaled Oxygen Concentration - - Weight 75.3 kg (166 lb) 04/25/2024 11:35 AM EST Height 172.7 cm (5' 8) 04/25/2024 11:35 AM EST Body Mass Index 25.24 04/25/2024 11:35 AM EST documented in this encounter Plan of Treatment Upcoming Encounters Date Type Department Care Team (Late st Contact Info) Description 07/25/2024 10:00 AM EDT Hospital Encounter [place] [address] Arrived 09/24/2024 4:00 PM EDT Office Visit Cardiology at [address] [phone] Nathaniel Keita MD [facility] [place] [address] 11/28/2024 10:30 AM EDT Office Visit Cardiology at [address] [phone] Ruben Hartman PA [facility] [place] [address] documented as of this encounter Visit Diagnoses Not on filedocumented in this encounter Care Teams Project Landscape Architect Relationship Specialty Start Date End Date Vinayak Downs MD [address] [place] [address] PCP - General Family Medicine 07/27/23 documented as of this encounter
--- OUTSIDE RECORDS SUMMARY | 2024-05-03 21:56 | XMS_ITS | Encounter Summary ---
Author Organization [facility] [place] [address] Care Team Providers Care Preschool Associate Teacher Name Role Phone Alexander Adams MD Primary Care Provider Encounter Details Date Type Department Care Team (Late st Contact Info) Description 07/20/2023 Ancillary Procedure Radiology Library at [place] [address] Vinayak Downs MD [address] [place], [place] [address] Social History Tobacco Use Types Packs/Day Years [...] [facility] [facility] [place] [address] Arrived 09/24/2024 4:00 PM EDT Office Visit Cardiology at [address] [phone] Nathaniel Keita MD [facility] [place] [address] 11/28/2024 10:30 AM EDT Office Visit Cardiology at [address] [place] [address] Ruben Hartman PA [facility] [place] [address] documented as of this encounter Procedures Procedure Name Priority Date/Time Associated Diagnosis Comments FILM LIBRARY STORAGE ONLY DX HIP Routine 07/20/2023 12:00 AM EDT documented in this encounter Results * Film Library- Storage Only DX Hip (07/20/2023 12:00 AM EDT) Narrative [facility] - 04/18/2024 1:31 PM EST This exam is auto-finalizing. It's purpose is for storage only. Vinayak Downs MD IMG FILM LIBRARY ORD ERABLES [place], [place] documented in this encounter Visit Diagnoses Not on filedocumented in this encounter Care Teams Preschool Associate Teacher Relationship Specialty Start Date End Date Alexander Adams MD [address] [place] [address] PCP - General 04/06/12 07/26/23 documented as of this encounter
--- OUTSIDE RECORDS SUMMARY | 2024-05-03 21:56 | XMS_ITS | Encounter Summary ---
Author Organization [facility] [place] [address] Care Team Providers Care Fish Protector Name Role Phone Alexander Adams MD Primary Care Provider [phone] Encounter Details Date Type Department Care Team (Late st Contact Info) Description 05/22/2023 Ancillary Procedure Radiology Library at [facility] [place] [address] Vinayak Downs MD [address] [place], [place] [address] Social History Tobacco Use Types Packs/Day Years [...] AM EDT Hospital Encounter Non-Invasive Cardiology Lab [facility] [place] [address] Arrived 09/24/2024 4:00 PM EDT Office Visit Cardiology at [address] [phone] Nathaniel Keita MD [facility] [place] [address] 11/28/2024 10:30 AM EDT Office Visit Cardiology at [address] [place] [address] Ruben Hartman PA [facility] [place] [address] documented as of this encounter Procedures Procedure Name Priority Date/Time Associated Diagnosis Comments FILM LIBRARY STORAGE ONLY DX HIP Routine 05/22/2023 12:00 AM EST documented in this encounter Results * Film Library- Storage Only DX Hip (05/22/2023 12:00 AM EST) Narrative [facility] - 04/18/2024 1:31 PM EST This exam is auto-finalizing. It's purpose is for storage only. Vinayak Downs MD IMG FILM LIBRARY ORD ERABLES [place], [place] documented in this encounter Visit Diagnoses Not on filedocumented in this encounter Care Teams Fish Protector Relationship Specialty Start Date End Date Alexander Adams MD [address] [place] [address] PCP - General 04/06/12 07/26/23 documented as of this encounter
--- OUTSIDE RECORDS SUMMARY | 2024-05-03 21:56 | XMS_ITS | Encounter Summary ---
Author Organization [facility] [place] [address] Care Team Providers Care Oracle Bpm Consultant Name Role Phone Alexander Adams MD Primary Care Provider [phone] Reason for Referral * Diagnostic Test (Routine) - Closed Specialty Diagnoses / Procedures Referred By Contac t Referred To Contact Radiology Diagnoses Mass of right parotid gland Procedures CT Neck Soft Tissue w Contrast (Generic) Otoniel Brown PA [facility] [place] [address] [facility] [place] [address] Referral ID Status Reason Start Date Expiration Date V isits Requested Visits Authorized [id number] Closed Specialty Service Requested 06/29/2021 08/27/2021 1 1 Reason for Visit * Diagnostic Test (Routine) - Closed Specialty Diagnoses / Procedures Referred By Contbonifacio t Referred To Contact Radiology Diagnoses Mass of right parotid gland Procedures CT Neck Soft Tissue w Contrast (Generic) Otoniel Brown PA [facility] [place] [place] [address] [facility] [place] [address] Referral ID Status Reason Start Date Expiration Date V isits Requested Visits Authorized [id number] Closed Specialty Service Requested 06/29/2021 08/27/2021 1 1 Encounter Details Date Type Department Care Team (Latest Contact Info) Description 07/02/2021 8:28 AM EDT - 07/02/2021 11:59 PM EDT Hospital [place] [phone] Inocente Phoenxi MD [facility] [place] [address] Mass of right parotid gland Discharge Disposition: [...] AM EDT Hospital Encounter Non-Invasive [place] [address] Arrived 09/24/2024 4:00 PM EDT Office Visit Cardiology at [address] [phone] Nathaniel Keita MD [facility] [place] [address] 11/28/2024 10:30 AM EDT Office Visit Cardiology at [address] [phone] Ruben Hartman PA [facility] [place] [address] documented as of this encounter Procedures Procedure [...] who have questions please contact the health home health care case manager that requested your imaging first. ? Electronically signed by: Giovanni Gonzalez MD, [facility] ([phone]), at 07/02/2021 10:11 AM Narrative 07/02/2021 10:11 [...] patients who have questions please contactthe health home health care case manager that requested your imaging first. Electronically signed by: Giovanni Gonzalez MD, [facility]([phone]), at 07/02/2021 10:11 AM Inocente Phoenix MD [facility] ORDERABLES documented in this encounter Visit [...] mLs documented in this encounter Care Teams Oracle Bpm Consultant Relationship Specialty Start Date End Date Alexander Adams MD [address] [place] [address] PCP - General 04/06/12 07/26/23 documented as of this encounter
--- OUTSIDE RECORDS SUMMARY | 2024-05-03 21:56 | XMS_ITS | Encounter Summary ---
[place] [address] Care Team Providers Care Aviation Tactical Readiness Officer Name Role Phone Vinayak Downs MD Primary Care Provider [phone] Encounter Details Date Type Department Care Team (Latest Contact Info) Description 01/27/2024 10:00 AM EDT - 01/27/2024 11:59 PM EDT Hospital Encounter Non[place] [phone] Discharge Disposition: Home Social History Tobacco Use [...] AM EDT Hospital Encounter Non-[place] [address] Arrived 09/24/2024 4:00 PM EDT Office Visit Cardiology at [address] [phone] Nathaniel Keita MD [facility] [place] [address] 11/28/2024 10:30 AM EDT Office Visit Cardiology at [address] [phone] Ruben Hartman PA [facility] [place] [address] documented as of this encounter Procedures Procedure [...] on filedocumented in this encounter Care Teams Aviation Tactical Readiness Officer Relationship Specialty Start Date End Date Vinayak Downs MD [address] [place] [address] PCP - General Family Medicine 07/27/23 documented as of this encounter
--- OUTSIDE RECORDS SUMMARY | 2024-05-03 21:56 | XMS_ITS | Encounter Summary ---
Author Organization [facility] Address [facility] [place] [address] Care Team Providers Care Director Retail Brand Development Name Role Phone Alexander Adams MD Primary Care Provider [phone] Encounter Details Date Type Department Care Team (Late st Contact Info) Description 08/10/2019 Telephone Cardiology at [address] [place] [address] Nathaniel Keita MD [facility] [address] Social History Tobacco Use Types Packs/Day Years [...] when she should seeyou again. No issues. #[phone] documented in this encounter Plan of Treatment Upcoming Encounters Date Type Department Care Team (Late st Contact Info) Description 07/25/2024 10:00 AM EDT Hospital Encounter Non-Invasive [place] [address] Arrived 09/24/2024 4:00 PM EDT Office Visit Cardiology at [address] [phone] Nathaniel Keita MD [facility] [place] [address] 11/28/2024 10:30 AM EDT Office Visit Cardiology at [address] [phone] Ruben Hartman PA [facility] [place] [address] documented as of this encounter Visit Diagnoses Not on filedocumented in this encounter Care Teams Director Retail Brand Development Relationship Specialty Start Date End Date Alexander Adams MD [address] [place] [address] PCP - General 04/06/12 07/26/23 documented as of this encounter
--- OUTSIDE RECORDS SUMMARY | 2024-05-03 21:56 | XMS_ITS | Encounter Summary ---
[place] [address] Care Team Providers Care Charge Gang Weigher Name Role Phone Alexander Adams MD Primary Care Provider [phone] Encounter Details Date Type Department Care Team (Latest Contact Info) Description 02/01/2023 10:00 AM EDT - 02/01/2023 11:59 PM EDT Hospital Encounter [place] [phone] Discharge Disposition: Home Social History Tobacco Use [...] EDT Hospital Encounter Non-Invasive Cardiology Lab [facility] [place] [address] Arrived 09/24/2024 4:00 PM EDT Office Visit Cardiology at [address] [phone] Nathaniel Keita MD [facility] [place] [place] [address] 11/28/2024 10:30 AM EDT Office Visit Cardiology at [address] [phone] Ruben Hartman PA [facility] [place] [address] documented as of this encounter Procedures Procedure [...] on filedocumented in this encounter Care Teams Charge Gang Weigher Relationship Specialty Start Date End Date Alexander Adams MD [address] [place] [address] PCP - General 04/06/12 07/26/23 documented as of this encounter
--- OUTSIDE RECORDS SUMMARY | 2024-05-03 21:57 | XMS_ITS | Encounter Summary ---
Author Organization [facility] Address [place], [place] Care Team Providers Care Ep Tech Name Role Phone Alexander Adams MD Primary Care Provider [phone] Reason for Visit * Reason Comments Cardiomyopathy Encounter Details Date Type Department Care Team (Late st Contact Info) Description 06/23/2015 3:00 PM EDT Office Visit Cardiology at [address] [phone] Thaddeus Cespedes, RN Ventricular fibrillation- with Medtronic [...] in this encounter Progress Notes * Thaddeus Cespedes, RN - 06/23/2015 2:52 PM EDT Ms. Cole is a 69 years old female who presents to the clinic today for ICD interrogation. The ICDwas implanted 07/01/2009 due to Secondary prevention s/p ventricular fibrillation cardiac arrest. She voices no device-related complaints today Pt enrolled in SLS study. PCP: ALEXANDER ADAMS MD Machine Engineer: Milind Beasley MD Device and lead information Final Parameters: Ventricular lead: Medtronic Sprint Quattro Model# 6947-58 cm Serial #[id number] ??? Bipolar, steroid-tipped, active-fixation IS-1, DF-1 lead ??? Access: Left axillary vein ??? Location: Right ventricular apex ??? R wave, ICD: 8.0 mV ??? Pacing threshold, ICD: 1.0 V at 0.5 ms ??? Impedance, ICD: 532 ohms ??? HVB Impedance 33 ohms ??? SVC Impedance 39 ohms ??? Pace the diaphragm at 10 V: No Pulse generator: Medtronic John II VR Model# [id number] Serial# [id number] ??? Single-chamber ICD ??? Location: Subcutaneous Parameters: VF detection rate: >200 bpm VF therapy: ATP during charging, 30J, 35J x 5 FVT detection rate: via VF 250 bpm FVT therapy: Burst(1), 30J, 35J x 4 VT detection rate:182 bpm VT therapy: Burst(3), 20J, 35J x 4 Enhancement: Wavelet, VT Monitor Bradycardia pacing: VVI 40 Follow-up Battery status: 3.05 V INDUSTRIAL ENGINEERING TECHNOLOGIST: 2.63 V Charge time: 9.1 sec 01/02/2015 [...] AM EDT Hospital Encounter Non-[place]vasive [place] [address] Arrived 09/24/2024 4:00 PM EDT Office Visit Cardiology at [address] [address] Nathaniel Keita MD [facility] [address] 11/28/2024 10:30 AM EDT Office Visit Cardiology at [address] [phone] Ruben Hartamn, LAURA [facility] [place] [address] documented as of this encounter Visit Diagnoses Diagnosis Ventricular fibrillation- with Medtronic ICD implanted 2009 Ventricular fibrillation documented in this encounter Care Teams Ep Tech Relationship Specialty Start Date End Date Alexander Adams MD [address] [place] [address] PCP - General 04/06/12 07/26/23 documented as of this encounter
--- OUTSIDE RECORDS SUMMARY | 2024-05-03 21:57 | XMS_ITS | Encounter Summary ---
Author Organization [facility] [place] [address] Care Team Providers Care Residential Sales Associate Name Role Phone Alexander Adams MD Primary Care Provider [phone] Reason for Visit * Reason Onset Date Comments Medication Refill 12/06/2014 Encounter Details Date Type Department Care Team (Late st Contact Info) Description 12/06/2014 Refill [place] [phone] Jaylin Salcido APRN Social History Tobacco Use [...] AM EDT Hospital Encounter Non-Invasive [place] [phone] Arrived 09/24/2024 4:00 PM EDT Office Visit Cardiology at [address] [phone] Nathaniel Keita MD [facility] [place] [address] 11/28/2024 10:30 AM EDT Office Visit Cardiology at [address] [address] Ruben Hartman, PA [facility] [place] [address] documented as of this encounter Visit Diagnoses Not on filedocumented in this encounter Care Teams Residential Sales Associate Relationship Specialty Start Date End Date Alexander Adams MD [address] [place] [address] PCP - General 04/06/12 07/26/23 documented as of this encounter
--- OUTSIDE RECORDS SUMMARY | 2024-05-03 21:57 | XMS_ITS | Encounter Summary ---
[place] [address] Care Team Providers Care Gas Plant Worker Name Role Phone Alexander Adams MD Primary Care Provider [phone] Reason for Visit * Reason Onset Date Comments Medication Refill 04/30/2015 Encounter Details Date Type Department Care Team (Late st Contact Info) Description 04/30/2015 Refill [place] [phone] Jaylin Salcido APRN Social History Tobacco Use [...] like to get a prescription sent to [facility] in [place] so she make check on the damian of this. documented in this encounter Plan of Treatment Upcoming Encounters Date Type Department Care Team (Late st Contact Info) Description 07/25/2024 10:00 AM EDT Hospital Encounter Non-Invasive Cardiology Lab [facility] [place] [address] Arrived 09/24/2024 4:00 PM EDT Office Visit Cardiology at [address] [phone] Nathaniel Keita MD [facility] [place] [address] 11/28/2024 10:30 AM EDT Office Visit Cardiology at [address] [place] [address] Ruben Hartman PA [facility] [place] [address] documented as of this encounter Visit Diagnoses Not on filedocumented in this encounter Care Teams Gas Plant Worker Relationship Specialty Start Date End Date Alexander Adams MD [address] [place] [address] PCP - General 04/06/12 07/26/23 documented as of this encounter
--- OUTSIDE RECORDS SUMMARY | 2024-05-03 21:57 | XMS_ITS | Encounter Summary ---
[place] [address] Care Team Providers Care Grainer Machine Name Role Phone Alexander Adams MD Primary Care Provider [phone] Encounter Details Date Type Department Care Team (Late st Contact Info) Description 07/07/2015 Notes [place] [address] Lu Robbins LD Social History Tobacco Use [...] Once signed paperwork will be faxed to [place]. documented in this encounter Plan of Treatment Upcoming Encounters Date Type Department Care Team (Late st Contact Info) Description 07/25/2024 10:00 AM EDT Hospital Encounter Non-Invasive [place] [address] Arrived 09/24/2024 4:00 PM EDT Office Visit Cardiology at [address] [phone] Nathaniel Keita MD [facility] [place] [address] 11/28/2024 10:30 AM EDT Office Visit Cardiology at [address] [phone] Ruben Hartman, [facility] [place] [address] documented as of this encounter Visit Diagnoses Not on filedocumented in this encounter Care Teams Grainer Machine Relationship Specialty Start Date End Date Alexander Adams MD [address] [place] [address] PCP - General 04/06/12 07/26/23 documented as of this encounter
--- OUTSIDE RECORDS SUMMARY | 2024-05-03 21:57 | XMS_ITS | Encounter Summary ---
Author Organization [facility] [place] [address] Care Team Providers Care Maintenance Clerk Name Role Phone Alexander Adams MD Primary Care Provider [phone] Reason for Visit * Reason Comments Follow-up CAD, Medtronic pacem layton battery check Encounter Details Date Type Department Care Team (Late st Contact Info) Description 08/29/2018 8:20 AM EDT Office Visit Cardiology at [address] [address] Rudy Moralez Jr., MD Coronary artery disease, angina presence unspecified, unspecified vessel or lesion type, unspecified whether [place] or transplanted heart; Ventricular fibrillation- with Medtronic [...] Ventricular fibrillation- with Medtronic ICD implanted 200906/21/2009 [facility]--- VF presenting, ROSC post shock by EMS, intubated; Dual chamber ICD - 07/02/2009 Medtronic John II VR Model# [id number], Serial# [id number] ??? CAD, out of hosp arrest and [...] AM EDT Hospital Encounter Non-[place] [address] Arrived 09/24/2024 4:00 PM EDT Office Visit Cardiology at [address] [phone] Nathaniel Keita MD [facility] [place] [address] 11/28/2024 10:30 AM EDT Office Visit Cardiology at [address] [phone] Ruben Hartman PA [facility] [place] [address] documented as of this encounter Visit Diagnoses Diagnosis Coronary artery disease, angina presence unspecified, unspecified vessel or lesion type, unspecified whether [place] or transplanted heart Ventricular fibrillation- with Medtronic ICD implanted 2009 Ventricular fibrillation Essential hypertension Unspecified essential hypertension documented in this encounter Care Teams Maintenance Clerk Relationship Specialty Start Date End Date Alexander Adams MD [address] [place] [address] PCP - General 04/06/12 07/26/23 documented as of this encounter
--- OUTSIDE RECORDS SUMMARY | 2024-05-03 21:57 | XMS_ITS | Encounter Summary ---
Author Organization [facility] [place] [address] Care Team Providers Care Travel Money Advisor Name Role Phone Alexander Adams MD Primary Care Provider [phone] Encounter Details Date Type Department Care Team (Late st Contact Info) Description 03/30/2017 Abstract Cardiology at [address] [phone] Laura Marin, RN Social History Tobacco Use [...] AM EDT Hospital Encounter Non-Invasive [place] [address] Arrived 09/24/2024 4:00 PM EDT Office Visit Cardiology at [address] [phone] Nathaniel Keita MD [facility] [place] [address] 11/28/2024 10:30 AM EDT Office Visit Cardiology at [address] [place] [phone] Ruben Hartman, LAURA [facility] [place] [address] documented as of this encounter Visit Diagnoses Not on filedocumented in this encounter Care Teams Travel Money Advisor Relationship Specialty Start Date End Date Alexander Adams MD [address] [place] [address] PCP - General 04/06/12 07/26/23 documented as of this encounter
--- OUTSIDE RECORDS SUMMARY | 2024-05-03 21:57 | XMS_ITS | Encounter Summary ---
[place] [address] Care Team Providers Care Seam Stayer Name Role Phone Alexander Adams MD Primary Care Provider [phone] Reason for Visit * Reason Onset Date Comments Medication Refill 11/14/2015 Encounter Details Date Type Department Care Team (Late st Contact Info) Description 11/14/2015 Ref[place] [phone] Donna Driscoll LNA Social History Tobacco Use [...] AM EDT Hospital Encounter Non-Invasive [place] [phone] Arrived 09/24/2024 4:00 PM EDT Office Visit Cardiology at [address] [phone] Nathaniel Keita MD [facility] [place] [address] 11/28/2024 10:30 AM EDT Office Visit Cardiology at [address] [place] [address] Ruben Hartman, PA [facility] [place] [address] documented as of this encounter Visit Diagnoses Not on filedocumented in this encounter Care Teams Seam Stayer Relationship Specialty Start Date End Date Alexander Adams MD [address] [place] [address] PCP - General 04/06/12 07/26/23 documented as of this encounter
--- OUTSIDE RECORDS SUMMARY | 2024-05-03 21:57 | XMS_ITS | Encounter Summary ---
[place] [address] Care Team Providers Care Field Artillery Senior Sergeant Name Role Phone Alexander Adams MD Primary Care Provider [phone] Reason for Visit * Reason Onset Date Comments Medication Refill 09/23/2016 Encounter Details Date Type Department Care Team (Late st Contact Info) Description 09/23/2016 Ref[place] [phone] Donna Driscoll LNA Social History Tobacco Use [...] AM EDT Hospital Encounter Non-[place] [phone] Arrived 09/24/2024 4:00 PM EDT Office Visit Cardiology at [address] [phone] Nathaniel Keita MD [facility] [place] [address] 11/28/2024 10:30 AM EDT Office Visit Cardiology at [address] [place] [address] Ruben Hartman, PA [facility] [address] documented as of this encounter Visit Diagnoses Not on filedocumented in this encounter Care Teams Field Artillery Senior Sergeant Relationship Specialty Start Date End Date Alexander Adams MD [address] [place] [address] PCP - General 04/06/12 07/26/23 documented as of this encounter
--- OUTSIDE RECORDS SUMMARY | 2024-05-03 21:57 | XMS_ITS | Encounter Summary ---
Author Organization [facility] [place] [address] Care Team Providers Care Manager Mental Health Name Role Phone Alexander Adams MD Primary Care Provider [phone] Encounter Details Date Type Department Care Team (Late st Contact Info) Description 03/04/2015 Orders Only Cardiology at [address] [phone] Social History Tobacco Use Types Packs/Day Years [...] AM EDT Hospital Encounter Non-Invasive [place] [address] Arrived 09/24/2024 4:00 PM EDT Office Visit Cardiology at [address] [phone] Nathaniel Keita MD [facility] [place] [address] 11/28/2024 10:30 AM EDT Office Visit Cardiology at [address] [place] [address] Ruben Hartman, LAURA [facility] [place] [address] documented as of this encounter Procedures Procedure Name Priority Date/Time Associated Diagnosis Comments CARDIAC DEVICE CHECK - REMOTE Routine 03/04/2015 8:33 AM EST documented in this encounter Results * (ABNORMAL) Cardiac device check - Remote (03/04/2015 8:33 AM EST) Date Time Interrogation Session [id number] [employer] Implantable Pulse Generator Medicaid Specialist Medtronic ID[employer] Implantable Pulse Generator Model John II VR [id number] [employer] Implantable Pulse Generator Serial Number [id number] ID[employer] Type Interrogation Session Remote IDCO Implantable [...] ms IDCO Battery Date Time of Measurements [id number] IDCO Battery Status OK IDCO Battery FIREFIGHTER TYPE ONE Trigger 2.6251 IDCO Battery Voltage 3.05 V IDCO Capacitor Charge Type Reformation IDCO Capacitor Last Charge Date Time [id number] IDCO Capacitor Charge Time 9.118 s IDCO Capacitor Charge Energy 35 J IDCO Episode Identifier 141 IDCO Episode Type Category SVT IDCO Episode Date Time [id number] IDCO Episode Duration 5 s IDCO Episode Identifier 153 IDCO Episode Date Time [id number] IDCO Episode Duration 1 s IDCO Episode Identifier 152 IDCO Episode Date Time [id number] IDCO Episode Duration 0 s IDCO Episode Identifier 151 IDCO Episode Date Time [id number] IDCO Episode Duration 1 s IDCO Episode Identifier 150 IDCO Episode Date Time [id number] IDCO Episode Duration 1 s IDCO Episode Identifier 149 IDCO Episode Date Time [id number] IDCO Episode Duration 1 s IDCO Episode Identifier 148 IDCO Episode Date Time [id number] IDCO Episode Duration 0 s IDCO Episode Identifier 147 IDCO Episode Date Time [id number] IDCO Episode Duration 0 s IDCO Episode Identifier 146 IDCO Episode Date Time [id number] IDCO Episode Duration 0 s IDCO Episode Identifier 145 IDCO Episode Date Time [id number] IDCO Episode Duration 2 s IDCO Episode Identifier 144 IDCO Episode Date Time [id number] IDCO Episode Duration 1 s IDCO Episode Identifier 143 IDCO Episode Date Time [id number] IDCO Episode Duration 1 s IDCO Episode Identifier 142 IDCO Episode Date Time [id number] IDCO Episode Duration 1 s IDCO Episode Identifier 140 IDCO Episode Date Time [id number] IDCO Episode Duration 1 s IDCO Episode Identifier 139 IDCO Episode Date Time [id number] IDCO Episode Duration 1 s IDCO Episode Identifier 138 IDCO Episode Date Time [id number] IDCO Episode Duration 2 s IDCO Marcel Statistic Date Time Start [id number] IDCO Marcel Statistic Date Time End [id number] IDCO Marcel Statistic RV Percent Paced 0.00 % IDCO Therapy Statistic Recent Shocks Delivered 0 IDCO Therapy Statistic Recent Shocks Aborted 0 IDCO Therapy Statistic Recent ATP Delivered 0 IDCO Therapy Statistic Recent Date Time Start [id number] IDCO Therapy Statistic Recent Date Time End 61602752490932 IDCO Therapy Statistic Total Shocks Delivered 0 IDCO Therapy Statistic Total Shocks Aborted 0 IDCO Therapy Statistic Total ATP Delivered 0 IDCO Therapy Statistic Total Date Time Start [id number] IDCO Therapy Statistic Total Date Time End [id number] IDCO Episode Statistic Recent Count 0 IDCO Episode Statistic Type Category VF IDCO Episode Statistic Recent Count 0 IDCO Episode Statistic Type Category VT IDCO Episode Statistic Recent Count 0 IDCO Episode Statistic Recent Count 0 IDCO Episode Statistic Recent Count 14 IDCO Episode Statistic Recent Count 1 IDCO Episode Statistic Type Category SVT IDCO Episode Statistic Recent Date Time Start [id number] IDCO Episode Statistic Recent Date Time End [id number] IDCO Episode Statistic Recent Date Time Start [id number] IDCO Episode Statistic Recent Date Time End [id number] IDCO Episode Statistic Recent Date Time Start [id number] IDCO Episode Statistic Recent Date Time End [id number] IDCO Episode Statistic Recent Date Time Start 73688280539452 IDCO Episode Statistic Recent Date Time End 22396183428850 IDCO Episode Statistic Recent Date Time Start 16229618861533 IDCO Episode Statistic Recent Date Time End 64936611446338 IDCO Episode Statistic Recent Date Time Start 82465307372935 IDCO Episode Statistic Recent Date Time End [id number] IDCO Episode Statistic Total Count 0 IDCO Episode Statistic Type Category VF IDCO Episode Statistic Total Count 0 IDCO Episode Statistic Type Category VT IDCO Episode Statistic Total Count 0 IDCO Episode Statistic Total Count 0 IDCO Episode Statistic Total Count 152 IDCO Episode Statistic Total Count 1 IDCO Episode Statistic Type Category SVT IDCO Episode Statistic Total Date Time Start [id number] IDCO Episode Statistic Total Date Time End [id number] IDCO Episode Statistic Total Date Time Start 41271693779046 IDCO Episode Statistic Total Date Time End 22026644623152 IDCO Episode Statistic Total Date Time Start 93493566411940 IDCO Episode Statistic Total Date Time End 04256665305549 IDCO Episode Statistic Total Date Time Start 18668243623337 IDCO Episode Statistic Total Date Time End 23235781129264 IDCO Episode Statistic Total Date Time Start 74629735594520 IDCO Episode Statistic Total Date Time End [id number] IDCO Episode Statistic Total Date Time Start 76361679581120 IDCO Episode Statistic Total Date Time End 41594869937984 IDCO Anatomical Region Laterality Modality Other 03/04/2015 8:33 AM EST Physician Cardiology IMPLANTABLE CARD IAC DEVICE documented in this encounter Visit Diagnoses Not on filedocumented in this encounter Care Teams Manager Mental Health Relationship Specialty Start Date End Date Alexander Adams MD [address] [place] [address] PCP - General 04/06/12 07/26/23 documented as of this encounter
--- OUTSIDE RECORDS SUMMARY | 2024-05-03 21:57 | XMS_ITS | Encounter Summary ---
Author Organization [facility] [place] [address] Care Team Providers Care Wash Oil Cooler Operator Name Role Phone Alexander Adams MD Primary Care Provider [phone] Reason for Visit * Auth/Cert Specialty Diagnoses / Procedures Referred By Jessy t Referred To Contact Diagnoses ICD (implantable cardioverter-defibrillator) in place [Z95.810] Procedures ELECTROPHYSIOLOGY PROCEDURE Referral ID Status Reason Start Date Expiration Date Visits Re quested Visits Authorized [id number] 1 1 Encounter Details Date Type Department Care Team (Latest Contact Info) Description 01/12/2019 6:54 AM EDT - 01/12/2019 12:00 PM EDT Hospital Encounter [place] [address] Parvez Meyers MD [facility] [place] [address] Discharge Disposition: Home Social History Tobacco Use [...] incision. Make sure to use a cloth winder machine operator (such as a towel) in between the [...] F. The office scheduling phone number is [phone]. ARM MOVEMENT RESTRICTIONS POST-IMPLANT - Do not [...] this product, please call the office at [phone]. documented in this encounter Medications at Time [...] - 01/12/2019 7:55 AM EDT Liane Cole [id number] 01/12/2019 73 y.o. Cardiology EP History and [...] a chief complaint of ICD at [facility]. When she was seen in the [...] 1. 73 y.o. woman with ICD at [facility] here for elective pulse generator replacement 2. [...] AM EDT Hospital Encounter Non-Invasive Cardiology Lab [facility] [place] [address] Arrived 09/24/2024 4:00 PM EDT Office Visit Cardiology at [address] [phone] Nathaniel Keita MD [facility] [place] [address] 11/28/2024 10:30 AM EDT Office Visit Cardiology at [address] [phone] Ruben Hartman PA [facility] [place] [address] documented as of this encounter Procedures Procedure [...] (ABNORMAL) POCT Glucose (01/12/2019 10:09 AM EDT) [facility] Signature Glucose, POC 351(H) 65 - 199 mg/dL [facility] Comment: Supplemental ranges: <140 mg/dL before meals <180 mg/dL all other times of the day Blood specimen (specimen) 01/12/2019 10:09 AM EDT 01/12/2019 10:09 AM EDT Parvez Meyers MD POINT OF CARE TEST O RDHARVINDER Performing Organization Address [facility] de Phone Number [facility] [place] [address] * (ABNORMAL) POCT Glucose (01/12/2019 7:33 AM EDT) Glucose, POC 224(H) 65 - 199 mg/dL [facility] Comment: Supplemental ranges: <140 mg/dL before meals <180 mg/dL all other times of the day Blood specimen (specimen) 01/12/2019 7:33 AM EDT 01/12/2019 7:33 AM EDT Parvez Meyers MD POINT OF CARE TEST O KAMARI Performing Organization Address [facility] de Phone Number [facility] [place] [address] * Differential, Automated (01/12/2019 7:18 AM EDT) Neutrophil % 59.6 % [facility] Neutrophil Absolute 5.23 1.70 - 6.10 x10(3)/[facility] Lymph % 29.0 % [facility] Lymphocytes Abs 2.5 0.9 - 3.2 x10(3)/[facility] Monocyte % 6.6 % [facility] Monocyte Abs 0.6 0.3 - 0.9 x10(3)/[facility] Eos % 3.8 % [facility] Eosinophils Abs 0.3 0.0 - 0.4 x10(3)/[facility] Basophil % 0.5 % [facility] Baso Absolute 0.0 0.0 - 0.1 x10(3)/[facility] Immature Gran % 0.50 % [facility] Comment: Immature granulocytes(IG's)percentage and absolute count will include metamyelocytes, myelocytes, and promyelocytes. Blood smears from CBCs yielding IG's will be scanned manually for concordance. If this scan disagrees with the automated IG or if promyelocytes are noted, a manual differential will be performed. Immature Gran Absolute 0.04 0.00 - 0.04 x10(3)/[facility] Blood specimen (specimen) 01/12/2019 7:18 AM EDT 01/12/2019 7:38 AM EDT Narrative Resulting Agency Comment Spec In Lab Parvez Meyers MD HEMATOLOGY ORDERABLE S Performing Organization Address City/State/[facility] Co de Phone Number [facility] [place] [address] * Hemogram (01/12/2019 7:18 AM EDT) White Blood Cell 8.8 4.0 - 9.5 x10(3)/[facility] Red Blood Cell 4.03 4.00 - 5.21 x10(6)/[facility] Hemoglobin 11.7 11.7 - 15.5 gm/dL [facility] Hematocrit 36.2 35.7 - 45.8 % [facility] Mean Cell Volume 89.8 82.6 - 94.[address] [facility] Mean Cell Hemoglobin 29.0 27.1 - 32.[address] [facility] Mean Cell Hemoglobin Concentration 32.3 31.7 - 35.0 gm/dL [facility] Platelet 224 145 - 357 x10(3)/[facility] RDW Standard Deviation 44.5 37.0 - 46.[address] [facility] RDW coefficient of variation 13.5 11.5 - 14.1 % [facility] Mean Platelet Volume 10.6 7.6 - 12.[address] [facility] NRBC% auto 0.0 % [facility] NRBC Absolute 0.000 0.000 - 0.000 x10(3)/mcL [facility] Blood specimen (specimen) 01/12/2019 7:18 AM EDT 01/12/2019 7:38 AM EDT Narrative Resulting Agency Comment Spec In Lab Parvez Meyers MD HEMATOLOGY ORDERABLE S [facility] [place] [address] * (ABNORMAL) BMP w/fasting Glucose (01/12/2019 7:18 AM EDT) Glucose Fasting 216(H) 65 - 99 mg/dL [facility] Comment: ?Fasting* Glucose Interpretive Criteria [...] of Diabetes Mellitus, Position Statement from the [place] [employer]. ??Diabetes Care, Volume 33, Supplement 1, Apr 2009 Blood Urea Nitrogen 18 8 - 18 mg/dL [facility] Creatinine 0.89 0.70 - 1.20 mg/dL [facility] Sodium 141 135 - 145 mmol/L [facility] Potassium 4.4 3.5 - 5.0 mmol/L [facility] Comment: Please note: ??Patients with WBC >100,000 may have falsely elevated Potassium levels. ??For accurate Potassium quantification in these patients send serum separator tube (gold top) for subsequent determinations. ??Contact the Clinical Chemistry Laboratory if there are any questions. Chloride 101 98 - 107 mmol/L [facility] Carbon Dioxide 27 22 - 31 mmol/L [facility] Anion Gap 13 5 - 15 mmol/L [facility] Calcium 9.4 8.5 - 10.5 mg/dL [facility] Est Glomerular Filtration Rate 64 >=60 mL/min/1. 73 m?? [facility] Comment: The eGFR was calculated using the CKD-EPI equation. As with all creatinine based estimates of kidney function, eGFR values calculated with the CKD-EPI equation are not accurate in patients with acute kidney failure, extremes of body mass or the acutely ill. http://[employer] eGFR 74 >=60 mL/min/1. 73 m?? [facility] Comment: The eGFR was calculated using the CKD-EPI equation. As with all creatinine based estimates of kidney function, eGFR values calculated with the CKD-EPI equation are not accurate in patients with acute kidney failure, extremes of body mass or the acutely ill. [email or web address]/[facility]nkf Blood specimen (specimen) 01/12/2019 7:18 AM EDT 01/12/2019 7:38 AM EDT Narrative Resulting Agency Comment Spec In Lab Parvez Meyers MD CHEMISTRY ORDERABLES Performing Organization Address City/State/[facility] Co de Phone Number [facility] [place] [address] * SCAN DOC: IMPLANTABLE DEVICES (01/12/2019 12:00 [...] to induce or maintain moderate sedation per [facility] Moderate Sedation Policy for the duration of the EP procedure., As needed to induce or maintain moderate sedation per [facility] Moderate Sedation Policy for the duration of [...] to induce or maintain moderate sedation per [facility] Moderate Sedation Policy for the duration of the EP procedure., As needed to induce or maintain moderate sedation per [facility] Moderate Sedation Policy for the duration of [...] to induce or maintain moderate sedation per [facility] Moderate Sedation Policy for the duration of the EP procedure., As needed to induce or maintain moderate sedation per [facility] Moderate Sedation Policy for the duration of [...] to induce or maintain moderate sedation per [facility] Moderate Sedation Policy for the duration of the EP procedure., As needed to induce or maintain moderate sedation per [facility] Moderate Sedation Policy for the duration of [...] Alyson Mercado RN)[phone] (Given - Provider: Alyson Mercado, SANDRA)0853 (Given - Provider: Alyson Mercado, SANDRA)0909 (Given - Provider: Alyson Mercado RN) documented in this encounter Care Teams Wash Oil Cooler Operator Relationship Specialty Start Date End Date Alexander Adams MD [address] [place] [address] PCP - General 04/06/12 07/26/23 documented as of this encounter
--- OUTSIDE RECORDS SUMMARY | 2024-05-03 21:57 | XMS_ITS | Encounter Summary ---
[place] [address] Care Team Providers Care Cheese Cooker Name Role Phone Alexander Adams MD Primary Care Provider [phone] Reason for Visit * Reason Comments Diabetes Encounter Details Date Type Department Care Team (Late st Contact Info) Description 09/08/2015 4:00 PM EDT Office [place] [phone] Jaylin Salcido APRN Type 1 diabetes mellitus [...] ICD. Plans to have Cardiology followup in [facility]. Prevention strategies are up to date. Has dilated eye exams in [place], [place]. REVIEW OF SYSTEMS: Depression in mood. Recently returned from [employer] in [place]. 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 Eyes: No recent vision changes. No recent headaches. No chest pain or shortness of breath. No recent GI symptoms. Sleep patterns: States she has never been a good sleeper. Extremities: Followed closely by Dr. King in [place]. PHYSICAL EXAM: APPEARANCE: She appears in very [...] likely related to traveling, she drove to [place]. Also, patient has had back surgery. Requested [...] Non-Invasive Cardiology Lab [facility] [place] [address] Arrived 09/24/2024 4:00 PM EDT Office Visit Cardiology at [address] [phone] Nathaniel Keita MD [facility] [address] [place] [place] [address] 11/28/2024 10:30 AM EDT Office Visit Cardiology at [address] [phone] Ruben Hartman, [facility] [place] [address] documented as of this encounter Visit Diagnoses Diagnosis Type 1 diabetes mellitus with diabetic neuropathy Type I (juvenile type) diabetes mellitus with neurological manifestations, not stated as uncontrolled documented in this encounter Care Teams Cheese Cooker Relationship Specialty Start Date End Date Alexander Adams MD [address] [place] [address] PCP - General 04/06/12 07/26/23 documented as of this encounter
--- OUTSIDE RECORDS SUMMARY | 2024-05-03 21:57 | XMS_ITS | Encounter Summary ---
Author Organization [facility] [place] [address] Care Team Providers Care Lease Administrator Name Role Phone Alexander Adams MD Primary Care Provider [phone] Encounter Details Date Type Department Care Team (Latest Contact Info) Description 09/23/2015 9:28 AM EDT - 09/23/2015 11:59 PM EDT Hospital Encounter [place] [phone] Norm Garcia MD [facility] [place] [address] Discharge Disposition: Home Social History Tobacco Use [...] 60 tablet 3 02/17/2015 09/29/2017 Diabetic Supplies, Miscellan. [facility]ax [facility] to [facility] for pump supplies 100 each 12 08/27/2014 11/12/2015 Diabetic Supplies, True Fitcellan. [facility] Fax form to [facility] for testing supplies 100 each 12 08/08/2014 03/31/2017 lansoprazole (PREVACID) 30 mg capsule Take 30 mg by mouth daily. 07/27/2023 Blood Sugar Diagnostic (ONE TOUCH ULTRA TEST) test strip Test BG 5-6 times daily. Diagnosis code 250.63 600 each 3 03/12/2013 03/31/2017 Blood-Glucose Meter (ONE TOUCH ULTRA 2) monitoring kit 1 each by [facility].(Non-Drug; Combo Route) route as needed for Other. Test BG 5-6 times daily. Diagnosis code 250.63 1 each 0 03/12/2013 03/31/2017 Lancets (ONE TOUCH ULTRASOFT LANCETS) [facility] 1 each by [facility].(Non-Drug; Combo Route) route 6 times daily. Diag code 250.63 600 each 3 03/12/2013 03/31/2017 cholecalciferol, Vitamin D3, (CHOLECALCIFEROL, VITAMIN D3,) 2,000 unit Capsule Take 2,000 Units by mouth daily. 12/13/2018 Insulin [place], Disposable, (BD INSULIN PEN NEEDLE UF SHORT) 31 X 5/16 Ndle by [facility].(Non-Drug; Combo Route) route. 03/31/2017 SUBCUTANEOUS INSULIN PUMP (INSULIN PUMP [id number] [facility]) by [facility].(Non-Drug; Combo Route) route. 03/31/2017 acetaminophen (TYLENOL) 325 [...] AM EDT Hospital Encounter Non-Invasive Cardiology Lab [facility] [place] [address] Arrived 09/24/2024 4:00 PM EDT Office Visit Cardiology at [address] [phone] Nathaniel Keita MD [facility] [place] [address] 11/28/2024 10:30 AM EDT Office Visit Cardiology at [address] [phone] Ruben Hartman PA [facility] [place] [address] documented as of this encounter Visit Diagnoses Not on filedocumented in this encounter Care Teams Lease Administrator Relationship Specialty Start Date End Date Alexander Adams MD [address] [place] [address] PCP - General 04/06/12 07/26/23 documented as of this encounter
--- OUTSIDE RECORDS SUMMARY | 2024-05-03 21:57 | XMS_ITS | Encounter Summary ---
Author Organization [place] [address] Care Team Providers Care Blue Line Hanger Name Role Phone Alexander Adams MD Primary Care Provider [phone] Reason for Visit * Reason Comments Establish Care medtronic Coronary Artery Disease * Consultation (Routine) - Closed Specialty Diagnoses / Procedures Referred By Contac t Referred To Contact Cardiology Diagnoses CORONARY ARTERY DISEASE Alexander Adams MD [address] [place] [address] Rudy Moralez Jr., MD [address] [place] [address] Referral ID Status Reason Start Date Expiration Date V isits Requested Visits Authorized [id number] Closed Consult, [facility] 02/10/2017 02/10/2018 1 1 Encounter Details Date Type Department Care Team (Latest Contact Info) Description 03/31/2017 11:20 AM EST Office Visit Cardiology at [address] [phone] Rudy Moralez Jr., MD ASCVD (arteriosclerotic cardiovascular [...] HPI [place] follow up [place] after previously following at [facility] then with [facility] cardiology. She has had no chest pain [...] Ventricular fibrillation- with Medtronic ICD implanted 200906/21/2009 [facility]--- VF presenting, ROSC post shock by EMS, intubated; Dual chamber ICD - 07/02/2009 Medtronic John II VR Model# [id number], Serial# [id number] ??? CAD, out of hosp arrest and [...] AM EDT Hospital Encounter Non-Invasive Cardiology Lab [facility] [place] [address] Arrived 09/24/2024 4:00 PM EDT Office Visit Cardiology at [address] [place] [phone] Nathaniel Keita MD [facility] [place] [address] 11/28/2024 10:30 AM EDT Office Visit Cardiology at [address] [place] [address] Ruben Hartman, [facility] [place] [address] documented as of this encounter Visit Diagnoses Diagnosis ASCVD (arteriosclerotic cardiovascular disease) Unspecified cardiovascular disease [place] (ventricular tachycardia) Paroxysmal ventricular tachycardia Essential hypertension Unspecified essential hypertension documented in this encounter Care Teams Blue Line Hanger Relationship Specialty Start Date End Date Alexander Adams MD [address] [place] [address] PCP - General 04/06/12 07/26/23 documented as of this encounter
--- OUTSIDE RECORDS SUMMARY | 2024-05-03 21:57 | XMS_ITS | Encounter Summary ---
[place] [address] Care Team Providers Care Settlement Processor Name Role Phone Alexander Adams MD Primary Care Provider [phone] Encounter Details Date Type Department Care Team (Latest Contact Info) Description 03/04/2015 5:57 AM EST - 03/04/2015 11:59 PM EST Hospital Encounter [place] [phone] Edita Myers MD Discharge Disposition: Home Social [...] 40 mL 3 12/11/2014 04/30/2015 Diabetic Supplies, Miscellan. [facility] for pump supplies 100 each 12 08/27/2014 11/12/2015 Diabetic Supplies, Loglycellan. [facility] Fax form to [facility] for testing supplies 100 each 12 [...] ULTRA 2) monitoring kit 1 each by [facility].(Non-Drug; Combo Route) route as needed for Other. Test BG 5-6 times daily. Diagnosis code 250.63 1 each 0 03/12/2013 03/31/2017 Lancets (ONE TOUCH ULTRASOFT LANCETS) [facility] 1 each by [facility].(Non-Drug; Combo Route) route 6 times daily. Diag code 250.63 600 each 3 03/12/2013 03/31/2017 cholecalciferol, Vitamin D3, (CHOLECALCIFEROL, VITAMIN D3,) 2,000 unit Capsule Take 2,000 Units by mouth daily. 12/13/2018 Insulin [place], Disposable, (BD INSULIN PEN NEEDLE UF SHORT) 31 X 5/16 Ndle by [facility].(Non-Drug; Combo Route) route. 03/31/2017 SUBCUTANEOUS INSULIN PUMP (INSULIN PUMP [id number] [facility]) by [facility].(Non-Drug; Combo [...] AM EDT Hospital Encounter [place] [address] Arrived 09/24/2024 4:00 PM EDT Office Visit Cardiology at [address] [phone] [facility] [place] [address] 11/28/2024 10:30 AM EDT Office Visit Cardiology at [address] [phone] Ruben Hartman, PA [facility] [place] [address] documented as of this encounter Visit Diagnoses Not on filedocumented in this encounter Care Teams Settlement Processor Relationship Specialty Start Date End Date Alexander Adams MD [address] [place] [address] PCP - General 04/06/12 07/26/23 documented as of this encounter
--- OUTSIDE RECORDS SUMMARY | 2024-05-03 21:57 | XMS_ITS | Encounter Summary ---
Author Organization [facility] Address [facility] [place] [address] Care Team Providers Care Bag Filler Name Role Phone Alexander Adams MD Primary Care Provider [phone] Reason for Visit * Reason Comments Establish Care Medtronic ICD * Consultation (Routine) - Closed Specialty Diagnoses / Procedures Referred By Contact Referred To Contact Electrophysiology / Cardiology Diagnoses Ventricular fibrillation Storms, Nathaniel Connor MD [facility] [place] [address] [facility] Cardiology [address] [place] [phone] Referral ID Status Reason Start Date Expiration Date V isits Requested Visits Authorized [id number] Closed Consult, Test & Treat 2018 2019 1 1 Encounter Details Date Type Department Care Team (Late st Contact Info) Description 12/13/2018 2:20 PM EDT Office Visit Cardiology at [address] [address] Parvez Meyers MD [facility] [place] [address] ICD (implantable cardioverter-defibril lator) in [...] schedulers in the next 2 weeks, call [phone] and speak to'Ruma', ' Laura' For any questions, call my office: [phone] To access your health care information, go to the web at: [email or web address] (you will need to register) For educational materials: [email or web address] Parvez VILLAFANA.[facility], Clinical Cardiac Electrophysiology, [facility], [facility] A Healthy Heart: After Your Visit [...] least 2 servings of fish a week. [place], mackerel, valdez, sardines, and chunk light tuna [...] irregular heartbeat. After you call 911, the panama hat hydraulic press operator may tell you to chew 1 [...] more? Visit our health information library at [email or web address]. You can alsoview health information on [employer], your personal patient account. Log in or sign up today. Enter F075 in the search box to learn more about A Healthy Heart: After Your Visit. ?? [id number] [employer]. documented in this encounter Progress Notes * Parvez Meyers MD - 12/13/2018 2:20 PM EDT Images from the original note were not included. 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 No heavy lifting; can climb one flight. No pain or discomfort at the site. Problem List Patient Active Problem List Diagnosis ??? Ventricular fibrillation- with Medtronic ICD implanted 200906/21/2009 [facility]--- VF presenting, ROSC post shock by EMS, intubated; Dual chamber ICD - 07/02/2009 Medtronic John II VR Model# [id number], Serial# [id number] ??? CAD, out of hosp arrest and [...] education level: None Occupational History ??? 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 I personally performed a device interrogation TrippyO II VR Serial Number [id number] Battery 2.63 v, KP 2.63v RV lead [...] pulse generator replacement C) Follow up in [place] device [facility] after implant PARVEZ MEYERS MD [...] AM EDT Hospital Encounter Non-Invasive Cardiology Lab [facility] [place] [address] Arrived 09/24/2024 4:00 PM EDT Office Visit Cardiology at [address] [phone] Nathaniel Keita MD [facility] [place] [address] 11/28/2024 10:30 AM EDT Office Visit Cardiology at [address] [phone] Ruben Hartman PA [facility] [place] [address] documented as of this encounter Procedures Procedure [...] ?? Final Parameters: (Old) Ventricular electrode: ?? MedTwist Sprint Quattro MRI Model# 6947-58cm, Serial #[id number] Implanted 07/01/2009 ? Bipolar, steroid-tipped, active-fixation, DF-1 [...] generator: ? Medtronic VISIA AF MRI ??Model# [id number], Serial# [id number] Implanted 01/12/2019 ? VVIR ICD ? Location: ?? Subcutaneous Defibrillation testing was not performed. Explanted device Medtronic [id number] Serial Number [id number] Implanted 07/01/2009, explanted 01/12/2019 The wound was [...] procedure well. PARVEZ MEYERS MD was the screen machine operator, present for the entire sedation period and performed the procedure without a fellow or resident. Parvez Meyers MD EP PROCEDURE ORDERAB LES documented in this encounter Visit Diagnoses Diagnosis ICD (implantable cardioverter-defibrillator) in place ICD (implantable cardioverter-defibrillator) in place documented in this encounter Care Teams Bag Filler Relationship Specialty Start Date End Date Alexander Adams MD [address] [place] [address] PCP - General 04/06/12 07/26/23 documented as of this encounter
--- OUTSIDE RECORDS SUMMARY | 2024-05-03 21:57 | XMS_ITS | Encounter Summary ---
Author Organization [facility] [place] [address] Care Team Providers Care Agricultural Commodities Grader Name Role Phone Alexander Adams MD Primary Care Provider [phone] Reason for Visit * Reason Comments Follow-up 6 month f/u Medtroni c Pacer. No complaints Encounter Details Date Type Department Care Team (Late st Contact Info) Description 05/25/2018 8:20 AM EST Office Visit Cardiology at [address] [address] Rudy Moralez Jr., MD Coronary artery disease, angina presence unspecified, unspecified vessel or lesion type, unspecified whether [place] or transplanted heart; Ventricular fibrillation- with Medtronic [...] Ventricular fibrillation- with Medtronic ICD implanted 200906/21/2009 [facility]--- VF presenting, ROSC post shock by EMS, intubated; Dual chamber ICD - 07/02/2009 Medtronic John II VR Model# [id number], Serial# [id number] ??? CAD, out of hosp arrest and [...] % paced <0.1 Battery Voltage: 2.64 V (FINE UNHAIRER 2.63) charge time 11.3 Rate Responsiveness adequate [...] AM EDT Hospital Encounter Non-[place] [address] Arrived 09/24/2024 4:00 PM EDT Office Visit Cardiology at [address] [phone] Nathaniel Keita MD [facility] [address] 11/28/2024 10:30 AM EDT Office Visit Cardiology at [address] [phone] Ruben Hartman, LAURA [facility] [address] documented as of this encounter Visit Diagnoses Diagnosis Coronary artery disease, angina presence unspecified, unspecified vessel or lesion type, unspecified whether [place] or transplanted heart Ventricular fibrillation- with Medtronic ICD implanted 2009 Ventricular fibrillation Essential hypertension Unspecified essential hypertension ICD (implantable cardioverter-defibrillator) battery depletion documented in this encounter Care Teams Agricultural Commodities Grader Relationship Specialty Start Date End Date Alexander Adams MD [address] [place] [address] PCP - General 04/06/12 07/26/23 documented as of this encounter
--- OUTSIDE RECORDS SUMMARY | 2024-05-03 21:57 | XMS_ITS | Encounter Summary ---
[place] [address] Care Team Providers Care Road Boss Name Role Phone Alexander Adams MD Primary Care Provider [phone] Encounter Details Date Type Department Care Team (Late st Contact Info) Description 03/26/2015 External Results Cardiology at [address] [phone] Alexander Adams MD [address] [place] [address] Social History Tobacco Use Types [...] AM EDT Hospital Encounter Non-Invasive [place] [address] Arrived 09/24/2024 4:00 PM EDT Office Visit Cardiology at [address] [phone] Nathaniel Keita MD [facility] [place] [address] 11/28/2024 10:30 AM EDT Office Visit Cardiology at [address] [place] [address] Ruben Hartman PA [facility] [place] [address] documented as of this encounter Procedures Procedure Name Priority Date/Time Associated Diagnosis Comments EP DEVICE SCAN Routine 03/04/2015 documented in this encounter Results * Scan Doc: EP Device (03/04/2015) Anatomical Region Laterality Modality Other Alexander Adams MD MEDIA MGR SCAN EXT O RDR/RSLT documented in this encounter Visit Diagnoses Not on filedocumented in this encounter Care Teams Road Boss Relationship Specialty Start Date End Date Alexander Adams MD [address] [place] [address] PCP - General 04/06/12 07/26/23 documented as of this encounter
--- OUTSIDE RECORDS SUMMARY | 2024-05-03 21:57 | XMS_ITS | Encounter Summary ---
[place] [address] Care Team Providers Care Electronic Masking System Operator Name Role Phone Alexander Adams MD Primary Care Provider [phone] Encounter Details Date Type Department Care Team (Late st Contact Info) Description 04/08/2016 Telephone Cardiology at [address] [phone] Katelyn Cespedes Social History Tobacco Use Types [...] has transferred her care to a local Lamination Inspector, Dr. Smith in [place], [place].They will be following her ICD as well. documented in this encounter Plan of Treatment Upcoming Encounters Date Type Department Care Team (Late st Contact Info) Description 07/25/2024 10:00 AM EDT Hospital Encounter Non-[place] [address] Arrived 09/24/2024 4:00 PM EDT Office Visit Cardiology at [address] [phone] Nathaniel Keita MD [facility] [place] [address] 11/28/2024 10:30 AM EDT Office Visit Cardiology at [address] [phone] Ruben Hartman PA [facility] [place] [address] documented as of this encounter Visit Diagnoses Not on filedocumented in this encounter Care Teams Electronic Masking System Operator Relationship Specialty Start Date End Date Alexander Adams MD [address] [place] [address] PCP - General 04/06/12 07/26/23 documented as of this encounter
--- OUTSIDE RECORDS SUMMARY | 2024-05-03 21:57 | XMS_ITS | Encounter Summary ---
[place] [address] Care Team Providers Care Wood Milling Machine Operator Name Role Phone Alexander Adams MD Primary Care Provider [phone] Reason for Visit * Reason Comments Diabetes Encounter Details Date Type Department Care Team (Late st Contact Info) Description 02/17/2015 10:30 AM EST Office [place] [phone] Jaylin Salcido APRN Type 1 diabetes mellitus [...] has an extensive cardiac history followed by breast trimmer, history of cardiac arrest 2009. PREVENTION STRATEGIES: [...] office visit with 33 minutes spent counseling [id number] with patient in the management of glucose [...] AM EDT Hospital Encounter Non-[place] [address] Arrived 09/24/2024 4:00 PM EDT Office Visit Cardiology at [address] [phone] Nathaniel Keita MD [facility] [place] [place] [address] 11/28/2024 10:30 AM EDT Office Visit Cardiology at [address] [phone] Ruben Hartman PA [facility] [place] [address] documented as of this encounter Results * TSH (09/08/2015 3:01 PM EDT) Thyroid Stimulating Hormone 0.86 0.27 - 4.20 mcIU/mL [facility] Blood specimen (specimen) 09/08/2015 3:01 PM EDT 09/08/2015 3:13 PM EDT Narrative Resulting Agency Comment Spec In Lab Chris Chatman MD CHEMISTRY ORDERABLES [facility] [place] [address] * (ABNORMAL) Hemoglobin A1c (09/08/2015 3:01 PM [...] Mellitus, Diabetes Care 2013; 36: Suppl. 1, S67-28 Estimated Average Glucose See note mg/dL [facility] [...] resources are available on the ADA website: [email or web address] Alfred JEFFRIES, Risa J, Sergio R, et al. ??Translating the A1C assay into estimated average glucose values. ??Diabetes Care 2008:31(8):3382-0377. 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
--- OUTSIDE RECORDS SUMMARY | 2024-05-03 21:57 | XMS_ITS | Encounter Summary ---
[place] [address] Care Team Providers Care Bulb Brander Name Role Phone Alexander dAams MD Primary Care Provider [phone] Encounter Details Date Type Department Care Team (Late st Contact Info) Description 04/14/2015 Notes [place] [address] Stella Hernandez LPN Social History Tobacco Use [...] AM EDT Hospital Encounter Non-Invasive [place] [address] Arrived 09/24/2024 4:00 PM EDT Office Visit Cardiology at [address] [phone] [facility] [place] [address] 11/28/2024 10:30 AM EDT Office Visit Cardiology at [address] [phone] [facility] [place] [address] documented as of this encounter Visit Diagnoses Not on filedocumented in this encounter Care Teams Bulb Brander Relationship Specialty Start Date End Date Alexander Adams MD [address] [place] [address] PCP - General 04/06/12 07/26/23 documented as of this encounter
--- OUTSIDE RECORDS SUMMARY | 2024-05-03 21:57 | XMS_ITS | Encounter Summary ---
Author Organization [facility] [place] [address] Care Team Providers Care Optical Fabrication Technician Name Role Phone Alexander Adams MD Primary Care Provider [phone] Reason for Visit * Reason Onset Date Comments Medication Refill 12/10/2014 Encounter Details Date Type Department Care Team (Late st Contact Info) Description 12/10/2014 Refill [place] [phone] Jaylin Salcido APRN Social History Tobacco Use [...] AM EDT Hospital Encounter Non-[place]vasive [place] [phone] Arrived 09/24/2024 4:00 PM EDT Office Visit Cardiology at [address] [phone] Nathaniel Keita MD [facility] [place] [address] 11/28/2024 10:30 AM EDT Office Visit Cardiology at [address] [place] [address] Ruben Hartman, PA [facility] [place] [address] documented as of this encounter Visit Diagnoses Not on filedocumented in this encounter Care Teams Optical Fabrication Technician Relationship Specialty Start Date End Date Alexander Adams MD [address] [place] [address] PCP - General 04/06/12 07/26/23 documented as of this encounter
--- OUTSIDE RECORDS SUMMARY | 2024-05-03 21:57 | XMS_ITS | Encounter Summary ---
[place] [address] Care Team Providers Care Or First Assist Registered Nurse Name Role Phone Alexander Adams MD Primary Care Provider [phone] Reason for Visit * Reason Onset Date Comments Medication Refill 08/15/2014 Encounter Details Date Type Department Care Team (Late st Contact Info) Description 08/15/2014 Ref[place] [phone] Elisha Nichols MD Social History Tobacco Use [...] 3:05 PM EDT Rx request received from [facility] diabetes. Called patient. No answer message left on home v/m for patient to r/c to nurse to verify this is where she is not getting her pump supplies documented in this encounter Plan of Treatment Upcoming Encounters Date Type Department Care Team (Late st Contact Info) Description 07/25/2024 10:00 AM EDT Hospital Encounter [place] [address] Arrived 09/24/2024 4:00 PM EDT Office Visit Cardiology at [address] [phone] Nathaniel Keita MD [facility] [place] [address] 11/28/2024 10:30 AM EDT Office Visit Cardiology at [address] [phone] Ruben Hartman PA [facility] [place] [address] documented as of this encounter Visit Diagnoses Not on filedocumented in this encounter Care Teams Or First Assist Registered Nurse Relationship Specialty Start Date End Date Alexander Adams MD [address] [place] [address] PCP - General 04/06/12 07/26/23 documented as of this encounter
--- OUTSIDE RECORDS SUMMARY | 2024-05-03 21:57 | XMS_ITS | Encounter Summary ---
Author Organization [facility] [place] [address] Care Team Providers Care Lamination Machine Operator Name Role Phone Alexander Adams MD Primary Care Provider [phone] Encounter Details Date Type Department Care Team (Late st Contact Info) Description 09/23/2015 Orders Only Cardiology at [address] [phone] Social History Tobacco Use Types Packs/Day Years [...] AM EDT Hospital Encounter Non-Invasive [place] [address] Arrived 09/24/2024 4:00 PM EDT Office Visit Cardiology at [address] [phone] Nathaniel Keita MD [facility] [place] [place] [address] 11/28/2024 10:30 AM EDT Office Visit Cardiology at [address] [phone] Ruben Hartman PA [facility] [place] [place] [address] documented as of this encounter Procedures Procedure Name Priority Date/Time Associated Diagnosis Comments CARDIAC DEVICE CHECK - REMOTE Routine 09/23/2015 6:28 AM EDT documented in this encounter Results * (ABNORMAL) Cardiac device check - Remote (09/23/2015 6:28 AM EDT) Date Time Interrogation Session [id number] IDCO Implantable Pulse Generator Other Sports Coach Or Instructor [employer] IDCO Implantable Pulse Generator Model MANUEL II VR [id number] IDCO Implantable Pulse Generator Serial Number [id number] IDCO Type Interrogation Session Remote IDCO Implantable Pulse Generator Type Defibrillator IDCO Implantable Pulse Generator Implant Date [id number] IDCO Marcel Setting Mode (NBG Code) VVI [...] ms IDCO Battery Date Time of Measurements [id number] IDCO Battery Status OK IDCO Battery CLOTH NEUTRALIZER Trigger 2.6251 IDCO Battery Voltage 3.01 V IDCO Capacitor Charge Type Reformation IDCO Capacitor Last Charge Date Time [id number] IDCO Capacitor Charge Time 9.148 s IDCO Capacitor Charge Energy 35 J IDCO Episode Identifier 191 IDCO Episode Date Time [id number] IDCO Episode Duration 2 s IDCO Episode Identifier 190 IDCO Episode Date Time [id number] IDCO Episode Duration 0 s IDCO Episode Identifier 189 IDCO Episode Date Time [id number] IDCO Episode Duration 0 s IDCO Episode Identifier 188 IDCO Episode Date Time [id number] IDCO Episode Duration 1 s IDCO Episode Identifier 187 IDCO Episode Date Time [id number] IDCO Episode Duration 2 s IDCO Episode Identifier 186 IDCO Episode Date Time [id number] IDCO Episode Duration 1 s IDCO Episode Identifier 185 IDCO Episode Date Time [id number] IDCO Episode Duration 1 s IDCO Episode Identifier 184 IDCO Episode Date Time [id number] IDCO Episode Duration 1 s IDCO Episode Identifier 183 IDCO Episode Date Time [id number] IDCO Episode Duration 2 s IDCO Episode Identifier 182 IDCO Episode Date Time [id number] IDCO Episode Duration 0 s IDCO Episode Identifier 181 IDCO Episode Date Time [id number] IDCO Episode Duration 2 s IDCO Episode Identifier 180 IDCO Episode Date Time [id number] IDCO Episode Duration 0 s IDCO Episode Identifier 179 IDCO Episode Date Time [id number] IDCO Episode Duration 0 s IDCO Episode Identifier 178 IDCO Episode Date Time [id number] IDCO Episode Duration 0 s IDCO Episode Identifier 177 IDCO Episode Date Time [id number] IDCO Episode Duration 2 s IDCO Marcel Statistic Date Time Start [id number] IDCO Marcel Statistic Date Time End IDCO Marcel Statistic RV Percent Paced 0.00 % IDCO Therapy Statistic Recent Shocks Delivered 0 IDCO Therapy Statistic Recent Shocks Aborted 0 IDCO Therapy Statistic Recent ATP Delivered 0 IDCO Therapy Statistic Recent Date Time Start [id number] IDCO Therapy Statistic Recent Date Time End IDCO Therapy Statistic Total Shocks Delivered 0 IDCO Therapy Statistic Total Shocks Aborted 0 IDCO Therapy Statistic Total ATP Delivered 0 IDCO Therapy Statistic Total Date Time Start [id number] IDCO Therapy Statistic Total Date Time End [...] IDCO Episode Statistic Recent Date Time Start [id number] IDCO Episode Statistic Recent Date Time End IDCO Episode Statistic Recent Date Time Start 21792685168202 IDCO Episode Statistic Recent Date Time End IDCO Episode Statistic Recent Date Time Start [id number] IDCO Episode Statistic Recent Date Time End IDCO Episode Statistic Recent Date Time Start [id number] IDCO Episode Statistic Recent Date Time End IDCO Episode Statistic Recent Date Time Start [id number] IDCO Episode Statistic Recent Date Time End IDCO Episode Statistic Recent Date Time Start [id number] IDCO Episode Statistic Recent Date Time End [...] IDCO Episode Statistic Total Date Time Start [id number] IDCO Episode Statistic Total Date Time End IDCO Episode Statistic Total Date Time Start [id number] IDCO Episode Statistic Total Date Time End IDCO Episode Statistic Total Date Time Start [id number] IDCO Episode Statistic Total Date Time End IDCO Episode Statistic Total Date Time Start [id number] IDCO Episode Statistic Total Date Time End IDCO Episode Statistic Total Date Time Start [id number] IDCO Episode Statistic Total Date Time End IDCO Episode Statistic Total Date Time Start [id number] IDCO Episode Statistic Total Date Time End IDCO Anatomical Region Laterality Modality Other 09/23/2015 6:28 AM EDT Physician Cardiology IMPLANTABLE CARD IAC DEVICE documented in this encounter Visit Diagnoses Not on filedocumented in this encounter Care Teams Lamination Machine Operator Relationship Specialty Start Date End Date Alexander Adams MD [address] [place] [address] PCP - General 04/06/12 07/26/23 documented as of this encounter
--- OUTSIDE RECORDS SUMMARY | 2024-05-03 21:57 | XMS_ITS | Encounter Summary ---
[place] [address] Care Team Providers Care Logistics Planning Engineer Name Role Phone Alexander Adams MD Primary Care Provider [phone] Encounter Details Date Type Department Care Team (Latest Contact Info) Description 09/08/2015 2:50 PM EDT [place] [address] Type 1 diabetes mellitus with diabetic retinopathy [...] AM EDT Hospital Encounter [place] [address] Arrived 09/24/2024 4:00 PM EDT Office Visit Cardiology at [address] [place] [address] Nathaniel Keita MD [facility] [place] [address] 11/28/2024 10:30 AM EDT Office Visit Cardiology at [address] [place] [address] Ruben Hartman PA [facility] [place] [address] documented as of this encounter Procedures Procedure [...] Stimulating Hormone 0.86 0.27 - 4.20 mcIU/mL [facility] Blood specimen (specimen) 09/08/2015 3:01 PM EDT 09/08/2015 3:13 PM EDT Narrative Resulting Agency Comment Spec In Lab Chris Chatman MD CHEMISTRY ORDERABLES [facility] [place] [address] * (ABNORMAL) Hemoglobin A1c (09/08/2015 3:01 PM [...] S67-74 Estimated Average Glucose See note mg/dL [facility] [...] resources are available on the ADA website: http://[email or web address]/[email or web address] Alfred JEFFRIES, Risa J, Sergio R, et al. ??Translating the A1C assay into estimated average glucose values. ??Diabetes Care 2008:31(8):6445-3075. 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
--- OUTSIDE RECORDS SUMMARY | 2024-05-03 21:57 | XMS_ITS | Encounter Summary ---
[place] [address] Care Team Providers Care Sales Assistant Entertainment And Media Name Role Phone Alexander Adams MD Primary Care Provider [phone] Reason for Visit * Reason Onset Date Comments Questions 09/16/2014 wants latest Rx, has notes we faxed earlier Encounter Details Date Type Department Care Team (Late st Contact Info) Description 09/16/2014 [place] [phone] Melissa Cleary MD Questions (wants latest Rx, [...] AM EDT Hospital Encounter Non-[place] [address] Arrived 09/24/2024 4:00 PM EDT Office Visit Cardiology at [address] [phone] Nathaniel Keita MD [facility] [place] [address] 11/28/2024 10:30 AM EDT Office Visit Cardiology at [address] [phone] Ruben Hartman PA [facility] [place] [address] documented as of this encounter Visit Diagnoses Not on filedocumented in this encounter Care Teams Sales Assistant Entertainment And Media Relationship Specialty Start Date End Date Alexander Adams MD [address] [place] [address] PCP - General 04/06/12 07/26/23 documented as of this encounter
--- OUTSIDE RECORDS SUMMARY | 2024-05-03 21:57 | XMS_ITS | Encounter Summary ---
Author Organization [facility] Address [facility] [place] [address] Care Team Providers Care City Planning Teacher Name Role Phone Alexander Adams MD Primary Care Provider [phone] Reason for Referral * Consultation (Routine) - Closed Specialty Diagnoses / Procedures Referred By Contact Referred To Contact Electrophysiology / Cardiology Diagnoses Ventricular fibrillation Nathaniel Keita MD [facility] [place] [address] [address] Referral ID Status Reason Start Date Expiration Date V isits Requested Visits Authorized [id number] Closed Consult, Test & Treat 2018 2019 1 1 Reason for Visit * Reason Comments Follow-up 2 months, Medtronic pacemaker Encounter Details Date Type Department Care Team (Late st Contact Info) Description 2018 11:20 AM EDT Office Visit Cardiology at [address] [address] Nathaniel Keita MD [facility] [place] [address] Ventricular fibrillation- with Medtronic ICD implanted 2009 [...] Ventricular fibrillation- with Medtronic ICD implanted 200906/21/2009 [facility]--- VF presenting, ROSC post shock by EMS, intubated; Dual chamber ICD - 07/02/2009 Medtronic John II VR Model# [id number], Serial# [id number] ??? CAD, out of hosp arrest and [...] AM EDT Hospital Encounter Non-[place] [address] Arrived 09/24/2024 4:00 PM EDT Office Visit Cardiology at [address] [place] [address] Nathaniel Keita MD [facility] [place] [address] 11/28/2024 10:30 AM EDT Office Visit Cardiology at [address] [place] [phone] Ruben Hartman, LAURA [facility] [place] [address] Scheduled Referrals Name Type Priority Associated Diagnoses Order Schedule Referral to Cardiac Electrophysiology Outpatient Referral Routine Ventricular fibrillation- with Medtronic ICD implanted 2009 Ordered: 2018 documented as of this encounter Visit Diagnoses Diagnosis Ventricular fibrillation- with Medtronic ICD implanted 2009 Ventricular fibrillation documented in this encounter Care Teams City Planning Teacher Relationship Specialty Start Date End Date Alexander Adams MD [address] [place] [address] PCP - General 04/06/12 07/26/23 documented as of this encounter
--- OUTSIDE RECORDS SUMMARY | 2024-05-03 21:57 | XMS_ITS | Encounter Summary ---
[place] [address] Care Team Providers Care Cooperage Shop Supervisor Name Role Phone Alexander Adams MD Primary Care Provider [phone] Reason for Visit * Reason Onset Date Comments Medication Refill 11/12/2015 Encounter Details Date Type Department Care Team (Late st Contact Info) Description 11/12/2015 [place] [phone] Donna Driscoll LNA Social History Tobacco Use [...] AM EDT Hospital Encounter Non-[place] [phone] Arrived 09/24/2024 4:00 PM EDT Office Visit Cardiology at [address] [phone] Nathaniel Keita MD [facility] [place] [address] 11/28/2024 10:30 AM EDT Office Visit Cardiology at [address] [place] [address] uRben Hartman, PA [facility] [place] [address] documented as of this encounter Visit Diagnoses Not on filedocumented in this encounter Care Teams Cooperage Shop Supervisor Relationship Specialty Start Date End Date Alexander Adams MD [address] [place] [address] PCP - General 04/06/12 07/26/23 documented as of this encounter
--- OUTSIDE RECORDS SUMMARY | 2024-05-03 21:57 | XMS_ITS | Encounter Summary ---
[place] [address] Care Team Providers Care Filling And Stapling Machine Operator Name Role Phone Alexander Adams MD Primary Care Provider [phone] Reason for Visit * Reason Onset Date Comments Appointment 08/26/2015 Encounter Details Date Type Department Care Team (Late st Contact Info) Description 08/26/2015 [place] [phone] Melissa Cleary MD Appointment Social History Tobacco [...] AM EDT Hospital Encounter Non-Invasive Cardiology [place] [address] Arrived 09/24/2024 4:00 PM EDT Office Visit Cardiology at [address] [address] Nathaniel Keita MD [facility] [place] [address] 11/28/2024 10:30 AM EDT Office Visit Cardiology at [address] [phone] Ruben Hartman PA [facility] [place] [address] documented as of this encounter Visit Diagnoses Not on filedocumented in this encounter Care Teams Filling And Stapling Machine Operator Relationship Specialty Start Date End Date Alexander Adams MD [address] [place] [address] PCP - General 04/06/12 07/26/23 documented as of this encounter
--- OUTSIDE RECORDS SUMMARY | 2024-05-03 21:57 | XMS_ITS | Encounter Summary ---
[place] [address] Care Team Providers Care Boiler Water Tester Name Role Phone Alexander Adams MD Primary Care Provider [phone] Encounter Details Date Type Department Care Team (Late st Contact Info) Description 05/06/2015 Notes [place] [phone] Richa Falcon, RN Social History Tobacco Use [...] AM EDT Hospital Encounter Non-Invasive [place] [phone] Arrived 09/24/2024 4:00 PM EDT Office Visit Cardiology at [address] [phone] Nathaniel Keita MD [facility] [place] [address] 11/28/2024 10:30 AM EDT Office Visit Cardiology at [address] [phone] Ruben Hartman PA [facility] [place] [address] documented as of this encounter Visit Diagnoses Not on filedocumented in this encounter Care Teams Boiler Water Tester Relationship Specialty Start Date End Date Alexander Adams MD [address] [place] [address] PCP - General 04/06/12 07/26/23 documented as of this encounter
--- OUTSIDE RECORDS SUMMARY | 2024-05-03 21:57 | XMS_ITS | Encounter Summary ---
Author Organization [facility] [place] [address] Care Team Providers Care Last Waxer Name Role Phone Alexander Adams MD Primary Care Provider [phone] Reason for Visit * Reason Comments Follow-up 6 month F/U CAD, [place], HTN, Medtronic ICD Encounter Details Date Type Department Care Team (Late st Contact Info) Description 09/29/2017 11:20 AM EDT Office Visit Cardiology at [address] [address] Rudy Moralez Jr., MD Ventricular fibrillation- with Medtronic ICD implanted 2009; Essential hypertension; Coronary artery disease, angina presence unspecified, unspecified vessel or lesion type, unspecified whether [place] or transplanted heart Social History Tobacco Use [...] Ventricular fibrillation- with Medtronic ICD implanted 200906/21/2009 [facility]--- VF presenting, ROSC post shock by EMS, intubated; Dual chamber ICD - 07/02/2009 Medtronic John II VR Model# [id number], Serial# [id number] ??? CAD, out of hosp arrest and [...] AM EDT Hospital Encounter Non-[place]vasive [place] [address] Arrived 09/24/2024 4:00 PM EDT Office Visit Cardiology at [address] [phone] Nathaniel Keita MD [facility] [place] [address] 11/28/2024 10:30 AM EDT Office Visit Cardiology at [address] [phone] Ruben Hartman, LAURA [facility] [place] [address] documented as of this encounter Visit Diagnoses Diagnosis Ventricular fibrillation- with Medtronic ICD implanted 2009 Ventricular fibrillation Essential hypertension Unspecified essential hypertension Coronary artery disease, angina presence unspecified, unspecified vessel or lesion type, unspecified whether [place] or transplanted heart documented in this encounter Care Teams Last Waxer Relationship Specialty Start Date End Date Alexander Adams MD [address] [place] [address] PCP - General 04/06/12 07/26/23 documented as of this encounter
--- OUTSIDE RECORDS SUMMARY | 2024-05-03 21:57 | XMS_ITS | Encounter Summary ---
Author Organization [facility] [place] [address] Care Team Providers Care Architectural Job Captain Name Role Phone Alexander Adams MD Primary Care Provider [phone] Reason for Visit * Reason Comments Cardiomyopathy Encounter Details Date Type Department Care Team (Late st Contact Info) Description 11/28/2014 2:40 PM EDT Office Visit Cardiology at [address] [phone] Thaddeus Cespedes RN Ventricular fibrillation- with Medtronic [...] Progress Notes * Thaddeus Cespedes, RN - 11/28/2014 3:00 PM EDT DSE Monitoring Ms. Cole is a 69 years old female who presents to the clinic today for ICD interrogation. The ICDwas implanted 07/01/2009 due to Secondary prevention s/p ventricular fibrillation cardiac arrest. She voices no device-related complaints today Pt enrolled in SLS study. PCP: ALEXANDER ADAMS MD (General) Scaffold Erector: Milind Beasley MD Device and lead information Final Parameters: Ventricular lead: Medtronic Sprint Quattro Model# 6947-58 cm Serial #[id number] ??? Bipolar, steroid-tipped, active-fixation IS-1, DF-1 lead ??? Access: Left axillary vein ??? Location: Right ventricular apex ??? R wave, ICD: 8.0 mV ??? Pacing threshold, ICD: 1.0 V at 0.5 ms ??? Impedance, ICD: 532 ohms ??? HVB Impedance 33 ohms ??? SVC Impedance 39 ohms ??? Pace the diaphragm at 10 V: No Pulse generator: Medtronic John II VR Model# [id number] Serial# [id number] ??? Single-chamber ICD ??? Location: Subcutaneous Parameters: VF detection rate: >200 bpm VF therapy: ATP during charging, 30J, 35J x 5 FVT detection rate: via VF 250 bpm FVT therapy: Burst(1), 30J, 35J x 4 VT detection rate:182 bpm VT therapy: Burst(3), 20J, 35J x 4 Enhancement: Wavelet, VT Monitor Bradycardia pacing: VVI 40 Follow-up Battery status: 3.05 V SPACE CONTROL AGENT: 2.63 V Charge time: 8.9 sec 07/03/2014 [...] AM EDT Hospital Encounter Non-[place] [address] Arrived 09/24/2024 4:00 PM EDT Office Visit Cardiology at [address] [phone] Nathaniel Keita MD [facility] [place] [address] 11/28/2024 10:30 AM EDT Office Visit Cardiology at [address] [phone] Ruben Hartman PA [facility] [place] [address] documented as of this encounter Visit Diagnoses Diagnosis Ventricular fibrillation- with Medtronic ICD implanted 2009 Ventricular fibrillation documented in this encounter Care Teams Architectural Job Captain Relationship Specialty Start Date End Date Alexander Adams MD [address] [place] [address] PCP - General 04/06/12 07/26/23 documented as of this encounter
--- OUTSIDE RECORDS SUMMARY | 2024-05-03 21:57 | XMS_ITS | Encounter Summary ---
Author Organization [facility] [place] [address] Care Team Providers Care Cattle Producers Name Role Phone Alexander Adams MD Primary Care Provider [phone] Encounter Details Date Type Department Care Team (Latest Contact Info) Description 08/15/2014 12:51 PM EDT - 08/15/2014 11:59 PM EDT Hospital [place] [phone] Chris Chatman MD [facility] [place] [address] Type I (juvenile type) diabetes mellitus with [...] PO Once daily 03/24/2010 Diabetic Supplies, [place] [place] [facility] for pump supplies 100 each 12 08/27/2014 11/12/2015 Diabetic Supplies, [place]. [facility] Fax form to [facility] for testing supplies 100 each 12 08/08/2014 03/31/2017 carvedilol (COREG) 3.125 mg Tablet Take 3.125 mg by mouth every other day. (Alternating with DIOVAN) 06/23/2015 traMADol-acetaminoph en (ULTRACET) 37.5-325 mg Tablet Take 1 tablet by mouth 2 times daily as needed for Pain. 60 tablet 5 07/29/2014 02/17/2015 Diabetic Supplies, [place]. [facility] Fax form to [facility] for INSULIN PUMP SUPPLIES 100 each 12 [...] monitoring kit 1 each by [facility].(Non-Drug; Combo Route) route as needed for Other. Test BG 5-6 times daily. Diagnosis code 250.63 1 each 0 03/12/2013 03/31/2017 Lancets (ONE TOUCH ULTRASOFT LANCETS) Misc 1 each by [facility].(Non-Drug; Combo Route) route 6 times daily. Diag code 250.63 600 each 3 03/12/2013 03/31/2017 cholecalciferol, Vitamin D3, (CHOLECALCIFEROL, VITAMIN D3,) 2,000 unit Capsule Take 2,000 Units by mouth daily. 12/13/2018 atorvastatin (LIPITOR) 20 mg tablet Take 40 mg by mouth daily. 11/28/2014 Insulin [place], Disposable, (BD INSULIN PEN NEEDLE UF SHORT) 31 X 08/17 Ndle by [facility].(Non-Drug; Combo Route) route. 03/31/2017 SUBCUTANEOUS INSULIN PUMP (INSULIN PUMP [id number] [facility]) by [facility].(Non-Drug; Combo Route) route. 03/31/2017 acetaminophen (TYLENOL) 325 [...] AM EDT Hospital Encounter [place] [address] Arrived 09/24/2024 4:00 PM EDT Office Visit Cardiology at [address] [phone] Nathaniel Keita MD [facility] [place] [address] 11/28/2024 10:30 AM EDT Office Visit Cardiology at [address] [address] Ruben Hartman PA [facility] [place] [address] documented as of this encounter Procedures Procedure [...] Stimulating Hormone 0.66 0.27 - 4.20 mcIU/mL [facility] Blood specimen (specimen) 08/15/2014 12:55 PM EDT 08/15/2014 1:04 PM EDT Narrative Resulting Agency Comment Spec In Lab Chris Chatman MD CHEMISTRY ORDERABLES [facility] * (ABNORMAL) Hemoglobin A1c (08/15/2014 12:55 PM EDT) Hemoglobin A1c 7.6(H) 4.3 - 5.6 % [facility] Comment: Reference Range: 4.3 - 5.6% [...] Mellitus, Diabetes Care 2013; 36: Suppl. 1, V97-58 Estimated Average Glucose 171 mg/dL [facility] Comment: eAG equivalents for HbA1c percentages: HbA1c(%) ?eAG(mg/dL) 6.0 ?126 6.5 ?140 7.0 ?154 7.5 ?169 8.0 ?183 8.5 ?197 9.0 ?212 9.5 ?226 10.0 ? 240 Limitations: The eAG calculation has not been validated on women, individuals below 18 years old and above 70 years old, and individuals with hemoglobinopathies. Additional resources are available on the ADA website: http://GROUNDBOOTH.com/DHMCadacalc Alfred JEFFRIES, Risa J, Sergio R, et al. ??Translating the A1C assay into estimated average glucose values. ??Diabetes Care 2008:31(8):5345-1487. Blood specimen (specimen) 08/15/2014 12:55 PM EDT 08/15/2014 1:04 PM EDT Narrative Resulting Agency Comment Spec In Lab Chris Chatman MD CHEMISTRY ORDERABLES Performing Organization Address City/State/[facility] Co tx Phone Number [facility] documented in this encounter Visit Diagnoses Diagnosis Type I (juvenile type) diabetes mellitus with neurological manifestations, not stated as uncontrolled(250.61) Type I (juvenile type) diabetes mellitus with neurological manifestations, not stated as uncontrolled documented in this encounter Care Teams Cattle Producers Relationship Specialty Start Date End Date Alexander Adams MD [address] [place] [address] PCP - General 04/06/12 07/26/23 documented as of this encounter
--- OUTSIDE RECORDS SUMMARY | 2024-05-03 21:57 | XMS_ITS | Encounter Summary ---
Author Organization [facility] [place] [address] Care Team Providers Care Recreation Professor Name Role Phone Alexander Adams MD Primary Care Provider [phone] Reason for Visit * Reason Comments Follow-up Encounter Details Date Type Department Care Team (Late st Contact Info) Description 06/23/2015 3:30 PM EDT Office Visit Cardiology at [address] [phone] Milind Beasley MD [facility] [place] [address] Coronary artery disease, angina presence unspecified, unspecified vessel or lesion type, unspecified whether [place] or transplanted heart; Ventricular fibrillation- with Medtronic [...] Beasley MD - 06/08/2015 10:23 AM EST [facility] Cardiovascular Medicine Identification [...] . from second in 2014. Lives in [place], [place]. 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 Family History Notable [...] Disp: , Rfl: ??? Diabetic Supplies, [place]. [facility], [place]ax from to [facility] for pump supplies, Disp: 100 each, Rfl: 12 ??? Diabetic Supplies, [facility]. [facility], Fax form to [facility] for testing supplies, Disp: 100 each, [...] ULTRA 2) monitoring kit, 1 each by [facility].(Non- Drug; Combo Route) route as needed for Other. Test BG 5-6 times daily. Diagnosis code 250.63, Disp: 1 each, Rfl: 0 ??? Lancets (ONE TOUCH ULTRASOFT LANCETS) [facility], 1 each by [facility].(Non-Drug; Combo Route) route 6 times daily. Diag code 250.63, Disp: 600 each, Rfl: 3 ??? Cholecalciferol, Vitamin D3, (VITAMIN D-3) 2,000 unit Cap, Take 2,000 Units by mouth daily., Disp: , Rfl: ??? Insulin [place], Disposable, (BD INSULIN PEN NEEDLE UF SHORT) 31 X 5/16 Ndle, by [facility].(Non-Drug; Combo Route) route., Disp: , Rfl: ??? SUBCUTANEOUS INSULIN PUMP (INSULIN PUMP [id number] [facility] by [facility].(Non-Drug; Combo Route) route., Disp: , Rfl: ??? [...] 78.019 kg (172 lb) BMI 26.16 kg/m2 KrF854%. She is a pleasant woman in no [...] Hx ventricular fibrillation with defibrillator Followed [place] [facility] [place] clinic Intolerant of beta blockers 3. Labile hypertension On ARB Assessment She's doing well and free of angina, heart failure, and symptomatic arrhythmias. She cannot tolerate multiple beta blockers and so will not try any more. This may be because she has lost weight. Plan ?? Continue current medications ?? Follow-up in [address] [facility] cc: ?? ALEXANDER ADAMS MD [address] / [place] [address] documented in this encounter Plan of Treatment Upcoming Encounters Date Type Department Care Team (Late st Contact Info) Description 07/25/2024 10:00 AM EDT Hospital Encounter [place] [address] Arrived 09/24/2024 4:00 PM EDT Office Visit Cardiology at [address] [place] [phone] Nathaniel Keita MD [facility] [place] [address] 11/28/2024 10:30 AM EDT Office Visit Cardiology at [address] [phone] Ruebn Hartman, LAURA [facility] [place] [address] documented as of this encounter Visit Diagnoses Diagnosis Coronary artery disease, angina presence unspecified, unspecified vessel or lesion type, unspecified whether [place] or transplanted heart Ventricular fibrillation- with Medtronic ICD implanted 2009 Ventricular fibrillation Essential hypertension Unspecified essential hypertension documented in this encounter Care Teams Recreation Professor Relationship Specialty Start Date End Date Alexander Adams MD [address] [place] [address] PCP - General 04/06/12 07/26/23 documented as of this encounter
--- OUTSIDE RECORDS SUMMARY | 2024-05-03 21:57 | XMS_ITS | Encounter Summary ---
[place] [address] Care Team Providers Care Neonatal Social Worker Name Role Phone Alexander Adams MD Primary Care Provider [phone] Reason for Visit * Auth/Cert Specialty Diagnoses / Procedures Referred By Jessy t Referred To Contact Diagnoses ICD (implantable cardioverter-defibrillator) in place [Z95.810] Procedures ELECTROPHYSIOLOGY PROCEDURE Referral ID Status Reason Start Date Expiration Date Visits Re quested Visits Authorized [id number] 1 1 Encounter Details Date Type Department Care Team (Late st Contact Info) Description 01/12/2019 8:30 AM EDT - 01/12/2019 10:30 AM EDT Surgery [place] [address] Parvez Meyers MD [facility] [place] [address] ELECTROPHYSIOLOGY PROCEDURE Social History Tobacco Use Types [...] incision. Make sure to use a cloth weaver (such as a towel) in between the [...] F. The office scheduling phone number is [phone]. ARM MOVEMENT RESTRICTIONS POST-IMPLANT - Do not [...] this product, please call the office at [phone]. documented in this encounter Medications at Time [...] - 01/12/2019 7:55 AM EDT Liane Cole [id number] 01/12/2019 73 y.o. Cardiology EP History and [...] with a chief complaint of ICD at [facility]. When she was seen in the [...] AM EDT Hospital Encounter Non-Invasive Cardiology Lab [facility] [place] [address] Arrived 09/24/2024 4:00 PM EDT Office Visit Cardiology at [address] [place] [phone] Nathaniel Keita MD [facility] [place] [address] 11/28/2024 10:30 AM EDT Office Visit Cardiology at [address] [place] [phone] Ruben Hartman PA [facility] [place] [address] documented as of this encounter Procedures Procedure [...] (ABNORMAL) POCT Glucose (01/12/2019 10:09 AM EDT) [facility] Signature Glucose, POC 351(H) 65 - 199 mg/dL [facility] Comment: Supplemental ranges: <140 mg/dL before meals <180 mg/dL all other times of the day Blood specimen (specimen) 01/12/2019 10:09 AM EDT 01/12/2019 10:09 AM EDT Parvez Meyers MD POINT OF CARE TEST O RDERAYAEL Performing Organization Address [facility] Co de Phone Number [facility] [place] [address] * (ABNORMAL) POCT Glucose (01/12/2019 7:33 AM EDT) Glucose, POC 224(H) 65 - 199 mg/dL [facility] Comment: Supplemental ranges: <140 mg/dL before meals <180 mg/dL all other times of the day Blood specimen (specimen) 01/12/2019 7:33 AM EDT 01/12/2019 7:33 AM EDT Parvez Meyers MD POINT OF CARE TEST O FABIENNEERAYAEL Performing Organization Address [facility] Co de Phone Number [facility] [place] [address] * Differential, Automated (01/12/2019 7:18 AM EDT) Neutrophil % 59.6 % [facility] Neutrophil Absolute 5.23 1.70 - 6.10 x10(3)/[facility] Lymph % 29.0 % [facility] Lymphocytes Abs 2.5 0.9 - 3.2 x10(3)/[facility] Monocyte % 6.6 % [facility] Monocyte Abs 0.6 0.3 - 0.9 x10(3)/[facility] Eos % 3.8 % [facility] Eosinophils Abs 0.3 0.0 - 0.4 x10(3)/[facility] Basophil % 0.5 % [facility] Baso Absolute 0.0 0.0 - 0.1 x10(3)/[facility] Immature Gran % 0.50 % [facility] Comment: Immature granulocytes(IG's)percentage and absolute count will include metamyelocytes, myelocytes, and promyelocytes. Blood smears from CBCs yielding IG's will be scanned manually for concordance. If this scan disagrees with the automated IG or if promyelocytes are noted, a manual differential will be performed. Immature Gran Absolute 0.04 0.00 - 0.04 x10(3)/[facility] Blood specimen (specimen) 01/12/2019 7:18 AM EDT 01/12/2019 7:38 AM EDT Narrative Resulting Agency Comment Spec In Lab Parvez Meyers MD HEMATOLOGY ORDERABLE S [facility] [place] [address] * Hemogram (01/12/2019 7:18 AM EDT) White Blood Cell 8.8 4.0 - 9.5 x10(3)/[facility] Red Blood Cell 4.03 4.00 - 5.21 x10(6)/[facility] Hemoglobin 11.7 11.7 - 15.5 gm/dL [facility] Hematocrit 36.2 35.7 - 45.8 % [facility] Mean Cell Volume 89.8 82.6 - 94.4 fL [facility] Mean Cell Hemoglobin 29.0 27.1 - 32.0 pg [facility] Mean Cell Hemoglobin Concentration 32.3 31.7 - 35.0 gm/dL [facility] Platelet 224 145 - 357 x10(3)/[facility] RDW Standard Deviation 44.5 37.0 - 46.0 fL [facility] RDW coefficient of variation 13.5 11.5 - 14.1 % [facility] Mean Platelet Volume 10.6 7.6 - 12.9 fL [facility] NRBC% auto 0.0 % [facility] NRBC Absolute 0.000 0.000 - 0.000 x10(3)/mcL [facility] Blood specimen (specimen) 01/12/2019 7:18 AM EDT 01/12/2019 7:38 AM EDT Narrative Resulting Agency Comment Spec In Lab Parvez Meyers MD HEMATOLOGY ORDERABLE S [facility] [place] [address] * (ABNORMAL) BMP w/fasting Glucose (01/12/2019 7:18 AM EDT) Glucose Fasting 216(H) 65 - 99 mg/dL [facility] Comment: ?Fasting* Glucose [...] of Diabetes Mellitus, Position Statement from the [place] [employer]. ??Diabetes Care, Volume 33, Supplement 1, Apr 2009 Blood Urea Nitrogen 18 8 - 18 mg/dL [facility] Creatinine 0.89 0.70 - 1.20 mg/dL [facility] Sodium 141 135 - 145 mmol/L [facility] Potassium 4.4 3.5 - 5.0 mmol/L [facility] Comment: Please note: ??Patients with WBC >100,000 may have falsely elevated Potassium levels. ??For accurate Potassium quantification in these patients send serum separator tube (gold top) for subsequent determinations. ??Contact the Clinical Chemistry Laboratory if there are any questions. Chloride 101 98 - 107 mmol/L [facility] Carbon Dioxide 27 22 - 31 mmol/L [facility] Anion Gap 13 5 - 15 mmol/L [facility] Calcium 9.4 8.5 - 10.5 mg/dL [facility] Est Glomerular Filtration Rate 64 >=60 mL/min/1. 73 m?? [facility] Comment: The eGFR was calculated using the CKD-EPI equation. As with all creatinine based estimates of kidney function, eGFR values calculated with the CKD-EPI equation are not accurate in patients with acute kidney failure, extremes of body mass or the acutely ill. [email or web address] eGFR 74 >=60 mL/min/1. 73 m?? [facility] Comment: The eGFR was calculated using the CKD-EPI equation. As with all creatinine based estimates of kidney function, eGFR values calculated with the CKD-EPI equation are not accurate in patients with acute kidney failure, extremes of body mass or the acutely ill. [email or web address] Blood specimen (specimen) 01/12/2019 7:18 AM EDT 01/12/2019 7:38 AM EDT Narrative Resulting Agency Comment Spec In Lab Parvez Meyers MD CHEMISTRY ORDERABLES [facility] [place] [address] * SCAN DOC: IMPLANTABLE DEVICES (01/12/2019 12:00 [...] to induce or maintain moderate sedation per [facility] Moderate Sedation Policy for the duration of the EP procedure., As needed to induce or maintain moderate sedation per [facility] Moderate Sedation Policy for the duration of [...] to induce or maintain moderate sedation per [facility] Moderate Sedation Policy for the duration of the EP procedure., As needed to induce or maintain moderate sedation per [facility] Moderate Sedation Policy for the duration of [...] to induce or maintain moderate sedation per [facility] Moderate Sedation Policy for the duration of the EP procedure., As needed to induce or maintain moderate sedation per [facility] Moderate Sedation Policy for the duration of [...] to induce or maintain moderate sedation per [facility] Moderate Sedation Policy for the duration of the EP procedure., As needed to induce or maintain moderate sedation per [facility] Moderate Sedation Policy for the duration of [...] RN) documented in this encounter Care Teams Neonatal Social Worker Relationship Specialty Start Date End Date Alexander Adams MD [address] [place] [address] PCP - General 04/06/12 07/26/23 documented as of this encounter
--- OUTSIDE RECORDS SUMMARY | 2024-05-03 21:57 | XMS_ITS | Encounter Summary ---
[place] [address] Care Team Providers Care Race Starter Name Role Phone Alexander Adams MD Primary Care Provider [phone] Encounter Details Date Type Department Care Team (Late st Contact Info) Description 12/19/2014 Telephone [place] [phone] Stella Hernandez LPN Social History Tobacco Use [...] [employer] as Rx in August went to [facility] diabetes. documented in this encounter Plan of Treatment Upcoming Encounters Date Type Department Care Team (Late st Contact Info) Description 07/25/2024 10:00 AM EDT Hospital Encounter Non-Invasive [place] [address] Arrived 09/24/2024 4:00 PM EDT Office Visit Cardiology at [address] [phone] Nathaniel Keita MD [facility] [place] [address] 11/28/2024 10:30 AM EDT Office Visit Cardiology at [address] [phone] Ruben Hartman PA [facility] [place] [address] documented as of this encounter Visit Diagnoses Not on filedocumented in this encounter Care Teams Race Starter Relationship Specialty Start Date End Date Alexander Adams MD [address] [place] [address] PCP - General 04/06/12 07/26/23 documented as of this encounter
--- OUTSIDE RECORDS SUMMARY | 2024-05-03 21:57 | XMS_ITS | Encounter Summary ---
[place] [address] Care Team Providers Care Nurse Extern Name Role Phone Alexander Adams MD Primary Care Provider Encounter Details Date Type Department Care Team (Late st Contact Info) Description 08/15/2014 External Results Cardiology at [address] [address] Alexander Adams MD [address] [place] [address] Social History Tobacco Use Types [...] AM EDT Hospital Encounter Non[place] [address] Arrived 09/24/2024 4:00 PM EDT Office Visit Cardiology at [address] [phone] Nathaniel Keita MD [facility] [place] [address] 11/28/2024 10:30 AM EDT Office Visit Cardiology at [address] [place] [address] Ruben Hartman PA [facility] [place] [address] documented as of this encounter Procedures Procedure Name Priority Date/Time Associated Diagnosis Comments EP DEVICE SCAN Routine 08/13/2014 documented in this encounter Results * Scan Doc: EP Device (08/13/2014) Anatomical Region Laterality Modality Other Alexander Adams MD MEDIA MGR SCAN EXT O RDR/RSLT documented in this encounter Visit Diagnoses Not on filedocumented in this encounter Care Teams Nurse Extern Relationship Specialty Start Date End Date Alexander Adams MD [address] [place] [address] PCP - General 04/06/12 07/26/23 documented as of this encounter
--- OUTSIDE RECORDS SUMMARY | 2024-05-03 21:58 | XMS_ITS | Encounter Summary ---
Author Organization [facility] [place] [address] Care Team Providers Care Dairy Quality Assurance Officer Name Role Phone Alexander Adams MD Primary Care Provider [phone] Reason for Visit * Reason Onset Date Comments Medication Refill 01/23/2014 Encounter Details Date Type Department Care Team (Late st Contact Info) Description 01/23/2014 Refill [place] [phone] Jaylin Salcido APRN Social History Tobacco Use [...] AM EDT Hospital Encounter Non-[place]vasive [place] [phone] Arrived 09/24/2024 4:00 PM EDT Office Visit Cardiology at [address] [phone] Nathaniel Keita MD [facility] [place] [address] 11/28/2024 10:30 AM EDT Office Visit Cardiology at [address] [place] [address] Ruben Hartman, PA [facility] [place] [address] documented as of this encounter Visit Diagnoses Not on filedocumented in this encounter Care Teams Dairy Quality Assurance Officer Relationship Specialty Start Date End Date Alexander Adams MD [address] [place] [address] PCP - General 04/06/12 07/26/23 documented as of this encounter
--- OUTSIDE RECORDS SUMMARY | 2024-05-03 21:58 | XMS_ITS | Encounter Summary ---
Author Organization [facility] [place] [address] Care Team Providers Care Barker Peeler Name Role Phone Alexander Adams MD Primary Care Provider [phone] Reason for Visit * Reason Onset Date Comments Medication Refill 05/08/2013 Encounter Details Date Type Department Care Team (Late st Contact Info) Description 05/08/2013 [place] [phone] Jaylin Salcido APRN Social History Tobacco Use [...] AM EDT Hospital Encounter Non-[place] [phone] Arrived 09/24/2024 4:00 PM EDT Office Visit Cardiology at [address] [phone] Nathaniel Keita MD [facility] [place] [address] 11/28/2024 10:30 AM EDT Office Visit Cardiology at [address] [place] [address] Ruben Hartman, PA [facility] [place] [address] documented as of this encounter Visit Diagnoses Not on filedocumented in this encounter Care Teams Barker Peeler Relationship Specialty Start Date End Date Alexander Adams MD [address] [place] [address] PCP - General 04/06/12 07/26/23 documented as of this encounter
--- OUTSIDE RECORDS SUMMARY | 2024-05-03 21:58 | XMS_ITS | Encounter Summary ---
[place] [address] Care Team Providers Care Industrial Mechanic Name Role Phone Alexander Adams MD Primary Care Provider [phone] Reason for Visit * Reason Comments Diabetes Encounter Details Date Type Department Care Team (Late st Contact Info) Description 08/08/2013 9:30 AM EDT Office Visit [place] [phone] Elisha Nichols MD Type 1 diabetes mellitus [...] and 10 p.m. 1.15. Total basal 28.85. Saqmywt-gk-hylp 1:12. Correction factor 25. Target 95 to [...] but no recent ulceration. 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 She has coronary disease. She had [...] by mouth daily. ??? Diabetic Supplies, Miscellan. Misc Fax form to [facility] Diabetes [...] 2) monitoring kit [address] [facility].(Non- Drug; Combo Route) route as needed for Other. Test BG 5-6 times daily. Diagnosis code 250.63 1 each 0 ??? Lancets (ONE TOUCH ULTRASOFT LANCETS) [facility] [address] [facility].(Non-Drug; Combo Route) route 6 timesdaily. Diag code [...] 20 mg by mouth daily. ??? Insulin [place], Disposable, (BD INSULIN PEN NEEDLE UF SHORT) 31 X 5/[address] [facility].(Non-Drug; Combo Route) route. ??? SUBCUTANEOUS INSULIN PUMP (INSULIN PUMP EX3905 [facility]) by [facility].(Non-Drug; Combo Route) route. ??? aspirin 81 mg [...] children, 48 and 45. 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 REVIEW OF SYSTEMS: Complete review of systems, [...] AM EDT Hospital Encounter Non[place] [phone] Arrived 09/24/2024 4:00 PM EDT Office Visit Cardiology at [address] [place] [phone] Nathaniel Keita MD [facility] [address] 11/28/2024 10:30 AM EDT Office Visit Cardiology at [address] [place] [phone] Ruben Hartman PA [facility] [place] [address] documented as of this encounter Results * (ABNORMAL) Hemoglobin A1c (11/13/2013 9:26 AM EDT) [facility] Hemoglobin A1c 7.8(H) <=5.6 % JOSE [...] Mellitus, Diabetes Care 2013; 36: Suppl. 1, Q28-01 Estimated Average Glucose 177 mg/dL THOMPSON TENA [...] resources are available on the ADA website: http://[email or web address] Shuttle.[email or web address] Alfred JEFFRIES, Risa J, Sergio R, et al. ??Translating the A1C assay into estimated average glucose values. ??Diabetes Care 2008:31(8):5513-2199. 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
--- OUTSIDE RECORDS SUMMARY | 2024-05-03 21:58 | XMS_ITS | Encounter Summary ---
[place] [address] Care Team Providers Care Engineering Operator Name Role Phone Alexander Adams MD Primary Care Provider [phone] Encounter Details Date Type Department Care Team (Late st Contact Info) Description 08/15/2014 1:00 PM EDT Office Visit [place] [address] Elisha Nichols MD Type 1 diabetes mellitus [...] 28.0. Total daily doses range from 29.25-44.2. [id number]-bc-uavg 1:7. Correction factor 25. Target 95 to [...] Diabetic Supplies, Miscellan. Misc Fax form to [facility] for testing supplies 100 each 12 ??? carvedilol (COREG) 3.125 mg Tablet Take 3.125 mg by mouth daily. ??? traMADol-acetaminophen (ULTRACET) 37.5-325 mg Tablet Take 1 tablet by mouth 2 times daily as needed for Pain. 60 tablet 5 ??? Diabetic Supplies, Miscellan. [facility] (Patient taking [...] 2) monitoring kit 1 each by [facility].(Non- Drug; Combo Route) route as needed for Other. Test BG 5-6 times daily. Diagnosis code 250.63 1 each 0 ??? Cholecalciferol, Vitamin D3, (VITAMIN D-3) 2,000 unit Cap Take 2,000 Units by mouth daily. ??? atorvastatin (LIPITOR) 20 mg tablet Take 40 mg by mouth daily. ??? Insulin Blunt, Disposable, (BD INSULIN PEN NEEDLE UF SHORT) 31 X 5/16 Ndle by [facility].(Non-Drug; Combo Route) route. ??? SUBCUTANEOUS INSULIN PUMP (INSULIN PUMP [id number] [facility]) by [facility].(Non-Drug; Combo Route) route. ??? aspirin 81 [...] TOUCH ULTRASOFT LANCETS) Misc 1 each by [facility].(Non-Drug; Combo Route) route 6 timesdaily. Diag code [...] is going well. 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 [employer] and for the next three weeks, she [...] AM EDT Hospital Encounter Non-[place] [address] Arrived 09/24/2024 4:00 PM EDT Office Visit Cardiology at [address] [address] Nathaniel Keita MD [facility] [place] [address] 11/28/2024 10:30 AM EDT Office Visit Cardiology at [address] [address] Ruben Hartman PA [facility] [place] [address] documented as of this encounter Results * Microalbumin, urine, random (02/17/2015 9:27 AM EST) Creatinine, Urine 102 mg/dL CE ERROL MILLENNIUM Albumin, Urine <3.0 mg/L JOSE Connor MILLENNIUM Albumin / Creatinin Ratio, Urine <3 mcg/mg Cr THOMPSON MILLENNIUM Comment: Reference Range* Random collection (mcg/mg creatinine) Normal ?<30 Microalbuminuria ?? 30 - 300 Clinical Albuminuria ?? >300 *[place] Diabetes Association. Diabetic Nephropathy. Diabetes Care 1997;(Suppl 1):S24-S27 Exercise within 24 hour, infection, fever, CHF, marked hyperglycemia, and marked hypertension may elevate urinary albumin excretion over baseline values. Urine specimen (specimen) 02/17/2015 9:27 AM EST 02/17/2015 9:34 AM EST Narrative Resulting Agency Comment Spec In Lab Elisha Nichols MD URINE ORDERABLES Performing Organization Address [facility]/ZIP Co de Phone Number [facility] * HDL/Cholesterol Profile (02/17/2015 9:21 AM EST) Cholesterol, Total 132 <=199 mg/dL CERNER MILLENNIUM Comment: Recommendations of the NCEP Adult Treatment Panel for the following risk cutoff thresholds for the [place] population: Desirable: <200 mg/dL Borderline High: 200-239 mg/dL High: > or = 240 mg/dL HDL Cholesterol 52 >=40 mg/dL CER NER MILLENNIUM Comment: Reference range: ??Low HDL: ?? < 40 mg/dL ??Normal: ?40-60 mg/dL ??Desirable: > 60 mg/dL REJI 2001; 285(19):8776-6254 Cholesterol/HDL Ratio 2.5 ratio CERNER MILLENNIUM Comment: A Cholesterol to HDL ratio below 4:1 is desirable. ??Studies suggest that increased CAD risk occurs at ratios above 5 for females and above 6 for men. ? [place] Heart Association ??(http://www.americanheart.org) ? Aurelia Int Med, 1994; 121:641 ? AM J Med, 1998; 105(1A):48S Blood specimen (specimen) 02/17/2015 9:21 AM EST 02/17/2015 9:28 AM EST Narrative Resulting Agency Comment Spec In Lab Elisha Nichols MD CHEMISTRY ORDERAB LES Performing Organization Address City/[facility]/ZIP Co de Phone Number THOMPSON TENA * (ABNORMAL) Creatinine (02/17/2015 9:21 AM EST) Creatinine 0.95 0.70 - 1.20 mg/dL [facility] Comment: Please note that the pediatric reference intervals supplied above were not validated at [facility]. Results from pediatric patients should be interpreted in conjunction to the patient's age, height and muscle mass. Est Glomerular Filtration Rate 58(L) >=60 [facility] Comment: This estimated GFR (eGFR) value [...] the following links into your internet browser. http://American TV 2 Go/DHnkdep http://American TV [employer] Go/[facility] Blood specimen (specimen) 02/17/2015 9:21 AM EST 02/17/2015 9:28 AM EST Narrative Resulting Agency Comment Spec In Lab Elisha Nichols MD CHEMISTRY ORDERAB LES THOMPSON TENA * (ABNORMAL) Hemoglobin A1c (02/17/2015 9:21 AM EST) Hemoglobin A1c 7.7(H) 4.3 - 5.6 % [facility] Comment: Reference Range: 4.3 - [...] Mellitus, Diabetes Care 2013; 36: Suppl. 1, M07-55 Estimated Average Glucose See note mg/dL [facility] Comment: Estimated Average Glucose not appropriate for [...] resources are available on the ADA website: http://Sqwiggle.CardioDx/DHMCadacalc Alfred JEFFRIES, Risa J, Sergio R, et al. ??Translating the A1C assay into estimated average glucose values. ??Diabetes Care 2008:31(8):5175-3595. Blood specimen (specimen) 02/17/2015 9:21 AM EST 02/17/2015 9:28 AM EST Narrative Resulting Agency Comment Spec In Lab Elisha Nichols MD CHEMISTRY ORDERAB LES [facility] documented in this encounter Visit Diagnoses Diagnosis Type 1 diabetes mellitus with diabetic neuropathy Type I (juvenile type) diabetes mellitus with neurological manifestations, not stated as uncontrolled documented in this encounter Care Teams Engineering Operator Relationship Specialty Start Date End Date Alexander Adams MD [address] [place] [address] PCP - General 04/06/12 07/26/23 documented as of this encounter
--- OUTSIDE RECORDS SUMMARY | 2024-05-03 21:58 | XMS_ITS | Encounter Summary ---
[place] [address] Care Team Providers Care Welder/Fitter Name Role Phone Alexander Adams MD Primary Care Provider [phone] Reason for Visit * Reason Onset Date Comments Eye Problem 07/31/2014 vision changes Encounter Details Date Type Department Care Team (Late st Contact Info) Description 07/31/2014 [place] [phone] Celena Briceño MD [facility] [place] [address] Eye Problem (vision changes) Social History Tobacco [...] Name MRN Sex Address Phone Liane Cole [id number] Female 1945 [address] [place] [address] Message Good Morning, Yesterday I started having [...] you know about it. Thank you. Liane Cole : 1945 Melissa Cleary MD at 05/29/2014 2:51 PM Author Type: Physician Status: Signed Manager Shipping: Melissa Cleary MD (Physician) Expand All Collapse All Stable PDR OU, with full PRP and complete involution. Plan: RTC 1 yr. documented in this encounter Plan of Treatment Upcoming Encounters Date Type Department Care Team (Late st Contact Info) Description 07/25/2024 10:00 AM EDT Hospital Encounter Non-Invasive [place] [address] Arrived 09/24/2024 4:00 PM EDT Office Visit Cardiology at [address] [place] [address] Nathaniel Keita MD [facility] [place] [place] [address] 11/28/2024 10:30 AM EDT Office Visit Cardiology at [address] [place] [address] Ruben Hartman PA [facility] [place] [address] documented as of this encounter Visit Diagnoses Not on filedocumented in this encounter Care Teams Welder/Fitter Relationship Specialty Start Date End Date Alexander Adams MD [address] [place] [address] PCP - General 04/06/12 07/26/23 documented as of this encounter
--- OUTSIDE RECORDS SUMMARY | 2024-05-03 21:58 | XMS_ITS | Encounter Summary ---
[place] [address] Care Team Providers Care Low Altitude Air Defense Gunner Name Role Phone Alexander Adams MD Primary Care Provider [phone] Encounter Details Date Type Department Care Team (Late st Contact Info) Description 03/05/2013 Tele[place] [address] Stella Hernandez LPN Social History Tobacco Use [...] C-peptide,FBG and last office note faxed to [employer]. Confirmation on fax received. documented in this encounter Plan of Treatment Upcoming Encounters Date Type Department Care Team (Late st Contact Info) Description 07/25/2024 10:00 AM EDT Hospital Encounter Non-Invasive [place] [address] Arrived 09/24/2024 4:00 PM EDT Office Visit Cardiology at [address] [phone] Nathaniel Keita MD [facility] [place] [address] 11/28/2024 10:30 AM EDT Office Visit Cardiology at [address] [phone] Ruben Hartman PA [facility] [place] [address] documented as of this encounter Visit Diagnoses Not on filedocumented in this encounter Care Teams Low Altitude Air Defense Gunner Relationship Specialty Start Date End Date Alexander Adams MD [address] [place] [address] PCP - General 04/06/12 07/26/23 documented as of this encounter
--- OUTSIDE RECORDS SUMMARY | 2024-05-03 21:58 | XMS_ITS | Encounter Summary ---
[place] [address] Care Team Providers Care Belt Notcher Name Role Phone Alexander Adams MD Primary Care Provider [phone] Reason for Visit * Reason Onset Date Comments Medication Refill 05/20/2014 Encounter Details Date Type Department Care Team (Late st Contact Info) Description 05/20/2014 [place] [phone] Jaylin Salcido APRN Social History Tobacco Use [...] PM EST Received faxed in request from [facility] for metoprolol for liane documented in this encounter Plan of Treatment Upcoming Encounters Date Type Department Care Team (Late st Contact Info) Description 07/25/2024 10:00 AM EDT Hospital Encounter Non-Invasive [place] [address] Arrived 09/24/2024 4:00 PM EDT Office Visit Cardiology at [address] [phone] Nathaniel Keita MD [facility] [address] 11/28/2024 10:30 AM EDT Office Visit Cardiology at [address] [phone] Ruben Hartman, [facility] [place] [address] documented as of this encounter Visit Diagnoses Not on filedocumented in this encounter Care Teams Belt Notcher Relationship Specialty Start Date End Date Alexander Adams MD [address] [place] [address] PCP - General 04/06/12 07/26/23 documented as of this encounter
--- OUTSIDE RECORDS SUMMARY | 2024-05-03 21:58 | XMS_ITS | Encounter Summary ---
Author Organization [facility] [place] [address] Care Team Providers Care Photoengraving Proofer Name Role Phone Alexander Adams MD Primary Care Provider [phone] Reason for Visit * Reason Onset Date Comments Medication Refill 12/21/2013 Encounter Details Date Type Department Care Team (Late st Contact Info) Description 12/21/2013 Ref[place] [phone] Jaylin Salcido APRN Social History Tobacco Use [...] AM EDT Hospital Encounter Non-[place] [phone] Arrived 09/24/2024 4:00 PM EDT Office Visit Cardiology at [address] [phone] Nathaniel Keita MD [facility] [place] [address] 11/28/2024 10:30 AM EDT Office Visit Cardiology at [address] [place] [address] Ruben Hartman, PA [facility] [place] [address] documented as of this encounter Visit Diagnoses Not on filedocumented in this encounter Care Teams Photoengraving Proofer Relationship Specialty Start Date End Date Alexander Adams MD [address] [place] [address] PCP - General 04/06/12 07/26/23 documented as of this encounter
--- OUTSIDE RECORDS SUMMARY | 2024-05-03 21:58 | XMS_ITS | Encounter Summary ---
[place] [address] Care Team Providers Care Correctional Probation Officer Name Role Phone Alexander Adams MD Primary Care Provider [phone] Encounter Details Date Type Department Care Team (Late st Contact Info) Description 06/18/2013 Telephone [place] [address] Stella Hernandez LPN Social History Tobacco Use [...] 10:30 AM EDT Rx request received from [facility] Called patient [facility] will supply pump supplies. [facility] will be supplier for testing supplies for now. documented in this encounter Plan of Treatment Upcoming Encounters Date Type Department Care Team (Late st Contact Info) Description 07/25/2024 10:00 AM EDT Hospital Encounter Non-Invasive [place] [address] Arrived 09/24/2024 4:00 PM EDT Office Visit Cardiology at [address] [phone] Nathaniel Keita MD [facility] [place] [address] 11/28/2024 10:30 AM EDT Office Visit Cardiology at [address] [phone] Ruben Hartman PA [facility] [address] documented as of this encounter Visit Diagnoses Not on filedocumented in this encounter Care Teams Correctional Probation Officer Relationship Specialty Start Date End Date Alexander Adams MD [address] [place] [address] PCP - General 04/06/12 07/26/23 documented as of this encounter
--- OUTSIDE RECORDS SUMMARY | 2024-05-03 21:58 | XMS_ITS | Encounter Summary ---
[place] [address] Care Team Providers Care Unit Manager Convenience Stores Name Role Phone Alexander Adams MD Primary Care Provider [phone] Encounter Details Date Type Department Care Team (Late st Contact Info) Description 06/15/2013 Telephone [place] [address] Stella Hernandez LPN Social History Tobacco Use [...] AM EDT Hospital Encounter Non-Invasive [place] [address] Arrived 09/24/2024 4:00 PM EDT Office Visit Cardiology at [address] [phone] Nathaniel Keita MD [facility] [place] [address] 11/28/2024 10:30 AM EDT Office Visit Cardiology at [address] [phone] Ruben Hartman, [facility] [place] [address] documented as of this encounter Visit Diagnoses Not on filedocumented in this encounter Care Teams Unit Manager Convenience Stores Relationship Specialty Start Date End Date Alexander Adams MD [address] [place] [address] PCP - General 04/06/12 07/26/23 documented as of this encounter
--- OUTSIDE RECORDS SUMMARY | 2024-05-03 21:58 | XMS_ITS | Encounter Summary ---
[place] [address] Care Team Providers Care Director Of Global Marketing Name Role Phone Alexander Adams MD Primary Care Provider [phone] Encounter Details Date Type Department Care Team (Late st Contact Info) Description 08/20/2013 Notes [place] [address] Kusum [place] RN Social History Tobacco Use [...] - 08/20/2013 1:[address] [facility] Diabetes form Insulin Pump & Pump Supplies Replacement Form/Certificate of Medical Necessity completed and given to Dr. Nichols for signature, along with requested office notes/A1c of 08/08/13 and 05/08/13. To be faxed back to Dmitriy at [phone]. documented in this encounter Plan of Treatment Upcoming Encounters Date Type Department Care Team (Late st Contact Info) Description 07/25/2024 10:00 AM EDT Hospital Encounter Non-[place] [address] Arrived 09/24/2024 4:00 PM EDT Office Visit Cardiology at [address] [phone] Nathaniel Keita MD [facility] [place] [address] 11/28/2024 10:30 AM EDT Office Visit Cardiology at [address] [phone] Ruben Hartman PA [facility] [place] [address] documented as of this encounter Visit Diagnoses Not on filedocumented in this encounter Care Teams Director Of Global Marketing Relationship Specialty Start Date End Date Alexander Adams MD [address] [place] [address] PCP - General 04/06/12 07/26/23 documented as of this encounter
--- OUTSIDE RECORDS SUMMARY | 2024-05-03 21:58 | XMS_ITS | Encounter Summary ---
[place] [address] Care Team Providers Care Retail Support Specialist Name Role Phone Alexander Adams MD Primary Care Provider [phone] Encounter Details Date Type Department Care Team (Latest Contact Info) Description 09/14/2013 10:00 AM EDT Clinical Support Cardiology at [address] [address] Adrian Shrestha, PERSONAL COMPUTER NETWORK ENGINEER [facility] [address] Ventricular fibrillation Social History Tobacco Use Types [...] in SLS study. PCP: ALEXANDER ADAMS MD Fleet Service Clerk: Milind Beasley MD Device and lead information Final Parameters: Ventricular lead: Medtronic Sprint Quattro Model# 6947-58 cm Serial #[id number] Bipolar, steroid-tipped, active-fixation IS-1, DF-1 lead Access: Left axillary vein Location: Right ventricular apex R wave, ICD: 8.0 mV Pacing threshold, ICD: 1.0 V at 0.5 ms Impedance, ICD: 532 ohms HVB Impedance 33 ohms SVC Impedance 39 ohms Pace the diaphragm at 10 V: No Pulse generator: PhatNoisetronic John II VR Model# [id number] Serial# [id number] Single-chamber ICD Location: Subcutaneous Parameters: VF detection rate: >200 bpm VF therapy: ATP during charging, 30J, 35J x 5 FVT detection rate: via VF 250 bpm FVT therapy: Burst(1), 30J, 35J x 4 VT detection rate:182 bpm VT therapy: Burst(3), 20J, 35J x 4 Enhancement: Wavelet, VT Monitor Bradycardia pacing: VVI 40 Follow-up Battery status: 3.10 V GUITAR MAKER: 2.63 V Charge time: 8.7 sec 07/02/2009 [...] 6 mos device clinic Adrian Shrestha, MSN, PERSONAL COMPUTER NETWORK ENGINEER, CCDS documented in this encounter Plan of Treatment Upcoming Encounters Date Type Department Care Team (Late st Contact Info) Description 07/25/2024 10:00 AM EDT Hospital Encounter [place] [address] Arrived 09/24/2024 4:00 PM EDT Office Visit Cardiology at [address] [phone] Nathaniel Keita MD [facility] [place] [address] 11/28/2024 10:30 AM EDT Office Visit Cardiology at [address] [phone] Ruben Hartman PA [facility] [place] [address] documented as of this encounter Visit Diagnoses Diagnosis Ventricular fibrillation documented in this encounter Care Teams Retail Support Specialist Relationship Specialty Start Date End Date Alexander Adams MD [address] [place] [address] PCP - General 04/06/12 07/26/23 documented as of this encounter
--- OUTSIDE RECORDS SUMMARY | 2024-05-03 21:58 | XMS_ITS | Encounter Summary ---
Author Organization [facility] [place] [address] Care Team Providers Care Blankbook Stitching Machine Operator Name Role Phone Alexander Adams MD Primary Care Provider [phone] Reason for Visit * Reason Onset Date Comments Medication Refill 01/04/2014 Encounter Details Date Type Department Care Team (Late st Contact Info) Description 01/04/2014 [place] [phone] Melisa Randhawa MD [facility] [address] DM (diabetes mellitus) (Primary Dx) Social History [...] AM EDT Hospital Encounter Non-[place] [phone] Arrived 09/24/2024 4:00 PM EDT Office Visit Cardiology at [address] [facility] [place] [address] Nathaniel Keita MD [facility] [place] [address] 11/28/2024 10:30 AM EDT Office Visit Cardiology at [address] [place] [phone] Ruben Hartman, [facility] [place] [address] documented as of this encounter Visit Diagnoses Diagnosis DM (diabetes mellitus)- Primary Type II or unspecified type diabetes mellitus without mention of complication, not stated as uncontrolled documented in this encounter Care Teams Blankbook Stitching Machine Operator Relationship Specialty Start Date End Date Alexander Adams MD [address] [place] [address] PCP - General 04/06/12 07/26/23 documented as of this encounter
--- OUTSIDE RECORDS SUMMARY | 2024-05-03 21:58 | XMS_ITS | Encounter Summary ---
Author Organization [facility] [place] [address] Care Team Providers Care Notch Machine Operator Name Role Phone Alexander Adams MD Primary Care Provider [phone] Reason for Visit * Reason Onset Date Comments Medication Refill 03/13/2013 Encounter Details Date Type Department Care Team (Late st Contact Info) Description 03/13/2013 Refill [place] [phone] Jaylin Salcido APRN Social History Tobacco Use [...] EDT Hospital Encounter Non-Invasive [place] [phone] Arrived 09/24/2024 4:00 PM EDT Office Visit Cardiology at [address] [phone] Nathaniel Keita MD [facility] [place] [address] 11/28/2024 10:30 AM EDT Office Visit Cardiology at [address] [place] [address] Ruben Hartman, PA [facility] [place] [address] documented as of this encounter Visit Diagnoses Not on filedocumented in this encounter Care Teams Notch Machine Operator Relationship Specialty Start Date End Date Alexander Adams MD [address] [place] [address] PCP - General 04/06/12 07/26/23 documented as of this encounter
--- OUTSIDE RECORDS SUMMARY | 2024-05-03 21:58 | XMS_ITS | Encounter Summary ---
[place] [address] Care Team Providers Care Process Control Board Operator Name Role Phone Alexander Adams MD Primary Care Provider [phone] Encounter Details Date Type Department Care Team (Latest Contact Info) Description 09/14/2013 9:21 AM EDT - 09/14/2013 11:59 PM EDT Hospital Encounter Non-[place]vasive [place] [phone] CLINIC, Bhavna Moura MD Heart disease, unspecified; [...] mg by mouth daily. 07/27/2023 Diabetic Supplies, [employer]. [facility] Fax form to [facility] Diabetes [...] ULTRA 2) monitoring kit 1 each by [facility].(Non-Drug; Combo Route) route as needed for Other. Test BG 5-6 times daily. Diagnosis code 250.63 1 each 0 03/12/2013 03/31/2017 Lancets (ONE TOUCH ULTRASOFT LANCETS) Misc 1 each by [facility]Non-Drug; Combo Route) route 6 times [...] 40 mg by mouth daily. 11/28/2014 Insulin [place], Disposable, (BD INSULIN PEN NEEDLE UF SHORT) 31 X 08/17 Ndle by [facility]Non-Drug; Combo Route) route. 03/31/2017 SUBCUTANEOUS INSULIN PUMP (INSULIN PUMP [id number] [facility]) by [facility]Non-Drug; Combo Route) route. 03/31/2017 acetaminophen [...] AM EDT Hospital Encounter Non-Invasive [place] [address] Arrived 09/24/2024 4:00 PM EDT Office Visit Cardiology at [address] [phone] Nathaniel Keita MD [facility] [address] 11/28/2024 10:30 AM EDT Office Visit Cardiology at [address] [address] Ruben Hartman PA [facility] [address] documented as of this encounter Procedures Procedure [...] KAN Tyler ? (Age): 1945(67) Med Rec#: ?[id number] ? Sex: ?F ? Site Loc: ?[facility] ? Ht / Wt: ??172(cm)/87(kg) Pt. Loc: ? Echo Lab ? BSA: ?2 Study Date: ?09/14/2013 ? Pt. Type: Outpatient Tape: ? Referring: Bhavna Malin Referring: BHAVNA MALIN B Correctional Officer: Gifty Fleming Nurse: Esvin Messer RN Diagnosis:CPT Code(s): ??Color Doppler (24343), ??ECG Interpretation (25693), ??Definity (38690DA), ??Stress Echo (02375), ??Spectral Doppler (10211), Indication(s): ??Pre-op cardiovascular evaluation Medication(s): ?? Rhythm: [...] ?Normal ?Normal ? Mid-Inferoseptal ?Normal ?Normal ? [place]-Septal ? Normal ?Normal ? [place]-Anterior ? Normal ?Normal ? [place]-Lateral ?Normal ?Normal ? [place]-Inferior ? Normal ?Normal ? [place]-Tip ?Normal ?Akinetic ? Chambers ?Value ?Units (Range) [...] 09/14/2013 11:22:11 Images reviewed and interpretation verified [facility] Cardiac Ultrasound Laboratory Procedure Note Carter Mota MD - 09/14/2013 Procedure: Stress Echocardiogram Patient: KAN MATHIS(Age): 1945(67) Med Rec#: [id number] Sex: F Site Loc: [facility] Ht / Wt: 172(cm)/87(kg) Pt. Loc: Echo Lab BSA: 2 Study Date: 09/14/2013 Pt. Type: Outpatient Tape: Referring: Bhavna Malin Referring: BHAVNA MALIN B Correctional Officer: Gifty Fleming Nurse: Esvin Messer RN Diagnosis:CPT Code(s): Color Doppler (08590), ECG Interpretation (78652), Definity (16913GT), Stress Echo (31255), Spectral Doppler (26802), Indication(s): Pre-op cardiovascular evaluation Medication(s): Rhythm: Stage [...] lowering agent. The patient is taking aspirin. [facility] Other echo and stress findings as noted [...] Normal Mid-Inferior Normal Normal Mid-Inferoseptal Normal Normal [place]-Septal Normal Normal [place]-Anterior Normal Normal [place]-Lateral Normal Normal [place]-Inferior Normal Normal [place]-Tip Normal Akinetic Chambers Value Units (Range) LV [...] 09/14/2013 11:22:11 Images reviewed and interpretation verified [facility] Cardiac Ultrasound Laboratory Bhavna Malin [...] mLs documented in this encounter Care Teams Process Control Board Operator Relationship Specialty Start Date End Date Alexander Adams MD [address] [place] [address] PCP - General 04/06/12 07/26/23 documented as of this encounter
--- OUTSIDE RECORDS SUMMARY | 2024-05-03 21:58 | XMS_ITS | Encounter Summary ---
Author Organization [facility] [place] [address] Care Team Providers Care Flatwork Tier Name Role Phone Alexander Adams MD Primary Care Provider [phone] Reason for Visit * Reason Onset Date Comments Medication Refill 03/12/2013 Encounter Details Date Type Department Care Team (Late st Contact Info) Description 03/12/2013 [place] [phone] Jaylin Salcido APRN Social History Tobacco Use [...] AM EDT Hospital Encounter Non-[place] [phone] Arrived 09/24/2024 4:00 PM EDT Office Visit Cardiology at [address] [phone] Nathaniel Keita MD [facility] [place] [address] 11/28/2024 10:30 AM EDT Office Visit Cardiology at [address] [place] [address] Ruben Hartman, PA [facility] [place] [address] documented as of this encounter Visit Diagnoses Not on filedocumented in this encounter Care Teams Flatwork Tier Relationship Specialty Start Date End Date Alexander Adams MD [address] [place] [address] PCP - General 04/06/12 07/26/23 documented as of this encounter
--- OUTSIDE RECORDS SUMMARY | 2024-05-03 21:58 | XMS_ITS | Encounter Summary ---
Author Organization [facility] [place] [address] Care Team Providers Care Ordering Box Operator Name Role Phone Alexander Adams MD Primary Care Provider [phone] Encounter Details Date Type Department Care Team (Late st Contact Info) Description 02/28/2013 [place] [address] Melissa Cleary MD Social History Tobacco Use [...] AM EDT Hospital Encounter Non-Invasive [place] [phone] Arrived 09/24/2024 4:00 PM EDT Office Visit Cardiology at [address] [place] [phone] Nathaniel Keita MD [facility] [place] [address] 11/28/2024 10:30 AM EDT Office Visit Cardiology at [address] [place] [phone] Ruben Hartman, LAURA [facility] [place] [address] documented as of this encounter Visit Diagnoses Not on filedocumented in this encounter Care Teams Ordering Box Operator Relationship Specialty Start Date End Date Alexander Adams MD [address] [place] [address] PCP - General 04/06/12 07/26/23 documented as of this encounter
--- OUTSIDE RECORDS SUMMARY | 2024-05-03 21:58 | XMS_ITS | Encounter Summary ---
Author Organization [facility] [place] [address] Care Team Providers Care Claim Trainee Name Role Phone Alexander Adams MD Primary Care Provider [phone] Reason for Visit * Reason Onset Date Comments Medication Refill 07/29/2014 Encounter Details Date Type Department Care Team (Late st Contact Info) Description 07/29/2014 Refill [place] [phone] Jaylin Salcido APRN Social History Tobacco Use [...] AM EDT Hospital Encounter Non-Invasive [place] [phone] Arrived 09/24/2024 4:00 PM EDT Office Visit Cardiology at [address] [phone] Nathaniel Keita MD [facility] [place] [address] 11/28/2024 10:30 AM EDT Office Visit Cardiology at [address] [place] [address] Ruben Hartman, PA [facility] [place] [address] documented as of this encounter Visit Diagnoses Not on filedocumented in this encounter Care Teams Claim Trainee Relationship Specialty Start Date End Date Alexander Adams MD [address] [place] [address] PCP - General 04/06/12 07/26/23 documented as of this encounter
--- OUTSIDE RECORDS SUMMARY | 2024-05-03 21:58 | XMS_ITS | Encounter Summary ---
Author Organization Formerly [facility] [place] [address] Care Team Providers Care Electronic Components Assembler Name Role Phone Alexander Adams MD Primary Care Provider [phone] Reason for Visit * Reason Comments Follow-up Encounter Details Date Type Department Care Team (Late st Contact Info) Description 05/16/2014 9:10 AM EST Follow-Up Cardiology at [address] [phone] Thaddeus Cespedes RN Andrus, Bruce W, MD [facility] [address] Ventricular fibrillation- with ICD; Essential hypertension; CHD, [...] Beasley MD - 05/16/2014 8:57 AM EST [facility] Cardiology Clinic Identification 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 Adams, an outpatient scheduler in [place], [place] with the following CV issues: 1. [...] 2013 Has spinal fusion in September at [facility] and it made a BIG difference No cardiac concerns. No angina, sob, edema, palpitations. No ICD discharges Had DSE preop in September and it showed only apical ischemia. Walking 3 miles per hour. Last A1c was 7.9. Increased insulin to 1 unit for every 8 gms of CHO. Social History (Phillip) Lives in [place], [place]. Near [facility]. 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 Family History Notable for diabetes, coronary disease, and strokes. Medications Current Outpatient Prescriptions Medication Sig Dispense Refill ??? Diabetic Supplies, [employer]. Misc Fax form to [employer] for INSULIN PUMP SUPPLIES 100 each 12 [...] ULTRA 2) monitoring kit 1 each by [facility].(Non- Drug; Combo Route) route as needed for Other. Test BG 5-6 times daily. Diagnosis code 250.63 1 each 0 ??? Lancets (ONE TOUCH ULTRASOFT LANCETS) [facility] 1 each by [facility].(Non-Drug; Combo Route) route 6 timesdaily. Diag code 250.63 600 each 3 ??? Cholecalciferol, Vitamin D3, (VITAMIN D-3) 2,000 unit Cap Take 2,000 Units by mouth daily. ??? atorvastatin (LIPITOR) 20 mg tablet Take 20 mg by mouth daily. ??? Insulin [place], Disposable, (BD INSULIN PEN NEEDLE UF SHORT) 31 X 5/16 Ndle by [facility].(Non-Drug; Combo Route) route. ??? SUBCUTANEOUS INSULIN PUMP (INSULIN PUMP [id number] [facility]) by [facility].(Non-Drug; Combo Route) route. ??? aspirin 81 mg [...] ALEXANDER ADAMS MD [address] / [facility] [address] documented in this encounter Plan of Treatment Upcoming Encounters Date Type Department Care Team (Late st Contact Info) Description 07/25/2024 10:00 AM EDT Hospital Encounter Non-Invasive [place] [address] Arrived 09/24/2024 4:00 PM EDT Office Visit Cardiology at [address] [phone] Nathaniel Keita MD [facility] [place] [address] 11/28/2024 10:30 AM EDT Office Visit Cardiology at [address] [phone] Ruben Hartman, PA [facility] [place] [address] documented as of this encounter Visit Diagnoses Diagnosis Ventricular fibrillation- with ICD Ventricular fibrillation Essential hypertension Unspecified essential hypertension CHD, s/p arrest and 2v CABG in 2009, preserved LV function Coronary atherosclerosis of unspecified type of vessel, [place] or graft documented in this encounter Care Teams Electronic Components Assembler Relationship Specialty Start Date End Date Alexander Adams MD [address] [place] [address] PCP - General 04/06/12 07/26/23 documented as of this encounter
--- OUTSIDE RECORDS SUMMARY | 2024-05-03 21:58 | XMS_ITS | Encounter Summary ---
[place] [address] Care Team Providers Care Transmission Supervisor Name Role Phone Alexander Adams MD Primary Care Provider [phone] Reason for Visit * Reason Onset Date Comments Medication Refill 06/15/2013 Encounter Details Date Type Department Care Team (Late st Contact Info) Description 06/15/2013 [place] [address] Chris Chatman MD [facility] [place] [address] Social History Tobacco Use Types Packs/Day Years [...] AM EDT Hospital Encounter Non-[place] [address] Arrived 09/24/2024 4:00 PM EDT Office Visit Cardiology at [address] [address] Nathaniel Keita MD [facility] [place] [address] 11/28/2024 10:30 AM EDT Office Visit Cardiology at [address] [phone] Ruben Hartman PA [facility] [place] [address] documented as of this encounter Visit Diagnoses Not on filedocumented in this encounter Care Teams Transmission Supervisor Relationship Specialty Start Date End Date Alexander Adams MD [address] [place] [address] PCP - General 04/06/12 07/26/23 documented as of this encounter
--- OUTSIDE RECORDS SUMMARY | 2024-05-03 21:58 | XMS_ITS | Encounter Summary ---
[place] [address] Care Team Providers Care Youth Probation Officer Name Role Phone Alexander Adams MD Primary Care Provider [phone] Encounter Details Date Type Department Care Team (Late st Contact Info) Description 06/08/2013 External Results Cardiology at [address] [address] Neva Pugh MD [address] [place] [address] Social History Tobacco Use Types Packs/Day Years [...] AM EDT Hospital Encounter Non-[place] [address] Arrived 09/24/2024 4:00 PM EDT Office Visit Cardiology at [address] [phone] Nathaniel Keita MD [facility] [address] 11/28/2024 10:30 AM EDT Office Visit Cardiology at [address] [place] [address] Ruben Hartman PA [facility] [place] [address] documented as of this encounter Procedures Procedure Name Priority Date/Time Associated Diagnosis Comments EP DEVICE SCAN Routine 04/17/2013 documented in this encounter Results * Scan Doc: EP Device (04/17/2013) Anatomical Region Laterality Modality Other Neva Pugh MD MEDIA MGR SCAN EXT O RDR/RSLT documented in this encounter Visit Diagnoses Not on filedocumented in this encounter Care Teams Youth Probation Officer Relationship Specialty Start Date End Date Alexander Adams MD [address] [place] [address] PCP - General 04/06/12 07/26/23 documented as of this encounter
--- OUTSIDE RECORDS SUMMARY | 2024-05-03 21:58 | XMS_ITS | Encounter Summary ---
[place] [address] Care Team Providers Care Coin Rolling Machine Operator Name Role Phone Alexadner Adams MD Primary Care Provider [phone] Reason for Visit * Reason Onset Date Comments Medication Refill 08/08/2014 Encounter Details Date Type Department Care Team (Late st Contact Info) Description 08/08/2014 Ref[place] [phone] Elisha Nichols MD Social History Tobacco Use [...] Hospital Encounter Non-[place] [address] Arrived 09/24/2024 4:00 PM EDT Office Visit Cardiology at [address] [phone] Nathaniel Keita MD [facility] [place] [address] 11/28/2024 10:30 AM EDT Office Visit Cardiology at [address] [place] [address] Ruben Hartman, LAURA [facility] [place] [place] [address] documented as of this encounter Visit Diagnoses Not on filedocumented in this encounter Care Teams Coin Rolling Machine Operator Relationship Specialty Start Date End Date Alexander Adams MD [address] [place] [address] PCP - General 04/06/12 07/26/23 documented as of this encounter
--- OUTSIDE RECORDS SUMMARY | 2024-05-03 21:58 | XMS_ITS | Encounter Summary ---
[place] [address] Care Team Providers Care Ell Teacher Name Role Phone Alexander Adams MD Primary Care Provider [phone] Reason for Visit * Reason Comments PDR 14 months FU PDR OU post PRP OU. Encounter Details Date Type Department Care Team (Late st Contact Info) Description 03/21/2013 3:30 PM EST [place] [phone] Melissa Cleary MD PDR (proliferative diabetic retinopathy) [...] AM EDT Hospital Encounter Non[place] [address] Arrived 09/24/2024 4:00 PM EDT Office Visit Cardiology at [address] [phone] Nathaniel Keita MD [facility] [place] [address] 11/28/2024 10:30 AM EDT Office Visit Cardiology at [address] [address] Ruben Hartman, LAURA [facility] [place] [address] documented as of this encounter Visit Diagnoses Diagnosis PDR (proliferative diabetic retinopathy)- Primary Type II or unspecified type diabetes mellitus with ophthalmic manifestations, not stated as uncontrolled documented in this encounter Care Teams Ell Teacher Relationship Specialty Start Date End Date Alexander Adams MD [address] [place] [address] PCP - General 04/06/12 07/26/23 documented as of this encounter
--- OUTSIDE RECORDS SUMMARY | 2024-05-03 21:58 | XMS_ITS | Encounter Summary ---
Author Organization [facility] [place] [address] Care Team Providers Care Calciner Operator Name Role Phone Alexander Adams MD Primary Care Provider [phone] Encounter Details Date Type Department Care Team (Late st Contact Info) Description 08/13/2014 Orders Only Cardiology at [address] [address] Social History Tobacco Use Types Packs/Day Years [...] AM EDT Hospital Encounter Non-[place] [address] Arrived 09/24/2024 4:00 PM EDT Office Visit Cardiology at [address] [phone] Nathaniel Keita MD [facility] [place] [address] 11/28/2024 10:30 AM EDT Office Visit Cardiology at [address] [place] [address] Ruben Hartman, LAURA [facility] [place] [place] [address] documented as of this encounter Procedures Procedure Name Priority Date/Time Associated Diagnosis Comments CARDIAC DEVICE CHECK - REMOTE Routine 08/13/2014 7:35 AM EDT documented in this encounter Results * (ABNORMAL) Cardiac device check - Remote (08/13/2014 7:35 AM EDT) Date Time Interrogation Session [id number] [employer] Implantable Pulse Generator Veterinary Technologist [employer] IDCO Implantable Pulse Generator Model John II VR [id number] [employer] Implantable Pulse Generator Serial Number [id number] [employer] Type Interrogation Session Remote IDCO Implantable [...] ms IDCO Battery Date Time of Measurements [id number] [employer] Battery Status OK [employer] Battery AGRICULTURAL SYSTEMS SPECIALIST Trigger 2.6251 [employer] Battery Voltage 3.06 V IDCO Capacitor Charge Type Reformation IDCO Capacitor Last Charge Date Time [id number] IDCO Capacitor Charge Time 8.908 s IDCO Capacitor Charge Energy 35 J IDCO Episode Identifier 104 IDCO Episode Date Time [id number] IDCO Episode Duration 6 s IDCO Episode Identifier 103 IDCO Episode Date Time [id number] IDCO Episode Duration 2 s IDCO Episode Identifier 102 IDCO Episode Date Time [id number] IDCO Episode Duration 1 s IDCO Episode Identifier 101 IDCO Episode Date Time [id number] IDCO Episode Duration 0 s IDCO Episode Identifier 100 IDCO Episode Date Time [id number] IDCO Episode Duration 1 s IDCO Episode Identifier 99 IDCO Episode Date Time [id number] IDCO Episode Duration 1 s IDCO Episode Identifier 98 IDCO Episode Date Time [id number] IDCO Episode Duration 2 s IDCO Episode Identifier 97 IDCO Episode Date Time [id number] IDCO Episode Duration 1 s IDCO Episode Identifier 96 IDCO Episode Date Time [id number] IDCO Episode Duration 3 s IDCO Episode Identifier 95 IDCO Episode Date Time [id number] IDCO Episode Duration 6 s IDCO Episode Identifier 94 IDCO Episode Date Time [id number] IDCO Episode Duration 3 s IDCO Episode Identifier 93 IDCO Episode Date Time [id number] IDCO Episode Duration 2 s IDCO Episode Identifier 92 IDCO Episode Date Time [id number] IDCO Episode Duration 3 s IDCO Episode Identifier 91 IDCO Episode Date Time [id number] IDCO Episode Duration 2 s IDCO Episode Identifier 90 IDCO Episode Date Time [id number] IDCO Episode Duration 1 s IDCO Marcel Statistic Date Time Start [id number] IDCO Marcel Statistic Date Time End [id number] IDCO Marcel Statistic RV Percent Paced 0.00 % IDCO Therapy Statistic Recent Shocks Delivered 0 IDCO Therapy Statistic Recent Shocks Aborted 0 IDCO Therapy Statistic Recent ATP Delivered 0 IDCO Therapy Statistic Recent Date Time Start [id number] IDCO Therapy Statistic Recent Date Time End [id number] IDCO Therapy Statistic Total Shocks Delivered 0 IDCO Therapy Statistic Total Shocks Aborted 0 IDCO Therapy Statistic Total ATP Delivered 0 IDCO Therapy Statistic Total Date Time Start [id number] IDCO Therapy Statistic Total Date Time End [id number] IDCO Episode Statistic Recent Count 0 IDCO Episode Statistic Type Category VF IDCO Episode Statistic Recent Count 0 IDCO Episode Statistic Type Category [place] IDCO Episode Statistic Recent Count 0 IDCO Episode Statistic Recent Count 0 IDCO Episode Statistic Recent Count 13 IDCO Episode Statistic Recent Count 0 IDCO Episode Statistic Type Category SVT IDCO Episode Statistic Recent Date Time Start [id number] IDCO Episode Statistic Recent Date Time End [id number] IDCO Episode Statistic Recent Date Time Start 22692155211044 IDCO Episode Statistic Recent Date Time End [id number] IDCO Episode Statistic Recent Date Time Start 37951384045675 IDCO Episode Statistic Recent Date Time End 72901883294349 IDCO Episode Statistic Recent Date Time Start 14184506899641 IDCO Episode Statistic Recent Date Time End 29661608490593 IDCO Episode Statistic Recent Date Time Start 36213098743667 IDCO Episode Statistic Recent Date Time End 86841844384670 IDCO Episode Statistic Recent Date Time Start 44873556129622 IDCO Episode Statistic Recent Date Time End 35620492787689 IDCO Episode Statistic Total Count 0 IDCO Episode Statistic Type Category VF IDCO Episode Statistic Total Count 0 IDCO Episode Statistic Type Category [place] IDCO Episode Statistic Total Count 0 IDCO Episode Statistic Total Count 0 IDCO Episode Statistic Total Count 104 IDCO Episode Statistic Total Count 0 IDCO Episode Statistic Type Category SVT IDCO Episode Statistic Total Date Time Start [id number] IDCO Episode Statistic Total Date Time End [id number] IDCO Episode Statistic Total Date Time Start 56658709454475 IDCO Episode Statistic Total Date Time End 91521403911594 IDCO Episode Statistic Total Date Time Start 10760472491987 IDCO Episode Statistic Total Date Time End 07893949923356 IDCO Episode Statistic Total Date Time Start 16649442506257 IDCO Episode Statistic Total Date Time End 12065442158994 IDCO Episode Statistic Total Date Time Start 64581880139008 IDCO Episode Statistic Total Date Time End 85493479065263 IDCO Episode Statistic Total Date Time Start 92902396322272 IDCO Episode Statistic Total Date Time End 92849923088147 IDCO Anatomical Region Laterality Modality Other 08/13/2014 7:35 AM EDT Physician Cardiology IMPLANTABLE CARD IAC DEVICE documented in this encounter Visit Diagnoses Not on filedocumented in this encounter Care Teams Calciner Operator Relationship Specialty Start Date End Date Alexander Adams MD [address] [place] [address] PCP - General 04/06/12 07/26/23 documented as of this encounter
--- OUTSIDE RECORDS SUMMARY | 2024-05-03 21:58 | XMS_ITS | Encounter Summary ---
Author Organization Formerly [facility] [place] [address] Care Team Providers Care Hand Packager Name Role Phone Alexander Adams MD Primary Care Provider [phone] Reason for Visit * Reason Comments Blurred Vision DOC visit, 2 day h/o foggy vision OS Encounter Details Date Type Department Care Team (Latest Contact Info) Description 07/31/2014 3:15 PM EDT Office [place] [address] Celena Briceño MD [facility] [place] [address] Diabetic retinopathy of left eye, due to [...] leaving in 2 days for 2weeks to [place]. Patient to seek local care if sudden change in vision. Celena Briceño MD documented in this encounter Plan of Treatment Upcoming Encounters Date Type Department Care Team (Late st Contact Info) Description 07/25/2024 10:00 AM EDT Hospital Encounter Non-Invasive [place] [address] Arrived 09/24/2024 4:00 PM EDT Office Visit Cardiology at [address] [phone] Nathaniel Keita MD [facility] [place] [address] 11/28/2024 10:30 AM EDT Office Visit Cardiology at [address] [phone] Ruben Hartman PA [facility] [place] [address] documented as of this encounter Procedures Procedure Name Priority Date/Time Associated Diagnosis Comments OCT RETINA - OS - LEFT EYE Routine 07/31/2014 5:43 PM EDT Diabetic retinopathy of left eye, due to underlying condition, without macular edema, with proliferative retinopathy Vitreous hemorrhage of left eye Posterior vitreous detachment of left eye documented in this encounter Results * OCT [id number] EYE (07/31/2014 5:43 PM EDT) Anatomical Region [...] degeneration documented in this encounter Care Teams Hand Packager Relationship Specialty Start Date End Date Alexander Adams MD [address] [place] [address] PCP - General 04/06/12 07/26/23 documented as of this encounter
--- OUTSIDE RECORDS SUMMARY | 2024-05-03 21:58 | XMS_ITS | Encounter Summary ---
[place] [address] Care Team Providers Care Petroleum Sampler Name Role Phone Alexander Adams MD Primary Care Provider [phone] Reason for Visit * Reason Comments Diabetes Encounter Details Date Type Department Care Team (Late st Contact Info) Description 11/13/2013 9:30 AM EDT Office [place] [phone] Jaylin Salcido APRN DM (diabetes mellitus) (Primary [...] since she had spinal fusion done [facility] . She states she is walking every morning and has very Little back pain now. DIABETES REGIMEN: MiniMed insulin pump. Basal rates 12 a.m. 1.1, 4 a.m. 1.15, 7 a.m. 1.3, 12 noon 1.2, 5 p.m. 1.2, and 10 p.m. 1.1. Total basal 28.55. Jkpzvxd-tp-unty 1 to 15. Correction factor 25. Target glucose 95 to 125. COMPLICATIONS: Retinopathy treated in the past, neuropathy, and Charcot foot changes. PAST MEDICAL HISTORY: Significant for bypass, had ICD placed, history of cardiac arrest. REVIEW OF SYSTEMS: Depression and Mood: At home is her supportive . He walks with her in the mornings. 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 Eyes: No recent vision changes. No recent headaches or chest pain or shortness of breath. No recent GI symptoms. Appetite is good. Sleep pattern is better since surgery. Extremities: Has no feeling in her feet. Has podiatry care with Dr. King in [place]. DATE OF DIAGNOSIS OF DIABETES: 1962. PHYSICAL [...] office visit with 34 minutes spent counseling [id number]-[id number] with the patient in the management of [...] AM EDT Hospital Encounter Non-[place] [address] Arrived 09/24/2024 4:00 PM EDT Office Visit Cardiology at [address] [phone] Nathaniel Keita MD [facility] [place] [address] 11/28/2024 10:30 AM EDT Office Visit Cardiology at [address] [phone] Ruben Hartman, PA [facility] [place] [address] documented as of this encounter Results * [...] In Lab Chris Chatman MD URINE ORDERABLES [facility] * LDL Cholesterol, Direct (02/14/2014 9:38 AM EST) LDL Cholesterol, Direct 89 <=99 mg/dL [facility] Comment: The National Cholesterol Education Program (NCEP) has set the following guidelines for LDL Cholesterol: Reference range: ?? Optimal: ?<100 mg/dL ?? Near Optimal/Above Optimal: ?? 100-129 mg/dL ?? Borderline high: ?130-159 mg/dL ?? High: ? 160-189 mg/dL ?? Very high: ?>uy=704 mg/dL REJI 2001: 285(19):0883-6884 Blood specimen (specimen) 02/14/2014 9:38 AM EST 02/14/2014 9:51 AM EST Narrative Resulting Agency Comment Spec In Lab Chris Chatman MD CHEMISTRY ORDERABLES Performing Organization Address [facility] Co de Phone Number THOMPSON TENA * (ABNORMAL) HDL/Cholesterol Profile (02/14/2014 9:38 AM [...] mg/dL ??Desirable: > 60 mg/dL REJI 2001; 285(19):5241-0977 Cholesterol/HDL Ratio 3.7 ratio CERNER MILLENNIUM Comment: [...] Chatman MD CHEMISTRY ORDERABLES Performing Organization Address [facility]/ZIP Co de Phone Number [facility] TE[facility] * (ABNORMAL) Hemoglobin A1c (02/14/2014 9:38 AM EST) Hemoglobin A1c 8.6(H) <=5.6 % JOSE R MILLENNIUM Comment: Reference Range: 4.3 - [...] Mellitus, Diabetes Care 2013; 36: Suppl. 1, T67-58 Estimated Average Glucose 200 mg/dL [facility] Comment: eAG equivalents for HbA1c percentages: HbA1c(%) ?eAG(mg/dL) 6.0 ?126 6.5 ?140 7.0 ?154 7.5 ?169 8.0 ?183 8.5 ?197 9.0 ?212 9.5 ?226 10.0 ? 240 Limitations: The eAG calculation has not been validated on women, individuals below 18 years old and above 70 years old, and individuals with hemoglobinopathies. Additional resources are available on the ADA website: http://Sorbent Green.com/DHMCadacalc Alfred JEFFRIES, Risa J, Sergio R, et al. ??Translating the A1C assay into estimated average glucose values. ??Diabetes Care 2008:31(8):1400-0847. Blood specimen (specimen) 02/14/2014 9:38 AM EST 02/14/2014 9:51 AM EST Narrative Resulting Agency Comment Spec In Lab Chris Chatman MD CHEMISTRY ORDERABLES [facility] * (ABNORMAL) Comprehensive metabolic panel (non-fasting) (02/14/2014 9:38 AM EST) [facility] Signature Glucose 183 60 - 199 mg/dL CERNER MILLENNIUM Comment:Diabetes: >=200 mg/d L plus symptoms Blood Urea Nitrogen 22(H) 8 - 18 mg/dL CERNER MILLENNIUM Creatinine 1.05 0.70 - 1.20 mg/dL CERNER MILLENNIUM Comment: Please note that the pediatric reference intervals supplied above were not validated at [facility]. Results from pediatric patients should be interpreted [...] the following links into your internet browser. [email or web address] [email or web address] [email or web address] Blood specimen (specimen) 02/14/2014 9:38 AM EST 02/14/2014 9:51 AM EST Narrative Resulting Agency Comment Spec In Lab Chris Chatman MD CHEMISTRY ORDERABLES Performing Organization Address City/State/[facility] Phone Number [facility] documented in this encounter Visit Diagnoses Diagnosis DM (diabetes mellitus)- Primary Type II or unspecified type diabetes mellitus without mention of complication, not stated as uncontrolled Type I (juvenile type) diabetes mellitus with neurological manifestations, not stated as uncontrolled(250.61) Type I (juvenile type) diabetes mellitus with neurological manifestations, not stated as uncontrolled documented in this encounter Care Teams Petroleum Sampler Relationship Specialty Start Date End Date Alexander Adams MD [address] [place] [address] PCP - General 04/06/12 07/26/23 documented as of this encounter
--- OUTSIDE RECORDS SUMMARY | 2024-05-03 21:58 | XMS_ITS | Encounter Summary ---
[place] [address] Care Team Providers Care Professor Of Art Name Role Phone Alexander Adams MD Primary Care Provider [phone] Reason for Visit * Reason Comments PDR 14 month F/U for PDR OU post PRP OU Encounter Details Date Type Department Care Team (Late st Contact Info) Description 05/29/2014 1:15 PM EST Follow-[place] [address] Melissa Cleary MD Diabetic retinopathy of left [...] AM EDT Hospital Encounter Non-[place] [address] Arrived 09/24/2024 4:00 PM EDT Office Visit Cardiology at [address] [phone] Nathaniel Keita MD [facility] [place] [address] 11/28/2024 10:30 AM EDT Office Visit Cardiology at [address] [phone] Ruben Hartman PA [facility] [place] [address] documented as of this encounter Visit Diagnoses Diagnosis Diabetic retinopathy of left eye, due to underlying condition, without macular edema, with proliferative retinopathy documented in this encounter Care Teams Professor Of Art Relationship Specialty Start Date End Date Alexander Adams MD [address] [place] [address] PCP - General 04/06/12 07/26/23 documented as of this encounter
--- OUTSIDE RECORDS SUMMARY | 2024-05-03 21:58 | XMS_ITS | Encounter Summary ---
Author Organization [facility] [place] [address] Care Team Providers Care Charge Entry Clerk Name Role Phone Alexander Adams MD Primary Care Provider [phone] Encounter Details Date Type Department Care Team (Latest Contact Info) Description 11/13/2013 9:23 AM EDT - 11/13/2013 11:59 PM EDT Hospital Encounter [place] [address] Elisha Nichols MD Type 1 diabetes mellitus [...] mg by mouth daily. 07/27/2023 [facility] Fax form to [facility] Diabetes INSULIN PUMP SUPPLIES 100 [...] ULTRA 2) monitoring kit 1 each by [facility].(Non-Drug; Combo Route) route as needed for Other. Test BG 5-6 times daily. Diagnosis code 250.63 1 each 0 03/12/2013 03/31/2017 Lancets (ONE TOUCH ULTRASOFT LANCETS) [facility] 1 each by [facility].(Non-Drug; Combo Route) route 6 times daily. Diag [...] 40 mg by mouth daily. 11/28/2014 Insulin [place], Disposable, (BD INSULIN PEN NEEDLE UF SHORT) 31 X 08/17 Ndle by [facility].(Non-Drug; Combo Route) route. 03/31/2017 SUBCUTANEOUS INSULIN PUMP (INSULIN PUMP [id number] [facility]) by [facility].(Non-Drug; Combo Route) route. 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 5.6% 5.7 [...] Mellitus, Diabetes Care 2013; 36: Suppl. 1, D89-30 Estimated Average Glucose 177 mg/dL [facility] Comment: eAG equivalents for HbA1c percentages: HbA1c(%) ?eAG(mg/dL) 6.0 ?126 6.5 ?140 7.0 ?154 7.5 ?169 8.0 ?183 8.5 ?197 9.0 ?212 9.5 ?226 10.0 ? 240 Limitations: The eAG calculation has not been validated on women, individuals below 18 years old and above 70 years old, and individuals with hemoglobinopathies. Additional resources are available on the ADA website: http://American Board of Addiction Medicine (ABAM).com/DHMCadacalc Alfred JEFFRIES, Risa J, Sergio R, et al. ??Translating the A1C assay into estimated average glucose values. ??Diabetes Care 2008:31(8):5341-3590. 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
--- OUTSIDE RECORDS SUMMARY | 2024-05-03 21:58 | XMS_ITS | Encounter Summary ---
Author Organization [facility] [place] [address] Care Team Providers Care Landscape Crew Member Name Role Phone Alexander Adams MD Primary Care Provider [phone] Encounter Details Date Type Department Care Team (Latest Contact Info) Description 08/08/2013 9:38 AM EDT - 08/08/2013 11:59 PM EDT Hospital [place] [phone] Chris Chatman MD [facility] [place] [address] Type I (juvenile type) diabetes mellitus with [...] mg by mouth daily. 07/27/2023 Diabetic Supplies, [employer] [place] [place] Fax form to [facility] Diabetes INSULIN PUMP SUPPLIES [...] ULTRA 2) monitoring kit 1 each by [facility] [place] [place].(Non-Drug; Combo Route) route as needed for Other. Test BG 5-6 times daily. Diagnosis code 250.63 1 each 0 03/12/2013 03/31/2017 Lancets (ONE TOUCH ULTRASOFT LANCETS) [facility] [place] [place] 1 each by [facility] [place] [place].(Non-Drug; Combo Route) route 6 times daily. Diag [...] 40 mg by mouth daily. 11/28/2014 Insulin [place], Disposable, (BD INSULIN PEN NEEDLE UF SHORT) 31 X 5/16 Ndle by [facility] [place] [place].(Non-Drug; Combo Route) route. 03/31/2017 SUBCUTANEOUS INSULIN PUMP (INSULIN PUMP [id number] [facility]) by [facility] [place] [place].(Non-Drug; Combo Route) route. 03/31/2017 acetaminophen (TYLENOL) 325 [...] AM EDT Hospital Encounter [place] [address] Arrived 09/24/2024 4:00 PM EDT Office Visit Cardiology at [address] [phone] Nathaniel Keita MD [facility] [place] [address] 11/28/2024 10:30 AM EDT Office Visit Cardiology at [address] [phone] Ruben Hartman PA [facility] [place] [address] documented as of this encounter Procedures Procedure [...] 1, S67-74 Estimated Average Glucose 206 mg/dL [facility] Comment: eAG equivalents for HbA1c [...] into estimated average glucose values. ??Diabetes Care 2008:31(8):2631-8366. Blood specimen (specimen) 08/08/2013 9:44 AM EDT 08/08/2013 9:52 AM EDT Narrative Resulting Agency Comment Spec In Lab Chris Chatman MD CHEMISTRY ORDERABLES [facility] documented in this encounter Visit Diagnoses Diagnosis Type I (juvenile type) diabetes mellitus with neurological manifestations, uncontrolled(250.63) Type I (juvenile type) diabetes mellitus with neurological manifestations, uncontrolled documented in this encounter Care Teams Landscape Crew Member Relationship Specialty Start Date End Date Alexander Adams MD [address] [place] [address] PCP - General 04/06/12 07/26/23 documented as of this encounter
--- OUTSIDE RECORDS SUMMARY | 2024-05-03 21:58 | XMS_ITS | Encounter Summary ---
[place] [address] Care Team Providers Care Multimedia Designer Name Role Phone Alexander Adams MD Primary Care Provider [phone] Reason for Visit * Reason Comments Diabetes Encounter Details Date Type Department Care Team (Late st Contact Info) Description 02/14/2014 9:30 AM EST Office [place] [phone] Jaylin Salcido APRN Type I (juvenile type) [...] has extensive cardiac history. Followed closely by balloon sander. History of cardiac arrest in 2009. Prevention strategies are up-to-date. She plans to get a flu vaccine tomorrow at PCP office. REVIEW OF SYSTEMS: Depression and Mood: Overall, is doing very well. 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 Eyes: No recent [...] has podiatry care with Dr. King in [place]. Hemoglobin A1c 8.6%, previous was 7.8%. IMPRESSION [...] Hospital Encounter Non-[place] [address] Arrived 09/24/2024 4:00 PM EDT Office Visit Cardiology at [address] [phone] Nathaniel Keita MD [facility] [place] [address] 11/28/2024 10:30 AM EDT Office Visit Cardiology at [address] [phone] Ruben Hartman PA [facility] [place] [address] documented as of this encounter Procedures Procedure [...] Stimulating Hormone 0.66 0.27 - 4.20 mcIU/mL [facility] Blood specimen (specimen) 08/15/2014 12:55 PM EDT 08/15/2014 1:04 PM EDT Narrative Resulting Agency Comment Spec In Lab Chris Chatman MD CHEMISTRY ORDERABLES [facility] * (ABNORMAL) Hemoglobin A1c (08/15/2014 12:55 PM EDT) Hemoglobin A1c 7.6(H) 4.3 - 5.6 % [facility] Comment: Reference Range: 4.3 - [...] Mellitus, Diabetes Care 2013; 36: Suppl. 1, P07-61 Estimated Average Glucose 171 mg/dL [facility] [...] resources are available on the ADA website: http://PrivacyCentral.[email or web address]/DHMCadacalc Alfred JEFFRIES, Risa J, Sergio R, et al. ??Translating the A1C assay into estimated average glucose values. ??Diabetes Care 2008:31(8):2410-8812. Blood specimen (specimen) 08/15/2014 12:55 PM EDT 08/15/2014 1:04 PM EDT Narrative Resulting Agency Comment Spec In Lab Chris Chatman MD CHEMISTRY ORDERABLES [facility] * Microalbumin, urine, random (02/14/2014 9:44 AM EST) Creatinine, Urine 196 mg/dL BECKY NORTON MILLENNIUM Albumin, Urine 20.3 mg/L JOSE Connor MILLENNIUM Albumin / Creatinin Ratio, Urine 10 mcg/mg Cr [facility]OMPSON MILL[facility]UM Comment: Reference Range* Random collection (mcg/mg creatinine) Normal ?<30 Microalbuminuria ?? 30 - 300 Clinical Albuminuria ?? >300 *German Diabetes Association. Diabetic Nephropathy. Diabetes Care 1997;(Suppl 1):S24-S27 Exercise within 24 hour, infection, fever, CHF, marked hyperglycemia, and marked hypertension may elevate urinary albumin excretion over baseline values. Urine specimen (specimen) 02/14/2014 9:44 AM EST 02/14/2014 9:51 AM EST Narrative Resulting Agency Comment Spec In Lab Chris Chatman MD URINE ORDERABLES Performing Organization Address [facility] de Phone Number [facility] * LDL Cholesterol, Direct (02/14/2014 9:38 AM EST) LDL Cholesterol, Direct 89 <=99 mg/dL [facility] Comment: The National Cholesterol Education Program (NCEP) has set the following guidelines for LDL Cholesterol: Reference range: ?? Optimal: ?<100 mg/dL ?? Near Optimal/Above Optimal: ?? 100-129 mg/dL ?? Borderline high: ?130-159 mg/dL ?? High: ? 160-189 mg/dL ?? Very high: ?>dp=756 mg/dL REJI 2001: 285(19):3916-9591 Blood specimen (specimen) 02/14/2014 9:38 AM EST 02/14/2014 9:51 AM EST Narrative Resulting Agency Comment Spec In Lab Chris Chatman MD CHEMISTRY ORDERABLES Performing Organization Address [facility] de Phone Number [facility] * (ABNORMAL) HDL/Cholesterol Profile (02/14/2014 9:38 AM EST) Cholesterol, Total 146 <=199 mg/dL [facility] Comment: Recommendations of the NCEP Adult Treatment Panel for the following risk cutoff thresholds for the [place] population: Desirable: <200 mg/dL Borderline High: 200-239 mg/dL High: > or = 240 mg/dL HDL Cholesterol 39(L) >=40 mg/dL [facility] Comment: Reference range: ??Low HDL: ?? < 40 mg/dL ??Normal: ?40-60 mg/dL ??Desirable: > 60 mg/dL REJI 2001; 285(19):7649-1504 Cholesterol/HDL Ratio 3.7 ratio [facility] Comment: A Cholesterol to HDL ratio below 4:1 is desirable. ??Studies suggest that increased CAD risk occurs at ratios above 5 for females and above 6 for men. ? [place] Heart Association ??(http://www.americanheart.org) ? Aurelia Int Med, 1994; 121:641 ? AM J Med, 1998; 105(1A):48S Blood specimen (specimen) 02/14/2014 9:38 AM EST 02/14/2014 9:51 AM EST Narrative Resulting Agency Comment Spec In Lab Chris Chatman MD CHEMISTRY ORDERABLES [facility] * (ABNORMAL) Hemoglobin A1c (02/14/2014 9:38 AM [...] S67-74 Estimated Average Glucose 200 mg/dL [facility] Comment: eAG equivalents for HbA1c percentages: HbA1c(%) ?eAG(mg/dL) 6.0 ?126 6.5 ?140 7.0 ?154 7.5 ?169 8.0 ?183 8.5 ?197 9.0 ?212 9.5 ?226 10.0 ? 240 Limitations: The eAG calculation has not been validated on women, individuals below 18 years old and above 70 years old, and individuals with hemoglobinopathies. Additional resources are available on the [employer] website: [email or web address]/[email or web address] Alfred JEFFRIES, Risa J, Sergio R, et al. ??Translating the A1C assay into estimated average glucose values. ??Diabetes Care 2008:31(8):7976-5678. Blood specimen (specimen) 02/14/2014 9:38 AM EST 02/14/2014 9:51 AM EST Narrative Resulting Agency Comment Spec In Lab Chris Chatman MD CHEMISTRY ORDERABLES [facility] * (ABNORMAL) Comprehensive metabolic panel (non-fasting) (02/14/2014 9:38 AM EST) Glucose 183 60 - 199 mg/dL [facility] Comment:Diabetes: >=200 mg/d L plus symptoms Blood Urea Nitrogen 22(H) 8 - 18 mg/dL [facility] MILLENNIUM Creatinine 1.05 0.70 - 1.20 mg/dL CERNER MILLENNIUM Comment: Please note that the pediatric reference intervals supplied above were not validated at [facility]. Results from pediatric patients should be interpreted [...] the following links into your internet browser. [email or web address] [email or web address] [email or web address] Blood specimen (specimen) 02/14/2014 9:38 AM EST [...] uncontrolled documented in this encounter Care Teams Multimedia Designer Relationship Specialty Start Date End Date Alexander Adams MD [address] [place] [address] PCP - General 04/06/12 07/26/23 documented as of this encounter
--- OUTSIDE RECORDS SUMMARY | 2024-05-03 21:58 | XMS_ITS | Encounter Summary ---
Author Organization [facility] [place] [address] Care Team Providers Care Tack Coverer Name Role Phone Alexander Adams MD Primary Care Provider [phone] Encounter Details Date Type Department Care Team (Late st Contact Info) Description 09/17/2013 Interpretation Only Radiology [address] [place] [address] [place] [address] Unknown None Social History Tobacco Use Types [...] AM EDT Hospital Encounter Non-[place] [address] Arrived 09/24/2024 4:00 PM EDT Office Visit Cardiology at [address] [address] Nathaniel Keita MD [facility] [place] [address] 11/28/2024 10:30 AM EDT Office Visit Cardiology at [address] [place] [address] Ruben Hartman [place] [address] documented as of this encounter Procedures Procedure Name Priority Date/Time Associated Diagnosis Comments XR FLUORO NO RAD <1HR - RADIOLOGY USE Routine 09/17/2013 6:34 AM EDT documented in this encounter Results * XR Fluoro <1Hr - Radiology Use (09/17/2013 6:34 AM EDT) Anatomical Region Laterality Modality N/A Radiographic Bushra ging 09/17/2013 6:34 AM EDT Narrative 09/17/2013 6:34 AM EDT APD Historical Result Principal Clinical Research Specialist: ??DEEPTI ??JEANMARIE C-ARM: HISTORY: ??Left L4-5 posterior [...] separate procedure report. Deepti Hoover MD Melanie [id number] CC: Procedure Note Unknown - 10/02/2018 APD Historical Result Principal Clinical Research Specialist: DEEPTI HOOVER C-ARM: HISTORY: Left L4-5 posterior [...] refer to separate procedurereport. Deepti Hoover MD Melanie [id number] CC: Unknown IMG FLUORO ORDERABLE S documented in this encounter Visit Diagnoses Not on filedocumented in this encounter Care Teams Tack Coverer Relationship Specialty Start Date End Date Alexander Adams MD [address] [place] [address] PCP - General 04/06/12 07/26/23 documented as of this encounter
--- OUTSIDE RECORDS SUMMARY | 2024-05-03 21:58 | XMS_ITS | Encounter Summary ---
[place] [address] Care Team Providers Care Route Rider Name Role Phone Alexander Adams MD Primary Care Provider [phone] Encounter Details Date Type Department Care Team (Late st Contact Info) Description 06/06/2013 Notes [place] [address] Ruthy Moody LPN Social History Tobacco Use [...] AM EDT Hospital Encounter Non-Invasive Cardiology Lab [facility] [place] [address] Arrived 09/24/2024 4:00 PM EDT Office Visit Cardiology at [address] [phone] Nathaniel Keita MD [facility] [place] [address] 11/28/2024 10:30 AM EDT Office Visit Cardiology at [address] [phone] Ruben Hartman PA [facility] [place] [address] documented as of this encounter Visit Diagnoses Not on filedocumented in this encounter Care Teams Route Rider Relationship Specialty Start Date End Date Alexander Adams MD [address] [place] [address] PCP - General 04/06/12 07/26/23 documented as of this encounter
--- OUTSIDE RECORDS SUMMARY | 2024-05-03 21:58 | XMS_ITS | Encounter Summary ---
Author Organization [facility] [place] [address] Care Team Providers Care Chemical Radiation Technician Name Role Phone Alexander Adams MD Primary Care Provider [phone] Reason for Visit * Reason Comments Cardiomyopathy ICD check Follow-up Encounter Details Date Type Department Care Team (Late st Contact Info) Description 05/16/2014 9:00 AM EST Office Visit Cardiology at [address] [phone] Kellie Geronimo RN Ventricular fibrillation- with Medtronic ICD implanted [...] in SLS study. PCP: ALEXANDER ADAMS MD Cigarette Machine Operator: Milind Beasley MD Device and lead information Final Parameters: Ventricular lead: Medtronic Sprint Quattro Model# 6947-58 cm Serial #[id number] ??? Bipolar, steroid-tipped, active-fixation IS-1, DF-1 lead ??? Access: Left axillary vein ??? Location: Right ventricular apex ??? R wave, ICD: 8.0 mV ??? Pacing threshold, ICD: 1.0 V at 0.5 ms ??? Impedance, ICD: 532 ohms ??? HVB Impedance 33 ohms ??? SVC Impedance 39 ohms ??? Pace the diaphragm at 10 V: No Pulse generator: Medtronic John II VR Model# [id number] Serial# [id number] ??? Single-chamber ICD ??? Location: Subcutaneous Parameters: VF detection rate: >200 bpm VF therapy: ATP during charging, 30J, 35J x 5 FVT detection rate: via VF 250 bpm FVT therapy: Burst(1), 30J, 35J x 4 VT detection rate:182 bpm VT therapy: Burst(3), 20J, 35J x 4 Enhancement: Wavelet, VT Monitor Bradycardia pacing: VVI 40 Follow-up Battery status: 3.08 V HEEL SEAT TRIMMER: 2.63 V Charge time: 8.8 sec 01/01/2014 [...] AM EDT Hospital Encounter Non-[place] [address] Arrived 09/24/2024 4:00 PM EDT Office Visit Cardiology at [address] [address] Nathaniel Keita MD [facility] [place] [address] 11/28/2024 10:30 AM EDT Office Visit Cardiology at [address] [address] Ruben Hartman, PA [facility] [place] [address] documented as of this encounter Visit Diagnoses Diagnosis Ventricular fibrillation- with Medtronic ICD implanted 2009 Ventricular fibrillation documented in this encounter Care Teams Chemical Radiation Technician Relationship Specialty Start Date End Date Alexander Adams MD [address] [place] [address] PCP - General 04/06/12 07/26/23 documented as of this encounter
--- OUTSIDE RECORDS SUMMARY | 2024-05-03 21:58 | XMS_ITS | Encounter Summary ---
Author Organization [facility] [place] [address] Care Team Providers Care Roll Cleaner Name Role Phone Alexander Adams MD Primary Care Provider [phone] Encounter Details Date Type Department Care Team (Late st Contact Info) Description 10/22/2013 Interpretation Only Radiology [address] [place] [address] [place] [address] Unknown None Social History Tobacco Use Types [...] AM EDT Hospital Encounter Non-Invasive [place] [address] Arrived 09/24/2024 4:00 PM EDT Office Visit Cardiology at [address] [address] Nathaniel Keita MD [facility] [place] [address] 11/28/2024 10:30 AM EDT Office Visit Cardiology at [address] [place] [address] Ruben Hartman, [facility] [place] [address] documented as of this encounter Procedures Procedure [...] 1:23 PM EDT APD Historical Result Principal Gas Turbine Assembler: ??DEEPTI ??HOOVER LUMBAR SPINE - FLEXION AND [...] fusion on flexion imaging. Deepti Hoover MD [place]/mn [id number] CC: Procedure Note Unknown - 10/02/2018 APD Historical Result Principal Gas Turbine Assembler: DEEPTI HOOVER LUMBAR SPINE - FLEXION AND [...] approximately 7 mm anterolisthesis of L4 on V2tsgpm noted. The remainder of the alignment is [...] fusion on flexion imaging. Deepti Hoover MD [place]/mn [id number] CC: Unknown IMG DX ORDERABLES documented in this encounter Visit Diagnoses Not on filedocumented in this encounter Care Teams Roll Cleaner Relationship Specialty Start Date End Date Alexander Adams MD [address] [place] [address] PCP - General 04/06/12 07/26/23 documented as of this encounter
--- OUTSIDE RECORDS SUMMARY | 2024-05-03 21:58 | XMS_ITS | Encounter Summary ---
[place] [address] Care Team Providers Care Anesthesiologist Physician Name Role Phone Alexander Adams MD Primary Care Provider [phone] Reason for Visit * Reason Onset Date Comments Medication Refill 02/22/2013 Encounter Details Date Type Department Care Team (Late st Contact Info) Description 02/22/2013 Refill [place]ocr[place] [phone] Elisha Nichols MD Social History Tobacco Use [...] AM EDT Hospital Encounter Non-[place] [phone] Arrived 09/24/2024 4:00 PM EDT Office Visit Cardiology at [address] [phone] Nathaniel Keita MD [facility] [place] [address] 11/28/2024 10:30 AM EDT Office Visit Cardiology at [address] [place] [address] Ruben Hartman, [facility] [place] [address] documented as of this encounter Visit Diagnoses Not on filedocumented in this encounter Care Teams Anesthesiologist Physician Relationship Specialty Start Date End Date Alexander Adams MD [address] [place] [address] PCP - General 04/06/12 07/26/23 documented as of this encounter
--- OUTSIDE RECORDS SUMMARY | 2024-05-03 21:58 | XMS_ITS | Encounter Summary ---
[place] [address] Care Team Providers Care Supervisor Shipfitters Name Role Phone Alexander Adams MD Primary Care Provider Encounter Details Date Type Department Care Team (Late st Contact Info) Description 12/19/2013 External Results Cardiology at [address] [address] Alexander Adams MD [address] [place] [address] Social History Tobacco Use Types [...] AM EDT Hospital Encounter Non[place] [address] Arrived 09/24/2024 4:00 PM EDT Office Visit Cardiology at [address] [phone] Nathaniel Keita MD [facility] [place] [address] 11/28/2024 10:30 AM EDT Office Visit Cardiology at [address] [place] [address] Ruben Hartman PA [facility] [place] [address] documented as of this encounter Procedures Procedure Name Priority Date/Time Associated Diagnosis Comments EP DEVICE SCAN Routine 12/18/2013 documented in this encounter Results * Scan Doc: EP Device (12/18/2013) Anatomical Region Laterality Modality Other Alexander Adams MD MEDIA MGR SCAN EXT O RDR/RSLT documented in this encounter Visit Diagnoses Not on filedocumented in this encounter Care Teams Supervisor Shipfitters Relationship Specialty Start Date End Date Alexander Adams MD [address] [place] [address] PCP - General 04/06/12 07/26/23 documented as of this encounter
--- OUTSIDE RECORDS SUMMARY | 2024-05-03 21:58 | XMS_ITS | Encounter Summary ---
[place] [address] Care Team Providers Care Cancer Genetic Counselor Name Role Phone Alexander Adams MD Primary Care Provider [phone] Reason for Visit * Reason Comments Blurred Vision 2 week F/U for Possi ble Vitrous Hemorrhage OS PDR 2.5 months since las t f/u for PDR OU post PRP OU Encounter Details Date Type Department Care Team (Late st Contact Info) Description 08/13/2014 8:00 AM EDT Follow-Up [place] [address] Melissa Cleary MD Vitreous hemorrhage of left [...] AM EDT Hospital Encounter Non-[place] [address] Arrived 09/24/2024 4:00 PM EDT Office Visit Cardiology at [address] [address] Nathaniel Keita MD [facility] [place] [address] 11/28/2024 10:30 AM EDT Office Visit Cardiology at [address] [phone] Ruben Hartman, PA [facility] [place] [address] documented as of this encounter Visit Diagnoses Diagnosis Vitreous hemorrhage of left eye Vitreous hemorrhage documented in this encounter Care Teams Cancer Genetic Counselor Relationship Specialty Start Date End Date Alexander Adams MD [address] [place] [address] PCP - General 04/06/12 07/26/23 documented as of this encounter
--- OUTSIDE RECORDS SUMMARY | 2024-05-03 21:58 | XMS_ITS | Encounter Summary ---
Author Organization [facility] [place] [address] Care Team Providers Care Bolt Cutter Name Role Phone Alexander Adams MD Primary Care Provider Encounter Details Date Type Department Care Team (Late st Contact Info) Description 01/09/2014 Interpretation Only Radiology [address] [place] [address] [place] [address] Unknown None Social History Tobacco Use Types [...] AM EDT Hospital Encounter Non-[place] [address] Arrived 09/24/2024 4:00 PM EDT Office Visit Cardiology at [address] [address] Nathaniel Keita MD [facility] [place] [address] 11/28/2024 10:30 AM EDT Office Visit Cardiology at [address] [place] [address] Ruben Hartman PA [facility] [place] [address] documented as of this encounter Procedures Procedure [...] 10:07 AM EDT APD Historical Result Principal Family Life Counselor: ??ANTOINE ??CHEO LUMBAR SPINE - TWO VIEWS: [...] and neutral positioning. Antoine Holden MD OL/radha [id number] CC: Procedure Note Unknown - 10/02/2018 APD Historical Result Principal Family Life Counselor: ANTOINE HOLDEN LUMBAR SPINE - TWO VIEWS: [...] extension, andneutral positioning. Antoine Holden MD OL/radha [id number] CC: Unknown IMG DX ORDERABLES documented in this encounter Visit Diagnoses Not on filedocumented in this encounter Care Teams Bolt Cutter Relationship Specialty Start Date End Date Alexander Adams MD [address] [place] [address] PCP - General 04/06/12 07/26/23 documented as of this encounter
--- OUTSIDE RECORDS SUMMARY | 2024-05-03 21:58 | XMS_ITS | Encounter Summary ---
[place] [address] Care Team Providers Care Business Employment Specialist Name Role Phone Alexander Adams MD Primary Care Provider [phone] Reason for Visit * Reason Comments Diabetes Encounter Details Date Type Department Care Team (Late st Contact Info) Description 05/08/2013 10:00 AM EST Office Visit [place] [phone] Jaylin Salcido APRN Type I (juvenile type) [...] is doing okay. 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 Eyes: Followed closely by traffic superintendent. No recent headaches or chest pain, has an ICD. GI symptoms: States she had cold symptoms and was vomiting for a while, but now that has resolved. Sleep pattern varies depending on amount of back pain she has. Extremities: Has little feeling in her feet, followed by senior engineering team leader, Dr. King in [place]. PHYSICAL EXAMINATION: Appearance: She is overweight. Appears [...] AM EDT Hospital Encounter Non-[place] [address] Arrived 09/24/2024 4:00 PM EDT Office Visit Cardiology at [address] [place] [address] Nathaniel Keita MD [facility] [address] 11/28/2024 10:30 AM EDT Office Visit Cardiology at [address] [address] Ruben Hartman, [facility] [place] [address] documented as of this encounter Procedures Procedure [...] S67-74 Estimated Average Glucose 206 mg/dL [facility] Comment: eAG equivalents for HbA1c percentages: [...] into estimated average glucose values. ??Diabetes Care 2008:31(8):8964-0955. Blood specimen (specimen) 08/08/2013 9:44 AM EDT 08/08/2013 9:52 AM EDT Narrative Resulting Agency Comment Spec In Lab Chris Chatman MD CHEMISTRY ORDERABLES CERNER MILLENNIUM * Microalbumin, urine, random (05/08/2013 9:51 AM EST) Creatinine, Urine 134 mg/dL BECKY [place] MILLENNIUM Albumin, Urine 16.4 mg/L JOSE R MILLENNIUM Albumin / Creatinin Ratio, Urine 12 mcg/mg Cr [facility]OM[facility]ON MILLENNIUM Comment: Reference Range* Random collection (mcg/mg creatinine) Normal ?<30 Microalbuminuria ?? 30 - 300 Clinical Albuminuria ?? >300 *[place] [employer]. Diabetic Nephropathy. Diabetes Care 1997;(Suppl 1):S24-S27 Exercise within 24 hour, infection, fever, CHF, marked hyperglycemia, and marked hypertension may elevate urinary albumin excretion over baseline values. Urine specimen (specimen) 05/08/2013 9:51 AM EST 05/08/2013 10:09 AM EST Narrative Resulting Agency Comment Spec In Lab Chris Chatman MD URINE ORDERABLES [facility] TENA * TSH (05/08/2013 9:49 AM EST) Thyroid Stimulating Hormone 1.21 0.27 - 4.20 mcIU/mL [facility] Blood specimen (specimen) 05/08/2013 9:49 AM EST 05/08/2013 10:09 AM EST Narrative Resulting Agency Comment Spec In Lab Chris Chatman MD CHEMISTRY ORDERABLES [facility] TE[facility] * (ABNORMAL) Hemoglobin A1c (05/08/2013 9:49 AM EST) Hemoglobin A1c 8.2(H) <=5.6 % JO[facility] Connor [facility] Comment: As of 2013 the methodology [...] Mellitus, Diabetes Care 2013; 36: Suppl. 1, W72-03 Estimated Average Glucose 189 mg/dL [facility] Comment: eAG equivalents for HbA1c percentages: [...] into estimated average glucose values. ??Diabetes Care 2008:31(8):0144-1390. 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
--- OUTSIDE RECORDS SUMMARY | 2024-05-03 21:58 | XMS_ITS | Encounter Summary ---
[place] [address] Care Team Providers Care Tunnel Worker Name Role Phone Alexander Adams MD Primary Care Provider [phone] Reason for Visit * Reason Onset Date Comments Medication Refill 11/19/2013 Encounter Details Date Type Department Care Team (Late st Contact Info) Description 11/19/2013 Refill [place] [phone] Jaylin Sandoval APRN Social History Tobacco Use [...] per tablet [JAYLIN SANDOVAL APRN] Preferred pharmacy: [facility] - [place], [place] - [address] [facility] Comment: When I phoned for my refill today I was told that as of today this Rx. is now refillable only for 6months instead of 1 year as it used to be. Please renew this at [facility] in [place], [place] for the 60 tablets with 5 refills. Thanks so much. Katelynn Cole documented in this encounter Plan of Treatment Upcoming Encounters Date Type Department Care Team (Late st Contact Info) Description 07/25/2024 10:00 AM EDT Hospital Encounter Non-Invasive [place] [address] Arrived 09/24/2024 4:00 PM EDT Office Visit Cardiology at [address] [phone] Nathaniel Keita MD [facility] [place] [address] 11/28/2024 10:30 AM EDT Office Visit Cardiology at [address] [phone] Ruben Hartman PA [facility] [place] [address] documented as of this encounter Visit Diagnoses Not on filedocumented in this encounter Care Teams Tunnel Worker Relationship Specialty Start Date End Date Alexander Adams MD [address] [place] [address] PCP - General 04/06/12 07/26/23 documented as of this encounter
--- OUTSIDE RECORDS SUMMARY | 2024-05-03 21:58 | XMS_ITS | Encounter Summary ---
Author Organization [facility] [place] [address] Care Team Providers Care Paint Spraying Machine Operator Helper Name Role Phone Alexander Adams MD Primary Care Provider [phone] Reason for Visit * Reason Onset Date Comments Medication Refill 12/20/2013 Encounter Details Date Type Department Care Team (Late st Contact Info) Description 12/20/2013 [place] [phone] Jaylin Salcido APRN Social History Tobacco Use [...] AM EDT Hospital Encounter Non-Invasive [place] [address] Arrived 09/24/2024 4:00 PM EDT Office Visit Cardiology at [address] [phone] Nathaniel Keita MD [facility] [place] [address] 11/28/2024 10:30 AM EDT Office Visit Cardiology at [address] [place] [address] Rubne Hartman, PA [facility] [place] [address] documented as of this encounter Visit Diagnoses Not on filedocumented in this encounter Care Teams Paint Spraying Machine Operator Helper Relationship Specialty Start Date End Date Alexander Adams MD [address] [place] [address] PCP - General 04/06/12 07/26/23 documented as of this encounter
--- OUTSIDE RECORDS SUMMARY | 2024-05-03 21:59 | XMS_ITS | Encounter Summary ---
[place] [address] Care Team Providers Care Visual Manager Name Role Phone Neva Pugh MD Primary Care Provider [phone] Reason for Visit * Reason Comments Cardiac Arrest Encounter Details Date Type Department Care Team (Late st Contact Info) Description 04/29/2011 11:15 AM EST Follow-Up Cardiology at [address] [address] Lauren Cook, SANDRA Cardiac arrest - ventricular fibrillation (Primary Dx) [...] documented in this encounter Progress Notes * JoyceLauren eubanks Ann - 04/29/2011 11:34 AM EST ICD Clinic [...] Medtronic Sprint Quattro Model# 6947-58 cm Serial #[id number] Bipolar, steroid-tipped, active-fixation IS-1, DF-1 lead Access: Left axillary vein Location: Right ventricular apex R wave, ICD: 8.0 mV Pacing threshold, ICD: 1.0 V at 0.5 ms Impedance, ICD: 532 ohms HVB Impedance 33 ohms SVC Impedance 39 ohms Pace the diaphragm at 10 V: No Pulse generator: Medtronic John II VR Model# [id number] Serial# [id number] Single-chamber ICD Location: Subcutaneous Parameters: VF detection rate: >200bpm VF therapy: ATP during charging,30J,35Jx5 FVT detection rate: 200-250bpm FVT therapy: Burst(1),30J,35Jx4 VT detection rate:182-200bpm VT therapy:Burst(3),20J,35Jx4 Enhancement: Wavelet, VT Monitor Bradycardia pacing: VVI 40 Pacing percentages: VS 100% Histogram is well distributed. Underlying rhythm: SR 75bpm WA 200ms Follow-up Battery status: 3.17V KP: 2.63V [...] AM EDT Hospital Encounter Non-[place] [address] Arrived 09/24/2024 4:00 PM EDT Office Visit Cardiology at [address] [phone] Nathaniel Keita MD [facility] [place] [address] 11/28/2024 10:30 AM EDT Office Visit Cardiology at [address] [phone] Ruben Hartman PA [facility] [place] [address] documented as of this encounter Visit Diagnoses Diagnosis Cardiac arrest - ventricular fibrillation- Primary Ventricular fibrillation documented in this encounter Care Teams Visual Manager Relationship Specialty Start Date End Date Neva Pugh MD [address] [place] [address] PCP - General 02/24/10 04/05/12 documented as of this encounter
--- OUTSIDE RECORDS SUMMARY | 2024-05-03 21:59 | XMS_ITS | Encounter Summary ---
[place] [address] Care Team Providers Care Tactical Debriefer Name Role Phone Neva Pugh MD Primary Care Provider [phone] Reason for Visit * Reason Comments Diabetes Encounter Details Date Type Department Care Team (Late st Contact Info) Description 08/09/2011 12:30 PM EDT Office [place] [phone] Jaylin Salcido APRN Diabetes mellitus; Hyperlipidemia Discharge [...] is doing well. Eyes: Followed closely by asp web developer, wears glasses. No recent headaches or chest [...] for. She has an annual followup with curriculum coordinator and she plans to discuss her [...] AM EDT Hospital Encounter Non[place] [address] Arrived 09/24/2024 4:00 PM EDT Office Visit Cardiology at [address] [phone] Nathaniel Keita MD [facility] [place] [address] 11/28/2024 10:30 AM EDT Office Visit Cardiology at [address] [phone] Ruben Hartman PA [facility] [place] [address] documented as of this encounter Results * (ABNORMAL) LDL Cholesterol, Direct (12/02/2011 2:20 PM EDT) LDL Cholesterol, Direct 132(H) <=99 mg/dL [facility] Comment: The National Cholesterol Education Program (NCEP) has set the following guidelines for LDL Cholesterol: Reference range: ?? Optimal: ?<100 mg/dL ?? Near Optimal/Above Optimal: ?? 100-129 mg/dL ?? Borderline high: ?130-159 mg/dL ?? High: ? 160-189 mg/dL ?? Very high: ?>wj=665 mg/dL REJI 2001: 285(33):9905-2992 Blood specimen (specimen) 12/02/2011 2:20 PM EDT 12/02/2011 2:38 PM EDT Narrative Resulting Agency Comment Spec In Lab Chris Chatman MD CHEMISTRY ORDERABLES Performing Organization Address [facility] de Phone Number [facility] * TSH (12/02/2011 2:20 PM EDT) Thyroid Stimulating Hormone 0.78 0.27 - 4.20 mcIU/mL [facility] Blood specimen (specimen) 12/02/2011 2:20 PM EDT 12/02/2011 2:38 PM EDT Narrative Resulting Agency Comment Spec In Lab Chris Chatman MD CHEMISTRY ORDERABLES Performing Organization Address [facility] de Phone Number [facility] * (ABNORMAL) Hemoglobin A1c (12/02/2011 2:20 PM EDT) Hemoglobin A1c 8.0(H) 4.3 - 6.1 % [facility] Estimated Average Glucose 183 mg/dL [facility] Comment: eAG equivalents for HbA1c percentages: [...] into estimated average glucose values. ??Diabetes Care 2008:31(8):2846-0540. Blood specimen (specimen) 12/02/2011 2:20 PM EDT 12/02/2011 2:38 PM EDT Narrative Resulting Agency Comment Spec In Lab Chris Chatman MD CHEMISTRY ORDERABLES [facility] * (ABNORMAL) Comprehensive metabolic panel (non-fasting) (12/02/2011 2:20 PM EDT) [facility] Glucose 110 60 - 199 mg/dL [facility] Comment:Diabetes: >=200 mg/d L plus symptoms Blood Urea Nitrogen 21(H) 8 - 18 mg/dL [facility] Creatinine 1.11 0.70 - 1.20 mg/dL [facility] Comment: Please note that the pediatric reference intervals supplied above were not validated at [facility]. Results from pediatric patients should be [...] CHEMISTRY ORDERABLES Performing Organization Address City/State/ZIP Co mi Phone Number [facility] documented in this encounter Visit Diagnoses Diagnosis Diabetes mellitus Type II or unspecified type diabetes mellitus without mention of complication, not stated as uncontrolled Hyperlipidemia Other and unspecified hyperlipidemia documented in this encounter Care Teams Tactical Debriefer Relationship Specialty Start Date End Date Neva Pugh MD [address] [place] [address] PCP - General 02/24/10 04/05/12 documented as of this encounter
--- OUTSIDE RECORDS SUMMARY | 2024-05-03 21:59 | XMS_ITS | Encounter Summary ---
[place] [address] Care Team Providers Care Document Control Associate Name Role Phone Neva Pugh MD Primary Care Provider [phone] Encounter Details Date Type Department Care Team (Late st Contact Info) Description 08/05/2011 External Results [place] [address] Neva Pugh MD [address] [place] [address] Social History Tobacco Use Types Packs/Day Years [...] AM EDT Hospital Encounter Non-[place]vasive [place] [address] Arrived 09/24/2024 4:00 PM EDT Office Visit Cardiology at [address] [place] [phone] Nathaniel Keita MD [facility] [place] [address] 11/28/2024 10:30 AM EDT Office Visit Cardiology at [address] [place] [address] Ruben Hartman PA [facility] [place] [address] documented as of this encounter Procedures Procedure Name Priority Date/Time Associated Diagnosis Comments EP DEVICE SCAN Routine 07/20/2011 documented in this encounter Results * Scan Doc: EP Device (07/20/2011) Anatomical Region Laterality Modality Other Neva Pugh MD MEDIA MGR SCAN EXT O RDR/RSLT documented in this encounter Visit Diagnoses Not on filedocumented in this encounter Care Teams Document Control Associate Relationship Specialty Start Date End Date Neva Pugh MD [address] [place] [address] PCP - General 02/24/10 04/05/12 documented as of this encounter
--- OUTSIDE RECORDS SUMMARY | 2024-05-03 21:59 | XMS_ITS | Encounter Summary ---
[place] [address] Care Team Providers Care Nuclear Plant Operator Name Role Phone Neva Pugh MD Primary Care Provider [phone] Reason for Visit * Reason Onset Date Comments Medication Refill 01/20/2012 Encounter Details Date Type Department Care Team (Late st Contact Info) Description 01/20/2012 Ref[place] [phone] Elisha Nichols MD Social History Tobacco Use [...] AM EDT Hospital Encounter Non-[place] [phone] Arrived 09/24/2024 4:00 PM EDT Office Visit Cardiology at [address] [phone] Nathaniel Keita MD [facility] [place] [address] 11/28/2024 10:30 AM EDT Office Visit Cardiology at [address] [place] [address] Ruben Hartman, PA [facility] [place] [address] documented as of this encounter Visit Diagnoses Not on filedocumented in this encounter Care Teams Nuclear Plant Operator Relationship Specialty Start Date End Date Neva Pugh MD [address] [place] [address] PCP - General 02/24/10 04/05/12 documented as of this encounter
--- OUTSIDE RECORDS SUMMARY | 2024-05-03 21:59 | XMS_ITS | Encounter Summary ---
[place] [address] Care Team Providers Care Intake Counselor Name Role Phone Neva Pugh MD Primary Care Provider [phone] Reason for Visit * Reason Onset Date Comments Medication Refill 12/13/2011 Encounter Details Date Type Department Care Team (Late st Contact Info) Description 12/13/2011 Refill [place] [phone] Elisha Nichols MD Social History Tobacco Use [...] AM EDT Hospital Encounter Non-Invasive Cardiology [place] [phone] Arrived 09/24/2024 4:00 PM EDT Office Visit Cardiology at [address] [phone] Nathaniel Keita MD [facility] [place] [address] 11/28/2024 10:30 AM EDT Office Visit Cardiology at [address] [place] [address] Ruben Hartman, PA [facility] [place] [address] documented as of this encounter Visit Diagnoses Not on filedocumented in this encounter Care Teams Intake Counselor Relationship Specialty Start Date End Date Neva Pugh MD [address] [place] [address] PCP - General 02/24/10 04/05/12 documented as of this encounter
--- OUTSIDE RECORDS SUMMARY | 2024-05-03 21:59 | XMS_ITS | Encounter Summary ---
Author Organization [facility] Address [facility] [place] [address] Care Team Providers Care Fitter'S Assistant Name Role Phone Alexander Adams MD Primary Care Provider [phone] Encounter Details Date Type Department Care Team (Late st Contact Info) Description 01/11/2013 8:40 AM EDT Follow-Up Cardiology at [address] [address] Milind Quezada MD [facility] [place] [address] CHD, s/p arrest and 2v CABG in [...] were not included. Milind Quezada MD, MS, [facility] [place] [address] Cardiology Office Visit Patient Active Problem List Diagnosis Code ??? 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 Diabetes mellitus type 1 250.01 ??? GERD (gastroesophageal reflux disease) 530.81 ??? Hypertension 401.9 ??? Ventricular fibrillation- with ICD 427.41 History Ms. Cole is a patient of Dr. Alexander Adams, an supervisor reinforced steel placing in [place], [place]. Her cardiovascular history includes the following [...] angina. 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 She notices some orthostatic lightheadedness and her [...] of 152. Social History She is to [place] and lives in [place], [place]. 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 Family History [...] ALEXANDER ADAMS MD [address] / [facility] [address] documented in this encounter Plan of Treatment Upcoming Encounters Date Type Department Care Team (Late st Contact Info) Description 07/25/2024 10:00 AM EDT Hospital Encounter [facility] [place] [address] Arrived 09/24/2024 4:00 PM EDT Office Visit Cardiology at [address] [place] [phone] Nathaniel Keita MD [facility] [place] [address] 11/28/2024 10:30 AM EDT Office Visit Cardiology at [address] [place] [address] Ruben Hartman PA [facility] [place] [address] documented as of this encounter Procedures Procedure [...] (Bezet) 417 ms MUSE SYSTEM Calculated P [place] 82 degrees MUSE SYSTEM Calculated R [place] 66 degrees MUSE SYSTEM Calculated T [place] 69 degrees MUSE SYSTEM INTERPRETATION Normal sinus rhythm Low voltage QRS Borderline ECG When compared with ECG of 24-MAR-2010 07:53, No significant change was found Confirmed by MD HUI, VANESSA ([id number]) on 01/11/2013 10:28:31 AM MUSE SYSTEM 01/11/2013 8:54 AM EDT 01/11/2013 10:28 AM EDT Milind Quezada MD ECG ORDERABLES MUSE SYSTEM documented in this encounter Visit Diagnoses Diagnosis CHD, s/p arrest and 2v CABG in 2009, preserved LV function- Primary Coronary atherosclerosis of unspecified type of vessel, tetlin or graft Hypertension Unspecified essential hypertension Ventricular fibrillation- with ICD Ventricular fibrillation documented in this encounter Care Teams Fitter'S Assistant Relationship Specialty Start Date End Date Alexander Adams MD [address] [place] [address] PCP - General 04/06/12 07/26/23 documented as of this encounter
--- OUTSIDE RECORDS SUMMARY | 2024-05-03 21:59 | XMS_ITS | Encounter Summary ---
Author Organization [facility] [place] [address] Care Team Providers Care Antitank Assault Gunner Name Role Phone Alexander Adams MD Primary Care Provider [phone] Reason for Visit * Reason Comments Cardiomyopathy ICD interrogation Encounter Details Date Type Department Care Team (Late st Contact Info) Description 01/11/2013 9:15 AM EDT Follow-Up Cardiology at [address] [address] Thaddeus Cespedes RN Sangha, Rajbir S, MD [facility] [place] [address] CHD, s/p arrest and 2v CABG in [...] in SLS study. PCP: ALEXANDER ADAMS MD Reading Coach: Milind Beasley MD Device and lead information Final Parameters: Ventricular lead: Medtronic Sprint Quattro Model# 6947-58 cm Serial #[id number] Bipolar, steroid-tipped, active-fixation IS-1, DF-1 lead Access: Left axillary vein Location: Right ventricular apex R wave, ICD: 8.0 mV Pacing threshold, ICD: 1.0 V at 0.5 ms Impedance, ICD: 532 ohms HVB Impedance 33 ohms SVC Impedance 39 ohms Pace the diaphragm at 10 V: No Pulse generator: [employer] John II VR Model# [id number] Serial# [id number] Single-chamber ICD Location: Subcutaneous Parameters: VF detection rate: >200 bpm VF therapy: ATP during charging, 30J, 35J x 5 FVT detection rate: via VF 250 bpm FVT therapy: Burst(1), 30J, 35J x 4 VT detection rate:182 bpm VT therapy: Burst(3), 20J, 35J x 4 Enhancement: Wavelet, VT Monitor Bradycardia pacing: VVI 40 Follow-up Battery status: 3.10 V PRESTRESSED CONCRETE LABORER: 2.63 V Charge time: 8.6 sec 01/01/2013 [...] AM EDT Hospital Encounter Non-Invasive [place] [address] Arrived 09/24/2024 4:00 PM EDT Office Visit Cardiology at [address] [phone] Nathaniel Keita MD [facility] [place] [address] 11/28/2024 10:30 AM EDT Office Visit Cardiology at [address] [address] Ruben Hartman, LAURA [facility] [place] [address] documented as of this encounter Visit Diagnoses Diagnosis CHD, s/p arrest and 2v CABG in 2009, preserved LV function- Primary Coronary atherosclerosis of unspecified type of vessel, [place] or graft documented in this encounter Care Teams Antitank Assault Gunner Relationship Specialty Start Date End Date Alexander Adams MD [address] [place] [address] PCP - General 04/06/12 07/26/23 documented as of this encounter
--- OUTSIDE RECORDS SUMMARY | 2024-05-03 21:59 | XMS_ITS | Encounter Summary ---
Author Organization [facility] [place] [address] Care Team Providers Care Clinical Writer Name Role Phone Alexander Adams MD Primary Care Provider [phone] Reason for Visit * Reason Comments Medication Refill Encounter Details Date Type Department Care Team (Late st Contact Info) Description 11/04/2012 Refill [place] [phone] Jaylin Salcido APRN DM (diabetes mellitus) (Primary [...] AM EDT Hospital Encounter Non-[place] [phone] Arrived 09/24/2024 4:00 PM EDT Office Visit Cardiology at [address] [phone] Nathaniel Keita MD [facility] [place] [address] 11/28/2024 10:30 AM EDT Office Visit Cardiology at [address] [place] [address] Ruben Hartman, PA [facility] [address] documented as of this encounter Visit Diagnoses Diagnosis DM (diabetes mellitus)- Primary Type II or unspecified type diabetes mellitus without mention of complication, not stated as uncontrolled documented in this encounter Care Teams Clinical Writer Relationship Specialty Start Date End Date Alexander Adams MD [address] [place] [address] PCP - General 04/06/12 07/26/23 documented as of this encounter
--- OUTSIDE RECORDS SUMMARY | 2024-05-03 21:59 | XMS_ITS | Encounter Summary ---
[place] [address] Care Team Providers Care Data Entry Email Processor Name Role Phone Neva Pugh MD Primary Care Provider [phone] Reason for Visit * Reason Onset Date Comments Medication Refill 01/20/2012 Encounter Details Date Type Department Care Team (Late st Contact Info) Description 01/20/2012 [place] [phone] Elisha Nichols MD Social History Tobacco Use [...] AM EDT Hospital Encounter Non-[place] [phone] Arrived 09/24/2024 4:00 PM EDT Office Visit Cardiology at [address] [phone] Nathaniel Keita MD [facility] [place] [address] 11/28/2024 10:30 AM EDT Office Visit Cardiology at [address] [place] [address] Ruben Hartman, PA [facility] [place] [address] documented as of this encounter Visit Diagnoses Not on filedocumented in this encounter Care Teams Data Entry Email Processor Relationship Specialty Start Date End Date Neva Pugh MD [address] [place] [address] PCP - General 02/24/10 04/05/12 documented as of this encounter
--- OUTSIDE RECORDS SUMMARY | 2024-05-03 21:59 | XMS_ITS | Encounter Summary ---
Author Organization [facility] [place] [address] Care Team Providers Care Skin Former Name Role Phone Neva Pugh MD Primary Care Provider [phone] Reason for Visit * Reason Comments Medication Refill Encounter Details Date Type Department Care Team (Late st Contact Info) Description 01/11/2012 Refill [place] [phone] Elisha Nichols MD Social History Tobacco Use [...] AM EDT Hospital Encounter Non-Invasive [place] [phone] Arrived 09/24/2024 4:00 PM EDT Office Visit Cardiology at [address] [place] [phone] Nathaniel Keita MD [facility] [place] [address] 11/28/2024 10:30 AM EDT Office Visit Cardiology at [address] [place] [address] Ruben Hartman, [facility] [place] [address] documented as of this encounter Visit Diagnoses Not on filedocumented in this encounter Care Teams Skin Former Relationship Specialty Start Date End Date Neva Pugh MD [address] [place] [address] PCP - General 02/24/10 04/05/12 documented as of this encounter
--- OUTSIDE RECORDS SUMMARY | 2024-05-03 21:59 | XMS_ITS | Encounter Summary ---
[place] [address] Care Team Providers Care Peg Driver Name Role Phone Neva Pugh MD Primary Care Provider [phone] Encounter Details Date Type Department Care Team (Late st Contact Info) Description 04/29/2011 12:30 PM EST Office [place] [address] Elisha Nichols MD DM type 1 (diabetes [...] mouth nightly. 90 tablet 3 ??? Insulin [place], Disposable, (BD INSULIN PEN NEEDLE UF SHORT) 31 X 516 Ndle by [facility].(Non-Drug; Combo Route) route. ??? SUBCUTANEOUS INSULIN PUMP (INSULIN PUMP SW6905 [facility]) by [facility].(Non-Drug; Combo Route) route. ??? aspirin 81 mg [...] AM EDT Hospital Encounter Non-Invasive [place] [address] Arrived 09/24/2024 4:00 PM EDT Office Visit Cardiology at [address] [phone] Nathaniel Keita MD [facility] [place] [address] 11/28/2024 10:30 AM EDT Office Visit Cardiology at [address] [phone] Ruben Hartman, PA [facility] [place] [address] documented as of this encounter Procedures Procedure Name Priority Date/Time Associated Diagnosis Comments HEMOGLOBIN A1C [facility]ON 04/29/2011 12:03 PM EST DM type 1 (diabetes mellitus, type 1) documented in this encounter Results * (ABNORMAL) HDL/Cholesterol Profile (08/09/2011 12:43 PM EDT) [facility] Cholesterol, Total 222(H) <=199 mg/dL [facility] Comment: Recommendations of the NCEP Adult Treatment Panel for the following risk cutoff thresholds for the [place] population: Desirable: <200 mg/dL Borderline High: 200-239 mg/dL High: > or = 240 mg/dL HDL Cholesterol 49 >=40 mg/dL [facility] Comment: Reference range: ??Low HDL: ?? < 40 mg/dL ??Normal: ?40-60 mg/dL ??Desirable: > 60 mg/dL REJI 2001; 285(19):9717-7049 Cholesterol/HDL Ratio 4.5 ratio [facility] Comment: A Cholesterol to HDL ratio [...] Lab Elisha Nichols MD CHEMISTRY ORDERAB LES [facility] * (ABNORMAL) LDL Cholesterol, Direct (08/09/2011 12:43 PM EDT) LDL Cholesterol, Direct 142(H) <=99 mg/dL [facility] Comment: The National Cholesterol Education Program (NCEP) has set the following guidelines for LDL Cholesterol: Reference range: ?? Optimal: ?<100 mg/dL ?? Near Optimal/Above Optimal: ?? 100-129 mg/dL ?? Borderline high: ?130-159 mg/dL ?? High: ? 160-189 mg/dL ?? Very high: ?>gm=713 mg/dL REJI 2001: 285(19):0777-6837 Blood specimen (specimen) 08/09/2011 12:43 PM EDT 08/09/2011 12:54 PM EDT Narrative Resulting Agency Comment Spec In Lab Elisha Nichols MD CHEMISTRY ORDERAB LES Performing Organization Address City/State/[facility] Co de Phone Number [facility] * (ABNORMAL) Hemoglobin A1c (08/09/2011 12:43 PM EDT) [facility] Hemoglobin A1c 8.6(H) 4.3 - 6.1 % [facility] Estimated Average Glucose 200 mg/dL [facility] Comment: eAG equivalents for HbA1c percentages: [...] into estimated average glucose values. ??Diabetes Care 2008:31(8):1342-9835. Blood specimen (specimen) 08/09/2011 12:43 PM EDT 08/09/2011 12:54 PM EDT Narrative Resulting Agency Comment Spec In Lab Elisha Nichols MD CHEMISTRY ORDERAB LES Performing Organization Address [facility] Co de Phone Number [facility] * (ABNORMAL) Hemoglobin A1c (04/29/2011 12:03 PM EST) Hemoglobin A1c 8.3(H) 4.3 - 6.1 % [facility] Estimated Average Glucose 192 mg/dL [facility] Comment: eAG equivalents for HbA1c percentages: [...] into estimated average glucose values. ??Diabetes Care 2008:31(8):2806-9034. Blood specimen (specimen) 04/29/2011 12:03 PM EST 04/29/2011 12:09 PM EST Elisha Nichols MD CHEMISTRY ORDERAB LES [facility] documented in this encounter Visit Diagnoses Diagnosis DM type 1 (diabetes mellitus, type 1)- Primary Type I (juvenile type) diabetes mellitus without mention of complication, not stated as uncontrolled documented in this encounter Care Teams Peg Driver Relationship Specialty Start Date End Date Neva Pugh MD [address] [place] [address] PCP - General 02/24/10 04/05/12 documented as of this encounter
--- OUTSIDE RECORDS SUMMARY | 2024-05-03 21:59 | XMS_ITS | Encounter Summary ---
Author Organization [facility] [place] [address] Care Team Providers Care Broomcorn Seeder Name Role Phone Neva Pugh MD Primary Care Provider [phone] Reason for Visit * Reason Comments Cardiomyopathy ICD interrogation Encounter Details Date Type Department Care Team (Late st Contact Info) Description 01/06/2012 8:45 AM EDT Follow-Up Cardiology at [address] [phone] Thaddeus Cespedes RN Cardiac arrest - ventricular [...] Medtronic Sprint Quattro Model# 6947-58 cm Serial #[id number] Bipolar, steroid-tipped, active-fixation IS-1, DF-1 lead Access: Left axillary vein Location: Right ventricular apex R wave, ICD: 8.0 mV Pacing threshold, ICD: 1.0 V at 0.5 ms Impedance, ICD: 532 ohms HVB Impedance 33 ohms SVC Impedance 39 ohms Pace the diaphragm at 10 V: No Pulse generator: [employer] John II VR Model# [id number] Serial# [id number] Single-chamber ICD Location: Subcutaneous Parameters: VF detection rate: >200 bpm VF therapy: ATP during charging, 30J, 35J x 5 FVT detection rate: via VF 250 bpm FVT therapy: Burst(1), 30J, 35J x 4 VT detection rate:182 bpm VT therapy: Burst(3), 20J, 35J x 4 Enhancement: Wavelet, VT Monitor Bradycardia pacing: VVI 40 Follow-up Battery status: 3.12 V HOUSING INSTALLER: 2.63 V Charge time: 8.3 sec 01/01/2012 [...] AM EDT Hospital Encounter [place] [address] Arrived 09/24/2024 4:00 PM EDT Office Visit Cardiology at [address] [phone] Nathaniel Keita MD [facility] [place] [address] 11/28/2024 10:30 AM EDT Office Visit Cardiology at [address] [address] Ruben Hartman, LAURA [facility] [place] [address] documented as of this encounter Visit Diagnoses Diagnosis Cardiac arrest - ventricular fibrillation- Primary Ventricular fibrillation documented in this encounter Care Teams Broomcorn Seeder Relationship Specialty Start Date End Date Neva Pugh MD [address] [place] [address] PCP - General 02/24/10 04/05/12 documented as of this encounter
--- OUTSIDE RECORDS SUMMARY | 2024-05-03 21:59 | XMS_ITS | Encounter Summary ---
[place] [address] Care Team Providers Care Candy Dipper Name Role Phone Alexander Adams MD Primary Care Provider [phone] Reason for Visit * Reason Comments Diabetes Encounter Details Date Type Department Care Team (Late st Contact Info) Description 10/09/2012 10:00 AM EDT Office Visit [place] [phone] Jaylin Salcido APRN Type I (juvenile type) [...] for October [address] King in [place], [place]. DIABETES REGIMEN: NovoLog vial, MiniMed insulin pump 722. Basal Rates: 12 a.m., 1.2; 4 a.m., 1.15; 6 a.m., 1.2; 12 noon, 1.15; 5 p.m., 1.2; 10 p.m., 1.1. Total basal 28.25. Tseoqhm-cq-ubue 1:10. Correction factor 25. 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 She states she will contact the scooter store to start the process. This was a 30-minute office visit with 29 minutes spent counseling [id number] with the patient in the management of [...] AM EDT Hospital Encounter Non-In[place] [address] Arrived 09/24/2024 4:00 PM EDT Office Visit Cardiology at [address] [address] Nathaniel Keita MD [facility] [place] [address] 11/28/2024 10:30 AM EDT Office Visit Cardiology at [address] [place] [address] Ruben Hartman PA [facility] [place] [address] documented as of this encounter Results * HDL/Cholesterol Profile (01/11/2013 9:48 AM EDT) Cholesterol, Total 161 <=199 mg/dL [facility] Comment: Recommendations of the NCEP Adult Treatment Panel for the following risk cutoff thresholds for the [place] population: Desirable: <200 mg/dL Borderline High: 200-239 mg/dL High: > or = 240 mg/dL HDL Cholesterol 50 >=40 mg/dL [facility] Comment: Reference range: ??Low HDL: ?? < 40 mg/dL ??Normal: ?40-60 mg/dL ??Desirable: > 60 mg/dL REJI 2001; 285(19):1702-2085 Cholesterol/HDL Ratio 3.2 ratio [facility] Comment: A Cholesterol to HDL ratio below 4:1 is desirable. ??Studies suggest that increased CAD risk occurs at ratios above 5 for females and above 6 for men. ? [place] Heart Association ??(http://www.americanheart.org) ? Aurelia Int Med, 1994; 121:641 ? AM J Med, 1998; 105(1A):48S Blood specimen (specimen) 01/11/2013 9:48 AM EDT 01/11/2013 9:57 AM EDT Narrative Resulting Agency Comment Spec In Lab Chris Chatman MD CHEMISTRY ORDERABLES [facility] * LDL Cholesterol, Direct (01/11/2013 9:48 AM EDT) LDL Cholesterol, Direct 98 <=99 mg/dL [facility] Comment: The National Cholesterol Education Program (NCEP) has set the following guidelines for LDL Cholesterol: Reference range: ?? Optimal: ?<100 mg/dL ?? Near Optimal/Above Optimal: ?? 100-129 mg/dL ?? Borderline high: ?130-159 mg/dL ?? High: ? 160-189 mg/dL ?? Very high: ?>ra=892 mg/dL REJI 2001: 285(19):9823-1768 Blood specimen (specimen) 01/11/2013 9:48 AM EDT 01/11/2013 9:57 AM EDT Narrative Resulting Agency Comment Spec In Lab Chris Chatman MD CHEMISTRY ORDERABLES [facility] * (ABNORMAL) Hemoglobin A1c (01/11/2013 9:48 AM EDT) Hemoglobin A1c 8.1(H) 4.3 - 6.1 % [facility] Comment: The [place] Diabetes Association (ADA) has stated that HbA1c [...] 2013:36;suppl 1:S11-S66. Estimated Average Glucose 186 mg/dL [facility] Comment: eAG equivalents for HbA1c percentages: [...] into estimated average glucose values. ??Diabetes Care 2008:31(8):4079-0209. Blood specimen (specimen) 01/11/2013 9:48 AM EDT 01/11/2013 9:57 AM EDT Narrative Resulting Agency Comment Spec In Lab Chris Chatman MD CHEMISTRY ORDERABLES [facility] * (ABNORMAL) Comprehensive metabolic panel (non-fasting) (01/11/2013 9:48 AM EDT) [facility] Glucose 315(H) 60 - 199 mg/dL [facility] Comment:Diabetes: >=200 mg/d L plus symptoms Blood Urea Nitrogen 21(H) 8 - 18 mg/dL [facility] Creatinine 1.17 0.70 - 1.20 mg/dL [facility] Comment: Please note that the pediatric reference intervals supplied above were not validated at [facility]. Results from pediatric patients should be interpreted in conjunction to the patient's age, height and muscle mass. 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
--- OUTSIDE RECORDS SUMMARY | 2024-05-03 21:59 | XMS_ITS | Encounter Summary ---
Author Organization [facility] [place] [address] Care Team Providers Care Casting Machine Operator Automatic Name Role Phone Alexander Adams MD Primary Care Provider [phone] Encounter Details Date Type Department Care Team (Latest Contact Info) Description 10/09/2012 9:52 AM EDT - 10/09/2012 11:59 PM EDT Hospital [place] [address] Elisha Nichols MD Type I (juvenile type) [...] 01/20/2012 03/12/2013 Diabetic Supplies, Miscellan. Misc by [facility].(Non-Drug; Combo Route) route. Insulin Pump Supplies and Diabetes Testing Supplies. Pt. Tests BS 4x/day. 90 day supply. Manually faxed to [employer] @[phone]. 12/13/2011 02/22/2013 esomeprazole (NEXIUM) 40 mg capsule [...] (ACCU-CHEK COMPACT TEST) Strp 6 strips by [facility].(Non-Drug; Combo Route) route 6 times daily. 4-6 times daily 6 [address] 03/15/2011 05/08/2013 Insulin [place], Disposable, (BD INSULIN PEN NEEDLE UF SHORT) 31 X /16 Ndle by [facility].(Non-Drug; Combo Route) route. 03/31/2017 SUBCUTANEOUS INSULIN PUMP (INSULIN PUMP [id number] [facility]) by [facility].(Non-Drug; Combo Route) route. 03/31/2017 acetaminophen (TYLENOL) 325 [...] AM EDT Hospital Encounter Non[place] [address] Arrived 09/24/2024 4:00 PM EDT Office Visit Cardiology at [address] [phone] Nathaniel Keita MD [facility] [place] [address] 11/28/2024 10:30 AM EDT Office Visit Cardiology at [address] [phone] Ruben Hartman PA [facility] [place] [address] documented as of this encounter Procedures Procedure Name Priority Date/Time Associated Diagnosis Comments HEMOGLOBIN A1C STAT 10/09/2012 10:01 AM EDT 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 Estimated Average Glucose 209 mg/dL [facility] Comment: eAG equivalents for HbA1c [...] into estimated average glucose values. ??Diabetes Care 2008:31(8):9326-0777. 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
--- OUTSIDE RECORDS SUMMARY | 2024-05-03 21:59 | XMS_ITS | Encounter Summary ---
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 [address] [facility] Ophthalmology [address] [place] [phone] Referral ID Status Reason Start Date Expiration Date Visits Requested Visits Authorized [id number] Complete-Ref Provider Notified Consult, Test & Treat 3 07/10/2013 1 1 Reason for Visit * Reason Comments Diabetes Encounter Details Date Type Department Care Team (Late st Contact Info) Description 01/11/2013 9:30 AM EDT Office [place] [address] Jaylin Salcido APRN Type I [...] had an appointment earlier this a.m. with personal trainer, Dr. Beasley. She states they discussed that [...] pain. Eyes: Due for annual appointment with farm crops teacher. 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 Hemoglobin A1c [...] office visit with 35 minutes spent counseling bmpy-rq-uqtv with the patient in the management of glucose levels, lowering target glucose on pump to 110, reviewing blood pressure targets and cholesterol targets. Recent Results (from the past 72 hour(s)) EKG 12-LEAD Component Value Range Ventricular rate 80 Atrial Rate 80 P-R Interval 180 QRS Duration 80 Q-T Interval 362 QTC Calculated (Bezet) 417 Calculated P Independence 82 Calculated R Independence 66 Calculated T Independence 69 INTERPRETATION Value: Normal sinus rhythm Low voltage QRS Borderline ECG When compared with ECG of 24-MAR-2010 07:53, No significant change was found Confirmed by MD AMES SCOTT ([id number]) on 01/11/2013 10:28:31 AM COMPREHENSIVE METABOLIC PANEL [...] AM EDT Hospital Encounter Non-[place] [address] Arrived 09/24/2024 4:00 PM EDT Office Visit Cardiology at [address] [address] Nathaniel Keita MD [facility] [place] [address] 11/28/2024 10:30 AM EDT Office Visit Cardiology at [address] [place] [address] Ruben Hartman PA [facility] [place] [address] Scheduled Referrals Name Type Priority Associated Diagnoses [...] CE [facility] Albumin, Urine 16.4 mg/L JOSE Connor MILL[facility]NI[facility] Albumin / Creatinin Ratio, Urine 12 mcg/mg Cr [facility] Comment: Reference Range* Random collection (mcg/mg creatinine) Normal ?<30 Microalbuminuria ?? 30 - 300 Clinical Albuminuria ?? >300 *[place] Diabetes Association. Diabetic Nephropathy. Diabetes Care 1997;(Suppl [...] Hormone 1.21 0.27 - 4.20 mcIU/mL [facility] Blood specimen (specimen) 05/08/2013 9:49 AM EST [...] Mellitus, Diabetes Care 2013; 36: Suppl. 1, X87-61 Estimated Average Glucose 189 mg/dL [facility] Comment: eAG equivalents for HbA1c percentages: [...] into estimated average glucose values. ??Diabetes Care 2008:31(8):1166-4765. Blood specimen (specimen) 05/08/2013 9:49 AM EST 05/08/2013 10:09 AM EST Narrative Resulting Agency Comment Spec In Lab Chris Chatman MD CHEMISTRY ORDERABLES [facility] * HDL/Cholesterol Profile (01/11/2013 9:48 AM EDT) [facility] Cholesterol, Total 161 <=199 mg/dL [facility] Comment: Recommendations of the NCEP Adult Treatment Panel for the following risk cutoff thresholds for the [place] population: Desirable: <200 mg/dL Borderline High: 200-239 mg/dL High: > or = 240 mg/dL HDL Cholesterol 50 >=40 mg/dL [facility] Comment: Reference range: ??Low HDL: ?? < 40 mg/dL ??Normal: ?40-60 mg/dL ??Desirable: > 60 mg/dL REJI 2001; 285(19):0271-3328 Cholesterol/HDL Ratio 3.2 ratio [facility] Comment: A Cholesterol to HDL ratio below 4:1 is desirable. ??Studies suggest that increased CAD risk occurs at ratios above 5 for females and above 6 for men. ? [place] Heart Association ??(http://www.americanheart.org) ? Aurelia Int Med, 1994; 121:641 ? AM J Med, 1998; 105(1A):48S Blood specimen (specimen) 01/11/2013 9:48 AM EDT 01/11/2013 9:57 AM EDT Narrative Resulting Agency Comment Spec In Lab Chris Chatman MD CHEMISTRY ORDERABLES Performing Organization Address [facility] de Phone Number [facility] * LDL Cholesterol, Direct (01/11/2013 9:48 AM EDT) LDL Cholesterol, Direct 98 <=99 mg/dL [facility] Comment: The National Cholesterol Education Program (NCEP) has set the following guidelines for LDL Cholesterol: Reference range: ?? Optimal: ?<100 mg/dL ?? Near Optimal/Above Optimal: ?? 100-129 mg/dL ?? Borderline high: ?130-159 mg/dL ?? High: ? 160-189 mg/dL ?? Very high: ?>ja=938 mg/dL REJI 2001: 28519):6390-9886 Blood specimen (specimen) 01/11/2013 9:48 AM EDT 01/11/2013 9:57 AM EDT Narrative Resulting Agency Comment Spec In Lab Chris Chatman MD CHEMISTRY ORDERABLES Performing Organization Address [facility] de Phone Number [facility] * (ABNORMAL) Hemoglobin A1c (01/11/2013 9:48 AM EDT) Hemoglobin A1c 8.1(H) 4.3 - 6.1 % [facility] Comment: The [place] Diabetes Association (ADA) has stated that HbA1c [...] 2013:36;suppl 1:S11-S66. Estimated Average Glucose 186 mg/dL [facility] Comment: eAG equivalents for HbA1c [...] into estimated average glucose values. ??Diabetes Care 2008:31(8):6814-5932. Blood specimen (specimen) 01/11/2013 9:48 AM EDT 01/11/2013 9:57 AM EDT Narrative Resulting Agency Comment Spec In Lab Chris Chatman MD CHEMISTRY ORDERABLES [facility] * (ABNORMAL) Comprehensive metabolic panel (non-fasting) (01/11/2013 9:48 AM EDT) [facility] Glucose 315(H) 60 - 199 mg/dL [...] the following links into your internet browser. 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
--- OUTSIDE RECORDS SUMMARY | 2024-05-03 21:59 | XMS_ITS | Encounter Summary ---
[place] [address] Care Team Providers Care Timing Inspector Name Role Phone Alexander Adams MD Primary Care Provider [phone] Reason for Visit * Reason Comments Medication Refill Encounter Details Date Type Department Care Team (Late st Contact Info) Description 06/07/2012 [place] [phone] Elisha Nichols MD Social History Tobacco Use [...] EDT Hospital Encounter Non-Invasive Cardiology [place] [address] Arrived 09/24/2024 4:00 PM EDT Office Visit Cardiology at [address] [address] Nathaniel Keita MD [facility] [place] [address] 11/28/2024 10:30 AM EDT Office Visit Cardiology at [address] [address] Ruben Hartman PA [facility] [place] [address] documented as of this encounter Visit Diagnoses Not on filedocumented in this encounter Care Teams Timing Inspector Relationship Specialty Start Date End Date Alexander Adams MD [address] [place] [address] PCP - General 04/06/12 07/26/23 documented as of this encounter
--- OUTSIDE RECORDS SUMMARY | 2024-05-03 21:59 | XMS_ITS | Encounter Summary ---
[place] [address] Care Team Providers Care Enrobing Machine Corder Name Role Phone Neva Pugh MD Primary Care Provider [phone] Reason for Visit * Reason Onset Date Comments Medication Refill 03/13/2011 Encounter Details Date Type Department Care Team (Late st Contact Info) Description 03/13/2011 Refill [place] [phone] Elisha Nichols MD Social History Tobacco Use [...] AM EDT Hospital Encounter Non-[place] [phone] Arrived 09/24/2024 4:00 PM EDT Office Visit Cardiology at [address] [phone] Nathaniel Keita MD [facility] [place] [address] 11/28/2024 10:30 AM EDT Office Visit Cardiology at [address] [place] [address] Ruben Hartman, PA [facility] [place] [address] documented as of this encounter Visit Diagnoses Not on filedocumented in this encounter Care Teams Enrobing Machine Corder Relationship Specialty Start Date End Date Neva Pugh MD [address] [place] [address] PCP - General 02/24/10 04/05/12 documented as of this encounter
--- OUTSIDE RECORDS SUMMARY | 2024-05-03 21:59 | XMS_ITS | Encounter Summary ---
[place] [address] Care Team Providers Care Expressive Art Therapist Name Role Phone Alexander Adams MD Primary Care Provider [phone] Reason for Visit * Reason Onset Date Comments Medication Refill 06/08/2012 Encounter Details Date Type Department Care Team (Late st Contact Info) Description 06/08/2012 Refill [place] [phone] Jaylin Salcido APRN Type II or unspecified [...] AM EDT Hospital Encounter Non-Invasive [place] [phone] Arrived 09/24/2024 4:00 PM EDT Office Visit Cardiology at [address] [place] [address] Nathaniel Keita MD [facility] [place] [address] 11/28/2024 10:30 AM EDT Office Visit Cardiology at [address] [place] [address] Ruben Hartman, LAURA [facility] [place] [address] documented as of this encounter Visit Diagnoses Diagnosis Type II or unspecified type diabetes mellitus with ophthalmic manifestations, uncontrolled(250.52)- Primary Type II 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
--- OUTSIDE RECORDS SUMMARY | 2024-05-03 21:59 | XMS_ITS | Encounter Summary ---
Author Organization [place] [address] Care Team Providers Care Labor Relations Consultant Name Role Phone Neva Pugh MD Primary Care Provider [phone] Encounter Details Date Type Department Care Team (Latest Contact Info) Description 01/06/2012 12:46 PM EDT - 01/06/2012 11:59 PM EDT Hospital Encounter Non-[place] [phone] CARDIO, ECHO SIXTY MIN APPT None Milind Beasley MD [facility] [place] [address] Fatigue Discharge Disposition: Home Social History Tobacco [...] 01/06/2012 06/19/2012 Diabetic Supplies, Miscellan. Misc by [facility].(Non-Drug; Combo Route) route. Insulin Pump Supplies and Diabetes Testing Supplies. Pt. Tests BS 4x/day. 90 day supply. Manually faxed to [facility] @[phone]. 12/13/2011 02/22/2013 simvastatin (ZOCOR) 20 mg tabletIndications:H [...] (ACCU-CHEK COMPACT TEST) Strp 6 strips by [facility].(Non-Drug; Combo Route) route 6 times daily. 4-6 times daily 6 Box 3 03/15/2011 05/08/2013 insulin aspart (NOVOLOG) 100 unit/mL vial injection Inject 50-60 Units subcutaneously daily. 60 mL PRN 12/29/2010 01/11/2012 Insulin [place], Disposable, (BD INSULIN PEN NEEDLE UF SHORT) 31 X 5/16 Ndle by [facility].(Non-Drug; Combo Route) route. 03/31/2017 SUBCUTANEOUS INSULIN PUMP (INSULIN PUMP [id number] [facility]) by [facility].(Non-Drug; Combo Route) route. 03/31/2017 acetaminophen (TYLENOL) 325 [...] AM EDT Hospital Encounter Non-Invasive [place] [address] Arrived 09/24/2024 4:00 PM EDT Office Visit Cardiology at [address] [phone] Nathaniel Keita MD [facility] [place] [address] 11/28/2024 10:30 AM EDT Office Visit Cardiology at [address] [phone] Ruben Hartman PA [facility] [place] [address] documented as of this encounter Procedures Procedure Name Priority Date/Time Associated Diagnosis Comments ECHOCARDIOGRAM TRANSTHORACIC Routine 01/06/2012 2:30 PM EDT Fatigue documented in this encounter Results * Echo Transthoracic (Complete) (01/06/2012 2:30 PM EDT) EF 60 HEART[employer]W Player SYSTEM Anatomical Region Laterality Modality Other 01/06/2012 Narrative 01/06/2012 2:42 PM EDT Procedure: ? Transthoracic Echocardiogram Patient: ? KAN Tyler ? (Age): 1945(66) Med Rec#: ?[id number] ? Sex: ?F ? Site Loc: ?DH ? Ht / Wt: ??172(cm)/91(kg) Pt. Loc: ? Echo Lab ? BSA: ?2.09 Study Date: ?01/06/2012 ? Pt. Type: Outpatient Tape: ? Referring: Milind Beasley ([id number]) Logistics Assistant: Erendira Keller [facility] Diagnosis: ??CAD, unspecified (414.4) ??Fatigue (780.79) CPT Code(s): ??Echo Full (37736), ??Spectral Doppler (22604), ??Color Doppler (68365), ??Definity (57354LU), Indication(s): ??Fatigue Rhythm: HR ?BP 85 ?145/80 [...] ? Mid-Inferior ?Normal ? Mid-Inferoseptal ?Normal ? [place]-Septal ? Normal ? [place]-Anterior ? Normal ? [place]-Lateral ?Normal ? [place]-Inferior ? Normal ? [place]-Tip ?Normal ? Chambers ?Value ?Units (Range) ? [...] 01/06/2012 14:41:31 Images reviewed and interpretation verified [facility] Procedure Note Alexander Abernathy MD - 01/06/2012 Procedure: Transthoracic Echocardiogram Patient: KAN MATHIS(Age): 1945(66) Med Rec#: [id number] Sex: F Site Loc: [facility] Ht / Wt: 172(cm)/91(kg) Pt. Loc: Echo Lab BSA: 2.09 Study Date: 01/06/2012 Pt. Type: Outpatient Tape: Referring: Milind Beasley ([id number]) Logistics Assistant: Erendira Keller [facility] Diagnosis: CAD, unspecified (414.4) Fatigue (780.79) CPT Code(s): Echo Full (49144), Spectral Doppler (75188), Color Doppler (33160), Definity (80346YV), Indication(s): Fatigue Rhythm: HR BP 85 145/80 [...] Normal Mid-Posterolateral Normal Mid-Inferior Normal Mid-Inferoseptal Normal [place]-Septal Normal [place]-Anterior Normal [place]-Lateral Normal [place]-Inferior Normal [place]-Tip Normal Chambers Value Units (Range) LV EF [...] 01/06/2012 14:41:31 Images reviewed and interpretation verified [facility] Milind Beasley MD [...] on Beatriz 10 at 1431, Until Beatriz 01/06/12 at 1431, Other, for enhancement of sub-optimal echo images, Echo Lab (Intra-Procedure), Routine Given 01/06/2012 2:31 PM EDT 0.5 mLs documented in this encounter Care Teams Labor Relations Consultant Relationship Specialty Start Date End Date Neva Pugh MD [address] [place] [address] PCP - General 02/24/10 04/05/12 documented as of this encounter
--- OUTSIDE RECORDS SUMMARY | 2024-05-03 21:59 | XMS_ITS | Encounter Summary ---
[place] [address] Care Team Providers Care Booking Clerk Name Role Phone Neva Pguh MD Primary Care Provider [phone] Reason for Visit * Reason Comments Diabetes Encounter Details Date Type Department Care Team (Late st Contact Info) Description 12/02/2011 2:30 PM EDT Office [place] [phone] Jaylin Salcido APRN Diabetes mellitus; Hyperlipidemia; Hypertension [...] and Mood: Had a wonderful vacation in [place] with her . Eyes: No recent vision changes. No recent headaches, chest pain, or shortness of breath. No recent GI symptoms. Appetite is good. Sleep pattern has never been good most of her life. Extremities: Feet numbness, Charcot foot. Has podiatry care with Dr. King in [place]. 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 PHYSICAL EXAMINATION: Appearance: She appears in good [...] AM EDT Hospital Encounter Non-Invasive [place] [address] Arrived 09/24/2024 4:00 PM EDT Office Visit Cardiology at [address] [place] [address] Nathaniel Keita MD [facility] [place] [address] 11/28/2024 10:30 AM EDT Office Visit Cardiology at [address] [place] [address] Ruben Hartman PA [facility] [place] [address] documented as of this encounter Procedures Procedure [...] Lab Chris Chatman MD HEMATOLOGY ORDERABLE S Performing Organization Address [facility]/State/ZIP Co de Phone Number [facility] * (ABNORMAL) Hemoglobin A1c (04/06/2012 9:08 AM EST) Hemoglobin A1c 7.9(H) 4.3 - 6.1 % [facility] Estimated Average Glucose 180 mg/dL [facility] Comment: eAG equivalents for HbA1c [...] into estimated average glucose values. ??Diabetes Care 2008:31(8):6192-1600. Blood specimen (specimen) 04/06/2012 9:08 AM EST [...] intervals supplied above were not validated at [facility]. Results from pediatric patients should be interpreted [...] In Lab Chris Chatman MD CHEMISTRY ORDERABLES [facility] * (ABNORMAL) LDL Cholesterol, Direct (12/02/2011 2:20 PM EDT) LDL Cholesterol, Direct 132(H) <=99 mg/dL [facility] Comment: The National Cholesterol Education Program (NCEP) has set the following guidelines for LDL Cholesterol: Reference range: ?? Optimal: ?<100 mg/dL ?? Near Optimal/Above Optimal: ?? 100-129 mg/dL ?? Borderline high: ?130-159 mg/dL ?? High: ? 160-189 mg/dL ?? Very high: ?>xe=137 mg/dL REJI 2001: 285(08):1641-3138 Blood specimen (specimen) 12/02/2011 2:20 PM EDT 12/02/2011 2:38 PM EDT Narrative Resulting Agency Comment Spec In Lab Chris Chatman MD CHEMISTRY ORDERABLES Performing Organization Address [facility] de Phone Number [facility] * TSH (12/02/2011 2:20 PM EDT) Thyroid Stimulating Hormone 0.78 0.27 - 4.20 mcIU/mL [facility] Blood specimen (specimen) 12/02/2011 2:20 PM EDT 12/02/2011 2:38 PM EDT Narrative Resulting Agency Comment Spec In Lab Chris Chatman MD CHEMISTRY ORDERABLES Performing Organization Address [facility] de Phone Number [facility] * (ABNORMAL) Hemoglobin A1c (12/02/2011 2:20 PM EDT) Hemoglobin A1c 8.0(H) 4.3 - 6.1 % [facility] Estimated Average Glucose 183 mg/dL [facility] Comment: eAG equivalents for HbA1c [...] into estimated average glucose values. ??Diabetes Care 2008:31(8):7010-7218. Blood specimen (specimen) 12/02/2011 2:20 PM EDT 12/02/2011 2:38 PM EDT Narrative Resulting Agency Comment Spec In Lab Chris Chatman MD CHEMISTRY ORDERABLES [facility] * (ABNORMAL) Comprehensive metabolic panel (non-fasting) (12/02/2011 2:20 PM EDT) [facility] Glucose 110 60 - 199 mg/dL [facility] Comment:Diabetes: >=200 mg/d L plus symptoms Blood Urea Nitrogen 21(H) 8 - 18 mg/dL [facility] Creatinine 1.11 0.70 - 1.20 mg/dL [facility] Comment: Please note that the pediatric reference intervals supplied above were not validated at [facility]. Results from pediatric patients should be interpreted [...] Chatman MD CHEMISTRY ORDERABLES Performing Organization Address City/State/[facility] Co de Phone Number [facility] documented in this encounter Visit Diagnoses Diagnosis Diabetes mellitus Type II or unspecified type diabetes mellitus without mention of complication, not stated as uncontrolled Hyperlipidemia Other and unspecified hyperlipidemia Hypertension Unspecified essential hypertension documented in this encounter Care Teams Booking Clerk Relationship Specialty Start Date End Date Neva Pugh MD [address] [place] [address] PCP - General 02/24/10 04/05/12 documented as of this encounter
--- OUTSIDE RECORDS SUMMARY | 2024-05-03 21:59 | XMS_ITS | Encounter Summary ---
[place] [address] Care Team Providers Care Cd Storage And Materials Make Up Helper Name Role Phone Alexander Adams MD Primary Care Provider Encounter Details Date Type Department Care Team (Late st Contact Info) Description 10/18/2012 External Results Cardiology at [address] [phone] Neva Pugh MD [address] [place] [address] Social History Tobacco Use Types Packs/Day Years [...] AM EDT Hospital Encounter Non-[place] [address] Arrived 09/24/2024 4:00 PM EDT Office Visit Cardiology at [address] [phone] Nathaniel Keita MD [facility] [place] [address] 11/28/2024 10:30 AM EDT Office Visit Cardiology at [address] [place] [address] Ruben Hartman PA [facility] [place] [address] documented as of this encounter Procedures Procedure Name Priority Date/Time Associated Diagnosis Comments EP DEVICE SCAN Routine 10/10/2012 documented in this encounter Results * Scan Doc: EP Device (10/10/2012) Anatomical Region Laterality Modality Other Neva Pugh MD MEDIA MGR SCAN EXT O RDR/RSLT documented in this encounter Visit Diagnoses Not on filedocumented in this encounter Care Teams Cd Storage And Materials Make Up Helper Relationship Specialty Start Date End Date Alexander Adams MD [address] [place] [address] PCP - General 04/06/12 07/26/23 documented as of this encounter
--- OUTSIDE RECORDS SUMMARY | 2024-05-03 21:59 | XMS_ITS | Encounter Summary ---
[place] [address] Care Team Providers Care Survey Technologist Name Role Phone Alexander Adams MD Primary Care Provider [phone] Reason for Visit * Reason Onset Date Comments Medication Refill 06/19/2012 Encounter Details Date Type Department Care Team (Late st Contact Info) Description 06/19/2012 Ref[place] [phone] Elisha Nichols MD Hypertension (Primary Dx) Social [...] AM EDT Hospital Encounter Non-Invasive [place] [phone] Arrived 09/24/2024 4:00 PM EDT Office Visit Cardiology at [address] [place] [phone] Nathaniel Keita MD [facility] [address] 11/28/2024 10:30 AM EDT Office Visit Cardiology at [address] [place] [address] Ruben Hartman PA [facility] [address] documented as of this encounter Visit Diagnoses Diagnosis Hypertension- Primary Unspecified essential hypertension documented in this encounter Care Teams Survey Technologist Relationship Specialty Start Date End Date Alexander Adams MD [address] [place] [address] PCP - General 04/06/12 07/26/23 documented as of this encounter
--- OUTSIDE RECORDS SUMMARY | 2024-05-03 21:59 | XMS_ITS | Encounter Summary ---
[place] [address] Care Team Providers Care Drop Forger Name Role Phone Alexander Adams MD Primary Care Provider [phone] Reason for Visit * Reason Comments Diabetes Encounter Details Date Type Department Care Team (Late st Contact Info) Description 04/06/2012 9:00 AM EST Office [place] [phone] Jaylin Salcido APRN Diabetes mellitus; DM neuro [...] documented in this encounter Progress Notes * Jayiln Salcido APRN - 04/06/2012 11:47 AM EST [...] and 10 p.m. 1.1. Total basal 28.05. [id number] 1:10. Correction factor 25. Target 95 to [...] chest pain. Has an annual visit with operations examiner. No recent shortness of breath. No recent GI symptoms. Appetite is good. Sleep pattern is good. Skin: No rashes. No sores. Had basal cell cancer removed from upper L arm. Feet: Followed by Dr. King, honing job setter in [place], [place]. PHYSICAL EXAMINATION: Appearance: She appears in [...] Diabetes mellitus with complications. Consider referral to computer help desk representative. The patient states she definitely could drink more water daily and she is going to try to do that. Will consider referral to computer help desk representative at next office visit if kidney function [...] AM EDT Hospital Encounter Non-[place] [address] Arrived 09/24/2024 4:00 PM EDT Office Visit Cardiology at [address] [phone] Nathaniel Keita MD [facility] [place] [address] 11/28/2024 10:30 AM EDT Office Visit Cardiology at [address] [phone] Ruben Hartman, PA [facility] [place] [address] documented as of this encounter Procedures Procedure [...] In Lab Chris Chatman MD URINE ORDERABLES [facility] * (ABNORMAL) LDL Cholesterol, Direct (07/06/2012 9:25 AM EDT) LDL Cholesterol, Direct 114(H) <=99 mg/dL [facility] Comment: The National Cholesterol Education Program (NCEP) has set the following guidelines for LDL Cholesterol: Reference range: ?? Optimal: ?<100 mg/dL ?? Near Optimal/Above Optimal: ?? 100-129 mg/dL ?? Borderline high: ?130-159 mg/dL ?? High: ? 160-189 mg/dL ?? Very high: ?>fq=754 mg/dL REJI 2001: 285(19):6754-5635 Blood specimen (specimen) 07/06/2012 9:25 AM EDT 07/06/2012 9:46 AM EDT Narrative Resulting Agency Comment Spec In Lab Chris Chatman MD CHEMISTRY ORDERABLES [facility] * HDL/Cholesterol Profile (07/06/2012 9:25 AM EDT) Cholesterol, Total 187 <=199 mg/dL [facility] Comment: Recommendations of the NCEP Adult Treatment Panel for the following risk cutoff thresholds for the [place] population: Desirable: <200 mg/dL Borderline High: 200-239 mg/dL High: > or = 240 mg/dL HDL Cholesterol 43 >=40 mg/dL [facility] Comment: Reference range: ??Low HDL: ?? < 40 mg/dL ??Normal: ?40-60 mg/dL ??Desirable: > 60 mg/dL REJI 2001; 285(19):4657-7244 Cholesterol/HDL Ratio 4.3 ratio [facility] Comment: A Cholesterol to HDL [...] Chatman MD CHEMISTRY ORDERABLES Performing Organization Address [facility] Co de Phone Number [facility] * VIT D Total Evaluation (07/06/2012 9:25 AM EDT) Vitamin D Total 25 OH 36 30 - 100 ng/mL [facility] Comment: Deficient <10 ng/mL Insufficient 10 [...] Chatman MD CHEMISTRY ORDERABLES Performing Organization Address [facility] de Phone Number [facility] * (ABNORMAL) Hemoglobin A1c (07/06/2012 9:25 AM EDT) Hemoglobin A1c 7.8(H) 4.3 - 6.1 % [facility] Comment: The [place] Diabetes Association (ADA) [...] 2013:36;suppl 1:S11-S66. Estimated Average Glucose 177 mg/dL [facility] Comment: eAG equivalents for HbA1c [...] into estimated average glucose values. ??Diabetes Care 2008:31(8):2681-3198. Blood specimen (specimen) 07/06/2012 9:25 AM EDT 07/06/2012 9:46 AM EDT Narrative Resulting Agency Comment Spec In Lab Chris Chatman MD CHEMISTRY ORDERABLES [facility] * Differential, Automated (04/06/2012 9:08 AM EST) Neutrophil % 62.5 34.0 - 71.0 % [facility] Neutrophil Absolute 5.91 1.50 - 6.30 x10(3)/mcL [facility] Lymph % 30.0 19.0 - 53.0 % [...] Hemoglobin Concentration 33.6 32.0 - 36.5 gm/dL [facility] Platelet 205 145 - 370 x10(3)/mcL [facility] RDW Standard Deviation 42.5 35.0 - 46.0 fL [facility] RDW coefficient of variation 13.4 10.9 - 14.4 % [facility] Mean Platelet Volume 10.3 9.0 - 12.0 fL [facility] Blood specimen (specimen) 04/06/2012 9:08 AM EST [...] into estimated average glucose values. ??Diabetes Care 2008:31(8):2449-9191. Blood specimen (specimen) 04/06/2012 9:08 AM EST [...] intervals supplied above were not validated at [facility]. 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
--- OUTSIDE RECORDS SUMMARY | 2024-05-03 21:59 | XMS_ITS | Encounter Summary ---
[place] [address] Care Team Providers Care Teletypesetter Operator Name Role Phone Alexander Adams MD Primary Care Provider Encounter Details Date Type Department Care Team (Late st Contact Info) Description 04/25/2012 External Results Cardiology at [address] [phone] Neva Pugh MD [address] [place] [address] Social History Tobacco Use Types Packs/Day Years [...] AM EDT Hospital Encounter Non-[place] [address] Arrived 09/24/2024 4:00 PM EDT Office Visit Cardiology at [address] [phone] Nathaniel Keita MD [facility] [place] [address] 11/28/2024 10:30 AM EDT Office Visit Cardiology at [address] [place] [address] Ruben Hartman PA [facility] [place] [address] documented as of this encounter Procedures Procedure Name Priority Date/Time Associated Diagnosis Comments EP DEVICE SCAN Routine 04/11/2012 documented in this encounter Results * Scan Doc: EP Device (04/11/2012) Anatomical Region Laterality Modality Other Neva Pugh MD MEDIA MGR SCAN EXT O RDR/RSLT documented in this encounter Visit Diagnoses Not on filedocumented in this encounter Care Teams Teletypesetter Operator Relationship Specialty Start Date End Date Alexander Adams MD [address] [place] [address] PCP - General 04/06/12 07/26/23 documented as of this encounter
--- OUTSIDE RECORDS SUMMARY | 2024-05-03 21:59 | XMS_ITS | Encounter Summary ---
Author Organization [facility] [place] [address] Care Team Providers Care Help Desk Internship Name Role Phone Neva Pugh MD Primary Care Provider [phone] Encounter Details Date Type Department Care Team (Latest Contact Info) Description 08/09/2011 12:38 PM EDT - 08/09/2011 11:59 PM EDT [place] [phone] Elisha Nichols MD DM type 1 (diabetes [...] (ACCU-CHEK COMPACT TEST) Strp 6 strips by [facility].(Non-Drug; Combo Route) route 6 times daily. 4-6 times daily 6 Box 3 03/15/2011 05/08/2013 furosemide (LASIX) 20 mg tabletIndications:h ypertension Take by mouth daily as needed. Mon/tue/fri Indications: Hypertension 90 tablet 3 01/25/2011 12/02/2011 [...] nightly. 90 tablet 3 10/19/2010 12/02/2011 Insulin [place], Disposable, (BD INSULIN PEN NEEDLE UF SHORT) 31 X 5/16 Ndle by [facility].(Non-Drug; Combo Route) route. 03/31/2017 SUBCUTANEOUS INSULIN PUMP (INSULIN PUMP [id number] [place]) by [facility].(Non-Drug; Combo Route) route. 03/31/2017 [...] AM EDT Hospital Encounter Non[place] [address] Arrived 09/24/2024 4:00 PM EDT Office Visit Cardiology at [address] [phone] Nathaniel Keita MD [facility] [place] [address] 11/28/2024 10:30 AM EDT Office Visit Cardiology at [address] [phone] Ruben Hartman PA [facility] [place] [address] documented as of this encounter Procedures Procedure [...] (ABNORMAL) HDL/Cholesterol Profile (08/09/2011 12:43 PM EDT) [facility] Cholesterol, Total 222(H) <=199 mg/dL [facility] Comment: Recommendations of the NCEP Adult Treatment Panel for the following risk cutoff thresholds for the [place] population: Desirable: <200 mg/dL Borderline High: 200-239 mg/dL High: > or = 240 mg/dL HDL Cholesterol 49 >=40 mg/dL [facility] Comment: Reference range: ??Low HDL: ?? < 40 mg/dL ??Normal: ?40-60 mg/dL ??Desirable: > 60 mg/dL REJI 2001; 285(19):2273-4481 Cholesterol/HDL Ratio 4.5 ratio [facility] Comment: A Cholesterol to HDL ratio below 4:1 is desirable. ??Studies suggest that increased CAD risk occurs at ratios above 5 for females and above 6 for men. ? [place] Heart Association ??(http://www.americanheart.org) ? Aurelia Int Med, 1994; 121:641 ? AM J Med, 1998; 105(1A):48S Blood specimen (specimen) 08/09/2011 12:43 PM EDT 08/09/2011 12:54 PM EDT Narrative Resulting Agency Comment Spec In Lab Elisha Nichols MD CHEMISTRY ORDERAB LES [facility] * (ABNORMAL) LDL Cholesterol, Direct (08/09/2011 12:43 PM EDT) LDL Cholesterol, Direct 142(H) <=99 mg/dL [facility] Comment: The National Cholesterol Education Program (NCEP) has set the following guidelines for LDL Cholesterol: Reference range: ?? Optimal: ?<100 mg/dL ?? Near Optimal/Above Optimal: ?? 100-129 mg/dL ?? Borderline high: ?130-159 mg/dL ?? High: ? 160-189 mg/dL ?? Very high: ?>qz=205 mg/dL REJI 2001: 285(19):5930-0323 Blood specimen (specimen) 08/09/2011 12:43 PM EDT 08/09/2011 12:54 PM EDT Narrative Resulting Agency Comment Spec In Lab Elisha Nichols MD CHEMISTRY ORDERAB LES [facility] * (ABNORMAL) Hemoglobin A1c (08/09/2011 12:43 PM EDT) Hemoglobin A1c 8.6(H) 4.3 - 6.1 % [facility] Estimated Average Glucose 200 mg/dL [facility] Comment: eAG equivalents for [...] into estimated average glucose values. ??Diabetes Care 2008:31(8):8685-6127. Blood specimen (specimen) 08/09/2011 12:43 PM EDT 08/09/2011 12:54 PM EDT Narrative Resulting Agency Comment Spec In Lab Elisha Nichols MD CHEMISTRY ORDERAB LES [facility] documented in this encounter Visit Diagnoses Diagnosis DM type 1 (diabetes mellitus, type 1) Type I (juvenile type) diabetes mellitus without mention of complication, not stated as uncontrolled documented in this encounter Care Teams Help Desk Internship Relationship Specialty Start Date End Date Neva Pugh MD [address] [place] [address] PCP - General 02/24/10 04/05/12 documented as of this encounter
--- OUTSIDE RECORDS SUMMARY | 2024-05-03 21:59 | XMS_ITS | Encounter Summary ---
Author Organization [facility] [place] [address] Care Team Providers Care Ladle Operator Name Role Phone Alexander Adams MD Primary Care Provider [phone] Reason for Visit * Reason Comments Medication Refill Encounter Details Date Type Department Care Team (Late st Contact Info) Description 08/02/2012 Refill [place] [phone] Elisha Nichols MD Social History Tobacco Use [...] AM EDT Hospital Encounter Non-[place] [phone] Arrived 09/24/2024 4:00 PM EDT Office Visit Cardiology at [address] [place] [phone] Nathaniel Keita MD [facility] [place] [address] 11/28/2024 10:30 AM EDT Office Visit Cardiology at [address] [place] [address] Ruben Hartman, LAURA [facility] [place] [address] documented as of this encounter Visit Diagnoses Not on filedocumented in this encounter Care Teams Ladle Operator Relationship Specialty Start Date End Date Alexander Adams MD [address] [place] [address] PCP - General 04/06/12 07/26/23 documented as of this encounter
--- OUTSIDE RECORDS SUMMARY | 2024-05-03 21:59 | XMS_ITS | Encounter Summary ---
Author Organization [facility] [place] [address] Care Team Providers Care Scaffolder Name Role Phone Alexander Adams MD Primary Care Provider [phone] Encounter Details Date Type Department Care Team (Latest Contact Info) Description 07/06/2012 9:19 AM EDT - 07/06/2012 11:59 PM EDT Hospital [place] [phone] Chris Chatman MD [facility] [place] [address] Type I (juvenile type) diabetes mellitus with [...] 01/20/2012 03/12/2013 Diabetic Supplies, Miscellan. Misc by [facility].(Non-Drug; Combo Route) route. Insulin Pump Supplies and Diabetes Testing Supplies. Pt. Tests BS 4x/day. 90 day supply. Manually faxed to [employer] @[phone]. 12/13/2011 02/22/2013 simvastatin (ZOCOR) 20 mg tabletIndications:H [...] COMPACT TEST) Strp 6 strips by [facility].(Non-Drug; Combo Route) route 6 times daily. 4-6 times daily 6 Box 3 03/15/2011 05/08/2013 Insulin [place], Disposable, (BD INSULIN PEN NEEDLE UF SHORT) 31 X /16 Ndle by [facility].(Non-Drug; Combo Route) route. 03/31/2017 SUBCUTANEOUS INSULIN PUMP (INSULIN PUMP [id number] [facility]) by [facility].(Non-Drug; Combo Route) route. 03/31/2017 acetaminophen (TYLENOL) 325 [...] AM EDT Hospital Encounter Non-Invasive [place] [address] Arrived 09/24/2024 4:00 PM EDT Office Visit Cardiology at [address] [phone] Nathaniel Keita MD [facility] [place] [address] 11/28/2024 10:30 AM EDT Office Visit Cardiology at [address] [phone] Ruben Hartman, PA [facility] [place] [place] [address] documented as of this encounter Procedures Procedure [...] In Lab Chris Chatman MD URINE ORDERABLES [facility] * (ABNORMAL) Comprehensive metabolic panel (non-fasting) (07/06/2012 9:25 AM EDT) Glucose 295(H) 60 - 199 mg/dL [facility] Comment:Diabetes: >=200 mg/d L plus symptoms Blood Urea Nitrogen 19(H) 8 - 18 mg/dL [facility] Creatinine 1.16 0.70 - 1.20 mg/dL [facility] Comment: Please note that the pediatric reference intervals supplied above were not validated at [facility]. Results from pediatric [...] In Lab Chris Chatman MD CHEMISTRY ORDERABLES [facility] * (ABNORMAL) LDL Cholesterol, Direct (07/06/2012 9:25 AM EDT) LDL Cholesterol, Direct 114(H) <=99 mg/dL [facility] Comment: The National Cholesterol Education Program (NCEP) has set the following guidelines for LDL Cholesterol: Reference range: ?? Optimal: ?<100 mg/dL ?? Near Optimal/Above Optimal: ?? 100-129 mg/dL ?? Borderline high: ?130-159 mg/dL ?? High: ? 160-189 mg/dL ?? Very high: ?>hk=760 mg/dL REJI 2001: 285(19):0104-7778 Blood specimen (specimen) 07/06/2012 9:25 AM EDT 07/06/2012 9:46 AM EDT Narrative Resulting Agency Comment Spec In Lab Chris Chatman MD CHEMISTRY ORDERABLES Performing Organization Address [facility] de Phone Number [facility] * HDL/Cholesterol Profile (07/06/2012 9:25 AM EDT) Cholesterol, Total 187 <=199 mg/dL [facility] Comment: Recommendations of the NCEP Adult Treatment Panel for the following risk cutoff thresholds for the [place] population: Desirable: <200 mg/dL Borderline High: 200-239 mg/dL High: > or = 240 mg/dL HDL Cholesterol 43 >=40 mg/dL [facility] Comment: Reference range: ??Low HDL: ?? < 40 mg/dL ??Normal: ?40-60 mg/dL ??Desirable: > 60 mg/dL REJI 2001; 285(19):2489-4317 Cholesterol/HDL Ratio 4.3 ratio [facility] Comment: A Cholesterol to HDL ratio below 4:1 is desirable. ??Studies suggest that increased CAD risk occurs at ratios above 5 for females and above 6 for men. ? [place] Heart Association ??(http://www.americanheart.org) ? Aurelia Int Med, 1994; 121:641 ? AM J Med, 1998; 105(1A):48S Blood specimen (specimen) 07/06/2012 9:25 AM EDT 07/06/2012 9:46 AM EDT Narrative Resulting Agency Comment Spec In Lab Chris Chatman MD CHEMISTRY ORDERABLES Performing Organization Address [facility] de Phone Number [facility] * VIT D Total Evaluation (07/06/2012 9:25 AM EDT) Vitamin D Total 25 OH 36 30 - 100 ng/mL [facility] Comment: Deficient <10 ng/mL Insufficient 10 to [...] In Lab Chris Chatman MD CHEMISTRY ORDERABLES [facility] * (ABNORMAL) Hemoglobin A1c (07/06/2012 9:25 AM EDT) Hemoglobin A1c 7.8(H) 4.3 - 6.1 % [facility] Comment: The [place] Diabetes Association (ADA) has stated that HbA1c [...] 2013:36;suppl 1:S11-S66. Estimated Average Glucose 177 mg/dL [facility] Comment: eAG equivalents for HbA1c percentages: HbA1c(%) [...] into estimated average glucose values. ??Diabetes Care 2008:31(8):7302-9859. 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
--- OUTSIDE RECORDS SUMMARY | 2024-05-03 21:59 | XMS_ITS | Encounter Summary ---
[place] [address] Care Team Providers Care Bar Pilot Name Role Phone Neva Pugh MD Primary Care Provider [phone] Encounter Details Date Type Department Care Team (Late st Contact Info) Description 01/05/2012 [place] [address] Melissa Cleary MD Social History Tobacco Use [...] AM EDT Hospital Encounter Non-[place] [phone] Arrived 09/24/2024 4:00 PM EDT Office Visit Cardiology at [address] [place] [phone] Nathaniel Keita MD [facility] [place] [address] 11/28/2024 10:30 AM EDT Office Visit Cardiology at [address] [place] [phone] Ruben Hartman, LAURA [facility] [place] [address] documented as of this encounter Visit Diagnoses Not on filedocumented in this encounter Care Teams Bar Pilot Relationship Specialty Start Date End Date Neva Pugh MD [address] [place] [address] PCP - General 02/24/10 04/05/12 documented as of this encounter
--- OUTSIDE RECORDS SUMMARY | 2024-05-03 21:59 | XMS_ITS | Encounter Summary ---
Author Organization [facility] [place] [address] Care Team Providers Care Truck Spotter Name Role Phone Neva Pugh MD Primary Care Provider [phone] Reason for Visit * Reason Onset Date Comments Medication Refill 08/16/2011 Encounter Details Date Type Department Care Team (Late st Contact Info) Description 08/16/2011 Refill [place] [phone] Jaylin Salcido APRN Social History Tobacco Use [...] AM EDT Hospital Encounter Non-Invasive [place] [phone] Arrived 09/24/2024 4:00 PM EDT Office Visit Cardiology at [address] [phone] Nathaniel Keita MD [facility] [place] [address] 11/28/2024 10:30 AM EDT Office Visit Cardiology at [address] [place] [address] Ruben Hartman, PA [facility] [place] [address] documented as of this encounter Visit Diagnoses Not on filedocumented in this encounter Care Teams Truck Spotter Relationship Specialty Start Date End Date Neva Pugh MD [address] [place] [address] PCP - General 02/24/10 04/05/12 documented as of this encounter
--- OUTSIDE RECORDS SUMMARY | 2024-05-03 21:59 | XMS_ITS | Encounter Summary ---
Author Organization [facility] [place] [address] Care Team Providers Care Business And Marketing Teacher Name Role Phone Charleen Field MD Primary Care Provider [phone] Reason for Visit * Reason Comments Follow-up Encounter Details Date Type Department Care Team (Late st Contact Info) Description 01/06/2012 9:10 AM EDT Follow-Up Cardiology at [address] [phone] Thaddeus Cespedes RN Andrus, Bruce W, MD [facility] [place] [address] Fatigue (Primary Dx); Hypertension Discharge Disposition: Home [...] Quezada MD - 01/06/2012 9:53 AM EDT [facility] General [...] 3 ??? SUBCUTANEOUS INSULIN PUMP (INSULIN PUMP [id number] [facility]) by [facility].(Non-Drug; Combo Route) route. ??? aspirin 81 mg [...] daily,PRN ??? Diabetic Supplies, Miscellan. Misc by [facility].(Non-Drug; Combo Route) route. Insulin Pump Suppliesand Diabetes Testing Supplies. Pt. Tests BS 4x/day. 90 day supply. Manually faxed to [employer] @ . ??? Blood Sugar Diagnostic, Drum (ACCU-CHEK COMPACT TEST) Strp 6 strips by [facility].(Non-Drug; Combo Route) route 6 times daily. 4-6 times daily 6 Box 3 ??? insulin aspart (NOVOLOG) 100 unit/mL vial injection Inject 50-60 Units subcutaneously daily. 60mL PRN ??? Insulin [place], Disposable, (BD INSULIN PEN NEEDLE UF SHORT) 31 X 5/16 Ndle by [facility].(Non-Drug; Combo Route) route. Allergies: Lisinopril, Ibandronate sodium, Amiodarone, Codeine phos, Propoxyphene n- acetaminophen, Adhesive tape, Kiwi (actinidia chinensis), Alendronate sodium, Celecoxib, Gabapentin and Ezetimibe BP 150/90 Pulse 84 Ht 172.7 cm (5' 7.99) Wt 90.855 kg (200 lb 4.8 oz) BMI 30.46 kg/m2 SpO2 98% Interval History: Liane is seen in followup for her cardiovascular problems. These include [id number]-wwuqapxy cardiac arrest with implantation of ICD and [...] She will discuss this more with the canoe maker. She self-discontinued her Lasix entirely because of [...] have discontinued her Lasix. 2. ICD for [id number]-ce-okoijqdi cardiac arrest: Good function. She is not [...] AM EDT Hospital Encounter Non-Invasive Cardiology Lab [facility] [place] [address] Arrived 09/24/2024 4:00 PM EDT Office Visit Cardiology at [address] [place] [address] [facility] [place] [address] 11/28/2024 10:30 AM EDT Office Visit Cardiology at [address] [place] [address] [facility] [place] [address] documented as of this encounter Results * Echo Transthoracic (Complete) (01/06/2012 2:30 PM EDT) Pathologist [employer] EF 60 [employer] SYSTEM Anatomical Region Laterality Modality Other 01/06/2012 Narrative 01/06/2012 2:42 PM EDT Procedure: ? Transthoracic Echocardiogram Patient: ? KELSEY LIANE Nayeli ? (Age): 1945(66) Med Rec#: ?[id number] ? Sex: ?F ? Site Loc: ?[facility] ? Ht / Wt: ??172(cm)/91(kg) Pt. Loc: ? Echo Lab ? BSA: ?2.09 Study Date: ?01/06/2012 ? Pt. Type: Outpatient Tape: ? Referring: Milind Quezada ([id number]) Door Attendant: Erendira Keller ALISE Diagnosis: ??CAD, unspecified (414.4) ??Fatigue (780.79) CPT Code(s): ??Echo Full (79118), ??Spectral Doppler (40323), ??Color Doppler (97390), ??Definity (00826KG), Indication(s): ??Fatigue Rhythm: HR ?BP 85 ?145/80 [...] ? Mid-Inferior ?Normal ? Mid-Inferoseptal ?Normal ? [place]-Septal ? Normal ? [place]-Anterior ? Normal ? [place]-Lateral ?Normal ? [place]-Inferior ? Normal ? [place]-Tip ?Normal ? Chambers ?Value ?Units (Range) ? [...] 14:41:31 Images reviewed and interpretation verified [facility] Cardiac Ultrasound Laboratory Procedure Note Alexander Abernathy MD - 01/06/2012 Procedure: Transthoracic Echocardiogram Patient: KELSEY MATHIS(Age): 1945(66) Med Rec#: [id number] Sex: F Site Loc: [facility] Ht / Wt: 172(cm)/91(kg) Pt. Loc: Echo Lab BSA: 2.09 Study Date: 01/06/2012 Pt. Type: Outpatient Tape: Referring: Milind Quezada ([id number]) Door Attendant: Erendira Keller RDCS Diagnosis: CAD, unspecified (414.4) Fatigue (780.79) CPT Code(s): Echo Full (97720), Spectral Doppler (94943), Color Doppler (68214), Definity (32372ES), Indication(s): Fatigue Rhythm: HR BP 85 145/80 [...] Normal Mid-Posterolateral Normal Mid-Inferior Normal Mid-Inferoseptal Normal [place]-Septal Normal [place]-Anterior Normal [place]-Lateral Normal [place]-Inferior Normal [place]-Tip Normal Chambers Value Units (Range) LV EF [...] 14:41:31 Images reviewed and interpretation verified [facility] Cardiac Ultrasound Laboratory Milind Quezada MD ECHO ORDERABLES documented in this encounter Visit Diagnoses Diagnosis Fatigue- Primary Other malaise and fatigue Hypertension Unspecified essential hypertension Fatigue Other malaise and fatigue documented in this encounter Care Teams Business And Marketing Teacher Relationship Specialty Start Date End Date Charleen Field MD [address] [place] [address] PCP - General 02/24/10 04/05/12 documented as of this encounter
--- OUTSIDE RECORDS SUMMARY | 2024-05-03 21:59 | XMS_ITS | Encounter Summary ---
[place] [address] Care Team Providers Care Quality Improvement Specialist Name Role Phone Neva Pugh MD Primary Care Provider Reason for Visit * Reason Comments Atrial Fibrillation Encounter Details Date Type Department Care Team (Late st Contact Info) Description 01/25/2011 12:40 PM EDT Follow-Up Cardiology at [address] [phone] Candie Valiente PA Ventricular fibrillation (Primary Dx) [...] arrest. She has no device related complaints. [place]pler dizzy over the summer. Her nail artist, Milind Beasley,changed her lasix to PRN and [...] - 07/02/2009 Medtronic John II VR Model# [id number], Serial# [id number] ??? CHD, s/p arrest and 2v CABG [...] Medtronic Sprint Quattro Model# 6947-58 cm Serial #[id number] Bipolar, steroid-tipped, active-fixation IS-1, DF-1 lead Access: Left axillary vein Location: Right ventricular apex R wave, ICD: 8.0 mV Pacing threshold, ICD: 1.0 V at 0.5 ms Impedance, ICD: 532 ohms HVB Impedance 33 ohms SVC Impedance 39 ohms Pace the diaphragm at 10 V: No Pulse generator: Medtronic John II VR Model# [id number] Serial# [id number] Single-chamber ICD Location: Subcutaneous Parameters: VF detection rate: >200bpm VF therapy: ATP during charging,30J,35Jx5 FVT detection rate: 200-250bpm FVT therapy: Burst(1),30J,35Jx4 VT detection rate:182-200bpm VT therapy:Burst(3),20J,35Jx4 Enhancement: Wavelet, VT Monitor Bradycardia pacing: VVI 40 Short V-V intervals: 0 Pacing percentages: VS 100% Histogram is well distributed. Underlying rhythm: SR 80bpm NE 200ms (pt states this is normal for [...] July 2011. Provider: Candie Valiente Provider #: [id number] Consult attending physician: Norm Garcia MD documented in this encounter Plan of Treatment Upcoming Encounters Date Type Department Care Team (Late st Contact Info) Description 07/25/2024 10:00 AM EDT Hospital Encounter Non[place] [address] Arrived 09/24/2024 4:00 PM EDT Office Visit Cardiology at [address] [phone] Nathaniel Keita MD [facility] [place] [address] 11/28/2024 10:30 AM EDT Office Visit Cardiology at [address] [place] [address] Ruben Hartman, LAURA [facility] [place] [address] documented as of this encounter Visit Diagnoses Diagnosis Ventricular fibrillation- Primary documented in this encounter Care Teams Quality Improvement Specialist Relationship Specialty Start Date End Date Neva Pugh MD [address] [place] [address] PCP - General 02/24/10 04/05/12 documented as of this encounter
--- OUTSIDE RECORDS SUMMARY | 2024-05-03 21:59 | XMS_ITS | Encounter Summary ---
[place] [address] Care Team Providers Care Supervisor Refractory Products Name Role Phone Neva Pugh MD Primary Care Provider [phone] Reason for Visit * Reason Comments PDR 1 yr PDR OU Encounter Details Date Type Department Care Team (Late st Contact Info) Description 01/06/2012 10:30 AM EDT [place] [phone] Melissa Cleary MD PDR (proliferative diabetic retinopathy) [...] 10:30 AM EDT >> MELISSA CLEARY MD [facility] Jan 06, 2012 11:36 AM PDR post PRP with fine involution OU. >> Parker Ferguson [facility] Jan 06, 2012 10:31 AM 1 yr PDR OU ck, s/p PRP OU, states no change with vision, denies pain/flashes/floaters. documented in this encounter Plan of Treatment Upcoming Encounters Date Type Department Care Team (Late st Contact Info) Description 07/25/2024 10:00 AM EDT Hospital Encounter Non[place] [address] Arrived 09/24/2024 4:00 PM EDT Office Visit Cardiology at [address] [phone] Nathaniel Keita MD [facility] [place] [address] 11/28/2024 10:30 AM EDT Office Visit Cardiology at [address] [phone] Ruben Hartman, LAURA [facility] [place] [address] documented as of this encounter Visit Diagnoses Diagnosis PDR (proliferative diabetic retinopathy)- Primary Type II or unspecified type diabetes mellitus with ophthalmic manifestations, not stated as uncontrolled documented in this encounter Care Teams Supervisor Refractory Products Relationship Specialty Start Date End Date Neva Pugh MD [address] [place] [address] PCP - General 02/24/10 04/05/12 documented as of this encounter
--- OUTSIDE RECORDS SUMMARY | 2024-05-03 21:59 | XMS_ITS | Encounter Summary ---
Author Organization [facility] [place] [address] Care Team Providers Care Building Repair Maintenance Supervisor Name Role Phone Neva Pugh MD Primary Care Provider [phone] Reason for Visit * Reason Comments Medication Refill Encounter Details Date Type Department Care Team (Late st Contact Info) Description 01/14/2012 Refill [place] [phone] Elisha Nichols MD Social History Tobacco Use [...] AM EDT Hospital Encounter Non-[place] [phone] Arrived 09/24/2024 4:00 PM EDT Office Visit Cardiology at [address] [place] [phone] Nathaniel Keita MD [facility] [place] [address] 11/28/2024 10:30 AM EDT Office Visit Cardiology at [address] [place] [address] Ruben Hartman, LAURA [facility] [place] [address] documented as of this encounter Visit Diagnoses Not on filedocumented in this encounter Care Teams Building Repair Maintenance Supervisor Relationship Specialty Start Date End Date Neva Pugh MD [address] [place] [address] PCP - General 02/24/10 04/05/12 documented as of this encounter
--- OUTSIDE RECORDS SUMMARY | 2024-05-03 21:59 | XMS_ITS | Encounter Summary ---
[place] [address] Care Team Providers Care Keno Manager Name Role Phone Alexander Adams MD Primary Care Provider [phone] Reason for Visit * Reason Comments Diabetes Encounter Details Date Type Department Care Team (Late st Contact Info) Description 07/06/2012 9:30 AM EDT Office [place] [phone] Elisha Nichols MD Type I (juvenile type) [...] and 10 p.m. 1.1. Total basal 28.05. Jfvijkm-rl-lbrh 1:10. Correction factor 25. Target 95 to 125. Complications: dentist-01/13 ; eyes- PDR 01/13 ; Cr-1.16, 07/15 ; ma-8, 07/15 ; neuropathy-Charcot feet ; CAD-CABG 2011 ; lipids- TChol 187, HDL-43 , LDL-114, 07/15 DM health maintenance: beta beto-metoprolol 25 ; ASA 81 ; SLOANE/ARB-diovan 40 ; statin-sshhwbdwakj32 ; flu shot-2011 ; pneomovax-had one with [...] 5 ??? Diabetic Supplies, Miscellan. Misc by [facility].(Non-Drug; Combo Route) route. Insulin Pump Suppliesand Diabetes Testing Supplies. Pt. Tests BS 4x/day. 90 day supply. Manually faxed to [facility] @ . ??? simvastatin (ZOCOR) 20 mg [...] COMPACT TEST) Strp [address] [facility].(Non-Drug; Combo Route) route 6 times daily. 4-6 times daily 6 [address] ??? Insulin [place], Disposable, (BD INSULIN PEN NEEDLE UF SHORT) 31 X 08/[address] [facility].(Non-Drug; Combo Route) route. ??? SUBCUTANEOUS INSULIN PUMP (INSULIN PUMP [id number] [facility] by [facility].(Non-Drug; Combo Route) route. ??? [...] AM EDT Hospital Encounter Non-[place] [address] Arrived 09/24/2024 4:00 PM EDT Office Visit Cardiology at [address] [phone] Nathaniel Keita MD [facility] [place] [address] 11/28/2024 10:30 AM EDT Office Visit Cardiology at [address] [phone] Ruben Hartman PA [facility] [place] [address] documented as of this encounter Results * (ABNORMAL) Hemoglobin A1c (10/09/2012 10:01 AM EDT) [facility] Signature Hemoglobin A1c 8.9(H) 4.3 - 6.1 % [facility] Comment: The [place] Diabetes [employer] (ADA) has stated that HbA1c [...] 2013:36;suppl 1:S11-S66. Estimated Average Glucose 209 mg/dL [facility] Comment: eAG equivalents for HbA1c percentages: [...] into estimated average glucose values. ??Diabetes Care 2008:31(8):9688-9874. Blood specimen (specimen) 10/09/2012 10:01 AM EDT 10/09/2012 10:09 AM EDT Narrative Resulting Agency Comment Spec In Lab Elisha Nichols MD CHEMISTRY ORDERAB LES [facility] documented in this encounter Visit Diagnoses [...] uncontrolled documented in this encounter Care Teams Keno Manager Relationship Specialty Start Date End Date Alexander Adams MD [address] [place] [address] PCP - General 04/06/12 07/26/23 documented as of this encounter
--- OUTSIDE RECORDS SUMMARY | 2024-05-03 22:00 | XMS_ITS | Encounter Summary ---
Author Organization [facility] Address [address] [place] [address] Care Team Providers Care Food Broker Name Role Phone Alexander Adams MD Primary Care Provider [phone] Encounter Details Date Type Department Care Team (Late st Contact Info) Description 11/13/2020 Lab Requisition [facility] Pathology & Laboratory Medicine - [facility] [address] [place] [address] Domenico Perez MD [address] [place] [address] Encounter for other general examination Social [...] Name Priority Date/Time Associated Diagnosis Comments NON LEGAL RECORDS MANAGER/FNA CYTOLOGY Today 11/12/2020 8:30 EDT Encounter for other general examination documented in this encounter Results * NON LEGAL RECORDS MANAGER/FNA CYTOLOGY (11/12/2020 8:30 EDT) Note to Patient The following pathology results have been interpreted by your pathologist and may be available to you before your health provider has had the opportunity to review them. Please allow time for your provider to receive these results and explore management options, if applicable. 11/13/2020 15:16 [facility] Final Diagnosis PAROTID, RIGHT MASS, FINE-NEEDLE ASPIRATION: - Nondiagnostic specimen. See comment. 11/13/2020 15:16 [facility] Diagnosis Comment The aspirate consists of blood and granular amorphous debris and extremely rare degenerated epithelioid cells that are difficult to further characterize. The scant cellularity precludes definitive diagnosis. 11/13/2020 15:16 [facility] Attestation By the signature below, the attending physician certifies that they have personally conducted a gross and/or microscopic examination of the described specimens and rendered or confirmed the above diagnosis. 11/13/2020 15:16 [facility] at 1516 Clinical History Right parotid mass. 11/13/2020 15:16 [facility] Gross Description A. One vial of CytoLyt was received and processed by selective cellular enhancement technique. 11/13/2020 15:16 [facility] Performing Lab [facility] 11/13/2020 15:16 [facility] Scanned Images 11/13/2020 15:16 [facility] Fine Needle Aspirate PAROTID GLAND STRUCTURE / Unknown 11/12/2020 8:30 EDT 11/13/2020 7:36 EDT us Domenico Perez MD PATHOLOGY ORDERABLES Final Resul t [facility] [address] [place] [address] documented in this encounter Visit Diagnoses Diagnosis Encounter for other general examination documented in this encounter Care Teams Food Broker Relationship Specialty Start Date End Date Alexander Adams MD [address] [place] [address] PCP - General 10/23/12 documented as of this encounter
--- OUTSIDE RECORDS SUMMARY | 2024-05-03 22:00 | XMS_ITS | Encounter Summary ---
Author Organization [facility] Address [address] [place] [address] Care Team Providers Care Sanding Machine Tender Name Role Phone Neva Pugh MD Primary Care Provider [phone] Encounter Details Date Type Department Care Team (Late st Contact Info) Description 03/02/2012 Results Only [facility] Laboratory Services - [facility] ([facility] [address] [place] [address] Alexander Adams MD [address] [place], [place] [phone] Social History Tobacco Use Types Packs/Day Years [...] ? LIANE OMER ? Accession #: ? [id number] ? : ? 1945 (Age: 66) ??F [...] lymphohistiocytic infiltrate in the superficial dermis. ??(Dr. Valentine)/[facility] Document reviewed and electronically signed by: SOLOMON [...] ORDERABLES Final Res ult [facility] [address] [place] [address] documented in this encounter Visit Diagnoses Not on filedocumented in this encounter Care Teams Sanding Machine Tender Relationship Specialty Start Date End Date Neva Pugh MD [address] [place] [id number] PCP - General 03/12/09 10/22/12 documented as of this encounter
--- OUTSIDE RECORDS SUMMARY | 2024-05-03 22:00 | XMS_ITS | Encounter Summary ---
Author Organization [facility] Address [address] [place] [address] Care Team Providers Care Human Resources Recruiter Name Role Phone Alexander Adams MD Primary Care Provider Encounter Details Date Type Department Care Team (Latest Contact Info) Description 02/12/2015 11:29 EST - 02/12/2015 23:59 EST Hospital Encounter [address] [address] Unknown, Provider, Discharge Disposition: Home or Self [...] Code Departure Means Destination Home or Self Fpc documented in this encounter Plan of Treatment Not on file documented as of this encounter Visit Diagnoses Not on filedocumented in this encounter Care Teams Human Resources Recruiter Relationship Specialty Start Date End Date Alexander Adams MD [address] [place] [address] PCP - General 10/23/12 documented as of this encounter
--- OUTSIDE RECORDS SUMMARY | 2024-05-03 22:00 | XMS_ITS | Encounter Summary ---
Author Organization [facility] Address [address] [place] [address] Care Team Providers Care Photovoltaic Solar Cell Designer Name Role Phone Alexander Adams MD Primary Care Provider [phone] Encounter Details Date Type Department Care Team ([facility] st Contact Info) Description 02/12/2015 Results Only [facility] [phone] Kan King, DPNayeli [address] [place] [phone] Social History Tobacco Use Types Packs/Day [...] ? LIANE OMER ? Accession #: ? [id number] ? : ? 1945 (Age: 69) ??F [...] Banerjee 02/13/2015 12:06 PM End of Report [facility] 02/12/2015 19:5 1 EST 02/12/2015 19:51 EST us Kan King DPM PATHOLOGY ORDERABLES Fin al Result [facility] [address] [place] [address] documented in this encounter Visit Diagnoses Not on filedocumented in this encounter Care Teams Photovoltaic Solar Cell Designer Relationship Specialty Start Date End Date Alexander Adams MD [address] [place] [address] PCP - General 10/23/12 documented as of this encounter
--- OUTSIDE RECORDS SUMMARY | 2024-05-03 22:00 | XMS_ITS | Encounter Summary ---
[place] [address] Care Team Providers Care Green Meat Packer Name Role Phone Neva Pugh MD Primary Care Provider [phone] Reason for Visit * Reason Onset Date Comments Medication Refill 12/17/2010 Encounter Details Date Type Department Care Team (Late st Contact Info) Description 12/17/2010 Refill [place] [phone] Elisha Nichols MD Social History Tobacco Use [...] AM EDT Hospital Encounter Non-Invasive [place]iology [place] [phone] Arrived 09/24/2024 4:00 PM EDT Office Visit Cardiology at [address] [phone] Nathaniel Keita MD [facility] [place] [address] 11/28/2024 10:30 AM EDT Office Visit Cardiology at [address] [place] [address] Ruben Hartman, PA [facility] [place] [address] documented as of this encounter Visit Diagnoses Not on filedocumented in this encounter Care Teams Green Meat Packer Relationship Specialty Start Date End Date Neva Pugh MD [address] [place] [address] PCP - General 02/24/10 04/05/12 documented as of this encounter
--- OUTSIDE RECORDS SUMMARY | 2024-05-03 22:00 | XMS_ITS | Encounter Summary ---
Author Organization [facility] Address [address] [place] [address] Care Team Providers Care Inspector And Tester Name Role Phone Alexander Adams MD Primary Care Provider [phone] Encounter Details Date Type Department Care Team (Latest Contact Info) Description 11/22/2014 15:36 EDT - 11/22/2014 23:59 EDT Hospital Encounter [address] [address] Unknown, Provider, Discharge Disposition: Home or Self [...] on filedocumented in this encounter Care Teams Inspector And Tester Relationship Specialty Start Date End Date Alexander Adams MD [address] [place] [address] PCP - General 10/23/12 documented as of this encounter
--- OUTSIDE RECORDS SUMMARY | 2024-05-03 22:00 | XMS_ITS | Encounter Summary ---
Author Organization [facility] Address [address] [place] [address] Care Team Providers Care Application Support Intern Name Role Phone Alexander Adams MD Primary Care Provider [phone] Encounter Details Date Type Department Care Team ([facility] st Contact Info) Description 11/22/2014 Results Only [facility] [phone] Kan King, DPNayeli [address] [place] [phone] Social History Tobacco Use Types Packs/Day [...] ? LIANE OMER ? Accession #: ? [id number] ? : ? 1945 (Age: 69) ??F [...] only. 11/25/2014 9:25 AM End of Report [facility] 11/22/2014 8:39 EDT 11/22/2014 8:39 EDT us Kan King DPM PATHOLOGY ORDERABLES Fin al Result Performing Organization Address City/State/[facility] Co de Phone Number [facility] [address] [place] [address] documented in this encounter Visit Diagnoses Not on filedocumented in this encounter Care Teams Application Support Intern Relationship Specialty Start Date End Date Alexander Adams MD [address] [place] [address] PCP - General 10/23/12 documented as of this encounter
--- OUTSIDE RECORDS SUMMARY | 2024-05-03 22:00 | XMS_ITS | Encounter Summary ---
[place] [address] Care Team Providers Care Specialist Icu Name Role Phone Neva Pugh MD Primary Care Provider [phone] Encounter Details Date Type Department Care Team (Late st Contact Info) Description 03/24/2010 7:40 AM EST Follow-Up Cardiology at [address] [address] Milind Beasley MD [facility] [place] [address] Discharge Disposition: Home Social History Tobacco Use [...] AM EDT Hospital Encounter Non-[place] [phone] Arrived 09/24/2024 4:00 PM EDT Office Visit Cardiology at [address] [address] Nathaniel Keita MD [facility] [place] [address] 11/28/2024 10:30 AM EDT Office Visit Cardiology at [address] [place] [phone] Ruben Hartman, LAURA [facility] [place] [address] documented as of this encounter Visit Diagnoses Not on filedocumented in this encounter Care Teams Specialist Icu Relationship Specialty Start Date End Date Neva Pugh MD [address] [place] [address] PCP - General 02/24/10 04/05/12 documented as of this encounter
--- OUTSIDE RECORDS SUMMARY | 2024-05-03 22:00 | XMS_ITS | Encounter Summary ---
[place] [address] Care Team Providers Care Director Of Testing Name Role Phone Neva Field MD Primary Care Provider Reason for Visit * Reason Comments Follow-up Encounter Details Date Type Department Care Team (Late st Contact Info) Description 12/21/2010 10:10 AM EDT Follow-Up Cardiology at [address] [address] Milind Quezada MD [facility] [place] [address] Coronary artery disease; History of sudden cardiac [...] Quezada MD - 12/21/2010 12:02 PM EDT [facility] Cardiology Office Visit ID/PMH: The patient is a 65 y.o. followed by NEVA FIELD MD with the following medical problems: Patient Active Problem List Diagnoses ??? Ventricular fibrillation 06/21/2009 [facility]--- VF presenting, ROSC post shock by EMS, intubated; Dual chamber ICD - 07/02/2009 Medtronic John II VR Model# [id number], Serial# [id number] ??? CHD, s/p arrest and 2v CABG [...] is now 18 months out following her ND and out of hopsital arrest. She's done [...] This be done by Dr. Jon in [facility]. She asks about the advisability of epidural spinal injections which she would pursue at [facility]. She's hadno bleeding problems. Review of Systems: [...] mouth nightly. 90 tablet 3 ??? Insulin [place], Disposable, (BD INSULIN PEN NEEDLE UF SHORT) 31 X 5/16 Ndle by [facility].(Non-Drug; Combo Route) route. ??? SUBCUTANEOUS INSULIN PUMP (INSULIN PUMP [id number] [facility]) by [facility].(Non-Drug; Combo Route) route. ??? [...] Encounter Non-Invasive Cardiology Lab [facility] [place] [address] Arrived 09/24/2024 4:00 PM EDT Office Visit Cardiology at [address] [place] [phone] Nathaniel Keita MD [facility] [place] [address] 11/28/2024 10:30 AM EDT Office Visit Cardiology at [address] [place] [phone] Ruben Hartman, LAURA [facility] [place] [address] documented as of this encounter Visit Diagnoses Diagnosis Coronary artery disease Coronary atherosclerosis of unspecified type of vessel, [place] or graft History of sudden cardiac arrest Personal history of sudden cardiac arrest Ventricular fibrillation documented in this encounter Care Teams Director Of Testing Relationship Specialty Start Date End Date Neva Field MD [address] [place] [address] PCP - General 02/24/10 04/05/12 documented as of this encounter
--- OUTSIDE RECORDS SUMMARY | 2024-05-03 22:00 | XMS_ITS | Encounter Summary ---
Author Organization [facility] Address [address] [place] [address] Care Team Providers Care Blanket Maker Name Role Phone Neva Pugh MD Primary Care Provider [phone] Encounter Details Date Type Department Care Team (Late st Contact Info) Description 07/31/2010 Results Only [facility] Laboratory Services - [facility] ([facility]) [address] [place] [address] Kan King, [facility] [address] [place] [address] Social History Tobacco Use Types [...] KAN, LIANE Tyler ? Accession #: ? [id number] ? : ? 1945 (Age: 64) ??F [...] ??The specimen is longitudinally trisected and two major account representative sections are submitted in one ?? cassette following decalcification. ??/adi ? End of Report ? [facility] SEGAL 07/31/2010 07/31/2010 17: 53 EDT us Kan King DPM PATHOLOGY ORDERABLES Fin al Result Performing Organization Address City/State/[facility] Co de Phone Number [facility] [address] [place] [address] documented in this encounter Visit Diagnoses Not on filedocumented in this encounter Care Teams Blanket Maker Relationship Specialty Start Date End Date Neva Pugh MD [address] [place] [address] PCP - General 03/12/09 10/22/12 documented as of this encounter
--- OUTSIDE RECORDS SUMMARY | 2024-05-03 22:00 | XMS_ITS | Encounter Summary ---
[place] [address] Care Team Providers Care School Fundraising Director Name Role Phone Neva Pugh MD Primary Care Provider Reason for Visit * Reason Comments Diabetes Encounter Details Date Type Department Care Team (Late st Contact Info) Description 07/20/2010 4:00 PM EDT Office [place] [phone] Jayiln Salcido APRN Diabetes; Hypertension Discharge Disposition: Home [...] Progress Notes * Jaylin Salcido APRN - 07/20/2010 6:42 PM EDT DATE OF [...] appointment scheduled tomorrow with Dr. King in [facility] for open area on right forefoot. No redness. No pus. No change in diabetes regimen. Reviewed prevention and treatment of hypoglycemia. She will be traveling to [place] and to [place] later this year. She does a very [...] AM EDT Hospital Encounter Non-Invasive Cardiology Lab Replaced By [facility] [place] [address] Arrived 09/24/2024 4:00 PM EDT Office Visit Cardiology at [address] [address] Nathaniel Keita MD [facility] [place] [address] 11/28/2024 10:30 AM EDT Office Visit Cardiology at [address] [address] Ruben Hartman PA [facility] [address] [place] [address] documented as of this encounter Procedures Procedure Name Priority Date/Time Associated Diagnosis Comments LDL CHOLESTEROL, DIRECT Routine 07/20/2010 2:20 PM EDT Diabetes HEMOGLOBIN A1C Routine 07/20/2010 2:20 PM EDT Diabetes documented in this encounter Results * Vitamin D 25 hydroxy (10/19/2010 12:28 PM EDT) 25-Hydroxy D2 <4.0 ng/mL CERNER MILLENNIUM Comment: Test Performed by: [facility] [place] [address] Law Office Manager: Daniela Thakur, Ph.D. 25-Hydroxy D3 33 ng/mL CERNER MILLENNIUM Comment: Test Performed by: [facility] [place] [address] Law Office Manager: Daniela Thakur, Ph.D. Vitamin D Total 25 OH 33 ng/mL [facility] Comment: -- REFERENCE VALUE -- 25-HYDROXY D TOTAL (D2+D3) Optimum levels in the normal population are 25-80 Test Performed by: [facility] [place] [address] Law Office Manager: Daniela Thakur, Ph.D. Blood specimen (specimen) 10/19/2010 12:28 PM EDT 10/19/2010 1:09 PM EDT Chris Chatman MD CHEMISTRY ORDERABLES Performing Organization Address [facility] [[email or web address] de Phone Number [facility] * TSH (10/19/2010 12:28 PM EDT) Thyroid Stimulating Hormone 0.68 0.27 - 4.20 mcIU/mL [facility] MILLENNIUM Blood specimen (specimen) 10/19/2010 12:28 PM EDT 10/19/2010 12:34 PM EDT Chris Chatman MD CHEMISTRY ORDERABLES Performing Organization Address [facility] [[email or web address]] de Phone Number [facility] * (ABNORMAL) Basic metabolic panel (10/19/2010 12:28 [...] PM EDT Chris Chatman MD CHEMISTRY ORDERABLES [facility] * (ABNORMAL) Hemoglobin A1c (10/19/2010 12:28 PM EDT) Hemoglobin A1c 8.2(H) 4.3 - 6.1 % [facility] Estimated Average Glucose 189 mg/dL [facility] Comment: eAG [...] into estimated average glucose values. ??Diabetes Care 2008:31(8):4839-2760. Blood specimen (specimen) 10/19/2010 12:28 PM EDT 10/19/2010 12:34 PM EDT Chris Chatman MD CHEMISTRY ORDERABLES [facility] * (ABNORMAL) LDL cholesterol, direct (07/20/2010 2:20 PM EDT) LDL Cholesterol, Direct 113(H) <=99 mg/dL [facility] Comment: The National Cholesterol Education Program (NCEP) has set the following guidelines for LDL Cholesterol: Reference range: ?? Optimal: ?<100 mg/dL ?? Near Optimal/Above Optimal: ?? 100-129 mg/dL ?? Borderline high: ?130-159 mg/dL ?? High: ? 160-189 mg/dL ?? Very high: ?>le=858 mg/dL REJI 2001: 285(27):6680-7885 Blood specimen (specimen) 07/20/2010 2:20 PM EDT 07/20/2010 2:24 PM EDT Chris Chatman MD CHEMISTRY ORDERABLES [facility] * (ABNORMAL) Hemoglobin A1c (07/20/2010 2:20 PM EDT) Hemoglobin A1c 7.5(H) 4.3 - 6.1 % [facility] Estimated Average Glucose 169 mg/dL [facility] Comment: eAG [...] the ADA website: ??http://professional.diabetes.org/glucosecalculator.aspx Reference: Alfred JEFFRIES, Rias J, Sregio R, et al. ??Translating the A1C assay into estimated average glucose values. ??Diabetes Care 2008:31(8):3042-7436. Blood specimen (specimen) 07/20/2010 2:20 PM EDT 07/20/2010 2:24 PM EDT Chris Chatman MD CHEMISTRY ORDERABLES Performing Organization Address City/State/ZIP Co az Phone Number [facility] documented in this encounter Visit Diagnoses Diagnosis Diabetes Type II or unspecified type diabetes mellitus without mention of complication, not stated as uncontrolled Hypertension Unspecified essential hypertension documented in this encounter Care Teams School Fundraising Director Relationship Specialty Start Date End Date Neva Pugh MD [address] [place] [address] PCP - General 02/24/10 04/05/12 documented as of this encounter
--- OUTSIDE RECORDS SUMMARY | 2024-05-03 22:00 | XMS_ITS | Encounter Summary ---
Author Organization [facility] Address [address] [place] [address] Care Team Providers Care Orchestra Director Name Role Phone Neva Pugh MD Primary Care Provider [phone] Encounter Details Date Type Department Care Team (Late st Contact Info) Description 10/20/2012 Results Only [facility] Laboratory Services - [facility] ([facility]) [address] [place] [address] Kan King, [facility] [address] [place] [address] Social History Tobacco Use Types [...] ? LIANE OMER ? Accession #: ? [id number] ? : ? 1945 (Age: 66) ??F [...] ORDERABLES Fin al Result Performing Organization Address City/State/[facility] Co de Phone Number [facility] [address] [place] [address] documented in this encounter Visit Diagnoses Not on filedocumented in this encounter Care Teams Orchestra Director Relationship Specialty Start Date End Date Neva Pugh MD [address] [place] [address] PCP - General 03/12/09 10/22/12 documented as of this encounter
--- OUTSIDE RECORDS SUMMARY | 2024-05-03 22:00 | XMS_ITS | Encounter Summary ---
Author Organization [facility] Address [address] [place] [address] Care Team Providers Care It Audit Manager Name Role Phone Alexander Adams MD Primary Care Provider [phone] Encounter Details Date Type Department Care Team (Late st Contact Info) Description 05/20/2021 Lab Requisition [facility] Pathology & Laboratory Medicine - [facility] [address] [place] [address] Domenico Perez MD [address] [place] [address] Encounter for other general examination Social [...] Name Priority Date/Time Associated Diagnosis Comments NON SCHOOL SUPERINTENDENT/FNA CYTOLOGY Today 05/19/2021 9:00 EST Encounter for other general examination documented in this encounter Results * NON SCHOOL SUPERINTENDENT/FNA CYTOLOGY (05/19/2021 9:00 EST) Note to Patient The following pathology results have been interpreted by your pathologist and may be available to you before your health provider has had the opportunity to review them. Please allow time for your provider to receive these results and explore management options, if applicable. 05/21/2021 13:17 [facility] Final Diagnosis A. PAROTID GLAND, RIGHT, MASS, FINE NEEDLE ASPIRATION: - Rare atypical cells. See comment. 05/21/2021 13:17 [facility] Diagnosis Comment Cytologic evaluation demonstrates a paucicellular specimen composed mostly of granular amorphous debris with rare degenerated epithelioid cells, histiocytes, and mixed inflammatory cells. The scant nature of the specimen precludes further characterization. Signs Cleaner slides of this case were reviewed at the intradepartmental consultation conference. 05/21/2021 13:17 [facility] Attestation There was significant resident/fellow involvement in the diagnostic evaluation of this case. By the signature below, the attending physician certifies that they have personally conducted a gross and/or microscopic examination of the described specimens and rendered or confirmed the above diagnosis. 05/21/2021 13:17 [facility] at [address] Clinical History Right parotid mass 05/21/2021 13:17 [facility] Gross Description A. One vial of CytoLyt was received and processed by selective cellular enhancement technique. 05/21/2021 13:17 [facility] Resident/Fell ow: Gayatri Ramsay MD 05/21/2021 13:17 [facility] Performing Lab [facility] 05/21/2021 13:17 [facility] Scanned Images 05/21/2021 13:17 [facility] Fine Needle Aspirate PAROTID GLAND STRUCTURE / Unknown 05/19/2021 9:00 EST 05/20/2021 6:44 EST us Domenico Perez MD PATHOLOGY ORDERABLES Final Resul t [facility] [address] [place] [address] documented in this encounter Visit Diagnoses Diagnosis Encounter for other general examination documented in this encounter Care Teams It Audit Manager Relationship Specialty Start Date End Date Alexander Adams MD [address] [place] [address] PCP - General 10/23/12 documented as of this encounter
--- OUTSIDE RECORDS SUMMARY | 2024-05-03 22:00 | XMS_ITS | Encounter Summary ---
Author Organization [facility] [place] [address] Care Team Providers Care Electrical Appliance Servicer Name Role Phone Neva Pugh MD Primary Care Provider Encounter Details Date Type Department Care Team (Late st Contact Info) Description 03/24/2010 [place] [address] Jaylin Salcido APRN Social History Tobacco Use [...] AM EDT Hospital Encounter Non-[place] [address] Arrived 09/24/2024 4:00 PM EDT Office Visit Cardiology at [address] [phone] Nathaniel Keita MD [facility] [place] [address] 11/28/2024 10:30 AM EDT Office Visit Cardiology at [address] [place] [address] Ruben Hartman PA [facility] [place] [address] documented as of this encounter Procedures Procedure [...] AM EST) Creatinine, Urine 149 mg/dL CE SADNRAER MILLENNIUM Albumin, Urine 23.4 mg/L JOSE Connor MILLENNIUM Albumin / Creatinin Ratio, Urine 16 mcg/mg Cr [facility]OM[facility]ON ISLASENNIUM Comment: Reference Range* Random collection (mcg/mg creatinine) Normal ?<30 Microalbuminuria ?? 30 - 300 Clinical Albuminuria ?? >300 *[place] Diabetes Association. Diabetic Nephropathy. Diabetes Care 1997;(Suppl 1):S24-S27 Exercise within 24 hour, infection, fever, CHF, marked hyperglycemia, and marked hypertension may elevate urinary albumin excretion over baseline values. Urine specimen (specimen) 03/24/2010 8:40 AM EST 03/24/2010 9:03 AM EST Jaylin Patito Goodrichreyesa IT PROFESSIONAL URINE ORDERABLES Performing Organization Address [facility] de Phone Number [facility] * (ABNORMAL) HDL CHOLESTEROL (03/24/2010 7:41 AM EST) Cholesterol, Total 267(H) <=199 mg/dL [facility] Comment: Recommendations of the NCEP Adult Treatment Panel for the following risk cutoff thresholds for the [place] population: Desirable: <200 mg/dL Borderline High: 200-239 mg/dL High: > or = 240 mg/dL HDL Cholesterol 46 >=40 mg/dL CER NER MILLENNIUM Comment: Reference range: ??Low HDL: ?? < 40 mg/dL ??Normal: ?40-60 mg/dL ??Desirable: > 60 mg/dL REJI 2001; 285(19):4591-6007 Cholesterol/HDL Ratio 5.8 ratio [facility] Comment: A Cholesterol to HDL ratio below 4:1 is desirable. ??Studies suggest that increased CAD risk occurs at ratios above 5 for females and above 6 for men. ? [place] Heart Association ??(http://www.americanheart.org) ? Aurelia Int Med, 1994; 121:641 ? AM J Med, 1998; 105(1A):48S Blood specimen (specimen) 03/24/2010 7:41 AM EST 03/24/2010 7:55 AM EST Jaylin Salcido IT PROFESSIONAL CHEMISTRY ORDERABLE S Performing Organization Address [facility] Co de Phone Number [facility] * (ABNORMAL) LDL CHOLESTEROL, DIRECT (03/24/2010 7:41 AM EST) LDL Cholesterol, Direct 188(H) <=99 mg/dL [facility]ILL[facility]NI[facility] Comment: The National Cholesterol Education Program (NCEP) has set the following guidelines for LDL Cholesterol: Reference range: ?? Optimal: ?<100 mg/dL ?? Near Optimal/Above Optimal: ?? 100-129 mg/dL ?? Borderline high: ?130-159 mg/dL ?? High: ? 160-189 mg/dL ?? Very high: ?>el=840 mg/dL REJI 2001: 28519):9565-5629 Blood specimen (specimen) 03/24/2010 7:41 AM EST 03/24/2010 7:55 AM EST Jaylin Patito Omari DUNCAN CHEMISTRY ORDERABLE S [facility] * (ABNORMAL) BASIC METABOLIC PANEL (NON-FASTING) (03/24/2010 [...] EST 03/24/2010 7:55 AM EST Jaylin Patito Laceya IT PROFESSIONAL CHEMISTRY ORDERABLE S Performing Organization Address [facility] de Phone Number [facility] * ASPARTATE AMINOTRANSFERASE (03/24/2010 7:41 AM EST) Aspartate Aminotransferase 29 0 - 30 unit/L [facility] Blood specimen (specimen) 03/24/2010 7:41 AM EST 03/24/2010 7:55 AM EST Jaylin E Bilotta IT PROFESSIONAL CHEMISTRY ORDERABLE S Performing Organization Address [facility] Co de Phone Number [facility] * ALANINE AMINOTRANSFERASE (03/24/2010 7:41 AM EST) Alanine Aminotransferase 30 0 - 30 unit/L CERNER MILLENNIUM Blood specimen (specimen) 03/24/2010 7:41 AM EST 03/24/2010 7:55 AM EST Jaylin Patito Goodrichjem MARSHALLN CHEMISTRY ORDERABLE S Performing Organization Address [facility] de Phone Number [facility] * (ABNORMAL) HEMOGLOBIN A1C (03/24/2010 7:41 AM EST) Hemoglobin A1c 8.0(H) 4.3 - 6.1 % [facility] Estimated Average Glucose 183 mg/dL [facility] Comment: eAG equivalents for HbA1c percentages: [...] into estimated average glucose values. ??Diabetes Care 2008:31(8):4020-7355. Blood specimen (specimen) 03/24/2010 7:41 AM EST 03/24/2010 7:55 AM EST Jaylin Patito Omari MARSHALLN CHEMISTRY ORDERABLE S Performing Organization Address [facility] de Phone Number THOMPSON TENA * REFLEX LAB-A-DIFF (03/24/2010 7:41 AM EST) [...] Gran Absolute 0.02 0.00 - 0.05 x10(3)/mcL CERNE MILLENNIUM Blood specimen (specimen) 03/24/2010 7:41 AM EST 03/24/2010 7:55 AM EST Jaylin Salcido IT PROFESSIONAL HEMATOLOGY ORDERABL ES [facility]OM[facility]ON TENA * CBC [...] EST 03/24/2010 7:55 AM EST Jaylin E Omari IT PROFESSIONAL HEMATOLOGY ORDERABL ES [facility] documented in this encounter Visit Diagnoses Not on filedocumented in this encounter Care Teams Electrical Appliance Servicer Relationship Specialty Start Date End Date Neva Pugh MD [address] [place] [address] PCP - General 02/24/10 04/05/12 documented as of this encounter
--- OUTSIDE RECORDS SUMMARY | 2024-05-03 22:00 | XMS_ITS | Referral Summary ---
Author Organization [facility] Address [address] [place] [address] Care Team Providers Care Red Leader Name Role Phone Alexander Adams MD Primary Care Provider [phone] Social History Tobacco Use Types Packs/Day Years Used Date Smoking Tobacco: Never Assessed Comments Unknown Sex and Gender Information Value Date Recorded Sex Assigned at Female 12/22/2020 11:08 EDT Legal Sex Female 18:47 EST Gender Identity Female 12/22/2020 11:08 EDT Sexual Orientation Not on file Plan of Treatment Not on file Insurance [facility] [place] Care Teams Red Leader Relationship Specialty Start Date End Date Alexander Adams MD [address] [place], [place] [id number] PCP - General 10/23/12
--- OUTSIDE RECORDS SUMMARY | 2024-05-03 22:00 | XMS_ITS | Encounter Summary ---
[place] [address] Care Team Providers Care Registrar Assistant Name Role Phone Neva Pugh MD Primary Care Provider [phone] Reason for Visit * Reason Onset Date Comments Medication Refill 08/27/2010 Encounter Details Date Type Department Care Team (Late st Contact Info) Description 08/27/2010 Refill [place] [phone] Elisha Nichols MD Social History Tobacco Use [...] AM EDT Hospital Encounter Non-[place] [phone] Arrived 09/24/2024 4:00 PM EDT Office Visit Cardiology at [address] [phone] Nathaniel Keita MD [facility] [address] 11/28/2024 10:30 AM EDT Office Visit Cardiology at [address] [place] [address] Ruben Hartman, [place] [facility] [address] documented as of this encounter Visit Diagnoses Not on filedocumented in this encounter Care Teams Registrar Assistant Relationship Specialty Start Date End Date Neva Pugh MD [address] [place] [address] PCP - General 02/24/10 04/05/12 documented as of this encounter
--- OUTSIDE RECORDS SUMMARY | 2024-05-03 22:00 | XMS_ITS | Encounter Summary ---
[place] [address] Care Team Providers Care Inserter Name Role Phone Neva Pugh MD Primary Care Provider [phone] Reason for Visit * Reason Onset Date Comments Labs Only 07/04/2010 Encounter Details Date Type Department Care Team (Late st Contact Info) Description 07/04/2010 Telephone [place] [address] Jaylin Salcido APRN Labs Only Social History [...] AM EDT Hospital Encounter Non-[place] [phone] Arrived 09/24/2024 4:00 PM EDT Office Visit Cardiology at [address] [place] [phone] Nathaniel Keita MD [facility] [place] [address] 11/28/2024 10:30 AM EDT Office Visit Cardiology at [address] [place] [address] Ruben Hartman PA [facility] [place] [address] documented as of this encounter Results * (ABNORMAL) LDL cholesterol, direct (07/20/2010 2:20 PM EDT) LDL Cholesterol, Direct 113(H) <=99 mg/dL [facility] Comment: The National Cholesterol Education Program (NCEP) has set the following guidelines for LDL Cholesterol: Reference range: ?? Optimal: ?<100 mg/dL ?? Near Optimal/Above Optimal: ?? 100-129 mg/dL ?? Borderline high: ?130-159 mg/dL ?? High: ? 160-189 mg/dL ?? Very high: ?>ch=948 mg/dL REJI 2001: 285(19):7737-5293 Blood specimen (specimen) 07/20/2010 2:20 PM EDT 07/20/2010 2:24 PM EDT Chris Chatman MD CHEMISTRY ORDERABLES [facility] * (ABNORMAL) Hemoglobin A1c (07/20/2010 2:20 PM EDT) Hemoglobin A1c 7.5(H) 4.3 - 6.1 % [facility] Estimated Average Glucose 169 mg/dL [facility] Comment: eAG equivalents for HbA1c [...] into estimated average glucose values. ??Diabetes Care 2008:31(8):9382-0582. Blood specimen (specimen) 07/20/2010 2:20 PM EDT 07/20/2010 2:24 PM EDT Chris Chatman MD CHEMISTRY ORDERABLES [facility] documented in this encounter Visit Diagnoses Diagnosis Diabetes- Primary Type II or unspecified type diabetes mellitus without mention of complication, not stated as uncontrolled documented in this encounter Care Teams Inserter Relationship Specialty Start Date End Date Neva Pugh MD [address] [place] [address] PCP - General 02/24/10 04/05/12 documented as of this encounter
--- OUTSIDE RECORDS SUMMARY | 2024-05-03 22:00 | XMS_ITS | Encounter Summary ---
[place] [address] Care Team Providers Care Rangeland Management Specialist Name Role Phone Neva Pugh MD Primary Care Provider [phone] Reason for Visit * Reason Comments Diabetes 18 months check for PDR OU. Pt thinks that [facility] OU is stable, no complaints. Encounter Details Date Type Department Care Team (Late st Contact Info) Description 12/10/2010 3:00 PM EDT [place] [phone] Melissa Cleary MD PDR (proliferative diabetic retinopathy) [...] 3:00 PM EDT >> MELISSA CLEARY MD [facility] Dec 10, 2010 5:01 PM No change in vision OU. >> MARIA GUADALUPE IVORY [facility] Dec 10, 2010 3:52 PM Description:Patient [...] AM EDT Hospital Encounter Non-[place] [address] Arrived 09/24/2024 4:00 PM EDT Office Visit Cardiology at [address] [address] Nathaniel Keita MD [facility] [place] [address] 11/28/2024 10:30 AM EDT Office Visit Cardiology at [address] [phone] Ruben Hartman PA [facility] [place] [address] documented as of this encounter Visit Diagnoses Diagnosis PDR (proliferative diabetic retinopathy)- Primary Type II or unspecified type diabetes mellitus with ophthalmic manifestations, not stated as uncontrolled documented in this encounter Care Teams Rangeland Management Specialist Relationship Specialty Start Date End Date Neva Pugh MD [address] [place] [address] PCP - General 02/24/10 04/05/12 documented as of this encounter
--- OUTSIDE RECORDS SUMMARY | 2024-05-03 22:00 | XMS_ITS | Encounter Summary ---
[place] [address] Care Team Providers Care Kiln Tester Name Role Phone Neva Pugh MD Primary Care Provider [phone] Reason for Visit * Reason Comments Diabetes Encounter Details Date Type Department Care Team (Late st Contact Info) Description 10/19/2010 12:00 PM EDT Office [place] [phone] Jaylin Salcido APRN Diabetes; Hypertension; Hyperlipidemia Discharge [...] with Dr. King every three months in [facility]. PHYSICAL EXAMINATION: Appearance: She is overweight. She [...] AM EDT Hospital Encounter [place] [address] Arrived 09/24/2024 4:00 PM EDT Office Visit Cardiology at [address] [place] [address] Nathaniel Keita MD [facility] [place] [address] 11/28/2024 10:30 AM EDT Office Visit Cardiology at [address] [place] [address] Ruben Hartman PA [facility] [place] [address] documented as of this encounter Procedures Procedure [...] RNER MILLENNIUM Albumin, Urine 4.8 mg/L JOSE R MILLENNIUM Albumin / Creatinin Ratio, Urine 24 mcg/mg Cr THOMPSON MILLENNIUM Comment: Reference Range* Random collection (mcg/mg creatinine) Normal ?<30 Microalbuminuria ?? 30 - 300 Clinical Albuminuria ?? >300 *[place] Diabetes Association. Diabetic Nephropathy. Diabetes Care 1997;(Suppl 1):S24-S27 Exercise within 24 hour, infection, fever, CHF, marked hyperglycemia, and marked hypertension may elevate urinary albumin excretion over baseline values. Urine specimen (specimen) 01/25/2011 11:13 AM EDT 01/25/2011 11:25 AM EDT Chris Chatman MD URINE ORDERABLES THOMPSON [employer] * (ABNORMAL) Hemoglobin A1c (01/25/2011 10:40 AM EDT) Hemoglobin A1c 7.9(H) 4.3 - 6.1 % [facility] Estimated Average Glucose 180 mg/dL [facility] Comment: eAG equivalents for HbA1c percentages: HbA1c(%) [...] into estimated average glucose values. ??Diabetes Care 2008:31(8):7803-5715. Blood specimen (specimen) 01/25/2011 10:40 AM EDT 01/25/2011 11:00 AM EDT Chris Chatman MD CHEMISTRY ORDERABLES [facility] * Vitamin D 25 hydroxy (10/19/2010 12:28 PM EDT) 25-Hydroxy D2 <4.0 ng/mL [facility] Comment: Test Performed by: [employer] [place] [address] Adjunct Philosophy Faculty: Daniela Thakur, Ph.D. 25-Hydroxy D3 33 ng/mL [facility] Comment: Test Performed by: [facility] [place] [address] Adjunct Philosophy Faculty: Daniela Thakur, Ph.D. Vitamin D Total 25 OH 33 ng/mL CERNER MILLENNIUM Comment: -- REFERENCE VALUE -- 25-HYDROXY D TOTAL (D2+D3) Optimum levels in the normal population are 25-80 Test Performed by: [facility] [place] [address] Adjunct Philosophy Faculty: Daniela Thakur, Ph.D. Blood specimen (specimen) 10/19/2010 12:28 PM EDT 10/19/2010 1:09 PM EDT Chris Chatman MD CHEMISTRY ORDERABLES Performing Organization Address [facility] de Phone Number [facility] MILLENNIUM * TSH (10/19/2010 12:28 PM EDT) Thyroid Stimulating Hormone 0.68 0.27 - 4.20 mcIU/mL CERNER MILLENNIUM Blood specimen (specimen) 10/19/2010 12:28 PM EDT 10/19/2010 12:34 PM EDT Chris Chatman MD CHEMISTRY ORDERABLES Performing Organization Address [facility] de Phone Number [facility] MILLENNIUM * (ABNORMAL) Basic metabolic panel (10/19/2010 [...] EDT Chris Chatman MD CHEMISTRY ORDERABLES CERNE JACKSONIUM * (ABNORMAL) Hemoglobin A1c (10/19/2010 12:28 PM EDT) Hemoglobin A1c 8.2(H) 4.3 - 6.1 % [facility] MILLENNIUM Estimated Average Glucose 189 mg/dL CERNER MILLENNIUM Comment: eAG equivalents for [...] into estimated average glucose values. ??Diabetes Care 2008:31(8):7749-8341. Blood specimen (specimen) 10/19/2010 12:28 PM EDT 10/19/2010 12:34 PM EDT Chris Chatman MD CHEMISTRY ORDERABLES [facility] documented in this encounter Visit Diagnoses Diagnosis Diabetes Type II or unspecified type diabetes mellitus without mention of complication, not stated as uncontrolled Hypertension Unspecified essential hypertension Hyperlipidemia Other and unspecified hyperlipidemia documented in this encounter Care Teams Kiln Tester Relationship Specialty Start Date End Date Neva Pugh MD [address] [place] [address] PCP - General 02/24/10 04/05/12 documented as of this encounter
--- OUTSIDE RECORDS SUMMARY | 2024-05-03 22:00 | XMS_ITS | Clinical Summary ---
Author Organization [facility] Address [address] [place] [address] Care Team Providers Care Corporate Financial Analyst Name Role Phone Alexander Adams MD Primary Care Provider [phone] Social History Tobacco Use Types Packs/Day Years [...] COVID-19 Vaccine ( season) 2023 Insurance [facility] MEDICARE [place] Care Teams Corporate Financial Analyst Relationship Specialty Start Date End Date Alexander Adams MD [address] [place] [id number] PCP - General 10/23/12
--- OUTSIDE RECORDS SUMMARY | 2024-05-03 22:00 | XMS_ITS | Encounter Summary ---
Author Organization [facility] [place] [address] Care Team Providers Care Extruder Operator Vertical Name Role Phone Neva Pugh MD Primary Care Provider [phone] Reason for Visit * Reason Comments Pacemaker Problem rotary check Encounter Details Date Type Department Care Team (Late st Contact Info) Description 07/20/2010 2:40 PM EDT Follow-Up Cardiology at [address] [phone] Lauren Cook, SANDRA Ventricular fibrillation (Primary Dx) Discharge Disposition: Home [...] Medtronic Sprint Quattro Model# 6947-58 cm Serial #[id number] Bipolar, steroid-tipped, active-fixation IS-1, DF-1 lead Access: Left axillary vein Location: Right ventricular apex R wave, ICD: 8.0 mV Pacing threshold, ICD: 1.0 V at 0.5 ms Impedance, ICD: 532 ohms HVB Impedance 33 ohms SVC Impedance 39 ohms Pace the diaphragm at 10 V: No Pulse generator: Medtronic John II VR Model# [id number] Serial# [id number] Single-chamber ICD Location: Subcutaneous Parameters: VF detection rate: >200bpm VF therapy: ATP during charging,30J,35Jx5 FVT detection rate: 200-250bpm FVT therapy: Burst(1),30J,35Jx4 VT detection rate:182-200bpm VT therapy:Burst(3),20J,35Jx4 Enhancement: Wavelet, VT Monitor Bradycardia pacing: VVI 40 Pacing percentages: VS 100% Histogram is well distributed. Underlying rhythm: SR 80bpm MO 200ms (pt states this is normal for [...] 2. [facility] in October 2010 Provider: Lauren Cook RN Provider #: [id number] Consult attending physician: Donavan De La O MD documented in this encounter Plan of Treatment Upcoming Encounters Date Type Department Care Team (Late st Contact Info) Description 07/25/2024 10:00 AM EDT Hospital Encounter [place] [address] Arrived 09/24/2024 4:00 PM EDT Office Visit Cardiology at [address] [address] Nathaniel Keita MD [facility] [place] [address] 11/28/2024 10:30 AM EDT Office Visit Cardiology at [address] [address] Ruben Hartman PA [facility] [place] [address] documented as of this encounter Visit Diagnoses Diagnosis Ventricular fibrillation- Primary documented in this encounter Care Teams Extruder Operator Vertical Relationship Specialty Start Date End Date Neva Pugh MD [address] [place] [address] PCP - General 02/24/10 04/05/12 documented as of this encounter
--- OUTSIDE RECORDS SUMMARY | 2024-05-03 22:00 | XMS_ITS | Encounter Summary ---
Author Organization [facility] [place] [address] Care Team Providers Care Ex Assistant/Program Director Name Role Phone Neva Pugh MD Primary Care Provider [phone] Encounter Details Date Type Department Care Team (Late st Contact Info) Description 03/24/2010 8:30 AM EST Office [place] [address] Jaylin Salcido APRN Discharge Disposition: Home Social History Tobacco Use [...] AM EDT Hospital Encounter Non-Invasive [place] [address] Arrived 09/24/2024 4:00 PM EDT Office Visit Cardiology at [address] [phone] Nathaniel Keita MD [facility] [place] [address] 11/28/2024 10:30 AM EDT Office Visit Cardiology at [address] [place] [address] Ruben Hartman, LAURA [facility] [place] [address] documented as of this encounter Visit Diagnoses Not on filedocumented in this encounter Care Teams Ex Assistant/Program Director Relationship Specialty Start Date End Date Neva Pugh MD [address] [place] [address] PCP - General 02/24/10 04/05/12 documented as of this encounter
--- OUTSIDE RECORDS SUMMARY | 2024-05-03 22:00 | XMS_ITS | Encounter Summary ---
[place] [address] Care Team Providers Care Locomotive Electrician Name Role Phone Neva Pugh MD Primary Care Provider [phone] Reason for Visit * Reason Onset Date Comments Medication Refill 07/21/2010 Encounter Details Date Type Department Care Team (Late st Contact Info) Description 07/21/2010 Refill [place] [phone] Jaylin Salcido APRN Hypertension Social History Tobacco [...] AM EDT Hospital Encounter Non-[place]vasive [place] [address] Arrived 09/24/2024 4:00 PM EDT Office Visit Cardiology at [address] [phone] Nathaniel Keita MD [facility] [place] [address] 11/28/2024 10:30 AM EDT Office Visit Cardiology at [address] [place] [address] Ruben Hartman, PA [facility] [place] [address] documented as of this encounter Visit Diagnoses Diagnosis Hypertension Unspecified essential hypertension documented in this encounter Care Teams Locomotive Electrician Relationship Specialty Start Date End Date Neva Pugh MD [address] [place] [address] PCP - General 02/24/10 04/05/12 documented as of this encounter
--- OUTSIDE RECORDS SUMMARY | 2024-05-03 22:00 | XMS_ITS | Encounter Summary ---
Author Organization [facility] Address [address] [place] [address] Care Team Providers Care Boot And Shoe Repairman Name Role Phone Neva Pugh MD Primary Care Provider [phone] Encounter Details Date Type Department Care Team (Late st Contact Info) Description 03/24/2012 Results Only [facility] Services - [facility] ([facility] [address] [place] [address] Esvin Hackett, [address] [facility] ,[facility] [address] [place], [place] [id number] Social History Tobacco Use Types Packs/Day Years [...] ? LIANE OMER ? Accession #: ? [id number] ? : ? 1945 (Age: 66) ??F [...] Fi nal Result [facility] [address] [place] [address] documented in this encounter Visit Diagnoses Not on filedocumented in this encounter Care Teams Boot And Shoe Repairman Relationship Specialty Start Date End Date Neva Pugh MD [address] [place] [address] PCP - General 03/12/09 10/22/12 documented as of this encounter
--- OUTSIDE RECORDS SUMMARY | 2024-05-03 22:00 | XMS_ITS | Encounter Summary ---
[place] [address] Care Team Providers Care Bait Man Name Role Phone Neva Pugh MD Primary Care Provider [phone] Encounter Details Date Type Department Care Team (Late st Contact Info) Description 10/22/2010 Orders Only Cardiology at [address] [address] Neva Pugh MD [address] [place] [address] Social History Tobacco Use Types [...] AM EDT Hospital Encounter Non-[place] [address] Arrived 09/24/2024 4:00 PM EDT Office Visit Cardiology at [address] [address] Nathaniel Keita MD [facility] [place] [address] 11/28/2024 10:30 AM EDT Office Visit Cardiology at [address] [place] [address] Ruben Hartman PA [facility] [place] [address] documented as of this encounter Procedures Procedure Name Priority Date/Time Associated Diagnosis Comments EP DEVICE SCAN Routine 10/20/2010 documented in this encounter Results * Scan Doc: EP Device (10/20/2010) Anatomical Region Laterality Modality Other Neva Pugh MD MEDIA MGR SCAN EXT O RDR/RSLT documented in this encounter Visit Diagnoses Not on filedocumented in this encounter Care Teams Bait Man Relationship Specialty Start Date End Date Neva Pugh MD [address] [place] [address] PCP - General 02/24/10 04/05/12 documented as of this encounter
--- OUTSIDE RECORDS SUMMARY | 2024-05-03 22:00 | XMS_ITS | Encounter Summary ---
Author Organization [facility] Address [address] [place] [address] Care Team Providers Care Laser/Electro Optics Technician Name Role Phone Alexander Adams MD Primary Care Provider [phone] Encounter Details Date Type Department Care Team (Latest Contact Info) Description 06/26/2014 11:20 EDT - 06/26/2014 23:59 EDT Hospital Encounter [address] [address] Unknown, Provider, Discharge Disposition: Home or Self [...] Code Departure Means Destination Home or Self [facility] documented in this encounter Plan of Treatment Not on file documented as of this encounter Visit Diagnoses Not on filedocumented in this encounter Care Teams Laser/Electro Optics Technician Relationship Specialty Start Date End Date Alexander Adams MD [address] [place] [address] PCP - General 10/23/12 documented as of this encounter
--- OUTSIDE RECORDS SUMMARY | 2024-05-03 22:00 | XMS_ITS | Encounter Summary ---
Author Organization [facility] [place] [address] Care Team Providers Care Digital Media Specialist Name Role Phone Neva Pugh MD Primary Care Provider [phone] Encounter Details Date Type Department Care Team (Late st Contact Info) Description 07/17/2010 Orders [place] [address] Jaylin Salcido APRN Social History Tobacco Use [...] AM EDT Hospital Encounter Non-[place] [address] Arrived 09/24/2024 4:00 PM EDT Office Visit Cardiology at [address] [address] Nathaniel Keita MD [facility] [place] [address] 11/28/2024 10:30 AM EDT Office Visit Cardiology at [address] [place] [phone] Ruben Hartman, LAURA [facility] [place] [address] documented as of this encounter Visit Diagnoses Not on filedocumented in this encounter Care Teams Digital Media Specialist Relationship Specialty Start Date End Date Neva Pugh MD [address] [place] [address] PCP - General 02/24/10 04/05/12 documented as of this encounter
--- OUTSIDE RECORDS SUMMARY | 2024-05-03 22:00 | XMS_ITS | Encounter Summary ---
[place] [address] Care Team Providers Care Justice Of The Peace Name Role Phone Neva Pugh MD Primary Care Provider Reason for Visit * Reason Onset Date Comments Medication Refill 12/29/2010 Encounter Details Date Type Department Care Team (Late st Contact Info) Description 12/29/2010 [place] [phone] Elisha Nichols MD Social History Tobacco Use [...] AM EDT Hospital Encounter Non-Invasive [place] [address] Arrived 09/24/2024 4:00 PM EDT Office Visit Cardiology at [address] [phone] Nathaniel Keita MD [facility] [place] [address] 11/28/2024 10:30 AM EDT Office Visit Cardiology at [address] [place] [address] Ruben Hartman, PA [facility] [place] [address] documented as of this encounter Visit Diagnoses Not on filedocumented in this encounter Care Teams Justice Of The Peace Relationship Specialty Start Date End Date Neva Pugh MD [address] [place] [address] PCP - General 02/24/10 04/05/12 documented as of this encounter
--- OUTSIDE RECORDS SUMMARY | 2024-05-03 22:00 | XMS_ITS | Encounter Summary ---
Author Organization [facility] Address [address] [place] [address] Care Team Providers Care Sack Filler Name Role Phone Alexander Adams MD Primary Care Provider [phone] Encounter Details Date Type Department Care Team (Late st Contact Info) Description 06/27/2014 Results Only [facility] Laboratory Services - [facility] ([facility]) [address] [place] [address] Esvin Hackett, [address] [facility] ,[facility] 1 [place], [place] [id number] Social History Tobacco Use Types Packs/Day Years [...] ? LIANE OMER ? Accession #: ? [id number] ? : ? 1945 (Age: 68) ??F [...] Miller 06/27/2014 9:18 AM End of Report [facility] 06/26/2014 8:51 EDT 06/27/2014 8:51 EDT us Esvin Hackett DO PATHOLOGY ORDERABLES Fi nal Result [facility] [address] [place] [address] documented in this encounter Visit Diagnoses Not on filedocumented in this encounter Care Teams Sack Filler Relationship Specialty Start Date End Date Alexander Adams MD [address] [place] [address] PCP - General 10/23/12 documented as of this encounter
--- OUTSIDE RECORDS SUMMARY | 2024-05-03 22:00 | XMS_ITS | Encounter Summary ---
[place] [address] Care Team Providers Care Research Center Partner Name Role Phone Neva Pugh MD Primary Care Provider [phone] Encounter Details Date Type Department Care Team (Late st Contact Info) Description 01/25/2011 10:30 AM EDT Office [place] [address] Elisha Nichols MD Diabetes; Hypertension; DM type [...] tablet Take by mouth daily as needed. Tue/tue/tue Indications: Hypertension 90 tablet 3 ??? insulin [...] mouth nightly. 90 tablet 3 ??? Insulin Creole, Disposable, (BD INSULIN PEN NEEDLE UF SHORT) 31 X 5/16 Ndle by [facility].(Non-Drug; Combo Route) route. ??? SUBCUTANEOUS INSULIN PUMP (INSULIN PUMP [id number] [facility]) by [facility].(Non-Drug; Combo Route) route. ??? aspirin [...] AM EDT Hospital Encounter Non-[place] [address] Arrived 09/24/2024 4:00 PM EDT Office Visit Cardiology at [address] [address] Nathaniel Keita MD [facility] [address] 11/28/2024 10:30 AM EDT Office Visit Cardiology at [address] [address] Ruben Hartman, LAURA [facility] [address] documented as of this encounter Procedures Procedure Name Priority Date/Time Associated Diagnosis Comments U ALBUMIN/CRE RATIO Routine 01/25/2011 1 1:13 AM EDT Diabetes HEMOGLOBIN A1C Routine 01/25/2011 10:40 AM EDT Diabetes documented in this encounter Results * (ABNORMAL) Hemoglobin A1c (04/29/2011 12:03 PM EST) Hemoglobin A1c 8.3(H) 4.3 - 6.1 % [facility] Estimated Average Glucose 192 mg/dL [facility] Comment: eAG equivalents for HbA1c percentages: HbA1c(%) [...] into estimated average glucose values. ??Diabetes Care 2008:31(8):0294-7742. Blood specimen (specimen) 04/29/2011 12:03 PM EST 04/29/2011 12:09 PM EST Elisha Nichols MD CHEMISTRY ORDERAB LES [facility] * Microalbumin, urine, random (01/25/2011 11:13 AM EDT) Creatinine, Urine 20 mg/dL CE RNER MILLENNIUM Albumin, Urine 4.8 mg/L JOSE R MILLENNIUM Albumin / Creatinin Ratio, Urine 24 mcg/mg Cr [facility] Comment: Reference Range* Random collection (mcg/mg creatinine) Normal ?<30 Microalbuminuria ?? 30 - 300 Clinical Albuminuria ?? >300 *[place] Diabetes Association. Diabetic Nephropathy. Diabetes Care 1997;(Suppl 1):S24-S27 Exercise within 24 hour, infection, fever, CHF, marked hyperglycemia, and marked hypertension may elevate urinary albumin excretion over baseline values. Urine specimen (specimen) 01/25/2011 11:13 AM EDT 01/25/2011 11:25 AM EDT Chris Chatman MD URINE ORDERABLES [facility] * (ABNORMAL) Hemoglobin A1c (01/25/2011 10:40 AM EDT) Hemoglobin A1c 7.9(H) 4.3 - 6.1 % [facility] Estimated Average Glucose 180 mg/dL [facility] Comment: eAG equivalents for HbA1c percentages: HbA1c(%) [...] into estimated average glucose values. ??Diabetes Care 2008:31(8):5187-5273. Blood specimen (specimen) 01/25/2011 10:40 AM EDT 01/25/2011 11:00 AM EDT Chris Chatman MD CHEMISTRY ORDERABLES Performing Organization Address City/State/[facility] Phone Number [facility] documented in this encounter Visit Diagnoses Diagnosis Diabetes Type II or unspecified type diabetes mellitus without mention of complication, not stated as uncontrolled Hypertension Unspecified essential hypertension DM type 1 (diabetes mellitus, type 1) Type I (juvenile type) diabetes mellitus without mention of complication, not stated as uncontrolled documented in this encounter Care Teams Research Center Partner Relationship Specialty Start Date End Date Neva Pugh MD [address] [place] [address] PCP - General 02/24/10 04/05/12 documented as of this encounter
--- NOTE | 2024-05-03 22:15 | RT.EKG_ITS ---
APPROVED REPORT Exam: Resting ECG Reason for Exam: fall, hip fraqcture Patient Location: E HR:83 bpm ECG Measurements Heart Rate 83 AXIS ME 207 P 39 QRSd 74 QRS 50 QT 360 T 74 QTc 422 Conclusion Sinus rhythm...normal P axis, V-rate 60- 99
--- NOTE | 2024-05-03 22:15 | DI.RAD_ITS ---
Exam(s) XR HIP RT COMPLETE AP PELVIS EXAM: XR HIP RT COMPLETE AP PELVIS CLINICAL HISTORY: fall, shortness and rotated, question fracture. TECHNIQUE: 2D digital imaging was performed of the right hip. Four images were obtained. AP pelvis and lateral right hip views were obtained. The cross-table lateral views are suboptimal due to bruno ent body habitus. COMPARISON: CR XR HIP LT AP LAT ONLY from 04/17/2024 FINDINGS: BONES: There is an acute fracture of the right proximal femur. The fracture appears to involve the b ase of the neck of the femur and extend into the lesser trochanter. The fracture is displaced and im pacted. No bony destructive lesion is seen. Portions of an intramedullary jamal are again seen in the left femur. There is also posterior spinal surgery in the lower lumbar spine. JOINTS: No dislocation present. Mild degenerative changes are seen in the hips. SOFT TISSUE: Vascular calcifications are present. IMPRESSION: Impacted displaced right femoral neck fracture. A CT scan may be considered to further characterized or fracture. DATA REPOSITORY: RADIATION DOSE DELIVERED:
--- NOTE | 2024-05-03 22:24 | DI.RAD_ITS ---
Exam(s) XR CHEST 1V IN DI DEPT EXAM: XR CHEST 1V IN DI DEPT CLINICAL HISTORY: fall, right hip fracutre, trauma TECHNIQUE: 2D digital imaging was performed of the chest. One image was obtained. An AP view was ob tained. COMPARISON: CR,XR XR PORTABLE CHEST AP from 05/22/2023 FINDINGS: MEDIASTINUM: Normal. HEART: Normal. Status post CABG. There is a cardiac pacing device again seen. PULMONARY VASCULATURE: Normal. LUNGS: Clear. PLEURAL SPACE: No pleural effusion or pneumothorax. BONE:Within normal limits for the patient's age. Sternal wires are in place. There are old healed ri ght rib fracture deformities. OTHER FINDINGS:Normal. IMPRESSION: No acute pulmonary findings. DATA REPOSITORY: RADIATION DOSE DELIVERED:
[2024-05-03 22:39] LABS: Abs Immature Grans 0.07 10^3/uL (0.0-0.06); Absolute Basophil Count 0.06 10^3/uL (0.0-0.2); Absolute Eosinophil Count 0.34 10^3/uL (0.0-0.7); Absolute Lymphocyte Count 1.73 10^3/uL (1.2-3.4); Basophils % 0.5 %; Eosinophils % 2.8 %; HCT 38.3 % (36.0-46.0); HGB 12.6 g/dL (11.2-15.7); Immature Grans % 0.6 %; Lymphocytes % 14.3 %; MCH 29.1 pg (27.0-33.0); MCHC 32.9 % (32.0-36.0); MCV 89 fL (80-95); MPV 9.9 fL (8.0-11.0); Neutrophils % 76.8 %; Platelet Count 216 10^3/uL (130-400); RBC 4.33 10^6/uL (3.93-5.22); RDW 13.3 % (11.7-14.6); RDW-SD 43.5 fL; WBC 12.09 10^3/uL (4.4-10.8)
[2024-05-03 22:40] LABS: Absolute Neutrophil Count 9.29 10^3/uL (1.2-6.7)
[2024-05-03] MEDS: ACETAMINOPHEN 1,000 MG/100 ML BAG 400 MG IVPB (22:42)
[2024-05-03 22:51] LABS: PTT Activated 26.4 sec (20.6-30.2); Prothrombin Time 9.9 sec (9.1-11.1)
[2024-05-03 23:16] LABS: Anion Gap 1.9 mmol/L (3-11); BUN 25 mg/dL (7-18); CO2 35.1 mmol/L (21.0-32.0); CREATININE 1.1 mg/dL (0.55-1.02); Calcium 9.7 mg/dL (8.5-10.1); Chloride 102 mmol/L (98-107); Estimated GFR 51.11 (mL/min/1.73m2); Glucose 94 mg/dL (74-106); Magnesium 1.9 mg/dL (1.8-2.4); Potassium 4.3 mmol/L (3.5-5.1); Sodium 139 mmol/L (136-145); Troponin I 12 ng/L (<or=51)
--- NOTE | 2024-05-03 23:49 | DI.VRAD_ITS ---
PROCEDURE INFORMATION: Exam: XR Right Hip Exam date and time: 05/03/2024 11:02 PM Age: 78 years old Clinical indication: Injury or trauma; Fall; Fracture of pelvis \T\ hip; Right; Traumatic fracture; Neck of femur; Closed fracture TECHNIQUE: Imaging protocol: Radiologic exam of the right hip. Views: 2 or 3 views hip with pelvis when performed. COMPARISON: CT PELVIC WO 05/22/2023 2:26 AM FINDINGS: Bones/joints: Minimally displaced impacted, subtrochanteric fracture of right femur. No subluxation. Prior open reduction internal fixation of left hip fracture with placement of intramedullary jamal. Prior lumbar spine surgery. Soft tissues: Unremarkable. IMPRESSION: Acute right hip fracture. Dictated and Authenticated by: Parker Dave MD. Orderin Elizabeth Ahumada MD
--- NOTE | 2024-05-03 23:51 | DI.VRAD_ITS ---
PROCEDURE INFORMATION: Exam: XR Chest Exam date and time: 05/03/2024 11:05 PM Age: 78 years old Clinical indication: Injury or trauma; Fall; Blunt trauma (contusions or hematomas) TECHNIQUE: Imaging protocol: Radiologic exam of the chest. Views: 1 view. COMPARISON: CR XR PORTABLE CHEST AP 05/22/2023 8:33 AM FINDINGS: Tubes, catheters and devices: Transvenous pacemaker/defibrillator lead appears unchanged in position. Lungs: Diminished lung expansion compared to prior. There may be minimal interstitial and pulmonary vascular prominence, accentuated by low lung volumes. No consolidation. Pleural spaces: Unremarkable. No pleural effusion. No pneumothorax. Heart/Mediastinum: Unremarkable. No cardiomegaly. Bones/joints: Prior median sternotomy. IMPRESSION: No acute findings. Dictated and Authenticated by: Parker Dave MD. Orderin Elizabeth Ahumada MD
[2024-05-04] VITALS (141 sets, daily range): BP systolic 102–227; BP diastolic 37–152; PULSE 67–124; RESP 10–23; TEMP 36.1–36.5; TEMPC 36.2; O2SAT 87–100; BMI 28.3
--- NOTE | 2024-05-04 00:33 | HPE_ITS ---
Date of service: 05/04/24 Time of Service: 01:33 Assessment and Plan Assessment and plan (1) Closed hip fracture: Status: Acute Assessment and plan: Minimally displaced closed hip fracture on right after a fall. No orthopedics on tonight but Dr. Carrillo tomorrow, will admit and prep for possible surgery 05/04 Patient wants to avoid opiates, acetaminophen for now, but will give option for severe pain, she has tolerated morphine. (2) CAD (coronary artery disease): Assessment and plan: History of CABG, also had ventricular tachycardia and AICD placed. No symptoms to suggest active coronary disease, EKG and troponins reassuring. Recommend proceeding with surgery without further cardiac testing. Continue statin, hold ASA but resume as soon as cleared by cardiology, post op okay. 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 She also has a history of hypoglycemia. Will continue her home basal bolus regimen and monitor. (4) Essential hypertension: Status: Acute Assessment and plan: BP high today, with acute injury. Treat pain. Continue outpatient therapy, monitor. 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 Will try on low dose of both. (5) CKD stage 3a, GFR 45-59 ml/min: Status: Acute Assessment and plan: Current GFR on high end of recent baseline. Follow. (6) Depression: Assessment and plan: Continue outpatient SNRI (7) Iron deficiency anemia: Status: Acute Assessment and plan: h/h have normalized. (8) DVT prophylaxis: Status: Acute Assessment and plan: Defer to surgeon with pending surgery. TEDs/SCDs for now. History of Present Illness History of Present Illness Chief Complaint: fall, hip pain Narrative: 78 yo F with history of type 1 DM with neuropathy, CAD s/p CABG and AICD in 2009, s/p left hip fracture with intramedullary nailing 05/22/23 who presented after slipping and falling on her right hip. She was taking clothes out of the drying last evening about 8pm. She was wearing socks and lost her footing and fell on her right side with immediate pain in her right hip. She states her balance isn't great. She did the same thing last may and broke her left hip and this time felt the same. She did not have any chest pain, palpitations, shortness of breath, or dizziness before or after her fall. She has not have focal weakness. She does have a loss of sensation in both of her feet and she looses balance easily. She related her balance issues to the neuropathy from DM she has had for 63 years as well as spinal stenosis. 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 ) Cardiovascular Cardiovascular: Denies chest pain at rest, Denies chest pain with activity, Denies syncope, Denies dyspnea and Denies dyspnea on exertion Comments: uses walker, can go up and down stairs Respiratory Respiratory: Denies dyspnea and Denies dyspnea on exertion Neurologic Neurologic: Denies vertigo, Denies dizziness, Denies syncope and Denies localized weakness PFSH All Active Problems (Updated 05/04/24 @ 00:56 by Brandyn Johnson MD) Closed intertrochanteric fracture of right hip (Acute) DVT prophylaxis (Acute) Closed hip fracture (Acute) CKD stage 3a, GFR 45-59 ml/min (Acute) Iron deficiency anemia (Acute) Hypoglycemia due to insulin (Acute) Hyperglycemia (Acute) Skin ulcer of left ankle (Acute) Atherosclerosis of artery of both lower extremities (Acute) On deep vein thrombosis (DVT) prophylaxis (Acute) Intertrochanteric fracture of left hip (Acute 05/22/23) Diabetes mellitus with foot ulcer due to multiple causes (Acute) Follow up (Acute) Contusion of left great toe with damage to nail (Acute) Cellulitis (Acute) Dystrophia unguium (Acute) Asymmetrical sensorineural hearing loss (Acute) S/P LORETTA-BSO (Acute) Insomnia (Acute) Renal insufficiency (Chronic) CTS (carpal tunnel syndrome) (Acute) Ventricular arrhythmia (Acute) Spinal stenosis, lumbar (Acute) spinal fusion L4/5 Degenerative joint disease of spine (Acute) Loss of balance (Acute) GERD (gastroesophageal reflux disease) (Chronic) Osteoarthritis of fingers of both hands (Acute) Actinic keratoses (Acute) Urinary incontinence (Acute) with recurrent UTIs ICD (implantable cardioverter-defibrillator) in place (Acute 11/13/15) [employer] John II VR, single lead [id number], [facility] [place] 07/01/2009 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 Controlled with insulin pump Essential hypertension (Acute 11/13/15) Corns and callosities (Acute) Tumor of parotid gland (Acute) Sinusitis (Acute) Charcot foot due to diabetes mellitus (Acute) Medical History (Updated 05/04/24 @ 00:56 by Brandyn Johnson MD) Depression UTI (urinary tract infection) Coronary artery disease Diabetes History of tobacco use Hyperlipemia Mass of parotid gland Abnormal mammogram of right breast History of sudden cardiac arrest (11/13/15) CAD (coronary artery disease) (11/13/15) Mass of right parotid gland History of pneumothorax HTN (hypertension) S/P CABG (coronary artery bypass graft) (06/26/09) History of sudden cardiac arrest (06/21/09) Surgical History S/P CABG (coronary artery bypass graft) (11/13/15) History of cataract surgery Hx of cholecystectomy H/O breast biopsy History of bilateral salpingo-oophorectomy (BSO) History of total abdominal hysterectomy Family History Father Heart disease Hypertension Mother Diabetes Heart disease Hypertension Social History (Updated 05/04/24 @ 02:53 by Shukri Rodriguez) Smoking/Tobacco Use Status: Former Tobacco Use Smoking risk assessment performed?: Yes Alcohol Intake: current Alcohol Intake frequency: holidays/special occasions only Alcohol type: wine Drug use: Never Household members: none Housing: house What is your relationship status?: Panel score (0-1 are the most socially isolated patients): 0 Do you feel safe at home: Yes Do you feel safe in your relationship?: Yes Additional Social history: Lives alone in [place]. in [facility], but supportive. Two daughters in the region. Meds Allergies and Home Medications Allergies Allergy/AdvReac Type Severity Reaction Status Date / Time alendronate sodium (From Allergy Severe chest pain Verified 05/03/24 21:47 Fosamax) ezetimibe (From Zetia) Allergy Severe Anaphylaxsi Verified 05/03/24 21:47 s lisinopril (From Zestril) Allergy Severe angioedema Verified 05/03/24 21:47 amiodarone Allergy Mild Skin Rash Verified 05/03/24 21:47 amoxicillin Allergy Other (See Verified 05/03/24 21:47 Comment) iodine Allergy Keller skin Verified 05/03/24 21:47 nitrofurantoin (From Allergy Other (See Verified 05/03/24 21:47 Macrobid) Comment) oxycodone Allergy Other (See Verified 05/03/24 21:47 Comment) propoxyphene (From Allergy Other (See Verified 05/03/24 21:47 Darvocet-N) Comment) pravastatin sodium (From AdvReac Severe dizziness Verified 05/03/24 21:47 Pravachol) celecoxib (From Celebrex) AdvReac Intermediate n/v/d Verified 05/03/24 21:47 gabapentin (From Neurontin) AdvReac Intermediate n/v/d Verified 05/03/24 21:47 simvastatin (From Zocor) AdvReac Intermediate mylagia Verified 05/03/24 21:47 povidone-iodine (From AdvReac Mild Skin Rash Verified 05/03/24 21:47 Betadine) codeine (Codeine) AdvReac n/v/d Verified 05/03/24 21:47 ibandronate sodium (From AdvReac joint pain Verified 05/03/24 21:47 Boniva) propoxyphene napsylate (From AdvReac n/v/d Verified 05/03/24 21:47 Darvocet-N 100) kiwi Allergy Severe Anaphylaxsi Uncoded 05/03/24 21:47 s Ivory Soap Allergy Itching Uncoded 05/03/24 21:47 adhesive tape AdvReac Skin Rash Uncoded 05/03/24 21:47 Home Medications ?Medication ?Instructions ?Recorded ?Confirmed ?Type insulin aspart U-100 100 unit/mL 100 unit SQ DAILY 08/28/12 05/03/24 History subcutaneous cartridge (Novolog PenFill U-100 Insulin aspart) insulin glargine 100 unit/mL 28 units SQ DAILY PRN insulin pump 10/18/12 05/03/24 History subcutaneous solution (Lantus failure U-100 Insulin) cranberry extract 250 mg capsule 250 mg PO DAILY 11/05/20 05/03/24 History glucagon 1 mg/0.2 mL subcutaneous 1 mg subcut ONCE 11/05/20 05/03/24 History auto-injector vitamin B complex (B 1 tab PO DAILY 11/25/21 05/03/24 History Complex-Vitamin B12 tablet) esomeprazole magnesium 40 mg 40 mg PO DAILY 12/30/21 05/03/24 History capsule,delayed release pyridoxine (vitamin B6) 100 mg 200 mg PO DAILY 04/29/22 05/03/24 History tablet insulin regular human 100 unit/mL See Rx Instructions subcut 05/09/22 05/03/24 History injection solution (Novolin R USEASDIRECTD Regular U-100 Insulin) meclizine 25 mg tablet 25 mg PO .Q6hrs PRN 05/09/22 05/03/24 History valsartan 40 mg tablet 40 mg PO .COMPLEX PRN 05/10/22 05/03/24 History cholecalciferol (vitamin D3) 50 5,000 unit PO DAILY 10/21/22 05/03/24 History mcg (2,000 unit) tablet (Vitamin D3) acetaminophen 500 mg tablet 1,000 mg (2 x 500 mg) PO Q8H #180 05/25/23 05/03/24 Rx tabs aspirin 81 mg tablet,delayed 81 mg PO DAILY 07/20/23 05/03/24 History release duloxetine 40 mg capsule,delayed 40 mg PO DAILY 08/17/23 05/03/24 History release atorvastatin 40 mg tablet 40 mg PO DAILY 12/12/23 05/03/24 History ferrous gluconate 324 mg (38 mg 324 mg PO DAILY #30 tabs 12/13/23 05/03/24 Rx iron) tablet sucralfate 1 gram tablet (Carafate) 1 g PO QACHS PRN 02/23/24 05/03/24 History Exam Narrative Exam Narrative: GEN: Alert and oriented x 4, pleasant and cooperative, gives linear history. No acute distress at rest. HEENT: Head atraumatic. Conjunctiva clear, no icterus. PEERL, EOMI. no rhinorrhea. MMM, OP benign. Neck is supple with pingpong sized firm round mass at angle of right mandible, not tender. No other masses or lymphadenopathy, trachea midline LUNGS: CTAB with normal effort CV: RRR with no murmurs, gallops, or rubs. ABD: active bowel sounds, soft, nontender and nondistended. No masses. EXT: no cyanosis, clubbing. Trace bilateral edema. warm. MSK: No joint redness or swelling. Missing distal toes right foot. Right leg shortened and externally rotated. NEURO: CN 2-12 grossly intact. Normal movement of 4 extremities except at right hip. absent sensation rohit midfeet to toes. Normal speech and coordination. No tremor SKIN: No rashes or open wounds except 1cm wound right MCP, not red or draining. dark spots at tips of partially amputated toes on right PSYCH: normal mood and affect, normal thought process Results Imaging Chest x-ray: report reviewed (No acute findings. ) and image reviewed EKG: report reviewed and image reviewed (NSR, nl axis, intervals. No ST-T abnormalities) Imaging Studies: XR right hip: Acute right hip fracture. Labs 05/03/24 22:28 05/03/24 22:28 Labs: Laboratory Results - last 24 hr 05/03/24 05/03/24 22:28 22:30 WBC 12.09 H RBC 4.33 Hgb 12.6 Hct 38.3 MCV 89 MCH 29.1 MCHC 32.9 RDW 13.3 Plt Count 216 MPV 9.9 Immature Gran % 0.6 Neutrophils % 76.8 Lymphocytes % 14.3 Monocytes % 5.0 Eosinophils % 2.8 Basophils % 0.5 Nucleated RBC % 0.0 Absolute Neutrophils 9.29 H Absolute Lymphocytes 1.73 Absolute Monocytes 0.60 Absolute Eosinophils 0.34 Absolute Basophils 0.06 PT 9.9 INR 1.0 APTT 26.4 Sodium 139 Potassium 4.3 Chloride 102 Carbon Dioxide 35.1 H Anion Gap 1.9 L BUN 25 H Creatinine 1.1 H Est GFR (CKD-EPI 2020) 51.11 Glucose 94 Calcium 9.7 Magnesium 1.9 Troponin I 12 ABO/Rh O Positive Antibody Screen NEGATIVE Last Vital Signs Temp 36.8 C 05/03/24 21:40 Pulse 87 05/03/24 21:40 Resp 15 05/03/24 21:40 BP 248/86 H 05/03/24 21:40 Pulse Ox 98 05/03/24 21:40 Time Spent Time spent with Patient: 55-74 minutes Time was spent: preparing to see the patient(eg.review tests), obtaining and/or reviewing separately otained hiistory, ordering medications,tests, procedures, referring, communicating with other health hospice home care coordinator, indepentently interpreting results, counseling the patient and care coordination
--- NOTE | 2024-05-04 00:49 | ED.GENADUL_ITS ---
Discharge Plan Disposition Patient Disposition: Admit to [facility] Condition: Improving Discharge Details Chief Complaint: Orthopedic Clinical Impression: Closed intertrochanteric fracture of right hip Primary Care Provider: Vinayak Downs ED Provider: Brandyn Johnson Home Meds and New Rx's Prescriptions: No Action Novolin R Regular U100 Insulin 100 unit/mL solution See Rx Instructions subcut USEASDIRECTD Rx Instructions: use with insulin pump meclizine 25 mg tablet 25 mg PO .Q6hrs PRN duloxetine 40 mg capsule,delayed release(DR/EC) 40 mg PO DAILY Rx Instructions: pt takes an additional 20mg (60mg dose total) prn. vitamin B complex [B Complex-Vitamin B12] Tablet 1 tab PO DAILY aspirin 81 mg tablet,delayed release (DR/EC) 81 mg PO DAILY glucagon 1 mg/0.2 mL auto-injector 1 mg subcut ONCE Rx Instructions: as a single dose; may repeat once after 15 minutes if no response cranberry extract 250 mg capsule 250 mg PO DAILY Rx Instructions: administer with a meal esomeprazole magnesium 40 mg capsule,delayed release(DR/EC) 40 mg PO DAILY pyridoxine (vitamin B6) 100 mg tablet 200 mg PO DAILY valsartan 40 mg tablet 40 mg PO .COMPLEX PRN Rx Instructions: 40 mg orally three times weekly only due to low bp PRN; cholecalciferol (vitamin D3) [Vitamin D3] 50 mcg (2,000 unit) tablet 5,000 unit PO DAILY sucralfate [Carafate] 1 gram tablet 1 g PO QACHS PRN insulin aspart U-100 [Novolog PenFill U-100 Insulin] 100 UNIT/1 ML cartridge 100 unit SQ DAILY Patient Comments: pt has insulin pump dose is between 40 and 50 units daily insulin glargine [Lantus U-100 Insulin] 100 UNITS/ML solution 28 units SQ DAILY PRN (Reason: insulin pump failure) Patient Comments: 28 units at 1800 acetaminophen 500 mg Tablet 1,000 mg PO Q8H Qty: 180 0RF atorvastatin 40 mg tablet 40 mg PO DAILY ferrous gluconate 324 mg (38 mg iron) tablet 324 mg PO DAILY Qty: 30 0RF HPI General Date/Time Provider Initiated Documentation: 05/03/24 21:48 . HPI Narrative: The patient is a 78-year-old female, who presents the emergency department this evening after having a slip and fall at home tonight on socks in her laundry room. She landed on her right hip and feels that she heard a crunch and that the hip has been fractured. The patient had a fall last year in April and sustained a left-sided hip fracture which required a gamma nail placement here at an [facility]. The patient reports that she has relatively minimal pain as long as she remains still with her leg flexed. The patient tells me that she tolerated her prior hip fracture with Tylenol and ibuprofen only. The patient does not feel that she is otherwise injured from her fall. Her secondary trauma screening was negative for any obvious findings. Related Data Home Medications ?Medication ?Instructions ?Recorded ?Confirmed insulin aspart U-100 100 unit/mL 100 unit SQ DAILY 08/28/12 05/03/24 subcutaneous cartridge (Novolog PenFill U-100 Insulin aspart) insulin glargine 100 unit/mL 28 units SQ DAILY PRN insulin pump 10/18/12 05/03/24 subcutaneous solution (Lantus failure U-100 Insulin) cranberry extract 250 mg capsule 250 mg PO DAILY 11/05/20 05/03/24 glucagon 1 mg/0.2 mL subcutaneous 1 mg subcut ONCE 11/05/20 05/03/24 auto-injector vitamin B complex (B 1 tab PO DAILY 11/25/21 05/03/24 Complex-Vitamin B12 tablet) esomeprazole magnesium 40 mg 40 mg PO DAILY 12/30/21 05/03/24 capsule,delayed release pyridoxine (vitamin B6) 100 mg 200 mg PO DAILY 04/29/22 05/03/24 tablet insulin regular human 100 unit/mL See Rx Instructions subcut 05/09/22 05/03/24 injection solution (Novolin R USEASDIRECTD Regular U-100 Insulin) meclizine 25 mg tablet 25 mg PO .Q6hrs PRN 05/09/22 05/03/24 valsartan 40 mg tablet 40 mg PO .COMPLEX PRN 05/10/22 05/03/24 cholecalciferol (vitamin D3) 50 5,000 unit PO DAILY 10/21/22 05/03/24 mcg (2,000 unit) tablet (Vitamin D3) acetaminophen 500 mg tablet 1,000 mg (2 x 500 mg) PO Q8H #180 05/25/23 05/03/24 tabs aspirin 81 mg tablet,delayed 81 mg PO DAILY 07/20/23 05/03/24 release duloxetine 40 mg capsule,delayed 40 mg PO DAILY 08/17/23 05/03/24 release atorvastatin 40 mg tablet 40 mg PO DAILY 12/12/23 05/03/24 ferrous gluconate 324 mg (38 mg 324 mg PO DAILY #30 tabs 12/13/23 05/03/24 iron) tablet sucralfate 1 gram tablet (Carafate) 1 g PO QACHS PRN 02/23/24 05/03/24 Previous Rx's ?Medication ?Instructions ?Recorded acetaminophen 500 mg tablet 1,000 mg (2 x 500 mg) PO Q8H #180 05/25/23 tabs ferrous gluconate 324 mg (38 mg 324 mg PO DAILY #30 tabs 12/13/23 iron) tablet Allergies Allergy/AdvReac Type Severity Reaction Status Date / Time alendronate sodium (From Allergy Severe chest pain Verified 05/03/24 21:47 Fosamax) ezetimibe (From Zetia) Allergy Severe Anaphylaxsi Verified 05/03/24 21:47 s lisinopril (From Zestril) Allergy Severe angioedema Verified 05/03/24 21:47 amiodarone Allergy Mild Skin Rash Verified 05/03/24 21:47 amoxicillin Allergy Other (See Verified 05/03/24 21:47 Comment) iodine Allergy Keller skin Verified 05/03/24 21:47 nitrofurantoin (From Allergy Other (See Verified 05/03/24 21:47 Macrobid) Comment) oxycodone Allergy Other (See Verified 05/03/24 21:47 Comment) propoxyphene (From Allergy Other (See Verified 05/03/24 21:47 Darvocet-N) Comment) pravastatin sodium (From AdvReac Severe dizziness Verified 05/03/24 21:47 Pravachol) celecoxib (From Celebrex) AdvReac Intermediate n/v/d Verified 05/03/24 21:47 gabapentin (From Neurontin) AdvReac Intermediate n/v/d Verified 05/03/24 21:47 simvastatin (From Zocor) AdvReac Intermediate mylagia Verified 05/03/24 21:47 povidone-iodine (From AdvReac Mild Skin Rash Verified 05/03/24 21:47 Betadine) codeine (Codeine) AdvReac n/v/d Verified 05/03/24 21:47 ibandronate sodium (From AdvReac joint pain Verified 05/03/24 21:47 Boniva) propoxyphene napsylate (From AdvReac n/v/d Verified 05/03/24 21:47 Darvocet-N 100) kiwi Allergy Severe Anaphylaxsi Uncoded 05/03/24 21:47 s Ivory Soap Allergy Itching Uncoded 05/03/24 21:47 adhesive tape AdvReac Skin Rash Uncoded 05/03/24 21:47 General Stated Complaint: Orthopedic MARJORIE: 3 Exam Const General: cooperative and no acute distress HENMT Head: normal to inspection, normocephalic and atraumatic Ears: external ears normal General nose exam: external nose normal Face and sinus: normal facial exam Mouth: oral mucosae normal Eyes General: appearance normal, both eyes and all related structures Sclera: sclerae normal Cornea: corneas normal Pupils: PERRL Neck Neck: full ROM and supple Chest Chest: normal inspection of the chest and no tenderness Resp Effort & Inspection: normal respiratory effort and able to speak in complete sentences Auscultation: clear to auscultation bilaterally Cardio Rate: regular rate Rhythm: regular rhythm GI Inspection: normal to inspection Palpation: soft Auscultation: normal bowel sounds Back/Spine/Pelvis Back: No no CVA tenderness and No back tenderness Pelvis: pain with anterior-posterior compression Neuro General: patient oriented x3, moves all extremities, normal light touch, pain and propioception, no focal motor deficits and CN's II-XI intact bilaterally Cognition: normal cognition Speech: speech normal Extrem Left lower extremity: hip/thigh; abnormal to inspection (No obvious bruising or crepitus to the left hip) and abnormal ROM (The leg is held in flexion and internal rotation consistent with a hip frac) Course Vital Signs Vital signs: Vital Signs Temperature 36.8 C 05/03/24 21:40 Pulse 87 05/03/24 21:40 Respiratory Rate 15 05/03/24 21:40 Blood Pressure 248/86 H 05/03/24 21:40 Pulse Oximetry 98 05/03/24 21:40 Temperature 36.8 C 05/03/24 21:40 Pulse 87 05/03/24 21:40 Respiratory Rate 15 05/03/24 21:40 Blood Pressure 248/86 H 05/03/24 21:40 Blood Pressure Position Sitting 05/03/24 21:40 Pulse Oximetry 98 05/03/24 21:40 Oxygen Delivery Method Room Air 05/03/24 21:40 Oxygen Flow Rate 0 05/03/24 21:40 Lab/Test Results Lab/Test Results: Laboratory Tests Range/Units 05/03/24 05/03/24 22:28 22:30 WBC (4.4-10.8) 10^3/uL 12.09 H RBC (3.93-5.22) 10^6/uL 4.33 Hgb (11.2-15.7) g/dL 12.6 Hct (36.0-46.0) % 38.3 MCV (80-95) fL 89 MCH (27.0-33.0) pg 29.1 MCHC (32.0-36.0) % 32.9 RDW (11.7-14.6) % 13.3 Plt Count (130-400) 10^3/uL 216 MPV (8.0-11.0) fL 9.9 Immature Gran % % 0.6 Neutrophils % % 76.8 Lymphocytes % % 14.3 Monocytes % % 5.0 Eosinophils % % 2.8 Basophils % % 0.5 Nucleated RBC % (0.0-0.3) % 0.0 Absolute Neutrophils (1.2-6.7) 10^3/uL 9.29 H Absolute Lymphocytes (1.2-3.4) 10^3/uL 1.73 Absolute Monocytes (0.1-0.8) 10^3/uL 0.60 Absolute Eosinophils (0.0-0.7) 10^3/uL 0.34 Absolute Basophils (0.0-0.2) 10^3/uL 0.06 PT (9.1-11.1) sec 9.9 INR (0.9-1.1) 1.0 APTT (20.6-30.2) sec 26.4 Sodium (136-145) mmol/L 139 Potassium (3.5-5.1) mmol/L 4.3 Chloride (98-107) mmol/L 102 Carbon Dioxide (21.0-32.0) mmol/L 35.1 H Anion Gap (3-11) mmol/L 1.9 L BUN (7-18) mg/dL 25 H Creatinine (0.55-1.02) mg/dL 1.1 H Est GFR (CKD-EPI 2020) (mL/min/1.73m2) 51.11 Glucose (74-106) mg/dL 94 Calcium (8.5-10.1) mg/dL 9.7 Magnesium (1.8-2.4) mg/dL 1.9 Troponin I (<or=51) ng/L 12 ABO/Rh O Positive Antibody Screen NEGATIVE Medical Decision Making The patient was seen and examined. She appears in a moderate amount of distress and does have a relatively high blood pressure but this improved with repositioning of her leg and IV Tylenol here in the emergency room. The patient has a modestly elevated creatinine here, so we will have held off on any IV Toradol in the short-term. The remainder of the patient's workup is essentially negative or laboratory values are not specifically concerning. The patient does have a modest alkalosis, which may be consistent with some mild volume depletion. This would be consistent with her increased BUN and creatinine. The patient has relatively well-controlled diabetes considering she uses injectable insulin. I discussed the case with the hospitalist service, Dr. Rodriguez, who agreed to see the patient for admission to the hospitalist service with orthopedic consultation for evaluation and ORIF of the right hip fracture. 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 causes (Acute) Contusion of left great toe with damage to nail (Acute) Cellulitis (Acute) Dystrophia unguium (Acute) Asymmetrical sensorineural hearing loss (Acute) S/P LORETTA-BSO (Acute) Insomnia (Acute) Renal insufficiency (Chronic) CTS (carpal tunnel syndrome) (Acute) Ventricular arrhythmia (Acute) Spinal stenosis, lumbar (Acute) spinal fusion L4/5 Degenerative joint disease of spine (Acute) Loss of balance (Acute) GERD (gastroesophageal reflux disease) (Chronic) Osteoarthritis of fingers of both hands (Acute) Actinic keratoses (Acute) Urinary incontinence (Acute) with recurrent UTIs ICD (implantable cardioverter-defibrillator) in place (Acute 11/13/15) Medtr[employer] John II VR, single lead [id number], [facility] [place] 07/01/2009 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 Controlled with insulin pump Essential hypertension (Acute 11/13/15) Corns and callosities (Acute) Tumor of parotid gland (Acute) Sinusitis (Acute) Charcot foot due to diabetes mellitus (Acute) Follow up (Acute) Medical History (Updated 05/04/24 @ 00:56 by Brandyn Johnson MD) Depression UTI (urinary tract infection) Coronary artery disease Diabetes Hyperlipemia Mass of parotid gland CAD (coronary artery disease) (11/13/15) HTN (hypertension) History of tobacco use Abnormal mammogram of right breast History of sudden cardiac arrest (11/13/15) Mass of right parotid gland History of pneumothorax S/P CABG (coronary artery bypass graft) (06/26/09) History of sudden cardiac arrest (06/21/09) Surgical History S/P CABG (coronary artery bypass graft) (11/13/15) History of cataract surgery Hx of cholecystectomy H/O breast biopsy History of bilateral salpingo-oophorectomy (BSO) History of total abdominal hysterectomy Family History Father Heart disease Hypertension Mother Diabetes Heart disease Hypertension Social History Smoking/Tobacco Use Status: Former Tobacco Use Smoking risk assessment performed?: Yes Alcohol Intake: current Alcohol Intake frequency: holidays/special occasions only Alcohol type: wine Drug use: Never Household members: none Housing: house What is your relationship status?: Panel score (0-1 are the most socially isolated patients): 0 Do you feel safe at home: Yes Do you feel safe in your relationship?: Yes
[2024-05-04] MEDS: MORPHine 2 MG/ML SYR IVP (03:47)
[2024-05-04] MEDS: Acetaminophen 500 MG TAB 1000 MG PO ×2 (05:58→20:27)
--- NOTE | 2024-05-04 07:35 | OCONE_ITS ---
Date of service: 05/04/24 Time of Service: 07:35 History of Present Illness History of Present Illness Chief Complaint: Right Hip Fracture Narrative: Liane is a 78-year-old female who slipped and fell onto her right hip today at home while changing close from the dryer. Unfortunately, she fell last year in May suffering a left intertrochanteric hip fracture which was fixed by Dr. Penaloza. She recovered well from this. She feels that she was doing well at home when she slipped and fell onto the right side, feeling something crunch and having immediate pain. She is brought to the emergency department diagnosed with a minimally displaced intertrochanteric hip fracture. She denies any preinjury pain about the right hip. She denies any numbness or tingling. She did not hit her head. Consults Consult date: 05/04/24 Requesting physician: Shukri Rodriguez Consult Reason Right intertrochanteric hip fracture Assessment and Plan Assessment and plan (1) Closed intertrochanteric fracture of right hip: Status: Acute Assessment and plan: Liane is a 78-year-old female who suffered a mechanical fall onto the right hip which resulted in a minimally displaced intertrochanteric hip fracture. Given the nature of the fracture I do recommend fixation. This is similar to what she had on the left side. I discussed the treatment options with Liane. I reviewed the technical details of hip fracture fixation. I discussed the risk to include bleeding, infection, pain, stiffness, fracture, hardware failure, hardware prominence, malunion, nonunion, blood clot, damage nerves and vessels, damage to muscle and tendons, weakness, need for repeat procedures. Despite these risk, she elects to proceed. She is NPO. Currently she is boarding in the emergency department but expects to have a bed on the medical surgical floor later today. Likely proceed to surgery today. (2) Osteoporosis: Status: Chronic Assessment and plan: She does have osteoporosis as defined by fall from standing height. This is now her second hip fracture in less than a year. Therefore, I would recommend treatment for her bone health. She has allergies to Boniva and Fosamax. However, I do not know if that necessarily precludes trying a longer acting bisphosphonate for better treatment, such as zoledronic acid. The other option would be the consideration of denosumab. In a recent study by [facility] in addition to previously done trials, there is a significant protection and mortality and in second fracture with the administration of a long-acting bisphosphonate during the admission for the hip fracture. Her calcium and creatinine are both within range that this could be considered. Will discuss with hospitalist team. Review of Systems All systems reviewed & are unremarkable except as noted in HPI and below PFSH All Active Problems (Updated 05/04/24 @ 07:41 by Jusitce Carrillo MD) Osteoporosis (Chronic) Closed intertrochanteric fracture of right hip (Acute) DVT prophylaxis (Acute) CKD stage 3a, GFR 45-59 ml/min (Acute) Closed hip fracture (Acute) Iron deficiency anemia (Acute) Hypoglycemia due to insulin (Acute) Hyperglycemia (Acute) Skin ulcer of left ankle (Acute) Atherosclerosis of artery of both lower extremities (Acute) On deep vein thrombosis (DVT) prophylaxis (Acute) Intertrochanteric fracture of left hip (Acute 05/22/23) Diabetes mellitus with foot ulcer due to multiple causes (Acute) Contusion of left great toe with damage to nail (Acute) Cellulitis (Acute) Dystrophia unguium (Acute) Asymmetrical sensorineural hearing loss (Acute) S/P LORETTA-BSO (Acute) Insomnia (Acute) Renal insufficiency (Chronic) CTS (carpal tunnel syndrome) (Acute) Ventricular arrhythmia (Acute) Spinal stenosis, lumbar (Acute) spinal fusion L4/5 Degenerative joint disease of spine (Acute) Loss of balance (Acute) GERD (gastroesophageal reflux disease) (Chronic) Osteoarthritis of fingers of both hands (Acute) Actinic keratoses (Acute) Urinary incontinence (Acute) with recurrent UTIs ICD (implantable cardioverter-defibrillator) in place (Acute 11/13/15) [employer] John II VR, [place] lead [id number][place] [facility] [place] 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) History of sudden cardiac arrest (06/21/09) Surgical History S/P CABG (coronary artery bypass graft) (11/13/15) History of cataract surgery Hx of cholecystectomy H/O breast biopsy History of bilateral salpingo-oophorectomy (BSO) History of total abdominal hysterectomy Family History Father Heart disease Hypertension Mother Diabetes Heart disease Hypertension Social History Smoking/Tobacco Use Status: Former Tobacco Use Smoking risk assessment performed?: Yes Alcohol Intake: current Alcohol Intake frequency: holidays/special occasions only Alcohol type: wine Drug use: Never Household members: none Housing: house What is your relationship status?: Panel score (0-1 are the most socially isolated patients): 0 Do you feel safe at home: Yes Do you feel safe in your relationship?: Yes Additional Social history: Lives alone in [place]. in [facility], but supportive. Two daughters in the region. Exam Narrative Exam Narrative: Supine in the hospital stretcher. No acute distress. Alert and orient x 3. Resting when I entered the room. Awakes and participates appropriately. Evaluation the right lower extremity shows some very faint external rotation of the right leg. The right leg is evaluated shows no signs of skin breakdown, lacerations, or abrasions. No ecchymosis. There is no pain to palpation of the distal femur or of the knee. Sensation intact to light touch over the deep and superficial peroneal nerve and tibial nerve. Cap refills less than 3 seconds with a palpable DP pulse. Results Last Vital Signs Temp 36.8 C 05/03/24 21:40 Pulse 77 05/04/24 05:10 Resp 16 05/04/24 05:10 BP 149/58 H 05/04/24 04:45 Pulse Ox 90 L 05/04/24 05:10 Labs 05/03/24 22:28 05/03/24 22:28 Labs: Laboratory Results - last 24 hr 05/03/24 05/03/24 22:28 22:30 WBC 12.09 H RBC 4.33 Hgb 12.6 Hct 38.3 MCV 89 MCH 29.1 MCHC 32.9 RDW 13.3 Plt Count 216 MPV 9.9 Immature Gran % 0.6 Neutrophils % 76.8 Lymphocytes % 14.3 Monocytes % 5.0 Eosinophils % 2.8 Basophils % 0.5 Nucleated RBC % 0.0 Absolute Neutrophils 9.29 H Absolute Lymphocytes 1.73 Absolute Monocytes 0.60 Absolute Eosinophils 0.34 Absolute Basophils 0.06 PT 9.9 INR 1.0 APTT 26.4 Sodium 139 Potassium 4.3 Chloride 102 Carbon Dioxide 35.1 H Anion Gap 1.9 L BUN 25 H Creatinine 1.1 H Est GFR (CKD-EPI 2020) 51.11 Glucose 94 Calcium 9.7 Magnesium 1.9 Troponin I 12 ABO/Rh O Positive Antibody Screen NEGATIVE Imaging Imaging Studies: X-ray of the right hip and femur demonstrates a minimally displaced intertrochanteric hip fracture. There is some varus collapse seen on the AP view and some slight translation seen on the lateral view. No significant arthritic change. No other suspicious lesions.
[2024-05-04 08:22] LABS: Glucose 200 mg/dL (74-106)
[2024-05-04] MEDS: MORPHine 4 MG/ML SYR 2 MG IVP (09:20)
[2024-05-04] MEDS: Carvedilol 3.125 MG TAB PO ×2 (09:25→20:26)
[2024-05-04] MEDS: Valsartan 40 MG TAB PO (09:25)
[2024-05-04] MEDS: Esomeprazole 40 MG CAPCR PO (09:26)
[2024-05-04] MEDS: DULoxetine 20 MG CAP 40 MG PO (09:26)
[2024-05-04] MEDS: Cholecalciferol (Vitamin D3) 1,000 UNIT TAB 5000 UNITS PO (09:26)
[2024-05-04] MEDS: Insulin Aspart 300 UNITS/3 ML PEN SC ×2 (09:28→13:07)
[2024-05-04] MEDS: POTASSIUM CHLORIDE/D5-0.45NACL 1,000 ML 75 MEQ IV ×2 (09:29→18:20)
[2024-05-04] MEDS: Vitamins B Comp w/C TAB 1 TAB PO (09:32)
--- NOTE | 2024-05-04 10:59 | ANES.PREOP_ITS ---
General Info Date of Service Date Performed: 05/04/24 Height: 5 ft 8 in Weight: 84.368 kg Body Mass Index (BMI): 28.3 Surgical Procedure: Operation Date: 05/04/24 14:00 Proposed Procedure Side Surgeon p Hip TFNA Right Justice Carrillo MD Meds Allergies and Home Medications Allergies Allergy/AdvReac Type Severity Reaction Status Date / Time alendronate sodium (From Allergy Severe chest pain Verified 05/03/24 21:47 Fosamax) ezetimibe (From Zetia) Allergy Severe Anaphylaxsi Verified 05/03/24 21:47 s lisinopril (From Zestril) Allergy Severe angioedema Verified 05/03/24 21:47 amiodarone Allergy Mild Skin Rash Verified 05/03/24 21:47 amoxicillin Allergy Other (See Verified 05/03/24 21:47 Comment) iodine Allergy Keller skin Verified 05/03/24 21:47 nitrofurantoin (From Allergy Other (See Verified 05/03/24 21:47 Macrobid) Comment) oxycodone Allergy Other (See Verified 05/03/24 21:47 Comment) propoxyphene (From Allergy Other (See Verified 05/03/24 21:47 Darvocet-N) Comment) pravastatin sodium (From AdvReac Severe dizziness Verified 05/03/24 21:47 Pravachol) celecoxib (From Celebrex) AdvReac Intermediate n/v/d Verified 05/03/24 21:47 gabapentin (From Neurontin) AdvReac Intermediate n/v/d Verified 05/03/24 21:47 simvastatin (From Zocor) AdvReac Intermediate mylagia Verified 05/03/24 21:47 povidone-iodine (From AdvReac Mild Skin Rash Verified 05/03/24 21:47 Betadine) codeine (Codeine) AdvReac n/v/d Verified 05/03/24 21:47 ibandronate sodium (From AdvReac joint pain Verified 05/03/24 21:47 Boniva) propoxyphene napsylate (From AdvReac n/v/d Verified 05/03/24 21:47 Darvocet-N 100) kiwi Allergy Severe Anaphylaxsi Uncoded 05/03/24 21:47 s Ivory Soap Allergy Itching Uncoded 05/03/24 21:47 adhesive tape AdvReac Skin Rash Uncoded 05/03/24 21:47 Home Medication ?Medication ?Instructions ?Recorded insulin aspart U-100 100 unit/mL 100 unit SQ DAILY 08/28/12 subcutaneous cartridge (Novolog PenFill U-100 Insulin aspart) insulin glargine 100 unit/mL 28 units SQ DAILY PRN insulin pump 10/18/12 subcutaneous solution (Lantus failure U-100 Insulin) cranberry extract 250 mg capsule 250 mg PO DAILY 11/05/20 glucagon 1 mg/0.2 mL subcutaneous 1 mg subcut ONCE 11/05/20 auto-injector vitamin B complex (B 1 tab PO DAILY 11/25/21 Complex-Vitamin B12 tablet) esomeprazole magnesium 40 mg 40 mg PO DAILY 12/30/21 capsule,delayed release pyridoxine (vitamin B6) 100 mg 200 mg PO DAILY 04/29/22 tablet insulin regular human 100 unit/mL See Rx Instructions subcut 05/09/22 injection solution (Novolin R USEASDIRECTD Regular U-100 Insulin) meclizine 25 mg tablet 25 mg PO .Q6hrs PRN 05/09/22 valsartan 40 mg tablet 40 mg PO .COMPLEX PRN 05/10/22 cholecalciferol (vitamin D3) 50 5,000 unit PO DAILY 10/21/22 mcg (2,000 unit) tablet (Vitamin D3) acetaminophen 500 mg tablet 1,000 mg (2 x 500 mg) PO Q8H #180 05/25/23 tabs aspirin 81 mg tablet,delayed 81 mg PO DAILY 07/20/23 release duloxetine 40 mg capsule,delayed 40 mg PO DAILY 08/17/23 release atorvastatin 40 mg tablet 40 mg PO DAILY 12/12/23 ferrous gluconate 324 mg (38 mg 324 mg PO DAILY #30 tabs 12/13/23 iron) tablet sucralfate 1 gram tablet (Carafate) 1 g PO QACHS PRN 02/23/24 carvedilol 3.125 mg tablet 3.125 mg PO .QD 05/04/24 duloxetine 20 mg capsule,delayed 20 mg PO DAILY 05/04/24 release Current Visit Medications: Current Medications Generic Name Dose Route Start Last Admin Trade Name Freq PRN Reason Stop Dose Admin Acetaminophen 1,000 mg 05/04/24 06:00 05/04/24 05:58 Acetaminophen 500 Mg Tab PO 1,000 mg Q8H [facility] Administration Atorvastatin Calcium 40 mg 05/04/24 20:00 Atorvastatin 40 Mg Tab PO QPM [facility] Carvedilol 3.125 mg 05/04/24 08:30 05/04/24 09:25 Carvedilol 3.125 Mg Tab PO 3.125 mg BID [facility] Administration Cholecalciferol 5,000 units 05/04/24 08:30 05/04/24 09:26 Cholecalciferol (Vitamin D3) 1,000 Unit Tab PO 5,000 units DAILY [facility] Administration Dextrose 0 gm 05/04/24 01:01 Glucose Oral Gel 15 Gm/37.5 Gm Tube PO DIRECTED PRN Dextrose/Water 0 gm 05/04/24 01:01 Dextrose 50%-Water 25 Gm/50 Ml Syr IVP DIRECTED PRN Duloxetine HCl 40 mg 05/04/24 08:30 05/04/24 09:26 Duloxetine 20 Mg Cap PO 40 mg DAILY [facility] Administration Esomeprazole Magnesium 40 mg 05/04/24 07:30 05/04/24 09:26 Esomeprazole 40 Mg Capcr PO 40 mg 0730 [facility] Administration Potassium Chloride/Sodium Chloride 1,000 mls @ 75 mls/hr 05/04/24 07:15 05/04/24 09:29 Kcl 20meq/D5-0.45% Nacl IV 75 mls/hr INFUSION [facility] Administration IV Miscellaneous Supplies 1 each 05/03/24 22:30 Iv Access-Emergency Dept IV DIRECTED [facility] Insulin Aspart 0 - 9 units 05/04/24 08:00 05/04/24 09:28 Insulin Aspart 300 Units/3 Ml Pen SC 2 units 0800,1200,1700 [facility] Administration Protocol Insulin Glargine 30 units 05/04/24 20:00 Insulin Glargine 300 Units/3 Ml Pen SC HS [facility] Morphine Sulfate 2 mg 05/04/24 08:30 05/04/24 09:20 Morphine 4 Mg/Ml Syr IVP 2 mg Q2H PRN PRN Administration Polyethylene Glycol 17 gm 05/04/24 00:55 Polyethylene Glycol 3350 17 Gm Packet PO DAILY PRN PRN Constipation Pyridoxine HCl 200 mg 05/04/24 08:30 05/04/24 09:26 Pyridoxine 100 Mg Tab PO 200 mg DAILY [facility] Administration Sodium Chloride 0 ml 05/03/24 22:21 Normal Saline Flush 10 Ml Syr IVP PRN PRN Sodium Chloride 0 ml 05/04/24 08:30 Normal Saline Flush 10 Ml Syr IVP BID [facility] Sodium Chloride 0 ml 05/03/24 22:21 Normal Saline 10 Ml Vial IJ DIRECTED PRN Sucralfate 1 gm 05/04/24 07:30 Sucralfate 1 Gm Tab PO AC & HS PRN Valsartan 40 mg 05/04/24 08:30 05/04/24 09:25 Valsartan 40 Mg Tab PO 40 mg DAILY [facility] Administration Vitamin B Complex/Vitamin C 1 tab 05/04/24 08:30 05/04/24 09:32 Vitamins B Comp W/C Tab PO 1 tab DAILY [facility] Administration PFSH Active Problems Active Problems: Problem Status Onset Code Osteoporosis Chronic M81.0 Closed intertrochanteric fracture of right hip Acute S72.141A DVT prophylaxis Acute Z29.9 CKD stage 3a, GFR 45-59 ml/min Acute N18.31 Closed hip fracture Acute S72.009A Iron deficiency anemia Acute D50.9 Hypoglycemia due to insulin Acute E16.0, T38.3X5A Hyperglycemia Acute R73.9 Skin ulcer of left ankle Acute L97.329 Atherosclerosis of artery of both lower extremities Acute I70.203 On deep vein thrombosis (DVT) prophylaxis Acute Z79.899 Intertrochanteric fracture of left hip Acute 24 S72.142A Diabetes mellitus with foot ulcer due to multiple causes Acute E11.621, L97.509 Contusion of left great toe with damage to nail Acute S90.212A Cellulitis Acute L03.90 Dystrophia unguium Acute L60.3 Asymmetrical sensorineural hearing loss Acute H90.3 S/P LORETTA-BSO Acute Z90.710, Z90.722, Z90.79 Insomnia Acute G47.00 Renal insufficiency Chronic N28.9 CTS (carpal tunnel syndrome) Acute G56.00 Ventricular arrhythmia Acute I49.9 Spinal stenosis, lumbar Acute M48.061 Degenerative joint disease of spine Acute M47.9 Loss of balance Acute R26.89 GERD (gastroesophageal reflux disease) Chronic K21.9 Osteoarthritis of fingers of both hands Acute M19.041, M19.042 Actinic keratoses Acute L57.0 Urinary incontinence Acute R32 ICD (implantable cardioverter-defibrillator) in place Acute 11/13/15 Z95.810 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 Acute 11/13/15 E10.43 Essential hypertension Acute 11/13/15 I10 Corns and callosities Acute L84 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 Sinusitis Acute J32.9 Charcot foot due to diabetes mellitus Acute Follow up Acute Z09 Medical History Medical History Depression UTI (urinary tract infection) Coronary artery disease Diabetes Hyperlipemia Mass of parotid gland CAD (coronary artery disease) (11/13/15) HTN (hypertension) History of tobacco use Abnormal mammogram of right breast History of sudden cardiac arrest (11/13/15) Mass of right parotid gland History of pneumothorax S/P CABG (coronary artery bypass graft) (06/26/09) History of sudden cardiac arrest (06/21/09) Surgical History Surgical History S/P CABG (coronary artery bypass graft) (11/13/15) History of cataract surgery Hx of cholecystectomy H/O breast biopsy History of bilateral salpingo-oophorectomy (BSO) History of total abdominal hysterectomy Tobacco Smoking/Tobacco Use Status: Former Tobacco Use Alcohol Alcohol Intake: current Alcohol intake frequency: holidays/special occasions only Alcohol type: wine Substance Use Substance use: Never Vital Signs and Lab Results Vital Signs Most Recent Vital Signs in EMR: Most Recent Vital Signs Temp Pulse Resp BP Pulse Ox 36.8 C 68 15 102/37 L 100 05/03/24 21:40 05/04/24 10:46 05/04/24 10:50 05/04/24 10:46 05/04/24 09:50 Point of Care Results Point of Care Results: Finger Stick Blood Glucose 200 05/04/24 09:28 Lab Results 05/03/24 22:28 05/04/24 08:05 Blood Type / Crossmatch: 2 Antibody Screen NEGATIVE 05/03/24 Complete Blood Count: 2 White Blood Count 12.09 10^3/uL (4.4-10.8) H 05/03/24 22:28 Red Blood Count 4.33 10^6/uL (3.93-5.22) 05/03/24 22:28 Hemoglobin 12.6 g/dL (11.2-15.7) 05/03/24 22:28 Hematocrit 38.3 % (36.0-46.0) 05/03/24 22:28 Platelet Count 216 10^3/uL (130-400) 05/03/24 22:28 Complete Metabolic Panel: 2 Sodium 139 mmol/L (136-145) 05/03/24 22:28 Potassium 4.3 mmol/L (3.5-5.1) 05/03/24 22:28 Chloride 102 mmol/L (98-107) 05/03/24 22:28 Carbon Dioxide 35.1 mmol/L (21.0-32.0) H 05/03/24 22:28 BUN 25 mg/dL (7-18) H 05/03/24 22:28 Creatinine 1.1 mg/dL (0.55-1.02) H 05/03/24 22:28 Est GFR (CKD-EPI 2020) 51.11 (mL/min/1.73m2) 05/03/24 22:28 Magnesium 1.9 mg/dL (1.8-2.4) 05/03/24 22:28 Calcium 9.7 mg/dL (8.5-10.1) 05/03/24 22:28 Glucose 200 mg/dL (74-106) H 05/04/24 08:05 Liver Function Panel: 2 No Data to Display Coagulation Panel: 2 INR International Normalized Ratio 1.0 (0.9-1.1) 05/03/24 22:2 8 Prothrombin Time 9.9 sec (9.1-11.1) 05/03/24 22:28 Activated Partial Thromboplast Time 26.4 sec (20.6-30.2) 22:28 Cardiac Panel: 2 Troponin I 12 ng/L (<or=51) 05/03/24 Arterial Blood Gas: 2 No Data to Display Venous Blood Gas: 2 No Data to Display Pancreas Panel: 2 No Data to Display Thyroid Panel: 2 No Data to Display Infectious Disease: 2 No Data to Display Blood Cultures: 2 No Data to Display Toxicology Panel: 2 No Data to Display Imaging and Studies Imaging and Studies Study information below may be from another EMR and interpreted by another provider. Please see original notes in EMR for more complete details. EKG Summary: 05/22/2023: Exam: Resting ECG Reason for Exam: Pre OP Patient Location: E HR:88 bpm ECG Measurements Heart Rate 88 AXIS MT 203 P 53 QRSd 72 QRS 42 QT 378 T64 QTc 457 Conclusion Sinus rhythm...normal P axis, V-rate 60- 99 Low voltage, extremity and precordial leads...extremity<0.5mV, precordial<1.0mV Anesthesia Assessment and Plan Anesthesia History Personal History: No History of Anesthesia Complications Family History: No Family History of Anesthesia Complications Exercise Tolerance Exercise Tolerance: Metabolic Equivalents>4 Cardiac & Pulmonary Exam Cardiac Exam: Normal S1/S2 Heart Sounds Pulmonary Exam: Clear Bilateral Breath Sounds Implantable Cardiac Device Does patient have a Pacemaker or an ICD?: Yes Device Sander Hand:: [place] [employer] Reason for Placement:: arrest Date of Last Device Interrogation:: recently Airway Exam Known Difficult Airway: No Mallampati Class: 1 Mouth Opening: Normal (> 3cm) Thyromental Distance: Greater than 3 cm Neck Range of Motion: Full ROM Neck Circumference: Normal Teeth Condition: Removable Dentures/Plates Upper ASA Classification ASA Score: ASA 3 Emergency Case?: No NPO Status NPO Status: NPO Clears >2 hours, Solids >8 hours Anesthesia Plan Resuscitation Status: Full Code Anesthesia Technique: General Anesthesia Airway Planned: Endotracheal Tube Monitors Used: Standard Monitors Preoperative Comments:: 78 yo female in the ED with hip fracture to the OR for fixation. Sig PMHx: AICD/CAD ([facility] VF arrest 2009 --> cath -> 2v CABG. pacer recently interrogated with slight increase in VT runs, meds switched around), , CKDIII, spinal stenosis/fusion, DM1, former smoker. Previous Anes: - hip fx, prop, glide 3 grade 1. no issues.
--- NOTE | 2024-05-04 12:01 | W.INDIABCONS ---
Date of service: 05/04/24 Time of Service: 12:01 Diabetes Inpatient Consult Reason for Visit: Nutrition consult regading diabetes mgt and education DESCRIPTION/ASSESSMENT: 78yo female who I am currently unable to visit due to pt in surgery post hip fracture. Hx of type I diabetes (charcot food d/t neuropathy), CAD, osteoporosis, CKD 3 with current GFR at 51, iron def anemia, GERD, tumor of parotid gland. A1c at 6.7% last September. note in consult states it is now at 9 after coming off insulin pump. home meds include insulin glargine and novolog, aspirin, carvedilol and atorvastatin. glucose managed this admission currently with sliding scale novolog TID and 28u glargine. fasting glu at 200 this morning and 200 at breakfast meal as well. UACR was 28.5 last February. Lives alone in [place] with family supports in the region per social hx. Current BMI at 28.3 with weight hx trending towards weight gain since 2020. Current estimated energy needs : 1777kcals (recommend 1500 to trend weight reduction), 66-88g protein (15-20% estimated energy) and 1777mL fluid (1mL per required kcal). Suggested total carb goal of 150-170g with no more than 25g added sugar per day and at least 25 fiber per day. Kiwi allergy noted - relayed to kitchen. INTERVENTION: Pt current GFR could be supportive of an SGLT2-i if no other containdications. Pt may benefit from education in outpatient setting - unable to assess desire due to down in surgery currently PLAN: Will monitor pt weight, labs, po intake, and desire to work in the outpatient setting to help with any glucose mangement goals. Time Spent in Nutritional Counseling and Treatment: 0
--- NOTE | 2024-05-04 14:37 | PDOC.CMIN ---
Date of service: 05/04/24 Time of Service: 14:38 Care Management Initial Assmt Initial Assessment Reason for Hospitalization: Right hip fracture Functional Status/Living Situation Patient Presentation: Liane went to the OR today; CM met with her shortly after she was settled into her room on med/surge. She was lying in bed with her , Jose, by her side. She stated that she is very tired, but glad to be settled in her room, as she spent last night in the ED, and was there up until she went to the OR. She will be evaluated by PT tomorrow, which will help direct her discharge plan, depending on how well she is able to mobilize. She lives alone, but her lives nearby and is supportive. CM will continue to follow. Town of Residence: [place] Resides with: Alone Significant Other/Family: Local Natural Supports: , Jose (do not live together, but are very supportive of each other) Daughter, Laura, lives in [place] Employment Status: Unemployed Instrumental Activities of Daily Living (ADLs): Independent Activities/Hobbies/SocialSupport: Liane likes to stay busy, and has been employed until recently. Medications Medication Management: No Issues/Barriers identified Advance Directives Advance Directives: Do you have an Advance Directive: N 11/17/20 09:52 AD On File at [facility]: N 11/17/20 09:52 Date Asked 05/03/24 05/03/24 21:43 AD Date Reviewed COLST On File at [facility] COLST Date Scanned Code Status Resuscitation Status Full Code Insurance Coverage/Financial Issues Insurance: [facility]/ supplement Care Team Visit Care Team Role Provider Type Vinayak Downs MD Primary Care Provider NON-[facility] STAFF PHYSICIAN Alexander Maloney MD Other Providers [facility] STAFF PHYSICIAN Kaylin Solares, FABIENNEN, CDCES Other Providers BIOSTATISTICS MANAGER Sera Barraza Other Providers BIOSTATISTICS MANAGER Deepthi Domingo MD Other Providers [facility] STAFF PHYSICIAN LAURA Cain Other Providers RN FOR MSM OR LAURA Busby Other Providers PHYSICIANS ASSISTANT Justice Carrillo MD Other Providers [facility] STAFF PHYSICIAN LAURA Carranza Other Providers PHYSICIANS ASSISTANT Brenda Das Other Providers PHYSICIANS ASSISTANT Julien Penaloza MD Other Providers [facility] STAFF PHYSICIAN Ruben Smith CRNA Other Providers CERT REG NURSE AIR BRAKES INSPECTOR LAURA Riggs Other Providers PHYSICIANS RAWHIDE TRIMMER Jonas Doss RDN Other Providers BIOSTATISTICS MANAGER Brandyn Johnson MD Emergency Provider [facility] STAFF PHYSICIAN Shukri Rodriguez Admit Provider [facility] STAFF PHYSICIAN Attending Provider Discharge Potential Discharge Needs: PT Evaluation and PCP F/U Appt Anticipated Barriers to Discharge: None Identified Patient/Family Education Needs: Review discharge instructions, discuss Ask Me Three Transportation: Private vehicle Plan: Liane will return home once medically cleared, possibly with new services, if indicated. Her will drive her home via private vehicle when ready. She will follow up with her PCP and discharge plan of care. CM will continue to follow. Social Determinants of Health Screening Will the Patient Participate in the Screening?: Declined to provide PFSH All Active Problems (Updated 05/04/24 @ 07:41 by Justice Carrillo MD) Osteoporosis (Chronic) Closed intertrochanteric fracture of right hip (Acute) DVT prophylaxis (Acute) CKD stage 3a, GFR 45-59 ml/min (Acute) Closed hip fracture (Acute) Iron deficiency anemia (Acute) Hypoglycemia due to insulin (Acute) Hyperglycemia (Acute) Skin ulcer of left ankle (Acute) Atherosclerosis of artery of both lower extremities (Acute) On deep vein thrombosis (DVT) prophylaxis (Acute) Intertrochanteric fracture of left hip (Acute 05/22/23) Diabetes mellitus with foot ulcer due to multiple causes (Acute) Contusion of left great toe with damage to nail (Acute) Cellulitis (Acute) Dystrophia unguium (Acute) Asymmetrical sensorineural hearing loss (Acute) S/P LORETTA-BSO (Acute) Insomnia (Acute) Renal insufficiency (Chronic) CTS (carpal tunnel syndrome) (Acute) Ventricular arrhythmia (Acute) Spinal stenosis, lumbar (Acute) spinal fusion L4/5 Degenerative joint disease of spine (Acute) Loss of balance (Acute) GERD (gastroesophageal reflux disease) (Chronic) Osteoarthritis of fingers of both hands (Acute) Actinic keratoses (Acute) Urinary incontinence (Acute) with recurrent UTIs ICD (implantable cardioverter-defibrillator) in place (Acute 11/13/15) [employer] John II VR, single lead [id number], [facility] [place] 07/01/2009 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) History of sudden cardiac arrest (06/21/09) Surgical History S/P CABG (coronary artery bypass graft) (11/13/15) History of cataract surgery Hx of cholecystectomy H/O breast biopsy History of bilateral salpingo-oophorectomy (BSO) History of total abdominal hysterectomy Family History Father Heart disease Hypertension Mother Diabetes Heart disease Hypertension Social History Smoking/Tobacco Use Status: Former Tobacco Use Smoking risk assessment performed?: Yes Alcohol Intake: current Alcohol Intake frequency: holidays/special occasions only Alcohol type: wine Drug use: Never Household members: none Housing: house What is your relationship status?: Panel score (0-1 are the most socially isolated patients): 0 Do you feel safe at home: Yes Do you feel safe in your relationship?: Yes Additional Social history: Lives alone in [place]. in [facility], but supportive. Two daughters in the region.
[2024-05-04] MEDS: Lactated Ringers 1,000 ML 30 ML IV (14:43)
--- NOTE | 2024-05-04 14:45 | ROE_ITS ---
Operative Note Operative Note PRE-OP DIAGNOSIS: Right Intertrochanteric Femur Fracture POST-OP DIAGNOSIS: same PROCEDURE: RIGHT Intramedullary Fixation of Proximal Femur Fracture SURGEON: Jutsice Carrillo ANESTHESIA TYPE: General LMA/ETT Refer to Anesthesia Record ESTIMATED BLOOD LOSS: 50 PATHOLOGY: none sent COMPLICATIONS: None Patient was transported to: PACU Patient's condition: stable Implants: Depuy-Synthes TFNA 12mm x 170mm Indications: Liane is a 78 year old female who presented to the Emergency Department after a fall. X-rays confirmed the diagnosis of a intertrochanteric fracture of the proximal femur. I reviewed the possible treatment options and given the fracture of the femur, I recommened operative fixation. I discussed the technical details of the surgery. I reviewed the risks such as bleeding, infection, pain, stiffness, malunion, nonunion, hardware prominence, hardware faiilure, malrotation, avascular necrosis, blood clot. Despite these risks, she agreed to proceed. Findings: There was a fracture of the proximal femur which was able to be reduced with traction and internal rotation and external manipulation. Procedure Description: Liane was taken back to the operating room. A general anesthestic was then administered. The feet were wrapped with cast padding and Coban and then placed into the boot liners and then into the boots. Care was taken to protect the skin and make sure the heels were fully down and the boots were stable. The patient was then positioned onto the HANA table. Both legs were held in a neutral position. SCDs were applied. The patient was then slid down onto a perineal post. The arm of the operative side was then placed across the chest and secured. The nonoperative leg was scissored. A gentle reduction was then performed with traction and internal rotation and gentle external manipulation. Prophylactic antibiotics in the form of Cefazolin were administered. 1g of Tranxemic Acid was given intravenously within 30 minutes of incision. The right leg was then prepped with Chloraprep and draped in a standard fashion with shower-curtain type drape with Iodine impregnated skin protection. A timeout to confirm correct identity, side and site, procedure, allergies, anesthesia, and medical concerns was performed. Using fluoroscopy, the starting point was marked over the lateral hip, proximal to the tip of the greater trochanter. A 3cm incision was made through skin and the fascia of the gluteus musculature until the tip of the trochanter was palpable. The starting wire was placed onto the tip, just slightly on the media aspect, and centered in the AP plane. Using a shayy, the starting guide wire was buried into the bone. A lateral x-ray confirmed appropriate position and the guidewire was advanced to the level of the lesser trochanter. With a tissue protector, the proximal femur was opened with the opening reamer. The short TFNA was chosen for this case and a Synthes TFNA [id number] nail was selected and opened on the back table. The nail was assembled to the aiming arm on the back table and confirmed to be aligned with the triple sleeve for blade insertion. Using manual force the nail was advanced into the femur. A few light mallet blows advanced the nail to its appropriate position. The triple sleeve was inserted through the targeting arm and the skin, soft tissue, and IT band was then incised. The triple sleeve was advanced down to the lateral femur. A guidewire was advanced into the femoral head where it was noted to be centered. A lateral x-ray was used to confirm centered positioning on the lateral. Happy with the length of the guidewire, t his was measured. A 100mm helical blade was opened. The lateral cortex was opened and the path of the blade was reamed with a tapered reamer to appropriate depth. The helical blade was malletted into position and confirmed to be appropriately located on fluoroscopy. The set screw was advanced to a half turn shy of fully tightened, allowing for the helical blade to slide. The targeting device was removed. AP and lateral x-rays of the hip confirmed appropriate positioning within the femur and with good alignment of the fracture. Using the targeting arm, the skin was incised for placement of the distal locking screw. The trochar was inserted through the skin and IT band down onto the lateral cortex of the femur. The 4.2mm drill was advanced across the femur and through the nail. This was measured and an appropriately sized 5.0mm screw was placed. The targeting arm was removed. Final x-rays were obtained. The wounds were thoroughly irrigated. A cocktail consisting of 123mg of Ropivacaine, 0.25mg of Epinephrine, 0.04mg of Clonidine, and 15mg of Ketorolac, diluted to 50cc was injected throughout the wounds both deep and superficially. The deep fascia of the proximal two wounds was reapproximated with a 0 Vicryl. The deep tisses were closed with a 2-0 Vicryl and the skin was closed with a running subcuticular Monocryl. The wounds were dressed with a Mepilex silver d ressing. At the end of the case, all counts were correct. Liane tolerated the procedure well without known complication and was taken to the PACU for recovery. Physical therapy will start post-operatively, weigh-bearing as tolerated with assistive devices. Anticoagulation will start within 12-24 hours. 3 doses of post-operative antibitiocis for prophylaxis will be administered. Date of Procedure: 05/04/24
--- NOTE | 2024-05-04 15:40 | PHA.REVIEW2 ---
Pharmacy Admission Review Admission Clinical Review Admission Pharmacy Review: Closed intertrochanteric fracture of right hip (Acute) DVT prophylaxis (Acute) CKD stage 3a, GFR 45-59 ml/min (Acute) Closed hip fracture (Acute) Iron deficiency anemia (Acute) 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 (Acute 11/13/15) Essential hypertension (Acute 11/13/15) alendronate sodium (From Fosamax) Allergy (Severe, Verified 05/03/24 21:47) chest pain ezetimibe (From Zetia) Allergy (Severe, Verified 05/03/24 21:47) Anaphylaxsis lisinopril (From Zestril) Allergy (Severe, Verified 05/03/24 21:47) angioedema amiodarone Allergy (Mild, Verified 05/03/24 21:47) Skin Rash amoxicillin Allergy (Verified 05/03/24 21:47) Other (See Comment) iodine Allergy (Verified 05/03/24 21:47) Keller skin nitrofurantoin (From Macrobid) Allergy (Verified 05/03/24 21:47) Other (See Comment) oxycodone Allergy (Verified 05/03/24 21:47) Other (See Comment) propoxyphene (From Darvocet-N) Allergy (Verified 05/03/24 21:47) Other (See Comment) pravastatin sodium (From Pravachol) Adverse Reaction (Severe, Verified 05/03/24 21:47) dizziness celecoxib (From Celebrex) Adverse Reaction (Intermediate, Verified 05/03/24 21:47) n/v/d gabapentin (From Neurontin) Adverse Reaction (Intermediate, Verified 05/03/24 21:47) n/v/d simvastatin (From Zocor) Adverse Reaction (Intermediate, Verified 05/03/24 21:47) mylagia povidone-iodine (From Betadine) Adverse Reaction (Mild, Verified 05/03/24 21:47) Skin Rash codeine (Codeine) Adverse Reaction (Verified 05/03/24 21:47) n/v/d ibandronate sodium (From Boniva) Adverse Reaction (Verified 05/03/24 21:47) joint pain propoxyphene napsylate (From Darvocet-N 100) Adverse Reaction (Verified 05/03/24 21:47) n/v/d kiwi Allergy (Severe, Uncoded 05/03/24 21:47) Anaphylaxsis Ivory Soap Allergy (Uncoded 05/03/24 21:47) Itching adhesive tape Adverse Reaction (Uncoded 05/03/24 21:47) Skin Rash Resuscitation Status Full Code Height 5 ft 8 in Weight 84.368 kg Comments Comments/Follow Ups: OR today Pharmacy Admission Review Renal Dosing Renal Dosing: BUN 25 mg/dL (7-18) H 05/03/24 22:28 Creatinine 1.1 mg/dL (0.55-1.02) H 05/03/24 22:28 Medications needing adjustments: Reviewed (CrCl 47.19 mL/min) List of meds needing interventions: Current medications are okay Anticoagulation Anticoagulation: Hgb 12.6 g/dL (11.2-15.7) 05/03/24 22:28 Hct 38.3 % (36.0-46.0) 05/03/24 22:28 Plt Count 216 10^3/uL (130-400) 05/03/24 22:28 INR 1.0 (0.9-1.1) 05/03/24 22:28 Creatinine 1.1 mg/dL (0.55-1.02) H 05/03/24 22:28 DVT Prophylaxis: Reviewed (TEDs/SCDs - OR today) Opiate Usage Evaluate Pain Scale/Pains Meds: Reviewed (morphine 2mg IVP q2h PRN - 2mg/24hrs) Scheduled Bowel Reg ordered if on Opiates?: No (PRN Miralax) Relevant Labs Relevant Labs: Sodium 139 mmol/L (136-145) 05/03/24 22:28 Potassium 4.3 mmol/L (3.5-5.1) 05/03/24 22:28 Chloride 102 mmol/L (98-107) 05/03/24 22:28 Magnesium 1.9 mg/dL (1.8-2.4) 05/03/24 22:28 Electrolytes, C-Reactive P, ESR: Reviewed (No new labs for today) DM Control DM Control: Glucose 200 mg/dL (74-106) H 05/04/24 08:05 Finger Stick Blood Glucose 227 1307 Finger Stick Blood Glucose 227 1254 Finger Stick Blood Glucose 227 0928 Finger Stick Blood Glucose 200 0830 Finger Stick Blood Glucose 200 0200 DM Control: Reviewed Insulin Dosing, Diabetic Medication: Has order for SS insulin and glargine 30 units at bedtime Cardiac Review Cardiac Review: Troponin I 12 ng/L (<or=51) 05/03/24 22:28 Blood Pressure 165/52 1247 Blood Pressure 139/46 1240 Blood Pressure 109/48 1131 Blood Pressure 112/46 1059 Blood Pressure 102/37 1049 Blood Pressure 104/56 1001 Blood Pressure 147/99 0916 Blood Pressure 160/54 0831 Blood Pressure 149/79 0746 Blood Pressure 155/55 0701 BP, HR, EF%: Reviewed (HR WNL) List meds needing interventions: has order for carvedilol 3.125mg BID and valsartan 40mg daily QTc Review QTc: Reviewed (422 from 05/03/24) IV to PO Switch IV Medications: Reviewed (morphine) Home Meds Home Med List reviewed: Reviewed Relevent Home Meds Not ordered & why?: aspirin (on hold), cranberry extract, ferrous sulfate and meclizine (PRN) Current Meds Current Medication Order Review: Intervened Comments: Changed morphine order from 2mg/mL syringe to 4mg/mL syringe Added carvedilol as it was not on home med list but was already ordered Comments Comments/Follow Ups: OR today
--- NOTE | 2024-05-04 15:52 | DI.RAD_ITS ---
Exam(s) XR HIP RT IN OR EXAM: XR HIP RT IN OR CLINICAL HISTORY: RIGHT HIP FRACTURE. TECHNIQUE: 2D digital imaging was performed. COMPARISON: No exams were available for comparison FINDINGS: Fluoroscopy was provided during open reduction internal fixation of right hip fracture. See procedur e report for details. Total fluoroscopy time 41 seconds IMPRESSION: Radiation exposure index/cumulative dose:jameel Hays= 15.148mGy DATA REPOSITORY: RADIATION DOSE DELIVERED:
--- NOTE | 2024-05-04 16:16 | W.ANESPOSTOP ---
Postoperative Evaluation Date, Time and Location Date Performed: 05/04/24 Time Performed: 16:16 Patient Location: PACU Vital Signs Most Recent Imported Vital Signs: Most Recent Vital Signs Temp Pulse Resp BP Pulse Ox 36.8 C 74 20 165/52 H 100 05/03/24 21:40 05/04/24 13:20 05/04/24 13:20 05/04/24 12:47 05/04/24 13:20 Most Recent Manually Entered Vital Signs: Adult Blood Pressure: 155/45 Heart Rate: 77 Respirations: 16 Oxygen Saturation (%): 100 Temperature (C): 36.2 C Pain Score (0-10 Scale): 2 Pain Score Most Recent Pain Score: Most Recent Pain Score Pain Level 6 05/04/24 09:20 Assessment Mental Status: Arousable with meaningful communication Airway and Respiratory Function: Patent airway with normal (patient baseline) respiratory exam Cardiovascular Function: Hemodynamically Stable Hydration Status: Adequately Hydrated Nausea & Vomiting: No Nausea or Vomiting Pain: Pain is tolerable per patient Peripheral Nerve Block: Patient did not receive a nerve block
--- NOTE | 2024-05-04 16:31 | W.ANESPOSTOP ---
Postoperative Evaluation Date, Time and Location Date Performed: 05/04/24 Time Performed: 16:31 Patient Location: PACU Vital Signs Most Recent Imported Vital Signs: Most Recent Vital Signs Temp Pulse Resp BP Pulse Ox 36.4 C L 79 14 169/53 H 100 05/04/24 16:21 05/04/24 16:26 05/04/24 16:26 05/04/24 16:26 05/04/24 16:26 Most Recent Vital Signs Temp Pulse Resp BP Pulse Ox 36.8 C 74 20 165/52 H 100 05/03/24 21:40 05/04/24 13:20 05/04/24 13:20 05/04/24 12:47 05/04/24 13:20 Pain Score Most Recent Pain Score: Most Recent Pain Score Pain Level 3 05/04/24 1632 Assessment Mental Status: Awake (Alert & Oriented to Patient Baseline) Airway and Respiratory Function: Patent airway with normal (patient baseline) respiratory exam Cardiovascular Function: Hemodynamically Stable Hydration Status: Adequately Hydrated Nausea & Vomiting: No Nausea or Vomiting Pain: Pain is tolerable per patient Peripheral Nerve Block: Patient did not receive a nerve block
--- NOTE | 2024-05-04 17:04 | W.PC.ACHO ---
Registration Status: Primary Language: Preferred Language: ED Information & Data Chief Complaint Orthopedic 05/04/24 00:56 Other Complaint Fall/Non TraumaCriteria 05/03/24 21:40 Triage Note PT was doing laundry when 05/03/24 21:40 her socks slipped on the floor of her home onto her R hip. i knew id broken it. PT reports tenderness and pain in R hip. Pain made substantially worse with movement. PT denies loss of sensation. Substantial Hx of orthopedic surgery Medical / Surgical History (Last Reviewed 05/04/24 @ 07:37 by Justice Carrillo MD) Depression UTI (urinary tract infection) Coronary artery disease Diabetes Hyperlipemia Mass of parotid gland CAD (coronary artery disease) (11/13/15) HTN (hypertension) History of tobacco use Abnormal mammogram of right breast History of sudden cardiac arrest (11/13/15) Mass of right parotid gland History of pneumothorax S/P CABG (coronary artery bypass graft) (06/26/09) History of sudden cardiac arrest (06/21/09) (Last Reviewed 05/04/24 @ 07:37 by Justice Carrillo MD) S/P CABG (coronary artery bypass graft) (11/13/15) History of cataract surgery Hx of cholecystectomy H/O breast biopsy History of bilateral salpingo-oophorectomy (BSO) History of total abdominal hysterectomy Most Recent Vital Signs Temperature 36.1 C L 05/04/24 16:58 Temperature Source Temporal Artery Scan 05/04/24 16:58 Pulse 88 05/04/24 16:58 Pulse 83 05/04/24 16:36 Respiratory Rate 16 05/04/24 16:58 Blood Pressure 150/61 H 05/04/24 16:58 Blood Pressure Mean 106 05/04/24 16:36 Blood Pressure Position Sitting 05/03/24 21:40 Pulse Oximetry 98 05/04/24 16:58 Respiratory End-tidal CO2 33 05/04/24 16:36 Oxygen Delivery Method Room Air 05/04/24 16:58 Oxygen Flow Rate 0 05/04/24 16:58 Pain Level 0 05/04/24 16:58 Comment pt in NAD 05/04/24 10:46 Allergies alendronate sodium (From Fosamax) Allergy (Severe, Verified 05/03/24 21:47) chest pain ezetimibe (From Zetia) Allergy (Severe, Verified 05/03/24 21:47) Anaphylaxsis lisinopril (From Zestril) Allergy (Severe, Verified 05/03/24 21:47) angioedema amiodarone Allergy (Mild, Verified 05/03/24 21:47) Skin Rash amoxicillin Allergy (Verified 05/03/24 21:47) Other (See Comment) unk iodine Allergy (Verified 05/03/24 21:47) Keller skin nitrofurantoin (From Macrobid) Allergy (Verified 05/03/24 21:47) Other (See Comment) unk oxycodone Allergy (Verified 05/03/24 21:47) Other (See Comment) unk propoxyphene (From Darvocet-N) Allergy (Verified 05/03/24 21:47) Other (See Comment) unk pravastatin sodium (From Pravachol) Adverse Reaction (Severe, Verified 05/03/24 21:47) dizziness celecoxib (From Celebrex) Adverse Reaction (Intermediate, Verified 05/03/24 21:47) n/v/d gabapentin (From Neurontin) Adverse Reaction (Intermediate, Verified 05/03/24 21:47) n/v/d simvastatin (From Zocor) Adverse Reaction (Intermediate, Verified 05/03/24 21:47) mylagia povidone-iodine (From Betadine) Adverse Reaction (Mild, Verified 05/03/24 21:47) Skin Rash codeine (Codeine) Adverse Reaction (Verified 05/03/24 21:47) n/v/d ibandronate sodium (From Boniva) Adverse Reaction (Verified 05/03/24 21:47) joint pain propoxyphene napsylate (From Darvocet-N 100) Adverse Reaction (Verified 05/03/24 21:47) n/v/d kiwi Allergy (Severe, Uncoded 05/03/24 21:47) Anaphylaxsis Ivory Soap Allergy (Uncoded 05/03/24 21:47) Itching adhesive tape Adverse Reaction (Uncoded 05/03/24 21:47) Skin Rash Active Medications Generic Name Dose Route Start Last Admin Trade Name Freq PRN Reason Stop Dose Admin Acetaminophen 1,000 mg 05/04/24 06:00 05/04/24 05:58 Acetaminophen 500 Mg Tab PO 1,000 mg Q8H FATMATA Administration Carvedilol 3.125 mg 05/04/24 08:30 05/04/24 09:25 Carvedilol 3.125 Mg Tab PO 3.125 mg BID FATMATA Administration Cholecalciferol 5,000 units 05/04/24 08:30 05/04/24 09:26 Cholecalciferol (Vitamin D3) 1,000 Unit Tab PO 5,000 units DAILY FATMATA Administration Duloxetine HCl 40 mg 05/04/24 08:30 05/04/24 09:26 Duloxetine 20 Mg Cap PO 40 mg DAILY FATMATA Administration Esomeprazole Magnesium 40 mg 05/04/24 07:30 05/04/24 09:26 Esomeprazole 40 Mg Capcr PO 40 mg 0730 FATMATA Administration Potassium Chloride/Sodium Chloride 1,000 mls @ 75 mls/hr 05/04/24 07:15 05/04/24 09:29 Kcl 20meq/D5-0.45% Nacl IV 75 mls/hr INFUSION FATMATA Administration Insulin Aspart 0 - 9 units 05/04/24 08:00 05/04/24 13:07 Insulin Aspart 300 Units/3 Ml Pen SC 3 units 0800,1200,1700 FATMATA Administration Protocol Morphine Sulfate 2 mg 05/04/24 08:30 05/04/24 09:20 Morphine 4 Mg/Ml Syr IVP 2 mg Q2H PRN PRN Administration Pyridoxine HCl 200 mg 05/04/24 08:30 05/04/24 09:26 Pyridoxine 100 Mg Tab PO 200 mg DAILY FATMATA Administration Valsartan 40 mg 05/04/24 08:30 05/04/24 09:25 Valsartan 40 Mg Tab PO 40 mg DAILY FATMATA Administration Vitamin B Complex/Vitamin C 1 tab 05/04/24 08:30 05/04/24 09:32 Vitamins B Comp W/C Tab PO 1 tab DAILY FATMATA Administration IV IV Catheter Type [Right Peripheral IV Antecubital] IV Catheter Gauge [Right 18 Antecubital] Diet Orders Category Date Time Status Diet [Diabetes Consistent CHO] [DIET] Nutrition 05/04/24 Dinner Active Diagnostics 05/04/24 05/03/24 05/03/24 Range/Units 08:05 22:30 22:28 WBC 12.09 H (4.4-10.8) 10^3/uL RBC 4.33 (3.93-5.22) 10^6/uL Hgb 12.6 (11.2-15.7) g/dL Hct 38.3 (36.0-46.0) % MCV 89 (80-95) fL MCH 29.1 (27.0-33.0) pg MCHC 32.9 (32.0-36.0) % RDW 13.3 (11.7-14.6) % Plt Count 216 (130-400) 10^3/uL MPV 9.9 (8.0-11.0) fL Immature Gran % 0.6 % Neutrophils % 76.8 % Lymphocytes % 14.3 % Monocytes % 5.0 % Eosinophils % 2.8 % Basophils % 0.5 % Nucleated RBC % 0.0 (0.0-0.3) % Absolute Neutrophils 9.29 H (1.2-6.7) 10^3/uL Absolute Lymphocytes 1.73 (1.2-3.4) 10^3/uL Absolute Monocytes 0.60 (0.1-0.8) 10^3/uL Absolute Eosinophils 0.34 (0.0-0.7) 10^3/uL Absolute Basophils 0.06 (0.0-0.2) 10^3/uL PT 9.9 (9.1-11.1) sec INR 1.0 (0.9-1.1) APTT 26.4 (20.6-30.2) sec Sodium 139 (136-145) mmol/L Potassium 4.3 (3.5-5.1) mmol/L Chloride 102 (98-107) mmol/L Carbon Dioxide 35.1 H (21.0-32.0) mmol/L Anion Gap 1.9 L (3-11) mmol/L BUN 25 H (7-18) mg/dL Creatinine 1.1 H (0.55-1.02) mg/dL Est GFR (CKD-EPI 2020) 51.11 (mL/min/1.73m2) Glucose 200 H 94 (74-106) mg/dL Calcium 9.7 (8.5-10.1) mg/dL Magnesium 1.9 (1.8-2.4) mg/dL Troponin I 12 (<or=51) ng/L ABO/Rh O Positive Antibody Screen NEGATIVE [id number] Documentation Fingerstick Glucose Start: 05/03/24 22:21 Freq: Q6H WHILE AWAKE Status: Active Protocol: Activity Type Activity Date Activity User E-sign Co-sign Detail Recorded Client Recorded Date Recorded By Document 05/04/24 16:19 BKG DAEMON(3) [id number] 05/04/24 16:20 BKG DAEMON(4) Intake and Output - 24 Hour Total 05/03/24 21:30 thru 05/04/24 16:34 Intake Total 500 Output Total 1350 Balance -850 Weight 84.368 kg Intake: IV 500 Output: Urine 1300 Estimated Blood Loss 50 Other: Emesis Description None Falls Risk Assessment History of Falls Admit Due to Fall 05/04/24 07:42 Contributing Factors Impairments 05/04/24 07:42 Ambulatory Aids Uses ambulatory device 05/04/24 07:42 Tubes/Lines None 05/04/24 07:42 Gait Evaluation W/no contributing factors 05/04/24 07:42 Cognition No cognitive impairment 05/04/24 07:42 Fall Total Score 53 05/04/24 07:42 Level of Risk High Risk 05/04/24 07:42 Problems (Last Reviewed 05/04/24 @ 07:37 by Justice Carrillo MD) Osteoporosis (Chronic) Closed intertrochanteric fracture of right hip (Acute) DVT prophylaxis (Acute) CKD stage 3a, GFR 45-59 ml/min (Acute) Closed hip fracture (Acute) Iron deficiency anemia (Acute) 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 Information / Comments: Report received from: Kandis, [employer]
[2024-05-04] MEDS: Normal Saline Flush 10 ML SYR IVP ×2 (18:25→20:28)
[2024-05-04] MEDS: Atorvastatin 40 MG TAB PO (20:27)
[2024-05-04] MEDS: ceFAZolin 1 GM/50 ML BAG IVPB (20:34)
[2024-05-04] MEDS: Insulin Glargine 300 UNITS/3 ML PEN 30 UNITS SC (21:20)
[2024-05-05] MEDS: ceFAZolin 1 GM/50 ML BAG IVPB ×2 (04:28→13:32)
[2024-05-05] MEDS: Normal Saline Flush 10 ML SYR IVP ×4 (04:29→22:58)
[2024-05-05] MEDS: Acetaminophen 500 MG TAB 1000 MG PO ×3 (04:39→22:56)
[2024-05-05 07:55] VITALS: BP 152/57; PULSE 87; RESP 18; TEMP 36.8; O2SAT 95
[2024-05-05 08:19] LABS: Glucose 641 mg/dL (74-106)
[2024-05-05] MEDS: MORPHine 4 MG/ML SYR 2 MG IVP (08:39)
[2024-05-05] MEDS: Cholecalciferol (Vitamin D3) 1,000 UNIT TAB 5000 UNITS PO (08:41)
[2024-05-05] MEDS: Carvedilol 3.125 MG TAB PO ×2 (08:41→22:56)
[2024-05-05] MEDS: Valsartan 40 MG TAB PO (08:41)
[2024-05-05] MEDS: Vitamins B Comp w/C TAB 1 TAB PO (08:42)
[2024-05-05] MEDS: DULoxetine 20 MG CAP 40 MG PO (08:42)
[2024-05-05] MEDS: Esomeprazole 40 MG CAPCR PO (08:42)
[2024-05-05] MEDS: Insulin Aspart 300 UNITS/3 ML PEN SC ×2 (08:54→12:56)
--- NOTE | 2024-05-05 10:58 | W.PM.PROGNOT ---
Date of Service Date of service: 05/05/24 Time of Service: 08:10 Assessment and Plan Assessment and plan (1) Closed intertrochanteric fracture of right hip: Status: Acute Assessment and plan: Liane is a 78-year-old female who suffered a fracture about the right hip. She is now posted and #1 status post intramedullary fixation. She is doing well in regards to this. She does have significant hyperglycemia and is imperative that this is monitoring close the control visit will directly affect her ability to heal and correspond to potential infection of the surgical site. She may start mobilizing today, weightbearing as tolerated with assistive devices. I would expect our goal would be taking a few steps to the chair. Given the fracture here I do think is imperative we consider some type of more long-term bone treatment. She does have allergies to other bisphosphonates which may make the consideration of zoledronic acid slightly more challenging. However, denosumab may be another good option to help with her bone health, decreasing her mortality and decreasing her potential refracture rate. Subjective Subjective Interval history since last seen: Liane reports were doing well. She did have some pain last night in the anterior aspect of the right leg and thigh. However, she feels this is much better. She did receive some anti-inflammatories which helped out. She is able to move the leg in the bed. She is anxious to mobilize with physical therapy. She denies any numbness or tingling. She denies any chest pain or shortness of breath. Exam Narrative Exam Narrative: Sitting up in the bed. No acute distress. Alert and orient x 3. Dressing with the right hip is clean dry and intact. There is some swelling of the right thigh. No ecchymosis. She tolerates gentle internal and external rotation without significant pain. Sensation intact to light touch of the femoral and sciatic nerve distributions. She is able to actively plantarflex and dorsiflex the right ankle as well as extend and flex the great toe. Objective Last Vital Signs Temp 36.8 C 05/05/24 07:55 Pulse 87 05/05/24 07:55 Resp 18 05/05/24 07:55 BP 152/57 H 05/05/24 07:55 Pulse Ox 95 05/05/24 07:55 Laboratory Results - last 24 hr 05/05/24 07:40 Glucose 641 H* Time Spent with Patient Time Spent with Patient: <25 minutes Time was spent: preparing to see the patient(eg.review tests), obtaining and/or reviewing separately otained hiistory, indepentently interpreting results and counseling the patient
--- NOTE | 2024-05-05 11:21 | IN_ITS ---
PT Notes Visit Reasons: Right Hip Fracture Inpatient Physical Therapy Evaluation Date: 05/05/24 Referring Doctor: Justice Vences PT Orders: PT CONSULT: s/p IMN Fixation of R femur fx Precautions: WBAT per nursing Patient Profile/Admitting Diagnosis: s/p ortho surgery Subjective: Pt lives in a mobile home by herself. She states she has a that does not live with her but does help her out as needed. She does have a daughter that she could live with for awhile if needed as well. She has a few stairs to enter with a railing to her home as well as into her daughters home. She normally is able to do everything independently. She did suffer a hip fx on the other side last year following a fall. She received home health services at that time and hopes to do the same. She states she will not go to rehab. Objective: General Observation: comfortable in the bed, fully conversive Mental Status: A+Ox4 Pain: pre-medicated, pain currently under control Vital Signs: monitored by nursing ROM: WFL throughout bilat UEs and LEs Strength: Able to perform SLR on the LLE, unable to perform without UE assist on her RLE Bed Mobility/Transfers: supine to sitting at EOB w/min assist sitting to standing into RW w/min assist standing to sitting onto EOB w/CGA sitting at EOB to supine w/min assist Gait: ambulates 2 ft forward, 2 ft backward, and 2 ft laterally up the bed w/CGA and use of her RW Balance: Static Sitting: good Dynamic Sitting: good Static Standing: fair Dynamic Standing: poor Special Tests: Mobility Limitations Standardized Measure [facility] AM-PAC 6 clicks Basic Mobility Inpatient Short Form: Raw Score: 13 CMS Score: 64.91% Informed Consent/Education: Patient instructed in purpose of PT consult and plan of care. Assessment: Patient is a 78 year old female referred to physical therapy services s/p IMN fixation of a R femur fx. She was able to get to seated at EOB and stand up w/min assist today. She was able to take small steps about 2 ft each direction w/CGA before sitting back to bed. Pain seemed to be a major factor for her today but she was pre-medicated before her PT evaluation. She will likely be able to go either home or to her daughter's house in a few days after working consistently with PT. She will have to manage stairs no matter what living situation she returns to. Home health PT will likely be recommended as well. Patient is assessed as a [x] Low 27490 complexity based on the following: History: Low Examination: Low Presentation: Low Decision Making: Low Goals: Goals X3 days 1. Supine-Sit w/SBA 2. Sit-Supine w/SBA 3. Sit-Stand w/SBA 4. Stand-Sit w/SBA 5. Bed-Chair w/SBA 6. Chair-Bed w/SBA 7. Gait x100 ft w/SBA 8. Stairs x3 w/SBA 9. Independent with home exercise program Plan of Care/Treatment Plan: 1-2x/day, 7 days/week x 1 week. Plan of care has been reviewed with the SENIOR BUSINESS ANALYST providing the service under Physical Therapy direction. Initiate Physical Therapy intervention for strengthening, bed mobility, transfers, gait, stairs, balance training, use of assistive device. DISCHARGE RECOMMENDATIONS: [x] Home with home health PT services in 2-3 days TREATMENT CODE/TIME: []
--- NOTE | 2024-05-05 12:12 | PGE_ITS ---
Date of Service Date of service: 05/05/24 Time of Service: 12:12 Assessment and Plan Assessment and plan (1) Closed hip fracture: Status: Acute Assessment and plan: Minimally displaced closed hip fracture on right after a fall. No orthopedics on tonight but Dr. Carrillo tomorrow, will admit and prep for possible surgery 05/04 Patient wants to avoid opiates, acetaminophen for now, but will give option for severe pain, she has tolerated morphine. 05/05/24 POD #1. Notes reviewed from Ortho Liane is a 78-year-old female who suffered a fracture about the right hip. She is now posted and #1 status post intramedullary fixation. She is doing well in regards to this. She does have significant hyperglycemia and is imperative that this is monitoring close the control visit will directly affect her ability to heal and correspond to potential infection of the surgical site. She may start mobilizing today, weightbearing as tolerated with assistive devices. I would ex pect our goal would be taking a few steps to the chair. Given the fracture here I do think is imperative we consider some type of more long-term bone treatment. She does have allergies to other bisphosphonates which may make the consideration of zoledronic acid slightly more challenging. However, denosumab may be another good option to help with her bone health, decreasing her mortality and decreasing her potential refracture rate. (2) CAD (coronary artery disease): Assessment and plan: History of CABG, also had ventricular tachycardia and AICD placed. No symptoms to suggest active coronary disease, EKG and troponins reassuring. Recommend proceeding with surgery without further cardiac testing. Continue statin, hold ASA but resume as soon as cleared by cardiology, post op okay. 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 She also has a history of hypoglycemia. Will continue her home basal bolus regimen and monitor. 05/05/24 PT asked for the ability to control her diabetic regimen as she is a DMI and has good success controlling her BG for many years and we need better control (4) Essential hypertension: Status: Acute Assessment and plan: BP high today, with acute injury. Treat pain. Continue outpatient therapy, monitor. Her gate manager recently added carvedilol but stopped losartan, and her BP has still been high. Will try on low dose of both. 05/05/24 Pt's BP is currently 152/57. Pt is on coreg/valsartan. Will c/w current regimen and adjust as needed (5) CKD stage 3a, GFR 45-59 ml/min: Status: Acute Assessment and plan: Current GFR on high end of recent baseline. Follow. (6) Depression: Assessment and plan: Continue outpatient SNRI (7) Iron deficiency anemia: Status: Acute Assessment and plan: h/h have normalized. (8) DVT prophylaxis: Status: Acute Assessment and plan: Defer to surgeon with pending surgery. TEDs/SCDs for now. Subjective Subjective Interval history since last seen: Pt seen and examined in her room this am. POC d/w pt as well as family who were in the room. POC also d/w bedside nurse during MDR Exam Narrative Exam Narrative: heent-ncat mmm eomi perrla neck-no lad no jvd no thyroidmegaly cv-rrr no mrg lungs-ctab no amu abd-sntnd ext-right wound bandaged but no erythema Objective Last Vital Signs Temp 36.8 C 05/05/24 07:55 Pulse 87 05/05/24 07:55 Resp 18 05/05/24 07:55 BP 152/57 H 05/05/24 07:55 Pulse Ox 95 05/05/24 07:55 Laboratory Results - last 24 hr 05/05/24 07:40 Glucose 641 H* Time Spent with Patient Time Spent with Patient: 25-34 minutes Time was spent: preparing to see the patient(eg.review tests), ordering medications,tests, procedures, referring, communicating with other health respiratory care program director, indepentently interpreting results, counseling the patient and care coordination
[2024-05-05 12:43] LABS: Glucose 608 mg/dL (74-106)
[2024-05-05 15:11] VITALS: BP 112/40; PULSE 86; RESP 18; TEMP 37.1; O2SAT 93
[2024-05-05 19:51] VITALS: BP 116/50; PULSE 86; RESP 18; TEMP 36.5; O2SAT 92
[2024-05-05] MEDS: Atorvastatin 40 MG TAB PO (22:55)
[2024-05-05] MEDS: Insulin Glargine 300 UNITS/3 ML PEN 30 UNITS SC (22:58)
[2024-05-06] MEDS: Acetaminophen 500 MG TAB 1000 MG PO ×3 (06:34→22:12)
[2024-05-06 07:12] LABS: Abs Immature Grans 0.08 10^3/uL (0.0-0.06); Absolute Basophil Count 0.05 10^3/uL (0.0-0.2); Absolute Eosinophil Count 0.63 10^3/uL (0.0-0.7); Absolute Lymphocyte Count 2.73 10^3/uL (1.2-3.4); Absolute Monocyte Count 0.95 10^3/uL (0.1-0.8); Absolute Neutrophil Count 8.89 10^3/uL (1.2-6.7); Basophils % 0.4 %; Eosinophils % 4.7 %; HGB 9.7 g/dL (11.2-15.7); Immature Grans % 0.6 %; Lymphocytes % 20.5 %; MCH 29.3 pg (27.0-33.0); MCHC 33.4 % (32.0-36.0); MCV 88 fL (80-95); MPV 10.7 fL (8.0-11.0); Monocytes % 7.1 %; Neutrophils % 66.7 %; Platelet Count 173 10^3/uL (130-400); RBC 3.31 10^6/uL (3.93-5.22); RDW 13.8 % (11.7-14.6); RDW-SD 44.2 fL; WBC 13.33 10^3/uL (4.4-10.8)
[2024-05-06 07:26] LABS: ALT 164 U/L (14-59); AST 118 U/L (15-37); Albumin 2.7 g/dL (3.4-5.0); Alkaline Phosphatase 196 U/L (46-116); Anion Gap 3.4 mmol/L (3-11); BUN 54 mg/dL (7-18); Bilirubin, Total 0.46 mg/dL (0.2-1.0); CO2 29.6 mmol/L (21.0-32.0); Calcium 8.7 mg/dL (8.5-10.1); Chloride 96 mmol/L (98-107); Estimated GFR 24.94 (mL/min/1.73m2); Glucose 227 mg/dL (74-106); Potassium 4.6 mmol/L (3.5-5.1); Sodium 129 mmol/L (136-145); Total Protein 5.9 g/dL (6.4-8.2)
[2024-05-06 07:29] LABS: Hemoglobin A1C 8.8 % (<5.7)
[2024-05-06 07:49] VITALS: BP 133/90; PULSE 83; RESP 18; TEMP 36.9; O2SAT 95
[2024-05-06] MEDS: Insulin Aspart 300 UNITS/3 ML PEN SC ×3 (08:32→17:01)
[2024-05-06] MEDS: MORPHine 4 MG/ML SYR 2 MG IVP (08:34)
[2024-05-06] MEDS: Normal Saline Flush 10 ML SYR IVP ×2 (08:34→20:46)
[2024-05-06] MEDS: DULoxetine 20 MG CAP 40 MG PO (08:35)
[2024-05-06] MEDS: Carvedilol 3.125 MG TAB PO ×2 (08:35→20:45)
[2024-05-06] MEDS: Cholecalciferol (Vitamin D3) 1,000 UNIT TAB 5000 UNITS PO (08:35)
[2024-05-06] MEDS: Esomeprazole 40 MG CAPCR PO (08:35)
[2024-05-06] MEDS: Valsartan 40 MG TAB PO (08:35)
[2024-05-06] MEDS: Vitamins B Comp w/C TAB 1 TAB PO (08:35)
--- NOTE | 2024-05-06 09:50 | W.PM.PROGNOT ---
Date of Service Date of service: 05/06/24 Time of Service: 09:50 Assessment and Plan Assessment and plan (1) Closed intertrochanteric fracture of right hip: Status: Acute Assessment and plan: Liane is a 78-year-old female who suffered a fracture about the right hip. She is now postop day #2 status post intramedullary fixation. She is doing well and made good gains today. Once again, I recommend the hospitalist team consider some type of more long-term bone treatment. She does have allergies to other bisphosphonates which may make the consideration of zoledronic acid slightly more challenging. However, denosumab may be another good option to help with her bone health, decreasing her mortality and decreasing her potential refracture rate. She made good progress today with her physical therapy and should be able to to discharge to home with home health services likely in the next 2 to 3 days. She also found out that her family was going to take her manage she is going to moving in with her daughter. Anticoagulation may continue with Lovenox in house but recommend discharge with aspirin 8 continue weightbearing as tolerated. No positioning restrictions. 1 mg twice daily. Subjective Subjective Interval history since last seen: Liane reports be doing well. She does feel better today. When I saw her she was able to mobilize with physical therapy to the chair and actually walked to the hallway. She has had some significant hyperglycemia as well as some worsening kidney function but overall is asymptomatic. She denies chest pain or shortness of breath. Exam Narrative Exam Narrative: Sitting in the chair. No acute distress. Evaluation of the right hip shows clean dry and intact dressings. Some swelling about the right thigh. No significant pain with passive internal and external rotation of the right hip. Objective Last Vital Signs Temp 36.9 C 05/06/24 07:49 Pulse 83 05/06/24 07:49 Resp 18 05/06/24 07:49 BP 133/90 05/06/24 07:49 Pulse Ox 95 05/06/24 07:49 Laboratory Results - last 24 hr 05/05/24 05/06/24 12:19 06:20 WBC 13.33 H RBC 3.31 L Hgb 9.7 L D Hct 29.0 L MCV 88 MCH 29.3 MCHC 33.4 RDW 13.8 Plt Count 173 MPV 10.7 Immature Gran % 0.6 Neutrophils % 66.7 Lymphocytes % 20.5 Monocytes % 7.1 Eosinophils % 4.7 Basophils % 0.4 Nucleated RBC % 0.0 Absolute Neutrophils 8.89 H Absolute Lymphocytes 2.73 Absolute Monocytes 0.95 H Absolute Eosinophils 0.63 Absolute Basophils 0.05 Sodium 129 L D Potassium 4.6 Chloride 96 L Carbon Dioxide 29.6 Anion Gap 3.4 BUN 54 H Creatinine 2.0 H Est GFR (CKD-EPI 2020) 24.94 Glucose 608 H* 227 H Hemoglobin A1c 8.8 H Calcium 8.7 Total Bilirubin 0.46 AST 118 H ALT 164 H Alkaline Phosphatase 196 H Total Protein 5.9 L Albumin 2.7 L Time Spent with Patient Time Spent with Patient: <25 minutes Time was spent: preparing to see the patient(eg.review tests), obtaining and/or reviewing separately otained hiistory, indepentently interpreting results and counseling the patient
--- NOTE | 2024-05-06 11:49 | PT.INTREAT ---
PT Notes Visit Reasons: Right Hip Fracture Inpatient Physical Therapy Treatment Note [facility] Date: 05/06/24 PRECAUTIONS: WBAT SUBJECTIVE: Pt states she had a really good night. She was able to sleep and feels rested today. She had a conversation with her family and is going to move into her daughter's house in [facility] when going home. OBJECTIVE: ? PAIN: Minimal pain complaints today VITALS: Monitored by nursing Therapeutic Activities (09309b7): Direct one-on-one instruction in dynamic activities to improve functional performance. ? BED MOBILITY/TRANSFERS? Rolling L/R: min assist Supine-sit: min assist? Sit-supine: min assist? Sit-stand: min assist? Stand-sit: min assist ? Bed-Chair: min assist? Chair-bed: min assist Ambulation: 20 ft with step to gait cycle, RW, and CGA -Provided skilled cues and instruction on performance and technique throughout. ASSESSMENT:? Pt did very well today as she was able to progress with her ambulation. She still requires min assist to get into and out of the bed. She was not limited by pain as much today. PLAN: Continue ambulation progression TREATMENT CODE/TIME: [place] Act 38892 x 1 (15 min) DISCHARGE RECOMMENDATION: D/c to her daughters house with home health PT
[2024-05-06 15:06] VITALS: BP 126/57; PULSE 75; RESP 18; TEMP 36.7; O2SAT 95
--- NOTE | 2024-05-06 17:44 | PGE_ITS ---
Date of Service Date of service: 05/06/24 Time of Service: 17:45 Assessment and Plan Assessment and plan (1) Closed hip fracture: Status: Acute Assessment and plan: Minimally displaced closed hip fracture on right after a fall. No orthopedics on tonight but Dr. Carrillo tomorrow, will admit and prep for possible surgery 05/04 Patient wants to avoid opiates, acetaminophen for now, but will give option for severe pain, she has tolerated morphine. 05/05/24 POD #1. Notes reviewed from Ortho Liane is a 78-year-old female who suffered a fracture about the right hip. She is now posted and #1 status post intramedullary fixation. She is doing well in regards to this. She does have significant hyperglycemia and is imperative that this is monitoring close the control visit will directly affect her ability to heal and correspond to potential infection of the surgical site. She may start mobilizing today, weightbearing as tolerated with assistive devices. I would ex pect our goal would be taking a few steps to the chair. Given the fracture here I do think is imperative we consider some type of more long-term bone treatment. She does have allergies to other bisphosphonates which may make the consideration of zoledronic acid slightly more challenging. However, denosumab may be another good option to help with her bone health, decreasing her mortality and decreasing her potential refracture rate. 05/06/24 Notes reviewed from Ortho (2) CAD (coronary artery disease): Assessment and plan: History of CABG, also had ventricular tachycardia and AICD placed. No symptoms to suggest active coronary disease, EKG and troponins reassuring. Recommend proceeding with surgery without further cardiac testing. Continue statin, hold ASA but resume as soon as cleared by cardiology, post op okay. 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 She also has a history of hypoglycemia. Will continue her home basal bolus regimen and monitor. 05/05/24 PT asked for the ability to control her diabetic regimen as she is a DMI and has good success controlling her BG for many years and we need better control 05/06/24 Much better blood sugar control since she took over her regimen with values 170/278/301/88 (4) Essential hypertension: Status: Acute Assessment and plan: BP high today, with acute injury. Treat pain. Continue outpatient therapy, monitor. Her marketing communications assistant recently added carvedilol but stopped losartan, and her BP has still been high. Will try on low dose of both. 05/05/24 Pt's BP is currently 152/57. Pt is on coreg/valsartan. Will c/w current regimen and adjust as needed (5) CKD stage 3a, GFR 45-59 ml/min: Status: Acute Assessment and plan: Current GFR on high end of recent baseline. Follow. (6) Depression: Assessment and plan: Continue outpatient SNRI (7) Iron deficiency anemia: Status: Acute Assessment and plan: h/h have normalized. (8) DVT prophylaxis: Status: Acute Assessment and plan: Defer to surgeon with pending surgery. TEDs/SCDs for now. (9) Advance care planning: Status: Acute Assessment and plan: Will follow intermittently Exam Narrative Exam Narrative: deferred Objective Last Vital Signs Temp 36.7 C 05/06/24 15:06 Pulse 75 05/06/24 15:06 Resp 18 05/06/24 15:06 BP 126/57 L 05/06/24 15:06 Pulse Ox 95 05/06/24 15:06 Laboratory Results - last 24 hr 05/06/24 06:20 WBC 13.33 H RBC 3.31 L Hgb 9.7 L D Hct 29.0 L MCV 88 MCH 29.3 MCHC 33.4 RDW 13.8 Plt Count 173 MPV 10.7 Immature Gran % 0.6 Neutrophils % 66.7 Lymphocytes % 20.5 Monocytes % 7.1 Eosinophils % 4.7 Basophils % 0.4 Nucleated RBC % 0.0 Absolute Neutrophils 8.89 H Absolute Lymphocytes 2.73 Absolute Monocytes 0.95 H Absolute Eosinophils 0.63 Absolute Basophils 0.05 Sodium 129 L D Potassium 4.6 Chloride 96 L Carbon Dioxide 29.6 Anion Gap 3.4 BUN 54 H Creatinine 2.0 H Est GFR (CKD-EPI 2020) 24.94 Glucose 227 H Hemoglobin A1c 8.8 H Calcium 8.7 Total Bilirubin 0.46 AST 118 H ALT 164 H Alkaline Phosphatase 196 H Total Protein 5.9 L Albumin 2.7 L Time Spent with Patient Time Spent with Patient: 25-34 minutes Time was spent: preparing to see the patient(eg.review tests), ordering medications,tests, procedures, referring, communicating with other health care giver, indepentently interpreting results, counseling the patient and care coordination
[2024-05-06 20:43] VITALS: BP 140/64; PULSE 89; RESP 14; TEMP 36.2; O2SAT 96
[2024-05-06] MEDS: Atorvastatin 40 MG TAB PO (20:45)
[2024-05-06] MEDS: Insulin Glargine 300 UNITS/3 ML PEN 30 UNITS SC (22:12)
[2024-05-07] MEDS: Acetaminophen 500 MG TAB 1000 MG PO ×3 (06:49→22:14)
[2024-05-07] MEDS: Esomeprazole 40 MG CAPCR PO (06:49)
[2024-05-07 07:51] VITALS: BP 177/75; PULSE 85; RESP 18; TEMP 37; O2SAT 96
[2024-05-07] MEDS: Cholecalciferol (Vitamin D3) 1,000 UNIT TAB 5000 UNITS PO (09:03)
[2024-05-07] MEDS: Carvedilol 3.125 MG TAB PO ×2 (09:04→20:32)
[2024-05-07] MEDS: Valsartan 40 MG TAB PO (09:04)
[2024-05-07] MEDS: DULoxetine 20 MG CAP 40 MG PO (09:04)
[2024-05-07] MEDS: Vitamins B Comp w/C TAB 1 TAB PO (09:04)
[2024-05-07] MEDS: Insulin Aspart 300 UNITS/3 ML PEN SC ×3 (09:04→17:17)
[2024-05-07] MEDS: Normal Saline Flush 10 ML SYR IVP ×2 (09:04→20:32)
--- NOTE | 2024-05-07 09:43 | PT.INTREAT ---
PT Notes Visit Reasons: Right Hip Fracture Inpatient Physical Therapy Treatment Note [facility] Date: 05/07/24 PRECAUTIONS: Fall. Standard. WBAT on R LE with AD. SUBJECTIVE: Was in pain at 7-8 when PT came in to attempt session. Patient was agreeable to being seen later after she gets her PRN morphine which prived to be very helpful as she was able to do more than she did yesterday. deniede headaceh, chest pain, and lightheadedness throughout session. OBJECTIVE: ? PAIN: 7-11/11 initially pre-morphine, 45 minutes after morphine intake VITALS: Closely monitored by nursing staff ? BED MOBILITY/TRANSFERS: ?Minimal cueing provided for use of B hands as needed for support, movement sequence, AD management, and posture to reduce fall risk and minimize pain report?Sit-stand: contact guard assist?using FWW? Stand-sit: contact guard assist?using FWW? Bed-Chair: contact guard assist?using FWW? Chair-bed: contact guard assist?using FWW? Ambulation: 50 feet + 50 feet using FWW with step-to gait pattern requiring conatct guard assist and wheelchair follow with minimal verbal cueing provided for AD management, weight distribution, and directional changes. Complaied of discomfort to about 3-4/10 towards the end of the short walk. Stairs: Guided patient with safe and correct negotiation of 3 x 4-inch steps and 2-6-inch steps while holding onto B rails with step-to gait pattern and moderate verbal cueing for limb sequence, increased bending at R hip during each ascent, adn weight ditribution to adequately off load R hip, minimal assist needed. ASSESSMENT:? S/P IMN of R IT femur fracture on POD 3. Pain and anxiety are main limiting factor for mobility performance. Will have support of daughter at daughter's house upon discharge. Will beenfit from HH PT for continued mobility progression to reduce fall risk and increase self-reliance with wlaking and moving about. PLAN: Progress strength, mobility level, and balance to reduce fall risk and optimize independence for indoor ambulation as tolerated. DISCHARGE RECOMMENDATION: HH PT at daughter's house whenever medically cleared TREATMENT CODE/TIME: 91825 x 34 minutes for 2 units (43/109:43-10:17).
--- NOTE | 2024-05-07 13:02 | W.PM.PROGNOT ---
Date of Service Date of service: 05/07/24 Time of Service: 12:25 Assessment and Plan Assessment and plan (1) Closed intertrochanteric fracture of right hip: Status: Acute Assessment and plan: Liane is a 78-year-old female who is presenting #3 from a intramedullary fixation of a right hip fracture. She is doing well. She is making great progress with her ambulation. She is planned moved back to her daughter's house. At this point see any sign of complication. She did have acute kidney injury which should be followed up on and I discussed this with hospitalist. At this point she should follow-up in 4 weeks. I recommend Aspir 81 milligrams twice daily for DVT prophylaxis. Subjective Subjective Interval history since last seen: Liane reports are doing well. She is able to ambulate with physical therapy out to the hallway and actually go up and down the stairs. She is feeling much better about her right hip although she does feel more sore on the side than she did on the left side. No other acute changes. Exam Narrative Exam Narrative: Sitting up in the chair. No acute distress. Alert and oriented 3. Evaluation of the right hip shows some swelling around the right thigh. Dressings are clean dry and intact. She is able to tolerate internal and external rotation of the right hip without significant increase in pain. Sensation to light touch over the deep and superficial peroneal nerve and tibial nerve. Foot is warm well-perfused. Objective Last Vital Signs Temp 37.0 C 05/07/24 07:51 Pulse 85 05/07/24 07:51 Resp 18 05/07/24 07:51 BP 177/75 H 05/07/24 07:51 Pulse Ox 96 05/07/24 07:51 Time Spent with Patient Time Spent with Patient: <25 minutes Time was spent: preparing to see the patient(eg.review tests), obtaining and/or reviewing separately otained hiistory, counseling the patient and care coordination
[2024-05-07 13:50] LABS: Anion Gap 6.6 mmol/L (3-11); BUN 56 mg/dL (7-18); CO2 27.4 mmol/L (21.0-32.0); CREATININE 1.5 mg/dL (0.55-1.02); Calcium 9.1 mg/dL (8.5-10.1); Chloride 101 mmol/L (98-107); Estimated GFR 35.23 (mL/min/1.73m2); Glucose 202 mg/dL (74-106); Sodium 135 mmol/L (136-145)
--- NOTE | 2024-05-07 13:56 | W.PM.PROGNOT ---
Date of Service Date of service: 05/07/24 Time of Service: 13:56 Assessment and Plan Assessment and plan (1) Closed hip fracture: Status: Acute Assessment and plan: -Minimally displaced closed hip fracture on right after a fall. -now POD #[address] Carrillo -continue PT while hospitalized, plan to go home with home health PT (2) CAD (coronary artery disease): Assessment and plan: -History of CABG, also had ventricular tachycardia and AICD placed. -No symptoms to suggest active coronary disease, EKG and troponins reassuring. 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 She also has a history of hypoglycemia. -PT asked for the ability to control her diabetic regimen as she is a DMI and has good success controlling her BG for many years and we need better control -Much better blood sugar control since she took over her regimen with values 170/278/301/88 (4) Essential hypertension: Status: Acute Assessment and plan: -BP high on admission with acute injury. Treat pain. Continue outpatient therapy, monitor. -BP improved with coreg/valsartan. Will c/w current regimen and adjust as needed (5) CKD stage 3a, GFR 45-59 ml/min: Status: Acute Assessment and plan: Current GFR on high end of recent baseline. Follow. (6) Depression: Assessment and plan: Continue outpatient SNRI (7) Iron deficiency anemia: Status: Acute Assessment and plan: h/h have normalized. (8) DVT prophylaxis: Status: Acute Assessment and plan: Defer to surgeon with pending surgery. TEDs/SCDs for now. (9) Advance care planning: Status: Acute Assessment and plan: Will follow intermittently Subjective Subjective Interval history since last seen: Patient states that she is doing well today and is looking forward to moving in with her daughter once everything is coordinated at home. Otherwise she has no other complaints or concerns at this time. Exam Narrative Exam Narrative: Well-appearing female sitting up in the chair no acute distress, ANO x 4, heart regular rhythm, lungs clear to auscultation bilaterally, abdomen soft, nontender, nondistended, decreased range of motion of right lower extremity at the hip secondary to pain, no surrounding erythema or drainage from surgical site Objective Last Vital Signs Temp 98.6 F 05/07/24 07:51 Pulse 85 05/07/24 07:51 Resp 18 05/07/24 07:51 BP 177/75 H 05/07/24 07:51 Pulse Ox 96 05/07/24 07:51 Laboratory Results - last 24 hr 05/07/24 13:32 Sodium 135 L Potassium 5.0 Chloride 101 Carbon Dioxide 27.4 Anion Gap 6.6 BUN 56 H Creatinine 1.5 H Est GFR (CKD-EPI 2020) 35.23 Glucose 202 H Calcium 9.1 Time Spent with Patient Time Spent with Patient: >50 minutes Time was spent: preparing to see the patient(eg.review tests), obtaining and/or reviewing separately otained hiistory, ordering medications,tests, procedures, referring, communicating with other health healthcare recruiter, indepentently interpreting results, counseling the patient and care coordination
[2024-05-07] MEDS: MORPHine 4 MG/ML SYR 2 MG IVP (14:16)
--- NOTE | 2024-05-07 15:50 | CMPROGNOTE_ITS ---
Date of service: 05/07/24 Time of Service: 15:50 Care Management Progress Note Progress Note Text Progress Note Text: Liane was sitting up in her chair when CM met with her. Her was in the room visiting. Liane stated that per Dr. Carrillo, she will likely be ready for discharge, as long as PT clears her to return home with HH PT. Liane stated that recovery from this surgery has been more difficult then her previous experience. She reported that she has decided to move in with her daughter, who lives in [place], [place]. She stated that she had been thinking about making this change for a while, and this injury expedited the move. Liane will have new orders for HH PT, which will be sent to [facility] (referral fax #[phone]). Liane stated that her daughter's address is on [address] [place], [place]; she is going to get the full address from her daughter when she speaks with her later today. Liane spoke about her pet baby hedgehog, Jeffery, whom she is looking forward to seeing again when she discharges. CM will continue to follow. Discharge Potential Discharge Needs: PCP F/U Appt Anticipated Barriers to Discharge: None Identified Patient/Family Education Needs: Review discharge instructions, discuss Ask Me Three Transportation: Private vehicle Plan: Liane will be staying with her daughter, Misty, after discharge in [place], [place]. She will have new orders for HH PT, which will be sent to [facility]. She will follow up with her PCP and discharge plan of care, and her daughter will transport her home via private vehicle. CM will continue to follow. Social Determinants of Health Screening Will the Patient Participate in the Screening?: Unable to obtain
[2024-05-07 17:07] VITALS: BP 116/60; PULSE 85; RESP 16; TEMP 36.6; O2SAT 98
[2024-05-07] MEDS: Atorvastatin 40 MG TAB PO (20:32)
[2024-05-07] MEDS: Insulin Glargine 300 UNITS/3 ML PEN 30 UNITS SC (22:14)
[2024-05-07 23:24] VITALS: BP 138/57; PULSE 85; RESP 15; TEMP 36.4; O2SAT 95
[2024-05-08] MEDS: Esomeprazole 40 MG CAPCR PO (06:37)
[2024-05-08] MEDS: Acetaminophen 500 MG TAB 1000 MG PO (06:38)
[2024-05-08 07:41] VITALS: BP 177/55; PULSE 79; RESP 14; TEMP 37.5; O2SAT 97
[2024-05-08] MEDS: Carvedilol 3.125 MG TAB PO (08:09)
[2024-05-08] MEDS: Cholecalciferol (Vitamin D3) 1,000 UNIT TAB 5000 UNITS PO (08:09)
[2024-05-08] MEDS: Vitamins B Comp w/C TAB 1 TAB PO (08:09)
[2024-05-08] MEDS: Insulin Aspart 300 UNITS/3 ML PEN SC ×2 (08:09→12:06)
[2024-05-08] MEDS: Valsartan 40 MG TAB PO (08:10)
[2024-05-08] MEDS: Normal Saline Flush 10 ML SYR IVP (08:10)
[2024-05-08] MEDS: DULoxetine 20 MG CAP 40 MG PO (08:10)
[2024-05-08] MEDS: MORPHine 4 MG/ML SYR 2 MG IVP (08:42)
--- NOTE | 2024-05-08 09:07 | PT.INTREAT ---
PT Notes Visit Reasons: Right Hip Fracture Inpatient Physical Therapy Treatment Note [facility] Date: 05/08/24 PRECAUTIONS: Fall. Standard. WBAT on R LE with AD. SUBJECTIVE: Pain level much improved now at . Nurse Charles gave patient morphine for pain about half hour prior to PT visit. OBJECTIVE: ? PAIN: As above VITALS: Closely monitored by nursing staff ? BED MOBILITY/TRANSFERS: ?Minimal cueing provided for use of B hands as needed for support, movement sequence, AD management, and posture to reduce fall risk and minimize pain report?Sit-stand: stand by assist?using FWW? Stand-sit: stand by assist?using FWW? Bed-Chair: stand by assist?using FWW? Chair-bed: stand by assist?using FWW? Ambulation: 150 feet using FWW with step-to gait pattern requiring stand by assist and wheelchair follow with minimal verbal cueing provided for AD management, weight distribution, and directional changes. Stairs: Guided patient with safe and correct negotiation of 3 x 4-inch steps and 2-6-inch steps while holding onto B rails with step-to gait pattern and moderate verbal cueing for limb sequence, increased bending at R hip during each ascent, adn weight ditribution to adequately off load R hip, minimal assist needed. THERA EX: Trained patient with correct performance of exercises below to maximize motor control, joint flexibility, soft tissue extensibility of the R hip musculature to facilitate return to independent functional mobility performance. Access Code: [email or web address] URL: [email or web address] Date: 05/08/2024 Prepared by: Dahiana Boucher Exercises - Gluteal Sets - 1 x daily - 7 x weekly - 1 sets - 10 reps - 5 hold - Supine Heel Slide - 1 x daily - 7 x weekly - 1 sets - 10 reps - 5 hold - Supine Ankle Pumps - 1 x daily - 7 x weekly - 1 sets - 10 reps - 5 hold - Seated March - 1 x daily - 7 x weekly - 1 sets - 10 reps - 5 hold - Seated Long Arc Quad - 1 x daily - 7 x weekly - 1 sets - 10 reps - 5 hold ASSESSMENT:? S/P IMN of R IT femur fracture on POD 4 with pain level decreasing and mobility performance improving. Will benefit from HH PT for continued mobility progression to reduce fall risk and increase self-reliance with wlaking and moving about. PLAN: Progress strength, mobility level, and balance to reduce fall risk and optimize independence for indoor ambulation as tolerated. DISCHARGE RECOMMENDATION: HH PT at daughter's house whenever medically cleared TREATMENT CODE/TIME: 28108 x 15 mnutes for 1 unit, 00894 x 16 minutes for 1 unit (9:07-09:42).
--- NOTE | 2024-05-08 10:07 | W.PM.DS.N ---
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: Status: Acute (4) Essential hypertension: Status: Acute (5) CKD stage 3a, GFR 45-59 ml/min: Status: Acute (6) Depression: (7) Iron deficiency anemia: Status: Acute (8) DVT prophylaxis: Status: Acute (9) Advance care planning: Status: Acute Discharge Plan Disposition Patient Disposition: Home W/Home Health Services Condition: Good Discharge Details Reason For Visit: Right Hip Fracture Admit Date/Time: 05/04/24 00:56 Admit Provider: Shukri Rodriguez Attending Provider: Shukri Rodriguez Primary Care Provider: Vinayak Downs [facility] Course Hospital Course: Patient presented after experiencing a fall onto her right hip resulting in right hip fracture. This was repaired by orthopedic surgeon Dr. Carrillo without complication. Patient worked with physical therapy was determined to benefit from home health PT services. Given the patient had improvement of her pain was able to ambulate with minimal assistance it was determined that she was stable for discharge home with home health PT services. Home Meds and New Rx's Prescriptions: New morphine 15 mg tablet 15 mg PO Q8H PRNQty: 10 0RF Continued Novolin R Regular U100 Insulin 100 unit/mL solution See Rx Instructions subcut USEASDIRECTD Rx Instructions: use with insulin pump meclizine 25 mg tablet 25 mg PO .Q6hrs PRN duloxetine 40 mg capsule,delayed release(DR/EC) 40 mg PO DAILY Rx Instructions: pt takes an additional 20mg (60mg dose total) prn. vitamin B complex [B Complex-Vitamin B12] Tablet 1 tab PO DAILY aspirin 81 mg tablet,delayed release (DR/EC) 81 mg PO DAILY glucagon 1 mg/0.2 mL auto-injector 1 mg subcut ONCE Rx Instructions: as a single dose; may repeat once after 15 minutes if no response cranberry extract 250 mg capsule 250 mg PO DAILY Rx Instructions: administer with a meal esomeprazole magnesium 40 mg capsule,delayed release(DR/EC) 40 mg PO DAILY pyridoxine (vitamin B6) 100 mg tablet 200 mg PO DAILY valsartan 40 mg tablet 40 mg PO .COMPLEX PRN Rx Instructions: 40 mg orally three times weekly only due to low bp PRN; cholecalciferol (vitamin D3) [Vitamin D3] 50 mcg (2,000 unit) tablet 5,000 unit PO DAILY sucralfate [Carafate] 1 gram tablet 1 g PO QACHS PRN insulin aspart U-100 [Novolog PenFill U-100 Insulin] 100 UNIT/1 ML cartridge 100 unit SQ DAILY Patient Comments: pt has insulin pump dose is between 40 and 50 units daily insulin glargine [Lantus U-100 Insulin] 100 UNITS/ML solution 28 units SQ DAILY PRN (Reason: insulin pump failure) Patient Comments: 28 units at 1800 acetaminophen 500 mg Tablet 1,000 mg PO Q8H Qty: 180 0RF atorvastatin 40 mg tablet 40 mg PO DAILY ferrous gluconate 324 mg (38 mg iron) tablet 324 mg PO DAILY Qty: 30 0RF Changed carvedilol 3.125 mg tablet 3.125 mg PO BID Qty: 0 0RF Patient Comments: TAKE ONE TABLET BY MOUTH EVERY DAY Discontinued duloxetine 20 mg capsule,delayed release(DR/EC) 20 mg PO DAILY Discharge Instructions Additional Instructions: Hip Discharge Instructions Activity: There are no formal restrictions about range of motion. I encouraged gentle range of motion on a daily basis and progressive ambulation with the use of an assistive device. Physical therapy should focus on gait training as well as strengthening. Dressing: Keep the surgical dressing in place for at least one week. After the first week it may be removed and replace with light gauze and tape or nothing. It may get wet after 3 days but avoid soaking the dressing. If it gets wet, just lightly pat dry. Follow-up: 4 weeks If you have any acute concerns or questions, please do not hesitate to contact the office at [phone]. You may contact Dr. Carrillo with any questions after hours through the hospital at [phone] or on his cell phone at [phone]. Stand Alone Forms: Nursing Discharge Form Referrals: Vinayak Downs MD [Primary Care Provider] - 05/15/24 9:50 am Justice Carrillo MD [ [facility] STAFF PHYSICIAN] - 05/30/24 2:30 pm () Activity:: Activity as Tolerated Equipment/Supplies:: No Equipment Needed Diet:: As Tolerated Discharge Orders Discharge Orders: Discharge Order (Routine); Ordered 05/08/24 Ordered By: Daniel Mauricio DS: Summary Time Spent with Patient providing and/or coordinating discharge services: Greater than 30 minutes Status at Discharge Functional status at discharge: independent ambulation Overall status at discharge: patient is back to baseline Mental Status: mental status grossly normal Speech and Movement: speech and movement normal Mood: congruent mood Affect: normal affect Quality:SDOH Health Related Social Needs: No Data to Display Exam Narrative Exam Narrative: Well-appearing female sitting up in the chair no acute distress, ANO x 4, heart regular rhythm, lungs clear to auscultation bilaterally, abdomen soft, nontender, nondistended, decreased range of motion of right lower extremity at the hip secondary to pain, no surrounding erythema or drainage from surgical site Psych Mental Status: mental status grossly normal Speech and Movement: speech and movement normal Mood: congruent mood Affect: normal affect DS: Data Vitals/I&O Vitals and I&O: Vital Signs Temperature 99.5 F 05/08/24 07:41 Temperature Source Temporal Artery Scan 05/08/24 07:41 Pulse 79 05/08/24 07:41 Pulse Rhythm Regular 05/04/24 17:04 Pulse 83 05/04/24 16:36 Respiratory Rate 14 05/08/24 07:41 Respiratory Effort Normal, Non-Labored 05/04/24 17:04 Respiratory Depth Normal 05/04/24 17:04 Respiratory Pattern Normal 05/04/24 17:04 Blood Pressure 177/55 H 05/08/24 07:41 Blood Pressure Mean 106 05/04/24 16:36 Blood Pressure Position Sitting 05/03/24 21:40 Pulse Oximetry 97 05/08/24 07:41 Respiratory End-tidal CO2 33 05/04/24 16:36 Oxygen Delivery Method Room Air 05/08/24 07:41 Oxygen Flow Rate 0 05/08/24 07:41 Pain Level 0 05/08/24 07:41 Comment RN notified of BP 05/08/24 07:41 Comment pt in NAD 05/04/24 10:46 Intake & Output 05/07/24 05/08/24 05/08/24 17:59 05:59 17:59 Intake Total 1120 / 1120 450 / 1570 Output Total 700 / 700 Balance 1120 / 1120 -250 / 870 Weight 177 lb 11.081 oz Intake: IV 1000 / 1000 10 / 1010 Oral 120 / 120 440 / 560 Output: Urine 700 / 700 Other: Urine Color Straw Yellow Urine Appearance Clear Clear Urine Odor None Comment pt voided x1 700 total, some urine in commode from prior void Stool Size Large Stool Characteristics Formed Data Completed and Pending Labs on day of discharge: Labs from last 24 hours 05/07/24 13:32 Sodium 135 L Potassium 5.0 Chloride 101 Carbon Dioxide 27.4 Anion Gap 6.6 BUN 56 H Creatinine 1.5 H Est GFR (CKD-EPI 2020) 35.23 Glucose 202 H Calcium 9.1 PFSH All Active Problems (Updated 05/06/24 @ 18:02 by Joey Bush MD) Advance care planning (Acute) Osteoporosis (Chronic) Closed intertrochanteric fracture of right hip (Acute) DVT prophylaxis (Acute) CKD stage 3a, GFR 45-59 ml/min (Acute) Closed hip fracture (Acute) Iron deficiency anemia (Acute) Hypoglycemia due to insulin (Acute) Hyperglycemia (Acute) Skin ulcer of left ankle (Acute) Atherosclerosis of artery of both lower extremities (Acute) On deep vein thrombosis (DVT) prophylaxis (Acute) Intertrochanteric fracture of left hip (Acute 05/22/23) Diabetes mellitus with foot ulcer due to multiple causes (Acute) Contusion of left great toe with damage to nail (Acute) Cellulitis (Acute) Dystrophia unguium (Acute) Asymmetrical sensorineural hearing loss (Acute) S/P LORETTA-BSO (Acute) Insomnia (Acute) Renal insufficiency (Chronic) CTS (carpal tunnel syndrome) (Acute) Ventricular arrhythmia (Acute) Spinal stenosis, lumbar (Acute) spinal fusion L4/5 Degenerative joint disease of spine (Acute) Loss of balance (Acute) GERD (gastroesophageal reflux disease) (Chronic) Osteoarthritis of fingers of both hands (Acute) Actinic keratoses (Acute) Urinary incontinence (Acute) with recurrent UTIs ICD (implantable cardioverter-defibrillator) in place (Acute 11/13/15) Med[employer] John II VR, single lead [id number], [facility] [place] 07/01/2009 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) History of sudden cardiac arrest (06/21/09) Surgical History S/P CABG (coronary artery bypass graft) (11/13/15) History of cataract surgery Hx of cholecystectomy H/O breast biopsy History of bilateral salpingo-oophorectomy (BSO) History of total abdominal hysterectomy Family History Father Heart disease Hypertension Mother Diabetes Heart disease Hypertension Social History Smoking/Tobacco Use Status: Former Tobacco Use Smoking risk assessment performed?: Yes Alcohol Intake: current Alcohol Intake frequency: holidays/special occasions only Alcohol type: wine Drug use: Never Household members: none Housing: house What is your relationship status?: Panel score (0-1 are the most socially isolated patients): 0 Do you feel safe at home: Yes Do you feel safe in your relationship?: Yes Additional Social history: Lives alone in [place] in [facility], but supportive. Two daughters in the region. Time Spent with Patient Time Spent with Patient: <45 minutes Time was spent: preparing to see the patient(eg.review tests), obtaining and/or reviewing separately otained hiistory, ordering medications,tests, procedures, referring, communicating with other health patient care director, indepentently interpreting results, counseling the patient and care coordination
--- NOTE | 2024-05-08 10:08 | PDOC.HHF2F ---
Home Health Referral Home Health Orders Clinical synopsis of why skilled professionals are needed: Right hip fracture Registered Nurse: Check all that apply Assess for exacerbation of medical condition, instruct patient/caregivers on signs and symptoms to report for early detection: Ordered Physical Therapist: Check all that apply Increase strength & endurance for safe mobility at home: Ordered To design/establish home maintenance program: Ordered Fall reduction therapy program for patient with history of frequent falls: Ordered Home safety evaluation and teaching/gait training including stair management (if applicable): Ordered Occupational Therapist: Evaluate and treat for patient unable to perform ADL/IADL/self-care: Ordered Venetian Blind Mechanic: Assist with community resources: Ordered Assist with termite treater helper care planning: Ordered Home Bound Status Requires the aid of supportive device (check all that apply): Walker Encounter Date and Reason: I certify that a FTF encounter for this patient was performed on May 08, 2024 and that such encounter was related to the primary reason the patient requires home health services. The encounter was conducted in the following manner: By me as the certifying physician, CASE MANAGEMENT COORDINATOR, PA or By an inpatient physician, CASE MANAGEMENT COORDINATOR or PA during an inpatient stay who communicated findings to me, Certification And Authentication I certify that I composed the above information based on my clinical judgment relating to this patient's medical condition and, if applicable, clinical findings communicated to me by the NPP or inpatient physician who performed the FTF encounter. Name of Provider that will be monitoring home health services: Vinayak Downs
--- NOTE | 2024-05-08 12:41 | PDOC.CMDIS ---
Date of service: 05/08/24 Time of Service: 12:41 LACE Index Scoring Tool Questions: Length of Stay (in days): 4 - 6 Was the patient admitted via the E.D.?: Yes Comorbidities: Diabetes w/o Complication, Any Tumor and Liver or Renal Disease E.D. Visits: 2 Answers: Total Score: 14 Risk of Readmission: High Risk Care Management Discharge Plan Reason for Hospitalization: right hip fracture Discharge Plan: Liane will be discharged to her daughter's home in [place]. She will have new home health PT and will follow up with her orthopedic surgeon. Liane will transport with her daughter via private vehicle. Patient/Family Education Needs: Review discharge instructions, discuss Ask Me Three Services Needed at Discharge: Home Health Care Services SDOH Health Related Social Needs: No Data to Display
--- NOTE | 2024-05-08 13:51 | CHAPLAIN ---
I visited with Liane this morning, she was anticipating being discharged later in the day. Liane is a retired [employer] resident living in [place], where she grew up. She said her daughter called recently to offer Liane to come and live with her and her in [facility], with adult granddaughters living nearby. 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 She took this as a sign to move to her daughter. Her family has been very supportive in helping her move out of her apartment and she goes to her daughter's when she's discharged later today. She is looking forward to the move, and also knows she'll miss parts of living independently in [facility].
== END 2024-05-08 13:35 | disposition home health service (06) | DRG 481 ==
LOC: ER 05-04 01:25 → EDHOLD 05-04 01:33 → MS 05-04 14:02
PROVIDERS: Family Medicine; Hospitalist; Student in an Organized Health Care Education/Training Program; Admitting Provider Family Medicine; Emergency Provider Emergency Medicine Emergency Medical Services; PCP Family Medicine; Visit Provider Family Medicine
PROC: 0QS636Z Reposition Right Upper Femur with Intramedullary Internal Fixation Device, Percutaneous Approach (ICD-10-PCS; CPT 27245; principal; 2024-05-04 13:30)
DX: I47.29 Other ventricular tachycardia; S72.141A Displaced intertrochanteric fracture of right femur, initial encounter for closed fracture; N17.9 Acute kidney failure, unspecified; Z95.810 Presence of automatic (implantable) cardiac defibrillator; E10.22 Type 1 diabetes mellitus with diabetic chronic kidney disease; E10.43 Type 1 diabetes mellitus with diabetic autonomic (poly)neuropathy; W01.0XXA Fall on same level from slipping, tripping and stumbling without subsequent striking against object, initial encounter; I12.9 Hypertensive chronic kidney disease with stage 1 through stage 4 chronic kidney disease, or unspecified chronic kidney disease; N18.31 Chronic kidney disease, stage 3a; F32.A Depression, unspecified; I25.10 Atherosclerotic heart disease of native coronary artery without angina pectoris; D50.9 Iron deficiency anemia, unspecified; M81.0 Age-related osteoporosis without current pathological fracture; G47.00 Insomnia, unspecified; I70.203 Unspecified atherosclerosis of native arteries of extremities, bilateral legs; Z98.1 Arthrodesis status; K21.9 Gastro-esophageal reflux disease without esophagitis; E10.65 Type 1 diabetes mellitus with hyperglycemia
CPT/HCPCS: 27245; 00123; 36415; 36416; 80048; 80053; 82947; 82962; 86850; 86900; 86901; 93005; 96365; 96375; 96376; 97110; 97161; 97530; 99223; 99285; 71045; 73501; 73502; 83036; 83735; 84484; 85025; 85610; 85730; 93010; 99232; 99233; 99239; J0131; J0690; J1100; J1815; J2270; J2371; J2405; J2704

== ENCOUNTER 2024-06-04 15:38 | Outpatient (CLI) | payer MEDICARE, BC, SELFPAY ==
--- NOTE | 2024-06-04 10:31 | DI.RAD_ITS ---
Exam(s) XR HIP RT AP LAT ONLY EXAM: XR HIP RT AP LAT ONLY INDICATION: F/U FRACTURE. COMPARISON: CR XR HIP LT AP LAT ONLY from 04/17/2024 XA XR HIP RT IN OR from 05/04/2024 TECHNIQUE: 2D digital imaging was performed. Two views. FINDINGS: Stable fracture and hardware alignment. No new abnormalities. DATA REPOSITORY: RADIATION DOSE DELIVERED:
== END 2024-06-04 15:39 | disposition home or self-care (01) ==
LOC: DIORS 15:39
PROVIDERS: PCP Family Medicine; Referring Provider Family Medicine; Visit Provider Student in an Organized Health Care Education/Training Program
DX: S72.141D Displaced intertrochanteric fracture of right femur, subsequent encounter for closed fracture with routine healing; X58.XXXD Exposure to other specified factors, subsequent encounter
CPT/HCPCS: 99024; 73502

== ENCOUNTER 2024-07-05 22:14 | Outpatient (REF) | payer MEDICARE, BC, SELFPAY | END 2024-07-05 22:15 | disposition home or self-care (01) | LOC: NCHCN 22:14 | PROVIDERS: PCP Family Medicine; Visit Provider Family Medicine | DX: R30.0 Dysuria (principal) | CPT/HCPCS: 87077; 87086; 87186 ==

== ENCOUNTER 2024-07-09 15:29 | Outpatient (CLI) | payer MEDICARE, BC, SELFPAY ==
--- NOTE | 2024-07-09 10:15 | DI.RAD_ITS ---
Exam(s) XR HIP RT AP LAT ONLY EXAM: XR HIP RT AP LAT ONLY CLINICAL HISTORY: F/U R FEMUR FX. TECHNIQUE: 2D digital imaging was performed. Two views COMPARISON: CR,XR XR HIP RT COMPLETE AP PELVIS from 05/03/2024 XA XR HIP RT IN OR from 05/04/2024 CR XR HIP RT AP LAT ONLY from 06/04/2024 FINDINGS: BONES: Continued healing of proximal femoral fracture. No acute fracture is present. No bony destruc tive lesion is seen. Stable alignment proximal femoral hardware. JOINTS: No dislocation present. Hip joint space is maintained. Mild periarticular spurring. SOFT TISSUE: Janki vascular calcifications. IMPRESSION: Stable fracture and hardware alignment. DATA REPOSITORY: RADIATION DOSE DELIVERED:
== END 2024-07-09 15:30 | disposition home or self-care (01) ==
LOC: DIORS 15:30
PROVIDERS: PCP Family Medicine; Referring Provider Family Medicine; Visit Provider Student in an Organized Health Care Education/Training Program
DX: S72.141D Displaced intertrochanteric fracture of right femur, subsequent encounter for closed fracture with routine healing (principal); X58.XXXD Exposure to other specified factors, subsequent encounter; L97.329 Non-pressure chronic ulcer of left ankle with unspecified severity; I70.203 Unspecified atherosclerosis of native arteries of extremities, bilateral legs; E11.621 Type 2 diabetes mellitus with foot ulcer; L97.509 Non-pressure chronic ulcer of other part of unspecified foot with unspecified severity; E11.610 Type 2 diabetes mellitus with diabetic neuropathic arthropathy; L84 Corns and callosities; L60.2 Onychogryphosis; R60.0 Localized edema; I83.93 Asymptomatic varicose veins of bilateral lower extremities; L65.9 Nonscarring hair loss, unspecified; L85.8 Other specified epidermal thickening; I73.89 Other specified peripheral vascular diseases
CPT/HCPCS: 11719; 99024; 73502

== ENCOUNTER 2024-09-05 01:07 | Outpatient (CLI) | payer MEDICARE, BC, SELFPAY ==
--- NOTE | 2024-09-05 | DI.DEXA_ITS ---
Exam(s) XR DEXA BONE DENSITY W/WO SHYAM EXAM: XR DEXA BONE DENSITY W/WO SHYAM CLINICAL HISTORY: Age-related osteoporosis wo current pathological fx, M81.0 TECHNIQUE: COMPARISON: DX DEXA BONE DENSITY WITH SHYAM from 07/17/2013 FINDINGS: Lateral Spine Image: Unremarkable. No compression deformities identified. Left forearm: Total T-Score: -3.5. This compares to -2.9 on the prior examination. Total Z-Score: -0.6 T- and Z-scores: Findings are consistent with osteoporosis. Lumbar Spine: Total T-Score: 0.5. This compares to 0.0 on the prior examination. Total Z-Score: 3.1 T- and Z-scores: Within normal limits. IMPRESSION: Osteoporosis is again seen in the left forearm.
== END 2024-09-05 01:27 ==
LOC: DI 01:07
PROVIDERS: PCP Family Medicine; Visit Provider Family Medicine
DX: M81.0 Age-related osteoporosis without current pathological fracture (principal)
CPT/HCPCS: 77080

== ENCOUNTER 2025-01-24 13:42 | Outpatient (REF) | payer MEDICARE, BC, SELFPAY ==
[2025-01-24 15:45] LABS: HCT 39.0 % (36.0-46.0); HGB 12.8 g/dL (11.2-15.7); MCH 28.8 pg (27.0-33.0); MCHC 32.8 % (32.0-36.0); MCV 88 fL (80-95); MPV 11.1 fL (8.0-11.0); Platelet Count 240 10^3/uL (130-400); RBC 4.44 10^6/uL (3.93-5.22); RDW 12.8 % (11.7-14.6); RDW-SD 41.1 fL; WBC 10.00 10^3/uL (4.4-10.8)
[2025-01-24 15:55] LABS: ALT 23 U/L (14-59); AST 20 U/L (15-37); Albumin 3.6 g/dL (3.4-5.0); Alkaline Phosphatase 126 U/L (46-116); Anion Gap 6.8 mmol/L (3-11); BUN 32 mg/dL (7-18); Bilirubin, Total 0.5 mg/dL (0.2-1.0); CO2 32.2 mmol/L (21.0-32.0); Calcium 9.2 mg/dL (8.5-10.1); Chloride 100 mmol/L (98-107); Estimated GFR 35.01 (mL/min/1.73m2); Glucose 73 mg/dL (74-106); Potassium 4.6 mmol/L (3.5-5.1); Sodium 139 mmol/L (136-145); Total Protein 7.0 g/dL (6.4-8.2)
== END 2025-01-24 13:43 | disposition home or self-care (01) ==
LOC: NCHCN 13:42
PROVIDERS: PCP Family Medicine; Visit Provider Family Medicine
DX: E13.9 Other specified diabetes mellitus without complications (principal)
CPT/HCPCS: 80053; 85027